=== PATIENT | male | born 1945 | race Caucasian/White ===

== ENCOUNTER → 2018-02-03 08:50 | Outpatient (CLI) | payer MEDICARE, OTHER, MEDICAID, SELFPAY | PROVIDERS: PCP Family Medicine; Visit Provider Surgery | DX: R68.89 Other general symptoms and signs (principal); Z93.1 Gastrostomy status; J44.9 Chronic obstructive pulmonary disease, unspecified; Z87.891 Personal history of nicotine dependence; I10 Essential (primary) hypertension | CPT/HCPCS: 99213 ==

== ENCOUNTER → 2018-03-02 08:01 | Outpatient (BNVA) | payer MEDICARE, OTHER, SELFPAY | PROVIDERS: PCP Family Medicine; Visit Provider Urology | DX: N40.1 Benign prostatic hyperplasia with lower urinary tract symptoms (principal); R39.198 Other difficulties with micturition; Z43.0 Encounter for attention to tracheostomy; Z93.1 Gastrostomy status | CPT/HCPCS: 99213 ==

== ENCOUNTER 2018-03-04 10:55 | Outpatient (CLI) | payer MEDICARE, OTHER, SELFPAY ==
[2018-03-04 12:49] LABS: Abs Immature Grans 0.01 k/cumm (0.0-0.09); Absolute Basophil Count 0.07 k/cumm (0.0-0.2); Absolute Eosinophil Count 0.19 k/cumm (0.0-0.7); Absolute Lymphocyte Count 0.76 k/cumm (1.2-3.4); Absolute Monocyte Count 0.72 k/cumm (0.11-0.7); Absolute Neutrophil Count 5.49 k/cumm (1.2-6.7); Eosinophils % 2.6; HCT 38.4 % (40.0-50.0); Immature Grans % 0.1; Lymphocytes % 10.5; Mean Corp. HGB Concentration 31.3 g/dL (32.0-36.0); Mean Corpuscular Hemoglobin 28.2 pg (27.0-33.0); Mean Corpuscular Volume 90.1 fL (80-95); Mean Platelet Volume 11.6 fL (8.0-11.0); Monocytes % 9.9; Neutrophils % 75.9; Platelet Count 227 x1000/uL (130-400); RBC 4.26 m/cumm (4.50-6.00); RBC Distribution Width 15.8 % (11.8-14.1); White Blood Cell Count 7.24 k/cumm (4.4-10.8)
[2018-03-04 13:12] LABS: Iron 22 ug/dL (50-175)
[2018-03-04 13:31] LABS: ALT 26 U/L (12-78); AST 27 U/L (15-37); Albumin 3.3 g/dL (3.4-5.0); Alkaline Phosphatase 107 U/L (46-116); BUN 21 mg/dL (7-18); Bilirubin, Total 0.3 mg/dL (0.2-1.0); CREATININE 0.64 mg/dL (0.70-1.30); Calcium 8.4 mg/dL (8.5-10.1); Chloride 98 mmol/L (98-107); Ferritin 75 ng/mL (8-388); Glucose 99 mg/dL (70-100); Magnesium 2.1 mg/dL (1.8-2.4); Potassium 4.2 mmol/L (3.5-5.1); Sodium 137 mmol/L (136-145); Total Protein 6.8 g/dL (6.4-8.2); Vitamin B12 879 pg/mL (193-986)
--- NOTE | 2018-05-07 15:44 | RESPIRATORY ---
05/07/18-Left a VM message on Pt's home phone to f/u to see if secretions are loosening up as Pt saw TAMEKA Galarza at [facility] last week and discussed taking in more free fluid through his G-Tube, using a humidifier, wearing a bib over his stoma and wearing the trach mist collar during the day vs. only at night.
== END 2018-03-04 11:15 ==
PROVIDERS: PCP Family Medicine; Visit Provider Family Medicine
DX: T14.8XXA Other injury of unspecified body region, initial encounter (principal); Z98.890 Other specified postprocedural states; D64.9 Anemia, unspecified
CPT/HCPCS: 36415; 80053; 82607; 82728; 83540; 83735; 85025

== ENCOUNTER 2018-05-22 20:06 | Emergency (ER) | payer MEDICARE, OTHER, MEDICAID, SELFPAY ==
[2018-05-22 20:14] VITALS: BP 154/97; PULSE 80; RESP 18; TEMP 36.5; O2SAT 97
--- NOTE | 2018-05-22 20:20 | ED.GENADUL_ITS ---
Discharge Plan Disposition Patient Disposition: HOME Condition: Good Discharge Details Chief Complaint: GenMedical Clinical Impression: Tracheostomy complication, unspecified Primary Care Provider: Jackie Prasad ED Provider: Emanuel Ramirez Mcalpin Meds and New Rx's Prescriptions: Continue alfuzosin [Uroxatral] 10 mg tablet extended release 24 hr 10 mg PO DAILY Qty: 90 RF: 3 polyvinyl alcohol [Artificial Tears (polyvin alc)] 15 ML drops 1 drp OU PRN RF: 0 levothyroxine [Synthroid] 112 MCG tablet 112 mcg PO DAILY Qty: 30 RF: 3 melatonin 3 MG tablet 3 mg PO HS Qty: 90 RF: 2 ipratropium-albuterol 3 ML solution for nebulization 0.5 mg IN TID PRNQty: 3 RF: 3 citalopram 20 MG tablet 40 mg PO DAILY RF: 0 ERYTRHOMYCIN OP OIN RF: 0 ferrous sulfate 220 mg (44 mg iron)/5 mL solution 330 mg Feeding Tube BID Qty: 473 RF: 5 ropinirole 1 mg tablet 1 mg PO QID Qty: 120 RF: 2 ranitidine HCl 15 mg/mL syrup 150 mg GT DAILY Qty: 300 RF: 3 acetaminophen [Tylenol Extra Strength] 500 mg tablet 1,000 mg PO HS PRNRF: 0 gabapentin 300 mg capsule 300 mg PO HS Qty: 30 RF: 2 rosuvastatin [Crestor] 40 MG tablet 40 mg PO DAILY RF: 0 Discharge Instructions Additional Instructions: Please call the ENT clinic at [facility] Thursday for an appointment to have your TEP replaced. Return to emergency department if you have fever, cough , difficulty breathing. Referrals: [facility] [Provider Group] (ENT Clinic) Medical Decision Making Patient here after he inadvertently pulling out his TEP. He has no bleeding. He has no difficulty breathing. Saturations are normal. I reviewed his records from [facility]. I spoke and discussed his case with the ENT physician on-call at [facility]. Nothing emergent needs to be done this weekend. Patient can call for an appointment on Thursday to be seen by speech pathology and have a new TEP placed. Return to ED if he develops fever, difficulty breathing, other concerns. Continue to use G-tube and remain n.p.o. as before. Medical Records Medical records reviewed: Yes I reviewed the patient's medical records. HPI General Mode of arrival: ambulatory . Date/Time Provider Initiated Documentation: 05/22/18 20:12 . Limitations to Documentation: no limitations . Information obtained by: patient and old records reviewed . HPI Narrative: Patient presents to ED after accidentally pulling out his tracheo -esophageal prosthesis. He is having no difficulty breathing. There is no significant bleeding. This has been in for some time and is changed about every 6 months by speech pathology at [facility]. He has not previously had any incidents like this. It was not sure what to do and came in for evaluation. Related Data Home Medications Medication Instructions Recorded Confirmed polyvinyl alcohol [Artificial 1 drp OU PRN 11/18/12 05/22/18 Tears (polyvin alc)] levothyroxine [Synthroid] 112 mcg PO DAILY #30 tab 04/10/17 05/22/18 rosuvastatin [Crestor] 40 mg PO DAILY 08/11/17 05/22/18 melatonin 3 mg PO HS #90 tab-cap 08/13/17 05/22/18 ipratropium-albuterol 0.5 mg IN TID PRN #3 box 01/11/18 05/22/18 Erytrhomycin Op Oin 02/05/18 04/07/18 citalopram 40 mg PO DAILY tab-cap 02/05/18 05/22/18 ferrous sulfate 220 mg (44 mg 330 mg FEEDING TUBE BID #473 ml 02/23/18 05/22/18 iron)/5 mL oral solution ropinirole 1 mg tablet 1 mg PO QID #120 tab-cap 03/01/18 05/22/18 alfuzosin ER 10 mg tablet,extended 10 mg PO DAILY #90 tab-cap 03/02/18 05/22/18 release 24 hr ranitidine 15 mg/mL syrup 150 mg GT DAILY #300 ml 03/24/18 05/22/18 acetaminophen 500 mg tablet 1,000 mg PO HS PRN tab 04/05/18 05/22/18 gabapentin 300 mg capsule 300 mg PO HS #30 cap 04/20/18 05/22/18 Previous Rx's Medication Instructions Recorded levothyroxine [Synthroid] 112 mcg PO DAILY #30 tab 04/10/17 melatonin 3 mg PO HS #90 tab-cap 08/13/17 ferrous sulfate 220 mg (44 mg 330 mg FEEDING TUBE BID #473 ml 02/23/18 iron)/5 mL oral solution ropinirole 1 mg tablet 1 mg PO QID #120 tab-cap 03/01/18 alfuzosin ER 10 mg tablet,extended 10 mg PO DAILY #90 tab-cap 03/02/18 release 24 hr ranitidine 15 mg/mL syrup 150 mg GT DAILY #300 ml 03/24/18 gabapentin 300 mg capsule 300 mg PO HS #30 cap 04/20/18 Allergies Allergy/AdvReac Type Severity Reaction Status Date / Time pollen extracts Allergy Mild Unverified 05/22/18 20:17 Tetracyclines Allergy Unknown SKIN RASH Unverified 05/22/18 20:17 General Stated Complaint: GenMedical CHER: 4 Review of Systems Constitutional Denies chills and Denies fever(s) ENT Denies dysphagia, Denies neck pain and Denies odynophagia Cardiovascular Denies dyspnea Respiratory Denies cough and Denies dyspnea Gastrointestinal Denies dysphagia and Denies odynophagia Musculoskeletal Denies neck pain PFSH CAD (coronary artery disease) (Chronic) Alcohol abuse (Inactive) Tobacco use (Inactive) Anxiety COPD (chronic obstructive pulmonary disease) Depression Hyperlipemia Hypertension Hypothyroidism Laryngeal cancer Post herpetic neuralgia Colonoscopy - MAC (12/22/16) EGD - MAC (07/06/17) PROCEDURES Medical History CAD (coronary artery disease) (Chronic) Alcohol abuse (Inactive) Tobacco use (Inactive) Anxiety COPD (chronic obstructive pulmonary disease) Depression Hyperlipemia Hypertension Hypothyroidism Laryngeal cancer Post herpetic neuralgia Social History Smoking/Tobacco Use Status: Former Tobacco Use Surgical History Colonoscopy - MAC (12/22/16) EGD - MAC (07/06/17) PROCEDURES Social History Smoking/Tobacco Use Status: Former Tobacco Use Exam Const General: cooperative, comfortable and no acute distress Orientation: alert and oriented x3 HENMT Head: normocephalic and atraumatic Neck Neck: full ROM and supple Other: Tracheostomy stoma present without bleeding. Minimal secretions present. Resp Effort & Inspection: normal respiratory effort Neuro General: alert, oriented x3, no focal motor deficits and CN's II-XI intact bilaterally Course Vital Signs Temperature 97.7 F 05/22/18 20:14 Pulse 80 05/22/18 20:14 Respiratory Rate 18 05/22/18 20:14 Blood Pressure 154/97 H 05/22/18 20:14 Pulse Oximetry 97 05/22/18 20:14 Temperature 97.7 F 05/22/18 20:14 Temperature Source Temporal Artery Scan 05/22/18 20:14 Pulse 80 05/22/18 20:14 Respiratory Rate 18 05/22/18 20:14 Respiratory Effort Non-Labored 05/22/18 20:14 Blood Pressure 154/97 H 05/22/18 20:14 Pulse Oximetry 97 05/22/18 20:14 Oxygen Delivery Method Room Air 05/22/18 20:14 Oxygen Flow Rate 0 05/22/18 20:14 Pain Level 0 05/22/18 20:14
[2018-05-22 21:19] VITALS: BP 154/97; PULSE 80; RESP 18; TEMP 36.5; O2SAT 97
== END 2018-05-22 21:20 | disposition home or self-care (01) ==
PROVIDERS: Emergency Provider Emergency Medicine; PCP Family Medicine
DX: J95.03 Malfunction of tracheostomy stoma (principal); C32.9 Malignant neoplasm of larynx, unspecified; Z93.0 Tracheostomy status; Z93.1 Gastrostomy status; J44.9 Chronic obstructive pulmonary disease, unspecified; Z87.891 Personal history of nicotine dependence; I10 Essential (primary) hypertension
CPT/HCPCS: 99283; 99282

== ENCOUNTER 2018-05-27 12:42 | Emergency (ER) | payer MEDICARE, MEDICAID, OTHER, SELFPAY ==
[2018-05-27 13:01] VITALS: BP 161/91; PULSE 95; TEMP 36.9; O2SAT 95
--- NOTE | 2018-05-27 13:29 | DI.RAD_ITS ---
SYMPTOMS/DIAGNOSIS: KNOWN PNEUMONIA, CONTINUED COUGH CHEST X-RAY, PORTABLE AP VIEW: Comparison is 12/09/17. The heart size is within normal limits. There is calcification and tortuosity of the thoracic aorta. There is an infiltrate seen in the right lower lobe. There are increased lung markings seen in the left lung base. There is underlying pulmonary fibrosis. No gross effusions or pneumothoraces are identified. The bones appear intact. IMPRESSION: Bilateral basilar pneumonia.
--- NOTE | 2018-05-27 13:59 | NUR.NOTE ---
Nursing Note: RT in patient's room suctioning at this time. no acute resp distress
[2018-05-27 14:00] VITALS: RESP 22; O2SAT 96
--- NOTE | 2018-05-27 15:21 | ED.GENADUL_ITS ---
Discharge Plan Disposition Patient Disposition: HOME Condition: Good Discharge Details Chief Complaint: RespSymp Clinical Impression: History of radical laryngectomy, Complication of tracheostomy Primary Care Provider: Jackie Prasad ED Provider: Francisco Lindsey Home Meds and New Rx's Prescriptions: No Action alfuzosin [Uroxatral] 10 mg tablet extended release 24 hr 10 mg PO DAILY Qty: 90 RF: 3 polyvinyl alcohol [Artificial Tears (polyvin alc)] 15 ML drops 1 drp OU PRN RF: 0 levothyroxine [Synthroid] 112 MCG tablet 112 mcg PO DAILY Qty: 30 RF: 3 melatonin 3 MG tablet 3 mg PO HS Qty: 90 RF: 2 ipratropium-albuterol 3 ML solution for nebulization 0.5 mg IN TID PRNQty: 3 RF: 3 citalopram 20 MG tablet 40 mg PO DAILY RF: 0 ERYTRHOMYCIN OP OIN RF: 0 ferrous sulfate 220 mg (44 mg iron)/5 mL solution 330 mg Feeding Tube BID Qty: 473 RF: 5 ropinirole 1 mg tablet 1 mg PO QID Qty: 120 RF: 2 ranitidine HCl 15 mg/mL syrup 150 mg GT DAILY Qty: 300 RF: 3 acetaminophen [Tylenol Extra Strength] 500 mg tablet 1,000 mg PO HS PRNRF: 0 gabapentin 300 mg capsule 300 mg PO HS Qty: 30 RF: 2 rosuvastatin [Crestor] 40 MG tablet 40 mg PO DAILY RF: 0 Discharge Instructions Additional Instructions: Please continue to use your humidifier. Use it every night, and that every 4-6 hours at home. If you notice any return of the collections of secretions please return immediately to have these removed if you do not feel comfortable removing them yourself. Please follow-up with your paint striping machine operator as soon as possible for reassessment. if you notice any worsening of your symptoms, or any new symptoms such as vomiting, diarrhea, fever, chills, shortness of breath, chest pain, numbness, weakness, or fainting , please return immediately to the emergency department for reevaluation. Please follow up with your primary care provider as soon as possible for reassessment and reevaluation. As always, it was a pleasure participating in your medical care today. Referrals: Jackie Prasad MD [Primary Care Provider] - Discharge Data Discharge Date/Time-TO BE ENTERED AT DEPARTURE: 05/27/18 15:36 Medical Decision Making This is a pleasant 73-year-old male who presents today for evaluation of tracheostomy complication. Patient had a flutter valve placed at [facility] a week ago, and then after it fell out it was replaced again a few days ago. He was diagnosed with pneumonia at that time it started on Augmentin. Systemically he feels that he is doing very well, his cough has been improving with no fever or chills, however he does note some notable hard secretions forming at the site of this open tracheostomy site. Physical exam demonstrates mild crackles in his bases bilaterally, but no other significant abnormalities. The tracheostomy hardened secretions were moistened with saline, and then personally extracted with myself and the respiratory therapist at bedside. A very large hard eschar of secretions were removed from the tracheostomy site. After this the patient had complete resolution of his symptoms. Chest x-ray does show continued pneumonia, however clinically the patient is doing very well with no evidence of tachycardia, hypoxemia, or tachypnea. I feel that he needs to continue on his antibiotic. His main issue was the secretion buildup, and this is been removed and resolved. The patient feels well, and is asking to go home. Patient will be discharged home with close follow-up with his primary care provider. We discussed red flags which to return and the patient understands. I have extensively reviewed the treatment plan and discharge instructions with the patient. I have addressed all patient concerns at this time. The patient was made aware of what symptoms to monitor for that would warrant a return to the emergency department. Discussed the plan with the patient, they demonstrate verbal understanding and agreement with our assessment and plan at this time. X-RAY, PORTABLE AP VIEW: Comparison is 12/09/17. The heart size is within normal limits. There is calcification and tortuosity of the thoracic aorta. There is an infiltrate seen in the right lower lobe. There are increased lung markings seen in the left lung base. There is underlying pulmonary fibrosis. No gross effusions or pneumothoraces are identified. The bones appear intact. IMPRESSION: Bilateral basilar pneumonia. Ordered By: Francisco Lindsey DO CC: HPI General Date/Time Provider Initiated Documentation: 05/27/18 13:13 . HPI Narrative: This is a very pleasant 73-year-old male with a past medical history of COPD, abdominal aneurysm, and throat cancer 10 years ago for which she received radiation at that time, but nothing since then. Unfortunately secondary to this he has had tracheal stenosis, requiring a tracheostomy. Patient has a one-way flutter valve in his trach to prevent aspiration, this was placed at [facility] roughly 1 week ago, unfortunately it fell out and was replaced again 4 days ago. At that time a chest x-ray was performed and there was concern for potential pneumonia, and he was started on Augmentin. Since starting the antibiotic he has been feeling much better however over the last 24-48 hours he has noticed secretions in his upper tracheal area, and has had some difficulty breathing secondary to this. Secretions have hardened, and she has been unable to remove them. Aside for the complication with this the patient denies any other symptoms. He denies any fevers, chills, chest pain, shortness of breath, numbness tingling or weakness. He states that he is actually feeling much better in regards to his lungs with his cough and systemic symptoms after being started on the antibiotic. He denies any other modifying factors. He denies any other complaints at this time. Related Data Home Medications Medication Instructions Recorded Confirmed polyvinyl alcohol [Artificial 1 drp OU PRN 11/18/12 05/22/18 Tears (polyvin alc)] levothyroxine [Synthroid] 112 mcg PO DAILY #30 tab 04/10/17 05/22/18 rosuvastatin [Crestor] 40 mg PO DAILY 08/11/17 05/22/18 melatonin 3 mg PO HS #90 tab-cap 08/13/17 05/22/18 ipratropium-albuterol 0.5 mg IN TID PRN #3 box 01/11/18 05/22/18 Erytrhomycin Op Oin 02/05/18 04/07/18 citalopram 40 mg PO DAILY tab-cap 02/05/18 05/22/18 ferrous sulfate 220 mg (44 mg 330 mg FEEDING TUBE BID #473 ml 02/23/18 05/22/18 iron)/5 mL oral solution ropinirole 1 mg tablet 1 mg PO QID #120 tab-cap 03/01/18 05/22/18 alfuzosin ER 10 mg tablet,extended 10 mg PO DAILY #90 tab-cap 03/02/18 05/22/18 release 24 hr ranitidine 15 mg/mL syrup 150 mg GT DAILY #300 ml 03/24/18 05/22/18 acetaminophen 500 mg tablet 1,000 mg PO HS PRN tab 04/05/18 05/22/18 gabapentin 300 mg capsule 300 mg PO HS #30 cap 04/20/18 05/22/18 Previous Rx's Medication Instructions Recorded levothyroxine [Synthroid] 112 mcg PO DAILY #30 tab 04/10/17 melatonin 3 mg PO HS #90 tab-cap 08/13/17 ferrous sulfate 220 mg (44 mg 330 mg FEEDING TUBE BID #473 ml 02/23/18 iron)/5 mL oral solution ropinirole 1 mg tablet 1 mg PO QID #120 tab-cap 03/01/18 alfuzosin ER 10 mg tablet,extended 10 mg PO DAILY #90 tab-cap 03/02/18 release 24 hr ranitidine 15 mg/mL syrup 150 mg GT DAILY #300 ml 03/24/18 gabapentin 300 mg capsule 300 mg PO HS #30 cap 04/20/18 Allergies Allergy/AdvReac Type Severity Reaction Status Date / Time pollen extracts Allergy Mild Unverified 05/22/18 20:17 Tetracyclines Allergy Unknown SKIN RASH Unverified 05/22/18 20:17 General Stated Complaint: RespSymp CHER: 2 Review of Systems Review of Systems All systems reviewed & are unremarkable except as noted in HPI and below PFSH Social History Smoking/Tobacco Use Status: Former Tobacco Use Exam Narrative Exam Narrative: 1.Const: Well-nourished, Well-developed, appearing stated age 2.Eyes: PERRL, no conjunctival injection, and symmetrical lids. 3.ENT: Atraumatic external nose and ears. Moist MM. Neck: Symmetric, trachea midline, No thyromegaly. Tracheostomy site in place, one with flutter valve in place, notable secretion eschar is present in the trachea, causing minimal obstruction. No active bleeding, no other signs of abnormalities. 4.CVS: +S1/S2, No murmurs or gallops. Peripheral pulses 2+ and equal in all extremities. Brisk capillary refill in all extremities. 5.RESP: Unlabored respiratory effort. Mild crackles in the bases bilaterally. 6.GI: Soft, Nontender/Nondistended, No hepatosplenomegaly. No guarding or rebound. 7.MSK: Normocephalic/Atraumatic, Extremities w/o deformity or ttp No cyanosis or clubbing, Normal movement of all extremities 8.Skin: Warm, Dry. No rashes or lesions. 9.Neuro: manager of radiology II-XII grossly intact. Sensation grossly intact, no focal neurologic deficits. 10.Psych: (AAO) x3. Appropriate mood and affect Course Vital Signs Temperature 36.9 C 05/27/18 13:01 Pulse 95 H 05/27/18 13:01 Blood Pressure 161/91 H 05/27/18 13:01 Pulse Oximetry 95 05/27/18 13:01 Temperature 36.9 C 05/27/18 13:01 Temperature Source Skin 05/27/18 13:01 Pulse 95 H 05/27/18 13:01 Respiratory Rate 22 05/27/18 14:00 Blood Pressure 161/91 H 05/27/18 13:01 Blood Pressure Position Sitting 05/27/18 13:01 Pulse Oximetry 96 05/27/18 14:00 Oxygen Delivery Method Room Air 05/27/18 14:00 Oxygen Flow Rate 0 05/27/18 14:00 Pain Level 4 05/27/18 13:01 Lab/Test Results Lab/Test Results: 05/27/18 14:30 Sputum Sputum Culture - Pending 05/27/18 14:30 Sputum Gram Stain - Pending
[2018-05-27 15:30] VITALS: O2SAT 97
--- NOTE | 2018-05-29 11:32 | W.ED.FU ---
I received sputum culture reported from his recent visit on 05/27/2018 growing few gram-negative rods and MRSA that is sensitive to Bactrim, linezolid and vancomycin. Patient seen on 05/27/[address] Lindsey for tracheostomy plug. Hard secretions were removed from his tracheostomy site. Patient was noted to have significant improvement in the emergency department. He was also noted to have pneumonia on chest x-ray that was previously diagnosed and being [place] with [place] [facility] [place] it was noted that PNA clinically improving on antiobitic. I called and spoke with the marketing analytics analyst termite control servicer at [facility] Dr. Sung and reviewed recent ED medical record with him. He was able to review [facility] [place]. He advised that if patient is clinically improving, he would not recommend starting additional antibiotics at this time. Otherwise, if not improving, he recommended starting bactrim. I called patient at and left voice msg to call ED. I called and left voice msg to call ED.
--- NOTE | 2018-05-29 11:38 | ED.FU.B_ITS ---
I received sputum culture reported from his recent visit on 05/27/2018 growing few gram-negative rods and MRSA that is sensitive to Bactrim, linezolid and vancomycin. Patient seen on 05/27/[address] Lindsey for tracheostomy plug. Hard secretions were removed from his tracheostomy site. Patient was noted to have significant improvement in the emergency department. He was also noted to have pneumonia on chest x-ray that was previously diagnosed and being treated with Augmentin from [facility] [place] - it was noted that PNA clinically improving on antiobitic. I called and spoke with the revenue accountant operational intelligence officer at [facility] Dr. Sung and reviewed recent ED medical record with him. He was able to review [facility] medical record. He advised that if patient is clinically improving, he would not recommend starting additional antibiotics at this time. Otherwise, if not improving, he recommended starting bactrim. I called patient at and left voice msg to call ED. I called and left voice msg to call ED.
--- NOTE | 2018-05-29 11:43 | W.ED.FU ---
Spoke with patient. He notes symptoms much improved. Still has secretions but now much thinner. Plan to start bactrim. Prescription called into pharmacy [facility] in [place]. Patient advised to follow-up with his pcp esper[facility].
--- NOTE | 2018-05-29 11:45 | ED.FU.B_ITS ---
Spoke with patient. He notes symptoms much improved. Still has secretions but now much thinner. Plan to start bactrim. Prescription called into pharmacy [facility] in [place]. Patient advised to follow-up with his pcp esper[facility].
== END 2018-05-27 15:36 | disposition home or self-care (01) ==
PROVIDERS: Emergency Provider Student in an Organized Health Care Education/Training Program; PCP Family Medicine
DX: J95.09 Other tracheostomy complication (principal); J18.9 Pneumonia, unspecified organism; J44.9 Chronic obstructive pulmonary disease, unspecified; Z87.891 Personal history of nicotine dependence
CPT/HCPCS: 87077; 99283; 71045; 87070; 87186; 87205

== ENCOUNTER 2018-06-12 13:46 | Emergency (ER) | payer MEDICARE, OTHER, MEDICAID, SELFPAY ==
[2018-06-12 13:54] VITALS: BP 151/88; PULSE 83; RESP 18; TEMP 37; O2SAT 96
--- NOTE | 2018-06-12 14:06 | ED.GENADUL_ITS ---
Discharge Plan Disposition Patient Disposition: HOME Condition: Improving Discharge Details Chief Complaint: GenMedical Clinical Impression: Malfunction of gastrostomy tube Primary Care Provider: Jackie Prasad ED Provider: Anders Ivy Home Meds and New Rx's Prescriptions: Continued alfuzosin [Uroxatral] 10 mg tablet extended release 24 hr 10 mg PO DAILY Qty: 90 RF: 3 sildenafil [Viagra] 25 mg tablet 25 mg PO DAILY PRN (Reason: sexual activity) Qty: 10 RF: 0 polyvinyl alcohol [Artificial Tears (polyvin alc)] 15 ML drops 1 drp OU PRN RF: 0 melatonin 3 MG tablet 3 mg PO HS Qty: 90 RF: 2 ipratropium-albuterol 3 ML solution for nebulization 0.5 mg IN TID PRNQty: 3 RF: 3 ERYTRHOMYCIN OP OIN RF: 0 ferrous sulfate 220 mg (44 mg iron)/5 mL solution 330 mg Feeding Tube BID Qty: 473 RF: 5 ranitidine HCl 15 mg/mL syrup 150 mg GT DAILY Qty: 300 RF: 3 acetaminophen [Tylenol Extra Strength] 500 mg tablet 1,000 mg PO HS PRNRF: 0 gabapentin 300 mg capsule 300 mg PO HS Qty: 30 RF: 2 citalopram 20 mg tablet 40 mg PO DAILY Qty: 60 RF: 2 levothyroxine [Synthroid] 112 mcg tablet 112 mcg PO DAILY Qty: 30 RF: 3 ropinirole 1 mg tablet 1 mg PO QID Qty: 120 RF: 2 rosuvastatin [Crestor] 40 mg tablet 40 mg PO DAILY Qty: 30 RF: 2 Discharge Instructions Additional Instructions: Follow-up in general surgery clinic on Thursday as planned. Continue all regular medications and tube feedings Medical Decision Making 73-year-old male who is dependent on G-tube for his feeds and lesions. The end of the device was dislodged at home today and he presents to the ED. He has a follow-up planned with Dr. Bal on Thursday Replaced the end of the patients G-tube and successfully flushed with Mariel syringe. Patient stable for discharge with follow-up in surgery clinic on Thursday as planned HPI General Mode of arrival: ambulatory . Date/Time Provider Initiated Documentation: 06/12/18 14:01 . Limitations to Documentation: no limitations . Information obtained by: patient and family . History of Present Illness 73 year old M presents to the emergency department with the chief complaint of Feeding tube Fell off and I am dependent on it, and it has been constant. No relieving factors improve symptom(s), No exacerbating factors reported . Patient notes no other symptoms.. Patient did receive the following treatments prior to arrival, none Related Data Home Medications Medication Instructions Recorded Confirmed polyvinyl alcohol [Artificial 1 drp OU PRN 11/18/12 06/12/18 Tears (polyvin alc)] melatonin 3 mg PO HS #90 tab-cap 08/13/17 06/12/18 ipratropium-albuterol 0.5 mg IN TID PRN #3 box 01/11/18 06/12/18 Erytrhomycin Op Oin 02/05/18 04/07/18 ferrous sulfate 220 mg (44 mg 330 mg FEEDING TUBE BID #473 ml 02/23/18 06/12/18 iron)/5 mL oral solution alfuzosin ER 10 mg tablet,extended 10 mg PO DAILY #90 tab-cap 03/02/18 06/12/18 release 24 hr ranitidine 15 mg/mL syrup 150 mg GT DAILY #300 ml 03/24/18 06/12/18 acetaminophen 500 mg tablet 1,000 mg PO HS PRN tab 04/05/18 06/12/18 gabapentin 300 mg capsule 300 mg PO HS #30 cap 04/20/18 06/12/18 sildenafil 25 mg tablet 25 mg PO DAILY PRN #10 tab 05/28/18 06/12/18 citalopram 20 mg tablet 40 mg PO DAILY #60 tab-cap 06/10/18 06/12/18 levothyroxine 112 mcg tablet 112 mcg PO DAILY #30 tab 06/10/18 06/12/18 ropinirole 1 mg tablet 1 mg PO QID #120 tab-cap 06/10/18 06/12/18 rosuvastatin 40 mg tablet 40 mg PO DAILY #30 tab 06/10/18 06/12/18 Previous Rx's Medication Instructions Recorded melatonin 3 mg PO HS #90 tab-cap 08/13/17 ferrous sulfate 220 mg (44 mg 330 mg FEEDING TUBE BID #473 ml 02/23/18 iron)/5 mL oral solution alfuzosin ER 10 mg tablet,extended 10 mg PO DAILY #90 tab-cap 03/02/18 release 24 hr ranitidine 15 mg/mL syrup 150 mg GT DAILY #300 ml 03/24/18 gabapentin 300 mg capsule 300 mg PO HS #30 cap 04/20/18 sildenafil 25 mg tablet 25 mg PO DAILY PRN #10 tab 05/28/18 citalopram 20 mg tablet 40 mg PO DAILY #60 tab-cap 06/10/18 levothyroxine 112 mcg tablet 112 mcg PO DAILY #30 tab 06/10/18 ropinirole 1 mg tablet 1 mg PO QID #120 tab-cap 06/10/18 rosuvastatin 40 mg tablet 40 mg PO DAILY #30 tab 06/10/18 Allergies Allergy/AdvReac Type Severity Reaction Status Date / Time pollen extracts Allergy Mild Unverified 05/22/18 20:17 Tetracyclines Allergy Unknown SKIN RASH Unverified 05/22/18 20:17 General Stated Complaint: GenMedical CHER: 4 PFS Social History Smoking/Tobacco Use Status: Former Tobacco Use Exam Narrative Exam Narrative: General: patient is pleasant awake alert and oriented x3. Pulmonary:no evidence of respiratory distress, speaking in full sentence Abdomen :G-tube in place, No abdominal tenderness. Psychiatric: Speech fluent, affect normal Course Vital Signs Temperature 37 C 06/12/18 13:54 Pulse 83 06/12/18 13:54 Respiratory Rate 18 06/12/18 13:54 Blood Pressure 151/88 H 06/12/18 13:54 Pulse Oximetry 96 06/12/18 13:54 Temperature 37 C 06/12/18 13:54 Temperature Source Temporal Artery Scan 06/12/18 13:54 Pulse 83 06/12/18 13:54 Respiratory Rate 18 06/12/18 13:54 Respiratory Effort Non-Labored 06/12/18 13:59 Blood Pressure 151/88 H 06/12/18 13:54 Blood Pressure Position Sitting 06/12/18 13:54 Pulse Oximetry 96 06/12/18 13:54 Oxygen Delivery Method Room Air 06/12/18 13:54 Oxygen Flow Rate 0 06/12/18 13:54 Pain Level 0 06/12/18 13:54
== END 2018-06-12 16:49 | disposition home or self-care (01) ==
PROVIDERS: Emergency Provider Emergency Medicine; PCP Family Medicine
DX: K94.23 Gastrostomy malfunction (principal); Z43.1 Encounter for attention to gastrostomy; J44.9 Chronic obstructive pulmonary disease, unspecified; I10 Essential (primary) hypertension
CPT/HCPCS: 99282

== ENCOUNTER → 2018-06-14 12:49 | Outpatient (BNVA) | payer MEDICARE, OTHER, MEDICAID, SELFPAY | PROVIDERS: PCP Family Medicine; Referring Provider Family Medicine; Visit Provider Surgery | DX: K94.23 Gastrostomy malfunction (principal) | CPT/HCPCS: 99213 ==

== ENCOUNTER 2018-06-25 06:10 | Day surgery (SDC) | payer MEDICARE, OTHER, MEDICAID, SELFPAY ==
[2018-06-25 06:34] VITALS: BP 156/96; PULSE 86; RESP 24; TEMP 36.9; O2SAT 92
[2018-06-25] MEDS: Lactated Ringers 1,000 ML 30 ML IV (06:57)
--- NOTE | 2018-06-25 07:14 | DI.RAD_ITS ---
SYMPTOM/DIAGNOSIS: RANDY PLACEMENT C-ARM: Fluoroscopy Time: 19.6 seconds Fluoroscopy was provided in the OR. Please see procedure note for details.
--- NOTE | 2018-06-25 08:00 | W.PM.OP ---
Date of service: 06/25/18 Time of Service: 08:00 Operative Note DATE OF PROCEDURE: 06/25/18 PRE-OP DIAGNOSIS: dysfunctional feeding tube POST-OP DIAGNOSIS: same PROCEDURE: feeding tube exchange over guidewire with radiographic confirmation SURGEON: Elia Mcdonald III ANESTHESIA: local ESTIMATED BLOOD LOSS: 0 COMPLICATIONS: None Implants: Nasim tube Indications: old tube was leaking and dysfunctional Procedure Description: Patient was seen and examined preoperatively and tube was found to be dysfunctional with falls as well as inability to use for feeding purposes. Patient was given the risk benefits and alternatives and consent was obtained. Patient was brought to the operating room placed in the operative table supine fashion. Patient underwent local anesthesia and the area was prepped and draped in a sterile fashion. A thorough timeout was done before procedure started. Tube exchange Patient had the balloon deflated and a guidewire placed to the proximal aspect into the stomach the tube was removed and on removal was revealed that was a PEG tube which required a little more force to remove at the time but the guidewire stayed in place the tube was removed in total and the Nasim tube was placed over the guidewire and into the abdomen the balloon was insufflated with 6 cc of air. The tube itself was then connected to the tubing and a Omnipaque diluted solution was injected under fluoroscopy to confirm that it was in the stomach. Patient tolerated procedure well a thorough debriefing was done post procedure patient was with the PACU and then home upon full recovery from anesthesia. Patient had a significant other that was explained and taught how to use the tube by nursing and myself.
--- NOTE | 2018-06-25 08:10 | W.PM.DSUDISC ---
Discharge Plan Disposition Patient Disposition: HOME Condition: Stable Discharge Details Reason For Visit: placement of feeding tube Attending Provider: Elia Mcdonald III Primary Care Provider: Jackie Prasad Home Meds and New Rx's Prescriptions: Continued alfuzosin [Uroxatral] 10 mg tablet extended release 24 hr 10 mg PO DAILY Qty: 90 RF: 3 sildenafil [Viagra] 25 mg tablet 25 mg PO DAILY PRN (Reason: sexual activity) Qty: 10 RF: 0 melatonin 3 MG tablet 3 mg PO HS Qty: 90 RF: 2 ipratropium-albuterol 3 ML solution for nebulization 0.5 mg IN TID PRNQty: 3 RF: 3 ERYTRHOMYCIN OP OIN RF: 0 ferrous sulfate 220 mg (44 mg iron)/5 mL solution 330 mg Feeding Tube BID Qty: 473 RF: 5 acetaminophen [Tylenol Extra Strength] 500 mg tablet 1,000 mg PO .1600, 2200 PRNRF: 0 gabapentin 300 mg capsule 300 mg PO HS Qty: 30 RF: 2 levothyroxine [Synthroid] 112 mcg tablet 112 mcg PO DAILY Qty: 30 RF: 3 azithromycin 250 mg tablet 250 - 500 mg PO DAILY Qty: 6 RF: 0 ropinirole 1 mg Tablet 1 mg PO .2200 HS RF: 0 ropinirole 1 mg tablet 1 mg PO BID RF: 0 citalopram 20 mg tablet 40 mg PO HS RF: 0 ranitidine HCl 15 mg/mL syrup 2 tsp GT DAILY RF: 0 rosuvastatin [Crestor] 40 mg tablet 40 mg PO .2200 RF: 0 Discharge Instructions Additional Instructions: pt and the significant other was taught haow to use the tube Referrals: Elia Mcdonald III, DO [OSTEOPATHIC DOCTOR] - 06/28/18 10:00 am Activity:: Activity as Tolerated Diet:: As Tolerated Discharge Orders Discharge Orders: Discharge Order (Routine); Ordered 06/25/18 Ordered By: Elia Mcdonald III DS: Diagnosis Discharge Diagnosis (1) Feeding tube dysfunction: Status: Acute
[2018-06-25] MEDS: Omnipaque 300 MG/ML 50 ML BTL (08:13)
== END 2018-06-25 08:47 | disposition home or self-care (01) ==
PROVIDERS: PCP Family Medicine; Visit Provider Surgery
PROC: 0DH63UZ Insertion of Feeding Device into Stomach, Percutaneous Approach (ICD-10-PCS; CPT 43246; principal; 2018-06-25 07:30)
DX: Z43.1 Encounter for attention to gastrostomy (principal); K94.23 Gastrostomy malfunction; Z90.02 Acquired absence of larynx; Z85.21 Personal history of malignant neoplasm of larynx; I10 Essential (primary) hypertension; K21.9 Gastro-esophageal reflux disease without esophagitis; J44.9 Chronic obstructive pulmonary disease, unspecified
CPT/HCPCS: 49450; 76000; C1781; Q9967

== ENCOUNTER 2018-06-26 01:35 | Emergency (ER) | payer MEDICARE, OTHER, MEDICAID, SELFPAY ==
[2018-06-26 01:39] VITALS: BP 165/96; PULSE 70; RESP 20; TEMP 36.5; O2SAT 93
--- NOTE | 2018-06-26 01:52 | DI.RAD_ITS ---
SYMPTOM/DIAGNOSIS: FEEDING TUBE PLACEMENT. SUPINE ABDOMEN: A feeding tube is seen in the upper abdomen. Images were obtained before and after introduction of contrast in to the feeding tube. The exam is somewhat limited by pre-existing contrast in the colon. The post contrast image shows contrast in the stomach and duodenum. There is no gross evidence of extravasation, however, this cannot be entirely excluded on this single AP view.
--- NOTE | 2018-06-26 01:56 | W.ED.GENAD ---
Discharge Plan Disposition Patient Disposition: HOME Condition: Good Discharge Details Chief Complaint: Abd Prob Clinical Impression: Dislodged gastrostomy tube Primary Care Provider: Jackie Prasad ED Provider: Emanuel Ramirez [place] Meds and New Rx's Prescriptions: Continued alfuzosin [Uroxatral] 10 mg tablet extended release 24 hr 10 mg PO DAILY Qty: 90 RF: 3 sildenafil [Viagra] 25 mg tablet 25 mg PO DAILY PRN (Reason: sexual activity) Qty: 10 RF: 0 melatonin 3 MG tablet 3 mg PO HS Qty: 90 RF: 2 ipratropium-albuterol 3 ML solution for nebulization 0.5 mg IN TID PRNQty: 3 RF: 3 ERYTRHOMYCIN OP OIN RF: 0 ferrous sulfate 220 mg (44 mg iron)/5 mL solution 330 mg Feeding Tube BID Qty: 473 RF: 5 acetaminophen [Tylenol Extra Strength] 500 mg tablet 1,000 mg PO .1600, 2200 PRNRF: 0 gabapentin 300 mg capsule 300 mg PO HS Qty: 30 RF: 2 levothyroxine [Synthroid] 112 mcg tablet 112 mcg PO DAILY Qty: 30 RF: 3 azithromycin 250 mg tablet 250 - 500 mg PO DAILY Qty: 6 RF: 0 ropinirole 1 mg Tablet 1 mg PO .2200 HS RF: 0 ropinirole 1 mg tablet 1 mg PO BID RF: 0 citalopram 20 mg tablet 40 mg PO HS RF: 0 ranitidine HCl 15 mg/mL syrup 2 tsp GT DAILY RF: 0 rosuvastatin [Crestor] 40 mg tablet 40 mg PO .2200 RF: 0 Discharge Instructions Additional Instructions: X-ray confirms tube is in correct position. You may begin using it again. Return to ED for problems. Referrals: Jackie Prasad MD [Primary Care Provider] - Medical Decision Making The tract has been long-standing. The Corky-mullins tube itself is new. They brought it in. It has been cleaned. Placed a Denny to keep the tract open while the tube was cleaned. Corky-mullins tube balloon checked and functioning. Tube placed and ballooned blown up without problem. X-ray with contrast ordered to evaluate placement. X-ray with contrast confirms proper placement. Patient discharged home. HPI General Mode of arrival: ambulatory. Date/Time Provider Initiated Documentation: 06/26/18 01:40. Limitations to Documentation: no limitations. Information obtained by: patient. HPI Narrative: Patient presents because his corky-mullins tube came out. He gets tube feeds through this on a regular basis. He has no other complaint of. Related Data Home Medications Medication Instructions Recorded Confirmed melatonin 3 mg PO HS #90 tab-cap 08/13/17 06/26/18 ipratropium-albuterol 0.5 mg IN TID PRN #3 box 01/11/18 06/26/18 Erytrhomycin Op Oin 02/05/18 06/14/18 ferrous sulfate 220 mg (44 mg 330 mg FEEDING TUBE BID #473 ml 02/23/18 06/26/18 iron)/5 mL oral solution alfuzosin ER 10 mg tablet,extended 10 mg PO DAILY #90 tab-cap 03/02/18 06/26/18 release 24 hr acetaminophen 500 mg tablet 1,000 mg PO .1600, 2200 PRN tab 04/05/18 06/26/18 gabapentin 300 mg capsule 300 mg PO HS #30 cap 04/20/18 06/26/18 sildenafil 25 mg tablet 25 mg PO DAILY PRN #10 tab 05/28/18 06/26/18 levothyroxine 112 mcg tablet 112 mcg PO DAILY #30 tab 06/10/18 06/26/18 azithromycin 250 mg tablet 250 - 500 mg PO DAILY #6 tab 06/18/18 06/26/18 citalopram 40 mg PO HS 06/23/18 06/26/18 ranitidine HCl 2 tsp GT DAILY 06/23/18 06/26/18 ropinirole 1 mg PO .2200 HS 06/23/18 06/26/18 ropinirole 1 mg PO BID 06/23/18 06/26/18 rosuvastatin [Crestor] 40 mg PO .2200 06/23/18 06/26/18 Previous Rx's Medication Instructions Recorded melatonin 3 mg PO HS #90 tab-cap 08/13/17 ferrous sulfate 220 mg (44 mg 330 mg FEEDING TUBE BID #473 ml 02/23/18 iron)/5 mL oral solution alfuzosin ER 10 mg tablet,extended 10 mg PO DAILY #90 tab-cap 03/02/18 release 24 hr gabapentin 300 mg capsule 300 mg PO HS #30 cap 04/20/18 sildenafil 25 mg tablet 25 mg PO DAILY PRN #10 tab 05/28/18 levothyroxine 112 mcg tablet 112 mcg PO DAILY #30 tab 06/10/18 azithromycin 250 mg tablet 250 - 500 mg PO DAILY #6 tab 06/18/18 Allergies Allergy/AdvReac Type Severity Reaction Status Date / Time pollen extracts Allergy Mild Verified 06/26/18 01:43 Tetracyclines Allergy Unknown SKIN RASH Verified 06/26/18 01:43 General Stated Complaint: Abd Prob CHER: 3 Review of Systems Constitutional Denies fever(s) Cardiovascular Denies chest pain and Denies dyspnea Respiratory Denies dyspnea Gastrointestinal Denies abdominal pain and Denies vomiting [facility] Social History Smoking/Tobacco Use Status: Former Tobacco Use Exam Const General: cooperative, comfortable and no acute distress Orientation: alert and oriented x3 GI Inspection: non-distended and other (gastrostomy tract in the left upper quadrant, some bleeding.) Palpation: soft, not firm and nontender Skin General skin exam: other (Some erythema and irritation around the gastrostomy site) Course Vital Signs Temperature 97.7 F 06/26/18 01:39 Pulse 70 06/26/18 01:39 Respiratory Rate 20 06/26/18 01:39 Blood Pressure 165/96 H 06/26/18 01:39 Pulse Oximetry 93 L 06/26/18 01:39 Temperature 97.7 F 06/26/18 01:39 Temperature Source Skin 06/26/18 01:39 Pulse 70 06/26/18 01:39 Respiratory Rate 20 06/26/18 01:39 Respiratory Effort Non-Labored 06/26/18 01:42 Blood Pressure 165/96 H 06/26/18 01:39 Blood Pressure Position Sitting 06/26/18 01:39 Pulse Oximetry 93 L 06/26/18 01:39 Oxygen Delivery Method Room Air 06/26/18 01:39 Oxygen Flow Rate 0 06/26/18 01:39
--- NOTE | 2018-06-26 02:03 | ED.GENADUL_ITS ---
Discharge Plan Disposition Patient Disposition: HOME Condition: Good Discharge Details Chief Complaint: Abd Prob Clinical Impression: Dislodged gastrostomy tube Primary Care Provider: Jackie Prasad ED Provider: Emanuel Ramirez [place] Meds and New Rx's Prescriptions: Continued alfuzosin [Uroxatral] 10 mg tablet extended release 24 hr 10 mg PO DAILY Qty: 90 RF: 3 sildenafil [Viagra] 25 mg tablet 25 mg PO DAILY PRN (Reason: sexual activity) Qty: 10 RF: 0 melatonin 3 MG tablet 3 mg PO HS Qty: 90 RF: 2 ipratropium-albuterol 3 ML solution for nebulization 0.5 mg IN TID PRNQty: 3 RF: 3 ERYTRHOMYCIN OP OIN RF: 0 ferrous sulfate 220 mg (44 mg iron)/5 mL solution 330 mg Feeding Tube BID Qty: 473 RF: 5 acetaminophen [Tylenol Extra Strength] 500 mg tablet 1,000 mg PO .1600, 2200 PRNRF: 0 gabapentin 300 mg capsule 300 mg PO HS Qty: 30 RF: 2 levothyroxine [Synthroid] 112 mcg tablet 112 mcg PO DAILY Qty: 30 RF: 3 azithromycin 250 mg tablet 250 - 500 mg PO DAILY Qty: 6 RF: 0 ropinirole 1 mg Tablet 1 mg PO .2200 HS RF: 0 ropinirole 1 mg tablet 1 mg PO BID RF: 0 citalopram 20 mg tablet 40 mg PO HS RF: 0 ranitidine HCl 15 mg/mL syrup 2 tsp GT DAILY RF: 0 rosuvastatin [Crestor] 40 mg tablet 40 mg PO .2200 RF: 0 Discharge Instructions Additional Instructions: X-ray confirms tube is in correct position. You may begin using it again. Return to ED for problems. Referrals: Jackie Prasad MD [Primary Care Provider] - Medical Decision Making The tract has been long-standing. The Corky-mullins tube itself is new. They brought it in. It has been cleaned. Placed a Denny to keep the tract open while the tube was cleaned. Corky-mullins tube balloon checked and functioning. Tube placed and ballooned blown up without problem. X-ray with contrast ordered to evaluate placement. X-ray with contrast confirms proper placement. Patient discharged home. HPI General Mode of arrival: ambulatory . Date/Time Provider Initiated Documentation: 06/26/18 01:40 . Limitations to Documentation: no limitations . Information obtained by: patient . HPI Narrative: Patient presents because his corky-mullins tube came out. He gets tube feeds through this on a regular basis. He has no other complaint of. Related Data Home Medications Medication Instructions Recorded Confirmed melatonin 3 mg PO HS #90 tab-cap 08/13/17 06/26/18 ipratropium-albuterol 0.5 mg IN TID PRN #3 box 01/11/18 06/26/18 Erytrhomycin Op Oin 02/05/18 06/14/18 ferrous sulfate 220 mg (44 mg 330 mg FEEDING TUBE BID #473 ml 02/23/18 06/26/18 iron)/5 mL oral solution alfuzosin ER 10 mg tablet,extended 10 mg PO DAILY #90 tab-cap 03/02/18 06/26/18 release 24 hr acetaminophen 500 mg tablet 1,000 mg PO .1600, 2200 PRN tab 04/05/18 06/26/18 gabapentin 300 mg capsule 300 mg PO HS #30 cap 04/20/18 06/26/18 sildenafil 25 mg tablet 25 mg PO DAILY PRN #10 tab 05/28/18 06/26/18 levothyroxine 112 mcg tablet 112 mcg PO DAILY #30 tab 06/10/18 06/26/18 azithromycin 250 mg tablet 250 - 500 mg PO DAILY #6 tab 06/18/18 06/26/18 citalopram 40 mg PO HS 06/23/18 06/26/18 ranitidine HCl 2 tsp GT DAILY 06/23/18 06/26/18 ropinirole 1 mg PO .2200 HS 06/23/18 06/26/18 ropinirole 1 mg PO BID 06/23/18 06/26/18 rosuvastatin [Crestor] 40 mg PO .2200 06/23/18 06/26/18 Previous Rx's Medication Instructions Recorded melatonin 3 mg PO HS #90 tab-cap 08/13/17 ferrous sulfate 220 mg (44 mg 330 mg FEEDING TUBE BID #473 ml 02/23/18 iron)/5 mL oral solution alfuzosin ER 10 mg tablet,extended 10 mg PO DAILY #90 tab-cap 03/02/18 release 24 hr gabapentin 300 mg capsule 300 mg PO HS #30 cap 04/20/18 sildenafil 25 mg tablet 25 mg PO DAILY PRN #10 tab 05/28/18 levothyroxine 112 mcg tablet 112 mcg PO DAILY #30 tab 06/10/18 azithromycin 250 mg tablet 250 - 500 mg PO DAILY #6 tab 06/18/18 Allergies Allergy/AdvReac Type Severity Reaction Status Date / Time pollen extracts Allergy Mild Verified 06/26/18 01:43 Tetracyclines Allergy Unknown SKIN RASH Verified 06/26/18 01:43 General Stated Complaint: Abd Prob CHER: 3 Review of Systems Constitutional Denies fever(s) Cardiovascular Denies chest pain and Denies dyspnea Respiratory Denies dyspnea Gastrointestinal Denies abdominal pain and Denies vomiting [facility] Social History Smoking/Tobacco Use Status: Former Tobacco Use Exam Const General: cooperative, comfortable and no acute distress Orientation: alert and oriented x3 GI Inspection: non-distended and other (gastrostomy tract in the left upper quadrant, some bleeding.) Palpation: soft, not firm and nontender Skin General skin exam: other (Some erythema and irritation around the gastrostomy site) Course Vital Signs Temperature 97.7 F 06/26/18 01:39 Pulse 70 06/26/18 01:39 Respiratory Rate 20 06/26/18 01:39 Blood Pressure 165/96 H 06/26/18 01:39 Pulse Oximetry 93 L 06/26/18 01:39 Temperature 97.7 F 06/26/18 01:39 Temperature Source Skin 06/26/18 01:39 Pulse 70 06/26/18 01:39 Respiratory Rate 20 06/26/18 01:39 Respiratory Effort Non-Labored 06/26/18 01:42 Blood Pressure 165/96 H 06/26/18 01:39 Blood Pressure Position Sitting 06/26/18 01:39 Pulse Oximetry 93 L 06/26/18 01:39 Oxygen Delivery Method Room Air 06/26/18 01:39 Oxygen Flow Rate 0 06/26/18 01:39
[2018-06-26] MEDS: Omnipaque 350 MG/ML 50 ML BTL IJ (02:33)
--- NOTE | 2018-06-26 02:56 | DI.VRAD_ITS ---
EXAM: XR Abdomen, 1 View EXAM DATE/TIME: 06/26/2018 1:54 AM CLINICAL HISTORY: 73 years old, male; Device placement; Gi device; Other: Gi tube position; Prior surgery; Surgery type: Gi tube placement TECHNIQUE: Frontal supine view of the abdomen/pelvis. COMPARISON: No relevant prior studies available. FINDINGS: Lower thorax: bilateral interstitial pattern at the lung bases. Gastrointestinal tract: See Intraperitoneal Space Finding. Intraperitoneal space: Tubing is seen overlying left hemiabdomen. Dilute contrast is seen in the distribution of the stomach and proximal small bowel. Surgical clips overlying the left hemiabdomen. Bones/joints: Degenerative changes within lumbar spine. IMPRESSION: Oral contrast is seen in the distribution of the stomach and proximal small bowel, no evidence for contrast extravasation. Dictated and Authenticated by: Alvaro Sullivan MD. Ordering:DAMIÁN Castellanos MD
== END 2018-06-26 03:10 | disposition home or self-care (01) ==
PROVIDERS: Emergency Provider Emergency Medicine; PCP Family Medicine
DX: K94.23 Gastrostomy malfunction (principal); Z93.0 Tracheostomy status; J44.9 Chronic obstructive pulmonary disease, unspecified; Z87.891 Personal history of nicotine dependence; I10 Essential (primary) hypertension
CPT/HCPCS: 43762; 74018; Q9967

== ENCOUNTER → 2018-06-28 10:01 | Outpatient (BNVA) | payer MEDICARE, OTHER, MEDICAID, SELFPAY | PROVIDERS: PCP Family Medicine; Referring Provider Family Medicine; Visit Provider Surgery | DX: Z43.1 Encounter for attention to gastrostomy (principal); Z90.02 Acquired absence of larynx; Z85.21 Personal history of malignant neoplasm of larynx | CPT/HCPCS: 99213 ==

== ENCOUNTER 2018-07-01 11:39 | Outpatient (CLI) | payer MEDICARE, OTHER, SELFPAY ==
[2018-07-01 12:44] LABS: HCT 44.2 % (40.0-50.0); HGB 14.2 g/dL (13.5-17.5); Mean Corp. HGB Concentration 32.1 g/dL (32.0-36.0); Mean Corpuscular Hemoglobin 30.5 pg (27.0-33.0); Mean Corpuscular Volume 95.1 fL (80-95); Mean Platelet Volume 11.2 fL (8.0-11.0); Platelet Count 276 x1000/uL (130-400); RBC 4.65 m/cumm (4.50-6.00); RBC Distribution Width 15.4 % (11.8-14.1); White Blood Cell Count 10.01 k/cumm (4.4-10.8)
[2018-07-01 13:28] LABS: ALT 50 U/L (12-78); AST 37 U/L (15-37); Albumin 3.6 g/dL (3.4-5.0); Alkaline Phosphatase 102 U/L (46-116); Anion Gap 4.8 mmol/L (3-11); BUN 27 mg/dL (7-18); Bilirubin, Total 0.3 mg/dL (0.2-1.0); CO2 35.2 mmol/L (21.0-32.0); CREATININE 0.68 mg/dL (0.70-1.30); Chloride 98 mmol/L (98-107); Glucose 92 mg/dL (70-100); Potassium 4.8 mmol/L (3.5-5.1); Sodium 138 mmol/L (136-145); TSH 1.53 uIU/mL (0.358-3.74); Total Protein 7.6 g/dL (6.4-8.2)
== END 2018-07-01 11:59 ==
PROVIDERS: PCP Family Medicine; Visit Provider Family Medicine
DX: E03.9 Hypothyroidism, unspecified (principal); R53.83 Other fatigue
CPT/HCPCS: 36415; 80053; 85027; 84443

== ENCOUNTER 2018-07-12 10:42 | Day surgery (SDC) | payer MEDICARE, OTHER, MEDICAID, SELFPAY ==
--- NOTE | 2018-07-11 15:27 | W.PIPPEYE ---
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 He has undergone approximately 60% tarsorrhaphy in the left eye to protect the ocular surface. He has very little useful vision in the left eye. He has developed a significant nuclear cortical and posterior subcapsular cataract in the right eye with visual acuity of 20/150. He now desires cataract surgery and attempt to improve and maximize his vision. NOTE: The Chief Complaint, HPI, Past Medical History, Past Surgical History, Family History, Social History, Medications, and complete Ophthalmic Exam with detailed Assessment and Plan have already been documented in the patient's outpatient ophthalmic record and are not covered again in detail here. 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) Cortical cataract of right eye (Acute) Nuclear sclerotic cataract of right eye (Acute) Posterior subcapsular age-related cataract, right eye (Acute) CAD (coronary artery disease) (Chronic) Alcohol abuse (Inactive) Tobacco use (Inactive) Anxiety COPD (chronic obstructive pulmonary disease) Depression Hyperlipemia Hypertension Hypothyroidism Laryngeal cancer Post herpetic neuralgia Surgical History History of tarsorrhaphy (Chronic) Status post cataract extraction and insertion of intraocular lens of left eye (Chronic 04/30/12) 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) Colonoscopy - MAC (12/22/16) EGD - MAC (07/06/17) PROCEDURES Social History Smoking/Tobacco Use Status: Former Tobacco Use Meds Home Medications Medication Instructions Recorded Confirmed Type melatonin 3 mg PO HS #90 tab-cap 08/13/17 07/08/18 Rx ipratropium-albuterol 0.5 mg IN TID PRN #3 box 01/11/18 07/08/18 History ferrous sulfate 220 mg (44 mg 330 mg FEEDING TUBE BID #473 ml 02/23/18 07/08/18 Rx iron)/5 mL oral solution alfuzosin ER 10 mg tablet,extended 10 mg PO DAILY #90 tab-cap 03/02/18 07/08/18 Rx release 24 hr acetaminophen 500 mg tablet 1,000 mg PO .1600, 2200 PRN tab 04/05/18 07/08/18 History gabapentin 300 mg capsule 300 mg PO HS #30 cap 04/20/18 07/08/18 Rx sildenafil 25 mg tablet 25 mg PO DAILY PRN #10 tab 05/28/18 07/01/18 Rx levothyroxine 112 mcg tablet 112 mcg PO DAILY #30 tab 06/10/18 07/08/18 Rx citalopram 40 mg PO HS 06/23/18 07/08/18 History ranitidine HCl 2 tsp GT DAILY 06/23/18 07/08/18 History ropinirole 1 mg PO .2200 HS 06/23/18 07/08/18 History ropinirole 1 mg PO BID 06/23/18 07/08/18 History rosuvastatin [Crestor] 40 mg PO .2200 06/23/18 07/08/18 History Allergies Allergy/AdvReac Type Severity Reaction Status Date / Time pollen extracts Allergy Mild Verified 07/01/18 10:43 Tetracyclines Allergy Unknown SKIN RASH Verified 07/01/18 10:43 Exam OCULAR EXAM:: Most recent ocular examination reveals visual acuity of 20/150 right eye, light perception left eye. There is a 60-70% permanent tarsorrhaphy in the left eye. Extraocular motility is normal. Slit-lamp examination shows a 3+ nuclear with 2-3+ cortical and 2+ posterior subcapsular cataract in the right eye. In the left eye there is mild chronic hyperemia with central corneal opacification. The corneal epithelium is intact with some stromal thinning. Neovascular pannus is visible at the limbus. There is a well-positioned PCIOL in the left eye with clear posterior capsule, although the view is quite difficult. Funduscopic examination of the right eye reveals disc cupping of 0.3 OD with normal vessels, macula, peripheral retina and vitreous. BRIGHTNESS ACUITY TESTING (BAT):: Brightness acuity testing was not performed. Assessment and Plan (1) Posterior subcapsular age-related cataract, right eye: Current visit: No Status: Acute Assessment: Visually significant cataract, right eye. Plan: Cataract extraction with intraocular lens implantation, right eye (2) Nuclear sclerotic cataract of right eye: Current visit: No Status: Acute Assessment: Visually significant cataract, right eye. Plan: Cataract extraction with intraocular lens implantation, right eye (3) Cortical cataract of right eye: Current visit: No Status: Acute Assessment: Visually significant cataract, right eye. Plan: Cataract extraction with intraocular lens implantation, right eye Note: NOTE:: The details of the planned surgery, including the risks, indications,limitations,expectations,outcome and possible complications were explained to the patient. The patient understands the complications including, but not limited to: infection, hemorrhage, posterior dislocation of the lens or nuclear fragments which may require the intervention of a vitreoretinal surgeon, possible loss of the eye, or from anesthetic complications. The patient has been made aware of the option of not having surgery, that vision following surgery may not be equal to that prior to surgery, and that the planned surgery may not achieve the intended results. Following this discussion, which the patient appeared to understand, the patient wishes to proceed with cataract surgery with lens implantation of the affected eye to improve and maximize vision.
--- NOTE | 2018-07-11 15:40 | W.PM.DSUDISC ---
Discharge Plan Discharge Details Attending Provider: Fabian Ambriz Primary Care Provider: Jackie Prasad Home Meds and New Rx's Prescriptions: No Action alfuzosin [Uroxatral] 10 mg tablet extended release 24 hr 10 mg PO DAILY Qty: 90 RF: 3 sildenafil [Viagra] 25 mg tablet 25 mg PO DAILY PRN (Reason: sexual activity) Qty: 10 RF: 0 melatonin 3 MG tablet 3 mg PO HS Qty: 90 RF: 2 ipratropium-albuterol 3 ML solution for nebulization 0.5 mg IN TID PRNQty: 3 RF: 3 ferrous sulfate 220 mg (44 mg iron)/5 mL solution 330 mg Feeding Tube BID Qty: 473 RF: 5 acetaminophen [Tylenol Extra Strength] 500 mg tablet 1,000 mg PO .1600, 2200 PRNRF: 0 gabapentin 300 mg capsule 300 mg PO HS Qty: 30 RF: 2 levothyroxine [Synthroid] 112 mcg tablet 112 mcg PO DAILY Qty: 30 RF: 3 ropinirole 1 mg Tablet 1 mg PO .2200 HS RF: 0 ropinirole 1 mg tablet 1 mg PO BID RF: 0 citalopram 20 mg tablet 40 mg PO HS RF: 0 ranitidine HCl 15 mg/mL syrup 2 tsp GT DAILY RF: 0 rosuvastatin [Crestor] 40 mg tablet 40 mg PO .2200 RF: 0 Discharge Instructions Stand Alone Forms: Post-op Topical Cataract, Margaret Parada (DSU) DS: Diagnosis Discharge Diagnosis (1) Status post cataract extraction and insertion of intraocular lens of right eye: Status: Chronic
--- NOTE | 2018-07-11 15:43 | ROE_ITS ---
Date of service: 07/12/18 Time of Service: 14:24 Operative Note PRE-OP DIAGNOSIS: Cataract, right eye, with poor red reflex PROCEDURE: Cataract extraction using phacoemulsification with intraocular lens implantation, right eye, using capsular staining with Vision Blue SURGEON: Fabian Ambriz ANESTHESIA: MAC (with local sub-tenon's anesthetic injection) PATHOLOGY: none sent COMPLICATIONS: None Patient was transported to: same day Patient's condition: stable Implants: Nakul [employer] / [employer] Tecnis [id number] Indications: Progressive visual loss due to cataract, right eye Procedure Description: CATARACT SURGERY OPERATIVE REPORT PREOPERATIVE DIAGNOSIS: 1. Dense nuclear/cortical/posterior subcapsular cataract, right eye 2. Poor red reflex secondary to #1 POSTOPERATIVE DIAGNOSIS: Same OPERATION: 1. Cataract extraction using phacoemulsification with posterior chamber intr aocular lens implant, right eye. 2. 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 He had chronic zoster uveitis, ocular hypertension, and developed a significant cataract, which has been removed. 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 He now has a tarsorrhaphy in the left eye and essentially no useful vision. He has developed a dense nuclear cortical and posterior subcapsular cataract in the right eye. He now presents for cataract surgery in the right eye. PROCEDURE: The correct surgical eye was identified and marked as the right eye and the pupil was dilated in the preoperative area using mydriatics, cycloplegics, and NSAIDS (except in aspirin allergic patients). The pupil dilated to about 7mm. No sedation was administered. The patient was brought to the operating room where cardiopulmonary monitoring was instituted and surgical time-out was performed, confirming the correct operative eye and IOL power. The patient was positioned as best as possible, as he cannot lie flat, he was able to be reclined to about 30 degrees. Topical anesthesia was administered with difficulty due to significant blepharospasm. Then ophthalmic povidone-iodine 5% was instilled into the conjunctival fornices. Lidocaine gel was applied to the cornea and the sofie- ocular area was prepped with Betadine 10% solution and draped in the usual sterile fashion for intraocular surgery, including an aperture drape. A Tegaderm transparent film dressing was cut in half and used to cover the lashes and lid margins. Care was taken to sequester the lashes and lid margins under the Tegaderm dressing. A lid speculum was placed between the lids of the operative eye and the Chana-Kobe operating microscope was maneuvered into position. Jay Jay scissors were then used to make a conjunctival buttonhole approximately 6mm posterior to the limbus in the inferonasal quadrant. Blunt dissection was carried out to expose bare sclera, and a blunt-tipped sub-tenon?s anesthesia cannula was introduced and passed posteriorly along the globe where non- preserved plain lidocaine was injected into posterior sub-Tenon?s space. A sideport knife was used to make a paracentesis port at the 7:00 position. Air was injected into the anterior chamber, followed by Vision Blue, which was painted over the anterior capsule and then irrigated out with BSS. The anterior chamber was filled with Viscoat. A 2.4mm keratome knife was used to create a half-thickness groove at the limbus and then to construct a three-plane near-clear corneal tunnel extending 2.0mm into clear cornea at the 10:00 position. A flap was raised on the anterior capsule and capsulorhexis forceps were used to complete a continuous curvilinear capsulorhexis of 5.5mm. Balanced salt solution was then used to perform cortical cleaving hydrodissection and nuclear hydrodelineation until the lens could be freely rotated within the capsular bag. The lens nucleus was then disassembled and removed within the capsular bag and iris plane using phacoemulsification. Residual cortical material was removed using the 45-degree angled silicone I/A tip with 0.3mm port. The posterior capsule was carefully polished to remove as much residual lens epithelial cells as safely possible. The capsular bag was then inflated and the anterior chamber deepened with Provisc. The lens implant described above was inserted into the capsular bag using the YENNY [place] Injector. A Kuglen hook was used to dial the IOL into position. Residual viscoelastic was then removed first from posterior to the IOL, then from the anterior chamber using the I/A handpiece. The lens implant was noted to center nicely within the capsular bag. The incisions were stromally hydrated, and the anterior chamber was reformed using BSS. Then 0.4cc of moxifloxacin 1.5mg/ml were injected into the capsular bag and anterior chamber. The incisions were checked with a Weck spear and found to be secure. Several drops of ophthalmic povidone-iodine 5% were then applied to the eye followed by two drops of Imprimis combination moxifloxacin/dexamethasone solution. The drapes were removed and a clear plastic protective eye shield was placed over the eye. The patient was then returned to [facility] Surgery in stable condition.
[2018-07-12 11:20] VITALS: BP 164/102; PULSE 93; RESP 18; TEMP 38.1; O2SAT 90
[2018-07-12] MEDS: Tropicam./Phenyleph. (1/2.5%) 5 ML BTL OD ×3 (11:50→12:06)
[2018-07-12] MEDS: Tetracaine 0.5% 4 ML BTL OD ×4 (11:50→13:50)
[2018-07-12] MEDS: Lidocaine 2% Jelly 6 ML SYR (13:39)
[2018-07-12] MEDS: Povidone-Iodine Ophth 30 ML BTL ×2 (13:39→14:17)
[2018-07-12] MEDS: Duovisc Viscoelastic System EACH 1 EACH (13:50)
[2018-07-12] MEDS: Lidocaine 1% Pres-Free 5 ML VIAL (13:50)
[2018-07-12] MEDS: Balanced Salt Soln.-PLUS 500 ML BAG (13:50)
[2018-07-12] MEDS: Trypan Blue 0.06% 0.5 ML SYR (13:50)
== END 2018-07-12 15:00 | disposition home or self-care (01) ==
LOC: SUR 10:43
PROVIDERS: PCP Family Medicine; Visit Provider Ophthalmology
PROC: (CPT 66982; principal; 2018-07-12 13:30)
DX: H25.811 Combined forms of age-related cataract, right eye (principal); H35.89 Other specified retinal disorders; Z98.42 Cataract extraction status, left eye; Z96.1 Presence of intraocular lens; I10 Essential (primary) hypertension; K21.9 Gastro-esophageal reflux disease without esophagitis; J44.9 Chronic obstructive pulmonary disease, unspecified
CPT/HCPCS: 66982; V2632

== ENCOUNTER 2018-07-22 17:33 | Emergency (ER) | payer MEDICARE, OTHER, MEDICAID, SELFPAY ==
[2018-07-22] VITALS (23 sets, daily range): BP systolic 120–179; BP diastolic 68–113; PULSE 73–97; RESP 18; TEMP 37.9; O2SAT 84–100
--- NOTE | 2018-07-22 18:05 | NUR.NOTE ---
Nursing Note: Patient given a neb of saline to help him with some of the crusty stuff that he felt was bothering him in his trach. RT reports it looks clean visually from the stoma. Too MOY has seen patients stoma much worse and feels as though it doesn't look bad at this time.
--- NOTE | 2018-07-22 18:24 | DI.RAD_ITS ---
SYMPTOM/DIAGNOSIS: FEVER, SOB PA AND LATERAL CHEST: The heart is not enlarged. There are bilateral diffuse, coarse intrapulmonary radiodensities. Comparison with previous examination of 12/09/17 and 05/27/18 shows significantly decreased radiodensities on the current examination. Upper lung zones appear fairly clear. No pleural effusion is seen. CONCLUSION: Chronic pulmonary infiltrates, the possibility of superimposed consolidation would be difficult to exclude on this evaluation.
--- NOTE | 2018-07-22 18:25 | ED.GENADUL_ITS ---
Discharge Plan Disposition Patient Disposition: HOME Discharge Details Chief Complaint: GenMedical Clinical Impression: Pneumonia Primary Care Provider: Jackie Prasad ED Provider: Andrea Gan Home Meds and New Rx's Prescriptions: New levofloxacin [Levaquin] 750 mg tablet 750 mg PO QHS Qty: 4 RF: 0 Continued alfuzosin [Uroxatral] 10 mg tablet extended release 24 hr 10 mg PO DAILY Qty: 90 RF: 3 sildenafil [Viagra] 25 mg tablet 25 mg PO DAILY PRN (Reason: sexual activity) Qty: 10 RF: 0 melatonin 3 MG tablet 3 mg PO HS Qty: 90 RF: 2 ipratropium-albuterol 3 ML solution for nebulization 0.5 mg IN TID PRNQty: 3 RF: 3 ferrous sulfate 220 mg (44 mg iron)/5 mL solution 330 mg Feeding Tube BID Qty: 473 RF: 5 acetaminophen [Tylenol Extra Strength] 500 mg tablet 1,000 mg PO .1600, 2200 PRNRF: 0 gabapentin 300 mg capsule 300 mg PO HS Qty: 30 RF: 2 levothyroxine [Synthroid] 112 mcg tablet 112 mcg PO DAILY Qty: 30 RF: 3 ropinirole 1 mg Tablet 1 mg PO .2200 HS RF: 0 ropinirole 1 mg tablet 1 mg PO BID RF: 0 ranitidine HCl 15 mg/mL syrup 2 tsp GT DAILY RF: 0 rosuvastatin [Crestor] 40 mg tablet 40 mg PO .2200 RF: 0 No Action citalopram 20 mg tablet 40 mg PO HS RF: 0 Discharge Instructions Instructions: Pneumonia (ED) Additional Instructions: Take the full course of antibiotic as prescribed. Your next dose is tomorrow 07/23/18 evening. While you are on Levaquin and for 2 days after completion of antibiotic, I recommend that you take 1/2 half dosing of citalopram as these medications can interact. Please contact your primary care physician to arrange follow-up. Return to the ER for any worsening or new concerning symptoms. Referrals: Jackie Prasad MD [Primary Care Provider] - Medical Decision Making 18:45 --73-year-old male with history of laryngectomy, here with shortness of breath, low-grade fever, also with tingling in his hands bilaterally. Saturating low 90s. RT consulted and recommends humidified oxygen. Consider early PNA - possible aspiration with recent trac valve issue. Plan to obtain cxr. Consider electrolyte abnormality - will check chem. 19:45 --chest x-ray interpreted by radiology: There are bilateral lower markable markings in pulse and pulmonary fibrosis. Improving infiltrates at bilateral lung bases. This is in comparison to a chest x-ray done on 05/27/2018. Labs reviewed and nondiagnostic. Normal electrolytes and no leukocytosis. Given symptoms and chest x-ray findings in setting of chronic trach and recent trach issues, I will cover with Levaquin for potential early pneumonia. Screening EKG was reviewed and interpreted by me: QTC 484, sinus rhythm 77 bpm, normal axis. I advised that he cut his citalopram dose in half to avoid potential QT prolongation with Levaquin. Patient was encouraged to follow-up with his primary care physician and to return should have any worsening or new concerning symptoms. Disposition decision was made weighing the risks and benefits of hospitalization versus outpatient treatment, the risk for further decompensation, and the patient's wishes. The patient was stable and requested discharge. Prior to discharge, my usual and customary return precautions were reviewed with the patient - this included follow-up instructions and reason to return to the emergency department if condition worsens, does not improve as expected, or other new concerns arise. HPI General Mode of arrival: ambulatory . Date/Time Provider Initiated Documentation: 07/22/18 17:34 . Limitations to Documentation: no limitations . Information obtained by: patient . HPI Narrative: 73-year-old male with history of COPD, oropharyngeal cancer status post laryngectomy, here with chief complaint of shortness of breath, low-grade fever this afternoon, yellow mucus from his trach site, and tingling in his hands bilaterally. Symptoms are mild to moderate with no modifiers. He also notes that he had a trach valve fall out on Thursday and was replaced the following day. He has been monitoring his pulse ox at home and notes that it has been in the low 90s which is typical for him. Related Data Home Medications Medication Instructions Recorded Confirmed melatonin 3 mg PO HS #90 tab-cap 08/13/17 07/12/18 ipratropium-albuterol 0.5 mg IN TID PRN #3 box 01/11/18 07/12/18 ferrous sulfate 220 mg (44 mg 330 mg FEEDING TUBE BID #473 ml 02/23/18 07/12/18 iron)/5 mL oral solution alfuzosin ER 10 mg tablet,extended 10 mg PO DAILY #90 tab-cap 03/02/18 07/12/18 release 24 hr acetaminophen 500 mg tablet 1,000 mg PO .1600, 2200 PRN tab 04/05/18 07/12/18 gabapentin 300 mg capsule 300 mg PO HS #30 cap 04/20/18 07/12/18 sildenafil 25 mg tablet 25 mg PO DAILY PRN #10 tab 05/28/18 07/12/18 levothyroxine 112 mcg tablet 112 mcg PO DAILY #30 tab 06/10/18 07/12/18 citalopram 40 mg PO HS 06/23/18 07/12/18 ranitidine HCl 2 tsp GT DAILY 06/23/18 07/12/18 ropinirole 1 mg PO .2200 HS 06/23/18 07/12/18 ropinirole 1 mg PO BID 06/23/18 07/12/18 rosuvastatin [Crestor] 40 mg PO .2200 06/23/18 07/12/18 levofloxacin [Levaquin] 750 mg PO QHS #4 tab 07/22/18 Previous Rx's Medication Instructions Recorded melatonin 3 mg PO HS #90 tab-cap 08/13/17 ferrous sulfate 220 mg (44 mg 330 mg FEEDING TUBE BID #473 ml 02/23/18 iron)/5 mL oral solution alfuzosin ER 10 mg tablet,extended 10 mg PO DAILY #90 tab-cap 03/02/18 release 24 hr gabapentin 300 mg capsule 300 mg PO HS #30 cap 04/20/18 sildenafil 25 mg tablet 25 mg PO DAILY PRN #10 tab 05/28/18 levothyroxine 112 mcg tablet 112 mcg PO DAILY #30 tab 06/10/18 levofloxacin [Levaquin] 750 mg PO QHS #4 tab 07/22/18 Allergies Allergy/AdvReac Type Severity Reaction Status Date / Time pollen extracts Allergy Mild Verified 07/12/18 11:16 Tetracyclines Allergy Unknown SKIN RASH Verified 07/12/18 11:16 General Stated Complaint: GenMedical CHER: 3 Review of Systems Constitutional Reports fever(s) Respiratory Reports as per HPI, Denies excessive phlegm production and Denies wheezing Neurologic Reports paresthesias (Hands bilateral) Allergic/Immunologic Denies wheezing PFSH Medical History 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) CAD (coronary artery disease) (Chronic) Cortical cataract of right eye (Resolved) Nuclear sclerotic cataract of right eye (Resolved) Posterior subcapsular age-related cataract, right eye (Resolved) Alcohol abuse (Inactive) Tobacco use (Inactive) Anxiety COPD (chronic obstructive pulmonary disease) Depression Hyperlipemia Hypertension Hypothyroidism Laryngeal cancer Post herpetic neuralgia Surgical History Status post cataract extraction and insertion of intraocular lens of right eye (Chronic 07/12/18) History of tarsorrhaphy (Chronic) Status post cataract extraction and insertion of intraocular lens of left eye (Chronic 04/30/12) 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) Colonoscopy - MAC (12/22/16) EGD - MAC (07/06/17) PROCEDURES Social History Smoking and Tabacco status: Former Tobacco Use Exam Const General: cooperative and no acute distress HENMT Head: normocephalic and atraumatic Mouth: moist mucous membranes Throat: posterior oropharynx normal Eyes Conjunctivae: normal conjunctivae Sclera: normal sclerae EOM: EOM intact bilaterally Neck Neck: supple and other (tracheostomy intact with no erythema or discharge) Resp Effort & Inspection: normal respiratory effort, not labored and no respiratory distress Auscultation: rales, rhonchi and no wheezes Cardio Jugular venous pressure: no JVD Rate: regular rate and not tachycardic Rhythm: regular rhythm GI Palpation: soft, not firm, no guarding, no masses, not rigid and nontender Skin General skin exam: no rashes or lesions noted Neuro General: alert, awake, oriented x3 and tone normal Extrem General: no edema Psych Appearance: grossly normal Mental Status: mental status grossly normal Course Vital Signs Temperature 37.9 C H 07/22/18 17:38 Pulse 86 07/22/18 17:38 Respiratory Rate 18 07/22/18 17:38 Blood Pressure 179/80 H 07/22/18 17:38 Pulse Oximetry 90 L 07/22/18 17:38 Temperature 37.9 C H 07/22/18 17:38 Temperature Source Temporal Artery Scan 07/22/18 17:38 Pulse 86 07/22/18 17:38 Respiratory Rate 18 07/22/18 17:38 Respiratory Effort 07/22/18 18:10 Respiratory Depth Normal 07/22/18 18:10 Blood Pressure 179/80 H 07/22/18 17:38 Blood Pressure Position Supine 07/22/18 17:38 Pulse Oximetry 90 L 07/22/18 17:38 Oxygen Delivery Method Room Air 07/22/18 17:38 Oxygen Flow Rate 0 07/22/18 17:38 Pain Level 0 07/22/18 17:38
[2018-07-22 18:39] LABS: Abs Immature Grans 0.02 k/cumm (0.0-0.09); Absolute Eosinophil Count 0.36 k/cumm (0.0-0.7); Absolute Lymphocyte Count 0.99 k/cumm (1.2-3.4); Absolute Monocyte Count 0.92 k/cumm (0.11-0.7); Absolute Neutrophil Count 8.25 k/cumm (1.2-6.7); Basophils % 0.9; Eosinophils % 3.4; HCT 45.5 % (40.0-50.0); HGB 14.5 g/dL (13.5-17.5); Immature Grans % 0.2; Lymphocytes % 9.3; Mean Corp. HGB Concentration 31.9 g/dL (32.0-36.0); Mean Corpuscular Hemoglobin 30.7 pg (27.0-33.0); Mean Corpuscular Volume 96.2 fL (80-95); Mean Platelet Volume 11.6 fL (8.0-11.0); Monocytes % 8.6; Neutrophils % 77.6; Platelet Count 240 x1000/uL (130-400); RBC 4.73 m/cumm (4.50-6.00); RBC Distribution Width 14.9 % (11.8-14.1); White Blood Cell Count 10.64 k/cumm (4.4-10.8)
[2018-07-22 18:55] LABS: Anion Gap 8.3 mmol/L (3-11); BUN 31 mg/dL (7-18); CO2 31.7 mmol/L (21.0-32.0); CREATININE 0.79 mg/dL (0.70-1.30); Calcium 9.1 mg/dL (8.5-10.1); Chloride 98 mmol/L (98-107); Glucose 87 mg/dL (70-100); Potassium 4.1 mmol/L (3.5-5.1); Sodium 138 mmol/L (136-145)
--- NOTE | 2018-07-22 19:11 | DI.VRAD_ITS ---
EXAM: XR Chest, 2 Views EXAM DATE/TIME: 07/22/2018 6:49 PM CLINICAL HISTORY: 73 years old, male; Signs and symptoms; Fever and shortness of breath TECHNIQUE: XR of the chest, 2 views. COMPARISON: CR XR PORTABLE CHEST AP 05/27/2018 3:08 PM FINDINGS: Lungs: There are bilateral lower lobe pulmonary markings which may represent pulmonary fibrosis. Improving infiltrates at bilateral lung bases. Pleural space: Unremarkable. No pleural effusion. No pneumothorax. Heart/Mediastinum: Unremarkable. No cardiomegaly. Vasculature: Tortuosity and calcification of the descending thoracic aorta. Bones/joints: Chronic fracture of the left proximal clavicle. IMPRESSION: Improving infiltrate/pneumonia at bilateral lung bases. Dictated and Authenticated by: Drake Morgan MD. Ordering:ARIA Mendez MD
== END 2018-07-22 20:15 | disposition home or self-care (01) ==
PROVIDERS: Emergency Provider Student in an Organized Health Care Education/Training Program; PCP Family Medicine
DX: J18.9 Pneumonia, unspecified organism (principal); R20.2 Paresthesia of skin; Z93.0 Tracheostomy status
CPT/HCPCS: 36415; 80048; 93005; 99285; 71046; 85025; 93010

== ENCOUNTER → 2018-07-26 09:26 | Outpatient (BNVA) | payer MEDICARE, OTHER, MEDICAID, SELFPAY | PROVIDERS: PCP Family Medicine; Referring Provider Family Medicine; Visit Provider Surgery | DX: R68.89 Other general symptoms and signs (principal); Z93.1 Gastrostomy status; I10 Essential (primary) hypertension; J44.9 Chronic obstructive pulmonary disease, unspecified; Z87.891 Personal history of nicotine dependence | CPT/HCPCS: 99212 ==

== ENCOUNTER → 2018-07-27 13:26 | Outpatient (BNVA) | payer MEDICARE, OTHER, MEDICAID, SELFPAY | PROVIDERS: PCP Family Medicine; Referring Provider Family Medicine; Visit Provider Surgery | DX: T85.598A Other mechanical complication of other gastrointestinal prosthetic devices, implants and grafts, initial encounter (principal) | CPT/HCPCS: 43762; 99211 ==

== ENCOUNTER 2018-08-27 11:10 | Emergency (ER) | payer MEDICARE, MEDICAID, SELFPAY ==
--- NOTE | 2018-08-27 11:23 | NUR.NOTE ---
pt states that he has had a productive cough for approximately a month however toady amount of sputum greatly increased and the pt felt sick pt tried to go to PCP however PCP was on vacation. PCP is maría. pt is currently taking an antibiotic however PT is unaware of what it is
[2018-08-27 11:26] VITALS: BP 159/39; PULSE 84; RESP 16; TEMP 37; O2SAT 93
--- NOTE | 2018-08-27 11:57 | ED.GENADUL_ITS ---
Discharge Plan Disposition Patient Disposition: HOME Condition: Stable Discharge Details Chief Complaint: RespSymp Clinical Impression: Aspiration pneumonia, COPD (chronic obstructive pulmonary disease) Primary Care Provider: Jackie Prasad ED Provider: Donal Aguilar Home Meds and New Rx's Prescriptions: Continued alfuzosin [Uroxatral] 10 mg tablet extended release 24 hr 10 mg PO DAILY Qty: 90 RF: 3 sildenafil [Viagra] 25 mg tablet 25 mg PO DAILY PRN (Reason: sexual activity) Qty: 10 RF: 0 omeprazole 20 mg capsule,delayed release(DR/EC) 20 mg PO DAILY Qty: 30 RF: 6 melatonin 3 MG tablet 3 mg PO HS Qty: 90 RF: 2 ipratropium-albuterol 3 ML solution for nebulization 0.5 mg IN TID PRNQty: 3 RF: 3 ferrous sulfate 220 mg (44 mg iron)/5 mL solution 330 mg Feeding Tube BID Qty: 473 RF: 5 acetaminophen [Tylenol Extra Strength] 500 mg tablet 1,000 mg PO .1600, 2200 PRNRF: 0 gabapentin 300 mg capsule 300 mg PO HS Qty: 30 RF: 2 levothyroxine [Synthroid] 112 mcg tablet 112 mcg PO DAILY Qty: 30 RF: 3 ranitidine HCl 15 mg/mL syrup 150 mg GT BID Qty: 480 RF: 3 sulfamethoxazole-trimethoprim [Bactrim DS] 800-160 mg tablet 2 tab PO BID Qty: 20 RF: 0 ropinirole 1 mg Tablet 1 mg PO .2200 HS RF: 0 ropinirole 1 mg tablet 1 mg PO BID RF: 0 citalopram 20 mg tablet 40 mg PO HS RF: 0 rosuvastatin [Crestor] 40 mg tablet 40 mg PO .2200 RF: 0 Discharge Instructions Instructions: COPD (Chronic Obstructive Pulmonary Disease) (ED), Pneumonia (ED) Additional Instructions: Return to the emergency department for any new or significant worsening of symptoms otherwise stay well-hydrated and take your medication specifically continue on your Bactrim 2 tabs twice daily. Follow-up with your primary care provider for reassessment on Thursday Referrals: Jackie Prasad MD [Primary Care Provider] - 08/30/18 10:00 am Discharge Data Discharge Date/Time-TO BE ENTERED AT DEPARTURE: 08/27/18 16:00 Medical Decision Making Patient presenting to the emergency department for chief complaint of shortness of breath and productive sputum. Patient states that this is been going on for the past 2 months. Patient states he has been on multiple antibiotics. Patient states that he had some slight increased sputum over the past couple days and attempted to be seen by his primary care provider but they were unable to see patient. Patient denies any pain or discomfort at this time. Patient denies any other change in symptoms including fever chills, nausea vomiting, or other complaints. Physical exam shows coarse breath sounds throughout lower lobes. Exam is otherwise unremarkable. Vital signs are stable. Plan to check labs and CT imaging of the chest. Patient was able to produce a sputum specimen for culture and duo nebulizer via trach was given. Labs were reviewed and show no significant leukocytosis and otherwise are nondiagnostic. CT imaging was performed and radiologist interpretation shows chronic interstitial lower lobe changes but no acute worsening of symptoms and CT compared to CT that was performed 1 year ago actually looks improved and compared to chest x-ray shows no worsening symptoms. Patient was reassessed and is stable. Sputum specimen did show gram-positive cocci. Patient states that he is already on Bactrim for concern of aspiration pneumonia by primary care provider which I feel is appropriate. Pending sputum culture I do not feel the patient needs any other changes and given laboratory and radiological imaging that shows patient's condition is stable I do not feel that any other interventions are required at this time. Patient was then encouraged to continue to use duo nebulizer to help with opening airways along with sputum removal. Close return precautions were discussed. After discussion of diagnosis and plan of care patient has no further needs, questions, or concerns and states clear understanding to return to the emergency department for any worsening symptoms. HPI General Mode of arrival: ambulatory . Date/Time Provider Initiated Documentation: 08/27/18 11:23 . Limitations to Documentation: no limitations . Information obtained by: patient and RN notes reviewed . History of Present Illness 73 year old M presents to the emergency department with the chief complaint of Shortness of breath, productive sputum, described as similar to prior episodes, Quality is described as other (denies pain), Patient started experiencing this month(s) (2) and it has been constant. Patient did receive the following treatments prior to arrival, none Related Data Home Medications Medication Instructions Recorded Confirmed melatonin 3 mg PO HS #90 tab-cap 08/13/17 08/27/18 ipratropium-albuterol 0.5 mg IN TID PRN #3 box 01/11/18 08/27/18 ferrous sulfate 220 mg (44 mg 330 mg FEEDING TUBE BID #473 ml 02/23/18 08/27/18 iron)/5 mL oral solution alfuzosin ER 10 mg tablet,extended 10 mg PO DAILY #90 tab-cap 03/02/18 08/27/18 release 24 hr acetaminophen 500 mg tablet 1,000 mg PO .1600, 0 PRN tab 04/05/18 08/27/18 gabapentin 300 mg capsule 300 mg PO HS #30 cap 04/20/18 08/27/18 sildenafil 25 mg tablet 25 mg PO DAILY PRN #10 tab 05/28/18 08/27/18 levothyroxine 112 mcg tablet 112 mcg PO DAILY #30 tab 06/10/18 08/27/18 citalopram 40 mg PO HS 06/23/18 08/27/18 ropinirole 1 mg PO .2200 HS 06/23/18 08/27/18 ropinirole 1 mg PO BID 06/23/18 08/27/18 rosuvastatin [Crestor] 40 mg PO .2200 06/23/18 08/27/18 ranitidine 15 mg/mL oral syrup 150 mg GT BID #480 ml 08/02/18 08/27/18 omeprazole 20 mg capsule,delayed 20 mg PO DAILY #30 cap 08/16/18 08/27/18 release sulfamethoxazole 800 2 tab PO BID #20 tab 08/20/18 08/27/18 mg-trimethoprim 160 mg tablet Previous Rx's Medication Instructions Recorded melatonin 3 mg PO HS #90 tab-cap 08/13/17 ferrous sulfate 220 mg (44 mg 330 mg FEEDING TUBE BID #473 ml 02/23/18 iron)/5 mL oral solution alfuzosin ER 10 mg tablet,extended 10 mg PO DAILY #90 tab-cap 03/02/18 release 24 hr gabapentin 300 mg capsule 300 mg PO HS #30 cap 04/20/18 sildenafil 25 mg tablet 25 mg PO DAILY PRN #10 tab 05/28/18 levothyroxine 112 mcg tablet 112 mcg PO DAILY #30 tab 06/10/18 ranitidine 15 mg/mL oral syrup 150 mg GT BID #480 ml 08/02/18 omeprazole 20 mg capsule,delayed 20 mg PO DAILY #30 cap 08/16/18 release sulfamethoxazole 800 2 tab PO BID #20 tab 08/20/18 mg-trimethoprim 160 mg tablet Allergies Allergy/AdvReac Type Severity Reaction Status Date / Time pollen extracts Allergy Mild Verified 08/27/18 11:28 Tetracyclines Allergy Unknown SKIN RASH Verified 08/27/18 11:28 General Stated Complaint: RespSymp CHER: 4 Review of Systems Constitutional Denies chills, Denies fever(s) and Reports malaise Cardiovascular Reports as per HPI, Denies chest pain, Denies chest pain with activity, Denies syncope, Denies irregular heart rhythm, Denies palpitations and Reports dyspnea Respiratory Reports cough, Denies hemoptysis and Reports dyspnea Gastrointestinal Denies abdominal pain, Denies diarrhea, Reports nausea and Denies vomiting Neurologic Denies syncope Psychiatric Denies anxiety Endocrine Denies cold intolerance, Denies heat intolerance and Denies palpitations PFSH Social History Smoking/Tobacco Use Status: Former Tobacco Use Tobacco: How many years used: 30 Alcohol Intake: never Drug use: Never Substance use type: does not use Do you feel safe at home: Yes Do you feel safe in your relationship?: Yes Exam Const General: cooperative, healthy appearing, comfortable, no acute distress, not diaphoretic and not ill appearing Nutritional Appearance: average body habitus Orientation: alert, awake and oriented x3 Limitations: mental status not altered Neck Neck: normal visual inspection, full ROM, trachea midline, supple and no anterior neck swelling Thyroid: thyroid normal Carotids: normal carotid upstroke and no bruits Chest Chest: normal inspection of the chest Resp Effort & Inspection: normal respiratory effort and able to speak in complete sentences Auscultation: diminished lung sounds bilaterally in the lower lung lujan and rales bilaterally in the lower lung lujan Cardio Jugular venous pressure: no JVD Palpation: normal PMI Rate: regular rate Rhythm: regular rhythm Heart Sounds: S1 normal, S2 normal, no click, no gallops, no murmurs and no rubs Bruits: no abdominal aortic bruits and no carotid bruits Pulses: radial pulses present bilaterally 2+ GI Inspection: normal to inspection Palpation: soft, no aortic enlargement, no pulsatile masses and nontender Auscultation: normal bowel sounds Skin General skin exam: no rashes or lesions noted Neuro General: alert, awake, oriented x3, tone normal and moves all extremities Course Vital Signs Temperature 37 C 08/27/18 11:26 Pulse 84 08/27/18 11:26 Respiratory Rate 16 08/27/18 11:26 Blood Pressure 159/39 H 08/27/18 11:26 Pulse Oximetry 93 L 08/27/18 11:26 Temperature 37 C 08/27/18 11:26 Temperature Source Skin 08/27/18 11:26 Pulse 84 08/27/18 11:26 Respiratory Rate 16 08/27/18 11:26 Blood Pressure 159/39 H 08/27/18 11:26 Blood Pressure Position Sitting 08/27/18 11:26 Pulse Oximetry 93 L 08/27/18 11:26 Oxygen Delivery Method Room Air 08/27/18 11:26 Oxygen Flow Rate 0 08/27/18 11:26 Pain Level 0 08/27/18 11:26 Lab/Test Results Lab/Test Results: 08/27/18 11:50 Blood Blood Culture - Pending 08/27/18 11:50 Blood Blood Culture - Pending
[2018-08-27] MEDS: Albuterol/Ipratropium 3 ML UPD VIAL UPD (12:34)
[2018-08-27] MEDS: Normal Saline 1,000 ML 150 ML IV (12:36)
[2018-08-27 12:49] LABS: Abs Immature Grans 0.04 k/cumm (0.0-0.09); Absolute Basophil Count 0.07 k/cumm (0.0-0.2); Absolute Eosinophil Count 0.29 k/cumm (0.0-0.7); Absolute Lymphocyte Count 0.75 k/cumm (1.2-3.4); Basophils % 0.8; Eosinophils % 3.4; HCT 47.7 % (40.0-50.0); HGB 15.4 g/dL (13.5-17.5); Immature Grans % 0.5; Lymphocytes % 8.9; Mean Corp. HGB Concentration 32.3 g/dL (32.0-36.0); Mean Corpuscular Hemoglobin 30.6 pg (27.0-33.0); Mean Corpuscular Volume 94.8 fL (80-95); Mean Platelet Volume 11.1 fL (8.0-11.0); Monocytes % 7.1; Neutrophils % 79.3; Platelet Count 250 x1000/uL (130-400); RBC 5.03 m/cumm (4.50-6.00); RBC Distribution Width 14.8 % (11.8-14.1); White Blood Cell Count 8.45 k/cumm (4.4-10.8)
[2018-08-27 13:13] LABS: ALT 35 U/L (12-78); AST 31 U/L (15-37); Albumin 3.9 g/dL (3.4-5.0); Alkaline Phosphatase 102 U/L (46-116); Anion Gap 9.3 mmol/L (3-11); BUN 33 mg/dL (7-18); Bilirubin, Total 0.2 mg/dL (0.2-1.0); CO2 29.7 mmol/L (21.0-32.0); CREATININE 0.85 mg/dL (0.70-1.30); Calcium 9.2 mg/dL (8.5-10.1); Chloride 96 mmol/L (98-107); Glucose 115 mg/dL (70-100); Potassium 4.9 mmol/L (3.5-5.1); Sodium 135 mmol/L (136-145); Total Protein 8.6 g/dL (6.4-8.2)
--- NOTE | 2018-08-27 14:35 | DI.CT_ITS ---
SYMPTOMS/DIAGNOSIS: COUGH, SHORTNESS OF BREATH CHEST CT: Comparison is made with 9Feb18. There has been interval improvement of previously noted bilateral infiltrates. There is residual increased interstitial disease greater in the lower lobes and scattered reticulonodular densities bilaterally. There is mild bronchiectasis. There are mild patchy densities in the right lower lobe as well as in the anterior aspect of the left upper lobe and lingula which could represent mild superimposed pneumonia. There are underlying emphysematous changes and biapical scarring. No central pulmonary emboli are seen. There is no evidence of aortic dissection. There is significant atherosclerotic disease as well as tortuosity of the thoracic aorta. The maximal dimension of the lower thoracic aorta is 4.1 cm. Coronary artery calcifications are also present. There are minimally enlarged hilar and mediastinal lymph nodes which are likely reactive. No pleural or pericardial effusions are seen. There is again noted to be a severe compression fracture of L 1 which is unchanged. A tracheostomy as well as Peg tube are noted. The visualized portions of the liver and gallbladder are unremarkable. The spleen, pancreas and adrenals and upper portions of the kidneys appear normal. IMPRESSION: Improvement in bilateral pneumonia. Underlying chronic interstitial and reticulonodular disease greatest in the lower lobes. There is no evidence of mass.
[2018-08-27] MEDS: Omnipaque 350 MG/ML 100 ML BTL 70 ML IJ (14:43)
[2018-08-27 15:50] VITALS: BP 159/39; PULSE 84; RESP 16; TEMP 37.2; O2SAT 93
== END 2018-08-27 16:00 | disposition home or self-care (01) ==
PROVIDERS: Emergency Provider Nurse Practitioner Family; PCP Family Medicine
DX: J69.0 Pneumonitis due to inhalation of food and vomit (principal); J44.0 Chronic obstructive pulmonary disease with (acute) lower respiratory infection; Z87.891 Personal history of nicotine dependence
CPT/HCPCS: 36415; 80053; 87040; 87077; 94640; 96360; 96361; 99285; 71260; 85025; 87070; 87186; 87205; 99284; J3490; J7620

== ENCOUNTER 2018-09-03 00:51 | Outpatient (CLI) | payer MEDICARE, MEDICAID, SELFPAY ==
[2018-09-03] MEDS: Omnipaque 350 MG/ML 100 ML BTL IJ (14:28)
--- NOTE | 2018-09-03 14:35 | DI.CT_ITS ---
SYMPTOM/DIAGNOSIS: NECK FULLNESS, LT NODULE, H/O HYPOPHARYNGEAL CA, PREOP FOR SURGICAL REPAIR OF FISTULA NECK CT: Comparison is made with 05/18/15. A BB marker was placed over the left submandibular region in the area indicated by the patient. Multiple surgical clips are seen on both sides of the neck. A tracheostomy is again noted. There is air seen within the esophagus with apparent tubing extending from the trachea to the esophagus. There is a non united fracture of the medial aspect of the left clavicle which again shows severe comminution. There is heavy vascular calcification. The area marked appears to correspond to heavy calcification related to the carotid arteries which appears unchanged and roughly symmetric bilaterally. No mass or adenopathy is seen. There is significant atherosclerotic changes of the vasculature. The vessels are not optimally opacified. There is heavy calcific plaque at the left common carotid bulb causing severe stenosis. Similar appearing heavy calcification and severe stenosis is seen of the right proximal internal carotid artery. The right vertebral artery is not well seen. Advanced degenerative changes are seen in the cervical spine. IMPRESSION: Palpable abnormality in the left submandibular region appears to the common carotid bulb. No mass or adenopathy is seen. There has been bilateral neck dissection and tracheotomy.
== END 2018-09-03 01:11 ==
PROVIDERS: PCP Family Medicine; Visit Provider Family Medicine
DX: R22.1 Localized swelling, mass and lump, neck (principal); Z85.21 Personal history of malignant neoplasm of larynx; Z93.0 Tracheostomy status; I65.23 Occlusion and stenosis of bilateral carotid arteries
CPT/HCPCS: 70491; 99282; 71045; J3490

== ENCOUNTER 2018-09-03 13:04 | Emergency (ER) | payer MEDICARE, SELFPAY ==
[2018-09-03 13:10] VITALS: BP 199/84; PULSE 87; RESP 20; TEMP 37.4; O2SAT 91
--- NOTE | 2018-09-03 13:18 | W.ED.GENAD ---
Discharge Plan Disposition Patient Disposition: HOME Condition: Stable Discharge Details Chief Complaint: RespSymp Clinical Impression: Low blood pressure reading Primary Care Provider: Jackie Prasad ED Provider: Kalyan Barreto Home Meds and New Rx's Prescriptions: No Action alfuzosin [Uroxatral] 10 mg tablet extended release 24 hr 10 mg PO DAILY Qty: 90 RF: 3 sildenafil [Viagra] 25 mg tablet 25 mg PO DAILY PRN (Reason: sexual activity) Qty: 10 RF: 0 omeprazole 20 mg capsule,delayed release(DR/EC) 20 mg PO DAILY Qty: 30 RF: 6 melatonin 3 MG tablet 3 mg PO HS Qty: 90 RF: 2 ipratropium-albuterol 3 ML solution for nebulization 0.5 mg IN TID PRNQty: 3 RF: 3 acetaminophen [Tylenol Extra Strength] 500 mg tablet 1,000 mg PO .1600, 2200 PRNRF: 0 gabapentin 300 mg capsule 300 mg PO HS Qty: 30 RF: 2 levothyroxine [Synthroid] 112 mcg tablet 112 mcg PO DAILY Qty: 30 RF: 3 ropinirole 1 mg tablet 2 mg PO .2200 HS RF: 0 ferrous sulfate 220 mg (44 mg iron)/5 mL solution 330 mg Feeding Tube BID Qty: 473 RF: 5 sulfamethoxazole-trimethoprim [Bactrim DS] 800-160 mg tablet 2 tab PO BID Qty: 60 RF: 2 ropinirole 1 mg tablet 1 mg PO BID RF: 0 citalopram 20 mg tablet 40 mg PO HS RF: 0 rosuvastatin [Crestor] 40 mg tablet 40 mg PO .2200 RF: 0 Discharge Instructions Additional Instructions: Your blood pressure while you were here was not low. Your xray did not show any new findings Follow up with your primary care provider in 1-2 weeks for reassessment especially if symptoms continue if you feel you are becoming more ill, having more shortness of breath or lightheaded return to the emergency department for reevaluation Medical Decision Making 73 yo male with multiple medical problems comes in with complaint of low BP with home health this morning, reporteldy 80's systolic but is now 190 systolic. He is speaking in full sentences using his external voice box device in no respiratory distress. HE is on bactrim for chronic mrsa pna due to aspirations. He does have some mild rhonchi on exam bilaterally but on chart review is chronic. Denies chest pain, abd pain. I suspect his symptoms are chronic, has no hypotension here. Will obtain xray to eval for any new significant pathology. pt remains stable, xray unremarkable compared to old xray. Do not feel any additional testing indicated at this time. He will go for his outaptient CT and return precautions given Differential Diagnosis pna, aspiration,edema HPI General Mode of arrival: ambulatory. Date/Time Provider Initiated Documentation: 09/03/18 13:08. Limitations to Documentation: no limitations. Information obtained by: patient. History of Present Illness 73 year old M presents to the emergency department with the chief complaint of low bp this morning, described as moderate, Patient started experiencing this hour(s) (1) No relieving factors improve symptom(s), No exacerbating factors reported . Patient did receive the following treatments prior to arrival, none Related Data Home Medications Medication Instructions Recorded Confirmed melatonin 3 mg PO HS #90 tab-cap 08/13/17 09/03/18 ipratropium-albuterol 0.5 mg IN TID PRN #3 box 01/11/18 09/03/18 alfuzosin ER 10 mg tablet,extended 10 mg PO DAILY #90 tab-cap 03/02/18 09/03/18 release 24 hr acetaminophen 500 mg tablet 1,000 mg PO .1600, 2200 PRN tab 04/05/18 09/03/18 gabapentin 300 mg capsule 300 mg PO HS #30 cap 04/20/18 09/03/18 sildenafil 25 mg tablet 25 mg PO DAILY PRN #10 tab 05/28/18 09/03/18 levothyroxine 112 mcg tablet 112 mcg PO DAILY #30 tab 06/10/18 09/03/18 citalopram 40 mg PO HS 06/23/18 09/03/18 ropinirole 1 mg PO BID 06/23/18 09/03/18 rosuvastatin [Crestor] 40 mg PO .2200 06/23/18 09/03/18 omeprazole 20 mg capsule,delayed 20 mg PO DAILY #30 cap 08/16/18 09/03/18 release ferrous sulfate 220 mg (44 mg 330 mg FEEDING TUBE BID #473 ml 08/30/18 09/03/18 iron)/5 mL oral solution ropinirole 1 mg tablet 2 mg PO .2200 HS tab 08/30/18 09/03/18 sulfamethoxazole 800 2 tab PO BID #60 tab 08/30/18 09/03/18 mg-trimethoprim 160 mg tablet Previous Rx's Medication Instructions Recorded melatonin 3 mg PO HS #90 tab-cap 08/13/17 alfuzosin ER 10 mg tablet,extended 10 mg PO DAILY #90 tab-cap 03/02/18 release 24 hr gabapentin 300 mg capsule 300 mg PO HS #30 cap 04/20/18 sildenafil 25 mg tablet 25 mg PO DAILY PRN #10 tab 05/28/18 levothyroxine 112 mcg tablet 112 mcg PO DAILY #30 tab 06/10/18 omeprazole 20 mg capsule,delayed 20 mg PO DAILY #30 cap 08/16/18 release ferrous sulfate 220 mg (44 mg 330 mg FEEDING TUBE BID #473 ml 08/30/18 iron)/5 mL oral solution sulfamethoxazole 800 2 tab PO BID #60 tab 08/30/18 mg-trimethoprim 160 mg tablet Allergies Allergy/AdvReac Type Severity Reaction Status Date / Time pollen extracts Allergy Mild Verified 09/03/18 13:13 Tetracyclines Allergy Unknown SKIN RASH Verified 09/03/18 13:13 General Stated Complaint: RespSymp CHER: 3 Review of Systems Review of Systems All systems reviewed & are unremarkable except as noted in HPI and below Eyes Denies loss of vision ENT Denies change in voice Cardiovascular Denies chest pain and Denies dyspnea Respiratory Denies dyspnea Gastrointestinal Denies abdominal pain, Denies nausea and Denies vomiting Musculoskeletal Denies joint swelling Neurologic Denies loss of vision Psychiatric Denies depression [facility] Medical History 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) CAD (coronary artery disease) (Chronic) Cortical cataract of right eye (Resolved) Nuclear sclerotic cataract of right eye (Resolved) Posterior subcapsular age-related cataract, right eye (Resolved) Alcohol abuse (Inactive) Tobacco use (Inactive) Anxiety COPD (chronic obstructive pulmonary disease) Depression Hyperlipemia Hypertension Hypothyroidism Laryngeal cancer Post herpetic neuralgia Surgical History Status post cataract extraction and insertion of intraocular lens of right eye (Chronic 07/12/18) History of tarsorrhaphy (Chronic) Status post cataract extraction and insertion of intraocular lens of left eye (Chronic 04/30/12) 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) Colonoscopy - MAC (12/22/16) EGD - MAC (07/06/17) PROCEDURES Social History Smoking/Tobacco Use Status: Former Tobacco Use Tobacco: How many years used: 30 Alcohol Intake: never Drug use: Never Substance use type: does not use Do you feel safe at home: Yes Do you feel safe in your relationship?: Yes Exam Const General: no acute distress Orientation: alert HENMT Head: normal to inspection Ears: external ears normal General nose exam: external nose normal Mouth: moist mucous membranes Eyes General: appearance normal, both eyes and all related structures Neck Neck: normal visual inspection Resp Effort & Inspection: normal respiratory effort and able to speak in complete sentences Cardio Rate: regular rate Skin General skin exam: no rashes or lesions noted Neuro General: alert and oriented x3 Extrem General: normal to inspection Psych Mental Status: mental status grossly normal Course Vital Signs Temperature 37.4 C 09/03/18 13:10 Pulse 87 09/03/18 13:10 Respiratory Rate 20 09/03/18 13:10 Blood Pressure 199/84 H 09/03/18 13:10 Pulse Oximetry 91 L 09/03/18 13:10 Temperature 37.4 C 09/03/18 13:10 Temperature Source Temporal Artery Scan 09/03/18 13:10 Pulse 87 09/03/18 13:10 Respiratory Rate 20 09/03/18 13:10 Respiratory Effort Non-Labored 09/03/18 13:14 Respiratory Depth Normal 09/03/18 13:14 Blood Pressure 199/84 H 09/03/18 13:10 Blood Pressure Position Sitting 09/03/18 13:10 Pulse Oximetry 91 L 09/03/18 13:10 Oxygen Delivery Method Room Air 09/03/18 13:10 Oxygen Flow Rate 0 09/03/18 13:10 Pain Level 0 09/03/18 13:10
--- NOTE | 2018-09-03 13:22 | ED.GENADUL_ITS ---
Discharge Plan Disposition Patient Disposition: HOME Condition: Stable Discharge Details Chief Complaint: RespSymp Clinical Impression: Low blood pressure reading Primary Care Provider: Jackie Prasad ED Provider: Kalyan Barreto Home Meds and New Rx's Prescriptions: No Action alfuzosin [Uroxatral] 10 mg tablet extended release 24 hr 10 mg PO DAILY Qty: 90 RF: 3 sildenafil [Viagra] 25 mg tablet 25 mg PO DAILY PRN (Reason: sexual activity) Qty: 10 RF: 0 omeprazole 20 mg capsule,delayed release(DR/EC) 20 mg PO DAILY Qty: 30 RF: 6 melatonin 3 MG tablet 3 mg PO HS Qty: 90 RF: 2 ipratropium-albuterol 3 ML solution for nebulization 0.5 mg IN TID PRNQty: 3 RF: 3 acetaminophen [Tylenol Extra Strength] 500 mg tablet 1,000 mg PO .1600, 2200 PRNRF: 0 gabapentin 300 mg capsule 300 mg PO HS Qty: 30 RF: 2 levothyroxine [Synthroid] 112 mcg tablet 112 mcg PO DAILY Qty: 30 RF: 3 ropinirole 1 mg tablet 2 mg PO .2200 HS RF: 0 ferrous sulfate 220 mg (44 mg iron)/5 mL solution 330 mg Feeding Tube BID Qty: 473 RF: 5 sulfamethoxazole-trimethoprim [Bactrim DS] 800-160 mg tablet 2 tab PO BID Qty: 60 RF: 2 ropinirole 1 mg tablet 1 mg PO BID RF: 0 citalopram 20 mg tablet 40 mg PO HS RF: 0 rosuvastatin [Crestor] 40 mg tablet 40 mg PO .2200 RF: 0 Discharge Instructions Additional Instructions: Your blood pressure while you were here was not low. Your xray did not show any new findings Follow up with your primary care provider in 1-2 weeks for reassessment especially if symptoms continue if you feel you are becoming more ill, having more shortness of breath or lightheaded return to the emergency department for reevaluation Medical Decision Making 73 yo male with multiple medical problems comes in with complaint of low BP with home health this morning, reporteldy 80's systolic but is now 190 systolic. He is speaking in full sentences using his external voice box device in no respiratory distress. HE is on bactrim for chronic mrsa pna due to aspirations. He does have some mild rhonchi on exam bilaterally but on chart review is chronic. Denies chest pain, abd pain. I suspect his symptoms are chronic, has no hypotension here. Will obtain xray to eval for any new significant pathology. pt remains stable, xray unremarkable compared to old xray. Do not feel any additional testing indicated at this time. He will go for his outaptient CT and return precautions given Differential Diagnosis pna, aspiration,edema HPI General Mode of arrival: ambulatory . Date/Time Provider Initiated Documentation: 09/03/18 13:08 . Limitations to Documentation: no limitations . Information obtained by: patient . History of Present Illness 73 year old M presents to the emergency department with the chief complaint of low bp this morning, described as moderate, Patient started experiencing this hour(s) (1) No relieving factors improve symptom(s), No exacerbating factors reported . Patient did receive the following treatments prior to arrival, no ne Related Data Home Medications Medication Instructions Recorded Confirmed melatonin 3 mg PO HS #90 tab-cap 08/13/17 09/03/18 ipratropium-albuterol 0.5 mg IN TID PRN #3 box 01/11/18 09/03/18 alfuzosin ER 10 mg tablet,extended 10 mg PO DAILY #90 tab-cap 03/02/18 09/03/18 release 24 hr acetaminophen 500 mg tablet 1,000 mg PO .1600, 2200 PRN tab 04/05/18 09/03/18 gabapentin 300 mg capsule 300 mg PO HS #30 cap 04/20/18 09/03/18 sildenafil 25 mg tablet 25 mg PO DAILY PRN #10 tab 05/28/18 09/03/18 levothyroxine 112 mcg tablet 112 mcg PO DAILY #30 tab 06/10/18 09/03/18 citalopram 40 mg PO HS 06/23/18 09/03/18 ropinirole 1 mg PO BID 06/23/18 09/03/18 rosuvastatin [Crestor] 40 mg PO .219906/23/18 09/03/18 omeprazole 20 mg capsule,delayed 20 mg PO DAILY #30 cap 08/16/18 09/03/18 release ferrous sulfate 220 mg (44 mg 330 mg FEEDING TUBE BID #473 ml 08/30/18 09/03/18 iron)/5 mL oral solution ropinirole 1 mg tablet 2 mg PO .2200 HS tab 08/30/18 09/03/18 sulfamethoxazole 800 2 tab PO BID #60 tab 08/30/18 09/03/18 mg-trimethoprim 160 mg tablet Previous Rx's Medication Instructions Recorded melatonin 3 mg PO HS #90 tab-cap 08/13/17 alfuzosin ER 10 mg tablet,extended 10 mg PO DAILY #90 tab-cap 03/02/18 release 24 hr gabapentin 300 mg capsule 300 mg PO HS #30 cap 04/20/18 sildenafil 25 mg tablet 25 mg PO DAILY PRN #10 tab 05/28/18 levothyroxine 112 mcg tablet 112 mcg PO DAILY #30 tab 06/10/18 omeprazole 20 mg capsule,delayed 20 mg PO DAILY #30 cap 08/16/18 release ferrous sulfate 220 mg (44 mg 330 mg FEEDING TUBE BID #473 ml 08/30/18 iron)/5 mL oral solution sulfamethoxazole 800 2 tab PO BID #60 tab 08/30/18 mg-trimethoprim 160 mg tablet Allergies Allergy/AdvReac Type Severity Reaction Status Date / Time pollen extracts Allergy Mild Verified 09/03/18 13:13 Tetracyclines Allergy Unknown SKIN RASH Verified 09/03/18 13:13 General Stated Complaint: RespSymp CHER: 3 Review of Systems Review of Systems All systems reviewed & are unremarkable except as noted in HPI and below Eyes Denies loss of vision ENT Denies change in voice Cardiovascular Denies chest pain and Denies dyspnea Respiratory Denies dyspnea Gastrointestinal Denies abdominal pain, Denies nausea and Denies vomiting Musculoskeletal Denies joint swelling Neurologic Denies loss of vision Psychiatric Denies depression [facility] Medical History 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) CAD (coronary artery disease) (Chronic) Cortical cataract of right eye (Resolved) Nuclear sclerotic cataract of right eye (Resolved) Posterior subcapsular age-related cataract, right eye (Resolved) Alcohol abuse (Inactive) Tobacco use (Inactive) Anxiety COPD (chronic obstructive pulmonary disease) Depression Hyperlipemia Hypertension Hypothyroidism Laryngeal cancer Post herpetic neuralgia Surgical History Status post cataract extraction and insertion of intraocular lens of right eye (Chronic 07/12/18) History of tarsorrhaphy (Chronic) Status post cataract extraction and insertion of intraocular lens of left eye (Chronic 04/30/12) 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) Colonoscopy - MAC (12/22/16) EGD - MAC (07/06/17) PROCEDURES Social History Smoking/Tobacco Use Status: Former Tobacco Use Tobacco: How many years used: 30 Alcohol Intake: never Drug use: Never Substance use type: does not use Do you feel safe at home: Yes Do you feel safe in your relationship?: Yes Exam Const General: no acute distress Orientation: alert HENMT Head: normal to inspection Ears: external ears normal General nose exam: external nose normal Mouth: moist mucous membranes Eyes General: appearance normal, both eyes and all related structures Neck Neck: normal visual inspection Resp Effort & Inspection: normal respiratory effort and able to speak in complete sentences Cardio Rate: regular rate Skin General skin exam: no rashes or lesions noted Neuro General: alert and oriented x3 Extrem General: normal to inspection Psych Mental Status: mental status grossly normal Course Vital Signs Temperature 37.4 C 09/03/18 13:10 Pulse 87 09/03/18 13:10 Respiratory Rate 20 09/03/18 13:10 Blood Pressure 199/84 H 09/03/18 13:10 Pulse Oximetry 91 L 09/03/18 13:10 Temperature 37.4 C 09/03/18 13:10 Temperature Source Temporal Artery Scan 09/03/18 13:10 Pulse 87 09/03/18 13:10 Respiratory Rate 20 09/03/18 13:10 Respiratory Effort Non-Labored 09/03/18 13:14 Respiratory Depth Normal 09/03/18 13:14 Blood Pressure 199/84 H 09/03/18 13:10 Blood Pressure Position Sitting 09/03/18 13:10 Pulse Oximetry 91 L 09/03/18 13:10 Oxygen Delivery Method Room Air 09/03/18 13:10 Oxygen Flow Rate 0 09/03/18 13:10 Pain Level 0 09/03/18 13:10
--- NOTE | 2018-09-03 13:31 | DI.RAD_ITS ---
SYMPTOMS/DIAGNOSIS: COUGH CHEST X-RAY, PORTABLE AP VIEW: Comparison is 07/22/18. The heart size is within normal limits. There is again seen tortuosity of the thoracic aorta. Pulmonary vasculature appears stable. There appear to be underlying fibrotic changes in the lungs. No definite evidence of a superimposed pneumonia or congestive heart failure is appreciated. The bones appear intact. IMPRESSION: No acute pulmonary process.
[2018-09-03 13:58] VITALS: RESP 12; O2SAT 92
== END 2018-09-03 14:10 | disposition home or self-care (01) ==
LOC: ER 14:13
PROVIDERS: Emergency Provider Emergency Medicine; PCP Family Medicine
DX: R03.1 Nonspecific low blood-pressure reading (principal); J44.9 Chronic obstructive pulmonary disease, unspecified; Z87.891 Personal history of nicotine dependence; I10 Essential (primary) hypertension
CPT/HCPCS: 99282; 71045

== ENCOUNTER 2018-09-17 02:54 | Outpatient (CLI) | payer MEDICARE, SELFPAY ==
[2018-09-17 07:42] LABS: HCT 45.6 % (40.0-50.0); HGB 14.9 g/dL (13.5-17.5); Mean Corp. HGB Concentration 32.7 g/dL (32.0-36.0); Mean Corpuscular Hemoglobin 31.1 pg (27.0-33.0); Mean Corpuscular Volume 95.2 fL (80-95); Mean Platelet Volume 10.1 fL (8.0-11.0); Platelet Count 262 x1000/uL (130-400); RBC 4.79 m/cumm (4.50-6.00); RBC Distribution Width 14.9 % (11.8-14.1); White Blood Cell Count 7.42 k/cumm (4.4-10.8)
[2018-09-17 07:53] LABS: ALT 39 U/L (12-78); AST 37 U/L (15-37); Albumin 3.4 g/dL (3.4-5.0); Alkaline Phosphatase 120 U/L (46-116); Anion Gap 8.9 mmol/L (3-11); BUN 35 mg/dL (7-18); Bilirubin, Total 0.3 mg/dL (0.2-1.0); CO2 30.1 mmol/L (21.0-32.0); Chloride 97 mmol/L (98-107); Glucose 111 mg/dL (70-100); Potassium 4.6 mmol/L (3.5-5.1); Sodium 136 mmol/L (136-145); Total Protein 7.9 g/dL (6.4-8.2)
== END 2018-09-17 03:14 ==
LOC: LOS 02:54 → LBO 07:14
PROVIDERS: PCP Family Medicine; Visit Provider Family Medicine
DX: R53.83 Other fatigue (principal); J86.0 Pyothorax with fistula; N40.1 Benign prostatic hyperplasia with lower urinary tract symptoms; N13.8 Other obstructive and reflux uropathy; Z93.1 Gastrostomy status
CPT/HCPCS: 36415; 80053; 85027; 99213

== ENCOUNTER 2018-10-01 21:20 | Emergency (ER) | payer MEDICARE, OTHER, SELFPAY ==
--- NOTE | 2018-10-01 21:26 | ED.GENADUL_ITS ---
Discharge Plan Disposition Patient Disposition: HOME Condition: Good Discharge Details Chief Complaint: SOB Clinical Impression: Postop check, Localized swelling, mass or lump of neck Primary Care Provider: Jackie Prasad ED Provider: Emanuel Ramirez [place] [facility] and New Rx's Prescriptions: Continued alfuzosin [Uroxatral] 10 mg tablet extended release 24 hr 10 mg PO DAILY Qty: 90 RF: 3 Adult 50+ Probiotic 4 billion cell capsule 4,000 mmu cells PO DAILY RF: 0 omeprazole 20 mg capsule,delayed release(DR/EC) 20 mg PO DAILY Qty: 30 RF: 6 melatonin 3 MG tablet 3 mg PO HS Qty: 90 RF: 2 ipratropium-albuterol 3 ML solution for nebulization 0.5 mg IN TID PRNQty: 3 RF: 3 acetaminophen [Tylenol Extra Strength] 500 mg tablet 1,000 mg PO .1600, 2200 PRNRF: 0 gabapentin 300 mg capsule 300 mg PO HS Qty: 30 RF: 2 levothyroxine [Synthroid] 112 mcg tablet 112 mcg PO DAILY Qty: 30 RF: 3 ropinirole 1 mg tablet 2 mg PO .2200 HS RF: 0 ferrous sulfate 220 mg (44 mg iron)/5 mL solution 330 mg Feeding Tube BID Qty: 473 RF: 5 oxycodone 5 mg/5 mL solution 5 mg PO Q4H MDD 20 ml PRN (Reason: pain) Qty: 100 RF: 0 rosuvastatin [Crestor] 40 mg tablet 40 mg PO .2200 RF: 0 Discharge Instructions Additional Instructions: You may leave the cannula out for tonight but please put back in the morning. Contact ENT on-call at [facility] if any questions. Follow-up with him this week as planned. Return to ED for fever, increased neck swelling, increased difficulty breathing, or other concerns. 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 This was complicated by postoperative bleeding. He just had the last drain removed yesterday. He developed some swelling to the left of the stoma tonight. He had difficulty breathing and removed the cannula from the stoma. This made him feel better. He was unable to suction or remove anything from the stoma. The swelling does not appear to be getting worse. Saturations were a little low on arrival. Apparently, he does have oxygen that he uses at home intermittently. Lungs sound clear. Chest x-ray ordered. Call placed to ENT at [facility] to discuss with them. Chest x-ray is unremarkable. Case discussed with ENT, Dr. Conklin. Likely this is related to small recurrent hematoma or seroma. He feels that any type or swelling anywhere near the stoma could make the patient feel dyspneic. Patient can leave cannular out tonight. Recommend checking a CBC to make sure white count and hemoglobin are okay. Observe in ED for a few hours. If no changes can be discharged home to follow-up with him next week as planned. Patient's white count is normal. Hemoglobin is lower than previous but he had postop bleeding and it is reasonable at 11.9. Patient has had no changes in the swelling. His breathing has been fine here. He is discharged home to follow-up with ENT next week as planned. Lab Data Lab results reviewed: Yes I reviewed the patient's lab results. HPI General Mode of arrival: ambulatory . Date/Time Provider Initiated Documentation: 10/01/18 21:21 . Limitations to Documentation: no limitations . Information obtained by: patient, RN notes reviewed and old records reviewed . HPI Narrative: Patient presents to ED for evaluation of swelling to the left of his tracheostomy site which is new and started a couple hours prior to arrival. Patient recently had an esophagoplasty done at [facility] to close a tracheoesophageal fistula. This was complicated by postop bleeding. He had drains out of his chest wall and the second one just being discontinued 2 days ago at follow-up. He had been doing relatively well except for discomfort. After the swelling started he noticed that he was having significant difficulty breathing and catching his breath. He felt hot and flushed. He removed the cannula that was in the ostomy. He then suctioned and used tweezers but was unable to get significant debris or sputum out. There was no bleeding. His breathing is now better. The swelling is still present. He is concerned and came here for evaluation. He has had no fever. He has had no increase in pain except with this new swelling. He feels like his breathing is back to baseline. Related Data Home Medications Medication Instructions Recorded Confirmed melatonin 3 mg PO HS #90 tab-cap 08/13/17 10/01/18 ipratropium-albuterol 0.5 mg IN TID PRN #3 box 01/11/18 10/01/18 acetaminophen 500 mg tablet 1,000 mg PO .1600, 2200 PRN tab 04/05/18 10/01/18 gabapentin 300 mg capsule 300 mg PO HS #30 cap 04/20/18 10/01/18 levothyroxine 112 mcg tablet 112 mcg PO DAILY #30 tab 06/10/18 10/01/18 rosuvastatin [Crestor] 40 mg PO .2200 06/23/18 10/01/18 omeprazole 20 mg capsule,delayed 20 mg PO DAILY #30 cap 08/16/18 10/01/18 release ferrous sulfate 220 mg (44 mg 330 mg FEEDING TUBE BID #473 ml 08/30/18 10/01/18 iron)/5 mL oral solution ropinirole 1 mg tablet 2 mg PO .2199 HS tab 08/30/18 10/01/18 lactobacillus combination no.9 4 4,000 mmu cells PO DAILY 09/15/18 10/01/18 billion cell capsule alfuzosin ER 10 mg tablet,extended 10 mg PO DAILY #90 tab-cap 09/17/18 10/01/18 release 24 hr oxycodone 5 mg/5 mL oral solution 5 mg PO Q4H PRN #100 ml MDD 20 ml 09/28/18 10/01/18 Previous Rx's Medication Instructions Recorded melatonin 3 mg PO HS #90 tab-cap 08/13/17 gabapentin 300 mg capsule 300 mg PO HS #30 cap 04/20/18 levothyroxine 112 mcg tablet 112 mcg PO DAILY #30 tab 06/10/18 omeprazole 20 mg capsule,delayed 20 mg PO DAILY #30 cap 08/16/18 release ferrous sulfate 220 mg (44 mg 330 mg FEEDING TUBE BID #473 ml 08/30/18 iron)/5 mL oral solution alfuzosin ER 10 mg tablet,extended 10 mg PO DAILY #90 tab-cap 09/17/18 release 24 hr oxycodone 5 mg/5 mL oral solution 5 mg PO Q4H PRN #100 ml MDD 20 ml 09/28/18 Allergies Allergy/AdvReac Type Severity Reaction Status Date / Time pollen extracts Allergy Mild Verified 04/19/19 21:32 Tetracyclines Allergy Unknown SKIN RASH Verified 10/01/18 21:32 General CHER: 3 Review of Systems Review of Systems As documented in HPI otherwise negative as below. 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) CAD (coronary artery disease) (Chronic) Cortical cataract of right eye (Resolved) Nuclear sclerotic cataract of right eye (Resolved) Posterior subcapsular age-related cataract, right eye (Resolved) Alcohol abuse (Inactive) Tobacco use (Inactive) Anxiety COPD (chronic obstructive pulmonary disease) Depression Hyperlipemia Hypertension Hypothyroidism Laryngeal cancer Post herpetic neuralgia Surgical History Status post cataract extraction and insertion of intraocular lens of right eye (Chronic 07/12/18) History of tarsorrhaphy (Chronic) Status post cataract extraction and insertion of intraocular lens of left eye (Chronic 04/30/12) 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 Chest mildly tachycardic. Room air saturations in the mid to high 80s. On trach mask 96%. Const: WDWN elderly male in NAD. HEENT: NC/AT. Normal facial exam. Neck: Stoma present. No drainage, sputum or blood. Firm, tender swelling to left of stoma over left clavicular head. Chest: Bruising and old ecchymosis to the left anterior chest wall and shoulder area. Large incision along the left medial/distal clavicle is clean dry and intact. Previous drain sites in the left anterior pectoralis area are unremarkable. Lungs: Normal respiratory effort. Lungs are clear. Cor: RRR without murmur/gallop. Good radial pulses. GI: Soft. NT/ND. No guarding or rebound. Neuro: A+O x 3. CN grossly in tact. Good strength and no focal deficit. Ext: No C/C/E. No deformity or tenderness. Skin: Warm and dry. No erythema to wound sites.
[2018-10-01 21:27] VITALS: BP 124/82; PULSE 101; RESP 20; TEMP 36.8; O2SAT 86
--- NOTE | 2018-10-01 21:59 | DI.RAD_ITS ---
SYMPTOM/DIAGNOSIS: SOB PA AND LATERAL CHEST: Comparison is made with 09/03/18. The heart size is normal. The aorta is tortuous. There are underlying fibrotic changes. There is no visible infiltrate or effusion. There are severe lower thoracic compression fractures. IMPRESSION: No acute abnormality.
--- NOTE | 2018-10-01 22:18 | DI.VRAD_ITS ---
EXAM: XR Chest, 2 Views EXAM DATE/TIME: 10/01/2018 9:43 PM CLINICAL HISTORY: 73 years old, male; Signs and symptoms; Shortness of breath; Patient HX: PT unable to raise left arm completely due to recent surgery. TECHNIQUE: Imaging protocol: XR of the chest, 2 views. COMPARISON: CR XR PORTABLE CHEST AP 09/03/2018 1:21 PM FINDINGS: Lungs: Mild diffuse interstitial prominence similar to prior. Minimal atelectasis versus scarring in the lung bases. No new consolidation. Pleural space: Unremarkable. No pleural effusion. No pneumothorax. Heart/Mediastinum: Unremarkable. No cardiomegaly. Vasculature: Aortic tortuosity appears similar to the prior study. Bones/joints: Chronic osseous changes. Similar appearance of a severe compression deformity of a vertebra at the thoracolumbar junction. IMPRESSION: No acute cardiopulmonary findings. Dictated and Authenticated by: Sebastien Anderson MD. Ordering:DAMIÁN Castellanos MD
[2018-10-01 22:28] VITALS: RESP 20
[2018-10-01 22:57] LABS: Abs Immature Grans 0.05 k/cumm (0.0-0.09); Absolute Basophil Count 0.14 k/cumm (0.0-0.2); Absolute Eosinophil Count 0.39 k/cumm (0.0-0.7); Absolute Lymphocyte Count 1.08 k/cumm (1.2-3.4); Absolute Monocyte Count 0.93 k/cumm (0.11-0.7); Absolute Neutrophil Count 5.55 k/cumm (1.2-6.7); Basophils % 1.7; Eosinophils % 4.8; HCT 36.7 % (40.0-50.0); HGB 11.9 g/dL (13.5-17.5); Immature Grans % 0.6; Lymphocytes % 13.3; Mean Corp. HGB Concentration 32.4 g/dL (32.0-36.0); Mean Corpuscular Hemoglobin 31.5 pg (27.0-33.0); Mean Corpuscular Volume 97.1 fL (80-95); Mean Platelet Volume 9.5 fL (8.0-11.0); Monocytes % 11.4; Neutrophils % 68.2; Platelet Count 321 x1000/uL (130-400); RBC 3.78 m/cumm (4.50-6.00); RBC Distribution Width 14.7 % (11.8-14.1); White Blood Cell Count 8.14 k/cumm (4.4-10.8)
[2018-10-01 23:20] VITALS: BP 122/77; PULSE 71; RESP 16; O2SAT 96
[2018-10-02 00:29] VITALS: BP 122/77; PULSE 71; RESP 16; O2SAT 96
== END 2018-10-02 00:37 | disposition home or self-care (01) ==
PROVIDERS: Emergency Provider Emergency Medicine; PCP Family Medicine
DX: R22.1 Localized swelling, mass and lump, neck (principal); R06.00 Dyspnea, unspecified; Z98.890 Other specified postprocedural states; Z99.81 Dependence on supplemental oxygen; Z93.0 Tracheostomy status; J44.9 Chronic obstructive pulmonary disease, unspecified; I10 Essential (primary) hypertension; Z85.21 Personal history of malignant neoplasm of larynx
CPT/HCPCS: 36415; 99284; 71046; 85025

== ENCOUNTER 2018-10-21 18:54 | Emergency (ER) | payer MEDICARE, OTHER, SELFPAY ==
[2018-10-21 19:10] VITALS: BP 109/86; PULSE 94; RESP 18; TEMP 36.8; O2SAT 92
[2018-10-21 19:35] LABS: Abs Immature Grans 0.03 k/cumm (0.0-0.09); Absolute Basophil Count 0.11 k/cumm (0.0-0.2); Absolute Eosinophil Count 0.34 k/cumm (0.0-0.7); Absolute Lymphocyte Count 1.11 k/cumm (1.2-3.4); Absolute Monocyte Count 0.93 k/cumm (0.11-0.7); Absolute Neutrophil Count 7.32 k/cumm (1.2-6.7); Basophils % 1.1; Eosinophils % 3.5; HCT 40.6 % (40.0-50.0); HGB 12.9 g/dL (13.5-17.5); Immature Grans % 0.3; Lymphocytes % 11.3; Mean Corp. HGB Concentration 31.8 g/dL (32.0-36.0); Mean Corpuscular Hemoglobin 30.4 pg (27.0-33.0); Mean Corpuscular Volume 95.8 fL (80-95); Monocytes % 9.5; Neutrophils % 74.3; Platelet Count 290 x1000/uL (130-400); RBC 4.24 m/cumm (4.50-6.00); RBC Distribution Width 14.2 % (11.8-14.1); White Blood Cell Count 9.84 k/cumm (4.4-10.8)
--- NOTE | 2018-10-21 19:41 | ED.GENADUL_ITS ---
Discharge Plan Disposition Patient Disposition: HOME Condition: Stable Discharge Details Chief Complaint: Dizzy/Sync Clinical Impression: Pneumonia Primary Care Provider: Jackie Prasad ED Provider: Francisco Lindsey Home Meds and New Rx's Prescriptions: New metronidazole [Flagyl] 500 mg tablet 500 mg PO Q12H 7 Days Qty: 14 RF: 0 levofloxacin [Levaquin] 750 mg tablet 750 mg PO DAILY Qty: 7 RF: 0 No Action alfuzosin [Uroxatral] 10 mg tablet extended release 24 hr 10 mg PO DAILY Qty: 90 RF: 3 Adult 50+ Probiotic 4 billion cell capsule 4,000 mmu cells PO DAILY RF: 0 omeprazole 20 mg capsule,delayed release(DR/EC) 20 mg PO DAILY Qty: 30 RF: 6 melatonin 3 MG tablet 3 mg PO HS Qty: 90 RF: 2 ipratropium-albuterol 3 ML solution for nebulization 0.5 mg IN TID PRNQty: 3 RF: 3 acetaminophen [Tylenol Extra Strength] 500 mg tablet 1,000 mg PO .1600, 2200 PRNRF: 0 gabapentin 300 mg capsule 300 mg PO HS Qty: 30 RF: 2 levothyroxine [Synthroid] 112 mcg tablet 112 mcg PO DAILY Qty: 30 RF: 3 ropinirole 1 mg tablet 2 mg PO .2200 HS RF: 0 ferrous sulfate 220 mg (44 mg iron)/5 mL solution 330 mg Feeding Tube BID Qty: 473 RF: 5 oxycodone 5 mg/5 mL solution 5 mg PO Q8H MDD 15ml PRN (Reason: pain) Qty: 75 RF: 0 rosuvastatin [Crestor] 40 mg tablet 40 mg PO .2200 RF: 0 Discharge Instructions Instructions: Pneumonia (ED) Additional Instructions: Please take the antibiotic as directed. Please monitor your oxygen closely, please follow-up with your primary care provider as soon as possible. Please keep your scheduled [facility] appointment on . If you notice any worsening of your symptoms, or any new symptoms such as vomiting, diarrhea, fever, chills, shortness of breath, worse chest pain, numbness, weakness, or fainting , please return immediately to the emergency department for reevaluation. Please follow up with your primary care provider as soon as possible for reassessment and reevaluation. As always, it was a pleasure participating in your medical care today. 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 Family members at bedside, states that over the last few days he has become increasingly but mildly weak, has had shortness of breath for the last few days with his chronic continued cough. Oxygen saturations remained stable at his baseline per both the patient and family. He denies any exertional dyspnea, any exertional chest pain, fever, or chills. Of note about 1 week ago he did start taking some oral fluids which is a new change after the healing of his previous tracheostomy sites and revisions. This evening he also had a brief episode of left shoulder pain which she describes as sharp and burning, it was located at the site of his skin graft excisional site. It completely resolved on its own, was nonexertional, not associated with chest pain or shortness of breath. He is currently asymptomatic. Vital signs demonstrate no evidence of tachycardia, normal baseline blood pressure, and an O2 sat of 92% which the patient states is his baseline. Lungs demonstrate intermittent crackles and rhonchi. Mucosa is notably dry. EKG shows right bundle branch block but is otherwise consistent with previous EKGs. Differential is broad, he has mild shortness of breath with associated concerning lung sounds in conjunction with continued chronic cough and history of tracheostomy certainly brings concern for pneumonia versus aspiration pneumonia from his recent increase in oral fluids. ACS is on the differential. With no pleuritic chest pain, new hypoxemia, tachycardia, or history of blood clots I doubt PE as the cause of his symptomatology. As it would be clinically inconsistent with his current symptoms. We will evaluate for cardiac etiology, gently rehydrate, and assess for infectious etiology. 2229 Patient's chest x-ray has returned, there is evidence of a retrocardiac infiltrate, and increased interstitial lung markings concerning for edema infection or fibrotic changes. Signs and symptoms are inconsistent with fluid overload, more consistent with infectious etiology. With the retrocardiac infiltrate, his symptoms of cough and mild shortness of breath, I am concerned that he may have suffered mild aspiration pneumonia with his new increase in food. Operatory work-up demonstrates no severely elevated white count, no bandemia. Electrolytes are normal, renal function stable, troponin normal. TSH normal. With signs and symptoms concerning for mild aspiration pneumonia discussed with the patient admission. With the patient's vital signs at his normal baseline, and him feeling notably better after gentle rehydration and notably encouraged. Upon discussion of admission the patient is made it very clear that at this time he would prefer to go home, and follow-up closely with his family doctor and mathematics department chair. With his reassuring vital signs, I do feel that this is reasonable but certainly not my first recommendation. I discussed with him the risks and benefits of discharge versus admission, the patient understands this. He is of sound mind and clear decision-making capacity. Respecting the patient's wishes he will be discharged home, he will be given his first dose of Levaquin and Flagyl for aspiration pneumonia here, and then a prescription for home use. I had a long discussion with the patient and his significant other on the absolute importance of prompt return if they notice any signs of difficulty breathing or worsening of his symptoms. He has a scheduled appointment at [facility] within the week, and will recommend PCP follow-up in the next 48 hours. I have extensively reviewed the treatment plan and discharge instructions with the patient and their family. I have addressed all patient concerns at this time. The patient and family was made aware of what symptoms to monitor for that would warrant a return to the emergency department. Discussed the plan with the patient and family, they demonstrate verbal understanding and agreement with our assessment and plan at this time. EKG 19: 24 Rate 90, IA 192, QTc 475, sinus rhythm, right bundle branch block, EKG findings are consistent with previous EKG from 09/15/2018. COMPARISON: SC XR CHEST 2V PA LATERAL 10/01/2018 9:55 PM FINDINGS: Lungs: Increased interstitial lung markings suggesting edema, infection or fibrotic changes. Retrocardiac infiltrate. Pleural space: Unremarkable. No pleural effusion. No pneumothorax. Heart/Mediastinum: Unremarkable. No cardiomegaly. Tracheostomy tube properly positioned. Bones/joints: Compression of T12 and L1 with focal kyphosis. Degenerative changes in the spine. IMPRESSION: Increased interstitial lung markings suggesting edema, infection or fibrotic changes. Compression of T12 and L1 with focal kyphosis. Degenerative changes in the spine. Retrocardiac infiltrate. Dictated and Authenticated by: Becki Ceja MD. Ordering:SHANITA Sinhg MD [facility] General Date/Time Provider Initiated Documentation: 10/21/18 19:11 . HPI Narrative: This is a very pleasant 73-year-old male with a past medical history of COPD, abdominal aneurysm, and throat cancer 10 years ago for which she received radiation at that time, but nothing since then. Unfortunately secondary to this he has had tracheal stenosis, requiring a tracheostomy. He recently had multiple revisions, including a graft with skin taken from his left shoulder and placed over his tracheostomy site. He also recently started eating semisolid foods orally within the past week. He has a chronic PEG tube as well. He presents today at the recommendation of his home health nurse. Family states that over the last few days he has had slight increase in his chronic shortness of breath. Patient states that his normal oxygen oscillates between 82 to 89% off of oxygen, and then up to 91% when he is on oxygen. He states that this is his normal and this is not changed. He does admit to feeling notably weak at home, as well as his chronic productive cough but he states that it is otherwise unchanged. His home health nurse felt that he looked more short of breath than normal and recommended he come in because of this. Additionally the patient has had pain over his left shoulder which he describes as severe and stabbing in the location of where he had his skin graft removal. This pain comes and goes intermittently, it is not related to exertion. He has no associated radiation to the chest. Currently he is pain-free. The patient denies any current antibiotics. He denies any fevers or chills. He denies any vomiting or diarrhea. He denies any recent coughing or choking episodes with his new food intake. He has no other complaints at this time. Related Data Home Medications Medication Instructions Recorded Confirmed melatonin 3 mg PO HS #90 tab-cap 08/13/17 10/21/18 ipratropium-albuterol 0.5 mg IN TID PRN #3 box 01/11/18 10/21/18 acetaminophen 500 mg tablet 1,000 mg PO .1600, 2200 PRN tab 04/05/18 10/21/18 gabapentin 300 mg capsule 300 mg PO HS #30 cap 04/20/18 10/21/18 levothyroxine 112 mcg tablet 112 mcg PO DAILY #30 tab 06/10/18 10/21/18 rosuvastatin [Crestor] 40 mg PO .2200 06/23/18 10/21/18 omeprazole 20 mg capsule,delayed 20 mg PO DAILY #30 cap 08/16/18 10/21/18 release ferrous sulfate 220 mg (44 mg 330 mg FEEDING TUBE BID #473 ml 08/30/18 10/21/18 iron)/5 mL oral solution ropinirole 1 mg tablet 2 mg PO .2199 HS tab 08/30/18 10/21/18 lactobacillus combination no.9 4 4,000 mmu cells PO DAILY 09/15/18 10/21/18 billion cell capsule alfuzosin ER 10 mg tablet,extended 10 mg PO DAILY #90 tab-cap 09/17/18 10/21/18 release 24 hr oxycodone 5 mg/5 mL oral solution 5 mg PO Q8H PRN #75 ml MDD 15ml 10/19/18 10/21/18 levofloxacin [Levaquin] 750 mg PO DAILY #7 tab 10/21/18 metronidazole [Flagyl] 500 mg PO Q12H 7 Days #14 tab 10/21/18 Previous Rx's Medication Instructions Recorded melatonin 3 mg PO HS #90 tab-cap 08/13/17 gabapentin 300 mg capsule 300 mg PO HS #30 cap 04/20/18 levothyroxine 112 mcg tablet 112 mcg PO DAILY #30 tab 06/10/18 omeprazole 20 mg capsule,delayed 20 mg PO DAILY #30 cap 08/16/18 release ferrous sulfate 220 mg (44 mg 330 mg FEEDING TUBE BID #473 ml 08/30/18 iron)/5 mL oral solution alfuzosin ER 10 mg tablet,extended 10 mg PO DAILY #90 tab-cap 09/17/18 release 24 hr oxycodone 5 mg/5 mL oral solution 5 mg PO Q8H PRN #75 ml MDD 15ml 10/19/18 levofloxacin [Levaquin] 750 mg PO DAILY #7 tab 10/21/18 metronidazole [Flagyl] 500 mg PO Q12H 7 Days #14 tab 10/21/18 Allergies Allergy/AdvReac Type Severity Reaction Status Date / Time pollen extracts Allergy Mild Verified 05/09/19 19:17 Tetracyclines Allergy Unknown SKIN RASH Verified 10/21/18 19:17 General Stated Complaint: Dizzy/Sync CHER: 3 Review of Systems Review of Systems All systems reviewed & are unremarkable except as noted in HPI and below PFSH Social History Smoking/Tobacco Use Status: Former Tobacco Use Tobacco: How many years used: 30 Alcohol Intake: never Drug use: Never Substance use type: does not use Do you feel safe at home: Yes Do you feel safe in your relationship?: Yes Exam Narrative Exam Narrative: 1.Const: Well-nourished, Well-developed, appearing stated age 2.Eyes: PERRL, no conjunctival injection, and symmetrical lids. 3.ENT: Tracheostomy is in place, skin graft is notably well-healing, no evidence of erythema, abscess or infection. Dry mucous membranes. 4.CVS: +S1/S2, No murmurs or gallops. Peripheral pulses 2+ and equal in all extremities. Brisk capillary refill in all extremities. 5.RESP: Unlabored respiratory effort. Crackles throughout, mild rhonchi throughout, no wheezes. 6.GI: Soft, Nontender/Nondistended, No hepatosplenomegaly. No guarding or rebound. 7.MSK: Normocephalic/Atraumatic, Extremities w/o deformity or ttp No cyanosis or clubbing, Normal movement of all extremities 8.Skin: Warm, Dry. No rashes or lesions. Postop skin graft site from where skin was removed on the left shoulder with the patient's intermittent pain is from demonstrates no redness, warmth, induration, or fluctuance. No evidence of abscess, wound dehiscence or infection. No significant abnormalities. Normal range of motion for the left shoulder. 9.Neuro: medical care evaluation specialist II-XII grossly intact. Sensation grossly intact, no focal neurologic deficits. 10.Psych: (AAO) x3. Appropriate mood and affect Course Vital Signs Temperature 36.8 C 10/21/18 19:10 Pulse 94 H 10/21/18 19:10 Respiratory Rate 18 10/21/18 19:10 Blood Pressure 109/86 10/21/18 19:10 Pulse Oximetry 92 L 10/21/18 19:10 Temperature 36.8 C 10/21/18 19:10 Temperature Source Skin 10/21/18 19:10 Pulse 94 H 10/21/18 19:10 Respiratory Rate 18 10/21/18 19:10 Respiratory Effort Incrsd Work of Breathing 10/21/18 19:15 Blood Pressure 109/86 10/21/18 19:10 Pulse Oximetry 92 L 10/21/18 19:10 Oxygen Delivery Method Room Air 10/21/18 19:10 Oxygen Flow Rate 0 10/21/18 19:10 Pain Level 7 10/21/18 19:10 Lab/Test Results Lab/Test Results: Laboratory Tests Range/Units 10/21/18 19:25 WBC (4.4-10.8) k/cumm 9.84 RBC (4.50-6.00) m/cumm 4.24 L Hgb (13.5-17.5) g/dL 12.9 L Hct (40.0-50.0) % 40.6 MCV (80-95) fL 95.8 H MCH (27.0-33.0) pg 30.4 MCHC (32.0-36.0) g/dL 31.8 L RDW (11.8-14.1) % 14.2 H Plt Count (130-400) x1000/uL 290 MPV (8.0-11.0) fL 10.0 Immature Gran % 0.3 Neutrophils % 74.3 Lymphocytes % 11.3 Monocytes % 9.5 Eosinophils % 3.5 Basophils % 1.1 Absolute Neutrophils (1.2-6.7) k/cumm 7.32 H Absolute Lymphocytes (1.2-3.4) k/cumm 1.11 L Absolute Monocytes (0.11-0.7) k/cumm 0.93 H Absolute Eosinophils (0.0-0.7) k/cumm 0.34 Absolute Basophils (0.0-0.2) k/cumm 0.11
[2018-10-21 19:57] LABS: ALT 27 U/L (12-78); AST 25 U/L (15-37); Albumin 3.3 g/dL (3.4-5.0); Alkaline Phosphatase 88 U/L (46-116); Anion Gap 9.4 mmol/L (3-11); BUN 17 mg/dL (7-18); Bilirubin, Total 0.5 mg/dL (0.2-1.0); CO2 27.6 mmol/L (21.0-32.0); CREATININE 0.73 mg/dL (0.70-1.30); Calcium 8.8 mg/dL (8.5-10.1); Chloride 97 mmol/L (98-107); Glucose 92 mg/dL (70-100); Magnesium 2.1 mg/dL (1.8-2.4); Potassium 3.8 mmol/L (3.5-5.1); Sodium 134 mmol/L (136-145); Total Protein 7.3 g/dL (6.4-8.2); Troponin I 0.02 ng/mL (0.00-0.06)
--- NOTE | 2018-10-21 20:24 | DI.RAD_ITS ---
SYMPTOM/DIAGNOSIS: SOB, COUGH, FATIGUE AP AND LATERAL CHEST: 10/21/18 Examination is compared to previous examination of 10/01. Note is again made of diffuse bilateral intrapulmonary interstitial radiodensities most prominent in the lung bases and consistent with fibrosis. Cardiac size is within normal limits. No pleural effusion seen. The possibility of superimposed basilar consolidation is also raised on the basis of the appearance on the lateral view. Note is made of an apparent tracheotomy. CONCLUSION: Findings consistent with pulmonary fibrosis, superimposed basilar infiltrate may be present in the retrocardiac portion of left or right lower lobes. Appropriate follow up studies requested.
--- NOTE | 2018-10-21 20:48 | DI.VRAD_ITS ---
EXAM: XR Chest, 2 Views EXAM DATE/TIME: 10/21/2018 8:03 PM CLINICAL HISTORY: 73 years old, male; Signs and symptoms; Cough and shortness of breath and other: Fatigue TECHNIQUE: Imaging protocol: XR of the chest, 2 views. COMPARISON: SC XR CHEST 2V PA LATERAL 10/01/2018 9:55 PM FINDINGS: Lungs: Increased interstitial lung markings suggesting edema, infection or fibrotic changes. Retrocardiac infiltrate. Pleural space: Unremarkable. No pleural effusion. No pneumothorax. Heart/Mediastinum: Unremarkable. No cardiomegaly. Tracheostomy tube properly positioned. Bones/joints: Compression of T12 and L1 with focal kyphosis. Degenerative changes in the spine. IMPRESSION: Increased interstitial lung markings suggesting edema, infection or fibrotic changes. Compression of T12 and L1 with focal kyphosis. Degenerative changes in the spine. Retrocardiac infiltrate. Dictated and Authenticated by: Becki Ceja MD. Ordering:SHANITA Singh MD
[2018-10-21] MEDS: Normal Saline 1,000 ML 1000 ML IV (20:55)
[2018-10-21 21:06] LABS: TSH (W/Ref FT4) 3.35 uIU/mL (0.358-3.74)
[2018-10-21] MEDS: Acetaminophen 500 MG TAB 1000 MG PO (21:56)
[2018-10-21] MEDS: rOPINIRole 0.5 MG TAB 2 MG PO (21:57)
[2018-10-21] MEDS: levoFLOXacin 500 MG, levoFLOXacin 250 MG 750 MG PO (22:55)
[2018-10-21] MEDS: metroNIDAZOLE 500 MG TAB PO (22:55)
== END 2018-10-21 23:03 | disposition home or self-care (01) ==
PROVIDERS: Emergency Provider Student in an Organized Health Care Education/Training Program; PCP Family Medicine
DX: J18.9 Pneumonia, unspecified organism (principal); Z93.0 Tracheostomy status; C10.9 Malignant neoplasm of oropharynx, unspecified; I10 Essential (primary) hypertension
CPT/HCPCS: 36415; 80053; 93005; 96360; 99285; 71046; 83735; 84443; 84484; 85025; 93010

== ENCOUNTER 2018-10-23 11:13 | Emergency (ER) | payer MEDICARE, OTHER, SELFPAY ==
--- NOTE | 2018-10-23 11:16 | ED.GENADUL_ITS ---
Discharge Plan Disposition Patient Disposition: HOME Condition: Good Discharge Details Chief Complaint: Abd Prob Clinical Impression: PEG tube malfunction Primary Care Provider: Jackie Prasad ED Provider: Francisco Lindsey Home Meds and New Rx's Prescriptions: No Action alfuzosin [Uroxatral] 10 mg tablet extended release 24 hr 10 mg PO DAILY Qty: 90 RF: 3 Adult 50+ Probiotic 4 billion cell capsule 4,000 mmu cells PO DAILY RF: 0 omeprazole 20 mg capsule,delayed release(DR/EC) 20 mg PO DAILY Qty: 30 RF: 6 melatonin 3 MG tablet 3 mg PO HS Qty: 90 RF: 2 ipratropium-albuterol 3 ML solution for nebulization 0.5 mg IN TID PRNQty: 3 RF: 3 acetaminophen [Tylenol Extra Strength] 500 mg tablet 1,000 mg PO .1600, 2200 PRNRF: 0 gabapentin 300 mg capsule 300 mg PO HS Qty: 30 RF: 2 levothyroxine [Synthroid] 112 mcg tablet 112 mcg PO DAILY Qty: 30 RF: 3 ropinirole 1 mg tablet 2 mg PO .2200 HS RF: 0 ferrous sulfate 220 mg (44 mg iron)/5 mL solution 330 mg Feeding Tube BID Qty: 473 RF: 5 oxycodone 5 mg/5 mL solution 5 mg PO Q8H MDD 15ml PRN (Reason: pain) Qty: 75 RF: 0 rosuvastatin [Crestor] 40 mg tablet 40 mg PO .2200 RF: 0 metronidazole [Flagyl] 500 mg tablet 500 mg PO Q12H 7 Days Qty: 14 RF: 0 levofloxacin [Levaquin] 750 mg tablet 750 mg PO DAILY Qty: 7 RF: 0 Discharge Instructions Additional Instructions: If you notice any leaking, pain, or bleeding around the PEG tube site please return immediately. If you notice any worsening of your symptoms, or any new symptoms such as vomiting, diarrhea, fever, chills, shortness of breath, chest pain, numbness, weakness, or fainting , please return immediately to the emergency department for reevaluation. Please follow up with your primary care provider as soon as possible for reassessment and reevaluation. As always, it was a pleasure participating in your medical care today. Referrals: Jackie Prasad MD [Primary Care Provider] - Medical Decision Making This is a pleasant 73-year-old male who presents for evaluation of PEG tube complication. He has a chronic left-sided PEG tube, he was messing with it early today when trying to close off 1 of the nodules when it accidentally got pulled and came out. He has had no bleeding or significant pain since then. No vomiting or diarrhea. This issue is happened before it is a Nasim 3.5 cm 18 [place] PEG tube. Of note the patient was here 2 days ago, at that time he had mild upper respiratory symptoms, and elected to go home rather than be admitted for his questionable aspiration pneumonia. He states that he is doing much better at this time, and is feeling great from a respiratory status. He has no other complaints at this time. We will get a new identical tube and replace it. 11:57 AM A new tube was acquired, it was placed without any difficulty whatsoever. The balloon was inflated inflated with 5 cc of sterile water, fluid was then injected into the stomach and then removed without any difficulty or resistance. Patient tolerated the procedure well. He will be discharged home with close follow-up. I have extensively reviewed the treatment plan and discharge instructions with the patient and their family. I have addressed all patient c oncerns at this time. The patient and family was made aware of what symptoms to monitor for that would warrant a return to the emergency department. Discussed the plan with the patient and family, they demonstrate verbal understanding and agreement with our assessment and plan at this time. HPI General Date/Time Provider Initiated Documentation: 10/23/18 11:14 . HPI Narrative: This is a very pleasant 73-year-old male with a past medical history of COPD, abdominal aneurysm, and throat cancer 10 years ago for which she received radiation at that time, but nothing since then. Unfortunately secondary to this he has had tracheal stenosis, requiring a tracheostomy. He recently had multiple revisions, including a graft with skin taken from his left shoulder and placed over his tracheostomy site. He also recently started eating semisolid foods orally within the past week. He has a chronic Nasim 3.5 cm 18 [place] PEG tube as well. He presents today for complication with his PEG tube. He states that he was messing with it today and he accidentally pulled it out. He had no pain or bleeding or discomfort. He has had this issue in the past. He has no other complaints at this time. No other modifying factors. Of note he was recently here 2 to 3 days ago for upper respiratory-like symptoms, and elected to be discharged rather than admitted for concern for mild aspiration pneumonia. He states that he is feeling much better, is glad with his original decision, and has been taking the antibiotics as directed without complication. He denies any vomiting, diarrhea, abdominal pain, or chest pain. Related Data Home Medications Medication Instructions Recorded Confirmed melatonin 3 mg PO HS #90 tab-cap 08/13/17 10/21/18 ipratropium-albuterol 0.5 mg IN TID PRN #3 box 01/11/18 10/21/18 acetaminophen 500 mg tablet 1,000 mg PO .1600, 0 PRN tab 04/05/18 10/21/18 gabapentin 300 mg capsule 300 mg PO HS #30 cap 04/20/18 10/21/18 levothyroxine 112 mcg tablet 112 mcg PO DAILY #30 tab 06/10/18 10/21/18 rosuvastatin [Crestor] 40 mg PO .2200 06/23/18 10/21/18 omeprazole 20 mg capsule,delayed 20 mg PO DAILY #30 cap 08/16/18 10/21/18 release ferrous sulfate 220 mg (44 mg 330 mg FEEDING TUBE BID #473 ml 08/30/18 10/21/18 iron)/5 mL oral solution ropinirole 1 mg tablet 2 mg PO .2200 HS tab 08/30/18 10/21/18 lactobacillus combination no.9 4 4,000 mmu cells PO DAILY 09/15/18 10/21/18 billion cell capsule alfuzosin ER 10 mg tablet,extended 10 mg PO DAILY #90 tab-cap 09/17/18 10/21/18 release 24 hr oxycodone 5 mg/5 mL oral solution 5 mg PO Q8H PRN #75 ml MDD 15ml 10/19/18 10/21/18 levofloxacin [Levaquin] 750 mg PO DAILY #7 tab 10/21/18 metronidazole [Flagyl] 500 mg PO Q12H 7 Days #14 tab 10/21/18 Previous Rx's Medication Instructions Recorded melatonin 3 mg PO HS #90 tab-cap 08/13/17 gabapentin 300 mg capsule 300 mg PO HS #30 cap 04/20/18 levothyroxine 112 mcg tablet 112 mcg PO DAILY #30 tab 06/10/18 omeprazole 20 mg capsule,delayed 20 mg PO DAILY #30 cap 08/16/18 release ferrous sulfate 220 mg (44 mg 330 mg FEEDING TUBE BID #473 ml 08/30/18 iron)/5 mL oral solution alfuzosin ER 10 mg tablet,extended 10 mg PO DAILY #90 tab-cap 09/17/18 release 24 hr oxycodone 5 mg/5 mL oral solution 5 mg PO Q8H PRN #75 ml MDD 15ml 10/19/18 levofloxacin [Levaquin] 750 mg PO DAILY #7 tab 10/21/18 metronidazole [Flagyl] 500 mg PO Q12H 7 Days #14 tab 10/21/18 Allergies Allergy/AdvReac Type Severity Reaction Status Date / Time pollen extracts Allergy Mild Verified 10/21/18 19:17 Tetracyclines Allergy Unknown SKIN RASH Verified 10/21/18 19:17 General CHER: 3 Review of Systems Review of Systems All systems reviewed & are unremarkable except as noted in HPI and below PFSH Social History Smoking/Tobacco Use Status: Former Tobacco Use Tobacco: How many years used: 30 Alcohol Intake: never Drug use: Never Substance use type: does not use Do you feel safe at home: Yes Do you feel safe in your relationship?: Yes Exam Narrative Exam Narrative: 1.Const: Well-nourished, Well-developed, appearing stated age 2.Eyes: PERRL, no conjunctival injection, and symmetrical lids. 3.ENT: Tracheostomy is in place, skin graft is notably well-healing, no evidence of erythema, abscess or infection. Dry mucous membranes. 4.CVS: +S1/S2, No murmurs or gallops. Peripheral pulses 2+ and equal in all extremities. Brisk capillary refill in all extremities. 5.RESP: Unlabored respiratory effort. Notably improved lung sounds compared to prior visit. No significant crackles or rhonchi. No wheezes. 6.GI: Soft, Nontender/Nondistended, No hepatosplenomegaly. No guarding or rebound. Left-sided stoma is present no active bleeding. No evidence of active discharge outside of his left-sided abdominal stoma. 7.MSK: Normocephalic/Atraumatic, Extremities w/o deformity or ttp No cyanosis or clubbing, Normal movement of all extremities 8.Skin: Warm, Dry. No rashes or lesions. Postop skin graft site from where skin was removed on the left shoulder with the patient's intermittent pain is from demonstrates no redness, warmth, induration, or fluctuance. No evidence of absc ess, wound dehiscence or infection. No significant abnormalities. Normal range of motion for the left shoulder. 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 Sensation grossly intact, no focal neurologic deficits. 10.Psych: (AAO) x3. Appropriate mood and affect
[2018-10-23 11:18] VITALS: BP 144/107; PULSE 104; RESP 16; TEMP 37.4; O2SAT 92
== END 2018-10-23 12:01 | disposition home or self-care (01) ==
LOC: ER 12:04
PROVIDERS: Emergency Provider Student in an Organized Health Care Education/Training Program; PCP Family Medicine
DX: K94.29 Other complications of gastrostomy (principal)
CPT/HCPCS: 43760; 43762

== ENCOUNTER 2018-12-01 18:13 | Emergency (ER) | payer MEDICARE, OTHER, SELFPAY ==
[2018-12-01] VITALS (31 sets, daily range): BP systolic 127–214; BP diastolic 67–100; PULSE 90–108; RESP 1–28; TEMP 36.8; O2SAT 79–100
--- NOTE | 2018-12-01 18:51 | ED.GENADUL_ITS ---
Discharge Plan Disposition Patient Disposition: HOME Condition: Stable Discharge Details Chief Complaint: SOB Clinical Impression: Chronic shortness of breath, History of laryngectomy, History of oropharyngeal cancer Primary Care Provider: Jackie Prasad ED Provider: Wanda Villasenor Home Meds and New Rx's Prescriptions: Continued alfuzosin [Uroxatral] 10 mg tablet extended release 24 hr 10 mg PO DAILY Qty: 90 RF: 3 Adult 50+ Probiotic 4 billion cell capsule 4,000 mmu cells PO DAILY RF: 0 omeprazole 20 mg capsule,delayed release(DR/EC) 20 mg PO DAILY Qty: 30 RF: 6 citalopram 20 mg tablet 20 mg PO DAILY Qty: 30 RF: 2 levofloxacin 250 mg/10 mL solution 250 mg PO DAILY Qty: 70 RF: 0 oxycodone 5 mg/5 mL solution 5 mg PO Q8H MDD 15ml PRN (Reason: pain) Qty: 75 RF: 0 triamcinolone acetonide 0.5 % ointment 1 applic TP TID PRN (Reason: allergic reaction) Qty: 15 RF: 0 melatonin 3 MG tablet 3 mg PO HS Qty: 90 RF: 2 ipratropium-albuterol 3 ML solution for nebulization 0.5 mg IN TID PRNQty: 3 RF: 3 acetaminophen [Tylenol Extra Strength] 500 mg tablet 1,000 mg PO .1600, 2200 PRNRF: 0 gabapentin 300 mg capsule 300 mg PO HS Qty: 30 RF: 2 levothyroxine [Synthroid] 112 mcg tablet 112 mcg PO DAILY Qty: 30 RF: 3 ropinirole 1 mg tablet 2 mg PO .2200 HS RF: 0 ferrous sulfate 220 mg (44 mg iron)/5 mL solution 330 mg Feeding Tube BID Qty: 473 RF: 5 rosuvastatin [Crestor] 40 mg tablet 40 mg PO DAILY Qty: 90 RF: 4 Discharge Instructions Instructions: Dyspnea (ED) Additional Instructions: Call your primary care doctor tomorrow to schedule follow-up appointment for reevaluation this week. Use your humidified oxygen and nebulizer treatments at home as directed and needed. You will receive a call from care management regarding a follow-up appointment with pulmonary at [facility] Return to the emergency department if you develop any worsening or new concerning symptoms. Discharge Data Discharge Date/Time-TO BE ENTERED AT DEPARTURE: 12/01/18 21:40 Discharge Physician: Wanda Villasenor Medical Decision Making 73-year-old male with a history of oral pharyngeal cancer status post laryngectomy who presents for shortness of breath over the last few weeks worse today. Oxygen saturation usually in the low 90s. Not on home oxygen. Oxygen saturation here in the mid 80s on room air. Heart rate 90s. Blood pressure hypertensive 177/86. Afebrile Patient has scattered wheezing throughout. He does not appear in any acute respiratory distress. He is mainly see receiving nutrition through G-tube but can take some p.o. but does not drink enough water. We will do a cardiac work-up, chest x-ray, give nebs and steroids and reassess. 1999 --labs and imaging reviewed and unremarkable. Normal white blood cell count. Troponin negative. Chest x-ray notes pulmonary interstitial markings but this change compared to previous. Patient was given nebs here and admits to improvement. Respiratory was able to suction a large amount of mucus and patient feels much better. Patient was started on Levaquin per PCP office for a left forearm infection possibly related to bug bites. states that she was told from PCP that this will cover for any pneumonia if this develops. had expressed concern about knowing how to use suctioning at home. Respiratory had a long discussion with patient and at bedside regarding equipment at home. She will arrange for appointment with [facility] to evaluate at home. also expressed difficulty with obtaining an appointment with pulmonary at [facility] before February. Will place patient on care management list to help arrange for this follow-up appointment. Patient instructed to use his humidified oxygen and nebulizer treatments at home as directed. Instructed to call the primary care doctor tomorrow for follow-up and to return here at any time if worse. Medical Records Medical records reviewed: Yes I reviewed the patient's medical records. Imaging Data Radiologic Study: Radiologist's impression: Patient Name: AMARILYS GUDINO #: [id number]: ER Ordering Provider: : [facility] ER Primary Care Provider: Jackie Prasad M.D.Date of Exam: 12/01/18Sex: M : 6Age: 73 Exam(s) EXAM: XR Chest, 1 View EXAM DATE/TIME: 12/01/2018 6:45 PM CLINICAL HISTORY: 73 years old, male; Shortness of breath; Patient HX: SOB TECHNIQUE: Imaging protocol: XR of the chest, 1 view. COMPARISON: SC XR CHEST 2V PA LATERAL 10/21/2018 8:20 PM FINDINGS: Lungs: Moderate bilateral increased pulmonary interstitial markings is identified. Allowing for differences in technique this is without interval change from a previous chest radiograph dated 10/21/2018. Pleural space: Unremarkable. No pleural effusion. No pneumothorax. Heart/Mediastinum: Elongated tortuous thoracic aorta. No cardiomegaly. Bones/joints: Degenerative changes of the thoracic spine without acute osseous abnormality. Soft tissues: Surgical clips are present at the base of the neck. IMPRESSION: Moderate bilateral increased pulmonary interstitial markings is identified. Allowing for differences in technique this is without interval change from a previous chest radiograph dated 10/21/2018. Lab Data Lab results reviewed: Yes I reviewed the patient's lab results. Laboratory Tests Range/Units 12/01/18 12/01/18 18:43 18:43 WBC (4.4-10.8) k/cumm 9.48 RBC (4.50-6.00) m/cumm 4.82 Hgb (13.5-17.5) g/dL 14.8 Hct (40.0-50.0) % 46.1 MCV (80-95) fL 95.6 H MCH (27.0-33.0) pg 30.7 MCHC (32.0-36.0) g/dL 32.1 RDW (11.8-14.1) % 14.3 H Plt Count (130-400) x1000/uL 255 MPV (8.0-11.0) fL 10.3 Immature Gran % 0.2 Neutrophils % 71.4 Lymphocytes % 13.2 Monocytes % 9.6 Eosinophils % 4.7 Basophils % 0.9 Absolute Neutrophils (1.2-6.7) k/cumm 6.76 H Absolute Lymphocytes (1.2-3.4) k/cumm 1.25 Absolute Monocytes (0.11-0.7) k/cumm 0.91 H Absolute Eosinophils (0.0-0.7) k/cumm 0.45 Absolute Basophils (0.0-0.2) k/cumm 0.09 Sodium (136-145) mmol/L 135 L Potassium (3.5-5.1) mmol/L 3.7 Chloride (98-107) mmol/L 97 L Carbon Dioxide (21.0-32.0) mmol/L 30.0 Anion Gap (3-11) mmol/L 8.0 BUN (7-18) mg/dL 17 Creatinine (0.70-1.30) mg/dL 0.74 Estimated GFR/1.73 m2 (mL/min/1.73m2) >= 60.00 Glucose (70-100) mg/dL 99 Calcium (8.5-10.1) mg/dL 8.8 Magnesium (1.8-2.4) mg/dL 2.1 Total Bilirubin (0.2-1.0) mg/dL 0.6 AST (15-37) U/L 20 ALT (12-78) U/L 20 Alkaline Phosphatase (46-116) U/L 89 Troponin I (0.00-0.06) ng/mL < 0.05 Total Protein (6.4-8.2) g/dL 7.6 Albumin (3.4-5.0) g/dL 3.5 ECG Data Attestation: I personally reviewed and interpreted this ECG (s) as follows: Interpretation: Rate of 96, right bundle branch block no acute ST ischemic changes. QTc 457. QRS 141. HPI General Mode of arrival: ambulatory . Date/Time Provider Initiated Documentation: 12/01/18 18:23 . Limitations to Documentation: no limitations . Information obtained by: patient . HPI Narrative: Patient is a 73-year-old male with a history of oropharyngeal cancer status post laryngectomy who presents for shortness of breath over the last few weeks, worse today. Oxygen saturation usually in the low 90s on room air. Patient's stated that patient had a few low blood pressure readings at home but unable to give a specific number. Denies any recent fever, cough or chest pain. Related Data Home Medications Medication Instructions Recorded Confirmed melatonin 3 mg PO HS #90 tab-cap 08/13/17 12/01/18 ipratropium-albuterol 0.5 mg IN TID PRN #3 box 01/11/18 12/01/18 acetaminophen 500 mg tablet 1,000 mg PO .1600, 2200 PRN tab 04/05/18 12/01/18 gabapentin 300 mg capsule 300 mg PO HS #30 cap 04/20/18 12/01/18 levothyroxine 112 mcg tablet 112 mcg PO DAILY #30 tab 06/10/18 12/01/18 omeprazole 20 mg capsule,delayed 20 mg PO DAILY #30 cap 08/16/18 12/01/18 release ferrous sulfate 220 mg (44 mg 330 mg FEEDING TUBE BID #473 ml 08/30/18 12/01/18 iron)/5 mL oral solution ropinirole 1 mg tablet 2 mg PO .2200 HS tab 08/30/18 12/01/18 lactobacillus combination no.9 4 4,000 mmu cells PO DAILY 09/15/18 12/01/18 billion cell capsule alfuzosin ER 10 mg tablet,extended 10 mg PO DAILY #90 tab-cap 09/17/18 12/01/18 release 24 hr citalopram 20 mg tablet 20 mg PO DAILY #30 tab 10/25/18 12/01/18 rosuvastatin 40 mg tablet 40 mg PO DAILY #90 tab 11/18/18 12/01/18 levofloxacin 250 mg/10 mL oral 250 mg PO DAILY #70 ml 11/30/18 12/01/18 solution oxycodone 5 mg/5 mL oral solution 5 mg PO Q8H PRN #75 ml MDD 15ml 11/30/18 12/01/18 triamcinolone acetonide 0.5 % 1 applic TP TID PRN #15 gm 11/30/18 12/01/18 topical ointment Previous Rx's Medication Instructions Recorded melatonin 3 mg PO HS #90 tab-cap 08/13/17 gabapentin 300 mg capsule 300 mg PO HS #30 cap 04/20/18 levothyroxine 112 mcg tablet 112 mcg PO DAILY #30 tab 06/10/18 omeprazole 20 mg capsule,delayed 20 mg PO DAILY #30 cap 08/16/18 release ferrous sulfate 220 mg (44 mg 330 mg FEEDING TUBE BID #473 ml 08/30/18 iron)/5 mL oral solution alfuzosin ER 10 mg tablet,extended 10 mg PO DAILY #90 tab-cap 09/17/18 release 24 hr citalopram 20 mg tablet 20 mg PO DAILY #30 tab 10/25/18 rosuvastatin 40 mg tablet 40 mg PO DAILY #90 tab 06/06/19 levofloxacin 250 mg/10 mL oral 250 mg PO DAILY #70 ml 11/30/18 solution oxycodone 5 mg/5 mL oral solution 5 mg PO Q8H PRN #75 ml MDD 15ml 11/30/18 triamcinolone acetonide 0.5 % 1 applic TP TID PRN #15 gm 11/30/18 topical ointment Allergies Allergy/AdvReac Type Severity Reaction Status Date / Time pollen extracts Allergy Mild Verified 12/01/18 18:20 Tetracyclines Allergy Unknown SKIN RASH Verified 12/01/18 18:20 General Stated Complaint: SOB CHER: 3 Review of Systems Review of Systems All systems reviewed & are unremarkable except as noted in HPI and below Constitutional Reports as per HPI, Denies chills and Denies fever(s) Eyes Denies blurry vision ENT Denies dizziness, Denies sore throat and Denies throat swelling Cardiovascular Denies chest pain and Reports dyspnea Respiratory Denies cough and Reports dyspnea Gastrointestinal Denies abdominal pain, Denies diarrhea and Denies vomiting Genitourinary Denies hematuria and Denies dysuria Musculoskeletal Denies back pain and Denies numbness Integumentary/Breasts Denies lesions and Denies rash Neurologic Denies dizziness, Denies focal weakness and Denies numbness Allergic/Immunologic Denies throat swelling PFSH Medical History 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) CAD (coronary artery disease) (Chronic) Cortical cataract of right eye (Resolved) Nuclear sclerotic cataract of right eye (Resolved) Posterior subcapsular age-related cataract, right eye (Resolved) Alcohol abuse (Inactive) Tobacco use (Inactive) Anxiety COPD (chronic obstructive pulmonary disease) Depression Hyperlipemia Hypertension Hypothyroidism Laryngeal cancer Post herpetic neuralgia Surgical History Status post cataract extraction and insertion of intraocular lens of right eye (Chronic 07/12/18) History of tarsorrhaphy (Chronic) Status post cataract extraction and insertion of intraocular lens of left eye (Chronic 04/30/12) 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) Colonoscopy - MAC (12/22/16) EGD - MAC (07/06/17) PROCEDURES Social History Smoking/Tobacco Use Status: Former Tobacco Use Tobacco: How many years used: 30 Alcohol Intake: never Drug use: Never Substance use type: does not use Do you feel safe at home: Yes Do you feel safe in your relationship?: Yes Exam Const General: cooperative, healthy appearing and no acute distress HENMT Head: normal to inspection Face and sinus: normal facial exam Eyes General: appearance normal, both eyes and all related structures Pupils: PERRL EOM: EOM intact bilaterally Neck Neck: normal visual inspection, No submandibular swelling and other (hole in neck s/p former trach) Lymphatic: no lymphadenopathy noted Chest Chest: normal inspection of the chest and no tenderness Resp Effort & Inspection: normal respiratory effort Auscultation: wheezes scattered wheezes Cardio Rate: regular rate Rhythm: regular rhythm GI Inspection: normal to inspection Palpation: soft, not firm, not rigid and nontender Auscultation: normal bowel sounds Skin General skin exam: no rashes or lesions noted Neuro General: alert, awake and oriented x3 Cognition: normal cognition Speech: speech normal Motor: muscle tone normal throughout Sensory Exam: no sensory deficits noted Extrem General: normal to inspection, full ROM and no edema Psych Appearance: grossly normal Mental Status: mental status grossly normal Speech and Movement: speech and movement normal Affect: normal affect Course Vital Signs Temperature 98.2 F 12/01/18 18:16 Pulse 96 H 12/01/18 18:16 Respiratory Rate 12/01/18 18:16 Blood Pressure 177/86 H 12/01/18 18:16 Pulse Oximetry 80 L 12/01/18 18:16 Temperature 98.2 F 12/01/18 18:16 Temperature Source Temporal Artery Scan 12/01/18 18:16 Pulse 96 H 12/01/18 18:16 Respiratory Rate 20 12/01/18 18:16 Respiratory Effort 12/01/18 18:16 Blood Pressure 177/86 H 12/01/18 18:16 Pulse Oximetry 80 L 12/01/18 18:16 Oxygen Delivery Method Room Air 12/01/18 18:16 Oxygen Flow Rate 0 12/01/18 18:16 Pain Level 0 12/01/18 18:16
[2018-12-01] MEDS: methylPREDNISolone SUCC 125 MG VIAL IVP (18:53)
[2018-12-01] MEDS: Albuterol 2.5 MG/3 ML INH SOLN VIAL UPD (18:53)
[2018-12-01] MEDS: Normal Saline Flush 10 ML SYR IVP (18:53)
--- NOTE | 2018-12-01 18:53 | DI.RAD_ITS ---
SYMPTOM/DIAGNOSIS: SHORTNESS OF BREATH, R/O ACUTE DISEASE PORTABLE UPRIGHT FRONTAL CHEST: Increased interstitial markings are noted in the lungs. No localized infiltrate is seen. There is no evidence of a pleural effusion. The heart is within normal limits in size. Unfolding and ectasia of the thoracic aorta is evident. Incidental note is made of vascular clips in the left side of the base of the neck. SUMMARY: No appreciable interval change when compared with previous images of 10/21/2018.
[2018-12-01 19:02] LABS: Abs Immature Grans 0.02 k/cumm (0.0-0.09); Absolute Basophil Count 0.09 k/cumm (0.0-0.2); Absolute Eosinophil Count 0.45 k/cumm (0.0-0.7); Absolute Lymphocyte Count 1.25 k/cumm (1.2-3.4); Absolute Monocyte Count 0.91 k/cumm (0.11-0.7); Absolute Neutrophil Count 6.76 k/cumm (1.2-6.7); Basophils % 0.9; Eosinophils % 4.7; HCT 46.1 % (40.0-50.0); HGB 14.8 g/dL (13.5-17.5); Immature Grans % 0.2; Lymphocytes % 13.2; Mean Corp. HGB Concentration 32.1 g/dL (32.0-36.0); Mean Corpuscular Hemoglobin 30.7 pg (27.0-33.0); Mean Corpuscular Volume 95.6 fL (80-95); Mean Platelet Volume 10.3 fL (8.0-11.0); Monocytes % 9.6; Neutrophils % 71.4; Platelet Count 255 x1000/uL (130-400); RBC 4.82 m/cumm (4.50-6.00); RBC Distribution Width 14.3 % (11.8-14.1); White Blood Cell Count 9.48 k/cumm (4.4-10.8)
--- NOTE | 2018-12-01 19:04 | DI.VRAD_ITS ---
EXAM: XR Chest, 1 View EXAM DATE/TIME: 12/01/2018 6:45 PM CLINICAL HISTORY: 73 years old, male; Shortness of breath; Patient HX: SOB TECHNIQUE: Imaging protocol: XR of the chest, 1 view. COMPARISON: SC XR CHEST 2V PA LATERAL 10/21/2018 8:20 PM FINDINGS: Lungs: Moderate bilateral increased pulmonary interstitial markings is identified. Allowing for differences in technique this is without interval change from a previous chest radiograph dated 10/21/2018. Pleural space: Unremarkable. No pleural effusion. No pneumothorax. Heart/Mediastinum: Elongated tortuous thoracic aorta. No cardiomegaly. Bones/joints: Degenerative changes of the thoracic spine without acute osseous abnormality. Soft tissues: Surgical clips are present at the base of the neck. IMPRESSION: Moderate bilateral increased pulmonary interstitial markings is identified. Allowing for differences in technique this is without interval change from a previous chest radiograph dated 10/21/2018. Dictated and Authenticated by: Az Jain MD. Ordering:MICHAEL Muñoz MD
[2018-12-01 19:16] LABS: ALT 20 U/L (12-78); AST 20 U/L (15-37); Albumin 3.5 g/dL (3.4-5.0); Alkaline Phosphatase 89 U/L (46-116); BUN 17 mg/dL (7-18); Bilirubin, Total 0.6 mg/dL (0.2-1.0); CREATININE 0.74 mg/dL (0.70-1.30); Calcium 8.8 mg/dL (8.5-10.1); Chloride 97 mmol/L (98-107); Glucose 99 mg/dL (70-100); Magnesium 2.1 mg/dL (1.8-2.4); Potassium 3.7 mmol/L (3.5-5.1); Sodium 135 mmol/L (136-145); Total Protein 7.6 g/dL (6.4-8.2)
[2018-12-01 19:17] LABS: Troponin I < 0.05 ng/mL (0.00-0.06)
--- NOTE | 2018-12-03 21:05 | PDOC.ERCMPRO ---
- If Service Date Differs Date of service: 12/03/18 Time of Service: 21:05 Care Management Progress Note CM faxed referral, notes from ED visit and imaging to [facility] pulmonary clinic at the request of provider. CM requested that services follow up with patient directly to schedule appointment.
== END 2018-12-01 21:40 | disposition home or self-care (01) ==
PROVIDERS: Emergency Provider Physician Assistant; PCP Family Medicine
DX: R06.02 Shortness of breath (principal); I45.10 Unspecified right bundle-branch block; Z85.818 Personal history of malignant neoplasm of other sites of lip, oral cavity, and pharynx; Z90.02 Acquired absence of larynx
CPT/HCPCS: 36415; 80053; 94640; 96361; 96374; 99284; 71045; 83735; 84484; 85025; J2930; J7613

== ENCOUNTER 2019-01-17 19:41 | Emergency (ER) | payer MEDICARE, OTHER, SELFPAY ==
--- NOTE | 2019-01-17 19:49 | NUR.NOTE ---
Nursing Note: gastronomy feeding tube fell out pt states that this has happened before in the past and would like us to replace it for him
[2019-01-17 19:52] VITALS: BP 124/70; PULSE 77; RESP 16; TEMP 37; O2SAT 93
[2019-01-17 19:54] VITALS: RESP 15
--- NOTE | 2019-01-17 19:54 | ED.GENADUL_ITS ---
Discharge Plan Disposition Patient Disposition: HOME Condition: Improving Discharge Details Chief Complaint: GenMedical Clinical Impression: PEG tube malfunction Primary Care Provider: Jackie Prasad ED Provider: Anders Ivy Home Meds and New Rx's Prescriptions: Continued alfuzosin [Uroxatral] 10 mg tablet extended release 24 hr 10 mg PO DAILY Qty: 90 RF: 3 Adult 50+ Probiotic 4 billion cell capsule 4,000 mmu cells PO DAILY RF: 0 omeprazole 20 mg capsule,delayed release(DR/EC) 20 mg PO DAILY Qty: 30 RF: 6 oxycodone 5 mg/5 mL solution 5 mg PO Q8H MDD 15ml PRN (Reason: pain) Qty: 75 RF: 0 melatonin 3 MG tablet 3 mg PO HS Qty: 90 RF: 2 ipratropium-albuterol 3 ML solution for nebulization 0.5 mg IN TID PRNQty: 3 RF: 3 acetaminophen [Tylenol Extra Strength] 500 mg tablet 1,000 mg PO .1600, 2200 PRNRF: 0 ropinirole 1 mg tablet 2 mg PO .2200 HS RF: 0 ferrous sulfate 220 mg (44 mg iron)/5 mL solution 330 mg Feeding Tube BID Qty: 473 RF: 5 rosuvastatin [Crestor] 40 mg tablet 40 mg PO DAILY Qty: 90 RF: 4 gabapentin 300 mg capsule 300 mg PO HS Qty: 90 RF: 6 levothyroxine [Synthroid] 112 mcg tablet 112 mcg PO DAILY Qty: 90 RF: 1 3 mLs Saline Vials 1 vial inhalation QID Qty: 120 RF: 4 citalopram 20 mg tablet 20 mg PO DAILY Qty: 30 RF: 2 Discharge Instructions Additional Instructions: You may resume normal routine and activity Continue all prescribed medications. Return for any acute concern. Medical Decision Making 74-year-old male with indwelling gastric tube that dislodged at home tonight. This is happened before. He has not been ill in any other way. The Nasim PEG tube was cleansed, the inflatable balloon checked, reinserted under sterile conditions, the balloon reinflated and the patient given contrast through the Naism tube and sent for x-ray. X-ray with enteric contrast present. Tube functioning an patient appropriate for discharge to home. Note of preliminary XR read of infrarenal aortic aneurysm, upon recepit of final reading, patient may have outpatient followup USN. CC: Jackie BOWERS General Mode of arrival: ambulatory . Date/Time Provider Initiated Documentation: 01/17/19 19:42 . Limitations to Documentation: no limitations . Information obtained by: patient . History of Present Illness 74 year old M presents to the emergency department with the chief complaint of G-tube displaced at home, no pain, described as mild and similar to prior episodes, and is localized to the abdomen. Patient reports no radiation. Patient started experiencing this minute(s) No relieving factors improve symptom(s), No exacerbating factors reported . Patient notes no other symptoms.. Patient did receive the following treatments prior to arrival, none Related Data Home Medications Medication Instructions Recorded Confirmed melatonin 3 mg PO HS #90 tab-cap 08/13/17 01/11/19 ipratropium-albuterol 0.5 mg IN TID PRN #3 box 01/11/18 01/11/19 acetaminophen 500 mg tablet 1,000 mg PO .1600, 2200 PRN tab 04/05/18 01/11/19 omeprazole 20 mg capsule,delayed 20 mg PO DAILY #30 cap 08/16/18 01/11/19 release ferrous sulfate 220 mg (44 mg 330 mg FEEDING TUBE BID #473 ml 08/30/18 01/11/19 iron)/5 mL oral solution ropinirole 1 mg tablet 2 mg PO .2200 HS tab 08/30/18 01/11/19 lactobacillus combination no.9 4 4,000 mmu cells PO DAILY 09/15/18 01/11/19 billion cell capsule alfuzosin 10 mg tablet,extended 10 mg PO DAILY #90 tab-cap 09/17/18 01/11/19 release 24 hr rosuvastatin 40 mg tablet 40 mg PO DAILY #90 tab 11/18/18 01/11/19 oxycodone 5 mg/5 mL oral solution 5 mg PO Q8H PRN #75 ml MDD 15ml 11/30/18 01/11/19 gabapentin 300 mg capsule 300 mg PO HS #90 cap 12/14/18 01/11/19 levothyroxine 112 mcg tablet 112 mcg PO DAILY #90 tab 12/21/18 01/11/19 3 mLs Saline Vials 1 vial INHALATION QID #120 vial 01/06/19 01/11/19 citalopram 20 mg tablet 20 mg PO DAILY #30 tab 01/17/19 Previous Rx's Medication Instructions Recorded melatonin 3 mg PO HS #90 tab-cap 08/13/17 omeprazole 20 mg capsule,delayed 20 mg PO DAILY #30 cap 08/16/18 release ferrous sulfate 220 mg (44 mg 330 mg FEEDING TUBE BID #473 ml 08/30/18 iron)/5 mL oral solution alfuzosin 10 mg tablet,extended 10 mg PO DAILY #90 tab-cap 09/17/18 release 24 hr rosuvastatin 40 mg tablet 40 mg PO DAILY #90 tab 11/18/18 oxycodone 5 mg/5 mL oral solution 5 mg PO Q8H PRN #75 ml MDD 15ml 11/30/18 gabapentin 300 mg capsule 300 mg PO HS #90 cap 12/14/18 levothyroxine 112 mcg tablet 112 mcg PO DAILY #90 tab 12/21/18 3 mLs Saline Vials 1 vial INHALATION QID #120 vial 01/06/19 citalopram 20 mg tablet 20 mg PO DAILY #30 tab 01/17/19 Allergies Allergy/AdvReac Type Severity Reaction Status Date / Time pollen extracts Allergy Mild Verified 12/13/18 10:54 Tetracyclines Allergy Unknown SKIN RASH Verified 12/13/18 10:54 General Stated Complaint: GenMedical CHER: 4 Review of Systems Review of Systems No recent illness. 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) Nuclear sclerotic cataract of right eye (Resolved) Peripheral neuropathy (Chronic 02/21/15) Post herpetic neuralgia Posterior subcapsular age-related cataract, right eye (Resolved) Primary malignant neoplasm of oropharynx (Chronic) Pulmonary nodule, right (Chronic 05/30/15) Restless leg syndrome (Chronic 02/21/15) Tobacco use (Inactive) Surgical History Colonoscopy - MAC (12/22/16) EGD - MAC (07/06/17) 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 Pleasant, well groomed, interactive. HEAD: Normocephalic, atraumatic ENT: Mucous membranes moist, oropharynx unremarkable, External ear exam unremarkable EYES: PERRL, EOMI NECK: Full ROM, no LANI, no menigismus ABDOMEN: Soft, nontender, no mass. +Bowel sounds. G-tube site clean dry and intact. Abdomen is without significant finding EXT: Full ROM, no edema, no rash Neuro: Grossly normal neurologic exam, conversant, interactive. Psych: Speech fluent, thoughts congruent, affect normal Course Vital Signs Temperature 37.0 C 01/17/19 19:52 Pulse 77 01/17/19 19:52 Respiratory Rate 16 01/17/19 19:52 Blood Pressure 124/70 01/17/19 19:52 Pulse Oximetry 93 L 01/17/19 19:52 Temperature 37.0 C 01/17/19 19:52 Temperature Source Skin 01/17/19 19:52 Pulse 77 01/17/19 19:52 Respiratory Rate 16 01/17/19 19:52 Blood Pressure 124/70 01/17/19 19:52 Blood Pressure Position Supine 01/17/19 19:52 Pulse Oximetry 93 L 01/17/19 19:52 Oxygen Delivery Method Room Air 01/17/19 19:52 Oxygen Flow Rate 0 01/17/19 19:52 Pain Level 0 01/17/19 19:52
--- NOTE | 2019-01-17 20:20 | DI.RAD_ITS ---
SYMPTOM/DIAGNOSIS: MALFUNCTIONING G TUBE FPA: A PEG tube is seen which appears to be located within the stomach. Contrast is seen in the stomach and small bowel. There is no bowel dilatation. IMPRESSION: PEG tube appears appropriately positioned within the stomach. An abdominal aortic aneurysm is also present.
[2019-01-17] MEDS: Omnipaque 350 MG/ML 50 ML BTL IJ (20:23)
--- NOTE | 2019-01-17 20:39 | DI.VRAD_ITS ---
EXAM: XR Abdomen, 1 View EXAM DATE/TIME: 01/17/2019 7:54 PM CLINICAL HISTORY: 74 years old, male; Device placement; Gi device; Gastrostomy, other; Prior surgery; Surgery date: 6+ months; Patient HX: Images done after omnipaque injected in g tube by Dr. Ivy in er to evaluate g tube malfunctioning TECHNIQUE: Imaging protocol: Frontal supine view of the abdomen/pelvis. COMPARISON: CR XR ABDOMEN FLAT PLATE 05/15/2019 02:00 FINDINGS: Tubes, catheters and devices: PEG tube in place. Gastrointestinal tract: Contrast is noted in the proximal small bowel over the mid abdomen. Bowel gas pattern is unremarkable. Intraperitoneal space: Measuring from a linear calcification on the right to the left is roughly 6 cm. Vasculature: Atherosclerotic calcification. There appears to be a distal abdominal aortic aneurysm. Recommend further evaluation for abdominal aortic aneurysm. Bones/joints: Unremarkable for age. IMPRESSION: 1. Suspect distal abdominal aortic aneurysm measuring roughly 6.0 cm. Recommend ultrasound or CT for further evaluation. 2. PEG tube in place. Contrast in the proximal small bowel. Dictated and Authenticated by: Tana Powers MD. Ordering:PATRIA Mcnamara MD
[2019-01-17 20:46] VITALS: BP 124/70; PULSE 77; RESP 15; TEMP 37; O2SAT 93
== END 2019-01-17 20:42 | disposition home or self-care (01) ==
PROVIDERS: Emergency Provider Emergency Medicine; PCP Family Medicine
DX: K94.23 Gastrostomy malfunction (principal); J44.9 Chronic obstructive pulmonary disease, unspecified; Z87.891 Personal history of nicotine dependence; I10 Essential (primary) hypertension; C32.9 Malignant neoplasm of larynx, unspecified
CPT/HCPCS: 43762; 74018; Q9967

== ENCOUNTER 2019-01-27 05:35 | Emergency (ER) | payer MEDICARE, OTHER, SELFPAY ==
[2019-01-27 05:38] VITALS: BP 193/85; PULSE 78; RESP 24; TEMP 36.6; O2SAT 91
--- NOTE | 2019-01-27 06:31 | ED.GENADUL_ITS ---
Discharge Plan Disposition Patient Disposition: HOME Condition: Good Discharge Details Chief Complaint: GenMedical Clinical Impression: Encounter for feeding tube placement Primary Care Provider: Jackie Prasad ED Provider: Emanuel Ramirez and New Rx's Prescriptions: Continued alfuzosin [Uroxatral] 10 mg tablet extended release 24 hr 10 mg PO DAILY Qty: 90 RF: 3 Adult 50+ Probiotic 4 billion cell capsule 4,000 mmu cells PO DAILY RF: 0 omeprazole 20 mg capsule,delayed release(DR/EC) 20 mg PO DAILY Qty: 30 RF: 6 oxycodone 5 mg/5 mL solution 5 mg PO Q8H MDD 15ml PRN (Reason: pain) Qty: 75 RF: 0 melatonin 3 MG tablet 3 mg PO HS Qty: 90 RF: 2 ipratropium-albuterol 3 ML solution for nebulization 0.5 mg IN TID PRNQty: 3 RF: 3 acetaminophen [Tylenol Extra Strength] 500 mg tablet 1,000 mg PO .1600, 2200 PRNRF: 0 ropinirole 1 mg tablet 2 mg PO .2200 HS RF: 0 ferrous sulfate 220 mg (44 mg iron)/5 mL solution 330 mg Feeding Tube BID Qty: 473 RF: 5 rosuvastatin [Crestor] 40 mg tablet 40 mg PO DAILY Qty: 90 RF: 4 gabapentin 300 mg capsule 300 mg PO HS Qty: 90 RF: 6 levothyroxine [Synthroid] 112 mcg tablet 112 mcg PO DAILY Qty: 90 RF: 1 3 mLs Saline Vials 1 vial inhalation QID Qty: 120 RF: 4 citalopram 20 mg tablet 20 mg PO DAILY Qty: 30 RF: 2 Discharge Instructions Additional Instructions: X-ray confirms contrast within the intestine. The skin pain itself should get better and is probably related to irritation. Return to ED for abdominal pain, fever, increasing pain or redness around the site in the skin. Referrals: Jackie Prasad MD [Primary Care Provider] - Medical Decision Making Site appears a little irritated but otherwise looks well. Abdomen is benign. New Nasim tube was placed without significant difficulty and 5 cc of sterile w ater injected into the balloon. Patient then went to x-ray and contrast injected. Spoke with Dr. Yo who states the contrast is definitely within intestine but he is unable to specifically see the tube itself. However, there is no extravasation of contrast. Patient has discomfort externally around the skin site with manipulation of the Nasim tube. Describes it as a stinging sensation. Likely related to the mild skin irritation and breakdown. His abdomen itself is benign. Keep tube in place and patient will be discharged home. HPI General Mode of arrival: ambulatory . Date/Time Provider Initiated Documentation: 01/27/19 06:31 . Limitations to Documentation: no limitations . Information obtained by: patient . HPI Narrative: Patient presents to ED because his feeding button came out this morning. It has been in place for some time. He denies having any abdominal pain. He brought the old button in with him. Related Data Home Medications Medication Instructions Recorded Confirmed melatonin 3 mg PO HS #90 tab-cap 08/13/17 01/11/19 ipratropium-albuterol 0.5 mg IN TID PRN #3 box 01/11/18 01/11/19 acetaminophen 500 mg tablet 1,000 mg PO .1600, 2200 PRN tab 04/05/18 01/11/19 omeprazole 20 mg capsule,delayed 20 mg PO DAILY #30 cap 08/16/18 01/11/19 release ferrous sulfate 220 mg (44 mg 330 mg FEEDING TUBE BID #473 ml 08/30/18 01/11/19 iron)/5 mL oral solution ropinirole 1 mg tablet 2 mg PO .2200 HS tab 08/30/18 01/11/19 lactobacillus combination no.9 4 4,000 mmu cells PO DAILY 09/15/18 01/11/19 billion cell capsule alfuzosin 10 mg tablet,extended 10 mg PO DAILY #90 tab-cap 09/17/18 01/11/19 release 24 hr rosuvastatin 40 mg tablet 40 mg PO DAILY #90 tab 11/18/18 01/11/19 oxycodone 5 mg/5 mL oral solution 5 mg PO Q8H PRN #75 ml MDD 15ml 11/30/18 01/11/19 gabapentin 300 mg capsule 300 mg PO HS #90 cap 12/14/18 01/11/19 levothyroxine 112 mcg tablet 112 mcg PO DAILY #90 tab 12/21/18 01/11/19 3 mLs Saline Vials 1 vial INHALATION QID #120 vial 01/06/19 01/11/19 citalopram 20 mg tablet 20 mg PO DAILY #30 tab 01/17/19 Previous Rx's Medication Instructions Recorded melatonin 3 mg PO HS #90 tab-cap 08/13/17 omeprazole 20 mg capsule,delayed 20 mg PO DAILY #30 cap 08/16/18 release ferrous sulfate 220 mg (44 mg 330 mg FEEDING TUBE BID #473 ml 08/30/18 iron)/5 mL oral solution alfuzosin 10 mg tablet,extended 10 mg PO DAILY #90 tab-cap 09/17/18 release 24 hr rosuvastatin 40 mg tablet 40 mg PO DAILY #90 tab 11/18/18 oxycodone 5 mg/5 mL oral solution 5 mg PO Q8H PRN #75 ml MDD 15ml 11/30/18 gabapentin 300 mg capsule 300 mg PO HS #90 cap 12/14/18 levothyroxine 112 mcg tablet 112 mcg PO DAILY #90 tab 12/21/18 3 mLs Saline Vials 1 vial INHALATION QID #120 vial 01/06/19 citalopram 20 mg tablet 20 mg PO DAILY #30 tab 01/17/19 Allergies Allergy/AdvReac Type Severity Reaction Status Date / Time pollen extracts Allergy Mild Verified 01/27/19 05:44 Tetracyclines Allergy Unknown SKIN RASH Verified 01/27/19 05:44 General Stated Complaint: GenMedical CHER: 4 Review of Systems Constitutional Denies fever(s) Gastrointestinal Denies abdominal pain, Denies nausea and Denies vomiting PFSH Medical History Alcohol abuse (Inactive) Anxiety CAD (coronary artery disease) (Chronic) Complaint associated with gastric tube (Chronic) COPD (chronic obstructive pulmonary disease) Cortical cataract of right eye (Resolved) Depression Hyperlipemia Hypertension Hypothyroidism Laryngeal cancer 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) Nuclear sclerotic cataract of right eye (Resolved) Peripheral neuropathy (Chronic 02/21/15) Post herpetic neuralgia Posterior subcapsular age-related cataract, right eye (Resolved) Primary malignant neoplasm of oropharynx (Chronic) Pulmonary nodule, right (Chronic 05/30/15) Restless leg syndrome (Chronic 02/21/15) Tobacco use (Inactive) Surgical History Colonoscopy - MAC (12/22/16) EGD - MAC (07/06/17) 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) History of tarsorrhaphy (Chronic) PROCEDURES Status post cataract extraction and insertion of intraocular lens of left eye (Chronic 04/30/12) Status post cataract extraction and insertion of intraocular lens of right eye (Chronic 07/12/18) Social History Smoking/Tobacco Use Status: Former Tobacco Use Tobacco: How many years used: 30 Alcohol Intake: never Drug use: Never Substance use type: does not use Do you feel safe at home: Yes Do you feel safe in your relationship?: Yes Exam Const General: cooperative and no acute distress Orientation: alert and oriented x3 Resp Effort & Inspection: normal respiratory effort GI Inspection: normal to inspection and other (stoma entrance with mild irritation around it) Palpation: soft, not firm, no guarding and nontender Skin General skin exam: no erythema and other (some irritation/breakdown around the stoma site; no erythema) Course Vital Signs Temperature 97.9 F 01/27/19 05:38 Pulse 78 01/27/19 05:38 Respiratory Rate 24 01/27/19 05:38 Blood Pressure 193/85 H 01/27/19 05:38 Pulse Oximetry 91 L 01/27/19 05:38 Temperature 97.9 F 01/27/19 05:38 Temperature Source Skin 01/27/19 05:38 Pulse 78 01/27/19 05:38 Respiratory Rate 24 01/27/19 05:38 Respiratory Effort 01/27/19 05:43 Blood Pressure 193/85 H 01/27/19 05:38 Blood Pressure Position Sitting 01/27/19 05:38 Pulse Oximetry 91 L 01/27/19 05:38 Oxygen Delivery Method Room Air 01/27/19 05:38 Oxygen Flow Rate 0 01/27/19 05:38
--- NOTE | 2019-01-27 07:25 | DI.RAD_ITS ---
SYMPTOM/DIAGNOSIS CHECK TUBE PLACEMENT ABDOMEN: 01/27 Two views were obtained. The patient reportedly has a gastrostomy tube. The tube is difficult to delineate on these images but contrast injection shows contrast material in the stomach and small bowel with no extravasated contrast material. No evidence of obstruction.
== END 2019-01-27 08:10 | disposition home or self-care (01) ==
PROVIDERS: Emergency Provider Emergency Medicine; PCP Family Medicine
DX: K94.23 Gastrostomy malfunction (principal); J44.9 Chronic obstructive pulmonary disease, unspecified; Z87.891 Personal history of nicotine dependence; I10 Essential (primary) hypertension; C32.9 Malignant neoplasm of larynx, unspecified
CPT/HCPCS: 43762; 74018

== ENCOUNTER 2019-03-07 00:36 | Outpatient (CLI) | payer MEDICARE, OTHER, SELFPAY ==
--- NOTE | 2019-03-07 07:29 | DI.US_ITS ---
EXAM: US AAA DIAGNOSTIC CLINICAL HISTORY: yearly f/u AAA/ last U/S in : 4.65cm. TECHNIQUE: Ultrasound performed using standard protocol. COMPARISON: AAA DIAGNOSTIC/FOLLOW UP from 12/10/2017 FINDINGS: The proximal aorta measures 2.1 x 2.2 cm. The mid abdominal aorta measures 2.3 x 2.3 cm. The distal abdominal aorta measures 5.1 x 5.4 x 5.1 cm. The left iliac measures 1.3 x 1.4 cm. The right iliac me asures 1.6 x 1.5 cm. IMPRESSION: Compared with the previous examination of 12/10/2017, there has been some interval increase in the siz e of a distal abdominal aortic aneurysm.
== END 2019-03-07 00:56 ==
PROVIDERS: PCP Family Medicine; Visit Provider Family Medicine
DX: I71.4 Abdominal aortic aneurysm, without rupture (principal)
CPT/HCPCS: 76775

== ENCOUNTER 2019-03-08 11:48 | Outpatient (CLI) | payer MEDICARE, SELFPAY ==
[2019-03-08 12:40] LABS: HCT 49.2 % (40.0-50.0)
[2019-03-08 13:21] LABS: Iron 58 ug/dL (50-175); Total Iron Binding Capacity 397 ug/dL (250-450); Transferrin Sat 15 % (20-55)
[2019-03-08 13:34] LABS: ALT 23 U/L (16-63); AST 19 U/L (15-37); Albumin 3.6 g/dL (3.4-5.0); Alkaline Phosphatase 91 U/L (46-116); Anion Gap 8.9 mmol/L (3-11); BUN 23 mg/dL (7-18); Bilirubin, Total 0.6 mg/dL (0.2-1.0); CO2 31.1 mmol/L (21.0-32.0); Calcium 8.8 mg/dL (8.5-10.1); Chloride 101 mmol/L (98-107); Ferritin 97 ng/mL (8-388); Glucose 103 mg/dL (70-100); Potassium 4.7 mmol/L (3.5-5.1); Sodium 141 mmol/L (136-145)
== END 2019-03-08 12:08 ==
PROVIDERS: PCP Family Medicine; Visit Provider Family Medicine
DX: D50.9 Iron deficiency anemia, unspecified (principal); I10 Essential (primary) hypertension
CPT/HCPCS: 36415; 80053; 82728; 83540; 83550; 85014; 85018

== ENCOUNTER 2019-03-11 12:58 | Emergency (ER) | payer MEDICARE, SELFPAY ==
[2019-03-11 12:59] VITALS: PULSE 85; TEMP 37.6; O2SAT 84
[2019-03-11 13:17] VITALS: BP 186/52; PULSE 92; RESP 18; O2SAT 94
--- NOTE | 2019-03-11 13:21 | DI.RAD_ITS ---
EXAM: XR KNEE LT 2V AP,LAT INDICATION: Anterior pain after fall. COMPARISON: RIGHT KNEE 3 VIEWS from 01/24/2011 TECHNIQUE: 2D digital imaging was performed. FINDINGS: Two views were obtained. There is a transverse patellar fracture with mild displacement. No additio nal fracture seen. IMPRESSION:
--- NOTE | 2019-03-11 13:21 | DI.RAD_ITS ---
EXAM: XR TOE LT GREAT INDICATION: Pain after fall. COMPARISON: No exams were available for comparison TECHNIQUE: 2D digital imaging was performed. FINDINGS: Three views were obtained. There are degenerative changes of the joints of the forefoot and midfoot. There is a mildly comminuted mildly displaced fracture of the base of the distal phalanx the great toe. No additional fracture seen. IMPRESSION:
--- NOTE | 2019-03-11 13:21 | DI.RAD_ITS ---
EXAM: XR CHEST 2V PA LATERAL INDICATION: General weakness, tracheostomy. COMPARISON: XR PORTABLE CHEST AP from 12/01/2018 TECHNIQUE: 2D digital imaging was performed. FINDINGS: The heart is mildly enlarged. Lungs are clear except for some chronic fibrotic changes. No pleural effusion seen. No change in appearance from chest film of December 01. IMPRESSION: No evidence of acute process
--- NOTE | 2019-03-11 13:23 | W.ED.GENAD ---
Discharge Plan Disposition Patient Disposition: HOME Condition: Improving Discharge Details Chief Complaint: Fever Clinical Impression: Closed fracture of left patella, Closed fracture of left great toe, Urinary tract infection Primary Care Provider: Jackie Prasad ED Provider: Anders Ivy Home Meds and New Rx's Prescriptions: New cephalexin 500 mg capsule 500 mg PO TID 7 Days Qty: 21 RF: 0 Continued alfuzosin [Uroxatral] 10 mg tablet extended release 24 hr 10 mg PO DAILY Qty: 90 RF: 3 Adult 50+ Probiotic 4 billion cell capsule 4,000 mmu cells PO DAILY RF: 0 gabapentin 300 mg capsule 300 mg PO HS Qty: 90 RF: 6 oxycodone 5 mg/5 mL solution 5 mg PO Q8H MDD 15ml PRN (Reason: pain) Qty: 75 RF: 0 melatonin 3 MG tablet 3 mg PO HS Qty: 90 RF: 2 ipratropium-albuterol 3 ML solution for nebulization 0.5 mg IN TID PRNQty: 3 RF: 3 acetaminophen [Tylenol Extra Strength] 500 mg tablet 1,000 mg PO .1600, 2200 PRNRF: 0 ropinirole 1 mg tablet 2 mg PO .2200 HS RF: 0 rosuvastatin [Crestor] 40 mg tablet 40 mg PO DAILY Qty: 90 RF: 4 levothyroxine [Synthroid] 112 mcg tablet 112 mcg PO DAILY Qty: 90 RF: 1 3 mLs Saline Vials 1 vial inhalation QID Qty: 120 RF: 4 citalopram 20 mg tablet 20 mg PO DAILY Qty: 30 RF: 2 omeprazole 20 mg capsule,delayed release(DR/EC) 20 mg PO DAILY Qty: 30 RF: 6 ferrous sulfate 220 mg (44 mg iron)/5 mL solution 330 mg Feeding Tube DAILY Qty: 473 RF: 5 Discharge Instructions Instructions: Urinary Tract Infection in Men (ED), Patellar Fracture (ED) Medical Decision Making 74-year-old male presents from home after fall last night at 02 100 in which he struck his left anterior knee and left great toe. Is had pain since that time. He has a laryngectomy with tracheostomy. He was slightly hypoxic but improved with oxygen which he has available for use at home. He arrives with a blood pressure 186/52, pulse 92, 94% sat. He is interactive and without distress. Tender overlying the left patella and minimally over the left great toe. X-rays reveal a left transverse patella fracture with mild displacement. There is a mildly comminuted fracture of the distal phalanx of the great toe on the left. Medical work-up reveals a white blood cell count of 8, hematocrit 48, platelets 228. Chemistries unremarkable. Urinalysis with small leuk esterase, 10-20 white blood cells, few epithelial cells and few bacteria. Placed in straight leg brace for left patella fracture and patient able to ambulate with physical therapy. They recommend a commode and home health. Will refer to orthopedics for outpatient follow-up. Will treat his UTI with a course of Keflex. Patient seen by care management and referrals for home health complication for commode are made. HPI General Date/Time Provider Initiated Documentation: 03/11/19 13:00. Limitations to Documentation: no limitations. Information obtained by: patient. History of Present Illness 74 year old M presents to the emergency department with the chief complaint of Left knee pain left great toe pain, generalized weakness, fall, Quality is described as dull, and is localized to the left and lower extremity. Patient reports no radiation. Patient started experiencing this hour(s) and it has been constant. Rest improves symptom(s), Movement worsens symptoms . Patient notes no other symptoms.; denies syncope. Patient did receive the following treatments prior to arrival, none Related Data Home Medications Medication Instructions Recorded Confirmed melatonin 3 mg PO HS #90 tab-cap 08/13/17 02/16/19 ipratropium-albuterol 0.5 mg IN TID PRN #3 box 01/11/18 02/16/19 acetaminophen 500 mg tablet 1,000 mg PO .1600, 2200 PRN tab 04/05/18 02/16/19 ropinirole 1 mg tablet 2 mg PO .2200 HS tab 08/30/18 02/16/19 lactobacillus combination no.9 4 4,000 mmu cells PO DAILY 09/15/18 02/16/19 billion cell capsule alfuzosin 10 mg tablet,extended 10 mg PO DAILY #90 tab-cap 09/17/18 02/16/19 release 24 hr rosuvastatin 40 mg tablet 40 mg PO DAILY #90 tab 11/18/18 02/16/19 oxycodone 5 mg/5 mL oral solution 5 mg PO Q8H PRN #75 ml MDD 15ml 11/30/18 02/16/19 levothyroxine 112 mcg tablet 112 mcg PO DAILY #90 tab 12/21/18 02/16/19 3 mLs Saline Vials 1 vial INHALATION QID #120 vial 01/06/19 02/16/19 citalopram 20 mg tablet 20 mg PO DAILY #30 tab 01/17/19 02/16/19 gabapentin 300 mg capsule 300 mg PO HS #90 cap 02/16/19 02/16/19 omeprazole 20 mg capsule,delayed 20 mg PO DAILY #30 cap 03/07/19 release ferrous sulfate 220 mg (44 mg 330 mg FEEDING TUBE DAILY #473 ml 03/08/19 iron)/5 mL oral solution cephalexin 500 mg PO TID 7 Days #21 cap 03/11/19 Previous Rx's Medication Instructions Recorded melatonin 3 mg PO HS #90 tab-cap 08/13/17 alfuzosin 10 mg tablet,extended 10 mg PO DAILY #90 tab-cap 09/17/18 release 24 hr rosuvastatin 40 mg tablet 40 mg PO DAILY #90 tab 11/18/18 oxycodone 5 mg/5 mL oral solution 5 mg PO Q8H PRN #75 ml MDD 15ml 11/30/18 levothyroxine 112 mcg tablet 112 mcg PO DAILY #90 tab 12/21/18 3 mLs Saline Vials 1 vial INHALATION QID #120 vial 01/06/19 citalopram 20 mg tablet 20 mg PO DAILY #30 tab 01/17/19 gabapentin 300 mg capsule 300 mg PO HS #90 cap 02/16/19 omeprazole 20 mg capsule,delayed 20 mg PO DAILY #30 cap 03/07/19 release ferrous sulfate 220 mg (44 mg 330 mg FEEDING TUBE DAILY #473 ml 03/08/19 iron)/5 mL oral solution cephalexin 500 mg PO TID 7 Days #21 cap 03/11/19 Allergies Allergy/AdvReac Type Severity Reaction Status Date / Time pollen extracts Allergy Mild Verified 02/16/19 09:07 Tetracyclines Allergy Unknown SKIN RASH Verified 02/16/19 09:07 General Stated Complaint: Fever CHER: 2 Review of Systems Review of Systems Narrative: Patient denies fever. There was question of subjective fever per EMS. He has chronic cough. He complains of left knee and left great toe pain. No syncope. No chest pain. 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) Sin-mullins button placed by Dr Elia Mcdonald [facility] History of tarsorrhaphy (Chronic) PROCEDURES RT/LEFT HEART CARD CATH COMPLETE LARYNGECTOMY Esophagoplasty Status post cataract extraction and insertion of intraocular lens of left eye (Chronic 04/30/12) Status post cataract extraction and insertion of intraocular lens of right eye (Chronic 07/12/18) Social History Smoking/Tobacco Use Status: Former Tobacco Use Tobacco: How many years used: 30 Alcohol Intake: never Drug use: Never Substance use type: does not use Do you feel safe at home: Yes Do you feel safe in your relationship?: Yes Exam Narrative Exam Narrative: GEN: awake, alert, oriented 3. Pleasant, well groomed, interactive. HEAD: Normocephalic, atraumatic ENT: Mucous membranes moist, oropharynx unremarkable, External ear exam unremarkable EYES: PERRL, EOMI NECK: Tracheostomy CHEST/RESP: Nontender, clear to auscultation bilateral, no wheeze/rhonchi/rales CARDIOVASCULAR: RRR, no murmur, rub katie. 2+ Rad pulse bilateral ABDOMEN: Soft, nontender, no mass. +Bowel sounds EXT: Left great toe ecchymosis and distal tenderness. Left knee ecchymotic and tender anteriorly. Range of motion limited by pain left, no edema, no rash Neuro: Grossly normal neurologic exam, conversant, interactive. Psych: Speech fluent, thoughts congruent, affect normal Course Vital Signs Vital signs: Vital Signs Temperature 37.6 C 03/11/19 12:59 Pulse 85 03/11/19 12:59 Pulse Oximetry 84 L 03/11/19 12:59 Temperature 37.6 C 03/11/19 12:59 Temperature Source Oral 03/11/19 12:59 Pulse 92 H 03/11/19 13:17 Respiratory Rate 18 03/11/19 13:17 Respiratory Effort Non-Labored 03/11/19 13:19 Blood Pressure 186/52 H 03/11/19 13:17 Pulse Oximetry 94 L 03/11/19 13:17 Oxygen Delivery Method Trach Collar 03/11/19 13:17 Oxygen Flow Rate 3 03/11/19 12:59 Fraction of Inspired Oxygen (FIO2) 28 03/11/19 13:17
[2019-03-11] MEDS: Ketorolac 15 MG/ML VIAL (13:26)
[2019-03-11 13:44] LABS: Abs Immature Grans 0.01 k/cumm (0.0-0.09); Absolute Basophil Count 0.07 k/cumm (0.0-0.2); Absolute Eosinophil Count 0.06 k/cumm (0.0-0.7); Absolute Lymphocyte Count 0.67 k/cumm (1.2-3.4); Absolute Monocyte Count 0.95 k/cumm (0.11-0.7); Absolute Neutrophil Count 6.87 k/cumm (1.2-6.7); Basophils % 0.8; Eosinophils % 0.7; HCT 48.3 % (40.0-50.0); HGB 15.8 g/dL (13.5-17.5); Immature Grans % 0.1; Lymphocytes % 7.8; Mean Corp. HGB Concentration 32.7 g/dL (32.0-36.0); Mean Corpuscular Hemoglobin 30.9 pg (27.0-33.0); Mean Corpuscular Volume 94.3 fL (80-95); Mean Platelet Volume 10.2 fL (8.0-11.0); Neutrophils % 79.6; Platelet Count 228 x1000/uL (130-400); RBC 5.12 m/cumm (4.50-6.00); RBC Distribution Width 14.9 % (11.8-14.1); White Blood Cell Count 8.63 k/cumm (4.4-10.8)
--- NOTE | 2019-03-11 13:49 | NUR.NOTE ---
Nursing Note:pt to x-ray. medication list reconciliation list requested from [facility]
[2019-03-11 13:50] LABS: Bilirubin Negative (Negative); Blood Trace-intact (Negative); Clarity Clear (Clear); Glucose Negative (Negative); Ketones Negative (Negative); Leukocyte Esterase Small (Negative); Nitrite Negative (Negative); Specific Gravity 1.015 (1.005-1.025); Urobilinogen 0.2 EU/dL (Up TO 0.2)
[2019-03-11 13:52] LABS: ALT 24 U/L (16-63); AST 28 U/L (15-37); Albumin 3.6 g/dL (3.4-5.0); Alkaline Phosphatase 85 U/L (46-116); Anion Gap 7.7 mmol/L (3-11); BUN 22 mg/dL (7-18); Bilirubin, Total 0.6 mg/dL (0.2-1.0); CO2 30.3 mmol/L (21.0-32.0); CREATININE 0.98 mg/dL (0.70-1.30); Calcium 8.5 mg/dL (8.5-10.1); Chloride 99 mmol/L (98-107); Glucose 101 mg/dL (70-100); Potassium 4.4 mmol/L (3.5-5.1); Sodium 137 mmol/L (136-145); Total Protein 7.7 g/dL (6.4-8.2)
[2019-03-11 13:58] LABS: Bacteria Few HPF (Negative); C & S Indicated? Yes; Casts Negative LPF (Negative); Crystals Negative HPF (Negative); Epithelial Cells Few HPF (Negative); Mucus Negative (Negative)
--- NOTE | 2019-03-11 15:13 | NUR.NOTE ---
Nursing Note: physical therapy at bedside.
--- NOTE | 2019-03-11 15:56 | PT.INIE ---
Date of service: 03/11/19 Time of Service: 14:57 PT Notes Inpatient Physical Therapy Evaluation Date: 03/11/2019 Referring Doctor: Anders Ivy MD PT Orders: PT CONSULT: Limited ability Precautions: Fall. Standard. Weight bearing as tolerated on the left LE. Patient Profile/Admitting Diagnosis: Patient is a 74-year-old male with past medical history significant for primary malignant neoplasm of oropharynx S/P laryngectomy, restless leg syndrome, coronary artery disease, hypertension, and peripheral neuropathy who presented to the ED on 03/11/2019 with chief complaints of pain on the left knee and foot sustained from a mechanical fall the previous night when patient tripped on his oxygen tubing on his way to the bathroom. Radiographs as interpreted by MD demonstrated left transverse patellar fracture with mild displacement and mild comminuted fracture of the distal phalanx of the L great toe. Referral for physical therapy services was made in order to assess for ability of the patient to ambulate to determine safety of home discharge. 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) Nuclear sclerotic cataract of right eye (Resolved) Peripheral neuropathy (Chronic 02/21/15) Post herpetic neuralgia Posterior subcapsular age-related cataract, right eye (Resolved) Primary malignant neoplasm of oropharynx (Chronic) Pulmonary nodule, right (Chronic 05/30/15) Restless leg syndrome (Chronic 02/21/15) Tobacco use (Inactive) Surgical History Colonoscopy - MAC (12/22/16) EGD - MAC (07/06/17) 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 Patient has an additional 7 steps with a rail on the right going up to negotiate inside the house to get to the living room where his bedroom is. Patient also has a nephew who is able to help as needed. He is independent with functional mobility performance. Significant other takes charge of preparing meals for patient. Patient reports that he recently has just been discharged from home health services as he has already reached his highest functional level. Equipment Owned/DME: FWW, augmentative speech device, oxygen supplementation Subjective: Patient consented to a physical therapy evaluation. He is leary about going home before mobility assessment for patient was started. He reports that he has not fallen in the past 12 months and that home health physical therapy recently discharged him from services as he already has reached his highest functional level. He expressed his concerns about getting in and out of of his car as he can potentially go home this afternoon. Objective: General Observation: Patient seen lying in ICU bed with oxygen supplementation via tracheostomy tube. Patient has an augmentative speech device in use. Knee immobilizer on left knee. Left big toe rossy taped to second toe on the left side. Mental Status: Alert and oriented as to person, place, time, and purpose Pain: 5/10 with weightbearing ROM: Right Upper Extremity: Shoulder Flexion WFL. Shoulder abduction WFL. Elbow flexion WFL. Wrist flexion WFL. Opening and closing of hand WFL. Left Upper Extremity: Shoulder Flexion WFL. Shoulder abduction WFL. Elbow flexion WFL. Wrist flexion WFL. Opening and closing of hand WFL. Right Lower Extremity: Hip flexion WFL. Hip abduction WFL. Knee flexion WFL. Ankle dorsiflexion WFL. Ankle plantarflexion WFL. Left Lower Extremity: Hip flexion WFL. Hip abduction WFL. Knee flexion WFL. Ankle dorsiflexion WFL. Ankle plantarflexion WFL. Strength: Right Upper Extremity: Shoulder flexors 4/5. Shoulder abductors 4/5. Elbow flexors 4/5. Elbow extensors 4/5. Water Quality Technician strong. Left Upper Extremity: Shoulder flexors 4/5. Shoulder abductors 4/5. Elbow flexors 4/5. Elbow extensors 4/5. Water Quality Technician strong. Right Lower Extremity: Hip flexors 4-/5. Hip abductors 4/5. Knee flexors 4/5. Knee extensors 4/5. Ankle dorsiflexors 5/5. Ankle plantarflexors 5/5. Left Lower Extremity:Hip flexors 4-/5. Hip abductors 4/5. Knee flexors NT due to new patellar fracture, L knee on knee immobilizer . Knee extensors NT due to new patellar fracture, L knee on knee immobilizer. Ankle dorsiflexors 4-/5. Ankle plantarflexors 4-/5. Bed Mobility/Transfers: Rolling independent Supine to sit independent Sit to supine independent Sit to stand SBA, needs to use both hands for support Stand to sit SBA, needs to use both hands for support Bed to chair SBA, needs to use both hands for support Chair to bed SBA, needs to use both hands for support Gait: Patient tolerated level surface ambulation from side of ICU bed to the nurses station and back without resting requiring only contact guard assist from PT and minimal verbal cues for walker management and overall safety while on 2 L of oxygen supplementation via tracheostomy tube. Balance: Static Sitting: Normal Dynamic Sitting: Normal Static Standing: Fair Dynamic Standing: Fair Special Tests: Mobility Limitations Standardized Measure [facility] AM-PAC 6 clicks Basic Mobility Inpatient Short Form: Raw Score: 22 CMS Score: 21% deficit Informed Consent/Education: Patient instructed in purpose of PT consult and plan of care. He was also advised about the need to use a bedside commode while he is recovering from recent knee and big toe fracture for all nighttime toileting tasks. He is agreeable to having home health physical therapy in order to ensure home safety and assess for additional equipment needs. Assessment: Patient is a 74-year-old male with no history of falls for the past 12 months except for last night's incident. He has bilateral peripheral neuropathies as well as a restless leg syndrome which may complicate current diagnosis. Patient was advised to use a front rolled walker in order to maximize functional mobility performance at home while reducing risk for falls. He has the needed support at discharge destination. Patient presents with clinical signs and symptoms consistent with current/admitting diagnoses that have resulted to mobility limitations, gait instability, generalized weakness, and impairment of motor control as demonstrated by the following impairment level findings: 1. Decreased strength to B LE major muscle groups 2. Impaired sitting/standing balance 3. Impaired activity tolerance 4. Limitation of joint range of motion in left knee and ankle Impairments are contributing to the following functional limitations: 1. Inability to safely ambulate without assistive device and physical assistance 2. Increase completion time for mobility ADL performance 3. Increased fall risk 4. Inability to negotiate steps alone safely Patient is assessed as a 83900 low complexity based on the following: History: 74-year-old male with extensive past medical history who sustained a left transverse patellar fracture with mild displacement and mild comminuted fracture of the distal phalanx of the L great toe due to a mechanical fall Examination: Demonstrable impairment in strength, balance, and range of motion with underlying impairments and functional limitations as documented above Presentation:Evolving Decision Makin low complexity DISCHARGE RECOMMENDATIONS: Patient will benefit from home health physical therapy services in order to facilitate a smoother transition back to home in light of new mobility limitations placed by patellar and distal big toe phalanx fracture on the left side. He will require functional mobility training at home in order to reduce fall risk. Patient will benefit from the use of a bedside commode for nighttime toileting. He will also need to use a front-wheeled walker for all mobility ADL performance in order to maximize independence with all transfers and ambulation task performance. TREATMENT CODE/TIME: 34050 x 39 minutes beginning at 14:57 PM. Thank you very much for this referral. Vanessa Brown PT, DPT, CLT [facility]
[2019-03-11 16:30] VITALS: BP 147/77; PULSE 82; TEMP 37.1
[2019-03-11] MEDS: Cephalexin 250 MG CAP 500 MG PO (16:39)
[2019-03-11] MEDS: Cephalexin 500 MG CAP PO (16:39)
[2019-03-11 17:04] VITALS: BP 117/89; PULSE 79; RESP 20; TEMP 37.3; O2SAT 95
== END 2019-03-11 17:06 | disposition home or self-care (01) ==
PROVIDERS: Emergency Provider Emergency Medicine; PCP Family Medicine
DX: S82.032A Displaced transverse fracture of left patella, initial encounter for closed fracture (principal); S92.422A Displaced fracture of distal phalanx of left great toe, initial encounter for closed fracture; N39.0 Urinary tract infection, site not specified; W01.0XXA Fall on same level from slipping, tripping and stumbling without subsequent striking against object, initial encounter; J44.9 Chronic obstructive pulmonary disease, unspecified; Z87.891 Personal history of nicotine dependence
CPT/HCPCS: 36415; 80053; 97161; 99284; 71046; 73560; 73660; 81003; 81015; 85025; 87086; J1885; L1830

== ENCOUNTER → 2019-03-22 07:54 | Outpatient (BNVA) | payer MEDICARE, MEDICAID, SELFPAY | PROVIDERS: PCP Family Medicine; Referring Provider Family Medicine; Visit Provider Urology | DX: N40.1 Benign prostatic hyperplasia with lower urinary tract symptoms (principal); N13.8 Other obstructive and reflux uropathy | CPT/HCPCS: 51798; 99213 ==

== ENCOUNTER 2019-03-23 15:39 | Outpatient (CLI) | payer MEDICARE, SELFPAY ==
--- NOTE | 2019-03-23 14:40 | DI.RAD_ITS ---
EXAM: XR KNEE LT 2V AP,LAT INDICATION: F/U FRACTURE. COMPARISON: XR KNEE LT 2V AP,LAT from 03/11/2019 TECHNIQUE: 2D digital imaging was performed. FINDINGS: There has been no change in the alignment of the previously noted patellar fracture. There has been change. No new abnormalities are seen.
--- NOTE | 2019-03-23 15:00 | DI.RAD_ITS ---
EXAM: XR TOE LT GREAT INDICATION: f/u fracture. COMPARISON: XR TOE LT GREAT from 03/11/2019 TECHNIQUE: 2D digital imaging was performed. FINDINGS: There has been no change in the alignment of the previously noted fracture at the base of the distal phalanx.
== END 2019-03-23 15:59 ==
PROVIDERS: PCP Family Medicine; Referring Provider Family Medicine; Visit Provider Student in an Organized Health Care Education/Training Program
DX: S92.415A Nondisplaced fracture of proximal phalanx of left great toe, initial encounter for closed fracture (principal); S82.002A Unspecified fracture of left patella, initial encounter for closed fracture; W01.0XXA Fall on same level from slipping, tripping and stumbling without subsequent striking against object, initial encounter
CPT/HCPCS: 99204; 99215; L1833; 73560; 73660

== ENCOUNTER 2019-04-07 04:08 | Emergency (ER) | payer MEDICARE, SELFPAY ==
[2019-04-07 04:14] VITALS: RESP 18; TEMP 36.7; O2SAT 87
--- NOTE | 2019-04-07 04:15 | ED.GENADUL_ITS ---
Discharge Plan Disposition Patient Disposition: HOME Condition: Good Discharge Details Chief Complaint: GenMedical Clinical Impression: Complaint associated with gastric tube Primary Care Provider: Jackie Prasad ED Provider: Emanuel Ramirez Meds and New Rx's Prescriptions: Continued alfuzosin [Uroxatral] 10 mg tablet extended release 24 hr 10 mg PO DAILY Qty: 90 RF: 3 Adult 50+ Probiotic 4 billion cell capsule 4,000 mmu cells PO DAILY RF: 0 trolamine salicylate [Myoflex] 10 % cream 1 applic TP QID PRN (Reason: muscle pain) Qty: 1 RF: 0 melatonin 3 MG tablet 3 mg PO HS Qty: 90 RF: 2 ipratropium-albuterol 3 ML solution for nebulization 0.5 mg IN TID PRNQty: 3 RF: 3 acetaminophen [Tylenol Extra Strength] 500 mg tablet 1,000 mg PO .1600, 2200 PRNRF: 0 ropinirole 1 mg tablet 2 mg PO .2200 HS RF: 0 rosuvastatin [Crestor] 40 mg tablet 40 mg PO DAILY Qty: 90 RF: 4 levothyroxine [Synthroid] 112 mcg tablet 112 mcg PO DAILY Qty: 90 RF: 1 3 mLs Saline Vials 1 vial inhalation QID Qty: 120 RF: 4 omeprazole 20 mg capsule,delayed release(DR/EC) 20 mg PO DAILY Qty: 30 RF: 6 ferrous sulfate 220 mg (44 mg iron)/5 mL solution 330 mg Feeding Tube DAILY Qty: 473 RF: 5 citalopram 20 mg tablet 20 mg PO DAILY Qty: 90 RF: 4 gabapentin 300 mg capsule 300 mg PO HS Qty: 90 RF: 6 Discharge Instructions Additional Instructions: [facility] for an appointment to evaluate whether gastrostomy site needs revision. Return to ED if abdominal pain, fever, tube not working. Referrals: [facility] [Provider Group] Medical Decision Making Patient tube placement confirmed by x-ray with Gastrografin injected through the tube. Patient doing well. Will refer to surgery for evaluation of gastrostomy site for possible revision. Return to ED for abdominal pain, fever, feeding tube not working. HPI General Date/Time Provider Initiated Documentation: 04/07/19 04:08 . Limitations to Documentation: no limitations . Information obtained by: patient and RN notes reviewed . HPI Narrative: Patient presents to the ED after his Sin-mullins feeding tube fell out about 1 hour ago. This is the same tube that I replaced in January. He has been having no major issues although his significant other reports that when she is been changing because lately the tube seems to be further out than it should be. She pushes it back in but tonight it just fell out. Related Data Home Medications Medication Instructions Recorded Confirmed melatonin 3 mg PO HS #90 tab-cap 08/13/17 04/07/19 ipratropium-albuterol 0.5 mg IN TID PRN #3 box 01/11/18 04/07/19 acetaminophen 500 mg tablet 1,000 mg PO .1600, 2200 PRN tab 04/05/18 04/07/19 ropinirole 1 mg tablet 2 mg PO .2200 HS tab 08/30/18 04/07/19 lactobacillus combination no.9 4 4,000 mmu cells PO DAILY 09/15/18 04/07/19 billion cell capsule alfuzosin 10 mg tablet,extended 10 mg PO DAILY #90 tab-cap 09/17/18 04/07/19 release 24 hr rosuvastatin 40 mg tablet 40 mg PO DAILY #90 tab 11/18/18 04/07/19 levothyroxine 112 mcg tablet 112 mcg PO DAILY #90 tab 12/21/18 04/07/19 3 mLs Saline Vials 1 vial INHALATION QID #120 vial 01/06/19 04/07/19 omeprazole 20 mg capsule,delayed 20 mg PO DAILY #30 cap 03/07/19 04/07/19 release ferrous sulfate 220 mg (44 mg 330 mg FEEDING TUBE DAILY #473 ml 03/08/19 04/07/19 iron)/5 mL oral solution trolamine salicylate 10 % topical 1 applic TP QID PRN #1 tube 03/28/19 04/07/19 cream citalopram 20 mg tablet 20 mg PO DAILY #90 tab 04/04/19 04/07/19 gabapentin 300 mg capsule 300 mg PO HS #90 cap 04/04/19 04/07/19 Previous Rx's Medication Instructions Recorded melatonin 3 mg PO HS #90 tab-cap 08/13/17 alfuzosin 10 mg tablet,extended 10 mg PO DAILY #90 tab-cap 09/17/18 release 24 hr rosuvastatin 40 mg tablet 40 mg PO DAILY #90 tab 11/18/18 levothyroxine 112 mcg tablet 112 mcg PO DAILY #90 tab 12/21/18 3 mLs Saline Vials 1 vial INHALATION QID #120 vial 01/06/19 omeprazole 20 mg capsule,delayed 20 mg PO DAILY #30 cap 03/07/19 release ferrous sulfate 220 mg (44 mg 330 mg FEEDING TUBE DAILY #473 ml 03/08/19 iron)/5 mL oral solution trolamine salicylate 10 % topical 1 applic TP QID PRN #1 tube 03/28/19 cream citalopram 20 mg tablet 20 mg PO DAILY #90 tab 04/04/19 gabapentin 300 mg capsule 300 mg PO HS #90 cap 04/04/19 Allergies Allergy/AdvReac Type Severity Reaction Status Date / Time pollen extracts Allergy Mild Verified 04/07/19 04:19 Tetracyclines Allergy Unknown SKIN RASH Verified 04/07/19 04:19 General CHER: 2 Review of Systems Constitutional Constitutional: Denies fever(s) Gastrointestinal Gastrointestinal: Denies abdominal pain PFSH Social History Smoking/Tobacco Use Status: Former Tobacco Use Tobacco: How many years used: 30 Alcohol Intake: never Drug use: Never Substance use type: does not use Current gender identity: male Do you feel safe at home: Yes Do you feel safe in your relationship?: Yes Exam Const General: cooperative, comfortable and no acute distress GI Inspection: non-distended Palpation: soft and nontender Other: Gastronomy site in left upper quadrant shows evidence of skin closure. Minimal skin irritation. 2 holes appear to be present now. Procedures Feeding Tube Replacement Type of Tube: gastrostomy Insertion Site Prior to Procedure: clean Tube Used for Reinsertion: other (Sin-mullins) Somali Tube Size (F): 18 Balloon size (mL): 5 Verification of Placement: gastrograffin injection Tube Secured by: G-tube attachment device Patient Tolerated Procedure: well Additional Comments: While waiting for Sin-mullins button to come, attempted placement of 18F Denny through hole on medial aspect of site. Some resistance and pain so downsized to 16F and with a little gentle pressure able to pass. Gastric contents visualized in tube. Denny removed and 18F Sin-mullins placed with minimal problem. Balloon blown up. Patient sent to x-ray.
--- NOTE | 2019-04-07 04:49 | NUR.NOTE ---
18 fr 5cc bulb of sterile water gerhard button placed to abdomin by Dr Ramirez without incident. Awaiting xray confirmation for placement. pt tolerated procedure well with no distress noted. Nursing Note:
--- NOTE | 2019-04-07 05:20 | DI.RAD_ITS ---
EXAM: XR ABDOMEN FLAT PLATE INDICATION: tube placement. COMPARISON: No exams were available for comparison TECHNIQUE: 2D digital imaging was performed. FINDINGS: Note is made of a small amount of contrast material in the stomach and duodenum, presumably injected through the patient's gastrostomy tube, suggesting the tip is within the stomach.
[2019-04-07] MEDS: Omnipaque 350 MG/ML 50 ML BTL IJ (05:26)
--- NOTE | 2019-04-07 05:33 | DI.VRAD_ITS ---
PROCEDURE INFORMATION: Exam: XR Abdomen, 1 View Exam date and time: 04/07/2019 4:48 AM Clinical history: 74 years old, male; Device placement; Gi device; Other: G-tube; Prior surgery; Surgery date: 6+ months; Additional info: Evaluate g-tube position TECHNIQUE: Imaging protocol: XR of the abdomen. Views: Frontal supine view of the abdomen. 1 View. COMPARISON: CR XR ABDOMEN FLAT PLATE 01/27/2019 7:22 AM FINDINGS: Gastrointestinal tract: Small amount of contrast is seen in the distribution of the stomach and duodenum. Organs: Unremarkable. Bones/joints: Unremarkable for age. IMPRESSION: There is a small amount of contrast in the stomach and duodenum presumably injected through the patient's gastrostomy tube suggesting the tip is within the stomach. Dictated and Authenticated by: Rodrigo Oropeza MD. Ordering:DAMIÁN Castellanos MD
== END 2019-04-07 05:55 | disposition home or self-care (01) ==
PROVIDERS: Emergency Provider Emergency Medicine; PCP Family Medicine
DX: T85.598A Other mechanical complication of other gastrointestinal prosthetic devices, implants and grafts, initial encounter (principal); Z46.59 Encounter for fitting and adjustment of other gastrointestinal appliance and device
CPT/HCPCS: 43762; 74018; Q9967

== ENCOUNTER → 2019-04-08 10:22 | Outpatient (BNVA) | payer MEDICARE, SELFPAY | PROVIDERS: PCP Family Medicine; Referring Provider Family Medicine; Visit Provider Surgery | DX: T85.598A Other mechanical complication of other gastrointestinal prosthetic devices, implants and grafts, initial encounter (principal); Z93.1 Gastrostomy status; J44.9 Chronic obstructive pulmonary disease, unspecified; Z87.891 Personal history of nicotine dependence; I10 Essential (primary) hypertension | CPT/HCPCS: 99202; 99213 ==

== ENCOUNTER 2019-04-20 13:59 | Outpatient (CLI) | payer MEDICARE, SELFPAY ==
--- NOTE | 2019-04-20 13:05 | DI.RAD_ITS ---
EXAM: XR TOE LT GREAT CLINICAL HISTORY: left great toe fracture COMPARISON: XR TOE LT GREAT from 03/23/2019 FINDINGS: Two views were obtained. Previously described fracture of base of the distal phalanx of the great to e again noted with no gross interval change in alignment of the fracture fragments in comparison with previous examination.
--- NOTE | 2019-04-20 13:05 | DI.RAD_ITS ---
EXAM: XR KNEE LT 2V AP,LAT CLINICAL HISTORY: left patellar fracture TECHNIQUE: COMPARISON: XR KNEE LT 2V AP,LAT from 03/23/2019 FINDINGS: Two views were obtained and show previously described patellar fracture with no gross interval change in alignment the fracture fragments comparison with examination March 23 IMPRESSION:
== END 2019-04-20 14:19 ==
PROVIDERS: PCP Family Medicine; Visit Provider Physician Assistant
DX: S82.042D Displaced comminuted fracture of left patella, subsequent encounter for closed fracture with routine healing (principal); S92.415D Nondisplaced fracture of proximal phalanx of left great toe, subsequent encounter for fracture with routine healing; W19.XXXD Unspecified fall, subsequent encounter; I10 Essential (primary) hypertension; J44.9 Chronic obstructive pulmonary disease, unspecified; Z87.891 Personal history of nicotine dependence
CPT/HCPCS: 99214; 73560; 73660

== ENCOUNTER 2019-05-17 09:36 | Outpatient (CLI) | payer MEDICARE, SELFPAY ==
--- NOTE | 2019-05-17 09:07 | DI.RAD_ITS ---
EXAM: XR KNEE LT 2V AP,LAT INDICATION: f/u fracture. COMPARISON: XR KNEE LT 2V AP,LAT from 04/20/2019 TECHNIQUE: 2D digital imaging was performed. FINDINGS: There has been no significant change in alignment of the fracture compared to the examination from . No new fracture or dislocation is present. Vascular calcifications are seen in the soft t issues. IMPRESSION: Stable left patellar fracture.
== END 2019-05-17 09:56 ==
PROVIDERS: PCP Family Medicine; Referring Provider Family Medicine; Visit Provider Student in an Organized Health Care Education/Training Program
DX: S82.002D Unspecified fracture of left patella, subsequent encounter for closed fracture with routine healing (principal); X58.XXXD Exposure to other specified factors, subsequent encounter; I10 Essential (primary) hypertension; J44.9 Chronic obstructive pulmonary disease, unspecified
CPT/HCPCS: 99213; 73560

== ENCOUNTER 2019-07-04 11:26 | Emergency (ER) | payer MEDICARE, MEDICAID, SELFPAY ==
[2019-07-04 11:28] VITALS: BP 158/76; PULSE 90; RESP 20; TEMP 36.6; O2SAT 94
--- NOTE | 2019-07-04 11:40 | W.ED.GENAD ---
Discharge Plan Disposition Patient Disposition: HOME Condition: Stable Discharge Details Chief Complaint: RespSymp Clinical Impression: SOB (shortness of breath) Primary Care Provider: Jackie Prasad ED Provider: Cathy Gan Home Meds and New Rx's Prescriptions: New prednisone 5 mg/mL concentrate 40 mg PO DAILY 4 Days Qty: 32 RF: 0 Continued alfuzosin [Uroxatral] 10 mg tablet extended release 24 hr 10 mg PO DAILY Qty: 90 RF: 3 Adult 50 Plus Probiotic 4 billion cell capsule 4,000 mmu cells PO DAILY RF: 0 azithromycin 250 mg tablet 250 mg PO QMWF RF: 0 losartan 50 mg tablet 50 mg PO DAILY Qty: 30 RF: 2 trolamine salicylate [Myoflex] 10 % cream 1 applic TP QID PRN (Reason: muscle pain) Qty: 1 RF: 0 melatonin 3 MG tablet 3 mg PO HS Qty: 90 RF: 2 ipratropium-albuterol 3 ML solution for nebulization 0.5 mg IN TID PRNQty: 3 RF: 3 acetaminophen [Tylenol Extra Strength] 500 mg tablet 1,000 mg PO .1600, 2200 PRNRF: 0 rosuvastatin [Crestor] 40 mg tablet 40 mg PO DAILY Qty: 90 RF: 4 3 mLs Saline Vials 1 vial inhalation QID Qty: 120 RF: 4 omeprazole 20 mg capsule,delayed release(DR/EC) 20 mg PO DAILY Qty: 30 RF: 6 ferrous sulfate 220 mg (44 mg iron)/5 mL solution 330 mg Feeding Tube DAILY Qty: 473 RF: 5 citalopram 20 mg tablet 20 mg PO DAILY Qty: 90 RF: 4 gabapentin 300 mg capsule 300 mg PO HS Qty: 90 RF: 6 ropinirole 1 mg tablet 1 - 2 mg feeding tube HS Qty: 120 RF: 12 levothyroxine [Synthroid] 112 mcg tablet 112 mcg PO DAILY Qty: 90 RF: 1 Discontinued prednisone 10 mg tablet 10 mg PO DAILY RF: 0 Discharge Instructions Instructions: Dyspnea (ED) Additional Instructions: Please return immediately to the emergency department if you develop any new or worsening symptoms, if your condition does not improve as expected, or if you become otherwise concerned. It is extremely important that you call soon as possible to make an appointment to be seen in follow-up for this visit by your primary care doctor. As we discussed, tomorrow do not take your usual 10 mg of prednisone. Please take 40 mg of prednisone per day with the prescription that was provided to you today at discharge. On on 07/09/2018, please resume taking 10 mg of prednisone per day as you were previously prescribed. 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 On exam patient is chronically ill but acutely nontoxic appearing. Mild expiratory wheeze throughout, also diminished lung sounds throughout bilaterally. Concern for COPD exacerbation versus difficulty with thick tracheal secretions versus less likely influenza, pneumonia. Do not suspect ACS or pulmonary embolism at this time. Exam/history is not consistent with acute aortic process, sepsis. Plan for suctioning, DuoNeb, chest x-ray. Respiratory therapy at bedside with patient, patient was able to cough up significant amount of very thick, crusty secretions. Patient also received DuoNeb. After DuoNeb and secretions, no further wheeze on auscultation, patient continues to be diminished throughout. Patient reports that he feels significantly better and his breathing is at baseline at this time. Patient states that he is unsure whether his breathing improved after coughing up very thick secretions or after DuoNeb. Patient states that he feels well and ready to go home at this time, is amenable to chest x-ray. Awaiting chest x-ray and flu swab. Chest x-ray negative, flu swab negative. Patient states that he feels very well and at his baseline and would like to go home. Concern for likely reactive airway disease component to patient's symptoms, plan for increase in prednisone to 40 mg/day for 5 days, then return to patient's usual 10 mg/day prednisone. I had a lengthy discussion with the patient and his family regarding this plan, they are amenable. I had a lengthy discussion with Patient regarding return to emergency department precautions, home care, and importance of outpatient follow-up. Pt verbalizes understanding of the plan and is amenable. Patient discharged to home with clear plan for outpatient follow-up. All questions were answered. Disposition decision was made weighing the risks and benefits of hospitalization versus outpatient treatment, the risk for further decompensation, and the patient's wishes. Medical Records Medical records reviewed: Yes I reviewed the patient's medical records. Imaging Data Radiologic Study: Attestation: I personally reviewed and interpreted this imaging study as follows: Radiologist's impression: EXAM: XR CHEST 2V PA LATERAL CLINICAL HISTORY: SOB TECHNIQUE: COMPARISON: XR CHEST 2V PA LATERAL from 03/11/2019 FINDINGS: Examination is compared with previous examination of March 11, 2019. The heart is at the upper limits of normal in size. Changes of pulmonary scarring are noted. No gross interval change in appearance comparison with the previous study. No new consolidation seen. No pleural effusion seen. IMPRESSION: No evidence of acute process. Lab Data Lab results reviewed: Yes I reviewed the patient's lab results. Labs: 07/04/19 12:30 Nasopharynx Influenza Types A,B Antigen - Final HPI General Mode of arrival: ambulatory. Date/Time Provider Initiated Documentation: 07/04/19 11:28. Limitations to Documentation: no limitations. Information obtained by: patient, family, RN notes reviewed and old records reviewed. HPI Narrative: Chan Nevarez is a 74-year-old man with history of coronary artery disease, radical laryngectomy status post neoplasm now with trach, hypertension, hyperlipidemia, hypothyroidism, COPD presenting to the emergency department with shortness of breath. Patient reports that he has had months of chronic thick secretions from his trach that are difficult to cough up. He has seen pulmonology for this, and is currently on chronic azithromycin and prednisone at 10 mg for secretion issues. He has had a bronchoscopy for this as well. At this time it is apparently unclear why his secretions remain so thick. Patient reports that he does not currently have a humidifier in his bedroom. He reports that he does have a home suction machine, although he states that suction seems weak and it does not work very well. Patient reports that he does have a nebulizer for COPD, although he does not like to use it, and uses it very rarely. Patient reports that he is always short of breath at baseline. He reports that yesterday he was in his usual state of health. He reports that he woke up at 4 AM this morning feeling very short of breath, consistent with prior episodes of increased shortness of breath that he has had in the past secondary to secretions and/or COPD exacerbations. Patient reports that he used several of his saline vials to attempt to loosen secretions. He did not use his nebulizer treatment at home. He reports that he went to physical therapy, but was unable to participate secondary to feeling short of breath. He denies fevers, vomiting, diarrhea, cough change from baseline, numbness, focal weakness, rash. Related Data Home Medications Medication Instructions Recorded Confirmed melatonin 3 mg PO HS #90 tab-cap 08/13/17 05/30/19 ipratropium-albuterol 0.5 mg IN TID PRN #3 box 01/11/18 05/30/19 acetaminophen 500 mg tablet 1,000 mg PO .1600, 2200 PRN tab 04/05/18 05/30/19 lactobacillus combination no.9 4 4,000 mmu cells PO DAILY 09/15/18 05/30/19 billion cell capsule alfuzosin 10 mg tablet,extended 10 mg PO DAILY #90 tab-cap 09/17/18 05/30/19 release 24 hr rosuvastatin 40 mg tablet 40 mg PO DAILY #90 tab 11/18/18 05/30/19 3 mLs Saline Vials 1 vial INHALATION QID #120 vial 01/06/19 05/30/19 omeprazole 20 mg capsule,delayed 20 mg PO DAILY #30 cap 03/07/19 05/30/19 release ferrous sulfate 220 mg (44 mg 330 mg FEEDING TUBE DAILY #473 ml 03/08/19 05/30/19 iron)/5 mL oral solution trolamine salicylate 10 % topical 1 applic TP QID PRN #1 tube 03/28/19 05/30/19 cream citalopram 20 mg tablet 20 mg PO DAILY #90 tab 04/04/19 05/30/19 gabapentin 300 mg capsule 300 mg PO HS #90 cap 04/04/19 05/30/19 ropinirole 1 mg tablet 1 - 2 mg FEEDING TUBE HS #120 tab 04/19/19 05/30/19 levothyroxine 112 mcg tablet 112 mcg PO DAILY #90 tab 05/03/19 05/30/19 azithromycin 250 mg tablet 250 mg PO QMWF tab 05/30/19 05/30/19 losartan 50 mg tablet 50 mg PO DAILY #30 tab 05/30/19 05/30/19 prednisone 40 mg PO DAILY 4 Days #32 ml 07/04/19 Previous Rx's Medication Instructions Recorded melatonin 3 mg PO HS #90 tab-cap 08/13/17 alfuzosin 10 mg tablet,extended 10 mg PO DAILY #90 tab-cap 09/17/18 release 24 hr rosuvastatin 40 mg tablet 40 mg PO DAILY #90 tab 11/18/18 3 mLs Saline Vials 1 vial INHALATION QID #120 vial 01/06/19 omeprazole 20 mg capsule,delayed 20 mg PO DAILY #30 cap 03/07/19 release ferrous sulfate 220 mg (44 mg 330 mg FEEDING TUBE DAILY #473 ml 03/08/19 iron)/5 mL oral solution trolamine salicylate 10 % topical 1 applic TP QID PRN #1 tube 03/28/19 cream citalopram 20 mg tablet 20 mg PO DAILY #90 tab 04/04/19 gabapentin 300 mg capsule 300 mg PO HS #90 cap 04/04/19 ropinirole 1 mg tablet 1 - 2 mg FEEDING TUBE HS #120 tab 04/19/19 levothyroxine 112 mcg tablet 112 mcg PO DAILY #90 tab 05/03/19 losartan 50 mg tablet 50 mg PO DAILY #30 tab 05/30/19 prednisone 40 mg PO DAILY 4 Days #32 ml 07/04/19 Allergies Allergy/AdvReac Type Severity Reaction Status Date / Time pollen extracts Allergy Mild Verified 07/04/19 11:38 Tetracyclines Allergy Unknown SKIN RASH Verified 07/04/19 11:38 General Stated Complaint: RespSymp CHER: 3 Review of Systems Narrative: Constitutional: denies fevers Eyes: denies eye pain ENT: denies ear pain, dental pain, sore throat Cardiovascular: denies chest pain, edema Respiratory: Reports cough at baseline, unchanged, reports shortness of breath increased from baseline as per HPI GI: denies abdominal pain, vomiting, diarrhea : denies flank pain MSK: denies back pain, neck pain, arthralgias, myalgias Skin: denies rash Neuro: denies headaches, numbness, weakness [facility] Medical History Alcohol abuse (Inactive) Anxiety Blockage of feeding tube (Resolved) CAD (coronary artery disease) (Chronic) COPD (chronic obstructive pulmonary disease) Cortical cataract of right eye (Resolved) Depression Hyperlipemia Hypertension Hypothyroidism Laryngeal cancer 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) Nuclear sclerotic cataract of right eye (Resolved) Peripheral neuropathy (Chronic 02/21/15) Post herpetic neuralgia Posterior subcapsular age-related cataract, right eye (Resolved) Primary malignant neoplasm of oropharynx (Chronic) ; yearly fup in Feb (last ) [facility] [place] SX: 2007 ROR: 1999 + 2007 Pulmonary nodule, right (Chronic 05/30/15) on chest CT -2016: stable Restless leg syndrome (Chronic 02/21/15) Tobacco use (Inactive) Surgical History Colonoscopy - MAC (12/22/16) EGD - MAC (07/06/17) 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) Sin-mullins button placed by Dr Elia Mcdonald, [facility] History of tarsorrhaphy (Chronic) PROCEDURES RT/LEFT HEART CARD CATH COMPLETE LARYNGECTOMY Esophagoplasty Status post cataract extraction and insertion of intraocular lens of left eye (Chronic 04/30/12) Status post cataract extraction and insertion of intraocular lens of right eye (Chronic 07/12/18) Social History Smoking/Tobacco Use Status: Former Tobacco Use Tobacco: How many years used: 30 Alcohol Intake: never Drug use: Never Substance use type: does not use Current gender identity: male Do you feel safe at home: Yes Do you feel safe in your relationship?: Yes Exam Narrative Exam Narrative: Constitutional: Chronically ill but acutely [id number], pleasant, vocalizing with device but otherwise conversing normally HENT: head atraumatic/normocephalic/normal inspection, mucous membranes moist, stoma clean and dry, patent, no bleeding Eyes: conjunctiva normal, sclera normal, pupils 3mm b/l Neck: no stridor, normal ROM, trachea midline Chest: normal inspection Resp: normal work of breathing, lung sounds diminished bilaterally with slight expiratory wheeze throughout bilaterally, no rales, no rhonchi Cardio: normal rate, normal rhythm, no murmur appreciated Back: normal inspection, no rash Skin: warm, dry, normal color, no rash Neuro: alert, not altered, grossly non-focal, normal tone Ext: no edema, no posterior calf tenderness to palpation Psych: normal mood, normal affect, normal behavior Course Vital Signs Vital signs: Vital Signs Temperature 36.6 C 07/04/19 11:28 Pulse 90 07/04/19 11:28 Respiratory Rate 07/04/19 11:28 Blood Pressure 158/76 H 07/04/19 11:28 Pulse Oximetry 94 L 07/04/19 11:28 Temperature 36.6 C 07/04/19 11:28 Temperature Source Skin 07/04/19 11:28 Pulse 90 07/04/19 11:28 Respiratory Rate 07/04/19 11:28 Blood Pressure 158/76 H 07/04/19 11:28 Blood Pressure Position Sitting 07/04/19 11:28 Pulse Oximetry 94 L 07/04/19 11:28 Oxygen Delivery Method Room Air 07/04/19 11:28 Oxygen Flow Rate 0 07/04/19 11:28 Pain Level 0 07/04/19 11:28
[2019-07-04 12:03] VITALS: PULSE 90; RESP 20; O2SAT 94
[2019-07-04] MEDS: Albuterol/Ipratropium 3 ML UPD VIAL UPD (12:03)
--- NOTE | 2019-07-04 12:46 | DI.RAD_ITS ---
EXAM: XR CHEST 2V PA LATERAL CLINICAL HISTORY: SOB TECHNIQUE: COMPARISON: XR CHEST 2V PA LATERAL from 03/11/2019 FINDINGS: Examination is compared with previous examination of March 11, 2019. The heart is at the upper l imits of normal in size. Changes of pulmonary scarring are noted. No gross interval change in appea jojo comparison with the previous study. No new consolidation seen. No pleural effusion seen. IMPRESSION: No evidence of acute process.
[2019-07-04] MEDS: predniSONE 10 MG TAB 30 MG PO (13:31)
[2019-07-04 13:33] VITALS: BP 146/79; PULSE 90; RESP 18; TEMP 37.2; O2SAT 91
== END 2019-07-04 13:45 | disposition home or self-care (01) ==
PROVIDERS: Emergency Provider Student in an Organized Health Care Education/Training Program; PCP Family Medicine
DX: R06.02 Shortness of breath (principal); J44.9 Chronic obstructive pulmonary disease, unspecified; Z87.891 Personal history of nicotine dependence; Z93.0 Tracheostomy status; I10 Essential (primary) hypertension
CPT/HCPCS: 87449; 94640; 99283; 71046; 99284; J7512; J7620

== ENCOUNTER 2019-07-05 10:47 | Outpatient (CLI) | payer MEDICARE, MEDICAID, SELFPAY ==
[2019-07-05 11:27] LABS: CREATININE 0.63 mg/dL (0.70-1.30)
== END 2019-07-05 11:07 ==
PROVIDERS: PCP Family Medicine; Visit Provider Surgery Vascular Surgery
DX: I71.4 Abdominal aortic aneurysm, without rupture (principal)
CPT/HCPCS: 36415; 82565

== ENCOUNTER → 2019-07-06 10:38 | Outpatient (BNVA) | payer MEDICARE, SELFPAY | PROVIDERS: PCP Family Medicine; Referring Provider Family Medicine; Visit Provider Surgery | DX: R13.19 Other dysphagia (principal); R63.3 Feeding difficulties; T85.598A Other mechanical complication of other gastrointestinal prosthetic devices, implants and grafts, initial encounter | CPT/HCPCS: 43760; 43762; 99213 ==

== ENCOUNTER 2019-07-12 00:59 | Outpatient (CLI) | payer MEDICARE, SELFPAY ==
--- NOTE | 2019-07-12 09:37 | DI.CT_ITS ---
EXAM: CT THORAX ABD/PEL CTA CLINICAL HISTORY: ABDOMINAL AORTIC ANEURYSM WO RUPTURE, I71.4 TECHNIQUE: Images were performed from the clavicles through the ischial tuberosities during the benitez rial phase of IV contrast administration. COMPARISON: CHEST FOR PULMONARY EMBOLUS from 07/08/2017 XR CHEST 2V PA LATERAL from 07/04/2019 XR CHEST 2V PA LATERAL from 07/04/2019 FINDINGS: A tracheostomy tube is noted. There is calcification and mural thickening along the thoracic and abd ominal aorta. The ascending aorta is nondilated. In the lower chest, the diameter measures 3.2 cm. There is a focal area of narrowing and an area of tortuosity in the lower chest. In the upper abdom en, in the suprarenal location, the aortic diameter is 4.1 cm. There is fusiform dilatation of the i nfrarenal aorta with a maximal dimension of 5.6 cm transverse. There is mild to moderate mural throm bus in this location. There is calcification at the proximal iliac arteries just after the bifurcati on. There is mild narrowing of the right proximal common iliac artery and more severe narrowing on t he left. Both vessels show tortuosity. There is calcification at the bifurcation of the common femo ral vein with mild to moderate narrowing of approximately 50 percent on the right and more severe rosa maria rowing of approximately 75 percent on the left. There is calcification at the origin of the celiac a xis causing severe narrowing. There is no significant narrowing at the origin of the SMA. There is calcification of the origins of the renal arteries with no significant narrowing. There is a severe narrowing at the innominate artery on the right in an area of tortuosity. There is heavy calcificati on in the proximal common carotid arteries. No pulmonary emboli are seen. There are coronary artery calcifications. Evaluation of the lungs is somewhat limited due to respiratory motion. There are c hanges of centrilobular emphysema greater in the upper lobes. There is coarsening of the interstitiu m greater in the upper lobes. No focal infiltrate, pleural or pericardial effusions are seen. A few tiny gallstones are seen. The liver, spleen, pancreas, adrenals and kidneys are unremarkable. A PEG tube is noted. There is no abnormal small bowel or colonic distention. There are scattered d iverticula. Diverticula are noted in the bladder. The prostate is mildly enlarged. There is a subac [place]-appearing fracture of the upper sternum. There is an old-appearing severe compression of T12. T here is a mild compression fracture of T7. IMPRESSION: Atherosclerotic changes are noted throughout the aorta as well as in branch vessels. The maximum dim ension of the abdominal aortic aneurysm is 5.6 cm in the infrarenal portion.
[2019-07-12] MEDS: Omnipaque 350 MG/ML 100 ML BTL IJ (10:07)
[2019-07-12] MEDS: Normal Saline - Diluent 50 ML VIAL IV (10:08)
== END 2019-07-12 01:19 ==
PROVIDERS: PCP Family Medicine; Visit Provider Surgery Vascular Surgery
DX: I71.4 Abdominal aortic aneurysm, without rupture (principal); K80.20 Calculus of gallbladder without cholecystitis without obstruction; J98.4 Other disorders of lung; N40.0 Benign prostatic hyperplasia without lower urinary tract symptoms
CPT/HCPCS: 74177; J3490

== ENCOUNTER 2019-07-26 11:06 | Outpatient (CLI) | payer MEDICARE, SELFPAY ==
[2019-07-26 12:37] LABS: HCT 50.9 % (40.0-50.0); HGB 16.3 g/dL (13.5-17.5); Mean Corpuscular Hemoglobin 31.5 pg (27.0-33.0); Mean Corpuscular Volume 98.5 fL (80-95); Platelet Count 281 x1000/uL (130-400); RBC 5.17 m/cumm (4.50-6.00); RBC Distribution Width 14.6 % (11.8-14.1); White Blood Cell Count 10.32 k/cumm (4.4-10.8)
[2019-07-26 14:29] LABS: Iron 91 ug/dL (65-175); Total Iron Binding Capacity 484 ug/dL (250-450); Transferrin Sat 19 % (20-55)
[2019-07-26 14:48] LABS: ALT 34 U/L (16-63); AST 25 U/L (15-37); Albumin 4.1 g/dL (3.4-5.0); Alkaline Phosphatase 73 U/L (46-116); Anion Gap 10.4 mmol/L (3-11); BUN 22 mg/dL (7-18); Bilirubin, Total 0.7 mg/dL (0.2-1.0); CO2 31.6 mmol/L (21.0-32.0); CREATININE 0.79 mg/dL (0.70-1.30); Calcium 9.2 mg/dL (8.5-10.1); Chloride 97 mmol/L (98-107); Ferritin 130 ng/mL (26-388); Glucose 122 mg/dL (74-106); Sodium 139 mmol/L (136-145); Total Protein 7.7 g/dL (6.4-8.2); Vitamin B12 1023 pg/mL (193-986)
== END 2019-07-26 11:26 ==
PROVIDERS: PCP Family Medicine; Visit Provider Family Medicine
DX: I10 Essential (primary) hypertension (principal); J69.0 Pneumonitis due to inhalation of food and vomit; Z98.890 Other specified postprocedural states; Z90.02 Acquired absence of larynx
CPT/HCPCS: 36415; 80053; 85027; 82607; 82728; 83540; 83550

== ENCOUNTER 2019-08-12 11:40 | Inpatient (IN) | payer MEDICARE, MEDICAID, SELFPAY ==
[2019-08-12] VITALS (47 sets, daily range): BP systolic 90–162; BP diastolic 37–89; PULSE 84–174; RESP 2–38; TEMP 32–37.8; O2SAT 89–98
--- NOTE | 2019-08-12 11:45 | DI.RAD_ITS ---
EXAM: XR CHEST 2V PA LATERAL INDICATION: shortness of breath. COMPARISON: No exams were available for comparison TECHNIQUE: 2D digital imaging was performed. FINDINGS: Heart is enlarged. The aorta is tortuous. There are underlying changes of pulmonary fibrosis. The lungs are suboptimally inflated. No focal area of consolidation is seen. There is increased vascula r prominence and increased prominence of the interstitial markings which could indicate superimposed CHF. IMPRESSION: Question of CHF superimposed on pulmonary fibrosis. DATA REPOSITORY: RADIATION DOSE DELIVERED:
--- NOTE | 2019-08-12 11:45 | DI.CT_ITS ---
EXAM: CT HEAD WO CLINICAL HISTORY: ?seizure TECHNIQUE: Noncontrast COMPARISON: No exams were available for comparison FINDINGS: Exam is limited by patient motion. There is mild atrophy consistent with the patient's age. There is mild patchiness of the white matter consistent with small vessel disease. No gross acute infarct, hemorrhage or mass is seen. The ventricles appear normal in size. IMPRESSION: Limited exam due to motion. No acute abnormality is seen.
[2019-08-12] MEDS: Albuterol/Ipratropium 3 ML UPD VIAL ×2 (11:50→13:07)
[2019-08-12] MEDS: Albuterol/Ipratropium 3 ML UPD VIAL UPD ×2 (11:55→20:07)
[2019-08-12] MEDS: Normal Saline 1,000 ML 1000 ML IV (12:00)
[2019-08-12 12:07] LABS: BE (Venous) 5.1 mmol/L (-3-3); HCO3 (Venous) 31 mmol/L (22-28); O2 Sat (Venous) 49 % (70-80); TCO2 (Venous) 28 mmol/L (22-29); pCO2 (Venous) 59 mm/Hg (34-47); pH (Venous) 7.33 (7.35-7.45); pO2 (Venous) 29 mm/Hg (28-44)
--- NOTE | 2019-08-12 12:07 | ED.GENADUL_ITS ---
Discharge Plan Disposition Patient Disposition: [facility] INPATIENT Condition: Stable Discharge Details Chief Complaint: RespSymp Clinical Impression: COPD (chronic obstructive pulmonary disease) Primary Care Provider: Jackie Prasad ED Provider: Kalyan Barreto Home Meds and New Rx's Prescriptions: No Action alfuzosin [Uroxatral] 10 mg tablet extended release 24 hr 10 mg PO DAILY Qty: 90 RF: 3 Adult 50 Plus Probiotic 4 billion cell capsule 4,000 mmu cells PO DAILY RF: 0 azithromycin 250 mg tablet 250 mg PO QMWF RF: 0 trolamine salicylate [Myoflex] 10 % cream 1 applic TP QID PRN (Reason: muscle pain) Qty: 1 RF: 0 melatonin 3 MG tablet 3 mg PO HS Qty: 90 RF: 2 acetaminophen [Tylenol Extra Strength] 500 mg tablet 1,000 mg PO .1600, 2200 PRNRF: 0 rosuvastatin [Crestor] 40 mg tablet 40 mg PO DAILY Qty: 90 RF: 4 3 mLs Saline Vials 1 vial inhalation QID Qty: 120 RF: 4 omeprazole 20 mg capsule,delayed release(DR/EC) 20 mg PO DAILY Qty: 30 RF: 6 ferrous sulfate 220 mg (44 mg iron)/5 mL solution 330 mg Feeding Tube DAILY Qty: 473 RF: 5 citalopram 20 mg tablet 20 mg PO DAILY Qty: 90 RF: 4 gabapentin 300 mg capsule 300 mg PO HS Qty: 90 RF: 6 ropinirole 1 mg tablet 1 - 2 mg feeding tube HS Qty: 120 RF: 12 levothyroxine [Synthroid] 112 mcg tablet 112 mcg PO DAILY Qty: 90 RF: 1 losartan 50 mg tablet 50 mg PO DAILY Qty: 90 RF: 4 ipratropium-albuterol 0.5 mg-3 mg(2.5 mg base)/3 mL solution for nebulization 3 ml IN TID PRN (Reason: shortness of breath or wheezing) Qty: 90 RF: 4 Medical Decision Making 74-year-old man with past medical history significant for laryngeal CA status post laryngectomy, with subsequent development of a tracheoesophageal fistula following attempted use of a voice box, with multiple recurrent bouts of aspirat ion pneumonia, copd, who comes in with ems after he had a shaking episode per ems from the 's report with no post ictal perior and no tongue biting and no urinary incontinence. He arrives in no distress and states other than feeling weak and mild shortness of breath for months he feels well. He denies fevers, chills, vomit, chest pain/pressure. He does have bilateral wheezing at the bases otherwise clear lungs. Unclear if this was a seizure or not, will obtain labs including electrolytes, check flu and also obtian cxr and head ct and monitor. pt remains stable though still has diffuse wheezing and on o2 is at 88%. His xray showed?chf but on bedside u/s doesn't have significant b lines so feel more chronic pulmonary scarring. He doesn't feel comfortable going home and given his continued hypoxia and wheezing will admit for copd. Given increased cough will cover with abx, ceftriaxone ordered. He did have lower respiatory culture done at [facility] [place] in June which grew mrsa sensitive to lienzolid, tetracycline, bactrim and vanco and has been on bactrim BID. Will discuss with hospitalist starting iv mrsa coverage Differential Diagnosis Differential Diagnosis: seizure, syncope, pna, copd Medical Records Medical records reviewed: Yes I reviewed the patient's medical records. Imaging Data Radiologic Study: Attestation: I personally reviewed and interpreted this imaging study as follows: Imaging: X-Ray Radiologist's impression: ?chf Radiologic Study #2: Attestation: I personally reviewed and interpreted this imaging study as follows: Imaging: CT Scan Radiologist's impression: no acute findings Lab Data Lab results reviewed: Yes I reviewed the patient's lab results. ECG Data Attestation: I personally reviewed and interpreted this ECG (s) as follows: Prior ECG tracings: not available for review Interpretation: sinus rhythm, rbbb, rate of 91, pr 194, HPI General Mode of arrival: ambulatory . Date/Time Provider Initiated Documentation: 08/12/19 11:41 . Limitations to Documentation: no limitations . Information obtained by: patient . History of Present Illness 74 year old M presents to the emergency department with the chief complaint of weakness, described as moderate, Patient started experiencing this month(s) (2) and it has been constant. No relieving factors improve symptom(s), No exacerbating factors reported . Patient notes cough. Patient did receive the following treatments prior to arrival, none Related Data Home Medications Medication Instructions Recorded Confirmed melatonin 3 mg PO HS #90 tab-cap 08/13/17 08/12/19 acetaminophen 500 mg tablet 1,000 mg PO .1600, 2200 PRN tab 04/05/18 08/12/19 lactobacillus combination no.9 4 4,000 mmu cells PO DAILY 09/15/18 08/12/19 billion cell capsule alfuzosin 10 mg tablet,extended 10 mg PO DAILY #90 tab-cap 09/17/18 08/12/19 release 24 hr rosuvastatin 40 mg tablet 40 mg PO DAILY #90 tab 11/18/18 08/12/19 3 mLs Saline Vials 1 vial INHALATION QID #120 vial 01/06/19 08/12/19 omeprazole 20 mg capsule,delayed 20 mg PO DAILY #30 cap 03/07/19 08/12/19 release ferrous sulfate 220 mg (44 mg 330 mg FEEDING TUBE DAILY #473 ml 03/08/19 08/12/19 iron)/5 mL oral solution trolamine salicylate 10 % topical 1 applic TP QID PRN #1 tube 03/28/19 08/12/19 cream citalopram 20 mg tablet 20 mg PO DAILY #90 tab 04/04/19 08/12/19 gabapentin 300 mg capsule 300 mg PO HS #90 cap 04/04/19 08/12/19 ropinirole 1 mg tablet 1 - 2 mg FEEDING TUBE HS #120 tab 04/19/19 08/12/19 levothyroxine 112 mcg tablet 112 mcg PO DAILY #90 tab 05/03/19 08/12/19 azithromycin 250 mg tablet 250 mg PO QMWF tab 05/30/19 08/12/19 losartan 50 mg tablet 50 mg PO DAILY #90 tab 07/18/19 08/12/19 ipratropium 0.5 mg-albuterol 3 mg 3 ml IN TID PRN #90 ml 08/12/19 08/12/19 (2.5 mg base)/3 mL nebulization soln Previous Rx's Medication Instructions Recorded melatonin 3 mg PO HS #90 tab-cap 08/13/17 alfuzosin 10 mg tablet,extended 10 mg PO DAILY #90 tab-cap 09/17/18 release 24 hr rosuvastatin 40 mg tablet 40 mg PO DAILY #90 tab 11/18/18 3 mLs Saline Vials 1 vial INHALATION QID #120 vial 01/06/19 omeprazole 20 mg capsule,delayed 20 mg PO DAILY #30 cap 03/07/19 release ferrous sulfate 220 mg (44 mg 330 mg FEEDING TUBE DAILY #473 ml 03/08/19 iron)/5 mL oral solution trolamine salicylate 10 % topical 1 applic TP QID PRN #1 tube 03/28/19 cream citalopram 20 mg tablet 20 mg PO DAILY #90 tab 04/04/19 gabapentin 300 mg capsule 300 mg PO HS #90 cap 04/04/19 ropinirole 1 mg tablet 1 - 2 mg FEEDING TUBE HS #120 tab 04/19/19 levothyroxine 112 mcg tablet 112 mcg PO DAILY #90 tab 05/03/19 losartan 50 mg tablet 50 mg PO DAILY #90 tab 07/18/19 ipratropium 0.5 mg-albuterol 3 mg 3 ml IN TID PRN #90 ml 08/12/19 (2.5 mg base)/3 mL nebulization soln Allergies Allergy/AdvReac Type Severity Reaction Status Date / Time pollen extracts Allergy Mild Verified 08/12/19 14:44 Tetracyclines Allergy Unknown SKIN RASH Verified 08/12/19 14:44 General Stated Complaint: RespSymp CHER: 3 Review of Systems All systems reviewed & are unremarkable except as noted in HPI and below Constitutional Constitutional: Denies chills and Denies fever(s) Cardiovascular Cardiovascular: Denies chest pain Gastrointestinal Gastrointestinal: Denies abdominal pain, Denies nausea and Denies vomiting PFS Surgical History Colonoscopy - MAC (12/22/16) EGD - MAC (07/06/17) 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) Sin-mullins button placed by Dr Elia Mcdonald [facility] History of tarsorrhaphy (Chronic) PROCEDURES RT/LEFT HEART CARD CATH COMPLETE LARYNGECTOMY Esophagoplasty Status post cataract extraction and insertion of intraocular lens of left eye (Chronic 04/30/12) Status post cataract extraction and insertion of intraocular lens of right eye (Chronic 07/12/18) Social History Smoking/Tobacco Use Status: Former Tobacco Use Tobacco: How many years used: 30 Alcohol Intake: never Drug use: Never Substance use type: does not use Current gender identity: male Do you feel safe at home: Yes Do you feel safe in your relationship?: Yes Exam Const General: no acute distress Orientation: alert HENMT Head: normal to inspection Ears: external ears normal General nose exam: external nose normal Mouth: moist mucous membranes Eyes General: appearance normal, both eyes and all related structures Resp Effort & Inspection: normal respiratory effort Cardio Rate: regular rate Skin General skin exam: no rashes or lesions noted Neuro General: alert and oriented x3 Extrem General: normal to inspection Psych Mental Status: mental status grossly normal Course Vital Signs Vital signs: Vital Signs Temperature 37.0 C 08/12/19 11:36 Pulse 93 H 08/12/19 11:36 Respiratory Rate 26 H 08/12/19 11:36 Blood Pressure 123/62 08/12/19 11:36 Pulse Oximetry 94 L 08/12/19 11:36 Temperature 37.0 C 08/12/19 11:36 Temperature Source Oral 08/12/19 11:36 Pulse 96 H 08/12/19 11:55 Respiratory Rate 18 08/12/19 11:55 Respiratory Effort Labored 08/12/19 11:43 Blood Pressure 123/62 08/12/19 11:36 Blood Pressure Position Supine 08/12/19 11:36 Pulse Oximetry 95 08/12/19 11:55 Oxygen Delivery Method Trach Collar 08/12/19 11:55 Oxygen Flow Rate 3 08/12/19 11:55 Lab/Test Results Lab/Test Results: 08/12/19 11:54 Nasopharynx Influenza Types A,B Antigen - Pending
[2019-08-12 12:08] LABS: Abs Immature Grans 0.04 k/cumm (0.0-0.09); Absolute Basophil Count 0.08 k/cumm (0.0-0.2); Absolute Eosinophil Count 0.18 k/cumm (0.0-0.7); Absolute Monocyte Count 0.97 k/cumm (0.11-0.7); Basophils % 0.5; Eosinophils % 1.2; HGB 14.6 g/dL (13.5-17.5); Immature Grans % 0.3 %; Lymphocytes % 4.8; Mean Corp. HGB Concentration 33.2 g/dL (32.0-36.0); Mean Corpuscular Hemoglobin 32.6 pg (27.0-33.0); Mean Corpuscular Volume 98.2 fL (80-95); Mean Platelet Volume 9.7 fL (8.0-11.0); Monocytes % 6.3; Neutrophils % 86.9; Platelet Count 283 x1000/uL (130-400); RBC 4.48 m/cumm (4.50-6.00); RBC Distribution Width 13.9 % (11.8-14.1); White Blood Cell Count 15.32 k/cumm (4.4-10.8)
[2019-08-12 12:12] LABS: Absolute Lymphocyte Count 0.74 k/cumm (1.2-3.4); Absolute Neutrophil Count 13.31 k/cumm (1.2-6.7)
[2019-08-12 12:18] LABS: Lactate 2.1 mmol/L (0.6-1.4)
[2019-08-12 12:27] LABS: INR 1.1 (0.9-1.1); PTT Activated 24.3 sec (21.0-31.4); Prothrombin Time 10.7 sec (9.3-11.0)
[2019-08-12 12:34] LABS: ALT 24 U/L (16-63); AST 22 U/L (15-37); Albumin 3.5 g/dL (3.4-5.0); Alkaline Phosphatase 68 U/L (46-116); Anion Gap 6.7 mmol/L (3-11); BUN 24 mg/dL (7-18); Bilirubin, Total 0.4 mg/dL (0.2-1.0); CO2 30.3 mmol/L (21.0-32.0); Calcium 8.3 mg/dL (8.5-10.1); Chloride 96 mmol/L (98-107); Glucose 135 mg/dL (74-106); Magnesium 2.1 mg/dL (1.8-2.4); Potassium 4.5 mmol/L (3.5-5.1); Sodium 133 mmol/L (136-145); TSH (W/Ref FT4) 1.39 uIU/mL (0.36-3.74); Total Protein 7.1 g/dL (6.4-8.2); Troponin I < 0.05 ng/Ml (<0.06)
[2019-08-12] MEDS: methylPREDNISolone SUCC 125 MG VIAL IVP (13:01)
[2019-08-12] MEDS: cefTRIAXone 2 GM/50 ML BAG IVPB (13:21)
[2019-08-12] MEDS: VANCOMYCIN 1,000 MG in Normal Saline 250 ML 166.6666 MG IVPB (14:32)
--- NOTE | 2019-08-12 15:39 | W.PM.HP.N ---
Date of service: 08/12/19 Time of Service: 15:39 Assessment and Plan Assessment and plan (1) Community acquired pneumonia: Status: Acute Assessment and plan: IV antibiotics including Levaquin, cefepime, vancomycin. Check results of blood and sputum cultures. Supportive care with high flow tracheostomy oxygen mask along with aerosolized bronchodilators and IV corticosteroids. Qualifiers: Laterality: right Lung location: upper lobe of lung Qualified Code(s): J18.9 - Pneumonia, unspecified organism (2) COPD with acute exacerbation: Status: Acute Assessment and plan: As above (3) Hypertension: Status: Chronic Assessment and plan: Continue his home medications. Qualifiers: Hypertension type: essential hypertension Qualified Code(s): I10 - Essential (primary) hypertension (4) DVT prophylaxis: Status: Acute Assessment and plan: Subcutaneous enoxaparin History of Present Illness History of Present Illness Chief Complaint: dyspnea, cough Narrative: 74-year-old male former smoker with a history of COPD and laryngeal cancer status post laryngectomy complicated by T-E fistula which has since been repaired. He is followed by his specialist down at [facility]. Patient had a recent bronchoscopy and laryngoscopy in which mucopurulent discharge grew out MRSA. He had been prescribed a 10-day course of Bactrim DS p.o. twice daily. He has been having progressive dyspnea for the last couple months to the point where he cannot even dress himself without getting out of breath he has had no fever or rigors but increased cough productive of purulent mucus. He has a tracheostomy and wears oxygen via trach mask. He did feel chilled last night and was diaphoretic. His said she took his temperature and he was not febrile. She brought him to the emergency department because of the incessant coughing and dyspnea. Evaluation in the emergency department revealed a white count of 15,300 whereas it had been 10,000 couple weeks ago. His chemistries revealed an elevated blood lactate of 2.1 with a normal creatinine 1.1 and a BUN of 24. Rest of his electrolytes were within normal limits. His troponin was less than 0.05. His chest x-ray showed new infiltrates right upper lobe which was read by radiology as questionable CHF superimposed on pulmonary fibrosis. Blood cultures and sputum cultures were obtained. Nasal swab for influenza was negative. Patient was started on Rocephin and vancomycin in the emergency department. I have switched his coverage to cefepime and Levaquin and vancomycin. Presumably this is a staph aureus pneumonia however I will provide dual coverage with cefepime and Levaquin to cover for gram negatives such as Pseudomonas pending the results of his repeat sputum culture patient was also given a dose of Solu-Medrol in the emergency department and aerosolized bronchodilators. Review of Systems Constitutional Constitutional: Reports chills, Reports excessive sweating and Denies fever(s) ENT Ears, Nose, Mouth, and Throat: Reports system reviewed and no additional complaints, except as docu Cardiovascular Cardiovascular: Denies chest pain, Denies leg edema, Reports dyspnea on exertion (just walking across the room or dressing or undressing gets him dyspneic), Reports orthopnea and Reports paroxysmal nocturnal dyspnea Respiratory Respiratory: Reports change in phlegm color, Reports chest congestion, Reports cough, Denies hemoptysis, Reports excessive phlegm production, Reports dyspnea on exertion (just walking across the room or dressing or undressing gets him dyspneic) and Reports wheezing Gastrointestinal Gastrointestinal: Reports loose stools Genitourinary Genitourinary: Reports system reviewed and no additional complaints, except as docu Musculoskeletal Musculoskeletal: Reports system reviewed and no additional complaints, except as docu Integumentary/Breasts Skin/Breast: Reports system reviewed and no additional complaints, except as docu Neurologic Neurologic: Reports restless legs Endocrine Endocrine: Reports excessive sweating Hematologic/Lymphatic Hematologic/Lymphatic: Reports system reviewed and no additional complaints, except as docu Allergic/Immunologic Allergic/Immunologic: Reports wheezing [facility] Medical History Abdominal aortic aneurysm (Acute ~03/2019) Dr. Anders Smalls[place] [facility] [place] 5.5 cm pararenal and suprarenal aneurysm; not candidate for open repair but being considered for fenestrated endovascular repair Alcohol abuse (Inactive) Anxiety Blockage of feeding tube (Resolved) CAD (coronary artery disease) (Chronic) COPD (chronic obstructive pulmonary disease) Cortical cataract of right eye (Resolved) Depression History of alcoholism (Inactive) sober x 25yrs History of tobacco use (Inactive) Hyperlipemia Hypertension Hypothyroidism Impingement syndrome, shoulder, left (Inactive 10/10/16) -2016: PT yomaira. 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) Nuclear sclerotic cataract of right eye (Resolved) Peripheral neuropathy (Chronic 02/21/15) Post herpetic neuralgia Posterior subcapsular age-related cataract, right eye (Resolved) Primary malignant neoplasm of oropharynx (Chronic) ; yearly fup in Feb (last ) [facility]: [place] ROR: 2000 + 2007 Pulmonary nodule, right (Chronic 05/30/15) on chest CT -2015: stable Restless leg syndrome (Chronic 02/21/15) Sessile colonic polyp (Inactive) 12/22/16-SESSILE SERRATED ADENOMA Tobacco use (Inactive) Surgical History Colonoscopy - MAC (12/22/16) EGD - MAC (07/06/17) 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 History of esophagogastroduodenoscopy (EGD) (Chronic ~08/10/19) Daron Casper APRN [place] [facility] [place]: hiatal hernia, GERD, Reyes's esophagitis, neuromuscular dysfunction History of laryngectomy (Inactive) History of radical laryngectomy (Inactive) History of tarsorrhaphy (Resolved) PROCEDURES RT/LEFT HEART CARD CATH COMPLETE LARYNGECTOMY Esophagoplasty Status post cardiac catheterization (Inactive) Status post cataract extraction and insertion of intraocular lens of left eye (Resolved 04/30/12) Status post cataract extraction and insertion of intraocular lens of right eye (Resolved 07/12/18) Social History Smoking/Tobacco Use Status: Former Tobacco Use Tobacco: How many years used: 30 Alcohol Intake: never Drug use: Never Substance use type: does not use Current gender identity: male Do you feel safe at home: Yes Do you feel safe in your relationship?: Yes Meds Home Medications and Allergies Home Medications Medication Instructions Recorded Confirmed Type melatonin 3 mg PO HS #90 tab-cap 08/13/17 08/12/19 Rx acetaminophen 500 mg tablet 1,000 mg PO .1600, 2200 PRN tab 04/05/18 08/12/19 History lactobacillus combination no.9 4 4,000 mmu cells PO DAILY 09/15/18 08/12/19 History billion cell capsule alfuzosin 10 mg tablet,extended 10 mg PO DAILY #90 tab-cap 09/17/18 08/12/19 Rx release 24 hr 3 mLs Saline Vials 1 vial INHALATION QID #120 vial 01/06/19 08/12/19 Rx ferrous sulfate 220 mg (44 mg 330 mg FEEDING TUBE DAILY #473 ml 03/08/19 08/12/19 Rx iron)/5 mL oral solution citalopram 20 mg tablet 20 mg PO DAILY #90 tab 04/04/19 08/12/19 Rx gabapentin 300 mg FEEDING TUBE DIRECTED 08/12/19 08/12/19 History ipratropium 0.5 mg-albuterol 3 mg 3 ml IN TID PRN #90 ml 08/12/19 08/12/19 Rx (2.5 mg base)/3 mL nebulization soln levothyroxine 112 mcg FEEDING TUBE QPM 08/12/19 08/12/19 History losartan 50 mg FEEDING TUBE .Q5PM 08/12/19 08/12/19 History omeprazole 20 mg FEEDING TUBE DIRECTED 08/12/19 08/12/19 History ropinirole 1 mg FEEDING TUBE DIRECTED 08/12/19 08/12/19 History rosuvastatin 40 mg FEEDING TUBE HS 08/12/19 08/12/19 History sulfamethoxazole-trimethoprim 1 tab FEEDING TUBE BID 08/12/19 08/12/19 History Allergies Allergy/AdvReac Type Severity Reaction Status Date / Time pollen extracts Allergy Mild Verified 08/12/19 14:44 Tetracyclines Allergy Unknown SKIN RASH Verified 08/12/19 14:44 Exam Narrative Exam Narrative: Elderly kyphotic male who is alert and oriented breathing through his tracheostomy with a high flow tracheostomy mask. HEENT is otherwise unremarkable. TMs are intact no erythema or bulging nares is moist no purulent discharge oropharynx is noninjected no exudate. Neck is nontender normal carotid pulses no JVD. He has well-healed patent tracheostomy Lungs reveal scattered expiratory wheezes and rhonchi bilaterally particularly in the right upper field. Heart is regular rhythm but tachycardic without murmur rub or gallop. Abdomen soft and nontender with a well-established PEG tube Extremities without peripheral cyanosis or edema Neuro exam is nonfocal grossly intact. Results Labs Result diagrams: 08/12/19 12:00 08/12/19 12:00 Labs: Laboratory Results - last 24 hr 08/12/19 08/12/19 08/12/19 12:00 12:00 12:00 WBC 15.32 H RBC 4.48 L Hgb 14.6 Hct 44.0 MCV 98.2 H MCH 32.6 MCHC 33.2 RDW 13.9 Plt Count 283 MPV 9.7 Immature Gran % 0.3 Neutrophils % 86.9 Lymphocytes % 4.8 Monocytes % 6.3 Eosinophils % 1.2 Basophils % 0.5 Absolute Neutrophils 13.31 H Absolute Lymphocytes 0.74 L Absolute Monocytes 0.97 H Absolute Eosinophils 0.18 Absolute Basophils 0.08 PT INR APTT VBG pH VBG pCO2 VBG pO2 VBG HCO3 VBG Total CO2 VBG O2 Saturation VBG Base Excess Sodium 133 L Potassium 4.5 Chloride 96 L Carbon Dioxide 30.3 Anion Gap 6.7 BUN 24 H Creatinine 1.10 Estimated GFR/1.73 m2 >= 60.00 Glucose 135 H Lactate 2.1 H* Calcium 8.3 L Magnesium 2.1 Total Bilirubin 0.4 AST 22 ALT 24 Alkaline Phosphatase 68 Troponin I < 0.05 Total Protein 7.1 Albumin 3.5 TSH 1.39 08/12/19 08/12/19 12:00 12:00 WBC RBC Hgb Hct MCV MCH MCHC RDW Plt Count MPV Immature Gran % Neutrophils % Lymphocytes % Monocytes % Eosinophils % Basophils % Absolute Neutrophils Absolute Lymphocytes Absolute Monocytes Absolute Eosinophils Absolute Basophils PT 10.7 INR 1.1 APTT 24.3 VBG pH 7.33 L VBG pCO2 59 H VBG pO2 29 VBG HCO3 31 H VBG Total CO2 28 VBG O2 Saturation 49 L VBG Base Excess 5.1 H Sodium Potassium Chloride Carbon Dioxide Anion Gap BUN Creatinine Estimated GFR/1.73 m2 Glucose Lactate Calcium Magnesium Total Bilirubin AST ALT Alkaline Phosphatase Troponin I Total Protein Albumin TSH Last Vital Signs Temp 37.0 C 08/12/19 11:36 Pulse 174 H 08/12/19 13:47 Resp 21 08/12/19 14:20 BP 95/82 L 08/12/19 13:47 Pulse Ox 90 L 08/12/19 14:50
[2019-08-12 16:13] LABS: Procalcitonin 0.1 ng/mL
--- NOTE | 2019-08-12 18:25 | DM INPTCON_ITS ---
DESCRIPTION/ASSESSMENT: Appreciate nutrition consult for Mr. Nevarez who is hospitalized currently nourished primarily by Nutren2.0 3 cans and soft foods that easily dissolve in water such as applesauce and yogurt. Nutritional needs assessed at 2094 calories daily; protein 82kg daily. H&P does not indicate other nutritional considerations at this time. He received approximately 1500 calories with 3 cans of Nutren2.0; 60 grams protein. His family stated a change from 4 cans to 3 cans in his overnight feeding. It appears he does not receive fiber in his tube feeding based on family description. We have only Osmolite 1.2 in house. INTERVENTION: Suggest Osmolite 1.2 at 5 cans offering 1450 calories and 66 grams protein as a short term solution to Mr. Nevarez's unique nutritional needs. His is willing to bring in Nutren2.0 tomorrow if needed. PLAN: Will make available 5 cans Osmolite 1.2 if desired. Will inform Wheel [employer]ing Machine Tender.
[2019-08-12] MEDS: Levothyroxine 112 MCG TAB JT (20:04)
[2019-08-12] MEDS: Losartan 50 MG TAB NG (20:04)
[2019-08-12] MEDS: Rosuvastatin 10 MG TAB 40 MG PO (20:04)
[2019-08-12] MEDS: rOPINIRole 1 MG TAB 2 MG JT (20:04)
[2019-08-12] MEDS: Gabapentin 300 MG CAP NG (20:05)
[2019-08-12] MEDS: Acetaminophen 500 MG TAB 1000 MG PO (20:05)
[2019-08-12] MEDS: Melatonin 3 MG TAB PO (20:06)
[2019-08-12] MEDS: methylPREDNISolone SUCC 125 MG VIAL 60 MG IVP (20:07)
[2019-08-12] MEDS: Normal Saline Flush 10 ML SYR IVP (20:07)
[2019-08-12] MEDS: Enoxaparin 40 MG/0.4 ML SYR SC (20:07)
[2019-08-12] MEDS: levoFLOXacin 750 MG/150 ML BAG 100 MG IVPB (20:07)
[2019-08-12] MEDS: Normal Saline 1,000 ML 85 ML IV (20:14)
[2019-08-12] MEDS: Water,Injection,Sterile 10 ML VIAL (20:50)
[2019-08-12] MEDS: CEFEPIME 2 GM in Normal Saline 100 ML IVPB (21:10)
[2019-08-13] VITALS (18 sets, daily range): BP systolic 131–206; BP diastolic 74–130; PULSE 57–106; RESP 2–28; TEMP 31–37.4; O2SAT 90–94
[2019-08-13] MEDS: Albuterol/Ipratropium 3 ML UPD VIAL UPD ×4 (00:56→17:24)
[2019-08-13] MEDS: CEFEPIME 2 GM in Normal Saline 100 ML IVPB ×3 (03:46→21:26)
[2019-08-13] MEDS: methylPREDNISolone SUCC 125 MG VIAL 60 MG IVP (04:47)
[2019-08-13] MEDS: Normal Saline Flush 10 ML SYR IVP ×4 (04:47→23:42)
[2019-08-13 06:59] LABS: Abs Immature Grans 0.01 k/cumm (0.0-0.09); Absolute Basophil Count 0.01 k/cumm (0.0-0.2); Absolute Lymphocyte Count 0.41 k/cumm (1.2-3.4); Absolute Monocyte Count 0.19 k/cumm (0.11-0.7); Absolute Neutrophil Count 8.07 k/cumm (1.2-6.7); Basophils % 0.1; HCT 48.6 % (40.0-50.0); HGB 15.8 g/dL (13.5-17.5); Immature Grans % 0.1 %; Lymphocytes % 4.7; Mean Corp. HGB Concentration 32.5 g/dL (32.0-36.0); Mean Corpuscular Hemoglobin 31.7 pg (27.0-33.0); Mean Corpuscular Volume 97.4 fL (80-95); Mean Platelet Volume 9.9 fL (8.0-11.0); Monocytes % 2.2; Neutrophils % 92.9; Platelet Count 313 x1000/uL (130-400); RBC 4.99 m/cumm (4.50-6.00); RBC Distribution Width 14.1 % (11.8-14.1); White Blood Cell Count 8.69 k/cumm (4.4-10.8)
[2019-08-13 07:12] LABS: BUN 16 mg/dL (7-18); CREATININE 0.78 mg/dL (0.70-1.30); Calcium 8.9 mg/dL (8.5-10.1); Chloride 98 mmol/L (98-107); Glucose 134 mg/dL (74-106); Magnesium 2.1 mg/dL (1.8-2.4); Potassium 4.2 mmol/L (3.5-5.1); Sodium 136 mmol/L (136-145)
--- NOTE | 2019-08-13 08:54 | NUR.NOTE ---
Called Kiraa this AM to ask if she would bring in PEG tube extension line. Kiara states she will bring that in as well as patients home PEG tube formula later this morning. Nursing Note:
[2019-08-13] MEDS: Omeprazole 20 MG CAPCR NG (10:44)
[2019-08-13] MEDS: Citalopram 20 MG TAB PO (10:44)
[2019-08-13] MEDS: rOPINIRole 1 MG TAB JT (10:44)
[2019-08-13] MEDS: Ferrous Sulfate 44 MG/ML Liquid 330 MG JT (10:44)
[2019-08-13] MEDS: Lactobacillus Acidophilus CAP 1 CAP PO (10:44)
[2019-08-13 11:05] LABS: Lactate 1.1 mmol/L (0.6-1.4)
[2019-08-13] MEDS: Pantoprazole 40 MG VIAL IVP (12:12)
[2019-08-13] MEDS: Metoprolol 5 MG/5 ML VIAL 2.5 MG IVP ×3 (12:12→23:41)
--- NOTE | 2019-08-13 12:14 | PHA.ADMREV ---
Pharmacy Clinical Review - Admission Clinical Review (Last Reviewed 08/12/19 @ 18:00 by Pablo Brooks) DVT prophylaxis (Acute) COPD with acute exacerbation (Acute) Community acquired pneumonia (Acute) pollen extracts Allergy (Mild, Verified 08/12/19 14:44) Tetracyclines Allergy (Unknown, Verified 08/12/19 14:44) SKIN RASH Height 5 ft 8.9 in Weight 82.6 kg - Renal Dosing Renal Dosing: BUN 16 mg/dL (7-18) D 08/13/19 06:00 Creatinine 0.78 mg/dL (0.70-1.30) 08/13/19 06:00 Medications needing adjustments: Reviewed (est CrCl~79 mL/min (SCr- 1.10 on arrival ) VBancomycin dose may need adjust, awaiting trough) - Anticoagulation Anticoagulation: Hgb 15.8 g/dL (13.5-17.5) 08/13/19 06:00 Hct 48.6 % (40.0-50.0) 08/13/19 06:00 Plt Count 313 x1000/uL (130-400) 08/13/19 06:00 INR 1.1 (0.9-1.1) 08/12/19 12:00 Creatinine 0.78 mg/dL (0.70-1.30) 08/13/19 06:00 Medications: Enoxaparin Therapeutic Anticoagulation: N/A - Opiate Usage Evaluate Pain Scale/Pains Meds: N/A Scheduled Bowel Reg ordered if on Opiates?: Yes - Relevant Labs Sodium 136 mmol/L (136-145) 08/13/19 06:00 Potassium 4.2 mmol/L (3.5-5.1) 08/13/19 06:00 Chloride 98 mmol/L (98-107) 08/13/19 06:00 Magnesium 2.1 mg/dL (1.8-2.4) 08/13/19 06:00 Electrolytes, C-Reactive P, ESR: Reviewed (Lytes-WNL) - Antimicrobial Stewardship Antibiotic appropriateness: Reviewed (On triple ABX therapy Cefepime, Levaquin, Vancomycin)) Surgical Abx d/c within 24 hr: N/A De-escalation: No Culture review/Resistance: Reviewed (Blood, Urine -pending Flu-negative) IV to PO Switch: No C. Diff: No - DM Control DM Control: Glucose 134 mg/dL (74-106) H 08/13/19 06:00 Insulin Dosing: N/A - Heart Failure/SD Heart Failure/SD: Troponin I < 0.05 ng/Ml (<0.06) 08/12/19 12:00 EF%, MARK's, B-Blockers, Diuretics: Reviewed (HR-100S, Lopressor IV MYA q6h...with parameters) - BP Control BP Control: Blood Pressure 180/118 Blood Pressure 174/130 If elevated: Reviewed (Lopresor 2.5mg iV q6hr w/parameters, Losartan (home med)) - QTc Review If Elevated: Reviewed (QTc-497 (Celexa, Levaquin,Protonix) Alfuzosin-PatOwn not here)) - IV to PO Switch IV Medications: Reviewed (stil requires IV) - Home Meds Home Med List reviewed: Reviewed (Bactrim, Ranitidine, Awaiting PatOwn Alfuzosin & Myoflex crm) - Current meds Current Medication Order Review: Reviewed (Most meds are administered via J tube)
--- NOTE | 2019-08-13 12:54 | W.PM.PROGNOT ---
Date of Service Date of service: 08/13/19 Time of Service: 12:55 Assessment and Plan Assessment and plan (1) Community acquired pneumonia: Start date: 08/13/19 Start time: 12:59 Status: Acute Assessment and plan: History of MRSA, IV antibiotics including Levaquin, cefepime, vancomycin. Influenza negative. Repeat lactate normalized 1.1. Blood and sputum cultures pending. Supportive care with high flow tracheostomy oxygen mask along with aerosolized bronchodilators. Steroids decreased to 40 IVP BID. continue to monitor. Qualifiers: Laterality: right Lung location: upper lobe of lung Qualified Code(s): J18.9 - Pneumonia, unspecified organism (2) COPD with acute exacerbation: Start date: 08/13/19 Start time: 13:01 Status: Acute Assessment and plan: As above (3) Hypertension: Start date: 08/13/19 Start time: 13:12 Status: Chronic Assessment and plan: Losartan 50 mg BID also add BB to regimen as patient is 180-200 systolically and over 110 diastolically. 2.5 mg q 6 hours monitor on teley. Qualifiers: Hypertension type: essential hypertension Qualified Code(s): I10 - Essential (primary) hypertension (4) DVT prophylaxis: Start date: 08/13/19 Start time: 13:13 Status: Acute Assessment and plan: Subcutaneous enoxaparin (5) Restless leg syndrome: Start date: 08/13/19 Start time: 13:13 Status: Chronic Assessment and plan: Takes ropinirole continue medication. (6) Status post laryngectomy: Start date: 08/13/19 Start time: 13:14 Status: Acute Assessment and plan: History of laryngeal cancer with radiation treatment in 1999. Repair of tracheoesophegeal fistula 09/2018. Can tolerate full liquids and thin liquids. Use j tube for medications and feedings. Above case discussed with Dr. George who is in agreement. Subjective Subjective Interval history since last seen: Feels terrible today, states secretions are less and having less sputum production Exam Narrative Exam Narrative: Elderly kyphotic male who is alert and oriented breathing through his tracheostomy with a high flow tracheostomy mask. HEENT is otherwise unremarkable. TMs are intact no erythema or bulging nares is moist no purulent discharge oropharynx is noninjected no exudate. Neck is nontender normal carotid pulses no JVD. He has well-healed patent tracheostomy Lung with rhonchi bilaterally particularly in the right upper field. No wheezing or rales. Heart is regular rhythm, regular rate, without murmur rub or gallop. Abdomen soft and nontender with a well-established PEG tube Extremities without peripheral cyanosis or edema Neuro exam is nonfocal grossly intact. Objective Objective Clinical Data: Abnormal lab results 08/13/19 08/13/19 Range/Units 06:00 06:00 MCV 97.4 H (80-95) fL Absolute Neutrophils 8.07 H (1.2-6.7) k/cumm Absolute Lymphocytes 0.41 L (1.2-3.4) k/cumm Glucose 134 H (74-106) mg/dL Vital Signs Temperature 36.6 C 08/13/19 07:10 Temperature Source Temporal Artery Scan 08/13/19 07:10 Pulse 93 H 08/13/19 12:33 Pulse Rhythm Regular 08/13/19 09:09 Pulse 101 H 08/12/19 15:50 Respiratory Rate 20 08/13/19 12:33 Respiratory Effort Labored 08/13/19 09:09 Respiratory Depth Deep 08/13/19 09:09 Respiratory Pattern Tachypnea 08/13/19 09:09 Blood Pressure 206/112 H 08/13/19 12:12 Blood Pressure Mean 85 08/12/19 13:47 Blood Pressure Position Supine 08/12/19 11:36 Pulse Oximetry 94 L 08/13/19 12:33 Oxygen Delivery Method Hi Flow System 08/13/19 12:33 Oxygen Flow Rate 0 08/13/19 07:10 Fraction of Inspired Oxygen (FIO2) 42 08/12/19 16:28 Comment 08/13/19 09:06 Intake & Output 08/12/19 08/13/19 08/13/19 23:59 11:59 23:59 Intake Total 1400 / 1400 710 / 710 Output Total 600 / 600 Balance 1400 / 1400 110 / 110 Weight 82.6 kg 82.6 kg Intake: IV 1400 / 1400 100 / 100 Oral 610 / 610 Output: Urine 600 / 600 Other: Urine Color Pale Yellow Urine Appearance Cloudy Clear Urine Odor None Emesis Description Undigested Food Voiding Methods Toilet Laboratory Results WBC 8.69 k/cumm (4.4-10.8) D 08/13/19 06:00 RBC 4.99 m/cumm (4.50-6.00) 08/13/19 06:00 Hgb 15.8 g/dL (13.5-17.5) 08/13/19 06:00 Hct 48.6 % (40.0-50.0) 08/13/19 06:00 MCV 97.4 fL (80-95) H 08/13/19 06:00 MCH 31.7 pg (27.0-33.0) 08/13/19 06:00 MCHC 32.5 g/dL (32.0-36.0) 08/13/19 06:00 RDW 14.1 % (11.8-14.1) 08/13/19 06:00 Plt Count 313 x1000/uL (130-400) 08/13/19 06:00 MPV 9.9 fL (8.0-11.0) 08/13/19 06:00 Immature Gran % 0.1 % 08/13/19 06:00 Neutrophils % 92.9 08/13/19 06:00 Lymphocytes % 4.7 08/13/19 06:00 Monocytes % 2.2 08/13/19 06:00 Eosinophils % 0.0 08/13/19 06:00 Basophils % 0.1 08/13/19 06:00 Absolute Neutrophils 8.07 k/cumm (1.2-6.7) H 08/13/19 06:00 Absolute Lymphocytes 0.41 k/cumm (1.2-3.4) L 08/13/19 06:00 Absolute Monocytes 0.19 k/cumm (0.11-0.7) 08/13/19 06:00 Absolute Eosinophils 0.00 k/cumm (0.0-0.7) 08/13/19 06:00 Absolute Basophils 0.01 k/cumm (0.0-0.2) 08/13/19 06:00 PT 10.7 sec (9.3-11.0) 08/12/19 12:00 INR 1.1 (0.9-1.1) 08/12/19 12:00 APTT 24.3 sec (21.0-31.4) 08/12/19 12:00 VBG pH 7.33 (7.35-7.45) L 08/12/19 12:00 VBG pCO2 59 mm/Hg (34-47) H 08/12/19 12:00 VBG pO2 29 mm/Hg (28-44) 08/12/19 12:00 VBG HCO3 31 mmol/L (22-28) H 08/12/19 12:00 VBG Total CO2 28 mmol/L (22-29) 08/12/19 12:00 VBG O2 Saturation 49 % (70-80) L 08/12/19 12:00 VBG Base Excess 5.1 mmol/L (-3-3) H 08/12/19 12:00 Sodium 136 mmol/L (136-145) 08/13/19 06:00 Potassium 4.2 mmol/L (3.5-5.1) 08/13/19 06:00 Chloride 98 mmol/L (98-107) 08/13/19 06:00 Carbon Dioxide 27.0 mmol/L (21.0-32.0) 08/13/19 06:00 Anion Gap 11.0 mmol/L (3-11) 08/13/19 06:00 BUN 16 mg/dL (7-18) D 08/13/19 06:00 Creatinine 0.78 mg/dL (0.70-1.30) 08/13/19 06:00 Estimated GFR/1.73 m2 >= 60.00 (mL/min/1.73m2) 08/13/19 06:00 Glucose 134 mg/dL (74-106) H 08/13/19 06:00 Lactate 1.1 mmol/L (0.6-1.4) 08/13/19 11:00 Calcium 8.9 mg/dL (8.5-10.1) 08/13/19 06:00 Magnesium 2.1 mg/dL (1.8-2.4) 08/13/19 06:00 Total Bilirubin 0.4 mg/dL (0.2-1.0) 08/12/19 12:00 AST 22 U/L (15-37) 08/12/19 12:00 ALT 24 U/L (16-63) 08/12/19 12:00 Alkaline Phosphatase 68 U/L (46-116) 08/12/19 12:00 Troponin I < 0.05 ng/Ml (<0.06) 08/12/19 12:00 Total Protein 7.1 g/dL (6.4-8.2) 08/12/19 12:00 Albumin 3.5 g/dL (3.4-5.0) 08/12/19 12:00 Procalcitonin 0.1 ng/mL 08/12/19 12:00 TSH 1.39 uIU/mL (0.36-3.74) 08/12/19 12:00
[2019-08-13] MEDS: Losartan 50 MG TAB PO ×2 (13:08→21:26)
--- NOTE | 2019-08-13 14:02 | PDOC.CMIN ---
- If Service Date Differs Date of service: 08/13/19 Time of Service: 14:02 Care Management Initial Assess REASON FOR HOSPITALIZATION:: Pnuemonia PAST MEDICAL HISTORY/PAST SURGICAL HISTORY:: Medical History . Abdominal aortic aneurysm (Acute ~03/2019). Dr. Anders Smalls, vascular surgery @ [facility]; 5.5 cm pararenal and suprarenal aneurysm; not candidate for open repair but being considered for fenestrated endovascular repair. Alcohol abuse (Inactive). Anxiety. Blockage of feeding tube (Resolved). CAD (coronary artery disease) (Chronic). COPD (chronic obstructive pulmonary disease). Cortical cataract of right eye (Resolved). Depression. History of alcoholism (Inactive). sober x 25yrs. History of tobacco use (Inactive). Hyperlipemia. Hypertension. Hypothyroidism. Impingement syndrome, shoulder, left (Inactive 10/10/16). : PT sugg. imaging: discuss at fup. Laryngeal cancer. 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 Nuclear sclerotic cataract of right eye (Resolved). Peripheral neuropathy (Chronic 02/21/15). Post herpetic neuralgia. Posterior subcapsular age-related cataract, right eye (Resolved). Primary malignant neoplasm of oropharynx (Chronic). ; yearly fup in Feb (last ). [facility] SX: 2007. ROR: 1999 + 2007. Pulmonary nodule, right (Chronic 05/30/15). on chest CT : stable. Restless leg syndrome (Chronic 02/21/15). Sessile colonic polyp (Inactive). 12/22/16-SESSILE SERRATED ADENOMA. Tobacco use (Inactive). Surgical History . Colonoscopy - MAC (12/22/16). EGD - MAC (07/06/17). 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 Sin-mullins button placed by Dr Elia Mcdonald, [facility]. History of esophagogastroduodenoscopy (EGD) (Chronic ~08/10/19). Daron Casper APRN @ [facility]: hiatal hernia, GERD, Reyes's esophagitis, neuromuscular dysfunction. History of laryngectomy (Inactive). History of radical laryngectomy (Inactive). History of tarsorrhaphy (Resolved). PROCEDURES. RT/LEFT HEART CARD CATH. COMPLETE LARYNGECTOMY. Esophagoplasty. Status post cardiac catheterization (Inactive). Status post cataract extraction and insertion of intraocular lens of left eye (Resolved 04/30/12). Status post cataract extraction and insertion of intraocular lens of right eye (Resolved 07/12/18) PREVIOUS FUNCTIONAL STATUS/SOCIAL/FAMILY SUPPORTS:: Chan lives at home with his friend Kiara in [facility]. Kiara provides his care at home. 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 He is independent with ADL's, but does have support from Kiara, when needed. CURRENT FUNCTIONAL STATUS:: Pineda was sitting up in bed when CM met with him. He reported that he wasn't feeling great, but he is on abx and was told to stay in bed while he heals. He stated that he has surgery upcoming on August 25 at [facility], which he is nervous about. CM asked if Pineda has current services, which he does not. He is interested in additional support in the home, if indicated. CM will discuss this with the provider. CM will continue to follow. ADVANCE DIRECTIVES:: Colst form on file agent is his nephew Marino Nevarez. Has patient been provided with information about the portal?: Yes Did the patient sign up for the portal?: Yes (previously signed up) CODE STATUS:: Full Code INSURANCE COVERAGE / FINANCIAL ISSUES:: [facility]/ [place]/ [facility] CURRENT HOME/COMMUNITY SERVICES/EQUIPMENT:: Pineda currently is cared for by his s/o, Kiara in the home. Kiara is employed as his caregiver through [employer]. PRIMARY CARE PHYSICIAN:: Jackie Prasad POTENTIAL DISCHARGE NEEDS:: Evaluations for further needs, follow up appointments PATIENT/FAMILY EDUCATION NEEDS:: Review discharge instructions regarding activity levels, medications and nutrition, discussion of self care needs including ask me three and goals of care. ANTICIPATED BARRIERS TO DISCHARGE:: None identified at this time. TRANSPORTATION:: Anticipate Pineda will transport via private vehicle driven by friends/family PLAN:: Anticipate Pineda will return home when medically cleared. Evaluations will determine if additional support in the home is needed. He will follow up with his PCP and discharge plan of care. He will be driven home via private vehicle by family when ready. CM will continue to follow and support discharge planning considerations.
[2019-08-13] MEDS: Acetaminophen 500 MG TAB 1000 MG PO ×2 (17:02→21:26)
[2019-08-13] MEDS: Levothyroxine 112 MCG TAB JT (17:02)
[2019-08-13] MEDS: Enoxaparin 40 MG/0.4 ML SYR SC (17:24)
[2019-08-13] MEDS: methylPREDNISolone SUCC 40 MG VIAL IVP (17:25)
[2019-08-13] MEDS: levoFLOXacin 750 MG/150 ML BAG 100 MG IVPB (18:30)
[2019-08-13] MEDS: Rosuvastatin 10 MG TAB 40 MG PO (21:24)
[2019-08-13] MEDS: rOPINIRole 1 MG TAB 2 MG JT (21:25)
[2019-08-13] MEDS: Melatonin 3 MG TAB PO (21:26)
[2019-08-13] MEDS: Gabapentin 300 MG CAP NG (21:26)
[2019-08-14] VITALS (20 sets, daily range): BP systolic 139–198; BP diastolic 70–106; PULSE 75–98; RESP 2–26; TEMP 31–37; O2SAT 94–99
[2019-08-14] MEDS: CEFEPIME 2 GM in Normal Saline 100 ML IVPB ×3 (04:38→20:17)
[2019-08-14] MEDS: methylPREDNISolone SUCC 40 MG VIAL IVP (05:53)
[2019-08-14] MEDS: Metoprolol 5 MG/5 ML VIAL 2.5 MG IVP ×2 (05:53→12:15)
[2019-08-14] MEDS: Normal Saline Flush 10 ML SYR IVP ×3 (05:54→14:34)
[2019-08-14] MEDS: Albuterol/Ipratropium 3 ML UPD VIAL UPD ×4 (05:54→23:55)
[2019-08-14 06:49] LABS: Abs Immature Grans 0.04 k/cumm (0.0-0.09); Absolute Basophil Count 0.01 k/cumm (0.0-0.2); Absolute Eosinophil Count 0.01 k/cumm (0.0-0.7); Absolute Lymphocyte Count 0.91 k/cumm (1.2-3.4); Absolute Neutrophil Count 10.84 k/cumm (1.2-6.7); Basophils % 0.1; Eosinophils % 0.1; HCT 44.9 % (40.0-50.0); HGB 14.9 g/dL (13.5-17.5); Immature Grans % 0.3 %; Mean Corp. HGB Concentration 33.2 g/dL (32.0-36.0); Mean Corpuscular Hemoglobin 32.3 pg (27.0-33.0); Mean Corpuscular Volume 97.2 fL (80-95); Mean Platelet Volume 9.8 fL (8.0-11.0); Monocytes % 9.6; Neutrophils % 82.9; Platelet Count 330 x1000/uL (130-400); RBC 4.62 m/cumm (4.50-6.00); RBC Distribution Width 14.1 % (11.8-14.1); White Blood Cell Count 13.07 k/cumm (4.4-10.8)
[2019-08-14 06:50] LABS: Absolute Monocyte Count 1.25 k/cumm (0.11-0.7)
[2019-08-14 06:56] LABS: Anion Gap 9.9 mmol/L (3-11); BUN 19 mg/dL (7-18); CO2 27.1 mmol/L (21.0-32.0); CREATININE 0.84 mg/dL (0.70-1.30); Calcium 8.5 mg/dL (8.5-10.1); Chloride 100 mmol/L (98-107); Glucose 126 mg/dL (74-106); Potassium 4.2 mmol/L (3.5-5.1); Sodium 137 mmol/L (136-145)
[2019-08-14] MEDS: Ferrous Sulfate 44 MG/ML Liquid 330 MG JT (08:56)
[2019-08-14] MEDS: rOPINIRole 1 MG TAB JT (08:57)
[2019-08-14] MEDS: Citalopram 20 MG TAB PO (08:58)
[2019-08-14] MEDS: Losartan 50 MG TAB PO ×2 (08:58→20:15)
[2019-08-14] MEDS: Lactobacillus Acidophilus CAP 1 CAP PO (08:58)
[2019-08-14] MEDS: Pantoprazole 40 MG VIAL IVP (12:15)
[2019-08-14 13:20] LABS: Vancomycin, Trough 16.2 ug/mL (10.0-20.0)
[2019-08-14] MEDS: Mylanta Suspension 30 ML CUP PO (14:33)
--- NOTE | 2019-08-14 16:17 | PGE_ITS ---
Date of Service Date of service: 08/14/19 Time of Service: 16:17 Assessment and Plan Assessment and plan (1) MRSA pneumonia: Status: Acute Assessment and plan: patient has known MRSA in the sputum and the assumption is that this is MRSA pneumonia. He is significantly clinically better today. We can transition his steroids to per tube. D/c levofloxacin today. D/c cefepime tomorrow. Recheck CXR tomorrow. (2) COPD with acute exacerbation: Status: Acute Assessment and plan: As above (3) Hypertension: Status: Chronic Assessment and plan: Some of the hypertension is likely fueled by steroids. Continue losartan, transition beta germania to PO. Target SBP<140 Qualifiers: Hypertension type: essential hypertension Qualified Code(s): I10 - Essential (primary) hypertension (4) Restless leg syndrome: Status: Chronic Assessment and plan: Continue ropinirole. (5) Status post laryngectomy: Status: Acute Assessment and plan: For h/o laryngeal cancer with radiation treatment in 1999 and repair of TE fistula 09/2018. Theoretically, the patient should not be able to aspirate. His dietary restriction is due to esophageal dismotility rather than oropharyngeal-phase dysphagia. Continue thin/full liquids. Use j tube for medications and feedings. (6) Episode of shaking: Status: Acute Assessment and plan: Prior to admission. This really matches more with convulsive syncope in setting of hypoxia, though I do not see any true hypoxia recorded in the ED. Will attempt to find EMS records. He has not had any events of the type here. For now, I do not anticipate further workup. (7) Abdominal aortic aneurysm: Status: Acute Assessment and plan: Patient should be able to have his EVAR at [facility] within 2 weeks. We will send his images to [facility]. Intensify BP control with target SBP<140. (8) DVT prophylaxis: Status: Acute Assessment and plan: Subcutaneous enoxaparin (9) Discharge planning issues: Status: Acute Assessment and plan: Full code. Anticipate discharge in 24-48 hours. Subjective Subjective Interval history since last seen: Feels better. Less sputum production today, coughing less, feels less rattle. Denies dizziness, chest pain, nausea. Describes to me feeling disoriented when he first woke up at 3 am, but was able to quickly reorient himself to where he was. Female visitor is asking me why he had the shaking spell at home. We talked about hypoxia/hypercapnia possibly causing seizure/shaking, but it being very difficult to tell now. On tele, there was a short burst of ST of HR>140, self- limited, while asleep. CT head was negative. He had no post-ictal period of disorientation at the time to suggest a tonic clonic seizure. Exam Narrative Exam Narrative: General: Very pleasant elderly male, sitting comfortably in a chair, with humidified heated high flow O2 by trach collar, A&Ox3, communicating using a voice box HEENT: EOMI, though L eye is chronically somewhat closed, MMM Heart: RRR, no m/r/g Lungs: rhonchi which appear to be of upper airway origin and resonating into the lungs; the lungs themselves have only very subtle expiratory wheezing Abdomen: soft, nontender, nondistended Extremities: no e/c/c BLE's Objective Objective Clinical Data: Abnormal lab results 08/14/19 08/14/19 Range/Units 06:15 06:15 WBC 13.07 H D (4.4-10.8) k/cumm MCV 97.2 H (80-95) fL Absolute Neutrophils 10.84 H (1.2-6.7) k/cumm Absolute Lymphocytes 0.91 L (1.2-3.4) k/cumm Absolute Monocytes 1.25 H (0.11-0.7) k/cumm BUN 19 H (7-18) mg/dL Glucose 126 H (74-106) mg/dL Vital Signs Temperature 36.7 C 08/14/19 08:30 Temperature Source Tympanic 08/14/19 08:30 Pulse 75 08/14/19 13:10 Pulse Rhythm Regular 08/14/19 08:10 Pulse 101 H 08/12/19 15:50 Respiratory Rate 24 08/14/19 13:10 Respiratory Effort Labored 08/14/19 08:10 Respiratory Depth Normal 08/14/19 08:10 Respiratory Pattern Tachypnea 08/14/19 08:10 Blood Pressure 169/92 H 08/14/19 12:45 Blood Pressure Mean 85 08/12/19 13:47 Blood Pressure Position Supine 08/12/19 11:36 Pulse Oximetry 99 08/14/19 13:10 Oxygen Delivery Method Hi Flow System 08/14/19 13:05 Oxygen Flow Rate 55 08/14/19 12:00 Fraction of Inspired Oxygen (FIO2) 27 08/14/19 13:05 Pain Level 0 08/14/19 12:15 Comment 08/13/19 09:06 Intake & Output 08/13/19 08/14/19 08/14/19 23:59 11:59 23:59 Intake Total 810 / 1770 350 / 590 240 / 590 Output Total 2180 / 2180 Balance 810 / 1170 -1830 / -1590 240 / -1590 Weight 82.6 kg Intake: IV 450 / 800 350 / 350 Oral 360 / 970 240 / 240 Output: Urine 2150 / 2150 Output, Residual 30 / 30 Other: Urine Color Yellow Urine Appearance Clear Clear Urine Odor None Comment Total four voids Voiding Methods Bedside Commode Laboratory Results WBC 13.07 k/cumm (4.4-10.8) H D 08/14/19 06:15 RBC 4.62 m/cumm (4.50-6.00) 08/14/19 06:15 Hgb 14.9 g/dL (13.5-17.5) 08/14/19 06:15 Hct 44.9 % (40.0-50.0) 08/14/19 06:15 MCV 97.2 fL (80-95) H 08/14/19 06:15 MCH 32.3 pg (27.0-33.0) 08/14/19 06:15 MCHC 33.2 g/dL (32.0-36.0) 08/14/19 06:15 RDW 14.1 % (11.8-14.1) 08/14/19 06:15 Plt Count 330 x1000/uL (130-400) 08/14/19 06:15 MPV 9.8 fL (8.0-11.0) 08/14/19 06:15 Immature Gran % 0.3 % 08/14/19 06:15 Neutrophils % 82.9 08/14/19 06:15 Lymphocytes % 7.0 08/14/19 06:15 Monocytes % 9.6 08/14/19 06:15 Eosinophils % 0.1 08/14/19 06:15 Basophils % 0.1 08/14/19 06:15 Absolute Neutrophils 10.84 k/cumm (1.2-6.7) H 08/14/19 06:15 Absolute Lymphocytes 0.91 k/cumm (1.2-3.4) L 08/14/19 06:15 Absolute Monocytes 1.25 k/cumm (0.11-0.7) H 08/14/19 06:15 Absolute Eosinophils 0.01 k/cumm (0.0-0.7) 08/14/19 06:15 Absolute Basophils 0.01 k/cumm (0.0-0.2) 08/14/19 06:15 PT 10.7 sec (9.3-11.0) 08/12/19 12:00 INR 1.1 (0.9-1.1) 08/12/19 12:00 APTT 24.3 sec (21.0-31.4) 08/12/19 12:00 VBG pH 7.33 (7.35-7.45) L 08/12/19 12:00 VBG pCO2 59 mm/Hg (34-47) H 08/12/19 12:00 VBG pO2 29 mm/Hg (28-44) 08/12/19 12:00 VBG HCO3 31 mmol/L (22-28) H 08/12/19 12:00 VBG Total CO2 28 mmol/L (22-29) 08/12/19 12:00 VBG O2 Saturation 49 % (70-80) L 08/12/19 12:00 VBG Base Excess 5.1 mmol/L (-3-3) H 08/12/19 12:00 Sodium 137 mmol/L (136-145) 08/14/19 06:15 Potassium 4.2 mmol/L (3.5-5.1) 08/14/19 06:15 Chloride 100 mmol/L (98-107) 08/14/19 06:15 Carbon Dioxide 27.1 mmol/L (21.0-32.0) 08/14/19 06:15 Anion Gap 9.9 mmol/L (3-11) 08/14/19 06:15 BUN 19 mg/dL (7-18) H 08/14/19 06:15 Creatinine 0.84 mg/dL (0.70-1.30) 08/14/19 06:15 Estimated GFR/1.73 m2 >= 60.00 (mL/min/1.73m2) 08/14/19 06:15 Glucose 126 mg/dL (74-106) H 08/14/19 06:15 Lactate 1.1 mmol/L (0.6-1.4) 08/13/19 11:00 Calcium 8.5 mg/dL (8.5-10.1) 08/14/19 06:15 Magnesium 2.0 mg/dL (1.8-2.4) 08/14/19 06:15 Total Bilirubin 0.4 mg/dL (0.2-1.0) 08/12/19 12:00 AST 22 U/L (15-37) 08/12/19 12:00 ALT 24 U/L (16-63) 08/12/19 12:00 Alkaline Phosphatase 68 U/L (46-116) 08/12/19 12:00 Troponin I < 0.05 ng/Ml (<0.06) 08/12/19 12:00 Total Protein 7.1 g/dL (6.4-8.2) 08/12/19 12:00 Albumin 3.5 g/dL (3.4-5.0) 08/12/19 12:00 Procalcitonin 0.1 ng/mL 08/12/19 12:00 TSH 1.39 uIU/mL (0.36-3.74) 08/12/19 12:00 Vancomycin Trough 16.2 ug/mL (10.0-20.0) 08/14/19 12:55
[2019-08-14] MEDS: Levothyroxine 112 MCG TAB JT (16:37)
[2019-08-14] MEDS: Acetaminophen 500 MG TAB 1000 MG PO ×2 (16:37→21:56)
[2019-08-14] MEDS: Gabapentin 300 MG CAP 600 MG NG (17:20)
[2019-08-14] MEDS: Enoxaparin 40 MG/0.4 ML SYR SC (18:39)
[2019-08-14] MEDS: Metoprolol 12.5 MG TAB PO ×2 (18:39→23:55)
--- NOTE | 2019-08-14 19:14 | PDOC.CMPRO ---
- If Service Date Differs Date of service: 08/14/19 Time of Service: 19:14 Care Management Progress Note S/O: Pineda was lying in bed when CM met with him. He sat up to talk with CM, although CM offered that he rest. He stated that he hasn't been able to get much sleep while at [facility]. He stated that he was hoping to shave today. CM asked his [employer] to provide him with a disposable razor for use while at [facility]. CM acknowledged that it is sometimes hard to rest as a patient, but that rest will aid in his healing, to which he agreed. CM will continue to follow. A: Pineda is a 74 year old male admitted to [facility] on 08/12/19 with pneumonia. P: Anticipate Pineda will return home when medically cleared. Evaluations will determine if additional support in the home is needed. He will follow up with his PCP and discharge plan of care. He will be driven home via private vehicle by family when ready. CM will continue to follow and support discharge planning considerations.
[2019-08-14] MEDS: rOPINIRole 1 MG TAB 2 MG JT (20:14)
[2019-08-14] MEDS: Rosuvastatin 10 MG TAB 40 MG PO (20:14)
[2019-08-14] MEDS: predniSONE 20 MG TAB 40 MG NG (20:16)
[2019-08-14] MEDS: Gabapentin 300 MG CAP NG (21:57)
[2019-08-14] MEDS: Melatonin 3 MG TAB PO (21:57)
[2019-08-15] VITALS (11 sets, daily range): BP systolic 160–230; BP diastolic 89–126; PULSE 71–92; RESP 2–24; TEMP 31–37; O2SAT 86–99
[2019-08-15] MEDS: CEFEPIME 2 GM in Normal Saline 100 ML IVPB ×2 (04:30→13:19)
[2019-08-15] MEDS: Albuterol/Ipratropium 3 ML UPD VIAL UPD ×3 (05:53→18:58)
[2019-08-15] MEDS: Metoprolol 12.5 MG TAB PO (05:53)
[2019-08-15 06:50] LABS: Abs Immature Grans 0.03 k/cumm (0.0-0.09); Absolute Lymphocyte Count 1.02 k/cumm (1.2-3.4); Absolute Monocyte Count 0.95 k/cumm (0.11-0.7); Absolute Neutrophil Count 9.65 k/cumm (1.2-6.7); Eosinophils % 0.3; HCT 48.7 % (40.0-50.0); Immature Grans % 0.3 %; Lymphocytes % 8.7; Mean Corp. HGB Concentration 32.9 g/dL (32.0-36.0); Mean Corpuscular Hemoglobin 32.1 pg (27.0-33.0); Mean Corpuscular Volume 97.6 fL (80-95); Mean Platelet Volume 9.9 fL (8.0-11.0); Monocytes % 8.1; Neutrophils % 82.6; Platelet Count 319 x1000/uL (130-400); RBC 4.99 m/cumm (4.50-6.00); RBC Distribution Width 14.1 % (11.8-14.1); White Blood Cell Count 11.68 k/cumm (4.4-10.8)
[2019-08-15 06:55] LABS: Absolute Eosinophil Count 0.04 k/cumm (0.0-0.7)
[2019-08-15 06:59] LABS: Anion Gap 8.5 mmol/L (3-11); BUN 23 mg/dL (7-18); CO2 28.5 mmol/L (21.0-32.0); CREATININE 0.81 mg/dL (0.70-1.30); Calcium 8.9 mg/dL (8.5-10.1); Chloride 99 mmol/L (98-107); Glucose 136 mg/dL (74-106); Magnesium 2.4 mg/dL (1.8-2.4); Potassium 4.4 mmol/L (3.5-5.1); Sodium 136 mmol/L (136-145)
--- NOTE | 2019-08-15 07:47 | DI.RAD_ITS ---
EXAM: XR PORTABLE CHEST AP INDICATION: Follow up PNA. COMPARISON: XR CHEST 2V PA LATERAL from 07/04/2019 XR CHEST 2V PA LATERAL from 08/12/2019 TECHNIQUE: 2D digital imaging was performed. FINDINGS: The heart is again noted to be enlarged and the aorta is tortuous. There has been some interval chanda aring of the previously noted CHF. Underlying fibrotic changes are again noted. IMPRESSION: Improvement in CHF. DATA REPOSITORY: RADIATION DOSE DELIVERED:
[2019-08-15] MEDS: Citalopram 20 MG TAB PO (07:57)
[2019-08-15] MEDS: rOPINIRole 1 MG TAB JT (07:58)
[2019-08-15] MEDS: Normal Saline Flush 10 ML SYR IVP ×2 (07:59→12:14)
[2019-08-15] MEDS: predniSONE 20 MG TAB 40 MG NG (07:59)
[2019-08-15] MEDS: Ferrous Sulfate 44 MG/ML Liquid 330 MG JT (07:59)
[2019-08-15] MEDS: Losartan 50 MG TAB PO ×2 (07:59→20:02)
[2019-08-15] MEDS: Lactobacillus Acidophilus CAP 1 CAP PO (07:59)
--- NOTE | 2019-08-15 09:39 | CMPROGNOTE_ITS ---
- If Service Date Differs Date of service: 08/15/19 Time of Service: 09:40 Care Management Progress Note S/O: chan was sitting on the edge of his bed when CM met with him. he was pleasant and receptive to conversation. Chan stated that he does not feel he needs any services at discharge but did share his concerns about the transfer of information from [facility] to [facility]. Chan is scheduled to have an aneurysm repaired at on 08/26/2019. He wanted to be sure records from this hospital stay would be sent to . CM assured him that his discharge summary and other notes will be faxed tomorrow. A: Pineda is a 74 year old male admitted to [facility] on 08/12/19 with pneumonia. P: Anticipate Pineda will return home when medically cleared. Evaluations will determine if additional support in the home is needed. He will follow up with his PCP and discharge plan of care. He will be driven home via private vehicle by family when ready. CM will continue to follow and support discharge planning considerations.
--- NOTE | 2019-08-15 11:32 | W.PM.PROGNOT ---
Date of Service Date of service: 08/15/19 Time of Service: 11:32 Assessment and Plan Assessment and plan (1) MRSA pneumonia: Status: Acute Assessment and plan: patient has known MRSA in the sputum and the assumption is that this is MRSA pneumonia. Continues to improve. CXR is reading CHF today and not PNA. Will give 1 dose of lasix IV. D/c cefepime. Continue vancomycin. Decrease steroids. (2) COPD with acute exacerbation: Status: Acute Assessment and plan: As above (3) Hypertension: Status: Chronic Assessment and plan: Some of the hypertension is likely fueled by steroids - decrease dose today. Girlfriend yet to bring in alfuzosin, which may have had a BP effect as well. Continue losartan, increase lopressor. Target SBP<140 Qualifiers: Hypertension type: essential hypertension Qualified Code(s): I10 - Essential (primary) hypertension (4) Restless leg syndrome: Status: Chronic Assessment and plan: Continue ropinirole. (5) Status post laryngectomy: Status: Acute Assessment and plan: For h/o laryngeal cancer with radiation treatment in 1999 and repair of TE fistula 09/2018. The patient should not be able to aspirate. His dietary restriction is due to esophageal dismotility rather than oropharyngeal-phase dysphagia. Continue thin/full liquids. Use j tube for medications and feedings. (6) Episode of shaking: Status: Acute Assessment and plan: Prior to admission. This really matches more with rigors or convulsive syncope in setting of hypoxia, though I do not see any true hypoxia recorded in the ED. No further workup - no recurrences of sx, completely resolved. (7) Abdominal aortic aneurysm: Status: Acute Assessment and plan: Patient should be able to have his [place] [facility] 2 weeks. We will send his images to [facility]. Intensify BP control with target SBP<140 - increase BB, and girlfriend is supposed to bring in alfuzosin. (8) DVT prophylaxis: Status: Acute Assessment and plan: Subcutaneous enoxaparin (9) Discharge planning issues: Status: Acute Assessment and plan: Full code. Anticipate discharge home tomorrow. Check ambulatory pulse ox. Subjective Subjective Interval history since last seen: Mr Nevarez thinks his breathing is at his baseline. States he hasn't been coughing. Denies dizziness, chest pain, shortness of breath, nausea. He is concerned about his BP. His girlfriend has not brought in his afluzosin yet. Would like to go home tomorrow. Awaiting his ambulatory pulse ox. Exam Narrative Exam Narrative: General: Very pleasant elderly male, sitting comfortably at the side of the bed, with humidified heated high flow O2 by trach collar, A&Ox3, communicating using a voice box, looks well HEENT: EOMI, though L eye is chronically somewhat closed, MMM Heart: RRR, no m/r/g Lungs: rhonchi which seem to be due to upper airway secretions Abdomen: soft, nontender, nondistended Extremities: no e/c/c BLE's Objective Objective Clinical Data: Abnormal lab results 08/15/19 08/15/19 Range/Units 06:01 06:05 WBC 11.68 H (4.4-10.8) k/cumm MCV 97.6 H (80-95) fL Absolute Neutrophils 9.65 H (1.2-6.7) k/cumm Absolute Lymphocytes 1.02 L (1.2-3.4) k/cumm Absolute Monocytes 0.95 H (0.11-0.7) k/cumm BUN 23 H (7-18) mg/dL Glucose 136 H (74-106) mg/dL Vital Signs Temperature 37.0 C 08/15/19 07:28 Temperature Source Tympanic 08/15/19 07:28 Pulse 71 08/15/19 07:28 Pulse Rhythm Regular 08/15/19 08:00 Pulse 101 H 08/12/19 15:50 Respiratory Rate 20 08/15/19 07:28 Respiratory Effort 08/15/19 08:00 Respiratory Depth Deep 08/15/19 08:00 Respiratory Pattern Tachypnea 08/15/19 08:00 Blood Pressure 188/92 H 08/15/19 07:28 Blood Pressure Mean 85 08/12/19 13:47 Blood Pressure Position Supine 08/12/19 11:36 Pulse Oximetry 95 08/15/19 07:28 Oxygen Delivery Method Trach Collar 08/15/19 07:28 Oxygen Flow Rate 55 08/15/19 10:19 Fraction of Inspired Oxygen (FIO2) 27 08/15/19 10:19 Pain Level 0 08/15/19 07:28 Comment 08/13/19 09:06 Intake & Output 08/14/19 08/14/19 08/15/19 11:59 23:59 11:59 Intake Total 350 / 1040 690 / 1040 350 / 350 Output Total 2180 / 3380 1200 / 3380 1050 / 1050 Balance -1830 / -2340 -510 / -2340 -700 / -700 Weight 81.1 kg Intake: IV 350 / 800 450 / 800 350 / 350 Oral 240 / 240 Output: Urine 2150 / 3350 1200 / 3350 1050 / 1050 Output, Residual 30 / 30 0 / 30 Other: Urine Color Yellow Pale Yellow Yellow Urine Appearance Clear Clear Clear Urine Odor None None Strong Comment Total four voids total 3 voids Voiding Methods Bedside Commode Bedside Commode Bedside Commode Laboratory Results WBC 11.68 k/cumm (4.4-10.8) H 08/15/19 06:05 RBC 4.99 m/cumm (4.50-6.00) 08/15/19 06:05 Hgb 16.0 g/dL (13.5-17.5) 08/15/19 06:05 Hct 48.7 % (40.0-50.0) 08/15/19 06:05 MCV 97.6 fL (80-95) H 08/15/19 06:05 MCH 32.1 pg (27.0-33.0) 08/15/19 06:05 MCHC 32.9 g/dL (32.0-36.0) 08/15/19 06:05 RDW 14.1 % (11.8-14.1) 08/15/19 06:05 Plt Count 319 x1000/uL (130-400) 08/15/19 06:05 MPV 9.9 fL (8.0-11.0) 08/15/19 06:05 Immature Gran % 0.3 % 08/15/19 06:05 Neutrophils % 82.6 08/15/19 06:05 Lymphocytes % 8.7 08/15/19 06:05 Monocytes % 8.1 08/15/19 06:05 Eosinophils % 0.3 08/15/19 06:05 Basophils % 0.0 08/15/19 06:05 Absolute Neutrophils 9.65 k/cumm (1.2-6.7) H 08/15/19 06:05 Absolute Lymphocytes 1.02 k/cumm (1.2-3.4) L 08/15/19 06:05 Absolute Monocytes 0.95 k/cumm (0.11-0.7) H 08/15/19 06:05 Absolute Eosinophils 0.04 k/cumm (0.0-0.7) 08/15/19 06:05 Absolute Basophils 0.00 k/cumm (0.0-0.2) 08/15/19 06:05 PT 10.7 sec (9.3-11.0) 08/12/19 12:00 INR 1.1 (0.9-1.1) 08/12/19 12:00 APTT 24.3 sec (21.0-31.4) 08/12/19 12:00 VBG pH 7.33 (7.35-7.45) L 08/12/19 12:00 VBG pCO2 59 mm/Hg (34-47) H 08/12/19 12:00 VBG pO2 29 mm/Hg (28-44) 08/12/19 12:00 VBG HCO3 31 mmol/L (22-28) H 08/12/19 12:00 VBG Total CO2 28 mmol/L (22-29) 08/12/19 12:00 VBG O2 Saturation 49 % (70-80) L 08/12/19 12:00 VBG Base Excess 5.1 mmol/L (-3-3) H 08/12/19 12:00 Sodium 136 mmol/L (136-145) 08/15/19 06:01 Potassium 4.4 mmol/L (3.5-5.1) 08/15/19 06:01 Chloride 99 mmol/L (98-107) 08/15/19 06:01 Carbon Dioxide 28.5 mmol/L (21.0-32.0) 08/15/19 06:01 Anion Gap 8.5 mmol/L (3-11) 08/15/19 06:01 BUN 23 mg/dL (7-18) H 08/15/19 06:01 Creatinine 0.81 mg/dL (0.70-1.30) 08/15/19 06:01 Estimated GFR/1.73 m2 >= 60.00 (mL/min/1.73m2) 08/15/19 06:01 Glucose 136 mg/dL (74-106) H 08/15/19 06:01 Lactate 1.1 mmol/L (0.6-1.4) 08/13/19 11:00 Calcium 8.9 mg/dL (8.5-10.1) 08/15/19 06:01 Magnesium 2.4 mg/dL (1.8-2.4) 08/15/19 06:01 Total Bilirubin 0.4 mg/dL (0.2-1.0) 08/12/19 12:00 AST 22 U/L (15-37) 08/12/19 12:00 ALT 24 U/L (16-63) 08/12/19 12:00 Alkaline Phosphatase 68 U/L (46-116) 08/12/19 12:00 Troponin I < 0.05 ng/Ml (<0.06) 08/12/19 12:00 Total Protein 7.1 g/dL (6.4-8.2) 08/12/19 12:00 Albumin 3.5 g/dL (3.4-5.0) 08/12/19 12:00 Procalcitonin 0.1 ng/mL 08/12/19 12:00 TSH 1.39 uIU/mL (0.36-3.74) 08/12/19 12:00 Vancomycin Trough 16.2 ug/mL (10.0-20.0) 08/14/19 12:55 CXR: Improvement in CHF.
[2019-08-15] MEDS: Pantoprazole 40 MG VIAL IVP (12:14)
[2019-08-15] MEDS: Metoprolol 25 MG TAB NG ×2 (12:15→17:23)
[2019-08-15] MEDS: Furosemide 40 MG/4 ML VIAL IVP (12:15)
--- NOTE | 2019-08-15 14:17 | W.NUTRFU ---
Date of service: 08/15/19 Time of Service: 14:17 Nutritional Follow up NOTE: Chan currently following full liquid diet with Magic Cup (290 kcal) TID, providing 600-800 kcal, 30-40 g protein, 1200 ml fluid. Via Peg receives 711 ml Nutren 2.0 providing a total of 1500 kcal, 63 g protein, 519 ml fluid. Meeting 100% nutrient and fluid needs with po intake and peg feedings. Weight gain of 15# noted in last 4 months, beneficial as now back to baseline weight. Chan reports he will discharge home tomorrow. Labs unremarkable. No nutritional recommendations at this time. Time Spent in Nutritional Counseling and Treatment: 15 min spent face to face
--- NOTE | 2019-08-15 14:37 | CHAPLAIN ---
Pineda was sitting up on the edge of his bed when I visited. We know each other from his previous admissions. He told me right away that his spiritual needs are taken care of. I let him know I'm available if he changes his mind and would like to have a conversation.
--- NOTE | 2019-08-15 15:02 | W.SPEECHNOTE ---
Date of service: 08/15/19 Time of Service: 15:02 Speech Therapy Visit Note Note: Swallow and Speech Screens completed. Pt is s/p total laryngectomy 10+ years ago. Also has h/o AAA and esophageal dysmotility. Pt can currently tolerate small amounts of thin liquids with no regurgitation (pt cannot physically aspirate), however he reports most solid foods cause globus sensation mid sternum followed by regurgitation/retching. Pt/spouse report he is already being [place] for [place] [facility] and is not interested in any further services here at this time. He reports he will continue with liquids. Pt had TEP prior however site was leaking creating fistula and TEP was removed. Site never closed per spouse report with subsequent leaking into airway requiring surgical closure. Pt has been using electrolarynx since that time and is not interested in pursuing another TEP or other alaryngeal speech option. Pt very fluent with electrolarynx and can communicate 100% of needs. No further [employer]ESSMENT needs at this time.
[2019-08-15] MEDS: Gabapentin 300 MG CAP 600 MG NG (17:23)
[2019-08-15] MEDS: Levothyroxine 112 MCG TAB JT (17:23)
[2019-08-15] MEDS: Acetaminophen 500 MG TAB 1000 MG PO ×2 (17:23→22:02)
[2019-08-15] MEDS: Enoxaparin 40 MG/0.4 ML SYR SC (17:24)
[2019-08-15] MEDS: predniSONE 20 MG TAB NG (20:02)
[2019-08-15] MEDS: Rosuvastatin 10 MG TAB 40 MG PO (20:02)
[2019-08-15] MEDS: rOPINIRole 1 MG TAB 2 MG JT (22:02)
[2019-08-15] MEDS: Gabapentin 300 MG CAP NG (22:03)
[2019-08-15] MEDS: Melatonin 3 MG TAB PO (22:03)
[2019-08-16] VITALS (9 sets, daily range): BP systolic 125–152; BP diastolic 67–74; PULSE 55–57; RESP 2–22; TEMP 31–37.2; O2SAT 90–98
[2019-08-16] MEDS: Albuterol/Ipratropium 3 ML UPD VIAL UPD ×3 (00:17→11:36)
[2019-08-16] MEDS: Normal Saline Flush 10 ML SYR IVP ×3 (02:18→12:47)
[2019-08-16] MEDS: Metoprolol 25 MG TAB NG (05:37)
[2019-08-16 07:00] LABS: Abs Immature Grans 0.11 k/cumm (0.0-0.09); Absolute Basophil Count 0.01 k/cumm (0.0-0.2); Absolute Eosinophil Count 0.15 k/cumm (0.0-0.7); Absolute Lymphocyte Count 1.35 k/cumm (1.2-3.4); Absolute Monocyte Count 1.81 k/cumm (0.11-0.7); Basophils % 0.1; Eosinophils % 1.2; HCT 46.8 % (40.0-50.0); HGB 15.5 g/dL (13.5-17.5); Immature Grans % 0.9 %; Lymphocytes % 10.7; Mean Corp. HGB Concentration 33.1 g/dL (32.0-36.0); Mean Corpuscular Hemoglobin 32.1 pg (27.0-33.0); Mean Corpuscular Volume 96.9 fL (80-95); Mean Platelet Volume 10.3 fL (8.0-11.0); Monocytes % 14.3; Neutrophils % 72.8; Platelet Count 323 x1000/uL (130-400); RBC 4.83 m/cumm (4.50-6.00); RBC Distribution Width 13.8 % (11.8-14.1); White Blood Cell Count 12.65 k/cumm (4.4-10.8)
[2019-08-16 07:05] LABS: Absolute Neutrophil Count 9.21 k/cumm (1.2-6.7)
[2019-08-16 07:17] LABS: Anion Gap 6.6 mmol/L (3-11); BUN 40 mg/dL (7-18); CO2 30.4 mmol/L (21.0-32.0); CREATININE 0.98 mg/dL (0.70-1.30); Calcium 8.8 mg/dL (8.5-10.1); Chloride 101 mmol/L (98-107); Glucose 66 mg/dL (74-106); Magnesium 2.3 mg/dL (1.8-2.4); Potassium 4.3 mmol/L (3.5-5.1); Sodium 138 mmol/L (136-145)
[2019-08-16] MEDS: Losartan 50 MG TAB PO (09:12)
[2019-08-16] MEDS: predniSONE 20 MG TAB NG (09:12)
[2019-08-16] MEDS: rOPINIRole 1 MG TAB JT (09:13)
[2019-08-16] MEDS: Lactobacillus Acidophilus CAP 1 CAP PO (09:13)
[2019-08-16] MEDS: Ferrous Sulfate 44 MG/ML Liquid 330 MG JT (09:13)
[2019-08-16] MEDS: Citalopram 20 MG TAB PO (09:13)
--- NOTE | 2019-08-16 12:18 | W.PM.DS.N ---
Date of service: 08/16/19 Time of Service: 12:18 DS: Diagnosis Discharge Diagnosis (1) MRSA pneumonia: Status: Acute (2) COPD with acute exacerbation: Status: Acute (3) Hypertension: Status: Chronic (4) Restless leg syndrome: Status: Chronic (5) Status post laryngectomy: Status: Acute (6) Episode of shaking: Status: Acute (7) Abdominal aortic aneurysm: Status: Acute Discharge Plan Disposition Patient Disposition: HOME Condition: Stable Discharge Details Chief Complaint: RespSymp Clinical Impression: COPD (chronic obstructive pulmonary disease) Reason For Visit: PNEUMONIA Admit Date/Time: 08/12/19 14:34 Admit Provider: Pablo Brooks Attending Provider: Pablo Brooks Primary Care Provider: Jackie Prasad ED Provider: Kalyan Barreto Hospital Course Hospital Course: this is a 74-year-old male former smoker with a history of COPD and laryngeal cancer status post laryngectomy complicated by T-E fistula which has since been repaired. He is followed by his specialist down at [facility]. Patient had a recent bronchoscopy and laryngoscopy in which mucopurulent discharge grew out MRSA. He had been prescribed a 10-day course of Bactrim DS p.o. twice daily. He has been having progressive dyspnea for the last couple months to the point where he cannot even dress himself without getting out of breath he has had no fever or rigors but increased cough productive of purulent mucus. He has a tracheostomy and wears oxygen via trach mask. Work up in the emergency department revealed a white count of 15,300 whereas it had been 10,000 couple weeks ago. His chemistries revealed an elevated blood lactate of 2.1 with a normal creatinine 1.1 and a BUN of 24. Rest of his electrolytes were within normal limits. His chest x-ray showed new infiltrates right upper lobe which was read by radiology as questionable CHF superimposed on pulmonary fibrosis. Blood cultures remained negative to date. Nasal swab for influenza was negative. Patient was started on Rocephin and vancomycin in the emergency department but on admission switched his coverage to cefepime and Levaquin and vancomycin. This is likely a staph aureus pneumonia but until cultures returned thought to keep broad. He slowly improved and his antibiotics were discontinued remaining on vancomycin only. he has completed 5 days of vancomycin and plan is to stop at discharge. he also was diuresed for fluid overload and respiratory status improved. He will be discharged to home. Home Meds and New Rx's Prescriptions: New prednisone 20 mg Tablet 20 mg NG BID Qty: 12 RF: 0 Continued alfuzosin [Uroxatral] 10 mg tablet extended release 24 hr 10 mg PO DAILY Qty: 90 RF: 3 Adult 50 Plus Probiotic 4 billion cell capsule 4,000 mmu cells PO DAILY RF: 0 melatonin 3 MG tablet 3 mg PO HS Qty: 90 RF: 2 acetaminophen [Tylenol Extra Strength] 500 mg tablet 1,000 mg PO .1600, 2200 PRNRF: 0 3 mLs Saline Vials 1 vial inhalation QID Qty: 120 RF: 4 ferrous sulfate 220 mg (44 mg iron)/5 mL solution 330 mg Feeding Tube DAILY Qty: 473 RF: 5 citalopram 20 mg tablet 20 mg PO DAILY Qty: 90 RF: 4 ipratropium-albuterol 0.5 mg-3 mg(2.5 mg base)/3 mL solution for nebulization 3 ml IN TID PRN (Reason: shortness of breath or wheezing) Qty: 90 RF: 4 losartan 50 mg Tablet 50 mg feeding tube .Q5PM RF: 0 ropinirole 1 mg Tablet 1 mg feeding tube DIRECTED RF: 0 sulfamethoxazole-trimethoprim 800-160 mg Tablet 1 tab feeding tube BID RF: 0 gabapentin 300 mg Capsule 300 mg feeding tube DIRECTED RF: 0 omeprazole 20 mg Capsule,Delayed Release(Dr/Ec) 20 mg feeding tube BID RF: 0 levothyroxine 112 mcg Tablet 112 mcg feeding tube DAILY@1700 RF: 0 rosuvastatin 40 mg Tablet 40 mg feeding tube HS RF: 0 Refresh Tears 0.5 % Drops 1 drp ophthalmic (eye) PRN PRNRF: 0 Discharge Instructions Instructions: Bacterial Pneumonia (DC) Additional Instructions: you have completed your course of antibiotics taper steroids, prednisone 20 mg daily for 4 days, then 10 mg daily for 4 days, then stop Stand Alone Forms: Nursing Discharge Form Referrals: Jackie Prasad MD [Primary Care Provider] - 08/22/19 10:20 am Activity:: Activity as Tolerated Equipment/Supplies:: No Equipment Needed Diet:: As Tolerated Discharge Orders Discharge Orders: Discharge Order (Routine); Ordered 08/16/19 Ordered By: Grecia Guillen Discharge Data Discharge Date/Time-TO BE ENTERED AT DEPARTURE: 08/16/19 14:49 DS: Summary Status at Discharge Functional status at discharge: independent ambulation Overall status at discharge: patient is progressing back to baseline Mental Status: mental status grossly normal Speech and Movement: speech and movement normal Mood: congruent mood Affect: normal affect Exam Const General: cooperative, healthy appearing, comfortable and no acute distress Nutritional Appearance: average body habitus Orientation: alert, awake and oriented x3 Neck Neck: tracheostomy present Resp Auscultation: other (coarse scattered breath sounds, exp wheeze faint) Cardio Rate: regular rate Rhythm: regular rhythm Psych Mental Status: mental status grossly normal Speech and Movement: speech and movement normal Mood: congruent mood Affect: normal affect DS: Data Vitals/I&O Vitals and I&O: Vital Signs Temperature 37.2 C 08/16/19 07:59 Temperature Source Tympanic 08/16/19 07:59 Pulse 55 L 08/16/19 07:59 Pulse Rhythm Regular 08/16/19 07:35 Pulse 101 H 08/12/19 15:50 Respiratory Rate 22 08/16/19 07:59 Respiratory Effort 08/16/19 07:35 Respiratory Depth Normal 08/16/19 07:35 Respiratory Pattern Normal 08/16/19 07:35 Blood Pressure 152/74 H 08/16/19 07:59 Blood Pressure Mean 85 08/12/19 13:47 Blood Pressure Position Supine 08/12/19 11:36 Pulse Oximetry 98 08/16/19 11:36 Oxygen Delivery Method Hi Flow Nasal Cannula 08/16/19 11:36 Oxygen Flow Rate 55 08/16/19 11:36 Fraction of Inspired Oxygen (FIO2) 27 08/16/19 11:36 Pain Level 0 08/16/19 07:59 Comment 08/13/19 09:06 Intake & Output 08/15/19 08/16/19 08/16/19 23:59 11:59 23:59 Intake Total 740 / 1090 240 / 240 Output Total 3000 / 4050 1000 / 1000 Balance -2260 / -2960 -760 / -760 Weight 80.1 kg Intake: IV 260 / 610 Oral 480 / 480 240 / 240 Output: Urine 2300 / 3350 1000 / 1000 Emesis 700 / 700 Other: Urine Color Pale Pale Urine Appearance Clear Urine Odor Strong Stool Size Moderate Large Stool Characteristics Formed Soft Green Formed Emesis Description Undigested Food Voiding Methods Bedside Commode Bedside Commode Data Completed and Pending Labs on day of discharge: Labs from last 24 hours 08/16/19 08/16/19 06:16 06:16 WBC 12.65 H RBC 4.83 Hgb 15.5 Hct 46.8 MCV 96.9 H MCH 32.1 MCHC 33.1 RDW 13.8 Plt Count 323 MPV 10.3 Immature Gran % 0.9 Neutrophils % 72.8 Lymphocytes % 10.7 Monocytes % 14.3 Eosinophils % 1.2 Basophils % 0.1 Absolute Neutrophils 9.21 H Absolute Lymphocytes 1.35 Absolute Monocytes 1.81 H Absolute Eosinophils 0.15 Absolute Basophils 0.01 Sodium 138 Potassium 4.3 Chloride 101 Carbon Dioxide 30.4 Anion Gap 6.6 BUN 40 H D Creatinine 0.98 Estimated GFR/1.73 m2 >= 60.00 Glucose 66 L D Calcium 8.8 Magnesium 2.3 08/12/19 13:25 Sputum Sputum Culture - Pending 08/12/19 13:25 Sputum Gram Stain - Pending Preliminary micro results at discharge 08/12/19 14:05 Blood Culture - Preliminary Blood NO GROWTH 72 HOURS 08/12/19 13:57 Blood Culture - Preliminary Blood NO GROWTH 72 HOURS 08/12/19 13:25 Sputum Culture - Pending Sputum Gram Stain - Pending [facility] Medical History Abdominal aortic aneurysm (Acute ~03/2019) Dr. Anders Smalls, [place] [facility] 5.5 cm pararenal and suprarenal aneurysm; not candidate for open repair but being considered for fenestrated endovascular repair Alcohol abuse (Inactive) Anxiety Blockage of feeding tube (Resolved) CAD (coronary artery disease) (Chronic) COPD (chronic obstructive pulmonary disease) Cortical cataract of right eye (Resolved) Depression History of alcoholism (Inactive) sober x 25yrs History of tobacco use (Inactive) Hyperlipemia Hypertension Hypothyroidism Impingement syndrome, shoulder, left (Inactive 10/10/16) -2016: PT yomaira. 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 Tobacco use (Inactive) Surgical History Colonoscopy - MAC (12/22/16) EGD - MAC (07/06/17) 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) Sin-mullins button placed by Dr Elia Mcdonald [facility] History of esophagogastroduodenoscopy (EGD) (Chronic ~08/10/19) Daron Casper APRN [place] [facility]: hiatal hernia, GERD, Reyes's esophagitis, neuromuscular dysfunction History of laryngectomy (Inactive) History of radical laryngectomy (Inactive) History of tarsorrhaphy (Resolved) PROCEDURES RT/LEFT HEART CARD CATH COMPLETE LARYNGECTOMY Esophagoplasty Status post cardiac catheterization (Inactive) Status post cataract extraction and insertion of intraocular lens of left eye (Resolved 04/30/12) Status post cataract extraction and insertion of intraocular lens of right eye (Resolved 07/12/18) Social History Smoking/Tobacco Use Status: Former Tobacco Use Tobacco: How many years used: 30 Alcohol Intake: never Drug use: Never Substance use type: does not use Current gender identity: male Do you feel safe at home: Yes Do you feel safe in your relationship?: Yes
--- NOTE | 2019-08-16 15:38 | PDOC.CMDIS ---
- If Service Date Differs Date of service: 08/16/19 Time of Service: 15:38 LACE Index Scoring Tool - Questions: Length of Stay (in days): 4 - 6 Acuity (Admit via E.D.?): Yes Comorbidities: Chronic Pulmonary Disease, Any Tumor E.D. Visits: 12 - Answers: Total Score: 16 Risk of Readmission: High Risk Care Management Discharge Reason for Hospitalization: Pnuemonia Discharge Plan: Pineda will return home with no new services. He will follow up with his PCP and discharge plan of care. He will be driven home via private vehicle by family. Chan is scheduled to have an aneurysm repaired at [facility] next week. CM coordinated the required op testing needed prior to the procedure. Patient/Family Education Needs: Review discharge instructions regarding activity levels, medications and nutrition, discussion of self care needs including ask me three and goals of care.
--- NOTE | 2019-08-16 16:09 | W.INDIABCONS ---
Date of service: 08/16/19 Time of Service: 16:09 Diabetes Inpatient Consult DESCRIPTION/ASSESSMENT: Appreciate diabetes consult for Mr. Nevarez hospitalized with MRSA pneumonia, COPD and s/p laryngeal CA receiving nutrition from tube feeding and soft foods. Met with him regarding his nutrition but not his diabetes. BMI 26 No current A1c available. Blood sugars here 66-136mg/dl not requiring any correction insulin during this hospitalization. INTERVENTION: AT this time no intervention suggested. PLAN: Patient is aware of our services and will be in touch as needed. Further nutritional support as needed to maintain his current nutritional health Time Spent in Nutritional Counseling and Treatment: 0 minutes face to face for diabetes
[2019-08-16 16:18] LABS: Streptococcus Pneumoniae Ag, U Negative (Negative)
== END 2019-08-16 14:49 | disposition home or self-care (01) | DRG 178 ==
LOC: ER 15:11 → MS 16:27 → ER 08-13 09:41 → MS 08-13 09:42
PROVIDERS: Internal Medicine; Nurse Practitioner Family; Admitting Provider Internal Medicine; Emergency Provider Emergency Medicine; PCP Family Medicine; Visit Provider Internal Medicine
DX: J15.212 Pneumonia due to Methicillin resistant Staphylococcus aureus (principal); J44.0 Chronic obstructive pulmonary disease with (acute) lower respiratory infection; J44.1 Chronic obstructive pulmonary disease with (acute) exacerbation; Z93.0 Tracheostomy status; G62.9 Polyneuropathy, unspecified; E87.70 Fluid overload, unspecified; G25.81 Restless legs syndrome; I10 Essential (primary) hypertension; I71.4 Abdominal aortic aneurysm, without rupture; Z90.02 Acquired absence of larynx; Z87.891 Personal history of nicotine dependence; Z85.21 Personal history of malignant neoplasm of larynx; F41.9 Anxiety disorder, unspecified; F10.11 Alcohol abuse, in remission; I25.10 Atherosclerotic heart disease of native coronary artery without angina pectoris; F32.9 Major depressive disorder, single episode, unspecified; E78.5 Hyperlipidemia, unspecified; E03.9 Hypothyroidism, unspecified; R91.1 Solitary pulmonary nodule; Z93.1 Gastrostomy status
CPT/HCPCS: 36410; 36415; 80048; 80053; 82805; 84145; 87040; 87081; 87449; 93005; 94618; 94640; 96361; 96365; 96367; 96375; 99223; 99232; 99233; 99239; 99285; J1650; NC; 70450; 71045; 71046; 80202; 83605; 83735; 84443; 84484; 85025; 85610; 85730; 87070; 87205; 87450; 93010; G0378; J1940; J1956; J2930; J3370; J3490; J7512; J7620

== ENCOUNTER 2019-08-16 14:54 | Outpatient (CLI) | payer MEDICARE, SELFPAY ==
[2019-08-16 15:22] LABS: HCT 48.9 % (40.0-50.0); HGB 15.7 g/dL (13.5-17.5); Mean Corp. HGB Concentration 32.1 g/dL (32.0-36.0); Mean Corpuscular Hemoglobin 31.2 pg (27.0-33.0); Mean Corpuscular Volume 97.2 fL (80-95); Mean Platelet Volume 9.5 fL (8.0-11.0); Platelet Count 292 x1000/uL (130-400); RBC 5.03 m/cumm (4.50-6.00); White Blood Cell Count 12.77 k/cumm (4.4-10.8)
[2019-08-16 15:42] LABS: Bilirubin Negative (Negative); Blood Negative (Negative); Clarity Clear (Clear); Glucose Negative (Negative); Ketones Negative (Negative); Leukocyte Esterase Trace (Negative); Nitrite Negative (Negative); Urobilinogen 0.2 EU/dL (Up TO 0.2); pH 6.5 (5-8)
[2019-08-16 15:52] LABS: Bacteria Rare HPF (Negative); C & S Indicated? Yes; Casts Negative LPF (Negative); Crystals Negative HPF (Negative); Epithelial Cells Rare HPF (Negative); Mucus Negative (Negative); Other Cells Rare Yeast (Negative); WBC 20-50 HPF (0-5)
[2019-08-17 11:42] LABS: Prealbumin 38 mg/dL (20-40)
== END 2019-08-16 15:14 ==
PROVIDERS: PCP Family Medicine; Visit Provider Surgery
DX: I71.4 Abdominal aortic aneurysm, without rupture (principal); Z01.818 Encounter for other preprocedural examination; Z01.812 Encounter for preprocedural laboratory examination
CPT/HCPCS: 36415; 85027; 81003; 81015; 84134; 87086

== ENCOUNTER 2019-08-16 14:55 | Outpatient (CLI) | payer MEDICARE, SELFPAY | END 2019-08-16 15:15 | PROVIDERS: PCP Family Medicine; Visit Provider Family Medicine | DX: I71.4 Abdominal aortic aneurysm, without rupture (principal); Z01.810 Encounter for preprocedural cardiovascular examination; R94.31 Abnormal electrocardiogram [ECG] [EKG] ==

== ENCOUNTER 2019-09-26 12:54 | Outpatient (REF) | payer MEDICARE, SELFPAY ==
[2019-09-26 13:32] LABS: Abs Immature Grans 0.04 k/cumm (0.0-0.09); Absolute Basophil Count 0.08 k/cumm (0.0-0.2); Absolute Eosinophil Count 0.44 k/cumm (0.0-0.7); Absolute Monocyte Count 0.96 k/cumm (0.11-0.7); Absolute Neutrophil Count 14.53 k/cumm (1.2-6.7); Basophils % 0.5; Eosinophils % 2.6; HCT 43.8 % (40.0-50.0); HGB 13.9 g/dL (13.5-17.5); Immature Grans % 0.2 %; Lymphocytes % 5.1; Mean Corp. HGB Concentration 31.7 g/dL (32.0-36.0); Mean Corpuscular Hemoglobin 32.1 pg (27.0-33.0); Mean Corpuscular Volume 101.2 fL (80-95); Mean Platelet Volume 12.1 fL (8.0-11.0); Monocytes % 5.7; Neutrophils % 85.9; Platelet Count 198 x1000/uL (130-400); RBC 4.33 m/cumm (4.50-6.00); RBC Distribution Width 13.3 % (11.8-14.1); White Blood Cell Count 16.92 k/cumm (4.4-10.8)
[2019-09-26 13:34] LABS: Absolute Lymphocyte Count 0.86 k/cumm (1.2-3.4)
[2019-09-26 13:43] LABS: ALT 25 U/L (16-63); AST 20 U/L (15-37); Albumin 3.2 g/dL (3.4-5.0); Alkaline Phosphatase 73 U/L (46-116); Anion Gap 5.6 mmol/L (3-11); BUN 23 mg/dL (7-18); Bilirubin, Total 0.5 mg/dL (0.2-1.0); CO2 31.4 mmol/L (21.0-32.0); CREATININE 0.95 mg/dL (0.70-1.30); Calcium 8.6 mg/dL (8.5-10.1); Chloride 100 mmol/L (98-107); Glucose 102 mg/dL (74-106); Potassium 4.6 mmol/L (3.5-5.1); Sodium 137 mmol/L (136-145); Total Protein 6.3 g/dL (6.4-8.2); Vancomycin, Trough 13.9 ug/mL (10.0-20.0)
== END 2019-09-26 13:14 ==
LOC: LBN 12:54
PROVIDERS: PCP Family Medicine; Referring Provider Family Medicine; Visit Provider Internal Medicine Infectious Disease
DX: J18.9 Pneumonia, unspecified organism (principal); Z79.2 Long term (current) use of antibiotics
CPT/HCPCS: 80053; 80202; 85025

== ENCOUNTER 2019-09-30 13:16 | Outpatient (REF) | payer MEDICARE, SELFPAY | END 2019-09-30 13:36 | LOC: LBN 13:16 | PROVIDERS: PCP Family Medicine; Visit Provider Family Medicine | DX: Z79.2 Long term (current) use of antibiotics (principal); J15.212 Pneumonia due to Methicillin resistant Staphylococcus aureus | CPT/HCPCS: 87324 ==

== ENCOUNTER 2019-10-29 02:11 | Observation (INO) | payer MEDICARE, SELFPAY ==
[2019-10-29] VITALS (48 sets, daily range): BP systolic 69–153; BP diastolic 37–72; PULSE 68–111; RESP 10–30; TEMP 31–36.5; O2SAT 88–100
--- NOTE | 2019-10-29 02:21 | ED.GENADUL_ITS ---
Discharge Plan Disposition Patient Disposition: [facility] INPATIENT Condition: Stable Discharge Details Chief Complaint: Abd Prob Clinical Impression: Leukocytosis, Nausea and vomiting, Elevated troponin Primary Care Provider: Jackie Prasad ED Provider: Kalyan Barreto [place] Meds and New Rx's Prescriptions: No Action alfuzosin [Uroxatral] 10 mg tablet extended release 24 hr 10 mg PO DAILY Qty: 90 RF: 3 Adult 50 Plus Probiotic 4 billion cell capsule 4,000 mmu cells PO DAILY RF: 0 clonazepam 0.5 mg tablet 0.5 mg PO BID PRN (Reason: anxiety) Qty: 10 RF: 0 loperamide 2 mg tablet 2 mg PO QID PRN (Reason: loose stool) Qty: 30 RF: 1 omeprazole 20 mg capsule,delayed release(DR/EC) 20 mg feeding tube BID Qty: 90 RF: 4 acetaminophen [Tylenol Extra Strength] 500 mg tablet 1,000 mg PO .1600, 2200 PRNRF: 0 3 mLs Saline Vials 1 vial inhalation QID Qty: 120 RF: 4 citalopram 20 mg tablet 20 mg PO DAILY Qty: 90 RF: 4 ipratropium-albuterol 0.5 mg-3 mg(2.5 mg base)/3 mL solution for nebulization 3 ml IN TID PRN (Reason: shortness of breath or wheezing) Qty: 90 RF: 4 Neosporin (mql-qis-zelgj) 3.5mg-400 unit- 5,000 unit/gram ointment 1 applic TP BID PRN (Reason: skin irritation) Qty: 28.3 RF: 2 ropinirole 1 mg Tablet 1 mg feeding tube DIRECTED RF: 0 gabapentin 300 mg Capsule 300 mg feeding tube DIRECTED RF: 0 levothyroxine 112 mcg Tablet 112 mcg feeding tube DAILY@1700 RF: 0 rosuvastatin 40 mg Tablet 40 mg feeding tube HS RF: 0 Refresh Tears 0.5 % Drops 1 drp ophthalmic (eye) PRN PRNRF: 0 losartan 50 mg tablet 50 mg feeding tube .Q5PM RF: 0 melatonin 3 MG tablet 6 mg PO HS RF: 0 ferrous sulfate 220 mg (44 mg iron)/5 mL solution 300 mg Feeding Tube DAILY RF: 0 oxycodone 5 mg/5 mL solution 5 mg feeding tube Q4H PRN PRNRF: 0 aspirin 81 mg Tablet,Chewable 81 mg feeding tube DAILY RF: 0 Bifidobacterium infantis 4 mg Capsule 4 mg feeding tube DAILY RF: 0 vancomycin HCl in water 100 mg/mL Solution 250 mg BID RF: 0 Medical Decision Making 74 yo male with hx of laryngeal carcinoma s/p radiation and laryngectomy, TE fistula repair, g tube, htn, hld, CAD, who underwent multiple stent placement of thoracic and abdominal aortic aneurysm on 10/16 and d/c'd on 10/26 comes in with EMS with complaints of acute onset n/v starting an hour or so ago. He has had generalized abdominal pain as well for about a day and does have tenderness throughout without guarding or rebound and surgical wounds have no significant erythema or discharge. He denies chest pain or chest pressure. He does have left lateral upper thigh pain that he states he gets frequently for years. Has intact distal sensation and palpable dp pulses bilaterally. Given the recent surgery concern for post op complications such as sbo, will obtain labs and ct imaging of chest abd and pelvis. Was given zofran with ems which has helped his symptoms minimally pt remains stable, denies any chest pain but troponin returned at 0.14 which could be demand from the surgery he recently had and wbc is 28. 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 Will consult with vascuar surgery spoke with Dr. Henderson from vascular surgery at [facility] who reviewed the case and looked at the images and advised he doesn't have an endoleak as it is a staged repair and there are no new findings compared to imaging done there and he doesn't feel transfer is required as he has no acute findings on imaging. HE did state he had leukocytosis while he was there but not up to 28 and was 16 just 2 days ago. I did offer to speak with medicine team at [facility] for transfer for [place] for IV abx and trending troponins but he declined and doesn't want transfer wants to be admitted here. Will discuss with hospitalist. uA came back with leukocytes which could be source of leukocytosis, Dr. Aguirre to admit Differential Diagnosis Differential Diagnosis: sbo, stent occlusion, endoleak Medical Records Medical records reviewed: Yes I reviewed the patient's medical records. Imaging Data Radiologic Study: Attestation: I personally reviewed and interpreted this imaging study as follows: Imaging: CT Scan Radiologist's impression: IMPRESSION: 1. Extensive atherosclerotic changes of the thoracic aorta without evidence of aneurysm. The dimensions of the abdominal aorta remains stable when compared to the above reference prior examination. There is no evidence of leakage. 2. Status post endovascular repair of of an abdominal aortic aneurysm. The aortic endoprosthesis starts in the distal descending thoracic aorta. 3. Mild diffuse coarsening of the interstitial markings. 4. Subacute or chronic compression fractures of T7 and T12. IMPRESSION: 1. Status post endovascular repair of suprarenal and infrarenal segments of abdominal aortic aneurysm. The diameter of the abdominal aorta remains stable. 2. There is an endoleak at the level of the aortic bifurcation likely supplied by the SHY. 3. There is a hematoma surrounding the right common, external and internal iliac arteries extending to the inguinal canal as described. 4. There are patent celiac trunk and bilateral renal artery stents. 5. There is diffuse atherosclerotic calcification with areas of stenosis in the outflow common femoral, superficial femoral and popliteal arteries bilaterally. Stenosis is most severe on the left. 6. 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 The 7. Other incidental findings as above. Lab Data Lab results reviewed: Yes I reviewed the patient's lab results. ECG Data Attestation: I personally reviewed and interpreted this ECG (s) as follows: Prior ECG tracings: available for review Interpretation: sinus rhythm, rate of 64, pr 204, rbbb, no acute changes from old ekg HPI General Mode of arrival: EMS . Date/Time Provider Initiated Documentation: 10/29/19 02:20 . Limitations to Documentation: no limitations . Information obtained by: patient . History of Present Illness 74 year old M presents to the emergency department with the chief complaint of nausea/vomit, described as moderate, Patient reports no radiation. Patient started experiencing this hour(s) (1) No relieving factors improve symptom(s), No exacerbating factors reported . Related Data Home Medications Medication Instructions Recorded Confirmed acetaminophen 500 mg tablet 1,000 mg PO .1600, 2200 PRN tab 04/05/18 10/29/19 lactobacillus combination no.9 4 4,000 mmu cells PO DAILY 09/15/18 10/29/19 billion cell capsule alfuzosin 10 mg tablet,extended 10 mg PO DAILY #90 tab-cap 09/17/18 10/29/19 release 24 hr 3 mLs Saline Vials 1 vial INHALATION QID #120 vial 01/06/19 09/26/19 citalopram 20 mg tablet 20 mg PO DAILY #90 tab 04/04/19 10/29/19 gabapentin 300 mg FEEDING TUBE DIRECTED 08/12/19 10/29/19 ipratropium 0.5 mg-albuterol 3 mg 3 ml IN TID PRN #90 ml 08/12/19 10/29/19 (2.5 mg base)/3 mL nebulization soln levothyroxine 112 mcg FEEDING TUBE DAILY@1700 08/12/19 10/29/19 ropinirole 1 mg FEEDING TUBE DIRECTED 08/12/19 10/29/19 rosuvastatin 40 mg FEEDING TUBE HS 08/12/19 10/29/19 Refresh Tears 1 drp OPHTHALMIC (EYE) PRN PRN 08/14/19 10/29/19 neomycin-bacitracn Zn-polymyx 3.5 1 applic TP BID PRN #28.3 gm 09/16/19 09/26/19 mg-400 unit-5,000 unit/gram top oint clonazepam 0.5 mg tablet 0.5 mg PO BID PRN #10 tab 09/26/19 09/26/19 loperamide 2 mg tablet 2 mg PO QID PRN #30 tab 09/26/19 10/29/19 omeprazole 20 mg capsule,delayed 20 mg FEEDING TUBE BID #90 cap 10/05/19 10/29/19 release Bifidobacterium infantis 4 mg FEEDING TUBE DAILY 10/29/19 10/29/19 aspirin 81 mg FEEDING TUBE DAILY 10/29/19 10/29/19 ferrous sulfate 300 mg FEEDING TUBE DAILY 10/29/19 10/29/19 losartan 50 mg FEEDING TUBE .Q5PM 10/29/19 10/29/19 melatonin 6 mg PO HS 10/29/19 10/29/19 oxycodone 5 mg FEEDING TUBE Q4H PRN PRN 10/29/19 10/29/19 vancomycin HCl in water 250 mg BID 10/29/19 10/29/19 Previous Rx's Medication Instructions Recorded alfuzosin 10 mg tablet,extended 10 mg PO DAILY #90 tab-cap 09/17/18 release 24 hr 3 mLs Saline Vials 1 vial INHALATION QID #120 vial 01/06/19 citalopram 20 mg tablet 20 mg PO DAILY #90 tab 04/04/19 ipratropium 0.5 mg-albuterol 3 mg 3 ml IN TID PRN #90 ml 08/12/19 (2.5 mg base)/3 mL nebulization soln neomycin-bacitracn Zn-polymyx 3.5 1 applic TP BID PRN #28.3 gm 09/16/19 mg-400 unit-5,000 unit/gram top oint clonazepam 0.5 mg tablet 0.5 mg PO BID PRN #10 tab 09/26/19 loperamide 2 mg tablet 2 mg PO QID PRN #30 tab 09/26/19 omeprazole 20 mg capsule,delayed 20 mg FEEDING TUBE BID #90 cap 10/05/19 release Allergies Allergy/AdvReac Type Severity Reaction Status Date / Time pollen extracts Allergy Mild Verified 10/29/19 02:19 Tetracyclines Allergy Unknown SKIN RASH Verified 10/29/19 02:19 General Stated Complaint: Abd Prob CHER: 3 Review of Systems All systems reviewed & are unremarkable except as noted in HPI and below Constitutional Constitutional: Denies chills and Denies fever(s) Cardiovascular Cardiovascular: Denies chest pain and Denies dyspnea Respiratory Respiratory: Denies cough and Denies dyspnea Musculoskeletal Musculoskeletal: Denies joint swelling Psychiatric Psychiatric: Denies depression [facility] Medical History Abdominal aortic aneurysm (Acute ~03/2019) Dr. Anders Smalls, vascular surgery @ [facility]; 5.5 cm pararenal and suprarenal aneurysm; not candidate for open repair but being considered for fenestrated endovascular repair Alcohol abuse (Inactive) Anxiety Blockage of feeding tube (Resolved) CAD (coronary artery disease) (Chronic) COPD (chronic obstructive pulmonary disease) Cortical cataract of right eye (Resolved) Depression History of alcoholism (Inactive) sober x 25yrs History of tobacco use (Inactive) Hyperlipemia Hypertension Hypothyroidism Impingement syndrome, shoulder, left (Inactive 10/10/16) -2016: PT sugg. 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) Nuclear sclerotic cataract of right eye (Resolved) Peripheral neuropathy (Chronic 02/21/15) Post herpetic neuralgia Posterior subcapsular age-related cataract, right eye (Resolved) Primary malignant neoplasm of oropharynx (Chronic) ; yearly fup in Feb (last ) [facility] SX: 2007 ROR: 2000 + 2007 Pulmonary nodule, right (Chronic 05/30/15) on chest CT -2016: stable Restless leg syndrome (Chronic 02/21/15) Sessile colonic polyp (Inactive) 12/22/16-SESSILE SERRATED ADENOMA Tobacco use (Inactive) Surgical History Colonoscopy - MAC (12/22/16) EGD - MAC (07/06/17) 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) Sin-mullins button placed by Dr Elia Mcdonald, [facility] History of esophagogastroduodenoscopy (EGD) (Chronic ~08/10/19) Daron Casper APRN @ [facility]: hiatal hernia, GERD, Reyes's esophagitis, neuromuscular dysfunction History of laryngectomy (Inactive) History of radical laryngectomy (Inactive) History of tarsorrhaphy (Resolved) PROCEDURES RT/LEFT HEART CARD CATH COMPLETE LARYNGECTOMY Esophagoplasty Status post cardiac catheterization (Inactive) Status post cataract extraction and insertion of intraocular lens of left eye (Resolved 04/30/12) Status post cataract extraction and insertion of intraocular lens of right eye (Resolved 07/12/18) Social History Smoking/Tobacco Use Status: Former Tobacco Use Tobacco: How many years used: 30 Alcohol Intake: never Drug use: Never Substance use type: does not use Current gender identity: male Do you feel safe at home: Yes Do you feel safe in your relationship?: Yes Exam Const General: no acute distress Orientation: alert HENMT Head: normal to inspection Ears: external ears normal General nose exam: external nose normal Mouth: moist mucous membranes Eyes General: appearance normal, both eyes and all related structures Neck Neck: normal visual inspection Resp Effort & Inspection: normal respiratory effort and able to speak in complete sentences Cardio Rate: regular rate GI Palpation: tender Skin General skin exam: no rashes or lesions noted Neuro General: patient alert and patient oriented x3 Extrem General: normal to inspection Psych Mental Status: mental status grossly normal Course Vital Signs Vital signs: Vital Signs Temperature 36.3 C L 10/29/19 02:11 Pulse 89 10/29/19 02:11 Respiratory Rate 24 10/29/19 02:11 Pulse Oximetry 88 L 10/29/19 02:11 Temperature 36.3 C L 10/29/19 02:11 Pulse 89 10/29/19 02:11 Respiratory Rate 24 10/29/19 02:11 Pulse Oximetry 88 L 10/29/19 02:11 Pain Level 9 10/29/19 02:11
[2019-10-29 02:33] LABS: BE (Venous) 0.9 mmol/L (-3-3); HCO3 (Venous) 27 mmol/L (22-28); O2 Sat (Venous) 49 % (70-80); TCO2 (Venous) 26 mmol/L (22-29); pCO2 (Venous) 51 mm/Hg (34-47); pH (Venous) 7.33 (7.35-7.45); pO2 (Venous) 30 mm/Hg (28-44)
[2019-10-29 02:36] LABS: Abs Immature Grans 1.03 k/cumm (0.0-0.09); Basophils % 0.1; Eosinophils % 0.9; HCT 31.5 % (40.0-50.0); HGB 10.1 g/dL (13.5-17.5); Immature Grans % 3.7 %; Lymphocytes % 2.6; Mean Corp. HGB Concentration 32.1 g/dL (32.0-36.0); Mean Corpuscular Hemoglobin 31.7 pg (27.0-33.0); Mean Corpuscular Volume 98.7 fL (80-95); Monocytes % 3.7; RBC 3.19 m/cumm (4.50-6.00); RBC Distribution Width 13.9 % (11.8-14.1)
[2019-10-29] MEDS: Ondansetron 4 MG/2 ML VIAL (02:45)
--- NOTE | 2019-10-29 02:47 | DI.CT_ITS ---
EXAM: CT THORAX ABD/PEL CTA CLINICAL HISTORY: recent AAA repair at [facility] [place], n/v and pain. TECHNIQUE: Imaging Protocol: Axial CT angiography was performed with multi-slice acquisition and m ulti-planar and/or 3D reconstructions. CONTRAST MATERIAL: Intravenous: Omnipaque 350 Contrast volume:100 ml Oral: yes / no COMPARISON: CT CT THORAX ABD/PEL CTA from 07/12/2019 FINDINGS: Patient motion artifact. CHEST: Thyroid: Not visualized. Tracheobronchial tree: Patent where visualized. Mediastinum and Sonali: No dominant adenopathy or fluid collection. Pulmonary parenchyma: There do appear to be stable interstitial findings in the lungs which are likel y chronic. Dependent atelectatic changes are seen in the bases. No definite acute pulmonary process . Pleura: No effusion or pneumothorax. Lymph nodes: Within normal limits. Aorta: Atherosclerosis. There has been no significant change in the size of the distal descending th oracic aorta and proximal abdominal aorta. There is a stent in place at this level. Pulmonary arteries: No evidence of a pulmonary embolism. Heart: Mildly enlarged. Coronary artery calcifications are present. No significant pericardial effu anitha. Bones: Old compression fracture deformities of T7, T12 and L1 are present. Degenerative changes are seen in the spine. CTA of the abdomen and pelvis: Vascular Structures: Celiac Wolsey/SMA: There is a stent in the celiac trunk which remains patent. Renal Arteries: There are stents seen in the renal arteries which remain patent. No evidence of occl usion or significant stenosis. Aorta: Treatment of the infrarenal abdominal aortic aneurysm is via an endovascular stent which exte nds into the iliac arteries bilaterally. The infrarenal abdominal aortic aneurysm measures 5.4 cm in diameter. The stent is patent. There is an endoleak at the level of the aortic bifurcation. Pelvis: Iliac Arteries: Extensive atherosclerosis. Common Femoral Arteries: There is atherosclerotic plaque in the right common femoral artery with cade roximately 50 percent stenosis. Moderate to severe stenosis of the right SFA is noted. Mild atheros clerosis is seen in the right popliteal artery. There is atherosclerotic plaque of the left common f emoral artery with moderate to severe stenosis. There is moderate to severe stenosis of the left SFA and moderate stenosis of the proximal left popliteal artery. No occlusion is identified. Soft Tissues:There is a hematoma in the right hemipelvis beginning at the aortic bifurcation and invo lving the iliopsoas muscles to the level of the inguinal canal. The hematoma measures 10.4 x 5.5 x 9 .7 cm. It surrounds the right common, external and internal iliac arteries. Liver: Normal density. No measurable mass. Gallbladder and biliary tract: Cholelithiasis. No biliary ductal dilatation. Pancreas: Normal density, no abnormal calcifications or inflammatory process. Spleen: Normal. Kidneys: Normal size, contour and axis. There is an wedge-shaped area of decreased attenuation involv ing the anterior and inferior aspect of the left kidney. This may represent an area of infarction. Infection cannot be excluded. Please correlate clinically. There is a cyst in the lower pole of the right kidney. There is a question of an area of decreased enhancement in the superior pole of the r ight kidney which may represent an area of infarction or infection. Adrenal glands: No masses seen. Bladder: There are diverticula seen at the posterior superior aspect of the urinary bladder. There a lso appears to be diffuse thickening of the wall of the urinary bladder. This may be due to underdis tention. Infection or chronic bladder outlet obstruction changes cannot be excluded. Bowel: No obstruction or bowel wall thickening. There is a large hiatal hernia. No evidence of acute appendicitis. Peritoneal cavity: No ascites, collection or mesenteric inflammatory response. Bones: Degenerative changes are present throughout the spine. There are old compression deformities at T12 and L1 with exaggeration of the kyphosis at this level. Lymph nodes: Within normal limits. IMPRESSION: 1. There is an endoleak at the level of the aortic bifurcation. 2. There is a hematoma in the right retroperitoneal region. It surrounds the right common, external and internal iliac arteries extending into the inguinal canal. 3. Areas of decreased attenuation left kidney suspicious for infarction. 4. Diffuse atherosclerotic disease in the lower extremities causing moderate to severe stenosis. Fin dings are most marked on the left. RADIATION DOSE DELIVERED: Total DLP DATA REPOSITORY: All CT scans at this facility are submitted to the National Radiology Data Registry (NRDR) Dose Index Registry (DIR) with the [employer] (A[employer]). RADIATION OPTIMIZATION: All CT scans at this facility use at least one of these dose optimization te chniques: automated exposure control; mA and/or kV adjustment per patient size (includes targeted exa ms where dose is matched to clinical indication); or iterative reconstruction.
[2019-10-29 02:50] LABS: ALT 31 U/L (16-63); AST 26 U/L (15-37); Albumin 2.6 g/dL (3.4-5.0); Alkaline Phosphatase 144 U/L (46-116); Anion Gap 7.6 mmol/L (3-11); BUN 38 mg/dL (7-18); Bilirubin, Direct 0.19 mg/dL (0.00-0.20); Bilirubin, Total 0.6 mg/dL (0.2-1.0); CO2 27.4 mmol/L (21.0-32.0); CREATININE 1.34 mg/dL (0.70-1.30); Calcium 8.3 mg/dL (8.5-10.1); Chloride 93 mmol/L (98-107); Estimated GFR 52.25 (mL/min/1.73m2); Glucose 141 mg/dL (74-106); Lipase 161 U/L (73-393); Magnesium 2.2 mg/dL (1.8-2.4); Sodium 128 mmol/L (136-145); Total Protein 6.9 g/dL (6.4-8.2)
[2019-10-29 02:56] LABS: Troponin I 0.15 ng/Ml (<0.06)
[2019-10-29 03:10] LABS: Absolute Basophil Count 0.03 k/cumm (0.0-0.2); Absolute Eosinophil Count 0.25 k/cumm (0.0-0.7); Absolute Lymphocyte Count 0.72 k/cumm (1.2-3.4); Absolute Monocyte Count 1.03 k/cumm (0.11-0.7); Absolute Neutrophil Count 24.66 k/cumm (1.2-6.7); Platelet Count 760 x1000/uL (130-400); White Blood Cell Count 27.71 k/cumm (4.4-10.8)
[2019-10-29 03:11] LABS: Diff Comment Agrees w/ Instrument
[2019-10-29 03:12] LABS: Macrocytosis 1+
[2019-10-29] MEDS: Normal Saline Flush 10 ML SYR IVP ×2 (03:18→10:07)
[2019-10-29] MEDS: Normal Saline - Diluent 50 ML VIAL IV (03:19)
[2019-10-29] MEDS: Omnipaque 350 MG/ML 100 ML BTL IJ (03:19)
[2019-10-29 03:24] LABS: INR 1.1 (0.9-1.1); PTT Activated 26.3 sec (21.0-31.4)
[2019-10-29 03:30] LABS: Lactate 2.8 mmol/L (0.6-1.4)
[2019-10-29] MEDS: Normal Saline 1,000 ML 1000 ML IV (03:44)
--- NOTE | 2019-10-29 04:12 | DI.VRAD_ITS ---
Addendum created by Oskar Nunez MD on 10/29/2019 4:19:48 AM EDT THIS REPORT CONTAINS FINDINGS THAT MAY BE CRITICAL TO PATIENT CARE. The findings were verbally communicated via telephone conference with Kalyan Barreto at 4:19 AM EDT on 10/29/2019. The findings were acknowledged and understood. Initial report created on 10/29/2019 4:11:58 AM EDT PROCEDURE INFORMATION: Exam: CT Angiography Chest With Contrast Exam date and time: 10/29/2019 2:18 AM Age: 74 years old Clinical indication: Other: Chest/abd pain; Abdominal pain; Generalized; Prior surgery; Surgery date: Post-operative (0-2 days); Surgery type: Aaa x3 days ago; Patient HX: Recent aaa repair, nausea/vomiting and pain. Pain in left leg, mid to lower femur TECHNIQUE: Imaging protocol: Computed tomographic angiography of the chest with intravenous contrast. 3D rendering: MIP and/or 3D reconstructed images were created by the technologist. Radiation optimization: All CT scans at this facility use at least one of these dose optimization techniques: automated exposure control; mA and/or kV adjustment per patient size (includes targeted exams where dose is matched to clinical indication); or iterative reconstruction. Contrast material: [id number]; Contrast volume: 100 ml; Contrast route: IV RAC 20G; COMPARISON: CT THORAX ABD/PEL CTA 07/12/2019 9:37 AM FINDINGS: Pulmonary arteries: There is no aneurysm of the ascending thoracic aorta, which measures 3.4 cm at the level of the pulmonary artery. The descending thoracic aorta measures 2.8 cm at the same level. There are scattered atherosclerotic plaques throughout the thoracic aorta and its branches. There is a bovine arch, anatomic variant. Aorta: At the level of the distal thoracic aorta, there is a metallic aortic endoprosthesis containing stents. At this level the aorta measures 3.1 cm in transverse dimension. There is tortuosity and the stents extend into the proximal abdominal aorta, which measures 4.1 cm. These measurements show no significant change when compared to the prior preoperative examination of 07/12/2019. The there is no periaortic fluid collection to suggest leakage. There is a small amount of fluid in the pericardial reflection at the level of the proximal aortic arch, not significantly changed from the above referenced prior examination. Lungs: Evaluation of the lung parenchyma is limited by motion artifact. There are bibasilar atelectatic changes and there is mild coarsening of the interstitial findings, unchanged from the prior examination. Pleural space: Unremarkable. No pneumothorax. No pleural effusion. Heart: There is coronary artery atherosclerotic calcification. No pericardial effusion is identified. Mediastinum: There is a small hiatal hernia. Lymph nodes: There are no enlarged mediastinal or hilar lymph nodes. Bones/joints: Osseous structures show degenerative changes of the left glenohumeral joint. The spine demonstrates mild degenerative changes at multiple levels. There are compression fractures of T7 and T12, unchanged. The compression fracture of T12 is severe with mild gibbus deformity. Soft tissues: Unremarkable. IMPRESSION: 1. Extensive atherosclerotic changes of the thoracic aorta without evidence of aneurysm. The dimensions of the abdominal aorta remains stable when compared to the above reference prior examination. There is no evidence of leakage. 2. Status post endovascular repair of of an abdominal aortic aneurysm. The aortic endoprosthesis starts in the distal descending thoracic aorta. 3. Mild diffuse coarsening of the interstitial markings. 4. Subacute or chronic compression fractures of T7 and T12. PROCEDURE INFORMATION: Exam: CT Angiography Abdomen and Pelvis With Contrast Exam date and time: 10/29/2019 2:18 AM Age: 74 years old Clinical indication: Other: Chest/abd pain; Abdominal pain; Generalized; Prior surgery; Surgery date: Post-operative (0-2 days); Surgery type: Aaa x3 days ago; Patient HX: Recent aaa repair, nausea/vomiting and pain. Pain in left leg, mid to lower femur TECHNIQUE: Imaging protocol: Computed tomographic angiography of the abdomen and pelvis with intravenous contrast material. 3D rendering: MIP and/or 3D reconstructed images were created by the technologist. Radiation optimization: All CT scans at this facility use at least one of these dose optimization techniques: automated exposure control; mA and/or kV adjustment per patient size (includes targeted exams where dose is matched to clinical indication); or iterative reconstruction. Contrast material: [id number]; Contrast volume: 100 ml; Contrast route: IV RAC 20G; COMPARISON: CT THORAX ABD/PEL CTA 07/12/2019 9:37 AM FINDINGS: Tubes, catheters and devices: The stomach shows a a gastrostomy tube in expected position. Aorta: There has been endovascular repair of the suprarenal abdominal aortic aneurysm which measures 4.1 cm in transverse dimension, not significantly changed when compared to the CT a of 07/12/2019. There is a bifurcated cross lymph aortic endoprosthesis for treatment of an infrarenal abdominal aortic aneurysm that now has a maximum diameter of 5.4 cm, minimally decreased in size when compared to the above reference prior examination. There is stent extensions to both external iliac arteries, that remain patent. The internal iliac are arteries are severely disease. Celiac trunk and mesenteric arteries: There are metallic stents in the celiac trunk and bilateral renal arteries that remain patent. Renal arteries: No occlusion or significant stenosis. Right iliac arteries: No occlusion or significant stenosis. Right femoral/popliteal arteries: There is atherosclerotic plaque of the right common femoral artery that shows approximately 50% stenosis. There is diffuse luminal irregularity and atherosclerotic calcification of the right SFA with moderate to severe stenosis at the adductor canal. There is mild disease of the right popliteal artery and three-vessel proximal trifurcation. Left iliac arteries: See Aorta finding. Left femoral/popliteal arteries: There is atherosclerotic plaquing of the left common femoral artery with moderate to severe stenosis. The left SFA shows diffuse plaques with the moderate to severe stenosis in its mid segment as well as at the adductor canal. There is a tight stenosis in the proximal left popliteal artery near the adductor canal. There is a three-vessel proximal left trifurcation. No thrombus or acute occlusion is identified. Liver: No mass. Gallbladder and bile ducts: There is cholelithiasis without evidence of acute cholecystitis. Pancreas: Unremarkable. No mass. No ductal dilation. Spleen: Unremarkable. No splenomegaly. Adrenals: Unremarkable. No mass. Kidneys and ureters: There are hypodensities in the right renal cortex suggesting areas of infarction. There is a simple appearing cyst in the lower pole of the right kidney. No line multiple cortical hypodensities in the left kidney are consistent with areas of infarction. Stomach and bowel: There is no evidence of small bowel or colonic obstruction. Appendix: No evidence of appendicitis. Intraperitoneal space: Unremarkable. No free air. No significant fluid collection. Lymph nodes: Unremarkable. No enlarged lymph nodes. Bladder: The bladder shows normal contour. Its wall appears thickened that may be secondary to is relatively decompressed state, trabeculation from bladder outlet obstruction or infection. Reproductive: The prostate measures 4.8 cm in transverse dimension. Bones/joints: No acute fracture. No dislocation. Soft tissues: There is hematoma in the right hemipelvis starting at the aortic bifurcation and extending into the psoas and iliopsoas muscles to the level of the inguinal canal. It surrounds the right common, external and internal iliac arteries. The hematoma measures 10.4 by 5.5 x 9.7 cm. There is a small nonobstructing left inguinal hernia. IMPRESSION: 1. Status post endovascular repair of suprarenal and infrarenal segments of abdominal aortic aneurysm. The diameter of the abdominal aorta remains stable. 2. There is an endoleak at the level of the aortic bifurcation likely supplied by the SHY. 3. There is a hematoma surrounding the right common, external and internal iliac arteries extending to the inguinal canal as described. 4. There are patent celiac trunk and bilateral renal artery stents. 5. There is diffuse atherosclerotic calcification with areas of stenosis in the outflow common femoral, superficial femoral and popliteal arteries bilaterally. Stenosis is most severe on the left. 6. 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 The 7. Other incidental findings as above. Dictated and Authenticated by: Oskar Nunez MD. Ordering:ROSAMARIA Biggs MD
[2019-10-29] MEDS: HYDROmorphone 2 MG/ML VIAL 1 MG IVP (05:03)
[2019-10-29] MEDS: PIPERACILLIN/TAZO 4.5 GM in Normal Saline 100 ML IVPB (05:05)
[2019-10-29] MEDS: Aspirin 81 MG CHEW 324 MG CH (05:06)
[2019-10-29 05:31] LABS: Bilirubin Negative (Negative); Blood Small (Negative); Clarity Clear (Clear); Glucose Negative (Negative); Ketones Negative (Negative); Leukocyte Esterase Small (Negative); Nitrite Negative (Negative); Urobilinogen 0.2 EU/dL (Up TO 0.2); pH 5.5 (5-8)
[2019-10-29 05:35] LABS: Epithelial Cells Few HPF (Negative); Other Cells Negative (Negative); RBC 0-2 HPF (0-2); WBC 20-50 HPF (0-5)
[2019-10-29 05:36] LABS: Bacteria Negative HPF (Negative); C & S Indicated? Yes; Casts Negative LPF (Negative); Crystals Negative HPF (Negative); Mucus Trace (Negative)
--- NOTE | 2019-10-29 05:37 | HPE_ITS ---
Date of service: 10/29/19 Time of Service: 05:37 Assessment and Plan Assessment and plan (1) Nausea and vomiting: Status: Acute Assessment and plan: The presentation is non-specific, but the most signif icant objective findings are leukocytosis and pyuria and I think UTI would be most reasonable diagnosis here. Certainly at risk for pneumonia though no focal consolidation (interstitial prominence of unknown significance at present, could represent atypical pneumonia). Slight increase troponin noted, w/o CP or EKG changes, probable demand ischemia or tail of possible event at [facility]. Doubt ACS but still to be considered. Hemodynamics acceptable at present but BP soft and will need to watch closely for kerry septic picture. Will hydrate aggressively and continue antibiotics. Remains Full Code. Note that COVID swab was obtained per trach History of Present Illness History of Present Illness Chief Complaint: nausea Narrative: 74 male s/p AAA repair [facility], D/c'ed 2 d RN POOL. There hje had persiswternt leukocytosis, tx'ed Cefipime/Vanco. Tracheal cxx -, aspirate of RLQ fluid collection -, ID advised stop Abx. Home on usual nebulized Vanco per tyrac. Here now with one dasy N/V. Reports some cough, no CP, no abd pain, some left thigh pain, but this is apparently chronic. in ER findings of note for white count 28K, pyuria and CT showing increased lung interstitial markings and hematoma RLQ/groin (apparently corresponding to collection noted at [facility]). Given Vanco and Zosyn and admitted . Note that ER consulted with [facility] vascular who did not feel there was any surgical issues. Note further that patient declined transfer in any case. Review of Systems All systems reviewed & are unremarkable except as noted in HPI and below COUNT INCLUDES THE [facility] Medical History Abdominal aortic aneurysm (Acute ~03/2019) Dr. Anders Smalls, vascular surgery @ [facility]; 5.5 cm pararenal and suprarenal aneurysm; not candidate for open repair but being considered for fenestrated endovascular repair Alcohol abuse (Inactive) Anxiety Blockage of feeding tube (Resolved) CAD (coronary artery disease) (Chronic) COPD (chronic obstructive pulmonary disease) Cortical cataract of right eye (Resolved) Depression History of alcoholism (Inactive) sober x 25yrs History of tobacco use (Inactive) Hyperlipemia Hypertension Hypothyroidism Impingement syndrome, shoulder, left (Inactive 10/10/16) -2017: PT sugg. 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) Nuclear sclerotic cataract of right eye (Resolved) Peripheral neuropathy (Chronic 02/21/15) Post herpetic neuralgia Posterior subcapsular age-related cataract, right eye (Resolved) Primary malignant neoplasm of oropharynx (Chronic) ; yearly fup in Feb (last ) [facility] SX: 2007 ROR: 1999 + 2007 Pulmonary nodule, right (Chronic 05/30/15) on chest CT -2016: stable Restless leg syndrome (Chronic 02/21/15) Sessile colonic polyp (Inactive) 12/22/16-SESSILE SERRATED ADENOMA Tobacco use (Inactive) Surgical History Colonoscopy - MAC (12/22/16) EGD - MAC (07/06/17) 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) Sin-mullins button placed by Dr Elia Mcdonald [facility] History of esophagogastroduodenoscopy (EGD) (Chronic ~08/10/19) Daron Casper APRN @ [facility]: hiatal hernia, GERD, Reyes's esophagitis, neuromuscular dysfunction History of laryngectomy (Inactive) History of radical laryngectomy (Inactive) History of tarsorrhaphy (Resolved) PROCEDURES RT/LEFT HEART CARD CATH COMPLETE LARYNGECTOMY Esophagoplasty Status post cardiac catheterization (Inactive) Status post cataract extraction and insertion of intraocular lens of left eye (Resolved 04/30/12) Status post cataract extraction and insertion of intraocular lens of right eye (Resolved 07/12/18) Social History Smoking/Tobacco Use Status: Former Tobacco Use Tobacco: How many years used: 30 Alcohol Intake: never Drug use: Never Substance use type: does not use Current gender identity: male Do you feel safe at home: Yes Do you feel safe in your relationship?: Yes Meds Home Medications and Allergies Home Medications Medication Instructions Recorded Confirmed Type acetaminophen 500 mg tablet 1,000 mg PO .1600, 2200 PRN tab 04/05/18 10/29/19 History lactobacillus combination no.9 4 4,000 mmu cells PO DAILY 09/15/18 10/29/19 History billion cell capsule alfuzosin 10 mg tablet,extended 10 mg PO DAILY #90 tab-cap 09/17/18 10/29/19 Rx release 24 hr 3 mLs Saline Vials 1 vial INHALATION QID #120 vial 01/06/19 09/26/19 Rx citalopram 20 mg tablet 20 mg PO DAILY #90 tab 04/04/19 10/29/19 Rx gabapentin 300 mg FEEDING TUBE DIRECTED 08/12/19 10/29/19 History ipratropium 0.5 mg-albuterol 3 mg 3 ml IN TID PRN #90 ml 08/12/19 10/29/19 Rx (2.5 mg base)/3 mL nebulization soln levothyroxine 112 mcg FEEDING TUBE DAILY@1700 08/12/19 10/29/19 History ropinirole 1 mg FEEDING TUBE DIRECTED 08/12/19 10/29/19 History rosuvastatin 40 mg FEEDING TUBE HS 08/12/19 10/29/19 History Refresh Tears 1 drp OPHTHALMIC (EYE) PRN PRN 08/14/19 10/29/19 History neomycin-bacitracn Zn-polymyx 3.5 1 applic TP BID PRN #28.3 gm 09/16/19 09/26/19 Rx mg-400 unit-5,000 unit/gram top oint clonazepam 0.5 mg tablet 0.5 mg PO BID PRN #10 tab 09/26/19 09/26/19 Rx loperamide 2 mg tablet 2 mg PO QID PRN #30 tab 09/26/19 10/29/19 Rx omeprazole 20 mg capsule,delayed 20 mg FEEDING TUBE BID #90 cap 10/05/19 10/29/19 Rx release Bifidobacterium infantis 4 mg FEEDING TUBE DAILY 10/29/19 10/29/19 History aspirin 81 mg FEEDING TUBE DAILY 10/29/19 10/29/19 History ferrous sulfate 300 mg FEEDING TUBE DAILY 10/29/19 10/29/19 History losartan 50 mg FEEDING TUBE .Q5PM 10/29/19 10/29/19 History melatonin 6 mg PO HS 10/29/19 10/29/19 History oxycodone 5 mg FEEDING TUBE Q4H PRN PRN 05/16/20 05/16/20 History vancomycin HCl in water 250 mg BID 10/29/19 10/29/19 History Allergies Allergy/AdvReac Type Severity Reaction Status Date / Time pollen extracts Allergy Mild Verified 10/29/19 02:19 Tetracyclines Allergy Unknown SKIN RASH Verified 10/29/19 02:19 Exam Narrative Exam Narrative: 95/45 (108/sys during my visit), 80, 15, 36.3, 99%. HEENT unremarkable; neck supple, patent trach, no D/C noted; lungs clear; heart RRR, distant; abdomen GT in place, soft and NT, RLQ wound clean and dry with 15-20 cm surrounding swelling c/w known hematoma; extremities w/o edema, no tenderness redness; skin no rash, 6 cm healing superficial ulcer left upper chest Results Labs Result diagrams: 10/29/19 02:20 10/29/19 02:20 Labs: Laboratory Results - last 24 hr 10/29/19 10/29/19 10/29/19 02:20 02:20 02:20 WBC 27.71 H* RBC 3.19 L Hgb 10.1 L Hct 31.5 L MCV 98.7 H MCH 31.7 MCHC 32.1 RDW 13.9 Plt Count 760 H* MPV 9.0 Immature Gran % 3.7 Neutrophils % 89.0 Lymphocytes % 2.6 Monocytes % 3.7 Eosinophils % 0.9 Basophils % 0.1 Absolute Neutrophils 24.66 H Absolute Lymphocytes 0.72 L Absolute Monocytes 1.03 H Absolute Eosinophils 0.25 Absolute Basophils 0.03 Differential Comment Agrees w/ instrument RBC Morphology See below Macrocytosis 1+ PT 11.0 INR 1.1 APTT 26.3 VBG pH VBG pCO2 VBG pO2 VBG HCO3 VBG Total CO2 VBG O2 Saturation VBG Base Excess Sodium 128 L Potassium 4.0 Chloride 93 L Carbon Dioxide 27.4 Anion Gap 7.6 BUN 38 H Creatinine 1.34 H Estimated GFR/1.73 m2 52.25 Glucose 141 H Lactate Calcium 8.3 L Magnesium 2.2 Total Bilirubin 0.6 Conjugated Bilirubin 0.19 AST 26 ALT 31 Alkaline Phosphatase 144 H Troponin I Total Protein 6.9 Albumin 2.6 L Lipase 161 Urine Color Urine Clarity Urine pH Ur Specific [place] Urine Protein Urine Ketones Urine Blood Urine Nitrite Urine Bilirubin Urine Urobilinogen Ur Leukocyte Esterase Urine RBC Urine WBC Ur Epithelial Cells Urine Crystals Urine Bacteria Urine Casts Urine Mucus Urine Other Ur Culture Indicated? Urine Glucose Patient ABO/Rh Antibody Screen 10/29/19 10/29/19 10/29/19 02:20 02:20 02:20 WBC RBC Hgb Hct MCV MCH MCHC RDW Plt Count MPV Immature Gran % Neutrophils % Lymphocytes % Monocytes % Eosinophils % Basophils % Absolute Neutrophils Absolute Lymphocytes Absolute Monocytes Absolute Eosinophils Absolute Basophils Differential Comment RBC Morphology Macrocytosis PT INR APTT VBG pH 7.33 L VBG pCO2 51 H VBG pO2 30 VBG HCO3 27 VBG Total CO2 26 VBG O2 Saturation 49 L VBG Base Excess 0.9 Sodium Potassium Chloride Carbon Dioxide Anion Gap BUN Creatinine Estimated GFR/1.73 m2 Glucose Lactate 2.8 H* Calcium Magnesium Total Bilirubin Conjugated Bilirubin AST ALT Alkaline Phosphatase Troponin I 0.15 H* Total Protein Albumin Lipase Urine Color Urine Clarity Urine pH Ur Specific [place] Urine Protein Urine Ketones Urine Blood Urine Nitrite Urine Bilirubin Urine Urobilinogen Ur Leukocyte Esterase Urine RBC Urine WBC Ur Epithelial Cells Urine Crystals Urine Bacteria Urine Casts Urine Mucus Urine Other Ur Culture Indicated? Urine Glucose Patient ABO/Rh Antibody Screen 10/29/19 10/29/19 02:28 05:00 WBC RBC Hgb Hct MCV MCH MCHC RDW Plt Count MPV Immature Gran % Neutrophils % Lymphocytes % Monocytes % Eosinophils % Basophils % Absolute Neutrophils Absolute Lymphocytes Absolute Monocytes Absolute Eosinophils Absolute Basophils Differential Comment RBC Morphology Macrocytosis PT INR APTT VBG pH VBG pCO2 VBG pO2 VBG HCO3 VBG Total CO2 VBG O2 Saturation VBG Base Excess Sodium Potassium Chloride Carbon Dioxide Anion Gap BUN Creatinine Estimated GFR/1.73 m2 Glucose Lactate Calcium Magnesium Total Bilirubin Conjugated Bilirubin AST ALT Alkaline Phosphatase Troponin I Total Protein Albumin Lipase Urine Color Yellow Urine Clarity Clear Urine pH 5.5 Ur Specific [place] 1.010 Urine Protein 30 H Urine Ketones Negative Urine Blood Small H Urine Nitrite Negative Urine Bilirubin Negative Urine Urobilinogen 0.2 Ur Leukocyte Esterase Small H Urine RBC 0-2 Urine WBC 20-50 H Ur Epithelial Cells Few Urine Crystals Negative Urine Bacteria Negative Urine Casts Negative Urine Mucus Trace Urine Other Negative Ur Culture Indicated? Yes Urine Glucose Negative Patient ABO/Rh B Positive Antibody Screen Negative Last Vital Signs Temp 36.3 C L 10/29/19 02:11 Pulse 80 10/29/19 03:43 Resp 15 10/29/19 03:43 BP 95/45 L 10/29/19 03:43 Pulse Ox 99 10/29/19 03:43 COVID-19 Screening In the past 14 days, have you traveled outside of [place] or [place]?: NO Had IN PERSON contact w/suspected or confirmed C-19 person: Yes
[2019-10-29] MEDS: VANCOMYCIN 1,000 MG in Normal Saline 250 ML 166.6666 MG IVPB (05:50)
[2019-10-29 07:46] LABS: Troponin I 0.37 ng/Ml (<0.06)
[2019-10-29] MEDS: oxyCODONE 5 MG/5 ML CUP NG (10:06)
[2019-10-29] MEDS: rOPINIRole 1 MG TAB NG (10:07)
[2019-10-29] MEDS: Omeprazole 20 MG CAPCR NG (10:07)
[2019-10-29] MEDS: PIPERACILLIN/TAZO 3.375 GM in Normal Saline 50 ML IVPB (10:08)
[2019-10-29] MEDS: Normal Saline 1,000 ML 125 ML IV (10:14)
--- NOTE | 2019-10-29 10:50 | W.PM.DS.N ---
Date of service: 10/29/19 Time of Service: 10:50 DS: Diagnosis Discharge Diagnosis (1) Nausea and vomiting: Status: Acute Asessment and Plan: Nausea and vomiting has subsided with antiemetics and IV fluids (2) Elevated troponin: Status: Acute Asessment and Plan: Mild bump in troponins, 0.15 and 0.37. Third troponin is pending. No significant EKG changes. No chest pain or shortness of breath. (3) Leukocytosis: Status: Acute Asessment and Plan: White blood count 27.71 thousand. He is not had a fever. Treated empirically with vancomycin and Zosyn. (4) Abdominal aortic aneurysm: Status: Acute Asessment and Plan: Status post endovascular repair approximately 1 week ago. Complicated by an endovascular leak, drained by interventional radiology x1. Now with recurrence of hematoma in the right lower quadrant. Returning to [facility] vascular surgery for further evaluation. (5) Hematoma following procedure: Status: Acute Asessment and Plan: Presumed endovascular leak right iliac artery at the level of the aortic bifurcation. Discharge Plan Disposition Patient Disposition: [facility] Condition: Stable Discharge Details Chief Complaint: Abd Prob Clinical Impression: Leukocytosis, Nausea and vomiting, Elevated troponin Reason For Visit: NAUSEA/VOMIT, LEUKOCYTOSIS, ELEVATED TROPONIN Admit Date/Time: 10/29/19 05:10 Admit Provider: Jhonny Aguirre Attending Provider: Jhonny Aguirre Primary Care Provider: Jackie Prasad ED Provider: Kalyan Barreto Hospital Course Hospital Course: 73-year-old male admitted on 10/29/2019 because of acute nausea and vomiting. Evaluation revealed an enlarging right lower quadrant hematoma. A CT scan of that region showed the hematoma and when compared to a prior scan showed some mild enlargement. The patient had just been discharged from [facility] vascular [place] service on 10/27/2019. Upon review of the scan his vascular surgeon, Dr. Ibanez, commended transfer for evaluation at [facility]. Patient's troponins were mildly elevated, 0.15, 0.37. He did not display other signs of acute coronary syndrome. Patient's blood pressure was somewhat low on admission but responded to IV fluids. His losartan was held. His sodium was low at 128. He was on normal saline. He was kept n.p.o. while here. His QTC was prolonged at 512. His citalopram, Zofran, alfuzosin, loperamide were held. He is being transferred back to [facility] vascular surgery service for further evaluation of endovascular leak in the right lower quadrant. Home Meds and New Rx's Prescriptions: Continued alfuzosin [Uroxatral] 10 mg tablet extended release 24 hr 10 mg PO DAILY Qty: 90 RF: 3 Adult 50 Plus Probiotic 4 billion cell capsule 4,000 mmu cells PO DAILY RF: 0 clonazepam 0.5 mg tablet 0.5 mg PO BID PRN (Reason: anxiety) Qty: 10 RF: 0 loperamide 2 mg tablet 2 mg PO QID PRN (Reason: loose stool) Qty: 30 RF: 1 omeprazole 20 mg capsule,delayed release(DR/EC) 20 mg feeding tube BID Qty: 90 RF: 4 acetaminophen [Tylenol Extra Strength] 500 mg tablet 1,000 mg PO .1600, 2200 PRNRF: 0 3 mLs Saline Vials 1 vial inhalation QID Qty: 120 RF: 4 citalopram 20 mg tablet 20 mg PO DAILY Qty: 90 RF: 4 ipratropium-albuterol 0.5 mg-3 mg(2.5 mg base)/3 mL solution for nebulization 3 ml IN TID PRN (Reason: shortness of breath or wheezing) Qty: 90 RF: 4 Neosporin ([id number]) 3.5mg-400 unit- 5,000 unit/gram ointment 1 applic TP BID PRN (Reason: skin irritation) Qty: 28.3 RF: 2 ropinirole 1 mg Tablet 1 mg feeding tube DIRECTED RF: 0 gabapentin 300 mg Capsule 300 mg feeding tube DIRECTED RF: 0 levothyroxine 112 mcg Tablet 112 mcg feeding tube DAILY@1700 RF: 0 rosuvastatin 40 mg Tablet 40 mg feeding tube HS RF: 0 Refresh Tears 0.5 % Drops 1 drp ophthalmic (eye) PRN PRNRF: 0 losartan 50 mg tablet 50 mg feeding tube .Q5PM RF: 0 melatonin 3 MG tablet 6 mg PO HS RF: 0 ferrous sulfate 220 mg (44 mg iron)/5 mL solution 300 mg Feeding Tube DAILY RF: 0 oxycodone 5 mg/5 mL solution 5 mg feeding tube Q4H PRN PRNRF: 0 aspirin 81 mg Tablet,Chewable 81 mg feeding tube DAILY RF: 0 Bifidobacterium infantis 4 mg Capsule 4 mg feeding tube DAILY RF: 0 vancomycin HCl in water 100 mg/mL Solution 250 mg BID RF: 0 Discharge Instructions Activity:: Activity as Tolerated Equipment/Supplies:: No Equipment Needed Diet:: NPO Discharge Orders Discharge Orders: Discharge Order (Routine); Ordered 10/29/19 Ordered By: Kalyan Polanco DS: Summary Status at Discharge Functional status at discharge: bed bound Overall status at discharge: patient is not back to baseline Mental Status: mental status grossly normal Speech and Movement: speech and movement normal Mood: congruent mood Affect: normal affect Time Spent with Patient providing and/or coordinating discharge services: Greater than 30 minutes Exam Narrative Exam Narrative: At the time of discharge his blood pressure 105/45. He is mentating well. He is able to communicate with his voicebox device in a reasonable manner. He is complaining of some mild abdominal discomfort in that right lower quadrant. He has no respiratory distress. His lung sounds are generally clear. Heart sounds are regular with a 2/6 systolic murmur. His abdomen is overall soft and nontender the O. Bleich incision in the right lower quadrant is clean and dry with graeme in place. There is no overlying erythema or discharge. He has a mild swelling in that right lower quadrant with some evidence of bruising. It is slightly more full than the left. The distal extremities are well perfused and without any evidence of edema. There is no ischemic signs or symptoms. Psych Mental Status: mental status grossly normal Speech and Movement: speech and movement normal Mood: congruent mood Affect: normal affect DS: Data Vitals/I&O Vitals and I&O: Vital Signs Temperature 36.5 C 10/29/19 08:36 Temperature Source Temporal Artery Scan 10/29/19 08:36 Pulse 78 10/29/19 10:37 Pulse 82 10/29/19 10:37 Respiratory Rate 22 10/29/19 10:37 Respiratory Effort 10/29/19 08:36 Respiratory Depth Normal 10/29/19 08:36 Respiratory Pattern Normal 10/29/19 08:36 Blood Pressure 97/53 L 10/29/19 10:37 Blood Pressure Mean 64 10/29/19 10:37 Blood Pressure Position Supine 10/29/19 08:36 Pulse Oximetry 98 10/29/19 10:37 Oxygen Delivery Method Trach Collar 10/29/19 08:36 Oxygen Flow Rate 40 10/29/19 09:38 Fraction of Inspired Oxygen (FIO2) 39 10/29/19 09:38 Pain Level 9 10/29/19 10:06 Comment 10/29/19 02:11 Intake & Output 10/28/19 10/28/19 10/29/19 11:59 23:59 11:59 Intake Total 1350 / 1350 Output Total 480 / 480 Balance 870 / 870 Weight 72.9 kg Intake: IV 1350 / 1350 Oral 0 / 0 Output: Urine 480 / 480 Other: Urine Color Yellow Urine Appearance Clear Urine Odor Normal Voiding Methods Urinal Data Completed and Pending Labs on day of discharge: Labs from last 24 hours 10/29/19 10/29/19 10/29/19 10:07 09:07 05:16 WBC RBC Hgb Hct MCV MCH MCHC RDW Plt Count MPV Immature Gran % Neutrophils % Lymphocytes % Monocytes % Eosinophils % Basophils % Absolute Neutrophils Absolute Lymphocytes Absolute Monocytes Absolute Eosinophils Absolute Basophils Differential Comment RBC Morphology Macrocytosis PT INR APTT VBG pH VBG pCO2 VBG pO2 VBG HCO3 VBG Total CO2 VBG O2 Saturation VBG Base Excess Sodium Potassium Chloride Carbon Dioxide Anion Gap BUN Creatinine Estimated GFR/1.73 m2 Glucose Lactate Calcium Magnesium Total Bilirubin Conjugated Bilirubin AST ALT Alkaline Phosphatase Troponin I Pending Cancelled Total Protein Albumin Lipase Urine Color Urine Clarity Urine pH Ur Specific [place] Urine Protein Urine Ketones Urine Blood Urine Nitrite Urine Bilirubin Urine Urobilinogen Ur Leukocyte Esterase Urine RBC Urine WBC Ur Epithelial Cells Urine Crystals Urine Bacteria Urine Casts Urine Mucus Urine Other Ur Culture Indicated? Urine Glucose COVID-19 PCR Pending Nasopharyn COVID-19 PCR Pending Ref Test Perform Site Pending Patient ABO/Rh Antibody Screen 10/29/19 10/29/19 10/29/19 05:12 05:00 02:28 WBC RBC Hgb Hct MCV MCH MCHC RDW Plt Count MPV Immature Gran % Neutrophils % Lymphocytes % Monocytes % Eosinophils % Basophils % Absolute Neutrophils Absolute Lymphocytes Absolute Monocytes Absolute Eosinophils Absolute Basophils Differential Comment RBC Morphology Macrocytosis PT INR APTT VBG pH VBG pCO2 VBG pO2 VBG HCO3 VBG Total CO2 VBG O2 Saturation VBG Base Excess Sodium Potassium Chloride Carbon Dioxide Anion Gap BUN Creatinine Estimated GFR/1.73 m2 Glucose Lactate Calcium Magnesium Total Bilirubin Conjugated Bilirubin AST ALT Alkaline Phosphatase Troponin I Total Protein Albumin Lipase Urine Color Yellow Urine Clarity Clear Urine pH 5.5 Ur Specific [place] 1.010 Urine Protein 30 H Urine Ketones Negative Urine Blood Small H Urine Nitrite Negative Urine Bilirubin Negative Urine Urobilinogen 0.2 Ur Leukocyte Esterase Small H Urine RBC 0-2 Urine WBC 20-50 H Ur Epithelial Cells Few Urine Crystals Negative Urine Bacteria Negative Urine Casts Negative Urine Mucus Trace Urine Other Negative Ur Culture Indicated? Yes Urine Glucose Negative COVID-19 PCR Pending Nasopharyn COVID-19 PCR Pending Ref Test Perform Site Pending Patient ABO/Rh B Positive Antibody Screen Negative 10/29/19 10/29/19 10/29/19 02:20 02:20 02:20 WBC RBC Hgb Hct MCV MCH MCHC RDW Plt Count MPV Immature Gran % Neutrophils % Lymphocytes % Monocytes % Eosinophils % Basophils % Absolute Neutrophils Absolute Lymphocytes Absolute Monocytes Absolute Eosinophils Absolute Basophils Differential Comment RBC Morphology Macrocytosis PT INR APTT VBG pH VBG pCO2 VBG pO2 VBG HCO3 VBG Total CO2 VBG O2 Saturation VBG Base Excess Sodium Potassium Chloride Carbon Dioxide Anion Gap BUN Creatinine Estimated GFR/1.73 m2 Glucose Lactate 2.8 H* Calcium Magnesium Total Bilirubin Conjugated Bilirubin AST ALT Alkaline Phosphatase Troponin I 0.37 H* 0.15 H* Total Protein Albumin Lipase Urine Color Urine Clarity Urine pH Ur Specific [place] Urine Protein Urine Ketones Urine Blood Urine Nitrite Urine Bilirubin Urine Urobilinogen Ur Leukocyte Esterase Urine RBC Urine WBC Ur Epithelial Cells Urine Crystals Urine Bacteria Urine Casts Urine Mucus Urine Other Ur Culture Indicated? Urine Glucose COVID-19 PCR Nasopharyn COVID-19 PCR Ref Test Perform Site Patient ABO/Rh Antibody Screen 10/29/19 10/29/19 10/29/19 02:20 02:20 02:20 WBC 27.71 H* RBC 3.19 L Hgb 10.1 L Hct 31.5 L MCV 98.7 H MCH 31.7 MCHC 32.1 RDW 13.9 Plt Count 760 H* MPV 9.0 Immature Gran % 3.7 Neutrophils % 89.0 Lymphocytes % 2.6 Monocytes % 3.7 Eosinophils % 0.9 Basophils % 0.1 Absolute Neutrophils 24.66 H Absolute Lymphocytes 0.72 L Absolute Monocytes 1.03 H Absolute Eosinophils 0.25 Absolute Basophils 0.03 Differential Comment Agrees w/ instrument RBC Morphology See below Macrocytosis 1+ PT 11.0 INR 1.1 APTT 26.3 VBG pH 7.33 L VBG pCO2 51 H VBG pO2 30 VBG HCO3 27 VBG Total CO2 26 VBG O2 Saturation 49 L VBG Base Excess 0.9 Sodium Potassium Chloride Carbon Dioxide Anion Gap BUN Creatinine Estimated GFR/1.73 m2 Glucose Lactate Calcium Magnesium Total Bilirubin Conjugated Bilirubin AST ALT Alkaline Phosphatase Troponin I Total Protein Albumin Lipase Urine Color Urine Clarity Urine pH Ur Specific [place] Urine Protein Urine Ketones Urine Blood Urine Nitrite Urine Bilirubin Urine Urobilinogen Ur Leukocyte Esterase Urine RBC Urine WBC Ur Epithelial Cells Urine Crystals Urine Bacteria Urine Casts Urine Mucus Urine Other Ur Culture Indicated? Urine Glucose COVID-19 PCR Nasopharyn COVID-19 PCR Ref Test Perform Site Patient ABO/Rh Antibody Screen 10/29/19 02:20 WBC RBC Hgb Hct MCV MCH MCHC RDW Plt Count MPV Immature Gran % Neutrophils % Lymphocytes % Monocytes % Eosinophils % Basophils % Absolute Neutrophils Absolute Lymphocytes Absolute Monocytes Absolute Eosinophils Absolute Basophils Differential Comment RBC Morphology Macrocytosis PT INR APTT VBG pH VBG pCO2 VBG pO2 VBG HCO3 VBG Total CO2 VBG O2 Saturation VBG Base Excess Sodium 128 L Potassium 4.0 Chloride 93 L Carbon Dioxide 27.4 Anion Gap 7.6 BUN 38 H Creatinine 1.34 H Estimated GFR/1.73 m2 52.25 Glucose 141 H Lactate Calcium 8.3 L Magnesium 2.2 Total Bilirubin 0.6 Conjugated Bilirubin 0.19 AST 26 ALT 31 Alkaline Phosphatase 144 H Troponin I Total Protein 6.9 Albumin 2.6 L Lipase 161 Urine Color Urine Clarity Urine pH Ur Specific [place] Urine Protein Urine Ketones Urine Blood Urine Nitrite Urine Bilirubin Urine Urobilinogen Ur Leukocyte Esterase Urine RBC Urine WBC Ur Epithelial Cells Urine Crystals Urine Bacteria Urine Casts Urine Mucus Urine Other Ur Culture Indicated? Urine Glucose COVID-19 PCR Nasopharyn COVID-19 PCR Ref Test Perform Site Patient ABO/Rh Antibody Screen 10/29/19 03:35 Blood Blood Culture - Pending 10/29/19 03:35 Blood Blood Culture - Pending Preliminary micro results at discharge 10/29/19 05:00 Urine Culture - Preliminary Urine - Reflex from Ua 10/29/19 03:35 Blood Culture - Pending Blood 10/29/19 03:35 Blood Culture - Pending Blood [facility] Medical History (Updated 10/29/19 @ 10:53 by Kalyan Polanco MD) Abdominal aortic aneurysm (Acute ~03/2019) Dr. 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) Nuclear sclerotic cataract of right eye (Resolved) Peripheral neuropathy (Chronic 02/21/15) Post herpetic neuralgia Posterior subcapsular age-related cataract, right eye (Resolved) Primary malignant neoplasm of oropharynx (Chronic) ; yearly fup in Feb (last ) [facility] SX: 2007 ROR: 2000 + 2007 Pulmonary nodule, right (Chronic 05/30/15) on chest CT -2016: stable Restless leg syndrome (Chronic 02/21/15) Sessile colonic polyp (Inactive) 12/22/16-SESSILE SERRATED ADENOMA Tobacco use (Inactive) Surgical History (Updated 10/29/19 @ 10:57 by Kalyan Polanco MD) Colonoscopy - MAC (12/22/16) EGD - MAC (07/06/17) 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) Sin-mullins button placed by Dr Elia Mcdonald, [facility] History of esophagogastroduodenoscopy (EGD) (Chronic ~08/10/19) Daron Casper APRN @ [facility]: hiatal hernia, GERD, Reyes's esophagitis, neuromuscular dysfunction History of laryngectomy (Inactive) History of radical laryngectomy (Inactive) History of tarsorrhaphy (Resolved) PROCEDURES RT/LEFT HEART CARD CATH COMPLETE LARYNGECTOMY Esophagoplasty S/P AAA (abdominal aortic aneurysm) repair (Acute) Status post cardiac catheterization (Inactive) Status post cataract extraction and insertion of intraocular lens of left eye (Resolved 04/30/12) Status post cataract extraction and insertion of intraocular lens of right eye (Resolved 07/12/18) Social History Smoking/Tobacco Use Status: Former Tobacco Use Tobacco: How many years used: 30 Alcohol Intake: never Drug use: Never Substance use type: does not use Current gender identity: male Do you feel safe at home: Yes Do you feel safe in your relationship?: Yes
[2019-10-29 11:10] LABS: Troponin I 0.41 ng/Ml (<0.06)
--- NOTE | 2019-10-29 12:03 | PDOC.CMIN ---
- If Service Date Differs Date of service: 10/29/19 Time of Service: 09:30 Care Management Initial Assess REASON FOR HOSPITALIZATION:: Nausea, vomiting, leukocytosis, and elevated troponin. PAST MEDICAL HISTORY/PAST SURGICAL HISTORY:: Medical History: Abdominal aortic aneurysm (Acute ~03/2019) - [place]. 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 CAD (coronary artery disease); COPD (chronic obstructive pulmonary disease); Cortical cataract of right eye; Depression; History of alcoholism -. sober x 25yrs; History of tobacco use; Hyperlipemia; Hypertension; Hypothyroidism; Impingement syndrome, shoulder, left - : PT sugg. imaging: discuss at fup; Laryngeal cancer; Left corneal scar with opacity;. Neurotrophic cornea of left eye; Nuclear sclerotic cataract of right eye;. Peripheral neuropathy; Post herpetic neuralgia; Posterior subcapsular age-related cataract, right eye; Primary malignant neoplasm of oropharynx;. ; [place] Feb (last [place] [facility] [place] - ROR: 1999 + 2007; Pulmonary nodule, right - on chest CT : stable; Restless leg syndrome; Sessile colonic polyp - 12/22/16-SESSILE SERRATED ADENOMA. Surgical History: Colonoscopy - MAC; EGD - MAC; Gastrostomy status - Sin-mullins button placed by Dr Elia Mcdonald, [facility]; History of esophagogastroduodenoscopy (EGD) - Daron Casper [place] [facility] [place]: hiatal hernia, GERD, Reyes's esophagitis, neuromuscular dysfunction; History of laryngectomy; History of radical laryngectomy; History of tarsorrhaphy;. PROCEDURES: RT/LEFT HEART CARD CATH, COMPLETE LARYNGECTOMY,. Esophagoplasty; Status post cardiac catheterization; Status post cataract extraction and insertion of intraocular lens of left eye; and Status post cataract extraction and insertion of intraocular lens of right eye. PREVIOUS FUNCTIONAL STATUS/SOCIAL/FAMILY SUPPORTS:: Pineda lives in [place] with his friend, Kiara. He is now retired but worked a variety of jobs over the years. 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 Pineda is independent with his ADLs and has the support of Kiara when needed. CURRENT FUNCTIONAL STATUS:: Pineda is transferred to [facility] prior to CM meeting with him. He is status post endovascular repair at [facility] approximately one week ago and is experiencing a recurrence of hematoma in the right lower quadrant. He is returning to [facility] vascular surgery for further evaluation. ADVANCE DIRECTIVES:: Colst form on file; agent is his nephew, Harsha Nevarez. Has patient been provided with information about the portal?: Yes Did the patient sign up for the portal?: Yes (Previously signed up) CODE STATUS:: Full Code INSURANCE COVERAGE / FINANCIAL ISSUES:: Medicare, [place], and [facility]. CURRENT HOME/COMMUNITY SERVICES/EQUIPMENT:: Pineda currently is cared for by Kiara at home. She is employed as his caregiver through [employer]. PRIMARY CARE PHYSICIAN:: Jackie Prasad MD ([facility]) POTENTIAL DISCHARGE NEEDS:: Follow-up appointments with PCP. PATIENT/FAMILY EDUCATION NEEDS:: Discharge instructions, limitations, plan of care, including Ask Me Three and self-management. ANTICIPATED BARRIERS TO DISCHARGE:: None identified at this time. TRANSPORTATION:: Pineda is transferred to [facility] via ambulance. PLAN:: Pineda is transferred to [facility] for further evaluation and treatment as needed.
[2019-10-30 10:33] LABS: COVID-19 RT-PCR UVMMC Result Negative (Negative)
[2019-10-30 10:33] LABS: COVID-19 RT-PCR UVMMC Result Negative (Negative)
== END 2019-10-29 11:25 | disposition short-term general hospital (02) ==
LOC: ER 05:47 → ICU 07:36
PROVIDERS: Admitting Provider General Practice; Emergency Provider Emergency Medicine; PCP Family Medicine; Visit Provider General Practice
DX: D72.829 Elevated white blood cell count, unspecified (principal); R79.89 Other specified abnormal findings of blood chemistry; R11.2 Nausea with vomiting, unspecified; I97.638 Postprocedural hematoma of a circulatory system organ or structure following other circulatory system procedure; I97.89 Other postprocedural complications and disorders of the circulatory system, not elsewhere classified; Z11.59 Encounter for screening for other viral diseases; Z93.0 Tracheostomy status
CPT/HCPCS: 36415; 51701; 74177; 80053; 82805; 83690; 86850; 86900; 86901; 87040; 87449; 93005; 96361; 96365; 96367; 96375; 99217; 99223; 99285; U0003; 81003; 81015; 82248; 83605; 83735; 84484; 85025; 85610; 85730; 87086; 93010; 99235; G0378; J2405; J2543; J3490

== ENCOUNTER → 2019-12-02 10:35 | Outpatient (BNVA) | payer MEDICARE, MEDICAID, SELFPAY | PROVIDERS: PCP Family Medicine; Referring Provider Family Medicine; Visit Provider Surgery | DX: T85.598A Other mechanical complication of other gastrointestinal prosthetic devices, implants and grafts, initial encounter; R63.3 Feeding difficulties; J15.212 Pneumonia due to Methicillin resistant Staphylococcus aureus; J44.9 Chronic obstructive pulmonary disease, unspecified; C10.9 Malignant neoplasm of oropharynx, unspecified; G62.9 Polyneuropathy, unspecified; N40.1 Benign prostatic hyperplasia with lower urinary tract symptoms; N13.8 Other obstructive and reflux uropathy; R13.19 Other dysphagia; R63.4 Abnormal weight loss; K94.20 Gastrostomy complication, unspecified | CPT/HCPCS: 43762; 99212 ==

== ENCOUNTER 2019-12-26 01:38 | Outpatient (CLI) | payer MEDICARE, MEDICAID, SELFPAY ==
[2019-12-26 10:09] LABS: Abs Immature Grans 0.01 k/cumm (0.0-0.09); Absolute Basophil Count 0.11 k/cumm (0.0-0.2); Absolute Lymphocyte Count 0.93 k/cumm (1.2-3.4); Absolute Monocyte Count 0.74 k/cumm (0.11-0.7); Absolute Neutrophil Count 6.27 k/cumm (1.2-6.7); Basophils % 1.3; Eosinophils % 6.9; HCT 41.7 % (40.0-50.0); HGB 13.4 g/dL (13.5-17.5); Immature Grans % 0.1 %; Lymphocytes % 10.7; Mean Corp. HGB Concentration 32.1 g/dL (32.0-36.0); Mean Corpuscular Hemoglobin 31.3 pg (27.0-33.0); Mean Corpuscular Volume 97.4 fL (80-95); Mean Platelet Volume 10.1 fL (8.0-11.0); Monocytes % 8.5; Neutrophils % 72.5; Platelet Count 259 x1000/uL (130-400); RBC 4.28 m/cumm (4.50-6.00); RBC Distribution Width 13.6 % (11.8-14.1); White Blood Cell Count 8.66 k/cumm (4.4-10.8)
[2019-12-26 10:50] LABS: Anion Gap 7.2 mmol/L (3-11); BUN 17 mg/dL (7-18); CO2 29.8 mmol/L (21.0-32.0); CREATININE 0.84 mg/dL (0.70-1.30); Calcium 8.7 mg/dL (8.5-10.1); Chloride 99 mmol/L (98-107); Glucose 99 mg/dL (74-106); Potassium 4.7 mmol/L (3.5-5.1); Sodium 136 mmol/L (136-145)
[2019-12-27 10:34] LABS: Prealbumin 22 mg/dL (20-40)
== END 2019-12-26 01:58 ==
PROVIDERS: PCP Family Medicine; Visit Provider Surgery
DX: I71.4 Abdominal aortic aneurysm, without rupture (principal); Z01.818 Encounter for other preprocedural examination
CPT/HCPCS: 36415; 80048; 84134; 85025

== ENCOUNTER 2020-01-09 07:33 | Outpatient (CLI) | payer MEDICARE, MEDICAID, SELFPAY ==
[2020-01-11 03:06] LABS: COVID-19 RT-PCR Result NEGATIVE (Negative)
== END 2020-01-09 07:53 ==
PROVIDERS: PCP Family Medicine; Visit Provider Otolaryngology
DX: Z03.818 Encounter for observation for suspected exposure to other biological agents ruled out (principal)
CPT/HCPCS: 99213; U0003

== ENCOUNTER → 2020-02-08 12:51 | Outpatient (BNVA) | payer MEDICARE, MEDICAID, SELFPAY | PROVIDERS: PCP Family Medicine; Referring Provider Family Medicine; Visit Provider Surgery | DX: Z43.1 Encounter for attention to gastrostomy (principal); L53.8 Other specified erythematous conditions | CPT/HCPCS: 99212 ==

== ENCOUNTER → 2020-02-17 08:54 | Outpatient (BNVA) | payer MEDICARE, MEDICAID, SELFPAY | PROVIDERS: PCP Family Medicine; Referring Provider Family Medicine; Visit Provider Surgery | DX: R63.4 Abnormal weight loss (principal); K94.20 Gastrostomy complication, unspecified; J44.9 Chronic obstructive pulmonary disease, unspecified; Z87.891 Personal history of nicotine dependence | CPT/HCPCS: 43762; 99213 ==

== ENCOUNTER 2020-03-04 07:41 | Emergency (ER) | payer MEDICARE, MEDICAID, SELFPAY ==
[2020-03-04 07:51] VITALS: BP 125/79; PULSE 87; RESP 16; TEMP 37; O2SAT 91
--- NOTE | 2020-03-04 08:16 | W.ED.GENAD ---
Discharge Plan Disposition Patient Disposition: HOME Condition: Good Discharge Details Clinical Impression: Complication of feeding tube Primary Care Provider: Jackie Prasad ED Provider: Loly Ambriz Home Meds and New Rx's Prescriptions: Continued loperamide 2 mg tablet 2 mg PO QID PRN (Reason: loose stool) Qty: 30 RF: 1 omeprazole 20 mg capsule,delayed release(DR/EC) 20 mg feeding tube BID Qty: 90 RF: 4 nystatin 100,000 unit/gram cream 1 applic TP BID Qty: 30 RF: 0 nystatin 100,000 unit/gram powder 1 applic TP BID Qty: 60 RF: 3 acetaminophen [Tylenol Extra Strength] 500 mg tablet 1,000 mg PO .1600, 2200 PRNRF: 0 citalopram 20 mg tablet 20 mg PO DAILY Qty: 90 RF: 4 Neosporin ([id number]-[id number]) 3.5mg-400 unit- 5,000 unit/gram ointment 1 applic TP BID PRN (Reason: skin irritation) Qty: 28.3 RF: 2 clonazepam 0.5 mg tablet 0.5 mg PO BID PRN (Reason: anxiety) Qty: 15 RF: 0 rosuvastatin 40 mg tablet 40 mg feeding tube HS Qty: 90 RF: 4 ipratropium-albuterol 0.5 mg-3 mg(2.5 mg base)/3 mL solution for nebulization 3 ml IN TID PRN (Reason: shortness of breath or wheezing) Qty: 90 RF: 4 3 mLs Saline Vials 1 vial inhalation .5 times a day Qty: 150 RF: 4 gabapentin 300 mg capsule 300 mg feeding tube DAILY Qty: 90 RF: 4 alfuzosin [Uroxatral] 10 mg tablet extended release 24 hr 10 mg PO DAILY Qty: 90 RF: 0 levothyroxine 112 mcg tablet 112 mcg feeding tube DAILY@1700 Qty: 90 RF: 1 amlodipine 5 mg tablet 5 mg PO DAILY Qty: 90 RF: 2 ropinirole 1 mg tablet 1 mg feeding tube DIRECTED Qty: 120 RF: 11 Refresh Tears 0.5 % Drops 1 drp ophthalmic (eye) PRN PRNRF: 0 melatonin 3 MG tablet 6 mg PO HS RF: 0 ferrous sulfate 220 mg (44 mg iron)/5 mL solution 300 mg Feeding Tube DAILY RF: 0 aspirin 81 mg Tablet,Chewable 81 mg feeding tube DAILY RF: 0 Bifidobacterium infantis 4 mg Capsule 4 mg feeding tube DAILY RF: 0 vancomycin HCl in water 100 mg/mL Solution 250 mg BID RF: 0 Discharge Instructions Additional Instructions: Please continue with your feedings as you have typically. Hopefully, the refilling of the balloon today we will keep you from leaking further. However, if the lesion persists Dr. Riley will see you in the office to replace with a different size tube. Please call tomorrow to schedule follow-up appointment if needed. Please continue with the nystatin twice a day. If you develop any new or worsening symptoms please return to the emergency department once again. Referrals: Nancy Riley DO [OSTEOPATHIC DOCTOR] - Discharge Data Discharge Date/Time-TO BE ENTERED AT DEPARTURE: 03/04/20 09:14 Medical Decision Making Patient is a 75-year-old male, well-known to myself, presenting today with chief complaint of leaking around his feeding tube. He reports that this started last night and that he noted his pajamas wet this morning. However, caregiver reports that she has noted been changing his dressings of the past few days. Last status replaced with a short of 2 at the beginning of the month by general surgery. He denies abdominal pain. Last had a feeding at 10 PM with no discomfort normality noted. Reviewed recent note from Dr. Velazquez. Spoke with Dr. Velazquez who recommended refilling the balloon. She advised she will see the patient in the office this week to replace with larger Indonesian if this is unsuccessful. Wound was refilled with 5 cc of sterile water. 4.5 was removed from the balloon initially. Patient tolerated this well without any discomfort. Abdominal exam is benign. They will continue with the nystatin as there is macerated area around the insertion site. However, patient and caregiver report that this is improving. They have not been using the nystatin twice daily. They were given return precautions. They will reach out to Dr. Riley tomorrow to discuss any continued drainage. Plan would be for patient to have larger Indonesian tube if drainage continues. Discussed return precautions. All questions and concerns were addressed, she is in agreement with this plan. HPI General Mode of arrival: ambulatory. Date/Time Provider Initiated Documentation: 03/04/20 08:16. Limitations to Documentation: no limitations. Information obtained by: patient, family and RN notes reviewed. HPI Narrative: Patient is a 75 year old male presenting for evaluation of his G-tube. States he has had leakage around the tube. reports that she has noted that dressing are wet at the time of dressing changes for hte past few days. However, patient states that this is new as of last night. Last feeding was at 1999. reports no difficulty or pain with feeding. However, states that when he awoke, his clothing was wet. Denies fevers/chill. Last had tube change on 02/17/[address] Riley, had initially be doing well without leakage. Related Data Home Medications Medication Instructions Recorded Confirmed acetaminophen 500 mg tablet 1,000 mg PO .1600, 2200 PRN tab 04/05/18 03/04/20 citalopram 20 mg tablet 20 mg PO DAILY #90 tab 04/04/19 03/04/20 Refresh Tears 1 drp OPHTHALMIC (EYE) PRN PRN 08/14/19 03/04/20 neomycin-bacitracn Zn-polymyx 3.5 1 applic TP BID PRN #28.3 gm 09/16/19 03/04/20 mg-400 unit-5,000 unit/gram top oint loperamide 2 mg tablet 2 mg PO QID PRN #30 tab 09/26/19 03/04/20 omeprazole 20 mg capsule,delayed 20 mg FEEDING TUBE BID #90 cap 10/05/19 03/04/20 release Bifidobacterium infantis 4 mg FEEDING TUBE DAILY 10/29/19 03/04/20 aspirin 81 mg FEEDING TUBE DAILY 10/29/19 03/04/20 ferrous sulfate 300 mg FEEDING TUBE DAILY 10/29/19 03/04/20 melatonin 6 mg PO HS 10/29/19 03/04/20 vancomycin HCl in water 250 mg BID 10/29/19 03/04/20 clonazepam 0.5 mg tablet 0.5 mg PO BID PRN #15 tab 11/27/19 03/04/20 rosuvastatin 40 mg tablet 40 mg FEEDING TUBE HS #90 tab 12/14/19 03/04/20 ipratropium 0.5 mg-albuterol 3 mg 3 ml IN TID PRN #90 ml 12/21/19 03/04/20 (2.5 mg base)/3 mL nebulization soln 3 mLs Saline Vials 1 vial INHALATION .5 times a day 01/02/20 03/04/20 #150 vial gabapentin 300 mg capsule 300 mg FEEDING TUBE DAILY #90 cap 01/03/20 03/04/20 alfuzosin 10 mg tablet,extended 10 mg PO DAILY #90 tab-cap 01/04/20 03/04/20 release 24 hr levothyroxine 112 mcg tablet 112 mcg FEEDING TUBE DAILY@1700 01/04/20 03/04/20 #90 tab nystatin 100,000 unit/gram topical 1 applic TP BID #30 gm 02/10/20 03/04/20 cream nystatin 100,000 unit/gram topical 1 applic TP BID #60 gm 02/17/20 03/04/20 powder amlodipine 5 mg tablet 5 mg PO DAILY #90 tab 02/28/20 03/04/20 ropinirole 1 mg tablet 1 mg FEEDING TUBE DIRECTED #120 02/28/20 03/04/20 tab Previous Rx's Medication Instructions Recorded citalopram 20 mg tablet 20 mg PO DAILY #90 tab 04/04/19 neomycin-bacitracn Zn-polymyx 3.5 1 applic TP BID PRN #28.3 gm 09/16/19 mg-400 unit-5,000 unit/gram top oint loperamide 2 mg tablet 2 mg PO QID PRN #30 tab 09/26/19 omeprazole 20 mg capsule,delayed 20 mg FEEDING TUBE BID #90 cap 10/05/19 release clonazepam 0.5 mg tablet 0.5 mg PO BID PRN #15 tab 11/27/19 rosuvastatin 40 mg tablet 40 mg FEEDING TUBE HS #90 tab 12/14/19 ipratropium 0.5 mg-albuterol 3 mg 3 ml IN TID PRN #90 ml 12/21/19 (2.5 mg base)/3 mL nebulization soln 3 mLs Saline Vials 1 vial INHALATION .5 times a day 01/02/20 #150 vial gabapentin 300 mg capsule 300 mg FEEDING TUBE DAILY #90 cap 01/03/20 alfuzosin 10 mg tablet,extended 10 mg PO DAILY #90 tab-cap 01/04/20 release 24 hr levothyroxine 112 mcg tablet 112 mcg FEEDING TUBE DAILY@1700 01/04/20 #90 tab nystatin 100,000 unit/gram topical 1 applic TP BID #30 gm 02/10/20 cream nystatin 100,000 unit/gram topical 1 applic TP BID #60 gm 02/17/20 powder amlodipine 5 mg tablet 5 mg PO DAILY #90 tab 02/28/20 ropinirole 1 mg tablet 1 mg FEEDING TUBE DIRECTED #120 02/28/20 tab Allergies Allergy/AdvReac Type Severity Reaction Status Date / Time pollen extracts Allergy Mild Verified 03/04/20 08:01 Tetracyclines Allergy Unknown SKIN RASH Verified 03/04/20 08:01 General Stated Complaint: Abd Prob CHER: 3 Review of Systems Constitutional Constitutional: Reports as per HPI, Denies chills, Denies fatigue, Denies fever(s) and Denies headache(s) ENT Ears, Nose, Mouth, and Throat: Denies headache(s) Cardiovascular Cardiovascular: Reports as per HPI, Denies chest pain and Denies dyspnea Respiratory Respiratory: Reports as per HPI, Denies cough and Denies dyspnea Gastrointestinal Gastrointestinal: Reports as per HPI Genitourinary Genitourinary: Denies system reviewed and no additional complaints, except as documented (patient denies any change in urinary habits) Musculoskeletal Musculoskeletal: Reports as per HPI and Denies back pain Integumentary/Breasts Skin/Breast: Reports as per HPI and Denies rash Neurologic Neurologic: Reports as per HPI and Denies headache(s) Endocrine Endocrine: Denies fatigue [facility] Medical History Abdominal aortic aneurysm (~03/2019) Dr. Anders Smalls, [place] [facility] [place] 5.5 cm pararenal and suprarenal aneurysm; not candidate for open repair but being considered for fenestrated endovascular repair Abnormal weight loss Alcohol abuse Anxiety Blockage of feeding tube CAD (coronary artery disease) Complication of feeding tube COPD (chronic obstructive pulmonary disease) Cortical cataract of right eye Depression History of alcoholism sober x 25yrs History of tobacco use Hyperlipemia Hypertension Hypothyroidism Impingement syndrome, shoulder, left (10/10/16) -2016: PT yomaira. 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 Tobacco use Surgical History 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) Sin-mullins button placed by Dr Elia Mcdonald [facility] History of esophagogastroduodenoscopy (EGD) (~08/10/19) Daron Casper APRN [place] [facility] [place] hiatal hernia, GERD, Reyes's esophagitis, neuromuscular dysfunction History of laryngectomy History of radical laryngectomy History of tarsorrhaphy PROCEDURES RT/LEFT HEART CARD CATH COMPLETE LARYNGECTOMY Esophagoplasty S/P AAA (abdominal aortic aneurysm) repair Status post cardiac catheterization Status post cataract extraction and insertion of intraocular lens of left eye (04/30/12) Status post cataract extraction and insertion of intraocular lens of right eye (07/12/18) Social History Smoking/Tobacco Use Status: Former Tobacco Use Tobacco: How many years used: 30 Alcohol Intake: never Drug use: Never Substance use type: does not use Current gender identity: male Do you feel safe at home: Yes Do you feel safe in your relationship?: Yes Exam Const General: cooperative, comfortable, no acute distress, well developed and ill appearing chronically Nutritional Appearance: average body habitus and well nourished Orientation: alert, awake and other (uses larynx voice aid) HENMT Head: normal to inspection Mouth: moist mucous membranes Resp Effort & Inspection: normal respiratory effort, able to speak in complete sentences and no respiratory distress Auscultation: clear to auscultation bilaterally, no rales, no rhonchi and no wheezes Cardio Rate: regular rate Rhythm: regular rhythm Heart Sounds: S1 normal and S2 normal GI Inspection: normal to inspection (G-tube in place, erythema around insertion site consistent with yeast infec) and other (dressing has small amount of yellow fluid on it, no active leakage noted) Palpation: soft, no hepatosplenomegaly, not firm, no guarding and nontender Percussion: normal to percussion Auscultation: normal bowel sounds Back/Spine/Pelvis Back: no CVA tenderness Skin General skin exam: erythema (as above) Neuro General: patient alert and patient awake Cognition: normal cognition Speech: speech normal Gait: normal gait Psych Appearance: grossly normal and well kempt Mental Status: mental status grossly normal Speech and Movement: speech and movement normal Course Vital Signs Vital signs: Vital Signs Temperature 37 C 03/04/20 07:51 Pulse 87 03/04/20 07:51 Respiratory Rate 16 03/04/20 07:51 Blood Pressure 125/79 03/04/20 07:51 Pulse Oximetry 91 L 03/04/20 07:51 Temperature 37 C 03/04/20 07:51 Temperature Source Skin 03/04/20 07:51 Pulse 87 03/04/20 07:51 Respiratory Rate 16 03/04/20 07:51 Respiratory Effort Non-Labored 03/04/20 07:51 Blood Pressure 125/79 03/04/20 07:51 Blood Pressure Position Sitting 03/04/20 07:51 Pulse Oximetry 91 L 03/04/20 07:51 Oxygen Delivery Method Room Air 03/04/20 07:51 Oxygen Flow Rate 0 03/04/20 07:51 Pain Level 5 03/04/20 07:51
--- NOTE | 2020-03-04 08:26 | RESPIRATORY ---
Pt has a laryngectomy with a filter in place. Looks clean, no blockage. Pedi oxymask in use over laryngectomy for supplemental is on 2L. Spo2 @ 95%. ambu adapter in room on case of emergency. No complications, pt is able to communicate with a speaking device and feels like his breathing is good at this time.
== END 2020-03-04 09:14 | disposition home or self-care (01) ==
PROVIDERS: Emergency Provider Physician Assistant; PCP Family Medicine
DX: T85.598A Other mechanical complication of other gastrointestinal prosthetic devices, implants and grafts, initial encounter (principal); K94.20 Gastrostomy complication, unspecified; I10 Essential (primary) hypertension; Z90.02 Acquired absence of larynx; J44.9 Chronic obstructive pulmonary disease, unspecified; Z87.891 Personal history of nicotine dependence
CPT/HCPCS: 99282; 99283

== ENCOUNTER → 2020-07-05 14:06 | Outpatient (BNVA) | payer MEDICARE, MEDICAID, SELFPAY | PROVIDERS: PCP Family Medicine; Referring Provider Family Medicine; Visit Provider Surgery | DX: T85.598A Other mechanical complication of other gastrointestinal prosthetic devices, implants and grafts, initial encounter (principal) | CPT/HCPCS: 43762; 99212 ==

== ENCOUNTER → 2020-07-11 14:42 | Outpatient (BNVA) | payer MEDICARE, MEDICAID, SELFPAY | PROVIDERS: PCP Family Medicine; Referring Provider Family Medicine; Visit Provider Nurse Practitioner Gerontology | DX: N40.1 Benign prostatic hyperplasia with lower urinary tract symptoms; N13.8 Other obstructive and reflux uropathy; N39.0 Urinary tract infection, site not specified | CPT/HCPCS: 81003; 99214 ==

== ENCOUNTER 2020-07-11 18:33 | Outpatient (REF) | payer MEDICARE, MEDICAID, SELFPAY | END 2020-07-11 18:53 | LOC: LBN 18:33 | PROVIDERS: PCP Family Medicine; Visit Provider Nurse Practitioner Gerontology | DX: N40.1 Benign prostatic hyperplasia with lower urinary tract symptoms (principal); N13.8 Other obstructive and reflux uropathy | CPT/HCPCS: 87086 ==

== ENCOUNTER → 2020-07-16 13:58 | Outpatient (BNVA) | payer MEDICARE, MEDICAID, SELFPAY | PROVIDERS: PCP Family Medicine; Referring Provider Family Medicine; Visit Provider Surgery | DX: M79.604 Pain in right leg (principal); R60.9 Edema, unspecified; K94.20 Gastrostomy complication, unspecified; Z98.890 Other specified postprocedural states; Z86.79 Personal history of other diseases of the circulatory system; Z90.02 Acquired absence of larynx; J44.9 Chronic obstructive pulmonary disease, unspecified; Z99.81 Dependence on supplemental oxygen | CPT/HCPCS: 43762 ==

== ENCOUNTER 2020-07-16 17:25 | Emergency (ER) | payer MEDICARE, MEDICAID, SELFPAY ==
[2020-07-16 17:35] VITALS: BP 148/100; PULSE 95; RESP 18; TEMP 36.6; O2SAT 94
[2020-07-16 18:00] VITALS: RESP 32
--- NOTE | 2020-07-16 18:30 | RT.EKG_ITS ---
APPROVED REPORT Exam: Resting ECG Patient Location: E HR:94 bpm ECG Measurements Heart Rate 94 AXIS NC 208 P 33 QRSd 161 QRS 79 QT 422 T -3 QTc 528 Conclusion Sinus rhythm...normal P axis, V-rate 60- 99 Multiform ventricular premature complexes...short R-R, variable morphology Borderline prolonged NC interval...NC >207, V-rate 91-120 Left atrial enlargement...P, P'>60mS, <-0.15mV V1 Right bundle branch block...QRSd>120, terminal axis(90,270) I have reviewed and interpreted ECG and agree with software generated interpretation.
[2020-07-16 18:45] LABS: Abs Immature Grans 0.02 10^3/uL (0.0-0.06); Absolute Basophil Count 0.12 10^3/uL (0.0-0.2); Absolute Eosinophil Count 0.47 10^3/uL (0.0-0.7); Absolute Lymphocyte Count 1.31 10^3/uL (1.2-3.4); Absolute Monocyte Count 0.76 10^3/uL (0.1-0.8); Absolute Neutrophil Count 6.55 10^3/uL (1.2-6.7); Basophils % 1.3; Eosinophils % 5.1; HCT 44.9 % (40.0-50.0); HGB 14.7 g/dL (13.5-17.5); Immature Grans % 0.2; Lymphocytes % 14.2; MCH 30.1 pg (27.0-33.0); MCHC 32.7 % (32.0-36.0); MPV 10.1 fL (8.0-11.0); Monocytes % 8.2; Nucleated RBC 0 %; Platelet Count 269 10^3/uL (130-400); RBC 4.88 10^6/uL (4.36-5.78); RDW 13.4 % (11.8-14.1); RDW-SD 45.2 fL; WBC 9.23 10^3/uL (4.4-10.8)
[2020-07-16 19:08] LABS: ALT 23 U/L (16-63); AST 28 U/L (15-37); Albumin 3.9 g/dL (3.4-5.0); Alkaline Phosphatase 84 U/L (46-116); Anion Gap 8.7 mmol/L (3-11); BUN 17 mg/dL (7-18); Bilirubin, Total 0.8 mg/dL (0.2-1.0); CO2 30.3 mmol/L (21.0-32.0); CREATININE 0.8 mg/dL (0.70-1.30); Chloride 98 mmol/L (98-107); Glucose 90 mg/dL (74-106); NT-proBNP 383 pg/mL (<300); Potassium 3.3 mmol/L (3.5-5.1); Sodium 137 mmol/L (136-145); Total Protein 8.3 g/dL (6.4-8.2)
--- NOTE | 2020-07-16 19:08 | W.ED.GENAD ---
Discharge Plan Disposition Patient Disposition: HOME Condition: Stable Discharge Details Clinical Impression: Acute leg pain, Edema, peripheral Primary Care Provider: Jackie Prasad ED Provider: Wanda Villasenor Home Meds and New Rx's Prescriptions: Continued loperamide 2 mg tablet 2 mg PO QID PRN (Reason: loose stool) Qty: 30 RF: 1 ipratropium-albuterol 0.5 mg-3 mg(2.5 mg base)/3 mL solution for nebulization 3 ml IN TID PRN (Reason: shortness of breath or wheezing) Qty: 90 RF: 4 finasteride 5 mg tablet 5 mg PO DAILY Qty: 90 RF: 3 omeprazole 20 mg capsule,delayed release(DR/EC) 20 mg feeding tube BID Qty: 90 RF: 4 nystatin 100,000 unit/gram cream 1 applic TP BID Qty: 30 RF: 0 nystatin 100,000 unit/gram powder 1 applic TP BID Qty: 60 RF: 3 acetylcysteine 100 mg/mL (10 %) solution 4 ml inhalation Q4H RF: 0 acetaminophen [Tylenol Extra Strength] 500 mg tablet 1,000 mg PO .1600, 2200 PRNRF: 0 Neosporin (dtr-mcl-bpedj) 3.5mg-400 unit- 5,000 unit/gram ointment 1 applic TP BID PRN (Reason: skin irritation) Qty: 28.3 RF: 2 clonazepam 0.5 mg tablet 0.5 mg PO BID PRN (Reason: anxiety) Qty: 15 RF: 0 rosuvastatin 40 mg tablet 40 mg feeding tube HS Qty: 90 RF: 4 3 mLs Saline Vials 1 vial inhalation .5 times a day Qty: 150 RF: 4 gabapentin 300 mg capsule 300 mg feeding tube DAILY Qty: 90 RF: 4 ropinirole 1 mg tablet 1 mg feeding tube DIRECTED Qty: 120 RF: 11 alfuzosin [Uroxatral] 10 mg tablet extended release 24 hr 10 mg PO DAILY Qty: 90 RF: 3 ferrous sulfate 220 mg (44 mg iron)/5 mL solution 300 mg Feeding Tube DAILY Qty: 473 RF: 0 amlodipine 5 mg tablet 7.5 mg PO DAILY Qty: 135 RF: 2 citalopram 20 mg tablet 20 mg PO DAILY Qty: 90 RF: 4 carboxymethylcellulose sodium [Refresh Tears] 0.5 % Drops 1 drp ophthalmic (eye) PRN PRNRF: 0 melatonin 3 MG tablet 6 mg PO HS RF: 0 aspirin 81 mg Tablet,Chewable 81 mg feeding tube DAILY RF: 0 Bifidobacterium infantis 4 mg Capsule 4 mg feeding tube DAILY RF: 0 levothyroxine 112 mcg tablet 20 mcg feeding tube DAILY@1700 RF: 0 Discharge Instructions Instructions: Leg Pain (ED) Additional Instructions: Elevate and wear your compression stockings for your legs as much as possible. You will receive a call tomorrow from radiology regarding scheduling an appointment for outpatient ultrasound of your legs. Follow-up with your scheduled appointment with your vascular surgeon Dr. Ibanez later this week. Continue taking your Requip medication as needed and directed for your restless leg syndrome. Return immediately to the emergency department if you develop any worsening or new concerning symptoms. Discharge Data Discharge Date/Time-TO BE ENTERED AT DEPARTURE: 07/16/20 21:25 Discharge Physician: Wanda Villasenor Medical Decision Making <MARC Dennis - Last Filed: 07/18/20 13:08> This complex patient has complex vascular history, given concern for claudication pain, CTA chest abdomen pelvis was ordered, pending at time of signout Patient given 50 mcg of fentanyl for pain control and his Requip His vital signs are stable He is alert and oriented Regular suspicion for discitis patient was relatively low risk, options standpoint, no evidence of cauda equina syndrome, strength sensation intact distally, no bowel anesthesia Concern for claudication given the nature not reproducible. He is afebrile and nontoxic and his diagnostic labs not show significant acute pathology, mild elevation in BNP If his CT is negative, he will need ultrasound, patient is stable for discharge home if CTA does not show acute pathology, I will leave this to the discretion my attending physician, Dr. Farris Findings 8, p.m. Pending CTA Clinically low suspicion for discitis or epidural abscess as patient does not have any back pain radicular symptoms No evidence of cauda equina syndrome, strength and sensation intact for patient Patient is noted to be mildly hypertensive, 148/100, will give pain medication and reassess Pulse 99 respirations 18 Differential Diagnosis Differential Diagnosis: Discitis, aortic aneurysm leak, sciatica, back pain with lumbar radiculopat Medical Records Medical records reviewed: Yes I reviewed the patient's medical records. <Wanda Villasenor DO - Last Filed: 07/17/20 12:38> 1999 -- Please see MARC Dowling note for initial presentation, exam and plan. Case endorsed to f/u on CT imaging and final disposition. Patient complaining of swelling in bilateral feet and right leg pain for the past several weeks. He does have a history of restless leg syndrome but is complaining of intermittent sharp pain throughout his right leg. CTA abdomen and pelvis notes: IMPRESSION: 1. Long segment thoracoabdominal stent graft with multiple grafts at the origins of the celiac artery, SMA, bilateral renal arteries and bilateral iliac arteries extending to the bilateral external iliac portions. No endoluminal thrombus or significant stenosis within the grafted portions. 2. Small type 2 endoleak within the aneurysm sac. 3. Atherosclerotic vascular calcifications along the bilateral lower extremity arteries without significant stenosis or occlusion. 4. Posterior urinary bladder wall thickening with multiple large diverticula. No bladder stone or gross evidence for bladder mass. 5. Percutaneous gastrostomy tube. 2109 -- Imaging reviewed with [facility] vascular surgery Dr. Mcdonald and he has no acute recommendations regarding these findings at this time. He states there is no occlusion and pt has an appointment with his vascular surgeon in 3 days for follow-up. He will make a note to check ABIs on patient's appointment at that time. Patient reassessed at bedside and he is requesting to go home. He describes that his pain is worse with ambulation and better with rest. Suspect most likely intermittent claudication. Also consider sciatica, disc herniation. His distal pulses are intact bilaterally and no evidence of trauma or cellulitis. Will place an order for bilateral Doppler ultrasounds of lower extremities. Patient advised that he will receive a call from radiology regarding scheduling this tomorrow. He is advised to return to the ED after his ultrasound for results and follow-up. He is advised to continue his Requip as needed. Usual and customary return precautions given prior to discharge. Medical Records Medical records reviewed: Yes I reviewed the patient's medical records. Imaging Data Radiologic Study: Radiologist's impression: CTA Angiogram of the Abdominal Aorta and Bilateral Lower Extremities (Run-off) With IV Contrast Exam date and time: 07/16/2020 7:28 PM Age: 75 years old Clinical indication: Other: Right leg pain; Prior surgery; Patient HX: R leg pain, aortic graft, periph edema TECHNIQUE: Imaging protocol: CT angiogram of the abdominal aorta, pelvis and bilateral lower extremities with IV iodinated contrast. 3D rendering (Not supervised by radiologist): MIP and/or 3D reconstructed images were created by the technologist. COMPARISON: CTA ABDOMEN 12/23/2016 12:28 PM FINDINGS: Aorta: Thoracoabdominal stent graft extending to bi-iliac stent grafts are patent. The excluded portions of the large abdominal aortic aneurysm demonstrates some linear peripheral contrast anteriorly and posteriorly field service representative of small type 2 endoleak. Celiac trunk and mesenteric arteries: Multiple smaller stents at the origin of the celiac artery, the SMA, and the bilateral renal arteries. These are all widely patent. Renal arteries: Bilateral renal stents. No occlusion or significant stenosis. Right iliac arteries: The iliac stents terminate at the proximal portions of the bilateral external iliac arteries. No significant stenosis identified distally. Heavily calcified bilateral common iliac arteries noted with mural thrombus but no significant stenosis. Right femoral/popliteal arteries: See Left femoral/popliteal arteries finding. Right infrapopliteal arteries: Multiple small foci peripheral arterial sclerotic vascular calcifications. No occlusion or significant stenosis as the flow crosses the ankles. Left iliac arteries: The iliac stents terminate at the proximal portions of the bilateral external iliac arteries. No significant stenosis identified distally. Left femoral/popliteal arteries: Heavily calcified bilateral common femoral arteries noted with mural thrombus but no significant stenosis. Mild stenosis at the origins of the bilateral superficial femoral arteries with minimal calcifications. Mild to moderate narrowing of the proximal and mid superficial femoral arteries noted bilaterally with reconstitution of the distal SFA and the popliteal arteries. Left infrapopliteal arteries: Multiple small foci peripheral arterial sclerotic vascular calcifications. No occlusion or significant stenosis as the flow crosses the ankles. Lungs: The visualized lung bases are notable for mild centrilobular emphysema. Multiple inflammatory nodules identified in the lateral basal segment of the left lower lobe. Liver: No mass. Gallbladder and bile ducts: Tiny layering gallstones without CT evidence of cholecystitis. stones. No ductal dilation. Pancreas: Unremarkable. No mass. No ductal dilation. Spleen: Normal. No splenomegaly. Adrenals: Normal. No mass. Kidneys and ureters: Normal. No mass. Simple cyst arising from the lower pole of the right kidney measuring 2.0 cm. Scarring in the anterior aspect of the left inferior renal pole. Stomach and bowel: Percutaneous gastrostomy tube in good position.. No obstruction. No mucosal thickening. Appendix: No evidence of appendicitis. Bladder: Multiple large posterior bladder wall diverticula with chronic posterior wall thickening. No bladder stone. Reproductive: Unremarkable as visualized. Intraperitoneal space: Unremarkable. No free air. No significant fluid collection. Lymph nodes: No lymphadenopathy. Bones/joints: No acute fracture. Stable anterior wedge compression fracture at T11. No dislocation. Soft tissues: Unremarkable. IMPRESSION: 1. Long segment thoracoabdominal stent graft with multiple grafts at the origins of the celiac artery, SMA, bilateral renal arteries and bilateral iliac arteries extending to the bilateral external iliac portions. No endoluminal thrombus or significant stenosis within the grafted portions. 2. Small type 2 endoleak within the aneurysm sac. 3. Atherosclerotic vascular calcifications along the bilateral lower extremity arteries without significant stenosis or occlusion. 4. Posterior urinary bladder wall thickening with multiple large diverticula. No bladder stone or gross evidence for bladder mass. 5. Percutaneous gastrostomy tube. Lab Data Lab results reviewed: Yes I reviewed the patient's lab results. Labs: Laboratory Tests Range/Units 07/16/20 07/16/20 18:40 18:40 WBC (4.4-10.8) 10^3/uL 9.23 RBC (4.36-5.78) 10^6/uL 4.88 Hgb (13.5-17.5) g/dL 14.7 Hct (40.0-50.0) % 44.9 MCV (80-95) fL 92.0 MCH (27.0-33.0) pg 30.1 MCHC (32.0-36.0) % 32.7 RDW (11.8-14.1) % 13.4 Plt Count (130-400) 10^3/uL 269 MPV (8.0-11.0) fL 10.1 Immature Gran % 0.2 Neutrophils % 71.0 Lymphocytes % 14.2 Monocytes % 8.2 Eosinophils % 5.1 Basophils % 1.3 Nucleated RBC % % 0 Absolute Neutrophils (1.2-6.7) 10^3/uL 6.55 Absolute Lymphocytes (1.2-3.4) 10^3/uL 1.31 Absolute Monocytes (0.1-0.8) 10^3/uL 0.76 Absolute Eosinophils (0.0-0.7) 10^3/uL 0.47 Absolute Basophils (0.0-0.2) 10^3/uL 0.12 Sodium (136-145) mmol/L 137 Potassium (3.5-5.1) mmol/L 3.3 L Chloride (98-107) mmol/L 98 Carbon Dioxide (21.0-32.0) mmol/L 30.3 Anion Gap (3-11) mmol/L 8.7 BUN (7-18) mg/dL 17 Creatinine (0.70-1.30) mg/dL 0.8 Estimated GFR/1.73 m2 (mL/min/1.73m2) >= 60.00 Glucose (74-106) mg/dL 90 Calcium (8.5-10.1) mg/dL 9.0 Total Bilirubin (0.2-1.0) mg/dL 0.8 AST (15-37) U/L 28 ALT (16-63) U/L 23 Alkaline Phosphatase (46-116) U/L 84 Troponin I (<0.06) ng/mL < 0.05 NT-Pro-B Natriuret Pep (<300) pg/mL 383 H Total Protein (6.4-8.2) g/dL 8.3 H Albumin (3.4-5.0) g/dL 3.9 ECG Data Attestation: I personally reviewed and interpreted this ECG (s) as follows: Interpretation: Rate 94, sinus, right bundle branch block. PVCs. No STEMI. HPI <MARC Dennis - Last Filed: 07/18/20 13:08> This 75-year-old male with past medical history of abdominal aortic aneurysm repair 1 year prior to arrival, chronic right leg pain, edema, feeding tube, COPD, hyperlipidemia, hypertension, hypothyroidism, peripheral neuropathy, malignant neoplasm of oropharynx, trach, restless leg syndrome, insomnia presents with reports of claudication pain in his right lower extremity. He states that this has been intermittent for the past month. Primary care physician recommended ibuprofen, however patient returns because he has persistent and worsening pain. Describes the pain as sharp and stabbing. Denies any abdominal pain, chest pain, shortness of breath, dizziness. Denies history illicit drug use. Number from patient changes to lower extremity. Denies discoloration to extremities. Abdominal pain flank pain. No fever or chills. Denies denies fever or chills. Denies known exacerbating or alleviating factors General Date/Time Provider Initiated Documentation: 07/16/20 18:13. Related Data Home Medications Medication Instructions Recorded Confirmed acetaminophen 500 mg tablet 1,000 mg PO .1600, 2200 PRN tab 04/05/18 07/16/20 carboxymethylcellulose sodium 1 drp OPHTHALMIC (EYE) PRN PRN 08/14/19 07/16/20 [Refresh Tears] neomycin-bacitracn Zn-polymyx 3.5 1 applic TP BID PRN #28.3 gm 09/16/19 07/16/20 mg-400 unit-5,000 unit/gram top oint loperamide 2 mg tablet 2 mg PO QID PRN #30 tab 09/26/19 07/16/20 omeprazole 20 mg capsule,delayed 20 mg FEEDING TUBE BID #90 cap 10/05/19 07/16/20 release Bifidobacterium infantis 4 mg FEEDING TUBE DAILY 10/29/19 07/16/20 aspirin 81 mg FEEDING TUBE DAILY 10/29/19 07/16/20 melatonin 6 mg PO HS 10/29/19 07/16/20 clonazepam 0.5 mg tablet 0.5 mg PO BID PRN #15 tab 11/27/19 07/16/20 rosuvastatin 40 mg tablet 40 mg FEEDING TUBE HS #90 tab 12/14/19 07/16/20 3 mLs Saline Vials 1 vial INHALATION .5 times a day 01/02/20 07/16/20 #150 vial gabapentin 300 mg capsule 300 mg FEEDING TUBE DAILY #90 cap 01/03/20 07/16/20 nystatin 100,000 unit/gram topical 1 applic TP BID #30 gm 02/10/20 07/16/20 cream nystatin 100,000 unit/gram topical 1 applic TP BID #60 gm 02/17/20 07/16/20 powder ropinirole 1 mg tablet 1 mg FEEDING TUBE DIRECTED #120 02/28/20 07/16/20 tab alfuzosin 10 mg tablet,extended 10 mg PO DAILY #90 tab-cap 04/18/20 07/16/20 release 24 hr ferrous sulfate 220 mg (44 mg 300 mg FEEDING TUBE DAILY #473 ml 04/18/20 07/16/20 iron)/5 mL oral solution amlodipine 5 mg tablet 7.5 mg PO DAILY #135 tab 05/01/20 07/16/20 citalopram 20 mg tablet 20 mg PO DAILY #90 tab 05/18/20 07/16/20 ipratropium 0.5 mg-albuterol 3 mg 3 ml IN TID PRN #90 ml 06/21/20 07/16/20 (2.5 mg base)/3 mL nebulization soln acetylcysteine 100 mg/mL (10 %) 4 ml INHALATION Q4H ml 07/05/20 07/16/20 solution finasteride 5 mg tablet 5 mg PO DAILY #90 tab 07/11/20 07/16/20 levothyroxine 20 mcg FEEDING TUBE DAILY@1700 07/16/20 07/16/20 Previous Rx's Medication Instructions Recorded neomycin-bacitracn Zn-polymyx 3.5 1 applic TP BID PRN #28.3 gm 09/16/19 mg-400 unit-5,000 unit/gram top oint loperamide 2 mg tablet 2 mg PO QID PRN #30 tab 09/26/19 omeprazole 20 mg capsule,delayed 20 mg FEEDING TUBE BID #90 cap 10/05/19 release clonazepam 0.5 mg tablet 0.5 mg PO BID PRN #15 tab 11/27/19 rosuvastatin 40 mg tablet 40 mg FEEDING TUBE HS #90 tab 12/14/19 3 mLs Saline Vials 1 vial INHALATION .5 times a day 01/02/20 #150 vial gabapentin 300 mg capsule 300 mg FEEDING TUBE DAILY #90 cap 01/03/20 nystatin 100,000 unit/gram topical 1 applic TP BID #30 gm 02/10/20 cream nystatin 100,000 unit/gram topical 1 applic TP BID #60 gm 02/17/20 powder ropinirole 1 mg tablet 1 mg FEEDING TUBE DIRECTED #120 02/28/20 tab alfuzosin 10 mg tablet,extended 10 mg PO DAILY #90 tab-cap 04/18/20 release 24 hr ferrous sulfate 220 mg (44 mg 300 mg FEEDING TUBE DAILY #473 ml 04/18/20 iron)/5 mL oral solution amlodipine 5 mg tablet 7.5 mg PO DAILY #135 tab 05/01/20 citalopram 20 mg tablet 20 mg PO DAILY #90 tab 05/18/20 ipratropium 0.5 mg-albuterol 3 mg 3 ml IN TID PRN #90 ml 06/21/20 (2.5 mg base)/3 mL nebulization soln finasteride 5 mg tablet 5 mg PO DAILY #90 tab 07/11/20 Allergies Allergy/AdvReac Type Severity Reaction Status Date / Time pollen extracts Allergy Mild Verified 07/16/20 17:46 Tetracyclines Allergy Unknown SKIN RASH Verified 07/16/20 17:46 General Stated Complaint: GenMedical CHER: 3 <Wanda Villasenor DO - Last Filed: 07/17/20 12:38> This 75-year-old male with past medical history of abdominal aortic aneurysm repair 1 year prior to arrival, chronic right leg pain, edema, feeding tube, COPD, hyperlipidemia, hypertension, hypothyroidism, peripheral neuropathy, malignant neoplasm of oropharynx, trach, restless leg syndrome, insomnia presents with reports of claudication pain in his right lower extremity. He states that this has been intermittent for the past month. Primary care physician recommended ibuprofen, however patient returns because he has persistent and worsening pain. Describes the pain as sharp and stabbing. Denies any abdominal pain, chest pain, shortness of breath, dizziness. Denies history illicit drug use. Number from patient changes to lower extremity. Denies discoloration to extremities. Abdominal pain flank pain. No fever or chills. Denies denies fever or chills. Denies known exacerbating or alleviating factors Review of Systems <MARC Dennis - Last Filed: 07/18/20 13:08> Narrative: Review of systems negative x7 aside from indicated in HPI PFSH <MARC Dennis - Last Filed: 07/18/20 13:08> Medical History (Updated 07/17/20 @ 13:05 by Kalyan Barreto MD) Anemia Anxiety Blockage of feeding tube CAD (coronary artery disease) Complication of feeding tube COPD (chronic obstructive pulmonary disease) Cortical cataract of right eye Depression Hematoma following procedure Herpes zoster History of alcoholism sober x 25yrs History of tobacco use Hyperlipemia Hypertension Hypothyroidism Impingement syndrome, shoulder, left (10/10/16) -2016: PT [facility]a. 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 Tobacco use Surgical History 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) Sin-mullins button placed by CHRISS Acevedo History of esophagogastroduodenoscopy (EGD) (~08/10/19) Daron Cas[place] [facility] [place] hiatal [place], GERD, Reyes's esophagitis, neuromuscular dysfunction History of laryngectomy History of radical laryngectomy History of tarsorrhaphy PROCEDURES RT/LEFT HEART CARD CATH COMPLETE LARYNGECTOMY Esophagoplasty S/P AAA (abdominal aortic aneurysm) repair Status post cardiac catheterization Status post cataract extraction and insertion of intraocular lens of left eye (04/30/12) Status post cataract extraction and insertion of intraocular lens of right eye (07/12/18) Social History Smoking/Tobacco Use Status: Former Tobacco Use Tobacco: How many years used: 30 Smoking risk assessment performed?: Yes Alcohol Intake: never Drug use: Never Substance use type: does not use Current gender identity: male Do you feel safe at home: Yes Do you feel safe in your relationship?: Yes Exam <MARC Dennis - Last Filed: 07/18/20 13:08> Const General: cooperative Other: Chronically ill-appearing Chest Chest: normal inspection of the chest Resp Effort & Inspection: normal respiratory effort Cardio Rate: regular rate Other: Distal pulses intact 4 extremities. GI Other: J-tube in place, well-appearing Back/Spine/Pelvis Other: No midline back tenderness Skin General skin exam: no rashes or lesions noted Neuro General: patient alert, patient awake and patient oriented x3 Other: History of peripheral neuropathy, sensation intact per patient, DTRs intact bilateral lower and upper extremities strength and sensation intact for age to bilateral, Extrem Other: Bilateral peripheral edema, 2+, neurovascularly intact, 2+ pulses dorsalis pedis and posterior tibialis, brisk cap refill to bilateral lower extremities Symmetrical edema Mild right-sided tenderness Course <MARC Dennis - Last Filed: 07/18/20 13:08> Vital Signs Vital signs: Vital Signs Temperature 36.6 C 07/16/20 17:35 Pulse 95 H 07/16/20 17:35 Respiratory Rate 18 07/16/20 17:35 Blood Pressure 148/100 H 07/16/20 17:35 Pulse Oximetry 94 07/16/20 17:35 Temperature 36.6 C 07/16/20 17:35 Temperature Source Temporal Artery Scan 07/16/20 17:35 Pulse 95 H 07/16/20 17:35 Respiratory Rate 32 H 07/16/20 18:00 Respiratory Effort 07/16/20 18:00 Respiratory Depth Normal 07/16/20 18:00 Respiratory Pattern Normal 07/16/20 18:00 Blood Pressure 148/100 H 07/16/20 17:35 Pulse Oximetry 94 07/16/20 17:35 Oxygen Delivery Method Nasal Cannula 07/16/20 17:35 Oxygen Flow Rate 6 07/16/20 17:35 Lab/Test Results Lab/Test Results: Laboratory Tests Range/Units 07/16/20 18:40 WBC (4.4-10.8) 10^3/uL 9.23 RBC (4.36-5.78) 10^6/uL 4.88 Hgb (13.5-17.5) g/dL 14.7 Hct (40.0-50.0) % 44.9 MCV (80-95) fL 92.0 MCH (27.0-33.0) pg 30.1 MCHC (32.0-36.0) % 32.7 RDW (11.8-14.1) % 13.4 Plt Count (130-400) 10^3/uL 269 MPV (8.0-11.0) fL 10.1 Immature Gran % 0.2 Neutrophils % 71.0 Lymphocytes % 14.2 Monocytes % 8.2 Eosinophils % 5.1 Basophils % 1.3 Nucleated RBC % % 0 Absolute Neutrophils (1.2-6.7) 10^3/uL 6.55 Absolute Lymphocytes (1.2-3.4) 10^3/uL 1.31 Absolute Monocytes (0.1-0.8) 10^3/uL 0.76 Absolute Eosinophils (0.0-0.7) 10^3/uL 0.47 Absolute Basophils (0.0-0.2) 10^3/uL 0.12 Sign Out <MARC Dennis - Last Filed: 07/18/20 13:08> Sign Out Data: Sign Out Comment: pending cta aorta with runoff Last updated by Antonina Dowling PA at 07/16/20 20:12
[2020-07-16 19:10] LABS: Troponin I < 0.05 ng/mL (<0.06)
--- NOTE | 2020-07-16 19:15 | DI.CT_ITS ---
EXAM: CT ABD AORTA CTA W RUNOFF CLINICAL HISTORY: right leg pain, aortic graft. TECHNIQUE: Imaging Protocol: Axial CT angiography was performed with multi-slice acquisition and mu lti-planar and/or 3D reconstructions. CONTRAST MATERIAL: Intravenous: Omnipaque 350 Contrast volume:150 mL Oral: No COMPARISON: CT CT THORAX ABD/PEL CTA from 10/29/2019 FINDINGS: Vascular Structures: Lung bases: There is a stent seen in the visualized portion of the distal thoracic aorta. Abdomen: Celiac Arnold/SMA: There are stents seen at the ostia of both the celiac artery and the superior mesen teric artery. No obstruction or significant stenosis is seen. Renal Arteries: There are stents seen at the openings of both right and left renal arteries. No evide nce of obstruction or significant stenosis. Aorta: There is a 5.9 cm [place] abdominal aortic aneurysm. There is an aorto bi iliac stent stent in place. The stent is patent. There is some linear contrast seen within the [place] abdominal aortic an eurysm anteriorly and posterior to the stent which may represent a small type 2 endoleak. Pelvis: Iliac Arteries: No evidence of stenosis. Atherosclerosis. Common Femoral Arteries: No evidence of occlusion. Atherosclerosis. Lower extremities: Right: Common Femoral: Heavily calcified femoral arteries but no significant stenosis. Superficial Femoral: Atherosclerosis with areas of [id number]-zy-utzzoytz stenosis. No occlusion. Popliteal: Atherosclerosis but no significant stenosis or occlusion. Knee Trifurcation: Atherosclerosis but no significant stenosis or occlusion. Posterior Tibial: Atherosclerosis but no occlusion or significant stenosis. Dorsalis Pedis: Atherosclerosis but no significant stenosis or occlusion. Left: Common Femoral: Atherosclerosis but no significant stenosis. No occlusion. Superficial Femoral: Atherosclerosis with areas of [id number]-er-lpakmajp stenosis. No occlusion. Popliteal: Atherosclerosis but no significant stenosis or occlusion. Knee Trifurcation: Atherosclerosis but no occlusion or significant stenosis. Posterior Tibial: Atherosclerosis but no occlusion or significant stenosis. Dorsalis Pedis: Atherosclerosis but no significant stenosis or occlusion. Soft Tissues: Liver: Normal density. No measurable mass. Gallbladder and biliary tract: Cholelithiasis. No biliary ductal dilatation. Pancreas: Normal density, no abnormal calcifications or inflammatory process. Spleen: Normal. Kidneys: Normal size, contour and axis. No radiodense stones or obstructive uropathy. There is a 2 cm simple cyst in the lower pole of the right kidney. No further workup is recommended. There is a ques tion of 1.6 cm mass in the inferior pole of the left kidney versus scarring. Adrenal glands: No masses seen. Aorta: There is an abdominal aortic bi-iliac stent in place. There is aneurysmal dilatation of the na tive abdominal aorta up to 5.9 cm. Bladder: There is symmetric distention. At least 2 bladder diverticula are seen posteriorly with chronic specialist vickie bladder wall thickening.. Bowel: No obstruction or bowel wall thickening. No evidence of acute appendicitis. The patient has a percutaneous gastrostomy tube. Peritoneal cavity: No ascites, collection or mesenteric inflammatory response. Bones: Degenerative changes are seen in the lumbar spine. Old compression deformities are seen at T12 and L1. There is exaggeration of the kyphosis at the thoracolumbar junction secondary to the ernesto anitha fracture deformities. IMPRESSION: 1. Arterial stent grafts extending from the visualized portions of the descending thoracic aorta comm on aiding in bi iliac stents. No significant stenosis within the grafted portions. 2. Findings suggestive of a small type 2 endoleak within the [place] abdominal aortic aneurysm. 3. Extensive atherosclerosis in the lower extremities without evidence of occlusion or significant st enosis. RADIATION DOSE DELIVERED: 1,155.79mGy.cm Total DLP DATA REPOSITORY: All CT scans at this facility are submitted to the National Radiology Data Registry (NRDR) Dose Index Registry (DIR) with the [employer] (ACR). RADIATION OPTIMIZATION: All CT scans at this facility use at least one of these dose optimization te chniques: automated exposure control; mA and/or kV adjustment per patient size (includes targeted exa ms where dose is matched to clinical indication); or iterative reconstruction.
[2020-07-16] MEDS: Acetaminophen 500 MG TAB (19:25)
[2020-07-16] MEDS: Omnipaque 350 MG/ML 100 ML BTL IJ (20:02)
[2020-07-16] MEDS: Normal Saline - Diluent 50 ML VIAL IV ×2 (20:03→20:04)
[2020-07-16] MEDS: Omnipaque 350 MG/ML 50 ML BTL IJ (20:03)
[2020-07-16] MEDS: Normal Saline Flush 10 ML SYR IVP (20:04)
[2020-07-16] MEDS: fentaNYL 100 MCG/2 ML VIAL 50 MCG IVP (20:12)
[2020-07-16] MEDS: rOPINIRole 1 MG TAB (20:12)
--- NOTE | 2020-07-16 20:38 | DI.VRAD_ITS ---
PROCEDURE INFORMATION: Exam: CTA Angiogram of the Abdominal Aorta and Bilateral Lower Extremities (Run-off) With IV Contrast Exam date and time: 07/16/2020 7:28 PM Age: 75 years old Clinical indication: Other: Right leg pain; Prior surgery; Patient HX: R leg pain, aortic graft, periph edema TECHNIQUE: Imaging protocol: CT angiogram of the abdominal aorta, pelvis and bilateral lower extremities with IV iodinated contrast. 3D rendering (Not supervised by radiologist): MIP and/or 3D reconstructed images were created by the technologist. COMPARISON: CTA ABDOMEN 12/23/2016 12:28 PM FINDINGS: Aorta: Thoracoabdominal stent graft extending to bi-iliac stent grafts are patent. 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 Celiac trunk and mesenteric arteries: Multiple smaller stents at the origin of the celiac artery, the SMA, and the bilateral renal arteries. These are all widely patent. Renal arteries: Bilateral renal stents. No occlusion or significant stenosis. Right iliac arteries: The iliac stents terminate at the proximal portions of the bilateral external iliac arteries. No significant stenosis identified distally. Heavily calcified bilateral common iliac arteries noted with mural thrombus but no significant stenosis. Right femoral/popliteal arteries: See Left femoral/popliteal arteries finding. Right infrapopliteal arteries: Multiple small foci peripheral arterial sclerotic vascular calcifications. No occlusion or significant stenosis as the flow crosses the ankles. Left iliac arteries: The iliac stents terminate at the proximal portions of the bilateral external iliac arteries. No significant stenosis identified distally. Left femoral/popliteal arteries: Heavily calcified bilateral common femoral arteries noted with mural thrombus but no significant stenosis. Mild stenosis at the origins of the bilateral superficial femoral arteries with minimal calcifications. Mild to moderate narrowing of the proximal and mid superficial femoral arteries noted bilaterally with reconstitution of the distal SFA and the popliteal arteries. Left infrapopliteal arteries: Multiple small foci peripheral arterial sclerotic vascular calcifications. No occlusion or significant stenosis as the flow crosses the ankles. Lungs: The visualized lung bases are notable for mild centrilobular emphysema. Multiple inflammatory nodules identified in the lateral basal segment of the left lower lobe. Liver: No mass. Gallbladder and bile ducts: Tiny layering gallstones without CT evidence of cholecystitis. stones. No ductal dilation. Pancreas: Unremarkable. No mass. No ductal dilation. Spleen: Normal. No splenomegaly. Adrenals: Normal. No mass. Kidneys and ureters: Normal. No mass. Simple cyst arising from the lower pole of the right kidney measuring 2.0 cm. Scarring in the anterior aspect of the left inferior renal pole. Stomach and bowel: Percutaneous gastrostomy tube in good position.. No obstruction. No mucosal thickening. Appendix: No evidence of appendicitis. Bladder: Multiple large posterior bladder wall diverticula with chronic posterior wall thickening. No bladder stone. Reproductive: Unremarkable as visualized. Intraperitoneal space: Unremarkable. No free air. No significant fluid collection. Lymph nodes: No lymphadenopathy. Bones/joints: No acute fracture. Stable anterior wedge compression fracture at T11. No dislocation. Soft tissues: Unremarkable. IMPRESSION: 1. Long segment thoracoabdominal stent graft with multiple grafts at the origins of the celiac artery, SMA, bilateral renal arteries and bilateral iliac arteries extending to the bilateral external iliac portions. No endoluminal thrombus or significant stenosis within the grafted portions. 2. Small type 2 endoleak within the aneurysm sac. 3. Atherosclerotic vascular calcifications along the bilateral lower extremity arteries without significant stenosis or occlusion. 4. Posterior urinary bladder wall thickening with multiple large diverticula. No bladder stone or gross evidence for bladder mass. 5. Percutaneous gastrostomy tube. The study was personally discussed on the telephone with Dr. DU on 07/16/2020 8:36 PM EST. The results were understood and acknowledged. Dictated and Authenticated by: Maureen Betancourt MD. Ordering:TRISTA Sarkar MD
[2020-07-16 21:25] VITALS: BP 178/74; PULSE 86; RESP 24; TEMP 36.6; O2SAT 95
== END 2020-07-16 21:25 | disposition home or self-care (01) ==
PROVIDERS: Physician Assistant; Emergency Provider Physician Assistant; PCP Family Medicine
DX: R60.0 Localized edema (principal); M79.604 Pain in right leg; Z95.828 Presence of other vascular implants and grafts
CPT/HCPCS: 36415; 43762; 75635; 80053; 93005; 96374; 99285; 83880; 84484; 85025; 93010; J3010; J3490; Q9967

== ENCOUNTER 2020-07-17 12:55 | Emergency (ER) | payer MEDICARE, MEDICAID, SELFPAY ==
[2020-07-17 13:03] VITALS: BP 106/74; PULSE 84; RESP 18; TEMP 36.6; O2SAT 97
--- NOTE | 2020-07-17 13:04 | W.ED.GENAD ---
Discharge Plan Disposition Patient Disposition: HOME Condition: Stable Discharge Details Clinical Impression: Leg pain, right Primary Care Provider: Jackie Prasad ED Provider: Kalyan Barreto Ferdinand Meds and New Rx's Prescriptions: Continued loperamide 2 mg tablet 2 mg PO QID PRN (Reason: loose stool) Qty: 30 RF: 1 ipratropium-albuterol 0.5 mg-3 mg(2.5 mg base)/3 mL solution for nebulization 3 ml IN TID PRN (Reason: shortness of breath or wheezing) Qty: 90 RF: 4 finasteride 5 mg tablet 5 mg PO DAILY Qty: 90 RF: 3 omeprazole 20 mg capsule,delayed release(DR/EC) 20 mg feeding tube BID Qty: 90 RF: 4 nystatin 100,000 unit/gram cream 1 applic TP BID Qty: 30 RF: 0 nystatin 100,000 unit/gram powder 1 applic TP BID Qty: 60 RF: 3 acetylcysteine 100 mg/mL (10 %) solution 4 ml inhalation Q4H RF: 0 acetaminophen [Tylenol Extra Strength] 500 mg tablet 1,000 mg PO .1600, 2200 PRNRF: 0 Neosporin (cme-ffb-unxrd) 3.5mg-400 unit- 5,000 unit/gram ointment 1 applic TP BID PRN (Reason: skin irritation) Qty: 28.3 RF: 2 clonazepam 0.5 mg tablet 0.5 mg PO BID PRN (Reason: anxiety) Qty: 15 RF: 0 rosuvastatin 40 mg tablet 40 mg feeding tube HS Qty: 90 RF: 4 3 mLs Saline Vials 1 vial inhalation .5 times a day Qty: 150 RF: 4 gabapentin 300 mg capsule 300 mg feeding tube DAILY Qty: 90 RF: 4 ropinirole 1 mg tablet 1 mg feeding tube DIRECTED Qty: 120 RF: 11 alfuzosin [Uroxatral] 10 mg tablet extended release 24 hr 10 mg PO DAILY Qty: 90 RF: 3 ferrous sulfate 220 mg (44 mg iron)/5 mL solution 300 mg Feeding Tube DAILY Qty: 473 RF: 0 amlodipine 5 mg tablet 7.5 mg PO DAILY Qty: 135 RF: 2 citalopram 20 mg tablet 20 mg PO DAILY Qty: 90 RF: 4 carboxymethylcellulose sodium [Refresh Tears] 0.5 % Drops 1 drp ophthalmic (eye) PRN PRNRF: 0 melatonin 3 MG tablet 6 mg PO HS RF: 0 aspirin 81 mg Tablet,Chewable 81 mg feeding tube DAILY RF: 0 Bifidobacterium infantis 4 mg Capsule 4 mg feeding tube DAILY RF: 0 levothyroxine 112 mcg tablet 20 mcg feeding tube DAILY@1700 RF: 0 Discharge Instructions Instructions: Leg Pain (ED) Additional Instructions: your ultrasound did not show any blood clots follow up as scheduled with your vascular surgeon if severe worsening pain, fevers or you feel more ill return to the emergency department Medical Decision Making 75 yo male with multiple medical comorbidities who was seen last night for intermittent right leg pain and had cta showing no significant findings after review with his vascular surgeon who he is seeing this week, comes in after he had an u/s done that was negative for dvt. He states intermittent right thigh pain. No fevers, no leg swelling and no back pain on my history. Has full rom and can bear weight. Given the intermittent nautre of the pain suspect spasm vs neuropathy. Given negative cta yesterday and u/s negative today feel he is stable for d/c and he agrees, return precautions given Medical Records Medical records reviewed: Yes I reviewed the patient's medical records. Imaging Data Radiologic Study: Attestation: I personally reviewed and interpreted this imaging study as follows: Imaging: Ultrasound Radiologist's impression: negative u/s legs HPI General Mode of arrival: ambulatory. Date/Time Provider Initiated Documentation: 07/17/20 12:55. Limitations to Documentation: no limitations. Information obtained by: patient. History of Present Illness 75 year old M presents to the emergency department with the chief complaint of right leg pain, described as moderate, and it has been intermittent. No relieving factors improve symptom(s), No exacerbating factors reported . Patient notes no other symptoms.. Related Data Home Medications Medication Instructions Recorded Confirmed acetaminophen 500 mg tablet 1,000 mg PO .1600, 2200 PRN tab 04/05/18 07/16/20 carboxymethylcellulose sodium 1 drp OPHTHALMIC (EYE) PRN PRN 08/14/19 07/16/20 [Refresh Tears] neomycin-bacitracn Zn-polymyx 3.5 1 applic TP BID PRN #28.3 gm 09/16/19 07/16/20 mg-400 unit-5,000 unit/gram top oint loperamide 2 mg tablet 2 mg PO QID PRN #30 tab 09/26/19 07/16/20 omeprazole 20 mg capsule,delayed 20 mg FEEDING TUBE BID #90 cap 10/05/19 07/16/20 release Bifidobacterium infantis 4 mg FEEDING TUBE DAILY 10/29/19 07/16/20 aspirin 81 mg FEEDING TUBE DAILY 10/29/19 07/16/20 melatonin 6 mg PO HS 10/29/19 07/16/20 clonazepam 0.5 mg tablet 0.5 mg PO BID PRN #15 tab 11/27/19 07/16/20 rosuvastatin 40 mg tablet 40 mg FEEDING TUBE HS #90 tab 12/14/19 07/16/20 3 mLs Saline Vials 1 vial INHALATION .5 times a day 01/02/20 07/16/20 #150 vial gabapentin 300 mg capsule 300 mg FEEDING TUBE DAILY #90 cap 01/03/20 07/16/20 nystatin 100,000 unit/gram topical 1 applic TP BID #30 gm 02/10/20 07/16/20 cream nystatin 100,000 unit/gram topical 1 applic TP BID #60 gm 02/17/20 07/16/20 powder ropinirole 1 mg tablet 1 mg FEEDING TUBE DIRECTED #120 02/28/20 07/16/20 tab alfuzosin 10 mg tablet,extended 10 mg PO DAILY #90 tab-cap 04/18/20 07/16/20 release 24 hr ferrous sulfate 220 mg (44 mg 300 mg FEEDING TUBE DAILY #473 ml 04/18/20 07/16/20 iron)/5 mL oral solution amlodipine 5 mg tablet 7.5 mg PO DAILY #135 tab 05/01/20 07/16/20 citalopram 20 mg tablet 20 mg PO DAILY #90 tab 05/18/20 07/16/20 ipratropium 0.5 mg-albuterol 3 mg 3 ml IN TID PRN #90 ml 06/21/20 07/16/20 (2.5 mg base)/3 mL nebulization soln acetylcysteine 100 mg/mL (10 %) 4 ml INHALATION Q4H ml 07/05/20 07/16/20 solution finasteride 5 mg tablet 5 mg PO DAILY #90 tab 07/11/20 07/16/20 levothyroxine 20 mcg FEEDING TUBE DAILY@1700 07/16/20 07/16/20 Previous Rx's Medication Instructions Recorded neomycin-bacitracn Zn-polymyx 3.5 1 applic TP BID PRN #28.3 gm 09/16/19 mg-400 unit-5,000 unit/gram top oint loperamide 2 mg tablet 2 mg PO QID PRN #30 tab 09/26/19 omeprazole 20 mg capsule,delayed 20 mg FEEDING TUBE BID #90 cap 10/05/19 release clonazepam 0.5 mg tablet 0.5 mg PO BID PRN #15 tab 11/27/19 rosuvastatin 40 mg tablet 40 mg FEEDING TUBE HS #90 tab 12/14/19 3 mLs Saline Vials 1 vial INHALATION .5 times a day 01/02/20 #150 vial gabapentin 300 mg capsule 300 mg FEEDING TUBE DAILY #90 cap 01/03/20 nystatin 100,000 unit/gram topical 1 applic TP BID #30 gm 02/10/20 cream nystatin 100,000 unit/gram topical 1 applic TP BID #60 gm 02/17/20 powder ropinirole 1 mg tablet 1 mg FEEDING TUBE DIRECTED #120 02/28/20 tab alfuzosin 10 mg tablet,extended 10 mg PO DAILY #90 tab-cap 04/18/20 release 24 hr ferrous sulfate 220 mg (44 mg 300 mg FEEDING TUBE DAILY #473 ml 04/18/20 iron)/5 mL oral solution amlodipine 5 mg tablet 7.5 mg PO DAILY #135 tab 05/01/20 citalopram 20 mg tablet 20 mg PO DAILY #90 tab 05/18/20 ipratropium 0.5 mg-albuterol 3 mg 3 ml IN TID PRN #90 ml 06/21/20 (2.5 mg base)/3 mL nebulization soln finasteride 5 mg tablet 5 mg PO DAILY #90 tab 07/11/20 Allergies Allergy/AdvReac Type Severity Reaction Status Date / Time pollen extracts Allergy Mild Verified 07/16/20 17:46 Tetracyclines Allergy Unknown SKIN RASH Verified 07/16/20 17:46 General CHER: 3 Review of Systems All systems reviewed & are unremarkable except as noted in HPI and below Constitutional Constitutional: Denies chills, Denies fever(s) and Denies weakness Cardiovascular Cardiovascular: Denies chest pain and Denies dyspnea Respiratory Respiratory: Denies cough and Denies dyspnea Gastrointestinal Gastrointestinal: Denies abdominal pain, Denies nausea and Denies vomiting Neurologic Neurologic: Denies weakness [facility] Medical History (Updated 07/17/20 @ 13:05 by Kalyan Barreto MD) Anemia Anxiety Blockage of feeding tube CAD (coronary artery disease) Complication of feeding tube COPD (chronic obstructive pulmonary disease) Cortical cataract of right eye Depression Hematoma following procedure Herpes zoster History of alcoholism sober x 25yrs History of tobacco use Hyperlipemia Hypertension Hypothyroidism Impingement syndrome, shoulder, left (10/10/16) -2017: PT sugg. 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 Tobacco use Surgical History 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) Sin-mullins button placed by Dr Elia Mcdonald, [facility] History of esophagogastroduodenoscopy (EGD) (~08/10/19) Daron Cas[place] [facility] [place], GERD, Reyes's esophagitis, neuromuscular dysfunction History of laryngectomy History of radical laryngectomy History of tarsorrhaphy PROCEDURES RT/LEFT HEART CARD CATH COMPLETE LARYNGECTOMY Esophagoplasty S/P AAA (abdominal aortic aneurysm) repair Status post cardiac catheterization Status post cataract extraction and insertion of intraocular lens of left eye (04/30/12) Status post cataract extraction and insertion of intraocular lens of right eye (07/12/18) Social History Smoking/Tobacco Use Status: Former Tobacco Use Tobacco: How many years used: 30 Smoking risk assessment performed?: Yes Alcohol Intake: never Drug use: Never Substance use type: does not use Current gender identity: male Do you feel safe at home: Yes Do you feel safe in your relationship?: Yes Exam Const General: no acute distress Orientation: alert HENMT Head: normal to inspection Ears: external ears normal General nose exam: external nose normal Mouth: moist mucous membranes Eyes General: appearance normal, both eyes and all related structures Neck Neck: normal visual inspection Resp Effort & Inspection: normal respiratory effort and able to speak in complete sentences Cardio Rate: regular rate Skin General skin exam: no rashes or lesions noted Neuro General: patient alert and patient oriented x3 Extrem General: normal to inspection Psych Mental Status: mental status grossly normal
== END 2020-07-17 13:14 | disposition home or self-care (01) ==
LOC: ER 13:23
PROVIDERS: Emergency Provider Emergency Medicine; PCP Family Medicine
DX: M79.604 Pain in right leg (principal); Z71.2 Person consulting for explanation of examination or test findings

== ENCOUNTER 2020-07-17 18:46 | Outpatient (CLI) | payer MEDICARE, MEDICAID, SELFPAY ==
--- NOTE | 2020-07-17 | DI.US_ITS ---
EXAM: US EXTREMITY VENOUS BI CLINICAL HISTORY: BILAT FOOT SWELLING, RT LEG PAIN. TECHNIQUE: Bilateral lower extremity venous ultrasound performed using grayscale, color-flow, and sp ectral Doppler analysis. COMPARISON: No exams were available for comparison FINDINGS: The bilateral common femoral, femoral and popliteal veins demonstrate normal compressibility, augment ation, and color Doppler. The posterior tibial veins are patent. The saphenofemoral junctions are unr emarkable. There is no evidence of a Jules's cyst. The soft tissues are unremarkable. IMPRESSION: Right: Negative for DVT Left: Negative for DVT DATA REPOSITORY:
== END 2020-07-17 18:47 | disposition home or self-care (01) ==
LOC: DI 18:50
PROVIDERS: PCP Family Medicine; Visit Provider Physician Assistant
DX: R60.0 Localized edema (principal); M79.661 Pain in right lower leg
CPT/HCPCS: 93970

== ENCOUNTER 2020-07-20 16:09 | Inpatient (IN) | payer MEDICARE, MEDICAID, SELFPAY ==
[2020-07-20] VITALS (32 sets, daily range): BP systolic 88–140; BP diastolic 55–96; PULSE 84–102; RESP 1–22; TEMP 36.2–37.2; O2SAT 84–94
--- NOTE | 2020-07-20 16:25 | W.ED.GENAD ---
Discharge Plan Discharge Details Chief Complaint: GenMedical Primary Care Provider: Jackie Prasad ED Provider: Elysia Griffin Home Meds and New Rx's Prescriptions: No Action ipratropium-albuterol 0.5 mg-3 mg(2.5 mg base)/3 mL solution for nebulization 3 ml IN TID PRN (Reason: shortness of breath or wheezing) Qty: 90 RF: 4 finasteride 5 mg tablet 5 mg PO DAILY Qty: 90 RF: 3 omeprazole 20 mg capsule,delayed release(DR/EC) 20 mg feeding tube BID Qty: 90 RF: 4 acetylcysteine 100 mg/mL (10 %) solution 4 ml inhalation Q4H RF: 0 acetaminophen [Tylenol Extra Strength] 500 mg tablet 1,000 mg PO .1600, 2200 PRNRF: 0 clonazepam 0.5 mg tablet 0.5 mg PO BID PRN (Reason: anxiety) Qty: 15 RF: 0 rosuvastatin 40 mg tablet 40 mg feeding tube HS Qty: 90 RF: 4 3 mLs Saline Vials 1 vial inhalation .5 times a day Qty: 150 RF: 4 gabapentin 300 mg capsule 300 mg feeding tube DAILY Qty: 90 RF: 4 ropinirole 1 mg tablet 1 mg feeding tube DIRECTED Qty: 120 RF: 11 alfuzosin [Uroxatral] 10 mg tablet extended release 24 hr 10 mg PO DAILY Qty: 90 RF: 3 ferrous sulfate 220 mg (44 mg iron)/5 mL solution 300 mg Feeding Tube DAILY Qty: 473 RF: 0 amlodipine 5 mg tablet 7.5 mg PO DAILY Qty: 135 RF: 2 citalopram 20 mg tablet 20 mg PO DAILY Qty: 90 RF: 4 carboxymethylcellulose sodium [Refresh Tears] 0.5 % Drops 1 drp ophthalmic (eye) PRN PRNRF: 0 melatonin 3 MG tablet 6 mg PO HS RF: 0 aspirin 81 mg Tablet,Chewable 81 mg feeding tube DAILY RF: 0 Bifidobacterium infantis 4 mg Capsule 4 mg feeding tube DAILY RF: 0 levothyroxine 112 mcg tablet 20 mcg feeding tube DAILY@1700 RF: 0 Medical Decision Making 75-year-old male presents to the ER with chief complaint of right leg pain and bilateral lower leg spasm which have increasingly gotten worse over the last 48 hours. He was seen here in the ER department 2 days ago for similar, has had multiple CT scans completed an ultrasound to rule out DVT which was negative. Past medical history of peripheral artery occlusive disease, leg pain, AAA, she does have a trace tube in place, COPD, restless leg syndrome, hypothyroidism hypertension, hyperlipidemia and neuropathy. On initial exam bilateral lower extremities pink warm dry, cap refill less than 2 seconds, he does have sensation at baseline for him on exam. He denies any recent trauma or falls he denies taking any pain medications that he knows of prior to arrival, we are awaiting his caregiver Kiara. CBC CMP, chest x-ray ordered to rule out electrolyte abnormality underlying pneumonia which may have surfaced in the last couple of days. 165: Spoke with Kiara his primary caregiver regarding patient and his care she states that he last took a Ropinirole this morning at 8:00 for pain and he does have some 5 PM meds that are due, she I did encourage her to come into the ER tonight she verbalizes understanding. She states patient normally on 6L O2. She states that she can be here about 30 to 45 minutes. Respiratory therapy here at bedside requesting to speak with his caregiver. 165: Respiratory paged for humidified o2. 1705: Patient re-positioned, oxygen up to 6 L by blow-by, O2 sat up to approximately 90%. Patient appears more comfortable at this time he states that the cramping has decreased in his right leg. RT at bedside. 180: manager personnel selection Kathrine at for discussion with patient regarding home health, I did discuss this with him as well and he does agree to it at this time and states that this may be a good thing. This has been offered to him and his caregiver Kiara in the past which has been declined by them. Patient states that after well he feels that he does not need it anymore but he is willing to explore this option now again. Pending chest x-ray, we will do a road test and make sure that he is able to walk with his walker, I also recommend trying gabapentin twice daily instead of the once daily at 10 PM for his neuropathic pain in his leg. We did give an additional gabapentin 300 mg p.o. here now. Patient appears much more comfortable at this time. Labs and chest x-ray are within normal limits. 1926: Discussed plan of care with caregiver Kiara and patient, patient is having muscle spasms and pain to his right lower leg once again he is requesting to be transferred to [facility], he does not think that he can go home in this type of pain. Discussed results of labs and chest x-ray with patient and caregiver at this time burning pain control and ambulatory dysfunction I do not see any medical reason to keep him in the hospital. We will give another 0.5 mg of Dilaudid IV and do a road test with a walker approximately 15 minutes. I did offer to send patient home with some pain medications such as tramadol or other. Home health order was signed and care management is involved. COMPARISON: CR XR PORTABLE CHEST AP 08/15/2019 7:44 AM FINDINGS: Lungs: Lungs are clear without consolidation. Pulmonary mykel: Unremarkable contours. Pleural spaces: There is no pleural effusion or pneumothorax. Heart/Mediastinum: Borderline cardiomegaly. Vasculature: There has been interval placement of an aortic stent within a tortuous aorta beginning in the mid descending aorta extending as far as the visualized upper abdomen. Bones/joints: Unremarkable. Intraperitoneal space: Visualized upper abdomen is unremarkable. IMPRESSION: No acute findings. No pneumonia 194: Hospitalist paged due to patient request for admission for intractable pain and ambulatory dysfunction. Spoke with Dr. Aguirre discussed patient case and details he does agree to come down to the department to evaluate patient. 2019: Dr. Aguirre here at bedside for patient evaluation, staff interpreter did attempt to get patient up out of bed which she is unable to do so at this time. He does agree to accept patient for admission at this time HPI General Mode of arrival: EMS. Date/Time Provider Initiated Documentation: 07/20/20 16:15. Limitations to Documentation: physical limitation. Information obtained by: patient and RN notes reviewed. HPI Narrative: 75-year-old male presents to the ER with chief complaint of right leg pain and bilateral lower leg spasm which have increasingly gotten worse over the last 48 hours. He was seen here in the ER department 2 days ago for similar, has had multiple CT scans completed an ultrasound to rule out DVT which was negative. Past medical history of peripheral artery occlusive disease, leg pain, AAA, she does have a trace tube in place, COPD, restless leg syndrome, hypothyroidism hypertension, hyperlipidemia and neuropathy. On initial exam bilateral lower extremities pink warm dry, cap refill less than 2 seconds, he does have sensation at baseline for him on exam. He denies any recent trauma or falls he denies taking any pain medications that he knows of prior to arrival, we are awaiting his caregiver Kiara. Related Data Home Medications Medication Instructions Recorded Confirmed acetaminophen 500 mg tablet 1,000 mg PO .1600, 2200 PRN tab 04/05/18 07/20/20 carboxymethylcellulose sodium 1 drp OPHTHALMIC (EYE) PRN PRN 08/14/19 07/20/20 [Refresh Tears] omeprazole 20 mg capsule,delayed 20 mg FEEDING TUBE BID #90 cap 10/05/19 07/20/20 release Bifidobacterium infantis 4 mg FEEDING TUBE DAILY 10/29/19 07/20/20 aspirin 81 mg FEEDING TUBE DAILY 10/29/19 07/20/20 melatonin 6 mg PO HS 10/29/19 07/20/20 clonazepam 0.5 mg tablet 0.5 mg PO BID PRN #15 tab 11/27/19 07/20/20 rosuvastatin 40 mg tablet 40 mg FEEDING TUBE HS #90 tab 12/14/19 07/20/20 3 mLs Saline Vials 1 vial INHALATION .5 times a day 01/02/20 07/20/20 #150 vial gabapentin 300 mg capsule 300 mg FEEDING TUBE DAILY #90 cap 01/03/20 07/20/20 ropinirole 1 mg tablet 1 mg FEEDING TUBE DIRECTED #120 02/28/20 07/20/20 tab alfuzosin 10 mg tablet,extended 10 mg PO DAILY #90 tab-cap 04/18/20 07/20/20 release 24 hr ferrous sulfate 220 mg (44 mg 300 mg FEEDING TUBE DAILY #473 ml 04/18/20 07/20/20 iron)/5 mL oral solution amlodipine 5 mg tablet 7.5 mg PO DAILY #135 tab 05/01/20 07/20/20 citalopram 20 mg tablet 20 mg PO DAILY #90 tab 05/18/20 07/20/20 ipratropium 0.5 mg-albuterol 3 mg 3 ml IN TID PRN #90 ml 06/21/20 07/20/20 (2.5 mg base)/3 mL nebulization soln acetylcysteine 100 mg/mL (10 %) 4 ml INHALATION Q4H ml 07/05/20 07/20/20 solution finasteride 5 mg tablet 5 mg PO DAILY #90 tab 07/11/20 07/20/20 levothyroxine 20 mcg FEEDING TUBE DAILY@1700 07/16/20 07/20/20 Previous Rx's Medication Instructions Recorded omeprazole 20 mg capsule,delayed 20 mg FEEDING TUBE BID #90 cap 10/05/19 release clonazepam 0.5 mg tablet 0.5 mg PO BID PRN #15 tab 11/27/19 rosuvastatin 40 mg tablet 40 mg FEEDING TUBE HS #90 tab 12/14/19 3 mLs Saline Vials 1 vial INHALATION .5 times a day 01/02/20 #150 vial gabapentin 300 mg capsule 300 mg FEEDING TUBE DAILY #90 cap 01/03/20 ropinirole 1 mg tablet 1 mg FEEDING TUBE DIRECTED #120 02/28/20 tab alfuzosin 10 mg tablet,extended 10 mg PO DAILY #90 tab-cap 04/18/20 release 24 hr ferrous sulfate 220 mg (44 mg 300 mg FEEDING TUBE DAILY #473 ml 04/18/20 iron)/5 mL oral solution amlodipine 5 mg tablet 7.5 mg PO DAILY #135 tab 05/01/20 citalopram 20 mg tablet 20 mg PO DAILY #90 tab 05/18/20 ipratropium 0.5 mg-albuterol 3 mg 3 ml IN TID PRN #90 ml 06/21/20 (2.5 mg base)/3 mL nebulization soln finasteride 5 mg tablet 5 mg PO DAILY #90 tab 07/11/20 Allergies Allergy/AdvReac Type Severity Reaction Status Date / Time pollen extracts Allergy Mild Verified 07/20/20 16:11 Tetracyclines Allergy Unknown SKIN RASH Verified 07/20/20 16:11 General Stated Complaint: GenMedical CHER: 3 Review of Systems Narrative: Constitutional: Negative for weight loss, alert and oriented, well groomed, normal body habitus, appears uncomfortable. HEENT: Denies trauma, headaches, blurry vision, nasal discharge, sore throat, trouble swallowing. Chest: Denies chest pain, palpitations, irregular rhythm, hypertension. Respiratory: He does have a tracheotomy tube and history of laryngectomy. GI: Denies abdominal pain, nausea, vomiting, diarrhea, constipation. : Denies dysuria, hematuria, flank pain, rectal bleeding. Musculoskeletal: Reports increased right thigh spasming, tenderness and muscle spasming to his bilateral lower extremities. Neuro: Denies dizziness, blurry vision, weakness, syncope, headache or facial numbness. Hematologic: Denies easy bruising, intolerance to heat or cold, hair loss. [facility] Medical History Anemia Anxiety Blockage of feeding tube CAD (coronary artery disease) Complication of feeding tube COPD (chronic obstructive pulmonary disease) Cortical cataract of right eye Depression Hematoma following procedure Herpes zoster History of alcoholism sober x 25yrs History of tobacco use Hyperlipemia Hypertension Hypothyroidism Impingement syndrome, shoulder, left (10/10/16) -2017: PT sugg. 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 Tobacco use Surgical History 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) Sin-mullins button placed by Dr Elia Mcdonald [facility] History of esophagogastroduodenoscopy (EGD) (~08/10/19) Daron Casper [place] [facility] [place] hiatal hernia, GERD, Reyes's esophagitis, neuromuscular dysfunction History of laryngectomy History of radical laryngectomy History of tarsorrhaphy PROCEDURES RT/LEFT HEART CARD CATH COMPLETE LARYNGECTOMY Esophagoplasty S/P AAA (abdominal aortic aneurysm) repair Status post cardiac catheterization Status post cataract extraction and insertion of intraocular lens of left eye (04/30/12) Status post cataract extraction and insertion of intraocular lens of right eye (07/12/18) Social History Smoking/Tobacco Use Status: Former Tobacco Use Tobacco: How many years used: 30 Smoking risk assessment performed?: Yes Alcohol Intake: never Drug use: Never Substance use type: does not use Current gender identity: male Do you feel safe at home: Yes Do you feel safe in your relationship?: Yes Exam Narrative Exam Narrative: Constitutional: Alert and oriented x3. Appears stated age. Normal body habitus. Head: Normocephalic, no trauma. Eyes: Pupils PERRLA to right side, left eye lid is drooping, at baseline. ENT: Bilateral TM's WNL, External ear normal to inspection, no mastoid TTP, swelling, or erythema, Nasal turbinates WNL, no nasal discharge. Normal dentition, Posterior pharynx WNL, no exudate. Chest: RRR, Normal S1, S2, distal pulses intact. Resp: Mild rhonchi expiratory clear after suctioning. Does have a tracheotomy in place. Abdomen: G-tube in place no surrounding erythema or swelling. Musculoskeletal: Unable to assess gait, does have intact movement noted to his lower extremities, sensation intact at baseline for patient. Skin: No suspicious rashes or lesions. Capillary refill less than 2 sec. no signs of trauma. Neurologic: No focal neuro deficits noted, alert and oriented x 3. Hematologic/Lymphatic: No ecchymosis, no lymphadenopathy. Course Vital Signs Vital signs: Vital Signs Temperature 36.2 C L 07/20/20 16:04 Pulse 94 H 07/20/20 16:04 Respiratory Rate 22 07/20/20 16:04 Blood Pressure 140/96 H 07/20/20 16:04 Pulse Oximetry 94 07/20/20 16:04 Temperature 36.2 C L 07/20/20 16:04 Temperature Source Skin 07/20/20 16:04 Pulse 94 H 07/20/20 16:04 Respiratory Rate 22 07/20/20 16:04 Blood Pressure 140/96 H 07/20/20 16:04 Blood Pressure Position Sitting 07/20/20 16:04 Pulse Oximetry 94 07/20/20 16:04 Oxygen Delivery Method Trach Collar 07/20/20 16:04 Oxygen Flow Rate 5 07/20/20 16:04 Pain Level 7 07/20/20 16:04
[2020-07-20 16:53] LABS: Abs Immature Grans 0.05 10^3/uL (0.0-0.06); Absolute Basophil Count 0.11 10^3/uL (0.0-0.2); Absolute Eosinophil Count 0.37 10^3/uL (0.0-0.7); Absolute Lymphocyte Count 1.23 10^3/uL (1.2-3.4); Absolute Monocyte Count 0.82 10^3/uL (0.1-0.8); Absolute Neutrophil Count 7.43 10^3/uL (1.2-6.7); Basophils % 1.1; Eosinophils % 3.7; HCT 43.3 % (40.0-50.0); HGB 14.4 g/dL (13.5-17.5); Immature Grans % 0.5; Lymphocytes % 12.3; MCH 30.8 pg (27.0-33.0); MCHC 33.3 % (32.0-36.0); MCV 92.5 fL (80-95); MPV 9.7 fL (8.0-11.0); Monocytes % 8.2; Neutrophils % 74.2; Nucleated RBC 0 %; Platelet Count 253 10^3/uL (130-400); RBC 4.68 10^6/uL (4.36-5.78); RDW 13.5 % (11.8-14.1); RDW-SD 45.9 fL; WBC 10.01 10^3/uL (4.4-10.8)
[2020-07-20] MEDS: HYDROmorphone 2 MG/ML VIAL 0.5 MG IVP ×3 (16:53→23:17)
[2020-07-20 17:10] LABS: ALT 25 U/L (16-63); AST 22 U/L (15-37); Albumin 3.8 g/dL (3.4-5.0); Alkaline Phosphatase 91 U/L (46-116); Anion Gap 8.7 mmol/L (3-11); BUN 21 mg/dL (7-18); Bilirubin, Total 0.5 mg/dL (0.2-1.0); CO2 30.3 mmol/L (21.0-32.0); CREATININE 0.8 mg/dL (0.70-1.30); Calcium 8.8 mg/dL (8.5-10.1); Chloride 99 mmol/L (98-107); Glucose 101 mg/dL (74-106); Potassium 3.6 mmol/L (3.5-5.1); Sodium 138 mmol/L (136-145)
--- NOTE | 2020-07-20 17:15 | DI.RAD_ITS ---
EXAM: XR CHEST 2V PA LATERAL CLINICAL HISTORY: R/O pneumonia, hx COPD, tracheostomy TECHNIQUE: 2D digital imaging was performed. COMPARISON: CR XR CHEST 2V PA LATERAL from 08/12/2019 FINDINGS: MEDIASTINUM: Normal. HEART: Normal. PULMONARY VASCULATURE: Normal. There is tortuosity of the thoracic aorta. Since the prior chest x-ra y examination, there has been placement of a stent extending from the descending thoracic aorta into the abdominal aorta. LUNGS: No focal consolidating infiltrate is present. PLEURAL SPACE: No pleural effusion or pneumothorax. BONE:No acute osseous abnormality is identified. OTHER FINDINGS:Normal. IMPRESSION: No acute pulmonary findings. DATA REPOSITORY: RADIATION DOSE DELIVERED:
[2020-07-20] MEDS: Gabapentin 300 MG CAP PO (17:40)
--- NOTE | 2020-07-20 18:50 | DI.VRAD_ITS ---
PROCEDURE INFORMATION: Exam: XR Chest, 2 Views Exam date and time: 07/20/2020 6:29 PM Age: 75 years old Clinical indication: Shortness of breath; Patient HX: HX copd, tracheostomy; Additional info: R/O pneumonia TECHNIQUE: Imaging protocol: XR of the chest Views: 2 views. Total images: 3 COMPARISON: CR XR PORTABLE CHEST AP 08/15/2019 7:44 AM FINDINGS: Lungs: Lungs are clear without consolidation. Pulmonary mykel: Unremarkable contours. Pleural spaces: There is no pleural effusion or pneumothorax. Heart/Mediastinum: Borderline cardiomegaly. Vasculature: There has been interval placement of an aortic stent within a tortuous aorta beginning in the mid descending aorta extending as far as the visualized upper abdomen. Bones/joints: Unremarkable. Intraperitoneal space: Visualized upper abdomen is unremarkable. IMPRESSION: No acute findings. No pneumonia. Dictated and Authenticated by: Anders Coburn MD. Ordering:KARIN Naidu MD
--- NOTE | 2020-07-20 19:37 | NUR.NOTE ---
Addendum entered by Traci Mills RN 07/20/20 21:59: 19:55 Dr. Aguirre at bedside, requests that patient attempt to ambulate. Patient refusing to this point. It was explained to patient multiple times by multiple people that there has to be a medical reason to stay in the hospital otherwise insurance will not pay for it and we need to attempt to ambulate him before requesting admission. Dr. Aguirre then asked patient to attempt to ambulate on his own. Patient was provided with a walker as he states he uses one at home. Patient attempted to get up to the side of the bed several times but kept grabbing his right thigh r/t leg spasm. Ambulation trial failed and per Dr. Aguirre he will admit him. Original Note: Nursing Note:Patient requesting more pain medication states pain 06/24. Requesting to see the MD in charge of the ER now. Want's to be admitted. Provider notified will talk to the hospitalist.
--- NOTE | 2020-07-20 20:19 | W.PM.HP.N ---
Date of service: 07/20/20 Time of Service: 20:19 Assessment and Plan Assessment and plan (1) Leg pain, right: Status: Acute Assessment and plan: Not sure if this is spasm, neuropathic; does not appear to be vascular and probably not a local lesion. For now I would trial anti-spasmodic along with prn analgesics, and will consult PT in AM. Depending on progress may wish to further evaluate with MRI of spine, and perhaps the thigh itself. History of Present Illness History of Present Illness Chief Complaint: thigh pain Narrative: 75 male with h/o PVD and RLS. This is third ER visit in past week for right thigh pain. This is apparently a more or less chronic issue but has become acutely worse over this past week. W/U has included negative CTA abdomen and RLE and neg U/S RLE. Pain seems related to activity, or more precisely to attempts to move the leg, seems better at rest, though even then apparently occasionally may flare. Here in ER received Neurontin and Dilaudid (cumulatively 1 mg IV) with modest effect. However attempts to get him up to walk were a failure, could not even navigat to get out of stretcher.. He is admitted for further eval and ,management. Review of Systems All systems reviewed & are unremarkable except as noted in HPI and below PFSH Medical History Anemia Anxiety Blockage of feeding tube CAD (coronary artery disease) Complication of feeding tube COPD (chronic obstructive pulmonary disease) Cortical cataract of right eye Depression Hematoma following procedure Herpes zoster History of alcoholism sober x 25yrs History of tobacco use Hyperlipemia Hypertension Hypothyroidism Impingement syndrome, shoulder, left (10/10/16) -2016: PT sugg. 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 MRSA pneumonia Neurotrophic cornea of left eye Nuclear sclerotic cataract of right eye Peripheral neuropathy (02/21/15) Post herpetic neuralgia Posterior subcapsular age-related cataract, right eye Primary malignant neoplasm of oropharynx ; [place]last [place] [facility] [place] ROR: 2000 + 2007 Pulmonary nodule, right (05/30/15) on chest CT -2015: stable Restless leg syndrome (02/21/15) Sessile colonic polyp 12/22/16-SESSILE SERRATED ADENOMA Tobacco use Surgical History 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) Sin-mullins button placed by Dr Elia Mcdonald, [facility] History of esophagogastroduodenoscopy (EGD) (~08/10/19) Daron Casper [place] [facility] [place] hiatal [place], GERD, Reyes's esophagitis, neuromuscular dysfunction History of laryngectomy History of radical laryngectomy History of tarsorrhaphy PROCEDURES RT/LEFT HEART CARD CATH COMPLETE LARYNGECTOMY Esophagoplasty S/P AAA (abdominal aortic aneurysm) repair Status post cardiac catheterization Status post cataract extraction and insertion of intraocular lens of left eye (04/30/12) Status post cataract extraction and insertion of intraocular lens of right eye (07/12/18) Social History Smoking/Tobacco Use Status: Former Tobacco Use Tobacco: How many years used: 30 Smoking risk assessment performed?: Yes Alcohol Intake: never Drug use: Never Substance use type: does not use Current gender identity: male Do you feel safe at home: Yes Do you feel safe in your relationship?: Yes Meds Home Medications and Allergies Home Medications Medication Instructions Recorded Confirmed Type acetaminophen 500 mg tablet 1,000 mg PO .1600, 2200 PRN tab 04/05/18 07/20/20 History carboxymethylcellulose sodium 1 drp OPHTHALMIC (EYE) PRN PRN 08/14/19 07/20/20 History [Refresh Tears] omeprazole 20 mg capsule,delayed 20 mg FEEDING TUBE BID #90 cap 10/05/19 07/20/20 Rx release Bifidobacterium infantis 4 mg FEEDING TUBE DAILY 10/29/19 07/20/20 History aspirin 81 mg FEEDING TUBE DAILY 10/29/19 07/20/20 History melatonin 6 mg PO HS 10/29/19 07/20/20 History clonazepam 0.5 mg tablet 0.5 mg PO BID PRN #15 tab 11/27/19 07/20/20 Rx rosuvastatin 40 mg tablet 40 mg FEEDING TUBE HS #90 tab 12/14/19 07/20/20 Rx 3 mLs Saline Vials 1 vial INHALATION .5 times a day 01/02/20 07/20/20 Rx #150 vial gabapentin 300 mg capsule 300 mg FEEDING TUBE DAILY #90 cap 01/03/20 07/20/20 Rx ropinirole 1 mg tablet 1 mg FEEDING TUBE DIRECTED #120 02/28/20 07/20/20 Rx tab alfuzosin 10 mg tablet,extended 10 mg PO DAILY #90 tab-cap 04/18/20 07/20/20 Rx release 24 hr ferrous sulfate 220 mg (44 mg 300 mg FEEDING TUBE DAILY #473 ml 04/18/20 07/20/20 Rx iron)/5 mL oral solution amlodipine 5 mg tablet 7.5 mg PO DAILY #135 tab 05/01/20 07/20/20 Rx citalopram 20 mg tablet 20 mg PO DAILY #90 tab 05/18/20 07/20/20 Rx ipratropium 0.5 mg-albuterol 3 mg 3 ml IN TID PRN #90 ml 06/21/20 07/20/20 Rx (2.5 mg base)/3 mL nebulization soln acetylcysteine 100 mg/mL (10 %) 4 ml INHALATION Q4H ml 07/05/20 07/20/20 History solution finasteride 5 mg tablet 5 mg PO DAILY #90 tab 07/11/20 07/20/20 Rx levothyroxine 20 mcg FEEDING TUBE DAILY@1700 07/16/20 07/20/20 History Allergies Allergy/AdvReac Type Severity Reaction Status Date / Time pollen extracts Allergy Mild Verified 07/20/20 16:11 Tetracyclines Allergy Unknown SKIN RASH Verified 07/20/20 16:11 Exam Narrative Exam Narrative: 104/71, 93, 36.2, 20, 91%. HEENT atraumatic; neck trach in place; lunhgs clear; heart RRR; abdomen soft and NT; extremities w/o edema, right DP pulse intact; no swelling or redness RLE, no tenderness, no pain with PROM of hip or knee, and none with resisted flexion of hip nor extension of knee; neuro Ox3, motor 5/5 grossly, intact light touch DTR LES 1+/=, toes downgoing. When I attempt to ambulate he develops sudden pain in thigh and collapses back into stretcher, holding RLE flexed towards torso Results Labs Result diagrams: 07/20/20 16:40 07/20/20 16:40 Labs: Laboratory Results - last 24 hr 07/20/20 07/20/20 16:40 16:40 WBC 10.01 RBC 4.68 Hgb 14.4 Hct 43.3 MCV 92.5 MCH 30.8 MCHC 33.3 RDW 13.5 Plt Count 253 MPV 9.7 Immature Gran % 0.5 Neutrophils % 74.2 Lymphocytes % 12.3 Monocytes % 8.2 Eosinophils % 3.7 Basophils % 1.1 Nucleated RBC % 0 Absolute Neutrophils 7.43 H Absolute Lymphocytes 1.23 Absolute Monocytes 0.82 H Absolute Eosinophils 0.37 Absolute Basophils 0.11 Sodium 138 Potassium 3.6 Chloride 99 Carbon Dioxide 30.3 Anion Gap 8.7 BUN 21 H Creatinine 0.8 Estimated GFR/1.73 m2 >= 60.00 Glucose 101 Calcium 8.8 Total Bilirubin 0.5 AST 22 ALT 25 Alkaline Phosphatase 91 Total Protein 8.0 Albumin 3.8 Last Vital Signs Temp 36.2 C L 07/20/20 16:04 Pulse 93 H 07/20/20 18:45 Resp 20 07/20/20 17:08 BP 104/57 L 07/20/20 18:45 Pulse Ox 91 L 07/20/20 18:45 COVID-19 Screening Have you, or household traveled for leisure in last 14 days?: No Had IN PERSON contact w/suspected or confirmed C-19 person: No
[2020-07-20] MEDS: rOPINIRole 1 MG TAB 2 MG NG (23:16)
[2020-07-20] MEDS: Normal Saline Flush 10 ML SYR IVP (23:17)
[2020-07-20] MEDS: Sodium Chloride 0.9% for Inhalation 3 ML VIAL UPD (23:18)
[2020-07-20] MEDS: Rosuvastatin 10 MG TAB 40 MG NG (23:48)
[2020-07-20] MEDS: Acetylcysteine 20% *ORAL/INHALED* 6000 MG/30 ML VIAL 400 MG IH (23:50)
[2020-07-21] VITALS (11 sets, daily range): BP systolic 99–110; BP diastolic 60–68; PULSE 66–96; RESP 2–20; TEMP 34–37; O2SAT 93–96
--- NOTE | 2020-07-21 | DI.CT_ITS ---
EXAM: CT THORACIC LUMBAR SPINE WO CLINICAL HISTORY: inability to mobilize limb. TECHNIQUE: Imaging Protocol: Axial computed tomography images with coronal and sagittal reformatted images were created and reviewed COMPARISON: CT LUMBAR SPINE WITH CONTRAST from 01/24/[address] THORAX ABD/PEL CTA from 07/12/[address] THORAX ABD/PEL CTA from 07/12/[address] THORAX ABD/PEL CTA from 10/29/[address] ABD AORTA CTA W RUNOFF from 07/16/[address] ABD AORTA CTA W RUNOFF from 07/16/2020 FINDINGS: Thoracic spine: There is again seen a compression fracture of the T7 vertebral body. There is loss of height of the vertebral body noted. This is unchanged when compared to CT scans from 07/12/2019, 10/29/2027, and 07/16. There is also stable compression fracture deformity of T12. There is marked loss of height o f the vertebral body noted. Stable retropulsion of the superior endplate is noted into the spinal ca nal. There is a persistent stable kyphotic deformity present. No new compression fractures are seen . The bones are osteopenic. Degenerative changes are present throughout the thoracic spine. Emphys ematous changes are seen in the lungs. There is a worsening infiltrate in the left lower lobe compar ed to 07/16/2020. Lumbar spine: There is a stable L1 compression fracture deformity with moderate loss of height and stable retropuls ion of the superior endplate into the spinal canal. No new fractures or subluxations are seen in the lumbar spine. Degenerative changes are seen in the lumbar spine. The bones are osteopenic. An aor toiliac stent is again noted. IMPRESSION: Stable T7, T12 and L1 compression fractures compared to examinations dating back to 07/12/2019. No ne w thoracic or lumbar spine fractures are seen. MRI might be considered for evaluation of spinal cord involvement. RADIATION DOSE DELIVERED: 1,133.58mGy.cm Total DLP DATA REPOSITORY: All CT scans at this facility are submitted to the National Radiology Data Registry (NRDR) Dose Index Registry (DIR) with the [employer] (ACR). RADIATION OPTIMIZATION: All CT scans at this facility use at least one of these dose optimization te chniques: automated exposure control; mA and/or kV adjustment per patient size (includes targeted exa ms where dose is matched to clinical indication); or iterative reconstruction.
--- NOTE | 2020-07-21 | DI.RAD_ITS ---
EXAM: XR HIP RT AP LAT ONLY CLINICAL HISTORY: severe hip pain, inability to straight leg lift. TECHNIQUE: 2D digital imaging was performed. COMPARISON: No exams were available for comparison FINDINGS: BONES: No acute fracture is present. No bony destructive lesion is seen. JOINTS: There is mild joint space narrowing and subchondral sclerosis in the right hip. SOFT TISSUE: Atherosclerosis is present. The distal aspect of a vascular stent is noted in the pelvi s. IMPRESSION: Degenerative changes in the right hip. No acute fracture or dislocation. DATA REPOSITORY: RADIATION DOSE DELIVERED:
[2020-07-21] MEDS: Acetylcysteine 20% *ORAL/INHALED* 6000 MG/30 ML VIAL 400 MG IH ×2 (04:06→21:16)
[2020-07-21] MEDS: HYDROmorphone 2 MG/ML VIAL 0.5 MG IVP (04:52)
[2020-07-21] MEDS: Normal Saline Flush 10 ML SYR IVP ×3 (04:53→18:10)
[2020-07-21] MEDS: Sodium Chloride 0.9% for Inhalation 3 ML VIAL UPD ×2 (06:00→10:04)
--- NOTE | 2020-07-21 07:54 | PDOC.CMIN ---
- If Service Date Differs Date of service: 07/21/20 Time of Service: 07:54 Care Management Initial Assess REASON FOR HOSPITALIZATION:: Thigh pain. PAST MEDICAL HISTORY/PAST SURGICAL HISTORY:: Medical History: Anemia, Anxiety, Blockage of feeding tube, CAD (coronary artery disease), Complication of feeding tube, COPD (chronic obstructive pulmonary disease), Cortical cataract of right eye, Depression,. Hematoma following procedure, Herpes zoster, History of alcoholism -. sober x 25 yrs, History of tobacco use, Hyperlipemia, Hypertension,. Hypothyroidism, Impingement syndrome, shoulder, left (10/10/16) - -2016: PT sugg. imaging: discuss at fup, Laryngeal cancer, Left corneal scar with opacity, MRSA pneumonia, Neurotrophic cornea of left eye, Nuclear sclerotic cataract of right eye, Peripheral neuropathy (02/21/15), Post herpetic neuralgia, Posterior subcapsular age-related cataract, right eye,. Primary malignant neoplasm of oropharynx - ; [place] [facility] [place]: 1999 [place] 2007, Pulmonary nodule, right (05/30/15) - on chest CT -2015: stable, Restless leg syndrome (02/21/15), Sessile colonic polyp - 12/22/16-SESSILE SERRATED ADENOMA, and Tobacco use. Surgical History: Colonoscopy - MAC (12/22/16), EGD - MAC (07/06/17),. 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 History of tarsorrhaphy - PROCEDURES RT/LEFT HEART CARD CATH. COMPLETE LARYNGECTOMY, Esophagoplasty, S/P AAA (abdominal aortic aneurysm) repair, Status post cardiac catheterization, Status post cataract extraction and insertion of intraocular lens of left eye (04/30/12),. and Status post cataract extraction and insertion of intraocular lens of right eye (07/12/18). PREVIOUS FUNCTIONAL STATUS/SOCIAL/FAMILY SUPPORTS:: Pineda lives in [place] with Kiara, his cement cutter and caregiver. 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 Pineda states he is independent with bathing and dressing himself and has the support of Kiara when needed. His nephew, Harsha, is also a source of support for him. CURRENT FUNCTIONAL STATUS:: Pineda is laying in bed when CM comes to meet with him. He is pleasant, talkative, and remembers CM from his days working at [employer] where we were co-workers for a number of years. Pineda talks about the excruciating pain he has in his right hip and leg and shares imaging done today revealed compression fractures in his back. He reports he will be going down and [place] [facility] [place]. CM will continue to follow. ADVANCE DIRECTIVES:: On file; nephew Harsha Nevarez is listed as Health Care Agent. Has patient been provided with info about the portal/API?: Yes Did the patient sign up for the portal?: Yes (Previously enrolled) CODE STATUS:: Full Code INSURANCE COVERAGE / FINANCIAL ISSUES:: Medicaid and Medicare. CURRENT HOME/COMMUNITY SERVICES/EQUIPMENT:: Pineda's live-in cement cutter, Kiara, is his caregiver. He owns a FWW and a cane, has a tracheostomy and uses an augmentative speech device to communicate. Pineda is also on 6L of O2 at home. [employer] supplies his oxygen. PRIMARY CARE PHYSICIAN:: Jackie Prasad MD POTENTIAL DISCHARGE NEEDS:: To be determined based on MRI findings and course of treatment. PATIENT/FAMILY EDUCATION NEEDS:: Discharge instructions, limitations, follow up plan of care including Ask Me Three and self management. ANTICIPATED BARRIERS TO DISCHARGE:: No anticipated barriers at this time. TRANSPORTATION:: To be determined based on discharge plan. PLAN:: Plan remains to be determined at this time. CM talked briefly with Pineda about the potential need for short-term rehab or Home Health in-home services. Pineda is willing to consider both. This will be further discussed with him as the course of treatment becomes clearer over the next few days. CM will continue to support patient and discharge planning needs.
[2020-07-21] MEDS: Ferrous Sulfate 44 MG/ML Liquid 300 MG NG (09:02)
[2020-07-21] MEDS: Baclofen 10 MG TAB NG ×3 (09:04→20:34)
[2020-07-21] MEDS: amLODIPine 5 MG TAB 7.5 MG PO (09:04)
[2020-07-21] MEDS: Omeprazole 20 MG CAPCR NG ×2 (09:04→20:34)
[2020-07-21] MEDS: Gabapentin 300 MG CAP NG (09:04)
[2020-07-21] MEDS: Finasteride 5 MG TAB PO (09:05)
[2020-07-21] MEDS: Aspirin 81 MG CHEW NG (09:05)
[2020-07-21] MEDS: Citalopram 20 MG TAB PO (09:05)
[2020-07-21] MEDS: Enoxaparin 40 MG/0.4 ML SYR SC (09:05)
--- NOTE | 2020-07-21 09:35 | PT.INIE ---
Date of service: 07/21/20 Time of Service: 09:35 PT Notes Visit Reasons: THIGH PAIN Inpatient Physical Therapy Evaluation Date: 07/21/20 Referring Doctor: Dr. Jhonny Aguirre PT Orders: PT CONSULT: Right leg pain Precautions: Fall precautions Patient Profile/Admitting Diagnosis: 75 male with h/o PVD and RLS. This is third ER visit in past week for right thigh pain. Patient has undergone multiple diagnostics including negative CTA abdomen and RLE and neg U/S RLE. Pain seems related to activity, or more precisely to attempts to move the leg, seems better at rest, though even then apparently occasionally may flare. Patient states that he feels as though symptoms are worsening. He has episodes of pain when moving his leg whether he is sitting laying or standing. At times he can have 0 pain but the intensify to what he says 05/24. Positive cough sneeze, negative bowel or bladder dysfunction. Overall feels as though symptoms are intensifying with regards to frequency and intensity. He denies any trauma. Symptoms started insidiously. PMHX: Medical History Anemia Anxiety Blockage of feeding tube CAD (coronary artery disease) Complication of feeding tube COPD (chronic obstructive pulmonary disease) Cortical cataract of right eye Depression Hematoma following procedure Herpes zoster History of alcoholism sober x 25yrs History of tobacco use Hyperlipemia Hypertension Hypothyroidism Impingement syndrome, shoulder, left (10/10/16) -2016: PT sugg. 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 MRSA pneumonia Neurotrophic cornea of left eye Nuclear sclerotic cataract of right eye Peripheral neuropathy (02/21/15) Post herpetic neuralgia Posterior subcapsular age-related cataract, right eye Primary malignant neoplasm of oropharynx ; [place] [facility] [place]: 2000 + 2007 Pulmonary nodule, right (05/30/15) on chest CT -2015: stable Restless leg syndrome (02/21/15) Sessile colonic polyp 12/22/16-SESSILE SERRATED ADENOMA Tobacco use Surgical History 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 History of esophagogastroduodenoscopy (EGD) (~08/10/19) [place]aron Casper [place] [facility] [place], G[place]D, Reyes's esophagitis, neuromuscular dysfunction History of laryngectomy History of radical laryngectomy History of tarsorrhaphy PROCEDURES RT/LEFT HEART CARD CATH COMPLETE LARYNGECTOMY Esophagoplasty S/P AAA (abdominal aortic aneurysm) repair Status post cardiac catheterization Status post cataract extraction and insertion of intraocular lens of left eye (04/30/12) Status post cataract extraction and insertion of intraocular lens of right eye (07/12/18) Social History/Home Situation: Patient lives with significant other in a split-level home with 4 steps to enter and a rail on the right side going up. Patient has an additional 7 steps with a rail on the right going up to negotiate inside the house to get to the living room where his bedroom is. Patient also has a nephew who is able to help as needed. He is independent with functional mobility performance. Significant other takes charge of preparing meals for patient. Equipment Owned/DME: FWW, augmentative speech device, oxygen supplementation Subjective: Patient consented to a physical therapy evaluation. He reports that he has not fallen in the past 12 months. He expressed his concerns about his symptoms worsen. He states that he is comfortable when laying still in bed but as soon as he starts to move he has symptom exacerbation. Objective: General Observation: Patient seen lying in bed with HOB 25 degres with oxygen supplementation via tracheostomy tube. Patient has an augmentative speech device in use. Mental Status: Alert and oriented as to person, place, time, and purpose Pain: 0/10 at time of start of initial evaluation patient in bed. Despite 12/10 per his report performing bed mobility, right lower motion, and transfers ambulation ROM: Right Upper Extremity: Shoulder Flexion WFL. Shoulder abduction WFL. Elbow flexion WFL. Wrist flexion WFL. Opening and closing of hand WFL. Left Upper Extremity: Shoulder Flexion WFL. Shoulder abduction WFL. Elbow flexion WFL. Wrist flexion WFL. Opening and closing of hand WFL. Right Lower Extremity: Hip flexion limited to 90's actively secondary to pain reproduction. Hip abduction WFL. Knee flexion WFL. Ankle dorsiflexion WFL. Ankle plantarflexion WFL. Left Lower Extremity: Hip flexion WFL. Hip abduction WFL. Knee flexion WFL. Ankle dorsiflexion WFL. Ankle plantarflexion WFL. Strength: Right Upper Extremity: Shoulder flexors 4/5. Shoulder abductors 4/5. Elbow flexors 4/5. Elbow extensors 4/5. Cream Maker strong. Left Upper Extremity: Shoulder flexors 4/5. Shoulder abductors 4/5. Elbow flexors 4/5. Elbow extensors 4/5. Cream Maker strong. Right Lower Extremity: Hip flexors 4-/5. Hip abductors 4/5. Knee flexors 4/5. Knee extensors 4/5. Ankle dorsiflexors 5/5. Ankle plantarflexors 5/5. Left Lower Extremity:Hip flexors 4-/5. Hip abductors 4/5. Knee flexors 4/5, knee extension 4/5 L knee on knee immobilizer. Ankle dorsiflexors 4-/5. Ankle plantarflexors 4-/5. Sensation: Patient reports intact sensation to light touch throughout bilateral lower extremities. Myotomal distribution within functional limits with the exception of right hip flexion limited due to pain Bed Mobility/Transfers: Supine?sit: Min assist x1 with significant pain reproduction. Patient does use trapeze assist. Sit?stand: Min assist x1 to front wheeled walker Stand?sit: On front wheeled walker standby assist Sit?supine: Min assist primarily for lower extremity placement on bed Gait: 5 feet limited due to pain. This is with contact-guard and use of front wheeled walker Balance: Static Sitting: Good Dynamic Sitting: Good Static Standing: Fair Dynamic Standing: Fair Special Tests: Mobility Limitations Standardized Measure [facility] 6 clicks Basic Mobility Inpatient Short Form: Raw Score:16 Standardized Score: 40.78 CMS Score: 54.16 Positive straight leg raise right lower extremity at 30 degrees. Positive seated slump test right lower extremity. Informed Consent/Education: Patient instructed in purpose of PT consult and plan of care. Assessment: Patient is a 75 year old male referred to physical therapy services with the diagnosis of right thigh pain. Patient presents with clinical signs and symptoms consistent with right lower extremity radiculopathy likely stemming from nerve root impingement, as demonstrated by the following impairment level findings: Joint mobility, motor function, muscle performance and range of motion associated with DDD/DJD resulting in neuroforaminal compromise. Impairments are contributing to the following functional limitations: AMPAC score. Patient demonstrates symptom reproduction with dural tension testing with straight leg raise and slump test. Given region of pain suspect L3/L4 involvement. Patient presents with clinical signs and symptoms consistent with current/admitting diagnoses that have resulted to mobility limitations, gait instability, generalized weakness, and impairment of motor control as demonstrated by the following impairment level findings: 1. Decreased strength to right lower extremity 2. Impaired standing balance 3. Right lower extremity radiculopathy Impairments are contributing to the following functional limitations: 1. Inability to safely ambulate without assistive device 2. Increase completion time for mobility ADL performance 3. Increased fall risk 4. Inability to negotiate steps alone safely Patient is assessed as a [id number] moderate complexity based on the following: History: 75 year-old male with impairment level findings, functional limitations, and past medical history as indicated above Examination: Demonstrable impairment in strength, balance, and mobility level with underlying impairments and functional limitations as documented above Presentation:Evolving Decision Makin moderate complexity Goals: Goals X1 week 1. Supine-Sit: Independent 2. Sit-Supine: Independent 3. Sit-Stand: Independent 4. Stand-Sit : Independent 5. Bed-Chair: Independent 6. Chair-Bed: Independent 7. Gait: 150 feet with front wheel walker standby assist 8. Stairs: 4 stairs with railing standby assist Plan of Care/Treatment Plan: 1-2x/day, 7 days/week x 1 week. Plan of care has been reviewed with the PUBLIC SPEAKING PROFESSOR providing the service under Physical Therapy direction. Initiate Physical Therapy intervention for strengthening, bed mobility, transfers, gait, stairs, balance training, use of assistive device. DISCHARGE RECOMMENDATIONS: Home health PT upon discharge from [facility] when medically stable TREATMENT CODE/TIME: [id number] initial evaluation. 9:00 to 930. Disclaimer: This note was created using [employer] voice recognition software. It was reviewed for major content. However, there may be multiple small discrepancies and errors due to the voice recognition aspects of the software.
[2020-07-21] MEDS: Albuterol/Ipratropium 3 ML UPD VIAL UPD ×2 (10:03→20:35)
[2020-07-21] MEDS: predniSONE 20 MG TAB 60 MG PO (11:02)
[2020-07-21] MEDS: oxyCODONE 5 MG TAB NG (11:03)
[2020-07-21] MEDS: diazePAM 5 MG TAB PO (11:30)
[2020-07-21] MEDS: Lactobacillus Acidophilus CAP 1 CAP NG (12:25)
[2020-07-21] MEDS: Diclofenac 1% Gel 100 GM TUBE TP ×2 (12:25→21:14)
--- NOTE | 2020-07-21 12:28 | PGE_ITS ---
Date of Service Date of service: 07/21/20 Time of Service: 12:29 Assessment and Plan Assessment and plan (1) Leg pain, right: Start date: 07/21/20 Start time: 13:15 Status: Acute Assessment and plan: After evaluation by PT unable to do straight leg raise, CT obtain IMPRESSION: 1. Compression fracture of T7 with moderate loss of height. There is a compression fracture of T12 with severe loss of height and 6-7 mm of retropulsion. There is a fracture line coursing through the superior endplate T12, suspicious of acute to subacute to region. MRI might be considered to document stability of the lower thoracic spinal cord or conus. 2. Mild nodular opacities in the left lung base could reflect mild infiltrate. Rectal tone intact. Severe pain with spasm to thigh. Given 60 mg prednisone PO, analgesics for pain, will bladder scan and monitor for constipation which can compress spine. Bowel regimen, straight cath as needed. Awaiting call from [facility] for further management Subjective Subjective Patient reports: other Interval history since last seen: Continues to have leg pain with spasm. PT worked with patient assessment as follows: Patient demonstrates symptom reproduction with dural tension testing with straight leg raise and slump test. Given region of pain suspect L3/L4 involvement. Given findings by PT, rectal tone assessed, patient had great rectal tone, CT revealing IMPRESSION: 1. Compression fracture of T7 with moderate loss of height. There is a compression fracture of T12 with severe loss of height and 6-7 mm of retropulsion. There is a fracture line coursing through the superior endplate T12, suspicious of acute to subacute to region. MRI might be considered to document stability of the lower thoracic spinal cord or conus. 2. Mild nodular opacities in the left lung base could reflect mild infiltrate. Will consult [facility] and push imaging to radiology at [facility]. Patient continues to be in severe pain. Will medicate Exam Narrative Exam Narrative: . HEENT atraumatic; neck trach in place; lungs with rhonchi in bases; heart RRR; abdomen soft and NT, bsx 4; extremities w/o edema, right DP pulse intact; no swelling or redness RLE, no tenderness, no pain with PROM of hip or knee, and none with resisted flexion of hip nor extension of knee; neuro Ox3, motor 5/5 grossly, intact light touch DTR LES 1+/=, toes downgoing. When I attempt to ambulate he develops sudden pain in thigh and collapses back into stretcher, holding RLE flexed towards torso unable to straight leg raise greater than 30 degrees or less when trying severe pain with spasm. Objective Last Vital Signs Temp 36.9 C 07/21/20 07:40 Pulse 66 07/21/20 07:40 Resp 19 07/21/20 07:40 BP 99/61 L 07/21/20 07:40 Pulse Ox 95 07/21/20 07:40 Laboratory Results - last 24 hr 07/20/20 07/20/20 16:40 16:40 WBC 10.01 RBC 4.68 Hgb 14.4 Hct 43.3 MCV 92.5 MCH 30.8 MCHC 33.3 RDW 13.5 Plt Count 253 MPV 9.7 Immature Gran % 0.5 Neutrophils % 74.2 Lymphocytes % 12.3 Monocytes % 8.2 Eosinophils % 3.7 Basophils % 1.1 Nucleated RBC % 0 Absolute Neutrophils 7.43 H Absolute Lymphocytes 1.23 Absolute Monocytes 0.82 H Absolute Eosinophils 0.37 Absolute Basophils 0.11 Sodium 138 Potassium 3.6 Chloride 99 Carbon Dioxide 30.3 Anion Gap 8.7 BUN 21 H Creatinine 0.8 Estimated GFR/1.73 m2 >= 60.00 Glucose 101 Calcium 8.8 Total Bilirubin 0.5 AST 22 ALT 25 Alkaline Phosphatase 91 Total Protein 8.0 Albumin 3.8
--- NOTE | 2020-07-21 12:39 | DI.VRAD_ITS ---
PROCEDURE INFORMATION: Exam: CT Thoracic Spine Without Contrast Exam date and time: 07/21/2020 10:14 AM Age: 75 years old Clinical indication: Other: Inability to mobilize limb TECHNIQUE: Imaging protocol: Computed tomography images of the thoracic spine without contrast. Radiation optimization: All CT scans at this facility use at least one of these dose optimization techniques: automated exposure control; mA and/or kV adjustment per patient size (includes targeted exams where dose is matched to clinical indication); or iterative reconstruction. COMPARISON: No relevant prior studies available. FINDINGS: Tubes, catheters and devices: There is a tracheostomy tube noted tube lies at the level of the clavicle. There is mild debris within the trachea. Vertebrae: There is a compression fracture of T7 with moderate loss of height. There is a compression fracture of T12 with moderate to marked loss of height and 6-7 mm retropulsion of the superior endplate. Facets are normally located. No definite fracture of the posterior elements. There is mild kyphotic deformity, centered at T11-T12 due to compression fracture of T12. Discs/Spinal canal/Neural foramina: There is moderate narrowing of intervertebral disc space at C5-C6 with prominent posterior osteophyte disc complex. Other bones/joints: Visualized bones are markedly demineralized. Posterior elements are intact. Soft tissues: Unremarkable. Vasculature: There are heavy calcifications of arch of aorta . There is calcification of the proximal left subclavian artery brachycephalic artery and proximal bilateral common carotid arteries. Lungs: There is mild peripheral and basilar reticulation of the lungs. There are mild reticulonodular interstitial thickening in the left lower lung lobe. Heart: Heart is enlarged with diffuse coronary artery calcifications. There are calcifications of the aortic valve. IMPRESSION: 1. Compression fracture of T7 with moderate loss of height. There is a compression fracture of T12 with severe loss of height and 6-7 mm of retropulsion. There is a fracture line coursing through the superior endplate T12, suspicious of acute to subacute to region. MRI might be considered to document stability of the lower thoracic spinal cord or conus. 2. Mild nodular opacities in the left lung base could reflect mild infiltrate. PROCEDURE INFORMATION: Exam: CT Lumbar Spine Without Contrast Exam date and time: 07/21/2020 10:14 AM Age: 75 years old Clinical indication: Other: Inability to mobilize limb TECHNIQUE: Imaging protocol: Computed tomography images of the lumbar spine without contrast. Radiation optimization: All CT scans at this facility use at least one of these dose optimization techniques: automated exposure control; mA and/or kV adjustment per patient size (includes targeted exams where dose is matched to clinical indication); or iterative reconstruction. COMPARISON: No relevant prior studies available. FINDINGS: Vertebrae: There is compression fracture of T12 with severe loss of height and 6-7 mm of retropulsion of superior endplate. There is a fracture line coursing through the superior endplate which breaches the posterior cortex. There is kyphotic deformity noted at T11-T12 due to the compression fracture of T12. In addition, there is a compression fracture of L1 with moderate to severe loss of height and 7 mm of retropulsion of the superior endplate. Facets are normally located. No definite fracture of the posterior elements. There are surgical changes in the left upper quadrant. Discs/Spinal canal/Neural foramina: Intervertebral disc spaces are normal. There are multilevel mild disc bulges in the lumbar spine without high-grade spinal canal stenosis. Other bones/joints: The bones are markedly demineralized. Posterior elements are intact. Stomach and bowel: There are foci of diverticulosis in the large bowel without signs of acute inflammation. Vasculature: There is aneurysm of the descending thoracic and abdominal aorta. There is a stent graft in place in the thoracic and abdominal aorta which extend to the bilateral common iliac arteries. There is a stent noted in the bilateral renal, celiac trunk and superior mesenteric artery. The widest diameter abdominal aortic aneurysm is 5.2 x 5.6 cm. There is mild draping of the right posterolateral wall of the infrarenal abdominal aortic aneurysm. There is a hypodensity noted within abdominal aortic aneurysm (image 59 series 5 and image 57 series 5, probably calcified mural thrombus. The evaluation of endograft leak is limited due to lack of administration of IV contrast. Soft tissues: Unremarkable. IMPRESSION: Osteoporotic compression fracture of T12 with severe loss of height and 6-7 mm retropulsion of superior endplate. Osteoporotic compression fracture of L1 with moderate to severe loss of height and 7 mm retropulsion of the superior endplate. These fractures with retropulsion might be causing [id number] spinal canal stenosis. MRI might be considered for stability of the lower thoracic and conus spinal cord. Dictated and Authenticated by: Kunal Longo MD. Ordering:JEANNTETE Handley MD
[2020-07-21] MEDS: HYDROmorphone 2 MG/ML VIAL 1 MG IVP ×2 (12:58→21:57)
--- NOTE | 2020-07-21 15:10 | DI.VRAD_ITS ---
PROCEDURE INFORMATION: Exam: XR Right Hip with Pelvis when Performed Exam date and time: 07/21/2020 2:56 PM Age: 75 years old Clinical indication: Patient HX: Unable to raise right hip. Severe right hip pain. TECHNIQUE: Imaging protocol: XR Right hip with pelvis when performed. Views: 2 or 3 views. COMPARISON: CT THORAX ABD/PEL CTA 10/29/2019 2:28 AM FINDINGS: Bones/joints: There is mild subchondral sclerosis. There is no acute fracture or dislocation. Soft tissues: Unremarkable. Vasculature: There are vascular calcifications. There is a stent noted in the region of the right iliac artery. IMPRESSION: Mild degenerative changes in the right hip joint. No acute fracture or dislocation. Dictated and Authenticated by: Kunal Longo MD. Ordering:JEANNETTE Handley MD
[2020-07-21] MEDS: Docusate Sodium 100 MG CAP PO ×2 (15:16→20:34)
[2020-07-21] MEDS: Levothyroxine 112 MCG TAB NG (17:08)
[2020-07-21] MEDS: Polyethylene Glycol 3350 17 GM PACKET NG (20:35)
--- NOTE | 2020-07-21 20:58 | W.ORTHOCONSU ---
Date of service: 07/21/20 Time of Service: 18:20 History of Present Illness History of Present Illness Chief Complaint: Right thigh pain Narrative: 75-year-old male with multiple ER visits over the past week and subsequent medical admission for right lower extremity pain and worsening of leg spasms. Complicated medical history includes peripheral vascular disease, lower extremity neuropathy, abdomonal aortic aneurysm s/p bypass surgery and other vascular stenting, COPD, restless leg syndrome, hypothyroidism, hypertension, hyperlipidemia, and hx esophageal cancer s/p Trach & G-tube Consult Reason Thoracolumbar compression fractures concern for nerve root injury Assessment and Plan Assessment and plan (1) Compression fracture of thoracolumbar vertebra: Status: Acute Assessment and plan: 75-year-old male with Right thigh pain due to unknown etiology Without any known trauma or complaints of back pain, it remains unclear how chronic compression fractures relate to acutely worsening symptoms. T12 vertebral body has significant loss of height and resulting local kyphosis, which could cause nerve root injury. On review of [facility] imaging, it is relatively unchanged over the past year. Spinal cord injury remains very rare. There are no reported signs or symptoms of cauda equina syndrome. MRI would be helpful in ruling out spine or nerve root involvement but is probably more urgent than emergent. Could also consider NCS and/or EMG. Vascular cause remains a concern given significant underlying vascular disease that includes recent right ilio-iliac bypass for thoracoabdominal aortic aneurysm, TEVAR, EVAR, renal and celiac stenting. However, [facility] vascular surgery was contacted on the initial ER visit and felt the CTA showed intact runoff to bilateral feet without leak. I would have low threshold to repeat vascular studies including obtaining PVR/ MEHRAN. Patient would likely benefit from coordinated care at tertiary care facility that has vascular surgery (where his endograft bypass and stents were done about 6 months ago), spine surgery, and pain / radiology interventionalists. Will follow along while patient remains inpatient at [facility]. Recommend multi-modal pain control as is being done by primary medical team, possible extension type thoracolumbar orthosis for mobilization and PT, repeat neuro and vascular checks. Interprofessional consultation, 45 minutes, including time spent discussion case with admitting medical team, reviewing the chart, recent and past imaging, as well as obtaining and reviewing outside records and imaging Qualifiers: Encounter type: initial encounter Fracture type: closed Qualified Code(s): S22.080A - Wedge compression fracture of T11-T12 vertebra, initial encounter for closed fracture; S32.010A - Wedge compression fracture of first lumbar vertebra, initial encounter for closed fracture Review of Systems Narrative: Deferred [facility] Medical History Anemia Anxiety Blockage of feeding tube CAD (coronary artery disease) Complication of feeding tube COPD (chronic obstructive pulmonary disease) Cortical cataract of right eye Depression Hematoma following procedure Herpes zoster History of alcoholism sober x 25yrs History of tobacco use Hyperlipemia Hypertension Hypothyroidism Impingement syndrome, shoulder, left (10/10/16) -2017: PT sugg. 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 Tobacco use Surgical History 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) Sin-mullins button placed by CHRISS Acevedo History of esophagogastroduodenoscopy (EGD) (~08/10/19) Daron Casper APRN @ [facility]: hiatal hernia, GERD, Reyes's esophagitis, neuromuscular dysfunction History of laryngectomy History of radical laryngectomy History of tarsorrhaphy PROCEDURES RT/LEFT HEART CARD CATH COMPLETE LARYNGECTOMY Esophagoplasty S/P AAA (abdominal aortic aneurysm) repair Status post cardiac catheterization Status post cataract extraction and insertion of intraocular lens of left eye (04/30/12) Status post cataract extraction and insertion of intraocular lens of right eye (07/12/18) Social History Smoking/Tobacco Use Status: Former Tobacco Use Tobacco: How many years used: 30 Smoking risk assessment performed?: Yes Alcohol Intake: never Drug use: Never Substance use type: does not use Current gender identity: male Do you feel safe at home: Yes Do you feel safe in your relationship?: Yes Exam Narrative Exam Narrative: Deferred Results Last Vital Signs Temp 98.4 F 07/21/20 07:40 Pulse 66 07/21/20 07:40 Resp 19 07/21/20 07:40 BP 99/61 L 07/21/20 07:40 Pulse Ox 95 07/21/20 07:40 Labs Result diagrams: 07/20/20 16:40 07/20/20 16:40 Imaging Imaging Studies: CT T & L spines shows multiple compression fractures most notably at T12 with significant loss of height and kyphosis and when compared with [facility] CTAs from over the past year do not show any significant change Rt hip XRs and CTA do not show any significant bony abnormalities about the Right pelvis, hip, or femur
[2020-07-21] MEDS: Sodium Chloride 0.9% for Inhalation 3 ML VIAL 2 ML UPD (21:15)
[2020-07-21] MEDS: Melatonin 3 MG TAB 6 MG PO (21:30)
[2020-07-21] MEDS: ROSUVASTATIN 20 MG TAB 40 MG NG (21:30)
[2020-07-21] MEDS: rOPINIRole 1 MG TAB 2 MG NG (21:57)
[2020-07-21] MEDS: clonazePAM 0.5 MG TAB PO (21:57)
[2020-07-22 01:26] LABS: COVID-19 RT-PCR UVMMC Result Negative (Negative)
[2020-07-22 07:40] VITALS: BP 118/67; PULSE 80; RESP 18; TEMP 37.1; O2SAT 95
[2020-07-22 08:12] VITALS: RESP 5; RESP 7; O2SAT 95
[2020-07-22] MEDS: Albuterol/Ipratropium 3 ML UPD VIAL UPD (08:12)
[2020-07-22] MEDS: Acetylcysteine 20% *ORAL/INHALED* 6000 MG/30 ML VIAL 400 MG IH (08:13)
[2020-07-22 08:15] VITALS: TEMP 34
[2020-07-22] MEDS: Sodium Chloride 0.9% for Inhalation 3 ML VIAL 2 ML UPD (08:15)
[2020-07-22] MEDS: Polyethylene Glycol 3350 17 GM PACKET NG (09:08)
[2020-07-22] MEDS: Diclofenac 1% Gel 100 GM TUBE TP (09:08)
[2020-07-22] MEDS: Ferrous Sulfate 44 MG/ML Liquid 300 MG NG (09:09)
[2020-07-22] MEDS: Gabapentin 300 MG CAP NG (09:09)
[2020-07-22] MEDS: Enoxaparin 40 MG/0.4 ML SYR SC (09:09)
[2020-07-22] MEDS: Aspirin 81 MG CHEW NG (09:09)
[2020-07-22] MEDS: Baclofen 10 MG TAB NG (09:09)
[2020-07-22] MEDS: Docusate Sodium 100 MG CAP PO (09:10)
[2020-07-22] MEDS: Omeprazole 20 MG CAPCR NG (09:10)
[2020-07-22] MEDS: Lactobacillus Acidophilus CAP 1 CAP NG (09:10)
[2020-07-22] MEDS: amLODIPine 5 MG TAB 7.5 MG PO (09:10)
[2020-07-22] MEDS: predniSONE 20 MG TAB 60 MG PO (09:10)
[2020-07-22] MEDS: Citalopram 20 MG TAB PO (09:10)
[2020-07-22] MEDS: Finasteride 5 MG TAB PO (09:10)
[2020-07-22] MEDS: Normal Saline Flush 10 ML SYR IVP (09:27)
[2020-07-22] MEDS: HYDROmorphone 2 MG/ML VIAL 1 MG IVP (09:28)
[2020-07-22] MEDS: diazePAM 5 MG TAB PO (09:28)
--- NOTE | 2020-07-22 09:35 | CMPROGNOTE_ITS ---
- If Service Date Differs Date of service: 07/22/20 Time of Service: 09:35 Care Management Progress Note S/O: Pineda is sitting on the side of the bed when CM comes to meet with him. Nursing staff are getting him ready for his down and back to [facility] [place] for an MRI. He is being transported by ambulance. Pineda is in good spirits and says I'm as happy as a clam because he finally knows the cause of his pain and it is being addressed. CM will continue to follow. A: Pineda is a 75 year old male admitted to [facility] on 07/20/2020 for thigh pain. P: Discharge plan is undetermined at this time and depends on the MRI findings and subsequent plan for treatment. CM did speak with Pineda yesterday about the potential need for rehab and he is open to the idea. CM will continue to support patient and discharge planning needs.
--- NOTE | 2020-07-22 09:44 | W.PM.PROGNOT ---
Date of Service Date of service: 07/22/20 Time of Service: 09:44 Assessment and Plan Assessment and plan (1) Compression fracture of thoracolumbar vertebra: Start date: 07/22/20 Start time: 09:59 Status: Acute Assessment and plan: No known acute reasons for pain CT revealing: IMPRESSION: 1. Compression fracture of T7 with moderate loss of height. There is a compression fracture of T12 with severe loss of height and 6-7 mm of retropulsion. There is a fracture line coursing through the superior endplate T12, suspicious of acute to subacute to region. MRI might be considered to document stability of the lower thoracic spinal cord or conus. 2. Mild nodular opacities in the left lung base could reflect mild infiltrate. He is going to MRI at [facility] for down and back today. Will wait results or MRI. Pain is improving, he states he is better able to move around and pain is positional he is receiving a steroid burst. Questioning nerve root injury which would improve with steroids. will do 5 day burst. Qualifiers: Encounter type: initial encounter Fracture type: closed Qualified Code(s): S22.080A - Wedge compression fracture of T11-T12 vertebra, initial encounter for closed fracture; S32.010A - Wedge compression fracture of first lumbar vertebra, initial encounter for closed fracture (2) Leg pain, right: Start date: 07/22/20 Start time: 10:02 Status: Acute Assessment and plan: After evaluation by PT unable to do straight leg raise, CT obtain Rectal tone intact. as above (3) Dependence on supplemental oxygen: Start date: 07/22/20 Start time: 10:02 Status: Chronic Assessment and plan: s/p trach from esophegeal cancer, continue trach collar with humidified oxygen above case discussed with dr. العلي Subjective Subjective Patient reports: other Interval history since last seen: Continues to have pain that is improved, concern for nerve root injury, CT with T 12 vertebral body compression fractures with severe pain. [facility] called for MRI. Agree to take patient to MRI through ED for down and back will send down and wait for results. Pineda is happy to be having some results and improvement in pain. He states that pain is positional. Steroids are likely helping as well if this is a nerve root issue. He continues to be on trach collar with humidified air. He denies CP, SOB, N/V/D. Exam Narrative Exam Narrative: . HEENT atraumatic; neck trach in place; lungs with rhonchi in bases; heart RRR; abdomen soft and NT, bsx 4; extremities w/o edema, right DP pulse intact; no swelling or redness RLE, no tenderness, no pain with PROM of hip or knee, and none with resisted flexion of hip nor extension of knee; neuro Ox3, motor 5/5 grossly, intact light touch DTR LES 1+/=, toes down going. Better ambulation today. Though pain and spasming is positional. Objective Last Vital Signs Temp 37.1 C 07/22/20 07:40 Pulse 80 07/22/20 07:40 Resp 18 07/22/20 07:40 BP 118/67 07/22/20 07:40 Pulse Ox 95 07/22/20 08:12 Laboratory Results - last 24 hr 07/20/20 21:35 SARS-CoV-2 (PCR) Negative Nasopharyn COVID-19 PCR Not Applicable Ref Test Perform Site [facility]
--- NOTE | 2020-07-22 10:42 | NT_ITS ---
PT Notes Visit Reasons: RADICULOPATHY Pt is on hold today due to transferring to [facility] [place] secondary to compression fractures and may be admitted to [facility] following MRI.
--- NOTE | 2020-07-22 10:42 | PT.INNT ---
PT Notes Visit Reasons: RADICULOPATHY Pt is on hold today due to transferring to [facility] [place] secondary to compression fractures and may be admitted to [facility] following MRI.
--- NOTE | 2020-07-22 18:18 | DSE_ITS ---
Documented by User: Fabian Levine MD 07/22/20 18:19 DS: Diagnosis Discharge Diagnosis (1) Compression fracture of thoracolumbar vertebra: Status: Acute (2) Leg pain, right: Status: Acute (3) Dependence on supplemental oxygen: Status: Chronic Discharge Plan Disposition Patient Disposition: [facility] Condition: Stable Discharge Details Reason For Visit: RADICULOPATHY Admit Date/Time: 07/22/20 08:51 Admit Provider: Jhonny Aguirre Attending Provider: Jhonny Aguirre [facility] Course: 75 male with h/o PVD, trach collar s/p esophegeal cancer with supplemental oxygen, AAA repair and RLS. Presented to ER with his third visit in past week for right thigh pain. This is apparently a more or less chronic issue but has become acutely worse over this past week. W/U has included negative CTA abdomen and RLE and neg U/S RLE. Pain seems related to activity, or more precisely to attempts to move the leg, seems better at rest, though even then apparently occasionally may flare. In ER received Neurontin and Dilaudid (cumulatively 1 mg IV) with modest effect. However attempts to get him up to walk were a failure, could not even navigate to get out of stretcher. He was admitted for further eval and ,management. PT evaluated him finding: Patient demonstrates symptom reproduction with dural tension testing with straight leg raise and slump test. Given region of pain suspect L3/L4 involvement. Based on evaluation CT of thoracic and lumbar spine ordered : 1. Compression fracture of T7 with moderate loss of height. There is a compression fracture of T12 with severe loss of height and 6-7 mm of retropulsion. There is a fracture line coursing through the superior endplate T12, suspicious of acute to subacute to region. MRI might be considered to document stability of the lower thoracic spinal cord or conus. 2. Mild nodular opacities in the left lung base could reflect mild infiltrate. Based on Findings, Dr. Willis was consulted and agreed patient needed MRI. [facility] [place]; they felt he did not need emergent urgent MRI, however given patient assessment and findings, it was felt that patient would benefit from an MRI sooner rather than later. I asked to speak to [facility] to transfer for a down and back MRI, as I explained patient was unable to move leg without spasm, he was unable to do straight leg lift greater than 30 degrees or at all and he was experiencing severe intermittent pain and spasming, there was concern for nerve root injury. The ED could not accommodate a Thursday transfer but they stated they would be able to on Thursday morning especially since the patient required respiratory. He was started on Prednisone burst with valium for spasm. He tolerated both well and on Thursday appeared to be improving. He was able to move his leg better, he stated that his pain and spasing was more positional now. Thursday he was transferred to [facility] accepted by Dr. Tran for MRI. Called received around 1230/[address] Tran stating that he was found to have edema around his thoracic spine, I requested that neurosurgery evaluate patient and give recommendations for further treatment. We had not heard back from [facility]. Apparently he was admitted to their facility, for unknown diagnosis. No provider made aware and nursing electrical assemblies supervisor not made aware. Home Meds and New Rx's Prescriptions: No Action ipratropium-albuterol 0.5 mg-3 mg(2.5 mg base)/3 mL solution for nebulization 3 ml IN TID PRN (Reason: shortness of breath or wheezing) Qty: 90 RF: 4 finasteride 5 mg tablet 5 mg PO DAILY Qty: 90 RF: 3 omeprazole 20 mg capsule,delayed release(DR/EC) 20 mg feeding tube BID Qty: 90 RF: 4 acetylcysteine 100 mg/mL (10 %) solution 4 ml inhalation Q4H RF: 0 acetaminophen [Tylenol Extra Strength] 500 mg tablet 1,000 mg PO .1600, 2200 PRNRF: 0 clonazepam 0.5 mg tablet 0.5 mg PO BID PRN (Reason: anxiety) Qty: 15 RF: 0 rosuvastatin 40 mg tablet 40 mg feeding tube HS Qty: 90 RF: 4 3 mLs Saline Vials 1 vial inhalation .5 times a day Qty: 150 RF: 4 gabapentin 300 mg capsule 300 mg feeding tube DAILY Qty: 90 RF: 4 ropinirole 1 mg tablet 1 mg feeding tube DIRECTED Qty: 120 RF: 11 alfuzosin [Uroxatral] 10 mg tablet extended release 24 hr 10 mg PO DAILY Qty: 90 RF: 3 ferrous sulfate 220 mg (44 mg iron)/5 mL solution 300 mg Feeding Tube DAILY Qty: 473 RF: 0 amlodipine 5 mg tablet 7.5 mg PO DAILY Qty: 135 RF: 2 citalopram 20 mg tablet 20 mg PO DAILY Qty: 90 RF: 4 carboxymethylcellulose sodium [Refresh Tears] 0.5 % Drops 1 drp ophthalmic (eye) PRN PRNRF: 0 melatonin 3 MG tablet 6 mg PO HS RF: 0 aspirin 81 mg Tablet,Chewable 81 mg feeding tube DAILY RF: 0 Bifidobacterium infantis 4 mg Capsule 4 mg feeding tube DAILY RF: 0 levothyroxine 112 mcg tablet 20 mcg feeding tube DAILY@1700 RF: 0 Discharge Instructions Activity:: Activity as Tolerated Diet:: As Tolerated Discharge Orders Discharge Orders: Discharge Order (Routine); Ordered 07/22/20 Ordered By: Fabian Levine Discharge Data Discharge Date/Time-TO BE ENTERED AT DEPARTURE: 07/22/20 18:19 DS: Data Vitals/I&O Vitals and I&O: Vital Signs Temperature 37.1 C 07/22/20 07:40 Temperature Source Temporal Artery Scan 07/22/20 07:40 Pulse 80 07/22/20 07:40 Pulse Rhythm Regular 07/22/20 09:21 Respiratory Rate 18 07/22/20 07:40 Respiratory Effort 07/22/20 09:21 Respiratory Depth Normal 07/22/20 09:21 Respiratory Pattern Normal 07/22/20 09:21 Blood Pressure 118/67 07/22/20 07:40 Blood Pressure Mean 83 07/20/20 19:39 Blood Pressure Position Sitting 07/20/20 16:04 Pulse Oximetry 95 07/22/20 08:12 Oxygen Delivery Method Hi Flow Nasal Cannula 07/22/20 08:12 Oxygen Flow Rate 25 07/22/20 08:15 Fraction of Inspired Oxygen (FIO2) 51 07/22/20 08:15 Pain Level 2 07/22/20 07:40 Intake & Output 07/21/20 07/22/20 07/22/20 23:59 11:59 23:59 Intake Total 560 / 835 750 / 750 Output Total 450 / 1050 625 / 625 Balance 110 / -215 125 / 125 Intake: Oral 560 / 560 Intake, Tube Feeding Amount 750 / 750 Output: Urine 450 / 1050 625 / 625 Output, Residual 0 / 0 Other: Urine Color Yellow Light Ankita Urine Appearance Clear Clear Urine Odor Normal Normal Voiding Methods Urinal Urinal Data Completed and Pending Labs on day of discharge: Labs from last 24 hours 07/20/20 21:35 SARS-CoV-2 (PCR) Negative Nasopharyn COVID-19 PCR Not Applicable Ref Test Perform Site [place] 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 Anemia Anxiety Anxiety Aphonia post total laryngectomy [facility] [place] Blockage of feeding tube 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/17) CAD (coronary artery disease) Complication of feeding tube Conjunctivitis, chronic COPD (chronic obstructive pulmonary disease) COPD (chronic obstructive pulmonary disease) Cortical cataract of right eye Depression Depressive disorder (11/18/12) 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-SESSILE SERRATED ADENOMA Tobacco use Surgical History (Updated 07/22/20 @ 09:57 by Emmanuelle Manley NP) 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) Sin-mullins button placed by Dr Elia Mcdonald [facility] History of esophagogastroduodenoscopy (EGD) (~08/10/19) Daron Casper APRN @ [facility]: hiatal hernia, GERD, Reyes's esophagitis, adwoa romuscular dysfunction History of laryngectomy History of radical laryngectomy History of tarsorrhaphy PROCEDURES RT/LEFT HEART CARD CATH COMPLETE LARYNGECTOMY Esophagoplasty S/P AAA (abdominal aortic aneurysm) repair Status post cardiac catheterization Status post cataract extraction and insertion of intraocular lens of left eye (04/30/12) Status post cataract extraction and insertion of intraocular lens of right eye (07/12/18) Status post laryngectomy Social History Smoking/Tobacco Use Status: Former Tobacco Use Tobacco: How many years used: 30 Smoking risk assessment performed?: Yes Alcohol Intake: never Drug use: Never Substance use type: does not use Current gender identity: male Do you feel safe at home: Yes Do you feel safe in your relationship?: Yes Documented by User: Emmanuelle Manley NP 07/23/20 15:06 Date of service: 07/23/20 Time of Service: 14:38 DS: Diagnosis Discharge Diagnosis (1) Compression fracture of thoracolumbar vertebra: Start date: 07/23/20 Start time: 14:38 Status: Acute Asessment and Plan: Assessment and plan: After evaluation by PT unable to do straight leg raise, CT obtain IMPRESSION: 1. Compression fracture of T7 with moderate loss of height. There is a compression fracture of T12 with severe loss of height and 6-7 mm of retropulsion. There is a fracture line coursing through the superior endplate T12, suspicious of acute to subacute to region. MRI might be considered to document stability of the lower thoracic spinal cord or conus. 2. Mild nodular opacities in the left lung base could reflect mild infiltrate. Rectal tone intact. Severe pain with spasm to thigh. Given 60 mg prednisone PO, analgesics for pain, will bladder scan and monitor for constipation which can compress spine. Bowel regimen, straight cath as needed. [facility] agreed to take patient in transfer to ED for MRI. ED provider call approx around [phone] to say patient had edema to thoracic spine, we requested that neurosurgery see patient for further recommendations on patient. Apparently patient was kept at [facility] as an inpatient. Report never called to Hospitalist, Nursing electrical assemblies supervisor never notified, unsure of diagnosis for patient and reason for admission (2) Leg pain, right: Start date: 07/23/20 Start time: 14:46 Status: Acute Asessment and Plan: as above. Likely due to root nerve injury was improving with prednisone (3) Dependence on supplemental oxygen: Start date: 07/23/20 Start time: 14:46 Status: Chronic Asessment and Plan: Trach collar due to esophageal ca s/p above case discussed with Dr. George. Discharge Plan Disposition Patient Disposition: [facility] Condition: Stable Discharge Details Reason For Visit: RADICULOPATHY Admit Date/Time: 07/22/20 08:51 Admit Provider: Jhonny Aguirre Attending Provider: Jhonny Aguirre Primary Care Provider: [facility] Course Hospital Course: 75 male with h/o PVD, trach collar s/p esophegeal cancer with supplemental oxygen, AAA repair and RLS. Presented to ER with his third visit in past week for right thigh pain. This is apparently a more or less chronic issue but has become acutely worse over this past week. W/U has included negative CTA abdomen and RLE and neg U/S RLE. Pain seems related to activity, or more precisely to attempts to move the leg, seems better at rest, though even then apparently occasionally may flare. In ER received Neurontin and Dilaudid (cumulatively 1 mg IV) with modest effect. However attempts to get him up to walk were a failure, could not even navigate to get out of stretcher. He was admitted for further eval and ,management. PT evaluated him finding: Patient demonstrates symptom reproduction with dural tension testing with straight leg raise and slump test. Given region of pain suspect L3/L4 involvement. Based on evaluation CT of thoracic and lumbar spine ordered : 1. Compression fracture of T7 with moderate loss of height. There is a compression fracture of T12 with severe loss of height and 6-7 mm of retropulsion. There is a fracture line coursing through the superior endplate T12, suspicious of acute to subacute to region. MRI might be considered to document stability of the lower thoracic spinal cord or conus. 2. Mild nodular opacities in the left lung base could reflect mild infiltrate. Based on Findings, Dr. Willis was consulted and agreed patient needed MRI. [facility] contacted; they felt he did not need emergent urgent MRI, however given patient assessment and findings, it was felt that patient would benefit from an MRI sooner rather than later. I asked to speak to [facility] to transfer for a down and back MRI, as I explained patient was unable to move leg without spasm, he was unable to do straight leg lift greater than 30 degrees or at all and he was experiencing severe intermittent pain and spasming, there was concern for nerve root injury. The ED could not accommodate a Thursday transfer but they stated they would be able to on Thursday morning especially since the patient required respiratory. He was started on Prednisone burst with valium for spasm. He tolerated both well and on Thursday appeared to be improving. He was able to move his leg better, he stated that his pain and spasing was more positional now. Thursday he was transferred to [facility] accepted by Dr. Tran for MRI. Called received around 1230/[address] Tran stating that he was found to have edema around his thoracic spine, I requested that neurosurgery evaluate patient and give recommendations for further treatment. We had not heard back from [facility]. Apparently he was admitted to their facility, for unknown diagnosis. No provider made aware and nursing electrical assemblies supervisor not made aware. Home Meds and New Rx's Prescriptions: No Action ipratropium-albuterol 0.5 mg-3 mg(2.5 mg base)/3 mL solution for nebulization 3 ml IN TID PRN (Reason: shortness of breath or wheezing) Qty: 90 RF: 4 finasteride 5 mg tablet 5 mg PO DAILY Qty: 90 RF: 3 omeprazole 20 mg capsule,delayed release(DR/EC) 20 mg feeding tube BID Qty: 90 RF: 4 acetylcysteine 100 mg/mL (10 %) solution 4 ml inhalation Q4H RF: 0 acetaminophen [Tylenol Extra Strength] 500 mg tablet 1,000 mg PO .1600, 2200 PRNRF: 0 clonazepam 0.5 mg tablet 0.5 mg PO BID PRN (Reason: anxiety) Qty: 15 RF: 0 rosuvastatin 40 mg tablet 40 mg feeding tube HS Qty: 90 RF: 4 3 mLs Saline Vials 1 vial inhalation .5 times a day Qty: 150 RF: 4 gabapentin 300 mg capsule 300 mg feeding tube DAILY Qty: 90 RF: 4 ropinirole 1 mg tablet 1 mg feeding tube DIRECTED Qty: 120 RF: 11 alfuzosin [Uroxatral] 10 mg tablet extended release 24 hr 10 mg PO DAILY Qty: 90 RF: 3 ferrous sulfate 220 mg (44 mg iron)/5 mL solution 300 mg Feeding Tube DAILY Qty: 473 RF: 0 amlodipine 5 mg tablet 7.5 mg PO DAILY Qty: 135 RF: 2 citalopram 20 mg tablet 20 mg PO DAILY Qty: 90 RF: 4 carboxymethylcellulose sodium [Refresh Tears] 0.5 % Drops 1 drp ophthalmic (eye) PRN PRNRF: 0 melatonin 3 MG tablet 6 mg PO HS RF: 0 aspirin 81 mg Tablet,Chewable 81 mg feeding tube DAILY RF: 0 Bifidobacterium infantis 4 mg Capsule 4 mg feeding tube DAILY RF: 0 levothyroxine 112 mcg tablet 20 mcg feeding tube DAILY@1700 RF: 0 Discharge Instructions Activity:: Activity as Tolerated Diet:: As Tolerated Discharge Orders Discharge Orders: Discharge Order (Routine); Ordered 07/22/20 Ordered By: Fabian Levine Discharge Data Discharge Date/Time-TO BE ENTERED AT DEPARTURE: 07/22/20 18:19 DS: Summary Time Spent with Patient providing and/or coordinating discharge services: Greater than 30 minutes (approx discharge time is 35 mins) Status at Discharge Functional status at discharge: uses cane/walker Overall status at discharge: patient is not back to baseline Mental Status: mental status grossly normal Speech and Movement: speech and movement normal Mood: congruent mood Affect: normal affect Exam Narrative Exam Narrative: . HEENT atraumatic; neck trach in place; lungs with rhonchi in bases; heart RRR; abdomen soft and NT, bsx 4; extremities w/o edema, right DP pulse intact; no swelling or redness RLE, no tenderness, no pain with PROM of hip or knee, and none with resisted flexion of hip nor extension of knee; neuro Ox3, motor 5/5 grossly, intact light touch DTR LES 1+/=, toes down going. Better ambulation today. Though pain and spasming is positional. Psych Mental Status: mental status grossly normal Speech and Movement: speech and movement normal Mood: congruent mood Affect: normal affect DS: Data Data Completed and Pending Completed studies during hospitalization [Text1]: FINDINGS: Thoracic spine: There is again seen a compression fracture of the T7 vertebral body. There is loss of height of the vertebral body noted. This is unchanged when compared to CT scans from 07/12/2019, 10/29/2027, and 07/16/2020. There is also stable compression fracture deformity of T12. There is marked loss of height of the vertebral body noted. Stable retropulsion of the superior endplate is noted into the spinal canal. There is a persistent stable kyphotic deformity present. No new compression fractures are seen. The bones are osteopenic. Degenerative changes are present throughout the thoracic spine. Emphysematous changes are seen in the lungs. There is a worsening infiltrate in the left lower lobe compared to 07/16/2020. Lumbar spine: There is a stable L1 compression fracture deformity with moderate loss of height and stable retropulsion of the superior endplate into the spinal canal. No new fractures or subluxations are seen in the lumbar spine. Degenerative changes are seen in the lumbar spine. The bones are osteopenic. An aortoiliac stent is again noted. IMPRESSION: Stable T7, T12 and L1 compression fractures compared to examinations dating back to 07/12/2019. No new thoracic or lumbar spine fractures are seen. MRI might be considered for evaluation of spinal cord involvement. Exam(s) PROCEDURE INFORMATION: Exam: CT Thoracic Spine Without Contrast Exam date and time: 07/21/2020 10:14 AM Age: 75 years old Clinical indication: Other: Inability to mobilize limb TECHNIQUE: Imaging protocol: Computed tomography images of the thoracic spine without contrast. Radiation optimization: All CT scans at this facility use at least one of these dose optimization techniques: automated exposure control; mA and/or kV adjustment per patient size (includes targeted exams where dose is matched to clinical indication); or iterative reconstruction. COMPARISON: No relevant prior studies available. FINDINGS: Tubes, catheters and devices: There is a tracheostomy tube noted tube lies at the level of the clavicle. There is mild debris within the trachea. Vertebrae: There is a compression fracture of T7 with moderate loss of height. There is a compression fracture of T12 with moderate to marked loss of height and 6-7 mm retropulsion of the superior endplate. Facets are normally located. No definite fracture of the posterior elements. There is mild kyphotic deformity, centered at T11-T12 due to compression fracture of T12. Discs/Spinal canal/Neural foramina: There is moderate narrowing of intervertebral disc space at C5-C6 with prominent posterior osteophyte disc complex. Other bones/joints: Visualized bones are markedly demineralized. Posterior elements are intact. Soft tissues: Unremarkable. Vasculature: There are heavy calcifications of arch of aorta . There is calcification of the proximal left subclavian artery brachycephalic artery and proximal bilateral common carotid arteries. Lungs: There is mild peripheral and basilar reticulation of the lungs. There are mild reticulonodular interstitial thickening in the left lower lung lobe. Heart: Heart is enlarged with diffuse coronary artery calcifications. There are calcifications of the aortic valve. IMPRESSION: 1. Compression fracture of T7 with moderate loss of height. There is a compression fracture of T12 with severe loss of height and 6-7 mm of retropulsion. There is a fracture line coursing through the superior endplate T12, suspicious of acute to subacute to region. MRI might be considered to document stability of the lower thoracic spinal cord or conus. 2. Mild nodular opacities in the left lung base could reflect mild infiltrate. Exam(s) PROCEDURE INFORMATION: Exam: XR Right Hip with Pelvis when Performed Exam date and time: 07/21/2020 2:56 PM Age: 75 years old Clinical indication: Patient HX: Unable to raise right hip. Severe right hip pain. TECHNIQUE: Imaging protocol: XR Right hip with pelvis when performed. Views: 2 or 3 views. COMPARISON: CT THORAX ABD/PEL CTA 10/29/2019 2:28 AM FINDINGS: Bones/joints: There is mild subchondral sclerosis. There is no acute fracture or dislocation. Soft tissues: Unremarkable. Vasculature: There are vascular calcifications. There is a stent noted in the region of the right iliac artery. IMPRESSION: Mild degenerative changes in the right hip joint. No acute fracture or dislocation. 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 MRSA pneumonia Neurotrophic cornea of left eye Nuclear sclerotic cataract of right eye PAOD (peripheral arterial occlusive disease) Peripheral neuropathy (02/21/15) Post herpetic neuralgia Posterior subcapsular age-related cataract, right eye Primary malignant neoplasm of oropharynx ; yearly fup in Feb (last ) [facility] SX: 2007 ROR: 1999 + 2007 Pulmonary nodule, right (05/30/15) on chest CT -2016: stable Restless leg syndrome (02/21/15) Sessile colonic polyp 12/22/16-SESSILE SERRATED ADENOMA Tobacco use Surgical History (Updated 07/22/20 @ 09:57 by Emmanuelle Manley NP) 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) Sin-mullins button placed by Dr Elia Mcdonald [facility] History of esophagogastroduodenoscopy (EGD) (~08/10/19) Daron Casper APRN @ [facility]: hiatal hernia, GERD, Reyes's esophagitis, neuromuscular dysfunction History of laryngectomy History of radical laryngectomy History of tarsorrhaphy PROCEDURES RT/LEFT HEART CARD CATH COMPLETE LARYNGECTOMY Esophagoplasty S/P AAA (abdominal aortic aneurysm) repair Status post cardiac catheterization Status post cataract extraction and insertion of intraocular lens of left eye ( 04/30/12) Status post cataract extraction and insertion of intraocular lens of right eye (07/12/18) Status post laryngectomy Social History Smoking/Tobacco Use Status: Former Tobacco Use Tobacco: How many years used: 30 Smoking risk assessment performed?: Yes Alcohol Intake: never Drug use: Never Substance use type: does not use Current gender identity: male Do you feel safe at home: Yes Do you feel safe in your relationship?: Yes
--- NOTE | 2020-07-23 18:00 | PT.INDS ---
Date of service: 07/23/20 PT Notes Visit Reasons: RADICULOPATHY Physical Therapy Inpatient Discharge Summary Date: 07/23/20 Dates of service: 07/21/2020 only This is a clinical summary of care provided on the duration of dates listed above. No charge was made in the completion of this documentation. Referring Doctor: Dr. Jhonny Aguirre PT Orders: PT CONSULT: Right leg pain Precautions: Fall precautions Patient Profile/Admitting Diagnosis: 75 male with h/o PVD and RLS. This is third ER visit in past week for right thigh pain. Patient has undergone multiple diagnostics including negative CTA abdomen and RLE and neg U/S RLE. Pain seems related to activity, or more precisely to attempts to move the leg, seems better at rest, though even then apparently occasionally may flare. Patient states that he feels as though symptoms are worsening. He has episodes of pain when moving his leg whether he is sitting laying or standing. At times he can have 0 pain but the intensify to what he says 12/10. Positive cough sneeze, negative bowel or bladder dysfunction. Overall feels as though symptoms are intensifying with regards to frequency and intensity. He denies any trauma. Symptoms started insidiously. PMHX: Medical History Anemia Anxiety Blockage of feeding tube CAD (coronary artery disease) Complication of feeding tube COPD (chronic obstructive pulmonary disease) Cortical cataract of right eye Depression Hematoma following procedure Herpes zoster History of alcoholism sober x 25yrs History of tobacco use Hyperlipemia Hypertension Hypothyroidism Impingement syndrome, shoulder, left (10/10/16) -2016: PT sugg. 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 Tobacco use Surgical History 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) Sin-mullins button placed by Dr Elia Mcdonald [facility] History of esophagogastroduodenoscopy (EGD) (~08/10/19) Daron Casper APRN @ [facility]: hiatal hernia, GERD, Reyes's esophagitis, neuromuscular dysfunction History of laryngectomy History of radical laryngectomy History of tarsorrhaphy PROCEDURES RT/LEFT HEART CARD CATH COMPLETE LARYNGECTOMY Esophagoplasty S/P AAA (abdominal aortic aneurysm) repair Status post cardiac catheterization Status post cataract extraction and insertion of intraocular lens of left eye (04/30/12) Status post cataract extraction and insertion of intraocular lens of right eye (07/12/18) Social History/Home Situation: Patient lives with significant other in a split-level home with 4 steps to enter and a rail on the right side going up. Patient has an additional 7 steps with a rail on the right going up to negotiate inside the house to get to the living room where his bedroom is. Patient also has a nephew who is able to help as needed. He is independent with functional mobility performance. Significant other takes charge of preparing meals for patient. Equipment Owned/DME: FWW, augmentative speech device, oxygen supplementation Subjective: NT. See most recent SERVICE CASHIER notes. Objective: General Observation: NT. See most recent SERVICE CASHIER notes. Mental Status: NT. See most recent SERVICE CASHIER notes. Pain: NT. See most recent SERVICE CASHIER notes. ROM: Right Upper Extremity: Shoulder Flexion WFL. Shoulder abduction WFL. Elbow flexion WFL. Wrist flexion WFL. Opening and closing of hand WFL. Left Upper Extremity: Shoulder Flexion WFL. Shoulder abduction WFL. Elbow flexion WFL. Wrist flexion WFL. Opening and closing of hand WFL. Right Lower Extremity: Hip flexion limited to 90's actively secondary to pain reproduction. Hip abduction WFL. Knee flexion WFL. Ankle dorsiflexion WFL. Ankle plantarflexion WFL. Left Lower Extremity: Hip flexion WFL. Hip abduction WFL. Knee flexion WFL. Ankle dorsiflexion WFL. Ankle plantarflexion WFL. Strength: Right Upper Extremity: Shoulder flexors 4/5. Shoulder abductors 4/5. Elbow flexors 4/5. Elbow extensors 4/5. Environmental Safety Specialist strong. Left Upper Extremity: Shoulder flexors 4/5. Shoulder abductors 4/5. Elbow flexors 4/5. Elbow extensors 4/5. Environmental Safety Specialist strong. Right Lower Extremity: Hip flexors 4-/5. Hip abductors 4/5. Knee flexors 4/5. Knee extensors 4/5. Ankle dorsiflexors 5/5. Ankle plantarflexors 5/5. Left Lower Extremity:Hip flexors 4-/5. Hip abductors 4/5. Knee flexors 4/5, knee extension 4/5 L knee on knee immobilizer. Ankle dorsiflexors 4-/5. Ankle plantarflexors 4-/5. Sensation: Patient reports intact sensation to light touch throughout bilateral lower extremities. Myotomal distribution within functional limits with the exception of right hip flexion limited due to pain Bed Mobility/Transfers: Supine?sit: Min assist x1 with significant pain reproduction. Patient does use trapeze assist. Sit?stand: Min assist x1 to front wheeled walker Stand?sit: On front wheeled walker standby assist Sit?supine: Min assist primarily for lower extremity placement on bed Gait: 5 feet limited due to pain. This is with contact-guard and use of front wheeled walker Balance: Static Sitting: Good Dynamic Sitting: Good Static Standing: Fair Dynamic Standing: Fair Assessment: Patient directly transferred to [facility] for immediate medical intervention on 07/21/2020. Patient continues to present with clinical signs and symptoms consistent with current/admitting diagnoses that have resulted to mobility limitations, gait instability, generalized weakness, and impairment of motor control as demonstrated by the following impairment level findings: 1. Decreased strength to right lower extremity 2. Impaired standing balance 3. Right lower extremity radiculopathy Impairments are continuing to contribute to the following functional limitations: 1. Inability to safely ambulate without assistive device 2. Increase completion time for mobility ADL performance 3. Increased fall risk 4. Inability to negotiate steps alone safely Goals: Goals X1 week 1. Supine-Sit: Independent NOT MET 2. Sit-Supine: Independent NOT MET 3. Sit-Stand: Independent NOT MET 4. Stand-Sit : Independent NOT MET 5. Bed-Chair: Independent NOT MET 6. Chair-Bed: Independent NOT MET 7. Gait: 150 feet with front wheel walker standby assist NOT MET 8. Stairs: 4 stairs with railing standby assist NOT MET DISCHARGE RECOMMENDATIONS: Home health PT upon discharge from [facility] when medically stable TREATMENT CODE/TIME: NC Thank you for the opportunity to participate in the care of this patient. Vanessa Brown PT, DPT, CLT [facility] [place], [place]
--- NOTE | 2020-07-27 14:57 | RESPIRATORY ---
07/27/2020- Received an update phone from RT Gal[place] [facility] [place] Pt has been fitted for an Adult Medium Hill Rom airway clearance vest and has been using at while inpt. Pt was to d/c today but, now has a higher Fio2 requirement of 50% on the High Flow System. Projected d/c to home on Thursday. is requested this RT to make a hmoe visit on D/C and will call to confirm d/c on Thursday.
--- NOTE | 2020-08-03 18:40 | RESPIRATORY ---
[facility] [employer] Jigar Team meeting August 01, 2020 3:30pm-4:15pm Welcome to those attending. Line Out Man: Radha Kaminski RRT [facility] Attending: Dr. Jayson Wall Care Clinician @ [facility], Emmanuelle Wang, Pulmonology RN @[facility], Eve Rivers BANK SALES AND SERVICE MANAGER @ [facility], Maya Berry RN Clinincal Research Test Engine Evaluator @[facility], Hiral ?[facility] Community Health Worker @ [facility], Kathrine Walker ED Pick Remover @ [facility] & Radha Kaminski RRT @ [facility]. Review of Usman current history with diagnoses. 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 Jigar?s Current regimen and treatments -6 LPM via trach collar - Finishing up Linezolid tx this week for MRSA colonization . -Ipratropium-Albuterol 0.5mg-3 mg/3 mL BID, Acetylcysteine (Mucomyst) 100mg/mL ( 10%) BID, Sodium chloride 3% Solution for nebulization BID with Hill-Rom Vest airway Clearance System on . With suction machine in home as needed. -[facility]> RN 2x?s weekly up to 45 mins each visit PT 1x weekly for 30 mins Upcoming: Appt?s & Meetings -SukhdevRozina has an appt on 08/07 @ 1000 with Transitional Care Management - Internal Medicine @ [facility] -Jigar has an appt on 08/08 @ [address] Jayson Wall Pulmonology @ [facility] -Jigar has an appt on 08/08 @ 929with Eve Rivers BANK SALES AND SERVICE MANAGER Pulmonology @ [facility] -This Team will meet on 08/14/20 @ 3:30 pm via [employer]. Radha will send invite. -Radha reached out to Marsha Rice at [facility] requesting her team to update this team on the home visits over the next two weeks. -Radha reached out to Bill at [facility] in [place]. They will be going to Jigar?ruth home on Thursday (08/06) as I advised them of his upcoming appt?s on 08/06 & 08/07. They are planning to re-educate on the o2 filling station and collect more loose O2 bottles out of Kiara?s car when they are there. -Dr. Wall and Emmanuelle were going to rewrite J.J.?s nebulizer regimen to BID. -Ludmila & Hiral were going to discuss with Jigar & Kiara about having a social media sr strategy manager go into the home to evaluate needs. -Eve will discuss with Pineda & Kiara about calling when Pineda is starting to having symptoms of a MRSA flare up and may preemptively treat with Linezolid. Next Meeting: Thursday, August 15, 2019 @ 3;30pm via [email or web address]
== END 2020-07-22 18:19 | disposition short-term general hospital (02) | DRG 74 ==
LOC: ER 16:38 → MS 07-21 10:16
PROVIDERS: Admitting Provider General Practice; Emergency Provider Registered Nurse Emergency; PCP Family Medicine; Visit Provider General Practice
DX: M54.10 Radiculopathy, site unspecified (principal); M48.55XA Collapsed vertebra, not elsewhere classified, thoracolumbar region, initial encounter for fracture; D64.9 Anemia, unspecified; G62.1 Alcoholic polyneuropathy; F41.9 Anxiety disorder, unspecified; J44.9 Chronic obstructive pulmonary disease, unspecified; N40.1 Benign prostatic hyperplasia with lower urinary tract symptoms; I25.10 Atherosclerotic heart disease of native coronary artery without angina pectoris; F32.9 Major depressive disorder, single episode, unspecified; I69.891 Dysphagia following other cerebrovascular disease; R13.10 Dysphagia, unspecified; F10.21 Alcohol dependence, in remission; I10 Essential (primary) hypertension; E03.9 Hypothyroidism, unspecified; I73.9 Peripheral vascular disease, unspecified; R91.1 Solitary pulmonary nodule; G25.81 Restless legs syndrome; Z87.891 Personal history of nicotine dependence; Z93.0 Tracheostomy status; Z93.1 Gastrostomy status; Z90.02 Acquired absence of larynx; Z85.21 Personal history of malignant neoplasm of larynx; Z99.81 Dependence on supplemental oxygen
CPT/HCPCS: 36415; 80053; 96374; 96376; 97162; 99222; 99223; 99226; 99233; 99239; 99255; 99285; J1650; U0003; U0005; 71046; 72128; 72131; 73502; 85025; 94640; 99219; 99238; 99284; G0378; J7512; J7608; J7620

== ENCOUNTER → 2020-09-11 15:11 | Outpatient (BNVA) | payer MEDICARE, MEDICAID, SELFPAY | PROVIDERS: PCP Family Medicine; Referring Provider Family Medicine; Visit Provider Nurse Practitioner Gerontology | DX: N40.1 Benign prostatic hyperplasia with lower urinary tract symptoms (principal); N13.8 Other obstructive and reflux uropathy | CPT/HCPCS: 99213 ==

== ENCOUNTER → 2020-10-04 11:00 | Outpatient (BNVA) | payer MEDICARE, MEDICAID, SELFPAY | PROVIDERS: PCP Family Medicine; Referring Provider Family Medicine; Visit Provider Surgery | DX: Z43.1 Encounter for attention to gastrostomy (principal); B37.9 Candidiasis, unspecified | CPT/HCPCS: 43762; 99212 ==

== ENCOUNTER 2020-11-01 12:50 | Outpatient (CLI) | payer MEDICARE, MEDICAID, SELFPAY ==
--- NOTE | 2020-11-01 15:30 | DI.RAD_ITS ---
Exam(s) XR ABDOMEN FLAT PLATE EXAM: XR ABDOMEN FLAT PLATE CLINICAL HISTORY: leak of feeding tube K94.20, R13.19 OTHER DYSPHAGIA. TECHNIQUE: 2D digital imaging was performed. COMPARISON: No exams were available for comparison FINDINGS: Preliminary as well as post injected supine and bilateral oblique views were performed following inje ction of radiopaque contrast through the indwelling gastrostomy tube. Images reveal all of the injected contrast to be intraluminal extending from the fundus of the stomac h down to distal small bowel loops by the end of this study. There is no obvious extravasation evide nt. Incidentally noted is an aortic EVAR as well as bilateral renal artery stents. No free air seen on t he preliminary upright view. IMPRESSION: 1. No extravasation, as per request. 2. No free air. Findings discussed with the surgeon in the fluoroscopy suite following completion of the study. DATA REPOSITORY: RADIATION DOSE DELIVERED:
== END 2020-11-01 13:10 ==
PROVIDERS: PCP Family Medicine; Visit Provider Surgery
DX: Z43.1 Encounter for attention to gastrostomy (principal); R13.19 Other dysphagia
CPT/HCPCS: 43762; 99212; 74018

== ENCOUNTER → 2020-11-01 14:53 | Outpatient (BNVA) | payer MEDICARE, MEDICAID, SELFPAY | PROVIDERS: PCP Family Medicine; Referring Provider Family Medicine; Visit Provider Surgery | DX: Z43.1 Encounter for attention to gastrostomy (principal); R13.19 Other dysphagia ==

== ENCOUNTER 2020-11-24 15:25 | Emergency (ER) | payer MEDICARE, MEDICAID, SELFPAY ==
[2020-11-24] VITALS (17 sets, daily range): BP systolic 113–169; BP diastolic 63–116; PULSE 77–87; RESP 8–21; TEMP 36.7; O2SAT 89–97
--- NOTE | 2020-11-24 15:30 | RT.EKG_ITS ---
APPROVED REPORT Exam: Resting ECG Reason for Exam: shortness of breath Patient Location: E HR:78 bpm ECG Measurements Heart Rate 78 AXIS IL 214 P 55 QRSd 157 QRS 51 QT 418 T 3 QTc 477 Conclusion Sinus rhythm...normal P axis, V-rate 60- 99 Borderline prolonged IL interval...IL >212, V-rate 50- 90 Probable left atrial enlargement...P >50mS, <-0.10mV V1 Right bundle branch block...QRSd>120, terminal axis(90,270) Physician: unchanged
--- NOTE | 2020-11-24 15:30 | DI.RAD_ITS ---
Exam(s) XR PORTABLE CHEST AP EXAM: XR PORTABLE CHEST AP CLINICAL HISTORY: shortness of breath, r/o acute disease TECHNIQUE: 2D digital imaging was performed. COMPARISON: CR XR PORTABLE CHEST AP from 08/15/2019 CR,XR XR CHEST 2V PA LATERAL from 07/20/2020 FINDINGS: MEDIASTINUM: Normal. HEART: Mild cardiomegaly. PULMONARY VASCULATURE: There is tortuosity of the thoracic aorta. There is again seen an aortic sten t. LUNGS: Increased interstitial lung markings are present. No focal consolidating infiltrate. PLEURAL SPACE: No pleural effusion or pneumothorax. BONE:Within normal limits for the patient's age. OTHER FINDINGS:There are surgical clips in the neck. IMPRESSION: Increased interstitial markings. This may be due to interstitial edema or pneumonia. Please correla te clinically. DATA REPOSITORY: RADIATION DOSE DELIVERED:
--- NOTE | 2020-11-24 15:37 | ED.GENADUL_ITS ---
Discharge Plan Disposition Patient Disposition: HOME Condition: Improving Discharge Details Clinical Impression: Shortness of breath, Mucus plugging of bronchi Primary Care Provider: Jackie Prasad ED Provider: Wanda Villasenor Home Meds and New Rx's Prescriptions: Continued finasteride 5 mg tablet 5 mg PO DAILY Qty: 90 RF: 3 omeprazole 20 mg capsule,delayed release(DR/EC) 20 mg feeding tube BID Qty: 90 RF: 4 acetylcysteine 100 mg/mL (10 %) solution 4 ml inhalation Q4H RF: 0 amlodipine 5 mg tablet 5 mg PO DAILY RF: 0 ferrous sulfate 300 mg (60 mg iron)/5 mL liquid 300 mg PO DAILY RF: 0 gabapentin 100 mg capsule 200 mg PO BID RF: 0 levothyroxine 112 mcg/mL solution 112 mcg PO DAILY RF: 0 ropinirole 1 mg tablet 1 mg PO BID RF: 0 polyethylene glycol 3350 [Miralax] 17 gram/dose powder 17 g PO PRN RF: 0 Adult Probiotic 3 billion cell capsule 3,000 mmu cells PO BID RF: 0 rosuvastatin 40 mg tablet 40 mg feeding tube HS Qty: 90 RF: 4 3 mLs Saline Vials 1 vial inhalation .5 times a day Qty: 150 RF: 4 alfuzosin [Uroxatral] 10 mg tablet extended release 24 hr 10 mg PO DAILY Qty: 90 RF: 3 citalopram 20 mg tablet 20 mg PO DAILY Qty: 90 RF: 4 ipratropium-albuterol 0.5 mg-3 mg(2.5 mg base)/3 mL solution for nebulization 3 ml IN QID PRN (Reason: shortness of breath or wheezing) Qty: 90 RF: 4 melatonin 3 MG tablet 6 mg PO HS RF: 0 aspirin 81 mg Tablet,Chewable 81 mg feeding tube DAILY RF: 0 Discharge Instructions Instructions: Dyspnea (ED) Additional Instructions: Take your regular medications as directed. Continue to use your humidified oxygen as directed. Follow-up with your primary care doctor in 1 week. Return to the emergency department with any worsening or new concerning symptoms . 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 Oxygen saturation 89 on room air. He is chronically on 2 L supplemental O2 which increased to 99% at 6 L. Respiratory at bedside attempted suctioning and there appears to be a dried mucous plug. History and presentation does not appear consistent with ACS. Suspect most likely mucous plugging or COPD exacerbation. Will flush with saline and continue to suction. Considering patient's history, will obtain screening labs, portable chest x-ray, EKG. Labs and imaging reviewed. Normal white blood cell count and electrolytes. Troponin negative. Chest x-ray noted a slight diffuse bilateral interstitial prominence which could be due to mild edema or infiltrate. Patient has no complaints of purulent cough or sputum or fever and has a normal white blood cell count, do not see an indication for antibiotics and patient is agreeable. Reassessment of lung exam without wheezing or rhonchi. I do not see an indication for steroids at this time and patient is agreeable. Patient reassessed and he states he feels much better and feels good to go home. Respiratory was able to use humidified oxygen and suction with some thinning of the mucus and removal of some of mucous plug. Advised to follow up with the primary care doctor for re-evaluation. Usual and customary return precautions given prior to discharge. Medical Records Medical records reviewed: Yes I reviewed the patient's medical records. Imaging Data Radiologic Study: Radiologist's impression: XR Chest Exam date and time: 11/24/2020 3:45 PM Age: 75 years old Clinical indication: Shortness of breath TECHNIQUE: Imaging protocol: XR of the chest. Views: 1 view. COMPARISON: CR XR CHEST 2V PA LATERAL 07/20/2020 6:22 PM FINDINGS: Tubes, catheters and devices: Surgical clips in the neck. Tracheostomy Lungs: Diffuse bilateral interstitial prominence appears progressed compared with 07/20/2020. This could be due to edema or infiltrate Pleural spaces: Unremarkable. No pleural effusion. No pneumothorax. Heart/Mediastinum: Mild cardiac enlargement. Vasculature: Calcified and tortuous aorta with a stent in the lower thoracic and upper abdominal aorta. Bones/joints: Unremarkable. IMPRESSION: 1. Slight diffuse bilateral interstitial prominence could be due to mild edema or infiltrate and has progressed slightly since 07/20/2020. No other appreciable change Lab Data Lab results reviewed: Yes I reviewed the patient's lab results. Labs: Laboratory Tests Range/Units 11/24/20 11/24/20 16:00 16:00 WBC (4.4-10.8) 10^3/uL 7.82 RBC (4.36-5.78) 10^6/uL 4.39 Hgb (13.5-17.5) g/dL 13.5 Hct (40.0-50.0) % 41.1 MCV (80-95) fL 93.6 MCH (27.0-33.0) pg 30.8 MCHC (32.0-36.0) % 32.8 RDW (11.8-14.1) % 12.9 Plt Count (130-400) 10^3/uL 231 MPV (8.0-11.0) fL 9.2 Immature Gran % 0.3 Neutrophils % 72.6 Lymphocytes % 14.6 Monocytes % 8.6 Eosinophils % 2.7 Basophils % 1.2 Nucleated RBC % % 0 Absolute Neutrophils (1.2-6.7) 10^3/uL 5.69 Absolute Lymphocytes (1.2-3.4) 10^3/uL 1.14 L Absolute Monocytes (0.1-0.8) 10^3/uL 0.67 Absolute Eosinophils (0.0-0.7) 10^3/uL 0.21 Absolute Basophils (0.0-0.2) 10^3/uL 0.09 Sodium (136-145) mmol/L 140 Potassium (3.5-5.1) mmol/L 3.7 Chloride (98-107) mmol/L 99 Carbon Dioxide (21.0-32.0) mmol/L 30.6 Anion Gap (3-11) mmol/L 10.4 BUN (7-18) mg/dL 24 H Creatinine (0.70-1.30) mg/dL 1.0 Estimated GFR/1.73 m2 (mL/min/1.73m2) >= 60.00 Glucose (74-106) mg/dL 98 Calcium (8.5-10.1) mg/dL 8.9 Magnesium (1.8-2.4) mg/dL 2.1 Total Bilirubin (0.2-1.0) mg/dL 0.4 AST (15-37) U/L 17 ALT (16-63) U/L 19 Alkaline Phosphatase (46-116) U/L 88 Troponin I (<0.06) ng/mL < 0.05 Total Protein (6.4-8.2) g/dL 7.4 Albumin (3.4-5.0) g/dL 3.3 L ECG Data Attestation: I personally reviewed and interpreted this ECG (s) as follows: Interpretation: Rate of 78, sinus, right bundle branch block, no STEMI, no change from previous. HPI General Mode of arrival: wheelchair . Date/Time Provider Initiated Documentation: 11/24/20 15:36 . Limitations to Documentation: no limitations . Information obtained by: patient and family . HPI Narrative: Patient is a 75-year-old with a history of COPD, laryngeal cancer with a history of radical laryngectomy with tracheostomy chronically dependent on 6 liters supplemental oxygen presents for worsening shortness of breath over the last few weeks, and worse over the last week, especially today. He presented to the ED stating he feels that he needs suctioning. He did use his chest physical therapy today without relief. He denies any fever or chest pain. Related Data Home Medications Medication Instructions Recorded Confirmed omeprazole 20 mg capsule,delayed 20 mg FEEDING TUBE BID #90 cap 10/05/1906/04 release aspirin 81 mg FEEDING TUBE DAILY 10/29/19 11/24/20 melatonin 6 mg PO HS 10/29/19 11/24/20 rosuvastatin 40 mg tablet 40 mg FEEDING TUBE HS #90 tab 12/14/19 11/24/20 3 mLs Saline Vials 1 vial INHALATION .5 times a day 01/02/20 11/24/20 #150 vial alfuzosin 10 mg tablet,extended 10 mg PO DAILY #90 tab-cap 04/18/20 11/24/20 release 24 hr citalopram 20 mg tablet 20 mg PO DAILY #90 tab 05/18/20 11/24/20 acetylcysteine 100 mg/mL (10 %) 4 ml INHALATION Q4H ml 07/05/20 11/24/20 solution finasteride 5 mg tablet 5 mg PO DAILY #90 tab 07/11/20 11/24/20 ipratropium 0.5 mg-albuterol 3 mg 3 ml IN QID PRN #90 ml 07/30/20 11/24/20 (2.5 mg base)/3 mL nebulization soln amlodipine 5 mg tablet 5 mg PO DAILY 10/04/20 11/24/20 ferrous sulfate 300 mg (60 mg 300 mg PO DAILY 10/04/20 11/24/20 iron)/5 mL oral liquid gabapentin 100 mg capsule 200 mg PO BID cap 10/04/20 11/24/20 lactobacillus combination no.8 3 3,000 mmu cells PO BID cap 10/04/20 11/24/20 billion cell capsule levothyroxine 112 mcg/mL oral 112 mcg PO DAILY 10/04/20 11/24/20 solution polyethylene glycol 3350 17 17 g PO PRN g 10/04/20 11/24/20 gram/dose oral powder ropinirole 1 mg tablet 1 mg PO BID 10/04/20 11/24/20 Previous Rx's Medication Instructions Recorded omeprazole 20 mg capsule,delayed 20 mg FEEDING TUBE BID #90 cap 10/05/19 release rosuvastatin 40 mg tablet 40 mg FEEDING TUBE HS #90 tab 12/14/19 3 mLs Saline Vials 1 vial INHALATION .5 times a day 01/02/20 #150 vial alfuzosin 10 mg tablet,extended 10 mg PO DAILY #90 tab-cap 04/18/20 release 24 hr citalopram 20 mg tablet 20 mg PO DAILY #90 tab 05/18/20 finasteride 5 mg tablet 5 mg PO DAILY #90 tab 07/11/20 ipratropium 0.5 mg-albuterol 3 mg 3 ml IN QID PRN #90 ml 07/30/20 (2.5 mg base)/3 mL nebulization soln Allergies Allergy/AdvReac Type Severity Reaction Status Date / Time pollen extracts Allergy Mild Verified 11/24/20 15:53 Tetracyclines Allergy Unknown SKIN RASH Verified 11/24/20 15:53 General CHER: 3 Review of Systems All systems reviewed & are unremarkable except as noted in HPI and below Constitutional Constitutional: Reports as per HPI, Denies chills and Denies fever(s) Eyes Eyes: Denies blurry vision ENT Ears, Nose, Mouth, and Throat: Denies dizziness, Denies sore throat and Denies throat swelling Cardiovascular Cardiovascular: Denies chest pain and Reports dyspnea Respiratory Respiratory: Denies cough and Reports dyspnea Gastrointestinal Gastrointestinal: Denies abdominal pain, Denies diarrhea and Denies vomiting Genitourinary Genitourinary: Denies hematuria and Denies dysuria Musculoskeletal Musculoskeletal: Denies back pain and Denies numbness Integumentary/Breasts Skin/Breast: Denies lesions and Denies rash Neurologic Neurologic: Denies dizziness, Denies localized weakness and Denies numbness Allergic/Immunologic Allergic/Immunologic: Denies throat swelling [facility] Medical History (Updated 11/24/20 @ 17:18 by Wanda Villasenor DO) 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 Anemia Anxiety Anxiety Aphonia post total laryngectomy [facility] [place], [place] 2007 Blockage of feeding tube 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/17) CAD (coronary artery disease) Complication of feeding tube Conjunctivitis, chronic COPD (chronic obstructive pulmonary disease) COPD (chronic obstructive pulmonary disease) Cortical cataract of right eye Depression Depressive disorder (11/18/12) 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 History of esophagogastroduodenoscopy (EGD) (~08/10/19) Daron Casper APRN @ [facility] [place], [place]: hiatal hernia, GERD, Reyes's esophagitis, neuromuscular dysfunction History of laryngectomy History of radical laryngectomy History of tarsorrhaphy PROCEDURES RT/LEFT HEART CARD CATH COMPLETE LARYNGECTOMY Esophagoplasty S/P AAA (abdominal aortic aneurysm) repair Status post cardiac catheterization Status post cataract extraction and insertion of intraocular lens of left eye (04/30/12) Status post cataract extraction and insertion of intraocular lens of right eye (07/12/18) Status post laryngectomy Social History Smoking/Tobacco Use Status: Former Tobacco Use Tobacco: How many years used: 30 Smoking risk assessment performed?: Yes Alcohol Intake: never Drug use: Never Substance use type: does not use Current gender identity: male Do you feel safe at home: Yes Do you feel safe in your relationship?: Yes Exam Const General: cooperative, no acute distress and ill appearing chronically Orientation: alert and awake HENMT Head: normal to inspection Face and sinus: normal facial exam Eyes General: appearance normal, both eyes and all related structures Pupils: PERRL EOM: EOM intact bilaterally Neck Neck: normal visual inspection and No submandibular swelling Lymphatic: no lymphadenopathy noted Chest Chest: normal inspection of the chest and no tenderness Resp Effort & Inspection: normal respiratory effort and able to speak in complete sentences Auscultation: wheezes scattered wheezes Cardio Rate: regular rate Rhythm: regular rhythm GI Inspection: normal to inspection Palpation: soft, not firm, not rigid and nontender Auscultation: normal bowel sounds Skin General skin exam: no rashes or lesions noted Neuro General: patient alert, patient awake and patient oriented x3 Cognition: normal cognition Speech: speech normal Motor: muscle tone normal throughout Sensory Exam: no sensory deficits noted Extrem General: normal to inspection, full ROM, capillary refill normal, no calf tenderness bilaterally and no edema Psych Appearance: grossly normal Mental Status: mental status grossly normal Speech and Movement: speech and movement normal Affect: normal affect
[2020-11-24 16:05] LABS: Abs Immature Grans 0.02 10^3/uL (0.0-0.06); Absolute Basophil Count 0.09 10^3/uL (0.0-0.2); Absolute Eosinophil Count 0.21 10^3/uL (0.0-0.7); Absolute Lymphocyte Count 1.14 10^3/uL (1.2-3.4); Absolute Monocyte Count 0.67 10^3/uL (0.1-0.8); Absolute Neutrophil Count 5.69 10^3/uL (1.2-6.7); Basophils % 1.2; Eosinophils % 2.7; HCT 41.1 % (40.0-50.0); HGB 13.5 g/dL (13.5-17.5); Immature Grans % 0.3; Lymphocytes % 14.6; MCH 30.8 pg (27.0-33.0); MCHC 32.8 % (32.0-36.0); MCV 93.6 fL (80-95); MPV 9.2 fL (8.0-11.0); Monocytes % 8.6; Neutrophils % 72.6; Nucleated RBC 0 %; Platelet Count 231 10^3/uL (130-400); RBC 4.39 10^6/uL (4.36-5.78); RDW 12.9 % (11.8-14.1); RDW-SD 44.1 fL; WBC 7.82 10^3/uL (4.4-10.8)
[2020-11-24] MEDS: Albuterol/Ipratropium 3 ML UPD VIAL UPD (16:15)
[2020-11-24 16:28] LABS: ALT 19 U/L (16-63); AST 17 U/L (15-37); Albumin 3.3 g/dL (3.4-5.0); Alkaline Phosphatase 88 U/L (46-116); Anion Gap 10.4 mmol/L (3-11); BUN 24 mg/dL (7-18); Bilirubin, Total 0.4 mg/dL (0.2-1.0); CO2 30.6 mmol/L (21.0-32.0); Calcium 8.9 mg/dL (8.5-10.1); Chloride 99 mmol/L (98-107); Glucose 98 mg/dL (74-106); Magnesium 2.1 mg/dL (1.8-2.4); Potassium 3.7 mmol/L (3.5-5.1); Sodium 140 mmol/L (136-145); Total Protein 7.4 g/dL (6.4-8.2)
[2020-11-24 16:48] LABS: Troponin I < 0.05 ng/mL (<0.06)
--- NOTE | 2020-11-24 16:56 | DI.VRAD_ITS ---
PROCEDURE INFORMATION: Exam: XR Chest Exam date and time: 11/24/2020 3:45 PM Age: 75 years old Clinical indication: Shortness of breath TECHNIQUE: Imaging protocol: XR of the chest. Views: 1 view. COMPARISON: CR XR CHEST 2V PA LATERAL 07/20/2020 6:22 PM FINDINGS: Tubes, catheters and devices: Surgical clips in the neck. Tracheostomy Lungs: Diffuse bilateral interstitial prominence appears progressed compared with 07/20/2020. This could be due to edema or infiltrate Pleural spaces: Unremarkable. No pleural effusion. No pneumothorax. Heart/Mediastinum: Mild cardiac enlargement. Vasculature: Calcified and tortuous aorta with a stent in the lower thoracic and upper abdominal aorta. Bones/joints: Unremarkable. IMPRESSION: 1. Slight diffuse bilateral interstitial prominence could be due to mild edema or infiltrate and has progressed slightly since 07/20/2020. No other appreciable change Dictated and Authenticated by: Dary Malone MD. Ordering:MICHAEL Muñoz MD
--- NOTE | 2020-11-24 18:44 | RESPIRATORY ---
Pt complained of feeling SOB and says it has progressively gotten worse. Laryngectomy tube looks clean, no occlusion. Sx scant amount of thick sputum. Pt placed on HHF via trach collar and neb was given. Pt says he feels the humidity helped and he's able to breathe easy. I advised pt and pt's that although he does not like his humidity device at home that has a heater he should be using it daily. No complications or concerns with pt
== END 2020-11-24 17:25 | disposition home or self-care (01) ==
PROVIDERS: Emergency Provider Physician Assistant; PCP Family Medicine
DX: R06.02 Shortness of breath (principal); J98.09 Other diseases of bronchus, not elsewhere classified; R09.02 Hypoxemia
CPT/HCPCS: 36415; 80053; 93005; 94640; 99285; 71045; 83735; 84484; 85025; 93010; J7620

== ENCOUNTER → 2020-12-24 14:46 | Outpatient (BNVA) | payer MEDICARE, MEDICAID, SELFPAY | PROVIDERS: Referring Provider Family Medicine; Visit Provider Nurse Practitioner Gerontology | DX: N40.1 Benign prostatic hyperplasia with lower urinary tract symptoms (principal); N13.8 Other obstructive and reflux uropathy; Z79.899 Other long term (current) drug therapy | CPT/HCPCS: 99214 ==

== ENCOUNTER 2021-01-03 14:46 | Emergency (ER) | payer MEDICARE, MEDICAID, SELFPAY ==
[2021-01-03 15:09] VITALS: BP 101/73; PULSE 73; TEMP 36.8; O2SAT 96
--- NOTE | 2021-01-03 16:16 | ED.GENADUL_ITS ---
Discharge Plan Disposition Patient Disposition: HOME Condition: Stable Discharge Details Clinical Impression: Left arm numbness Primary Care Provider: Unknown,Unknown ED Provider: Elysia Griffin Home Meds and New Rx's Prescriptions: No Action finasteride 5 mg tablet 5 mg PO DAILY Qty: 90 RF: 3 omeprazole 20 mg capsule,delayed release(DR/EC) 20 mg feeding tube BID Qty: 90 RF: 4 acetylcysteine 100 mg/mL (10 %) solution 4 ml inhalation Q4H RF: 0 amlodipine 5 mg tablet 5 mg PO DAILY RF: 0 ferrous sulfate 300 mg (60 mg iron)/5 mL liquid 300 mg PO DAILY RF: 0 gabapentin 100 mg capsule 200 mg PO BID RF: 0 levothyroxine 112 mcg/mL solution 112 mcg PO DAILY RF: 0 ropinirole 1 mg tablet 1 mg PO BID RF: 0 polyethylene glycol 3350 [Miralax] 17 gram/dose powder 17 g PO PRN RF: 0 Adult Probiotic 3 billion cell capsule 3,000 mmu cells PO BID RF: 0 rosuvastatin 40 mg tablet 40 mg feeding tube HS Qty: 90 RF: 4 3 mLs Saline Vials 1 vial inhalation .5 times a day Qty: 150 RF: 4 alfuzosin [Uroxatral] 10 mg tablet extended release 24 hr 10 mg PO DAILY Qty: 90 RF: 3 citalopram 20 mg tablet 20 mg PO DAILY Qty: 90 RF: 4 ipratropium-albuterol 0.5 mg-3 mg(2.5 mg base)/3 mL solution for nebulization 3 ml IN QID PRN (Reason: shortness of breath or wheezing) Qty: 90 RF: 4 melatonin 3 MG tablet 6 mg PO HS RF: 0 aspirin 81 mg Tablet,Chewable 81 mg feeding tube DAILY RF: 0 Discharge Instructions Instructions: Paresthesia (ED) Additional Instructions: A outpatient left upper extremity ultrasound was ordered they will call you. You may return to the ER for result. Follow up with primary care provider in 3-5 days. Return to ED sooner if any worsening or concerns. Increase oral fluids. Return to the ED for any worsening numbness, confusion, chest pain, weakness, problems with blood circulation if your hand turns cold or blue. Discharge Data Discharge Date/Time-TO BE ENTERED AT DEPARTURE: 01/03/21 17:02 Medical Decision Making 76-year-old male who presents to the ER chief complaint left arm and hand numbness since 9 AM this morning. He has a past medical history of coronary artery disease, alcoholic peripheral neuropathy, anxiety, COPD, depression, laryngectomy laryngeal cancer, hypertension hyperlipidemia, peripheral arterial occlusive disease, peripheral neuropathy and restless leg syndrome. Patient denies any chest pain increased shortness of breath fever nausea vomiting diarrhea or any other associated symptoms. Patient states that he was on his way back from [facility] seen a photographic equipment mechanic this morning when he had some numbness and tingling down to his fingers. He did discuss this with the photographic equipment mechanic who was not concerned at that time. On initial exam extremities pink warm dry, radial and ulnar pulses intact cap refill less than 2 seconds. Patient has no new weakness. He does have a history of a rotator cuff surgery to the same arm and this has happened from time to time. At this time I will order an outpatient ultrasound there does not seem to be any signs or symptoms of vascular compromise or any acute issue. Discussed return instructions and follow-up with PCP patient and caregiver verbalized understanding. This text was generated using [employer] system, please disregard any oddities of phrase or misspellings. HPI General Date/Time Provider Initiated Documentation: 01/03/21 15:06 . Limitations to Documentation: no limitations . Information obtained by: patient, RN notes reviewed and old records reviewed . HPI Narrative: 76-year-old male who presents to the ER chief complaint left arm and hand numbness since 9 AM this morning. He has a past medical history of coronary artery disease, alcoholic peripheral neuropathy, anxiety, COPD, depression, laryngectomy laryngeal cancer, hypertension hyperlipidemia, peripheral arterial occlusive disease, peripheral neuropathy and restless leg syndrome. Patient denies any chest pain increased shortness of breath fever nausea vomiting diarrhea or any other associated symptoms. Patient states that he was on his way back from [facility] seen a photographic equipment mechanic this morning when he had some numbness and tingling down to his fingers. He did discuss this with the photographic equipment mechanic who was not concerned at that time. On initial exam extremities pink warm dry, radial and ulnar pulses intact cap refill less than 2 seconds. Patient has no new weakness. He does have a history of a rotator cuff surgery to the same arm and this has happened from time to time. Related Data Home Medications Medication Instructions Recorded Confirmed omeprazole 20 mg capsule,delayed 20 mg FEEDING TUBE BID #90 cap 10/05/19 11/24/20 release aspirin 81 mg FEEDING TUBE DAILY 10/29/19 11/24/20 melatonin 6 mg PO HS 10/29/19 11/24/20 rosuvastatin 40 mg tablet 40 mg FEEDING TUBE HS #90 tab 12/14/19 11/24/20 3 mLs Saline Vials 1 vial INHALATION .5 times a day 01/02/20 11/24/20 #150 vial alfuzosin 10 mg tablet,extended 10 mg PO DAILY #90 tab-cap 04/18/20 12/24/20 release 24 hr citalopram 20 mg tablet 20 mg PO DAILY #90 tab 05/18/20 11/24/20 acetylcysteine 100 mg/mL (10 %) 4 ml INHALATION Q4H ml 07/05/20 11/24/20 solution finasteride 5 mg tablet 5 mg PO DAILY #90 tab 07/11/20 12/24/20 ipratropium 0.5 mg-albuterol 3 mg 3 ml IN QID PRN #90 ml 07/30/20 11/24/20 (2.5 mg base)/3 mL nebulization soln amlodipine 5 mg tablet 5 mg PO DAILY 10/04/20 11/24/20 ferrous sulfate 300 mg (60 mg 300 mg PO DAILY 10/04/20 11/24/20 iron)/5 mL oral liquid gabapentin 100 mg capsule 200 mg PO BID cap 10/04/20 11/24/20 lactobacillus combination no.8 3 3,000 mmu cells PO BID cap 10/04/20 11/24/20 billion cell capsule levothyroxine 112 mcg/mL oral 112 mcg PO DAILY 10/04/20 11/24/20 solution polyethylene glycol 3350 17 17 g PO PRN g 10/04/20 11/24/20 gram/dose oral powder ropinirole 1 mg tablet 1 mg PO BID 10/04/20 11/24/20 Previous Rx's Medication Instructions Recorded omeprazole 20 mg capsule,delayed 20 mg FEEDING TUBE BID #90 cap 10/05/19 release rosuvastatin 40 mg tablet 40 mg FEEDING TUBE HS #90 tab 12/14/19 3 mLs Saline Vials 1 vial INHALATION .5 times a day 01/02/20 #150 vial alfuzosin 10 mg tablet,extended 10 mg PO DAILY #90 tab-cap 04/18/20 release 24 hr citalopram 20 mg tablet 20 mg PO DAILY #90 tab 05/18/20 finasteride 5 mg tablet 5 mg PO DAILY #90 tab 07/11/20 ipratropium 0.5 mg-albuterol 3 mg 3 ml IN QID PRN #90 ml 07/30/20 (2.5 mg base)/3 mL nebulization soln Allergies Allergy/AdvReac Type Severity Reaction Status Date / Time pollen extracts Allergy Mild Verified 11/24/20 15:53 Tetracyclines Allergy Unknown SKIN RASH Verified 11/24/20 15:53 General Stated Complaint: Orthopedic CHER: 3 Review of Systems All systems reviewed & are unremarkable except as noted in HPI and below Cardiovascular Cardiovascular: Denies chest pain, Denies chest pain at rest, Denies chest pain with activity, Denies dyspnea and Reports dyspnea on exertion (At baseline) Respiratory Respiratory: Reports as per HPI, Denies dyspnea and Reports dyspnea on exertion (At baseline) Musculoskeletal Musculoskeletal: Denies back pain, Denies deformity, Denies joint swelling, Reports limited range of motion (At baseline), Denies loss of height, Reports numbness, Denies stiffness and Reports tingling (Left Arm radiates into fingers) Neurologic Neurologic: Reports numbness and Reports tingling (Left Arm radiates into fingers) [facility] Medical History (Updated 01/03/21 @ 16:50 by Elysia Griffin) 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 Anemia Anxiety Anxiety Aphonia post total laryngectomy [facility] [place] 2007 Blockage of feeding tube 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/17) CAD (coronary artery disease) Complication of feeding tube Conjunctivitis, chronic COPD (chronic obstructive pulmonary disease) COPD (chronic obstructive pulmonary disease) Cortical cataract of right eye Depression Depressive disorder (11/18/12) 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 Dyspnea on exertion Feeding tube dysfunction Hematoma following procedure Herpes zoster History of alcoholism sober x 25yrs History of tobacco use Hyperlipemia Hyperlipidemia (11/18/12) Hypertension Hypertension (11/18/12) Hypothyroidism Hypothyroidism (11/18/12) Impingement syndrome, shoulder, left (10/10/16) -2016: PT alexg. 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/16-SESSILE SERRATED ADENOMA Tobacco use Surgical History (Updated 07/22/20 @ 09:57 by Emmanuelle Manley NP) 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) Sin-mullins button placed by Dr Elia Mcdonald, [facility] History of esophagogastroduodenoscopy (EGD) (~08/10/19) Daron Casper APRN @ [facility] [place]: hiatal hernia, GERD, Reyes's esophagitis, neuromuscular dysfunction History of laryngectomy History of radical laryngectomy History of tarsorrhaphy PROCEDURES RT/LEFT HEART CARD CATH COMPLETE LARYNGECTOMY Esophagoplasty S/P AAA (abdominal aortic aneurysm) repair Status post cardiac catheterization Status post cataract extraction and insertion of intraocular lens of left eye (04/30/12) Status post cataract extraction and insertion of intraocular lens of right eye (07/12/18) Status post laryngectomy Social History Smoking/Tobacco Use Status: Former Tobacco Use Tobacco: How many years used: 30 Smoking risk assessment performed?: Yes Alcohol Intake: never Drug use: Never Substance use type: does not use Current gender identity: male Do you feel safe at home: Yes Do you feel safe in your relationship?: Yes Exam Narrative Exam Narrative: Constitutional: Alert and oriented x3. Appears stated age. Normal body habitus. Head: Normocephalic, no trauma. Eyes: Pupils PERRLA, Red reflex noted, EOM's intact. Right Eyelid symmetrical without lesions, discharge, or swelling. Left eyelidnon-symmetrical and at baseline ENT: Bilateral TM's WNL, External ear normal to inspection, no mastoid TTP, swelling, or erythema, Nasal turbinates WNL, no nasal discharge. Normal dentition, Posterior pharynx WNL, no exudate. Has a tracheostomy tube Chest: RRR, Normal S1, S2, distal pulses intact. Resp: Lungs clear to auscultation bilaterally, no wheezes, rales, or rhonchi. Musculoskeletal: Normal gait, old healed surgical scar noted to the left anterior shoulder, no surrounding erythema or swelling, left upper extremity radial pulses intact, extremity pink warm dry, cap refill less than 2 seconds. Small abrasion noted to left lateral forearm. Skin: Capillary refill less than 2 sec. Neurologic: Cranial nerves II-XII intact. Alert and oriented x 3. DTR's intact. Logistics Management Specialist equal bilateral upper extremities. Hematologic/Lymphatic: No ecchymosis, no lymphadenopathy. Course Vital Signs Vital signs: Vital Signs Temperature 36.8 C 01/03/21 15:09 Pulse 73 01/03/21 15:09 Blood Pressure 101/73 01/03/21 15:09 Pulse Oximetry 96 01/03/21 15:09 Temperature 36.8 C 01/03/21 15:09 Temperature Source Temporal Artery Scan 01/03/21 15:09 Pulse 73 01/03/21 15:09 Blood Pressure 101/73 01/03/21 15:09 Blood Pressure Position Supine 01/03/21 15:09 Pulse Oximetry 96 01/03/21 15:09 Oxygen Delivery Method Trach Collar 01/03/21 15:09 Oxygen Flow Rate 6 01/03/21 15:09 Pain Level 0 01/03/21 15:09
[2021-01-03 16:43] VITALS: BP 99/68; PULSE 89; PULSE 91; RESP 16; O2SAT 97
[2021-01-03 16:44] VITALS: PULSE 90; RESP 15; O2SAT 96
[2021-01-03 16:50] VITALS: PULSE 87; RESP 23; O2SAT 97
[2021-01-03 16:58] VITALS: BP 99/63; PULSE 88; RESP 24; TEMP 36.6; O2SAT 98
== END 2021-01-03 17:02 | disposition home or self-care (01) ==
PROVIDERS: Emergency Provider Registered Nurse Emergency
DX: R20.0 Anesthesia of skin (principal)
CPT/HCPCS: 99282

== ENCOUNTER 2021-01-04 08:39 | Outpatient (CLI) | payer MEDICARE, MEDICAID, SELFPAY ==
--- NOTE | 2021-01-04 | DI.US_ITS ---
Exam(s) US UPPER EXTREMITY VENOUS LT EXAM: US UPPER EXTREMITY VENOUS LT CLINICAL HISTORY: LEFT ARM NUMBESS AND TINGLING, M79.602. TECHNIQUE: Ultrasound examination of the left upper extremity venous system(s) is performed using gr ayscale, color-flow, and spectral Doppler analysis. COMPARISON: No exams were available for comparison FINDINGS: The left internal jugular, axillary, subclavian, cephalic, basilic, brachial, radial, and ulnar veins are patent without evidence of thrombosis. IMPRESSION: No DVT. DATA REPOSITORY:
== END 2021-01-04 08:59 ==
PROVIDERS: Visit Provider Registered Nurse Emergency
DX: R20.0 Anesthesia of skin (principal); R20.2 Paresthesia of skin; M79.602 Pain in left arm
CPT/HCPCS: 93971

== ENCOUNTER 2021-01-04 12:54 | Emergency (ER) | payer MEDICARE, MEDICAID, SELFPAY ==
[2021-01-04 12:59] VITALS: BP 123/65; PULSE 79; RESP 18; TEMP 36.8; O2SAT 93
--- NOTE | 2021-01-04 13:13 | ED.GENADUL_ITS ---
Discharge Plan Disposition Patient Disposition: HOME Condition: Good Discharge Details Clinical Impression: Left arm numbness Primary Care Provider: Unknown,Unknown ED Provider: Antonina Dowling Home Meds and New Rx's Prescriptions: Continued finasteride 5 mg tablet 5 mg PO DAILY Qty: 90 RF: 3 omeprazole 20 mg capsule,delayed release(DR/EC) 20 mg feeding tube BID Qty: 90 RF: 4 acetylcysteine 100 mg/mL (10 %) solution 4 ml inhalation Q4H RF: 0 amlodipine 5 mg tablet 5 mg PO DAILY RF: 0 ferrous sulfate 300 mg (60 mg iron)/5 mL liquid 300 mg PO DAILY RF: 0 gabapentin 100 mg capsule 200 mg PO BID RF: 0 levothyroxine 112 mcg/mL solution 112 mcg PO DAILY RF: 0 ropinirole 1 mg tablet 1 mg PO BID RF: 0 polyethylene glycol 3350 [Miralax] 17 gram/dose powder 17 g PO PRN RF: 0 Adult Probiotic 3 billion cell capsule 3,000 mmu cells PO BID RF: 0 rosuvastatin 40 mg tablet 40 mg feeding tube HS Qty: 90 RF: 4 3 mLs Saline Vials 1 vial inhalation .5 times a day Qty: 150 RF: 4 alfuzosin [Uroxatral] 10 mg tablet extended release 24 hr 10 mg PO DAILY Qty: 90 RF: 3 citalopram 20 mg tablet 20 mg PO DAILY Qty: 90 RF: 4 ipratropium-albuterol 0.5 mg-3 mg(2.5 mg base)/3 mL solution for nebulization 3 ml IN QID PRN (Reason: shortness of breath or wheezing) Qty: 90 RF: 4 melatonin 3 MG tablet 6 mg PO HS RF: 0 aspirin 81 mg Tablet,Chewable 81 mg feeding tube DAILY RF: 0 Discharge Instructions Additional Instructions: Please follow-up with your primary care physician, should he has skin discoloration, worsening pain, neck pain, or weakness, chest pain, please return immediately for reevaluation Your ultrasound today did not show evidence of blood clot or any other abnormality I recommend reevaluation in 48 to 72 hours and repeat ultrasound in 1 week with persistent symptoms Medical Decision Making Patient is alert and oriented, his exam is nonfocal His ultrasound does not show acute abnormality per radiology interpretation in my review He is instructed to follow-up with his primary care physician and repeat ultrasound in 1 week if persistent symptoms Return precautions discussed patient expressed understanding Medical Records Medical records reviewed: Yes I reviewed the patient's medical records. HPI General Mode of arrival: ambulatory . Date/Time Provider Initiated Documentation: 01/04/21 12:54 . Limitations to Documentation: no limitations . Information obtained by: patient . HPI Narrative: This 76-year-old gentleman with history of laryngectomy, COPD, laryngeal cancer, peripheral neuropathy presents with report of left arm numbness. He was evaluated in the emergency room yesterday. He was sent home after evaluation with an ultrasound that was pending. Patient states that his symptoms have improved today. He denies any weakness, numbness, tingling, chest pain, or shortness of breath. Denies any additional concerns at this time. Related Data Home Medications Medication Instructions Recorded Confirmed omeprazole 20 mg capsule,delayed 20 mg FEEDING TUBE BID #90 cap 10/05/19 01/04/21 release aspirin 81 mg FEEDING TUBE DAILY 10/29/19 01/04/21 melatonin 6 mg PO HS 10/29/19 01/04/21 rosuvastatin 40 mg tablet 40 mg FEEDING TUBE HS #90 tab 12/14/19 01/04/21 3 mLs Saline Vials 1 vial INHALATION .5 times a day 01/02/20 01/04/21 #150 vial alfuzosin 10 mg tablet,extended 10 mg PO DAILY #90 tab-cap 04/18/20 01/04/21 release 24 hr citalopram 20 mg tablet 20 mg PO DAILY #90 tab 05/18/20 01/04/21 acetylcysteine 100 mg/mL (10 %) 4 ml INHALATION Q4H ml 07/05/20 01/04/21 solution finasteride 5 mg tablet 5 mg PO DAILY #90 tab 07/11/20 01/04/21 ipratropium 0.5 mg-albuterol 3 mg 3 ml IN QID PRN #90 ml 07/30/20 01/04/21 (2.5 mg base)/3 mL nebulization soln amlodipine 5 mg tablet 5 mg PO DAILY 10/04/20 01/04/21 ferrous sulfate 300 mg (60 mg 300 mg PO DAILY 10/04/20 01/04/21 iron)/5 mL oral liquid gabapentin 100 mg capsule 200 mg PO BID cap 10/04/20 01/04/21 lactobacillus combination no.8 3 3,000 mmu cells PO BID cap 10/04/20 01/04/21 billion cell capsule levothyroxine 112 mcg/mL oral 112 mcg PO DAILY 10/04/20 01/04/21 solution polyethylene glycol 3350 17 17 g PO PRN g 10/04/20 01/04/21 gram/dose oral powder ropinirole 1 mg tablet 1 mg PO BID 10/04/20 01/04/21 Previous Rx's Medication Instructions Recorded omeprazole 20 mg capsule,delayed 20 mg FEEDING TUBE BID #90 cap 10/05/19 release rosuvastatin 40 mg tablet 40 mg FEEDING TUBE HS #90 tab 12/14/19 3 mLs Saline Vials 1 vial INHALATION .5 times a day 01/02/20 #150 vial alfuzosin 10 mg tablet,extended 10 mg PO DAILY #90 tab-cap 04/18/20 release 24 hr citalopram 20 mg tablet 20 mg PO DAILY #90 tab 05/18/20 finasteride 5 mg tablet 5 mg PO DAILY #90 tab 07/11/20 ipratropium 0.5 mg-albuterol 3 mg 3 ml IN QID PRN #90 ml 07/30/20 (2.5 mg base)/3 mL nebulization soln Allergies Allergy/AdvReac Type Severity Reaction Status Date / Time pollen extracts Allergy Mild Verified 01/04/21 13:02 Tetracyclines Allergy Unknown SKIN RASH Verified 01/04/21 13:02 General Stated Complaint: Recheck CHER: 4 Review of Systems All systems reviewed & are unremarkable except as noted in HPI and below PFSH Medical History (Updated 01/04/21 @ 13:16 by MARC Dennis) 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 Blockage of feeding tube 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/17) CAD (coronary artery disease) Complication of feeding tube Conjunctivitis, chronic COPD (chronic obstructive pulmonary disease) COPD (chronic obstructive pulmonary disease) Cortical cataract of right eye Depression Depressive disorder (11/18/12) 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 MRSA pneumonia Neurotrophic cornea of left eye Nuclear sclerotic cataract of right eye PAOD (peripheral arterial occlusive disease) Peripheral neuropathy (02/21/15) Post herpetic neuralgia Posterior subcapsular age-related cataract, right eye Primary malignant neoplasm of oropharynx ; yearly fup in Feb (last ) 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 [place]: hiatal hernia, GERD, Reyes's esophagitis, neuromuscular dysfunction History of laryngectomy History of radical laryngectomy History of tarsorrhaphy PROCEDURES RT/LEFT HEART CARD CATH COMPLETE LARYNGECTOMY Esophagoplasty S/P AAA (abdominal aortic aneurysm) repair Status post cardiac catheterization Status post cataract extraction and insertion of intraocular lens of left eye (04/30/12) Status post cataract extraction and insertion of intraocular lens of right eye (07/12/18) Status post laryngectomy Social History Smoking/Tobacco Use Status: Former Tobacco Use Tobacco: How many years used: 30 Smoking risk assessment performed?: Yes Alcohol Intake: never Drug use: Never Substance use type: does not use Current gender identity: male Do you feel safe at home: Yes Do you feel safe in your relationship?: Yes Exam Neck Other: No midline tenderness Resp Effort & Inspection: normal respiratory effort Cardio Rate: regular rate Skin General skin exam: no rashes or lesions noted Neuro General: patient alert, patient oriented x3 and CN's II-XI intact bilaterally Extrem Other: Strength and sensation intact in bilateral upper extremities on exam, neurovascularly intact, brisk capillary refill distally Course Vital Signs Vital signs: Vital Signs Temperature 36.8 C 01/04/21 12:59 Pulse 79 01/04/21 12:59 Respiratory Rate 18 01/04/21 12:59 Blood Pressure 123/65 01/04/21 12:59 Pulse Oximetry 93 01/04/21 12:59 Temperature 36.8 C 01/04/21 12:59 Temperature Source Skin 01/04/21 12:59 Pulse 79 01/04/21 12:59 Respiratory Rate 18 01/04/21 12:59 Blood Pressure 123/65 01/04/21 12:59 Blood Pressure Position Sitting 01/04/21 12:59 Pulse Oximetry 93 01/04/21 12:59 Oxygen Delivery Method Nasal Cannula 01/04/21 12:59 Oxygen Flow Rate 6 01/04/21 12:59 Comment 01/04/21 12:59
== END 2021-01-04 13:21 | disposition home or self-care (01) ==
LOC: ER 14:14
PROVIDERS: Emergency Provider Physician Assistant
DX: R20.0 Anesthesia of skin (principal); Z71.2 Person consulting for explanation of examination or test findings

== ENCOUNTER → 2021-01-28 11:28 | Outpatient (BNVA) | payer MEDICARE, MEDICAID, SELFPAY | PROVIDERS: Referring Provider Family Medicine; Visit Provider Surgery | DX: K94.29 Other complications of gastrostomy (principal) | CPT/HCPCS: 43762; 99212 ==

== ENCOUNTER 2021-04-07 19:38 | Inpatient (IN) | payer MEDICARE, MEDICAID, SELFPAY ==
[2021-04-07] VITALS (45 sets, daily range): BP systolic 96–221; BP diastolic 48–125; PULSE 77–122; RESP 5–34; TEMP 36.7–39.1; O2SAT 81–99
--- NOTE | 2021-04-07 19:30 | RT.EKG_ITS ---
APPROVED REPORT Exam: Resting ECG Reason for Exam: shortness of breath Patient Location: E HR:94 bpm ECG Measurements Heart Rate 94 AXIS NH 200 P 62 QRSd 166 QRS 100 QT 393 T -1 QTc 491 Conclusion Sinus rhythm...normal P axis, V-rate 60- 99 Probable left atrial enlargement...P >50mS, <-0.10mV V1 RBBB and LPFB...QRSd >120mS, axis(90,210) significant motion artifact, no obvious st t wave ischemic findings
--- NOTE | 2021-04-07 20:00 | DI.RAD_ITS ---
Exam(s) XR PORTABLE CHEST AP EXAM: XR PORTABLE CHEST AP CLINICAL HISTORY: fever. TECHNIQUE: 2D digital imaging was performed. COMPARISON: CR,XR XR PORTABLE CHEST AP from 11/24/2020 FINDINGS: Heart size is upper normal. The descending thoracic aorta is tortuous and is again noted to contain a stent/EVAR distal to the ao rtic arch. There are no new confluent infiltrates nor pleural effusions. Mild interstitial prominence in both l lara lujan again noted. No progression from the previous November 2020 study. IMPRESSION: No significant radiographic change compared to 11/24/2020 DATA REPOSITORY: RADIATION DOSE DELIVERED: All CT scans at this facility use at least one of these dose optimization techniques: automated exposure control; mA and/or kV adjustment per patient size (includes targeted e xams where dose is matched to clinical indication); or iterative reconstruction.
--- NOTE | 2021-04-07 20:02 | W.ED.GENAD ---
Discharge Plan Disposition Patient Disposition: [facility] INPATIENT Condition: Stable Discharge Details Chief Complaint: SOB Clinical Impression: COPD (chronic obstructive pulmonary disease), Shortness of breath, Fever Primary Care Provider: Unknown,Unknown ED Provider: Kalyan Barreto Home Meds and New Rx's Prescriptions: No Action finasteride 5 mg tablet 5 mg PO DAILY Qty: 90 RF: 3 omeprazole 20 mg capsule,delayed release(DR/EC) 20 mg feeding tube BID Qty: 90 RF: 4 acetylcysteine 100 mg/mL (10 %) solution 4 ml inhalation Q4H RF: 0 amlodipine 5 mg tablet 5 mg PO DAILY RF: 0 ferrous sulfate 300 mg (60 mg iron)/5 mL liquid 300 mg PO DAILY RF: 0 gabapentin 100 mg capsule 200 mg PO BID RF: 0 levothyroxine 112 mcg/mL solution 112 mcg PO DAILY RF: 0 ropinirole 1 mg tablet 1 mg PO BID RF: 0 polyethylene glycol 3350 [Miralax] 17 gram/dose powder 17 g PO PRN RF: 0 Adult Probiotic 3 billion cell capsule 3,000 mmu cells PO BID RF: 0 rosuvastatin 40 mg tablet 40 mg feeding tube HS Qty: 90 RF: 4 3 mLs Saline Vials 1 vial inhalation .5 times a day Qty: 150 RF: 4 alfuzosin [Uroxatral] 10 mg tablet extended release 24 hr 10 mg PO DAILY Qty: 90 RF: 3 citalopram 20 mg tablet 20 mg PO DAILY Qty: 90 RF: 4 ipratropium-albuterol 0.5 mg-3 mg(2.5 mg base)/3 mL solution for nebulization 3 ml IN QID PRN (Reason: shortness of breath or wheezing) Qty: 90 RF: 4 nystatin 100,000 unit/gram powder 1 applic topical BID PRN (Reason: fungal infections ) Qty: 60 RF: 12 melatonin 3 MG tablet 6 mg PO HS RF: 0 aspirin 81 mg Tablet,Chewable 81 mg feeding tube DAILY RF: 0 Medical Decision Making 76 yo male with hx of laryngectomy, COPD, laryngeal cancer, peripheral neuropathy comes in with ems with 2 days of fevers, chills, weakness and persistent cough and increased shortness of breath. He is vaccinated for covid and has no known close contacts. He denies chest pain, has a chronic persistent cough. No abdominal tenderness. no dysuria but has had increased urinary frequency per patient. He denies rashes. He has diminished breath sounds at the bases with some rhonchi and apical wheezing, soft nontender abdomen. He is noted to be febrile on arrival here to 39.1, suspect sepsis secondary to possible pneumonia. Will tx for copd with steroids and neb and obtain a cxr to evaluate for pneumonia. Will send covid test as well as blood cultures, ua/urine culture, cmp, cbc, lactate. labs show wbc of 18, does have leukocytes on urine and few bacteria. Cxr on my read shows small rll infiltrate, vancomycin and zosyn ordered to cover for lung and urine sources of infection. Covid negative. Given his age, fever and wbc of 18 feel he should be hospitalized, will discuss with hospitalist Differential Diagnosis Differential Diagnosis: copd, covid, pneumonia Medical Records Medical records reviewed: Yes I reviewed the patient's medical records. Imaging Data Radiologic Study: Attestation: I personally reviewed and interpreted this imaging study as follows: Imaging: X-Ray My impression: small infiltrate in rll Lab Data Lab results reviewed: Yes I reviewed the patient's lab results. ECG Data Attestation: I personally reviewed and interpreted this ECG (s) as follows: Prior ECG tracings: available for review Interpretation: sinus rhythm, rate of 94, rbbb, significant motion artifact but no obvious st t wave ischemic findings HPI General Mode of arrival: EMS. Date/Time Provider Initiated Documentation: 04/07/21 19:49. Limitations to Documentation: no limitations. Information obtained by: patient. History of Present Illness 76 year old M presents to the emergency department with the chief complaint of fever, described as moderate, Patient reports no radiation. Patient started experiencing this day(s) (2) and it has been constant. No relieving factors improve symptom(s), No exacerbating factors reported . Patient notes shortness of breath. Patient did receive the following treatments prior to arrival, none Related Data Home Medications Medication Instructions Recorded Confirmed omeprazole 20 mg capsule,delayed 20 mg FEEDING TUBE BID #90 cap 10/05/19 04/07/21 release aspirin 81 mg FEEDING TUBE DAILY 10/29/19 04/07/21 melatonin 6 mg PO HS 10/29/19 04/07/21 rosuvastatin 40 mg tablet 40 mg FEEDING TUBE HS #90 tab 12/14/19 04/07/21 3 mLs Saline Vials 1 vial INHALATION .5 times a day 01/02/20 04/07/21 #150 vial alfuzosin 10 mg tablet,extended 10 mg PO DAILY #90 tab-cap 04/18/20 04/07/21 release 24 hr citalopram 20 mg tablet 20 mg PO DAILY #90 tab 05/18/20 04/07/21 acetylcysteine 100 mg/mL (10 %) 4 ml INHALATION Q4H ml 07/05/20 04/07/21 solution finasteride 5 mg tablet 5 mg PO DAILY #90 tab 07/11/20 04/07/21 ipratropium 0.5 mg-albuterol 3 mg 3 ml IN QID PRN #90 ml 07/30/20 04/07/21 (2.5 mg base)/3 mL nebulization soln amlodipine 5 mg tablet 5 mg PO DAILY 10/04/20 04/07/21 ferrous sulfate 300 mg (60 mg 300 mg PO DAILY 10/04/20 04/07/21 iron)/5 mL oral liquid gabapentin 100 mg capsule 200 mg PO BID cap 10/04/20 04/07/21 lactobacillus combination no.8 3 3,000 mmu cells PO BID cap 10/04/20 01/04/21 billion cell capsule levothyroxine 112 mcg/mL oral 112 mcg PO DAILY 10/04/20 04/07/21 solution polyethylene glycol 3350 17 17 g PO PRN g 10/04/20 04/07/21 gram/dose oral powder ropinirole 1 mg tablet 1 mg PO BID 10/04/20 04/07/21 nystatin 100,000 unit/gram topical 1 applic TOPICAL BID PRN #60 g 02/06/21 04/07/21 powder Previous Rx's Medication Instructions Recorded omeprazole 20 mg capsule,delayed 20 mg FEEDING TUBE BID #90 cap 10/05/19 release rosuvastatin 40 mg tablet 40 mg FEEDING TUBE HS #90 tab 12/14/19 3 mLs Saline Vials 1 vial INHALATION .5 times a day 01/02/20 #150 vial alfuzosin 10 mg tablet,extended 10 mg PO DAILY #90 tab-cap 04/18/20 release 24 hr citalopram 20 mg tablet 20 mg PO DAILY #90 tab 05/18/20 finasteride 5 mg tablet 5 mg PO DAILY #90 tab 07/11/20 ipratropium 0.5 mg-albuterol 3 mg 3 ml IN QID PRN #90 ml 07/30/20 (2.5 mg base)/3 mL nebulization soln nystatin 100,000 unit/gram topical 1 applic TOPICAL BID PRN #60 g 02/06/21 powder Allergies Allergy/AdvReac Type Severity Reaction Status Date / Time pollen extracts Allergy Mild Verified 04/07/21 21:50 Tetracyclines Allergy Unknown SKIN RASH Verified 04/07/21 21:50 General Stated Complaint: SOB CHER: 2 Review of Systems All systems reviewed & are unremarkable except as noted in HPI and below Constitutional Constitutional: Denies chills Cardiovascular Cardiovascular: Denies chest pain Gastrointestinal Gastrointestinal: Denies abdominal pain, Denies nausea and Denies vomiting Musculoskeletal Musculoskeletal: Denies joint swelling [facility] Medical History (Updated 04/07/21 @ 21:59 by Kalayn aBrreto MD) 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 Anemia Anxiety Anxiety 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 Blockage of feeding tube 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/17) CAD (coronary artery disease) Complication of feeding tube Conjunctivitis, chronic COPD (chronic obstructive pulmonary disease) COPD (chronic obstructive pulmonary disease) Cortical cataract of right eye Depression Depressive disorder (11/18/12) 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 History of esophagogastroduodenoscopy (EGD) (~08/10/19) Daron Casper APRN @ [facility]: hiatal hernia, GERD, Reyes's esophagitis, neuromuscular dysfunction History of laryngectomy History of radical laryngectomy History of tarsorrhaphy PROCEDURES RT/LEFT HEART CARD CATH COMPLETE LARYNGECTOMY Esophagoplasty S/P AAA (abdominal aortic aneurysm) repair Status post cardiac catheterization Status post cataract extraction and insertion of intraocular lens of left eye (04/30/12) Status post cataract extraction and insertion of intraocular lens of right eye (07/12/18) Status post laryngectomy Social History Smoking/Tobacco Use Status: Former Tobacco Use Tobacco: How many years used: 30 Smoking risk assessment performed?: Yes Alcohol Intake: never Drug use: Never Substance use type: does not use Current gender identity: male Do you feel safe at home: Yes Do you feel safe in your relationship?: Yes Exam Const General: no acute distress Orientation: alert HENMT Head: normal to inspection Ears: external ears normal General nose exam: external nose normal Mouth: moist mucous membranes Eyes General: appearance normal, both eyes and all related structures Neck Neck: normal visual inspection Resp Effort & Inspection: audible wheezes Cardio Rate: regular rate Skin General skin exam: no rashes or lesions noted Neuro General: patient alert and patient oriented x3 Extrem General: normal to inspection Psych Mental Status: mental status grossly normal Course Vital Signs Vital signs: Vital Signs Temperature 39.1 C H 04/07/21 19:42 Pulse 99 H 04/07/21 19:42 Respiratory Rate 27 H 04/07/21 19:42 Blood Pressure 113/58 L 04/07/21 19:42 Pulse Oximetry 97 04/07/21 19:42 Temperature 39.1 C H 04/07/21 19:42 Temperature Source Rectal 04/07/21 19:42 Pulse 99 H 04/07/21 19:42 Respiratory Rate 27 H 04/07/21 19:42 Blood Pressure 113/58 L 04/07/21 19:42 Blood Pressure Position Supine 04/07/21 19:42 Pulse Oximetry 97 04/07/21 19:42 Oxygen Delivery Method Trach Collar 04/07/21 19:42 Oxygen Flow Rate 6 04/07/21 19:42 Pain Level 0 04/07/21 19:42 Lab/Test Results Lab/Test Results: 04/07/21 19:35 Blood Blood Culture - Pending 04/07/21 19:35 Blood Blood Culture - Pending
[2021-04-07 20:16] LABS: Source Nasal/Nares
[2021-04-07 20:28] LABS: Abs Immature Grans 0.07 10^3/uL (0.0-0.06); Absolute Basophil Count 0.09 10^3/uL (0.0-0.2); Absolute Monocyte Count 0.62 10^3/uL (0.1-0.8); Basophils % 0.5; Eosinophils % 0.3; HCT 45.1 % (40.0-50.0); HGB 14.5 g/dL (13.5-17.5); Immature Grans % 0.4; Lymphocytes % 3.2; MCH 30.3 pg (27.0-33.0); MCHC 32.2 % (32.0-36.0); MCV 94.4 fL (80-95); MPV 9.8 fL (8.0-11.0); Monocytes % 3.3; Neutrophils % 92.3; Nucleated RBC 0 %; Platelet Count 258 10^3/uL (130-400); RBC 4.78 10^6/uL (4.36-5.78); RDW-SD 45.4 fL; WBC 18.72 10^3/uL (4.4-10.8)
[2021-04-07 20:31] LABS: Absolute Eosinophil Count 0.06 10^3/uL (0.0-0.7); Absolute Neutrophil Count 17.28 10^3/uL (1.2-6.7)
[2021-04-07 20:46] LABS: ALT 21 U/L (16-63); AST 25 U/L (15-37); Albumin 3.5 g/dL (3.4-5.0); Alkaline Phosphatase 87 U/L (46-116); BUN 17 mg/dL (7-18); Bilirubin, Total 0.6 mg/dL (0.2-1.0); Calcium 9.1 mg/dL (8.5-10.1); Chloride 99 mmol/L (98-107); Glucose 95 mg/dL (74-106); Magnesium 1.9 mg/dL (1.8-2.4); Potassium 3.7 mmol/L (3.5-5.1); Sodium 139 mmol/L (136-145); Total Protein 7.7 g/dL (6.4-8.2); Troponin I < 0.05 ng/mL (<0.06)
[2021-04-07] MEDS: Normal Saline 1,000 ML 1000 ML IV (20:46)
[2021-04-07 20:53] LABS: Bilirubin Negative (Negative); Blood Trace-intact (Negative); Clarity Clear (Clear); Glucose Negative (Negative); Ketones Negative (Negative); Leukocyte Esterase Moderate (Negative); Nitrite Negative (Negative); pH 8.5 (5-8)
[2021-04-07 21:00] LABS: Bacteria Rare HPF (Negative); C & S Indicated? C&S Done As Ordered; Casts Negative LPF (Negative); Crystals Negative HPF (Negative); Epithelial Cells Rare HPF (Negative); Mucus Negative (Negative)
[2021-04-07 21:06] LABS: COVID-19 PCR Negative (Negative)
--- NOTE | 2021-04-07 21:33 | DI.VRAD_ITS ---
PROCEDURE INFORMATION: Exam: XR Chest Exam date and time: 04/07/2021 20:01 Age: 76 years old Clinical indication: Fever; Prior surgery; Surgery date: 6+ months; Surgery type: Cardiac, cath, aaa repair, laryngectomy TECHNIQUE: Imaging protocol: XR of the chest. Views: 1 view. COMPARISON: CR XR PORTABLE CHEST AP 11/24/2020 16:09 FINDINGS: Lungs: Mild generalized interstitial prominence is stable. Pleural spaces: No pleural effusion. No pneumothorax. Heart/Mediastinum: Similar mild cardiomegaly with minor vascular congestion. Bones/joints: Thoracic descending stent graft, highly tortuous thoracic aorta in stable configuration. Atherosclerosis. IMPRESSION: 1. Similar mild cardiomegaly with minor vascular congestion. 2. Mild generalized interstitial prominence is stable suggesting chronic bronchitis or other chronic interstitial process. 3. Chronic findings as described. Dictated and Authenticated by: Haven Ontiveros MD. Ordering:ROSAMARIA Biggs MD
[2021-04-07] MEDS: methylPREDNISolone SUCC 125 MG VIAL IVP (21:40)
[2021-04-07] MEDS: PIPERACILLIN/TAZO 4.5 GM in Normal Saline 100 ML IVPB (21:42)
[2021-04-07] MEDS: Albuterol/Ipratropium 3 ML UPD VIAL UPD (21:45)
--- NOTE | 2021-04-07 21:50 | HPE_ITS ---
Date of service: 04/07/21 Time of Service: 21:53 Assessment and Plan Assessment and plan (1) Shortness of breath: Status: Acute Assessment and plan: COPD with either bronchitis or pneumonia. Will contin ue steroids, updrafts and antibiotics (agree with coverage for MRSA, will attempt to obtain sputum). Per prior notes will remain Full Code. Usual meds as is otherwise. History of Present Illness History of Present Illness Chief Complaint: cough, SOB Narrative: 76 male with h/o COPD, laryngeal CA, s/p [id number]. Here with 2 days of cough and SOB. No CP. In ER findings of note for temp 39.1, diffuse wheeze and rhonchi, white count 18, interstitial prominence on CXR (to my read perhaps more discrete RLL). Due to prior MRSA in sputum (see 08/31) patient given Vanco and Zosyn, in addition to steroids and updraft. I was asked to evaluate for admission. Patient states he continues SOB. Denies CP. He is vaccinated and COVID is negative. 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 Anemia Anxiety Anxiety Aphonia post total laryngectomy [facility] 2007 Blockage of feeding tube 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/17) CAD (coronary artery disease) Complication of feeding tube Conjunctivitis, chronic COPD (chronic obstructive pulmonary disease) COPD (chronic obstructive pulmonary disease) Cortical cataract of right eye Depression Depressive disorder (11/18/12) 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 Dyspnea on exertion Feeding tube dysfunction Hematoma following procedure Herpes zoster History of alcoholism sober x 25yrs History of tobacco use Hyperlipemia Hyperlipidemia (11/18/12) Hypertension Hypertension (11/18/12) Hypothyroidism Hypothyroidism (11/18/12) Impingement syndrome, shoulder, left (10/10/16) -2016: PT [email or web address]. imaging: discuss at p Laryngeal cancer Left corneal scar with opacity MRSA pneumonia Neurotrophic cornea of left eye Nuclear sclerotic cataract of right eye PAOD (peripheral arterial occlusive disease) Peripheral neuropathy (02/21/15) Post herpetic neuralgia Posterior subcapsular age-related cataract, right eye Primary malignant neoplasm of oropharynx ; yearly fup in Feb (last ) [facility] SX: 2007 ROR: 2000 + 2007 Pulmonary nodule, right (05/30/15) on chest CT -2016: stable Restless leg syndrome (02/21/15) Sessile colonic polyp 12/22/16-SESSILE SERRATED ADENOMA Tobacco use Surgical History 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) Sin-mullins button placed by Dr Elia Mcdonald, [facility] History of esophagogastroduodenoscopy (EGD) (~08/10/19) Daron Casper APRN @ [facility]: hiatal hernia, GERD, Reyes's esophagitis, neuromuscular dysfunction History of laryngectomy History of radical laryngectomy History of tarsorrhaphy PROCEDURES RT/LEFT HEART CARD CATH COMPLETE LARYNGECTOMY Esophagoplasty S/P AAA (abdominal aortic aneurysm) repair Status post cardiac catheterization Status post cataract extraction and insertion of intraocular lens of left eye (04/30/12) Status post cataract extraction and insertion of intraocular lens of right eye (07/12/18) Status post laryngectomy Social History Smoking/Tobacco Use Status: Former Tobacco Use Tobacco: How many years used: 30 Smoking risk assessment performed?: Yes Alcohol Intake: never Drug use: Never Substance use type: does not use Current gender identity: male Do you feel safe at home: Yes Do you feel safe in your relationship?: Yes Meds Allergies and Home Medications Allergies Allergy/AdvReac Type Severity Reaction Status Date / Time pollen extracts Allergy Mild Verified 04/07/21 21:50 Tetracyclines Allergy Unknown SKIN RASH Verified 04/07/21 21:50 Home Medications Medication Instructions Recorded Confirmed Type omeprazole 20 mg capsule,delayed 20 mg FEEDING TUBE BID #90 cap 10/05/19 01/04/21 Rx release aspirin 81 mg FEEDING TUBE DAILY 10/29/19 01/04/21 History melatonin 6 mg PO HS 10/29/19 01/04/21 History rosuvastatin 40 mg tablet 40 mg FEEDING TUBE HS #90 tab 12/14/19 01/04/21 Rx 3 mLs Saline Vials 1 vial INHALATION .5 times a day 01/02/20 01/04/21 Rx #150 vial alfuzosin 10 mg tablet,extended 10 mg PO DAILY #90 tab-cap 04/18/20 01/04/21 Rx release 24 hr citalopram 20 mg tablet 20 mg PO DAILY #90 tab 05/18/20 01/04/21 Rx acetylcysteine 100 mg/mL (10 %) 4 ml INHALATION Q4H ml 07/05/20 01/04/21 History solution finasteride 5 mg tablet 5 mg PO DAILY #90 tab 07/11/20 01/04/21 Rx ipratropium 0.5 mg-albuterol 3 mg 3 ml IN QID PRN #90 ml 07/30/20 01/04/21 Rx (2.5 mg base)/3 mL nebulization soln amlodipine 5 mg tablet 5 mg PO DAILY 10/04/20 01/04/21 History ferrous sulfate 300 mg (60 mg 300 mg PO DAILY 10/04/20 01/04/21 History iron)/5 mL oral liquid gabapentin 100 mg capsule 200 mg PO BID cap 10/04/20 01/04/21 History lactobacillus combination no.8 3 3,000 mmu cells PO BID cap 10/04/20 01/04/21 History billion cell capsule levothyroxine 112 mcg/mL oral 112 mcg PO DAILY 10/04/20 01/04/21 History solution polyethylene glycol 3350 17 17 g PO PRN g 10/04/20 01/04/21 History gram/dose oral powder ropinirole 1 mg tablet 1 mg PO BID 10/04/20 01/04/21 History nystatin 100,000 unit/gram topical 1 applic TOPICAL BID PRN #60 g 02/06/21 Rx powder Exam Narrative Exam Narrative: 113/58, 100, 39.1, 14, 95% (trach collar, 6L). HEENT atraumatic; neck supple, trach patent; lungs diffuse wheeze/rhonchi; heart distant/RRR; abdomen soft and NT; extremities w/o edema; neuro Ox3., moves all 4s Results Labs Result diagrams: 04/07/21 20:20 04/07/21 20:20 Labs: Laboratory Results - last 24 hr 04/07/21 04/07/21 04/07/21 19:40 20:10 20:20 WBC RBC Hgb Hct MCV MCH MCHC RDW Plt Count MPV Immature Gran % Neutrophils % Lymphocytes % Monocytes % Eosinophils % Basophils % Nucleated RBC % Absolute Neutrophils Absolute Lymphocytes Absolute Monocytes Absolute Eosinophils Absolute Basophils VBG Lactate Sodium 139 Potassium 3.7 Chloride 99 Carbon Dioxide 33.0 H Anion Gap 7.0 BUN 17 Creatinine 1.0 Estimated GFR/1.73 m2 >= 60.00 Glucose 95 Calcium 9.1 Magnesium 1.9 Total Bilirubin 0.6 AST 25 ALT 21 Alkaline Phosphatase 87 Troponin I < 0.05 Total Protein 7.7 Albumin 3.5 Urine Color Yellow Urine Clarity Clear Urine pH 8.5 H Ur Specific [place] 1.020 Urine Protein 30 H Urine Ketones Negative Urine Blood Trace-intact H Urine Nitrite Negative Urine Bilirubin Negative Urine Urobilinogen 1.0 H Ur Leukocyte Esterase Moderate H Urine RBC 3-5 H Urine WBC 5-10 Ur Epithelial Cells Rare Urine Crystals Negative Urine Bacteria Rare Urine Casts Negative Urine Mucus Negative Ur Culture Indicated? C&S Done As Ordered Urine Glucose Negative COVID-19 Source Nasal/Nares SARS-CoV-2 (PCR) Negative 04/07/21 04/07/21 20:20 20:20 WBC 18.72 H RBC 4.78 Hgb 14.5 Hct 45.1 MCV 94.4 MCH 30.3 MCHC 32.2 RDW 13.0 Plt Count 258 MPV 9.8 Immature Gran % 0.4 Neutrophils % 92.3 Lymphocytes % 3.2 Monocytes % 3.3 Eosinophils % 0.3 Basophils % 0.5 Nucleated RBC % 0 Absolute Neutrophils 17.28 H Absolute Lymphocytes 0.60 L Absolute Monocytes 0.62 Absolute Eosinophils 0.06 Absolute Basophils 0.09 VBG Lactate 1.0 Sodium Potassium Chloride Carbon Dioxide Anion Gap BUN Creatinine Estimated GFR/1.73 m2 Glucose Calcium Magnesium Total Bilirubin AST ALT Alkaline Phosphatase Troponin I Total Protein Albumin Urine Color Urine Clarity Urine pH Ur Specific [place] Urine Protein Urine Ketones Urine Blood Urine Nitrite Urine Bilirubin Urine Urobilinogen Ur Leukocyte Esterase Urine RBC Urine WBC Ur Epithelial Cells Urine Crystals Urine Bacteria Urine Casts Urine Mucus Ur Culture Indicated? Urine Glucose COVID-19 Source SARS-CoV-2 (PCR) Last Vital Signs Temp 39.1 C H 04/07/21 19:42 Pulse 100 H 04/07/21 21:45 Resp 14 04/07/21 21:45 BP 113/58 L 04/07/21 19:42 Pulse Ox 95 04/07/21 21:45
[2021-04-07] MEDS: ACETAMINOPHEN 1,000 MG/100 ML BTL 400 MG IVPB (22:13)
[2021-04-07] MEDS: VANCOMYCIN 1,000 MG in Normal Saline 250 ML 166.6666 MG IVPB (22:18)
[2021-04-08 00:15] VITALS: BP 104/66; PULSE 98; RESP 22; TEMP 36.4; O2SAT 95
[2021-04-08] MEDS: MORPHine 2 MG/ML SYR ×2 (01:40→04:54)
[2021-04-08] MEDS: methylPREDNISolone SUCC 40 MG VIAL IVP ×3 (04:53→22:05)
[2021-04-08] MEDS: PIPERACILLIN/TAZO 3.375 GM in Normal Saline 50 ML IVPB (04:54)
[2021-04-08 05:10] VITALS: RESP 4; RESP 5
[2021-04-08] MEDS: Sodium Chloride 0.9% for Inhalation 3 ML VIAL IH (05:10)
[2021-04-08] MEDS: Albuterol/Ipratropium 3 ML UPD VIAL UPD ×3 (05:10→22:05)
[2021-04-08 08:04] VITALS: BP 172/70; PULSE 99; RESP 20; TEMP 36.5; O2SAT 96
[2021-04-08] MEDS: VANCOMYCIN/WATER (PEG) 1 GM/200 ML BAG IV ×2 (10:12→22:06)
[2021-04-08] MEDS: rOPINIRole 0.5 MG TAB 1 MG PO (10:57)
[2021-04-08] MEDS: Aspirin 81 MG CHEW NG (10:57)
[2021-04-08] MEDS: Omeprazole 20 MG CAPCR PO (10:57)
[2021-04-08] MEDS: Citalopram 20 MG TAB PO (10:57)
[2021-04-08] MEDS: amLODIPine 5 MG TAB PO (10:57)
[2021-04-08] MEDS: Finasteride 5 MG TAB PO (10:57)
[2021-04-08] MEDS: Gabapentin 100 MG CAP 200 MG PO (10:57)
[2021-04-08] MEDS: Ferrous Sulfate 44 MG/ML Liquid 308 MG PO (10:58)
--- NOTE | 2021-04-08 12:30 | W.PM.PROGNOT ---
Date of Service Date of service: 04/08/21 Time of Service: 12:30 Assessment and Plan Assessment and plan (1) Pneumonia: Status: Acute Assessment and plan: right lower lobe: with history of MRSA pneumonia culture pending continue vanco/zosyn day 2. to use percussion vest bid with updrafts prior to treatment. (2) COPD (chronic obstructive pulmonary disease): Status: Acute Assessment and plan: continue steroids and current antibiotics. updrafts scheduled (3) Laryngeal cancer: Status: None Assessment and plan: s/p laryngectomy. on tube feedings. home oxygen at baseline. wean as able. (4) G tube feedings: Status: Acute Assessment and plan: resume home tube feedings. 750 ml of his Nutren 2.0 2 kcal/ml 3-250 ml for a total 750 ml daily, gravity fed discussed with DR George Subjective Subjective Patient reports: voiding w/o difficulty and afebrile; denies feels better Exam Const General: cooperative, comfortable, no acute distress, frail appearing and ill appearing chronically Nutritional Appearance: average body habitus Orientation: alert, awake and oriented x3 HENMT Head: normal to inspection, normocephalic and atraumatic Neck Neck: tracheostomy present Chest Chest: normal inspection of the chest Resp Effort & Inspection: normal respiratory effort Auscultation: rhonchi right lower and no wheezes GI Inspection: normal to inspection Palpation: soft Auscultation: normal bowel sounds Skin Rashes: no rashes Extrem General: normal to inspection, full ROM and no pedal edema Objective Last Vital Signs Temp 36.5 C 04/08/21 08:04 Pulse 99 H 04/08/21 08:04 Resp 20 04/08/21 08:04 BP 172/70 H 04/08/21 08:04 Pulse Ox 96 04/08/21 08:04 Laboratory Results - last 24 hr 04/07/21 04/07/21 04/07/21 19:40 20:10 20:20 WBC RBC Hgb Hct MCV MCH MCHC RDW Plt Count MPV Immature Gran % Neutrophils % Lymphocytes % Monocytes % Eosinophils % Basophils % Nucleated RBC % Absolute Neutrophils Absolute Lymphocytes Absolute Monocytes Absolute Eosinophils Absolute Basophils VBG Lactate Sodium 139 Potassium 3.7 Chloride 99 Carbon Dioxide 33.0 H Anion Gap 7.0 BUN 17 Creatinine 1.0 Estimated GFR/1.73 m2 >= 60.00 Glucose 95 Calcium 9.1 Magnesium 1.9 Total Bilirubin 0.6 AST 25 ALT 21 Alkaline Phosphatase 87 Troponin I < 0.05 Total Protein 7.7 Albumin 3.5 Urine Color Yellow Urine Clarity Clear Urine pH 8.5 H Ur Specific [place] 1.020 Urine Protein 30 H Urine Ketones Negative Urine Blood Trace-intact H Urine Nitrite Negative Urine Bilirubin Negative Urine Urobilinogen 1.0 H Ur Leukocyte Esterase Moderate H Urine RBC 3-5 H Urine WBC 5-10 Ur Epithelial Cells Rare Urine Crystals Negative Urine Bacteria Rare Urine Casts Negative Urine Mucus Negative Ur Culture Indicated? C&S Done As Ordered Urine Glucose Negative COVID-19 Source Nasal/Nares SARS-CoV-2 (PCR) Negative 04/07/21 04/07/21 20:20 20:20 WBC 18.72 H RBC 4.78 Hgb 14.5 Hct 45.1 MCV 94.4 MCH 30.3 MCHC 32.2 RDW 13.0 Plt Count 258 MPV 9.8 Immature Gran % 0.4 Neutrophils % 92.3 Lymphocytes % 3.2 Monocytes % 3.3 Eosinophils % 0.3 Basophils % 0.5 Nucleated RBC % 0 Absolute Neutrophils 17.28 H Absolute Lymphocytes 0.60 L Absolute Monocytes 0.62 Absolute Eosinophils 0.06 Absolute Basophils 0.09 VBG Lactate 1.0 Sodium Potassium Chloride Carbon Dioxide Anion Gap BUN Creatinine Estimated GFR/1.73 m2 Glucose Calcium Magnesium Total Bilirubin AST ALT Alkaline Phosphatase Troponin I Total Protein Albumin Urine Color Urine Clarity Urine pH Ur Specific [place] Urine Protein Urine Ketones Urine Blood Urine Nitrite Urine Bilirubin Urine Urobilinogen Ur Leukocyte Esterase Urine RBC Urine WBC Ur Epithelial Cells Urine Crystals Urine Bacteria Urine Casts Urine Mucus Ur Culture Indicated? Urine Glucose COVID-19 Source SARS-CoV-2 (PCR)
[2021-04-08] MEDS: Acetylcysteine 20% *ORAL/INHALED* 6000 MG/30 ML VIAL 400 MG IH ×2 (13:23→22:05)
--- NOTE | 2021-04-08 15:11 | W.NUTCONSULT ---
Date of service: 04/08/21 Time of Service: 15:11 Nutritional Consult ASSESSMENT: Spoke with pt.'s so. He gets 3 boxes of Nutren 2.0 every 24 hours. He also takes in small amounts of food. This feeding provides 1440 kcals/day, 115 g protein/day, and 527 ml of free water. His estimated energy needs are 1800 kcal/day (REE x 1.2) Estimated protein needs are 91 g/day (1.2g/kg/day) Estimated fluid needs are 1800 ml/day (1 ml/kcal provided/day) His BMI is 25.5 kg/m2 which is WNL. Of note, his weight has been entirely stable for 2 years looking at his weight history and is up significantly from 3 years ago. So between his tube feeding and PO, he is meeting his nutritional needs. NUTRITIONAL DIAGNOSIS: Inability to take adequate PO. INTERVENTION: Continue with tube feeding regimen as noted above as pt. does at home. His SO stated that she can supply the Nutren 2.0. MONITORING AND EVALUATION: 1. Will continue to monitor weight, PO, tube feeding tolerance. 2. Will evaluate nutrition care plan ongoing and adjust as needed. Time Spent in Nutritional Counseling and Treatment: 15 minutes
[2021-04-08 15:53] VITALS: BP 100/62; PULSE 98; RESP 18; TEMP 36.5; O2SAT 90
--- NOTE | 2021-04-08 16:33 | INITIAL_ITS ---
- If Service Date Differs Date of service: 04/08/21 Time of Service: 16:33 Care Management Initial Assess REASON FOR HOSPITALIZATION:: COPD, pneumonia PAST MEDICAL HISTORY/PAST SURGICAL HISTORY:: Medical History. 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 Anemia. Anxiety. Anxiety. Aphonia. post total laryngectomy [facility] 2007. Blockage of feeding tube. 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/17). CAD (coronary artery disease). Complication of feeding tube. Conjunctivitis, chronic. COPD (chronic obstructive pulmonary disease). COPD (chronic obstructive pulmonary disease). Cortical cataract of right eye. Depression. Depressive disorder (11/18/12). 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. Dyspnea on exertion. Feeding tube dysfunction. Hematoma following procedure. Herpes zoster. History of alcoholism. sober x 25yrs. History of tobacco use. Hyperlipemia. Hyperlipidemia (11/18/12). Hypertension. Hypertension (11/18/12). Hypothyroidism. Hypothyroidism (11/18/12). Impingement syndrome, shoulder, left (10/10/16). : PT yomaira. imaging: discuss at fup. Laryngeal cancer. Left corneal scar with opacity. MRSA pneumonia. Neurotrophic cornea of left eye. Nuclear sclerotic cataract of right eye. PAOD (peripheral arterial occlusive disease). Peripheral neuropathy (02/21/15). Post herpetic neuralgia. Posterior subcapsular age-related cataract, right eye. Primary malignant neoplasm of oropharynx. ; y early fup in Feb (last ). [facility] SX: 2007. ROR: 1999 + 2007. Pulmonary nodule, right (05/30/15). on chest CT : stable. Restless leg syndrome (02/21/15). Sessile colonic polyp. 12/22/16-SESSILE SERRATED ADENOMA. Tobacco use. Surgical History. Colonoscopy - MAC (12/22/16). EGD - MAC (07/06/17). 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 Sin-mullins button placed by Dr Elia Mcdonald [facility]. History of esophagogastroduodenoscopy (EGD) (~08/10/19). Daron Casper APRN @ [facility]: hiatal hernia, GERD, Reyes's esophagitis, neuromuscular dysfunction. History of laryngectomy. History of radical laryngectomy. History of tarsorrhaphy. PROCEDURES. RT/LEFT HEART CARD CATH. COMPLETE LARYNGECTOMY. Esophagoplasty. S/P AAA (abdominal aortic aneurysm) repair. Status post cardiac catheterization. Status post cataract extraction and insertion of intraocular lens of left eye (04/30/12). Status post cataract extraction and insertion of intraocular lens of right eye (07/12/18). Status post laryngectomy PREVIOUS FUNCTIONAL STATUS/SOCIAL/FAMILY SUPPORTS:: Pineda lives in [place] with Kiara, his information resources manager and caregiver. 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 Pineda states he is independent with bathing and dressing himself and has the support of Kiara when needed. His nephew, Harsha, is also a source of support for him. CURRENT FUNCTIONAL STATUS:: Pineda was sitting up in bed when CM met with him. He reported that he was doing well, although he would really like a large black coffee. CM verified that his diet order was being changed to clear liquids, and brought him a coffee. He had just met with the provider, who stated that he will likely be changed to oral abx tomorrow and discharged home, as long as he continues to improve. His caregiver, Kiara, was in the room, and reported that she will transport him home, and that she would like to be present for the discharge instructions. They both agreed that he will not require any additional services upon discharge. CM will continue to follow. ADVANCE DIRECTIVES:: On file; nephew Harsha Nevarez is listed as Health Care Agent. Has patient been provided with info about the portal/API?: Yes Did the patient sign up for the portal?: Yes (active) CODE STATUS:: Full Code INSURANCE COVERAGE / FINANCIAL ISSUES:: [facility]/ [facility] CURRENT HOME/COMMUNITY SERVICES/EQUIPMENT:: Pineda's live-in information resources manager, Kiara, is his caregiver. He owns a FWW and a cane, has a tracheostomy and uses an augmentative speech device to communicate. Pineda is also on 6L of O2 at home. [employer] supplies his oxygen. PRIMARY CARE PHYSICIAN:: Jackie Prasad POTENTIAL DISCHARGE NEEDS:: Follow up appointments. PATIENT/FAMILY EDUCATION NEEDS:: Discharge instructions, limitations, follow up plan of care including Ask Me Three and self management. ANTICIPATED BARRIERS TO DISCHARGE:: No anticipated barriers at this time. TRANSPORTATION:: Via private vehicle by Kiara. PLAN:: Anticipate Pineda will return home when medically cleared. His caregiver, Kiara, will drive him home via private vehicle when ready. He will follow up with his PCP and discharge plan of care. CM will continue to follow.
[2021-04-08] MEDS: Normal Saline Flush 10 ML SYR (16:35)
[2021-04-08] MEDS: Normal Saline Flush 10 ML SYR IVP (19:03)
[2021-04-08] MEDS: Omeprazole 20 MG CAPCR NG (22:19)
[2021-04-09] VITALS (8 sets, daily range): BP systolic 107–149; BP diastolic 71–80; PULSE 91–110; RESP 5–20; TEMP 36.2–36.9; O2SAT 93–96
--- NOTE | 2021-04-09 | DI.RAD_ITS ---
Exam(s) XR CHEST 2V PA LATERAL EXAM: XR CHEST 2V PA LATERAL CLINICAL HISTORY: pneumonia, elevating wbc TECHNIQUE: 2D digital imaging was performed. COMPARISON: CT CT THORACIC LUMBAR SPINE WO from 07/21/[address] THORACIC LUMBAR SPINE WO from 07/21/2020 CR,XR XR PORTABLE CHEST AP from 11/24/2020 CR,XR XR PORTABLE CHEST AP from 11/24/2020 CR,XR XR PORTABLE CHEST AP from 04/07/2021 FINDINGS: Stent in the descending thoracic aorta. Aorta markedly tortuous. No focal infiltrate. No evidence of effusion. Severe lower thoracic compression fractures and moderate midthoracic compression fractu re, stable since July CT.. IMPRESSION: No acute abnormality. DATA REPOSITORY: RADIATION DOSE DELIVERED:
--- NOTE | 2021-04-09 02:03 | NUR.NOTE ---
Nursing Note: Pt has a leg cramps medicine tablet in his room, verbalized taking it for years. RN educated patient about pharmacy reviewing all of the medications and that it needs to be reviewed by the pharmacy and needs to be taken out of the room. Patient still refused to give the medication to this RN. Charge nurse notified
[2021-04-09] MEDS: MORPHine 4 MG/ML SYR IVP (02:55)
[2021-04-09] MEDS: Normal Saline Flush 10 ML SYR IVP ×6 (02:56→21:43)
[2021-04-09] MEDS: methylPREDNISolone SUCC 40 MG VIAL IVP ×3 (05:08→20:39)
[2021-04-09] MEDS: Levothyroxine 112 MCG TAB NG (05:20)
[2021-04-09 07:43] LABS: Abs Immature Grans 0.09 10^3/uL (0.0-0.06); Absolute Basophil Count 0.02 10^3/uL (0.0-0.2); Absolute Lymphocyte Count 0.66 10^3/uL (1.2-3.4); Absolute Neutrophil Count 18.07 10^3/uL (1.2-6.7); Basophils % 0.1; HCT 44.4 % (40.0-50.0); HGB 14.2 g/dL (13.5-17.5); Immature Grans % 0.5; Lymphocytes % 3.4; MCH 30.8 pg (27.0-33.0); MCV 96.3 fL (80-95); Monocytes % 2.3; Neutrophils % 93.7; Nucleated RBC 0 %; Platelet Count 293 10^3/uL (130-400); RBC 4.61 10^6/uL (4.36-5.78); RDW 13.2 % (11.8-14.1); RDW-SD 47.3 fL; WBC 19.29 10^3/uL (4.4-10.8)
[2021-04-09 07:53] LABS: Absolute Monocyte Count 0.44 10^3/uL (0.1-0.8)
[2021-04-09 07:54] LABS: Anion Gap 10.4 mmol/L (3-11); BUN 24 mg/dL (7-18); CO2 30.6 mmol/L (21.0-32.0); Calcium 8.9 mg/dL (8.5-10.1); Chloride 99 mmol/L (98-107); Glucose 131 mg/dL (74-106); Magnesium 2.3 mg/dL (1.8-2.4); Potassium 3.4 mmol/L (3.5-5.1); Sodium 140 mmol/L (136-145)
[2021-04-09] MEDS: Citalopram 20 MG TAB NG (09:28)
[2021-04-09] MEDS: Aspirin 81 MG CHEW NG (09:28)
[2021-04-09] MEDS: amLODIPine 5 MG TAB NG (09:29)
[2021-04-09] MEDS: Omeprazole 20 MG CAPCR NG (09:29)
[2021-04-09] MEDS: Finasteride 5 MG TAB NG (09:29)
[2021-04-09] MEDS: rOPINIRole 0.5 MG TAB 1 MG NG (09:30)
[2021-04-09] MEDS: Gabapentin 100 MG CAP 200 MG NG (09:31)
[2021-04-09] MEDS: Ferrous Sulfate 44 MG/ML Liquid 308 MG NG (09:32)
[2021-04-09] MEDS: Albuterol/Ipratropium 3 ML UPD VIAL UPD ×2 (10:04→20:48)
[2021-04-09 10:06] LABS: Vancomycin, Trough 15.9 ug/mL (10.0-20.0)
[2021-04-09] MEDS: Acetylcysteine 20% *ORAL/INHALED* 6000 MG/30 ML VIAL 400 MG IH ×2 (10:07→21:00)
[2021-04-09] MEDS: POTASSIUM CHLORIDE 10 MEQ/100 ML BAG 100 MEQ IVPB ×2 (10:14→14:09)
[2021-04-09] MEDS: VANCOMYCIN/WATER (PEG) 1 GM/200 ML BAG IV ×2 (11:41→21:43)
--- NOTE | 2021-04-09 11:56 | W.PM.PROGNOT ---
Date of Service Date of service: 04/09/21 Time of Service: 11:56 Assessment and Plan Assessment and plan (1) Pneumonia: Status: Acute Assessment and plan: right lower lobe: with history of MRSA pneumonia culture blood negative to date. sputum culture with no bacteria seen. repeat cxr today continue vanco/zosyn day 3. to use percussion vest bid with updrafts prior to treatment. (2) COPD (chronic obstructive pulmonary disease): Status: Acute Assessment and plan: continue steroids and current antibiotics. updrafts scheduled (3) Laryngeal cancer: Status: None Assessment and plan: s/p laryngectomy. on tube feedings. home oxygen at baseline. (4) G tube feedings: Status: Acute Assessment and plan: resume home tube feedings. 750 ml of his Nutren 2.0 2 kcal/ml 3-250 ml for a total 750 ml daily, gravity fed tube has not been able to be plugged since last night, will not flush. consult placed with Dr Riley. discussed with DR George Subjective Subjective Patient reports: shortness of breath and afebrile Interval history since last seen: gtube not functioning Exam Const General: cooperative, comfortable, no acute distress, frail appearing and ill appearing chronically Nutritional Appearance: average body habitus Orientation: alert, awake and oriented x3 HENMT Head: normal to inspection, normocephalic and atraumatic Neck Neck: tracheostomy present Chest Chest: normal inspection of the chest Resp Effort & Inspection: normal respiratory effort Auscultation: rhonchi right lower and no wheezes GI Inspection: normal to inspection Palpation: soft Auscultation: normal bowel sounds Skin Rashes: no rashes Extrem General: normal to inspection, full ROM and no pedal edema Objective Last Vital Signs Temp 36.9 C 04/09/21 07:34 Pulse 110 H 04/09/21 10:34 Resp 16 04/09/21 10:34 BP 122/71 04/09/21 07:34 Pulse Ox 95 04/09/21 10:34 Laboratory Results - last 24 hr 04/09/21 04/09/21 04/09/21 06:40 06:40 09:15 WBC 19.29 H RBC 4.61 Hgb 14.2 Hct 44.4 MCV 96.3 H MCH 30.8 MCHC 32.0 RDW 13.2 Plt Count 293 MPV 10.0 Immature Gran % 0.5 Neutrophils % 93.7 Lymphocytes % 3.4 Monocytes % 2.3 Eosinophils % 0.0 Basophils % 0.1 Nucleated RBC % 0 Absolute Neutrophils 18.07 H Absolute Lymphocytes 0.66 L Absolute Monocytes 0.44 Absolute Eosinophils 0.00 Absolute Basophils 0.02 Sodium 140 Potassium 3.4 L Chloride 99 Carbon Dioxide 30.6 Anion Gap 10.4 BUN 24 H Creatinine 1.0 Estimated GFR/1.73 m2 >= 60.00 Glucose 131 H Calcium 8.9 Magnesium 2.3 Vancomycin Trough 15.9
--- NOTE | 2021-04-09 12:54 | NUR.NOTE ---
Nursing Note: Patient has been noted to contradict himself, first he absolutely refused to allow use of the G- tube for medications and feeding. Short time later he said there was nothing wrong with the tube, and it could be used. Then stated It was leaking and he wanted to go to the surgeon across the street, because it was leaking. A surgical consult was offered, but he refused to see a [facility] surgeon, It had to be the surgeon across the street. He had great difficulty of was unable to grasp that the surgeon was affiliated with the hospital. He did give his consent to flush the G-tube. Attempt to flush determined that it could be plugged as all the fluid pushed back around the incision opening. He did not want to allow the medication he kept at beside, which was determined to be OTC for restless leg syndrome, to be removed from the room. Pamela Cindy recorded the information at the bedside to forward to pharmacy. He refused the clear liquid tray offered both morning and lunch. During the morning , he stated he ate a regular diet at home. At lunch, it was offered twice, he refused both times, I don't want it. After it was determined patient's G-tube was not usable. Grecia Guillen was made aware of this for possible surgical intervention He did state he could swallow pills. They were given one at a time with water, he was able to manage them well. Patient was unfamiliar with what he took at home, as nursing endeavored to review his medications with him. He saidsomeone else took care of them at home. Patient was repetitive about who his nurse was, (I had identified myself as his primary nurse 3 times that morning). He was very focused in knowing who his provider was, and when they would be in to see him as he was promised yesterday that they would discharge him home. Nursing was not sure at that time who was seeing him that day, but he would be seen, and it would be after morning meeting. He continued to perservate on this subject. Reassurance was given that he would be seen at some point during the day, time that he would be seen was not guaranteed. Patient had IV antibiotics and IV KCL ordered for a K of 3.4. Patient could not understand why he needed all these medications if he was going to discharge home. Patient wanted to kn ow who had ordered trhe medications. Nursing went through the orders , told patient who had ordered them and rationales were again explained for the necessity of all IV medications that were to be administered. He gives consent for administrations, Emmanuelle Phillip LPN is the second verifying nurse for the [facility]. Dayanna Valente from the [facility] , who was present , told nursing she appreciated their professionalism in getting and giving information to the patient
--- NOTE | 2021-04-09 15:41 | SCONE_ITS ---
Date of service: 04/09/21 Time of Service: 15:41 Assessment and Plan Assessment and plan (1) Complication of feeding tube: Status: Acute Assessment and plan: The old tube was removed and disposed of. A 3 cm 20 [place] feeding tube was placed. it flushed easily, with return of gas contents. the balloon was filled. I did discuss with nursing and pharmacy that they need to convert as many medications over to elixirs. small pills he can take, but they should not be crushing tubes and putting this down the tube feeding because this will cause it clogged. He can continue tube feedings today. 1 hour was spent in consultation today History of Present Illness Narrative: Patient is well-known to me.. He had his has a history of head neck cancer and has a little profile style 20 [place] 3 cm feeding tube that we change approximately every 4 months. He is currently in the hospital and the tube is not working and he requires a change. Nursing has been crushing and putting his pills down the tube. He still has some minor excoriations from yeast around the tube site. 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 Anemia Anxiety Anxiety Aphonia post total laryngectomy [facility] 2007 Blockage of feeding tube 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/17) CAD (coronary artery disease) Complication of feeding tube Conjunctivitis, chronic COPD (chronic obstructive pulmonary disease) COPD (chronic obstructive pulmonary disease) Cortical cataract of right eye Depression Depressive disorder (11/18/12) 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 Dyspnea on exertion Feeding tube dysfunction Hematoma following procedure Herpes zoster History of alcoholism sober x 25yrs History of tobacco use Hyperlipemia Hyperlipidemia (11/18/12) Hypertension Hypertension (11/18/12) Hypothyroidism Hypothyroidism (11/18/12) Impingement syndrome, shoulder, left (10/10/16) -2016: PT yomaira. 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 MRSA pneumonia Neurotrophic cornea of left eye Nuclear sclerotic cataract of right eye PAOD (peripheral arterial occlusive disease) Peripheral neuropathy (02/21/15) Post herpetic neuralgia Posterior subcapsular age-related cataract, right eye Primary malignant neoplasm of oropharynx Dr.Paydafar; yearly fup in Feb (last ) [facility] SX: 2007 ROR: 2000 + 2007 Pulmonary nodule, right (05/30/15) on chest CT -2016: stable Restless leg syndrome (02/21/15) Sessile colonic polyp 12/22/16-SESSILE SERRATED ADENOMA Tobacco use Surgical History 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) Sin-mullins button placed by Dr Elia Mcdonald [facility] History of esophagogastroduodenoscopy (EGD) (~08/10/19) Daron Casper APRN @ [facility]: hiatal hernia, GERD, Reyes's esophagitis, neuromuscular dysfunction History of laryngectomy History of radical laryngectomy History of tarsorrhaphy PROCEDURES RT/LEFT HEART CARD CATH COMPLETE LARYNGECTOMY Esophagoplasty S/P AAA (abdominal aortic aneurysm) repair Status post cardiac catheterization Status post cataract extraction and insertion of intraocular lens of left eye (04/30/12) Status post cataract extraction and insertion of intraocular lens of right eye (07/12/18) Status post laryngectomy Social History Smoking/Tobacco Use Status: Former Tobacco Use Tobacco: How many years used: 30 Smoking risk assessment performed?: Yes Alcohol Intake: never Drug use: Never Substance use type: does not use Current gender identity: male Do you feel safe at home: Yes Do you feel safe in your relationship?: Yes Exam GI Other: The sites show some mild excoriation from yeast. Otherwise the stoma otherwise the ostomy site is pink and healthy Results Last Vital Signs Temp 36.9 C 04/09/21 07:34 Pulse 110 H 04/09/21 10:34 Resp 16 04/09/21 10:34 BP 122/71 04/09/21 07:34 Pulse Ox 95 04/09/21 10:34 Labs Result diagrams: 04/09/21 06:40 04/09/21 06:40 Labs: Laboratory Results - last 24 hr 04/09/21 04/09/21 04/09/21 06:40 06:40 09:15 WBC 19.29 H RBC 4.61 Hgb 14.2 Hct 44.4 MCV 96.3 H MCH 30.8 MCHC 32.0 RDW 13.2 Plt Count 293 MPV 10.0 Immature Gran % 0.5 Neutrophils % 93.7 Lymphocytes % 3.4 Monocytes % 2.3 Eosinophils % 0.0 Basophils % 0.1 Nucleated RBC % 0 Absolute Neutrophils 18.07 H Absolute Lymphocytes 0.66 L Absolute Monocytes 0.44 Absolute Eosinophils 0.00 Absolute Basophils 0.02 Sodium 140 Potassium 3.4 L Chloride 99 Carbon Dioxide 30.6 Anion Gap 10.4 BUN 24 H Creatinine 1.0 Estimated GFR/1.73 m2 >= 60.00 Glucose 131 H Calcium 8.9 Magnesium 2.3 Vancomycin Trough 15.9
--- NOTE | 2021-04-09 18:52 | PDOC.CMPRO ---
- If Service Date Differs Date of service: 04/09/21 Time of Service: 18:52 Care Management Progress Note S/O: Pineda was meeting with the surgeon when CM attempted to visit with him today. Per report, his gravity fed tube has not been able to be plugged since last night, which is the purpose of the surgical consult. His caregiver brought in his percussion vest, which he uses with updrafts. He will have a repeat chest xray today. CM will continue to follow. A: Chan is a 76 year old male admitted to [facility] on 04/07/21 with COPD, Pneumonia. P: Anticipate Pineda will return home when medically cleared. His caregiver, Kiara, will drive him home via private vehicle when ready. He will follow up with his PCP and discharge plan of care. CM will continue to follow.
--- NOTE | 2021-04-09 19:23 | RESPIRATORY ---
Pt was set up in room with emergency trach box, ambu-bag with pedi mask, suction, airway alert sign at head of bed, and cleaning supplies. Pt is fairly independent with care of his stoma. RT set up pt's [place] vest next to the chair in his room. Per current home regimen, pt is to use the vest during his nebulized treatments BID. Pt's current home regimen is: 6L O2 via trach collar, 24/ DuoNeb BID Acetylcysteine (Mucomyst) 100mg/mL ( 10%) BID Sodium Chloride 3% solution for nebulization BID
[2021-04-09] MEDS: ROSUVASTATIN 20 MG TAB 40 MG PO (20:42)
[2021-04-09] MEDS: rOPINIRole 0.5 MG TAB 1 MG PO (20:42)
[2021-04-09] MEDS: Melatonin 3 MG TAB 6 MG PO (21:42)
[2021-04-10] MEDS: Normal Saline Flush 10 ML SYR IVP ×3 (01:52→10:54)
[2021-04-10] MEDS: methylPREDNISolone SUCC 40 MG VIAL IVP (03:45)
[2021-04-10] MEDS: Levothyroxine 112 MCG TAB PO (05:33)
[2021-04-10 07:34] LABS: Abs Immature Grans 0.06 10^3/uL (0.0-0.06); Absolute Basophil Count 0.01 10^3/uL (0.0-0.2); Absolute Lymphocyte Count 0.53 10^3/uL (1.2-3.4); Absolute Monocyte Count 0.31 10^3/uL (0.1-0.8); Absolute Neutrophil Count 13.02 10^3/uL (1.2-6.7); Basophils % 0.1; HGB 14.1 g/dL (13.5-17.5); Immature Grans % 0.4; Lymphocytes % 3.8; MCH 30.5 pg (27.0-33.0); MCHC 32.8 % (32.0-36.0); MCV 93.1 fL (80-95); MPV 9.8 fL (8.0-11.0); Monocytes % 2.2; Neutrophils % 93.5; Nucleated RBC 0 %; Platelet Count 273 10^3/uL (130-400); RBC 4.62 10^6/uL (4.36-5.78); RDW 13.2 % (11.8-14.1); RDW-SD 44.8 fL; WBC 13.93 10^3/uL (4.4-10.8)
[2021-04-10 07:41] LABS: Anion Gap 6.3 mmol/L (3-11); BUN 24 mg/dL (7-18); CO2 31.7 mmol/L (21.0-32.0); CREATININE 0.8 mg/dL (0.70-1.30); Calcium 8.6 mg/dL (8.5-10.1); Chloride 102 mmol/L (98-107); Glucose 155 mg/dL (74-106); Potassium 3.5 mmol/L (3.5-5.1); Sodium 140 mmol/L (136-145)
[2021-04-10 08:40] VITALS: BP 106/73; PULSE 84; RESP 17; TEMP 36.8; O2SAT 96
[2021-04-10] MEDS: Ferrous Sulfate 44 MG/ML Liquid 308 MG NG (08:54)
[2021-04-10] MEDS: Nystatin POWDER 15 GM JAR TP (08:55)
[2021-04-10] MEDS: Citalopram 20 MG TAB PO (08:57)
[2021-04-10] MEDS: Aspirin 81 MG CHEW PO (08:57)
[2021-04-10] MEDS: amLODIPine 5 MG TAB PO (08:57)
[2021-04-10] MEDS: Finasteride 5 MG TAB PO (08:57)
[2021-04-10] MEDS: rOPINIRole 0.5 MG TAB 1 MG PO (08:57)
[2021-04-10] MEDS: Albuterol/Ipratropium 3 ML UPD VIAL UPD (10:27)
[2021-04-10] MEDS: Acetylcysteine 20% *ORAL/INHALED* 6000 MG/30 ML VIAL 400 MG IH (10:27)
[2021-04-10] MEDS: VANCOMYCIN/WATER (PEG) 1 GM/200 ML BAG IV (10:54)
--- NOTE | 2021-04-10 11:23 | NUR.NOTE ---
Nursing Note: Patient had difficulty understanding why IVPB abx were still needed. The rationale for course of infusions were explained to the patient as well of developing a resistance to iabx if course of infusion is discontinued before the organism is destroyed. Patient stated he appreciated the explanation
--- NOTE | 2021-04-10 11:43 | W.PM.DS.N ---
Date of service: 04/10/21 Time of Service: 11:44 DS: Diagnosis Discharge Diagnosis (1) Complication of feeding tube: Status: Acute Discharge Plan Disposition Patient Disposition: HOME Condition: Stable Discharge Details Reason For Visit: COPD,Pneumonia Admit Date/Time: 04/07/21 22:07 Admit Provider: Jhonny Aguirre Attending Provider: Jhonny Aguirre Primary Care Provider: Unknown,Unknown Hospital Course Hospital Course: This is a 76 male with history of COPD, laryngeal CA, s/p laryngectomy. Here with 2 days of cough and SOB. No CP. In ER findings of note for temp 39.1, diffuse wheeze and rhonchi, white count 18, interstitial prominence on CXR RLL. Due to prior MRSA in sputum (see 08/31) patient given Vanco and Zosyn, in addition to steroids and updraft. He was slow to respond and continued to be febrile for the next day. His sputum culture did not grow mrsa, his blood cultures negative. After receiving 3 days of IV antibiotics he started feeling better and was down-stepped to augmentin. he will be discharged to home to complete a 7 day course discussed with Dr George Home Meds and New Rx's Prescriptions: New prednisone 20 mg tablet 40 mg PO DAILY Qty: 10 RF: 0 amoxicillin-pot clavulanate [Augmentin] 875-125 mg tablet 1 tab PO BID Qty: 14 RF: 0 Continued finasteride 5 mg tablet 5 mg PO DAILY Qty: 90 RF: 3 omeprazole 20 mg capsule,delayed release(DR/EC) 20 mg feeding tube BID Qty: 90 RF: 4 acetylcysteine 100 mg/mL (10 %) solution 4 ml inhalation Q4H RF: 0 amlodipine 5 mg tablet 5 mg PO DAILY RF: 0 ferrous sulfate 300 mg (60 mg iron)/5 mL liquid 300 mg PO DAILY RF: 0 gabapentin 100 mg capsule 200 mg PO BID RF: 0 levothyroxine 112 mcg/mL solution 112 mcg PO DAILY RF: 0 ropinirole 1 mg tablet 1 mg PO BID RF: 0 polyethylene glycol 3350 [Miralax] 17 gram/dose powder 17 g PO PRN RF: 0 Adult Probiotic 3 billion cell capsule 3,000 mmu cells PO BID RF: 0 rosuvastatin 40 mg tablet 40 mg feeding tube HS Qty: 90 RF: 4 alfuzosin [Uroxatral] 10 mg tablet extended release 24 hr 10 mg PO DAILY Qty: 90 RF: 3 citalopram 20 mg tablet 20 mg PO DAILY Qty: 90 RF: 4 ipratropium-albuterol 0.5 mg-3 mg(2.5 mg base)/3 mL solution for nebulization 3 ml IN QID PRN (Reason: shortness of breath or wheezing) Qty: 90 RF: 4 nystatin 100,000 unit/gram powder 1 applic topical BID PRN (Reason: fungal infections ) Qty: 60 RF: 12 melatonin 3 MG tablet 6 mg PO HS RF: 0 aspirin 81 mg Tablet,Chewable 81 mg feeding tube DAILY RF: 0 sodium chloride 3 % solution for nebulization 4 ml INHALATION BID RF: 0 Discharge Instructions Instructions: Aspiration Pneumonia (DC) Stand Alone Forms: Nursing Discharge Form Referrals: Unknown,Unknown [Primary Care Provider] - (call you DR for an Appointment outpatient visit with pcp in one week) Activity:: Activity as Tolerated Equipment/Supplies:: No Equipment Needed Diet:: resume usual Discharge Orders Discharge Orders: Discharge Order (Routine); Ordered 04/10/21 Ordered By: Grecia Guillen Discharge Data Discharge Date/Time-TO BE ENTERED AT DEPARTURE: 04/10/21 14:00 DS: Summary Time Spent with Patient providing and/or coordinating discharge services: Less than 30 minutes Status at Discharge Functional status at discharge: independent ambulation Overall status at discharge: patient is progressing back to baseline Mental Status: mental status grossly normal Speech and Movement: speech and movement normal Mood: congruent mood Affect: normal affect Exam Const General: cooperative, comfortable, no acute distress, frail appearing and ill appearing chronically Nutritional Appearance: average body habitus Orientation: alert, awake and oriented x3 HENMT Head: normal to inspection, normocephalic and atraumatic Neck Neck: tracheostomy present Chest Chest: normal inspection of the chest Resp Effort & Inspection: normal respiratory effort Auscultation: rhonchi right lower and no wheezes GI Inspection: normal to inspection Palpation: soft Auscultation: normal bowel sounds Skin Rashes: no rashes Extrem General: normal to inspection, full ROM and no pedal edema Psych Mental Status: mental status grossly normal Speech and Movement: speech and movement normal Mood: congruent mood Affect: normal affect DS: Data Vitals/I&O Vitals and I&O: Vital Signs Temperature 36.8 C 04/10/21 08:40 Temperature Source Tympanic 04/10/21 08:40 Pulse 84 04/10/21 08:40 Pulse Rhythm Regular 04/10/21 10:23 Pulse 102 H 04/07/21 23:31 Respiratory Rate 17 04/10/21 08:40 Respiratory Effort Short of Breath 04/10/21 10:23 Respiratory Depth Normal 04/10/21 10:23 Respiratory Pattern Normal 04/10/21 10:23 Blood Pressure 106/73 04/10/21 08:40 Blood Pressure Mean 84 04/07/21 23:31 Blood Pressure Position Supine 04/07/21 19:42 Pulse Oximetry 96 04/10/21 08:40 Oxygen Delivery Method Room Air 04/10/21 08:40 Oxygen Flow Rate 0 04/10/21 08:40 Pain Level 0 04/10/21 08:40 Intake & Output 04/09/21 04/09/21 04/10/21 11:59 23:59 11:59 Intake Total 100 / 700 600 / 700 320 / 320 Output Total 600 / 1625 1025 / 1625 400 / 400 Balance -500 / -925 -425 / -925 -80 / -80 Intake: IV 100 / 700 600 / 700 200 / 200 Oral 120 / 120 Output: Urine 600 / 1625 1025 / 1625 400 / 400 Other: Urine Color Pale Yellow Yellow Yellow Urine Appearance Clear Clear Clear Urine Odor Normal Normal Voiding Methods Urinal Urinal Urinal Data Completed and Pending Labs on day of discharge: Labs from last 24 hours 04/10/21 04/10/21 07:18 07:18 WBC 13.93 H RBC 4.62 Hgb 14.1 Hct 43.0 MCV 93.1 MCH 30.5 MCHC 32.8 RDW 13.2 Plt Count 273 MPV 9.8 Immature Gran % 0.4 Neutrophils % 93.5 Lymphocytes % 3.8 Monocytes % 2.2 Eosinophils % 0.0 Basophils % 0.1 Nucleated RBC % 0 Absolute Neutrophils 13.02 H Absolute Lymphocytes 0.53 L Absolute Monocytes 0.31 Absolute Eosinophils 0.00 Absolute Basophils 0.01 Sodium 140 Potassium 3.5 Chloride 102 Carbon Dioxide 31.7 Anion Gap 6.3 BUN 24 H Creatinine 0.8 Estimated GFR/1.73 m2 >= 60.00 Glucose 155 H Calcium 8.6 04/09/21 09:45 Nose MRSA Screen - Pending Preliminary micro results at discharge 04/08/21 12:00 Sputum Culture - Preliminary Sputum Normal Joie 04/07/21 20:37 Blood Culture - Preliminary Blood NO GROWTH 48 HOURS 04/07/21 20:20 Blood Culture - Preliminary Blood NO GROWTH 48 HOURS 04/09/21 09:45 MRSA Screen - Pending Nose [facility] Medical History 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 Anemia Anxiety Anxiety 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 Blockage of feeding tube 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/17) CAD (coronary artery disease) Complication of feeding tube Conjunctivitis, chronic COPD (chronic obstructive pulmonary disease) COPD (chronic obstructive pulmonary disease) Cortical cataract of right eye Depression Depressive disorder (11/18/12) 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 Tobacco use Surgical History 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) Sin-mullins button placed by Dr Elia Mcdonald [facility] History of esophagogastroduodenoscopy (EGD) (~08/10/19) Daron Casper APRN @ [facility] [place]: hiatal hernia, GERD, Reyes's esophagitis, neuromuscular dysfunction History of laryngectomy History of radical laryngectomy History of tarsorrhaphy PROCEDURES RT/LEFT HEART CARD CATH COMPLETE LARYNGECTOMY Esophagoplasty S/P AAA (abdominal aortic aneurysm) repair Status post cardiac catheterization Status post cataract extraction and insertion of intraocular lens of left eye (04/30/12) Status post cataract extraction and insertion of intraocular lens of right eye (07/12/18) Status post laryngectomy Social History Smoking/Tobacco Use Status: Former Tobacco Use Tobacco: How many years used: 30 Smoking risk assessment performed?: Yes Alcohol Intake: never Drug use: Never Substance use type: does not use Current gender identity: male Do you feel safe at home: Yes Do you feel safe in your relationship?: Yes
--- NOTE | 2021-04-10 13:09 | W.PM.PROGNOT ---
Objective Last Vital Signs Temp 36.8 C 04/10/21 08:40 Pulse 84 04/10/21 08:40 Resp 17 04/10/21 08:40 BP 106/73 04/10/21 08:40 Pulse Ox 96 04/10/21 08:40 Laboratory Results - last 24 hr 04/10/21 04/10/21 07:18 07:18 WBC 13.93 H RBC 4.62 Hgb 14.1 Hct 43.0 MCV 93.1 MCH 30.5 MCHC 32.8 RDW 13.2 Plt Count 273 MPV 9.8 Immature Gran % 0.4 Neutrophils % 93.5 Lymphocytes % 3.8 Monocytes % 2.2 Eosinophils % 0.0 Basophils % 0.1 Nucleated RBC % 0 Absolute Neutrophils 13.02 H Absolute Lymphocytes 0.53 L Absolute Monocytes 0.31 Absolute Eosinophils 0.00 Absolute Basophils 0.01 Sodium 140 Potassium 3.5 Chloride 102 Carbon Dioxide 31.7 Anion Gap 6.3 BUN 24 H Creatinine 0.8 Estimated GFR/1.73 m2 >= 60.00 Glucose 155 H Calcium 8.6
--- NOTE | 2021-04-10 15:08 | PDOC.CMDIS ---
- If Service Date Differs Date of service: 04/10/21 Time of Service: 15:08 LACE Index Scoring Tool - Questions: Length of Stay (in days): 3 Acuity (Admit via E.D.?): Yes Comorbidities: Chronic Pulmonary Disease, Any Tumor E.D. Visits: 7 - Answers: Total Score: 15 Risk of Readmission: High Risk Care Management Discharge Reason for Hospitalization: COPD, pneumonia Discharge Plan: Chan returned home today with no new services. His caregiver, Kiara, drove him home via private vehicle. He will follow up with his PCP and discharge plan of care. He is happy to be going home. Patient/Family Education Needs: Review discharge instructions regarding activity levels and medications, discussion of self care needs including ask me three and goals of care.
== END 2021-04-10 14:00 | disposition home or self-care (01) | DRG 190 ==
LOC: ER 22:26 → MS 04-08 00:13
PROVIDERS: Internal Medicine; Nurse Practitioner Acute Care; Physician Assistant; Admitting Provider General Practice; Emergency Provider Emergency Medicine; Visit Provider General Practice
DX: J44.0 Chronic obstructive pulmonary disease with (acute) lower respiratory infection (principal); J18.9 Pneumonia, unspecified organism; K94.23 Gastrostomy malfunction; Z85.21 Personal history of malignant neoplasm of larynx; G25.81 Restless legs syndrome; Z90.02 Acquired absence of larynx; G62.9 Polyneuropathy, unspecified; D64.9 Anemia, unspecified; F41.9 Anxiety disorder, unspecified; N40.1 Benign prostatic hyperplasia with lower urinary tract symptoms; I25.10 Atherosclerotic heart disease of native coronary artery without angina pectoris; F32.A Depression, unspecified; Z87.891 Personal history of nicotine dependence; E78.5 Hyperlipidemia, unspecified; I10 Essential (primary) hypertension; E03.9 Hypothyroidism, unspecified
CPT/HCPCS: 43762; 36415; 80048; 80053; 87040; 87081; 87635; 93005; 94640; 96361; 96365; 96366; 96367; 96375; 99221; 99285; 71045; 71046; 80202; 81003; 81015; 83605; 83735; 84484; 85025; 87070; 87086; 87205; 93010; 99222; 99233; 99238; J0131; J2270; J2543; J2930; J3480; J3490; J7608; J7620

== ENCOUNTER → 2021-06-26 14:15 | Outpatient (BNVA) | payer MEDICARE, MEDICAID, SELFPAY | PROVIDERS: Visit Provider Nurse Practitioner Gerontology | DX: N40.1 Benign prostatic hyperplasia with lower urinary tract symptoms (principal); N13.8 Other obstructive and reflux uropathy; Z79.899 Other long term (current) drug therapy | CPT/HCPCS: 99214 ==

== ENCOUNTER 2021-07-01 08:40 | Inpatient (IN) | payer MEDICARE, MEDICAID, SELFPAY ==
[2021-07-01] VITALS (116 sets, daily range): BP systolic 80–220; BP diastolic 57–122; PULSE 83–141; RESP 2–39; TEMP 36.4–36.8; O2SAT 58–99
--- NOTE | 2021-07-01 09:12 | W.ED.GENAD ---
Discharge Plan Disposition Patient Disposition: [facility] INPATIENT Condition: Fair Discharge Details Chief Complaint: SOB Clinical Impression: Pneumonia, Shortness of breath Admit Date/Time: 07/01/21 11:53 Admit Provider: Fabian Levine Attending Provider: Fabian Levine Primary Care Provider: Alan,Unknown ED Provider: Cathy Gan Discharge Instructions Activity:: Activity as Tolerated Equipment/Supplies:: No Equipment Needed Diet:: resume home diet Discharge Orders Discharge Orders: Discharge Order (Routine); Ordered 07/02/21 Ordered By: Fabian Levine Discharge Data Discharge Date/Time-TO BE ENTERED AT DEPARTURE: 07/01/21 13:26 Medical Decision Making Chan Nevarez is a 76-year-old man with a history of COPD, laryngeal cancer s/p laryngectomy, hypothyroidism, coronary artery disease, hyperlipidemia, hypertension who presented to the emergency department with shortness of breath. Patient was shortness of breath for unclear amount of time, patient reporting that he has felt short of breath for months, also states that his home O2 sats today were in the 40s. O2 sats here initially in the 50s. Oxygen tubing in place upon arrival (treatment tubing with max O2 delivery 6 L/min) replace with appropriate tubing, patient placed on 10 L O2 with improvement to sats in the 90s. Patient reporting feeling improved from arrival but continues to feel short of breath. Concern for COPD exacerbation, COVID, bacterial pneumonia, CHF, ACS, pulmonary embolism, other. Plan for chest x-ray, EKG, screening labs, telemetry, DuoNeb, steroids. Will monitor and reassess. Patient noted to have blood pressure 80/30 in right arm and radial pulse not palpable on right compared to left, left-sided blood pressure 150/70. Patient continues to report that he feels short of breath and not at baseline. No further wheeze after DuoNeb. Plan for CTA for further evaluation. CTA negative for acute vascular emergency. No PE. Right-sided infiltrate present, plan for IV antibiotics for bacterial pneumonia. Patient with intermittent borderline hypoxia 89 to 90% and tachycardia, this seems related to inadequate oxygen tubing use during DuoNeb treatment and secondary to change in tubing with transfer to diagnostic imaging. Tachycardia and oxygenation improved dramatically with appropriate tubing and 10 L oxygen. Plan for admission. Medical Records Medical records reviewed: Yes I reviewed the patient's medical records. Imaging Data Radiologic Study: Attestation: I personally reviewed and interpreted this imaging study as follows: Radiologist's impression: EXAM: CT THORAX ABD/PEL CTA CLINICAL HISTORY: SOB, unequal pulses UEs. TECHNIQUE: Imaging Protocol: Axial CT angiography was performed with multi-slice acquisition and multi-planar and/or 3D reconstructions. CONTRAST MATERIAL: Intravenous: Omnipaque 350 Contrast volume:100 ml COMPARISON: CT CT ABD AORTA CTA W RUNOFF from 07/16/2020 CR XR CHEST 2V PA LATERAL from 04/09/2021 FINDINGS: CHEST: Exam is significantly limited by respiratory motion. Pulmonary Arteries: No evidence of filling defect to suggest pulmonary emboli. Tracheobronchial tree: Not well evaluated due to motion. Patent where visualized. Mediastinum and Sonali: Mildly enlarged right superior hilar and right paratracheal lymph nodes. Small left hilar lymph nodes. Small hiatal hernia. Pulmonary parenchyma: Suboptimal evaluation due to motion. Underlying of fibrotic and emphysematous changes. Superimposed infiltrates in the upper lobes, right greater than left. Mild hazy infiltrate superior segment right lower lobe. Pleura: No effusion or pneumothorax. Heart: The heart is mildly dilated. Heavy coronary artery calcifications are seen. Aorta: Severe atherosclerotic changes. Stent mid to distal thoracic aorta and tortuosity. No dissection or leak. Bones: Stable severe T12 compression fracture. Stable mild T7 compression fracture. Scoliosis and degenerative changes are also present. ABDOMEN: Liver: Normal density. No measurable mass. Portal, Superior Mesenteric, and Splenic Veins: Unremarkable. Gallbladder and Biliary Tract: Small gallstones. No biliary dilation. Pancreas: Normal density, no abnormal calcifications or inflammatory process. Stomach: Peg tube. No abnormal distension. Spleen: Normal. Adrenals: No masses seen. Kidneys: Normal size, contour and axis. No radiodense stones or obstructive uropathy. No masses seen. Abdominal Aorta: Cysts stents seen throughout. Stable dilatation and aneurysm. No evidence of leak or dissection. Celiac artery, SMA as well as bilateral renal artery stents appear intact. Iliac bilateral iliac stents are intact.. Bowel: No obstruction or bowel wall thickening. Appendix not definitely seen.. Normal quantity of stool. Peritoneal Cavity: No ascites, collection or mesenteric inflammatory response. Lymph Nodes: Within normal limits. Bones: Stable severe L1 compression fracture. Degenerative changes.. Soft Tissues: Unremarkable. PELVIS: Bladder: Bladder diverticula. No mass or stone visible.. Reproductive Organs: Unremarkable as visualized. Lymph Nodes: Within normal limits. Bones: No acute abnormality. IMPRESSION: 1. No evidence of pulmonary embolism. Intact aortic stents. 2. Bilateral infiltrates, greatest in the right upper lobe. 3. No change in aortic and branch vessel stents. No acute abnormality is seen in the abdomen or pelvis. EXAM: XR PORTABLE CHEST AP CLINICAL HISTORY: SOB TECHNIQUE: 2D digital imaging was performed. COMPARISON: CT CT chest w from 08/27/[address] ABD AORTA CTA W RUNOFF from 07/16/2020 CR,XR XR CHEST 2V PA LATERAL from 07/20/2020 CR,XR XR PORTABLE CHEST AP from 11/24/2020 CR,XR XR PORTABLE CHEST AP from 04/07/2021 CR XR CHEST 2V PA LATERAL from 04/09/2021 FINDINGS: Underlying fibrotic changes. Superimposed infiltrates in the upper lobes, right greater than left. No effusion or pneumothorax. Heart size within normal limits. Aorta markedly tortuous. Mid and distal aortic stents. Surgical clips near left lung apex. Oxygen tubing over left upper lobe. IMPRESSION: Bilateral infiltrates, greatest in the right upper lobe. Underlying changes of pulmonary fibrosis. Lab Data Lab results reviewed: Yes I reviewed the patient's lab results. Labs: 07/01/21 10:45 Urine - Reflex from Ua Urine Culture - Pending 07/01/21 10:20 Blood Blood Culture - Pending 07/01/21 09:55 Blood Blood Culture - Pending Laboratory Tests Range/Units 07/01/21 07/01/21 07/01/21 09:08 09:10 09:10 WBC (4.4-10.8) 10^3/uL 21.85 H RBC (4.36-5.78) 10^6/uL 4.83 Hgb (13.5-17.5) g/dL 15.1 Hct (40.0-50.0) % 47.0 MCV (80-95) fL 97.3 H MCH (27.0-33.0) pg 31.3 MCHC (32.0-36.0) % 32.1 RDW (11.8-14.1) % 13.3 Plt Count (130-400) 10^3/uL 328 MPV (8.0-11.0) fL 9.7 Immature Gran % 0.4 Neutrophils % 85.7 Lymphocytes % 4.7 Monocytes % 6.4 Eosinophils % 2.2 Basophils % 0.6 Nucleated RBC % % 0 Absolute Neutrophils (1.2-6.7) 10^3/uL 18.73 H Absolute Lymphocytes (1.2-3.4) 10^3/uL 1.03 L Absolute Monocytes (0.1-0.8) 10^3/uL 1.40 H Absolute Eosinophils (0.0-0.7) 10^3/uL 0.48 Absolute Basophils (0.0-0.2) 10^3/uL 0.13 VBG Lactate (0.6-1.4) mmol/L Sodium (136-145) mmol/L Potassium (3.5-5.1) mmol/L Chloride (98-107) mmol/L Carbon Dioxide (21.0-32.0) mmol/L Anion Gap (3-11) mmol/L BUN (7-18) mg/dL Creatinine (0.70-1.30) mg/dL Estimated GFR/1.73 m2 (mL/min/1.73m2) Glucose (74-106) mg/dL Calcium (8.5-10.1) mg/dL Magnesium (1.8-2.4) mg/dL Total Bilirubin (0.2-1.0) mg/dL AST (15-37) U/L ALT (16-63) U/L Alkaline Phosphatase (46-116) U/L Troponin I (<or=60) ng/L < 50 NT-Pro-B Natriuret Pep (<300) pg/mL 565 H Total Protein (6.4-8.2) g/dL Albumin (3.4-5.0) g/dL Urine Color (Yellow) Urine Clarity (Clear) Urine pH (5-8) Ur Specific Bertrand (1.005-1.025) Urine Protein (Negative) mg/dL Urine Ketones (Negative) mg/dL Urine Blood (Negative) Urine Nitrite (Negative) Urine Bilirubin (Negative) Urine Urobilinogen (Up TO 0.2) EU/dL Ur Leukocyte Esterase (Negative) Urine RBC (0-2) HPF Urine WBC (0-5) HPF Ur Epithelial Cells (Negative) HPF Urine Crystals (Negative) HPF Urine Bacteria (Negative) HPF Urine Casts (Negative) LPF Urine Mucus (Negative) Urine Other (Negative) Ur Culture Indicated? Urine Glucose (Negative) mg/dL COVID-19 Source Cancelled SARS-CoV-2 (PCR) Cancelled Influenza Type A (PCR) Cancelled Influenza Type B (PCR) Cancelled RSV (PCR) Cancelled Range/Units 07/01/21 07/01/21 07/01/21 09:10 09:10 09:16 WBC (4.4-10.8) 10^3/uL RBC (4.36-5.78) 10^6/uL Hgb (13.5-17.5) g/dL Hct (40.0-50.0) % MCV (80-95) fL MCH (27.0-33.0) pg MCHC (32.0-36.0) % RDW (11.8-14.1) % Plt Count (130-400) 10^3/uL MPV (8.0-11.0) fL Immature Gran % Neutrophils % Lymphocytes % Monocytes % Eosinophils % Basophils % Nucleated RBC % % Absolute Neutrophils (1.2-6.7) 10^3/uL Absolute Lymphocytes (1.2-3.4) 10^3/uL Absolute Monocytes (0.1-0.8) 10^3/uL Absolute Eosinophils (0.0-0.7) 10^3/uL Absolute Basophils (0.0-0.2) 10^3/uL VBG Lactate (0.6-1.4) mmol/L Sodium (136-145) mmol/L 139 Potassium (3.5-5.1) mmol/L 3.2 L Chloride (98-107) mmol/L 97 L Carbon Dioxide (21.0-32.0) mmol/L 31.8 Anion Gap (3-11) mmol/L 10.2 BUN (7-18) mg/dL 18 Creatinine (0.70-1.30) mg/dL 1.0 Estimated GFR/1.73 m2 (mL/min/1.73m2) >= 60.00 Glucose (74-106) mg/dL 118 H Calcium (8.5-10.1) mg/dL 9.4 Magnesium (1.8-2.4) mg/dL 2.0 Total Bilirubin (0.2-1.0) mg/dL 0.7 AST (15-37) U/L 19 ALT (16-63) U/L 18 Alkaline Phosphatase (46-116) U/L 109 Troponin I (<or=60) ng/L NT-Pro-B Natriuret Pep (<300) pg/mL Total Protein (6.4-8.2) g/dL 8.3 H Albumin (3.4-5.0) g/dL 3.4 Urine Color (Yellow) Urine Clarity (Clear) Urine pH (5-8) Ur Specific Bertrand (1.005-1.025) Urine Protein (Negative) mg/dL Urine Ketones (Negative) mg/dL Urine Blood (Negative) Urine Nitrite (Negative) Urine Bilirubin (Negative) Urine Urobilinogen (Up TO 0.2) EU/dL Ur Leukocyte Esterase (Negative) Urine RBC (0-2) HPF Urine WBC (0-5) HPF Ur Epithelial Cells (Negative) HPF Urine Crystals (Negative) HPF Urine Bacteria (Negative) HPF Urine Casts (Negative) LPF Urine Mucus (Negative) Urine Other (Negative) Ur Culture Indicated? Urine Glucose (Negative) mg/dL COVID-19 Source Nasopharynx SARS-CoV-2 (PCR) Negative Influenza Type A (PCR) Negative Influenza Type B (PCR) Negative RSV (PCR) Negative Range/Units 07/01/21 07/01/21 09:55 10:45 WBC (4.4-10.8) 10^3/uL RBC (4.36-5.78) 10^6/uL Hgb (13.5-17.5) g/dL Hct (40.0-50.0) % MCV (80-95) fL MCH (27.0-33.0) pg MCHC (32.0-36.0) % RDW (11.8-14.1) % Plt Count (130-400) 10^3/uL MPV (8.0-11.0) fL Immature Gran % Neutrophils % Lymphocytes % Monocytes % Eosinophils % Basophils % Nucleated RBC % % Absolute Neutrophils (1.2-6.7) 10^3/uL Absolute Lymphocytes (1.2-3.4) 10^3/uL Absolute Monocytes (0.1-0.8) 10^3/uL Absolute Eosinophils (0.0-0.7) 10^3/uL Absolute Basophils (0.0-0.2) 10^3/uL VBG Lactate (0.6-1.4) mmol/L 1.0 Sodium (136-145) mmol/L Potassium (3.5-5.1) mmol/L Chloride (98-107) mmol/L Carbon Dioxide (21.0-32.0) mmol/L Anion Gap (3-11) mmol/L BUN (7-18) mg/dL Creatinine (0.70-1.30) mg/dL Estimated GFR/1.73 m2 (mL/min/1.73m2) Glucose (74-106) mg/dL Calcium (8.5-10.1) mg/dL Magnesium (1.8-2.4) mg/dL Total Bilirubin (0.2-1.0) mg/dL AST (15-37) U/L ALT (16-63) U/L Alkaline Phosphatase (46-116) U/L Troponin I (<or=60) ng/L NT-Pro-B Natriuret Pep (<300) pg/mL Total Protein (6.4-8.2) g/dL Albumin (3.4-5.0) g/dL Urine Color (Yellow) Yellow Urine Clarity (Clear) Cloudy Urine pH (5-8) 7.5 Ur Specific Bertrand (1.005-1.025) 1.020 Urine Protein (Negative) mg/dL 100 H Urine Ketones (Negative) mg/dL Negative Urine Blood (Negative) Trace-intact H Urine Nitrite (Negative) Negative Urine Bilirubin (Negative) Negative Urine Urobilinogen (Up TO 0.2) EU/dL 2.0 H Ur Leukocyte Esterase (Negative) Moderate H Urine RBC (0-2) HPF 0-2 Urine WBC (0-5) HPF >50 H Ur Epithelial Cells (Negative) HPF Few Urine Crystals (Negative) HPF Negative Urine Bacteria (Negative) HPF Rare Urine Casts (Negative) LPF 0-2 Hyaline Urine Mucus (Negative) Negative Urine Other (Negative) Moderate Yeast Ur Culture Indicated? Yes Urine Glucose (Negative) mg/dL Negative COVID-19 Source SARS-CoV-2 (PCR) Influenza Type A (PCR) Influenza Type B (PCR) RSV (PCR) ECG Data Attestation: I personally reviewed and interpreted this ECG (s) as follows: Interpretation: EKG shows sinus rhythm at 99, normal axis, right bundle branch block, no STEMI, nondiagnostic EKG HPI General Mode of arrival: wheelchair. Date/Time Provider Initiated Documentation: 07/01/21 08:42. Limitations to Documentation: other. Information obtained by: patient, RN notes reviewed and old records reviewed. HPI Narrative: Chan Nevarez is a 76-year-old man with a history of COPD, laryngeal cancer s/p laryngectomy, hypothyroidism, coronary artery disease, hyperlipidemia, hypertension presenting to the emergency department with shortness of breath. History is difficult to obtain due to difficulty understanding patient as he is status post laryngectomy. Patient reports that he has been feeling short of breath for months. He states that his oxygen saturations have been in the 40s at home recently. He states he has been coughing. He denies any pain, vomiting, diarrhea, fever, numbness, weakness. Patient arrives with treatment tubing connected to trach mask that has MAC capacity 6 L/min of oxygen, respiratory therapy at bedside states that patient is well-known to her, states that patient is never on less than 8 L of oxygen more often 10. Patient states that he has had that tubing in place for at least today and maybe yesterday. Related Data Home Medications Medication Instructions Recorded Confirmed omeprazole 20 mg capsule,delayed 20 mg FEEDING TUBE BID #90 cap 10/05/19 07/01/21 release aspirin 81 mg FEEDING TUBE DAILY 10/29/19 07/01/21 melatonin 6 mg PO HS 10/29/19 07/01/21 rosuvastatin 40 mg tablet 40 mg FEEDING TUBE HS #90 tab 12/14/19 07/01/21 citalopram 20 mg tablet 20 mg PO DAILY #90 tab 05/18/20 07/01/21 acetylcysteine 100 mg/mL (10 %) 4 ml INHALATION Q4H ml 07/05/20 07/01/21 solution ipratropium 0.5 mg-albuterol 3 mg 3 ml IN QID PRN #90 ml 07/30/20 07/01/21 (2.5 mg base)/3 mL nebulization soln amlodipine 5 mg tablet 5 mg PO DAILY 10/04/20 07/01/21 ferrous sulfate 300 mg (60 mg 300 mg PO DAILY 10/04/20 07/01/21 iron)/5 mL oral liquid gabapentin 100 mg capsule 200 mg PO BID cap 10/04/20 07/01/21 lactobacillus combination no.8 3 3,000 mmu cells PO BID cap 10/04/20 07/01/21 billion cell capsule levothyroxine 112 mcg/mL oral 112 mcg PO DAILY 10/04/20 07/01/21 solution polyethylene glycol 3350 17 17 g PO PRN g 10/04/20 07/01/21 gram/dose oral powder ropinirole 1 mg tablet 1 mg PO BID 10/04/20 07/01/21 nystatin 100,000 unit/gram topical 1 applic TOPICAL BID PRN #60 g 02/06/21 07/01/21 powder sodium chloride 4 ml INHALATION BID 04/08/21 07/01/21 prednisone 40 mg PO DAILY #10 tab 04/10/21 07/01/21 alfuzosin 10 mg tablet,extended 10 mg PO DAILY #90 tab-cap 06/26/21 07/01/21 release 24 hr finasteride 5 mg tablet 5 mg PO DAILY #90 tab 06/26/21 07/01/21 prednisone 30 mg PO DAILY #6 tab 07/02/21 sulfamethoxazole-trimethoprim 1 tab PO BID #14 tab 07/02/21 Previous Rx's Medication Instructions Recorded omeprazole 20 mg capsule,delayed 20 mg FEEDING TUBE BID #90 cap 10/05/19 release rosuvastatin 40 mg tablet 40 mg FEEDING TUBE HS #90 tab 12/14/19 citalopram 20 mg tablet 20 mg PO DAILY #90 tab 05/18/20 ipratropium 0.5 mg-albuterol 3 mg 3 ml IN QID PRN #90 ml 07/30/20 (2.5 mg base)/3 mL nebulization soln nystatin 100,000 unit/gram topical 1 applic TOPICAL BID PRN #60 g 02/06/21 powder prednisone 40 mg PO DAILY #10 tab 04/10/21 alfuzosin 10 mg tablet,extended 10 mg PO DAILY #90 tab-cap 06/26/21 release 24 hr finasteride 5 mg tablet 5 mg PO DAILY #90 tab 06/26/21 prednisone 30 mg PO DAILY #6 tab 07/02/21 sulfamethoxazole-trimethoprim 1 tab PO BID #14 tab 07/02/21 Allergies Allergy/AdvReac Type Severity Reaction Status Date / Time pollen extracts Allergy Mild Verified 07/01/21 09:12 Tetracyclines Allergy Unknown SKIN RASH Verified 07/01/21 09:12 General Stated Complaint: SOB CHER: 2 Review of Systems Narrative: Constitutional: denies fevers Eyes: denies eye pain ENT: denies ear pain, dental pain, sore throat Cardiovascular: denies chest pain, edema Respiratory: Reports SOB, cough GI: denies abdominal pain, vomiting, diarrhea : denies flank pain MSK: denies back pain, neck pain, arthralgias, myalgias Skin: denies rash Neuro: denies headaches, numbness, weakness PFSH All Active Problems (Updated 07/08/21 @ 16:04 by Cathy Gan MD) Pneumonia (Acute) Shortness of breath (Acute) Left arm numbness (Acute) Complication of feeding tube (Acute) Peripheral neuropathy (Acute 02/21/15) MRSA pneumonia (Acute) PAOD (peripheral arterial occlusive disease) (Acute) COPD (chronic obstructive pulmonary disease) (Acute) G tube feedings (Acute) changed 10/04 18F 3cm 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 [place] of feeding tube 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/17) CAD (coronary artery disease) Complication of feeding tube Conjunctivitis, chronic COPD (chronic obstructive pulmonary disease) Cortical cataract of right eye Depression Depressive disorder (11/18/12) Dyspnea on exertion Feeding tube dysfunction Hematoma following procedure Herpes zoster History of alcoholism sober x 25yrs History of tobacco use Hyperlipemia Hyperlipidemia (11/18/12) Hypertension Hypertension (11/18/12) Hypothyroidism Hypothyroidism (11/18/12) Impingement syndrome, shoulder, left (10/10/16) -2016: PT sugg. 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 [place] hiatal hernia, GERD, Reyes's esophagitis, neuromuscular dysfunction History of laryngectomy History of radical laryngectomy History of tarsorrhaphy PROCEDURES RT/LEFT HEART CARD CATH COMPLETE LARYNGECTOMY Esophagoplasty S/P AAA (abdominal aortic aneurysm) repair Status post cardiac catheterization Status post cataract extraction and insertion of intraocular lens of left eye (04/30/12) Status post cataract extraction and insertion of intraocular lens of right eye (07/12/18) Status post laryngectomy Social History Smoking/Tobacco Use Status: Former Tobacco Use Tobacco: How many years used: 30 Smoking risk assessment performed?: Yes Alcohol Intake: never Drug use: Never Substance use type: does not use Current gender identity: male Do you feel safe at home: Yes Do you feel safe in your relationship?: Yes Exam Narrative Exam Narrative: Constitutional: Chronically ill-appearing, alert, calm HENT: head atraumatic/normocephalic/normal inspection, mucous membranes moist Eyes: conjunctiva normal, sclera normal, pupils 3mm b/l Neck: no stridor, normal ROM, trachea midline, stoma patent and clear, minimal clear discharge, no trach tube in place Chest: normal inspection Resp: Tachypnea present, diffuse expiratory wheezes bilaterally on auscultation Cardio: Tachycardic rate, normal rhythm, no murmur appreciated GI: abdomen soft, non-tender, non-distended Back: normal inspection, no rash Skin: warm, dry, normal color, no rash Neuro: alert, not altered, grossly non-focal, normal tone Ext: no edema, no posterior calf tenderness to palpation Course Vital Signs Vital signs: Vital Signs Temperature 36.8 C 07/01/21 09:05 Pulse 116 H 07/01/21 09:05 Respiratory Rate 29 H 07/01/21 09:05 Blood Pressure 211/90 H 07/01/21 09:05 Pulse Oximetry 58 L 07/01/21 09:05 Temperature 36.8 C 07/01/21 09:05 Temperature Source Skin 07/01/21 09:05 Pulse 116 H 07/01/21 09:05 Respiratory Rate 29 H 07/01/21 09:05 Respiratory Effort Labored 07/01/21 09:05 Blood Pressure 211/90 H 07/01/21 09:05 Blood Pressure Position Supine 07/01/21 09:05 Pulse Oximetry 58 L 07/01/21 09:05 Oxygen Delivery Method Room Air 07/01/21 09:05 Oxygen Flow Rate 0 07/01/21 09:05 Pain Level 9 07/01/21 09:05 Lab/Test Results Lab/Test Results: Laboratory Tests Range/Units 07/01/21 09:08 COVID-19 Source Cancelled SARS-CoV-2 (PCR) Cancelled Influenza Type A (PCR) Cancelled Influenza Type B (PCR) Cancelled RSV (PCR) Cancelled
--- NOTE | 2021-07-01 09:15 | RT.EKG_ITS ---
APPROVED REPORT Exam: Resting ECG Reason for Exam: SOB Patient Location: E HR:99 bpm ECG Measurements Heart Rate 99 AXIS SD 189 P 36 QRSd 158 QRS 81 QT 383 T -11 QTc 491 Conclusion Sinus rhythm...normal P axis, V-rate 60- 99 Left atrial enlargement...P, P'>60mS, <-0.15mV V1 Right bundle branch block...QRSd>120, terminal axis(90,270) sinus rhythm at 99, normal axis, right bundle branch block, no STEMI, nondiagnostic EKG
[2021-07-01 09:21] LABS: Source Nasopharynx
[2021-07-01] MEDS: methylPREDNISolone SUCC 125 MG VIAL IVP (09:21)
[2021-07-01 09:29] LABS: Abs Immature Grans 0.09 10^3/uL (0.0-0.06); Absolute Basophil Count 0.13 10^3/uL (0.0-0.2); Absolute Eosinophil Count 0.48 10^3/uL (0.0-0.7); Absolute Lymphocyte Count 1.03 10^3/uL (1.2-3.4); Absolute Neutrophil Count 18.73 10^3/uL (1.2-6.7); Basophils % 0.6; Eosinophils % 2.2; HGB 15.1 g/dL (13.5-17.5); Immature Grans % 0.4; Lymphocytes % 4.7; MCH 31.3 pg (27.0-33.0); MCHC 32.1 % (32.0-36.0); MCV 97.3 fL (80-95); MPV 9.7 fL (8.0-11.0); Monocytes % 6.4; Neutrophils % 85.7; Nucleated RBC 0 %; Platelet Count 328 10^3/uL (130-400); RBC 4.83 10^6/uL (4.36-5.78); RDW 13.3 % (11.8-14.1); WBC 21.85 10^3/uL (4.4-10.8)
[2021-07-01 09:39] LABS: ALT 18 U/L (16-63); AST 19 U/L (15-37); Albumin 3.4 g/dL (3.4-5.0); Alkaline Phosphatase 109 U/L (46-116); Anion Gap 10.2 mmol/L (3-11); BUN 18 mg/dL (7-18); Bilirubin, Total 0.7 mg/dL (0.2-1.0); CO2 31.8 mmol/L (21.0-32.0); Calcium 9.4 mg/dL (8.5-10.1); Chloride 97 mmol/L (98-107); Glucose 118 mg/dL (74-106); Potassium 3.2 mmol/L (3.5-5.1); Sodium 139 mmol/L (136-145); Total Protein 8.3 g/dL (6.4-8.2)
[2021-07-01] MEDS: Normal Saline 250 ML IV (09:42)
[2021-07-01 09:46] LABS: NT-proBNP 565 pg/mL (<300); Troponin I < 50 ng/L (<or=60)
[2021-07-01] MEDS: Albuterol/Ipratropium 3 ML UPD VIAL UPD ×2 (09:55→20:07)
[2021-07-01 10:05] LABS: COVID-19 PCR Negative (Negative); Influenza A PCR Negative (Negative); Influenza B PCR Negative (Negative); RSV PCR Negative (Negative)
[2021-07-01] MEDS: PIPERACILLIN/TAZO 4.5 GM in Normal Saline 100 ML IVPB (10:15)
--- NOTE | 2021-07-01 10:15 | DI.CT_ITS ---
Exam(s) CT THORAX ABD/PEL CTA EXAM: CT THORAX ABD/PEL CTA CLINICAL HISTORY: SOB, unequal pulses UEs. TECHNIQUE: Imaging Protocol: Axial CT angiography was performed with multi-slice acquisition and mu lti-planar and/or 3D reconstructions. CONTRAST MATERIAL: Intravenous: Omnipaque 350 Contrast volume:100 ml COMPARISON: CT CT ABD AORTA CTA W RUNOFF from 07/16/2020 CR XR CHEST 2V PA LATERAL from 04/09/2021 FINDINGS: CHEST: Exam is significantly limited by respiratory motion. Pulmonary Arteries: No evidence of filling defect to suggest pulmonary emboli. Tracheobronchial tree: Not well evaluated due to motion. Patent where visualized. Mediastinum and Sonali: Mildly enlarged right superior hilar and right paratracheal lymph nodes. Small left hilar lymph nodes. Small hiatal hernia. Pulmonary parenchyma: Suboptimal evaluation due to motion. Underlying of fibrotic and emphysematous changes. Superimposed infiltrates in the upper lobes, right greater than left. Mild hazy infiltrate superior segment right lower lobe. Pleura: No effusion or pneumothorax. Heart: The heart is mildly dilated. Heavy coronary artery calcifications are seen. Aorta: Severe atherosclerotic changes. Stent mid to distal thoracic aorta and tortuosity. No dissec tion or leak. Bones: Stable severe T12 compression fracture. Stable mild T7 compression fracture. Scoliosis and d egenerative changes are also present. ABDOMEN: Liver: Normal density. No measurable mass. Portal, Superior Mesenteric, and Splenic Veins: Unremarkable. Gallbladder and Biliary Tract: Small gallstones. No biliary dilation. Pancreas: Normal density, no abnormal calcifications or inflammatory process. Stomach: Peg tube. No abnormal distension. Spleen: Normal. Adrenals: No masses seen. Kidneys: Normal size, contour and axis. No radiodense stones or obstructive uropathy. No masses seen. Abdominal Aorta: Cysts stents seen throughout. Stable dilatation and aneurysm. No evidence of leak or dissection. Celiac artery, SMA as well as bilateral renal artery stents appear intact. Iliac bj ateral iliac stents are intact.. Bowel: No obstruction or bowel wall thickening. Appendix not definitely seen.. Normal quantity of st ool. Peritoneal Cavity: No ascites, collection or mesenteric inflammatory response. Lymph Nodes: Within normal limits. Bones: Stable severe L1 compression fracture. Degenerative changes.. Soft Tissues: Unremarkable. PELVIS: Bladder: Bladder diverticula. No mass or stone visible.. Reproductive Organs: Unremarkable as visualized. Lymph Nodes: Within normal limits. Bones: No acute abnormality. IMPRESSION: 1. No evidence of pulmonary embolism. Intact aortic stents. 2. Bilateral infiltrates, greatest in the right upper lobe. 3. No change in aortic and branch vessel stents. No acute abnormality is seen in the abdomen or pelv is. RADIATION DOSE DELIVERED: 776.14mGy.cm Total DLP DATA REPOSITORY: All CT scans at this facility are submitted to the National Radiology Data Registry (NRDR) Dose Index Registry (DIR) with the [employer] (ACR). RADIATION OPTIMIZATION: All CT scans at this facility use at least one of these dose optimization te chniques: automated exposure control; mA and/or kV adjustment per patient size (includes targeted exa ms where dose is matched to clinical indication); or iterative reconstruction.
[2021-07-01] MEDS: VANCOMYCIN/WATER (PEG) 1.5 GM/300 ML BAG IVPB (10:54)
[2021-07-01 10:56] LABS: Bilirubin Negative (Negative); Blood Trace-intact (Negative); Clarity Cloudy (Clear); Glucose Negative (Negative); Ketones Negative (Negative); Leukocyte Esterase Moderate (Negative); Nitrite Negative (Negative); pH 7.5 (5-8)
[2021-07-01] MEDS: POTASSIUM CHLORIDE 20 MEQ/100 ML BAG 50 MEQ IVPB (10:57)
[2021-07-01 11:04] LABS: Epithelial Cells Few HPF (Negative); RBC 0-2 HPF (0-2); WBC >50 HPF (0-5)
[2021-07-01 11:05] LABS: Other Cells Moderate Yeast (Negative)
[2021-07-01 11:06] LABS: Bacteria Rare HPF (Negative); C & S Indicated? Yes; Casts 0-2 Hyaline LPF (Negative); Crystals Negative HPF (Negative); Mucus Negative (Negative)
--- NOTE | 2021-07-01 11:19 | DI.RAD_ITS ---
Exam(s) XR PORTABLE CHEST AP EXAM: XR PORTABLE CHEST AP CLINICAL HISTORY: SOB TECHNIQUE: 2D digital imaging was performed. COMPARISON: CT CT chest w from 08/27/[address] ABD AORTA CTA W RUNOFF from 07/16/2020 CR,XR XR CHEST 2V PA LATERAL from 07/20/2020 CR,XR XR PORTABLE CHEST AP from 11/24/2020 CR,XR XR PORTABLE CHEST AP from 04/07/2021 CR XR CHEST 2V PA LATERAL from 04/09/2021 FINDINGS: Underlying fibrotic changes. Superimposed infiltrates in the upper lobes, right greater than left. No effusion or pneumothorax. Heart size within normal limits. Aorta markedly tortuous. Mid and dis kelly aortic stents. Surgical clips near left lung apex. Oxygen tubing over left upper lobe. IMPRESSION: Bilateral infiltrates, greatest in the right upper lobe. Underlying changes of pulmonary fibrosis. DATA REPOSITORY: RADIATION DOSE DELIVERED:
--- NOTE | 2021-07-01 11:24 | NUR.NOTE ---
Nursing Note: Rhonchi bilat; diminished bilat
[2021-07-01] MEDS: MAGNESIUM SULFATE 1 GM/100 ML BAG IVPB (12:09)
[2021-07-01 12:26] LABS: BE 3 mmol/L (-2-3); HCO3 28 mmol/L (22-26); pCO2 43 mmHg (35-45); pH 7.42 (7.35-7.45); pO2 61 mmHg (80-105); sO2 92 % (95-98); tCO2 25 mmol/L (23-27)
[2021-07-01 12:29] LABS: FIO2 98 %; Site Left Radial
[2021-07-01 12:30] LABS: FIO2L Trach Collar L
[2021-07-01 12:43] LABS: Troponin I < 50 ng/L (<or=60)
--- NOTE | 2021-07-01 15:49 | W.PULMCON ---
General Date Of Service Date of service: 07/01/21 Time of Service: 14:45 Reason for Consult: Foreign body in airway Assessment and Plan Assessment and plan (1) Pneumonia: Status: Acute (2) Fever: Status: Acute (3) Mucus plugging of bronchi: Status: Acute (4) COPD (chronic obstructive pulmonary disease): Status: Acute (5) Dependence on supplemental oxygen: Status: Chronic (6) Foreign body in airway: Status: Acute Assessment and plan: This is a 76 yo man with COPD, laryngeal cancer with a trach stoma and oxygen dependance who presents with a COPD exacerbation and multifocal pneumonia. There was concern for a foreign body being accidentally pushed into his airway. The patient was not confidently sure that he pulled the trumpet out of his airway. Given the acute desaturation and the patients inability to surely tell me he did remove the foreign object I decided to proceed with bronchoscopy for airway inspection. There was no foreign object seen in his airways, however there was significant secretions consistent with multilobar pneumonia bilaterally. There was also clear mucus plugging. It is possible acutely he developed a negative pressure pulmonary edema when the trumpet was truly obstructing his airway (it was filled with secretion). He is still requiring a significant amount of oxygen (over his baseline). I would keep him in ICU and if he were to require more oxygen, I would place a trach into his stoma with a balloon to inflate and initiate mechanical ventilation - keep in mind he will likely not need any sedation as it is through a trach. I will see him as an ICU patient in the morning. Foreign body in airway concern - s/p bronchoscopy, not foreign body seen Multifocal pneumonia - recommend treatment with cefepime - no vanc needed - negative MRSA screen in 03/2021 - can repeat this - I sent a tracheal aspirate for culture COPD and mucus plugging - continue nebs q4hrs - would replace NAC nebs with normal saline nebs - can start PO NAC 600mg bid - recommend CPT percussor 3-4 times daily Hypoxic respiratory failure - continue O2 support for sats 88-92% - if high flow is unable to maintain sats then: - place trach with a balloon on it - inflate balloon and mechanically ventilate through trach on volume control to start: - FiO2 as needed, 6-8cc/kg TV, PEEP 5-10 as needed - agree with palliative care consultation, I do not think CPR is appropriate in this patient given comorbidities and overall survivability History of Present Illness Narrative: This is a 76 yo man with history of COPD, laryngeal cancer s/p laryngectomy who presented today to the ED with shortness of breath. His O2 sats upon arrival was 50%. He was placed on 10L through his trach and his sats did improve. He was admitted with concern for COPD exacerbation and pneumonia. I was called to see the patient with a worry that he pushed what appears to be a plastic respiratory trumpet through his trach hole. He had an acute desaturation and so I was called for airway foreign body. On my assessment he was requiring 100% FiO2 with O2 sats in the mid 90's. He was able to talk with his voice box microphone. He thought he may have pulled out the trumpet but was not confident. There was a trumpet in a baggy in his room but he was unable to tell me whether or not this was the only one or if he had another. He has shortness of breath but it isn't too bad. He does cough and has thick, dark yellow, difficult to mobilize secretions. Review of Systems All systems reviewed & are unremarkable except as noted in HPI and below PFSH All Active Problems (Updated 07/01/21 @ 16:09 by Maddie Sevilla MD) Foreign body in airway (Acute) Pneumonia (Acute) Fever (Acute) Shortness of breath (Acute) Mucus plugging of bronchi (Acute) Left arm numbness (Acute) Complication of feeding tube (Acute) Peripheral neuropathy (Acute 02/21/15) MRSA pneumonia (Acute) PAOD (peripheral arterial occlusive disease) (Acute) COPD (chronic obstructive pulmonary disease) (Acute) G tube feedings (Acute) changed 10/04 18F 3cm 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 Anemia Anxiety Anxiety 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 History of esophagogastroduodenoscopy (EGD) (~08/10/19) Daron Casper APRN @ [facility]: hiatal hernia, GERD, Reyes's esophagitis, neuromuscular dysfunction History of laryngectomy History of radical laryngectomy History of tarsorrhaphy PROCEDURES RT/LEFT HEART CARD CATH COMPLETE LARYNGECTOMY Esophagoplasty S/P AAA (abdominal aortic aneurysm) repair Status post cardiac catheterization Status post cataract extraction and insertion of intraocular lens of left eye (04/30/12) Status post cataract extraction and insertion of intraocular lens of right eye (07/12/18) Status post laryngectomy Social History Smoking/Tobacco Use Status: Former Tobacco Use Tobacco: How many years used: 30 Smoking risk assessment performed?: Yes Alcohol Intake: never Drug use: Never Substance use type: does not use Current gender identity: male Do you feel safe at home: Yes Do you feel safe in your relationship?: Yes Visit Medication and Allergies Active Medications Generic Name Dose Route Start Last Admin Trade Name Freq PRN Reason Stop Dose Admin Albuterol Sulfate 2.5 mg 07/01/21 14:34 Albuterol 2.5 Mg/3 Ml Inh Soln Vial UPD Q2H PRN PRN Albuterol/Ipratropium 3 ml 07/01/21 20:00 Albuterol/Ipratropium 3 Ml Upd Vial UPD BID [facility] Alfuzosin HCl 10 mg 07/02/21 08:30 Alfuzosin 10 Mg Tabcr PO DAILY [facility] Amlodipine Besylate 5 mg 07/02/21 08:30 Amlodipine 5 Mg Tab NG DAILY [facility] Aspirin 81 mg 07/02/21 08:30 Aspirin 81 Mg Chew NG DAILY [facility] Citalopram Hydrobromide 20 mg 07/02/21 08:30 Citalopram 20 Mg Tab NG DAILY [facility] Dimethicone/Zinc Oxide 0 gm 07/01/21 13:46 Madeline Protect Cream 142 Gm Tube TP PRN PRN Enoxaparin Sodium 40 mg 07/01/21 16:00 Enoxaparin 40 Mg/0.4 Ml Syr SC Q24H [facility] Finasteride 5 mg 07/02/21 08:30 Finasteride 5 Mg Tab NG DAILY [facility] Gabapentin 200 mg 07/01/21 20:00 Gabapentin 100 Mg Cap NG BID [facility] Sodium Chloride 500 mls @ 0 mls/hr 07/01/21 11:53 Saline 500ml Bag IV PRN PRN As Directed Acetaminophen 1,000 mg in 100 mls @ 400 mls/hr 07/01/21 13:51 Ofirmev IVPB Q6H PRN PRN Piperacillin/Tazobactam/Dextrose 4.5 gm in 100 mls @ 200 mls/hr 07/01/21 16:00 Zosyn IVPB Q6H [facility] Protocol Vancomycin HCl / Sodium 250 mls @ 0 mls/hr 07/01/21 14:00 Chloride IV .PER PROTOCOL [facility] Protocol As Directed IV Miscellaneous Supplies 1 each 07/01/21 12:00 Iv Access IV DIRECTED [facility] Levothyroxine Sodium 112 mcg 07/02/21 06:00 Levothyroxine 112 Mcg Tab NG DAILY@0600 [facility] Melatonin 6 mg 07/01/21 22:00 Melatonin 3 Mg Tab PO HS [facility] Non-Formulary Medication 4 ml 07/01/21 20:00 Acetylcysteine IH BID [facility] Omeprazole 20 mg 07/01/21 20:00 Omeprazole 20 Mg Capcr NG BID@0730,2000 [facility] Polyethylene Glycol 17 gm 07/01/21 15:12 Polyethylene Glycol 3350 17 Gm Packet NG DAILY PRN PRN Prednisone 20 mg/ Prednisone 30 mg 07/02/21 08:30 10 mg NG DAILY [facility] Ropinirole HCl 1 mg 07/01/21 20:00 Ropinirole 1 Mg Tab NG BID [facility] Rosuvastatin Calcium 40 mg 07/01/21 20:00 Rosuvastatin 20 Mg Tab NG QPM [facility] Sodium Chloride 0 ml 07/01/21 11:53 Normal Saline Flush 10 Ml Syr IVP PRN PRN Allergies pollen extracts Allergy (Mild, Verified 07/01/21 09:12) Tetracyclines Allergy (Unknown, Verified 07/01/21 09:12) SKIN RASH Exam Const General: no acute distress Nutritional Appearance: well nourished [facility] Head: normocephalic Ears: external ears normal and no periauricular adenopathy General nose exam: nasal mucous membranes and turbinates normal Face and sinus: sinuses nontender Mouth: oropharynx normal and moist mucous membranes Teeth and gingiva: dentition normal Eyes General: appearance normal, both eyes and all related structures Pupils: PERRL Neck Neck: tracheostomy present (no catheter in place, open trach stoma with high flow mask covering it) Chest Chest: normal inspection of the chest Resp Effort & Inspection: normal respiratory effort Auscultation: rales, no rhonchi and wheezes Cardio Rate: regular rate Rhythm: regular rhythm Heart Sounds: S1 normal, S2 normal and no murmurs Pulses: radial pulses present bilaterally GI Inspection: normal to inspection Palpation: soft Skin General skin exam: no rashes or lesions noted Neuro General: patient alert, patient awake and patient oriented x3 Extrem General: no clubbing, cyanosis or edema Psych Mental Status: mental status grossly normal Affect: normal affect Attitude: cooperative Results Last Vital Signs Temp 36.8 C 07/01/21 14:14 Pulse 105 H 07/01/21 14:14 Resp 18 07/01/21 14:14 BP 126/67 07/01/21 14:14 Pulse Ox 96 07/01/21 14:14 Labs Result diagrams: 07/01/21 09:10 07/01/21 09:10 Labs: Laboratory Results - last 24 hr 07/01/21 07/01/21 07/01/21 09:08 09:10 09:10 WBC 21.85 H RBC 4.83 Hgb 15.1 Hct 47.0 MCV 97.3 H MCH 31.3 MCHC 32.1 RDW 13.3 Plt Count 328 MPV 9.7 Immature Gran % 0.4 Neutrophils % 85.7 Lymphocytes % 4.7 Monocytes % 6.4 Eosinophils % 2.2 Basophils % 0.6 Nucleated RBC % 0 Absolute Neutrophils 18.73 H Absolute Lymphocytes 1.03 L Absolute Monocytes 1.40 H Absolute Eosinophils 0.48 Absolute Basophils 0.13 ABG Sample Site ABG pH ABG pCO2 ABG pO2 ABG HCO3 ABG Total CO2 ABG O2 Saturation ABG Base Excess VBG Lactate Oxygen Liter Flow FiO2 Sodium Potassium Chloride Carbon Dioxide Anion Gap BUN Creatinine Estimated GFR/1.73 m2 Glucose Calcium Magnesium Total Bilirubin AST ALT Alkaline Phosphatase Troponin I < 50 NT-Pro-B Natriuret Pep 565 H Total Protein Albumin Urine Color Urine Clarity Urine pH Ur Specific Jackson Urine Protein Urine Ketones Urine Blood Urine Nitrite Urine Bilirubin Urine Urobilinogen Ur Leukocyte Esterase Urine RBC Urine WBC Ur Epithelial Cells Urine Crystals Urine Bacteria Urine Casts Urine Mucus Urine Other Ur Culture Indicated? Urine Glucose COVID-19 Source Cancelled SARS-CoV-2 (PCR) Cancelled Influenza Type A (PCR) Cancelled Influenza Type B (PCR) Cancelled RSV (PCR) Cancelled 07/01/21 07/01/21 07/01/21 09:10 09:10 09:16 WBC RBC Hgb Hct MCV MCH MCHC RDW Plt Count MPV Immature Gran % Neutrophils % Lymphocytes % Monocytes % Eosinophils % Basophils % Nucleated RBC % Absolute Neutrophils Absolute Lymphocytes Absolute Monocytes Absolute Eosinophils Absolute Basophils ABG Sample Site ABG pH ABG pCO2 ABG pO2 ABG HCO3 ABG Total CO2 ABG O2 Saturation ABG Base Excess VBG Lactate Oxygen Liter Flow FiO2 Sodium 139 Potassium 3.2 L Chloride 97 L Carbon Dioxide 31.8 Anion Gap 10.2 BUN 18 Creatinine 1.0 Estimated GFR/1.73 m2 >= 60.00 Glucose 118 H Calcium 9.4 Magnesium 2.0 Total Bilirubin 0.7 AST 19 ALT 18 Alkaline Phosphatase 109 Troponin I NT-Pro-B Natriuret Pep Total Protein 8.3 H Albumin 3.4 Urine Color Urine Clarity Urine pH Ur Specific Jackson Urine Protein Urine Ketones Urine Blood Urine Nitrite Urine Bilirubin Urine Urobilinogen Ur Leukocyte Esterase Urine RBC Urine WBC Ur Epithelial Cells Urine Crystals Urine Bacteria Urine Casts Urine Mucus Urine Other Ur Culture Indicated? Urine Glucose COVID-19 Source Nasopharynx SARS-CoV-2 (PCR) Negative Influenza Type A (PCR) Negative Influenza Type B (PCR) Negative RSV (PCR) Negative 07/01/21 07/01/21 07/01/21 09:55 10:45 12:00 WBC RBC Hgb Hct MCV MCH MCHC RDW Plt Count MPV Immature Gran % Neutrophils % Lymphocytes % Monocytes % Eosinophils % Basophils % Nucleated RBC % Absolute Neutrophils Absolute Lymphocytes Absolute Monocytes Absolute Eosinophils Absolute Basophils ABG Sample Site ABG pH ABG pCO2 ABG pO2 ABG HCO3 ABG Total CO2 ABG O2 Saturation ABG Base Excess VBG Lactate 1.0 Oxygen Liter Flow FiO2 Sodium Potassium Chloride Carbon Dioxide Anion Gap BUN Creatinine Estimated GFR/1.73 m2 Glucose Calcium Magnesium Total Bilirubin AST ALT Alkaline Phosphatase Troponin I < 50 NT-Pro-B Natriuret Pep Total Protein Albumin Urine Color Yellow Urine Clarity Cloudy Urine pH 7.5 Ur Specific Jackson 1.020 Urine Protein 100 H Urine Ketones Negative Urine Blood Trace-intact H Urine Nitrite Negative Urine Bilirubin Negative Urine Urobilinogen 2.0 H Ur Leukocyte Esterase Moderate H Urine RBC 0-2 Urine WBC >50 H Ur Epithelial Cells Few Urine Crystals Negative Urine Bacteria Rare Urine Casts 0-2 Hyaline Urine Mucus Negative Urine Other Moderate Yeast Ur Culture Indicated? Yes Urine Glucose Negative COVID-19 Source SARS-CoV-2 (PCR) Influenza Type A (PCR) Influenza Type B (PCR) RSV (PCR) 07/01/21 12:24 WBC RBC Hgb Hct MCV MCH MCHC RDW Plt Count MPV Immature Gran % Neutrophils % Lymphocytes % Monocytes % Eosinophils % Basophils % Nucleated RBC % Absolute Neutrophils Absolute Lymphocytes Absolute Monocytes Absolute Eosinophils Absolute Basophils ABG Sample Site Left Radial ABG pH 7.42 ABG pCO2 43 ABG pO2 61 L ABG HCO3 28 H ABG Total CO2 25 ABG O2 Saturation 92 L ABG Base Excess 3 VBG Lactate Oxygen Liter Flow Trach Collar FiO2 98 Sodium Potassium Chloride Carbon Dioxide Anion Gap BUN Creatinine Estimated GFR/1.73 m2 Glucose Calcium Magnesium Total Bilirubin AST ALT Alkaline Phosphatase Troponin I NT-Pro-B Natriuret Pep Total Protein Albumin Urine Color Urine Clarity Urine pH Ur Specific Jackson Urine Protein Urine Ketones Urine Blood Urine Nitrite Urine Bilirubin Urine Urobilinogen Ur Leukocyte Esterase Urine RBC Urine WBC Ur Epithelial Cells Urine Crystals Urine Bacteria Urine Casts Urine Mucus Urine Other Ur Culture Indicated? Urine Glucose COVID-19 Source SARS-CoV-2 (PCR) Influenza Type A (PCR) Influenza Type B (PCR) RSV (PCR)
--- NOTE | 2021-07-01 16:28 | W.PM.OP ---
Date of service: 07/01/21 Time of Service: 15:15 Operative Note Operative Note Bronchoscopy Date:07/01/21 Time:1515 Indication:Concern for airway foreign object Procedure performed: Flexible bronchoscopy Sedation plan: Has tracheostomy - topical 1% lidocaine through trach stoma Medications used: 1cc of 1% topical lidocaine Informed consent was obtained after the risks and benefits or the procedure were discussed. The patient verbally consented. The patient?s trachea was treated with 1cc of 1% lidocaine through his trach stoma. A proper and complete OR compliant time out was performed. The therapeutic 6.2mm Olympus bronchoscope was inserted through the tracheostom stoma. The trachea was midline and without lesion or injury. The mucosa appeared erythematous and there were signs of tracheobronchomalacia. The rell was sharp. All bronchial subsegments were visualized within each lobe and showed significant thick dark yellow to brown secretions that were difficult to suction. There were no foreign objects present in the airways that were visible to me. Some secretions were suctioned out, however subsegmental airways were not suctioned fully out. The bronchoscope was then removed and the case terminated. The patient was in stable condition for the entirety of the case as well as after termination of the case. Samples collected:bronchial aspirate Testing ordered:bacterial stain and culture Complications:None Maddie Sevilla MD Pulmonary [facility] Critical Care Medicine
[2021-07-01] MEDS: ACETAMINOPHEN 1,000 MG/100 ML BTL 400 MG IVPB (16:37)
[2021-07-01] MEDS: Enoxaparin 40 MG/0.4 ML SYR SC (16:37)
[2021-07-01] MEDS: Normal Saline 500 ML 30 ML IV (16:37)
--- NOTE | 2021-07-01 16:56 | W.PM.HP.N ---
Date of service: 07/01/21 Time of Service: 16:56 Assessment and Plan Assessment and plan (1) Pneumonia: Status: Acute Assessment and plan: Chronic colonization with MRSA per [facility] [place] pulm. Now on cefepime and vancomycin. Follow CBC. Afebrile. (2) Mucus plugging of bronchi: Status: Acute Assessment and plan: Dr Sevilla consulted and performed a bronchoscopy d/t concerns that he had possibly pushed the trumpet down into the trachea. Bronch showed no foreign body, but there were significan secretions and a clear mucus plug that was removed. (3) Laryngeal cancer: Status: None Assessment and plan: s/p laryngectomy. (4) COPD (chronic obstructive pulmonary disease): Status: Acute Assessment and plan: Continue BID [id number] and Mucomyst. Continue 3% saline nebs. Vest therapy BID. (5) Dependence on supplemental oxygen: Status: Chronic Assessment and plan: Maintain O2 saturations in the 88-92% range. Improving since mucous plug removed. History of Present Illness History of Present Illness Chief Complaint: Shortness of breath Narrative: This is a 76 yo male with a significant, extensive PMH of COPD, laryngeal cancer, s/p laryngectomy, CAD, HLD, HTN, hypothyroidism. He presented to the ED with shortness of air. Unknown length of time of increase SOA. He stated home O2 sats were in the 40's. He presented with O2 tubing that was not adequate for delivering the amount of O2 he required so it was changed out. With 10L O2 per [place] sats improved into the 90's. No CP, palpitations. WBC count 21.85. Hgb 15.K 3.2. LFTs normal. CT chest showed no evidence of pulmonary embolism. Intact aortic stents. 2. Bilateral infiltrates, greatest in the right upper lobe. Cefepime and Vancomycin initiated. Admitted to the ICU and pulmonary medicine consulted. Review of Systems All systems reviewed & are unremarkable except as noted in HPI and below PFSH All Active Problems Foreign body in airway (Acute) Pneumonia (Acute) Fever (Acute) Shortness of breath (Acute) Mucus plugging of bronchi (Acute) Left arm numbness (Acute) Complication of feeding tube (Acute) Peripheral neuropathy (Acute 09/09/15) MRSA pneumonia (Acute) PAOD (peripheral arterial occlusive disease) (Acute) COPD (chronic obstructive pulmonary disease) (Acute) G tube feedings (Acute) changed 10/04 18F 3cm 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 Anemia Anxiety Anxiety Aphonia post total laryngectomy [facility] [place] 2007 Blockage of feeding tube 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/17) CAD (coronary artery disease) Complication of feeding tube Conjunctivitis, chronic COPD (chronic obstructive pulmonary disease) Cortical cataract of right eye Depression Depressive disorder (11/18/12) Dyspnea on exertion Feeding tube dysfunction Hematoma following procedure Herpes zoster History of alcoholism sober x 25yrs History of tobacco use Hyperlipemia Hyperlipidemia (11/18/12) Hypertension Hypertension (11/18/12) Hypothyroidism Hypothyroidism (11/18/12) Impingement syndrome, shoulder, left (10/10/16) -2016: PT sugg. 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 History of esophagogastroduodenoscopy (EGD) (~08/10/19) Daron Casper APRN @ [facility]: hiatal hernia, GERD, Reyes's esophagitis, neuromuscular dysfunction History of laryngectomy History of radical laryngectomy History of tarsorrhaphy PROCEDURES RT/LEFT HEART CARD CATH COMPLETE LARYNGECTOMY Esophagoplasty S/P AAA (abdominal aortic aneurysm) repair Status post cardiac catheterization Status post cataract extraction and insertion of intraocular lens of left eye (04/30/12) Status post cataract extraction and insertion of intraocular lens of right eye (07/12/18) Status post laryngectomy Social History Smoking/Tobacco Use Status: Former Tobacco Use Tobacco: How many years used: 30 Smoking risk assessment performed?: Yes Alcohol Intake: never Drug use: Never Substance use type: does not use Current gender identity: male Do you feel safe at home: Yes Do you feel safe in your relationship?: Yes Meds Allergies and Home Medications Allergies Allergy/AdvReac Type Severity Reaction Status Date / Time pollen extracts Allergy Mild Verified 07/01/21 09:12 Tetracyclines Allergy Unknown SKIN RASH Verified 07/01/21 09:12 Home Medications Medication Instructions Recorded Confirmed Type omeprazole 20 mg capsule,delayed 20 mg FEEDING TUBE BID #90 cap 10/05/19 07/01/21 Rx release aspirin 81 mg FEEDING TUBE DAILY 10/29/19 07/01/21 History melatonin 6 mg PO HS 10/29/19 07/01/21 History rosuvastatin 40 mg tablet 40 mg FEEDING TUBE HS #90 tab 12/14/19 07/01/21 Rx citalopram 20 mg tablet 20 mg PO DAILY #90 tab 05/18/20 07/01/21 Rx acetylcysteine 100 mg/mL (10 %) 4 ml INHALATION Q4H ml 07/05/20 07/01/21 History solution ipratropium 0.5 mg-albuterol 3 mg 3 ml IN QID PRN #90 ml 07/30/20 07/01/21 Rx (2.5 mg base)/3 mL nebulization soln amlodipine 5 mg tablet 5 mg PO DAILY 10/04/20 07/01/21 History ferrous sulfate 300 mg (60 mg 300 mg PO DAILY 10/04/20 07/01/21 History iron)/5 mL oral liquid gabapentin 100 mg capsule 200 mg PO BID cap 10/04/20 07/01/21 History lactobacillus combination no.8 3 3,000 mmu cells PO BID cap 10/04/20 07/01/21 History billion cell capsule levothyroxine 112 mcg/mL oral 112 mcg PO DAILY 10/04/20 07/01/21 History solution polyethylene glycol 3350 17 17 g PO PRN g 10/04/20 07/01/21 History gram/dose oral powder ropinirole 1 mg tablet 1 mg PO BID 10/04/20 07/01/21 History nystatin 100,000 unit/gram topical 1 applic TOPICAL BID PRN #60 g 02/06/21 07/01/21 Rx powder sodium chloride 4 ml INHALATION BID 04/08/21 07/01/21 History prednisone 40 mg PO DAILY #10 tab 04/10/21 07/01/21 Rx alfuzosin 10 mg tablet,extended 10 mg PO DAILY #90 tab-cap 06/26/21 07/01/21 Rx release 24 hr finasteride 5 mg tablet 5 mg PO DAILY #90 tab 06/26/21 07/01/21 Rx Exam Const General: no acute distress Nutritional Appearance: well nourished HENVT Head: normocephalic Ears: external ears normal Mouth: oropharynx normal and moist mucous membranes Teeth and gingiva: dentition normal Eyes General: appearance normal, both eyes and all related structures Pupils: PERRL Neck Neck: no lymphadenopathy and tracheostomy present (mucous at opening of trach site. ) Chest Chest: normal inspection of the chest Resp Effort & Inspection: normal respiratory effort Auscultation: clear to auscultation bilaterally, no rales, no rhonchi and no wheezes Cardio Rate: regular rate Rhythm: regular rhythm Heart Sounds: S1 normal, S2 normal and no murmurs Pulses: radial pulses present bilaterally GI Inspection: normal to inspection Palpation: soft and nontender Auscultation: normal bowel sounds Skin General skin exam: no rashes or lesions noted Neuro General: patient alert, patient awake and patient oriented x3 Extrem General: no clubbing, cyanosis or edema Psych Mental Status: mental status grossly normal Affect: normal affect Attitude: cooperative Results Labs Result diagrams: 07/02/21 06:20 07/02/21 06:20 Labs: Laboratory Results - last 24 hr 07/01/21 07/01/21 07/01/21 09:08 09:10 09:10 WBC 21.85 H RBC 4.83 Hgb 15.1 Hct 47.0 MCV 97.3 H MCH 31.3 MCHC 32.1 RDW 13.3 Plt Count 328 MPV 9.7 Immature Gran % 0.4 Neutrophils % 85.7 Lymphocytes % 4.7 Monocytes % 6.4 Eosinophils % 2.2 Basophils % 0.6 Nucleated RBC % 0 Absolute Neutrophils 18.73 H Absolute Lymphocytes 1.03 L Absolute Monocytes 1.40 H Absolute Eosinophils 0.48 Absolute Basophils 0.13 ABG Sample Site ABG pH ABG pCO2 ABG pO2 ABG HCO3 ABG Total CO2 ABG O2 Saturation ABG Base Excess VBG Lactate Oxygen Liter Flow FiO2 Sodium Potassium Chloride Carbon Dioxide Anion Gap BUN Creatinine Estimated GFR/1.73 m2 Glucose Calcium Magnesium Total Bilirubin AST ALT Alkaline Phosphatase Troponin I < 50 NT-Pro-B Natriuret Pep 565 H Total Protein Albumin Urine Color Urine Clarity Urine pH Ur Specific [place] Urine Protein Urine Ketones Urine Blood Urine Nitrite Urine Bilirubin Urine Urobilinogen Ur Leukocyte Esterase Urine RBC Urine WBC Ur Epithelial Cells Urine Crystals Urine Bacteria Urine Casts Urine Mucus Urine Other Ur Culture Indicated? Urine Glucose COVID-19 Source Cancelled SARS-CoV-2 (PCR) Cancelled Influenza Type A (PCR) Cancelled Influenza Type B (PCR) Cancelled RSV (PCR) Cancelled 07/01/21 07/01/21 07/01/21 09:10 09:10 09:16 WBC RBC Hgb Hct MCV MCH MCHC RDW Plt Count MPV Immature Gran % Neutrophils % Lymphocytes % Monocytes % Eosinophils % Basophils % Nucleated RBC % Absolute Neutrophils Absolute Lymphocytes Absolute Monocytes Absolute Eosinophils Absolute Basophils ABG Sample Site ABG pH ABG pCO2 ABG pO2 ABG HCO3 ABG Total CO2 ABG O2 Saturation ABG Base Excess VBG Lactate Oxygen Liter Flow FiO2 Sodium 139 Potassium 3.2 L Chloride 97 L Carbon Dioxide 31.8 Anion Gap 10.2 BUN 18 Creatinine 1.0 Estimated GFR/1.73 m2 >= 60.00 Glucose 118 H Calcium 9.4 Magnesium 2.0 Total Bilirubin 0.7 AST 19 ALT 18 Alkaline Phosphatase 109 Troponin I NT-Pro-B Natriuret Pep Total Protein 8.3 H Albumin 3.4 Urine Color Urine Clarity Urine pH Ur Specific [place] Urine Protein Urine Ketones Urine Blood Urine Nitrite Urine Bilirubin Urine Urobilinogen Ur Leukocyte Esterase Urine RBC Urine WBC Ur Epithelial Cells Urine Crystals Urine Bacteria Urine Casts Urine Mucus Urine Other Ur Culture Indicated? Urine Glucose COVID-19 Source Nasopharynx SARS-CoV-2 (PCR) Negative Influenza Type A (PCR) Negative Influenza Type B (PCR) Negative RSV (PCR) Negative 07/01/21 07/01/21 07/01/21 09:55 10:45 12:00 WBC RBC Hgb Hct MCV MCH MCHC RDW Plt Count MPV Immature Gran % Neutrophils % Lymphocytes % Monocytes % Eosinophils % Basophils % Nucleated RBC % Absolute Neutrophils Absolute Lymphocytes Absolute Monocytes Absolute Eosinophils Absolute Basophils ABG Sample Site ABG pH ABG pCO2 ABG pO2 ABG HCO3 ABG Total CO2 ABG O2 Saturation ABG Base Excess VBG Lactate 1.0 Oxygen Liter Flow FiO2 Sodium Potassium Chloride Carbon Dioxide Anion Gap BUN Creatinine Estimated GFR/1.73 m2 Glucose Calcium Magnesium Total Bilirubin AST ALT Alkaline Phosphatase Troponin I < 50 NT-Pro-B Natriuret Pep Total Protein Albumin Urine Color Yellow Urine Clarity Cloudy Urine pH 7.5 Ur Specific [place] 1.020 Urine Protein 100 H Urine Ketones Negative Urine Blood Trace-intact H Urine Nitrite Negative Urine Bilirubin Negative Urine Urobilinogen 2.0 H Ur Leukocyte Esterase Moderate H Urine RBC 0-2 Urine WBC >50 H Ur Epithelial Cells Few Urine Crystals Negative Urine Bacteria Rare Urine Casts 0-2 Hyaline Urine Mucus Negative Urine Other Moderate Yeast Ur Culture Indicated? Yes Urine Glucose Negative COVID-19 Source SARS-CoV-2 (PCR) Influenza Type A (PCR) Influenza Type B (PCR) RSV (PCR) 07/01/21 12:24 WBC RBC Hgb Hct MCV MCH MCHC RDW Plt Count MPV Immature Gran % Neutrophils % Lymphocytes % Monocytes % Eosinophils % Basophils % Nucleated RBC % Absolute Neutrophils Absolute Lymphocytes Absolute Monocytes Absolute Eosinophils Absolute Basophils ABG Sample Site Left Radial ABG pH 7.42 ABG pCO2 43 ABG pO2 61 L ABG HCO3 28 H ABG Total CO2 25 ABG O2 Saturation 92 L ABG Base Excess 3 VBG Lactate Oxygen Liter Flow Trach Collar FiO2 98 Sodium Potassium Chloride Carbon Dioxide Anion Gap BUN Creatinine Estimated GFR/1.73 m2 Glucose Calcium Magnesium Total Bilirubin AST ALT Alkaline Phosphatase Troponin I NT-Pro-B Natriuret Pep Total Protein Albumin Urine Color Urine Clarity Urine pH Ur Specific [place] Urine Protein Urine Ketones Urine Blood Urine Nitrite Urine Bilirubin Urine Urobilinogen Ur Leukocyte Esterase Urine RBC Urine WBC Ur Epithelial Cells Urine Crystals Urine Bacteria Urine Casts Urine Mucus Urine Other Ur Culture Indicated? Urine Glucose COVID-19 Source SARS-CoV-2 (PCR) Influenza Type A (PCR) Influenza Type B (PCR) RSV (PCR) Last Vital Signs Temp 36.8 C 07/01/21 14:14 Pulse 105 H 07/01/21 14:14 Resp 18 07/01/21 14:14 BP 126/67 07/01/21 14:14 Pulse Ox 96 07/01/21 14:14
[2021-07-01] MEDS: rOPINIRole 1 MG TAB NG (18:11)
[2021-07-01] MEDS: Omeprazole 20 MG CAPCR NG (20:06)
[2021-07-01] MEDS: ROSUVASTATIN 20 MG TAB 40 MG NG (20:07)
[2021-07-01] MEDS: Acetylcysteine 20% *ORAL/INHALED* 6000 MG/30 ML VIAL 400 MG IH (20:07)
[2021-07-01] MEDS: Gabapentin 100 MG CAP 200 MG NG (20:07)
[2021-07-01] MEDS: Melatonin 3 MG TAB 6 MG PO (22:21)
[2021-07-01] MEDS: VANCOMYCIN/WATER (PEG) 1 GM/200 ML BAG IV (23:09)
[2021-07-02] VITALS (42 sets, daily range): BP systolic 118–182; BP diastolic 66–90; PULSE 57–105; RESP 7–25; TEMP 36.4–37; O2SAT 78–99
[2021-07-02] MEDS: LORazepam 1 MG TAB PO (01:10)
[2021-07-02] MEDS: Gabapentin 300 MG CAP 600 MG PO (02:24)
[2021-07-02] MEDS: Levothyroxine 112 MCG TAB NG (05:06)
[2021-07-02 07:18] LABS: Abs Immature Grans 0.05 10^3/uL (0.0-0.06); Absolute Basophil Count 0.01 10^3/uL (0.0-0.2); Absolute Lymphocyte Count 0.65 10^3/uL (1.2-3.4); Absolute Monocyte Count 0.85 10^3/uL (0.1-0.8); Absolute Neutrophil Count 11.14 10^3/uL (1.2-6.7); Basophils % 0.1; HCT 43.5 % (40.0-50.0); HGB 13.8 g/dL (13.5-17.5); Immature Grans % 0.4; Lymphocytes % 5.1; MCH 30.4 pg (27.0-33.0); MCHC 31.7 % (32.0-36.0); MCV 95.8 fL (80-95); MPV 9.8 fL (8.0-11.0); Monocytes % 6.7; Neutrophils % 87.7; Nucleated RBC 0 %; Platelet Count 310 10^3/uL (130-400); RBC 4.54 10^6/uL (4.36-5.78); RDW 13.4 % (11.8-14.1); RDW-SD 47.7 fL
[2021-07-02 07:38] LABS: ALT 17 U/L (16-63); AST 22 U/L (15-37); Alkaline Phosphatase 96 U/L (46-116); Anion Gap 9.6 mmol/L (3-11); BUN 16 mg/dL (7-18); Bilirubin, Total 0.8 mg/dL (0.2-1.0); CO2 29.4 mmol/L (21.0-32.0); CREATININE 0.9 mg/dL (0.70-1.30); Calcium 9.1 mg/dL (8.5-10.1); Chloride 97 mmol/L (98-107); Glucose 132 mg/dL (74-106); Potassium 3.5 mmol/L (3.5-5.1); Sodium 136 mmol/L (136-145); Total Protein 7.5 g/dL (6.4-8.2)
--- NOTE | 2021-07-02 07:43 | PGE_ITS ---
Assessment and Plan Assessment and plan (1) Pneumonia: Status: Acute (2) Fever: Status: Acute (3) Mucus plugging of bronchi: Status: Acute (4) COPD (chronic obstructive pulmonary disease): Status: Acute (5) Dependence on supplemental oxygen: Status: Chronic (6) Foreign body in airway: Status: Acute Assessment and plan: This is a 76 yo man with COPD, laryngeal cancer with a trach stoma and oxygen dependance who presents with a COPD exacerbation and multifocal pneumonia. There was concern for a foreign body being accidentally pushed into his airway. The patient was not confidently sure that he pulled the trumpet out of his airway. Given the acute desaturation and the patients inability to surely tell me he did remove the foreign object I decided to proceed with bronchoscopy for airway inspection. There was no foreign object se en in his airways, however there was significant secretions consistent with multilobar pneumonia bilaterally. There was also clear mucus plugging. It is possible acutely he developed a negative pressure pulmonary edema when the trumpet was truly obstructing his airway (it was filled with secretion). He improved significantly overnight and is now on his baseline oxygen requirements. 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 Foreign body in airway concern - s/p bronchoscopy, not foreign body seen Multifocal pneumonia, chronic MRSA colonization - recommend giving him Bactrim for 14 days - I sent a tracheal aspirate for culture COPD and mucus plugging - continue bid nebs at home - continue bid NAC inhalation at home - continue 3% saline nebs at home - continue vest therapy bid at home Hypoxic respiratory failure - back to baseline - continue O2 support for sats 88-92% General Date Of Service Date of service: 07/02/21 Time of Service: 08:00 Reason for Consult: Concern for foreign body in airway Subjective Note Note: Chan is doing well today. He is back down on oxygen requirements to his baseline. He says he feels as though he is ready to go home. Exam Const General: no acute distress Nutritional Appearance: well nourished [facility] Head: normocephalic Ears: external ears normal and no periauricular adenopathy General nose exam: nasal mucous membranes and turbinates normal Face and sinus: sinuses nontender Mouth: oropharynx normal and moist mucous membranes Teeth and gingiva: dentition normal Eyes General: appearance normal, both eyes and all related structures Pupils: PERRL Neck Neck: no lymphadenopathy and tracheostomy present Chest Chest: normal inspection of the chest Resp Effort & Inspection: normal respiratory effort Auscultation: clear to auscultation bilaterally, no rales, no rhonchi and no wheezes Cardio Rate: regular rate Rhythm: regular rhythm Heart Sounds: S1 normal, S2 normal and no murmurs Pulses: radial pulses present bilaterally GI Inspection: normal to inspection Palpation: soft Skin General skin exam: no rashes or lesions noted Neuro General: patient alert, patient awake and patient oriented x3 Extrem General: no clubbing, cyanosis or edema Psych Mental Status: mental status grossly normal Affect: normal affect Attitude: cooperative Objective Last Vital Signs Temp 37 C 07/02/21 04:49 Pulse 89 07/02/21 04:47 Resp 22 07/02/21 04:47 BP 161/83 H 07/02/21 04:47 Pulse Ox 91 L 07/02/21 04:49 Laboratory Results - last 24 hr 07/01/21 07/01/21 07/01/21 09:08 09:10 09:10 WBC 21.85 H RBC 4.83 Hgb 15.1 Hct 47.0 MCV 97.3 H MCH 31.3 MCHC 32.1 RDW 13.3 Plt Count 328 MPV 9.7 Immature Gran % 0.4 Neutrophils % 85.7 Lymphocytes % 4.7 Monocytes % 6.4 Eosinophils % 2.2 Basophils % 0.6 Nucleated RBC % 0 Absolute Neutrophils 18.73 H Absolute Lymphocytes 1.03 L Absolute Monocytes 1.40 H Absolute Eosinophils 0.48 Absolute Basophils 0.13 ABG Sample Site ABG pH ABG pCO2 ABG pO2 ABG HCO3 ABG Total CO2 ABG O2 Saturation ABG Base Excess VBG Lactate Oxygen Liter Flow FiO2 Sodium Potassium Chloride Carbon Dioxide Anion Gap BUN Creatinine Estimated GFR/1.73 m2 Glucose Calcium Magnesium Total Bilirubin AST ALT Alkaline Phosphatase Troponin I < 50 NT-Pro-B Natriuret Pep 565 H Total Protein Albumin Urine Color Urine Clarity Urine pH Ur Specific [place] Urine Protein Urine Ketones Urine Blood Urine Nitrite Urine Bilirubin Urine Urobilinogen Ur Leukocyte Esterase Urine RBC Urine WBC Ur Epithelial Cells Urine Crystals Urine Bacteria Urine Casts Urine Mucus Urine Other Ur Culture Indicated? Urine Glucose COVID-19 Source Cancelled SARS-CoV-2 (PCR) Cancelled Influenza Type A (PCR) Cancelled Influenza Type B (PCR) Cancelled RSV (PCR) Cancelled 07/01/21 07/01/21 07/01/21 09:10 09:10 09:16 WBC RBC Hgb Hct MCV MCH MCHC RDW Plt Count MPV Immature Gran % Neutrophils % Lymphocytes % Monocytes % Eosinophils % Basophils % Nucleated RBC % Absolute Neutrophils Absolute Lymphocytes Absolute Monocytes Absolute Eosinophils Absolute Basophils ABG Sample Site ABG pH ABG pCO2 ABG pO2 ABG HCO3 ABG Total CO2 ABG O2 Saturation ABG Base Excess VBG Lactate Oxygen Liter Flow FiO2 Sodium 139 Potassium 3.2 L Chloride 97 L Carbon Dioxide 31.8 Anion Gap 10.2 BUN 18 Creatinine 1.0 Estimated GFR/1.73 m2 >= 60.00 Glucose 118 H Calcium 9.4 Magnesium 2.0 Total Bilirubin 0.7 AST 19 ALT 18 Alkaline Phosphatase 109 Troponin I NT-Pro-B Natriuret Pep Total Protein 8.3 H Albumin 3.4 Urine Color Urine Clarity Urine pH Ur Specific [place] Urine Protein Urine Ketones Urine Blood Urine Nitrite Urine Bilirubin Urine Urobilinogen Ur Leukocyte Esterase Urine RBC Urine WBC Ur Epithelial Cells Urine Crystals Urine Bacteria Urine Casts Urine Mucus Urine Other Ur Culture Indicated? Urine Glucose COVID-19 Source Nasopharynx SARS-CoV-2 (PCR) Negative Influenza Type A (PCR) Negative Influenza Type B (PCR) Negative RSV (PCR) Negative 07/01/21 07/01/21 07/01/21 09:55 10:45 12:00 WBC RBC Hgb Hct MCV MCH MCHC RDW Plt Count MPV Immature Gran % Neutrophils % Lymphocytes % Monocytes % Eosinophils % Basophils % Nucleated RBC % Absolute Neutrophils Absolute Lymphocytes Absolute Monocytes Absolute Eosinophils Absolute Basophils ABG Sample Site ABG pH ABG pCO2 ABG pO2 ABG HCO3 ABG Total CO2 ABG O2 Saturation ABG Base Excess VBG Lactate 1.0 Oxygen Liter Flow FiO2 Sodium Potassium Chloride Carbon Dioxide Anion Gap BUN Creatinine Estimated GFR/1.73 m2 Glucose Calcium Magnesium Total Bilirubin AST ALT Alkaline Phosphatase Troponin I < 50 NT-Pro-B Natriuret Pep Total Protein Albumin Urine Color Yellow Urine Clarity Cloudy Urine pH 7.5 Ur Specific [place] 1.020 Urine Protein 100 H Urine Ketones Negative Urine Blood Trace-intact H Urine Nitrite Negative Urine Bilirubin Negative Urine Urobilinogen 2.0 H Ur Leukocyte Esterase Moderate H Urine RBC 0-2 Urine WBC >50 H Ur Epithelial Cells Few Urine Crystals Negative Urine Bacteria Rare Urine Casts 0-2 Hyaline Urine Mucus Negative Urine Other Moderate Yeast Ur Culture Indicated? Yes Urine Glucose Negative COVID-19 Source SARS-CoV-2 (PCR) Influenza Type A (PCR) Influenza Type B (PCR) RSV (PCR) 07/01/21 07/02/21 07/02/21 12:24 06:20 06:20 WBC 12.70 H D RBC 4.54 Hgb 13.8 Hct 43.5 MCV 95.8 H MCH 30.4 MCHC 31.7 L RDW 13.4 Plt Count 310 MPV 9.8 Immature Gran % 0.4 Neutrophils % 87.7 Lymphocytes % 5.1 Monocytes % 6.7 Eosinophils % 0.0 Basophils % 0.1 Nucleated RBC % 0 Absolute Neutrophils 11.14 H Absolute Lymphocytes 0.65 L Absolute Monocytes 0.85 H Absolute Eosinophils 0.00 Absolute Basophils 0.01 ABG Sample Site Left Radial ABG pH 7.42 ABG pCO2 43 ABG pO2 61 L ABG HCO3 28 H ABG Total CO2 25 ABG O2 Saturation 92 L ABG Base Excess 3 VBG Lactate Oxygen Liter Flow Trach Collar FiO2 98 Sodium 136 Potassium 3.5 Chloride 97 L Carbon Dioxide 29.4 Anion Gap 9.6 BUN 16 Creatinine 0.9 Estimated GFR/1.73 m2 >= 60.00 Glucose 132 H Calcium 9.1 Magnesium Total Bilirubin 0.8 AST 22 ALT 17 Alkaline Phosphatase 96 Troponin I NT-Pro-B Natriuret Pep Total Protein 7.5 Albumin 3.0 L Urine Color Urine Clarity Urine pH Ur Specific [place] Urine Protein Urine Ketones Urine Blood Urine Nitrite Urine Bilirubin Urine Urobilinogen Ur Leukocyte Esterase Urine RBC Urine WBC Ur Epithelial Cells Urine Crystals Urine Bacteria Urine Casts Urine Mucus Urine Other Ur Culture Indicated? Urine Glucose COVID-19 Source SARS-CoV-2 (PCR) Influenza Type A (PCR) Influenza Type B (PCR) RSV (PCR) Results Medications Medications: Active Medications Generic Name Dose Route Start Last Admin Trade Name Freq PRN Reason Stop Dose Admin Acetylcysteine 100 mg 07/02/21 08:30 Acetylcysteine 20% *Oral/Inhaled* 6000 Mg/30 Ml Vial UPD BID MYA Albuterol Sulfate 2.5 mg 07/01/21 14:34 Albuterol 2.5 Mg/3 Ml Inh Soln Vial UPD Q2H PRN PRN Albuterol/Ipratropium 3 ml 07/01/21 20:00 07/01/21 20:07 Albuterol/Ipratropium 3 Ml Upd Vial UPD 3 ml BID MYA Administration Amlodipine Besylate 5 mg 07/02/21 08:30 Amlodipine 5 Mg Tab NG DAILY [facility] Aspirin 81 mg 07/02/21 08:30 Aspirin 81 Mg Chew NG DAILY [facility] Citalopram Hydrobromide 20 mg 07/02/21 08:30 Citalopram 20 Mg Tab NG DAILY [facility] Dimethicone/Zinc Oxide 0 gm 07/01/21 13:46 Madeline Protect Cream 142 Gm Tube TP PRN PRN Enoxaparin Sodium 40 mg 07/01/21 16:00 07/01/21 16:37 Enoxaparin 40 Mg/0.4 Ml Syr SC 40 mg Q24H MYA Administration Finasteride 5 mg 07/02/21 08:30 Finasteride 5 Mg Tab NG DAILY [facility] Gabapentin 200 mg 07/01/21 20:00 07/01/21 20:07 Gabapentin 100 Mg Cap NG 200 mg BID MYA Administration Sodium Chloride 500 mls @ 0 mls/hr 07/01/21 11:53 07/01/21 16:37 Saline 500ml Bag IV 30 mls/hr PRN PRN Administration As Directed Acetaminophen 1,000 mg in 100 mls @ 400 mls/hr 07/01/21 13:51 07/01/21 18:29 Ofirmev IVPB Infused Q6H PRN PRN Infusion Vancomycin/PEG/NADA/Lysine/Water 1 gm in 200 mls @ 200 mls/hr 07/02/21 00:00 07/01/21 23:09 Vancocin Injection IV 200 mls/hr Q12H MYA Administration Protocol Cefepime HCl 1 gm/ Sodium 50 mls @ 100 mls/hr 07/02/21 07:45 Chloride IVPB Q12H [facility] IV Miscellaneous Supplies 1 each 07/01/21 12:00 Iv Access IV DIRECTED [facility] Levothyroxine Sodium 112 mcg 07/02/21 06:00 07/02/21 05:06 Levothyroxine 112 Mcg Tab NG 112 mcg DAILY@0600 MYA Administration Melatonin 6 mg 07/01/21 22:00 07/01/21 22:21 Melatonin 3 Mg Tab PO 6 mg HS MYA Administration Omeprazole 20 mg 07/01/21 20:00 07/01/21 20:06 Omeprazole 20 Mg Capcr NG 20 mg BID@0730,1999 [facility] Administration Pt's Own Alfuzosin 1 each 07/02/21 08:30 10 Mg Tabcr PO DAILY [facility] Polyethylene Glycol 17 gm 07/01/21 15:12 Polyethylene Glycol 3350 17 Gm Packet NG DAILY PRN PRN Prednisone 20 mg/ Prednisone 30 mg 07/02/21 08:30 10 mg NG DAILY [facility] Ropinirole HCl 1 mg 07/02/21 08:30 Ropinirole 1 Mg Tab NG DAILY [facility] Ropinirole HCl 2 mg 07/02/21 22:00 Ropinirole 0.5 Mg Tab PO HS [facility] Rosuvastatin Calcium 40 mg 07/01/21 20:00 07/01/21 20:07 Rosuvastatin 20 Mg Tab NG 40 mg QPM [facility] Administration Sodium Chloride 0 ml 07/01/21 11:53 Normal Saline Flush 10 Ml Syr IVP PRN PRN Sodium Chloride 15 ml 07/02/21 08:30 Sodium Chloride 3% For Inhalation 15 Ml Vial IH BID [facility] Allergies pollen extracts Allergy (Mild, Verified 07/01/21 09:12) Tetracyclines Allergy (Unknown, Verified 07/01/21 09:12) SKIN RASH Labs Result Diagrams: 07/02/21 06:20 07/02/21 06:20 Labs: 07/01/21 16:25 Sputum Sputum Culture - Pending 07/01/21 16:25 Sputum Gram Stain - Pending 07/01/21 10:45 Urine - Reflex from Ua Urine Culture - Pending 07/01/21 10:20 Blood Blood Culture - Pending 07/01/21 09:55 Blood Blood Culture - Pending Laboratory Tests Range/Units 07/01/21 07/01/21 07/01/21 09:08 09:10 09:10 WBC (4.4-10.8) 10^3/uL 21.85 H RBC (4.36-5.78) 10^6/uL 4.83 Hgb (13.5-17.5) g/dL 15.1 Hct (40.0-50.0) % 47.0 MCV (80-95) fL 97.3 H MCH (27.0-33.0) pg 31.3 MCHC (32.0-36.0) % 32.1 RDW (11.8-14.1) % 13.3 Plt Count (130-400) 10^3/uL 328 MPV (8.0-11.0) fL 9.7 Immature Gran % 0.4 Neutrophils % 85.7 Lymphocytes % 4.7 Monocytes % 6.4 Eosinophils % 2.2 Basophils % 0.6 Nucleated RBC % % 0 Absolute Neutrophils (1.2-6.7) 10^3/uL 18.73 H Absolute Lymphocytes (1.2-3.4) 10^3/uL 1.03 L Absolute Monocytes (0.1-0.8) 10^3/uL 1.40 H Absolute Eosinophils (0.0-0.7) 10^3/uL 0.48 Absolute Basophils (0.0-0.2) 10^3/uL 0.13 ABG Sample Site ABG pH (7.35-7.45) ABG pCO2 (35-45) mmHg ABG pO2 (80-105) mmHg ABG HCO3 (22-26) mmol/L ABG Total CO2 (23-27) mmol/L ABG O2 Saturation (95-98) % ABG Base Excess (-2-3) mmol/L VBG Lactate (0.6-1.4) mmol/L Oxygen Liter Flow L FiO2 % Sodium (136-145) mmol/L Potassium (3.5-5.1) mmol/L Chloride (98-107) mmol/L Carbon Dioxide (21.0-32.0) mmol/L Anion Gap (3-11) mmol/L BUN (7-18) mg/dL Creatinine (0.70-1.30) mg/dL Estimated GFR/1.73 m2 (mL/min/1.73m2) Glucose (74-106) mg/dL Calcium (8.5-10.1) mg/dL Magnesium (1.8-2.4) mg/dL Total Bilirubin (0.2-1.0) mg/dL AST (15-37) U/L ALT (16-63) U/L Alkaline Phosphatase (46-116) U/L Troponin I (<or=60) ng/L < 50 NT-Pro-B Natriuret Pep (<300) pg/mL 565 H Total Protein (6.4-8.2) g/dL Albumin (3.4-5.0) g/dL Urine Color (Yellow) Urine Clarity (Clear) Urine pH (5-8) Ur Specific [place] (1.005-1.025) Urine Protein (Negative) mg/dL Urine Ketones (Negative) mg/dL Urine Blood (Negative) Urine Nitrite (Negative) Urine Bilirubin (Negative) Urine Urobilinogen (Up TO 0.2) EU/dL Ur Leukocyte Esterase (Negative) Urine RBC (0-2) HPF Urine WBC (0-5) HPF Ur Epithelial Cells (Negative) HPF Urine Crystals (Negative) HPF Urine Bacteria (Negative) HPF Urine Casts (Negative) LPF Urine Mucus (Negative) Urine Other (Negative) Ur Culture Indicated? Urine Glucose (Negative) mg/dL COVID-19 Source Cancelled SARS-CoV-2 (PCR) Cancelled Influenza Type A (PCR) Cancelled Influenza Type B (PCR) Cancelled RSV (PCR) Cancelled Range/Units 07/01/21 07/01/21 07/01/21 09:10 09:10 09:16 WBC (4.4-10.8) 10^3/uL RBC (4.36-5.78) 10^6/uL Hgb (13.5-17.5) g/dL Hct (40.0-50.0) % MCV (80-95) fL MCH (27.0-33.0) pg MCHC (32.0-36.0) % RDW (11.8-14.1) % Plt Count (130-400) 10^3/uL MPV (8.0-11.0) fL Immature Gran % Neutrophils % Lymphocytes % Monocytes % Eosinophils % Basophils % Nucleated RBC % % Absolute Neutrophils (1.2-6.7) 10^3/uL Absolute Lymphocytes (1.2-3.4) 10^3/uL Absolute Monocytes (0.1-0.8) 10^3/uL Absolute Eosinophils (0.0-0.7) 10^3/uL Absolute Basophils (0.0-0.2) 10^3/uL ABG Sample Site ABG pH (7.35-7.45) ABG pCO2 (35-45) mmHg ABG pO2 (80-105) mmHg ABG HCO3 (22-26) mmol/L ABG Total CO2 (23-27) mmol/L ABG O2 Saturation (95-98) % ABG Base Excess (-2-3) mmol/L VBG Lactate (0.6-1.4) mmol/L Oxygen Liter Flow L FiO2 % Sodium (136-145) mmol/L 139 Potassium (3.5-5.1) mmol/L 3.2 L Chloride (98-107) mmol/L 97 L Carbon Dioxide (21.0-32.0) mmol/L 31.8 Anion Gap (3-11) mmol/L 10.2 BUN (7-18) mg/dL 18 Creatinine (0.70-1.30) mg/dL 1.0 Estimated GFR/1.73 m2 (mL/min/1.73m2) >= 60.00 Glucose (74-106) mg/dL 118 H Calcium (8.5-10.1) mg/dL 9.4 Magnesium (1.8-2.4) mg/dL 2.0 Total Bilirubin (0.2-1.0) mg/dL 0.7 AST (15-37) U/L 19 ALT (16-63) U/L 18 Alkaline Phosphatase (46-116) U/L 109 Troponin I (<or=60) ng/L NT-Pro-B Natriuret Pep (<300) pg/mL Total Protein (6.4-8.2) g/dL 8.3 H Albumin (3.4-5.0) g/dL 3.4 Urine Color (Yellow) Urine Clarity (Clear) Urine pH (5-8) Ur Specific [place] (1.005-1.025) Urine Protein (Negative) mg/dL Urine Ketones (Negative) mg/dL Urine Blood (Negative) Urine Nitrite (Negative) Urine Bilirubin (Negative) Urine Urobilinogen (Up TO 0.2) EU/dL Ur Leukocyte Esterase (Negative) Urine RBC (0-2) HPF Urine WBC (0-5) HPF Ur Epithelial Cells (Negative) HPF Urine Crystals (Negative) HPF Urine Bacteria (Negative) HPF Urine Casts (Negative) LPF Urine Mucus (Negative) Urine Other (Negative) Ur Culture Indicated? Urine Glucose (Negative) mg/dL COVID-19 Source Nasopharynx SARS-CoV-2 (PCR) Negative Influenza Type A (PCR) Negative Influenza Type B (PCR) Negative RSV (PCR) Negative Range/Units 07/01/21 07/01/21 07/01/21 09:55 10:45 12:00 WBC (4.4-10.8) 10^3/uL RBC (4.36-5.78) 10^6/uL Hgb (13.5-17.5) g/dL Hct (40.0-50.0) % MCV (80-95) fL MCH (27.0-33.0) pg MCHC (32.0-36.0) % RDW (11.8-14.1) % Plt Count (130-400) 10^3/uL MPV (8.0-11.0) fL Immature Gran % Neutrophils % Lymphocytes % Monocytes % Eosinophils % Basophils % Nucleated RBC % % Absolute Neutrophils (1.2-6.7) 10^3/uL Absolute Lymphocytes (1.2-3.4) 10^3/uL Absolute Monocytes (0.1-0.8) 10^3/uL Absolute Eosinophils (0.0-0.7) 10^3/uL Absolute Basophils (0.0-0.2) 10^3/uL ABG Sample Site ABG pH (7.35-7.45) ABG pCO2 (35-45) mmHg ABG pO2 (80-105) mmHg ABG HCO3 (22-26) mmol/L ABG Total CO2 (23-27) mmol/L ABG O2 Saturation (95-98) % ABG Base Excess (-2-3) mmol/L VBG Lactate (0.6-1.4) mmol/L 1.0 Oxygen Liter Flow L FiO2 % Sodium (136-145) mmol/L Potassium (3.5-5.1) mmol/L Chloride (98-107) mmol/L Carbon Dioxide (21.0-32.0) mmol/L Anion Gap (3-11) mmol/L BUN (7-18) mg/dL Creatinine (0.70-1.30) mg/dL Estimated GFR/1.73 m2 (mL/min/1.73m2) Glucose (74-106) mg/dL Calcium (8.5-10.1) mg/dL Magnesium (1.8-2.4) mg/dL Total Bilirubin (0.2-1.0) mg/dL AST (15-37) U/L ALT (16-63) U/L Alkaline Phosphatase (46-116) U/L Troponin I (<or=60) ng/L < 50 NT-Pro-B Natriuret Pep (<300) pg/mL Total Protein (6.4-8.2) g/dL Albumin (3.4-5.0) g/dL Urine Color (Yellow) Yellow Urine Clarity (Clear) Cloudy Urine pH (5-8) 7.5 Ur Specific [place] (1.005-1.025) 1.020 Urine Protein (Negative) mg/dL 100 H Urine Ketones (Negative) mg/dL Negative Urine Blood (Negative) Trace-intact H Urine Nitrite (Negative) Negative Urine Bilirubin (Negative) Negative Urine Urobilinogen (Up TO 0.2) EU/dL 2.0 H Ur Leukocyte Esterase (Negative) Moderate H Urine RBC (0-2) HPF 0-2 Urine WBC (0-5) HPF >50 H Ur Epithelial Cells (Negative) HPF Few Urine Crystals (Negative) HPF Negative Urine Bacteria (Negative) HPF Rare Urine Casts (Negative) LPF 0-2 Hyaline Urine Mucus (Negative) Negative Urine Other (Negative) Moderate Yeast Ur Culture Indicated? Yes Urine Glucose (Negative) mg/dL Negative COVID-19 Source SARS-CoV-2 (PCR) Influenza Type A (PCR) Influenza Type B (PCR) RSV (PCR) Range/Units 07/01/21 07/02/21 07/02/21 12:24 06:20 06:20 WBC (4.4-10.8) 10^3/uL 12.70 H D RBC (4.36-5.78) 10^6/uL 4.54 Hgb (13.5-17.5) g/dL 13.8 Hct (40.0-50.0) % 43.5 MCV (80-95) fL 95.8 H MCH (27.0-33.0) pg 30.4 MCHC (32.0-36.0) % 31.7 L RDW (11.8-14.1) % 13.4 Plt Count (130-400) 10^3/uL 310 MPV (8.0-11.0) fL 9.8 Immature Gran % 0.4 Neutrophils % 87.7 Lymphocytes % 5.1 Monocytes % 6.7 Eosinophils % 0.0 Basophils % 0.1 Nucleated RBC % % 0 Absolute Neutrophils (1.2-6.7) 10^3/uL 11.14 H Absolute Lymphocytes (1.2-3.4) 10^3/uL 0.65 L Absolute Monocytes (0.1-0.8) 10^3/uL 0.85 H Absolute Eosinophils (0.0-0.7) 10^3/uL 0.00 Absolute Basophils (0.0-0.2) 10^3/uL 0.01 ABG Sample Site Left Radial ABG pH (7.35-7.45) 7.42 ABG pCO2 (35-45) mmHg 43 ABG pO2 (80-105) mmHg 61 L ABG HCO3 (22-26) mmol/L 28 H ABG Total CO2 (23-27) mmol/L 25 ABG O2 Saturation (95-98) % 92 L ABG Base Excess (-2-3) mmol/L 3 VBG Lactate (0.6-1.4) mmol/L Oxygen Liter Flow L Trach Collar FiO2 % 98 Sodium (136-145) mmol/L 136 Potassium (3.5-5.1) mmol/L 3.5 Chloride (98-107) mmol/L 97 L Carbon Dioxide (21.0-32.0) mmol/L 29.4 Anion Gap (3-11) mmol/L 9.6 BUN (7-18) mg/dL 16 Creatinine (0.70-1.30) mg/dL 0.9 Estimated GFR/1.73 m2 (mL/min/1.73m2) >= 60.00 Glucose (74-106) mg/dL 132 H Calcium (8.5-10.1) mg/dL 9.1 Magnesium (1.8-2.4) mg/dL Total Bilirubin (0.2-1.0) mg/dL 0.8 AST (15-37) U/L 22 ALT (16-63) U/L 17 Alkaline Phosphatase (46-116) U/L 96 Troponin I (<or=60) ng/L NT-Pro-B Natriuret Pep (<300) pg/mL Total Protein (6.4-8.2) g/dL 7.5 Albumin (3.4-5.0) g/dL 3.0 L Urine Color (Yellow) Urine Clarity (Clear) Urine pH (5-8) Ur Specific [place] (1.005-1.025) Urine Protein (Negative) mg/dL Urine Ketones (Negative) mg/dL Urine Blood (Negative) Urine Nitrite (Negative) Urine Bilirubin (Negative) Urine Urobilinogen (Up TO 0.2) EU/dL Ur Leukocyte Esterase (Negative) Urine RBC (0-2) HPF Urine WBC (0-5) HPF Ur Epithelial Cells (Negative) HPF Urine Crystals (Negative) HPF Urine Bacteria (Negative) HPF Urine Casts (Negative) LPF Urine Mucus (Negative) Urine Other (Negative) Ur Culture Indicated? Urine Glucose (Negative) mg/dL COVID-19 Source SARS-CoV-2 (PCR) Influenza Type A (PCR) Influenza Type B (PCR) RSV (PCR)
--- NOTE | 2021-07-02 08:26 | INITIAL_ITS ---
- If Service Date Differs Date of service: 07/02/21 Time of Service: 08:26 Care Management Initial Assess REASON FOR HOSPITALIZATION:: Hypoxia PAST MEDICAL HISTORY/PAST SURGICAL HISTORY:: All Active Problems (Updated 07/01/21 @ 16:09 by Maddie Sevilla MD). Foreign body in airway (Acute). Pneumonia (Acute). Fever (Acute). Shortness of breath (Acute). Mucus plugging of bronchi (Acute). Left arm numbness (Acute). Complication of feeding tube (Acute). Peripheral neuropathy (Acute 02/21/15). MRSA pneumonia (Acute). PAOD (peripheral arterial occlusive disease) (Acute). COPD (chronic obstructive pulmonary disease) (Acute). G tube feedings (Acute). changed 10/04 18F 3cm. 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 Compression fracture of thoracolumbar vertebra (Acute). Dependence on supplemental oxygen (Chronic). Medical History . 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 Anemia. Anxiety. Anxiety. Aphonia. post total l[place] [facility] [place]. Blockage of feeding tube. 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/17). CAD (coronary artery disease). Complication of feeding tube. Conjunctivitis, chronic. COPD (chronic obstructive pulmonary disease). Cortical cataract of right eye. Depression. Depressive disorder (11/18/12). Dyspnea on exertion. Feeding tube dysfunction. Hematoma following procedure. Herpes zoster. History of alcoholism. sober x 25yrs. History of tobacco use. Hyperlipemia. Hyperlipidemia (11/18/12). Hypertension. Hypertension (11/18/12). Hypothyroidism. Hypothyroidism (11/18/12). Impingement syndrome, shoulder, left (10/10/16). : PT sugg. imaging: discuss at fup. Left corneal scar with opacity. Neurotrophic cornea of left eye. Nuclear sclerotic cataract of right eye. Post herpetic neuralgia. Posterior subcapsular age- related cataract, right eye. Primary malignant neoplasm of oropharynx. ; yearly fup in Feb (last ). [facility] SX: 2007. ROR: 1999 + 2007. Pulmonary nodule, right (05/30/15). on chest CT : stable. Restless leg syndrome (02/21/15). Sessile colonic polyp. 12/22/16-SESSILE SERRATED ADENOMA. Tobacco use. Surgical History . Colonoscopy - MAC (12/22/16). EGD - MAC (07/06/17). 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 Sin-mullins button placed by Dr Elia Mcdonald [facility]. History of esophagogastroduodenoscopy (EGD) (~08/10/19). Daron Casper APRN @ [facility]: hiatal hernia, GERD, Reyes's esophagitis, neuromuscular dysfunction. History of laryngectomy. History of radical laryngectomy. History of tarsorrhaphy. PROCEDURES. RT/LEFT HEART CARD CATH. COMPLETE LARYNGECTOMY. Esophagoplasty. S/P AAA (abdominal aortic aneurysm) repair. Status post cardiac catheterization. Status post cataract extraction and insertion of intraocular lens of left eye (04/30/12). Status post cataract extraction and insertion of intraocular lens of right eye (07/12/18). Status post laryngectomy PREVIOUS FUNCTIONAL STATUS/SOCIAL/FAMILY SUPPORTS:: Pineda lives in [place] with Kiara, his pt skilled and caregiver. 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 Pineda states he is independent with bathing and dressing himself and has the support of Kiara when needed. His nephew, Harsha, is also a source of support for him. CURRENT FUNCTIONAL STATUS:: Chan was discharged before was able to meet with him. He will return to his home with a resumption of services ( he has [facility], [facility]) and will transport with his caregiver. ADVANCE DIRECTIVES:: On file. Nephew Marino Geri MCGEE Has patient been provided with info about the portal/API?: Yes Did the patient sign up for the portal?: Yes (previously) CODE STATUS:: Full Code INSURANCE COVERAGE / FINANCIAL ISSUES:: Medicare. Medicaid (retirement, [employer] [place]). [place] CURRENT HOME/COMMUNITY SERVICES/EQUIPMENT:: Medicare. [place] PRIMARY CARE PHYSICIAN:: Teresa Prasad was his PCP. She has retired but he will remain with [facility]. POTENTIAL DISCHARGE NEEDS:: Follow up with PCP and plan of care PATIENT/FAMILY EDUCATION NEEDS:: Review of dicharge instructions, medications, follow up plan, activity, Ask Me Three TRANSPORTATION:: via private vehicle with family PLAN:: Chan will be discharged home witha resumption of services through [facility]. Chan has [facility]. He will follow up with his commmunity providers and plan of care as prescribed and transport with family.
[2021-07-02] MEDS: Albuterol/Ipratropium 3 ML UPD VIAL UPD (08:46)
[2021-07-02] MEDS: Finasteride 5 MG TAB NG (08:49)
[2021-07-02] MEDS: predniSONE 20 MG, predniSONE 10 MG 30 MG NG (08:49)
[2021-07-02] MEDS: Normal Saline Flush 10 ML SYR IVP (08:49)
[2021-07-02] MEDS: Gabapentin 100 MG CAP 200 MG NG (08:49)
[2021-07-02] MEDS: Omeprazole 20 MG CAPCR NG (08:49)
[2021-07-02] MEDS: amLODIPine 5 MG TAB NG (08:49)
[2021-07-02] MEDS: Citalopram 20 MG TAB NG (08:50)
[2021-07-02] MEDS: Aspirin 81 MG CHEW NG (08:50)
[2021-07-02] MEDS: rOPINIRole 1 MG TAB NG (08:50)
--- NOTE | 2021-07-02 10:02 | W.PM.DS.N ---
Date of service: 07/02/21 Time of Service: 10:02 DS: Diagnosis Discharge Diagnosis (1) Pneumonia: Status: Acute (2) Mucus plugging of bronchi: Status: Acute (3) Laryngeal cancer: Status: None (4) COPD (chronic obstructive pulmonary disease): Status: Acute (5) Dependence on supplemental oxygen: Status: Chronic Discharge Plan Disposition Patient Disposition: HOME Condition: Fair Discharge Details Reason For Visit: Hypoxia, mucous plug of tracheostomy Admit Date/Time: 07/01/21 11:53 Admit Provider: Fabian Levine Attending Provider: Fabian Levine Primary Care Provider: Unknown,Unknown Hospital Course Hospital Course: This is a 76 yo male with a significant, extensive PMH of COPD, laryngeal cancer, s/p laryngectomy, CAD, HLD, HTN, hypothyroidism. He presented to the ED with shortness of air. Unknown length of time of increase SOA. He stated home O2 sats were in the 40's. He presented with O2 tubing that was not adequate for delivering the amount of O2 he required so it was changed out. With 10L O2 per [place] sats improved into the 90's. No CP, palpitations. WBC count 21.85. Hgb 15.K 3.2. LFTs normal. CT chest showed no evidence of pulmonary embolism. Intact aortic stents. 2. Bilateral infiltrates, greatest in the right upper lobe. Cefepime and Vancomycin initiated. Admitted to the ICU and pulmonary medicine consulted. There was concerned that the trumpet in his tracheotomy was dislodged further into the trachea. Dr. Sevilla, Pulmonary/Adjunct Instructor Of Women'S Studies consulted. She performed a bronchoscopy and found that the trumpet was in position but had a thick mucous plug that was removed. His respiratory status improved and he felt he was back to his baseline. 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 He was discharged on a 7 day course of Bactrim. PCP at [facility] follow up per their recommendation. Home Meds and New Rx's Prescriptions: New sulfamethoxazole-trimethoprim 800-160 mg tablet 1 tab PO BID Qty: 14 RF: 0 prednisone 20 mg tablet 30 mg PO DAILY Qty: 6 RF: 0 Continued omeprazole 20 mg capsule,delayed release(DR/EC) 20 mg feeding tube BID Qty: 90 RF: 4 acetylcysteine 100 mg/mL (10 %) solution 4 ml inhalation Q4H RF: 0 amlodipine 5 mg tablet 5 mg PO DAILY RF: 0 ferrous sulfate 300 mg (60 mg iron)/5 mL liquid 300 mg PO DAILY RF: 0 gabapentin 100 mg capsule 200 mg PO BID RF: 0 levothyroxine 112 mcg/mL solution 112 mcg PO DAILY RF: 0 ropinirole 1 mg tablet 1 mg PO BID RF: 0 polyethylene glycol 3350 [Miralax] 17 gram/dose powder 17 g PO PRN RF: 0 Adult Probiotic 3 billion cell capsule 3,000 mmu cells PO BID RF: 0 alfuzosin [Uroxatral] 10 mg tablet extended release 24 hr 10 mg PO DAILY Qty: 90 RF: 3 finasteride 5 mg tablet 5 mg PO DAILY Qty: 90 RF: 3 rosuvastatin 40 mg tablet 40 mg feeding tube HS Qty: 90 RF: 4 citalopram 20 mg tablet 20 mg PO DAILY Qty: 90 RF: 4 ipratropium-albuterol 0.5 mg-3 mg(2.5 mg base)/3 mL solution for nebulization 3 ml IN QID PRN (Reason: shortness of breath or wheezing) Qty: 90 RF: 4 nystatin 100,000 unit/gram powder 1 applic topical BID PRN (Reason: fungal infections ) Qty: 60 RF: 12 melatonin 3 MG tablet 6 mg PO HS RF: 0 aspirin 81 mg Tablet,Chewable 81 mg feeding tube DAILY RF: 0 sodium chloride 3 % solution for nebulization 4 ml INHALATION BID RF: 0 prednisone 20 mg tablet 40 mg PO DAILY Qty: 10 RF: 0 Discharge Instructions Activity:: Activity as Tolerated Equipment/Supplies:: No Equipment Needed Diet:: resume home diet Discharge Orders Discharge Orders: Discharge Order (Routine); Ordered 07/02/21 Ordered By: Fabian Levine Discharge Data Discharge Date/Time-TO BE ENTERED AT DEPARTURE: 07/02/21 12:30 DS: Summary Time Spent with Patient providing and/or coordinating discharge services: Less than 30 minutes Status at Discharge Functional status at discharge: independent ambulation Overall status at discharge: patient is back to baseline Mental Status: mental status grossly normal Speech and Movement: speech and movement normal Mood: congruent mood Affect: normal affect Exam Const General: no acute distress Nutritional Appearance: well nourished [facility] Head: normocephalic Ears: external ears normal Mouth: oropharynx normal and moist mucous membranes Teeth and gingiva: dentition normal Eyes General: appearance normal, both eyes and all related structures Pupils: PERRL Neck Neck: no lymphadenopathy and tracheostomy present Chest Chest: normal inspection of the chest Resp Effort & Inspection: normal respiratory effort Auscultation: clear to auscultation bilaterally, no rales, no rhonchi and no wheezes Cardio Rate: regular rate Rhythm: regular rhythm Heart Sounds: S1 normal, S2 normal and no murmurs Pulses: radial pulses present bilaterally GI Inspection: normal to inspection Palpation: soft and nontender Auscultation: normal bowel sounds Skin General skin exam: no rashes or lesions noted Neuro General: patient alert, patient awake and patient oriented x3 Extrem General: no clubbing, cyanosis or edema Psych Mental Status: mental status grossly normal Speech and Movement: speech and movement normal Mood: congruent mood Affect: normal affect Attitude: cooperative DS: Data Vitals/I&O Vitals and I&O: Vital Signs Temperature 36.4 C L 07/02/21 07:35 Temperature Source Temporal Artery Scan 07/02/21 07:35 Pulse 89 07/02/21 04:47 Pulse 92 H 07/02/21 04:47 Respiratory Rate 20 07/02/21 08:46 Respiratory Effort 07/02/21 07:35 Respiratory Depth Normal 07/02/21 07:35 Respiratory Pattern Normal 07/02/21 07:35 Blood Pressure 161/83 H 07/02/21 04:47 Blood Pressure Mean 98 07/02/21 04:47 Blood Pressure Position Supine 07/02/21 04:49 Pulse Oximetry 95 07/02/21 08:52 Oxygen Delivery Method Trach Collar 07/02/21 08:52 Oxygen Flow Rate 8 07/02/21 08:52 Fraction of Inspired Oxygen (FIO2) 35 07/02/21 08:52 Pain Level 5 07/02/21 07:35 Intake & Output 07/01/21 07/01/21 07/02/21 11:59 23:59 11:59 Intake Total 2900 / 2900 401 / 401 Output Total 700 / 700 275 / 275 Balance 2200 / 2200 126 / 126 Weight 69.1 kg 69.1 kg 70.2 kg Intake: IV 2900 / 2900 200 / 200 Intake, Tube Feeding Amount 201 / 201 Output: Urine 700 / 700 275 / 275 Output, Residual 0 / 0 0 / 0 Other: Urine Color Yellow Pale Yellow Urine Appearance Clear Clear Urine Odor Normal Normal Comment uses urinal independenty Pt denies burning or UTI symptoms despite presence of infection in urine. Voiding Methods Urinal Data Completed and Pending Labs on day of discharge: Labs from last 24 hours 07/02/21 07/02/21 07/01/21 06:20 06:20 12:24 WBC 12.70 H D RBC 4.54 Hgb 13.8 Hct 43.5 MCV 95.8 H MCH 30.4 MCHC 31.7 L RDW 13.4 Plt Count 310 MPV 9.8 Immature Gran % 0.4 Neutrophils % 87.7 Lymphocytes % 5.1 Monocytes % 6.7 Eosinophils % 0.0 Basophils % 0.1 Nucleated RBC % 0 Absolute Neutrophils 11.14 H Absolute Lymphocytes 0.65 L Absolute Monocytes 0.85 H Absolute Eosinophils 0.00 Absolute Basophils 0.01 ABG Sample Site Left Radial ABG pH 7.42 ABG pCO2 43 ABG pO2 61 L ABG HCO3 28 H ABG Total CO2 25 ABG O2 Saturation 92 L ABG Base Excess 3 VBG Lactate Oxygen Liter Flow Trach Collar FiO2 98 Sodium 136 Potassium 3.5 Chloride 97 L Carbon Dioxide 29.4 Anion Gap 9.6 BUN 16 Creatinine 0.9 Estimated GFR/1.73 m2 >= 60.00 Glucose 132 H Calcium 9.1 Total Bilirubin 0.8 AST 22 ALT 17 Alkaline Phosphatase 96 Troponin I Total Protein 7.5 Albumin 3.0 L Urine Color Urine Clarity Urine pH Ur Specific [place] Urine Protein Urine Ketones Urine Blood Urine Nitrite Urine Bilirubin Urine Urobilinogen Ur Leukocyte Esterase Urine RBC Urine WBC Ur Epithelial Cells Urine Crystals Urine Bacteria Urine Casts Urine Mucus Urine Other Ur Culture Indicated? Urine Glucose SARS-CoV-2 (PCR) Influenza Type A (PCR) Influenza Type B (PCR) RSV (PCR) 07/01/21 07/01/21 07/01/21 12:00 10:45 09:55 WBC RBC Hgb Hct MCV MCH MCHC RDW Plt Count MPV Immature Gran % Neutrophils % Lymphocytes % Monocytes % Eosinophils % Basophils % Nucleated RBC % Absolute Neutrophils Absolute Lymphocytes Absolute Monocytes Absolute Eosinophils Absolute Basophils ABG Sample Site ABG pH ABG pCO2 ABG pO2 ABG HCO3 ABG Total CO2 ABG O2 Saturation ABG Base Excess VBG Lactate 1.0 Oxygen Liter Flow FiO2 Sodium Potassium Chloride Carbon Dioxide Anion Gap BUN Creatinine Estimated GFR/1.73 m2 Glucose Calcium Total Bilirubin AST ALT Alkaline Phosphatase Troponin I < 50 Total Protein Albumin Urine Color Yellow Urine Clarity Cloudy Urine pH 7.5 Ur Specific [place] 1.020 Urine Protein 100 H Urine Ketones Negative Urine Blood Trace-intact H Urine Nitrite Negative Urine Bilirubin Negative Urine Urobilinogen 2.0 H Ur Leukocyte Esterase Moderate H Urine RBC 0-2 Urine WBC >50 H Ur Epithelial Cells Few Urine Crystals Negative Urine Bacteria Rare Urine Casts 0-2 Hyaline Urine Mucus Negative Urine Other Moderate Yeast Ur Culture Indicated? Yes Urine Glucose Negative SARS-CoV-2 (PCR) Influenza Type A (PCR) Influenza Type B (PCR) RSV (PCR) 07/01/21 09:10 WBC RBC Hgb Hct MCV MCH MCHC RDW Plt Count MPV Immature Gran % Neutrophils % Lymphocytes % Monocytes % Eosinophils % Basophils % Nucleated RBC % Absolute Neutrophils Absolute Lymphocytes Absolute Monocytes Absolute Eosinophils Absolute Basophils ABG Sample Site ABG pH ABG pCO2 ABG pO2 ABG HCO3 ABG Total CO2 ABG O2 Saturation ABG Base Excess VBG Lactate Oxygen Liter Flow FiO2 Sodium Potassium Chloride Carbon Dioxide Anion Gap BUN Creatinine Estimated GFR/1.73 m2 Glucose Calcium Total Bilirubin AST ALT Alkaline Phosphatase Troponin I Total Protein Albumin Urine Color Urine Clarity Urine pH Ur Specific [place] Urine Protein Urine Ketones Urine Blood Urine Nitrite Urine Bilirubin Urine Urobilinogen Ur Leukocyte Esterase Urine RBC Urine WBC Ur Epithelial Cells Urine Crystals Urine Bacteria Urine Casts Urine Mucus Urine Other Ur Culture Indicated? Urine Glucose SARS-CoV-2 (PCR) Negative Influenza Type A (PCR) Negative Influenza Type B (PCR) Negative RSV (PCR) Negative 07/01/21 16:25 Sputum Sputum Culture - Pending 07/01/21 16:25 Sputum Gram Stain - Pending 07/01/21 10:45 Urine - Reflex from Urine Culture - Pending 07/01/21 10:20 Blood Blood Culture - Pending 07/01/21 09:55 Blood Blood Culture - Pending Preliminary micro results at discharge 07/01/21 16:25 Sputum Culture - Pending Sputum Gram Stain - Pending 07/01/21 10:45 Urine Culture - Pending Urine - Reflex from Ua 07/01/21 10:20 Blood Culture - Pending Blood 07/01/21 09:55 Blood Culture - Pending Blood PFSH All Active Problems Foreign body in airway (Acute) Pneumonia (Acute) Fever (Acute) Shortness of breath (Acute) Mucus plugging of bronchi (Acute) Left arm numbness (Acute) Complication of feeding tube (Acute) Peripheral neuropathy (Acute 02/21/15) MRSA pneumonia (Acute) PAOD (peripheral arterial occlusive disease) (Acute) COPD (chronic obstructive pulmonary disease) (Acute) G tube feedings (Acute) changed 10/04 18F 3cm 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 Anemia Anxiety Anxiety Aphonia post total laryngectomy [facility] [place] Blockage of feeding tube 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/17) CAD (coronary artery disease) Complication of feeding tube Conjunctivitis, chronic COPD (chronic obstructive pulmonary disease) Cortical cataract of right eye Depression Depressive disorder (11/18/12) Dyspnea on exertion Feeding tube dysfunction Hematoma following procedure Herpes zoster History of alcoholism sober x 25yrs History of tobacco use Hyperlipemia Hyperlipidemia (11/18/12) Hypertension Hypertension (11/18/12) Hypothyroidism Hypothyroidism (11/18/12) Impingement syndrome, shoulder, left (10/10/16) -2016: PT sugg. 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) Sin-mullins button placed by Dr Elia Mcdonlad, [facility] History of esophagogastroduodenoscopy (EGD) (~08/10/19) Daron Casper APRN @ [facility]: hiatal hernia, GERD, Reyes's esophagitis, neuromuscular dysfunction History of laryngectomy History of radical laryngectomy History of tarsorrhaphy PROCEDURES RT/LEFT HEART CARD CATH COMPLETE LARYNGECTOMY Esophagoplasty S/P AAA (abdominal aortic aneurysm) repair Status post cardiac catheterization Status post cataract extraction and insertion of intraocular lens of left eye (04/30/12) Status post cataract extraction and insertion of intraocular lens of right eye (07/12/18) Status post laryngectomy Social History Smoking/Tobacco Use Status: Former Tobacco Use Tobacco: How many years used: 30 Smoking risk assessment performed?: Yes Alcohol Intake: never Drug use: Never Substance use type: does not use Current gender identity: male Do you feel safe at home: Yes Do you feel safe in your relationship?: Yes
[2021-07-02] MEDS: CEFEPIME 1 GM in Normal Saline 50 ML IVPB (10:14)
--- NOTE | 2021-07-02 14:47 | PDOC.CMDIS ---
- If Service Date Differs Date of service: 07/02/21 Time of Service: 14:47 LACE Index Scoring Tool - Questions: Length of Stay (in days): 1 Acuity (Admit via E.D.?): Yes Comorbidities: Chronic Pulmonary Disease, Any Tumor E.D. Visits: 8 - Answers: Total Score: 13 Risk of Readmission: High Risk Care Management Discharge Reason for Hospitalization: Hypoxia Discharge Plan: Chan will be discharged home with a resumption of services through [facility]. Chan has [facility]. He will follow up with his commmunity providers and plan of care as prescribed and transport with his caregiver. Patient/Family Education Needs: Review of dicharge instructions, medications, follow up plan, activity, Ask Me Three Services Needed at Discharge: Home Health Care Services
== END 2021-07-02 12:30 | disposition home or self-care (01) | DRG 205 ==
LOC: ER 12:09 → ICU 13:29
PROVIDERS: Admitting Provider Family Medicine; Emergency Provider Student in an Organized Health Care Education/Training Program; Visit Provider Family Medicine
DX: T17.590A Other foreign object in bronchus causing asphyxiation, initial encounter (principal); J18.9 Pneumonia, unspecified organism; J96.91 Respiratory failure, unspecified with hypoxia; J44.0 Chronic obstructive pulmonary disease with (acute) lower respiratory infection; J44.1 Chronic obstructive pulmonary disease with (acute) exacerbation; Z99.81 Dependence on supplemental oxygen; Z90.02 Acquired absence of larynx; Z93.0 Tracheostomy status; Z93.1 Gastrostomy status; I73.9 Peripheral vascular disease, unspecified; G62.1 Alcoholic polyneuropathy; I25.10 Atherosclerotic heart disease of native coronary artery without angina pectoris; N40.1 Benign prostatic hyperplasia with lower urinary tract symptoms; F32.9 Major depressive disorder, single episode, unspecified; F10.21 Alcohol dependence, in remission; I10 Essential (primary) hypertension; E78.5 Hyperlipidemia, unspecified; G25.81 Restless legs syndrome; Z87.891 Personal history of nicotine dependence; Z22.322 Carrier or suspected carrier of Methicillin resistant Staphylococcus aureus; E03.9 Hypothyroidism, unspecified
CPT/HCPCS: 31645; 36415; 71275; 74177; 80053; 82805; 87040; 87637; 93005; 94640; 96361; 96365; 96366; 96368; 96375; 99285; J1650; 36600; 71045; 81003; 81015; 83605; 83735; 83880; 84484; 85025; 87070; 87086; 87205; 93010; 99223; 99239; J0131; J2543; J2930; J3475; J3480; J3490; J7512; J7608; J7620

== ENCOUNTER 2021-08-03 08:01 | Inpatient (IN) | payer MEDICARE, MEDICAID, SELFPAY ==
[2021-08-03] VITALS (131 sets, daily range): BP systolic 107–227; BP diastolic 55–163; PULSE 79–124; RESP 4–38; TEMP 36.8–37.3; O2SAT 81–99
--- NOTE | 2021-08-03 08:30 | RT.EKG_ITS ---
APPROVED REPORT Exam: Resting ECG Reason for Exam: L sided neck pain Patient Location: E HR:95 bpm ECG Measurements Heart Rate 95 AXIS AZ 211 P 42 QRSd 153 QRS 78 QT 407 T 6 QTc 512 Conclusion Sinus rhythm...normal P axis, V-rate 60- 99 Borderline prolonged AZ interval...AZ >207, V-rate 91-120 Left atrial enlargement...P, P'>60mS, <-0.15mV V1 Right bundle branch block...QRSd>120, terminal axis(90,270) sinus rhythm, normal axi, RBBB
--- NOTE | 2021-08-03 08:30 | DI.RAD_ITS ---
Exam(s) XR PORTABLE CHEST AP EXAM: XR PORTABLE CHEST AP CLINICAL HISTORY: L sided neck pain. TECHNIQUE: 2D digital imaging was performed. COMPARISON: CR XR PORTABLE CHEST AP from 07/01/2021 FINDINGS: There is cardiomegaly again noted and tortuous descending thoracic aorta and there is an aortic stent graft at and below the level of the midthoracic aorta. No change in the appearance of the mediastinum. There has been improvement in the bilateral pulmonary infiltrates and interstitial disease. No pleur al effusions. No airspace pulmonary edema at this time. There is no pneumothorax. Surgical clips i n the neck are again noted. IMPRESSION: Improved appearance of the lung lujan when compared to 07/01/2021. DATA REPOSITORY: RADIATION DOSE DELIVERED: All CT scans at this facility use at least one of these dose optimization techniques: automated exposure control; mA and/or kV adjustment per patient size (includes targeted e xams where dose is matched to clinical indication); or iterative reconstruction.
--- NOTE | 2021-08-03 08:37 | ED.GENADUL_ITS ---
Discharge Plan Disposition Patient Disposition: [facility] INPATIENT Condition: Stable Discharge Details Clinical Impression: Hypoxemia, URI (upper respiratory infection), Neck pain on left side, Pneumonia Admit Date/Time: 08/03/21 20:47 Admit Provider: Sydney George Attending Provider: Sydney George Primary Care Provider: Unknown,Unknown ED Provider: Fabian Vazquez Discharge Data Discharge Date/Time-TO BE ENTERED AT DEPARTURE: 08/03/21 23:43 Medical Decision Making <MARC Lucero - Last Filed: 08/04/21 08:08> This is a 76-year-old gentleman with a complicated past medical history presen ting for left-sided neck pain and hypoxemia. His significant other was allowed back to obtain a more thorough HPI. Given his atypical neck pain, I would like to initiate a cardiac work-up. I would also like to obtain CTA of the neck and chest once I see his renal function. Patient will be given 2 mg IV morphine. Differential includes but not excluded to carotid dissection, neck abscess, complication secondary to laryngeal stoma, musculoskeletal discomfort, atypical chest pain, PE, pneumonia, etc. I did evaluate the patient upon arrival to the ER and respiratory therapy was immediately called. Patient required his Ventimask placed to 10 L/min in order to sustain an O2 sat above 90% Patient reports no improvement with the IV morphine and tells me that he did not take his restless leg medication this morning, the symptoms are bothering him now. I have ordered his gabapentin, Requip, and will also give IV Valium. Laboratory values reveal leukocytosis of 20.86, he does tend to run at baseline leukocytosis but this is higher than usual. He is afebrile. Potassium of 3.3, will replenish with 40 p.o. Carbon dioxide of 33.4, GFR greater than 60. Troponin less than 50, procalcitonin 0.1, Covid negative, lactate 1.1. O2 sat varying between 86 and 93%, laboratory values are not revealing any obvious emergent process, patient receiving little improvement with his symptoms. At this time I do not see a clear etiology of his symptoms. Awaiting CTA. Chest x-ray reveals overall improved aeration compared to prior exam. At this point I did request that Dr. Vazquez evaluate the patient. Please see his note. He also called respiratory, patient was given dexamethasone, a DuoNeb, and humidified air. This seemed to help overall keep his O2 level at a more appropriate level above 90%. He remains tachycardic now, at 112. Patient was initially given contrast bolus and IV infiltrated. We had to obtain another IV access point. CT was obtained. Given his high dose of contrast, he was given 1 L IV fluid. In the meantime we were able to obtain records from [facility]. It would appear as though he has a recurrent pulmonary infection, MRSA. Patient did not tolerate intravenous-nebulized vancomycin and the recommendations were to use antibiotics targeted against MRSA. Blood cultures were obtained and patient was given 1 p.o. Bactrim DS CTA of neck and chest do not reveal any obvious emergent process. At this time will treat for respiratory infection and hypoxemia. Given his O2 demand, will contact our hospitalist team to discuss admission. Patient reports his pain is increasing and if we do not treat his pain he would like an ambulance to [facility]. He was given an additional 2 mg IV morphine. Case was discussed with our hospitalist team, Dr. Brooks, who after reviewing the patient's most recent admission, he required a bronchoscopy to remove a large mucous plug in June. Unfortunately we do not have capabilities of bronchoscopy over the weekend and she believes that transfer to your care is appropriate. We then opened up the line of communication for hopeful transfer to [facility]. Awaiting callback At [address] Sue, pulmonology, [facility]. She recommends obtaining sputum culture, respiratory swab from the stoma itself, initiating both Vanco and Zosyn and she will discuss with her team whether transfer is appropriate. Patient reporting increased pain. To provide additional 2 mg IV morphine I then received a call back at [address] Sue and Dr. Molina, the medical office receptionist assistant, who states that there are no beds available. They will be happy to be available in consultation if that will be helpful. Transfer process to [facility] was opened at 1610. Medical Records Medical records reviewed: Yes I reviewed the patient's medical records. Imaging Data Radiologic Study: Attestation: I personally reviewed and interpreted this imaging study as follows: Imaging: X-Ray Radiologist's impression: PROCEDURE INFORMATION: Exam: XR Chest Exam date and time: 08/03/2021 8:35 AM Age: 76 years old Clinical indication: Other: Left sided neck pain TECHNIQUE: Imaging protocol: XR of the chest. Views: 1 view. COMPARISON: CR XR PORTABLE CHEST AP 07/01/2021 11:08 AM FINDINGS: Tubes, catheters and devices: Partially visualized endovascular thoracoabdominal graft. Surgical clips in the neck noted. Lungs: Interstitial prominence again noted. Probable bilateral pulmonary scarring. No dense confluent lobar opacities concerning for pneumonia. Pleural spaces: No pneumothorax. No pleural effusion. Heart/Mediastinum: The cardiomediastinal silhouette is within normal limits. Vasculature: Tortuous aorta. Bones/joints: Unremarkable. IMPRESSION: 1. Interstitial prominence and pulmonary scarring noted. 2. No dense confluent lobar opacities concerning for pneumonia. Overall improved aeration compared to prior exam. Radiologic Study #2: Attestation: I personally reviewed and interpreted this imaging study as follows: Imaging: CT Scan Radiologist's impression: PROCEDURE INFORMATION: Exam: CTA Chest With Contrast Exam date and time: 08/03/2021 9:48 AM Age: 76 years old Clinical indication: Pain; Left-sided TECHNIQUE: Imaging protocol: Computed tomographic angiography of the chest with contrast. 3D rendering (Not supervised by radiologist): MIP and/or 3D reconstructed images were created by the technologist. Radiation optimization: All CT scans at this facility use at least one of these dose optimization techniques: automated exposure control; mA and/or kV adjustment per patient size (includes targeted exams where dose is matched to clinical indication); or iterative reconstruction. Contrast material: OMNIPAQUE 350; Contrast volume: 100 ml; Contrast route: INTRAVENOUS (IV); COMPARISON: CT THORAX ABD/PEL CTA 07/01/2021 11:38 AM FINDINGS: Pulmonary arteries: Negative for acute pulmonary embolism. Aorta: Aortic stent in the descending thoracic aorta into the abdominal aorta, partially visualized. Lungs: Patchy airspace opacity at the posterior right lower lobe and lateral left lower lobe. Improving aeration within the previously seen opacities right lung. Pleural spaces: Unremarkable. No pneumothorax. No pleural effusion. Heart: Unremarkable. No cardiomegaly. No pericardial effusion. Lymph nodes: Mild hilar lymphadenopathy bilaterally. Largest lymph node on the right measures 1.8 cm. Bones/joints: Chronic compression fracture L1. Soft tissues: Unremarkable. Radiologic Study #3: Attestation: I personally reviewed and interpreted this imaging study as follows: Imaging: CT Scan Radiologist's impression: PROCEDURE INFORMATION: Exam: CT Angiography Neck With Contrast Exam date and time: 08/03/2021 9:48 AM Age: 76 years old Clinical indication: Other: Lt sided neck pain; Patient HX: HX of laryngeal CA TECHNIQUE: Imaging protocol: Computed tomography angiography of the neck with contrast. 3D rendering (Not supervised by radiologist): MIP and/or 3D reconstructed images were created by the technologist. Radiation optimization: All CT scans at this facility use at least one of these dose optimization techniques: automated exposure control; mA and/or kV adjustment per patient size (includes targeted exams where dose is matched to clinical indication); or iterative reconstruction. Contrast material: OMNIPAQUE 350; Contrast volume: 85 ml; Contrast route: INTRAVENOUS (IV); COMPARISON: CT neck w 09/03/2018 2:23 PM FINDINGS: Tubes, catheters and devices: Tracheostomy connection noted. Right common carotid artery: Atherosclerotic disease in the right common carotid artery causing moderate stenosis. Short segment severe stenosis of the distal common carotid artery just below the carotid bulb. Right internal carotid artery: Short segment moderate to severe stenosis at the origin of the right internal carotid artery. Prominent atherosclerotic disease in the carotid bulb. Right external carotid artery: Occluded similar to prior exam. Left common carotid artery: No stenosis. No dissection or occlusion. Left internal carotid artery: Atherosclerotic disease causing short segment severe stenosis at the origin and in the proximal/mid left extracranial ICA. Lab Data Lab results reviewed: Yes I reviewed the patient's lab results. Labs: Laboratory Tests Range/Units 08/03/21 08/03/21 08/03/21 08:45 08:45 08:55 WBC (4.4-10.8) 10^3/uL 20.86 H RBC (4.36-5.78) 10^6/uL 4.94 Hgb (13.5-17.5) g/dL 15.1 Hct (40.0-50.0) % 47.2 MCV (80-95) fL 95.5 H MCH (27.0-33.0) pg 30.6 MCHC (32.0-36.0) % 32.0 RDW (11.8-14.1) % 13.9 Plt Count (130-400) 10^3/uL 309 MPV (8.0-11.0) fL 9.7 Immature Gran % 0.3 Neutrophils % 90.7 Lymphocytes % 3.1 Monocytes % 4.7 Eosinophils % 0.5 Basophils % 0.7 Nucleated RBC % % 0 Absolute Neutrophils (1.2-6.7) 10^3/uL 18.92 H Absolute Lymphocytes (1.2-3.4) 10^3/uL 0.65 L Absolute Monocytes (0.1-0.8) 10^3/uL 0.98 H Absolute Eosinophils (0.0-0.7) 10^3/uL 0.10 Absolute Basophils (0.0-0.2) 10^3/uL 0.15 Sodium (136-145) mmol/L 139 Potassium (3.5-5.1) mmol/L 3.3 L Chloride (98-107) mmol/L 99 Carbon Dioxide (21.0-32.0) mmol/L 33.4 H Anion Gap (3-11) mmol/L 6.6 BUN (7-18) mg/dL 23 H Creatinine (0.70-1.30) mg/dL 1.0 Estimated GFR/1.73 m2 (mL/min/1.73m2) >= 60.00 Glucose (74-106) mg/dL 133 H Calcium (8.5-10.1) mg/dL 9.3 Magnesium (1.8-2.4) mg/dL 2.2 Total Bilirubin (0.2-1.0) mg/dL 0.5 AST (15-37) U/L 20 ALT (16-63) U/L 18 Alkaline Phosphatase (46-116) U/L 104 Troponin I (<or=60) ng/L < 50 Total Protein (6.4-8.2) g/dL 8.0 Albumin (3.4-5.0) g/dL 3.5 COVID-19 Source Nasal/Nares SARS-CoV-2 (PCR) (Negative) Negative ECG Data Attestation: I personally reviewed and interpreted this ECG (s) as follows: <Fabian Vazquez MD - Last Filed: 08/03/21 20:42> This is a 76-year-old gentleman with a complicated past medical history pr esenting for left-sided neck pain and hypoxemia. His significant other was allowed back to obtain a more thorough HPI. Given his atypical neck pain, I would like to initiate a cardiac work-up. I would also like to obtain CTA of the neck and chest once I see his renal function. Patient will be given 2 mg IV morphine. Differential includes but not excluded to carotid dissection, neck abscess, complication secondary to laryngeal stoma, musculoskeletal discomfort, atypical chest pain, PE, pneumonia, etc. I did evaluate the patient upon arrival to the ER and respiratory therapy was immediately called. Patient required his Ventimask placed to 10 L/min in order to sustain an O2 sat above 90% Patient reports no improvement with the IV morphine and tells me that he did not take his restless leg medication this morning, the symptoms are bothering him now. I have ordered his gabapentin, Requip, and will also give IV Valium. Laboratory values reveal leukocytosis of 20.86, he does tend to run at baseline leukocytosis but this is higher than usual. He is afebrile. Potassium of 3.3, will replenish with 40 p.o. Carbon dioxide of 33.4, GFR greater than 60. Troponin less than 50, procalcitonin 0.1, Covid negative, lactate 1.1. O2 sat varying between 86 and 93%, laboratory values are not revealing any obvious emergent process, patient receiving little improvement with his symptoms. At this time I do not see a clear etiology of his symptoms. Awaiting CTA. Chest x-ray reveals overall improved aeration compared to prior exam. At this point I did request that Dr. Vazquez evaluate the patient. Please see his note. He also called respiratory, patient was given dexamethasone, a DuoNeb, and humidified air. This seemed to help overall keep his O2 level at a more appropriate level above 90%. He remains tachycardic now, at 112. Patient was initially given contrast bolus and IV infiltrated. We had to obtain another IV access point. CT was obtained. Given his high dose of contrast, he was given 1 L IV fluid. In the meantime we were able to obtain records from [facility]. It would appear as though he has a recurrent pulmonary infection, MRSA. Patient did not tolerate intravenous-nebulized vancomycin and the recommendations were to use antibiotics targeted against MRSA. Blood cultures were obtained and patient was given 1 p.o. Bactrim DS CTA of neck and chest do not reveal any obvious emergent process. At this time will treat for respiratory infection and hypoxemia. Given his O2 demand, will contact our hospitalist team to discuss admission. Patient reports his pain is increasing and if we do not treat his pain he would like an ambulance to [facility]. He was given an additional 2 mg IV morphine. Case was discussed with our hospitalist team, Dr. Brooks, who after reviewing the patient's most recent admission, he required a bronchoscopy to remove a large mucous plug in June. Unfortunately we do not have capabilities of bronchoscopy over the weekend and she believes that transfer to your care is appropriate. We then opened up the line of communication for hopeful transfer to [facility]. Awaiting callback At [address] Sue, pulmonology, [facility]. She recommends obtaining sputum culture, respiratory swab from the stoma itself, initiating both Vanco and Zosyn and she will discuss with her team whether transfer is appropriate. Patient reporting increased pain. To provide additional 2 mg IV morphine I then received a call back at [address] Sue and Dr. Molina, the medical office receptionist assistant, who states that there are no beds available. They will be happy to be available in consultation if that will be helpful. Transfer process to [facility] was opened at 1610. 19: 05 patient resting notably no acute distress maintaining oxygenation, awaiting callback from [facility] pending bed status, likely component of right lower lobe pneumonia and chronic bacterial bronchitis with mucous plugging contributing to initial hypoxia, stable from respiratory standpoint at this time. 20: 39 resting comfortably, no acute distress, normoxic on 10 L, patient is on baseline 6 L at home, attempted transfer to [facility] for continuity of care and pulmonology in case patient needed [facility] they are capped, attempted to transfer patient to [facility] their hospitalist team is also Without beds available, contacted [facility] as they sometimes have pulmonology they are also full and do not have pulmonology on-call. Patient to be admitted here at [facility] HPI <MARC Lucero - Last Filed: 08/04/21 08:08> General Mode of arrival: ambulatory . Date/Time Provider Initiated Documentation: 08/03/21 08:02 . Limitations to Documentation: language barrier (Status post tracheostomy) . Information obtained by: patient and family . HPI Narrative: This is a 76-year-old gentleman, past medical history that includes laryngeal cancer, now with a laryngeal stoma with baseline oxygenation requirements of 31% oxygen Ventimask at 6 L/min, chronic-reoccurring pneumonia, peripheral neuropathy, peripheral arterial occlusive disease, COPD, G-tube, presenting to the ER with his significant other for evaluation of left-sided neck pain that began upon awaking yesterday, worse today, and O2 sats have been in the low to mid 80s on his typical oxygen requirements. Given the patient's laryngeal CA and stoma he can at times be difficult to understand. I did allow his significant other to come in the room to help ascertain a better history. Denies recent illness or trauma. Reports the pain in his neck does not radiate anywhere but he has baseline neuropathy so this would be hard to assess. He reports the pain at rest is moderate to severe and worse with movement. He denies headache, fever, abdominal pain, nausea, vomiting, focal acute weakness. Patient has not taken his morning medications because he came here instead, has not taken any [id number] medications for his symptoms Related Data Home Medications Medication Instructions Recorded Confirmed omeprazole 20 mg capsule,delayed 20 mg FEEDING TUBE BID #90 cap 10/05/19 08/03/21 release aspirin 81 mg chewable tablet 81 mg FEEDING TUBE DAILY 10/29/19 08/03/21 melatonin 3 mg tablet 6 mg PO HS 10/29/19 08/03/21 rosuvastatin 40 mg tablet 40 mg FEEDING TUBE HS #90 tab 12/14/19 08/03/21 citalopram 20 mg tablet 20 mg PO DAILY #90 tab 05/18/20 08/03/21 acetylcysteine 100 mg/mL (10 %) 4 ml INHALATION BID ml 07/05/20 08/03/21 solution ipratropium 0.5 mg-albuterol 3 mg 3 ml IN QID PRN #90 ml 07/30/20 08/03/21 (2.5 mg base)/3 mL nebulization soln amlodipine 5 mg tablet 5 mg PO DAILY 10/04/20 08/03/21 ferrous sulfate 300 mg (60 mg 300 mg PO QPM 10/04/20 08/03/21 iron)/5 mL oral liquid gabapentin 100 mg capsule 200 mg PO BID cap 10/04/20 08/03/21 levothyroxine 112 mcg/mL oral 112 mcg PO DAILY 10/04/20 08/03/21 solution ropinirole 1 mg tablet 1 mg PO BID 10/04/20 08/03/21 alfuzosin 10 mg tablet,extended 10 mg PO DAILY #90 tab-cap 06/26/21 08/03/21 release 24 hr (Uroxatral) finasteride 5 mg tablet 5 mg PO DAILY #90 tab 06/26/21 08/03/21 Bifidobacterium infantis 4 mg 4 mg PO QPM 08/03/21 08/03/21 capsule (Align) acetaminophen 500 mg tablet 1,000 mg PO BID@1300,2100 08/03/21 08/03/21 finasteride 5 mg tablet 5 mg PO QPM 08/03/21 08/03/21 ipratropium 0.5 mg-albuterol 3 mg 3 ml INHALATION BID 08/03/21 08/03/21 (2.5 mg base)/3 mL nebulization soln Previous Rx's Medication Instructions Recorded omeprazole 20 mg capsule,delayed 20 mg FEEDING TUBE BID #90 cap 10/05/19 release rosuvastatin 40 mg tablet 40 mg FEEDING TUBE HS #90 tab 12/14/19 citalopram 20 mg tablet 20 mg PO DAILY #90 tab 05/18/20 ipratropium 0.5 mg-albuterol 3 mg 3 ml IN QID PRN #90 ml 07/30/20 (2.5 mg base)/3 mL nebulization soln alfuzosin 10 mg tablet,extended 10 mg PO DAILY #90 tab-cap 06/26/21 release 24 hr (Uroxatral) finasteride 5 mg tablet 5 mg PO DAILY #90 tab 06/26/21 Allergies Allergy/AdvReac Type Severity Reaction Status Date / Time pollen extracts Allergy Mild Verified 08/03/21 09:02 Tetracyclines Allergy Unknown SKIN RASH Verified 08/03/21 09:02 General Stated Complaint: SOB CHER: 2 Review of Systems <MARC Lucero - Last Filed: 08/04/21 08:08> Constitutional Constitutional: Denies fatigue, Denies fever(s) and Denies weakness ENT Ears, Nose, Mouth, and Throat: Reports neck pain Cardiovascular Cardiovascular: Denies chest pain and Reports dyspnea Respiratory Respiratory: Reports cough and Reports dyspnea Gastrointestinal Gastrointestinal: Denies abdominal pain, Denies nausea and Denies vomiting Musculoskeletal Musculoskeletal: Denies back pain and Reports neck pain Integumentary/Breasts Skin/Breast: Denies rash Neurologic Neurologic: Denies weakness Endocrine Endocrine: Denies fatigue Hematologic/Lymphatic Hematologic/Lymphatic: Denies easy bleeding and Denies easy bruising PFSH <MARC Lucero - Last Filed: 08/04/21 08:08> All Active Problems (Updated 08/03/21 @ 23:42 by Sydney George MD) Occlusion of right vertebral artery (Acute) Conjunctivitis (Acute) Oral thrush (Acute) Discharge planning issues (Acute) DVT prophylaxis (Acute) Right lower lobe pneumonia (Acute) Acute and chronic respiratory failure with hypoxia (Acute) Hypoxemia (Acute) URI (upper respiratory infection) (Acute) Neck pain on left side (Acute) Pneumonia (Acute) Pneumonia (Acute) Shortness of breath (Acute) Left arm numbness (Acute) Complication of feeding tube (Acute) Peripheral neuropathy (Acute 02/21/15) MRSA pneumonia (Acute) PAOD (peripheral arterial occlusive disease) (Acute) COPD (chronic obstructive pulmonary disease) (Acute) G tube feedings (Acute) changed 10/04 18F 3cm 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 (Acute) Compression fracture of thoracolumbar vertebra (Acute) Dependence on supplemental oxygen (Chronic) Medical History (Updated 08/03/21 @ 23:42 by Sydney George MD) 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 Anemia Anxiety Anxiety 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 Blockage of feeding tube 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) Sin-mullins button placed by Dr Elia Mcdonald [facility] History of esophagogastroduodenoscopy (EGD) (~08/10/19) Daron Casper APRN @ [facility] [place]: hiatal hernia, GERD, Reyes's esophagitis, neuromuscular dysfunction History of laryngectomy History of radical laryngectomy History of tarsorrhaphy PROCEDURES RT/LEFT HEART CARD CATH COMPLETE LARYNGECTOMY Esophagoplasty S/P AAA (abdominal aortic aneurysm) repair Status post cardiac catheterization Status post cataract extraction and insertion of intraocular lens of left eye (04/30/12) Status post cataract extraction and insertion of intraocular lens of right eye (07/12/18) Status post laryngectomy Social History Smoking/Tobacco Use Status: Former Tobacco Use Tobacco: How many years used: 30 Smoking risk assessment performed?: Yes Alcohol Intake: never Drug use: Never Substance use type: does not use Current gender identity: male Do you feel safe at home: Yes Do you feel safe in your relationship?: Yes Exam <MARC Lucero - Last Filed: 08/04/21 08:08> Const General: cooperative, in distress mild and ill appearing chronically Orientation: alert and awake [facility] Head: normal to inspection, normocephalic and atraumatic General nose exam: external nose normal Mouth: moist mucous membranes abnormal (Slightly dry) Throat: posterior oropharynx normal Eyes General: appearance normal, both eyes and all related structures Conjunctivae: conjunctivae normal Neck Neck: full ROM, no lymphadenopathy, no meningeal signs and supple Other: Baseline anatomy difficult secondary to laryngeal stoma and status post laryngeal cancer. Question mild tracheal deviation to the right. There is no erythema, warmth. No induration. No spasm or torticollis. Resp Effort & Inspection: able to speak in complete sentences and tachypneic Auscultation: diminished lung sounds bilaterally in the lower lung lujan Cardio Rate: tachycardic (102) Rhythm: regular rhythm GI Inspection: other (G-tube present) Palpation: soft and nontender Back/Spine/Pelvis Back: No back tenderness Skin General skin exam: no rashes or lesions noted Neuro General: patient alert, patient awake and moves all extremities Cognition: normal cognition Sensory Exam: no sensory deficits noted Extrem General: capillary refill normal, no pedal edema and no calf tenderness Psych Appearance: grossly normal Mental Status: mental status grossly normal Course <MARC Lucero - Last Filed: 08/04/21 08:08> Vital Signs Vital signs: Vital Signs Temperature 37.3 C 08/03/21 08:16 Pulse 99 H 08/03/21 08:16 Respiratory Rate 16 08/03/21 08:16 Blood Pressure 172/77 H 08/03/21 08:16 Pulse Oximetry 89 L 08/03/21 08:16 Temperature 37.3 C 08/03/21 08:16 Temperature Source Skin 08/03/21 08:16 Pulse 99 H 08/03/21 08:16 Respiratory Rate 16 08/03/21 08:16 Respiratory Effort 08/03/21 08:16 Blood Pressure 172/77 H 08/03/21 08:16 Blood Pressure Position Supine 08/03/21 08:16 Pulse Oximetry 89 L 08/03/21 08:16 Comment 08/03/21 08:16 Critical Care Time <MARC Lucero - Last Filed: 08/04/21 08:08> Critical Care Time Total Critical Care Time: 45 Attestation: Upon my evaluation, this patient had a high probability of clinically significant, life-threatening deterioration due to their current medical conditions, which required my direct attention, intervention, and personal management. I have personally provided greater than 30 minutes of critical care time exclusive of the time spend on separately billable procedures. Time includes obtaining a history, examining the patient, pulse oximetry, review of laboratory data, radiology results, discussion with consultants, arranging urgent treatment with development of a management plan, evaluation of patient's response to treatment, and monitoring for potential decompensation. Interventio ns were performed as documented above. Sign Out <MARC Lucero - Last Filed: 08/04/21 08:08> Sign Out Data: Sign Out Comment: [id number], [facility] unable to accept transfer. Transfer initiated with [facility] at 1610. Obtaining sputum culture, viral swab from the stoma, initiating both vancomycin and Zosyn per pulmonology, Dr. Sue at [facility] Last updated by Pablo Marquis PA at 08/03/21 16:13
[2021-08-03 08:53] LABS: Abs Immature Grans 0.07 10^3/uL (0.0-0.06); Absolute Lymphocyte Count 0.65 10^3/uL (1.2-3.4); Basophils % 0.7; Eosinophils % 0.5; HCT 47.2 % (40.0-50.0); HGB 15.1 g/dL (13.5-17.5); Immature Grans % 0.3; Lymphocytes % 3.1; MCH 30.6 pg (27.0-33.0); MCV 95.5 fL (80-95); MPV 9.7 fL (8.0-11.0); Monocytes % 4.7; Neutrophils % 90.7; Nucleated RBC 0 %; Platelet Count 309 10^3/uL (130-400); RBC 4.94 10^6/uL (4.36-5.78); RDW 13.9 % (11.8-14.1); RDW-SD 48.9 fL; WBC 20.86 10^3/uL (4.4-10.8)
[2021-08-03] MEDS: MORPHine 10 MG/ML VIAL 2 MG IVP ×3 (09:01→16:09)
[2021-08-03 09:08] LABS: Absolute Basophil Count 0.15 10^3/uL (0.0-0.2); Absolute Monocyte Count 0.98 10^3/uL (0.1-0.8); Absolute Neutrophil Count 18.92 10^3/uL (1.2-6.7)
[2021-08-03 09:12] LABS: Source Nasal/Nares
[2021-08-03 09:17] LABS: ALT 18 U/L (16-63); AST 20 U/L (15-37); Albumin 3.5 g/dL (3.4-5.0); Alkaline Phosphatase 104 U/L (46-116); Anion Gap 6.6 mmol/L (3-11); BUN 23 mg/dL (7-18); Bilirubin, Total 0.5 mg/dL (0.2-1.0); CO2 33.4 mmol/L (21.0-32.0); Calcium 9.3 mg/dL (8.5-10.1); Chloride 99 mmol/L (98-107); Glucose 133 mg/dL (74-106); Magnesium 2.2 mg/dL (1.8-2.4); Potassium 3.3 mmol/L (3.5-5.1); Sodium 139 mmol/L (136-145); Troponin I < 50 ng/L (<or=60)
--- NOTE | 2021-08-03 09:24 | DI.VRAD_ITS ---
PROCEDURE INFORMATION: Exam: XR Chest Exam date and time: 08/03/2021 8:35 AM Age: 76 years old Clinical indication: Other: Left sided neck pain TECHNIQUE: Imaging protocol: XR of the chest. Views: 1 view. COMPARISON: CR XR PORTABLE CHEST AP 07/01/2021 11:08 AM FINDINGS: Tubes, catheters and devices: Partially visualized endovascular thoracoabdominal graft. Surgical clips in the neck noted. Lungs: Interstitial prominence again noted. Probable bilateral pulmonary scarring. No dense confluent lobar opacities concerning for pneumonia. Pleural spaces: No pneumothorax. No pleural effusion. Heart/Mediastinum: The cardiomediastinal silhouette is within normal limits. Vasculature: Tortuous aorta. Bones/joints: Unremarkable. IMPRESSION: 1. Interstitial prominence and pulmonary scarring noted. 2. No dense confluent lobar opacities concerning for pneumonia. Overall improved aeration compared to prior exam. Dictated and Authenticated by: Jhonny Polk MD. Ordering:JOSEPH Shah MD
--- NOTE | 2021-08-03 09:30 | DI.CT_ITS ---
Exam(s) CT CAROTID NECK CTA EXAM: CT CAROTID NECK CTA CLINICAL HISTORY: L sided neck pain. TECHNIQUE: Imaging Protocol: Axial CT angiography was performed with multi-slice acquisition and mu lti-planar and/or 3D reconstructions. CONTRAST MATERIAL: Intravenous: Omnipaque 350 Contrast volume:85 cc COMPARISON: CT CT neck w from 09/03/[address] THORAX ABD/PEL CTA from 07/01/[address] CHEST PE CTA from 08/03/2021 FINDINGS: CTA NECK W: AORTIC ARCH ANATOMY: This patient is known to have a stent graft in the mid-distal thoracic aorta and extending into the abdomen where there is also stenting of the origins of the celiac and SMA arterie s. Anterior circulation: There is significant multilevel stenosis in both common carotid arteries in the neck. On the right side there is moderate-severe narrowing in the proximal right common carotid artery, sim ilar to previous. There is both calcified and noncalcified plaque again noted at the right carotid b ifurcation proximal ICA with a severe moderate-severe stenosis at the origin of the right ICA which i s patent above this level in the upper neck and skull base-carotid canal. On the left side there is a moderate-severe stenosis in the common carotid artery a few cm distal to its origin and circumferential plaque above this level. There is also significant calcified and nonc alcified plaque at the left carotid bifurcation proximal ICA with moderate-severe stenosis at this le arnol. Also mild narrowing of the left ICA above this level in the neck but without occlusion. Posterior circulation: The left vertebral artery is dominant. 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 Some r econstitution is seen in the upper neck with mild contribution to the formation of the basilar artery at the skull base. The majority of the flow in the basilar artery is supplied by the patent dominan t left vertebral artery IMPRESSION: 1. 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 There is moderate-severe atherosclerotic na rrowing of the carotid bulbs and proximal internal carotid arteries bilaterally. 2. 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 The left verte bral artery is dominant and the main supplier to the basilar artery. RADIATION DOSE DELIVERED: 292.35mGy.cm Total DLP DATA REPOSITORY: All CT scans at this facility are submitted to the National Radiology Data Registry (NRDR) Dose Index Registry (DIR) with the [employer] ([employer]). RADIATION OPTIMIZATION: All CT scans at this facility use at least one of these dose optimization te chniques: automated exposure control; mA and/or kV adjustment per patient size (includes targeted exa ms where dose is matched to clinical indication); or iterative reconstruction.
--- NOTE | 2021-08-03 09:30 | DI.CT_ITS ---
Exam(s) CT CHEST PE CTA EXAM: CT CHEST PE CTA CLINICAL HISTORY: L sided neck pain. TECHNIQUE: Imaging Protocol: CT angiography of the chest was performed using pulmonary embolus dakota col. Multi planar reconstructions were performed. CONTRAST MATERIAL: Intravenous: Omnipaque 350 Contrast volume: 100 cc COMPARISON: CR XR PORTABLE CHEST AP from 07/01/[address] THORAX ABD/PEL CTA from 07/01/2021 CR,XR XR PORTABLE CHEST AP from 08/03/[address] scan 07/01/2021 FINDINGS: CHEST: PULMONARY ARTERIES: There are no intraluminal filling defects to suggest acute pulmonary emboli. LUNGS: There is a tracheostomy. Compared to 07/01/2021 there is increasing infiltrate in the posteri or basal segment of the right lower lobe, this despite improving upper lobe infiltrates bilaterally. There is also left lower lobe infiltrate in the lateral basal segment, unchanged. No pleural effusi on on either side. No significant focal findings in the trachea and mainstem bronchi. MEDIASTINUM: Mildly increased lymph nodes right hilum. Left hilum unremarkable. No subcarinal adeno gwendolyn. No adenopathy in the anterior mediastinal fat. No paratracheal adenopathy. No axillary kassidy opathy. Thyroid not visible CARDIAC: Mild cardiomegaly. No pericardial effusion.Caliber of the ascending thoracic aorta and aort ic arch are normal. There is a stent graft in the mid-lower thoracic aorta as well as in the visuali zed upper abdomen including stents in both the celiac and superior mesenteric artery origins. PARTIALLY VISUALIZED UPPERMOST ABDOMEN: No adrenal masses. No splenomegaly. OSSEOUS: Wedge compression fracture of T12 vertebral body again noted, unchanged from 07/01/2021. Al so milder compression fracture of L1 also unchanged IMPRESSION: 1. No evidence of acute pulmonary emboli. No evidence of pulmonary infarction.No pleural effusions. 2. However, there is infiltrate in the posterior basal segment of the right lower lobe, more so than previous. Also mild increased markings in the posterior basal segment left lower lobe. 3. Improvement in the upper lobe infiltrates. Stable T12 and L1 fractures. Report called by myself to the ER physician Thursday08/03/2021 at 5:15 p.m. RADIATION DOSE DELIVERED: 340.09mGy.cm Total DLP DATA REPOSITORY: All CT scans at this facility are submitted to the National Radiology Data Registry (NRDR) Dose Index Registry (DIR) with the [employer] ([employer]). RADIATION OPTIMIZATION: All CT scans at this facility use at least one of these dose optimization te chniques: automated exposure control; mA and/or kV adjustment per patient size (includes targeted exa ms where dose is matched to clinical indication); or iterative reconstruction.
[2021-08-03 09:51] LABS: COVID-19 PCR Negative (Negative)
[2021-08-03] MEDS: diazePAM 10 MG/2 ML SYR 5 MG IVP (10:03)
[2021-08-03] MEDS: Omnipaque 350 MG/ML 100 ML BTL IJ ×2 (10:47→10:48)
[2021-08-03] MEDS: Normal Saline Flush 10 ML SYR IVP (10:47)
[2021-08-03] MEDS: rOPINIRole 0.5 MG TAB 1 MG PO (11:36)
[2021-08-03] MEDS: Gabapentin 100 MG CAP 200 MG PO (11:36)
[2021-08-03] MEDS: Normal Saline 1,000 ML 1000 ML IV (11:39)
[2021-08-03] MEDS: Albuterol/Ipratropium 3 ML UPD VIAL UPD (12:24)
--- NOTE | 2021-08-03 12:38 | DI.VRAD_ITS ---
PROCEDURE INFORMATION: Exam: CTA Chest With Contrast Exam date and time: 08/03/2021 9:48 AM Age: 76 years old Clinical indication: Pain; Left-sided TECHNIQUE: Imaging protocol: Computed tomographic angiography of the chest with contrast. 3D rendering (Not supervised by radiologist): MIP and/or 3D reconstructed images were created by the technologist. Radiation optimization: All CT scans at this facility use at least one of these dose optimization techniques: automated exposure control; mA and/or kV adjustment per patient size (includes targeted exams where dose is matched to clinical indication); or iterative reconstruction. Contrast material: OMNIPAQUE 350; Contrast volume: 100 ml; Contrast route: INTRAVENOUS (IV); COMPARISON: CT THORAX ABD/PEL CTA 07/01/2021 11:38 AM FINDINGS: Pulmonary arteries: Negative for acute pulmonary embolism. Aorta: Aortic stent in the descending thoracic aorta into the abdominal aorta, partially visualized. Lungs: Patchy airspace opacity at the posterior right lower lobe and lateral left lower lobe. Improving aeration within the previously seen opacities right lung. Pleural spaces: Unremarkable. No pneumothorax. No pleural effusion. Heart: Unremarkable. No cardiomegaly. No pericardial effusion. Lymph nodes: Mild hilar lymphadenopathy bilaterally. Largest lymph node on the right measures 1.8 cm. Bones/joints: Chronic compression fracture L1. Soft tissues: Unremarkable. Other findings: Emphysematous and fibrotic changes. IMPRESSION: 1. Negative for acute pulmonary embolism. 2. Patchy airspace opacity at the posterior right lower lobe and lateral left lower lobe. Improving aeration within the previously seen opacities right lung. 3. Mild hilar lymphadenopathy bilaterally. Largest lymph node on the right measures 1.8 cm. Dictated and Authenticated by: Chelly Mota MD. Ordering:JOSEPH Shah MD
--- NOTE | 2021-08-03 12:44 | DI.VRAD_ITS ---
PROCEDURE INFORMATION: Exam: CT Angiography Neck With Contrast Exam date and time: 08/03/2021 9:48 AM Age: 76 years old Clinical indication: Other: Lt sided neck pain; Patient HX: HX of laryngeal CA TECHNIQUE: Imaging protocol: Computed tomography angiography of the neck with contrast. 3D rendering (Not supervised by radiologist): MIP and/or 3D reconstructed images were created by the technologist. Radiation optimization: All CT scans at this facility use at least one of these dose optimization techniques: automated exposure control; mA and/or kV adjustment per patient size (includes targeted exams where dose is matched to clinical indication); or iterative reconstruction. Contrast material: OMNIPAQUE 350; Contrast volume: 85 ml; Contrast route: INTRAVENOUS (IV); COMPARISON: CT neck w 09/03/2018 2:23 PM FINDINGS: Tubes, catheters and devices: Tracheostomy connection noted. Right common carotid artery: Atherosclerotic disease in the right common carotid artery causing moderate stenosis. Short segment severe stenosis of the distal common carotid artery just below the carotid bulb. Right internal carotid artery: Short segment moderate to severe stenosis at the origin of the right internal carotid artery. Prominent atherosclerotic disease in the carotid bulb. Right external carotid artery: Occluded similar to prior exam. Left common carotid artery: No stenosis. No dissection or occlusion. Left internal carotid artery: Atherosclerotic disease causing short segment severe stenosis at the origin and in the proximal/mid left extracranial ICA. Left external carotid artery: No occlusion or stenosis of the origin. Left anterior cerebral artery: The left A1 segment is diminutive. Prominent anterior communicating artery feeding the majority of the remaining left anterior cerebral artery. Right vertebral artery: The right vertebral artery is occluded throughout the majority of its course. Minimal retrograde filling of the intracranial right vertebral artery noted from a patent dominant left vertebral artery. Left vertebral artery: Multifocal atherosclerotic disease in the left vertebral artery causing moderate stenosis at the level of C5. Basilar artery: The basilar artery is patent. Soft tissues: Normal. No significant soft tissue swelling. Bones/joints: Severe multilevel degenerative changes in the cervical spine. Grade 2 anterolisthesis C4 on C5. Severe degenerative disc disease at C5-6 and C6-7. Lungs: Emphysematous disease noted. IMPRESSION: 1. Short segment severe stenosis in the distal common carotid artery just below the carotid bulb. This is similar to prior exam. 2. Short segment moderate to severe stenosis at the origin of the right internal carotid artery. This is similar to slightly worsened compared to prior exam. 3. Short segment severe stenosis at the origin and in the in the proximal/mid left ICA. This is similar to prior exam. 4. 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 This is similar to prior exam. 5. Severe multilevel degenerative changes in the cervical spine. REFERENCES: NASCET CRITERIA. The degree of internal carotid artery stenosis is based on NASCET criteria. Normal is no stenosis. Mild is less than 50% stenosis. Moderate is 50-69% stenosis. Severe is 70% to 99% stenosis. Total occlusion is no detectable patent lumen. Dictated and Authenticated by: Jhonny Polk MD. Ordering:JOSEPH Shah MD
[2021-08-03] MEDS: Dexamethasone 10 MG/ML VIAL IVP (13:00)
[2021-08-03 14:01] LABS: Troponin I < 50 ng/L (<or=60)
[2021-08-03 14:14] LABS: Lactate 1.1 mmol/L (0.6-1.4)
[2021-08-03] MEDS: Sulfameth/Trimeth DS TAB 1 TAB PO (14:18)
[2021-08-03 14:46] LABS: Procalcitonin 0.1 ng/mL
[2021-08-03] MEDS: PIPERACILLIN/TAZO 3.375 GM in Normal Saline 50 ML IVPB (16:20)
[2021-08-03 17:06] LABS: COVID-19 PCR Negative (Negative); Influenza A PCR Negative (Negative); Influenza B PCR Negative (Negative); RSV PCR Negative (Negative)
[2021-08-03 17:07] LABS: Source Nasopharynx
--- NOTE | 2021-08-03 22:07 | HPE_ITS ---
Date of service: 08/03/21 Time of Service: 22:10 Assessment and Plan Assessment and plan (1) Acute and chronic respiratory failure with hypoxia: Status: Acute Assessment and plan: Multifactorial, due to RLL and COPD exacerbation. There is a possible component of mucuous plugging. The patient uses a percussion vest at home. This will be brought in. At home, he uses acetylcysteine nebs twice a day. Per recommendations of Dr Sevilla on last admission, he was supposed to be on normal saline nebs and NAC PO. I have ordered both NAC nebs and the PO NAC as well as NS nebs, scheduled duonebs, prn albuterol, prednisone, and systemic antibiotics. (2) Right lower lobe pneumonia: Status: Acute Assessment and plan: Suspect aspiration pneumonia given known dysphagia and presence of a gastrostomy tube as well as location of the infiltrate. However, also has a h/o recent hospitalization and MRSA pneumonia. Treat with vancomycin/zosyn. Obtain pulmonology consult. Obtain speech therapy consult. Will continue home pureed diet with thin liquids for now. Obtain nutrition consult for advice on TF formula. 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 Will obtain in-house nonemergent surgical consultation for this to happen while here. THere are no current issues with his gastrostomy tube. (5) Occlusion of right vertebral artery: Status: Acute Assessment and plan: Probably a chronic finding as the contralateral vertebral artery appears to be the dominant supplier for the basilar artery. The patient has a h/o known atherosclerosis. No change in tx. Not the cause of his neck pain. F/u as outpatient. (6) Neck pain on left side: Status: Acute Assessment and plan: Etiology most likely MSK. At this point, will continue home pain management regimen with prn morphine at this time. He may benefit from further cervical spine imaging if sx persist tomorrow. (7) Oral thrush: Status: Acute Assessment and plan: Nystatin swish and swallow (8) Conjunctivitis: Status: Acute Assessment and plan: L eye Trial moxifloxacin eye drops (9) DVT prophylaxis: Status: Acute Assessment and plan: sc enoxaparin (10) Discharge planning issues: Status: Acute Assessment and plan: Full code as confirmed by my conversation with the patient with his partner/caregiver in the room Admit to ICU given high oxygen requirement. Total Critical Care Time 60 minutes. 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 According to the ED provider, the patient's O2 sats at home were in the 70s and 80s on his baseline O2. The respiratory symptoms started this morning, while neck/jaw pain has been going on for two days. Denies any known episodes of aspiration. He does eat pureed/pudding thick foods and drinks all consistencies of liquids. He also supplements his nutrition with tube feeding. In the ED, he was placed on 10L of O2 by trach collar with improvement in his O2 saturations. His workup in the ED revealed a leucocytosis of 20.86, no ACS, an occluded right verterbral artery and moderate to severe narrowing of the carotid bulbs and proximal internal carotid arteries bilaterally due to atherosclerosis. ACS was ruled out with serial troponins. His CTA of the chest revealed a RLL infiltrate as well as mildly increased markings in LLL. There was no evidence of PE. He was initiated on vancomycin/zosyn. The patient had requested transfer to [facility] and as he previously had required bronchoscopy it was felt to be medically appropriate as we have no ability to perform bronchoscopy tonight. . However, no beds were available at either [facility] or [facility]. The patient is significantly improved since arrival to the ED, and it is felt that the source of his symptoms is the RLL pneumonia. Hospitalist admission at [facility] was requested. Review of Systems All systems reviewed & are unremarkable except as noted in HPI and below PFSH All Active Problems (Updated 08/03/21 @ 23:42 by Sydney George MD) Occlusion of right vertebral artery (Acute) Conjunctivitis (Acute) Oral thrush (Acute) Discharge planning issues (Acute) DVT prophylaxis (Acute) Right lower lobe pneumonia (Acute) Acute and chronic respiratory failure with hypoxia (Acute) Hypoxemia (Acute) URI (upper respiratory infection) (Acute) Neck pain on left side (Acute) Pneumonia (Acute) Pneumonia (Acute) Shortness of breath (Acute) Left arm numbness (Acute) Complication of feeding tube (Acute) Peripheral neuropathy (Acute 02/21/15) MRSA pneumonia (Acute) PAOD (peripheral arterial occlusive disease) (Acute) COPD (chronic obstructive pulmonary disease) (Acute) G tube feedings (Acute) changed 10/04 18F 3cm 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 (Acute) Compression fracture of thoracolumbar vertebra (Acute) Dependence on supplemental oxygen (Chronic) Medical History (Updated 08/03/21 @ 23:42 by Sydney George MD) 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 Anemia Anxiety Anxiety 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 Blockage of feeding tube 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/17) CAD (coronary artery disease) Chronic respiratory failure with hypoxia Complication of feeding tube Conjunctivitis, chronic COPD (chronic obstructive pulmonary disease) Cortical cataract of right eye Depression Depressive disorder (11/18/12) Dyspnea on exertion Feeding tube dysfunction Hematoma following procedure Herpes zoster History of alcoholism sober x 25yrs History of tobacco use Hyperlipemia Hyperlipidemia (11/18/12) Hypertension Hypertension (11/18/12) Hypothyroidism Hypothyroidism (11/18/12) Impingement syndrome, shoulder, left (10/10/16) -2016: PT sugg. 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) Sin-mullins button placed by Dr Elia Mcdonald [facility] History of esophagogastroduodenoscopy (EGD) (~08/10/19) Daron Casper APRN @ [facility]: hiatal hernia, GERD, Reyes's esophagitis, neuromuscular dysfunction History of laryngectomy History of radical laryngectomy History of tarsorrhaphy PROCEDURES RT/LEFT HEART CARD CATH COMPLETE LARYNGECTOMY Esophagoplasty S/P AAA (abdominal aortic aneurysm) repair Status post cardiac catheterization Status post cataract extraction and insertion of intraocular lens of left eye (04/30/12) Status post cataract extraction and insertion of intraocular lens of right eye (07/12/18) Status post laryngectomy Social History Smoking/Tobacco Use Status: Former Tobacco Use Tobacco: How many years used: 30 Smoking risk assessment performed?: Yes Alcohol Intake: never Drug use: Never Substance use type: does not use Current gender identity: male Do you feel safe at home: Yes Do you feel safe in your relationship?: Yes Meds Allergies and Home Medications Allergies Allergy/AdvReac Type Severity Reaction Status Date / Time pollen extracts Allergy Mild Verified 08/03/21 09:02 Tetracyclines Allergy Unknown SKIN RASH Verified 08/03/21 09:02 Home Medications Medication Instructions Recorded Confirmed Type omeprazole 20 mg capsule,delayed 20 mg FEEDING TUBE BID #90 cap 10/05/19 08/03/21 Rx release aspirin 81 mg chewable tablet 81 mg FEEDING TUBE DAILY 10/29/19 08/03/21 History melatonin 3 mg tablet 6 mg PO HS 10/29/19 08/03/21 History rosuvastatin 40 mg tablet 40 mg FEEDING TUBE HS #90 tab 12/14/19 08/03/21 Rx citalopram 20 mg tablet 20 mg PO DAILY #90 tab 05/18/20 08/03/21 Rx acetylcysteine 100 mg/mL (10 %) 4 ml INHALATION BID ml 07/05/20 08/03/21 History solution ipratropium 0.5 mg-albuterol 3 mg 3 ml IN QID PRN #90 ml 07/30/20 08/03/21 Rx (2.5 mg base)/3 mL nebulization soln amlodipine 5 mg tablet 5 mg PO DAILY 10/04/20 08/03/21 History ferrous sulfate 300 mg (60 mg 300 mg PO QPM 10/04/20 08/03/21 History iron)/5 mL oral liquid gabapentin 100 mg capsule 200 mg PO BID cap 10/04/20 08/03/21 History levothyroxine 112 mcg/mL oral 112 mcg PO DAILY 10/04/20 08/03/21 History solution ropinirole 1 mg tablet 1 mg PO BID 10/04/20 08/03/21 History alfuzosin 10 mg tablet,extended 10 mg PO DAILY #90 tab-cap 06/26/21 08/03/21 Rx release 24 hr (Uroxatral) finasteride 5 mg tablet 5 mg PO DAILY #90 tab 06/26/21 08/03/21 Rx Bifidobacterium infantis 4 mg 4 mg PO QPM 08/03/21 08/03/21 History capsule (Align) acetaminophen 500 mg tablet 1,000 mg PO BID@1300,2100 08/03/21 08/03/21 History finasteride 5 mg tablet 5 mg PO QPM 08/03/21 08/03/21 History ipratropium 0.5 mg-albuterol 3 mg 3 ml INHALATION BID 08/03/21 08/03/21 History (2.5 mg base)/3 mL nebulization soln Exam Narrative Exam Narrative: General: Anxious, restless elderly male who is constantly moving in bed, A&ox3, communicating via a device, no evidence of dyspnea/tachypnea or cyanosis Neurological: A&Ox3, no focal deficits Psychiatric: anxious, restless Skin: Visible skin intact HEENT: Atraumatic,normocephalic, EOMI, L eye with purulent discharge and partially closed (blind in that eye), dry MM, oral thrush, clear oropharynx, neck/jaw pain unreproducible, no submandibular or cervical lymphadenopathy, no goiter or JVD Cardiovascular: RRR, no m/r/g Lungs: wheezing and rales on expiration B Gastrointestinal: soft, nontender, nondistended; LUQ gastrostomy tube in place Genitourinary: normal genital exam Extremities: no edema, clubbing or cyanosis, B feet cool, 1+ pedal pulses B Results Imaging Additional studies: CTA neck: 1.? There is severe atherosclerotic disease in the neck.? There is moderate-severe atherosclerotic narrowing of the carotid bulbs and proximal internal carotid arteries bilaterally. 2. The right vertebral artery is occluded at its origin and throughout most of its course, with some reconstitution distally and mild contribution to the formation of the basilar artery.? The left vertebral artery is dominant and the main supplier to the basilar artery. CXR: Improved appearance of the lung lujan when compared to 07/01/2021. CTA chest: 1. No evidence of acute pulmonary emboli.? No evidence of pulmonary infarction.No pleural effusions. 2. However, there is infiltrate in the posterior basal segment of the right lower lobe, more so than previous.? Also mild increased markings in the posterior basal segment left lower lobe. 3. Improvement in the upper lobe infiltrates. Stable T12 and L1 fractures. EKG: HR 92, sinus tach, RBBB (old), no acute ischemia Labs Result diagrams: 08/03/21 08:45 08/03/21 08:45 Labs: Laboratory Results - last 24 hr 08/03/21 08/03/21 08/03/21 08:45 08:45 08:55 WBC 20.86 H RBC 4.94 Hgb 15.1 Hct 47.2 MCV 95.5 H MCH 30.6 MCHC 32.0 RDW 13.9 Plt Count 309 MPV 9.7 Immature Gran % 0.3 Neutrophils % 90.7 Lymphocytes % 3.1 Monocytes % 4.7 Eosinophils % 0.5 Basophils % 0.7 Nucleated RBC % 0 Absolute Neutrophils 18.92 H Absolute Lymphocytes 0.65 L Absolute Monocytes 0.98 H Absolute Eosinophils 0.10 Absolute Basophils 0.15 VBG Lactate Sodium 139 Potassium 3.3 L Chloride 99 Carbon Dioxide 33.4 H Anion Gap 6.6 BUN 23 H Creatinine 1.0 Estimated GFR/1.73 m2 >= 60.00 Glucose 133 H Calcium 9.3 Magnesium 2.2 Total Bilirubin 0.5 AST 20 ALT 18 Alkaline Phosphatase 104 Troponin I < 50 Total Protein 8.0 Albumin 3.5 Procalcitonin COVID-19 Source Nasal/Nares SARS-CoV-2 (PCR) Negative Influenza Type A (PCR) Influenza Type B (PCR) RSV (PCR) 08/03/21 08/03/21 08/03/21 13:40 14:05 16:15 WBC RBC Hgb Hct MCV MCH MCHC RDW Plt Count MPV Immature Gran % Neutrophils % Lymphocytes % Monocytes % Eosinophils % Basophils % Nucleated RBC % Absolute Neutrophils Absolute Lymphocytes Absolute Monocytes Absolute Eosinophils Absolute Basophils VBG Lactate 1.1 Sodium Potassium Chloride Carbon Dioxide Anion Gap BUN Creatinine Estimated GFR/1.73 m2 Glucose Calcium Magnesium Total Bilirubin AST ALT Alkaline Phosphatase Troponin I < 50 Total Protein Albumin Procalcitonin 0.1 COVID-19 Source Nasopharynx SARS-CoV-2 (PCR) Negative Influenza Type A (PCR) Negative Influenza Type B (PCR) Negative RSV (PCR) Negative Last Vital Signs Temp 37.3 C 08/03/21 08:16 Pulse 97 H 08/03/21 20:30 Resp 16 08/03/21 20:50 BP 149/64 H 08/03/21 20:30 Pulse Ox 99 08/03/21 20:54
[2021-08-04] VITALS (91 sets, daily range): BP systolic 126–182; BP diastolic 54–145; PULSE 60–109; RESP 3–27; TEMP 36.6–37.1; O2SAT 90–100
[2021-08-04] MEDS: rOPINIRole 0.5 MG TAB 1 MG PO (00:37)
[2021-08-04] MEDS: Enoxaparin 40 MG/0.4 ML SYR SC (00:39)
[2021-08-04] MEDS: Melatonin 3 MG TAB 6 MG PO ×2 (00:41→19:21)
[2021-08-04] MEDS: Acetylcysteine 600 MG CAP PO ×3 (00:42→19:15)
[2021-08-04] MEDS: Gabapentin 100 MG CAP PO (00:43)
[2021-08-04] MEDS: Omeprazole 20 MG CAPCR PO (00:43)
[2021-08-04] MEDS: Albuterol/Ipratropium 3 ML UPD VIAL UPD ×5 (00:55→17:42)
[2021-08-04] MEDS: Rosuvastatin 10 MG TAB 40 MG PO (01:00)
[2021-08-04] MEDS: Finasteride 5 MG TAB PO (01:00)
[2021-08-04] MEDS: Acetaminophen 500 MG TAB 1000 MG PO (01:00)
[2021-08-04] MEDS: PIPERACILLIN/TAZO 3.375 GM in Normal Saline 50 ML IVPB ×4 (01:40→18:44)
[2021-08-04] MEDS: Potassium Chloride Liquid 20 MEQ PKT 40 MEQ NG (01:41)
[2021-08-04] MEDS: MORPHine 2 MG/ML SYR IVP (01:45)
[2021-08-04] MEDS: Levothyroxine 112 MCG TAB PO (05:40)
[2021-08-04] MEDS: Nystatin 500000 UNITS/5 ML SUSP 5ML CUP PO ×5 (05:41→21:28)
[2021-08-04 06:52] LABS: Abs Immature Grans 0.06 10^3/uL (0.0-0.06); Absolute Basophil Count 0.04 10^3/uL (0.0-0.2); Absolute Lymphocyte Count 0.53 10^3/uL (1.2-3.4); Basophils % 0.3; HCT 46.5 % (40.0-50.0); HGB 14.6 g/dL (13.5-17.5); Immature Grans % 0.4; Lymphocytes % 3.9; MCH 30.7 pg (27.0-33.0); MCHC 31.4 % (32.0-36.0); MCV 97.9 fL (80-95); MPV 10.2 fL (8.0-11.0); Monocytes % 5.3; Neutrophils % 90.1; Nucleated RBC 0 %; Platelet Count 318 10^3/uL (130-400); RBC 4.75 10^6/uL (4.36-5.78); RDW 14.1 % (11.8-14.1); WBC 13.71 10^3/uL (4.4-10.8)
[2021-08-04 06:54] LABS: Absolute Monocyte Count 0.73 10^3/uL (0.1-0.8); Absolute Neutrophil Count 12.35 10^3/uL (1.2-6.7)
[2021-08-04 07:06] LABS: Anion Gap 11.8 mmol/L (3-11); BUN 25 mg/dL (7-18); CO2 27.2 mmol/L (21.0-32.0); Calcium 9.3 mg/dL (8.5-10.1); Chloride 105 mmol/L (98-107); Glucose 140 mg/dL (74-106); Magnesium 2.3 mg/dL (1.8-2.4); PHOSPHORUS 4.2 mg/dL (2.6-4.7); Potassium 3.8 mmol/L (3.5-5.1); Sodium 144 mmol/L (136-145)
[2021-08-04] MEDS: Gabapentin 100 MG CAP 200 MG NG ×2 (08:03→19:16)
[2021-08-04] MEDS: methylPREDNISolone SUCC 40 MG VIAL IVP (08:03)
[2021-08-04] MEDS: Aspirin 81 MG CHEW NG (08:03)
[2021-08-04] MEDS: amLODIPine 5 MG TAB NG (08:03)
[2021-08-04] MEDS: Citalopram 20 MG TAB NG (08:03)
[2021-08-04] MEDS: rOPINIRole 1 MG TAB NG ×2 (09:07→19:17)
[2021-08-04] MEDS: Omeprazole 20 MG CAPCR NG ×2 (09:19→19:18)
[2021-08-04] MEDS: Ferrous Sulfate 325 MG TAB PO (10:34)
[2021-08-04] MEDS: VANCOMYCIN/WATER (PEG) 1 GM/200 ML BAG IV (10:34)
--- NOTE | 2021-08-04 11:22 | W.PM.PROGNOT ---
Date of Service Date of service: 08/04/21 Time of Service: :22 Assessment and Plan Assessment and plan (1) Pneumonia: Status: Acute Assessment and plan: Continue vancomycin and Zosyn pending results of sputum sent for cultures. Continue with nebulizers. (2) Acute and chronic respiratory failure with hypoxia: Status: Acute Assessment and plan: As above. Titrate FiO2 to maintain SPO2 greater than 88%. We will consult with pulmonary in the morning for follow-up of his COPD (3) COPD (chronic obstructive pulmonary disease): Status: Acute Assessment and plan: Patient was started on Solu-Medrol by the export freight specialist because of increased bronchospasm associated with thickened purulent secretions. Continue current antibiotic treatment for pneumonia as above. Continue bronchodilators patient is on oral Mucomyst capsules. I would consider changing to Mucomyst aerosol treatments but will defer to his [employer]. (4) Neck pain on left side: Status: Acute Assessment and plan: Problems musculoskeletal function. Better today. 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 However no acute issues were found with his trachea. (5) Conjunctivitis: Status: Acute Assessment and plan: cont. 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 consult surgery for his scheduled feeding tube exchange (he was scheduled to see Dr. Riley as outpatient tomorrow) (7) Oral thrush: Status: Acute Assessment and plan: nystatin swish and swallow (8) DVT prophylaxis: Status: Acute Assessment and plan: enoxaparin 40 mg SC daily (9) Discharge planning issues: Status: Acute Assessment and plan: full code per Dr. George's discussion w/ patient and his partner. patient now down to 8 lpm tracheostomy mask. (his baseline is 6 lpm). I think he is stable for transfer to the floor Subjective Subjective Interval history since last seen: Patient reports he feels better today. He is less dyspneic. He is sitting up talking respiratory therapist and myself using his mechanical voicebox. He coughed up a large mucous plug for respiratory therapy have to monitor his breathing treatments. Presents emergency department last night from home with acute on chronic respiratory failure with oxygen saturations in the 70s and 80s at home and requiring increased FiO2 requirements from his baseline of 6 L of oxygen via trach collar was put on 10 L of oxygen. He was admitted to the intensive care unit overnight. He was found to have right lower lobe infiltrate as well as left lower lobe infiltrates on his CT of his chest. He had no evidence of PE. Because of his prior history of MRSA he was put on vancomycin and Zosyn was also added to his regimen. Exam Narrative Exam Narrative: Chan is sitting up at the bedside, talking w/ RT. He is not acutely dyspneic Lungs: scattered expiratory wheezing w/ bibasilar rales Heart: tachycardic but regular Abdomen: soft, nondistended, nontender Extremities: no edema or cyanosis Objective Last Vital Signs Temp 36.6 C 08/04/21 10:05 Pulse 91 H 08/04/21 10:05 Resp 18 08/04/21 10:20 BP 161/58 H 08/04/21 10:05 Pulse Ox 99 08/04/21 10:20 Laboratory Results - last 24 hr 08/03/21 08/03/21 08/03/21 13:40 14:05 16:15 WBC RBC Hgb Hct MCV MCH MCHC RDW Plt Count MPV Immature Gran % Neutrophils % Lymphocytes % Monocytes % Eosinophils % Basophils % Nucleated RBC % Absolute Neutrophils Absolute Lymphocytes Absolute Monocytes Absolute Eosinophils Absolute Basophils VBG Lactate 1.1 Sodium Potassium Chloride Carbon Dioxide Anion Gap BUN Creatinine Estimated GFR/1.73 m2 Glucose Calcium Phosphorus Magnesium Troponin I < 50 Procalcitonin 0.1 COVID-19 Source Nasopharynx SARS-CoV-2 (PCR) Negative Influenza Type A (PCR) Negative Influenza Type B (PCR) Negative RSV (PCR) Negative 08/04/21 08/04/21 06:02 06:02 WBC 13.71 H D RBC 4.75 Hgb 14.6 Hct 46.5 MCV 97.9 H MCH 30.7 MCHC 31.4 L RDW 14.1 Plt Count 318 MPV 10.2 Immature Gran % 0.4 Neutrophils % 90.1 Lymphocytes % 3.9 Monocytes % 5.3 Eosinophils % 0.0 Basophils % 0.3 Nucleated RBC % 0 Absolute Neutrophils 12.35 H Absolute Lymphocytes 0.53 L Absolute Monocytes 0.73 Absolute Eosinophils 0.00 Absolute Basophils 0.04 VBG Lactate Sodium 144 Potassium 3.8 Chloride 105 Carbon Dioxide 27.2 Anion Gap 11.8 H BUN 25 H Creatinine 1.0 Estimated GFR/1.73 m2 >= 60.00 Glucose 140 H Calcium 9.3 Phosphorus 4.2 Magnesium 2.3 Troponin I Procalcitonin COVID-19 Source SARS-CoV-2 (PCR) Influenza Type A (PCR) Influenza Type B (PCR) RSV (PCR) Reviewed Pertinent PMH: Yes
--- NOTE | 2021-08-04 12:40 | IN_ITS ---
PT Notes Visit Reasons: Acute on Chronic Hypoxic Respiratory Failure, RLL Physical Therapy Inpatient Initial Evaluation Date: 08/04/21 Referring Doctor: Sydney George MD PT Orders: PT CONSULT: Limited ability Precautions: Fall. Standard. Patient Profile/Admitting Diagnosis: Acute on Chronic Hypoxic Respiratory Failure PMHX: All Active Problems?(Updated 08/03/21 @ 23:42 by Sydney George MD) Occlusion of right vertebral artery (Acute) Conjunctivitis (Acute) Oral thrush (Acute) Discharge planning issues (Acute) DVT prophylaxis (Acute) Right lower lobe pneumonia (Acute) Acute and chronic respiratory failure with hypoxia (Acute) Hypoxemia (Acute) URI (upper respiratory infection) (Acute) Neck pain on left side (Acute) Pneumonia (Acute) Pneumonia (Acute) Shortness of breath (Acute) Left arm numbness (Acute) Complication of feeding tube (Acute) Peripheral neuropathy (Acute 02/21/15) MRSA pneumonia (Acute) PAOD (peripheral arterial occlusive disease) (Acute) COPD (chronic obstructive pulmonary disease) (Acute) G tube feedings (Acute) changed 10/04? 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 Anemia Anxiety Anxiety Aphonia [place] [facility] [place] of feeding tube 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/17) CAD (coronary artery disease) Chronic respiratory failure with hypoxia Complication of feeding tube Conjunctivitis, chronic COPD (chronic obstructive pulmonary disease) Cortical cataract of right eye Depression Depressive disorder (11/18/12) Dyspnea on exertion Feeding tube dysfunction Hematoma following procedure Herpes zoster History of alcoholism sober x 25yrs History of tobacco use Hyperlipemia Hyperlipidemia (11/18/12) Hypertension Hypertension (11/18/12) Hypothyroidism Hypothyroidism (11/18/12) Impingement syndrome, shoulder, left (10/10/16) -2016: PT sugg. 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 Nuclear sclerotic cataract of right eye Post herpetic neuralgia Posterior subcapsular age-related cataract, right eye Primary malignant neoplasm of oropharynx ; yearly fup in Feb? (last ) [facility] [place] ROR: 1999 + 2007 Pulmonary nodule, right (05/30/15) on chest CT -2015: stable Restless leg syndrome (02/21/15) Sessile colonic polyp 12/22/16-SESSILE SERRATED ADENOMA Tobacco use Surgical History? 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) Sin-mullins button [facility] by [facility] El[facility]cdonald[facility] ([facility]) (~08/10/19) Daron Casper [place] [facility] [place], GERD, Reyes's esophagitis, neuromuscular dysfunctionHistory of laryngectomy History of radical laryngectomy History of tarsorrhaphy PROCEDURES RT/LEFT HEART CARD CATH COMPLETE LARYNGECTOMY Esophagoplasty S/P AAA (abdominal aortic aneurysm) repair Status post cardiac catheterization Status post cataract extraction and insertion of intraocular lens of left eye (04/30/12) Status post cataract extraction and insertion of intraocular lens of right eye (07/12/18) Status post laryngectomy Social History/Home Situation: Pt lives with his partner in a 2 story home, receiving assist for ascent/descent of stairs as needed. Equipment Owned/DME: FWW, trach collar with supplemental O2 Subjective: Cleared by nursing to see patient and patient is agreeable to PT. Patient sitting up at EOB at time of consult and connected to telemetry, IV, and trach collar. Objective: General Observation: Pt appears in no acute distress Mental Status: A&O x3 Pain: Pt reports mild pain in the L side of his neck, stating this was severe prior to coming into the hospital Vitals: HR: 107 SpO2: 99% on 10L via trach ROM: Right Upper Extremity: Shoulder Flexion WFL. Shoulder abduction WFL. Elbow flexion WFL. Wrist flexion WFL. Opening and closing of hand WFL. Left Upper Extremity: Shoulder Flexion 40deg. Shoulder abduction 40deg. Elbow flexion WFL. Wrist flexion WFL. Opening and closing of hand WFL. Right Lower Extremity: Hip flexion WFL. Hip abduction WFL. Knee flexion WFL. Ankle dorsiflexion WFL. Ankle plantarflexion WFL. Left Lower Extremity: Hip flexion WFL. Hip abduction WFL. Knee flexion WFL. Ankle dorsiflexion WFL. Ankle plantarflexion WFL. Strength: Right Upper Extremity: Shoulder flexors 5/5. Shoulder abductors 5/5. Elbow flexors 5/5. Elbow extensors 5/5. Supervisor [employer]iver[employer] strong. Left Upper Extremity: Shoulder flexors 2/5. Shoulder abductors 2/5. Elbow flexors 3/5. Elbow extensors 3/5. Weak alignment technician. Right Lower Extremity: Hip flexors 5/5. Hip abductors 5/5. Knee flexors 5/5. Knee extensors 5/5. Ankle dorsiflexors 5/5. Ankle plantarflexors 5/5. Left Lower Extremity: Hip flexors 5/5. Hip abductors 5/5. Knee flexors 5/5. Knee extensors 5/5. Ankle dorsiflexors 5/5. Ankle plantarflexors 5/5. Sensation: Intact as to pain and pressure on bilateral lower extremities. Bed Mobility/Transfers: Rolling: I Supine to sit: I Sit to supine: I Sit to stand: I Stand to sit: I Bed to chair: SBA to manage lines Chair to bed: SBA to manage lines 30s sit to stand: unable to rise without use of UE support. Balance: Static Sitting: I Dynamic Sitting: I 4 stage balance test Time completed FT 8s Semi-tandem NT Tandem NT SLS NT Special Tests: Mobility Limitations Standardized Measure [facility] AM-PAC 6 clicks Basic Mobility Inpatient Short Form: Raw Score: 20 CMS Score: 36% Informed Consent/Education: Patient instructed in purpose of PT consult and plan of care. Assessment: Patient presents with clinical signs and symptoms consistent with current/admitting diagnoses that have resulted to mobility limitations, gait instability, generalized weakness, and impairment of motor control as demonstrated by the following impairment level findings: 1. Decreased strength to major muscle groups 2. Impaired sitting/standing balance 3. Impaired activity tolerance 4. Limitation of joint range of motion in LUE Impairments are contributing to the following functional limitations: 1. Inability to safely ambulate without assistive device and physical assistance 2. Increase completion time for mobility ADL performance 3. Increased fall risk 4. Inability to negotiate steps alone safely Patient is assessed as a moderate complexity based on the following: History: 76 year old male identifying person with impairment level findings, functional limitations, and past medical history as indicated above Examination: Demonstrable impairment in strength, balance, and mobility level with underlying impairments and functional limitations as documented above Presentation: Evolving Decision Making: Moderate complexity Goals: Goals x1 week 1. Bed-Chair: independent 2. Chair-Bed: independent 3. Independent gait on level surface with use of least restrictive device for at least 50 feet without report of pain nor dyspnea 4. Independent stair negotiation while holding onto bilateral rails for at least 10 steps without report of pain nor dyspnea 5. Independent with home exercise program 6. Good static and dynamic standing balance/tolerance Plan of Care/Treatment Plan: 1-2x/day, 7 days/week x 1 week. Plan of care has been reviewed with the FACTORY MAINTENANCE MANAGER providing the service under Physical Therapy direction. Initiate Physical Therapy intervention for strengthening, transfers, gait, stairs, balance training, and use of assistive device. DISCHARGE RECOMMENDATIONS: Considering pt's history of management of condition, from a mobility perspective pt is recommended discharge to home environment with HH PT services, family support, and continued use of AD. TREATMENT CODE/TIME: (35 minutes), 05170 Thank you for the opportunity to participate in the care of this patient.
--- NOTE | 2021-08-04 12:57 | PDOC.CMIN ---
- If Service Date Differs Date of service: 08/04/21 Time of Service: 12:57 Care Management Initial Assess REASON FOR HOSPITALIZATION:: Acute on chronic hypoxic respiratory failure, RLL PAST MEDICAL HISTORY/PAST SURGICAL HISTORY:: Medical History (Updated 08/03/21 @ 23:42 by Sydney George MD). 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 Anemia. Anxiety. Anxiety. Aphonia. post total laryngectomy [facility] [place]. Blockage of feeding tube. 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/17). CAD (coronary artery disease). Chronic respiratory failure with hypoxia. Complication of feeding tube. Conjunctivitis, chronic. COPD (chronic obstructive pulmonary disease). Cortical cataract of right eye. Depression. Depressive disorder (11/18/12). Dyspnea on exertion. Feeding tube dysfunction. Hematoma following procedure. Herpes zoster. History of alcoholism. sober x 25yrs. History of tobacco use. Hyperlipemia. Hyperlipidemia (11/18/12). Hypertension. Hypertension (11/18/12). Hypothyroidism. Hypothyroidism (11/18/12). Impingement syndrome, shoulder, left (10/10/16). : PT yomaira. imaging: discuss at fup. Left corneal scar with opacity. Neurotrophic cornea of left eye. Nuclear sclerotic cataract of right eye. Post herpetic neuralgia. Posterior subcapsular age-related cataract, right eye. Primary malignant neoplasm of oropharynx. ; yearly fup in Feb (last ). [facility] [place] SX: 2007. ROR: 1999 + 2007. Pulmonary nodule, right (05/30/15). on chest CT : stable. Restless leg syndrome (02/21/15). Sessile colonic polyp. 12/22/16-SESSILE SERRATED ADENOMA. Tobacco use. Surgical History . Colonoscopy - MAC (12/22/16). EGD - MAC (07/06/17). 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 Sin-mullins button placed by Dr Elia Mcdonald, [facility]. History of esophagogastroduodenoscopy (EGD) (~08/10/19). Daron Casper APRN @ [facility] [place]: hiatal hernia, GERD, Reyes's esophagitis, neuromuscular dysfunction. History of laryngectomy. History of radical laryngectomy. History of tarsorrhaphy. PROCEDURES. RT/LEFT HEART CARD CATH. COMPLETE LARYNGECTOMY. Esophagoplasty. S/P AAA (abdominal aortic aneurysm) repair. Status post cardiac catheterization. Status post cataract extraction and insertion of intraocular lens of left eye (04/30/12). Status post cataract extraction and insertion of intraocular lens of right eye (07/12/18). Status post laryngectomy PREVIOUS FUNCTIONAL STATUS/SOCIAL/FAMILY SUPPORTS:: Pineda lives in [place] with Kiara, his instrument panel assembler and caregiver. 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 Pineda states he is independent with bathing and dressing himself and has the support of Kiara when needed. His nephew, Harsha, is also a source of support for him. Independent with ADLs though requires support with eating. H/O of cancer with trach and home O2. ADVANCE DIRECTIVES:: On file. Nephew Marino Nevarez [facility] Has patient been provided with info about the portal/API?: Yes Did the patient sign up for the portal?: Yes (Previously) CODE STATUS:: Full Code INSURANCE COVERAGE / FINANCIAL ISSUES:: Medicare. Medicaid (superintendent terminal, [facility] high highest). [employer] CURRENT HOME/COMMUNITY SERVICES/EQUIPMENT:: Home O2, trach-[facility]. PRIMARY CARE PHYSICIAN:: [facility] POTENTIAL DISCHARGE NEEDS:: Follow up appointments, evaluations for increased services. PATIENT/FAMILY EDUCATION NEEDS:: Review of discharge instructions, discuss Ask Me Three. ANTICIPATED BARRIERS TO DISCHARGE:: None identified. TRANSPORTATION:: Via private vehicle with SO, or family. PLAN:: Chan will be discharged home witha resumption of services through [facility]. Chan has [facility] high highest. He will follow up with his commmunity providers and plan of care as prescribed and transport with family.
--- NOTE | 2021-08-04 18:30 | W.SURGCON ---
Date of service: 08/04/21 Time of Service: 11:30 Assessment and Plan Assessment and plan (1) G tube feedings: Status: Acute Assessment and plan: -Since G tube is low profile and likely special ordered to the office for tomorrow's appointment, will have tube exchanged once it is obtained from the office. -Continue feeds as tolerated. (2) Laryngeal cancer: Status: None History of Present Illness Narrative: 76 year old male currently admitted for pneumonia who is scheduled for outpatient G tube replacement 08/05/21. I was asked to see the patient in consultation for this since he is currently admitted and will not be able to make his appointment. Patient has not been having any problems with the tube currently in place. Consults Consult date: 08/04/21 Requesting physician: Sydney George Review of Systems All systems reviewed & are unremarkable except as noted in HPI and below PFSH All Active Problems (Updated 08/04/21 @ 16:54 by Pablo Brooks) Occlusion of right vertebral artery (Acute) Conjunctivitis (Acute) Oral thrush (Acute) Discharge planning issues (Acute) DVT prophylaxis (Acute) Right lower lobe pneumonia (Acute) Acute and chronic respiratory failure with hypoxia (Acute) Hypoxemia (Acute) URI (upper respiratory infection) (Acute) Neck pain on left side (Acute) Pneumonia (Acute) Shortness of breath (Acute) Complication of feeding tube (Acute) Peripheral neuropathy (Acute 02/21/15) PAOD (peripheral arterial occlusive disease) (Acute) COPD (chronic obstructive pulmonary disease) (Acute) G tube feedings (Acute) changed 10/04 18F 3cm 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 (Acute) Compression fracture of thoracolumbar vertebra (Acute) Dependence on supplemental oxygen (Chronic) Medical History (Updated 08/04/21 @ 16:54 by Pablo Brooks) 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 Anemia Anxiety Anxiety Aphonia post total laryngectomy [facility] [place] Blockage of feeding tube 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/17) CAD (coronary artery disease) Chronic respiratory failure with hypoxia Complication of feeding tube Conjunctivitis, chronic COPD (chronic obstructive pulmonary disease) Cortical cataract of right eye Depression Depressive disorder (11/18/12) Dyspnea on exertion Feeding tube dysfunction Hematoma following procedure Herpes zoster History of alcoholism sober x 25yrs History of tobacco use Hyperlipemia Hyperlipidemia (11/18/12) Hypertension Hypertension (11/18/12) Hypothyroidism Hypothyroidism (11/18/12) Impingement syndrome, shoulder, left (10/10/16) -2016: PT sugg. 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) Sin-mullins button placed by Dr Elia Mcdonald [facility] History of esophagogastroduodenoscopy (EGD) (~08/10/19) Daron Casper APRN @ [facility] [place]: hiatal hernia, GERD, Reyes's esophagitis, neuromuscular dysfunction History of laryngectomy History of radical laryngectomy History of tarsorrhaphy PROCEDURES RT/LEFT HEART CARD CATH COMPLETE LARYNGECTOMY Esophagoplasty S/P AAA (abdominal aortic aneurysm) repair Status post cardiac catheterization Status post cataract extraction and insertion of intraocular lens of left eye (04/30/12) Status post cataract extraction and insertion of intraocular lens of right eye (07/12/18) Status post laryngectomy Social History Smoking/Tobacco Use Status: Former Tobacco Use Tobacco: How many years used: 30 Smoking risk assessment performed?: Yes Alcohol Intake: never Drug use: Never Substance use type: does not use Current gender identity: male Do you feel safe at home: Yes Do you feel safe in your relationship?: Yes Exam Const General: cooperative, comfortable and no acute distress Neck Neck: other (tracheostomy in place) Resp Effort & Inspection: normal respiratory effort, not labored, no nasal flaring and no respiratory distress GI Inspection: non-distended and other (G tube in place) Palpation: soft, no guarding and nontender Neuro General: patient alert, patient awake and patient oriented x3 Results Last Vital Signs Temp 98.8 F 08/04/21 15:13 Pulse 101 H 08/04/21 17:43 Resp 21 08/04/21 17:43 BP 130/91 H 08/04/21 17:43 Pulse Ox 97 08/04/21 17:43 Labs Result diagrams: 08/04/21 06:02 08/04/21 06:02 Labs: Laboratory Results - last 24 hr 08/04/21 08/04/21 06:02 06:02 WBC 13.71 H D RBC 4.75 Hgb 14.6 Hct 46.5 MCV 97.9 H MCH 30.7 MCHC 31.4 L RDW 14.1 Plt Count 318 MPV 10.2 Immature Gran % 0.4 Neutrophils % 90.1 Lymphocytes % 3.9 Monocytes % 5.3 Eosinophils % 0.0 Basophils % 0.3 Nucleated RBC % 0 Absolute Neutrophils 12.35 H Absolute Lymphocytes 0.53 L Absolute Monocytes 0.73 Absolute Eosinophils 0.00 Absolute Basophils 0.04 Sodium 144 Potassium 3.8 Chloride 105 Carbon Dioxide 27.2 Anion Gap 11.8 H BUN 25 H Creatinine 1.0 Estimated GFR/1.73 m2 >= 60.00 Glucose 140 H Calcium 9.3 Phosphorus 4.2 Magnesium 2.3
[2021-08-04] MEDS: Rosuvastatin 10 MG TAB 40 MG NG (19:13)
[2021-08-04] MEDS: Finasteride 5 MG TAB NG (19:17)
[2021-08-04] MEDS: Acetaminophen 500 MG TAB 1000 MG NG (19:19)
[2021-08-04] MEDS: Normal Saline Flush 10 ML SYR IVP (19:23)
[2021-08-05] VITALS (78 sets, daily range): BP systolic 84–184; BP diastolic 70–107; PULSE 90–112; RESP 1–42; TEMP 36.7; O2SAT 88–99
[2021-08-05] MEDS: PIPERACILLIN/TAZO 3.375 GM in Normal Saline 50 ML IVPB ×2 (01:09→09:33)
[2021-08-05] MEDS: Levothyroxine 112 MCG TAB NG (06:51)
[2021-08-05] MEDS: Nystatin 500000 UNITS/5 ML SUSP 5ML CUP PO ×5 (06:51→20:51)
[2021-08-05] MEDS: Albuterol/Ipratropium 3 ML UPD VIAL UPD ×4 (06:51→23:28)
[2021-08-05] MEDS: Acetylcysteine 20% *ORAL/INHALED* 6000 MG/30 ML VIAL 600 MG UPD ×2 (08:26→20:46)
--- NOTE | 2021-08-05 08:58 | PUCON_ITS ---
General Date Of Service Date of service: 08/05/21 Time of Service: 08:15 Requesting physician: Sydney George Reason for Consult: Hypoxic respiratory failure Assessment and Plan Assessment and plan (1) Right lower lobe pneumonia: Status: Acute (2) Acute and chronic respiratory failure with hypoxia: Status: Acute (3) Laryngeal cancer: Status: None (4) COPD (chronic obstructive pulmonary disease): Status: Acute Assessment and plan: This is a 76 yo man followed by [facility] pulmonary for chronic MRSA pulmonary infections and COPD. 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 I would recommend continuing his home airway clearance regimen. He is currently on Vanc and Zosyn and he seems to be at him baseline. I would recommend another trial of nebulized vancomycin and DS Bactrim for 28 days followed by 28 days off as an alternating schedule to help prevent him from requiring hospitalization. I would also recommend skin decontamination with 4% chlorhexidine showers once a week for a total of 4 doses. I discussed this with his partner Kiara and left a message to discuss this with his primary pulmonary provider at [facility] - Dr. Wall. 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 He is followed at [facility] with Dr. Wall and is currently on an aggressive airway clearance regimen including PO NAC, NAC nebs bid, 3% saline nebs bid, and vest therapy bid. In my review of his [facility] records, it does look like he has been trialed in the past with vanco nebs to try and treat his MRSA, but this was stopped as the patient felt as though there was a burning sensation in the lungs. It does not appear as though this was attempted in conjunction with Bactrim PO therapy. On assessment of his chest CT during this hospital stay, he does not have a significant amount of mucus plugging that would warrant bronchoscopy or more aggressive airway clearance. I also do not think this is due to aspiration. The appearance of his scan seems most consistent with another MRSA pathologic pneumonia. Today he is on his home oxygen requirements and seems close to his baseline. He continues to have a productive cough. Consults Consult date: 08/04/21 Review of Systems All systems reviewed & are unremarkable except as noted in HPI and below PFSH All Active Problems (Updated 08/05/21 @ 09:36 by Maddie Sevilla MD) Occlusion of right vertebral artery (Acute) Conjunctivitis (Acute) Oral thrush (Acute) Discharge planning issues (Acute) DVT prophylaxis (Acute) Right lower lobe pneumonia (Acute) Acute and chronic respiratory failure with hypoxia (Acute) Hypoxemia (Acute) URI (upper respiratory infection) (Acute) Neck pain on left side (Acute) Shortness of breath (Acute) Complication of feeding tube (Acute) Peripheral neuropathy (Acute 02/21/15) PAOD (peripheral arterial occlusive disease) (Acute) COPD (chronic obstructive pulmonary disease) (Acute) G tube feedings (Acute) changed 10/04 18F 3cm 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 (Acute) Compression fracture of thoracolumbar vertebra (Acute) Dependence on supplemental oxygen (Chronic) Medical History (Updated 08/05/21 @ 09:36 by Maddie Sevilla MD) 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 Anemia Anxiety Anxiety 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 Blockage of feeding tube 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/17) CAD (coronary artery disease) Chronic respiratory failure with hypoxia Complication of feeding tube Conjunctivitis, chronic COPD (chronic obstructive pulmonary disease) Cortical cataract of right eye Depression Depressive disorder (11/18/12) Dyspnea on exertion Feeding tube dysfunction Hematoma following procedure Herpes zoster History of alcoholism sober x 25yrs History of tobacco use Hyperlipemia Hyperlipidemia (11/18/12) Hypertension Hypertension (11/18/12) Hypothyroidism Hypothyroidism (11/18/12) Impingement syndrome, shoulder, left (10/10/16) -2016: PT yomaira. 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 Tobacco use Surgical History 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) Sin-mullins button placed by CHRISS Acevedo History of esophagogastroduodenoscopy (EGD) (~08/10/19) Daron Casper APRN @ [facility] [place]: hiatal hernia, GERD, Reyes's esophagitis, neuromuscular dysfunction History of laryngectomy History of radical laryngectomy History of tarsorrhaphy PROCEDURES RT/LEFT HEART CARD CATH COMPLETE LARYNGECTOMY Esophagoplasty S/P AAA (abdominal aortic aneurysm) repair Status post cardiac catheterization Status post cataract extraction and insertion of intraocular lens of left eye (04/30/12) Status post cataract extraction and insertion of intraocular lens of right eye (07/12/18) Status post laryngectomy Social History Smoking/Tobacco Use Status: Former Tobacco Use Tobacco: How many years used: 30 Smoking risk assessment performed?: Yes Alcohol Intake: never Drug use: Never Substance use type: does not use Current gender identity: male Do you feel safe at home: Yes Do you feel safe in your relationship?: Yes Visit Medication and Allergies Active Medications Generic Name Dose Route Start Last Admin Trade Name Freq PRN Reason Stop Dose Admin Acetaminophen 650 mg 08/03/21 20:46 Acetaminophen 650 Mg Supp OH Q4H PRN PRN Acetaminophen 1,000 mg 08/04/21 13:00 08/04/21 19:19 Acetaminophen 500 Mg Tab NG 1,000 mg BID@1300,2100 MYA Administration Acetylcysteine 600 mg 08/04/21 08:30 08/04/21 19:15 Acetylcysteine 600 Mg Cap PO 600 mg BID MYA Administration Acetylcysteine 600 mg 08/05/21 08:30 08/05/21 08:26 Acetylcysteine 20% *Oral/Inhaled* 6000 Mg/30 Ml Vial UPD 600 mg BID MYA Administration Albuterol Sulfate 2.5 mg 08/03/21 20:46 Albuterol 2.5 Mg/3 Ml Inh Soln Vial UPD Q2H PRN PRN Albuterol/Ipratropium 3 ml 08/04/21 12:00 08/05/21 06:51 Albuterol/Ipratropium 3 Ml Upd Vial UPD 3 ml Q6H MYA Administration Amlodipine Besylate 5 mg 08/04/21 08:30 08/04/21 08:03 Amlodipine 5 Mg Tab NG 5 mg DAILY MYA Administration Aspirin 81 mg 08/04/21 08:30 08/04/21 08:03 Aspirin 81 Mg Chew NG 81 mg DAILY MYA Administration Citalopram Hydrobromide 20 mg 08/04/21 08:30 08/04/21 08:03 Citalopram 20 Mg Tab NG 20 mg DAILY MYA Administration Dimethicone/Zinc Oxide 0 gm 08/03/21 20:46 Madeline Protect Cream 142 Gm Tube TP PRN PRN Enoxaparin Sodium 40 mg 08/04/21 22:00 08/04/21 21:33 Enoxaparin 40 Mg/0.4 Ml Syr SC Not Given Q24H [facility] Ferrous Sulfate 325 mg 08/04/21 10:00 08/04/21 10:34 Ferrous Sulfate 325 Mg Tab PO 325 mg DAILY MYA Administration Finasteride 5 mg 08/04/21 20:00 08/04/21 19:17 Finasteride 5 Mg Tab NG 5 mg QPM MYA Administration Gabapentin 200 mg 08/04/21 08:30 08/04/21 19:16 Gabapentin 100 Mg Cap NG 200 mg BID [facility] Administration Guaifenesin 200 mg 08/03/21 20:53 Guaifenesin 200 Mg/10 Ml Cup NG Q4H PRN PRN Vancomycin/PEG/NADA/Lysine/Water 1 gm in 200 mls @ 200 mls/hr 08/04/21 10:00 08/04/21 21:59 Vancocin Injection IV Not Given Q12H [facility] Protocol Piperacillin Sod/Tazobactam 50 mls @ 100 mls/hr 08/04/21 02:00 08/05/21 06:51 Sod 3.375 gm/ Sodium Chloride IVPB Infused Q6H [facility] Infusion Protocol IV Miscellaneous Supplies 1 each 08/03/21 08:45 Iv Access IV DIRECTED [facility] Levothyroxine Sodium 112 mcg 08/05/21 06:00 08/05/21 06:51 Levothyroxine 112 Mcg Tab NG 112 mcg 0600 MYA Administration Melatonin 6 mg 08/03/21 22:00 08/04/21 19:21 Melatonin 3 Mg Tab PO 6 mg HS MYA Administration Morphine Sulfate 2 mg 08/04/21 01:38 08/04/21 01:45 Morphine 2 Mg/Ml Syr IVP 2 mg Q2H PRN PRN Administration Moxifloxacin HCl 0 ml 08/04/21 08:30 08/04/21 19:22 Moxifloxacin 0.5% 3 Ml Btl OS Not Given TID [facility] Nystatin 500,000 units 08/04/21 06:00 08/05/21 06:51 Nystatin 153326 Units/5 Ml Susp 5ml Cup PO 500,000 units 5X/DAY MYA Administration Omeprazole 20 mg 08/04/21 07:30 08/04/21 19:18 Omeprazole 20 Mg Capcr NG 20 mg BID@0730,1999 MYA Administration Pt's Own Alfuzosin [ 1 each 08/04/21 08:30 08/04/21 09:03 Uroxatral] 10 Mg NG Not Given Ertablet DAILY [facility] Pt's Own 1 each 08/04/21 20:00 08/04/21 20:15 Bifidobacterium NG 1 each Infantis [Align] 4 QPM MAY Administration Mg Capsule Patient Own Medication 0 each 08/04/21 18:25 08/05/21 01:28 Patient's Own Medication 1 Each Misc PO 1 each QID PRN PRN Administration Restless legs Prednisone 40 mg 08/05/21 08:30 Prednisone 20 Mg Tab PO 08/10/21 08:29 DAILY [facility] Ropinirole HCl 1 mg 08/04/21 08:30 08/04/21 19:17 Ropinirole 1 Mg Tab NG 1 mg BID MYA Administration Rosuvastatin Calcium 40 mg 08/04/21 20:00 08/04/21 19:13 Rosuvastatin 10 Mg Tab NG 40 mg QPM MYA Administration Sodium Chloride 0 ml 08/03/21 10:46 08/04/21 19:23 Normal Saline Flush 10 Ml Syr IVP 20 ml PRN PRN Administration Sodium Chloride 4 ml 08/04/21 08:30 08/04/21 20:15 Sodium Chloride 3% For Inhalation 15 Ml Vial IH 4 ml BID MYA Administration Allergies pollen extracts Allergy (Mild, Verified 08/03/21 09:02) Tetracyclines Allergy (Unknown, Verified 08/03/21 09:02) SKIN RASH Exam Narrative Exam Narrative: Gen: NAD, normal respiratory effort, well-nourished HENT: PERRL, nasal turbinates normal without erythema or inflammation, moist oral mucosa, larengectomy stoma present, No LAD or JVD Chest: No respiratory distress, normal appearance of chest, crackles present throughout, no wheezes, normal inspiratory effort Heart: regular rate and rhythym, no murmurs, rubs or gallops Abdomen: Non-distended, soft, non tender Extremities: No clubbing, edema, cyanosis, rashes Neuro: AAOx3 , non focal Psych: cooperative, appropriate mental affect Results Last Vital Signs Temp 37.1 C 08/04/21 15:13 Pulse 92 H 08/05/21 07:42 Resp 13 08/05/21 07:42 BP 157/88 H 08/05/21 07:42 Pulse Ox 97 08/05/21 07:40 Labs Result diagrams: 08/04/21 06:02 08/04/21 06:02
[2021-08-05] MEDS: Aspirin 81 MG CHEW NG (09:34)
[2021-08-05] MEDS: Acetylcysteine 600 MG CAP PO ×2 (09:34→20:52)
[2021-08-05] MEDS: amLODIPine 5 MG TAB NG (09:34)
[2021-08-05] MEDS: rOPINIRole 1 MG TAB NG ×2 (09:34→20:52)
[2021-08-05] MEDS: Omeprazole 20 MG CAPCR NG ×2 (09:34→20:50)
[2021-08-05] MEDS: Ferrous Sulfate 325 MG TAB PO (09:34)
[2021-08-05] MEDS: Gabapentin 100 MG CAP 200 MG NG ×2 (09:35→20:50)
[2021-08-05] MEDS: Citalopram 20 MG TAB NG (09:35)
[2021-08-05] MEDS: predniSONE 20 MG TAB 40 MG PO (09:35)
[2021-08-05] MEDS: Moxifloxacin 0.5% 3 ML BTL OS ×3 (10:21→20:54)
[2021-08-05] MEDS: Acetaminophen 325 MG TAB PO (10:25)
--- NOTE | 2021-08-05 10:42 | CMPROGNOTE_ITS ---
- If Service Date Differs Date of service: 08/05/21 Time of Service: 10:42 Care Management Progress Note S/O: Pineda was sitting up in bed today when CM met with him. He reported that he was feeling good today. He stated that he expects Kiara, his partner and caregiver, to visit today. Per report, he will likely transition to med/surge today, as he is clinically improving. CM will continue to follow. A: Chan is a 76 year old male admitted to [facility] on 08/03/21 with acute on chronic hypoxic respiratory failure. P: Chan will be discharged home witha resumption of services through [facility]. Chan has [facility] high highest. He will follow up with his community providers and plan of care as prescribed and transport with family.
--- NOTE | 2021-08-05 11:07 | W.PM.PROGNOT ---
Date of Service Date of service: 08/05/21 Time of Service: 11:08 Assessment and Plan Assessment and plan (1) Pneumonia: Assessment and plan: dc Zosyn; sputum culture positie for MRSA. Will continue iv vancomcyin while and inpatient and transition to outpatient nebulized Bactrim and Vancomycin. He will also be starting on chlorhexidine baths. Qualifiers: Pneumonia type: due to methicillin-resistant Staphylococcus aureus (MRSA) Laterality: right Lung location: lower lobe of lung Qualified Code(s): J15.212 - Pneumonia due to Methicillin resistant Staphylococcus aureus (2) Acute and chronic respiratory failure with hypoxia: Status: Acute Assessment and plan: As above. Patient is now back to his baseline oxygen needs. He is on 5 lpm aerosolzed trach mask. (3) COPD (chronic obstructive pulmonary disease): Status: Acute Assessment and plan: Patient was started on Solu-Medrol by the physical therapist aide because of increased bronchospasm associated with thickened purulent secretions. Continue current antibiotic treatment for pneumonia as above. Continue bronchodilators patient is on oral Mucomyst capsules. I would consider changing to Mucomyst aerosol treatments but will defer to his cotton presser. I spoke w/ Dr. Sevilla this morning and she was going to speak w/ RT and pharmacy about resuming him on his Mucomyst aerosols. I have switched him to oral prednisone from his Solu-Medrol. (4) Neck pain on left side: Status: Acute Assessment and plan: Problems musculoskeletal function. Better today. 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 However no acute issues were found with his trachea. (5) Conjunctivitis: Status: Acute Assessment and plan: cont. 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 consult surgery for his scheduled feeding tube exchange (he was scheduled to see Dr. Riley as outpatient tomorrow) I spoke w/ Dr. Garcia today. She was going to change his feeding tube today but spoke w/ Dr. Riley and she indicated that she will do it tomorrow. (7) Oral thrush: Status: Acute Assessment and plan: nystatin swish and swallow (8) DVT prophylaxis: Status: Acute Assessment and plan: enoxaparin 40 mg SC daily (9) Discharge planning issues: Status: Acute Assessment and plan: full code per Dr. George's discussion w/ patient and his partner. Patient remains in ICU since yesterday although clinically he has been stable and I wrote for him to go to the med/surg floor yesterday but d/t lack of staffing he remained in ICU overnight. I will plan on discharge home in the next [address] Sevilla will continue to follow him as outpatient and put him on nebulized anti-Staphylococcal medications ( aerosolized Vancomycin and Bactrim). Subjective Subjective Interval history since last seen: Patient refused his vancomycin last night. However this morning he was willing to receive his Vancomcyin and Zosyn. Dr. Sevilla spoke w/ me about putting him on home nebulized antibiotics including nebulized vancomycin and trimethoprim/sulfamethoxaxole going daily treatments x 28 days, repeat cycle every other month. Exam Narrative Exam Narrative: Elderly white male sitting up on side of his bed. He is in no respiratory distress. Lungs: scattered rhonchi and wheezes; Heart: regular but tachycardic Abdomen: soft, nontender; legs/feet: no edema Objective Last Vital Signs Temp 37.1 C 08/04/21 15:13 Pulse 98 H 08/05/21 09:36 Resp 20 08/05/21 09:36 BP 157/88 H 08/05/21 07:42 Pulse Ox 95 08/05/21 09:38
--- NOTE | 2021-08-05 11:21 | W.NUTCONSULT ---
Date of service: 08/05/21 Time of Service: 11:22 Nutritional Consult ASSESSMENT: Chan admitted to ICU with respiratory failure, with COPD exacerbation, Hx of laryngel cancer with dysphagia and s/p laryngectomy and peg placement with chronic MRSA pulmonary infections. Now with oral thrush. Met with Chan, he reports not taking any tube feeding at home as prefers to eat. Has been able to maintain weight in last 3 months, but has lost > 10% of weight loss in last 6 months. BMI low but wnl. Following puree diet with thin liquids with excellent intake (>75% of meals). Estimated Needs: 1386-1984 kcal, 80-99 g protein, 2000 ml fluid. Prescribed 3 containers Nutren 2.0( 237 ml per carton) providing a total of 1440 kcal, 115 g protein and 525 ml free fluid. Meeting 80% of calorie need, 100% protein need and 25% of fluid need. Continue to encourage po intake/fluid intake. NUTRITIONAL DIAGNOSIS: Dysphagia s/p laryngectomy INTERVENTION: continue to provide puree diet with thin liquids. Bolus 1 carton Nutren @ 8 am, Noon and 5 pm or as convenient. Flush 50 ml water pre/post bolus. MONITORING AND EVALUATION: weight, po intake, labs. Time Spent in Nutritional Counseling and Treatment: 5
[2021-08-05] MEDS: Acetaminophen 500 MG TAB 1000 MG NG ×2 (13:57→20:51)
[2021-08-05] MEDS: Chlorhexidine 4% 120 ML BTL TP (13:57)
--- NOTE | 2021-08-05 14:56 | PHA.REVIEW ---
Pharmacy Admission Review - Admission Clinical Review (Last Updated 08/05/21 @ 09:36 by Maddie Sevilla MD) Occlusion of right vertebral artery (Acute) Conjunctivitis (Acute) Oral thrush (Acute) Discharge planning issues (Acute) DVT prophylaxis (Acute) Right lower lobe pneumonia (Acute) Acute and chronic respiratory failure with hypoxia (Acute) Hypoxemia (Acute) URI (upper respiratory infection) (Acute) Neck pain on left side (Acute) COPD (chronic obstructive pulmonary disease) (Acute) G tube feedings (Acute) 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 (Acute) pollen extracts Allergy (Mild, Verified 08/03/21 09:02) Tetracyclines Allergy (Unknown, Verified 08/03/21 09:02) SKIN RASH Resuscitation Status Full Code Height 5 ft 8.5 in Weight 66.2 kg - Renal Dosing Renal Dosing: BUN 25 mg/dL (7-18) H 08/04/21 06:02 Creatinine 1.0 mg/dL (0.70-1.30) 08/04/21 06:02 Medications needing adjustments: Reviewed List of meds needing interventions: eCrCl 59 ml/min, orders ok - Anticoagulation Anticoagulation: Hgb 14.6 g/dL (13.5-17.5) 08/04/21 06:02 Hct 46.5 % (40.0-50.0) 08/04/21 06:02 Plt Count 318 10^3/uL (130-400) 08/04/21 06:02 Creatinine 1.0 mg/dL (0.70-1.30) 08/04/21 06:02 DVT Prophylaxis: Reviewed Medications: Enoxaparin - Opiate Usage Evaluate Pain Scale/Pains Meds: Reviewed (morphine prn) Scheduled Bowel Reg ordered if on Opiates?: No - Relevant Labs Sodium 144 mmol/L (136-145) 08/04/21 06:02 Potassium 3.8 mmol/L (3.5-5.1) 08/04/21 06:02 Chloride 105 mmol/L (98-107) 08/04/21 06:02 Phosphorus 4.2 mg/dL (2.6-4.7) 08/04/21 06:02 Magnesium 2.3 mg/dL (1.8-2.4) 08/04/21 06:02 Electrolytes, C-Reactive P, ESR: Reviewed - DM Control DM Control: Glucose 140 mg/dL (74-106) H 08/04/21 06:02 Insulin Dosing: Reviewed - Heart Failure/SC Heart Failure/SC: Troponin I < 50 ng/L (<or=60) 08/03/21 13:40 EF%, MARK's, B-Blockers, Diuretics: Reviewed - BP Control BP Control: Blood Pressure 157/88 Blood Pressure 139/85 If elevated: Reviewed - Qtc Review If Elevated: Reviewed List meds needing interventions: QTc 512 on admission - IV to PO Switch IV Medications: Reviewed - Home Meds Home Med List reviewed: Reviewed Relevent Home Meds Not ordered & why?: all ordered - Current meds Current Medication Order Review: Reviewed (IV zosyn and vanco have been dc'd -- PO DS bactrim and nebulized vanco started today)
--- NOTE | 2021-08-05 16:06 | PT.INTREAT ---
Date of service: 08/05/21 Time of Service: 16:06 PT Notes Visit Reasons: Acute on Chronic Hypoxic Respiratory Failure, RLL Inpatient Physical Therapy Treatment Note [facility] Date: 08/05/2021 PRECAUTIONS: Fall. Low endurance. Needs frequent rests. G-tube in place. On chronic oxygen supplementation. Trach tube in place. SUBJECTIVE: Agreeable to PT sessions in AM and PM. HOpeful to go home as soon as he is cleared medically. Has been vouching for his significant other Kiara who he says has been very much involved with his care. OBJECTIVE: Oxygen supp on. Tach tube on. G-tube in place. Telemetry monitoring in place. PAIN: Denies BED MOBILITY/TRANSFERS Sit-stand: Supervision Stand-sit: Supervision Bed-Chair: Supervision Chair-bed: Supervision GAIT Assistive Device: FWW Weight bearing: FWB Assist: CGA Distance: 3 steps forward and 3 steps backwards; the afternoon was able to perform 3 steps sideways to the right and 3 steps sideways along with 3 steps forward and 3 steps back Deviation: Slow bacilio. VITALS: Within normal limits as monitored via telemetry THEREX: Work on standing level exercises while holding onto front wheeled walker to increase dynamic standing balance. Also worked on increasing safety of sit to stand from edge of bed. Mild shortness of breath that subsided with rest. ASSESSMENT: Patient cooperative and looks forward to working with PT so that he can achieve his goals. DISCHARGE RECOMMENDATIONS: [] Home with no services [] [X] Home with services. Patient will benefit from home health PT services in order to progress mobility level using least restrictive assistive ambulatory device, assess home safety, identify additional equipment needs, and establish a functional maintenance program that will increase ability of patient to remain at home. [] Home with outpatient PT [] [] SNF for continued rehabilitation [] [] [facility] [] [] SNF versus LTC based on ability to participate and progress [] TREATMENT CODE/TIME: Session 1??42823 x 15 minutes, [id number] x 9 minutes beginning at 10:53 AM. Session 2??[id number] x 24 minutes beginning at 16:06 PM.
--- NOTE | 2021-08-05 18:04 | PDOC.STREC ---
Date of service: 08/05/21 Time of Service: 18:04 Speech Therapy Recommendations Report ST Recommendations: ENGINEERING TEST MECHANIC Communication / Non-Treatment Note Consult order received; chart reviewed. ENGINEERING TEST MECHANIC spoke with ICU staff/Jabari re: current patient status, reason for consult from Dr George ie concerns for aspiration pna given known dysphagia and presence of a gastrostomy tube as well as location of the infiltrate. Per ICU staff, patient is tolerating home diet (pureed solids, thin liquids) well at this time, sitting in bed, reading newspaper, no s/sx distress/discomfort; here for oral thrush, pulmonary concerns which are being treated. Patient communicates effectively with electrolarynx. 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 Provided education to staff re patient's pmhx which would render aspiration highly unlikely, ie opening between esophagus and airway has been surgically repaired and had been considered well-healed per [facility] [place] as of 02/13/20; aspiration would only occur if fistula/leak is present. Patient is likely to continue 'coughing' / bringing mucous up through stoma given current pulmonary status. Recommendations: - If there is concern for re-opened transesophageal fistula, and/or further esophageal stricture (ie, if pt status changes/reports increase in esophgeal stasis/globus), recommend repeat *Barium swallow + ENT consult for further surgical management as warranted - Ensure patient has adequately functioning portable suction device at home (question of properly working suction device in home setting per [facility] [place]) Plan: Please re-consult ENGINEERING TEST MECHANIC PRN and/or with questions/further concerns. No further acute ENGINEERING TEST MECHANIC services warranted at this time. Ashely Centeno MA [facility]-ENGINEERING TEST MECHANIC Speech-Language Pathologist [place]#[phone] Coding
[2021-08-05] MEDS: VANCOMYCIN/WATER (PEG) 1 GM/200 ML BAG IV (18:21)
[2021-08-05] MEDS: MORPHine 2 MG/ML SYR IVP ×2 (18:36→23:25)
[2021-08-05] MEDS: Rosuvastatin 10 MG TAB 40 MG NG (20:51)
[2021-08-05] MEDS: Melatonin 3 MG TAB 6 MG PO (20:52)
[2021-08-05] MEDS: Finasteride 5 MG TAB NG (20:52)
[2021-08-05] MEDS: Enoxaparin 40 MG/0.4 ML SYR SC (22:05)
[2021-08-06] VITALS (9 sets, daily range): BP systolic 108–158; BP diastolic 54–93; PULSE 92–104; RESP 2–20; TEMP 36.2–36.9; O2SAT 91–99
--- NOTE | 2021-08-06 01:18 | NUR.NOTE ---
Nursing Note: transferred pt from ICU to med-surg floor at 00:29
[2021-08-06] MEDS: Albuterol/Ipratropium 3 ML UPD VIAL UPD ×3 (05:10→17:47)
[2021-08-06] MEDS: Nystatin 500000 UNITS/5 ML SUSP 5ML CUP PO ×5 (05:12→21:19)
[2021-08-06] MEDS: Levothyroxine 112 MCG TAB NG (05:13)
[2021-08-06] MEDS: Normal Saline Flush 10 ML SYR IVP ×3 (05:13→17:48)
[2021-08-06] MEDS: VANCOMYCIN/WATER (PEG) 1 GM/200 ML BAG IV ×2 (05:15→17:48)
[2021-08-06 06:53] LABS: Platelet Count 329 10^3/uL (130-400)
[2021-08-06] MEDS: predniSONE 20 MG TAB 40 MG PO (08:27)
[2021-08-06] MEDS: Omeprazole 20 MG CAPCR NG ×2 (08:28→21:21)
[2021-08-06] MEDS: Gabapentin 100 MG CAP 200 MG NG ×2 (08:28→21:20)
[2021-08-06] MEDS: rOPINIRole 1 MG TAB NG ×2 (08:28→21:17)
[2021-08-06] MEDS: Aspirin 81 MG CHEW NG (08:28)
[2021-08-06] MEDS: amLODIPine 5 MG TAB NG (08:28)
[2021-08-06] MEDS: Acetylcysteine 600 MG CAP PO ×2 (08:28→21:19)
[2021-08-06] MEDS: Citalopram 20 MG TAB NG (08:28)
[2021-08-06] MEDS: Sulfameth/Trimeth DS TAB 1 TAB PO (08:28)
[2021-08-06] MEDS: Ferrous Sulfate 325 MG TAB PO (08:28)
[2021-08-06] MEDS: Moxifloxacin 0.5% 3 ML BTL OS ×3 (08:29→21:27)
--- NOTE | 2021-08-06 09:07 | W.PULMPROG ---
Assessment and Plan Assessment and plan (1) Right lower lobe pneumonia: Status: Acute (2) Acute and chronic respiratory failure with hypoxia: Status: Acute (3) Laryngeal cancer: Status: None (4) COPD (chronic obstructive pulmonary disease): Status: Acute Assessment and plan: This is a 76 yo man followed by [facility] pulmonary for chronic MRSA pulmonary infections and COPD. 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 I would recommend continuing his home airway clearance regimen. I started him on nebulized vancomycin yesterday and he seemed to tolerate this. He is also on PO Bactrim. He remains on IV vancomycin but in my opinion this can be discontinued. We will move forward with a 28 day regimen of nebulized vanc bid and DS Bactrim daily in addition to his airway clearance regimen. I will set follow up for him in 3 weeks to touch base on this regimen. I will attempt to coordinate with Dr. Wall regarding his care moving forward. From a respiratory perspective he is close to baseline and is likely safe for discharge. MRSA Pulmonary Infection - can D/C IV Vanc - continue nebulized vanomycin 250mg in 5cc sterile water bid - please discharge on this for a 28 day total - start Bactrim DS - please discharge on this, again for 28 days - 4% chlorhexidine showers weekly for a total of 3 more weeks - please discharge with this - continue home bid 3% saline nebs, NAC PO, NAC nebs bid, vest therapy bid - prednisone 40mg for 5 days total COPD - start Stiolto - continue PO NAC General Date Of Service Date of service: 08/06/21 Time of Service: 08:30 Requesting physician: Sydney George Reason for Consult: Pneumonia Subjective 24 Hour Events: Chan is doing much better. His secretions have improved significantly. He tolerated the nebulized vancomycin well yesterday. I did reach out to his composite engineer at [facility] but have yet to hear back. He is back on stable home oxygen support. He did receive the first of 4 chlorhexidine baths in ICU yesterday. Exam Const General: no acute distress Nutritional Appearance: well nourished [facility] Head: normocephalic Ears: external ears normal and no periauricular adenopathy General nose exam: nasal mucous membranes and turbinates normal Face and sinus: sinuses nontender Mouth: oropharynx normal and moist mucous membranes Teeth and gingiva: dentition normal Eyes General: appearance normal, both eyes and all related structures Pupils: PERRL Neck Neck: no lymphadenopathy and tracheostomy present Chest Chest: normal inspection of the chest Resp Effort & Inspection: normal respiratory effort Auscultation: clear to auscultation bilaterally, no rales, no rhonchi and no wheezes Cardio Rate: regular rate Rhythm: regular rhythm Heart Sounds: S1 normal, S2 normal and no murmurs Pulses: radial pulses present Objective Last Vital Signs Temp 36.9 C 08/06/21 08:17 Pulse 92 H 08/06/21 08:17 Resp 20 08/06/21 08:17 BP 111/77 08/06/21 08:17 Pulse Ox 91 L 08/06/21 08:17 Laboratory Results - last 24 hr 08/06/21 06:45 Plt Count 329 Results Medications Medications: Active Medications Generic Name Dose Route Start Last Admin Trade Name Freq PRN Reason Stop Dose Admin Acetaminophen 650 mg 08/03/21 20:46 Acetaminophen 650 Mg Supp SD Q4H PRN PRN Acetaminophen 1,000 mg 08/04/21 13:00 08/05/21 20:51 Acetaminophen 500 Mg Tab NG 1,000 mg BID@1300,2100 MYA Administration Acetaminophen 325 - 650 mg 08/05/21 09:59 08/05/21 10:25 Acetaminophen 325 Mg Tab PO 650 mg Q4H PRN PRN Administration Acetylcysteine 600 mg 08/04/21 08:30 08/06/21 08:28 Acetylcysteine 600 Mg Cap PO 600 mg BID MYA Administration Acetylcysteine 600 mg 08/05/21 08:30 08/05/21 20:46 Acetylcysteine 20% *Oral/Inhaled* 6000 Mg/30 Ml Vial UPD 600 mg BID MYA Administration Albuterol Sulfate 2.5 mg 08/03/21 20:46 Albuterol 2.5 Mg/3 Ml Inh Soln Vial UPD Q2H PRN PRN Albuterol/Ipratropium 3 ml 08/04/21 12:00 08/06/21 05:10 Albuterol/Ipratropium 3 Ml Upd Vial UPD 3 ml Q6H MYA Administration Amlodipine Besylate 5 mg 08/04/21 08:30 08/06/21 08:28 Amlodipine 5 Mg Tab NG 5 mg DAILY MYA Administration Aspirin 81 mg 08/04/21 08:30 08/06/21 08:28 Aspirin 81 Mg Chew NG 81 mg DAILY MYA Administration Chlorhexidine Gluconate 120 ml 08/05/21 12:00 08/05/21 13:57 Chlorhexidine 4% 120 Ml Btl TP 120 ml Q7D MYA Administration Citalopram Hydrobromide 20 mg 08/04/21 08:30 08/06/21 08:28 Citalopram 20 Mg Tab NG 20 mg DAILY MYA Administration Vancomycin HCl 250 mg/ Sterile 0 mg 08/05/21 10:00 08/05/21 22:05 Water 5 ml UD 250 mg Q12H MYA Administration Device 1 each 08/05/21 10:00 Inhaler, Assist Device MC DIRECTED [facility] Dimethicone/Zinc Oxide 0 gm 08/03/21 20:46 Madeline Protect Cream 142 Gm Tube TP PRN PRN Enoxaparin Sodium 40 mg 08/04/21 22:00 08/05/21 22:05 Enoxaparin 40 Mg/0.4 Ml Syr SC 40 mg Q24H MYA Administration Ferrous Sulfate 325 mg 08/04/21 10:00 08/06/21 08:28 Ferrous Sulfate 325 Mg Tab PO 325 mg DAILY MYA Administration Finasteride 5 mg 08/04/21 20:00 08/05/21 20:52 Finasteride 5 Mg Tab NG 5 mg QPM MYA Administration Gabapentin 200 mg 08/04/21 08:30 08/06/21 08:28 Gabapentin 100 Mg Cap NG 200 mg BID MYA Administration Guaifenesin 200 mg 08/03/21 20:53 Guaifenesin 200 Mg/10 Ml Cup NG Q4H PRN PRN Vancomycin/PEG/NADA/Lysine/Water 1 gm in 200 mls @ 0 mls/hr 08/05/21 18:00 08/06/21 05:15 Vancocin Injection IV 200 mls/hr Q12H MYA Administration Protocol Per Protocol IV Miscellaneous Supplies 1 each 08/03/21 08:45 Iv Access IV DIRECTED [facility] Levothyroxine Sodium 112 mcg 08/05/21 06:00 08/06/21 05:13 Levothyroxine 112 Mcg Tab NG 112 mcg 0600 MYA Administration Melatonin 6 mg 08/03/21 22:00 08/05/21 20:52 Melatonin 3 Mg Tab PO 6 mg HS MYA Administration Morphine Sulfate 2 mg 08/04/21 01:38 08/05/21 23:25 Morphine 2 Mg/Ml Syr IVP 2 mg Q2H PRN PRN Administration Moxifloxacin HCl 0 ml 08/04/21 08:30 08/06/21 08:29 Moxifloxacin 0.5% 3 Ml Btl OS 1 drp TID MYA Administration Nystatin 500,000 units 08/04/21 06:00 08/06/21 05:12 Nystatin 802624 Units/5 Ml Susp 5ml Cup PO 500,000 units 5X/DAY MYA Administration Omeprazole 20 mg 08/04/21 07:30 08/06/21 08:28 Omeprazole 20 Mg Capcr NG 20 mg BID@ MYA Administration Pt's Own Alfuzosin [ 1 each 08/04/21 08:30 08/06/21 08:28 Uroxatral] 10 Mg NG 1 each Ertablet DAILY MYA Administration Pt's Own 1 each 08/04/21 20:00 08/05/21 20:49 Bifidobacterium NG 1 each Infantis [Align] 4 QPM MYA Administration Mg Capsule Patient's Own 0 each 08/04/21 18:25 08/05/21 01:28 Medication (Salazar's PO 1 each Leg Cramps QID PRN PRN Administration Homeopathic Remedy Restless legs Otc) Prednisone 40 mg 08/05/21 08:30 08/06/21 08:27 Prednisone 20 Mg Tab PO 08/10/21 08:29 40 mg DAILY MYA Administration Ropinirole HCl 1 mg 08/04/21 08:30 08/06/21 08:28 Ropinirole 1 Mg Tab NG 1 mg BID MYA Administration Rosuvastatin Calcium 40 mg 08/04/21 20:00 08/05/21 20:51 Rosuvastatin 10 Mg Tab NG 40 mg QPM MYA Administration Sodium Chloride 0 ml 08/03/21 10:46 08/06/21 07:13 Normal Saline Flush 10 Ml Syr IVP 10 ml PRN PRN Administration Sodium Chloride 4 ml 08/04/21 08:30 08/05/21 20:55 Sodium Chloride 3% For Inhalation 15 Ml Vial IH 4 ml BID MYA Administration Tiotropium [place]/Olodaterol 2 puff 08/06/21 08:30 Tiotropium/Olodaterol 10 Puff Inhaler IH DAILY MYA Trimethoprim/Sulfamethoxazole 1 tab 08/06/21 08:30 08/06/21 08:28 Sulfameth/Trimeth Ds Tab PO 1 tab DAILY MYA Administration Allergies pollen extracts Allergy (Mild, Verified 08/03/21 09:02) Tetracyclines Allergy (Unknown, Verified 08/03/21 09:02) SKIN RASH Labs Result Diagrams: 08/06/21 06:45 08/04/21 06:02 Labs: 08/04/21 13:00 Sputum - Expectorated Sputum Culture - Preliminary Staph aureus, MRSA Normal Joie 08/04/21 13:00 Sputum - Expectorated Gram Stain - Final 08/03/21 16:55 Sputum Sputum Culture - Final Staph aureus, MRSA Normal Joie 08/03/21 16:55 Sputum Gram Stain - Final 08/03/21 14:17 Blood Blood Culture - Preliminary NO GROWTH 48 HOURS 08/03/21 14:05 Blood Blood Culture - Preliminary NO GROWTH 48 HOURS Laboratory Tests Range/Units 08/03/21 08/03/21 08/03/21 08:45 08:45 08:55 WBC (4.4-10.8) 10^3/uL 20.86 H RBC (4.36-5.78) 10^6/uL 4.94 Hgb (13.5-17.5) g/dL 15.1 Hct (40.0-50.0) % 47.2 MCV (80-95) fL 95.5 H MCH (27.0-33.0) pg 30.6 MCHC (32.0-36.0) % 32.0 RDW (11.8-14.1) % 13.9 Plt Count (130-400) 10^3/uL 309 MPV (8.0-11.0) fL 9.7 Immature Gran % 0.3 Neutrophils % 90.7 Lymphocytes % 3.1 Monocytes % 4.7 Eosinophils % 0.5 Basophils % 0.7 Nucleated RBC % % 0 Absolute Neutrophils (1.2-6.7) 10^3/uL 18.92 H Absolute Lymphocytes (1.2-3.4) 10^3/uL 0.65 L Absolute Monocytes (0.1-0.8) 10^3/uL 0.98 H Absolute Eosinophils (0.0-0.7) 10^3/uL 0.10 Absolute Basophils (0.0-0.2) 10^3/uL 0.15 VBG Lactate (0.6-1.4) mmol/L Sodium (136-145) mmol/L 139 Potassium (3.5-5.1) mmol/L 3.3 L Chloride (98-107) mmol/L 99 Carbon Dioxide (21.0-32.0) mmol/L 33.4 H Anion Gap (3-11) mmol/L 6.6 BUN (7-18) mg/dL 23 H Creatinine (0.70-1.30) mg/dL 1.0 Estimated GFR/1.73 m2 (mL/min/1.73m2) >= 60.00 Glucose (74-106) mg/dL 133 H Calcium (8.5-10.1) mg/dL 9.3 Phosphorus (2.6-4.7) mg/dL Magnesium (1.8-2.4) mg/dL 2.2 Total Bilirubin (0.2-1.0) mg/dL 0.5 AST (15-37) U/L 20 ALT (16-63) U/L 18 Alkaline Phosphatase (46-116) U/L 104 Troponin I (<or=60) ng/L < 50 Total Protein (6.4-8.2) g/dL 8.0 Albumin (3.4-5.0) g/dL 3.5 Procalcitonin ng/mL COVID-19 Source Nasal/Nares SARS-CoV-2 (PCR) (Negative) Negative Influenza Type A (PCR) (Negative) Influenza Type B (PCR) (Negative) RSV (PCR) (Negative) Range/Units 08/03/21 08/03/21 08/03/21 13:40 14:05 16:15 WBC (4.4-10.8) 10^3/uL RBC (4.36-5.78) 10^6/uL Hgb (13.5-17.5) g/dL Hct (40.0-50.0) % MCV (80-95) fL MCH (27.0-33.0) pg MCHC (32.0-36.0) % RDW (11.8-14.1) % Plt Count (130-400) 10^3/uL MPV (8.0-11.0) fL Immature Gran % Neutrophils % Lymphocytes % Monocytes % Eosinophils % Basophils % Nucleated RBC % % Absolute Neutrophils (1.2-6.7) 10^3/uL Absolute Lymphocytes (1.2-3.4) 10^3/uL Absolute Monocytes (0.1-0.8) 10^3/uL Absolute Eosinophils (0.0-0.7) 10^3/uL Absolute Basophils (0.0-0.2) 10^3/uL VBG Lactate (0.6-1.4) mmol/L 1.1 Sodium (136-145) mmol/L Potassium (3.5-5.1) mmol/L Chloride (98-107) mmol/L Carbon Dioxide (21.0-32.0) mmol/L Anion Gap (3-11) mmol/L BUN (7-18) mg/dL Creatinine (0.70-1.30) mg/dL Estimated GFR/1.73 m2 (mL/min/1.73m2) Glucose (74-106) mg/dL Calcium (8.5-10.1) mg/dL Phosphorus (2.6-4.7) mg/dL Magnesium (1.8-2.4) mg/dL Total Bilirubin (0.2-1.0) mg/dL AST (15-37) U/L ALT (16-63) U/L Alkaline Phosphatase (46-116) U/L Troponin I (<or=60) ng/L < 50 Total Protein (6.4-8.2) g/dL Albumin (3.4-5.0) g/dL Procalcitonin ng/mL 0.1 COVID-19 Source Nasopharynx SARS-CoV-2 (PCR) (Negative) Negative Influenza Type A (PCR) (Negative) Negative Influenza Type B (PCR) (Negative) Negative RSV (PCR) (Negative) Negative Range/Units 08/04/21 08/04/21 08/06/21 06:02 06:02 06:45 WBC (4.4-10.8) 10^3/uL 13.71 H D RBC (4.36-5.78) 10^6/uL 4.75 Hgb (13.5-17.5) g/dL 14.6 Hct (40.0-50.0) % 46.5 MCV (80-95) fL 97.9 H MCH (27.0-33.0) pg 30.7 MCHC (32.0-36.0) % 31.4 L RDW (11.8-14.1) % 14.1 Plt Count (130-400) 10^3/uL 318 329 MPV (8.0-11.0) fL 10.2 Immature Gran % 0.4 Neutrophils % 90.1 Lymphocytes % 3.9 Monocytes % 5.3 Eosinophils % 0.0 Basophils % 0.3 Nucleated RBC % % 0 Absolute Neutrophils (1.2-6.7) 10^3/uL 12.35 H Absolute Lymphocytes (1.2-3.4) 10^3/uL 0.53 L Absolute Monocytes (0.1-0.8) 10^3/uL 0.73 Absolute Eosinophils (0.0-0.7) 10^3/uL 0.00 Absolute Basophils (0.0-0.2) 10^3/uL 0.04 VBG Lactate (0.6-1.4) mmol/L Sodium (136-145) mmol/L 144 Potassium (3.5-5.1) mmol/L 3.8 Chloride (98-107) mmol/L 105 Carbon Dioxide (21.0-32.0) mmol/L 27.2 Anion Gap (3-11) mmol/L 11.8 H BUN (7-18) mg/dL 25 H Creatinine (0.70-1.30) mg/dL 1.0 Estimated GFR/1.73 m2 (mL/min/1.73m2) >= 60.00 Glucose (74-106) mg/dL 140 H Calcium (8.5-10.1) mg/dL 9.3 Phosphorus (2.6-4.7) mg/dL 4.2 Magnesium (1.8-2.4) mg/dL 2.3 Total Bilirubin (0.2-1.0) mg/dL AST (15-37) U/L ALT (16-63) U/L Alkaline Phosphatase (46-116) U/L Troponin I (<or=60) ng/L Total Protein (6.4-8.2) g/dL Albumin (3.4-5.0) g/dL Procalcitonin ng/mL COVID-19 Source SARS-CoV-2 (PCR) (Negative) Influenza Type A (PCR) (Negative) Influenza Type B (PCR) (Negative) RSV (PCR) (Negative)
[2021-08-06] MEDS: Acetaminophen 500 MG TAB 1000 MG NG ×2 (13:19→21:17)
--- NOTE | 2021-08-06 14:15 | PT.INTREAT ---
Date of service: 08/06/21 Time of Service: 14:15 PT Notes Visit Reasons: Acute on Chronic Hypoxic Respiratory Failure, RLL Inpatient Physical Therapy Treatment Note [facility] Date: 08/06/2021 PRECAUTIONS: Fall.? G-tube in place. On chronic oxygen supplementation via trach tube. SUBJECTIVE: Agreeable to PT sessions in AM and PM.? Feels a lot better and confident about going home. Hopeful to go home as soon as possible.? OBJECTIVE: Oxygen supp on via trach tube. G-tube in place.? IV access in the L UE. PAIN: Denies ? BED MOBILITY/TRANSFERS? Sit-stand: Independent Stand-sit: Independent? Bed-Chair: Supervision? Chair-bed: Supervision ? GAIT? Assistive Device: FWW? Weight bearing: FWB Assist: Standby assist? Distance: In the morning tolerated 75 feet + 75 feet; in the afternoon 260 feet +260 Deviation: Minimal shortness of breath. Oxygen saturation of 81% on 8 L of oxygen per minute via trach apparatus fitted by RT Garcia with desaturation back up to 91% and less than 1 minute with rest. In the afternoon oxygen saturation stayed above 90% on 6 L/min minimal shortness of breath observed. Stairs: Tolerated up-and-down 6 x 4 inch steps and 4 x 6 inch steps holding onto bilateral rails with step to gait pattern requiring supervision assist for oxygen tubing and pulse oximeter management. ? THEREX: Continue to work on standing level exercises while holding onto front wheeled walker to increase dynamic standing balance.? Also worked on increasing safety of sit to stand from edge of bed.? ASSESSMENT: Significant improvement seen in oxygen saturation, activity tolerance, and independence with mobility level for today's sessions. DISCHARGE RECOMMENDATIONS: [] ? Home with no services [] [X] ? Home with services.? Patient will benefit from home health PT services in order to progress mobility level using least restrictive assistive ambulatory device, assess home safety, identify additional equipment needs, and establish a functional maintenance program that will increase ability of patient to remain at home. [] ? Home with outpatient PT [] [] ? SNF for continued rehabilitation [] [] ? [facility] Care [] [] ? SNF versus LTC based on ability to participate and progress [] TREATMENT CODE/TIME: Session 1??07569 x 30 minutes, 15586 x26 minutes beginning at 10:28 AM. Session 2??72655 x 40 minutes beginning at 13:28 and 14:15 PM.
--- NOTE | 2021-08-06 14:51 | PGE_ITS ---
Date of Service Date of service: 08/06/21 Time of Service: 14:51 Assessment and Plan Assessment and plan (1) Pneumonia: Assessment and plan: Parish was dc'ed yesterday. sputum culture positive for MRSA. Will continue iv vancomcyin while and inpatient and transition to outpatient oral Bactrim and nebulized Vancomycin. He will also be starting on chlorhexidine baths. I discussed his care in detail w/ him and his partner/caregiver. She seems to be anxious about doing the nebulized vancomycin and would like to discuss this more w/ Dr. Sevilla. She also indicated that she has had some problems at home w/ his humidification system including the nozzle/nipple breaking off in the receiving end of the air hose. I recommend that she meet w/ R.T. to discuss her concerns and to have [facility] come to the house to ensure that his system is set up properly. Qualifiers: Pneumonia type: due to methicillin-resistant Staphylococcus aureus (MRSA) Laterality: right Lung location: lower lobe of lung Qualified Code(s): J15.212 - Pneumonia due to Methicillin resistant Staphylococcus aureus (2) Acute and chronic respiratory failure with hypoxia: Status: Acute Assessment and plan: As above. Patient is now back to his baseline oxygen needs. He is on 5 lpm aerosolzed trach mask. But requires higher flow w/ ambulation. P.T. indicated that he desaturated w/ ambulation but quickly recovered. (3) COPD (chronic obstructive pulmonary disease): Status: Acute Assessment and plan: cont. brochodilators, mucomyst aerosols and oral prednisone and Bactrim along w/ Vancomycin aerosols. I have continued his iv vancomycin for now for his pneumo aubrie but tomorrow will be his 5th day of iv vancomycin and he is now at his baseline oxygen needs. I will plan on dc in the am w/ close follow up w/ Dr. Sevilla and continued home vancomycin nebulizers. She plans for 28 day on/28 day off schedule of anti-MRSA treatment w/ Bactrim (orally) and nebulized vancomycin. (4) Neck pain on left side: Status: Acute Assessment and plan: Problems musculoskeletal function. Better today. 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 However no acute issues were found with his trachea. 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 Riley presented to the room while I was talking w/ the patient and his and she is going to exchange his gastric feeding tube. (7) Oral thrush: Status: Acute Assessment and plan: nystatin swish and swallow (8) DVT prophylaxis: Status: Acute Assessment and plan: enoxaparin 40 mg SC daily (9) Discharge planning issues: Status: Acute Assessment and plan: full code per Dr. George's discussion w/ patient and his partner. Plan for discharge home tomorrow w/ the following plan per Dr. Sevilla: MRSA Pulmonary Infection continue nebulized vanomycin 250mg in 5cc sterile water bid - please discharge on this for a 28 day total - start Bactrim DS - please discharge on this, again for 28 days - 4% chlorhexidine showers weekly for a total of 3 more weeks - please discharge with this - continue home bid 3% saline nebs, NAC PO, NAC nebs bid, vest therapy bid - prednisone 40mg for 5 days total COPD - start Stiolto - continue PO NAC Subjective Subjective Interval history since last seen: Patient has no acute complaints. His cough is become more productive he is able to mobilize his sputum better. His oxygen needs have improved. He is now back to his baseline. Exam Narrative Exam Narrative: Patient is alert and oriented sitting up at the bedside working with his partner who came to visit him. He is difficult to understand even though he has mechanical voicebox. His conjunctiva appear to have cleared out there is no purulent drainage. lungs with some scattered rhonchi but much improved airflow compared to how he sounded 2 or 3 days ago. Heart is regular. Objective Last Vital Signs Temp 36.9 C 08/06/21 08:17 Pulse 97 H 08/06/21 09:28 Resp 18 08/06/21 09:28 BP 111/77 08/06/21 08:17 Pulse Ox 99 08/06/21 09:28 Laboratory Results - last 24 hr 08/06/21 06:45 Plt Count 329
--- NOTE | 2021-08-06 18:31 | CMPROGNOTE_ITS ---
- If Service Date Differs Date of service: 08/06/21 Time of Service: 18:31 Care Management Progress Note S/O: Pineda was meeting with Palliative care when CM attempted to meet with him. Per report, he continues to improve, and will likely be ready for discharge soon. His caregiver, and partner, Kiara, is looking for additional support. CM will attempt to connect her with RT to discuss his oxygen needs, and he will have outpatient follow up with Pulmonology. He will have new orders for HH RN, P T, OT upon discharge. CM will continue to follow. A: Chan is a 76 year old male admitted to [facility] on 08/03/21 with acute on chronic hypoxic respiratory failure. P: Chan will be discharged home witha resumption of services through [facility]. Chan has [facility]. He will follow up with his community providers and plan of care as prescribed and transport with family.
--- NOTE | 2021-08-06 18:42 | W.PALLCONSUL ---
Date of service: 08/06/21 Time of Service: 13:30 History of Present Illness Narrative: Mr. 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, as well as h/o COPD, chronic hypoxic respiratory failure on 6L of O2 via trach collar, mucuous plugging requiring bronchoscopy in the past, as well as h/o MRSA colonization, AAA s/p repair - pt presented to [facility] ED on 08/03/21 c/o L sided neck pain, SOB and hypoxemia; currently being treated forRLL PNA w/chronic bacterial bronchitis and mucous plugging w/ IV vancomycin, started 08/03 w/goals of discharge home tomorrow on oral Bactim and nebulized vanc for continued MRSA coverage; he has returned to baseline oxygen needs, 5 lpm aerosolzed trach mask, neck pain resolved; d/c'd home w/continuation of [facility] services RN/PT/OT pt engaged in PT at time of visit, able to engage during rest period; pt reports ready to go home yesterday; feels it is safe to return home, lives on main level of home, w/goals of doing stairs to office and other areas of home; Kiara, partner and primary med care manager working on improving home safety to achieve these goals; reports feels back to where was prior to ED presentation, denies c/o today; reports has neighbors and nephews also available to provide assistance as necessary; reports Kiara is involved in all care; frustration w/[facility] [employer] r/t supply, Kiara working to figure out how to improve home system reports [facility] remains nephew Marino, despite being chronically ill himself, 2nd agent Marino's mother Osmar; Kiara is a paid caregiver; pt aware of risks of remaining full code and does not wish to change his status today; willing to f/u w/palliative in outpatient setting; attempted to call [facility], left message to call palliative care back for outpatient f/u Assessment and Plan Assessment and plan (1) MRSA pneumonia: Status: Acute Assessment and plan: per respiratory continue nebulized vanomycin 250mg in 5cc sterile water bid - please discharge on this for a 28 day total - start Bactrim DS - please discharge on this, again for 28 days - 4% chlorhexidine showers weekly for a total of 3 more weeks - please discharge with this - continue home bid 3% saline nebs, NAC PO, NAC nebs bid, vest therapy bid - prednisone 40mg for 5 days total (2) Acute and chronic respiratory failure with hypoxia: Status: Acute Assessment and plan: back to baseline oxygen needs cont. 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: Status: Acute (4) Dependence on supplemental oxygen: Status: Chronic (5) Need for home health care: Status: Acute Assessment and plan: [facility] RN, PT, OT upon discharge; Kiara primary caregiver, [facility] high needs (6) Full code status: Status: Acute Assessment and plan: continue to follow after discharge for ongoing assessment of care goals will contact Kiara again to set up outpatient follow up Review of Systems Constitutional Constitutional: Reports as per HPI PFS All Active Problems (Updated 08/06/21 @ 19:00 by Isha Mayo NP) Full code status (Acute) Need for home health care (Acute) MRSA pneumonia (Acute) pt likely colonized Occlusion of right vertebral artery (Acute) Conjunctivitis (Acute) Oral thrush (Acute) Discharge planning issues (Acute) DVT prophylaxis (Acute) Right lower lobe pneumonia (Acute) Acute and chronic respiratory failure with hypoxia (Acute) Hypoxemia (Acute) URI (upper respiratory infection) (Acute) Neck pain on left side (Acute) Shortness of breath (Acute) Complication of feeding tube (Acute) Peripheral neuropathy (Acute 02/21/15) PAOD (peripheral arterial occlusive disease) (Acute) COPD (chronic obstructive pulmonary disease) (Acute) G tube feedings (Acute) changed 10/04 18F 3cm 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 (Acute) Compression fracture of thoracolumbar vertebra (Acute) Dependence on supplemental oxygen (Chronic) Medical History (Updated 08/06/21 @ 19:00 by Isha Mayo NP) 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 Blockage of feeding tube 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/17) CAD (coronary artery disease) Chronic respiratory failure with hypoxia Complication of feeding tube Conjunctivitis, chronic COPD (chronic obstructive pulmonary disease) Cortical cataract of right eye Depression Depressive disorder (11/18/12) Dyspnea on exertion Feeding tube dysfunction Hematoma following procedure Herpes zoster History of alcoholism sober x 25yrs History of tobacco use Hyperlipemia Hyperlipidemia (11/18/12) Hypertension Hypertension (11/18/12) Hypothyroidism Hypothyroidism (11/18/12) Impingement syndrome, shoulder, left (10/10/16) -2016: PT sugg. 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: hiatal hernia, GERD, Reyes's esophagitis, neuromuscular dysfunction History of laryngectomy History of radical laryngectomy History of tarsorrhaphy PROCEDURES RT/LEFT HEART CARD CATH COMPLETE LARYNGECTOMY Esophagoplasty S/P AAA (abdominal aortic aneurysm) repair Status post cardiac catheterization Status post cataract extraction and insertion of intraocular lens of left eye (04/30/12) Status post cataract extraction and insertion of intraocular lens of right eye (07/12/18) Status post laryngectomy Social History Smoking/Tobacco Use Status: Former Tobacco Use Tobacco: How many years used: 30 Smoking risk assessment performed?: Yes Alcohol Intake: never Drug use: Never Substance use type: does not use Current gender identity: male Do you feel safe at home: Yes Do you feel safe in your relationship?: Yes Exam Narrative Exam Narrative: visit conducted in PT room, pt sitting comfortably on table upon arrival Const General: cooperative and no acute distress Orientation: alert, awake and oriented x3 HENMT Other: larengectomy stoma present Resp Effort & Inspection: able to speak in complete sentences and no audible wheezes Other: o2 saturation 97% w/aerosolized trach mask Skin General skin exam: no rashes or lesions noted Neuro Cognition: normal cognition Psych Mood: congruent mood Affect: normal affect Results Last Vital Signs Temp 97.9 F 08/06/21 15:15 Pulse 100 H 08/06/21 15:15 Resp 18 08/06/21 17:47 BP 108/54 L 08/06/21 15:15 Pulse Ox 94 08/06/21 15:15 Labs Result diagrams: 08/06/21 06:45 08/04/21 06:02 Labs: Laboratory Results - last 24 hr 08/06/21 06:45 Plt Count 329
--- NOTE | 2021-08-06 18:50 | PGE_ITS ---
Date of Service Date of service: 08/06/21 Time of Service: 18:50 Assessment and Plan Assessment and plan (1) MRSA pneumonia: Status: Acute (2) Complication of feeding tube: Status: Acute Assessment and plan: tube was change today. The old tube was removed and a new 20 Estonian 3 cm it was placed. Gastric contents were aspirated. No pain w/ injection of water. Sterile dressing is applied. Site is c/d/i. Pt has been experiencing some gastric contents relfux. It seems to occur when he is full. Use zinc Use zinc barrier Cream daily to protect skin from maceration. He is fungal cream as needed for any associated redness. f/u in office in 4months for routine tube change, in the office. 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
[2021-08-06] MEDS: Enoxaparin 40 MG/0.4 ML SYR SC (21:15)
[2021-08-06] MEDS: Melatonin 3 MG TAB 6 MG PO (21:16)
[2021-08-06] MEDS: Rosuvastatin 10 MG TAB 40 MG NG (21:18)
[2021-08-06] MEDS: Finasteride 5 MG TAB NG (21:19)
[2021-08-07] MEDS: Albuterol/Ipratropium 3 ML UPD VIAL UPD ×3 (00:29→13:40)
[2021-08-07 03:35] VITALS: BP 105/77; PULSE 95; RESP 16; TEMP 36.9; O2SAT 93
[2021-08-07] MEDS: Levothyroxine 112 MCG TAB NG (05:21)
[2021-08-07] MEDS: Nystatin 500000 UNITS/5 ML SUSP 5ML CUP PO ×2 (05:21→09:50)
[2021-08-07] MEDS: VANCOMYCIN/WATER (PEG) 1 GM/200 ML BAG IV (05:21)
[2021-08-07 07:46] VITALS: BP 105/83; PULSE 92; RESP 19; TEMP 36.4; O2SAT 95
[2021-08-07] MEDS: predniSONE 20 MG TAB 40 MG PO (08:21)
[2021-08-07] MEDS: Omeprazole 20 MG CAPCR NG (08:21)
[2021-08-07] MEDS: Acetylcysteine 600 MG CAP PO (08:21)
[2021-08-07] MEDS: Ferrous Sulfate 325 MG TAB PO (08:21)
[2021-08-07] MEDS: Aspirin 81 MG CHEW NG (08:21)
[2021-08-07] MEDS: Gabapentin 100 MG CAP 200 MG NG (08:21)
[2021-08-07] MEDS: Sulfameth/Trimeth DS TAB 1 TAB PO (08:21)
[2021-08-07] MEDS: rOPINIRole 1 MG TAB NG (08:21)
[2021-08-07] MEDS: amLODIPine 5 MG TAB NG (08:21)
[2021-08-07] MEDS: Tiotropium/Olodaterol 10 PUFF INHALER 2 PUFF IH (08:22)
[2021-08-07] MEDS: Citalopram 20 MG TAB NG (08:22)
[2021-08-07] MEDS: Normal Saline Flush 10 ML SYR IVP (08:22)
[2021-08-07] MEDS: Moxifloxacin 0.5% 3 ML BTL OS (08:24)
[2021-08-07] MEDS: Acetylcysteine 20% *ORAL/INHALED* 6000 MG/30 ML VIAL 600 MG UPD (08:55)
[2021-08-07 08:59] VITALS: RESP 2; RESP 5; RESP 6
[2021-08-07 09:15] VITALS: PULSE 93; RESP 2; RESP 20; RESP 5; RESP 6; RESP 8; O2SAT 93
--- NOTE | 2021-08-07 09:50 | PT.INDS ---
Date of service: 08/08/21 Time of Service: 09:50 PT Notes Visit Reasons: Acute on Chronic Hypoxic Respiratory Failure, RLL Physical Therapy Inpatient Discharge Summary Date: 08/08/21 Referring Doctor: Sydney George MD PT Orders: PT CONSULT: Limited ability Precautions: Fall. Standard. Patient Profile/Admitting Diagnosis: Acute on Chronic Hypoxic Respiratory Failure PMHX:? All Active Problems?(Updated 08/03/21 @ 23:42 by Sydney George MD) Occlusion of right vertebral artery (Acute) Conjunctivitis (Acute) Oral thrush (Acute) Discharge planning issues (Acute) DVT prophylaxis (Acute) Right lower lobe pneumonia (Acute) Acute and chronic respiratory failure with hypoxia (Acute) Hypoxemia (Acute) URI (upper respiratory infection) (Acute) Neck pain on left side (Acute) Pneumonia (Acute) Pneumonia (Acute) Shortness of breath (Acute) Left arm numbness (Acute) Complication of feeding tube (Acute) Peripheral neuropathy (Acute 02/21/15) MRSA pneumonia (Acute) PAOD (peripheral arterial occlusive disease) (Acute) COPD (chronic obstructive pulmonary disease) (Acute) G tube feedings (Acute) changed 10/04? 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 Anemia Anxiety Anxiety Aphonia post total laryngectomy [facility] 2007 Blockage of feeding tube 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/17) CAD (coronary artery disease) Chronic respiratory failure with hypoxia Complication of feeding tube Conjunctivitis, chronic COPD (chronic obstructive pulmonary disease) Cortical cataract of right eye Depression Depressive disorder (11/18/12) Dyspnea on exertion Feeding tube dysfunction Hematoma following procedure Herpes zoster History of alcoholism sober x 25yrs History of tobacco use Hyperlipemia Hyperlipidemia (11/18/12) Hypertension Hypertension (11/18/12) Hypothyroidism Hypothyroidism (11/18/12) Impingement syndrome, shoulder, left (10/10/16) -2016: PT sugg. 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 Nuclear sclerotic cataract of right eye Post herpetic neuralgia Posterior subcapsular age-related cataract, right eye Primary malignant neoplasm of oropharynx ; yearly fup in Feb? (last ) [facility] SX: 2007 ROR: 2000 + 2007 Pulmonary nodule, right (05/30/15) on chest CT -2016: stable Restless leg syndrome (02/21/15) Sessile colonic polyp 12/22/16-SESSILE SERRATED ADENOMA Tobacco use Surgical History? 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) Sin-mullins button [facility]cd[facility] (~08/10/19) Daron Casper APRN @ [facility]: hiatal hernia, GERD, Reyes's esophagitis, neuromuscular dysfunctionHistory of laryngectomy History of radical laryngectomy History of tarsorrhaphy PROCEDURES RT/LEFT HEART CARD CATH COMPLETE LARYNGECTOMY Esophagoplasty S/P AAA (abdominal aortic aneurysm) repair Status post cardiac catheterization Status post cataract extraction and insertion of intraocular lens of left eye (04/30/12) Status post cataract extraction and insertion of intraocular lens of right eye (07/12/18) Status post laryngectomy Social History/Home Situation: Pt lives with his partner in a 2 story home, receiving assist for ascent/descent of stairs as needed. Equipment Owned/DME: FWW, trach collar with supplemental O2 Subjective: Looking forward to going home as soon as he can today. Objective: General Observation: In NAD. Mental Status: A&O x3 Pain: Denies ROM: Right Upper Extremity: Shoulder Flexion WFL. Shoulder abduction WFL. Elbow flexion WFL. Wrist flexion WFL. Opening and closing of hand WFL. Left Upper Extremity: Shoulder Flexion 40deg. Shoulder abduction 40deg. Elbow flexion WFL. Wrist flexion WFL. Opening and closing of hand WFL. Right Lower Extremity: Hip flexion WFL. Hip abduction WFL. Knee flexion WFL. Ankle dorsiflexion WFL. Ankle plantarflexion WFL. Left Lower Extremity: Hip flexion WFL. Hip abduction WFL. Knee flexion WFL. Ankle dorsiflexion WFL. Ankle plantarflexion WFL. Strength: Right Upper Extremity: Shoulder flexors 5/5. Shoulder abductors 5/5. Elbow flexors 5/5. Elbow extensors 5/5. Underwriter strong. Left Upper Extremity: Shoulder flexors 2/5. Shoulder abductors 2/5. Elbow flexors 3/5. Elbow extensors 3/5. 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 Right Lower Extremity: Hip flexors 5/5. Hip abductors 5/5. Knee flexors 5/5. Knee extensors 5/5. Ankle dorsiflexors 5/5. Ankle plantarflexors 5/5. Left Lower Extremity: Hip flexors 5/5. Hip abductors 5/5. Knee flexors 5/5. Knee extensors 5/5. Ankle dorsiflexors 5/5. Ankle plantarflexors 5/5. Sensation: Intact as to pain and pressure on bilateral lower extremities. Bed Mobility/Transfers: Rolling: Independent Supine to sit: Independent Sit to supine:Independent Sit to stand: Independent Stand to sit: Independent Bed to chair: Independent Chair to bed: Independent Gait: Able to tolerate up to 300 feet of level surface ambulation using FWW with FWB on B LE with oxygen saturation of 88% to 94% on 4 L oxygen per minute. Stairs: Negotiates up and down 6 x 4-inch steps and 4 x 6 inch-steps holding onto bilateral rails step to gait pattern requiring supervision assist 30s sit to stand: 6x with no UE support Balance: Static Sitting: Normal Dynamic Sitting: Normal Static Sitting: Fair Dynamic Sitting: Fair Assessment: Patient presents with clinical signs and symptoms consistent with current/admitting diagnoses that have resulted to mobility limitations, gait instability, generalized weakness, and impairment of motor control as demonstrated by the following impairment level findings: 1. Decreased strength to major muscle groups 2. Impaired sitting/standing balance 3. Impaired activity tolerance Impairments are contributing to the following functional limitations: 1. Inability to safely ambulate without assistive device 2. Increased completion time for mobility ADL performance 3. Increased fall risk 4. Inability to negotiate steps alone safely Goals: Goals x1 week 1. Bed-Chair: independent MET 2. Chair-Bed: independent MET 3. Independent gait on level surface with use of least restrictive device for at least 50 feet without report of pain nor dyspnea NOT MET 4. Independent stair negotiation while holding onto bilateral rails for at least 10 steps without report of pain nor dyspnea NOT MET 5. Independent with home exercise program NOT MET 6. Good static and dynamic standing balance/to lerance NOT MET DISCHARGE RECOMMENDATIONS: [] Home with no services [] [X] Home with services. Patient will benefit from home health PT services in order to progress mobility level using least restrictive assistive ambulatory device, assess home safety, identify additional equipment needs, and establish a functional maintenance program that will increase ability of patient to remain at home. [] Home with outpatient PT [] [] SNF for continued rehabilitation [] [] Continuous Improvement Lead Care [] [] SNF versus LTC based on ability to participate and progress [] TREATMENT CODE/TIME:? 90480 x 18 minutes beginning at 9:50 AM. Thank you for the opportunity to participate in the care of this patient. Vanessa Brown PT, DPT, CLT [facility] [place], [place]
--- NOTE | 2021-08-07 10:15 | PGE_ITS ---
Assessment and Plan Assessment and plan (1) Right lower lobe pneumonia: Status: Acute (2) Acute and chronic respiratory failure with hypoxia: Status: Acute (3) Laryngeal cancer: Status: None (4) COPD (chronic obstructive pulmonary disease): Status: Acute Assessment and plan: This is a 76 yo man [place] [facility] [place] chronic [place] pulmonary infections and COPD. 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 I would recommend continuing his home airway clearance regimen. I started him on nebulized vancomycin yesterday and he seemed to tolerate this. He is also on PO Bactrim. He remains on IV vancomycin but in my opinion this can be discontinued. We will move forward with a 28 day regimen of nebulized vanc bid and DS Bactrim daily in addition to his airway clearance regimen. I will set follow up for him in 3 weeks to touch base on this regimen. I will attempt to coordinate with Dr. Wall regarding his care moving forward. From a respiratory perspective he is close to baseline and is likely safe for discharge. MRSA Pulmonary Infection - can D/C IV Vanc - continue nebulized vanomycin 250mg in 5cc sterile water bid - pharmacy to provide 4 days worth of treatments - my nurse is working with a specialty pharmacy to get this delivered to the patient - start Bactrim DS - please discharge on this, again for 28 days - 4% chlorhexidine showers weekly for a total of 3 more weeks - please discharge with this - continue home bid 3% saline nebs, NAC PO, NAC nebs bid, vest therapy bid - prednisone 40mg for 5 days total - f/u visit with me in 3 weeks COPD - Stiolto - continue PO NAC General Date Of Service Date of service: 08/07/21 Time of Service: 08:25 Requesting physician: Sydney George Reason for Consult: MRSA Pneumonia Subjective Note Note: Chan is doing well today. I spoke with him about my conversation with Dr. Wall and I spoke to Kiara this morning. Everyone is on board for our plan of alternating month nebulized vancomycin, PO Bactrim and a total of 4 skin decontamination showers. Exam Const General: no acute distress Nutritional Appearance: well nourished [facility] Head: normocephalic Ears: external ears normal and no periauricular adenopathy General nose exam: nasal mucous membranes and turbinates normal Face and sinus: sinuses nontender Mouth: oropharynx normal and moist mucous membranes Teeth and gingiva: dentition normal Eyes General: appearance normal, both eyes and all related structures Pupils: PERRL Neck Neck: no lymphadenopathy and tracheostomy present Chest Chest: normal inspection of the chest Resp Effort & Inspection: normal respiratory effort Auscultation: clear to auscultation bilaterally, no rales, no rhonchi and no wheezes Cardio Rate: regular rate Rhythm: regular rhythm Heart Sounds: S1 normal, S2 normal and no murmurs Pulses: radial pulses present Objective Last Vital Signs Temp 36.4 C L 08/07/21 07:46 Pulse 93 H 08/07/21 09:15 Resp 20 08/07/21 09:15 BP 105/83 08/07/21 07:46 Pulse Ox 93 08/07/21 09:15 Results Medications Medications: Active Medications Generic Name Dose Route Start Last Admin Trade Name Freq PRN Reason Stop Dose Admin Acetaminophen 650 mg 08/03/21 20:46 Acetaminophen 650 Mg Supp DC Q4H PRN PRN Acetaminophen 1,000 mg 08/04/21 13:00 08/06/21 21:17 Acetaminophen 500 Mg Tab NG 1,000 mg BID@1300,2100 MYA Administration Acetaminophen 325 - 650 mg 08/05/21 09:59 08/05/21 10:25 Acetaminophen 325 Mg Tab PO 650 mg Q4H PRN PRN Administration Acetylcysteine 600 mg 08/04/21 08:30 08/07/21 08:21 Acetylcysteine 600 Mg Cap PO 600 mg BID MYA Administration Acetylcysteine 600 mg 08/05/21 08:30 08/07/21 08:55 Acetylcysteine 20% *Oral/Inhaled* 6000 Mg/30 Ml Vial UPD 600 mg BID MYA Administration Albuterol Sulfate 2.5 mg 08/03/21 20:46 Albuterol 2.5 Mg/3 Ml Inh Soln Vial UPD Q2H PRN PRN Albuterol/Ipratropium 3 ml 08/04/21 12:00 08/07/21 05:21 Albuterol/Ipratropium 3 Ml Upd Vial UPD 3 ml Q6H MYA Administration Amlodipine Besylate 5 mg 08/04/21 08:30 08/07/21 08:21 Amlodipine 5 Mg Tab NG 5 mg DAILY MYA Administration Aspirin 81 mg 08/04/21 08:30 08/07/21 08:21 Aspirin 81 Mg Chew NG 81 mg DAILY MYA Administration Chlorhexidine Gluconate 120 ml 08/05/21 12:00 08/05/21 13:57 Chlorhexidine 4% 120 Ml Btl TP 120 ml Q7D MYA Administration Citalopram Hydrobromide 20 mg 08/04/21 08:30 08/07/21 08:22 Citalopram 20 Mg Tab NG 20 mg DAILY MYA Administration Vancomycin HCl 250 mg/ Sterile 0 mg 08/05/21 10:00 08/07/21 09:00 Water 5 ml UD 250 mg Q12H MYA Administration Device 1 each 08/05/21 10:00 Inhaler, Assist Device MC DIRECTED [facility] Dimethicone/Zinc Oxide 0 gm 08/03/21 20:46 Madeline Protect Cream 142 Gm Tube TP PRN PRN Enoxaparin Sodium 40 mg 08/04/21 22:00 08/06/21 21:15 Enoxaparin 40 Mg/0.4 Ml Syr SC 40 mg Q24H MYA Administration Ferrous Sulfate 325 mg 08/04/21 10:00 08/07/21 08:21 Ferrous Sulfate 325 Mg Tab PO 325 mg DAILY MYA Administration Finasteride 5 mg 08/04/21 20:00 08/06/21 21:19 Finasteride 5 Mg Tab NG 5 mg QPM MYA Administration Gabapentin 200 mg 08/04/21 08:30 08/07/21 08:21 Gabapentin 100 Mg Cap NG 200 mg BID MYA Administration Guaifenesin 200 mg 08/03/21 20:53 Guaifenesin 200 Mg/10 Ml Cup NG Q4H PRN PRN Vancomycin/PEG/NADA/Lysine/Water 1 gm in 200 mls @ 0 mls/hr 08/05/21 18:00 08/07/21 05:21 Vancocin Injection IV 200 mls/hr Q12H MYA Administration Protocol Per Protocol IV Miscellaneous Supplies 1 each 08/03/21 08:45 Iv Access IV DIRECTED [facility] Levothyroxine Sodium 112 mcg 08/05/21 06:00 08/07/21 05:21 Levothyroxine 112 Mcg Tab NG 112 mcg 0600 MYA Administration Melatonin 6 mg 08/03/21 22:00 08/06/21 21:16 Melatonin 3 Mg Tab PO 6 mg HS MYA Administration Morphine Sulfate 2 mg 08/04/21 01:38 08/05/21 23:25 Morphine 2 Mg/Ml Syr IVP 2 mg Q2H PRN PRN Administration Moxifloxacin HCl 0 ml 08/04/21 08:30 08/07/21 08:24 Moxifloxacin 0.5% 3 Ml Btl OS 1 drp TID MYA Administration Nystatin 500,000 units 08/04/21 06:00 08/07/21 09:50 Nystatin 000606 Units/5 Ml Susp 5ml Cup PO 500,000 units 5X/DAY MYA Administration Omeprazole 20 mg 08/04/21 07:30 08/07/21 08:21 Omeprazole 20 Mg Capcr NG 20 mg BID@ MYA Administration Pt's Own Alfuzosin [ 1 each 08/04/21 08:30 08/07/21 08:20 Uroxatral] 10 Mg NG 1 each Ertablet DAILY MYA Administration Pt's Own 1 each 08/04/21 20:00 08/06/21 21:20 Bifidobacterium NG 1 each Infantis [Align] 4 QPM MYA Administration Mg Capsule Patient's Own 0 each 08/04/21 18:25 08/06/21 21:16 Medication (Salazar's PO 1 each Leg Cramps QID PRN PRN Administration Homeopathic Remedy Restless legs Otc) Prednisone 40 mg 08/05/21 08:30 08/07/21 08:21 Prednisone 20 Mg Tab PO 08/10/21 08:29 40 mg DAILY MYA Administration Ropinirole HCl 1 mg 08/04/21 08:30 08/07/21 08:21 Ropinirole 1 Mg Tab NG 1 mg BID MYA Administration Rosuvastatin Calcium 40 mg 08/04/21 20:00 08/06/21 21:18 Rosuvastatin 10 Mg Tab NG 40 mg QPM MYA Administration Sodium Chloride 0 ml 08/03/21 10:46 08/07/21 08:22 Normal Saline Flush 10 Ml Syr IVP 10 ml PRN PRN Administration Sodium Chloride 4 ml 08/04/21 08:30 08/07/21 08:59 Sodium Chloride 3% For Inhalation 15 Ml Vial IH 4 ml BID MYA Administration Tiotropium [place]/Olodaterol 2 puff 08/06/21 08:30 08/07/21 08:22 Tiotropium/Olodaterol 10 Puff Inhaler IH 2 puff DAILY MYA Administration Trimethoprim/Sulfamethoxazole 1 tab 08/06/21 08:30 08/07/21 08:21 Sulfameth/Trimeth Ds Tab PO 1 tab DAILY MYA Administration Zinc Oxide 30 gm 08/06/21 18:46 Zinc Oxide Oint 30 Gm Tube TP BID PRN PRN Allergies pollen extracts Allergy (Mild, Verified 08/03/21 09:02) Tetracyclines Allergy (Unknown, Verified 08/03/21 09:02) SKIN RASH Labs Result Diagrams: 08/06/21 06:45 08/04/21 06:02 Labs: 08/04/21 13:00 Sputum - Expectorated Sputum Culture - Final Staph aureus, MRSA Normal Joie 08/04/21 13:00 Sputum - Expectorated Gram Stain - Final 08/03/21 14:17 Blood Blood Culture - Preliminary NO GROWTH 72 HOURS 08/03/21 14:05 Blood Blood Culture - Preliminary NO GROWTH 72 HOURS 08/03/21 16:55 Sputum Sputum Culture - Final Staph aureus, MRSA Normal Joie 08/03/21 16:55 Sputum Gram Stain - Final Laboratory Tests Range/Units 08/03/21 08/03/21 08/03/21 08:45 08:45 08:55 WBC (4.4-10.8) 10^3/uL 20.86 H RBC (4.36-5.78) 10^6/uL 4.94 Hgb (13.5-17.5) g/dL 15.1 Hct (40.0-50.0) % 47.2 MCV (80-95) fL 95.5 H MCH (27.0-33.0) pg 30.6 MCHC (32.0-36.0) % 32.0 RDW (11.8-14.1) % 13.9 Plt Count (130-400) 10^3/uL 309 MPV (8.0-11.0) fL 9.7 Immature Gran % 0.3 Neutrophils % 90.7 Lymphocytes % 3.1 Monocytes % 4.7 Eosinophils % 0.5 Basophils % 0.7 Nucleated RBC % % 0 Absolute Neutrophils (1.2-6.7) 10^3/uL 18.92 H Absolute Lymphocytes (1.2-3.4) 10^3/uL 0.65 L Absolute Monocytes (0.1-0.8) 10^3/uL 0.98 H Absolute Eosinophils (0.0-0.7) 10^3/uL 0.10 Absolute Basophils (0.0-0.2) 10^3/uL 0.15 VBG Lactate (0.6-1.4) mmol/L Sodium (136-145) mmol/L 139 Potassium (3.5-5.1) mmol/L 3.3 L Chloride (98-107) mmol/L 99 Carbon Dioxide (21.0-32.0) mmol/L 33.4 H Anion Gap (3-11) mmol/L 6.6 BUN (7-18) mg/dL 23 H Creatinine (0.70-1.30) mg/dL 1.0 Estimated GFR/1.73 m2 (mL/min/1.73m2) >= 60.00 Glucose (74-106) mg/dL 133 H Calcium (8.5-10.1) mg/dL 9.3 Phosphorus (2.6-4.7) mg/dL Magnesium (1.8-2.4) mg/dL 2.2 Total Bilirubin (0.2-1.0) mg/dL 0.5 AST (15-37) U/L 20 ALT (16-63) U/L 18 Alkaline Phosphatase (46-116) U/L 104 Troponin I (<or=60) ng/L < 50 Total Protein (6.4-8.2) g/dL 8.0 Albumin (3.4-5.0) g/dL 3.5 Procalcitonin ng/mL COVID-19 Source Nasal/Nares SARS-CoV-2 (PCR) (Negative) Negative Influenza Type A (PCR) (Negative) Influenza Type B (PCR) (Negative) RSV (PCR) (Negative) Range/Units 08/03/21 08/03/21 08/03/21 13:40 14:05 16:15 WBC (4.4-10.8) 10^3/uL RBC (4.36-5.78) 10^6/uL Hgb (13.5-17.5) g/dL Hct (40.0-50.0) % MCV (80-95) fL MCH (27.0-33.0) pg MCHC (32.0-36.0) % RDW (11.8-14.1) % Plt Count (130-400) 10^3/uL MPV (8.0-11.0) fL Immature Gran % Neutrophils % Lymphocytes % Monocytes % Eosinophils % Basophils % Nucleated RBC % % Absolute Neutrophils (1.2-6.7) 10^3/uL Absolute Lymphocytes (1.2-3.4) 10^3/uL Absolute Monocytes (0.1-0.8) 10^3/uL Absolute Eosinophils (0.0-0.7) 10^3/uL Absolute Basophils (0.0-0.2) 10^3/uL VBG Lactate (0.6-1.4) mmol/L 1.1 Sodium (136-145) mmol/L Potassium (3.5-5.1) mmol/L Chloride (98-107) mmol/L Carbon Dioxide (21.0-32.0) mmol/L Anion Gap (3-11) mmol/L BUN (7-18) mg/dL Creatinine (0.70-1.30) mg/dL Estimated GFR/1.73 m2 (mL/min/1.73m2) Glucose (74-106) mg/dL Calcium (8.5-10.1) mg/dL Phosphorus (2.6-4.7) mg/dL Magnesium (1.8-2.4) mg/dL Total Bilirubin (0.2-1.0) mg/dL AST (15-37) U/L ALT (16-63) U/L Alkaline Phosphatase (46-116) U/L Troponin I (<or=60) ng/L < 50 Total Protein (6.4-8.2) g/dL Albumin (3.4-5.0) g/dL Procalcitonin ng/mL 0.1 COVID-19 Source Nasopharynx SARS-CoV-2 (PCR) (Negative) Negative Influenza Type A (PCR) (Negative) Negative Influenza Type B (PCR) (Negative) Negative RSV (PCR) (Negative) Negative Range/Units 08/04/21 08/04/21 08/06/21 06:02 06:02 06:45 WBC (4.4-10.8) 10^3/uL 13.71 H D RBC (4.36-5.78) 10^6/uL 4.75 Hgb (13.5-17.5) g/dL 14.6 Hct (40.0-50.0) % 46.5 MCV (80-95) fL 97.9 H MCH (27.0-33.0) pg 30.7 MCHC (32.0-36.0) % 31.4 L RDW (11.8-14.1) % 14.1 Plt Count (130-400) 10^3/uL 318 329 MPV (8.0-11.0) fL 10.2 Immature Gran % 0.4 Neutrophils % 90.1 Lymphocytes % 3.9 Monocytes % 5.3 Eosinophils % 0.0 Basophils % 0.3 Nucleated RBC % % 0 Absolute Neutrophils (1.2-6.7) 10^3/uL 12.35 H Absolute Lymphocytes (1.2-3.4) 10^3/uL 0.53 L Absolute Monocytes (0.1-0.8) 10^3/uL 0.73 Absolute Eosinophils (0.0-0.7) 10^3/uL 0.00 Absolute Basophils (0.0-0.2) 10^3/uL 0.04 VBG Lactate (0.6-1.4) mmol/L Sodium (136-145) mmol/L 144 Potassium (3.5-5.1) mmol/L 3.8 Chloride (98-107) mmol/L 105 Carbon Dioxide (21.0-32.0) mmol/L 27.2 Anion Gap (3-11) mmol/L 11.8 H BUN (7-18) mg/dL 25 H Creatinine (0.70-1.30) mg/dL 1.0 Estimated GFR/1.73 m2 (mL/min/1.73m2) >= 60.00 Glucose (74-106) mg/dL 140 H Calcium (8.5-10.1) mg/dL 9.3 Phosphorus (2.6-4.7) mg/dL 4.2 Magnesium (1.8-2.4) mg/dL 2.3 Total Bilirubin (0.2-1.0) mg/dL AST (15-37) U/L ALT (16-63) U/L Alkaline Phosphatase (46-116) U/L Troponin I (<or=60) ng/L Total Protein (6.4-8.2) g/dL Albumin (3.4-5.0) g/dL Procalcitonin ng/mL COVID-19 Source SARS-CoV-2 (PCR) (Negative) Influenza Type A (PCR) (Negative) Influenza Type B (PCR) (Negative) RSV (PCR) (Negative)
[2021-08-07 10:55] VITALS: O2SAT 96
--- NOTE | 2021-08-07 13:36 | DSE_ITS ---
Date of service: 08/07/21 Time of Service: 13:36 DS: Diagnosis Discharge Diagnosis (1) Right lower lobe pneumonia: Status: Acute Asessment and Plan: Patient is a 76-year-old male with a history of COPD and tracheostomy for laryngeal cancer who is had a history of recurrent MRSA pulmonary infections. He presented with acute on chronic respiratory failure with a right lower lobe infiltrate. He was started on IV Zosyn and vancomycin. Sputum culture came back positive for MRSA. Blood cultures came back no growth. CT of his chest showed no pulmonary emboli. He had an infiltrate in the posterior basilar segment of the right lower lobe that was more prominent than previously seen. He also had some increased markings in the posterior basal segment left lower lobe. He was admitted to the intensive care unit and required higher oxygen requirements than he usually needs at home. His baseline oxygen needs are 6 L/min per tracheostomy mask. He did require up to 10 L/min. He was placed on Mucomyst and DuoNeb aerosol treatments and treated with IV Zosyn and vancomycin. When his blood cultures came back no growth and sputum grew MRSA the Zosyn was discontinued. Dr. Maddie Caldera, travel registered nurse pacu was consulted. See her consult note from 08/05/2021 for details. Her recommendation is that we put him through a decontamination process of chlorhexidine showers weekly for a month and put him on 28-day course of Bactrim and vancomycin nebulizer treatments to reduce his MRSA burden and do this on a 1 month on and 1 month off schedule. Patient's clinical condition improved he was transferred out of the medical intensive care unit as his oxygen needs declined and he was down to a baseline of 5 L/min per tracheostomy mask. Physical therapy was consulted and patient was ambulating with a front wheel walker without significant dyspnea. He will desaturate down to 81% and required 8 L of oxygen per minute via tracheostomy mask to get his oxygen saturation back up to 91% after 1 minute rest. He was walking up to 260 feet with a front wheel walker and standby assistance. PT recommended home services including home health physical therapy services to progress his mobility using least restrictive assistive ambulatory devices and to assess his home safety and to identify any additional equipment needs and to establish a functional maintenance program that will increase ability the patient to remain within his home. He was discharged home in markedly improved condition. He will follow up with Dr. Maddie Caldera as an outpatient. Our pharmacy provided 4 days worth of the vancomycin solution to be nebulized. He is to do these nebulizer treatments twice a day. He will start on Bactrim DS daily and take this for 28 days. (2) Acute and chronic respiratory failure with hypoxia: Status: Acute Asessment and Plan: As above (3) Laryngeal cancer: Status: None (4) COPD (chronic obstructive pulmonary disease): Status: Chronic Discharge Plan Disposition Patient Disposition: HOME W/HOME HEALTH SERVICE Condition: Improving Discharge Details Reason For Visit: Acute on Chronic Hypoxic Respiratory Failure, RLL Admit Date/Time: 08/03/21 20:47 Admit Provider: Sydney George Attending Provider: Sydney George Primary Care Provider: Unknown,Unknown Hospital Course Hospital Course: Patient is a 76-year-old male with a history of COPD and tracheostomy for laryngeal cancer who is had a history of recurrent MRSA pulmonary infections.? He presented with acute on chronic respiratory failure with a right lower lobe infiltrate.? He was started on IV Zosyn and vancomycin.? Sputum culture came back positive for MRSA.? Blood cultures came back no growth.? CT of his chest showed no pulmonary emboli.? He had an infiltrate in the posterior basilar segment of the right lower lobe that was more prominent than previously seen.? He also had some increased markings in the posterior basal segment left lower lobe.? He was admitted to the intensive care unit and required higher oxygen requirements than he usually needs at home.? His baseline oxygen needs are 6 L/min per tracheostomy mask.? He did require up to 10 L/min.? He was placed on Mucomyst and DuoNeb aerosol treatments and treated with IV Zosyn and vancomycin.? When his blood cultures came back no growth and sputum grew MRSA the Zosyn was discontinued.? Dr. Maddie Caldera, travel registered nurse pacu was consulted.? See her consult note from 08/05/2021 for details.? Her recommendation is that we put him through a decontamination process of chlorhexidine showers weekly for a month and put him on 28-day course of Bactrim and vancomycin nebulizer treatments to reduce his MRSA burden and do this on a 1 month on and 1 month off schedule.? Patient's clinical condition improved he was transferred out of the medical intensive care unit as his oxygen needs declined and he was down to a baseline of 5 L/min per tracheostomy mask.? Physical therapy was consulted and patient was ambulating with a front wheel walker without significant dyspnea.? He will desaturate down to 81% and required 8 L of oxygen per minute via tracheostomy mask to get his oxygen saturation back up to 91% after 1 minute rest.? He was walking up to 260 feet with a front wheel walker and standby assistance.? PT recommended home services including home health physical therapy services to progress his mobility using least restrictive assistive ambulatory devices and to assess his home safety and to identify any additional equipment needs and to establish a functional maintenance program that will increase ability the patient to remain within his home.? He was discharged home in markedly improved condition.? He will follow up with Dr. Maddie Caldera as an outpatient.? Our pharmacy provided 4 days worth of the vancomycin solution to be nebulized.? He is to do these nebulizer treatments twice a day.? He will start on Bactrim DS daily and take this for 28 days. While the patient was here we consulted with surgery to have his G-tube changed as he was scheduled for his feeding tube to be exchanged. This was performed by Dr. Nancy Riley on 08/06/2021 Home Meds and New Rx's Prescriptions: New chlorhexidine gluconate [Antiseptic Skin Clnsr(chlorhe)] 4 % liquid 1 applic topical .weekly Qty: 3800 3RF Rx Instructions: apply chlorhexidine over entire body avoiding the eyes and mouth once a week for 4 weeks sulfamethoxazole-trimethoprim [Bactrim DS] 800-160 mg tablet 1 tab PO DAILY Qty: 28 0RF Continued omeprazole 20 mg capsule,delayed release(DR/EC) 20 mg feeding tube BID Qty: 90 4RF acetylcysteine 100 mg/mL (10 %) solution 4 ml inhalation BID 0RF amlodipine 5 mg tablet 5 mg PO DAILY 0RF gabapentin 100 mg capsule 200 mg PO BID 0RF levothyroxine 112 mcg/mL solution 112 mcg PO DAILY 0RF ropinirole 1 mg tablet 1 mg PO BID 0RF alfuzosin [Uroxatral] 10 mg tablet extended release 24 hr 10 mg PO DAILY Qty: 90 3RF finasteride 5 mg tablet 5 mg PO DAILY Qty: 90 3RF rosuvastatin 40 mg tablet 40 mg feeding tube HS Qty: 90 4RF citalopram 20 mg tablet 20 mg PO DAILY Qty: 90 4RF ipratropium-albuterol 0.5 mg-3 mg(2.5 mg base)/3 mL solution for nebulization 3 ml IN QID PRN (Reason: shortness of breath or wheezing) Qty: 90 4RF Rx Instructions: increased dose/use treatment 4 times/day as needed NOT SENT Vancomycin 250 mg NEB BID 28 Days Qty: 20 12RF Rx Instructions: 250mg vancomycin in 5 cc of sterile water for nebulization To be given every other month for 28 consecutive days melatonin 3 MG tablet 6 mg PO HS 0RF aspirin 81 mg Tablet,Chewable 81 mg feeding tube DAILY 0RF ipratropium-albuterol 0.5 mg-3 mg(2.5 mg base)/3 mL Solution For Nebulization 3 ml INHALATION BID 0RF acetaminophen 500 mg Tablet 1,000 mg PO BID@1300,2100 0RF Align 4 mg Capsule 4 mg PO QPM 0RF ferrous sulfate [FeroSul] 325 mg (65 mg iron) tablet 325 mg PO DAILY 0RF Label Comments: TAKE 1 TABLET VIA FEEDING TUBE ONCE DAILY Discharge Instructions Instructions: Chronic Lung Disease and Infection Prevention (DC), Energy Conservation Techniques (DC), Dyspnea Scale and Exercise (DC), Nutrition Guidelines for People with COPD (DC), Acute Respiratory Failure (GEN) Stand Alone Forms: Nursing Discharge Form Referrals: Bryce King MD [ [facility] STAFF PHYSICIAN] - 08/16/21 9:40 am (will establish care at [facility]) Maddie Sevilla MD [ [facility] STAFF PHYSICIAN] - 08/21/21 2:00 pm () Activity:: Activity as Tolerated Equipment/Supplies:: No Equipment Needed Diet:: Normal Diet Discharge Orders Discharge Orders: Discharge Order (Routine); Ordered 08/07/21 Ordered By: Pablo Brooks DS: Summary Time Spent with Patient providing and/or coordinating discharge services: Less than 30 minutes Specific discharge activities: Prescriptions, arranging follow-up, education Status at Discharge Functional status at discharge: uses cane/walker Overall status at discharge: patient is progressing back to baseline Mental Status: mental status grossly normal Speech and Movement: speech and movement normal Mood: congruent mood Affect: normal affect Exam Narrative Exam Narrative: Changes in his chair he is alert and oriented person place time circumstance. He is able to talk to me in complete paragraphs using his mechanical electronic voice box. Lungs are clear with quiet respirations but with forceful exhalation I can hear some scattered expiratory wheezes Heart regular rate and rhythm Abdomen soft nondistended nontender G-tube is in place and was changed yesterday by Dr. Riley. Lower extremities without peripheral edema Psych Mental Status: mental status grossly normal Speech and Movement: speech and movement normal Mood: congruent mood Affect: normal affect DS: Data Vitals/I&O Vitals and I&O: Vital Signs Temperature 36.4 C L 08/07/21 07:46 Temperature Source Tympanic 08/07/21 07:46 Pulse 93 H 08/07/21 09:15 Pulse Rhythm Regular 08/07/21 08:50 Pulse 99 H 08/06/21 00:01 Respiratory Rate 20 08/07/21 09:15 Respiratory Effort 08/07/21 08:50 Respiratory Depth Normal 08/07/21 08:50 Respiratory Pattern Normal 08/07/21 08:50 Blood Pressure 105/83 08/07/21 07:46 Blood Pressure Mean 100 08/06/21 00:01 Blood Pressure Position Sitting 08/04/21 15:13 Pulse Oximetry 96 08/07/21 10:55 Oxygen Delivery Method Trach Collar 08/07/21 10:55 Oxygen Flow Rate 5 08/07/21 10:55 Fraction of Inspired Oxygen (FIO2) 35 08/05/21 18:30 Pain Level 2 08/06/21 15:15 Comment 08/03/21 08:16 Intake & Output 08/06/21 08/07/21 08/07/21 23:59 11:59 23:59 Intake Total 200 / 520 250 / 250 Output Total 350 / 1650 1300 / 1300 Balance -150 / -1130 -1050 / -1050 Weight 66.6 kg Intake: IV 200 / 400 Oral 250 / 250 Output: Urine 350 / 1650 1300 / 1300 Other: Urine Color Yellow Yellow Urine Appearance Clear Clear Urine Odor Normal Normal Comment Per patient he has been voiding in toilet pT had 500 in commode upon arrival, then voided 300 at this time. Voiding Methods Urinal Bedside Commode Data Completed and Pending Labs on day of discharge: Preliminary micro results at discharge 08/03/21 14:17 Blood Culture - Preliminary Blood NO GROWTH 72 HOURS 08/03/21 14:05 Blood Culture - Preliminary Blood NO GROWTH 72 HOURS PFSH All Active Problems (Updated 08/07/21 @ 13:55 by Pablo Brooks) Full code status (Acute) Need for home health care (Acute) MRSA pneumonia (Acute) pt likely colonized Occlusion of right vertebral artery (Acute) Conjunctivitis (Acute) Oral thrush (Acute) Discharge planning issues (Acute) DVT prophylaxis (Acute) Right lower lobe pneumonia (Acute) Acute and chronic respiratory failure with hypoxia (Acute) Hypoxemia (Acute) URI (upper respiratory infection) (Acute) Neck pain on left side (Acute) Shortness of breath (Acute) Complication of feeding tube (Acute) Peripheral neuropathy (Acute 02/21/15) PAOD (peripheral arterial occlusive disease) (Acute) COPD (chronic obstructive pulmonary disease) (Chronic) G tube feedings (Acute) changed 10/04 18F 3cm 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 (Acute) Compression fracture of thoracolumbar vertebra (Acute) Dependence on supplemental oxygen (Chronic) Medical History (Updated 08/07/21 @ 13:55 by Pablo Brooks) 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 Anemia Anxiety Anxiety 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 Blockage of feeding tube 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/17) CAD (coronary artery disease) Chronic respiratory failure with hypoxia Complication of feeding tube Conjunctivitis, chronic COPD (chronic obstructive pulmonary disease) Cortical cataract of right eye Depression Depressive disorder (11/18/12) Dyspnea on exertion Feeding tube dysfunction Hematoma following procedure Herpes zoster History of alcoholism sober x 25yrs History of tobacco use Hyperlipemia Hyperlipidemia (11/18/12) Hypertension Hypertension (11/18/12) Hypothyroidism Hypothyroidism (11/18/12) Impingement syndrome, shoulder, left (10/10/16) -2016: PT sugg. 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) Sin-mullins button placed by Dr Elia Mcdonald, [facility] History of esophagogastroduodenoscopy (EGD) (~08/10/19) Daron Casper APRN @ [facility]: hiatal hernia, GERD, Reyes's esophagitis, neuromuscular dysfunction History of laryngectomy History of radical laryngectomy History of tarsorrhaphy PROCEDURES RT/LEFT HEART CARD CATH COMPLETE LARYNGECTOMY Esophagoplasty S/P AAA (abdominal aortic aneurysm) repair Status post cardiac catheterization Status post cataract extraction and insertion of intraocular lens of left eye (04/30/12) Status post cataract extraction and insertion of intraocular lens of right eye (07/12/18) Status post laryngectomy Social History Smoking/Tobacco Use Status: Former Tobacco Use Tobacco: How many years used: 30 Smoking risk assessment performed?: Yes Alcohol Intake: never Drug use: Never Substance use type: does not use Current gender identity: male Do you feel safe at home: Yes Do you feel safe in your relationship?: Yes
[2021-08-07 13:40] VITALS: PULSE 89; RESP 16; RESP 2; RESP 5; RESP 6; RESP 8; O2SAT 93
--- NOTE | 2021-08-07 14:16 | CMDISCH_ITS ---
- If Service Date Differs Date of service: 08/07/21 Time of Service: 14:16 LACE Index Scoring Tool - Questions: Length of Stay (in days): 4 - 6 Acuity (Admit via E.D.?): Yes Comorbidities: Chronic Pulmonary Disease, Any Tumor E.D. Visits: 6 - Answers: Total Score: 16 Risk of Readmission: High Risk Care Management Discharge Reason for Hospitalization: Acute on chronic hypoxic respiratory failure, RLL Discharge Plan: Chan returned home today with new orders for Rn, PT, OT. CM informed [facility] today of his discharge. His caregiver and partner drove him home, after being present for discharge instructions and support from his RN and RT. He will follow up with his PCP and discharge plan of care. He is happy to be going home. Patient/Family Education Needs: Review discharge instructions with Jamarcus, discussion of self care needs including ask me three. Services Needed at Discharge: Home Health Care Services ( RN, PT, OT)
--- NOTE | 2021-08-07 14:25 | PDOC.HHF2F ---
Home Health Certification Home Health Certification: 1. Encounter Date and Reason I certify that Chan Nevarez was seen by Pablo Brooks on 08/07/21 and that I had a [id number] encounter with this patient that meets the physician face to face encounter requirements. 2. Clinical Findings Supporting Skilled Need and Homebound Status I certify that home health services are medically necessary, include either intermittent correction and/or physical/speech therapy, and that this patient is homebound in that absences from the home require considerable and taxing effort and are infrequent or of short duration, or are attributable to the need to receive medical care. [X] (a) Attached documentation from encounter provides clinical findings supporting skilled need and homebound status (including what assistance patient requires to leave the home). The encounter with the patient was in whole, or in part, for the following medical condition, which is the primary reason for home health care: Acute on Chronic Hypoxic Respiratory Failure, RLL Fci: longterm to monitor the patient's respiratory status and provide education the patient and his caregiver regarding his medications his aerosol treatments as chlorhexidine baths. Nursing to coordinate with the patient's commissary assistant any medication changes and any follow-up testing. Physical Therapy: Physical therapy and Occupational Therapy to evaluate and treat the patient regarding deconditioning related to his acute on chronic respiratory failure Speech Therapy: Homebound: Patient is homebound secondary to his recent exacerbation of his chronic respiratory failure and pneumonia which is deconditioned to the point that it makes seeking medical treatment outside his home hazardous to his health 3. Certification and Authentication I certify that I composed the above information based on my clinical judgement relating to this patient's medical condition and, if applicable, clinical findings communicated to me by the NPP or inpatient physician who performed the Home Health Referral. All further orders will be obtained through Dr. Maddie Caldera (Community Based Physician - PCP)
== END 2021-08-07 14:54 | disposition home health service (06) | DRG 177 ==
LOC: ER 20:53 → ICU 23:50 → MS 08-06 00:49
PROVIDERS: Family Medicine; Physician Assistant; Admitting Provider Internal Medicine; Emergency Provider Emergency Medicine; Visit Provider Internal Medicine
DX: J15.212 Pneumonia due to Methicillin resistant Staphylococcus aureus (principal); J96.21 Acute and chronic respiratory failure with hypoxia; J44.0 Chronic obstructive pulmonary disease with (acute) lower respiratory infection; B37.0 Candidal stomatitis; I65.01 Occlusion and stenosis of right vertebral artery; R13.10 Dysphagia, unspecified; Z93.1 Gastrostomy status; Z99.81 Dependence on supplemental oxygen; Z90.02 Acquired absence of larynx; Z85.21 Personal history of malignant neoplasm of larynx; I65.23 Occlusion and stenosis of bilateral carotid arteries; I77.9 Disorder of arteries and arterioles, unspecified; G62.9 Polyneuropathy, unspecified; Z87.891 Personal history of nicotine dependence; E03.9 Hypothyroidism, unspecified; I10 Essential (primary) hypertension; E78.5 Hyperlipidemia, unspecified; F32.A Depression, unspecified; I25.10 Atherosclerotic heart disease of native coronary artery without angina pectoris; H10.30 Unspecified acute conjunctivitis, unspecified eye; B95.62 Methicillin resistant Staphylococcus aureus infection as the cause of diseases classified elsewhere; Z93.0 Tracheostomy status; M54.2 Cervicalgia
CPT/HCPCS: 43762; 36415; 70498; 71275; 80048; 80053; 84145; 87040; 87077; 87635; 87637; 93005; 96365; 96366; 96367; 96375; 96376; 97110; 97163; 97530; 99222; 99291; J1650; 71045; 83605; 83735; 84100; 84484; 85025; 85049; 87070; 87186; 87205; 93010; 94640; 94667; 94760; 99232; 99238; J1100; J2270; J2543; J3360; J3490; J7512; J7608; J7620

== ENCOUNTER 2021-10-02 03:01 | Outpatient (CLI) | payer MEDICARE, MEDICAID, SELFPAY ==
[2021-10-02 12:31] LABS: Abs Immature Grans 0.04 10^3/uL (0.0-0.06); Absolute Basophil Count 0.15 10^3/uL (0.0-0.2); Absolute Eosinophil Count 0.46 10^3/uL (0.0-0.7); Absolute Lymphocyte Count 1.09 10^3/uL (1.2-3.4); Absolute Monocyte Count 0.88 10^3/uL (0.1-0.8); Basophils % 1.4; Eosinophils % 4.2; HCT 47.2 % (40.0-50.0); HGB 15.4 g/dL (13.5-17.5); Immature Grans % 0.4; Lymphocytes % 9.9; MCH 31.2 pg (27.0-33.0); MCHC 32.6 % (32.0-36.0); MCV 95.5 fL (80-95); MPV 9.8 fL (8.0-11.0); Neutrophils % 76.1; Platelet Count 255 10^3/uL (130-400); RBC 4.94 10^6/uL (4.36-5.78); RDW 13.4 % (11.8-14.1); RDW-SD 47.8 fL; WBC 11.06 10^3/uL (4.4-10.8)
[2021-10-02 12:34] LABS: Absolute Neutrophil Count 8.42 10^3/uL (1.2-6.7)
[2021-10-02 12:50] LABS: ALT 25 U/L (16-63); AST 25 U/L (15-37); Albumin 3.6 g/dL (3.4-5.0); Alkaline Phosphatase 109 U/L (46-116); Anion Gap 6.9 mmol/L (3-11); BUN 27 mg/dL (7-18); Bilirubin, Total 0.5 mg/dL (0.2-1.0); CO2 36.1 mmol/L (21.0-32.0); CREATININE 0.9 mg/dL (0.70-1.30); Calcium 8.9 mg/dL (8.5-10.1); Chloride 99 mmol/L (98-107); Glucose 116 mg/dL (74-106); Potassium 3.1 mmol/L (3.5-5.1); Sodium 142 mmol/L (136-145); Total Protein 7.8 g/dL (6.4-8.2); Vancomycin, Random 1.1 ug/mL
== END 2021-10-02 03:02 | disposition home or self-care (01) ==
LOC: LBO 03:01
PROVIDERS: PCP Physician Assistant Medical; Visit Provider Student in an Organized Health Care Education/Training Program
DX: J15.212 Pneumonia due to Methicillin resistant Staphylococcus aureus (principal); Z51.81 Encounter for therapeutic drug level monitoring; Z79.2 Long term (current) use of antibiotics
CPT/HCPCS: 36415; 80053; 80202; 85025

== ENCOUNTER → 2021-11-25 10:29 | Outpatient (BNVA) | payer MEDICARE, MEDICAID, SELFPAY | PROVIDERS: PCP Physician Assistant Medical; Referring Provider Physician Assistant Medical; Visit Provider Surgery | DX: K94.20 Gastrostomy complication, unspecified (principal) | CPT/HCPCS: 99212 ==

== ENCOUNTER 2021-12-03 18:49 | Outpatient (REF) | payer MEDICARE, MEDICAID, SELFPAY ==
[2021-12-03 19:49] LABS: BUN 28 mg/dL (7-18); CREATININE 0.8 mg/dL (0.70-1.30); Calcium 8.6 mg/dL (8.5-10.1); Chloride 99 mmol/L (98-107); Glucose 108 mg/dL (74-106); Potassium 3.8 mmol/L (3.5-5.1); Sodium 138 mmol/L (136-145)
== END 2021-12-03 18:50 | disposition home or self-care (01) ==
LOC: LBN 18:49
PROVIDERS: PCP Physician Assistant Medical; Visit Provider Student in an Organized Health Care Education/Training Program
DX: J15.212 Pneumonia due to Methicillin resistant Staphylococcus aureus (principal)
CPT/HCPCS: 80048

== ENCOUNTER → 2022-03-13 10:37 | Outpatient (BNVA) | payer MEDICARE, MEDICAID, SELFPAY | PROVIDERS: PCP Physician Assistant Medical; Referring Provider Physician Assistant Medical; Visit Provider Surgery | DX: R13.19 Other dysphagia (principal) | CPT/HCPCS: 43762; 99212 ==

== ENCOUNTER 2022-06-08 23:06 | Emergency (ER) | payer MEDICARE, MEDICAID, SELFPAY ==
--- NOTE | 2022-06-08 23:10 | ED.GENADUL_ITS ---
Discharge Plan Disposition Patient Disposition: Home Condition: Good Discharge Details Clinical Impression: Chest wall discomfort, Acute hypokalemia Primary Care Provider: Nazia Chan ED Provider: Francisco Lindsey Home Meds and New Rx's Prescriptions: No Action acetylcysteine [NAC] 600 mg capsule 600 mg PO BID Qty: 60 12RF sulfamethoxazole-trimethoprim [Bactrim] 400-80 mg tablet 1 tab PO DAILY Qty: 30 7RF Rx Instructions: Take 1 tab every day, every other month. Use on the same schedule has the nebulized vancomycin. ropinirole 1 mg tablet 1 mg PO BID aspirin [Adult Aspirin Regimen] 81 mg tablet,delayed release (DR/EC) 81 mg PO DAILY sertraline 100 mg tablet 100 mg PO DAILY Qty: 30 1RF polyethylene glycol 3350 [Miralax] 17 gram/dose powder 17 g PO DAILY PRN (Reason: constipation) acetaminophen [Tylenol Extra Strength] 500 mg tablet 1,000 mg PO BID PRN omeprazole 20 mg capsule,delayed release(DR/EC) 20 mg feeding tube BID Qty: 90 4RF acetylcysteine 100 mg/mL (10 %) solution 4 ml inhalation BID amlodipine 5 mg tablet 5 mg PO DAILY gabapentin 100 mg capsule 200 mg PO BID alfuzosin [Uroxatral] 10 mg tablet extended release 24 hr 10 mg PO DAILY Qty: 90 3RF finasteride 5 mg tablet 5 mg PO DAILY Qty: 90 3RF rosuvastatin 40 mg tablet 40 mg feeding tube HS Qty: 90 4RF ipratropium-albuterol 0.5 mg-3 mg(2.5 mg base)/3 mL solution for nebulization 3 ml IN QID PRN (Reason: shortness of breath or wheezing) Qty: 90 4RF Rx Instructions: increased dose/use treatment 4 times/day as needed NOT SENT Vancomycin 250 mg NEB BID 28 Days Qty: 280 12RF Rx Instructions: 250mg vancomycin in 5 cc of sterile water for nebulization To be given every other month for 28 consecutive days prednisone 20 mg tablet 40 mg PO DAILY Qty: 14 0RF melatonin 3 MG tablet 6 mg PO HS Align 4 mg Capsule 4 mg PO QPM ferrous sulfate [FeroSul] 325 mg (65 mg iron) tablet 325 mg PO DAILY Label Comments: TAKE 1 TABLET VIA FEEDING TUBE ONCE DAILY Discharge Instructions Instructions: Chest Pain (ED), Hypokalemia (ED) Additional Instructions: At this time your work-up shows no evidence of significant cardiac abnormality. CAT scan of your chest shows no signs of blood clots or other abnormality. Your potassium is low, please stick with a diet high in potassium. If you notice any worsening of your symptoms, or any new symptoms such as vomiting, diarrhea, fever, chills, shortness of breath, chest pain, numbness, weakness, or fainting , please return immediately to the emergency department for reevaluation. Please follow up with your primary care provider as soon as possible for reassessment and reevaluation. As always, it was a pleasure part icipating in your medical care today. Medical Decision Making This is a very pleasant 77-year-old male with a past medical history of COPD, abdominal aneurysm, and throat cancer 10 years ago for which he received radiation at that time, but nothing since then.? Unfortunately secondary to this he has had tracheal stenosis, requiring a tracheostomy.? He recently had multiple revisions, including a graft with skin taken from his left shoulder and placed over his tracheostomy site. Who is a palliative care patient, with a history of chronic MRSA pneumonia, who presents today for evaluation of left-sided chest pain. Pain began at about 9 PM, he describes it as coming and going, and mild but also tingling in nature. Goes from his left arm to his left chest. No exertional component. He does have some improvement when he lies down flat though. Denies any vomiting or diarrhea. No fever or chills. No history of VT in the past. No change in breathing. No other complaints at this time. exam demonstrates well-appearing male, mild rhonchorous breath sound on the left, which is likely chronic component. Vital signs stable. Vascular exam normal. No point tenderness on his arms neck or chest. Sensation intact at this time. We will evaluate for concerning etiologies including cardiac etiology, monitor closely and reassess. Symptoms appearing consistent with STEMI. EKG is stable. No neurologic deficits to suggest stroke. I did offer the patient a writing instrument for communication, but he requests and prefers communication through his tracheostomy assist device. 1:34 AM CTA is returned negative for any acute process. Troponin and EKG are stable. Laboratory work-up otherwise stable aside for low potassium at 3. Oral potassium was given. Patient feels well and would like to go home. I did offer repeat troponin but patient has declined. Patient will be discharged. Symptoms inconsistent with ACS at this time clinically. I have extensively reviewed the treatment plan and discharge instructions with the patient and their family. I have addressed all patient concerns at this time. The patient and family was made aware of what symptoms to monitor for that would warrant a return to the emergency department. Discussed the plan with the patient and family, they demonstrate verbal understanding and agreement with our assessment and plan at this time. The documentation in this chart was dictated using [employer] dictation software. Please excuse any dictation errors. FINDINGS: Pulmonary arteries: Normal. No pulmonary emboli. Aorta: Unremarkable. No aortic aneurysm. No aortic dissection. Lungs: Mild centrilobular pulmonary emphysema. No acute pulmonary infiltrate. Pleural spaces: Unremarkable. No pneumothorax. No pleural effusion. Heart: Unremarkable. No cardiomegaly. No pericardial effusion. Lymph nodes: Unremarkable. No enlarged lymph nodes. Bones/joints: Unremarkable. No acute fracture. Soft tissues: Unremarkable. IMPRESSION: No acute finding. Thank you for allowing us to participate in the care of your patient. Dictated and Authenticated by: Kalyan Bang MD 06/09/2022 12:59 AM Eastern Time ([place] & [place]) HPI General Date/Time Provider Initiated Documentation: 06/08/22 23:07 . HPI Narrative: This is a very pleasant 77-year-old male with a past medical history of COPD, abdominal aneurysm, and throat cancer 10 years ago for which he received radiation at that time, but nothing since then.? Unfortunately secondary to this he has had tracheal stenosis, requiring a tracheostomy.? He recently had multiple revisions, including a graft with skin taken from his left shoulder and placed over his tracheostomy site. Who is a palliative care patient, with a history of chronic MRSA pneumonia, who presents today for evaluation of left-sided chest pain. Pain began at about 9 PM, he describes it as coming and going, and mild but also tingling in nature. Goes from his left arm to his left chest. No exertional component. He does have some improvement when he lies down flat though. Denies any vomiting or diarrhea. No fever or chills. No history of VT in the past. No change in breathing. No other complaints at this time. Related Data Home Medications Medication Instructions Recorded Confirmed omeprazole 20 mg capsule,delayed 20 mg feeding tube BID #90 caps 10/05/19 06/08/22 release melatonin 3 mg tablet 6 mg PO HS 10/29/19 06/08/22 rosuvastatin 40 mg tablet 40 mg feeding tube HS #90 tabs 12/14/19 06/08/22 acetylcysteine 100 mg/mL (10 %) 4 ml inhalation BID 07/05/20 06/08/22 solution ipratropium 0.5 mg-albuterol 3 mg 3 ml IN QID PRN shortness of 07/30/20 06/08/22 (2.5 mg base)/3 mL nebulization breath or wheezing #90 mL soln amlodipine 5 mg tablet 5 mg PO DAILY 10/04/20 06/08/22 gabapentin 100 mg capsule 200 mg PO BID 10/04/20 06/08/22 alfuzosin 10 mg tablet,extended 10 mg PO DAILY BPH with luts #90 06/26/21 06/08/22 release 24 hr (Uroxatral) tab-caps finasteride 5 mg tablet 5 mg PO DAILY #90 tabs 06/26/21 06/08/22 Bifidobacterium infantis 4 mg 4 mg PO QPM 08/03/21 06/08/22 capsule (Align) ferrous sulfate 325 mg (65 mg 325 mg PO DAILY 08/05/21 06/08/22 iron) tablet (FeroSul) Vancomycin 250 mg NEB BID 28 days #280 mL 08/12/21 06/08/22 acetylcysteine 600 mg capsule (NAC) 600 mg PO BID #60 caps 08/21/21 06/08/22 sulfamethoxazole 400 1 tab PO DAILY #30 tabs 09/24/21 06/08/22 mg-trimethoprim 80 mg tablet (Bactrim) aspirin 81 mg tablet,delayed 81 mg PO DAILY 11/25/21 06/08/22 release (Adult Aspirin Regimen) ropinirole 1 mg tablet 1 mg PO BID 01/07/22 06/08/22 acetaminophen 500 mg tablet 1,000 mg PO BID PRN 03/05/22 06/08/22 (Tylenol Extra Strength) polyethylene glycol 3350 17 17 g PO DAILY PRN constipation 03/05/22 06/08/22 gram/dose oral powder (Miralax) prednisone 20 mg tablet 40 mg PO DAILY #14 tabs 04/07/22 06/08/22 sertraline 100 mg tablet 100 mg PO DAILY #30 tabs 05/29/22 06/08/22 Previous Rx's Medication Instructions Recorded omeprazole 20 mg capsule,delayed 20 mg feeding tube BID #90 caps 10/05/19 release rosuvastatin 40 mg tablet 40 mg feeding tube HS #90 tabs 12/14/19 ipratropium 0.5 mg-albuterol 3 mg 3 ml IN QID PRN shortness of 07/30/20 (2.5 mg base)/3 mL nebulization breath or wheezing #90 mL soln alfuzosin 10 mg tablet,extended 10 mg PO DAILY BPH with luts #90 06/26/21 release 24 hr (Uroxatral) tab-caps finasteride 5 mg tablet 5 mg PO DAILY #90 tabs 06/26/21 Vancomycin 250 mg NEB BID 28 days #280 mL 08/12/21 acetylcysteine 600 mg capsule (NAC) 600 mg PO BID #60 caps 08/21/21 sulfamethoxazole 400 1 tab PO DAILY #30 tabs 09/24/21 mg-trimethoprim 80 mg tablet (Bactrim) prednisone 20 mg tablet 40 mg PO DAILY #14 tabs 04/07/22 sertraline 100 mg tablet 100 mg PO DAILY #30 tabs 05/29/22 Allergies Allergy/AdvReac Type Severity Reaction Status Date / Time pollen extracts Allergy Mild Verified 06/08/22 23:29 Tetracyclines Allergy Unknown SKIN RASH Verified 06/08/22 23:29 General CHER: 2 Review of Systems All systems reviewed & are unremarkable except as noted in HPI and below PFSH All Active Problems (Updated 06/09/22 @ 01:19 by Francisco Lindsey DO) Chest wall discomfort (Acute) Acute hypokalemia (Acute) Weakness (Acute) Impaired instrumental activities of daily living (Acute) Plantar fascial fibromatosis (Acute) Feeding tube dysfunction (Acute) Sensorineural hearing loss (SNHL) of both ears (Acute) Otalgia of right ear (Acute) Neck pain on right side (Acute) Neck pain on right side (Acute) Full code status (Acute) Need for home health care (Acute) MRSA pneumonia (Acute) pt likely colonized Occlusion of right vertebral artery (Acute) Hypoxemia (Acute) Complication of feeding tube (Acute) Peripheral neuropathy (Acute 09/09/15) PAOD (peripheral arterial occlusive disease) (Acute) COPD (chronic obstructive pulmonary disease) (Chronic) G tube feedings (Acute) changed 10/04 18F 3cm 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: hiatal hernia, GERD, Reyes's esophagitis, neuromuscular dysfunction History of laryngectomy History of radical laryngectomy History of tarsorrhaphy PROCEDURES RT/LEFT HEART CARD CATH COMPLETE LARYNGECTOMY Esophagoplasty S/P AAA (abdominal aortic aneurysm) repair Status post cardiac catheterization Status post cataract extraction and insertion of intraocular lens of left eye (04/30/12) Status post cataract extraction and insertion of intraocular lens of right eye (07/12/18) Status post laryngectomy Family History Nephew Throat cancer Maternal Cousin Cancer Social History Smoking/Tobacco Use Status: Former Tobacco Use Tobacco: How many years used: 30 Smoking risk assessment performed?: Yes Alcohol Intake: never Drug use: Never Substance use type: does not use Current gender identity: male Do you feel safe at home: Yes Do you feel safe in your relationship?: Yes Exam Narrative Exam Narrative: 1.Const: Well-nourished, Well-developed, appearing stated age 2.Eyes: PERRL, no conjunctival injection, and symmetrical lids. 3.ENT: Atraumatic external nose and ears. Moist MM. Neck: Symmetric, tracheostomy site in place. No redness or drainage from that area. 4.CVS: +S1/S2, No murmurs or gallops. Peripheral pulses 2+ and equal in all extremities. Brisk capillary refill in all extremities. 5.RESP: Unlabored respiratory effort. Rhonchorous breath sound on the left. 6.GI: Soft, Nontender/Nondistended, No hepatosplenomegaly. No guarding or rebound. 7.MSK: Normocephalic/Atraumatic, Extremities w/o deformity or ttp No cyanosis or clubbing, Normal movement of all extremities, radial pulse +2 bilaterally. 8.Skin: Warm, Dry. No rashes or lesions. 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 Sensation grossly intact, no focal neurologic deficits. 10.Psych: (AAO) x3. Appropriate mood and affect
[2022-06-08 23:14] VITALS: PULSE 79; RESP 20; TEMP 37.2; O2SAT 90
--- NOTE | 2022-06-08 23:15 | RT.EKG_ITS ---
APPROVED REPORT Exam: Resting ECG Reason for Exam: chest pain Patient Location: E HR:74 bpm ECG Measurements Heart Rate 74 AXIS NM 221 P 48 QRSd 169 QRS 77 QT 441 T 9 QTc 491 Conclusion Sinus rhythm...normal P axis, V-rate 60- 99 Prolonged NM interval...NM >220, V-rate 50- 90 Probable left atrial enlargement...P >50mS, <-0.10mV V1 Right bundle branch block...QRSd>120, terminal axis(90,270) Physician: no stemi, stable from prior
--- NOTE | 2022-06-08 23:30 | DI.CT_ITS ---
Exam(s) CT CHEST PE CTA EXAM: CT CHEST PE CTA CLINICAL HISTORY: LEft sided chest pain. TECHNIQUE: Imaging Protocol: CT angiography of the chest was performed using pulmonary embolus dakota col. Multi planar reconstructions were performed. CONTRAST MATERIAL: Intravenous: Omnipaque 350 Contrast volume: 65 cc COMPARISON: CT CT CHEST PE CTA from 08/03/2021 CR,XR XR PORTABLE CHEST AP from 08/03/2021 FINDINGS: CHEST: PULMONARY ARTERIES: There are no intraluminal filling defects to suggest acute pulmonary emboli. LUNGS: Tracheostomy again noted. The amount of infiltrate in the posterior basal segment of the righ t lower lobe has decreased. The infiltrate in the lateral basal segment of the left lower lobe is un changed.. No new infiltrates in the upper lung lujan. There are no pleural effusions. MEDIASTINUM: No significant hilar nor mediastinal adenopathy. CARDIAC: Heart size upper normal. No pericardial effusion. No shift of the interventricular septum. Atherosclerotic thoracic aorta. Diameter of the ascending thoracic aorta is not enlarged. There is atherosclerotic involvement of the arch and descending thoracic aorta. Stent graft is again noted in the mid-lower thoracic aorta and extending into the visualized abdominal aorta and there are also bi lateral renal ostial stents as well as stents in both the celiac and superior mesenteric arteries. N o dissection evident. PARTIALLY VISUALIZED UPPERMOST ABDOMEN: Gastric PEG evident which appears to be in satisfactory posit ion. Gallstones noted. Partially visualized kidneys reveal no hydronephrosis. No adrenal masses. OSSEOUS: Wedge compression fracture of T12 is unchanged. Also loss of height of L1 superior endplate is unchanged. No new compression fractures.. IMPRESSION: 1. Compared to prior CT scan of July 2021 there is improvement in the right lower lobe infiltrate . The infiltrate in the lateral basal segment of the left lower lobe appears unchanged. No new infi ltrates nor pleural effusions..No pleural effusions. 2. Tracheotomy again noted. There is no prominent mucous in the trachea below this level nor in the mainstem bronchi. 3. No pulmonary emboli seen. No aortic dissection. Atherosclerotic involvement of the descending th oracic aorta and stent graft again noted in the lower thoracic aorta as well as abdominal aorta, as d escribed above. Gallstone noted as well as gastric PEG Wedge compression of T12 and compression fracture T1 are unchanged. No new fractures evident. RADIATION DOSE DELIVERED: 309.02mGy.cm Total DLP DATA REPOSITORY: All CT scans at this facility are submitted to the National Radiology Data Registry (NRDR) Dose Index Registry (DIR) with the [employer] (ACR). RADIATION OPTIMIZATION: All CT scans at this facility use at least one of these dose optimization te chniques: automated exposure control; mA and/or kV adjustment per patient size (includes targeted exa ms where dose is matched to clinical indication); or iterative reconstruction.
[2022-06-08 23:37] LABS: Abs Immature Grans 0.03 10^3/uL (0.0-0.06); Absolute Basophil Count 0.12 10^3/uL (0.0-0.2); Absolute Eosinophil Count 0.52 10^3/uL (0.0-0.7); Absolute Neutrophil Count 9.37 10^3/uL (1.2-6.7); Eosinophils % 4.2; HCT 39.7 % (40.0-50.0); HGB 13.2 g/dL (13.5-17.5); Immature Grans % 0.2; Lymphocytes % 9.8; MCH 31.7 pg (27.0-33.0); MCHC 33.2 % (32.0-36.0); MCV 95 fL (80-95); MPV 10.1 fL (8.0-11.0); Monocytes % 9.3; Neutrophils % 75.5; Platelet Count 218 10^3/uL (130-400); RBC 4.17 10^6/uL (4.36-5.78); RDW 12.8 % (11.8-14.1); RDW-SD 44.7 fL; WBC 12.41 10^3/uL (4.4-10.8)
[2022-06-08 23:41] LABS: Absolute Lymphocyte Count 1.22 10^3/uL (1.2-3.4); Absolute Monocyte Count 1.15 10^3/uL (0.1-0.8)
[2022-06-08 23:55] LABS: ALT 19 U/L (16-63); AST 27 U/L (15-37); Albumin 3.3 g/dL (3.4-5.0); Alkaline Phosphatase 85 U/L (46-116); Anion Gap 7.3 mmol/L (3-11); BUN 20 mg/dL (7-18); Bilirubin, Total 0.3 mg/dL (0.2-1.0); CO2 30.7 mmol/L (21.0-32.0); Calcium 8.7 mg/dL (8.5-10.1); Chloride 98 mmol/L (98-107); Glucose 133 mg/dL (74-106); Sodium 136 mmol/L (136-145); Total Protein 7.1 g/dL (6.4-8.2); Troponin I < 50 ng/L (<or=60)
[2022-06-09] MEDS: Normal Saline - Diluent 50 ML VIAL IJ (00:10)
[2022-06-09] MEDS: Omnipaque 350 MG/ML 100 ML BTL IJ (00:10)
[2022-06-09] MEDS: Normal Saline Flush 10 ML SYR IVP (00:11)
--- NOTE | 2022-06-09 01:00 | DI.VRAD_ITS ---
PROCEDURE INFORMATION: Exam: CTA Chest With Contrast Exam date and time: 06/09/2022 12:26 AM Age: 77 years old Clinical indication: Left-sided; Prior surgery; Surgery date: 6+ months; Surgery type: Heart card cath, egd; Patient HX: Left sided chest pain; Additional info: HX larygneal CA TECHNIQUE: Imaging protocol: Computed tomographic angiography of the chest with contrast. 3D rendering (Not supervised by radiologist): MIP and/or 3D reconstructed images were created by the technologist. Radiation optimization: All CT scans at this facility use at least one of these dose optimization techniques: automated exposure control; mA and/or kV adjustment per patient size (includes targeted exams where dose is matched to clinical indication); or iterative reconstruction. Contrast material: OMNIPAQUE 350; Contrast volume: 65 ml; Contrast route: INTRAVENOUS (IV); COMPARISON: CT CHEST PE CTA 08/03/2021 11:25 AM FINDINGS: Pulmonary arteries: Normal. No pulmonary emboli. Aorta: Unremarkable. No aortic aneurysm. No aortic dissection. Lungs: Mild centrilobular pulmonary emphysema. No acute pulmonary infiltrate. Pleural spaces: Unremarkable. No pneumothorax. No pleural effusion. Heart: Unremarkable. No cardiomegaly. No pericardial effusion. Lymph nodes: Unremarkable. No enlarged lymph nodes. Bones/joints: Unremarkable. No acute fracture. Soft tissues: Unremarkable. IMPRESSION: No acute finding. Dictated and Authenticated by: Kalyan Bang MD. Ordering:SHANITA Singh MD
[2022-06-09] MEDS: Potassium Chloride Liquid 20 MEQ PKT 40 MEQ PO (01:40)
--- NOTE | 2022-06-09 13:17 | NUR.NOTE ---
Nursing Note: Accessed patient chart to determine how many EKG orders were in the chart from the ED. There was an outstanding EKG in ordered status. There are no EKG's in the [facility] system that are outstanding. EKG order was deleted.
== END 2022-06-09 01:43 | disposition home or self-care (01) ==
PROVIDERS: Emergency Provider Student in an Organized Health Care Education/Training Program; PCP Physician Assistant Medical
DX: E87.6 Hypokalemia (principal); R07.89 Other chest pain; J44.9 Chronic obstructive pulmonary disease, unspecified; I10 Essential (primary) hypertension; I25.10 Atherosclerotic heart disease of native coronary artery without angina pectoris; E03.9 Hypothyroidism, unspecified; Z79.82 Long term (current) use of aspirin; Z79.52 Long term (current) use of systemic steroids; Z93.0 Tracheostomy status
CPT/HCPCS: 36415; 71275; 80053; 93005; 99285; 84484; 85025; 93010; J3490

== ENCOUNTER → 2022-06-13 10:42 | Outpatient (BNVA) | payer MEDICARE, MEDICAID, SELFPAY | PROVIDERS: PCP Physician Assistant Medical; Referring Provider Physician Assistant Medical; Visit Provider Surgery | DX: Z93.1 Gastrostomy status (principal) | CPT/HCPCS: 99212; 99213 ==

== ENCOUNTER 2022-06-17 04:01 | Outpatient (CLI) | payer MEDICARE, MEDICAID, SELFPAY ==
[2022-06-17 12:40] LABS: TSH 0.06 uIU/mL (0.36-3.74)
== END 2022-06-17 04:02 | disposition home or self-care (01) ==
LOC: LBO 04:02
PROVIDERS: PCP Physician Assistant Medical
DX: E03.9 Hypothyroidism, unspecified (principal); R79.89 Other specified abnormal findings of blood chemistry
CPT/HCPCS: 36415; 84443

== ENCOUNTER → 2022-06-25 14:58 | Outpatient (BNVA) | payer MEDICARE, MEDICAID, SELFPAY | PROVIDERS: PCP Physician Assistant Medical; Referring Provider Physician Assistant Medical; Visit Provider Nurse Practitioner Gerontology | DX: N40.1 Benign prostatic hyperplasia with lower urinary tract symptoms (principal); N13.8 Other obstructive and reflux uropathy; R39.89 Other symptoms and signs involving the genitourinary system | CPT/HCPCS: 51798; 99214 ==

== ENCOUNTER → 2022-09-02 13:20 | Outpatient (BNVA) | payer MEDICARE, MEDICAID, SELFPAY | PROVIDERS: PCP Physician Assistant Medical; Referring Provider Physician Assistant Medical; Visit Provider Surgery | DX: K94.13 Enterostomy malfunction (principal) | CPT/HCPCS: 43762; 99212 ==

== ENCOUNTER 2022-09-22 00:39 | Outpatient (CLI) | payer MEDICARE, MEDICAID, SELFPAY ==
--- NOTE | 2022-09-22 | DI.CT_ITS ---
Exam(s) CT NECK W EXAM: CT NECK W CLINICAL HISTORY: HX LARYNGEAL CANCER Z85.21 HX LARYNGECTOMY Z90.02 DYSPHAGIA R13.10 THROAT. TECHNIQUE: Imaging Protocol: Axial computed tomography images with coronal and sagittal reformatted images were created and reviewed. CONTRAST MATERIAL: Intravenous: Omnipaque 350 Contrast volume:100mL COMPARISON: CT CT neck w from 09/03/[address] CAROTID NECK CTA from 08/03/2021 FINDINGS: Orbits and orbital soft tissues: There is again seen soft tissue in the posterior aspect of the left globe which may represent a detached retina. Please correlate clinically. Visualized paranasal sinuses: Within normal limits. Nasopharynx: Within normal limits. Oropharynx: Within normal limits. Larynx: There are postsurgical changes of a laryngectomy. Stable postsurgical soft tissue is seen. No evidence of a recurrent mass is appreciated. Retropharyngeal space: Within normal limits. Parotids/submandibular: The parotid glands are unremarkable. The submandibular glands are absent. Thyroid gland: The thyroid gland is absent. Lymphadenopathy: There are stable lymph nodes seen in the submandibular region. The largest has a s hort axis diameter of 0.6 cm. No significant cervical adenopathy is appreciated. Trachea: Status post laryngectomy. Lung apices: Emphysematous changes are seen in the lung apices. Bones: Within normal limits for the patient's age. There is again seen a nonunited fracture of the l eft posterior ring of C1. Since the prior examination, fractures of both the posterior ring and the anterior rings of C1 have occurred. They are nonunited. There is 4 mm anterolisthesis of C4 on C5. This is unchanged. The craniocervical junction is unchanged. Carotids/Jugular: Atherosclerosis is present. This is unchanged. Soft tissues: No evidence of a soft tissue mass. IMPRESSION: 1. Stable postsurgical changes of a laryngectomy. No evidence of a residual recurrent mass. No evid ence of cervical adenopathy. 2. Since the prior examination fractures of both the posterior and anterior rings of C1 have occurred . The fractures are nonunited. 3. Emphysematous changes in the lung apices. RADIATION DOSE DELIVERED: 346.53mGy.cm Total DLP 346.53mGy.cm Total DLP DATA REPOSITORY: All CT scans at this facility are submitted to the National Radiology Data Registry (NRDR) Dose Index Registry (DIR) with the [employer] (ACR). RADIATION OPTIMIZATION: All CT scans at this facility use at least one of these dose optimization te chniques: automated exposure control; mA and/or kV adjustment per patient size (includes targeted exa ms where dose is matched to clinical indication); or iterative reconstruction.
[2022-09-22 14:38] LABS: CREATININE 0.9 mg/dL (0.70-1.30); Estimated GFR 88.51 (mL/min/1.73m2); TSH 0.06 uIU/mL (0.36-3.74)
[2022-09-22] MEDS: Omnipaque 350 MG/ML 500 ML BTL-Imaging package IJ (14:41)
[2022-09-22] MEDS: Normal Saline - Diluent 50 ML VIAL IJ (14:43)
== END 2022-09-22 00:59 ==
LOC: DI 00:40
PROVIDERS: PCP Physician Assistant Medical; Visit Provider Physician Assistant
DX: E03.9 Hypothyroidism, unspecified (principal); Z85.21 Personal history of malignant neoplasm of larynx; Z90.02 Acquired absence of larynx; R13.10 Dysphagia, unspecified; R93.0 Abnormal findings on diagnostic imaging of skull and head, not elsewhere classified
CPT/HCPCS: 70491; 82565; 84443

== ENCOUNTER → 2022-10-24 11:19 | Outpatient (BNVA) | payer MEDICARE, MEDICAID, SELFPAY | PROVIDERS: PCP Physician Assistant Medical; Referring Provider Physician Assistant Medical; Visit Provider Urology | DX: R30.0 Dysuria (principal); R39.89 Other symptoms and signs involving the genitourinary system | CPT/HCPCS: 81003; 99214 ==

== ENCOUNTER 2022-10-24 17:23 | Outpatient (REF) | payer MEDICARE, MEDICAID, SELFPAY | END 2022-10-24 17:24 | disposition home or self-care (01) | LOC: LBN 17:23 | PROVIDERS: PCP Physician Assistant Medical; Visit Provider Urology | DX: N39.0 Urinary tract infection, site not specified (principal) | CPT/HCPCS: 87086 ==

== ENCOUNTER 2022-11-21 13:57 | Emergency (ER) | payer MEDICARE, MEDICAID, SELFPAY ==
[2022-11-21 14:07] VITALS: BP 152/80; PULSE 72; RESP 20; TEMP 37; O2SAT 95
--- NOTE | 2022-11-21 14:34 | W.ED.GENAD ---
Discharge Plan Disposition Patient Disposition: Home Condition: Stable Discharge Details Chief Complaint: GenMedical Clinical Impression: Restless leg syndrome Primary Care Provider: Nazia Chan ED Provider: Fabian Vazquez Home Meds and New Rx's Prescriptions: No Action finasteride 5 mg tablet 5 mg PO DAILY Qty: 90 3RF alfuzosin [Uroxatral] 10 mg tablet extended release 24 hr 10 mg PO DAILY Qty: 90 3RF sulfamethoxazole-trimethoprim [Bactrim] 400-80 mg tablet 1 tab PO DAILY Qty: 30 7RF Rx Instructions: Take 1 tab every day, every other month. Use on the same schedule has the nebulized vancomycin. ropinirole 1 mg tablet 1 mg PO BID aspirin [Adult Aspirin Regimen] 81 mg tablet,delayed release (DR/EC) 81 mg PO DAILY acetaminophen [Tylenol Extra Strength] 500 mg tablet 1,000 mg PO BID PRN prednisone 10 mg tablet 10 mg PO DIRECTED Qty: 42 0RF Rx Instructions: Take 4 tabs daily for 5 days, 3 tabs for 3 days, 2 tabs for 3 days, 1 tab for 3 days, 0.5 tabs for 3 days omeprazole 20 mg capsule,delayed release(DR/EC) 20 mg feeding tube BID Qty: 90 4RF acetylcysteine 100 mg/mL (10 %) solution 4 ml inhalation BID amlodipine 5 mg tablet 5 mg PO DAILY gabapentin 100 mg capsule 200 mg PO BID levothyroxine See Rx Instructions .ROUTE DIRECTED Rx Instructions: as directed; rosuvastatin 40 mg tablet 40 mg feeding tube HS Qty: 90 4RF ipratropium-albuterol 0.5 mg-3 mg(2.5 mg base)/3 mL solution for nebulization 3 ml IN QID PRN (Reason: shortness of breath or wheezing) Qty: 90 4RF Rx Instructions: increased dose/use treatment 4 times/day as needed NOT SENT prednisone 20 mg tablet 40 mg PO DAILY Qty: 14 0RF polyethylene glycol 3350 [Miralax] 17 gram/dose powder 17 g PO DAILY PRN (Reason: constipation) Rx Instructions: 06/19/22 instructed by PCP to take 1/2 cap daily, may reduce to half cap three times per week if daily is too much acetylcysteine [NAC] 600 mg capsule 600 mg PO BID Qty: 60 12RF Vancomycin 250 mg NEB BID 28 Days Qty: 280 12RF Rx Instructions: 250mg vancomycin in 5 cc of sterile water for nebulization To be given every other month for 28 consecutive days sertraline 50 mg tablet 50 mg PO DAILY Qty: 30 2RF Rx Instructions: decreased by PCP on 06/19/22 melatonin 3 MG tablet 6 mg PO HS Align 4 mg Capsule 4 mg PO QPM ferrous sulfate [FeroSul] 325 mg (65 mg iron) tablet 325 mg PO DAILY Patient Comments: TAKE 1 TABLET VIA FEEDING TUBE ONCE DAILY Discharge Instructions Instructions: Restless Legs Syndrome (ED) Additional Instructions: Please follow-up with neurology referral and primary care physician Medical Decision Making 77-year-old male history of laryngeal cancer status post tracheostomy presents with flare of his restless leg syndrome, worse over the past several days, has been present for years intermittently flaring up for a couple days at a time every couple of months. Patient is afebrile nontoxic neurologically intact. Patient called his primary care physician for assistance and was referred to the emergency department for evaluation. Patient currently takes gabapentin and ropinirole. Physical exam showing normal appearing limbs sensate in nature ambulatory with full strength. Neurologically intact. Counseled patient regarding his current medication regimen, he is currently on both first-line agents of each class of medication, he is also on iron supplementation, the next line of medication on the algorithm for treatment of RLS would be low-dose opioid and/or benzodiazepine however given patient's laryngeal cancer and tracheostomy status this would be a high risk option from a airway protective standpoint. We will refer patient for evaluation by neurology team. Also counseled patient to follow close with his primary care physician at [facility]. Patient and family HPI General Date/Time Provider Initiated Documentation: 11/21/22 14:05. HPI Narrative: 77-year-old male history of laryngeal cancer, status post tracheostomy, presents for evaluation of symptoms of restless leg present over the past several years intermittently flaring up every couple of months for couple of days patient takes gabapentin as well as ropinirole. Related Data Home Medications Medication Instructions Recorded Confirmed omeprazole 20 mg capsule,delayed 20 mg feeding tube BID #90 caps 10/05/19 11/21/22 release melatonin 3 mg tablet 6 mg PO HS 10/29/19 11/21/22 rosuvastatin 40 mg tablet 40 mg feeding tube HS #90 tabs 12/14/19 11/21/22 acetylcysteine 100 mg/mL (10 %) 4 ml inhalation BID 07/05/20 11/21/22 solution ipratropium 0.5 mg-albuterol 3 mg 3 ml IN QID PRN shortness of 07/30/20 11/21/22 (2.5 mg base)/3 mL nebulization breath or wheezing #90 mL soln amlodipine 5 mg tablet 5 mg PO DAILY 10/04/20 11/21/22 gabapentin 100 mg capsule 200 mg PO BID 10/04/20 11/21/22 Bifidobacterium infantis 4 mg 4 mg PO QPM 08/03/21 11/21/22 capsule (Align) ferrous sulfate 325 mg (65 mg 325 mg PO DAILY 08/05/21 11/21/22 iron) tablet (FeroSul) sulfamethoxazole 400 1 tab PO DAILY #30 tabs 09/24/21 11/21/22 mg-trimethoprim 80 mg tablet (Bactrim) aspirin 81 mg tablet,delayed 81 mg PO DAILY 11/25/21 11/21/22 release (Adult Aspirin Regimen) ropinirole 1 mg tablet 1 mg PO BID 01/07/22 11/21/22 acetaminophen 500 mg tablet 1,000 mg PO BID PRN 03/05/22 11/21/22 (Tylenol Extra Strength) prednisone 20 mg tablet 40 mg PO DAILY #14 tabs 04/07/22 11/21/22 polyethylene glycol 3350 17 17 g PO DAILY PRN constipation 06/19/22 11/21/22 gram/dose oral powder (Miralax) alfuzosin 10 mg tablet,extended 10 mg PO DAILY BPH with luts #90 06/25/22 11/21/22 release 24 hr (Uroxatral) tab-caps finasteride 5 mg tablet 5 mg PO DAILY #90 tabs 06/25/22 11/21/22 acetylcysteine 600 mg capsule (NAC) 600 mg PO BID #60 caps 08/29/22 11/21/22 prednisone 10 mg tablet 10 mg PO DIRECTED #42 tabs 09/15/22 11/21/22 Vancomycin 250 mg NEB BID 28 days #280 mL 09/29/22 11/21/22 sertraline 50 mg tablet 50 mg PO DAILY #30 tabs 10/25/22 11/21/22 levothyroxine See Rx Instructions .Route 10/27/22 11/21/22 DIRECTED Previous Rx's Medication Instructions Recorded omeprazole 20 mg capsule,delayed 20 mg feeding tube BID #90 caps 10/05/19 release rosuvastatin 40 mg tablet 40 mg feeding tube HS #90 tabs 12/14/19 ipratropium 0.5 mg-albuterol 3 mg 3 ml IN QID PRN shortness of 07/30/20 (2.5 mg base)/3 mL nebulization breath or wheezing #90 mL soln sulfamethoxazole 400 1 tab PO DAILY #30 tabs 09/24/21 mg-trimethoprim 80 mg tablet (Bactrim) prednisone 20 mg tablet 40 mg PO DAILY #14 tabs 04/07/22 alfuzosin 10 mg tablet,extended 10 mg PO DAILY BPH with luts #90 06/25/22 release 24 hr (Uroxatral) tab-caps finasteride 5 mg tablet 5 mg PO DAILY #90 tabs 06/25/22 acetylcysteine 600 mg capsule (NAC) 600 mg PO BID #60 caps 08/29/22 prednisone 10 mg tablet 10 mg PO DIRECTED #42 tabs 09/15/22 Vancomycin 250 mg NEB BID 28 days #280 mL 09/29/22 sertraline 50 mg tablet 50 mg PO DAILY #30 tabs 10/25/22 Allergies Allergy/AdvReac Type Severity Reaction Status Date / Time pollen extracts Allergy Mild Verified 10/27/22 13:02 Tetracyclines Allergy Unknown SKIN RASH Verified 10/27/22 13:02 General Stated Complaint: GenMedical CHER: 3 Review of Systems Narrative: Review of Systems Constitutional: negative Eyes: negative ENT: negative Cardiovascular: negative Respiratory: negative Gastrointestinal: negative : negative Musculoskeletal: negative Skin: negative Neurologic: Restless leg Psych: negative PFSH All Active Problems (Updated 11/21/22 @ 14:41 by Fabian Vazquez MD) Restless leg syndrome (Acute) Advance care planning (Acute) Encounter for hospice care discussion (Acute) Unintentional weight loss of 10% body weight within 6 months (Acute) Dysuria (Acute) Malfunctioning jejunostomy tube (Acute) Need for follow-up by social media content manager (Acute) Dysphagia (Acute) Weakness (Acute) Impaired instrumental activities of daily living (Acute) Plantar fascial fibromatosis (Acute) Feeding tube dysfunction (Acute) Sensorineural hearing loss (SNHL) of both ears (Acute) Otalgia of right ear (Acute) Neck pain on right side (Acute) Neck pain on right side (Acute) Full code status (Acute) Need for home health care (Acute) MRSA pneumonia (Acute) pt likely colonized Occlusion of right vertebral artery (Acute) Hypoxemia (Acute) Complication of feeding tube (Acute) Peripheral neuropathy (Acute 02/21/15) PAOD (peripheral arterial occlusive disease) (Acute) COPD (chronic obstructive pulmonary disease) (Chronic) G tube feedings (Acute) 20F 3.5cm changed 06/13/22 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 Anemia Anxiety Anxiety A[place] post total [place] [facility] [place] of feeding tube 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/17) CAD (coronary artery disease) Chronic respiratory failure with hypoxia Complication of feeding tube Conjunctivitis, chronic COPD (chronic obstructive pulmonary disease) Cortical cataract of right eye Depression Depressive disorder (11/18/12) Dyspnea on exertion Feeding tube dysfunction Hematoma following procedure Herpes zoster History of alcoholism sober x 25yrs History of laryngeal cancer History of tobacco use Hyperlipemia Hyperlipidemia (11/18/12) Hypertension Hypertension (11/18/12) Hypothyroidism Hypothyroidism (11/18/12) Impingement syndrome, shoulder, left (10/10/16) -2016: PT sugg. 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 Shortness of breath Tobacco use Surgical History 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) Sin-mullins button placed by CHRISS Acevedo History of esophagogastroduodenoscopy (EGD) (~08/10/19) Daron Casper APRN [place] [facility] [place] hiatal hernia, GERD, Reyes's esophagitis, neuromuscular dysfunction History of laryngectomy History of radical laryngectomy History of tarsorrhaphy PROCEDURES RT/LEFT HEART CARD CATH COMPLETE LARYNGECTOMY Esophagoplasty S/P AAA (abdominal aortic aneurysm) repair Status post cardiac catheterization Status post cataract extraction and insertion of intraocular lens of left eye (04/30/12) Status post cataract extraction and insertion of intraocular lens of right eye (07/12/18) Status post laryngectomy Family History Nephew Throat cancer Maternal Cousin Cancer Social History Smoking/Tobacco Use Status: Former Tobacco Use Tobacco: How many years used: 30 Smoking risk assessment performed?: Yes Alcohol Intake: never Drug use: Never Substance use type: does not use Current gender identity: male Do you feel safe at home: Yes Do you feel safe in your relationship?: Yes Exam Narrative Exam Narrative: Physical Examination General: alert, awake, cooperative, resting comfortably, no acute distress Skin: no lesions, rashes or trauma appreciated Neuro: Sensation and strength intact bilateral lower extremities Extremities: Moving all extremities ambulatory no signs of trauma Course Vital Signs Vital signs: Vital Signs Temperature 37 C 11/21/22 14:07 Pulse 72 11/21/22 14:07 Respiratory Rate 20 11/21/22 14:07 Blood Pressure 152/80 H 11/21/22 14:07 Pulse Oximetry 95 11/21/22 14:07 Temperature 37 C 11/21/22 14:07 Temperature Source Oral 11/21/22 14:07 Pulse 72 11/21/22 14:07 Respiratory Rate 20 11/21/22 14:07 Respiratory Effort Normal 11/21/22 14:18 Respiratory Pattern Normal 11/21/22 14:18 Blood Pressure 152/80 H 11/21/22 14:07 Blood Pressure Position Standing 11/21/22 14:07 Pulse Oximetry 95 11/21/22 14:07 Oxygen Delivery Method Trach Collar 11/21/22 14:07 Oxygen Flow Rate 4 11/21/22 14:07 Pain Level 0 11/21/22 14:07
--- NOTE | 2022-11-21 14:41 | NUR.NOTE ---
Nursing Note: PT needs follow up with Neurology next week for restless legs. Danni, ED
--- NOTE | 2022-11-21 19:29 | NUR.NOTE ---
Referral fxed to [facility] Neurology to f/u next week for restless legs.Nursing Note:
== END 2022-11-21 14:48 | disposition home or self-care (01) ==
PROVIDERS: Emergency Provider Emergency Medicine; PCP Physician Assistant Medical
DX: G25.81 Restless legs syndrome (principal)
CPT/HCPCS: 99281; 99283

== ENCOUNTER → 2022-11-24 13:41 | Outpatient (BNVA) | payer MEDICARE, MEDICAID, SELFPAY | PROVIDERS: PCP Physician Assistant Medical; Referring Provider Physician Assistant Medical; Visit Provider Psychiatry & Neurology Neurology | DX: G25.81 Restless legs syndrome (principal); G62.9 Polyneuropathy, unspecified | CPT/HCPCS: 99215 ==

== ENCOUNTER → 2022-12-01 12:46 | Outpatient (BNVA) | payer MEDICARE, MEDICAID, SELFPAY | PROVIDERS: PCP Physician Assistant Medical; Referring Provider Physician Assistant Medical; Visit Provider Surgery | DX: Z46.59 Encounter for fitting and adjustment of other gastrointestinal appliance and device (principal); R63.4 Abnormal weight loss; R13.10 Dysphagia, unspecified; Z93.1 Gastrostomy status | CPT/HCPCS: 43762; 99212 ==

== ENCOUNTER 2022-12-12 11:40 | Emergency (ER) | payer MEDICARE, MEDICAID, SELFPAY ==
[2022-12-12 11:45] VITALS: BP 127/66; PULSE 72; TEMP 37; O2SAT 98
[2022-12-12 12:22] LABS: Abs Immature Grans 0.03 10^3/uL (0.0-0.06); Absolute Eosinophil Count 0.23 10^3/uL (0.0-0.7); Absolute Lymphocyte Count 1.22 10^3/uL (1.2-3.4); Absolute Monocyte Count 0.75 10^3/uL (0.1-0.8); Absolute Neutrophil Count 6.65 10^3/uL (1.2-6.7); Basophils % 1.1; Eosinophils % 2.6; HCT 43.8 % (40.0-50.0); HGB 14.3 g/dL (13.5-17.5); Immature Grans % 0.3; Lymphocytes % 13.6; MCH 32.1 pg (27.0-33.0); MCHC 32.6 % (32.0-36.0); MCV 98 fL (80-95); MPV 10.5 fL (8.0-11.0); Monocytes % 8.4; Platelet Count 250 10^3/uL (130-400); RBC 4.45 10^6/uL (4.36-5.78); RDW 14.6 % (11.8-14.1); RDW-SD 52.5 fL; WBC 8.98 10^3/uL (4.4-10.8)
[2022-12-12] MEDS: Lactated Ringers 1,000 ML 1000 ML IV (12:30)
[2022-12-12 12:48] LABS: ALT 16 U/L (16-63); AST 23 U/L (15-37); Albumin 3.6 g/dL (3.4-5.0); Alkaline Phosphatase 87 U/L (46-116); Anion Gap 8.4 mmol/L (3-11); BUN 23 mg/dL (7-18); Bilirubin, Total 0.6 mg/dL (0.2-1.0); CO2 34.6 mmol/L (21.0-32.0); CREATININE 0.9 mg/dL (0.70-1.30); Calcium 9.1 mg/dL (8.5-10.1); Chloride 98 mmol/L (98-107); Estimated GFR 88.51 (mL/min/1.73m2); Glucose 115 mg/dL (74-106); Sodium 141 mmol/L (136-145); Total Protein 7.7 g/dL (6.4-8.2)
[2022-12-12 13:28] LABS: Magnesium 2.3 mg/dL (1.8-2.4)
[2022-12-12 14:02] VITALS: BP 136/80; PULSE 85; RESP 18; O2SAT 97
[2022-12-12] MEDS: Potassium Chloride Liquid 20 MEQ PKT 40 MEQ PO (14:04)
--- NOTE | 2022-12-14 12:33 | ED.GENADUL_ITS ---
Discharge Plan Disposition Patient Disposition: Home Condition: Stable Discharge Details Clinical Impression: Acute hypokalemia, Diarrhea Primary Care Provider: Nazia Chan ED Provider: Antonina Dowling Home Meds and New Rx's Prescriptions: Continued finasteride 5 mg tablet 5 mg PO DAILY Qty: 90 3RF alfuzosin [Uroxatral] 10 mg tablet extended release 24 hr 10 mg PO DAILY Qty: 90 3RF sulfamethoxazole-trimethoprim [Bactrim] 400-80 mg tablet 1 tab PO DAILY Qty: 30 7RF Rx Instructions: Take 1 tab every day, every other month. Use on the same schedule has the nebulized vancomycin. ropinirole 1 mg tablet 1 mg PO BID aspirin [Adult Aspirin Regimen] 81 mg tablet,delayed release (DR/EC) 81 mg PO DAILY acetaminophen [Tylenol Extra Strength] 500 mg tablet 1,000 mg PO BID PRN omeprazole 20 mg capsule,delayed release(DR/EC) 20 mg feeding tube BID Qty: 90 4RF acetylcysteine 100 mg/mL (10 %) solution 4 ml inhalation BID amlodipine 5 mg tablet 5 mg PO DAILY levothyroxine See Rx Instructions .ROUTE DIRECTED Rx Instructions: as directed; rosuvastatin 40 mg tablet 40 mg feeding tube HS Qty: 90 4RF ipratropium-albuterol 0.5 mg-3 mg(2.5 mg base)/3 mL solution for nebulization 3 ml IN QID PRN (Reason: shortness of breath or wheezing) Qty: 90 4RF Rx Instructions: increased dose/use treatment 4 times/day as needed NOT SENT polyethylene glycol 3350 [Miralax] 17 gram/dose powder 17 g PO DAILY PRN (Reason: constipation) Rx Instructions: 06/19/22 instructed by PCP to take 1/2 cap daily, may reduce to half cap three times per week if daily is too much acetylcysteine [NAC] 600 mg capsule 600 mg PO BID Qty: 60 12RF Vancomycin 250 mg NEB BID 28 Days Qty: 280 12RF Rx Instructions: 250mg vancomycin in 5 cc of sterile water for nebulization To be given every other month for 28 consecutive days sertraline 50 mg tablet 50 mg PO DAILY Qty: 30 2RF Rx Instructions: decreased by PCP on 06/19/22 gabapentin 100 mg capsule 200 mg PO BID Qty: 360 3RF fluconazole [Diflucan] 200 mg tablet 200 mg PO DAILY 5 Days Qty: 5 0RF sulfamethoxazole-trimethoprim 200-40 mg/5 mL suspension 5 ml PO DAILY 28 Days Qty: 473 9RF Rx Instructions: Take daily for 4 weeks, then off for 4 weeks, etc melatonin 3 MG tablet 6 mg PO HS Align 4 mg Capsule 4 mg PO QPM ferrous sulfate [FeroSul] 325 mg (65 mg iron) tablet 325 mg PO DAILY Patient Comments: TAKE 1 TABLET VIA FEEDING TUBE ONCE DAILY Discharge Instructions Instructions: Hypokalemia (ED), Acute Diarrhea (ED) Additional Instructions: Please continue on your prescribed medications Should you have return of diarrhea you should have a stool sample checked You have been given a dose of potassium to replete your level Please return earlier should you have new or worsening complaints Referrals: Nazia Chan [Primary Care Provider] - Discharge Data Discharge Date/Time-TO BE ENTERED AT DEPARTURE: 12/12/22 14:02 Medical Decision Making 77-year-old gentleman presenting with 3 days of diarrhea, no abdominal pain appreciated, no diarrhea noted throughout this encounter Afebrile and otherwise nontoxic in appearance Diagnostic labs show evidence of hypokalemia the remainder of labs are consistent with mild dehydration, given a liter of fluids Patient is requesting to be discharged home, he has not had diarrhea throughout his encounter, while he does have other comorbidities, and does have risk for C. difficile, he has not had any loose stool throughout this encounter making my concern for C. difficile quite low although if his symptoms are to return he is on 3 different antibiotics Return precautions were reviewed and patient expressed understanding Patient did not wish to remain for additional testing or evaluation is requesting discharge home He is made aware that he should have close outpatient reassessment with his doctors as he is on chronic regimen of Bactrim Discharged home in stable condition with stable vitals, fully alert and oriented in the care of his who was involved in all of her discussions, both of decisional capacity HPI General Date/Time Provider Initiated Documentation: 12/12/22 11:52 . HPI Narrative: 77-year-old gentleman presents with diarrhea for the past 3 days. Denies any fever or chills. Denies any chest pain or shortness of breath. Denies any dizziness or weakness. Labs do not show evidence of acute abnormality, abdominal exam benign. Denies any recent antibiotic use Related Data Home Medications Medication Instructions Recorded Confirmed omeprazole 20 mg capsule,delayed 20 mg feeding tube BID #90 caps 10/05/19 12/02/22 release melatonin 3 mg tablet 6 mg PO HS 10/29/19 12/02/22 rosuvastatin 40 mg tablet 40 mg feeding tube HS #90 tabs 12/14/19 12/02/22 acetylcysteine 100 mg/mL (10 %) 4 ml inhalation BID 07/05/20 12/02/22 solution ipratropium 0.5 mg-albuterol 3 mg 3 ml IN QID PRN shortness of 07/30/20 12/02/22 (2.5 mg base)/3 mL nebulization breath or wheezing #90 mL soln amlodipine 5 mg tablet 5 mg PO DAILY 10/04/20 12/02/22 Bifidobacterium infantis 4 mg 4 mg PO QPM 08/03/21 12/02/22 capsule (Align) ferrous sulfate 325 mg (65 mg 325 mg PO DAILY 08/05/21 12/02/22 iron) tablet (FeroSul) sulfamethoxazole 400 1 tab PO DAILY #30 tabs 09/24/21 12/02/22 mg-trimethoprim 80 mg tablet (Bactrim) aspirin 81 mg tablet,delayed 81 mg PO DAILY 11/25/21 12/02/22 release (Adult Aspirin Regimen) ropinirole 1 mg tablet 1 mg PO BID 01/07/22 12/02/22 acetaminophen 500 mg tablet 1,000 mg PO BID PRN 03/05/22 12/02/22 (Tylenol Extra Strength) polyethylene glycol 3350 17 17 g PO DAILY PRN constipation 06/19/22 12/02/22 gram/dose oral powder (Miralax) alfuzosin 10 mg tablet,extended 10 mg PO DAILY BPH with luts #90 06/25/22 12/02/22 release 24 hr (Uroxatral) tab-caps finasteride 5 mg tablet 5 mg PO DAILY #90 tabs 06/25/22 12/02/22 acetylcysteine 600 mg capsule (NAC) 600 mg PO BID #60 caps 08/29/22 12/02/22 Vancomycin 250 mg NEB BID 28 days #280 mL 09/29/22 12/02/22 sertraline 50 mg tablet 50 mg PO DAILY #30 tabs 10/25/22 12/02/22 levothyroxine See Rx Instructions .Route 10/27/22 12/02/22 DIRECTED gabapentin 100 mg capsule 200 mg PO BID #360 caps 12/10/22 fluconazole 200 mg tablet 200 mg PO DAILY 5 days #5 tabs 12/11/22 (Diflucan) sulfamethoxazole 200 5 ml PO DAILY 28 days #473 mL 12/11/22 mg-trimethoprim 40 mg/5 mL oral suspension Previous Rx's Medication Instructions Recorded omeprazole 20 mg capsule,delayed 20 mg feeding tube BID #90 caps 10/05/19 release rosuvastatin 40 mg tablet 40 mg feeding tube HS #90 tabs 12/14/19 ipratropium 0.5 mg-albuterol 3 mg 3 ml IN QID PRN shortness of 07/30/20 (2.5 mg base)/3 mL nebulization breath or wheezing #90 mL soln sulfamethoxazole 400 1 tab PO DAILY #30 tabs 09/24/21 mg-trimethoprim 80 mg tablet (Bactrim) alfuzosin 10 mg tablet,extended 10 mg PO DAILY BPH with luts #90 06/25/22 release 24 hr (Uroxatral) tab-caps finasteride 5 mg tablet 5 mg PO DAILY #90 tabs 06/25/22 acetylcysteine 600 mg capsule (NAC) 600 mg PO BID #60 caps 08/29/22 Vancomycin 250 mg NEB BID 28 days #280 mL 09/29/22 sertraline 50 mg tablet 50 mg PO DAILY #30 tabs 10/25/22 gabapentin 100 mg capsule 200 mg PO BID #360 caps 12/10/22 fluconazole 200 mg tablet 200 mg PO DAILY 5 days #5 tabs 12/11/22 (Diflucan) sulfamethoxazole 200 5 ml PO DAILY 28 days #473 mL 12/11/22 mg-trimethoprim 40 mg/5 mL oral suspension Allergies Allergy/AdvReac Type Severity Reaction Status Date / Time pollen extracts Allergy Mild Verified 12/12/22 11:48 Tetracyclines Allergy Unknown SKIN RASH Verified 12/12/22 11:48 General Stated Complaint: Nausea/Vomit/Diar CHER: 3 PFSH All Active Problems (Updated 12/12/22 @ 13:41 by MARC Dennis) Acute hypokalemia (Acute) Diarrhea (Acute) Gastrostomy tube dysfunction (Acute) Restless leg syndrome (Acute) Advance care planning (Acute) Encounter for hospice care discussion (Acute) Unintentional weight loss of 10% body weight within 6 months (Acute) Dysuria (Acute) Malfunctioning jejunostomy tube (Acute) Need for follow-up by geriatric social worker (Acute) Dysphagia (Acute) Weakness (Acute) Impaired instrumental activities of daily living (Acute) Plantar fascial fibromatosis (Acute) Feeding tube dysfunction (Acute) Sensorineural hearing loss (SNHL) of both ears (Acute) Otalgia of right ear (Acute) Neck pain on right side (Acute) Neck pain on right side (Acute) Full code status (Acute) Need for home health care (Acute) MRSA pneumonia (Acute) pt likely colonized Occlusion of right vertebral artery (Acute) Hypoxemia (Acute) Complication of feeding tube (Acute) Peripheral neuropathy (Acute 02/21/15) PAOD (peripheral arterial occlusive disease) (Acute) COPD (chronic obstructive pulmonary disease) (Chronic) G tube feedings (Acute) 20F 3.0cm 11/30/22. Routine change every 4 months. 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: hiatal hernia, GERD, Reyes's esophagitis, neuromuscular dysfunction History of laryngectomy History of radical laryngectomy History of tarsorrhaphy PROCEDURES RT/LEFT HEART CARD CATH COMPLETE LARYNGECTOMY Esophagoplasty S/P AAA (abdominal aortic aneurysm) repair Status post cardiac catheterization Status post cataract extraction and insertion of intraocular lens of left eye (04/30/12) Status post cataract extraction and insertion of intraocular lens of right eye (07/12/18) Status post laryngectomy Family History Nephew Throat cancer Maternal Cousin Cancer Social History Smoking/Tobacco Use Status: Former Tobacco Use Tobacco: How many years used: 30 Smoking risk assessment performed?: Yes Alcohol Intake: never Drug use: Never Substance use type: does not use Housing: house Current gender identity: male Do you feel safe at home: Yes Do you feel safe in your relationship?: Yes Course Vital Signs Vital signs: Vital Signs Temperature 37.0 C 12/12/22 11:45 Pulse 72 12/12/22 11:45 Blood Pressure 127/66 12/12/22 11:45 Pulse Oximetry 98 12/12/22 11:45 Temperature 37.0 C 12/12/22 11:45 Temperature Source Temporal Artery Scan 12/12/22 11:45 Pulse 85 12/12/22 14:02 Respiratory Rate 18 12/12/22 14:02 Respiratory Effort Normal, Non-Labored 12/12/22 11:48 Blood Pressure 136/80 12/12/22 14:02 Blood Pressure Position Sitting 12/12/22 11:45 Pulse Oximetry 97 12/12/22 14:02 Oxygen Delivery Method Venti Mask 12/12/22 11:45 Lab/Test Results Lab/Test Results: Laboratory Tests Range/Units 12/12/22 12/12/22 12/12/22 12:00 12:00 12:00 WBC (4.4-10.8) 10^3/uL 8.98 RBC (4.36-5.78) 10^6/uL 4.45 Hgb (13.5-17.5) g/dL 14.3 Hct (40.0-50.0) % 43.8 MCV (80-95) fL 98 H MCH (27.0-33.0) pg 32.1 MCHC (32.0-36.0) % 32.6 RDW (11.8-14.1) % 14.6 H Plt Count (130-400) 10^3/uL 250 MPV (8.0-11.0) fL 10.5 Immature Gran % 0.3 Neutrophils % 74.0 Lymphocytes % 13.6 Monocytes % 8.4 Eosinophils % 2.6 Basophils % 1.1 Nucleated RBC % (0.0-0.3) % 0.0 Absolute Neutrophils (1.2-6.7) 10^3/uL 6.65 Absolute Lymphocytes (1.2-3.4) 10^3/uL 1.22 Absolute Monocytes (0.1-0.8) 10^3/uL 0.75 Absolute Eosinophils (0.0-0.7) 10^3/uL 0.23 Absolute Basophils (0.0-0.2) 10^3/uL 0.10 Sodium (136-145) mmol/L 141 Potassium (3.5-5.1) mmol/L 3.0 L Chloride (98-107) mmol/L 98 Carbon Dioxide (21.0-32.0) mmol/L 34.6 H Anion Gap (3-11) mmol/L 8.4 BUN (7-18) mg/dL 23 H Creatinine (0.70-1.30) mg/dL 0.9 Est GFR (CKD-EPI 2020) (mL/min/1.73m2) 88.51 Glucose (74-106) mg/dL 115 H Calcium (8.5-10.1) mg/dL 9.1 Magnesium (1.8-2.4) mg/dL 2.3 Total Bilirubin (0.2-1.0) mg/dL 0.6 AST (15-37) U/L 23 ALT (16-63) U/L 16 Alkaline Phosphatase (46-116) U/L 87 Total Protein (6.4-8.2) g/dL 7.7 Albumin (3.4-5.0) g/dL 3.6 Urine Color Urine Clarity Urine pH Ur Specific Ferdinand Urine Protein Urine Ketones Urine Blood Urine Nitrite Urine Bilirubin Urine Urobilinogen Ur Leukocyte Esterase Urine Glucose Range/Units 12/12/22 12:31 WBC (4.4-10.8) 10^3/uL RBC (4.36-5.78) 10^6/uL Hgb (13.5-17.5) g/dL Hct (40.0-50.0) % MCV (80-95) fL MCH (27.0-33.0) pg MCHC (32.0-36.0) % RDW (11.8-14.1) % Plt Count (130-400) 10^3/uL MPV (8.0-11.0) fL Immature Gran % Neutrophils % Lymphocytes % Monocytes % Eosinophils % Basophils % Nucleated RBC % (0.0-0.3) % Absolute Neutrophils (1.2-6.7) 10^3/uL Absolute Lymphocytes (1.2-3.4) 10^3/uL Absolute Monocytes (0.1-0.8) 10^3/uL Absolute Eosinophils (0.0-0.7) 10^3/uL Absolute Basophils (0.0-0.2) 10^3/uL Sodium (136-145) mmol/L Potassium (3.5-5.1) mmol/L Chloride (98-107) mmol/L Carbon Dioxide (21.0-32.0) mmol/L Anion Gap (3-11) mmol/L BUN (7-18) mg/dL Creatinine (0.70-1.30) mg/dL Est GFR (CKD-EPI 2020) (mL/min/1.73m2) Glucose (74-106) mg/dL Calcium (8.5-10.1) mg/dL Magnesium (1.8-2.4) mg/dL Total Bilirubin (0.2-1.0) mg/dL AST (15-37) U/L ALT (16-63) U/L Alkaline Phosphatase (46-116) U/L Total Protein (6.4-8.2) g/dL Albumin (3.4-5.0) g/dL Urine Color Cancelled Urine Clarity Cancelled Urine pH Cancelled Ur Specific Ferdinand Cancelled Urine Protein Cancelled Urine Ketones Cancelled Urine Blood Cancelled Urine Nitrite Cancelled Urine Bilirubin Cancelled Urine Urobilinogen Cancelled Ur Leukocyte Esterase Cancelled Urine Glucose Cancelled
== END 2022-12-12 14:02 | disposition home or self-care (01) ==
PROVIDERS: Emergency Provider Physician Assistant; PCP Physician Assistant Medical
DX: R19.7 Diarrhea, unspecified (principal); E87.6 Hypokalemia
CPT/HCPCS: 80053; 96360; 96361; 99284; 81003; 83735; 85025

== ENCOUNTER → 2022-12-15 12:46 | Outpatient (BNVA) | payer MEDICARE, MEDICAID, SELFPAY | PROVIDERS: PCP Physician Assistant Medical; Referring Provider Physician Assistant Medical; Visit Provider Nurse Practitioner Gerontology | DX: R30.0 Dysuria (principal); N40.1 Benign prostatic hyperplasia with lower urinary tract symptoms; R39.89 Other symptoms and signs involving the genitourinary system | CPT/HCPCS: 51798; 81003; 99214 ==

== ENCOUNTER 2023-01-07 14:02 | Outpatient (REF) | payer MEDICARE, MEDICAID, SELFPAY ==
[2023-01-07 15:04] LABS: C Diff PCR Negative (Negative)
[2023-01-08 10:38] LABS: Campylobacter PCR Negative (Negative); Salmonella PCR Negative (Negative); Shiga Toxin PCR Negative (Negative); Shigella/Enteroinvasive Ecoli Negative (Negative)
== END 2023-01-07 14:03 | disposition home or self-care (01) ==
LOC: LBN 14:02
PROVIDERS: PCP Physician Assistant Medical
DX: R19.7 Diarrhea, unspecified (principal)
CPT/HCPCS: 87493; 87505

== ENCOUNTER 2023-01-19 15:38 | Emergency (ER) | payer MEDICARE, MEDICAID, SELFPAY ==
[2023-01-19] VITALS (22 sets, daily range): BP systolic 116–197; BP diastolic 61–88; PULSE 65–76; RESP 20–24; TEMP 37–37.1; O2SAT 94–98
[2023-01-19 16:51] LABS: Abs Immature Grans 0.03 10^3/uL (0.0-0.06); Absolute Basophil Count 0.14 10^3/uL (0.0-0.2); Absolute Eosinophil Count 0.43 10^3/uL (0.0-0.7); Absolute Lymphocyte Count 1.21 10^3/uL (1.2-3.4); Absolute Monocyte Count 0.79 10^3/uL (0.1-0.8); Absolute Neutrophil Count 7.77 10^3/uL (1.2-6.7); Basophils % 1.4; Eosinophils % 4.1; HGB 14.3 g/dL (13.5-17.5); Immature Grans % 0.3; Lymphocytes % 11.7; MCHC 33.3 % (32.0-36.0); MCV 99 fL (80-95); MPV 10.6 fL (8.0-11.0); Monocytes % 7.6; Neutrophils % 74.9; Platelet Count 206 10^3/uL (130-400); RBC 4.33 10^6/uL (4.36-5.78); RDW 13.1 % (11.8-14.1); RDW-SD 48.4 fL; WBC 10.37 10^3/uL (4.4-10.8)
--- NOTE | 2023-01-19 16:56 | ED.GENADUL_ITS ---
Discharge Plan Disposition Patient Disposition: Transfer-Acute Inpatient Care Specific Acute Inpt Facility: [facility] Discharge Details Clinical Impression: Hemoptysis, Complication of tracheostomy Primary Care Provider: Nazia Chan ED Provider: Francisco Lindsey Home Meds and New Rx's Prescriptions: No Action finasteride 5 mg tablet 5 mg PO DAILY Qty: 90 3RF sulfamethoxazole-trimethoprim [Bactrim] 400-80 mg tablet 1 tab PO DAILY Qty: 30 7RF Rx Instructions: Take 1 tab every day, every other month. Use on the same schedule has the nebulized vancomycin. ropinirole 1 mg tablet 1 mg PO BID aspirin [Adult Aspirin Regimen] 81 mg tablet,delayed release (DR/EC) 81 mg PO DAILY acetaminophen [Tylenol Extra Strength] 500 mg tablet 1,000 mg PO BID PRN tamsulosin [Flomax] 0.4 mg capsule 0.4 mg PO DAILY Qty: 90 1RF omeprazole 20 mg capsule,delayed release(DR/EC) 20 mg feeding tube BID Qty: 90 4RF acetylcysteine 100 mg/mL (10 %) solution 4 ml inhalation BID amlodipine 5 mg tablet 5 mg PO DAILY levothyroxine See Rx Instructions .ROUTE DIRECTED Rx Instructions: as directed; rosuvastatin 40 mg tablet 40 mg feeding tube HS Qty: 90 4RF ipratropium-albuterol 0.5 mg-3 mg(2.5 mg base)/3 mL solution for nebulization 3 ml IN QID PRN (Reason: shortness of breath or wheezing) Qty: 90 4RF Rx Instructions: increased dose/use treatment 4 times/day as needed NOT SENT polyethylene glycol 3350 [Miralax] 17 gram/dose powder 17 g PO DAILY PRN (Reason: constipation) Rx Instructions: 06/19/22 instructed by PCP to take 1/2 cap daily, may reduce to half cap three times per week if daily is too much acetylcysteine [NAC] 600 mg capsule 600 mg PO BID Qty: 60 12RF Vancomycin 250 mg NEB BID 28 Days Qty: 280 12RF Rx Instructions: 250mg vancomycin in 5 cc of sterile water for nebulization To be given every other month for 28 consecutive days gabapentin 100 mg capsule 200 mg PO BID Qty: 360 3RF sulfamethoxazole-trimethoprim 200-40 mg/5 mL suspension 5 ml PO DAILY 28 Days Qty: 473 9RF Rx Instructions: Take daily for 4 weeks, then off for 4 weeks, etc sertraline 50 mg tablet 50 mg PO DAILY Qty: 30 2RF Rx Instructions: decreased by PCP on 06/19/22 melatonin 3 MG tablet 6 mg PO HS Align 4 mg Capsule 4 mg PO QPM ferrous sulfate [FeroSul] 325 mg (65 mg iron) tablet 325 mg PO DAILY Patient Comments: TAKE 1 TABLET VIA FEEDING TUBE ONCE DAILY Medical Decision Making 78-year-old male with a past medical history of COPD, abdominal aneurysm, and throat cancer 11 years ago for which he received radiation at that time, but nothing since then.? Unfortunately secondary to this he has had tracheal stenosis, requiring a tracheostomy.? He recently had multiple revisions, including a graft with skin taken from his left shoulder and placed over his tracheostomy site.? Who is a palliative care patient, with a history of chronic MRSA pneumonia, abdominal aortic aneurysm, thoracic aortic aneurysm, tracheoesophageal fistula, who presents today for evaluation of hemoptysis. Patient had an EGD performed on 01/14 for an esophageal stricture, there was dilatation. No significant complications per records. Patient did well that day, however the next day he began having small amount of blood from his tracheostomy site. This continued for the next 2 to 3 days, worsening every day. He has had notable bloody mucus persistently. He denies any difficulty breathing, but does admit to notable worsening of his cough secondary to this bleeding. He denies shortness of breath or chest pain. No other complaints at this time. No other modifying factors. He is not on blood thinners, he does take a daily 81 mg aspirin. Exam demonstrates well-appearing male given his multiple comorbidities. He is breathing well, no hypoxemia. Breath sounds are somewhat rhonchorous. On command he is able to expectorate somewhat moderate amounts of thick bloody sputum. It is not blood-tinged, but rather pure blood. No large purple clots though. Exam does demonstrate evidence of clot around the tracheostomy site, as well as evidence of clots and scabs on the inside of his trachea on visual inspection. He is otherwise stable. We did reach out to our eyelet punch operator Dr. Caldera, and unfortunately secondary to an injury to her hands she is unable to perform bronchoscopies at this time. As the patient does see [facility] regularly, we will reach out to [facility] for transfer for bronchoscopy for further evaluation of his bleeding. We will monitor the patient closely and regularly to make sure there are no changes in acute respiratory status. 7:39 PM Patient has remained stable here. We have started warm humidified air for the patient from ENTs recommendation. Discussed the case with the ICU/critical care Dr. Ivy, and she agrees on the need for transfer for procedure realization and further evaluation and monitoring. Patient will be transferred to [facility] ICU, and admitted under Dr. Willett ICU team. Discussed this with family, they agree with plan. I have extensively reviewed the treatment plan with the patient. I have addressed all patient concerns at this time. I have also discussed the plan with the admitting physician and they agree with the current assessment and plan and have agreed to assume responsibility for the patient. All parties demonstrate verbal understanding and agreement with our assessment and plan at this time. The documentation in this chart was dictated using [employer] dictation software. Please excuse any dictation errors. At time of transfer the patient was reassessed and continued to demonstrate No signs of acute respiratory distress requiring intubation, hemodynamic instability requiring pressor support, or rapidly declining mental status. HPI General Date/Time Provider Initiated Documentation: 01/19/23 15:43 . HPI Narrative: 78-year-old male with a past medical history of COPD, abdominal aneurysm, and throat cancer 11 years ago for which he received radiation at that time, but nothing since then.? Unfortunately secondary to this he has had tracheal stenosis, requiring a tracheostomy.? He recently had multiple revisions, including a graft with skin taken from his left shoulder and placed over his tracheostomy site.? Who is a palliative care patient, with a history of chronic MRSA pneumonia, abdominal aortic aneurysm, thoracic aortic aneurysm, tracheoesophageal fistula, who presents today for evaluation of hemoptysis. Patient had an EGD performed on 01/14 for an esophageal stricture, there was dilatation. No significant complications per records. Patient did well that day, however the next day he began having small amount of blood from his tracheostomy site. This continued for the next 2 to 3 days, worsening every day. He has had notable bloody mucus persistently. He denies any difficulty breathing, but does admit to notable worsening of his cough secondary to this bleeding. He denies shortness of breath or chest pain. No other complaints at this time. No other modifying factors. He is not on blood thinners, he does take a daily 81 mg aspirin. Related Data Home Medications Medication Instructions Recorded Confirmed omeprazole 20 mg capsule,delayed 20 mg feeding tube BID #90 caps 10/05/19 01/19/23 release melatonin 3 mg tablet 6 mg PO HS 10/29/19 01/19/23 rosuvastatin 40 mg tablet 40 mg feeding tube HS #90 tabs 12/14/19 01/19/23 acetylcysteine 100 mg/mL (10 %) 4 ml inhalation BID 07/05/20 01/13/23 solution ipratropium 0.5 mg-albuterol 3 mg 3 ml IN QID PRN shortness of 07/30/20 01/19/23 (2.5 mg base)/3 mL nebulization breath or wheezing #90 mL soln amlodipine 5 mg tablet 5 mg PO DAILY 10/04/20 01/19/23 Bifidobacterium infantis 4 mg 4 mg PO QPM 08/03/21 01/19/23 capsule (Align) ferrous sulfate 325 mg (65 mg 325 mg PO DAILY 08/05/21 01/19/23 iron) tablet (FeroSul) sulfamethoxazole 400 1 tab PO DAILY #30 tabs 09/24/21 01/19/23 mg-trimethoprim 80 mg tablet (Bactrim) aspirin 81 mg tablet,delayed 81 mg PO DAILY 11/25/21 01/19/23 release (Adult Aspirin Regimen) ropinirole 1 mg tablet 1 mg PO BID 01/07/22 01/19/23 acetaminophen 500 mg tablet 1,000 mg PO BID PRN 03/05/22 01/19/23 (Tylenol Extra Strength) polyethylene glycol 3350 17 17 g PO DAILY PRN constipation 06/19/22 01/19/23 gram/dose oral powder (Miralax) finasteride 5 mg tablet 5 mg PO DAILY #90 tabs 06/25/22 01/19/23 acetylcysteine 600 mg capsule (NAC) 600 mg PO BID #60 caps 08/29/22 01/19/23 Vancomycin 250 mg NEB BID 28 days #280 mL 09/29/22 01/19/23 levothyroxine See Rx Instructions .Route 10/27/22 01/13/23 DIRECTED gabapentin 100 mg capsule 200 mg PO BID #360 caps 12/10/22 01/19/23 sulfamethoxazole 200 5 ml PO DAILY 28 days #473 mL 12/11/22 01/13/23 mg-trimethoprim 40 mg/5 mL oral suspension tamsulosin 0.4 mg capsule (Flomax) 0.4 mg PO DAILY #90 caps 12/15/22 01/19/23 sertraline 50 mg tablet 50 mg PO DAILY #30 tabs 01/12/23 01/19/23 Previous Rx's Medication Instructions Recorded omeprazole 20 mg capsule,delayed 20 mg feeding tube BID #90 caps 10/05/19 release rosuvastatin 40 mg tablet 40 mg feeding tube HS #90 tabs 12/14/19 ipratropium 0.5 mg-albuterol 3 mg 3 ml IN QID PRN shortness of 07/30/20 (2.5 mg base)/3 mL nebulization breath or wheezing #90 mL soln sulfamethoxazole 400 1 tab PO DAILY #30 tabs 09/24/21 mg-trimethoprim 80 mg tablet (Bactrim) finasteride 5 mg tablet 5 mg PO DAILY #90 tabs 06/25/22 acetylcysteine 600 mg capsule (NAC) 600 mg PO BID #60 caps 08/29/22 Vancomycin 250 mg NEB BID 28 days #280 mL 09/29/22 gabapentin 100 mg capsule 200 mg PO BID #360 caps 12/10/22 sulfamethoxazole 200 5 ml PO DAILY 28 days #473 mL 12/11/22 mg-trimethoprim 40 mg/5 mL oral suspension tamsulosin 0.4 mg capsule (Flomax) 0.4 mg PO DAILY #90 caps 12/15/22 sertraline 50 mg tablet 50 mg PO DAILY #30 tabs 01/12/23 Allergies Allergy/AdvReac Type Severity Reaction Status Date / Time pollen extracts Allergy Mild Verified 01/19/23 19:16 Tetracyclines Allergy Unknown SKIN RASH Verified 01/19/23 19:16 General Stated Complaint: GenMedical CHER: 3 Review of Systems All systems reviewed & are unremarkable except as noted in HPI and below PFSH All Active Problems (Updated 01/19/23 @ 19:42 by Francisco Lindsey DO) Hemoptysis (Acute) Complication of tracheostomy (Acute) C1 cervical fracture (Acute) Gastrostomy tube dysfunction (Acute) Advance care planning (Acute) Encounter for hospice care discussion (Acute) Unintentional weight loss of 10% body weight within 6 months (Acute) Dysuria (Acute) Malfunctioning jejunostomy tube (Acute) Need for follow-up by social media job titles (Acute) Dysphagia (Acute) Weakness (Acute) Impaired instrumental activities of daily living (Acute) Plantar fascial fibromatosis (Acute) Feeding tube dysfunction (Acute) Sensorineural hearing loss (SNHL) of both ears (Acute) Otalgia of right ear (Acute) Neck pain on right side (Acute) Neck pain on right side (Acute) Full code status (Acute) Need for home health care (Acute) MRSA pneumonia (Acute) pt likely colonized Occlusion of right vertebral artery (Acute) Hypoxemia (Acute) Complication of feeding tube (Acute) Peripheral neuropathy (Acute 02/21/15) PAOD (peripheral arterial occlusive disease) (Acute) COPD (chronic obstructive pulmonary disease) (Chronic) G tube feedings (Acute) 20F 3.0cm 11/30/22. Routine change every 4 months. 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 Anemia Anxiety Anxiety Aphonia post total laryngectomy [facility] [place] 2007 Blockage of feeding tube 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/17) CAD (coronary artery disease) Chronic respiratory failure with hypoxia Complication of feeding tube Conjunctivitis, chronic COPD (chronic obstructive pulmonary disease) Cortical cataract of right eye Depression Depressive disorder (11/18/12) Dyspnea on exertion Feeding tube dysfunction Hematoma following procedure Herpes zoster History of alcoholism sober x 25yrs History of laryngeal cancer History of tobacco use Hyperlipemia Hyperlipidemia (11/18/12) Hypertension Hypertension (11/18/12) Hypothyroidism Hypothyroidism (11/18/12) Impingement syndrome, shoulder, left (10/10/16) -2016: PT sugg. 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 Shortness of breath Tobacco use Surgical History 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) Sin-mullins button placed by Dr Elia Mcdonald [facility] History of esophagogastroduodenoscopy (EGD) (~08/10/19) Daron Casper APRN @ [facility] [place]: hiatal hernia, GERD, Reyes's esophagitis, neuromuscular dysfunction History of laryngectomy History of radical laryngectomy History of tarsorrhaphy PROCEDURES RT/LEFT HEART CARD CATH COMPLETE LARYNGECTOMY Esophagoplasty S/P AAA (abdominal aortic aneurysm) repair Status post cardiac catheterization Status post cataract extraction and insertion of intraocular lens of left eye (04/30/12) Status post cataract extraction and insertion of intraocular lens of right eye (07/12/18) Status post laryngectomy Family History Nephew Throat cancer Maternal Cousin Cancer Social History Smoking/Tobacco Use Status: Former Tobacco Use Tobacco: How many years used: 30 Smoking risk assessment performed?: Yes Alcohol Intake: never Drug use: Never Substance use type: does not use Housing: house Current gender identity: male Do you feel safe at home: Yes Do you feel safe in your relationship?: Yes Exam Narrative Exam Narrative: 1.Const: Well-nourished, Well-developed, appearing stated age 2.Eyes: PERRL, no conjunctival injection, and symmetrical lids. 3.ENT: Atraumatic external nose and ears. Moist MM. Neck: Symmetric, trachea midline, No thyromegaly. Tracheostomy site demonstrates bloody scabs all around the site itself, and internal inspection demonstrates evidence of blood and scabs as well, as well as thick bloody mucus. No active hemorrhage that I can see at this time. Patient is able to cough up bloody mucous plugs. 4.CVS: +S1/S2, No murmurs or gallops. Peripheral pulses 2+ and equal in all extremities. Brisk capillary refill in all extremities. 5.RESP: Unlabored respiratory effort. Scattered rhonchi. No signs of respiratory distress whatsoever though. Blood only comes up when the patient makes purposeful coughing to expectorate blood sputum. 6.GI: Soft, Nontender/Nondistended, No hepatosplenomegaly. No guarding or rebound. 7.MSK: Normocephalic/Atraumatic, Extremities w/o deformity or ttp No cyanosis or clubbing, Normal movement of all extremities 8.Skin: Warm, Dry. No rashes or lesions. 9.Neuro: missile tracking technician II-XII grossly intact. Sensation grossly intact, no focal neurologic deficits. 10.Psych: (AAO) x3. Appropriate mood and affect Course Vital Signs Vital signs: Vital Signs Temperature 37.1 C 01/19/23 15:42 Pulse 76 01/19/23 15:42 Respiratory Rate 20 01/19/23 15:42 Blood Pressure 116/85 01/19/23 15:42 Pulse Oximetry 97 01/19/23 15:42 Temperature 37.1 C 01/19/23 15:42 Temperature Source Skin 01/19/23 15:42 Pulse 76 01/19/23 15:42 Respiratory Rate 20 01/19/23 15:42 Respiratory Effort Normal, Non-Labored 01/19/23 16:06 Blood Pressure 116/85 01/19/23 15:42 Blood Pressure Position Sitting 01/19/23 15:42 Pulse Oximetry 97 01/19/23 15:42 Oxygen Delivery Method OxyMask 01/19/23 15:42 Oxygen Flow Rate 4 01/19/23 15:42 Pain Level 0 01/19/23 15:42 Lab/Test Results Lab/Test Results: Laboratory Tests Range/Units 01/19/23 16:40 WBC (4.4-10.8) 10^3/uL 10.37 RBC (4.36-5.78) 10^6/uL 4.33 L Hgb (13.5-17.5) g/dL 14.3 Hct (40.0-50.0) % 43.0 MCV (80-95) fL 99 H MCH (27.0-33.0) pg 33.0 MCHC (32.0-36.0) % 33.3 RDW (11.8-14.1) % 13.1 Plt Count (130-400) 10^3/uL 206 MPV (8.0-11.0) fL 10.6 Immature Gran % 0.3 Neutrophils % 74.9 Lymphocytes % 11.7 Monocytes % 7.6 Eosinophils % 4.1 Basophils % 1.4 Nucleated RBC % (0.0-0.3) % 0.0 Absolute Neutrophils (1.2-6.7) 10^3/uL 7.77 H Absolute Lymphocytes (1.2-3.4) 10^3/uL 1.21 Absolute Monocytes (0.1-0.8) 10^3/uL 0.79 Absolute Eosinophils (0.0-0.7) 10^3/uL 0.43 Absolute Basophils (0.0-0.2) 10^3/uL 0.14 Critical Care Time Critical Care Time Critical Care Time: Yes Total Critical Care Time: 30 Attestation: Upon my evaluation, this patient had a high probability of imminent or life- threatening deterioration, which required my direct attention, intervention, and personal management. I have personally provided 45 minutes of critical care time exclusive of time spent on separately billable procedures. Time includes review of laboratory data, radiology results, discussion with consultants, and monitoring for potential decompensation. Interventions were performed as documented.
[2023-01-19 17:03] LABS: Prothrombin Time 9.9 sec (9.3-11.0)
[2023-01-19 17:05] LABS: ALT 28 U/L (16-63); AST 32 U/L (15-37); Albumin 3.8 g/dL (3.4-5.0); Alkaline Phosphatase 107 U/L (46-116); Anion Gap 4.3 mmol/L (3-11); BUN 22 mg/dL (7-18); Bilirubin, Total 0.4 mg/dL (0.2-1.0); CO2 35.7 mmol/L (21.0-32.0); CREATININE 0.7 mg/dL (0.70-1.30); Calcium 9.4 mg/dL (8.5-10.1); Chloride 100 mmol/L (98-107); Glucose 86 mg/dL (74-106); Potassium 3.4 mmol/L (3.5-5.1); Sodium 140 mmol/L (136-145); Total Protein 7.8 g/dL (6.4-8.2)
--- NOTE | 2023-01-19 17:07 | DI.RAD_ITS ---
Exam(s) XR PORTABLE CHEST AP EXAM: XR PORTABLE CHEST AP CLINICAL HISTORY: cough blooding TECHNIQUE: 2D digital imaging was performed of the chest. One image was obtained. An AP view was ob tained. COMPARISON: CR,XR XR PORTABLE CHEST AP from 08/03/2021 FINDINGS: MEDIASTINUM: Normal. HEART: Normal. PULMONARY VASCULATURE: There is again seen an endovascular stent in the thoracoabdominal aorta. Post surgical changes are seen in the neck. LUNGS: No focal consolidating infiltrate. PLEURAL SPACE: No pleural effusion or pneumothorax. BONE:Within normal limits for the patient's age. OTHER FINDINGS:Normal. IMPRESSION: No acute pulmonary findings. DATA REPOSITORY: RADIATION DOSE DELIVERED:
== END 2023-01-19 21:09 | disposition short-term general hospital (02) ==
PROVIDERS: Emergency Provider Student in an Organized Health Care Education/Training Program; PCP Physician Assistant Medical
DX: R04.2 Hemoptysis (principal); J95.01 Hemorrhage from tracheostomy stoma
CPT/HCPCS: 36415; 80053; 86850; 86900; 86901; 99291; 71045; 85025; 85610; 85730

== ENCOUNTER 2023-01-30 02:52 | Outpatient (CLI) | payer MEDICARE, MEDICAID, SELFPAY ==
[2023-01-30 11:27] LABS: Hemoglobin A1C 5.8 % (<5.7)
[2023-01-30 11:59] LABS: Ferritin 340 ng/mL (26-388); Vitamin B12 1390 pg/mL (193-986)
[2023-02-02 13:33] LABS: Albumin 52.9 % (55.8-66.1); Albumin g/dL 3.6 g/dL (3.6-5.2); Total Protein 6.8 g/dL (6.3-8.2)
== END 2023-01-30 02:53 | disposition home or self-care (01) ==
LOC: LBO 02:52
PROVIDERS: PCP Physician Assistant Medical; Visit Provider Psychiatry & Neurology Neurology
DX: K94.20 Gastrostomy complication, unspecified (principal); G62.9 Polyneuropathy, unspecified; R73.9 Hyperglycemia, unspecified
CPT/HCPCS: 36415; 82607; 82728; 83036; 84165

== ENCOUNTER → 2023-02-04 10:39 | Outpatient (BNVA) | payer MEDICARE, MEDICAID, SELFPAY | PROVIDERS: PCP Physician Assistant Medical; Referring Provider Physician Assistant Medical; Visit Provider Psychiatry & Neurology Neurology | DX: G62.9 Polyneuropathy, unspecified (principal); G25.81 Restless legs syndrome; R41.3 Other amnesia; J44.9 Chronic obstructive pulmonary disease, unspecified | CPT/HCPCS: 99214 ==

== ENCOUNTER → 2023-03-04 15:08 | Outpatient (BNVA) | payer MEDICARE, MEDICAID, SELFPAY | PROVIDERS: PCP Physician Assistant Medical; Referring Provider Physician Assistant Medical; Visit Provider Nurse Practitioner Gerontology | DX: R39.89 Other symptoms and signs involving the genitourinary system (principal); R63.4 Abnormal weight loss; Z93.1 Gastrostomy status; N40.1 Benign prostatic hyperplasia with lower urinary tract symptoms | CPT/HCPCS: 51798; 99213 ==

== ENCOUNTER → 2023-03-30 12:52 | Outpatient (BNVA) | payer MEDICARE, MEDICAID, SELFPAY | PROVIDERS: PCP Physician Assistant Medical; Referring Provider Physician Assistant Medical; Visit Provider Surgery | DX: K94.23 Gastrostomy malfunction (principal) | CPT/HCPCS: 43762 ==

== ENCOUNTER → 2023-03-31 09:42 | Outpatient (BNVA) | payer MEDICARE, MEDICAID, SELFPAY | PROVIDERS: PCP Physician Assistant Medical; Referring Provider Physician Assistant Medical; Visit Provider Surgery | DX: K94.23 Gastrostomy malfunction (principal) | CPT/HCPCS: 99213 ==

== ENCOUNTER → 2023-04-01 11:15 | Outpatient (BNVA) | payer MEDICARE, MEDICAID, SELFPAY | PROVIDERS: PCP Physician Assistant Medical; Referring Provider Physician Assistant Medical; Visit Provider Surgery | DX: T85.598A Other mechanical complication of other gastrointestinal prosthetic devices, implants and grafts, initial encounter (principal) | CPT/HCPCS: 43762 ==

== ENCOUNTER 2023-04-14 14:42 | Outpatient (REF) | payer MEDICARE, MEDICAID, SELFPAY ==
[2023-04-14 15:07] LABS: Bilirubin Negative (Negative); Blood Moderate (Negative); Clarity Sl Cloudy (Clear); Glucose Negative (Negative); Ketones Negative (Negative); Leukocyte Esterase Large (Negative); Nitrite Negative (Negative); Specific Gravity 1.015 (1.005-1.025)
[2023-04-14 15:18] LABS: C & S Indicated? C&S Done As Ordered; WBC >50 HPF (0-5)
== END 2023-04-14 14:43 | disposition home or self-care (01) ==
LOC: LBN 14:42
PROVIDERS: Nurse Practitioner Gerontology; PCP Physician Assistant Medical; Visit Provider Student in an Organized Health Care Education/Training Program
DX: R30.0 Dysuria (principal); R82.89 Other abnormal findings on cytological and histological examination of urine
CPT/HCPCS: 81003; 81015; 87086

== ENCOUNTER 2023-04-21 14:23 | Inpatient (IN) | payer MEDICARE, MEDICAID, SELFPAY ==
[2023-04-21] VITALS (41 sets, daily range): BP systolic 117–203; BP diastolic 51–101; PULSE 84–115; RESP 10–46; TEMP 36.6; O2SAT 79–100
--- NOTE | 2023-04-21 14:20 | ED.GENADUL_ITS ---
Discharge Plan Disposition Patient Disposition: Admit to [facility] Discharge Details Clinical Impression: Malaise and fatigue, Mild shortness of breath, Multiple subsegmental pulmonary emboli without acute cor pulmonale Primary Care Provider: Nazia Chan ED Provider: Dwayne Delgado [place] Meds and New Rx's Prescriptions: No Action sulfamethoxazole-trimethoprim [Bactrim] 400-80 mg tablet 1 tab PO DAILY Qty: 30 7RF Rx Instructions: Take 1 tab every day, every other month. Use on the same schedule has the nebulized vancomycin. ropinirole 1 mg tablet 1 mg PO BID aspirin [Adult Aspirin Regimen] 81 mg tablet,delayed release (DR/EC) 81 mg PO DAILY acetaminophen [Tylenol Extra Strength] 500 mg tablet 1,000 mg PO BID PRN omeprazole 20 mg capsule,delayed release(DR/EC) 20 mg feeding tube BID Qty: 90 4RF acetylcysteine 100 mg/mL (10 %) solution 4 ml inhalation BID amlodipine 5 mg tablet 5 mg PO DAILY levothyroxine See Rx Instructions .ROUTE DIRECTED Rx Instructions: as directed; sertraline 50 mg tablet 50 mg PO DAILY Qty: 30 2RF Rx Instructions: decreased by PCP on 06/19/22 rosuvastatin 40 mg tablet 40 mg feeding tube HS Qty: 90 4RF ipratropium-albuterol 0.5 mg-3 mg(2.5 mg base)/3 mL solution for nebulization 3 ml IN QID PRN (Reason: shortness of breath or wheezing) Qty: 90 4RF Rx Instructions: increased dose/use treatment 4 times/day as needed NOT SENT polyethylene glycol 3350 [Miralax] 17 gram/dose powder 17 g PO DAILY PRN (Reason: constipation) Rx Instructions: 06/19/22 instructed by PCP to take 1/2 cap daily, may reduce to half cap three times per week if daily is too much acetylcysteine [NAC] 600 mg capsule 600 mg PO BID Qty: 60 12RF Vancomycin 250 mg NEB BID 28 Days Qty: 280 12RF Rx Instructions: 250mg vancomycin in 5 cc of sterile water for nebulization To be given every other month for 28 consecutive days gabapentin 100 mg capsule 200 mg PO BID Qty: 360 3RF sulfamethoxazole-trimethoprim 200-40 mg/5 mL suspension 5 ml PO DAILY 28 Days Qty: 473 9RF Rx Instructions: Take daily for 4 weeks, then off for 4 weeks, etc nystatin 100,000 unit/gram powder 1 applic topical BID Qty: 60 12RF finasteride 5 mg tablet 5 mg PO DAILY Qty: 90 3RF tamsulosin [Flomax] 0.4 mg capsule 0.4 mg PO DAILY Qty: 90 3RF melatonin 3 MG tablet 6 mg PO HS Align 4 mg Capsule 4 mg PO QPM ferrous sulfate [FeroSul] 325 mg (65 mg iron) tablet 325 mg PO DAILY Patient Comments: TAKE 1 TABLET VIA FEEDING TUBE ONCE DAILY HPI General Date/Time Provider Initiated Documentation: 04/21/23 14:33 . HPI Narrative: MDM This is a chronically ill appearing 78-year-old tachycardic but normothermic and not hypotensive G-tube dependent male with history of tracheostomy and laryngeal cancer now in the emergency department with concerns for sepsis given chills rhinorrhea for which patient will receive broad-spectrum antibiotics lactate and blood cultures. We will swab for COVID. No pain or proportion to suggest necrotizing soft tissue infection. Given diarrhea will assess electrolytes to ensure patient does not have any acute electrolyte abnormalities. No chest pain to suggest ACS so will defer ECG and troponin testing at this point time. Soft nontender abdomen and no abdominal pain so my suspicion is low for intra-abdominal infection. Patient does have decreased right-sided breath sounds making my suspicion higher for pneumonia for which patient will undergo chest x-ray. Given concern for sepsis will obtain urinalysis. No hemoptysis and given chills my suspicion for PE is low so we will defer D-dimer testing at this point time. Will cover empirically with ceftriaxone and vancomycin. Patient does carry history of AAA but given no abdominal pain my suspicion is low for rupture. Based on patient's age will initiate fluid resuscitation with 500 cc of crystalloid. Given no fevers and no recent antibiotic use my suspicion for C. difficile is low. No significant lower extremity pitting edema to suggest acute CHF. Given reported dysuria UTI certainly on the differential. 2:54 PM Patient did have marked lactic acidosis with serum lactate of 3.9. We will order a repeat lactate level to be drawn at 6 PM. 3:13 PM Basic metabolic panel showing mild anion gap no RAIZA. Mild hyperglycemia but normal bicarbonate??not consistent with DKA. CBC showing significant leukocytosis at 27 K similar to prior dated 3 years ago. No anemia. No thrombocytopenia. Given significant leukocytosis will obtain a C. difficile. 3:30 PM COVID influenza RSV all negative. Patient persistently tachycardic will provide additional 500 cc of crystalloid. Patient's partner has arrived. Patient confirms full code. 4:28 PM Urinalysis showing persistent proteinuria. Trace hematuria. Nitrite negative. Large leuk esterase persistent. Microscopy showing persistent leukocytosis. No bacteriuria. 5:30 PM Patient's heart rate normalized with fluids. Patient still felt unwell. He had had multiple episodes of watery bowel movements. He is pending a C. difficile. We will plan on hospitalizing patient as he does not feel well and he has reportedly recently been on 5 days of antibiotics for urinary tract infection. As result my suspicion is higher for sepsis. Patient is maintaining his blood pressure at the moment. 6 PM Patient requested something for pain. He is on outpatient acetaminophen which I ordered for him in addition to a single dose of oral morphine. Repeat lactate pending. 7:03 PM Improved lactic acidosis. Given concern for pneumonia will increase sensitivity with CT scan. I spoke with Dr. Grant and he requested I call him back following a CT scan. Patient requested his tube feeds which I ordered based on prior consultation note from nutrition last year: 3 containers Nutren 2.0( 237 ml per carton) providing a total of 1440 kcal, 115 g protein and 525 ml free fluid. Meeting 80% of calorie need, 100% protein need and 25% of fluid need. Continue to encourage po intake/fluid intake. [address] scan virtual radiology read: Exam: CTA Chest With Contrast Exam date and time: 04/21/2023 8:44 PM Age: 78 years old Clinical indication: Shortness of breath TECHNIQUE: Imaging protocol: Computed tomographic angiography of the chest with contrast. Exam focused on the arteries. 3D rendering (Not supervised by radiologist): MIP and/or 3D reconstructed images were created by the technologist. Contrast material: OMNIPAQUE; Contrast volume: 100 ml; Contrast route: INTRAVENOUS (IV); COMPARISON: CT CHEST PE CTA 06/09/2022 12:26 AM FINDINGS: Pulmonary arteries: Main pulmonary artery normal in caliber. There are filling defects in subsegmental pulmonary arteries of both lower lobes. Aorta: Stented, descending aorta dilated to 3.7 cm. No aortic dissection. Stent extends from descending aorta to level of distal abdominal aorta. Infrarenal aortic aneurysm measures up to 5 cm in diameter. Celiac axis, superior mesenteric artery and both renal arteries have been stented. Lungs: No consolidation. Mild emphysema. Pleural spaces: Unremarkable. No pneumothorax. No pleural effusion. Heart: Heart top normal in size. Heart RV/LV ratio: 1.1. Coronary arteries: Coronary artery calcification. Lymph nodes: Unremarkable. No enlarged lymph nodes. Bones/joints: Unremarkable. No acute fracture. Soft tissues: Unremarkable. IMPRESSION: 1. Bilateral lower lobe pulmonary emboli. 2. Coronary artery disease. 3. Dilated, stented descending aorta. 4. Stented, infrarenal aortic aneurysm measures 5 cm in diameter. 5. Emphysema. THIS REPORT CONTAINS FINDINGS THAT MAY BE CRITICAL TO PATIENT CARE. The findings were verbally communicated via telephone conference with Dr. Delgado, 04/21/2023 9:58 PM EST. The findings were acknowledged and understood. Thank you for allowing us to participate in the care of your patient. Dictated and Authenticated by: Nicola Patton DO 10:31 PM I started the patient on 1 mg/kg subcutaneous enoxaparin for his bilateral subsegmental PEs. I spoke with Dr. Grant who agreed graciously to hospitalize the patient. 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 History obtained from an outside historian: Paramedics External record review: [facility] EMR [Diagnostic interpretations performed by me:] Chest x-ray: No acute cardiopulmonary process Medications: Ceftriaxone and vancomycin Social determinants of health affecting disposition: N/A Management discussed with: Hospitalist Treatment/interventions considered: Discharge but deferred Response to therapies provided: Improved symptoms status post morphine treatment HPI This is a 78-year-old G-tube dependent and tracheostomy dependent male arriving to the emergency department via paramedics in the setting of 2 days of chills with rhinorrhea. Patient reported some constipation for which his gave him a therapeutic dose of MiraLAX. Patient became frustrated that he was still having constipation and drank an unknown additional quality of MiraLAX and began having several episodes of diarrhea. Patient reported shortness of breath. He is on baseline 4 L of oxygen. His temp was 99.9 with paramedics blood pressure was 109/70. His heart rate was between 105 and 110 bpm. He was able to stand and pivot. He has not taken any recent falls. Paramedics report that the home is in good repair. Patient denies hemoptysis fevers chest pain abdominal pain although he does endorse dysuria and frequency. Exam General: Chronically-appearing in no acute distress speaking in complete sentences using assistance at tracheostomy site with mechanical voice sounds Head: Normocephalic, atraumatic. Eye: Extraocular eye movements intact. No conjunctival injection. No scleral icterus. Ear, nose, mouth, throat: Grossly normal inspection. Normal voice, handling secretions normally. Neck: Trachea midline. Cardiovascular: Well-perfused distal extremities. Rapid regular rate. No murmurs. Respiratory: Nonlabored respiration. Decreased breath sounds right lower. Otherwise clear. Gastrointestinal: Nondistended abdomen. Soft nontender. G-tube in place. Musculoskeletal: No significant lower extremity pitting edema. Moving all 4 extremities spontaneously. Skin: Normal for age and race, grossly normal temperature and turgor. No acute rash. Neurologic: Alert and appropriate, no apparent acute deficits. Psychiatric: Mood and manner are appropriate. Grooming and personal hygiene are appropriate. Related Data Home Medications Medication Instructions Recorded Confirmed omeprazole 20 mg capsule,delayed 20 mg feeding tube BID #90 caps 10/05/19 04/21/23 release melatonin 3 mg tablet 6 mg PO HS 10/29/19 04/21/23 rosuvastatin 40 mg tablet 40 mg feeding tube HS #90 tabs 12/14/19 04/21/23 acetylcysteine 100 mg/mL (10 %) 4 ml inhalation BID 07/05/20 04/21/23 solution ipratropium 0.5 mg-albuterol 3 mg 3 ml IN QID PRN shortness of 07/30/20 04/21/23 (2.5 mg base)/3 mL nebulization breath or wheezing #90 mL soln amlodipine 5 mg tablet 5 mg PO DAILY 10/04/20 04/21/23 Bifidobacterium infantis 4 mg 4 mg PO QPM 08/03/21 04/21/23 capsule (Align) ferrous sulfate 325 mg (65 mg 325 mg PO DAILY 08/05/21 04/21/23 iron) tablet (FeroSul) sulfamethoxazole 400 1 tab PO DAILY #30 tabs 09/24/21 04/21/23 mg-trimethoprim 80 mg tablet (Bactrim) aspirin 81 mg tablet,delayed 81 mg PO DAILY 11/25/21 04/21/23 release (Adult Aspirin Regimen) ropinirole 1 mg tablet 1 mg PO BID 01/07/22 04/21/23 acetaminophen 500 mg tablet 1,000 mg PO BID PRN 03/05/22 04/21/23 (Tylenol Extra Strength) polyethylene glycol 3350 17 17 g PO DAILY PRN constipation 06/19/22 04/21/23 gram/dose oral powder (Miralax) acetylcysteine 600 mg capsule (NAC) 600 mg PO BID #60 caps 08/29/22 04/21/23 Vancomycin 250 mg NEB BID 28 days #280 mL 09/29/22 04/21/23 levothyroxine See Rx Instructions .Route 10/27/22 04/21/23 DIRECTED gabapentin 100 mg capsule 200 mg (2 x 100 mg) PO BID #360 12/10/22 04/21/23 caps sulfamethoxazole 200 5 ml PO DAILY 28 days #473 mL 12/11/22 04/21/23 mg-trimethoprim 40 mg/5 mL oral suspension nystatin 100,000 unit/gram topical 1 applic topical BID #60 grams 02/19/23 04/21/23 powder sertraline 50 mg tablet 50 mg PO DAILY #30 tabs 04/14/23 04/21/23 finasteride 5 mg tablet 5 mg PO DAILY #90 tabs 04/16/23 04/21/23 tamsulosin 0.4 mg capsule (Flomax) 0.4 mg PO DAILY #90 caps 04/16/23 04/21/23 Previous Rx's Medication Instructions Recorded omeprazole 20 mg capsule,delayed 20 mg feeding tube BID #90 caps 10/05/19 release rosuvastatin 40 mg tablet 40 mg feeding tube HS #90 tabs 12/14/19 ipratropium 0.5 mg-albuterol 3 mg 3 ml IN QID PRN shortness of 07/30/20 (2.5 mg base)/3 mL nebulization breath or wheezing #90 mL soln sulfamethoxazole 400 1 tab PO DAILY #30 tabs 09/24/21 mg-trimethoprim 80 mg tablet (Bactrim) acetylcysteine 600 mg capsule (NAC) 600 mg PO BID #60 caps 08/29/22 Vancomycin 250 mg NEB BID 28 days #280 mL 09/29/22 gabapentin 100 mg capsule 200 mg (2 x 100 mg) PO BID #360 12/10/22 caps sulfamethoxazole 200 5 ml PO DAILY 28 days #473 mL 12/11/22 mg-trimethoprim 40 mg/5 mL oral suspension nystatin 100,000 unit/gram topical 1 applic topical BID #60 grams 02/19/23 powder sertraline 50 mg tablet 50 mg PO DAILY #30 tabs 04/14/23 finasteride 5 mg tablet 5 mg PO DAILY #90 tabs 04/16/23 tamsulosin 0.4 mg capsule (Flomax) 0.4 mg PO DAILY #90 caps 04/16/23 Allergies Allergy/AdvReac Type Severity Reaction Status Date / Time pollen extracts Allergy Mild Verified 04/21/23 14:28 Tetracyclines Allergy Unknown SKIN RASH Verified 04/21/23 14:28 General CHER: 3 PFSH All Active Problems (Updated 04/21/23 @ 22:01 by Dwayne Delgado MD) Multiple subsegmental pulmonary emboli without acute cor pulmonale (Acute) Mild shortness of breath (Acute) Malaise and fatigue (Acute) C1 cervical fracture (Acute) Gastrostomy tube dysfunction (Acute) Advance care planning (Acute) Encounter for hospice care discussion (Acute) Unintentional weight loss of 10% body weight within 6 months (Acute) Dysuria (Acute) Malfunctioning jejunostomy tube (Acute) Need for follow-up by social media marketer (Acute) Dysphagia (Acute) Weakness (Acute) Impaired instrumental activities of daily living (Acute) Plantar fascial fibromatosis (Acute) Feeding tube dysfunction (Acute) Sensorineural hearing loss (SNHL) of both ears (Acute) Otalgia of right ear (Acute) Neck pain on right side (Acute) Neck pain on right side (Acute) Full code status (Acute) Need for home health care (Acute) MRSA pneumonia (Acute) pt likely colonized Occlusion of right vertebral artery (Acute) Hypoxemia (Acute) Complication of feeding tube (Acute) Peripheral neuropathy (Acute 02/21/15) PAOD (peripheral arterial occlusive disease) (Acute) COPD (chronic obstructive pulmonary disease) (Chronic) G tube feedings (Acute) 20F 3.0cm 11/30/22. Routine change every 4 months. 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 Hypertension Tobacco use COPD (chronic obstructive pulmonary disease) Post herpetic neuralgia Hypothyroidism Hyperlipemia Depression Anxiety Anemia Conjunctivitis, chronic Surgical History S/P AAA (abdominal aortic aneurysm) repair Status post laryngectomy History of esophagogastroduodenoscopy (EGD) (~08/10/19) Daron Casper APRN @ [facility]: hiatal hernia, GERD, Reyes's esophagitis, neuromuscular dysfunction History of laryngectomy Status post cardiac catheterization Status post cataract extraction and insertion of intraocular lens of right eye (07/12/18) History of tarsorrhaphy Status post cataract extraction and insertion of intraocular lens of left eye (04/30/12) 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) Sin-mullins button placed by Dr Elia Mcdonald, [facility] PROCEDURES RT/LEFT HEART CARD CATH COMPLETE LARYNGECTOMY Esophagoplasty EGD - MAC (07/06/17) Colonoscopy - MAC (07/10/17) History of radical laryngectomy Family History Nephew Throat cancer Maternal Cousin Cancer Social History Smoking/Tobacco Use Status: Former Tobacco Use Tobacco: How many years used: 30 Smoking risk assessment performed?: Yes Alcohol Intake: never Drug use: Never Substance use type: does not use Housing: house Current gender identity: male Do you feel safe at home: Yes Do you feel safe in your relationship?: Yes
--- NOTE | 2023-04-21 14:29 | DI.RAD_ITS ---
Exam(s) XR PORTABLE CHEST AP EXAM: XR PORTABLE CHEST AP CLINICAL HISTORY: Shortness of breath. TECHNIQUE: 2D digital imaging was performed. COMPARISON: CR XR PORTABLE CHEST AP from 01/19/2023 FINDINGS: Single AP portable view. Heart size is upper normal. Endovascular stent noted in the descending thoracic aorta, possibly from prior intervention for dissection. Surgical clips are seen both sides of the lower neck. There is no significant widening of the mediastinum. Lungs are clear. No infiltrates nor pleural ef fusions no evidence of pulmonary edema. No pneumothorax. No obvious fractures. IMPRESSION: No acute pulmonary findings on this single AP portable view of the chest. Stented descending thoracic aorta again noted. DATA REPOSITORY: RADIATION DOSE DELIVERED:
[2023-04-21 14:53] LABS: Abs Immature Grans 0.14 10^3/uL (0.0-0.06); HCT 44.4 % (40.0-50.0); HGB 14.9 g/dL (13.5-17.5); Lactate 3.9 mmol/L (0.6-1.4); MCH 32.3 pg (27.0-33.0); MCHC 33.6 % (32.0-36.0); MCV 96 fL (80-95); MPV 9.5 fL (8.0-11.0); Platelet Count 272 10^3/uL (130-400); RBC 4.61 10^6/uL (4.36-5.78); RDW 13.5 % (11.8-14.1); RDW-SD 47.8 fL
[2023-04-21] MEDS: Normal Saline 500 ML IV ×2 (14:59→15:38)
[2023-04-21] MEDS: cefTRIAXone 2 GM/50 ML BAG IVPB (14:59)
[2023-04-21 15:02] LABS: Anion Gap 11.4 mmol/L (3-11); BUN 28 mg/dL (7-18); CO2 28.6 mmol/L (21.0-32.0); Chloride 96 mmol/L (98-107); Estimated GFR 77.52 (mL/min/1.73m2); Glucose 114 mg/dL (74-106); Sodium 136 mmol/L (136-145)
[2023-04-21 15:11] LABS: WBC 27.42 10^3/uL (4.4-10.8)
[2023-04-21 15:12] LABS: Absolute Lymphocyte Count 1.65 10^3/uL (1.2-3.4); Absolute Monocyte Count 0.55 10^3/uL (0.1-0.8); Absolute Neutrophil Count 25.23 10^3/uL (1.2-6.7); Atypical Lymphocytes % 4; Bands % 0; Diff Comment Manual Differential; RBC Morphology Normal
[2023-04-21 15:26] LABS: COVID-19 PCR Negative (Negative); Influenza A PCR Negative (Negative); Influenza B PCR Negative (Negative); RSV PCR Negative (Negative)
[2023-04-21 15:30] LABS: Source Nasopharynx
[2023-04-21 15:35] LABS: Bilirubin Negative (Negative); Blood Trace-intact (Negative); Clarity Cloudy (Clear); Glucose Negative (Negative); Ketones Negative (Negative); Leukocyte Esterase Large (Negative); Nitrite Negative (Negative); Specific Gravity 1.015 (1.005-1.025); pH 7.5 (5-8)
[2023-04-21] MEDS: VANCOMYCIN/WATER (PEG) 1 GM/200 ML BAG IVPB (15:38)
[2023-04-21 15:53] LABS: Bacteria Negative HPF (Negative); C & S Indicated? Yes; Crystals Negative HPF (Negative); Epithelial Cells Rare HPF (Negative); Mucus Negative (Negative); WBC >50 HPF (0-5)
[2023-04-21] MEDS: Normal Saline 500 ML 250 ML IV (17:38)
[2023-04-21 18:23] LABS: Lactate 1.6 mmol/L (0.6-1.4)
[2023-04-21] MEDS: ACETAMINOPHEN 1,000 MG/100 ML BTL 400 MG IVPB (18:23)
[2023-04-21] MEDS: MORPHine 4 MG/ML SYR IVP ×2 (18:23→20:09)
--- NOTE | 2023-04-21 19:00 | DI.CT_ITS ---
Exam(s) CT CHEST PE CTA EXAM: CT CHEST PE CTA CLINICAL HISTORY: Shortness of breath. TECHNIQUE: Imaging Protocol: Axial CT angiography was performed with multi-slice acquisition and mu lti-planar and/or 3D reconstructions. CONTRAST MATERIAL: Intravenous: Omnipaque 350 contrast volume:100 mL COMPARISON: CT CT CHEST PE CTA from 06/09/2022 CR XR PORTABLE CHEST AP from 04/21/2023 FINDINGS: The examination is limited due to patient motion artifact. Tracheobronchial tree: Patent where visualized. Pulmonary parenchyma: Centrilobular emphysematous changes are present. No focal consolidating infilt rates are seen. Pulmonary Arteries: No large central pulmonary embolus is seen. There is motion defects seen limitin g evaluation of the subsegmental pulmonary arteries. A peripheral pulmonary embolus cannot be exclud ed. Mediastinum and Sonali: No dominant adenopathy or fluid collection. The esophagus is unremarkable. Pleura: No effusion or pneumothorax. Heart: The heart is not dilated. Coronary artery calcification and/or stents are seen. No pericardia l effusion. RV to LV ratio is 1.1. Aorta: There is an endovascular stent in the descending thoracic aorta extending into the abdomen. N o evidence of dissection. Upper abdomen: Unremarkable. Soft tissues: Unremarkable. Bones: Within normal limits for the patient's age. IMPRESSION: 1. There is patient motion artifact which limits evaluation of the subsegmental pulmonary arteries. A peripheral pulmonary embolus cannot be entirely excluded. There is a question of filling defects i n subsegmental pulmonary arteries. Pulmonary emboli versus artifact. 2. Pulmonary emphysema. 3. No focal consolidating infiltrates. RADIATION DOSE DELIVERED: Total DLP DATA REPOSITORY: All CT scans at this facility are submitted to the National Radiology Data Registry (NRDR) Dose Index Registry (DIR) with the [employer] (A[employer]). RADIATION OPTIMIZATION: All CT scans at this facility use at least one of these dose optimization te chniques: automated exposure control; mA and/or kV adjustment per patient size (includes targeted exa ms where dose is matched to clinical indication); or iterative reconstruction.
--- NOTE | 2023-04-21 19:57 | W.PM.HP.N ---
Date of service: 04/21/23 Time of Service: 19:57 Assessment and Plan Assessment and plan (1) Multiple subsegmental pulmonary emboli without acute cor pulmonale: Start date: 04/21/23 Status: Acute Assessment and plan: This is a 78-year-old gentleman who presented with some shortness of breath and generalized fatigue and malaise with no obvious infiltrate on CT or source of infection other than a recent UTI with very severe leukocytosis and lactic acidosis which is responded to IV fluid resuscitation. He did also have some tachycardia but his creatinine was normal. He does have low muscle mass. His tachycardia was improving with IV hydration and he was found to have multiple subsegmental pulmonary emboli and was requiring O2 supplementation. He was not having any chest pain or pleuritic pain. He was initiated on Lovenox 60 mg subcutaneously twice a day and will have an echocardiogram in the morning for follow-up. His last echocardiogram was in 2019. (2) Acidosis, lactic: Start date: 04/21/23 Status: Acute Assessment and plan: Very significant lactic acidosis upon admission which is responding to IV hydration which will be continued overnight. Patient did have no evidence of CHF and echocardiogram will be updated if available. Follow-up lactic acid in the morning. He feels better with IV hydration. (3) Leukocytosis (leucocytosis): Start date: 04/21/23 Status: Acute Assessment and plan: Significant leukocytosis with previous normal WBC and no obvious source of infection other than urinary tract with CT scan showing emphysema but no acute infiltrates. Patient will be covered with Rocephin while awaiting response to IV hydration and follow-up lab. Urine culture was obtained. Qualifiers: Leukocytosis type: other Qualified Code(s): D72.828 - Other elevated white blood cell count (4) UTI (urinary tract infection): Start date: 04/21/23 Status: Acute Assessment and plan: Urine culture was obtained and patient will continue on Rocephin with follow-up on culture report. Because his last urine culture did show Cassandra albicans, he will be started on Diflucan with follow-up on this urine culture report and decide on continued need for this antifungal. He does appear to have chronic problems with this though there is no history of significant obstruction. He is on Flomax and Proscar. Qualifiers: Urinary tract infection type: site unspecified Hematuria presence: without hematuria Qualified Code(s): N39.0 - Urinary tract infection, site not specified (5) History of laryngeal cancer: Assessment and plan: Status post laryngectomy with tracheostomy and patient speaking with hand-held voicebox. He does not appear to be able to eat normally but this could be reconciled in the morning the patient having tube feedings ordered by the ED physician for now. (6) COPD (chronic obstructive pulmonary disease): Status: Chronic Assessment and plan: Continue respiratory treatments and O2 supplementation. Patient is seeing pulmonology chronically. CT scan is significant for emphysema. (7) Hypothyroidism: Assessment and plan: Patient's levothyroxine dose is not listed and should be reconciled in the morning with TSH to be added to the lab. History of Present Illness History of Present Illness Chief Complaint: Malaise and fatigue with shortness of breath Narrative: This is a 78-year-old gentleman who has had a tracheostomy secondary to resection of laryngeal cancer about 10 years prior to this presentation. He does have tube feedings and has been losing weight despite adequate feedings. He has no voicebox and uses a device to speak. He seems confused about his diet stating at first he can swallow and eat and then talk about having a bag hanging going into his PEG tube. He presents having been treated for UTI recently and slightly improving but then becoming more fatigued with some chills but no measured fever. He was tachycardic and did have IV fluid resuscitation in the ED. Evaluation did reveal lactic acidosis which was improving with hydration and CT scan of the chest reveals bilateral subsegmental PE. Patient was not significantly hypoxic requiring 4 L/min nasal cannula with a baseline O2 supplementation at home around 2 L/min per nasal cannula.. He was initiated on treatment for his pulmonary emboli with Lovenox and having had a recent urine culture growing Cassandra albicans with gram-positive cocci he was continued on Rocephin IV because of some concerns of early sepsis with lactic acidosis and Diflucan which could be reevaluated in the morning as to whether this is necessary with an even older urine culture in the past revealing the same Cassandra albicans. As that he did not have fever he did have tachycardia but no hypotension. He was improving with IV fluids. He is a very poor historian and difficult to understand. There is a question the patient having C. difficile but no loose stool sample was obtained and test not performed at this time. He did have some loose stools with the increased dose of MiraLAX at home. He has been on antibiotics recently. If he has recurrent loose stools C. difficile should be checked. With the patient's shortness of breath he did not have any peripheral edema with significant hypoxemia. He denied any chest pain. Patient is a full code. Review of Systems Narrative: 13 point review of systems otherwise unrevealing or unobtainable with patient being a very poor historian. PFSH All Active Problems Acidosis, lactic (Acute) Leukocytosis (leucocytosis) (Acute) UTI (urinary tract infection) (Acute) Multiple subsegmental pulmonary emboli without acute cor pulmonale (Acute) Mild shortness of breath (Acute) Malaise and fatigue (Acute) C1 cervical fracture (Acute) Gastrostomy tube dysfunction (Acute) Advance care planning (Acute) Encounter for hospice care discussion (Acute) Unintentional weight loss of 10% body weight within 6 months (Acute) Dysuria (Acute) Malfunctioning jejunostomy tube (Acute) Need for follow-up by mental health social worker (Acute) Dysphagia (Acute) Weakness (Acute) Impaired instrumental activities of daily living (Acute) Plantar fascial fibromatosis (Acute) Feeding tube dysfunction (Acute) Sensorineural hearing loss (SNHL) of both ears (Acute) Otalgia of right ear (Acute) Neck pain on right side (Acute) Neck pain on right side (Acute) Full code status (Acute) Need for home health care (Acute) MRSA pneumonia (Acute) pt likely colonized Occlusion of right vertebral artery (Acute) Hypoxemia (Acute) Complication of feeding tube (Acute) Peripheral neuropathy (Acute 02/21/15) PAOD (peripheral arterial occlusive disease) (Acute) COPD (chronic obstructive pulmonary disease) (Chronic) G tube feedings (Acute) 20F 3.0cm 11/30/22. Routine change every 4 months. 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 Hypertension Tobacco use COPD (chronic obstructive pulmonary disease) Post herpetic neuralgia Hypothyroidism Hyperlipemia Depression Anxiety Anemia Conjunctivitis, chronic Surgical History S/P AAA (abdominal aortic aneurysm) repair Status post laryngectomy History of esophagogastroduodenoscopy (EGD) (~08/10/19) Daron Casper APRN @ [facility] [place]: hiatal hernia, GERD, Reyes's esophagitis, neuromuscular dysfunction History of laryngectomy Status post cardiac catheterization Status post cataract extraction and insertion of intraocular lens of right eye (07/12/18) History of tarsorrhaphy Status post cataract extraction and insertion of intraocular lens of left eye (04/30/12) 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) Sin-mullins button placed by Dr Elia Mcdonald, [facility] PROCEDURES RT/LEFT HEART CARD CATH COMPLETE LARYNGECTOMY Esophagoplasty EGD - MAC (07/06/17) Colonoscopy - MAC (12/22/16) History of radical laryngectomy Family History Nephew Throat cancer Maternal Cousin Cancer Social History Smoking/Tobacco Use Status: Former Tobacco Use Tobacco: How many years used: 30 Smoking risk assessment performed?: Yes Alcohol Intake: never Drug use: Never Substance use type: does not use Housing: apartment Current gender identity: male Do you feel safe at home: Yes Do you feel safe in your relationship?: Yes Meds Allergies and Home Medications Allergies Allergy/AdvReac Type Severity Reaction Status Date / Time pollen extracts Allergy Mild Verified 04/21/23 14:28 Tetracyclines Allergy Unknown SKIN RASH Verified 04/21/23 14:28 Home Medications Medication Instructions Recorded Confirmed Type omeprazole 20 mg capsule,delayed 20 mg feeding tube BID #90 caps 10/05/19 04/21/23 Rx release melatonin 3 mg tablet 6 mg PO HS 10/29/19 04/21/23 History rosuvastatin 40 mg tablet 40 mg feeding tube HS #90 tabs 12/14/19 04/21/23 Rx acetylcysteine 100 mg/mL (10 %) 4 ml inhalation BID 07/05/20 04/21/23 History solution ipratropium 0.5 mg-albuterol 3 mg 3 ml IN QID PRN shortness of 07/30/20 04/21/23 Rx (2.5 mg base)/3 mL nebulization breath or wheezing #90 mL soln amlodipine 5 mg tablet 5 mg PO DAILY 10/04/20 04/21/23 History Bifidobacterium infantis 4 mg 4 mg PO QPM 08/03/21 04/21/23 History capsule (Align) ferrous sulfate 325 mg (65 mg 325 mg PO DAILY 08/05/21 04/21/23 History iron) tablet (FeroSul) sulfamethoxazole 400 1 tab PO DAILY #30 tabs 09/24/21 04/21/23 Rx mg-trimethoprim 80 mg tablet (Bactrim) aspirin 81 mg tablet,delayed 81 mg PO DAILY 11/25/21 04/21/23 History release (Adult Aspirin Regimen) ropinirole 1 mg tablet 1 mg PO BID 01/07/22 04/21/23 History acetaminophen 500 mg tablet 1,000 mg PO BID PRN 03/05/22 04/21/23 History (Tylenol Extra Strength) polyethylene glycol 3350 17 17 g PO DAILY PRN constipation 06/19/22 04/21/23 History gram/dose oral powder (Miralax) acetylcysteine 600 mg capsule (NAC) 600 mg PO BID #60 caps 08/29/22 04/21/23 Rx Vancomycin 250 mg NEB BID 28 days #280 mL 09/29/22 04/21/23 Rx levothyroxine See Rx Instructions .Route 10/27/22 04/21/23 History DIRECTED gabapentin 100 mg capsule 200 mg (2 x 100 mg) PO BID #360 12/10/22 04/21/23 Rx caps sulfamethoxazole 200 5 ml PO DAILY 28 days #473 mL 12/11/22 04/21/23 Rx mg-trimethoprim 40 mg/5 mL oral suspension nystatin 100,000 unit/gram topical 1 applic topical BID #60 grams 02/19/23 04/21/23 Rx powder sertraline 50 mg tablet 50 mg PO DAILY #30 tabs 04/14/23 04/21/23 Rx finasteride 5 mg tablet 5 mg PO DAILY #90 tabs 04/16/23 04/21/23 Rx tamsulosin 0.4 mg capsule (Flomax) 0.4 mg PO DAILY #90 caps 04/16/23 04/21/23 Rx Exam Narrative Exam Narrative: General: Patient is short stature with severe kyphosis of the lower thoracic spine. Almost cachectic. He is in no acute distress. He does speak with an external device which is difficult to understand at times. He is alert and oriented at least to person and place. HEENT: Normocephalic, coarsened facial features. Right eye has arcus senilis and pupil is normal size, round and reactive with left eye having concave opaque area over cornea with no light reflex. Oropharynx with dentures legs on the bottom question of placed on the top with moist oral mucosa. Neck: Supple without JVD. Lungs: Coarse crackles over the left more than right base with bronchovesicular breath sounds diffusely and no focalizing findings. Severe kyphosis of his lower thoracic spine and upper lumbar spine appear to cause some restriction in deep breathing. Back: Severely kyphotic with some scoliosis. No CVA tenderness. Heart: Does not sounds with regular rate and rhythm. No appreciable murmur or gallop. Abdomen: Scaphoid contour, soft and nontender to palpation with no palpable hepatosplenomegaly. PEG tube is placed centrally over the epigastrium. Genitalia/rectal: Exam deferred. Extremities: Muscle wasting diffusely with no pitting edema. No clubbing or cyanosis. Joints have fair range of motion but restricted with some bony changes. Capillary refill fair. Skin: Pale, warm and dry. Slight decreased turgor. Neuro: Cranial nerves II through XII grossly intact, no focalizing motor deficits or tremor. Psych: Flattened affect with depressed mood. No abnormal thought processes. Remote and recent memory grossly intact. Results Imaging Additional studies: Echocardiogram performed 09/21/2019 revealed normal left ventricular systolic function at 65% ejection fraction and normal right ventricular function Imaging Studies: Exam: CTA Chest With Contrast Exam date and time: 04/21/2023 8:44 PM Age: 78 years old Clinical indication: Shortness of breath COMPARISON: CT CHEST PE CTA 06/09/2022 12:26 AM FINDINGS: Pulmonary arteries: Main pulmonary artery normal in caliber. There are filling defects in subsegmental pulmonary arteries of both lower lobes. Aorta: Stented, descending aorta dilated to 3.7 cm. No aortic dissection. Stent extends from descending aorta to level of distal abdominal aorta. Infrarenal aortic aneurysm measures up to 5 cm in diameter. Celiac axis, superior mesenteric artery and both renal arteries have been stented. Lungs: No consolidation. Mild emphysema. Pleural spaces: Unremarkable. No pneumothorax. No pleural effusion. Heart: Heart top normal in size. Heart RV/LV ratio: 1.1. Coronary arteries: Coronary artery calcification. Lymph nodes: Unremarkable. No enlarged lymph nodes. Bones/joints: Unremarkable. No acute fracture. Soft tissues: Unremarkable. IMPRESSION: 1. Bilateral lower lobe pulmonary emboli. 2. Coronary artery disease. 3. Dilated, stented descending aorta. 4. Stented, infrarenal aortic aneurysm measures 5 cm in diameter. 5. Emphysema. EXAM: XR PORTABLE CHEST AP CLINICAL HISTORY: Shortness of breath. TECHNIQUE: 2D digital imaging was performed. COMPARISON: CR XR PORTABLE CHEST AP from 01/19/2023 FINDINGS: Single AP portable view. Heart size is upper normal. Endovascular stent noted in the descending thoracic aorta, possibly from prior intervention for dissection. Surgical clips are seen both sides of the lower neck. There is no significant widening of the mediastinum. Lungs are clear. No infiltrates nor pleural effusions no evidence of pulmonary edema. No pneumothorax. No obvious fractures. IMPRESSION: No acute pulmonary findings on this single AP portable view of the chest. Stented descending thoracic aorta again noted. Labs 04/21/23 14:44 04/21/23 14:44 Labs: Laboratory Results - last 24 hr 04/21/23 04/21/23 04/21/23 14:00 14:44 15:29 WBC 27.42 H* RBC 4.61 Hgb 14.9 Hct 44.4 MCV 96 H MCH 32.3 MCHC 33.6 RDW 13.5 Plt Count 272 MPV 9.5 Immature Gran % 0.0 Neutrophils % 92.0 Band Neutrophils % 0 Lymphocytes % 2.0 Atypical Lymphs % 4 Monocytes % 2.0 Eosinophils % 0.0 Basophils % 0.0 Nucleated RBC % 0.0 Absolute Neutrophils 25.23 H Absolute Lymphocytes 1.65 Absolute Monocytes 0.55 Absolute Eosinophils 0.00 Absolute Basophils 0.00 RBC Morphology Normal VBG Lactate 3.9 H* Sodium 136 Potassium 4.0 Chloride 96 L Carbon Dioxide 28.6 Anion Gap 11.4 H BUN 28 H Creatinine 1.0 Est GFR (CKD-EPI 2020) 77.52 Glucose 114 H Calcium 10.0 Urine Color Yellow Urine Clarity Cloudy Urine pH 7.5 Ur Specific [place] 1.015 Urine Protein 100 H Urine Ketones Negative Urine Blood Trace-intact H Urine Nitrite Negative Urine Bilirubin Negative Urine Urobilinogen 2.0 H Ur Leukocyte Esterase Large H Urine RBC 5-10 H Urine WBC >50 H Ur Epithelial Cells Rare Urine Crystals Negative Urine Bacteria Negative Urine Mucus Negative Ur Culture Indicated? Yes Urine Glucose Negative Stl C.difficile Tox PCR COVID-19 Source Nasopharynx SARS-CoV-2 (PCR) Negative Influenza Type A (PCR) Negative Influenza Type B (PCR) Negative RSV (PCR) Negative 04/21/23 04/21/23 17:26 18:20 WBC RBC Hgb Hct MCV MCH MCHC RDW Plt Count MPV Immature Gran % Neutrophils % Band Neutrophils % Lymphocytes % Atypical Lymphs % Monocytes % Eosinophils % Basophils % Nucleated RBC % Absolute Neutrophils Absolute Lymphocytes Absolute Monocytes Absolute Eosinophils Absolute Basophils RBC Morphology VBG Lactate 1.6 H Sodium Potassium Chloride Carbon Dioxide Anion Gap BUN Creatinine Est GFR (CKD-EPI 2020) Glucose Calcium Urine Color Urine Clarity Urine pH Ur Specific [place] Urine Protein Urine Ketones Urine Blood Urine Nitrite Urine Bilirubin Urine Urobilinogen Ur Leukocyte Esterase Urine RBC Urine WBC Ur Epithelial Cells Urine Crystals Urine Bacteria Urine Mucus Ur Culture Indicated? Urine Glucose Stl C.difficile Tox PCR Cancelled COVID-19 Source SARS-CoV-2 (PCR) Influenza Type A (PCR) Influenza Type B (PCR) RSV (PCR) Last Vital Signs Temp 36.6 C 04/21/23 14:23 Pulse 106 H 04/21/23 14:23 Resp 33 H 04/21/23 17:41 BP 132/101 H 04/21/23 14:23 Pulse Ox 100 04/21/23 14:23 Time Spent Time spent with Patient: >75 minutes Time was spent: preparing to see the patient(eg.review tests), obtaining and/or reviewing separately otained hiistory, ordering medications,tests, procedures, referring, communicating with other health patient care technician, indepentently interpreting results and care coordination
[2023-04-21] MEDS: Normal Saline Flush 10 ML SYR IVP (20:45)
[2023-04-21] MEDS: Omnipaque 350 MG/ML 100 ML BTL IJ (20:46)
[2023-04-21] MEDS: Normal Saline - Diluent 50 ML VIAL IJ (20:55)
--- NOTE | 2023-04-21 21:59 | DI.VRAD_ITS ---
PROCEDURE INFORMATION: Exam: CTA Chest With Contrast Exam date and time: 04/21/2023 8:44 PM Age: 78 years old Clinical indication: Shortness of breath TECHNIQUE: Imaging protocol: Computed tomographic angiography of the chest with contrast. Exam focused on the arteries. 3D rendering (Not supervised by radiologist): MIP and/or 3D reconstructed images were created by the technologist. Contrast material: OMNIPAQUE; Contrast volume: 100 ml; Contrast route: INTRAVENOUS (IV); COMPARISON: CT CHEST PE CTA 06/09/2022 12:26 AM FINDINGS: Pulmonary arteries: Main pulmonary artery normal in caliber. There are filling defects in subsegmental pulmonary arteries of both lower lobes. Aorta: Stented, descending aorta dilated to 3.7 cm. No aortic dissection. Stent extends from descending aorta to level of distal abdominal aorta. Infrarenal aortic aneurysm measures up to 5 cm in diameter. Celiac axis, superior mesenteric artery and both renal arteries have been stented. Lungs: No consolidation. Mild emphysema. Pleural spaces: Unremarkable. No pneumothorax. No pleural effusion. Heart: Heart top normal in size. Heart RV/LV ratio: 1.1. Coronary arteries: Coronary artery calcification. Lymph nodes: Unremarkable. No enlarged lymph nodes. Bones/joints: Unremarkable. No acute fracture. Soft tissues: Unremarkable. IMPRESSION: 1. Bilateral lower lobe pulmonary emboli. 2. Coronary artery disease. 3. Dilated, stented descending aorta. 4. Stented, infrarenal aortic aneurysm measures 5 cm in diameter. 5. Emphysema. THIS REPORT CONTAINS FINDINGS THAT MAY BE CRITICAL TO PATIENT CARE. The findings were verbally communicated via telephone conference with Dr. Delgado, 04/21/2023 9:58 PM EST. The findings were acknowledged and understood. Dictated and Authenticated by: Nicola Patton MD. Ordering:JUAN Rice MD
[2023-04-21] MEDS: Enoxaparin 60 MG/0.6 ML SYR SC (23:14)
[2023-04-22] VITALS (13 sets, daily range): BP systolic 71–180; BP diastolic 47–89; PULSE 68–87; RESP 8–20; TEMP 36–37; O2SAT 93–98
[2023-04-22 00:45] LABS: TSH (W/Ref FT4) 2.06 uIU/mL (0.36-3.74)
[2023-04-22] MEDS: Normal Saline 1,000 ML 150 ML IV (03:14)
[2023-04-22] MEDS: FLUCONAZOLE 50 MG IV (03:15)
[2023-04-22] MEDS: Acetaminophen 325 MG TAB PO (03:18)
[2023-04-22] MEDS: Gabapentin 100 MG CAP 200 MG PO ×3 (03:31→19:53)
[2023-04-22] MEDS: rOPINIRole 0.5 MG TAB 1 MG PO ×3 (03:32→19:53)
[2023-04-22] MEDS: Melatonin 3 MG TAB 6 MG PO ×2 (03:32→22:56)
[2023-04-22 06:56] LABS: Lactate 1.2 mmol/L (0.6-1.4)
[2023-04-22 07:04] LABS: HGB 13.6 g/dL (13.5-17.5); MCH 32.5 pg (27.0-33.0); MCHC 33.2 % (32.0-36.0); MCV 98 fL (80-95); MPV 9.6 fL (8.0-11.0); Platelet Count 199 10^3/uL (130-400); RBC 4.18 10^6/uL (4.36-5.78); RDW 14.2 % (11.8-14.1); RDW-SD 50.4 fL; WBC 15.74 10^3/uL (4.4-10.8)
[2023-04-22 07:26] LABS: ALT 33 U/L (16-63); AST 43 U/L (15-37); Albumin 3.4 g/dL (3.4-5.0); Alkaline Phosphatase 74 U/L (46-116); Anion Gap 11.2 mmol/L (3-11); BUN 26 mg/dL (7-18); Bilirubin, Total 0.7 mg/dL (0.2-1.0); CO2 25.8 mmol/L (21.0-32.0); CREATININE 0.9 mg/dL (0.70-1.30); Calcium 9.3 mg/dL (8.5-10.1); Chloride 105 mmol/L (98-107); Estimated GFR 87.96 (mL/min/1.73m2); Glucose 124 mg/dL (74-106); Magnesium 2.3 mg/dL (1.8-2.4); Potassium 3.5 mmol/L (3.5-5.1); Sodium 142 mmol/L (136-145); Total Protein 7.3 g/dL (6.4-8.2)
--- NOTE | 2023-04-22 08:40 | PDOC.CMIN ---
Care Management Initial Assmt Initial Assessment REASON FOR HOSPITALIZATION:: Pulmonary emboli, UTI PREVIOUS FUNCTIONAL STATUS/SOCIAL/FAMILY SUPPORTS:: Chan lives in [place], [place] with his partner Kiara Lim. He has no children. 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 He is independent at baseline and does not receive any community services. Pindea does own a walker which he uses on occasion outside of the home. CURRENT FUNCTIONAL STATUS:: Pineda was sitting up in bed visiting with Kiara when CM met with him. He was pleasant and agreeable to conversation. Pineda has had a laryngectomy and uses an electronic device for communication. This morning he had an episode of hypotension where his blood pressure was 71/47. He was given IV fluids and started on antibiotics. He remains afebrile. ADVANCE DIRECTIVES:: On file. Kiara Lim [facility] Has patient been provided with info about the portal/API?: Yes Did the patient sign up for the portal?: Yes CODE STATUS:: Full Code INSURANCE COVERAGE / FINANCIAL ISSUES:: Medicare [employer] Senior supplement CURRENT HOME/COMMUNITY SERVICES/EQUIPMENT:: owns a walker PRIMARY CARE PHYSICIAN:: Irena Moya - [facility] [place] Internal medicine POTENTIAL DISCHARGE NEEDS:: follow up with PCP and plan of care PATIENT/FAMILY EDUCATION NEEDS:: Review of discharge instructions, limitations, follow up plan, discuss Ask Me Three TRANSPORTATION:: via private vehicle PLAN:: Anticipate Chan will be discharged home with no new services. He will follow up with his community providers and plan of care and transport with family. CM will follow and continue to assess for discharge planning concerns. PFSH All Active Problems (Updated 04/22/23 @ 12:28 by Pablo Brooks MD) Ambulatory dysfunction (Acute) Acidosis, lactic (Acute) Leukocytosis (leucocytosis) (Acute) UTI (urinary tract infection) (Acute) Multiple subsegmental pulmonary emboli without acute cor pulmonale (Acute) Mild shortness of breath (Acute) Malaise and fatigue (Acute) C1 cervical fracture (Acute) Gastrostomy tube dysfunction (Acute) Advance care planning (Acute) Encounter for hospice care discussion (Acute) Unintentional weight loss of 10% body weight within 6 months (Acute) Dysuria (Acute) Malfunctioning jejunostomy tube (Acute) Need for follow-up by high school social science teacher (Acute) Dysphagia (Acute) Weakness (Acute) Impaired instrumental activities of daily living (Acute) Plantar fascial fibromatosis (Acute) Feeding tube dysfunction (Acute) Sensorineural hearing loss (SNHL) of both ears (Acute) Otalgia of right ear (Acute) Neck pain on right side (Acute) Neck pain on right side (Acute) Full code status (Acute) Need for home health care (Acute) MRSA pneumonia (Acute) pt likely colonized Occlusion of right vertebral artery (Acute) Hypoxemia (Acute) Complication of feeding tube (Acute) Peripheral neuropathy (Acute 02/21/15) PAOD (peripheral arterial occlusive disease) (Acute) COPD (chronic obstructive pulmonary disease) (Chronic) G tube feedings (Acute) 20F 3.0cm 11/30/22. Routine change every 4 months. 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 Hypertension Tobacco use COPD (chronic obstructive pulmonary disease) Post herpetic neuralgia Hypothyroidism Hyperlipemia Depression Anxiety Anemia Conjunctivitis, chronic Surgical History S/P AAA (abdominal aortic aneurysm) repair Status post laryngectomy History of esophagogastroduodenoscopy (EGD) (~08/10/19) Daron Casper APRN @ [facility] [place]: hiatal hernia, GERD, Reyes's esophagitis, neuromuscular dysfunction History of laryngectomy Status post cardiac catheterization Status post cataract extraction and insertion of intraocular lens of right eye (07/12/18) History of tarsorrhaphy Status post cataract extraction and insertion of intraocular lens of left eye (04/30/12) 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) Sin-mullins button placed by Dr Elia Mcdonald, [facility] PROCEDURES RT/LEFT HEART CARD CATH COMPLETE LARYNGECTOMY Esophagoplasty EGD - MAC (07/06/17) Colonoscopy - MAC (12/22/16) History of radical laryngectomy Family History Nephew Throat cancer Maternal Cousin Cancer Social History Smoking/Tobacco Use Status: Former Tobacco Use Tobacco: How many years used: 30 Smoking risk assessment performed?: Yes Alcohol Intake: never Drug use: Never Substance use type: does not use Housing: apartment Current gender identity: male Do you feel safe at home: Yes Do you feel safe in your relationship?: Yes
[2023-04-22] MEDS: Acetylcysteine 600 MG CAP PO ×2 (09:40→19:53)
[2023-04-22] MEDS: Ferrous Sulfate 325 MG TAB PO (09:40)
[2023-04-22] MEDS: Sertraline 50 MG TAB PO (09:40)
[2023-04-22] MEDS: Finasteride 5 MG TAB PO (09:40)
[2023-04-22] MEDS: Aspirin E.C. 81 MG TABEC PO (09:40)
[2023-04-22] MEDS: amLODIPine 5 MG TAB PO (09:40)
[2023-04-22] MEDS: Tamsulosin 0.4 MG CAPCR PO (09:40)
[2023-04-22] MEDS: Enoxaparin 60 MG/0.6 ML SYR 50 MG SC ×2 (09:41→22:54)
--- NOTE | 2023-04-22 10:44 | W.NUTCONSULT ---
Date of service: 04/22/23 Time of Service: 10:44 Nutritional Consult ASSESSMENT: Mr Nevarez admitted yesterday with lactic acidosis, leukocytosis, UTI. Hx of COPD, laryngeal cancer - s/p laryngectomy with PEG tube placement. Mr Geri was a poor historian as to which enteral formula and rate he uses at home. I called his , Kiara to get this information. She states he takes 2 cartons of Nutren 2.0 during the day and another 2 cartons in the evening at a rate of 100mL/hr. However, she says he will disconnect and reconnect throughout the feeding when he feels like it because he doesn't like to be tethered down. She confirms that he sometimes doesn't finish the full feeding. She also states he does take ensure at home (ad lyle) with good toleration and also takes jello, pudding and pastries in small amounts with good toleration as long as he takes his time and receives tiny amounts. Pt's current wt of 51.71kg is a change of -11.79kg since 05/28/22 (18.6%wt loss), and is a 6.8kg loss over the last 6 months (11.7% wt loss from 10/27/22) His current BMI is <18kg/m2. Pt's current estimated nutrition needs: for refeeding 1293kcals for 7-10days (25kcal/kg current wt) and then 1750kcals (25kcal per kg of ideal body weight of 70kg), 84g protein (1.2g/kg of IBW), and 1300mL fluid. NUTRITIONAL DIAGNOSIS: severe malnutrition in the context of chronic illness as evidenced by >20% wt loss over a 1 year duration. INTERVENTION: Dietary dpartment currently does not have Nutren formula in stock. This is being ordered. Current recommendation for enteral feeding: Jevity 1.5cal at 30mL/hr x4hr, increase by 15mL/hr every 4 hours until goal of 72mL/Hr x 12 hours. Flush every 2 hours with 106mL water. End goal provides 1296kcals (100% of needs), 55g protein (65% of needs) and 1292mL free water. MONITORING AND EVALUATION: Would suggest monitoring phosphorus, magnesium and potassium levels as pt is at risk of refeeding syndrome with his current BMI and wt loss of >10% over the last 3-6 months. Time Spent in Nutritional Counseling and Treatment: 30 minutes
--- NOTE | 2023-04-22 11:54 | W.PM.PROGNOT ---
Date of Service Date of service: 04/22/23 Time of Service: 11:54 Assessment and Plan Assessment and plan (1) Multiple subsegmental pulmonary emboli without acute cor pulmonale: Start date: 04/21/23 Status: Acute Assessment and plan: This is a 78-year-old gentleman who presented with some shortness of breath and generalized fatigue and malaise with no obvious infiltrate on CT or source of infection other than a recent UTI with very severe leukocytosis and lactic acidosis which is responded to IV fluid resuscitation. He did also have some tachycardia but his creatinine was normal. He does have low muscle mass. His tachycardia was improving with IV hydration and he was found to have multiple subsegmental pulmonary emboli and was requiring O2 supplementation. He was not having any chest pain or pleuritic pain. He was initiated on Lovenox 60 mg subcutaneously twice a day and will have an echocardiogram in the morning for follow-up. As above per Dr. Grant' note. I think that the patient has had poor intake, and is dehydrated but there is evidence for sepspis given his severe leukocytosis and lactic acid levels. No procalcitionin was done which might further lend credences to sepsis as cause of his hypotension. I will continue volume resuscitation, continue Ceftriaxone empirically for possible urosepsis, the recent Candiduria is questionable as to colonization or actual infection. He only had the one dose of Diflucan and yet his WBC came down ovenright to 15,000, therefore I do not think this is a systemic Cassandra infection. I will switch to oral Diflucan but continue Rocephin at 2 gm daily pending blood c&s results. (2) Acidosis, lactic: Start date: 04/21/23 Status: Acute Assessment and plan: lactic acidosis has resolved overnigth w/ iv fluids. (3) Leukocytosis (leucocytosis): Start date: 04/21/23 Status: Acute Assessment and plan: continue antibiotics as above. monitor procalcitonin and WBC, await urine and blood cultures. Qualifiers: Leukocytosis type: other Qualified Code(s): D72.828 - Other elevated white blood cell count (4) UTI (urinary tract infection): Start date: 04/21/23 Status: Acute Assessment and plan: as above. no imaging was done of his kidneys however he has no flank pain. consider [place] o fhis kidneys Qualifiers: Urinary tract infection type: site unspecified Hematuria presence: without hematuria Qualified Code(s): N39.0 - Urinary tract infection, site not specified (5) History of laryngeal cancer: Assessment and plan: Status post laryngectomy with tracheostomy and patient speaking with hand-held voicebox. He does not appear to be able to eat normally but this could be reconciled in the morning the patient having tube feedings ordered by the ED physician for now. (6) COPD (chronic obstructive pulmonary disease): Status: Chronic Assessment and plan: Continue respiratory treatments and O2 supplementation. Patient is seeing pulmonology chronically. CT scan is significant for emphysema. Qualifiers: COPD type: emphysema Emphysema type: panlobular Qualified Code(s): J43.1 - Panlobular emphysema (7) Hypothyroidism: Assessment and plan: Patient's levothyroxine dose is not listed and should be reconciled in the morning with TSH to be added to the lab. Qualifiers: Hypothyroidism type: acquired Qualified Code(s): E03.9 - Hypothyroidism, unspecified Subjective Subjective Interval history since last seen: Patient was admitted last night w/ symptoms of fatigue, malaise, general weakness and dyspnea. His labs were consistent w/ dehydration and possible sepsis w/ elevated WBC 27,000, lactate 3.9, UA w/ pyuria but not bacteruria. His prior urine culture have grown Cassandra. Blood cultures were obtained and CTA chest was performed and no lung consolidations were seen but questionable subsegmental pulmonary emboli were seen by V rad interpretation but this morning the overread by our radiologist indicates that there is a lot of motion artifact and subsegemental pulmonary arteries were not well visualized but PE could not be ruled out. He was given iv fluids and started on Rocephin and Diflucan. This morning he has become hypotensive again w/ SBP in the 70's to 80's and mildly symptomatic however he was also given his amlodipine this morning when his BP was only 108/73. When he presented to the ED yesterday afternoon his BP was 132/101 however later graciela to 203/84, coming down to 117/65 only to rise higher last night to 180/89. I was called to see him urgently when nursing got SBP in the 70's. I did POCUS exam which shows normal LV and RV systolic fxn, the RV appears to be upper normal in size but is not equal in size to the LV and there is no paradoxical septal wall motion, his IVC is only 1 cm w/ over 57% inspiratory collapsability, therefore I do not think his hypotension is related to his small, questionable subsegmental PE. I think that he is dehydrated and hypovolemic +/- sepsis. I have ordered fluid boluses. Exam Narrative Exam Narrative: Cachectic elderly male his electronic voice. He denies chest discomfort or shortness of breath presently. He did feel mildly dizzy this morning. Lungs are clear to auscultation Heart is regular Abdomen is scaphoid soft and nontender Extremities no peripheral edema or cyanosis he has generalized muscle wasting of his arms and his legs. Objective Last Vital Signs Temp 36.0 C L 04/22/23 10:52 Pulse 68 04/22/23 10:52 Resp 17 04/22/23 10:52 BP 71/47 L 04/22/23 10:52 Pulse Ox 96 04/22/23 10:52 Laboratory Results - last 24 hr 04/21/23 04/21/23 04/21/23 14:00 14:44 15:29 WBC 27.42 H* RBC 4.61 Hgb 14.9 Hct 44.4 MCV 96 H MCH 32.3 MCHC 33.6 RDW 13.5 Plt Count 272 MPV 9.5 Immature Gran % 0.0 Neutrophils % 92.0 Band Neutrophils % 0 Lymphocytes % 2.0 Atypical Lymphs % 4 Monocytes % 2.0 Eosinophils % 0.0 Basophils % 0.0 Nucleated RBC % 0.0 Absolute Neutrophils 25.23 H Absolute Lymphocytes 1.65 Absolute Monocytes 0.55 Absolute Eosinophils 0.00 Absolute Basophils 0.00 RBC Morphology Normal VBG Lactate 3.9 H* Sodium 136 Potassium 4.0 Chloride 96 L Carbon Dioxide 28.6 Anion Gap 11.4 H BUN 28 H Creatinine 1.0 Est GFR (CKD-EPI 2020) 77.52 Glucose 114 H Calcium 10.0 Magnesium Total Bilirubin AST ALT Alkaline Phosphatase Total Protein Albumin TSH Urine Color Yellow Urine Clarity Cloudy Urine pH 7.5 Ur Specific [place] 1.015 Urine Protein 100 H Urine Ketones Negative Urine Blood Trace-intact H Urine Nitrite Negative Urine Bilirubin Negative Urine Urobilinogen 2.0 H Ur Leukocyte Esterase Large H Urine RBC 5-10 H Urine WBC >50 H Ur Epithelial Cells Rare Urine Crystals Negative Urine Bacteria Negative Urine Mucus Negative Ur Culture Indicated? Yes Urine Glucose Negative Stl C.difficile Tox PCR COVID-19 Source Nasopharynx SARS-CoV-2 (PCR) Negative Influenza Type A (PCR) Negative Influenza Type B (PCR) Negative RSV (PCR) Negative 04/21/23 04/21/23 04/22/23 17:26 18:20 00:01 WBC RBC Hgb Hct MCV MCH MCHC RDW Plt Count MPV Immature Gran % Neutrophils % Band Neutrophils % Lymphocytes % Atypical Lymphs % Monocytes % Eosinophils % Basophils % Nucleated RBC % Absolute Neutrophils Absolute Lymphocytes Absolute Monocytes Absolute Eosinophils Absolute Basophils RBC Morphology VBG Lactate 1.6 H Sodium Potassium Chloride Carbon Dioxide Anion Gap BUN Creatinine Est GFR (CKD-EPI 2020) Glucose Calcium Magnesium Total Bilirubin AST ALT Alkaline Phosphatase Total Protein Albumin TSH 2.06 Urine Color Urine Clarity Urine pH Ur Specific [place] Urine Protein Urine Ketones Urine Blood Urine Nitrite Urine Bilirubin Urine Urobilinogen Ur Leukocyte Esterase Urine RBC Urine WBC Ur Epithelial Cells Urine Crystals Urine Bacteria Urine Mucus Ur Culture Indicated? Urine Glucose Stl C.difficile Tox PCR Cancelled COVID-19 Source SARS-CoV-2 (PCR) Influenza Type A (PCR) Influenza Type B (PCR) RSV (PCR) 04/22/23 06:48 WBC 15.74 H RBC 4.18 L Hgb 13.6 Hct 41.0 MCV 98 H MCH 32.5 MCHC 33.2 RDW 14.2 H Plt Count 199 MPV 9.6 Immature Gran % Neutrophils % Band Neutrophils % Lymphocytes % Atypical Lymphs % Monocytes % Eosinophils % Basophils % Nucleated RBC % Absolute Neutrophils Absolute Lymphocytes Absolute Monocytes Absolute Eosinophils Absolute Basophils RBC Morphology VBG Lactate 1.2 Sodium 142 Potassium 3.5 Chloride 105 Carbon Dioxide 25.8 Anion Gap 11.2 H BUN 26 H Creatinine 0.9 Est GFR (CKD-EPI 2020) 87.96 Glucose 124 H Calcium 9.3 Magnesium 2.3 Total Bilirubin 0.7 AST 43 H ALT 33 Alkaline Phosphatase 74 Total Protein 7.3 Albumin 3.4 TSH Urine Color Urine Clarity Urine pH Ur Specific [place] Urine Protein Urine Ketones Urine Blood Urine Nitrite Urine Bilirubin Urine Urobilinogen Ur Leukocyte Esterase Urine RBC Urine WBC Ur Epithelial Cells Urine Crystals Urine Bacteria Urine Mucus Ur Culture Indicated? Urine Glucose Stl C.difficile Tox PCR COVID-19 Source SARS-CoV-2 (PCR) Influenza Type A (PCR) Influenza Type B (PCR) RSV (PCR) Time Spent with Patient Time Spent with Patient: >50 minutes Time was spent: preparing to see the patient(eg.review tests), obtaining and/or reviewing separately otained hiistory, ordering medications,tests, procedures, referring, communicating with other health anesthesiologist and critical care, indepentently interpreting results, counseling the patient and care coordination
[2023-04-22 12:08] LABS: Lab Add On Test DONE
--- NOTE | 2023-04-22 12:28 | POCUS_ITS ---
Pocus Exam Limited Cardiac Exam DATE OF EXAM: 04/22/23 TIME OF EXAM: 11:11 PROVIDER THAT PERFORMED THE STUDY: Pablo Brooks REASON FOR EXAM: Hypotension VISUALIZED STRUCTURES: four chambers, LVOT, Interventricular septum and IVC VIEW OBTAINED: Apical 4-Chamber, Parasternal long-axis and Parasternal short- axis PERTINENT FINDINGS/IMPRESSION: IVC inspiratory collapsability and RV dilation; No LV dysfunction, No pericardial effusion, No plethoric IVC and No RV dysfunction INCIDENTAL FINDINGS: Normal LV and RV sysolic function w/ LVH and mildly enlarged RV but w/ out evidence of cor pulmonale, i.e. no RV strain. IVC is small 1 cm and over 50% inspiratory collapsability, the E/e' is low 4.3 consistent w/ low left sided filling pressures. These findings are consistent/ with hypvolemia or sepsis. Subxiphoid views of LV and RV were limited d/t dressings around his feeding tube which sits high in the epigastric/subxiphoid region. Exam complete
[2023-04-22 12:45] LABS: Procalcitonin 0.4 ng/mL
[2023-04-22] MEDS: Lactated Ringers 500 ML 1000 ML IV (13:14)
[2023-04-22] MEDS: Lactated Ringers 1,000 ML 150 ML IV (13:45)
[2023-04-22] MEDS: cefTRIAXone 2 GM/50 ML BAG IVPB (14:36)
[2023-04-22] MEDS: Normal Saline Flush 10 ML SYR IVP ×2 (14:39→22:55)
--- NOTE | 2023-04-22 15:00 | W.SPSTE ---
Date of service: 04/22/23 Time of Service: 14:50 Subjective Clinical (Bedside) Swallow Evaluation Speech Language Pathology Referred by: Dr. Grant Referral Type: Clinical Swallow Evaluation Reason for Referral/HPI: Patient is a 78 y/o M with remote history of total laryngectomy and chronic use of g-tube, with tracheostomy. By chart review he did have a time where he used tracheo-esophageal prosthesis for voicing but this was removed and puncture has closed. Unsure if this was due to leakage/aspiration or if he was unable to care for it properly or had too many complications. 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 Per his , he was previously taking 3 cartons of nutren daily, but in the past year with weight loss, nutrition at [facility] advised increase to 4 cans of formula. At this time he and his report primarily taking PO for comfort/pleasure. He sips water throughout the day, and eats things like yogurt, pudding, etc. On occasion he will eat small bites of cakes and pastries which, provided his stricture is well managed, are generally tolerated well. When stricture is poorly managed and he is awaiting re-dilation, they report severe difficulty with swallowing, with even liquids being regurgitated and spit out. At home, his meds are crushed and given via G-Tube, except for one which cannot be crushed, which he is able to take by mouth in the mornings. Typically he is able to get most of his hydration in by mouth, however, suspect he may be taking inadequate amounts of fluids by mouth. INVENTORY ASSISTANT IMPRESSIONS & RECOMMENDATIONS: Esophageal dysphagia which is currently at baseline/optimized function having completed dilation procedure 1 week ago. No risk of prandial aspiration in setting of s/p total laryngectomy status. Nutrition consult will be useful to determine caloric needs via enteral route. Nursing is encouraged to offer puree liquids and purees throughout the day for supplementation and comfort, per patient's preferences. Provided recommendations to patient to improve intelligibility with electrolarynx as follows. Care providers are encouraged to request/remind that he uses these strategies: Slow rate Pause between words Exaggerate mouth movements for over-enunciation FURTHER INVENTORY ASSISTANT SERVICES: No further INVENTORY ASSISTANT services indicated while inpatient. Upon Discharge, he may require increased surveillance from nutrition and GI team, not likely to benefit from further INVENTORY ASSISTANT services at this time unless he is interested in treatment to address communication. Defer to physical/occupational therapy recommendations for discharge location. SUBJECTIVE: Patient received awake, lethargic, reluctant to participate but ultimately agreeable to a limited/abbreviated evaluation in setting of fatigue. Able to sit upright for limited evaluation and PO trials. Baseline Swallow Function: Dysphagia (esophgeal) fluctuates with dilation/stricture management, currently at a good baseline due to recent dilation. OBJECTIVE: Communication: Patient uses electrolarynx. He does appear with good placement for good quality resonance but speaks quickly and often with low intelligibility. Often defers to his to provide responses. Oral Mechanism Examination: Patient unwilling to participate in cranial nerve exam. Noting edentulous status, dry mucosa, fair/poor oral care. PO Trials Assessed: IDDSI 0 Thin Liquids x2 sips (patient refuses further trials) Oral Phase Findings: WFL for limited sips of thin liquid via straw. Pharyngeal Phase Findings: Denies stasis. ? Esophageal Phase Findings: Denies stasis. No regurgitation. ??? Recommendations: ? Tube Feedings per nutrition recommendations. PO may be given for comfort/supplemental nutrition/hydration as follows: SOLIDS: 4-Pureed Solids or 3-Liquidised Solids LIQUIDS: 0-Thin Liquids MEDICATIONS: Crushed as able via enteral route, or whole with thin liquid vs puree, as tolerated. RISK MANAGEMENT: Upright or inclined for all PO intake. Oral hygiene BID/2x per day for comfort and mucosal stimulation Level of Assistance/Supervision: Set-up assistance as needed Strategies/Adaptations/Assistive Equipment: Slow rate of intake Alternate intake of liquids and solids Small+frequent meals throughout day ?Posture/Positioning Needs: Maintain upright position at least 30 minutes after meals Education Provided to: Nursing, Patient, Family Topics Addressed: anatomy/physiology of normal swallow vs swallow s/p laryngectomy, reflux/esophageal precautions, diet and strategy recommendations. PLAN: No further INVENTORY ASSISTANT services indicated at this time. Please re-consult as needed. INVENTORY ASSISTANT CPT Code: 78498 Clinical Swallowing Evaluation Time spent: 20 min 14:50-15:10 Coding CPT Codes EVALUATE SWALLOWING FUNCTION - 09512 ([id number]) Additional Codes Date of Service ([id number]) Date of service: 04/22/23
--- NOTE | 2023-04-22 15:46 | CHAPLAIN ---
Pineda and I know each other from previous admissions. His friend Kiara was with him when I visited. Pineda asked that I let Dr. Brooks know that Kiara would like to speak with him. I let Pineda's nurse, Kalyan know that, and Kalyan had already told Dr. Brooks. Kiara said that Pineda will be here for a while. I'll continue to visit.
--- NOTE | 2023-04-22 16:09 | NUR.NOTE ---
Nursing Note: Awaiting diet and tube feed orders. 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
[2023-04-22 16:15] LABS: MRSA PCR Negative (Negative)
--- NOTE | 2023-04-22 19:43 | W.EVENT ---
Date of service: 04/22/23 Time of Service: 19:43 Event Note: Patient requesting to go home. Staff note patient seems somewhat confused, seems to think thee may someone --patient, staff -- threatening him verbally, telling him he is going to . Staff report that partner stated that patient tends to get confused at night. On exam VSS, engages appropriately in conversation, does reiterate that he feels somewhat ill at ease. I advise that we continue his treatment, and have asked staff to contact partner to update. A/P: I think this is probably a little . Will trial single dose Seroquel 25 (note warning about QT prolonging interaction with Fluconazole. QTc WNL at 451.) Time Spent with Patient Time spent in critical care(minutes): 20 Time Spent Included: Coordination of care, Chart review, Documenting critically ill care and Discussing critically ill care with other medical staff
[2023-04-22] MEDS: Rosuvastatin 20 MG TAB 40 MG UD (19:53)
[2023-04-22] MEDS: QUEtiapine 25 MG TAB PO (19:53)
[2023-04-22] MEDS: Acetylcysteine 20% *ORAL/INHALED* 6000 MG/30 ML VIAL 400 MG UPD (20:40)
[2023-04-22] MEDS: Sodium Chloride 0.9% for Inhalation 3 ML VIAL UPD (20:45)
[2023-04-23 03:00] VITALS: BP 124/74; PULSE 80; RESP 17; TEMP 36.7; O2SAT 96
[2023-04-23 09:18] VITALS: BP 98/82; PULSE 77; RESP 18; TEMP 36; O2SAT 96
[2023-04-23] MEDS: Acetylcysteine 20% *ORAL/INHALED* 6000 MG/30 ML VIAL 400 MG UPD (09:35)
[2023-04-23 09:36] VITALS: PULSE 74; RESP 16; O2SAT 97
[2023-04-23] MEDS: Sodium Chloride 0.9% for Inhalation 3 ML VIAL UPD (09:36)
[2023-04-23] MEDS: Albuterol/Ipratropium 3 ML UPD VIAL UPD (09:38)
--- NOTE | 2023-04-23 09:47 | RESPIRATORY ---
RT Assessment Start: 04/22/23 16:28 Freq: .q shift and prn Status: Active Protocol: Document 04/23/23 09:41 RT.[email or web address] (Rec: 04/23/23 09:47 RT.[email or web address] [id number]) RT Assessment Pulmonary History Pulmonary History COPD,Other Smoking History Smoking/Tobacco Use Status Former Tobacco Use Tobacco: How many years used 20 Quit Date 04/23/13 Tobacco Type cigarettes Packs per Day 1 Cigarettes per Day 20 Years smoked 20 Smoking packs per day 1 OXYGEN HISTORY: Supplemental O2 At Rest 4 With Exertion 4 CPAP Can use home machine N/A BIPAP Can you home machine N/A Trilogy/AVAPS Can use home machine N/A DME/Compliance DME Ester Current Respiratory Symptoms Current Respiratory Symptoms Sputum production Activity Activity Level up and independent Respiratory Breath Sounds Breath Sounds Clear Response No change Pulse Rate <100 Respiratory Rate <18 Shortness of Breath None Respiratory Therapy Score Total 0 Assessment and Plan RT Treatment Protocol No RT treatment protocols required at this time, re- consult if change Note Pt is at baseline-continue home regimen. Pt uses vest therapy at home with nebulizers
[2023-04-23 09:48] VITALS: RESP 16
--- NOTE | 2023-04-23 09:49 | PDOC.CMPRO ---
Date of service: 04/23/23 Time of Service: 09:49 Care Management Progress Note Progress Note Text Progress Note Text: S/O: A: Pineda is a 78 year old man admitted on 04/21/23 with a UYI and pulmonary emboli P: Anticipate Chan will be discharged home with no new services. He will follow up with his community providers and plan of care and transport with family. CM will follow and continue to assess for discharge planning concerns.
[2023-04-23] MEDS: Fluconazole 100 MG TAB 200 MG PO (09:58)
[2023-04-23] MEDS: amLODIPine 5 MG TAB PO (09:58)
[2023-04-23] MEDS: Ferrous Sulfate 325 MG TAB PO (09:59)
[2023-04-23] MEDS: Tamsulosin 0.4 MG CAPCR PO (09:59)
[2023-04-23] MEDS: Aspirin E.C. 81 MG TABEC PO (09:59)
[2023-04-23] MEDS: Acetylcysteine 600 MG CAP PO (09:59)
[2023-04-23] MEDS: Sertraline 50 MG TAB PO (09:59)
[2023-04-23] MEDS: Gabapentin 100 MG CAP 200 MG PO (09:59)
[2023-04-23] MEDS: Finasteride 5 MG TAB PO (09:59)
[2023-04-23] MEDS: rOPINIRole 0.5 MG TAB 1 MG PO (09:59)
[2023-04-23 12:36] LABS: Campylobacter PCR Negative (Negative); Salmonella PCR Negative (Negative); Shiga Toxin PCR Negative (Negative); Shigella/Enteroinvasive Ecoli Negative (Negative)
--- NOTE | 2023-04-23 12:46 | PT.INIE ---
PT Notes Visit Reasons: Pulmonary Emboli, UTI complicated Physical Therapy Inpatient Initial Evaluation Date: 04/23/23 Referring Doctor: Jhonny Grant MD PT Orders: PT CONSULT: Extended Stay Weakness Precautions: Fall. Standard. Activity as tolerated. PEG tube in place, caution needed with gait belt placement. Patient Profile/Admitting Diagnosis: Patient is a 78-year old male patient admitted for management of multiple subsequent emboli, lactic acidosis, leukocytosis, UTI, and history of laryngeal cancer. PMHX: All Active Problems Acidosis, lactic (Acute) Leukocytosis (leucocytosis) (Acute) UTI (urinary tract infection) (Acute) Multiple subsegmental pulmonary emboli without acute cor pulmonale (Acute) Mild shortness of breath (Acute) Malaise and fatigue (Acute) C1 cervical fracture (Acute) Gastrostomy tube dysfunction (Acute) Advance care planning (Acute) Encounter for hospice care discussion (Acute) Unintentional weight loss of 10% body weight within 6 months (Acute) Dysuria (Acute) Malfunctioning jejunostomy tube (Acute) Need for follow-up by marriage and family social worker (Acute) Dysphagia (Acute) Weakness (Acute) Impaired instrumental activities of daily living (Acute) Plantar fascial fibromatosis (Acute) Feeding tube dysfunction (Acute) Sensorineural hearing loss (SNHL) of both ears (Acute) Otalgia of right ear (Acute) Neck pain on right side (Acute) Neck pain on right side (Acute) Full code status (Acute) Need for home health care (Acute) MRSA pneumonia (Acute) pt likely colonized Occlusion of right vertebral artery (Acute) Hypoxemia (Acute) Complication of feeding tube (Acute) Peripheral neuropathy (Acute 02/21/15) PAOD (peripheral arterial occlusive disease) (Acute) COPD (chronic obstructive pulmonary disease) (Chronic) G tube feedings (Acute) 20F 3.0cm 11/30/22. Routine change every 4 months. 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 Hypertension Tobacco use COPD (chronic obstructive pulmonary disease) Post herpetic neuralgia Hypothyroidism Hyperlipemia Depression Anxiety Anemia Conjunctivitis, chronic Surgical History S/P AAA (abdominal aortic aneurysm) repair Status post laryngectomy History of esophagogastroduodenoscopy (EGD) (~08/10/19) Daron Casper APRN @ [facility] [place]: hiatal hernia, GERD, Reyes's esophagitis, neuromuscular dysfunctionHistory of laryngectomy Status post cardiac catheterization Status post cataract extraction and insertion of intraocular lens of right eye (07/12/18) History of tarsorrhaphy Status post cataract extraction and insertion of intraocular lens of left eye (04/30/12) 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 Independent indoor ambulator. Ocassionally uses FWW outdoors. 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 Subjective: Denies chest pain, headache, and lightheadedness. Objective: General Observation: In NAD. MEDICAL EQUIPMENT REPAIR TECHNICIAN Radha present in room assisting patient with toileting. Mental Status: A&O x3 Pain: Denies Vitals: Closely monitored by nursing staff ROM: Right Upper Extremity: Shoulder Flexion WFL. Shoulder abduction WFL. Elbow flexion WFL. Wrist flexion WFL. Opening and closing of hand WFL. Left Upper Extremity: Shoulder Flexion 40 deg. Shoulder abduction 40d eg. Elbow flexion WFL. Wrist flexion WFL. Opening and closing of hand WFL. Right Lower Extremity: Hip flexion WFL. Hip abduction WFL. Knee flexion WFL. Ankle dorsiflexion WFL. Ankle plantarflexion WFL. Left Lower Extremity: Hip flexion WFL. Hip abduction WFL. Knee flexion WFL. Ankle dorsiflexion WFL. Ankle plantarflexion WFL. Strength: Right Upper Extremity: Shoulder flexors 5/5. Shoulder abductors 5/5. Elbow flexors 5/5. Elbow extensors 5/5. Principal Systems Engineer strong. Left Upper Extremity: Shoulder flexors 2/5. Shoulder abductors 2/5. Elbow flexors 3/5. Elbow extensors 3/5. Weak general house worker. Right Lower Extremity: Hip flexors 5/5. Hip abductors 5/5. Knee flexors 5/5. Knee extensors 5/5. Ankle dorsiflexors 5/5. Ankle plantarflexors 5/5. Left Lower Extremity: Hip flexors 5/5. Hip abductors 5/5. Knee flexors 5/5. Knee extensors 5/5. Ankle dorsiflexors 5/5. Ankle plantarflexors 5/5. Sensation: Intact as to pain and pressure on bilateral lower extremities. Bed Mobility/Transfers: Rolling: independent Supine to sit: independent Sit to supine: independent Sit to stand: supervision for line management only Stand to sit: supervision for line management only Bed to chair: supervision for line management only Chair to bed: supervision for line management only Gait: Facilitated safe and correct performance of level surface ambulation using no AD but with occasional holding onto IV pole for support, covered a distance of 250 feet with minimal shortness of breath. Balance: Static Sitting: Normal Dynamic Sitting: Normal Static Standing: Good Dynamic Standing: Good 4 stage balance test Time completed FT 10 Semi-tandem NT Tandem NT SLS NT Special Tests: Mobility Limitations Standardized Measure [facility] AM-PAC 6 clicks Basic Mobility Inpatient Short Form: Raw Score: 23 CMS Score: 11% 30-second chair rise: 5x Informed Consent/Education: Patient instructed in purpose of PT consult and plan of care. Assessment: Patient presents with clinical signs and symptoms consistent with current/admitting diagnoses that have resulted to mobility limitations, gait instability, generalized weakness, and impairment of motor control as demonstrated by the following impairment level findings: 1. Decreased strength to major muscle groups 2. Impaired sitting/standing balance 3. Impaired activity tolerance 4. Limitation of joint range of motion in LUE Impairments are contributing to the following functional limitations: 2. Increase completion time for mobility ADL performance 3. Increased fall risk 4. Inability to negotiate steps alone safely Patient is assessed as a moderate complexity based on the following: History: 76 year old male identifying person with impairment level findings, functional limitations, and past medical history as indicated above Examination: Demonstrable impairment in strength, balance, and mobility level with underlying impairments and functional limitations as documented above Presentation: Evolving Decision Making: Moderate complexity Goals: Goals x1 week 1. Bed-Chair: independent 2. Chair-Bed: independent 3. Independent gait on level surface with use of least restrictive device for at least 50 feet without report of pain nor dyspnea 4. Independent stair negotiation while holding onto bilateral rails for at least 10 steps without report of pain nor dyspnea 5. Independent with home exercise program 6. Good static and dynamic standing balance/tolerance Plan of Care/Treatment Plan: 1-2x/day, 7 days/week x 1 week. Plan of care has been reviewed with the MICROSOFT DYNAMICS DEVELOPER providing the service under Physical Therapy direction. Initiate Physical Therapy intervention for strengthening, transfers, gait, stairs, balance training, and use of assistive device. DISCHARGE RECOMMENDATIONS: Home with PT services: Patient will benefit from home health PT services in order to progress mobility level using least restrictive assistive ambulatory device, assess home safety, identify additional equipment needs, and establish a functional maintenance program that will increase ability of patient to remain at home. TREATMENT CODE/TIME: 11223 x 22 minutes for 1 unit beginning at 8:25 AM. Thank you for the opportunity to participate in the care of this patient. Vanessa Brown PT, DPT, CLT [facility] [place], [place]
[2023-04-23 12:50] VITALS: BP 117/58; PULSE 81; RESP 20; TEMP 36.9; O2SAT 94
--- NOTE | 2023-04-23 14:06 | PGE_ITS ---
Date of Service Date of service: 04/23/23 Time of Service: 14:06 Assessment and Plan Assessment and plan (1) Multiple subsegmental pulmonary emboli without acute cor pulmonale: Status: Acute Assessment and plan: Chest CT showed a lot of motion artifact which limited evaluation of the subsegmental pulmonary arteries. However peripheral pulmonary embolus could not be entirely excluded by our radiologist. There is question of filling defect in the subsegmental arteries. He has pulmonary emphysema but no lung consolidation. Patient has been started on apixaban. He will be discharged home today on 10 mg twice a day for 7 days and then 5 mg twice daily for 3 months. (2) Acidosis, lactic: Status: Acute Assessment and plan: Secondary to dehydration. Lactic acidosis resolved with IV fluids overnight. (3) UTI (urinary tract infection): Status: Acute Assessment and plan: Blood cultures showed no growth. Initial urine culture demonstrates less than 10,000 colonies of mixed gram-positive vidhi. This point I will treat him with Fosfomycin and discharge him home. Qualifiers: Urinary tract infection type: site unspecified Hematuria presence: without hematuria Qualified Code(s): N39.0 - Urinary tract infection, site not specified (4) History of laryngeal cancer: (5) COPD (chronic obstructive pulmonary disease): Status: Chronic Assessment and plan: Continue home bronchodilator lung his home Qualifiers: COPD type: emphysema Emphysema type: panlobular Qualified Code(s): J43.1 - Panlobular emphysema (6) Hypothyroidism: Assessment and plan: Continue home dose of levothyroxine Qualifiers: Hypothyroidism type: acquired Qualified Code(s): E03.9 - Hypothyroidism, unspecified Subjective Subjective Interval history since last seen: Chan feels better he denies any shortness of breath or discomfort. Last night he had some sundowning and did require a dose of Seroquel. Per nursing his caregiver and significant other indicates that he will often do this at night at home as well. This morning he is alert and oriented and answering questions appropriately. He is desiring to return home. Exam Narrative Exam Narrative: Alert and oriented no acute distress. Lungs some scattered rhonchi that clear with coughing and deep breathing Heart is regular rate and rhythm Abdomen scaphoid nontender Extremities without edema Objective Last Vital Signs Temp 36.9 C 04/23/23 12:50 Pulse 81 04/23/23 12:50 Resp 20 04/23/23 12:50 BP 117/58 L 04/23/23 12:50 Pulse Ox 94 04/23/23 12:50 Laboratory Results - last 24 hr 04/22/23 04/22/23 04/23/23 12:10 14:14 08:30 Plt Count Cancelled Stool Campylobacter PCR Negative Stool Salmonella PCR Negative Stool Shigella PCR Negative Shiga Toxin (PCR) Negative MRSA (TEM-PCR) Negative Time Spent with Patient Time Spent with Patient: 25-34 minutes Time was spent: preparing to see the patient(eg.review tests), ordering medications,tests, procedures, referring, communicating with other health small animal caretaker, indepentently interpreting results, counseling the patient and care coordination
[2023-04-23] MEDS: Enoxaparin 60 MG/0.6 ML SYR 50 MG SC (14:23)
[2023-04-23] MEDS: cefTRIAXone 2 GM/50 ML BAG IVPB (14:24)
--- NOTE | 2023-04-23 15:34 | DSE_ITS ---
Date of service: 04/23/23 Time of Service: 15:34 DS: Diagnosis Discharge Diagnosis (1) Multiple subsegmental pulmonary emboli without acute cor pulmonale: Status: Acute (2) Acidosis, lactic: Status: Acute (3) UTI (urinary tract infection): Status: Acute (4) History of laryngeal cancer: (5) COPD (chronic obstructive pulmonary disease): Status: Chronic (6) Hypothyroidism: Discharge Plan Disposition Patient Disposition: Home W/Home Health Services Condition: Improving Discharge Details Reason For Visit: Pulmonary Emboli, UTI complicated Admit Date/Time: 04/21/23 23:14 Admit Provider: Jhonny Grant Attending Provider: Jhonny Grant Primary Care Provider: Nazia Chan Hospital Course Hospital Course: 78 yr old male w/ hx of laryngeal CA s/p remote laryngectomy and tracheostomy who is on PEG tube feedings who presented w/ chills, fatigue, malaise and increasing dyspnea. He has hx of prior pneumonia w/ MRSA and has been treated as outpatient w/ suppressive vancomycin aerosol treatments and Bactrim. Evaluation in the ED included labs that showed dehydration and lactic acidosis and CTA of chest was done that did not show pneumonia but bilateral subsegmental pulmonary emboli. This was a questionable diagnosis d/t motion artifact. He had a leukocytosis of 27, 000 and was pancultured.He had prior UTI which had been treated as outpatient. He was started on Rocephin and d/t recent urine culture showing Cassandra he was also started on Diflucan. Urine culture came back negative for bacterial UTI (<10,000 colonies of gram positive organisms). CTA did not show pneumonia. He was started on lovenox for the P.E. His lactic acidosis resolved w/ hydration and his blood cultures came back negative. He was subsequently taken off the Rocephin and given one time dose of Fosfomycin for potential UTI. He was hemodynamically stable and respiratory lee was stable for discharge. He was discharged on apixaban 10 mg bid x 7 days and then 5 mg bid x 3 months. An Rx for starter pack for first month of apixaban was sent to his pharmacy. 14 day course of Diflucan was prescribed for recent Candiduria. No further antibiotics were prescribed. Home Meds and New Rx's Prescriptions: New fluconazole 100 mg Tablet 200 mg feeding tube DAILY 14 Days Qty: 28 0RF Eliquis DVT-PE Treat 30D Start 5 mg (74 tabs) tablets,dose pack 5 mg PO ONCE Qty: 74 0RF Continued ropinirole 1 mg tablet 1 mg PO BID aspirin [Adult Aspirin Regimen] 81 mg tablet,delayed release (DR/EC) 81 mg PO DAILY acetaminophen [Tylenol Extra Strength] 500 mg tablet 1,000 mg PO BID PRN omeprazole 20 mg capsule,delayed release(DR/EC) 20 mg feeding tube BID Qty: 90 4RF acetylcysteine 100 mg/mL (10 %) solution 4 ml inhalation BID amlodipine 5 mg tablet 5 mg PO DAILY levothyroxine See Rx Instructions .ROUTE DIRECTED Rx Instructions: as directed; sertraline 50 mg tablet 50 mg PO DAILY Qty: 30 2RF Rx Instructions: decreased by PCP on 06/19/22 rosuvastatin 40 mg tablet 40 mg feeding tube HS Qty: 90 4RF ipratropium-albuterol 0.5 mg-3 mg(2.5 mg base)/3 mL solution for nebulization 3 ml IN QID PRN (Reason: shortness of breath or wheezing) Qty: 90 4RF Rx Instructions: increased dose/use treatment 4 times/day as needed NOT SENT polyethylene glycol 3350 [Miralax] 17 gram/dose powder 17 g PO DAILY PRN (Reason: constipation) Rx Instructions: 06/19/22 instructed by PCP to take 1/2 cap daily, may reduce to half cap three times per week if daily is too much acetylcysteine [NAC] 600 mg capsule 600 mg PO BID Qty: 60 12RF Vancomycin 250 mg NEB BID 28 Days Qty: 280 12RF Rx Instructions: 250mg vancomycin in 5 cc of sterile water for nebulization To be given every other month for 28 consecutive days gabapentin 100 mg capsule 200 mg PO BID Qty: 360 3RF sulfamethoxazole-trimethoprim 200-40 mg/5 mL suspension 5 ml PO DAILY 28 Days Qty: 473 9RF Rx Instructions: Take daily for 4 weeks, then off for 4 weeks, etc nystatin 100,000 unit/gram powder 1 applic topical BID Qty: 60 12RF finasteride 5 mg tablet 5 mg PO DAILY Qty: 90 3RF tamsulosin [Flomax] 0.4 mg capsule 0.4 mg PO DAILY Qty: 90 3RF melatonin 3 MG tablet 6 mg PO HS Align 4 mg Capsule 4 mg PO QPM ferrous sulfate [FeroSul] 325 mg (65 mg iron) tablet 325 mg PO DAILY Patient Comments: TAKE 1 TABLET VIA FEEDING TUBE ONCE DAILY Discontinued sulfamethoxazole-trimethoprim [Bactrim] 400-80 mg tablet 1 tab PO DAILY Qty: 30 7RF Rx Instructions: Take 1 tab every day, every other month. Use on the same schedule has the nebulized vancomycin. Discharge Instructions Instructions: Pulmonary Embolism (DC), Yeast Infection (GEN) Additional Instructions: You were found to have small bilateral subsegmental pulmonary emboli and you have been started on a blood thinner, Eliquis (apixaban) which you will need to take for the next 3 months. You also were found to have a UTI and have been growing Cassandra in your urine. You have been started on an antifungal Diflucan which you should take for the next 14 days. Resume all of your other home medications including your breathing treatments. follow up w/ your PCP next week. Stand Alone Forms: Nursing Discharge Form Referrals: Nazia Chan [Primary Care Provider] - (Please call your PCP to schedule a follow up appointment IF you do not hear from them ) Activity:: Activity as Tolerated Equipment/Supplies:: No Equipment Needed Diet:: tube feeds as per home schedule Discharge Orders Discharge Orders: Discharge Order (Routine); Ordered 04/23/23 Ordered By: Pablo Brooks Discharge Data Discharge Date/Time-TO BE ENTERED AT DEPARTURE: 04/23/23 17:03 DS: Summary Time Spent with Patient providing and/or coordinating discharge services: Greater than 30 minutes Specific discharge activities: Interview/exam of patient; review of discharge instructions, completion of prescriptions/discharge instructions; discussion w/ nursing and CM; documentation of hospital visit Status at Discharge Functional status at discharge: uses cane/walker Overall status at discharge: patient is back to baseline Mental Status: mental status grossly normal Speech and Movement: speech and movement normal Mood: congruent mood Affect: normal affect Exam Narrative Exam Narrative: Alert and oriented no acute distress. Lungs some scattered rhonchi that clear with coughing and deep breathing Heart is regular rate and rhythm Abdomen scaphoid nontender Extremities without edema Psych Mental Status: mental status grossly normal Speech and Movement: speech and movement normal Mood: congruent mood Affect: normal affect DS: Data Vitals/I&O Vitals and I&O: Vital Signs Temperature 36.9 C 04/23/23 12:50 Temperature Source Tympanic 04/23/23 12:50 Pulse 81 04/23/23 12:50 Pulse Rhythm Regular 04/23/23 09:00 Pulse 87 04/21/23 23:17 Respiratory Rate 20 04/23/23 12:50 Respiratory Effort Normal, Non-Labored 04/23/23 09:00 Respiratory Depth Normal 04/23/23 09:00 Respiratory Pattern Normal 04/23/23 09:00 Blood Pressure 117/58 L 04/23/23 12:50 Blood Pressure Mean 102 04/21/23 23:17 Blood Pressure Position Sitting 04/21/23 14:23 Pulse Oximetry 94 04/23/23 12:50 Oxygen Delivery Method Room Air 04/23/23 12:50 Oxygen Flow Rate 0 04/23/23 12:50 Fraction of Inspired Oxygen (FIO2) 30 04/23/23 02:58 Pain Level 0 04/23/23 12:50 Comment 31% RT is monitoring 04/22/23 19:35 Intake & Output 04/22/23 04/23/23 04/23/23 23:59 11:59 23:59 Intake Total 3224.5 / 3274.5 500 / 500 Output Total 700 / 1200 650 / 650 Balance 2524.5 / 2074.5 -150 / -150 Intake: IV 2537.5 / 2587.5 Oral 687 / 687 320 / 320 Intake, Tube Feeding Amount 180 / 180 Output: Urine 700 / 1200 650 / 650 Other: Urine Color Yellow Yellow Urine Appearance Clear Clear Urine Odor None None Comment mixed with stool. Stool Size Small Stool Characteristics Soft Voiding Methods Bedside Commode Toilet Data Completed and Pending Labs on day of discharge: Labs from last 24 hours 04/23/23 04/22/23 04/22/23 08:30 14:14 12:10 Plt Count Cancelled Stool Campylobacter PCR Negative Stool Salmonella PCR Negative Stool Shigella PCR Negative Shiga Toxin (PCR) Negative MRSA (TEM-PCR) Negative Preliminary micro results at discharge 04/21/23 14:50 Blood Culture - Preliminary Blood NO GROWTH 24 HOURS 04/21/23 14:44 Blood Culture - Preliminary Blood NO GROWTH 24 HOURS PFSH All Active Problems Ambulatory dysfunction (Acute) Acidosis, lactic (Acute) Leukocytosis (leucocytosis) (Acute) UTI (urinary tract infection) (Acute) Multiple subsegmental pulmonary emboli without acute cor pulmonale (Acute) Mild shortness of breath (Acute) Malaise and fatigue (Acute) C1 cervical fracture (Acute) Gastrostomy tube dysfunction (Acute) Advance care planning (Acute) Encounter for hospice care discussion (Acute) Unintentional weight loss of 10% body weight within 6 months (Acute) Dysuria (Acute) Malfunctioning jejunostomy tube (Acute) Need for follow-up by outreach and education social worker (Acute) Dysphagia (Acute) Weakness (Acute) Impaired instrumental activities of daily living (Acute) Plantar fascial fibromatosis (Acute) Feeding tube dysfunction (Acute) Sensorineural hearing loss (SNHL) of both ears (Acute) Otalgia of right ear (Acute) Neck pain on right side (Acute) Neck pain on right side (Acute) Full code status (Acute) Need for home health care (Acute) MRSA pneumonia (Acute) pt likely colonized Occlusion of right vertebral artery (Acute) Hypoxemia (Acute) Complication of feeding tube (Acute) Peripheral neuropathy (Acute 02/21/15) PAOD (peripheral arterial occlusive disease) (Acute) COPD (chronic obstructive pulmonary disease) (Chronic) G tube feedings (Acute) 20F 3.0cm 11/30/22. Routine change every 4 months. 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 Hypertension Tobacco use COPD (chronic obstructive pulmonary disease) Post herpetic neuralgia Hypothyroidism Hyperlipemia Depression Anxiety Anemia Conjunctivitis, chronic Surgical History S/P AAA (abdominal aortic aneurysm) repair Status post laryngectomy History of esophagogastroduodenoscopy (EGD) (~08/10/19) Daron Casper APRN [place] [facility] hiatal hernia, GERD, Reyes's esophagitis, neuromuscular dysfunction History of laryngectomy Status post cardiac catheterization Status post cataract extraction and insertion of intraocular lens of right eye (07/12/18) History of tarsorrhaphy Status post cataract extraction and insertion of intraocular lens of left eye (04/30/12) 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) Sin-mullins button placed by Dr Elia Mcdonald, [facility] PROCEDURES RT/LEFT HEART CARD CATH COMPLETE LARYNGECTOMY Esophagoplasty EGD - MAC (07/06/17) Colonoscopy - MAC (12/22/16) History of radical laryngectomy Family History Nephew Throat cancer Maternal Cousin Cancer Social History Smoking/Tobacco Use Status: Former Tobacco Use Quit Date: 04/23/13 Tobacco: How many years used: 20 Smoking risk assessment performed?: Yes Alcohol Intake: never Drug use: Never Substance use type: does not use Housing: apartment Current gender identity: male Do you feel safe at home: Yes Do you feel safe in your relationship?: Yes Time Spent with Patient Time Spent with Patient: <45 minutes Time was spent: preparing to see the patient(eg.review tests), ordering medications,tests, procedures, referring, communicating with other health hiv/aids care nurse, indepentently interpreting results, counseling the patient and care coordination
--- NOTE | 2023-04-23 15:35 | PDOC.HHF2F_ITS ---
Home Health Referral Home Health Orders Clinical synopsis of why skilled professionals are needed: Patient was admitted w/ increasing dyspnea, fatigue, malaise and was found to have a lactic acidosis and was dehydrated and workup revealed him to have bilateral subsegmental pulmonary emboli. He was treated w/ Ceftriaxone and Diflucan (based on most recent urine culture growing Cassandra albicans) and CTA of his chest did not show pneumonia but demonstrated the PE. He was begun on lovenox and treated w/ the Ceftriaxone and Diflucan and given iv fluids which corrected his lactic acidosis. His blood cultures came back no growth, urine grew <10,000 colonies of mixed gram positive vidhi. The Rocephin was stopped but the Diflucan was continued based on prior urine culture. He was given one time dose of Fosfomycin for UTI. Lovenox was stopped and he was started on Apixaban 10 mg bid x 7 days then he is to continue apixaban 5 mg bid. Patient was evaluated by P.T. and d/t his general weakness and deconditioning was deemed to need P.T. services for continued home treatment to improved his gait, strength, balance and to improve his ADL performance. Nursing is requested to monitor medication compliance and his clinical response to treatment. Medical diagnosis necessitation home health referral: bilateral subsegmental pulmonary emboli, yeast UTI, dehydration, gait instability, generalized weakness and decreased ADL performance Registered Nurse: Check all that apply Instruct on new or changed medication(s)/assess compliance: Ordered Instruct on ostomy care: Ordered Assess for exacerbation of medical condition, instruct patient/caregivers on signs and symptoms to report for early detection: Ordered Assess wound for signs and symptoms of infection, instruct on wound care and/or provide skilled wound care consisting of: monitor for recurrent infections. patient has tracheostomy from prior laryngeal cancer and hx of MRSA pneumonia (none seen this admit), has PEG tube for feedings Physical Therapist: Check all that apply Increase strength & endurance for safe mobility at home: Ordered To design/establish home maintenance program: Ordered Fall reduction therapy program for patient with history of frequent falls: [facility] Home safety evaluation and teaching/gait training including stair management (if applicable): Ordered Better Breathing Program: Ordered Occupational Therapist: Evaluate and treat for patient unable to perform ADL/IADL/self-care: Ordered Manager Of Production: Assist with community resources: Ordered Home Bound Status Requires the aid of supportive device (check all that apply): Kennedy Describe why leaving home would require a considerable and taxing effort: Requires frequent rest periods, Confusion and Safety Concerns: describe (high risk of falls) Encounter Date and Reason: I certify that a FTF encounter for this patient was performed on April 23, 2023 and that such encounter was related to the primary reason the patient requires home health services. The encounter was conducted in the following manner: * By me as the certifying physician, MEDICAID BILLING CLERK, [place] or * By an inpatient physician, MEDICAID BILLING CLERK or PA during an inpatient stay who communicated findings to me, Certification And Authentication I certify that I composed the above information based on my clinical judgment relating to this patient's medical condition and, if applicable, clinical findings communicated to me by the NPP or inpatient physician who performed the FTF encounter. Name of Provider that will be monitoring home health services: Nazia Chan
[2023-04-23] MEDS: Fosfomycin Tromethamine 3 GM PACKET PO (16:33)
--- NOTE | 2023-04-23 16:44 | PDOC.CMDIS ---
Date of service: 04/23/23 Time of Service: 16:44 LACE Index Scoring Tool Questions: Length of Stay (in days): 2 Was the patient admitted via the E.D.?: Yes Comorbidities: Chronic Pulmonary Disease and Any Tumor E.D. Visits: 3 Answers: Total Score: 13 Risk of Readmission: High Risk Care Management Discharge Plan Reason for Hospitalization: Pulmonary emboli, UTI Discharge Plan: Chan will be discharged home with new home health PT services. He will follow up with his community providers and plan of care and transport with family. Patient/Family Education Needs: Review of discharge instructions, limitations, follow up plan, discuss Ask Me Three Services Needed at Discharge: Home Health Care Services
== END 2023-04-23 17:03 | disposition home health service (06) | DRG 176 ==
LOC: ER 23:38 → MS 04-22 00:18
PROVIDERS: Internal Medicine; Admitting Provider Family Medicine; Emergency Provider Emergency Medicine; PCP Physician Assistant Medical; Visit Provider Family Medicine
DX: I26.94 Multiple subsegmental thrombotic pulmonary emboli without acute cor pulmonale (principal); E87.21 Acute metabolic acidosis; J96.11 Chronic respiratory failure with hypoxia; B37.49 Other urogenital candidiasis; Z68.1 Body mass index [BMI] 19.9 or less, adult; Z85.21 Personal history of malignant neoplasm of larynx; E03.9 Hypothyroidism, unspecified; Z90.02 Acquired absence of larynx; R63.4 Abnormal weight loss; Z99.81 Dependence on supplemental oxygen; H90.3 Sensorineural hearing loss, bilateral; R53.81 Other malaise; R53.1 Weakness; M54.2 Cervicalgia; G62.9 Polyneuropathy, unspecified; I25.10 Atherosclerotic heart disease of native coronary artery without angina pectoris; G25.81 Restless legs syndrome; R91.1 Solitary pulmonary nodule; I10 Essential (primary) hypertension; E78.5 Hyperlipidemia, unspecified; Z87.891 Personal history of nicotine dependence; F10.21 Alcohol dependence, in remission; F32.A Depression, unspecified; N40.1 Benign prostatic hyperplasia with lower urinary tract symptoms; F41.9 Anxiety disorder, unspecified; D64.9 Anemia, unspecified; I95.9 Hypotension, unspecified; D72.828 Other elevated white blood cell count; J43.1 Panlobular emphysema; E86.0 Dehydration; Z93.4 Other artificial openings of gastrointestinal tract status
CPT/HCPCS: 00123; 36415; 71275; 80048; 80053; 84145; 85027; 87040; 87493; 87505; 87637; 87641; 92610; 93308; 96365; 96366; 96367; 96368; 96372; 96375; 96376; 97162; 99285; 71045; 81003; 81015; 83605; 83735; 84443; 85025; 85049; 87086; 93306; 94640; 94760; 99223; 99233; 99239; J0131; J1450; J1650; J2270; J3490; J7608; J7620

== ENCOUNTER 2023-04-29 05:17 | Emergency (ER) | payer MEDICARE, MEDICAID, SELFPAY ==
[2023-04-29 05:20] VITALS: BP 134/116; PULSE 69; RESP 16; TEMP 36.5; O2SAT 100
--- NOTE | 2023-04-29 05:37 | ED.GENADUL_ITS ---
Discharge Plan Disposition Patient Disposition: Home Discharge Details Chief Complaint: GenMedical Clinical Impression: Gastrostomy tube dysfunction Primary Care Provider: Nazia Chan ED Provider: Francisco Lindsey Home Meds and New Rx's Prescriptions: No Action ropinirole 1 mg tablet 1 mg PO BID aspirin [Adult Aspirin Regimen] 81 mg tablet,delayed release (DR/EC) 81 mg PO DAILY acetaminophen [Tylenol Extra Strength] 500 mg tablet 1,000 mg PO BID PRN omeprazole 20 mg capsule,delayed release(DR/EC) 20 mg feeding tube BID Qty: 90 4RF acetylcysteine 100 mg/mL (10 %) solution 4 ml inhalation BID amlodipine 5 mg tablet 5 mg PO DAILY levothyroxine See Rx Instructions .ROUTE DIRECTED Rx Instructions: as directed; sertraline 50 mg tablet 50 mg PO DAILY Qty: 30 2RF Rx Instructions: decreased by PCP on 06/19/22 rosuvastatin 40 mg tablet 40 mg feeding tube HS Qty: 90 4RF ipratropium-albuterol 0.5 mg-3 mg(2.5 mg base)/3 mL solution for nebulization 3 ml IN QID PRN (Reason: shortness of breath or wheezing) Qty: 90 4RF Rx Instructions: increased dose/use treatment 4 times/day as needed NOT SENT polyethylene glycol 3350 [Miralax] 17 gram/dose powder 17 g PO DAILY PRN (Reason: constipation) Rx Instructions: 06/19/22 instructed by PCP to take 1/2 cap daily, may reduce to half cap three times per week if daily is too much acetylcysteine [NAC] 600 mg capsule 600 mg PO BID Qty: 60 12RF Vancomycin 250 mg NEB BID 28 Days Qty: 280 12RF Rx Instructions: 250mg vancomycin in 5 cc of sterile water for nebulization To be given every other month for 28 consecutive days gabapentin 100 mg capsule 200 mg PO BID Qty: 360 3RF sulfamethoxazole-trimethoprim 200-40 mg/5 mL suspension 5 ml PO DAILY 28 Days Qty: 473 9RF Rx Instructions: Take daily for 4 weeks, then off for 4 weeks, etc nystatin 100,000 unit/gram powder 1 applic topical BID Qty: 60 12RF finasteride 5 mg tablet 5 mg PO DAILY Qty: 90 3RF tamsulosin [Flomax] 0.4 mg capsule 0.4 mg PO DAILY Qty: 90 3RF melatonin 3 MG tablet 6 mg PO HS Align 4 mg Capsule 4 mg PO QPM ferrous sulfate [FeroSul] 325 mg (65 mg iron) tablet 325 mg PO DAILY Patient Comments: TAKE 1 TABLET VIA FEEDING TUBE ONCE DAILY fluconazole 100 mg Tablet 200 mg feeding tube DAILY 14 Days Qty: 28 0RF Eliquis DVT-PE Treat 30D Start 5 mg (74 tabs) tablets,dose pack 5 mg PO ONCE Qty: 74 0RF Discharge Instructions Additional Instructions: At this time your tube has been replaced. It flushes well. Please follow-up closely with your surgeons as needed. If you notice any worsening of your symptoms, or any new symptoms such as vomiting, diarrhea, fever, chills, shortness of breath, chest pain, numbness, weakness, or fainting , please return immediately to the emergency department for reevaluation. Please follow up with your primary care provider as soon as possible for reassessment and reevaluation. As always, it was a pleasure participating in your medical care today. Referrals: Nazia Chan [Primary Care Provider] - Medical Decision Making 78-year-old male with a past medical history of COPD, abdominal aneurysm, and throat cancer 11 years ago for which he received radiation at that time, but nothing since then.? Unfortunately secondary to this he has had tracheal stenosis, requiring a tracheostomy.? He recently had multiple revisions, including a graft with skin taken from his left shoulder and placed over his tracheostomy site.? Who is a palliative care patient, with a history of chronic MRSA pneumonia, abdominal aortic aneurysm, thoracic aortic aneurysm, tracheoesophageal fistula, who presents here for G-tube problems. Patient has had the G-tube for greater than 6 months. It is a Nasim 20 [place] low-profile. He states that about an hour and a half ago he accidentally pulled it out while resting. He tried to put it back in himself but was unable to. He denies any pain or other complaints. No other modifying factors. This has happened in the past. Exam demonstrates nontender abdomen. G-tube site is clean dry and intact. Discussed risks and benefits of replacement. Patient requested that it be replaced. Patient's original tube was replaced without difficulty or compli cations. It flushes well. No pain. The tube was secured to his abdomen. He tolerated this well. Patient will be discharged. Discussed red flags for which to return. I have extensively reviewed the treatment plan and discharge instructions with the patient and their family. I have addressed all patient concerns at this time. The patient and family was made aware of what symptoms to monitor for that would warrant a return to the emergency department. Discussed the plan with the patient and family, they demonstrate verbal understanding and agreement with our assessment and plan at this time. The documentation in this chart was dictated using [employer] dictation software. Please excuse any dictation errors. HPI General Date/Time Provider Initiated Documentation: 04/29/23 05:18 . HPI Narrative: 78-year-old male with a past medical history of COPD, abdominal aneur ysm, and throat cancer 11 years ago for which he received radiation at that time, but nothing since then.? Unfortunately secondary to this he has had tracheal stenosis, requiring a tracheostomy.? He recently had multiple revisions, including a graft with skin taken from his left shoulder and placed over his tracheostomy site.? Who is a palliative care patient, with a history of chronic MRSA pneumonia, abdominal aortic aneurysm, thoracic aortic aneurysm, tracheoesophageal fistula, who presents here for G-tube problems. Patient has had the G-tube for greater than 6 months. It is a Nasim 20 [place] low-profile. He states that about an hour and a half ago he accidentally pulled it out while resting. He tried to put it back in himself but was unable to. He denies any pain or other complaints. No other modifying factors. This has happened in the past. Related Data Home Medications Medication Instructions Recorded Confirmed omeprazole 20 mg capsule,delayed 20 mg feeding tube BID #90 caps 10/05/19 04/21/23 release melatonin 3 mg tablet 6 mg PO HS 10/29/19 04/21/23 rosuvastatin 40 mg tablet 40 mg feeding tube HS #90 tabs 12/14/19 04/21/23 acetylcysteine 100 mg/mL (10 %) 4 ml inhalation BID 07/05/20 04/21/23 solution ipratropium 0.5 mg-albuterol 3 mg 3 ml IN QID PRN shortness of 07/30/20 04/21/23 (2.5 mg base)/3 mL nebulization breath or wheezing #90 mL soln amlodipine 5 mg tablet 5 mg PO DAILY 10/04/20 04/21/23 Bifidobacterium infantis 4 mg 4 mg PO QPM 08/03/21 04/21/23 capsule (Align) ferrous sulfate 325 mg (65 mg 325 mg PO DAILY 08/05/21 04/21/23 iron) tablet (FeroSul) aspirin 81 mg tablet,delayed 81 mg PO DAILY 11/25/21 04/21/23 release (Adult Aspirin Regimen) ropinirole 1 mg tablet 1 mg PO BID 01/07/22 04/21/23 acetaminophen 500 mg tablet 1,000 mg PO BID PRN 03/05/22 04/21/23 (Tylenol Extra Strength) polyethylene glycol 3350 17 17 g PO DAILY PRN constipation 06/19/22 04/21/23 gram/dose oral powder (Miralax) acetylcysteine 600 mg capsule (NAC) 600 mg PO BID #60 caps 08/29/22 04/21/23 Vancomycin 250 mg NEB BID 28 days #280 mL 09/29/22 04/21/23 levothyroxine See Rx Instructions .Route 10/27/22 04/21/23 DIRECTED gabapentin 100 mg capsule 200 mg (2 x 100 mg) PO BID #360 12/10/22 04/21/23 caps sulfamethoxazole 200 5 ml PO DAILY 28 days #473 mL 12/11/22 04/21/23 mg-trimethoprim 40 mg/5 mL oral suspension nystatin 100,000 unit/gram topical 1 applic topical BID #60 grams 02/19/23 04/21/23 powder sertraline 50 mg tablet 50 mg PO DAILY #30 tabs 04/14/23 04/21/23 finasteride 5 mg tablet 5 mg PO DAILY #90 tabs 04/16/23 04/21/23 tamsulosin 0.4 mg capsule (Flomax) 0.4 mg PO DAILY #90 caps 04/16/23 04/21/23 apixaban 5 mg (74 tabs) tablets in 5 mg PO ONCE #74 dose pk 04/23/23 a dose pack (Eliquis DVT-PE Treat 30D Start) fluconazole 100 mg tablet 200 mg (2 x 100 mg) feeding tube 04/23/23 DAILY 14 days #28 tabs Previous Rx's Medication Instructions Recorded omeprazole 20 mg capsule,delayed 20 mg feeding tube BID #90 caps 10/05/19 release rosuvastatin 40 mg tablet 40 mg feeding tube HS #90 tabs 12/14/19 ipratropium 0.5 mg-albuterol 3 mg 3 ml IN QID PRN shortness of 07/30/20 (2.5 mg base)/3 mL nebulization breath or wheezing #90 mL soln acetylcysteine 600 mg capsule (NAC) 600 mg PO BID #60 caps 08/29/22 Vancomycin 250 mg NEB BID 28 days #280 mL 09/29/22 gabapentin 100 mg capsule 200 mg (2 x 100 mg) PO BID #360 12/10/22 caps sulfamethoxazole 200 5 ml PO DAILY 28 days #473 mL 12/11/22 mg-trimethoprim 40 mg/5 mL oral suspension nystatin 100,000 unit/gram topical 1 applic topical BID #60 grams 02/19/23 powder sertraline 50 mg tablet 50 mg PO DAILY #30 tabs 04/14/23 finasteride 5 mg tablet 5 mg PO DAILY #90 tabs 04/16/23 tamsulosin 0.4 mg capsule (Flomax) 0.4 mg PO DAILY #90 caps 04/16/23 apixaban 5 mg (74 tabs) tablets in 5 mg PO ONCE #74 dose pk 04/23/23 a dose pack ([employer] DVT-PE Treat 30D Start) fluconazole 100 mg tablet 200 mg (2 x 100 mg) feeding tube 04/23/23 DAILY 14 days #28 tabs Allergies Allergy/AdvReac Type Severity Reaction Status Date / Time pollen extracts Allergy Mild Verified 04/29/23 05:27 Tetracyclines Allergy Unknown SKIN RASH Verified 04/29/23 05:27 General Stated Complaint: GenMedical CHER: 4 Review of Systems All systems reviewed & are unremarkable except as noted in HPI and below PFSH All Active Problems (Updated 04/29/23 @ 05:39 by Francisco Lindsey DO) Gastrostomy tube dysfunction (Acute) Ambulatory dysfunction (Acute) Leukocytosis (leucocytosis) (Acute) UTI (urinary tract infection) (Acute) Multiple subsegmental pulmonary emboli without acute cor pulmonale (Acute) C1 cervical fracture (Acute) Gastrostomy tube dysfunction (Acute) Advance care planning (Acute) Encounter for hospice care discussion (Acute) Unintentional weight loss of 10% body weight within 6 months (Acute) Dysuria (Acute) Malfunctioning jejunostomy tube (Acute) Need for follow-up by social worker school (Acute) Dysphagia (Acute) Weakness (Acute) Impaired instrumental activities of daily living (Acute) Plantar fascial fibromatosis (Acute) Feeding tube dysfunction (Acute) Sensorineural hearing loss (SNHL) of both ears (Acute) Otalgia of right ear (Acute) Neck pain on right side (Acute) Neck pain on right side (Acute) Full code status (Acute) Need for home health care (Acute) MRSA pneumonia (Acute) pt likely colonized Occlusion of right vertebral artery (Acute) Hypoxemia (Acute) Complication of feeding tube (Acute) Peripheral neuropathy (Acute 02/21/15) PAOD (peripheral arterial occlusive disease) (Acute) COPD (chronic obstructive pulmonary disease) (Chronic) G tube feedings (Acute) 20F 3.0cm 11/30/22. Routine change every 4 months. 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 Hypertension Tobacco use COPD (chronic obstructive pulmonary disease) Post herpetic neuralgia Hypothyroidism Hyperlipemia Depression Anxiety Anemia Conjunctivitis, chronic Surgical History S/P AAA (abdominal aortic aneurysm) repair Status post laryngectomy History of esophagogastroduodenoscopy (EGD) (~08/10/19) Daron Casper APRN @ [facility]: hiatal hernia, GERD, Reyes's esophagitis, neuromuscular dysfunction History of laryngectomy Status post cardiac catheterization Status post cataract extraction and insertion of intraocular lens of right eye (07/12/18) History of tarsorrhaphy Status post cataract extraction and insertion of intraocular lens of left eye (04/30/12) 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) Sin-mullins button placed by Dr Elia Mcdonald, [facility] PROCEDURES RT/LEFT HEART CARD CATH COMPLETE LARYNGECTOMY Esophagoplasty EGD - MAC (07/06/17) Colonoscopy - MAC (12/22/16) History of radical laryngectomy Family History Nephew Throat cancer Maternal Cousin Cancer Social History Smoking/Tobacco Use Status: Former Tobacco Use Quit Date: 04/23/13 Tobacco: How many years used: 20 Smoking risk assessment performed?: Yes Alcohol Intake: never Drug use: Never Substance use type: does not use Housing: apartment Current gender identity: male Do you feel safe at home: Yes Do you feel safe in your relationship?: Yes Exam Narrative Exam Narrative: 1.Const: Well-nourished, Well-developed, appearing stated age 2.Eyes: PERRL, no conjunctival injection, and symmetrical lids. 3.ENT: Atraumatic external nose and ears. Moist MM. Neck: Symmetric, trachea midline, No thyromegaly. 4.CVS: +S1/S2, No murmurs or gallops. Peripheral pulses 2+ and equal in all extremities. Brisk capillary refill in all extremities. 5.RESP: Unlabored respiratory effort. Clear to auscultation bilaterally. No wheezes rales or rhonchi 6.GI: Soft, Nontender/Nondistended, No hepatosplenomegaly. No guarding or rebound. G-tube site is clean dry and intact with no bleeding. 7.MSK: Normocephalic/Atraumatic, Extremities w/o deformity or ttp No cyanosis or clubbing, Normal movement of all extremities 8.Skin: Warm, Dry. No rashes or lesions. 9.Neuro: stoneworker II-XII grossly intact. Sensation grossly intact, no focal neurologic deficits. 10.Psych: (AAO) x3. Appropriate mood and affect Course Vital Signs Vital signs: Vital Signs Temperature 36.5 C 04/29/23 05:20 Pulse 69 04/29/23 05:20 Respiratory Rate 16 04/29/23 05:20 Blood Pressure 134/116 H 04/29/23 05:20 Pulse Oximetry 100 04/29/23 05:20 Temperature 36.5 C 04/29/23 05:20 Pulse 69 04/29/23 05:20 Respiratory Rate 16 04/29/23 05:20 Respiratory Effort Normal 04/29/23 05:23 Respiratory Depth Normal 04/29/23 05:23 Respiratory Pattern Normal 04/29/23 05:23 Blood Pressure 134/116 H 04/29/23 05:20 Pulse Oximetry 100 04/29/23 05:20 Pain Level 0 04/29/23 05:20
[2023-04-29] MEDS: Water,Injection,Sterile 10 ML VIAL (05:56)
== END 2023-04-29 05:58 | disposition home or self-care (01) ==
PROVIDERS: Emergency Provider Student in an Organized Health Care Education/Training Program; PCP Physician Assistant Medical
DX: K94.23 Gastrostomy malfunction (principal); I25.10 Atherosclerotic heart disease of native coronary artery without angina pectoris; I10 Essential (primary) hypertension; E78.5 Hyperlipidemia, unspecified; E03.9 Hypothyroidism, unspecified; J44.9 Chronic obstructive pulmonary disease, unspecified; Z85.21 Personal history of malignant neoplasm of larynx; Z79.82 Long term (current) use of aspirin; Z79.01 Long term (current) use of anticoagulants; Z87.891 Personal history of nicotine dependence
CPT/HCPCS: 99283

== ENCOUNTER → 2023-04-30 10:47 | Outpatient (BNVA) | payer MEDICARE, MEDICAID, SELFPAY | PROVIDERS: PCP Physician Assistant Medical; Visit Provider Psychiatry & Neurology Neurology | DX: G25.81 Restless legs syndrome (principal); G62.9 Polyneuropathy, unspecified; R41.3 Other amnesia | CPT/HCPCS: 99214 ==

== ENCOUNTER 2023-05-07 01:07 | Emergency (ER) | payer MEDICARE, MEDICAID, SELFPAY ==
--- NOTE | 2023-05-07 01:12 | ED.GENADUL_ITS ---
Discharge Plan Disposition Patient Disposition: Home Discharge Details Clinical Impression: Complication of feeding tube Primary Care Provider: Nazia Chan ED Provider: Dwayne Delgado [place] Meds and New Rx's Prescriptions: Continued ropinirole 1 mg tablet 1 mg PO BID aspirin [Adult Aspirin Regimen] 81 mg tablet,delayed release (DR/EC) 81 mg PO DAILY acetaminophen [Tylenol Extra Strength] 500 mg tablet 1,000 mg PO BID PRN omeprazole 20 mg capsule,delayed release(DR/EC) 20 mg feeding tube BID Qty: 90 4RF acetylcysteine 100 mg/mL (10 %) solution 4 ml inhalation BID amlodipine 5 mg tablet 5 mg PO DAILY levothyroxine See Rx Instructions .ROUTE DIRECTED Rx Instructions: as directed; sertraline 50 mg tablet 50 mg PO DAILY Qty: 30 2RF Rx Instructions: decreased by PCP on 06/19/22 rosuvastatin 40 mg tablet 40 mg feeding tube HS Qty: 90 4RF ipratropium-albuterol 0.5 mg-3 mg(2.5 mg base)/3 mL solution for nebulization 3 ml IN QID PRN (Reason: shortness of breath or wheezing) Qty: 90 4RF Rx Instructions: increased dose/use treatment 4 times/day as needed NOT SENT polyethylene glycol 3350 [Miralax] 17 gram/dose powder 17 g PO DAILY PRN (Reason: constipation) Rx Instructions: 06/19/22 instructed by PCP to take 1/2 cap daily, may reduce to half cap three times per week if daily is too much acetylcysteine [NAC] 600 mg capsule 600 mg PO BID Qty: 60 12RF Vancomycin 250 mg NEB BID 28 Days Qty: 280 12RF Hold Instructions: takes every other 28 days Rx Instructions: 250mg vancomycin in 5 cc of sterile water for nebulization To be given every other month for 28 consecutive days gabapentin 100 mg capsule 200 mg PO BID Qty: 360 3RF sulfamethoxazole-trimethoprim 200-40 mg/5 mL suspension 5 ml PO DAILY 28 Days Qty: 473 9RF Rx Instructions: Take daily for 4 weeks, then off for 4 weeks, etc nystatin 100,000 unit/gram powder 1 applic topical BID Qty: 60 12RF finasteride 5 mg tablet 5 mg PO DAILY Qty: 90 3RF tamsulosin [Flomax] 0.4 mg capsule 0.4 mg PO DAILY Qty: 90 3RF melatonin 3 MG tablet 6 mg PO HS Align 4 mg Capsule 4 mg PO QPM ferrous sulfate [FeroSul] 325 mg (65 mg iron) tablet 325 mg PO DAILY Patient Comments: TAKE 1 TABLET VIA FEEDING TUBE ONCE DAILY [place] DVT-PE Treat 30D Start 5 mg (74 tabs) tablets,dose pack 5 mg PO ONCE Qty: 74 0RF Discharge Instructions Additional Instructions: You were seen in the emergency department after your G-tube became dislodged. As we discussed, please call the general surgery clinic on Thursday morning next week for follow-up appointment. In the meantime you have been provided with syringe for which you can use for tube feeds. Each syringe holds a total of 50 cc of fluid. During each of your tube feeds you consume 2 boxes which totals 500 cc of nutrition. Please fill up the syringe and slowly push 3 to 4 syringe fulls of tube feeds every hour. Please stop if the patient feels discomfort in his stomach. After you are done please flush the tube with water that is not too hot new nor too cold. Please also take apart this syringes to wear shown. Please wash it with warm and soapy water. Please also be sure to place the caps onto the 2 ports of the G-tube as you were shown. If you have any concerns about the feeding please return to the emergency department. In the afternoon please crush her medications and either place them in the water and through the tube being sure to flush afterwards or add them to a tube feed. Referrals: Nancy Riley DO [OSTEOPATHIC DOCTOR] - Discharge Data Discharge Date/Time-TO BE ENTERED AT DEPARTURE: 05/07/23 08:42 HPI General Date/Time Provider Initiated Documentation: 05/07/23 01:11 . HPI Narrative: MDM This is a chronically ill-appearing 78-year-old normothermic and not tachycardic G-tube dependent male with G-tube that inadvertently came out approximately 1 hour ago. Patient reports that G-tube is a 20 [place] G-tube. It was replaced at bedside in the emergency department earlier this month.Patient cannot recall when tube was placed the chart review indicates that it may have been placed last year. Patient is adamant that the tube was placed many months ago. He was amenable to replacement in the ED. Fortunately we did not have a G-tube so I used a 20 [place] African Denny which patient tolerated well. Follow-up Gastrografin contrast study. G-tube appears in adequate position. We will await radiology read and follow-up with general surgery. The small abrasion on patient's forehead was dressed with a bandage. 3:42 AM Preliminary virtual radiology read shows that the Denny catheter is in good position with no evidence of contrast extravasation to indicate leak: Exam: XR Abdomen Exam date and time: 05/07/2023 2:29 AM Age: 78 years old Clinical indication: Device placement; Gi device; Peg tube and other: gerhard feeding tube; Additional info: Confirm g-tube TECHNIQUE: Imaging protocol: Radiologic exam of the abdomen. Views: Frontal supine view of the abdomen. 1 View. COMPARISON: CT THORAX ABD/PEL CTA 07/01/2021 11:38 AM FINDINGS: Tubes, catheters and devices: Contrast injection of percutaneous G- tube demonstrates contrast in the under distended stomach and proximal jejunum. No evidence of extravasation to indicate leak. Gastrointestinal tract: Normal. No bowel dilation. Bones/joints: Unremarkable IMPRESSION: Contrast injection of percutaneous G-tube demonstrates contrast in the under distended stomach and proximal jejunum. No evidence of extravasation to indicate leak. Dictated and Authenticated by: Fede Mart MD 05/07/2023 3:41 AM Eastern Time ([place] & [place]) 4:54 AM I spoke with Dr. Riley from general surgery. She advised that unfortunately the hospital does not stock NG tube and that the patient would have to call the general surgery clinic on Thursday next week given holiday weekend to schedule a tube replacement. Between now and then she recommended using a Mariel syringe to complete the feeds. Patient's did not feel comfortable with this as she generally relies upon a pump which delivered approximately 250 cc of nutrition over the course of several hours. I advised her that I could instruct her for the first feed and that we could do so in the emergency department. She is calling her daughter to arrange for the feeds to be brought to the emergency department. 6:45 AM Patient's has not yet returned for trial of tube feed. If patient's does not return before change of shift will sign patient out to oncoming daytime provider. Assuming patient's feels comfortable and is able to adequately provide nourishment for the patient over the coming weekend to be appropriate for discharge with outpatient general surgery follow-up next week. Patient and his were not comfortable or able to provide tube feeds then it may be reasonable to reach out to gastroenterology at [facility] in the event that they are not able to assist with more expedited G-tube replacement. 7:15 AM Patient's has arrived with his tube feeds. She reports that he takes 500 cc of tube feeds twice a day. She reports that these are generally run on a pump and go and of her approximately 5 hours. She has been provided with a 50 cc Mariel syringe. Nurse Verónica and I instructed patient's on drawing up his tube feeds into the Mariel syringe from a basin. She will slowly push 50 cc of tube feeds at a time. She will push 3 to 4 syringes every hour. She will slow down if the patient feels discomfort in his stomach. Verónica reviewed cleaning with Mariel syringe, flushing the line with water that is not too hot or too cold. We also discussed ED return if the tube became dislodged or if patient has any difficulty with tube feeds. Verónica also went over crushing the afternoon meds to place either to water or in a tube feed. We will proceed with empiric trial of discharge expectant outpatient management. Chronic conditions affecting the care of the patient: COPD throat cancer abdominal aneurysm History obtained from an outside historian: Patient's External record review: [facility] EMR Medications: N/A Social determinants of health affecting disposition: N/A Management discussed with: General surgery Treatment/interventions considered: Transfer but deferred Response to therapies provided: Satisfactory placement of Denny catheter and G- tube site HPI This is a 78-year-old male with history of COPD throat cancer and G-tube which is a Gerhard 20 [place] low-profile. Patient reports that he was resting approximately an hour ago when he accidentally pulled the G-tube out. This has happened in the past. He tried to put it back in himself but he was unable to. No recent fevers cough or shortness of breath. No chest pain nor abdominal pain. No nausea. No vomiting. Patient reportedly also has been scratching at his forehead. Exam General: Chronically ill-appearing in no acute distress speaking in complete sentences. Head: Normocephalic, on the left side of the forehead there is a small pinpoint abrasion. Eye: Extraocular eye movements intact. No conjunctival injection. No scleral icterus. Ear, nose, mouth, throat: Grossly normal inspection. Normal voice, handling secretions normally. Neck: Trachea midline. Cardiovascular: Well-perfused distal extremities. Respiratory: Nonlabored respiration. Gastrointestinal: Nondistended abdomen. G-tube site clean dry and intact. No significant erythema. No fluctuance. Please see procedure note concerning Denny insertion. Musculoskeletal: No edema. Moving all 4 extremities spontaneously. Skin: Normal for age and race, grossly normal temperature and turgor. No acute rash. Neurologic: Alert and appropriate, no apparent acute deficits. Psychiatric: Mood and manner are appropriate. Grooming and personal hygiene are appropriate. Related Data Home Medications Medication Instructions Recorded Confirmed omeprazole 20 mg capsule,delayed 20 mg feeding tube BID #90 caps 10/05/19 05/07/23 release melatonin 3 mg tablet 6 mg PO HS 10/29/19 05/07/23 rosuvastatin 40 mg tablet 40 mg feeding tube HS #90 tabs 12/14/19 05/07/23 acetylcysteine 100 mg/mL (10 %) 4 ml inhalation BID 07/05/20 05/07/23 solution ipratropium 0.5 mg-albuterol 3 mg 3 ml IN QID PRN shortness of 07/30/20 05/07/23 (2.5 mg base)/3 mL nebulization breath or wheezing #90 mL soln amlodipine 5 mg tablet 5 mg PO DAILY 10/04/20 05/07/23 Bifidobacterium infantis 4 mg 4 mg PO QPM 08/03/21 05/07/23 capsule (Align) ferrous sulfate 325 mg (65 mg 325 mg PO DAILY 08/05/21 05/07/23 iron) tablet (FeroSul) aspirin 81 mg tablet,delayed 81 mg PO DAILY 11/25/21 05/07/23 release (Adult Aspirin Regimen) ropinirole 1 mg tablet 1 mg PO BID 01/07/22 05/07/23 acetaminophen 500 mg tablet 1,000 mg PO BID PRN 03/05/22 05/07/23 (Tylenol Extra Strength) polyethylene glycol 3350 17 17 g PO DAILY PRN constipation 06/19/22 05/07/23 gram/dose oral powder (Miralax) acetylcysteine 600 mg capsule (NAC) 600 mg PO BID #60 caps 08/29/22 05/07/23 Vancomycin 250 mg NEB BID 28 days #280 mL 09/29/22 05/07/23 levothyroxine See Rx Instructions .Route 10/27/22 05/07/23 DIRECTED gabapentin 100 mg capsule 200 mg (2 x 100 mg) PO BID #360 12/10/22 05/07/23 caps sulfamethoxazole 200 5 ml PO DAILY 28 days #473 mL 12/11/22 05/07/23 mg-trimethoprim 40 mg/5 mL oral suspension nystatin 100,000 unit/gram topical 1 applic topical BID #60 grams 02/19/23 05/07/23 powder sertraline 50 mg tablet 50 mg PO DAILY #30 tabs 04/14/23 05/07/23 finasteride 5 mg tablet 5 mg PO DAILY #90 tabs 04/16/23 05/07/23 tamsulosin 0.4 mg capsule (Flomax) 0.4 mg PO DAILY #90 caps 04/16/23 05/07/23 apixaban 5 mg (74 tabs) tablets in 5 mg PO ONCE #74 dose pk 04/23/23 05/07/23 a dose pack (20/[employer] DVT-PE Treat 30D Start) Previous Rx's Medication Instructions Recorded omeprazole 20 mg capsule,delayed 20 mg feeding tube BID #90 caps 10/05/19 release rosuvastatin 40 mg tablet 40 mg feeding tube HS #90 tabs 12/14/19 ipratropium 0.5 mg-albuterol 3 mg 3 ml IN QID PRN shortness of 07/30/20 (2.5 mg base)/3 mL nebulization breath or wheezing #90 mL soln acetylcysteine 600 mg capsule (NAC) 600 mg PO BID #60 caps 08/29/22 Vancomycin 250 mg NEB BID 28 days #280 mL 09/29/22 gabapentin 100 mg capsule 200 mg (2 x 100 mg) PO BID #360 12/10/22 caps sulfamethoxazole 200 5 ml PO DAILY 28 days #473 mL 12/11/22 mg-trimethoprim 40 mg/5 mL oral suspension nystatin 100,000 unit/gram topical 1 applic topical BID #60 grams 02/19/23 powder sertraline 50 mg tablet 50 mg PO DAILY #30 tabs 04/14/23 finasteride 5 mg tablet 5 mg PO DAILY #90 tabs 04/16/23 tamsulosin 0.4 mg capsule (Flomax) 0.4 mg PO DAILY #90 caps 04/16/23 apixaban 5 mg (74 tabs) tablets in 5 mg PO ONCE #74 dose pk 04/23/23 a dose pack (Eliquis DVT-PE Treat 30D Start) Allergies Allergy/AdvReac Type Severity Reaction Status Date / Time pollen extracts Allergy Mild Verified 05/07/23 01:21 Tetracyclines Allergy Unknown SKIN RASH Verified 05/07/23 01:21 General CHER: 4 PFSH All Active Problems (Updated 05/07/23 @ 07:16 by Dwayne Delgado MD) Gastrostomy tube dysfunction (Acute) Ambulatory dysfunction (Acute) Leukocytosis (leucocytosis) (Acute) UTI (urinary tract infection) (Acute) Multiple subsegmental pulmonary emboli without acute cor pulmonale (Acute) C1 cervical fracture (Acute) Gastrostomy tube dysfunction (Acute) Advance care planning (Acute) Encounter for hospice care discussion (Acute) Unintentional weight loss of 10% body weight within 6 months (Acute) Dysuria (Acute) Malfunctioning jejunostomy tube (Acute) Need for follow-up by social media coordinator (Acute) Dysphagia (Acute) Weakness (Acute) Impaired instrumental activities of daily living (Acute) Plantar fascial fibromatosis (Acute) Feeding tube dysfunction (Acute) Sensorineural hearing loss (SNHL) of both ears (Acute) Otalgia of right ear (Acute) Neck pain on right side (Acute) Neck pain on right side (Acute) Full code status (Acute) Need for home health care (Acute) MRSA pneumonia (Acute) pt likely colonized Occlusion of right vertebral artery (Acute) Hypoxemia (Acute) Complication of feeding tube (Acute) Peripheral neuropathy (Acute 02/21/15) PAOD (peripheral arterial occlusive disease) (Acute) COPD (chronic obstructive pulmonary disease) (Chronic) G tube feedings (Acute) 20F 3.0cm 11/30/22. Routine change every 4 months. 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 Hypertension Tobacco use COPD (chronic obstructive pulmonary disease) Post herpetic neuralgia Hypothyroidism Hyperlipemia Depression Anxiety Anemia Conjunctivitis, chronic Surgical History S/P AAA (abdominal aortic aneurysm) repair Status post laryngectomy History of esophagogastroduodenoscopy (EGD) (~08/10/19) Daron Casper APRN @ [facility]: hiatal hernia, GERD, Reyes's esophagitis, neuromuscular dysfunction History of laryngectomy Status post cardiac catheterization Status post cataract extraction and insertion of intraocular lens of right eye (07/12/18) History of tarsorrhaphy Status post cataract extraction and insertion of intraocular lens of left eye (04/30/12) 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) Sin-mullins button placed by Dr Elia Mcdonald, [facility] PROCEDURES RT/LEFT HEART CARD CATH COMPLETE LARYNGECTOMY Esophagoplasty EGD - MAC (07/06/17) Colonoscopy - MAC (12/22/16) History of radical laryngectomy Family History Nephew Throat cancer Maternal Cousin Cancer Social History Smoking/Tobacco Use Status: Former Tobacco Use Quit Date: 04/23/13 Tobacco: How many years used: 20 Smoking risk assessment performed?: Yes Alcohol Intake: never Drug use: Never Substance use type: does not use Housing: apartment Current gender identity: male Do you feel safe at home: Yes Do you feel safe in your relationship?: Yes Procedures Feeding Tube Replacement Type of Tube: gastrostomy Insertion Site Prior to Procedure: clean Tube Used for Reinsertion: Denny [place] Tube Size (F): 20 Balloon size (mL): 10 (Normal saline) Verification of Placement: KUB and gastrograffin injection Tube Secured by: tape/dressing Patient Tolerated Procedure: well
[2023-05-07 01:15] VITALS: BP 180/77; PULSE 60; RESP 18; TEMP 36.7; O2SAT 98
--- NOTE | 2023-05-07 01:15 | DI.RAD_ITS ---
Exam(s) XR ABDOMEN FLAT PLATE EXAM: 2D digital imaging was performed. CLINICAL HISTORY: Confirm G-tube. COMPARISON: CR XR ABDOMEN FLAT PLATE from 11/01/2020 TECHNIQUE: Supine views of the abdomen performed. Three images were obtained. FINDINGS: BOWEL GAS PATTERN: Contrast was injected via the percutaneous gastrostomy tube. The images demonstra te contrast in the stomach and proximal duodenum and jejunum. No evidence of extravasation to indica te a leak. No evidence of bowel dilatation. CALCIFICATIONS: No radiopaque calcifications. OSSEOUS STRUCTURES: Normal for age. OTHER FINDINGS: There is an extensive endovascular stent extending from the descending aorta into the iliac arteries. IMPRESSION: Contrast injection via the percutaneous G-tube demonstrates contrast within the stomach and duodenum without evidence of extravasation to indicate a leak. DATA REPOSITORY: RADIATION DOSE DELIVERED:
[2023-05-07 01:20] VITALS: RESP 18
[2023-05-07 01:26] VITALS: BP 180/77; PULSE 60; RESP 18; TEMP 36.7; O2SAT 98
--- NOTE | 2023-05-07 03:42 | DI.VRAD_ITS ---
PROCEDURE INFORMATION: Exam: XR Abdomen Exam date and time: 05/07/2023 2:29 AM Age: 78 years old Clinical indication: Device placement; Gi device; Peg tube and other: gerhard feeding tube; Additional info: Confirm g-tube TECHNIQUE: Imaging protocol: Radiologic exam of the abdomen. Views: Frontal supine view of the abdomen. 1 View. COMPARISON: CT THORAX ABD/PEL CTA 07/01/2021 11:38 AM FINDINGS: Tubes, catheters and devices: Contrast injection of percutaneous G-tube demonstrates contrast in the under distended stomach and proximal jejunum. No evidence of extravasation to indicate leak. Gastrointestinal tract: Normal. No bowel dilation. Bones/joints: Unremarkable. IMPRESSION: Contrast injection of percutaneous G-tube demonstrates contrast in the under distended stomach and proximal jejunum. No evidence of extravasation to indicate leak. Dictated and Authenticated by: Fede Mart MD. Ordering:JUAN Rice MD
[2023-05-07 07:45] VITALS: BP 150/82; PULSE 67; RESP 18; TEMP 36.7; O2SAT 98
== END 2023-05-07 08:42 | disposition home or self-care (01) ==
PROVIDERS: Emergency Provider Emergency Medicine; PCP Physician Assistant Medical
DX: K94.23 Gastrostomy malfunction (principal); Z85.21 Personal history of malignant neoplasm of larynx; Z95.828 Presence of other vascular implants and grafts; J44.0 Chronic obstructive pulmonary disease with (acute) lower respiratory infection
CPT/HCPCS: 43762; 99283; 74018

== ENCOUNTER 2023-05-11 09:06 | Emergency (ER) | payer MEDICARE, MEDICAID, SELFPAY ==
[2023-05-11 09:13] VITALS: BP 131/93; PULSE 80; RESP 18; TEMP 37.1; O2SAT 94
--- NOTE | 2023-05-11 09:15 | W.ED.GENAD ---
Discharge Plan Disposition Patient Disposition: Other Disposition Not Listed Other Facility: Outpatient Surgery clinic Discharge Details Clinical Impression: Leaking percutaneous endoscopic gastrostomy (PEG) tube Primary Care Provider: Nazia Chan ED Provider: Elysia Griffin [place] Meds and New Rx's Prescriptions: No Action ropinirole 1 mg tablet 1 mg PO BID aspirin [Adult Aspirin Regimen] 81 mg tablet,delayed release (DR/EC) 81 mg PO DAILY acetaminophen [Tylenol Extra Strength] 500 mg tablet 1,000 mg PO BID PRN omeprazole 20 mg capsule,delayed release(DR/EC) 20 mg feeding tube BID Qty: 90 4RF acetylcysteine 100 mg/mL (10 %) solution 4 ml inhalation BID amlodipine 5 mg tablet 5 mg PO DAILY levothyroxine See Rx Instructions .ROUTE DIRECTED Rx Instructions: as directed; sertraline 50 mg tablet 50 mg PO DAILY Qty: 30 2RF Rx Instructions: decreased by PCP on 06/19/22 rosuvastatin 40 mg tablet 40 mg feeding tube HS Qty: 90 4RF ipratropium-albuterol 0.5 mg-3 mg(2.5 mg base)/3 mL solution for nebulization 3 ml IN QID PRN (Reason: shortness of breath or wheezing) Qty: 90 4RF Rx Instructions: increased dose/use treatment 4 times/day as needed NOT SENT polyethylene glycol 3350 [Miralax] 17 gram/dose powder 17 g PO DAILY PRN (Reason: constipation) Rx Instructions: 06/19/22 instructed by PCP to take 1/2 cap daily, may reduce to half cap three times per week if daily is too much acetylcysteine [NAC] 600 mg capsule 600 mg PO BID Qty: 60 12RF Vancomycin 250 mg NEB BID 28 Days Qty: 280 12RF Hold Instructions: takes every other 28 days Rx Instructions: 250mg vancomycin in 5 cc of sterile water for nebulization To be given every other month for 28 consecutive days gabapentin 100 mg capsule 200 mg PO BID Qty: 360 3RF sulfamethoxazole-trimethoprim 200-40 mg/5 mL suspension 5 ml PO DAILY 28 Days Qty: 473 9RF Rx Instructions: Take daily for 4 weeks, then off for 4 weeks, etc nystatin 100,000 unit/gram powder 1 applic topical BID Qty: 60 12RF finasteride 5 mg tablet 5 mg PO DAILY Qty: 90 3RF tamsulosin [Flomax] 0.4 mg capsule 0.4 mg PO DAILY Qty: 90 3RF melatonin 3 MG tablet 6 mg PO HS Align 4 mg Capsule 4 mg PO QPM ferrous sulfate [FeroSul] 325 mg (65 mg iron) tablet 325 mg PO DAILY Patient Comments: TAKE 1 TABLET VIA FEEDING TUBE ONCE DAILY Saraquis DVT-PE Treat 30D Start 5 mg (74 tabs) tablets,dose pack 5 mg PO ONCE Qty: 74 0RF Discharge Instructions Instructions: Tube Feeding (DC) Additional Instructions: GO directly to The outpatient surgery clinic to see Dr. Riley, they are expecting you there. Referrals: Nancy Riley DO [OSTEOPATHIC DOCTOR] - 1 day Medical Decision Making 78 year old male presents [facility] ED with a chief complaint of leaking G-tube, patient was here four days ago and had a 20 Fr Denny catheter placed after a Nasim G-tube was accidentally dislodged. They were unable to get ahold of General surgery so they opted to present to the ED. Patient reports it was leaking a little bit yesterday but leakage increased today. PMHX includes laryngeal cancer, hematoma, coronary artery disease, restless leg syndrome, hypothyroidism hypertension hyperlipidemia history of alcoholism, COPD depression anxiety. Surgical history includes AAA repair laryngectomy 0920: Surgery paged. 0673: Spoke with Osvaldo, she requests we send him over to the clinic. Will discharge. HPI General Mode of arrival: ambulatory. Date/Time Provider Initiated Documentation: 05/11/23 09:09. Limitations to Documentation: no limitations. Information obtained by: patient, family, RN notes reviewed and old records reviewed. HPI Narrative: 78 year old male presents tot ED with a chief complaint of leaking G-tube, patient was here four days ago and had a 20 Fr Denny catheter placed after a Nasim G-tube was accidentally dislodged. They were unable to get ahold of General surgery so they opted to present to the ED. Patient reports it was leaking a little bit yesterday but leakage increased today. PMHX includes laryngeal cancer, hematoma, coronary artery disease, restless leg syndrome, hypothyroidism hypertension hyperlipidemia history of alcoholism, COPD depression anxiety. Surgical history includes AAA repair laryngectomy Related Data Home Medications Medication Instructions Recorded Confirmed omeprazole 20 mg capsule,delayed 20 mg feeding tube BID #90 caps 10/05/19 05/11/23 release melatonin 3 mg tablet 6 mg PO HS 10/29/19 05/11/23 rosuvastatin 40 mg tablet 40 mg feeding tube HS #90 tabs 12/14/19 05/11/23 acetylcysteine 100 mg/mL (10 %) 4 ml inhalation BID 07/05/20 05/11/23 solution ipratropium 0.5 mg-albuterol 3 mg 3 ml IN QID PRN shortness of 07/30/20 05/11/23 (2.5 mg base)/3 mL nebulization breath or wheezing #90 mL soln amlodipine 5 mg tablet 5 mg PO DAILY 10/04/20 05/11/23 Bifidobacterium infantis 4 mg 4 mg PO QPM 08/03/21 05/11/23 capsule (Align) ferrous sulfate 325 mg (65 mg 325 mg PO DAILY 08/05/21 05/11/23 iron) tablet (FeroSul) aspirin 81 mg tablet,delayed 81 mg PO DAILY 11/25/21 05/11/23 release (Adult Aspirin Regimen) ropinirole 1 mg tablet 1 mg PO BID 01/07/22 05/11/23 acetaminophen 500 mg tablet 1,000 mg PO BID PRN 03/05/22 05/11/23 (Tylenol Extra Strength) polyethylene glycol 3350 17 17 g PO DAILY PRN constipation 06/19/22 05/11/23 gram/dose oral powder (Miralax) acetylcysteine 600 mg capsule (NAC) 600 mg PO BID #60 caps 08/29/22 05/11/23 Vancomycin 250 mg NEB BID 28 days #280 mL 09/29/22 05/11/23 levothyroxine See Rx Instructions .Route 10/27/22 05/11/23 DIRECTED gabapentin 100 mg capsule 200 mg (2 x 100 mg) PO BID #360 12/10/22 05/11/23 caps sulfamethoxazole 200 5 ml PO DAILY 28 days #473 mL 12/11/22 05/11/23 mg-trimethoprim 40 mg/5 mL oral suspension nystatin 100,000 unit/gram topical 1 applic topical BID #60 grams 02/19/23 05/11/23 powder sertraline 50 mg tablet 50 mg PO DAILY #30 tabs 04/14/23 05/11/23 finasteride 5 mg tablet 5 mg PO DAILY #90 tabs 04/16/23 05/11/23 tamsulosin 0.4 mg capsule (Flomax) 0.4 mg PO DAILY #90 caps 04/16/23 05/11/23 apixaban 5 mg (74 tabs) tablets in 5 mg PO ONCE #74 dose pk 04/23/23 05/11/23 a dose pack (Eliquis DVT-PE Treat 30D Start) Previous Rx's Medication Instructions Recorded omeprazole 20 mg capsule,delayed 20 mg feeding tube BID #90 caps 10/05/19 release rosuvastatin 40 mg tablet 40 mg feeding tube HS #90 tabs 12/14/19 ipratropium 0.5 mg-albuterol 3 mg 3 ml IN QID PRN shortness of 07/30/20 (2.5 mg base)/3 mL nebulization breath or wheezing #90 mL soln acetylcysteine 600 mg capsule (NAC) 600 mg PO BID #60 caps 08/29/22 Vancomycin 250 mg NEB BID 28 days #280 mL 09/29/22 gabapentin 100 mg capsule 200 mg (2 x 100 mg) PO BID #360 12/10/22 caps sulfamethoxazole 200 5 ml PO DAILY 28 days #473 mL 12/11/22 mg-trimethoprim 40 mg/5 mL oral suspension nystatin 100,000 unit/gram topical 1 applic topical BID #60 grams 02/19/23 powder sertraline 50 mg tablet 50 mg PO DAILY #30 tabs 04/14/23 finasteride 5 mg tablet 5 mg PO DAILY #90 tabs 04/16/23 tamsulosin 0.4 mg capsule (Flomax) 0.4 mg PO DAILY #90 caps 04/16/23 apixaban 5 mg (74 tabs) tablets in 5 mg PO ONCE #74 dose pk 04/23/23 a dose pack (Eliquis DVT-PE Treat 30D Start) Allergies Allergy/AdvReac Type Severity Reaction Status Date / Time pollen extracts Allergy Mild Verified 05/11/23 09:21 Tetracyclines Allergy Unknown SKIN RASH Verified 05/11/23 09:21 General CHER: 4 PFSH All Active Problems (Updated 05/11/23 @ 09:44 by Elysia Griffin NP) Leaking percutaneous endoscopic gastrostomy (PEG) tube (Acute) Gastrostomy tube dysfunction (Acute) Ambulatory dysfunction (Acute) Leukocytosis (leucocytosis) (Acute) UTI (urinary tract infection) (Acute) Multiple subsegmental pulmonary emboli without acute cor pulmonale (Acute) C1 cervical fracture (Acute) Gastrostomy tube dysfunction (Acute) Advance care planning (Acute) Encounter for hospice care discussion (Acute) Unintentional weight loss of 10% body weight within 6 months (Acute) Dysuria (Acute) Malfunctioning jejunostomy tube (Acute) Need for follow-up by addiction social worker (Acute) Dysphagia (Acute) Weakness (Acute) Impaired instrumental activities of daily living (Acute) Plantar fascial fibromatosis (Acute) Feeding tube dysfunction (Acute) Sensorineural hearing loss (SNHL) of both ears (Acute) Otalgia of right ear (Acute) Neck pain on right side (Acute) Neck pain on right side (Acute) Full code status (Acute) Need for home health care (Acute) MRSA pneumonia (Acute) pt likely colonized Occlusion of right vertebral artery (Acute) Hypoxemia (Acute) Complication of feeding tube (Acute) Peripheral neuropathy (Acute 02/21/15) PAOD (peripheral arterial occlusive disease) (Acute) COPD (chronic obstructive pulmonary disease) (Chronic) G tube feedings (Acute) 20F 3.0cm 11/30/22. Routine change every 4 months. 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 Hypertension Tobacco use COPD (chronic obstructive pulmonary disease) Post herpetic neuralgia Hypothyroidism Hyperlipemia Depression Anxiety Anemia Conjunctivitis, chronic Surgical History S/P AAA (abdominal aortic aneurysm) repair Status post laryngectomy History of esophagogastroduodenoscopy (EGD) (~08/10/19) Daron Casper APRN [place] [facility] [place] hiatal hernia, GERD, Reyes's esophagitis, neuromuscular dysfunction History of laryngectomy Status post cardiac catheterization Status post cataract extraction and insertion of intraocular lens of right eye (07/12/18) History of tarsorrhaphy Status post cataract extraction and insertion of intraocular lens of left eye (04/30/12) 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) Sin-mullins button placed by Dr Elia Mcdonald, [facility] PROCEDURES RT/LEFT HEART CARD CATH COMPLETE LARYNGECTOMY Esophagoplasty EGD - MAC (07/06/17) Colonoscopy - MAC (12/22/16) History of radical laryngectomy Family History Nephew Throat cancer Maternal Cousin Cancer Social History Smoking/Tobacco Use Status: Former Tobacco Use Quit Date: 04/23/13 Tobacco: How many years used: 20 Smoking risk assessment performed?: Yes Alcohol Intake: never Drug use: Never Substance use type: does not use Housing: apartment Current gender identity: male Do you feel safe at home: Yes Do you feel safe in your relationship?: Yes Exam GI Inspection: other (3 way 20 fr [address] catheter in place, bilious drainage noted from insertion )
[2023-05-11 09:18] VITALS: BP 131/93; PULSE 80; RESP 18; TEMP 37.1; O2SAT 94
== END 2023-05-11 09:58 | disposition other institution (70) ==
PROVIDERS: Emergency Provider Registered Nurse Emergency; PCP Physician Assistant Medical
DX: K94.23 Gastrostomy malfunction (principal)
CPT/HCPCS: 43763; 99283

== ENCOUNTER → 2023-05-13 14:24 | Outpatient (BNVA) | payer MEDICARE, MEDICAID, SELFPAY | PROVIDERS: PCP Physician Assistant Medical; Referring Provider Physician Assistant Medical; Visit Provider Nurse Practitioner Gerontology | DX: R31.0 Gross hematuria (principal); I26.99 Other pulmonary embolism without acute cor pulmonale; Z79.01 Long term (current) use of anticoagulants | CPT/HCPCS: 81003; 99213 ==

== ENCOUNTER 2023-05-13 15:05 | Outpatient (REF) | payer MEDICARE, MEDICAID, SELFPAY ==
[2023-05-13 17:22] LABS: Bilirubin Moderate (Negative); Blood Large (Negative); Clarity Turbid (Clear); Glucose 100 mg/dL (Negative); Ketones Trace mg/dL (Negative); Leukocyte Esterase Negative (Negative); Nitrite Negative (Negative)
[2023-05-13 17:38] LABS: C & S Indicated? Yes; RBC >50 HPF (0-2)
== END 2023-05-13 15:06 | disposition home or self-care (01) ==
LOC: LBN 15:05
PROVIDERS: PCP Physician Assistant Medical; Visit Provider Nurse Practitioner Gerontology
DX: R31.9 Hematuria, unspecified (principal); R82.89 Other abnormal findings on cytological and histological examination of urine
CPT/HCPCS: 81003; 81015; 87086

== ENCOUNTER 2023-05-26 02:08 | Emergency (ER) | payer MEDICARE, MEDICAID, SELFPAY ==
--- NOTE | 2023-05-26 02:10 | W.ED.GENAD ---
Discharge Plan Discharge Details Chief Complaint: [facility]Medical Primary Care Provider: Nazia Chan ED Provider: Dwayne Delgado Crook Meds and New Rx's Prescriptions: No Action ropinirole 1 mg tablet 1 mg PO BID aspirin [Adult Aspirin Regimen] 81 mg tablet,delayed release (DR/EC) 81 mg PO DAILY acetaminophen [Tylenol Extra Strength] 500 mg tablet 1,000 mg PO BID PRN omeprazole 20 mg capsule,delayed release(DR/EC) 20 mg feeding tube BID Qty: 90 4RF acetylcysteine 100 mg/mL (10 %) solution 4 ml inhalation BID amlodipine 5 mg tablet 5 mg PO DAILY levothyroxine See Rx Instructions .ROUTE DIRECTED Rx Instructions: as directed; sertraline 50 mg tablet 50 mg PO DAILY Qty: 30 2RF Rx Instructions: decreased by PCP on 06/19/22 rosuvastatin 40 mg tablet 40 mg feeding tube HS Qty: 90 4RF ipratropium-albuterol 0.5 mg-3 mg(2.5 mg base)/3 mL solution for nebulization 3 ml IN QID PRN (Reason: shortness of breath or wheezing) Qty: 90 4RF Rx Instructions: increased dose/use treatment 4 times/day as needed NOT SENT polyethylene glycol 3350 [Miralax] 17 gram/dose powder 17 g PO DAILY PRN (Reason: constipation) Rx Instructions: 06/19/22 instructed by PCP to take 1/2 cap daily, may reduce to half cap three times per week if daily is too much acetylcysteine [NAC] 600 mg capsule 600 mg PO BID Qty: 60 12RF Vancomycin 250 mg NEB BID 28 Days Qty: 280 12RF Hold Instructions: takes every other 28 days Rx Instructions: 250mg vancomycin in 5 cc of sterile water for nebulization To be given every other month for 28 consecutive days gabapentin 100 mg capsule 200 mg PO BID Qty: 360 3RF sulfamethoxazole-trimethoprim 200-40 mg/5 mL suspension 5 ml PO DAILY 28 Days Qty: 473 9RF Rx Instructions: Take daily for 4 weeks, then off for 4 weeks, etc nystatin 100,000 unit/gram powder 1 applic topical BID Qty: 60 12RF finasteride 5 mg tablet 5 mg PO DAILY Qty: 90 3RF tamsulosin [Flomax] 0.4 mg capsule 0.4 mg PO DAILY Qty: 90 3RF melatonin 3 MG tablet 6 mg PO HS Align 4 mg Capsule 4 mg PO QPM ferrous sulfate [FeroSul] 325 mg (65 mg iron) tablet 325 mg PO DAILY Patient Comments: TAKE 1 TABLET VIA FEEDING TUBE ONCE DAILY [place] DVT-PE Treat 30D Start 5 mg (74 tabs) tablets,dose pack 5 mg PO ONCE Qty: 74 0RF HPI General Date/Time Provider Initiated Documentation: 05/26/23 02:10. HPI Narrative: MDM This is a normothermic and not tachycardic 78-year-old male who is G-tube dependent and status post total laryngopharyngectomy with multiple episodes of dysmotility requiring esophageal dilatations now with difficulty swallowing. 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 He is not having any shortness of breath or chest pain however given unclear dose of apixaban and prior history of PE will also obtain CT chest to assess for PE. His legs show no signs of DVT. No pain or proportion to suggest necrotizing soft tissue infection. No cough nor difficulty breathing to suggest pneumonia. Handling secretions so no indications for emergent airway intervention. Will attempt to provide patient with his gabapentin and ropinirole in the emergency department via his G-tube. No abdominal pain to suggest ruptured AAA. Similarly bilateral lower extremities warm well-perfused. No pain or proportion to suggest necrotizing soft tissue infection. Will also treat systemically with 2 mg of IV morphine and provide 500 cc crystalloid fluid bolus. Unfortunately barium swallow results are not available at this hour. Will plan on providing subcutaneous enoxaparin at 1 mg/kg to prevent PE. I considered ruptured AAA however patient is well-perfused distal extremities and he reports that his cramping lower extremity pain is similar to his chronic daily pain. 3 AM CBC shows mild leukocytosis improved compared to prior. Mild macrocytic anemia not new compared to prior. No thrombocytopenia. We unfortunately do not have liquid gabapentin or ropinirole however I have asked nurses to attempt to make a slurry of these medications to pass through the patient's G-tube. Patient metabolic panel showing very mild hypokalemia with a serum potassium of 3.2. No anion gap. Mild hyperglycemia but mildly elevated bicarbonate??not consistent with DKA. No RAIZA. 3:51 AM Patient was unwilling to tolerate his CT soft tissue neck as he had trouble with his restless legs despite receiving his ropinirole his gabapentin and a total of 3 mg of morphine. I have reached out to the [place] [facility]. 4:20 AM I spoke with Dr. Alfonso Sun from GI at [facility]. He advised that he could not arrange for any emergent upper endoscopy for the patient. He was going to place an urgent order for an endoscopy. He requested that the patient and his family call the clinic in the morning after 8 AM at [phone] to arrange for endoscopy. Will meet with the patient and his . If he is having worsening pain then well plan on hospitalizing locally for pain control. Otherwise we will have them go home and follow-up with endoscopy at [facility] later this morning. Patient is having increasing pain. Given his worsening pain is certainly possible that the absence of ropinirole and gabapentin have caused him to have additional pain not adequately treated by repeat doses. I provided the patient with 50 mcg of fentanyl. Will send back over to CT scan. Will also complete CT abdomen given history of AAA.Per neurology notes from last month patient could tolerate higher dose of gabapentin for restless legs. He had previously been increased to 300 mg 3 times daily. 6 AM Patient's pain well-controlled. He is interested in getting some rest before he goes down to department later this morning. His CT chest and abdomen were read as showing no obvious acute abnormalities. 6:37 AM Patient and his resting. Read on CT neck still pending. Will sign patient out to oncoming daytime provider. If his pain feels improved his best bet at getting an esophageal dilation may be through his primary care appointment which is scheduled for later this morning. It may also be reasonable to call GI after 8 AM to attempt to arrange for endoscopy later today. Ultimately patient will benefit from a better pill pressure to ensure that he is able to take his medications as his has been using a mortar and pestle. 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 Patient and family have been in touch with GI at [facility] as patient has been vomiting up his medications. He last underwent esophageal dilatation in November of this year. He reports cramping leg pain as a result not having his gabapentin nor his ropinirole which he takes for restless legs. is not sure when he last was able to take his dose of apixaban. No fevers chest pain shortness of breath difficulty breathing nor abdominal pain. Exam General: Chronically ill-appearing in no acute distress speaking in complete sentences. Short stature. Borderline cachectic. Severe kyphosis lumbar spine. Head: Normocephalic, atraumatic. Eye: Extraocular eye movements intact. No conjunctival injection. No scleral icterus. Left eye with opacity of her cornea. Ear, nose, mouth, throat: Course of the facial features. Handling secretions normally. Speaking with external device which can be difficult to understand at times. Neck: Trachea midline. Cardiovascular: Well-perfused distal extremities. Regular rate and rhythm. Respiratory: Nonlabored respiration. Clear lungs bilaterally. Gastrointestinal: Nondistended abdomen. Soft nontender. G-tube in place. Musculoskeletal: No edema. Moving all 4 extremities spontaneously. No calf tenderness bilaterally. No palpable cords. Skin: Normal for age and race, grossly normal temperature and turgor. No acute rash. Neurologic: Alert and appropriate, no apparent acute deficits. GCS 15. Psychiatric: Mood and manner are appropriate. Grooming and personal hygiene are appropriate. Related Data Home Medications Medication Instructions Recorded Confirmed omeprazole 20 mg capsule,delayed 20 mg feeding tube BID #90 caps 10/05/19 05/26/23 release melatonin 3 mg tablet 6 mg PO HS 10/29/19 05/26/23 rosuvastatin 40 mg tablet 40 mg feeding tube HS #90 tabs 12/14/19 05/26/23 acetylcysteine 100 mg/mL (10 %) 4 ml inhalation BID 07/05/20 05/26/23 solution ipratropium 0.5 mg-albuterol 3 mg 3 ml IN QID PRN shortness of 07/30/20 05/26/23 (2.5 mg base)/3 mL nebulization breath or wheezing #90 mL soln amlodipine 5 mg tablet 5 mg PO DAILY 10/04/20 05/26/23 Bifidobacterium infantis 4 mg 4 mg PO QPM 08/03/21 05/26/23 capsule (Align) ferrous sulfate 325 mg (65 mg 325 mg PO DAILY 08/05/21 05/26/23 iron) tablet (FeroSul) aspirin 81 mg tablet,delayed 81 mg PO DAILY 11/25/21 05/26/23 release (Adult Aspirin Regimen) ropinirole 1 mg tablet 1 mg PO BID 01/07/22 05/26/23 acetaminophen 500 mg tablet 1,000 mg PO BID PRN 03/05/22 05/26/23 (Tylenol Extra Strength) polyethylene glycol 3350 17 17 g PO DAILY PRN constipation 06/19/22 05/26/23 gram/dose oral powder (Miralax) acetylcysteine 600 mg capsule (NAC) 600 mg PO BID #60 caps 08/29/22 05/26/23 Vancomycin 250 mg NEB BID 28 days #280 mL 09/29/22 05/26/23 levothyroxine See Rx Instructions .Route 10/27/22 05/26/23 DIRECTED gabapentin 100 mg capsule 200 mg (2 x 100 mg) PO BID #360 12/10/22 05/26/23 caps sulfamethoxazole 200 5 ml PO DAILY 28 days #473 mL 12/11/22 05/26/23 mg-trimethoprim 40 mg/5 mL oral suspension nystatin 100,000 unit/gram topical 1 applic topical BID #60 grams 02/19/23 05/26/23 powder sertraline 50 mg tablet 50 mg PO DAILY #30 tabs 04/14/23 05/26/23 finasteride 5 mg tablet 5 mg PO DAILY #90 tabs 04/16/23 05/26/23 tamsulosin 0.4 mg capsule (Flomax) 0.4 mg PO DAILY #90 caps 04/16/23 05/26/23 apixaban 5 mg (74 tabs) tablets in 5 mg PO ONCE #74 dose pk 04/23/23 05/26/23 a dose pack (E[employer]is DVT-PE Treat 30D Start) Previous Rx's Medication Instructions Recorded omeprazole 20 mg capsule,delayed 20 mg feeding tube BID #90 caps 10/05/19 release rosuvastatin 40 mg tablet 40 mg feeding tube HS #90 tabs 12/14/19 ipratropium 0.5 mg-albuterol 3 mg 3 ml IN QID PRN shortness of 07/30/20 (2.5 mg base)/3 mL nebulization breath or wheezing #90 mL soln acetylcysteine 600 mg capsule (NAC) 600 mg PO BID #60 caps 08/29/22 Vancomycin 250 mg NEB BID 28 days #280 mL 09/29/22 gabapentin 100 mg capsule 200 mg (2 x 100 mg) PO BID #360 12/10/22 caps sulfamethoxazole 200 5 ml PO DAILY 28 days #473 mL 12/11/22 mg-trimethoprim 40 mg/5 mL oral suspension nystatin 100,000 unit/gram topical 1 applic topical BID #60 grams 02/19/23 powder sertraline 50 mg tablet 50 mg PO DAILY #30 tabs 04/14/23 finasteride 5 mg tablet 5 mg PO DAILY #90 tabs 04/16/23 tamsulosin 0.4 mg capsule (Flomax) 0.4 mg PO DAILY #90 caps 04/16/23 apixaban 5 mg (74 tabs) tablets in 5 mg PO ONCE #74 dose pk 04/23/23 a dose pack ([employer] DVT-PE Treat 30D Start) Allergies Allergy/AdvReac Type Severity Reaction Status Date / Time pollen extracts Allergy Mild Verified 05/26/23 02:27 Tetracyclines Allergy Unknown SKIN RASH Verified 05/26/23 02:27 General CHER: 4 PFSH All Active Problems (Updated 05/14/23 @ 13:32 by Nichole Dewey DNP) Gross hematuria (Acute) Leaking percutaneous endoscopic gastrostomy (PEG) tube (Acute) Gastrostomy tube dysfunction (Acute) Ambulatory dysfunction (Acute) Leukocytosis (leucocytosis) (Acute) UTI (urinary tract infection) (Acute) Multiple subsegmental pulmonary emboli without acute cor pulmonale (Acute) C1 cervical fracture (Acute) Gastrostomy tube dysfunction (Acute) Advance care planning (Acute) Encounter for hospice care discussion (Acute) Unintentional weight loss of 10% body weight within 6 months (Acute) Dysuria (Acute) Malfunctioning jejunostomy tube (Acute) Need for follow-up by transition social worker (Acute) Dysphagia (Acute) Weakness (Acute) Impaired instrumental activities of daily living (Acute) Plantar fascial fibromatosis (Acute) Feeding tube dysfunction (Acute) Sensorineural hearing loss (SNHL) of both ears (Acute) Otalgia of right ear (Acute) Neck pain on right side (Acute) Neck pain on right side (Acute) Full code status (Acute) Need for home health care (Acute) MRSA pneumonia (Acute) pt likely colonized Occlusion of right vertebral artery (Acute) Hypoxemia (Acute) Complication of feeding tube (Acute) Peripheral neuropathy (Acute 02/21/15) PAOD (peripheral arterial occlusive disease) (Acute) COPD (chronic obstructive pulmonary disease) (Chronic) G tube feedings (Acute) 20F 3.0cm 11/30/22. Routine change every 4 months. 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 Hypertension Tobacco use COPD (chronic obstructive pulmonary disease) Post herpetic neuralgia Hypothyroidism Hyperlipemia Depression Anxiety Anemia Conjunctivitis, chronic Surgical History S/P AAA (abdominal aortic aneurysm) repair Status post laryngectomy History of esophagogastroduodenoscopy (EGD) (~08/10/19) Daron Casper APRN @ [facility]: hiatal hernia, GERD, Reyes's esophagitis, neuromuscular dysfunction History of laryngectomy Status post cardiac catheterization Status post cataract extraction and insertion of intraocular lens of right eye (07/12/18) History of tarsorrhaphy Status post cataract extraction and insertion of intraocular lens of left eye (04/30/12) 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 PROCEDURES RT/LEFT HEART CARD CATH COMPLETE LARYNGECTOMY Esophagoplasty EGD - MAC (07/06/17) Colonoscopy - MAC (12/22/16) History of radical laryngectomy Family History Nephew Throat cancer Maternal Cousin Cancer Social History Smoking/Tobacco Use Status: Former Tobacco Use Quit Date: 04/23/13 Tobacco: How many years used: 20 Smoking risk assessment performed?: Yes Alcohol Intake: never Drug use: Never Substance use type: does not use Housing: apartment Current gender identity: male Do you feel safe at home: Yes Do you feel safe in your relationship?: Yes
[2023-05-26 02:12] VITALS: PULSE 92; RESP 18; TEMP 37; O2SAT 95
[2023-05-26 02:23] VITALS: BP 130/100; PULSE 92; RESP 18; TEMP 37; O2SAT 95
[2023-05-26 02:25] VITALS: RESP 18
[2023-05-26 02:47] LABS: Abs Immature Grans 0.06 10^3/uL (0.0-0.06); Absolute Basophil Count 0.16 10^3/uL (0.0-0.2); Absolute Eosinophil Count 0.39 10^3/uL (0.0-0.7); Absolute Lymphocyte Count 1.11 10^3/uL (1.2-3.4); Absolute Monocyte Count 0.95 10^3/uL (0.1-0.8); Basophils % 1.2; Eosinophils % 2.9; HCT 37.8 % (40.0-50.0); HGB 12.2 g/dL (13.5-17.5); Immature Grans % 0.4; Lymphocytes % 8.2; MCH 32.6 pg (27.0-33.0); MCHC 32.3 % (32.0-36.0); MCV 101 fL (80-95); MPV 9.9 fL (8.0-11.0); Neutrophils % 80.3; Platelet Count 278 10^3/uL (130-400); RBC 3.74 10^6/uL (4.36-5.78); RDW 14.4 % (11.8-14.1); WBC 13.58 10^3/uL (4.4-10.8)
[2023-05-26 02:55] LABS: Anion Gap 9.8 mmol/L (3-11); BUN 33 mg/dL (7-18); CO2 32.2 mmol/L (21.0-32.0); CREATININE 0.9 mg/dL (0.70-1.30); Calcium 9.9 mg/dL (8.5-10.1); Chloride 100 mmol/L (98-107); Estimated GFR 87.96 (mL/min/1.73m2); Glucose 115 mg/dL (74-106); Potassium 3.2 mmol/L (3.5-5.1); Sodium 142 mmol/L (136-145)
[2023-05-26] MEDS: Normal Saline 500 ML IV (03:05)
[2023-05-26] MEDS: MORPHine 4 MG/ML SYR 2 MG IVP ×2 (03:06→03:40)
[2023-05-26] MEDS: Gabapentin 300 MG CAP 200 MG PO (03:21)
[2023-05-26] MEDS: rOPINIRole 0.5 MG TAB 1 MG PO (03:44)
[2023-05-26] MEDS: fentaNYL 100 MCG/2 ML VIAL 50 MCG IVP (04:25)
[2023-05-26 04:43] VITALS: BP 108/85; PULSE 85; RESP 18; O2SAT 95
--- NOTE | 2023-05-26 04:45 | DI.CT_ITS ---
Exam(s) CT CHEST/ABD/PEL W EXAM: CT CHEST/ABD/PEL W CLINICAL HISTORY: Difficulty swallowing abdominal pain history of AA TECHNIQUE: Imaging Protocol: Axial computed tomography images with coronal and sagittal reformatted images were created and reviewed CONTRAST MATERIAL: Intravenous: Omnipaque 350 contrast volume:60 mL Oral: No COMPARISON: CT CT THORAX ABD/PEL CTA from 07/01/[address] CHEST PE CTA from 06/09/[address] CHEST PE CTA from 04/21/2023 FINDINGS: The examination is limited due to patient motion artifact. CHEST: Tracheobronchial tree: Tracheostomy. Patent where visualized. There are small secretions seen in the mid trachea. Pulmonary parenchyma: Centrilobular emphysematous changes are present. There is biapical scarring pr esent. There is a persistent opacity seen in the left lung base. No new infiltrates are seen. Pulm onary fibrotic changes are present. Visualized thyroid gland: Not visualized on this examination. Mediastinum and Sonali: There is stable mildly prominent lymph nodes in the mediastinum. The esophagus is unremarkable. Pleura: No effusion or pneumothorax. Heart: The heart is not dilated. Coronary artery calcification and/or stents are present. No pericar dial effusion. Pulmonary arteries: The pulmonary arteries are inadequately opacified for evaluation of pulmonary emb kandy. This is due to the timing of the bolus. Aorta: There is a stent in the descending thoracic aorta extending into the upper abdomen. Atheroscl erosis is present. Lymph nodes: No significant axillary lymph nodes are seen. Soft tissues: Unremarkable. Bones:Within normal limits for the patient's age. The medial left clavicle shows destructive changes and or resection. Stable lower thoracic and upper lumbar compression fracture deformities. No acut e abnormality. ABDOMEN: Liver: Normal density. No measurable mass. Portal, Superior Mesenteric, and Splenic Veins: Unremarkable. Gallbladder and Biliary Tract: Gallstones are present. No significant biliary ductal dilatation. Pancreas: There is a stable appearance of the pancreas. There is mild pancreatic atrophy. Spleen: Normal. Adrenals: No masses seen. Kidneys: Normal size, contour and axis. No radiodense stones or obstructive uropathy. Stable simple r ight renal cyst. Abdominal Aorta: There is an endovascular stent extending the entire length of the aorta and into the proximal common iliac arteries bilaterally. There is a [place] infrarenal abdominal aortic aneurysm. Atherosclerosis is present. Due to the bolus timing, aortoiliac stent graft and artery evaluation is limited.. Bowel: There are diverticula seen in the colon but no evidence of acute diverticulitis. There is no evidence of bowel wall thickening or obstruction. There is a PEG tube in good position. No evidence of appendicitis. Peritoneal Cavity: No ascites, collection or mesenteric inflammatory response. No free air. Lymph Nodes: Within normal limits. Bones: Within normal limits for the patient's age. No aggressive osseous lesions are seen. Soft Tissues: Unremarkable. PELVIS: Bladder: There are multiple bladder diverticula noted. Calcifications are seen within the urinary bl adder in the diverticula consistent with stones. Reproductive Organs: Unremarkable as visualized. Lymph Nodes: Within normal limits. Bones: Within normal limits. IMPRESSION: 1. No acute pulmonary process. 2. Stable chronic findings in the chest, abdomen and pelvis as described above. 3. No acute abdominal or pelvic process. RADIATION DOSE DELIVERED: Total DLP DATA REPOSITORY: All CT scans at this facility are submitted to the National Radiology Data Registry (NRDR) Dose Index Registry (DIR) with the [employer] ([employer]). RADIATION OPTIMIZATION: All CT scans at this facility use at least one of these dose optimization te chniques: automated exposure control; mA and/or kV adjustment per patient size (includes targeted exa ms where dose is matched to clinical indication); or iterative reconstruction.
--- NOTE | 2023-05-26 04:45 | DI.CT_ITS ---
Exam(s) CT NECK W EXAM: CT NECK W CLINICAL HISTORY: Difficulty swallowing history of carcinoma. TECHNIQUE: Imaging Protocol: Axial computed tomography images with coronal and sagittal reformatted images were created and reviewed. CONTRAST MATERIAL: Intravenous: Omnipaque 350 Contrast volume:100mL COMPARISON: CT CT CAROTID NECK CTA from 08/03/[address] NECK W from 09/22/2022 FINDINGS: The examination is limited due to patient motion artifact. Head: Note is made of a chronic left subdural fluid collection measuring 6 mm in thickness. There is no midline shift or mass effect. Orbits and orbital soft tissues: The left orbit is unchanged with hyperdense material seen which may reflect retinal detachment. Visualized paranasal sinuses: Within normal limits. Nasopharynx: Within normal limits. Oropharynx: Within normal limits. Hypopharynx: Within normal limits. There is stable mild narrowing at the pharyngeal esophageal junct ion. Larynx: Status post tracheostomy. No evidence of recurrent or residual mass. Stable soft tissue sc arring in stranding are seen which are likely postsurgical. Retropharyngeal space: Within normal limits. Parotids/submandibular: The submandibular glands are not visualized. The parotid glands are unremar kable. Thyroid gland: The thyroid gland is absent. Lymphadenopathy: There is scattered lymph nodes seen along the level one to level three all measurin g less than 8 mm in short axis diameter which are physiologic in nature. Trachea: Status post tracheostomy. There is again seen a small tracheal diverticulum on the right ju st superior to the thoracic inlet. Lung apices: Emphysematous changes are seen in the lung apices. Biapical scarring is present. Plea se refer to the CT scan of the chest from the same day for complete details. Bones: Within normal limits for the patient's age. No aggressive osseous lesions are identified. Carotids/Jugular: Within normal limits. Soft tissues: Within normal limits. IMPRESSION: 1. Postsurgical changes in the neck seen. No evidence of recurrent or residual tumor. 2. Relative narrowing at the pharyngeal soft tissue a junction which could represent an area of steno sis. Upper endoscopy or barium swallow study may be obtained for further evaluation. RADIATION DOSE DELIVERED: Total DLP Total DLP DATA REPOSITORY: All CT scans at this facility are submitted to the National Radiology Data Registry (NRDR) Dose Index Registry (DIR) with the [employer] (ACR). RADIATION OPTIMIZATION: All CT scans at this facility use at least one of these dose optimization te chniques: automated exposure control; mA and/or kV adjustment per patient size (includes targeted exa ms where dose is matched to clinical indication); or iterative reconstruction.
[2023-05-26] MEDS: Omnipaque 350 MG/ML 100 ML BTL IJ (05:35)
[2023-05-26] MEDS: Normal Saline - Diluent 50 ML VIAL IJ (05:36)
--- NOTE | 2023-05-26 06:00 | DI.VRAD_ITS ---
PROCEDURE INFORMATION: Exam: CT Chest With Contrast; Diagnostic Exam date and time: 05/26/2023 5:06 AM Age: 78 years old Clinical indication: Abdominal tenderness; Other: Difficulty swallowing; Prior surgery; Surgery date: 6+ months; Surgery type: HX aaa TECHNIQUE: Imaging protocol: Diagnostic computed tomography of the chest with contrast. 3D rendering (Not supervised by radiologist): MIP and/or 3D reconstructed images were created by the technologist. Contrast material: OMNIPAQUE 350; Contrast volume: 100 ml; Contrast route: INTRAVENOUS (IV); COMPARISON: CT NECK CHEST W 05/26/2023 3:16 AM FINDINGS: Trachea: Tracheostomy. Lungs: Chronic appearing fibrotic changes in the lower lung zones and diffuse emphysema without definite acute pulmonary abnormality. Pleural spaces: No pleural effusion or pneumothorax. Heart: No pericardial effusion. Coronary arteries: Severe atherosclerotic coronary artery calcification and/or coronary artery stent artifact, most prominent in left main coronary artery. Lymph nodes: No axillary or mediastinal adenopathy. Vasculature: Extensive atherosclerotic calcification of tortuous thoracic aorta and origins of great vessels. Previous endovascular stenting distal thoracic aorta and abdominal aorta. Bones/joints: Multiple chronic vertebral compression deformities, most severely involving T12. These appear similar to 07/01/2021 exam. Soft tissues: No acute abnormality. IMPRESSION: No obvious acute intrathoracic abnormality. Chronic findings as reported above. PROCEDURE INFORMATION: Exam: CT Abdomen And Pelvis With Contrast Exam date and time: 05/26/2023 5:06 AM Age: 78 years old Clinical indication: Abdominal tenderness; Other: Difficulty swallowing; Prior surgery; Surgery date: 6+ months; Surgery type: HX aaa TECHNIQUE: Imaging protocol: Computed tomography of the abdomen and pelvis with contrast. 3D rendering (Not supervised by radiologist): MIP and/or 3D reconstructed images were created by the technologist. Contrast material: OMNIPAQUE 350; Contrast volume: 60 ml; Contrast route: INTRAVENOUS (IV); COMPARISON: CT THORAX ABD/PEL CTA 07/01/2021 11:38 AM FINDINGS: Tubes, catheters and devices: A percutaneous gastrostomy tube is present. No evidence of bowel obstruction. Liver: No acute abnormality or suspicious hepatic mass. Gallbladder and bile ducts: There are a few very small calcified stones in the gallbladder. No gallbladder wall thickening or biliary duct dilation. Pancreas: No acute abnormality or obvious pancreatic duct dilation. Spleen: Normal size; no suspicious masses. Adrenal glands: No suspicious adrenal masses. Kidneys and ureters: Symmetric renal cortical enhancement without hydronephrosis. A small cyst is present at the lower pole of the right kidney. Stomach and bowel: See Tubes, catheters and devices finding. Appendix: No evidence of appendicitis. Intraperitoneal space: No free intraperitoneal air, significant ascites, or localized fluid collections. Vasculature: Status post endovascular stent therapy for large abdominal aortic aneurysm. Status post bilateral renal artery stent placement. Status post celiac artery and SMA stent placement. Due to contrast bolus timing, aortoiliac stent graft and visceral arteries are not optimally evaluated on this exam. Lymph nodes: No enlarged lymph nodes. Urinary bladder: No bladder wall thickening identified. However, there are multiple bladder diverticula posteriorly. Reproductive: Visualized portions show no obvious acute abnormality. Bones/joints: Incidental note of a few sacral Tarlov cysts similar to 07/01/2021. Soft tissues: Unremarkable. IMPRESSION: No convincing evidence of acute abnormality within the abdomen or pelvis. Multiple chronic and/or nonacute findings as reported above. Dictated and Authenticated by: Chan Petit MD. Ordering:JUAN Rice MD
--- NOTE | 2023-05-26 07:25 | ED.PROG_ITS ---
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 Signed out awaiting CT neck results. Patient with appointment at primary care at [facility] today. 0800-CT of neck shows stenosis but no new mass. Results discussed with patient and . They are eager to be discharged so patient may get to his primary care appointment. I discussed with him that I have not reached back out to GI yet. I will attempt to do so, but if they do not hear about an appointment they should call GI themselves to arrange follow-up. [id number] with Loly the urgent receptionist scheduler at . They will reach out to patient to arrange follow-up in the next week Sign Out Sign Out Data: Sign Out Comment: Please follow-up read from CT report. If patient has reassuring CT read and wants to be discharged this is certainly appropriate as his outpatient primary care follow-up later today. If he remains in the emergency department after 8 AM it would be best to [place] [facility] [place] the number from my note to determine whether or not patient may have access to same-day urgent esophageal dilatation today. Patient does have a primary care appointment later this morning and will likely benefit from primary care follow- up to best coordinate his care moving forward. Last updated by Dwayne Delgado MD at 05/26/23 06:41 Discharge Plan Disposition Patient Disposition: Home Condition: Improving Discharge Details Clinical Impression: Complication of feeding tube, Esophageal stricture Primary Care Provider: Nazia hCan ED Provider: Catrachita Cardozo Home Meds and New Rx's Prescriptions: No Action ropinirole 1 mg tablet 1 mg PO BID aspirin [Adult Aspirin Regimen] 81 mg tablet,delayed release (DR/EC) 81 mg PO DAILY acetaminophen [Tylenol Extra Strength] 500 mg tablet 1,000 mg PO BID PRN omeprazole 20 mg capsule,delayed release(DR/EC) 20 mg feeding tube BID Qty: 90 4RF acetylcysteine 100 mg/mL (10 %) solution 4 ml inhalation BID amlodipine 5 mg tablet 5 mg PO DAILY levothyroxine See Rx Instructions .ROUTE DIRECTED Rx Instructions: as directed; sertraline 50 mg tablet 50 mg PO DAILY Qty: 30 2RF Rx Instructions: decreased by PCP on 06/19/22 rosuvastatin 40 mg tablet 40 mg feeding tube HS Qty: 90 4RF ipratropium-albuterol 0.5 mg-3 mg(2.5 mg base)/3 mL solution for nebulization 3 ml IN QID PRN (Reason: shortness of breath or wheezing) Qty: 90 4RF Rx Instructions: increased dose/use treatment 4 times/day as needed NOT SENT polyethylene glycol 3350 [Miralax] 17 gram/dose powder 17 g PO DAILY PRN (Reason: constipation) Rx Instructions: 06/19/22 instructed by PCP to take 1/2 cap daily, may reduce to half cap three times per week if daily is too much acetylcysteine [NAC] 600 mg capsule 600 mg PO BID Qty: 60 12RF Vancomycin 250 mg NEB BID 28 Days Qty: 280 12RF Hold Instructions: takes every other 28 days Rx Instructions: 250mg vancomycin in 5 cc of sterile water for nebulization To be given every other month for 28 consecutive days gabapentin 100 mg capsule 200 mg PO BID Qty: 360 3RF sulfamethoxazole-trimethoprim 200-40 mg/5 mL suspension 5 ml PO DAILY 28 Days Qty: 473 9RF Rx Instructions: Take daily for 4 weeks, then off for 4 weeks, etc nystatin 100,000 unit/gram powder 1 applic topical BID Qty: 60 12RF finasteride 5 mg tablet 5 mg PO DAILY Qty: 90 3RF tamsulosin [Flomax] 0.4 mg capsule 0.4 mg PO DAILY Qty: 90 3RF melatonin 3 MG tablet 6 mg PO HS Align 4 mg Capsule 4 mg PO QPM ferrous sulfate [FeroSul] 325 mg (65 mg iron) tablet 325 mg PO DAILY Patient Comments: TAKE 1 TABLET VIA FEEDING TUBE ONCE DAILY [place] DVT-PE Treat 30D Start 5 mg (74 tabs) tablets,dose pack 5 mg PO ONCE Qty: 74 0RF Discharge Instructions Instructions: Esophageal Stricture (ED) Additional Instructions: Please follow-up with primary care today as planned. You would likely benefit from GI evaluation and esophageal dilatation. Referrals: Nazia Chan [Primary Care Provider] - Discharge Data Discharge Physician: Catrachita Cardozo
--- NOTE | 2023-05-26 08:01 | DI.VRAD_ITS ---
PROCEDURE INFORMATION: Exam: CT Neck With Contrast Exam date and time: 05/26/2023 5:11 AM Age: 78 years old Clinical indication: Dysphagia / difficulty swallowing; Prior surgery; Surgery date: 6+ months; Surgery type: Trach TECHNIQUE: Imaging protocol: Computed tomography of the neck with contrast. Contrast material: OMNIPAQUE 350; Contrast volume: 100 ml; Contrast route: INTRAVENOUS (IV); COMPARISON: 1. CT NECK CHEST W 05/26/2023 3:[address] NECK W 09/22/2022 2:41 PM FINDINGS: Orbital cavities: There are bilateral ocular lens replacements. A large amount of sharply circumscribed mildly hyperdensity is again seen within the vitreous/posterior chamber of the left globe, not significantly changed, suspicious for retinal detachment. Mastoid air cells: Well-aerated. Pharynx: The nasopharynx, oropharynx, and hypopharynx are patent, without exophytic mass. Again seen is relative luminal narrowing in the region of the pharyngoesophageal junction, superior to which there is gaseous distention of the hypopharynx. Surrounding soft tissue scarring and fat stranding are again seen, not significantly changed, presumed to be postsurgical/treatment related. Stenosis could account for this appearance. Larynx: Again noted to be surgically absent. Prevertebral and retropharyngeal spaces: Unremarkable. Salivary glands: Symmetric mild atrophy of the parotid glands. The submandibular glands are again not identified. Thyroid: Absent, as seen previously. Lymph nodes: Stable mildly prominent left submandibular lymph nodes, not pathologically enlarged by size criteria. No newly enlarged lymph nodes. 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 Trachea: Patent and normal in caliber. A tracheostomy is noted. There is a tiny left-sided tracheal diverticulum just superior to the thoracic inlet. Lungs: Moderately advanced centrilobular emphysema. Biapical pleuroparenchymal scarring with associated calcifications. Bones/joints: Corticated lucent defects are again seen in the anterior arch and in the right and left posterior arches of C1 consistent with chronic ununited fractures. There are degenerative changes throughout the osseous structures, most advanced in the cervical spine. Grade 1 anterolisthesis of C4 on C5. No air-fluid levels in the paranasal sinuses. Opacification of a posterior left ethmoid air cells. The frontal sinuses are hypoplastic. Soft tissues: No new/acute abnormality. IMPRESSION: 1. Extensive postsurgical changes in the neck. There is relative luminal narrowing at the pharyngoesophageal junction which could represent an area of stenosis. This would be better assessed with a barium swallow study or upper endoscopy. 2. Multiple additional stable chronic findings are discussed in the body of the report. Dictated and Authenticated by: Beatriz Harden MD. Ordering:JUAN Rice MD
[2023-05-26 08:31] VITALS: BP 148/84; PULSE 88; TEMP 36.6; O2SAT 93
== END 2023-05-26 08:38 | disposition home or self-care (01) ==
PROVIDERS: Emergency Medicine; Emergency Provider Emergency Medicine Emergency Medical Services; PCP Physician Assistant Medical
DX: K94.29 Other complications of gastrostomy (principal); K22.2 Esophageal obstruction; I25.10 Atherosclerotic heart disease of native coronary artery without angina pectoris; I10 Essential (primary) hypertension; E03.9 Hypothyroidism, unspecified; J44.9 Chronic obstructive pulmonary disease, unspecified; E78.5 Hyperlipidemia, unspecified; D72.829 Elevated white blood cell count, unspecified; E87.6 Hypokalemia; Z93.0 Tracheostomy status; Z85.21 Personal history of malignant neoplasm of larynx; Z79.899 Other long term (current) drug therapy
CPT/HCPCS: 00123; 70491; 74177; 80048; 96361; 96374; 96375; 99285; 71260; 85025; 99284; J2270; J3010; J3490

== ENCOUNTER → 2023-05-27 03:16 | Outpatient (CLI) | payer MEDICARE, MEDICAID, SELFPAY ==
--- NOTE | 2023-05-27 07:30 | DI.CT_ITS ---
Exam(s) CT ABDOMEN PELVIS WO/W EXAM: CT ABDOMEN PELVIS WO/W CLINICAL HISTORY: gross hematuria,R31.9. TECHNIQUE: Imaging Protocol: Axial computed tomography images with coronal and sagittal reformatted images were created and reviewed. Images were performed from the lung bases through the ischial tuberosities before IV contrast and fol lowing IV contrast using a 70 second delay, followed by 7 minutes delayed images. CONTRAST MATERIAL: Intravenous: Omnipaque 350 Contrast volume:100 cc Oral:Residual contrast in colon from previous examination. COMPARISON: CT CT CHEST/ABD/PEL W from 05/26/2023 FINDINGS: ABDOMEN: Noncontrast examination limited since there is residual contrast from the previous day's examination. Lung Bases: Interstitial changes. Liver: Normal density. No measurable mass. Gallbladder and biliary tract: Gallstones. Stable mild biliary dilatation. Pancreas: Normal density, no abnormal calcifications or inflammatory process. Spleen: Normal. Kidneys: Normal size, contour and axis. Symmetric nephrograms and pyelograms. Small bilateral calci fications could be vascular. Small cyst lower pole right kidney. No follow-up recommended. No susp icious masses seen. Adrenal glands: No masses seen. Lymph nodes: Within normal limits. Abdominal Aorta: Extensive stents in the aorta, renal arteries celiac axis and SMA as well as bilater al iliac arteries. No change inferior aortic aneurysm. No evidence of occlusion or significant sten osis.. Soft tissues: Unremarkable. PELVIS: Bladder: Residual contrast present in urinary bladder from previous day's examination. Multiple blad buck diverticula. No gross wall thickening. No evidence of a mass.Tiny calculi in dependent portions of the urinary bladder within posterior diverticula. Bowel: Peg tube. No obstruction or bowel wall thickening. Appendix normal. Peritoneal cavity: No ascites, collection or mesenteric inflammatory response. Soft tissues: Bones: Old T12 and L1 compression fractures. Scoliosis. Reproductive organs: Unremarkable for age.. IMPRESSION: No suspicious renal mass. No collecting system filling defects.. Multiple bladder diverticula. Tiny bladder calculi. No bladder mass visible. RADIATION DOSE DELIVERED: Total DLP DATA REPOSITORY: All CT scans at this facility are submitted to the National Radiology Data Registry (NRDR) Dose Index Registry (DIR) with the [employer] (A[employer]). RADIATION OPTIMIZATION: All CT scans at this facility use at least one of these dose optimization te chniques: automated exposure control; mA and/or kV adjustment per patient size (includes targeted exa ms where dose is matched to clinical indication); or iterative reconstruction.
[2023-05-27] MEDS: Normal Saline - Diluent 50 ML VIAL IJ (14:12)
[2023-05-27] MEDS: Omnipaque 350 MG/ML 100 ML BTL IJ (14:13)
== END ==
PROVIDERS: PCP Physician Assistant Medical; Visit Provider Nurse Practitioner Gerontology
DX: R31.9 Hematuria, unspecified (principal); N32.3 Diverticulum of bladder
CPT/HCPCS: 74178; J3490

== ENCOUNTER → 2023-05-29 13:31 | Outpatient (BNVA) | payer MEDICARE, MEDICAID, SELFPAY | PROVIDERS: PCP Physician Assistant Medical; Referring Provider Physician Assistant Medical; Visit Provider Surgery | DX: Z97.8 Presence of other specified devices (principal) | CPT/HCPCS: 99213 ==

== ENCOUNTER 2023-06-08 13:22 | Emergency (ER) | payer MEDICARE, MEDICAID, SELFPAY ==
[2023-06-08 13:26] VITALS: PULSE 74; RESP 18; TEMP 37.2; O2SAT 98
--- NOTE | 2023-06-08 13:26 | ED.GENADUL_ITS ---
Discharge Plan Disposition Patient Disposition: Home Discharge Details Clinical Impression: Complication of feeding tube Primary Care Provider: Nazia Chan ED Provider: Donal Aguilar Home Meds and New Rx's Prescriptions: No Action ropinirole 1 mg tablet 1 mg PO BID aspirin [Adult Aspirin Regimen] 81 mg tablet,delayed release (DR/EC) 81 mg PO DAILY acetaminophen [Tylenol Extra Strength] 500 mg tablet 1,000 mg PO BID PRN omeprazole 20 mg capsule,delayed release(DR/EC) 20 mg feeding tube BID Qty: 90 4RF acetylcysteine 100 mg/mL (10 %) solution 4 ml inhalation BID amlodipine 5 mg tablet 5 mg PO DAILY levothyroxine See Rx Instructions .ROUTE DIRECTED Rx Instructions: as directed; sertraline 50 mg tablet 50 mg PO DAILY Qty: 30 2RF Rx Instructions: decreased by PCP on 06/19/22 rosuvastatin 40 mg tablet 40 mg feeding tube HS Qty: 90 4RF ipratropium-albuterol 0.5 mg-3 mg(2.5 mg base)/3 mL solution for nebulization 3 ml IN QID PRN (Reason: shortness of breath or wheezing) Qty: 90 4RF Rx Instructions: increased dose/use treatment 4 times/day as needed NOT SENT polyethylene glycol 3350 [Miralax] 17 gram/dose powder 17 g PO DAILY PRN (Reason: constipation) Rx Instructions: 06/19/22 instructed by PCP to take 1/2 cap daily, may reduce to half cap three times per week if daily is too much acetylcysteine [NAC] 600 mg capsule 600 mg PO BID Qty: 60 12RF Vancomycin 250 mg NEB BID 28 Days Qty: 280 12RF Hold Instructions: takes every other 28 days Rx Instructions: 250mg vancomycin in 5 cc of sterile water for nebulization To be given every other month for 28 consecutive days gabapentin 100 mg capsule 200 mg PO BID Qty: 360 3RF sulfamethoxazole-trimethoprim 200-40 mg/5 mL suspension 5 ml PO DAILY 28 Days Qty: 473 9RF Rx Instructions: Take daily for 4 weeks, then off for 4 weeks, etc nystatin 100,000 unit/gram powder 1 applic topical BID Qty: 60 12RF finasteride 5 mg tablet 5 mg PO DAILY Qty: 90 3RF tamsulosin [Flomax] 0.4 mg capsule 0.4 mg PO DAILY Qty: 90 3RF melatonin 3 MG tablet 6 mg PO HS Align 4 mg Capsule 4 mg PO QPM ferrous sulfate [FeroSul] 325 mg (65 mg iron) tablet 325 mg PO DAILY Patient Comments: TAKE 1 TABLET VIA FEEDING TUBE ONCE DAILY [place] DVT-PE Treat 30D Start 5 mg (74 tabs) tablets,dose pack 5 mg PO ONCE Qty: 74 0RF Discharge Instructions Instructions: How to Use and Care for Your PEG Tube (ED) Additional Instructions: Please return to the emergency department for any new or significant worsening of symptoms. Because this is not an actual G-tube there may be small amount of leakage around Denny catheter which is normal and can be expected. If you have any significant worsening of pain or discomfort or other concerns return to the emergency department otherwise you will need to follow-up with general surgery office for full replacement of G-tube Referrals: [facility] [Provider Group] - 3 days (Call the general surgery office tomorrow morning for arrangement of follow-up and complete G-tube replacement) Medical Decision Making Patient presenting to the emergency department for chief complaint of G-tube displacement. Patient reports just prior to arrival his G-tube accidentally dislodged and fell out. He attempted to reinsert it but was unable to. Patient denies all other symptoms including pain discomfort abnormal discharge fever chills or other symptoms. Patient has significant past medical history that includes laryngeal cancer, G-tube placement, coronary artery disease, restless leg syndrome, hypothyroidism hypertension hyperlipidemia history of alcoholism, COPD depression anxiety. Surgical history includes AAA repair laryngectomy. Physical exam shows dislodged G-tube with appropriate appearing stoma from abdomen otherwise noncontributory exam. Will see if we have G-tube to replace patient's feeding tube and will also speak to general surgeon on-call. Prior to speaking with general surgeon we were able to obtain Nasim G-tubes but not the exact size patient currently patient has 20 [place] 3.5 cm. Was able to speak with general surgeon and discussed with patient options we decided to put in a 20 [place] Denny catheter. We did confirm placement with x- ray and oral contrast. Patient continued to deny any symptoms so patient discharged before full radiology read due to being the holiday and I do feel confident that at this time insulation seems to be into the GI tract. Did discuss this with patient and patient states understanding to return if we call for any abnormal radiological imaging finding. After discussion of diagnosis and plan of care significant other and patient has no further needs, questions, or concerns and states clear understanding to return to the emergency department for any worsening symptoms. This documentation was generated using [email or web address] system, please disregard any oddities of phrase or misspellings. Imaging Data Radiologic Study: Imaging: X-Ray Radiologist's impression: Exam(s) XR ABD FLAT UPRIGHT PA CHEST EXAM: XR ABD FLAT UPRIGHT PA CHEST CLINICAL HISTORY: G-tube placement confirmation. TECHNIQUE: 2D digital imaging was performed. COMPARISON: No exams were available for comparison FINDINGS: 3 views: Chest [id number] frontal view: Heart size normal. The lung aortic stent graft extending from the mid thoracic aorta down through the entire abdominal aorta and distal mass mostly is in the distal common iliac arteries is noted. There are no infiltrates nor pleural effusions. No pulmonary edema. No pneumothorax. Abdomen two views: The contrast injected via the indwelling gastrostomy tube appears to be intraluminal in the stomach, without obvious extravasation into the peritoneal cavity. Stomach is not distended. Bowel gas pattern is nonspecific in the supine position. IMPRESSION: 1. No acute pulmonary findings. Long length aortic stent graft noted, extending from mid-upper thoracic aorta down to the iliac vessels. 2. The gastrostomy tube appears to be in satisfactory position in the stomach without extravasation of injected contrast. HPI General Mode of arrival: ambulatory . Date/Time Provider Initiated Documentation: 06/08/23 13:23 . Limitations to Documentation: language barrier . Information obtained by: patient, family and RN notes reviewed . History of Present Illness 78 year old M presents to the emergency department with the chief complaint of G-tube fell out, Patient notes no other symptoms.. Related Data Home Medications Medication Instructions Recorded Confirmed omeprazole 20 mg capsule,delayed 20 mg feeding tube BID #90 caps 10/05/19 06/08/23 release melatonin 3 mg tablet 6 mg PO HS 10/29/19 06/08/23 rosuvastatin 40 mg tablet 40 mg feeding tube HS #90 tabs 12/14/19 06/08/23 acetylcysteine 100 mg/mL (10 %) 4 ml inhalation BID 07/05/20 06/08/23 solution ipratropium 0.5 mg-albuterol 3 mg 3 ml IN QID PRN shortness of 07/30/20 06/08/23 (2.5 mg base)/3 mL nebulization breath or wheezing #90 mL soln amlodipine 5 mg tablet 5 mg PO DAILY 10/04/20 06/08/23 Bifidobacterium infantis 4 mg 4 mg PO QPM 08/03/21 06/08/23 capsule (Align) ferrous sulfate 325 mg (65 mg 325 mg PO DAILY 08/05/21 06/08/23 iron) tablet (FeroSul) aspirin 81 mg tablet,delayed 81 mg PO DAILY 11/25/21 06/08/23 release (Adult Aspirin Regimen) ropinirole 1 mg tablet 1 mg PO BID 01/07/22 06/08/23 acetaminophen 500 mg tablet 1,000 mg PO BID PRN 03/05/22 06/08/23 (Tylenol Extra Strength) polyethylene glycol 3350 17 17 g PO DAILY PRN constipation 06/19/22 06/08/23 gram/dose oral powder (Miralax) acetylcysteine 600 mg capsule (NAC) 600 mg PO BID #60 caps 08/29/22 06/08/23 Vancomycin 250 mg NEB BID 28 days #280 mL 09/29/22 06/08/23 levothyroxine See Rx Instructions .Route 10/27/22 06/08/23 DIRECTED gabapentin 100 mg capsule 200 mg (2 x 100 mg) PO BID #360 12/10/22 06/08/23 caps sulfamethoxazole 200 5 ml PO DAILY 28 days #473 mL 12/11/22 06/08/23 mg-trimethoprim 40 mg/5 mL oral suspension nystatin 100,000 unit/gram topical 1 applic topical BID #60 grams 02/19/23 06/08/23 powder sertraline 50 mg tablet 50 mg PO DAILY #30 tabs 04/14/23 06/08/23 finasteride 5 mg tablet 5 mg PO DAILY #90 tabs 04/16/23 06/08/23 tamsulosin 0.4 mg capsule (Flomax) 0.4 mg PO DAILY #90 caps 04/16/23 06/08/23 apixaban 5 mg (74 tabs) tablets in 5 mg PO ONCE #74 dose pk 04/23/23 06/08/23 a dose pack (Eliquis DVT-PE Treat 30D Start) Previous Rx's Medication Instructions Recorded omeprazole 20 mg capsule,delayed 20 mg feeding tube BID #90 caps 10/05/19 release rosuvastatin 40 mg tablet 40 mg feeding tube HS #90 tabs 12/14/19 ipratropium 0.5 mg-albuterol 3 mg 3 ml IN QID PRN shortness of 07/30/20 (2.5 mg base)/3 mL nebulization breath or wheezing #90 mL soln acetylcysteine 600 mg capsule (NAC) 600 mg PO BID #60 caps 08/29/22 Vancomycin 250 mg NEB BID 28 days #280 mL 09/29/22 gabapentin 100 mg capsule 200 mg (2 x 100 mg) PO BID #360 12/10/22 caps sulfamethoxazole 200 5 ml PO DAILY 28 days #473 mL 12/11/22 mg-trimethoprim 40 mg/5 mL oral suspension nystatin 100,000 unit/gram topical 1 applic topical BID #60 grams 02/19/23 powder sertraline 50 mg tablet 50 mg PO DAILY #30 tabs 04/14/23 finasteride 5 mg tablet 5 mg PO DAILY #90 tabs 04/16/23 tamsulosin 0.4 mg capsule (Flomax) 0.4 mg PO DAILY #90 caps 04/16/23 apixaban 5 mg (74 tabs) tablets in 5 mg PO ONCE #74 dose pk 04/23/23 a dose pack (DINKlife DVT-PE Treat 30D Start) Allergies Allergy/AdvReac Type Severity Reaction Status Date / Time pollen extracts Allergy Mild Verified 06/08/23 13:28 Tetracyclines Allergy Unknown SKIN RASH Verified 06/08/23 13:28 General Stated Complaint: Abd Prob CHER: 3 Review of Systems Gastrointestinal Gastrointestinal: Reports as per HPI, Denies abdominal pain and Denies vomiting PFSH All Active Problems (Updated 06/08/23 @ 14:59 by Donal Aguilar NP) Uses feeding tube (Acute) Esophageal stricture (Acute) Gross hematuria (Acute) Leaking percutaneous endoscopic gastrostomy (PEG) tube (Acute) Ambulatory dysfunction (Acute) Leukocytosis (leucocytosis) (Acute) UTI (urinary tract infection) (Acute) Multiple subsegmental pulmonary emboli without acute cor pulmonale (Acute) C1 cervical fracture (Acute) Gastrostomy tube dysfunction (Acute) Advance care planning (Acute) Encounter for hospice care discussion (Acute) Unintentional weight loss of 10% body weight within 6 months (Acute) Dysuria (Acute) Malfunctioning jejunostomy tube (Acute) Need for follow-up by social research assistant (Acute) Dysphagia (Acute) Weakness (Acute) Impaired instrumental activities of daily living (Acute) Plantar fascial fibromatosis (Acute) Feeding tube dysfunction (Acute) Sensorineural hearing loss (SNHL) of both ears (Acute) Otalgia of right ear (Acute) Neck pain on right side (Acute) Neck pain on right side (Acute) Full code status (Acute) Need for home health care (Acute) MRSA pneumonia (Acute) pt likely colonized Occlusion of right vertebral artery (Acute) Hypoxemia (Acute) Complication of feeding tube (Acute) Peripheral neuropathy (Acute 02/21/15) PAOD (peripheral arterial occlusive disease) (Acute) COPD (chronic obstructive pulmonary disease) (Chronic) G tube feedings (Acute) 20F 3.0cm 11/30/22. Routine change every 4 months. 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 Hypertension Tobacco use COPD (chronic obstructive pulmonary disease) Post herpetic neuralgia Hypothyroidism Hyperlipemia Depression Anxiety Anemia Conjunctivitis, chronic Surgical History S/P AAA (abdominal aortic aneurysm) repair Status post laryngectomy History of esophagogastroduodenoscopy (EGD) (~08/10/19) Daron Casper APRN @ [facility]: hiatal hernia, GERD, Reyes's esophagitis, neuromuscular dysfunction History of laryngectomy Status post cardiac catheterization Status post cataract extraction and insertion of intraocular lens of right eye (07/12/18) History of tarsorrhaphy Status post cataract extraction and insertion of intraocular lens of left eye (04/30/12) 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 PROCEDURES RT/LEFT HEART CARD CATH COMPLETE LARYNGECTOMY Esophagoplasty EGD - MAC (07/06/17) Colonoscopy - MAC (12/22/16) History of radical laryngectomy Family History Nephew Throat cancer Maternal Cousin Cancer Social History Smoking/Tobacco Use Status: Former Tobacco Use Quit Date: 04/23/13 Tobacco: How many years used: 20 Smoking risk assessment performed?: Yes Alcohol Intake: never Drug use: Never Substance use type: does not use Housing: apartment Current gender identity: male Do you feel safe at home: Yes Do you feel safe in your relationship?: Yes Exam Const General: cooperative, no acute distress and not ill appearing Orientation: alert and awake HENMT Mouth: moist mucous membranes Resp Effort & Inspection: normal respiratory effort and no respiratory distress GI Inspection: other (Stoma visible with no signs of dysfunction. G-tube not in place) Palpation: soft and nontender Skin General skin exam: no rashes or lesions noted Neuro General: patient alert, patient awake and moves all extremities Procedures Feeding Tube Replacement Type of Tube: G-J Tube Insertion Site Prior to Procedure: clean Tube Used for Reinsertion: Denny [place] Tube Size (F): 20 Balloon size (mL): 10 Verification of Placement: KUB Tube Secured by: tape/dressing Patient Tolerated Procedure: well and no complications
--- NOTE | 2023-06-08 14:45 | DI.RAD_ITS ---
Exam(s) XR ABD FLAT UPRIGHT PA CHEST EXAM: XR ABD FLAT UPRIGHT PA CHEST CLINICAL HISTORY: G-tube placement confirmation. TECHNIQUE: 2D digital imaging was performed. COMPARISON: No exams were available for comparison FINDINGS: 3 views: Chest [id number] frontal view: Heart size normal. The lung aortic stent graft extending from the m id thoracic aorta down through the entire abdominal aorta and distal mass mostly is in the distal com mon iliac arteries is noted. There are no infiltrates nor pleural effusions. No pulmonary edema. No pneumothorax. Abdomen two views: The contrast injected via the indwelling gastrostomy tube appears to be intralumin al in the stomach, without obvious extravasation into the peritoneal cavity. Stomach is not distende d. Bowel gas pattern is nonspecific in the supine position. IMPRESSION: 1. No acute pulmonary findings. Long length aortic stent graft noted, extending from mid-upper thora cic aorta down to the iliac vessels. 2. The gastrostomy tube appears to be in satisfactory position in the stomach without extravasation o f injected contrast. DATA REPOSITORY: RADIATION DOSE DELIVERED:
[2023-06-08] MEDS: Omnipaque 350 MG/ML 50 ML BTL IJ (15:13)
[2023-06-08 15:20] VITALS: PULSE 75; RESP 16; TEMP 36.2; O2SAT 98
--- NOTE | 2023-06-08 15:56 | DI.VRAD_ITS ---
PROCEDURE INFORMATION: Exam: XR Complete Acute Abdomen Series Including Chest Exam date and time: 06/08/2023 3:05 PM Age: 78 years old Clinical indication: Other: G-tube placement confirmation. Prior surgery; Surgery date: 6+ months; Surgery type: Unknown; Additional info: Oral contrast administered to confirm g-tube placement. TECHNIQUE: Imaging protocol: Radiologic exam. Complete acute abdomen series, including 2 or more views of the abdomen and a single view chest. COMPARISON: CT ABDOMEN PELVIS WO/W 27/05/2023 14:07 FINDINGS: Tubes, catheters and devices: Percutaneous gastrostomy tube appears to overlie the mid abdomen and left pelvis. Lungs: Low lung volumes. No focal consolidation. Pleural spaces: Normal. No pleural effusions. No pneumothorax. Heart/Mediastinum: Normal. No cardiomegaly. Gastrointestinal tract: Oral contrast is seen in the stomach and proximal bowel. Percutaneous gastrostomy tube seen overlying the mid abdomen near the distal stomach. Intraperitoneal space: Normal. No free air. Vasculature: Tortuous ectatic thoracic aorta with intraluminal aortic stent. Bilateral iliac artery stents. Bones/joints: Tortuous ectatic thoracic and abdominal aorta with intraluminal stent. Multilevel degenerative changes in the visualized thoracic and lumbar spine. Soft tissues: Surgical clips in the soft tissues in neck. IMPRESSION: No acute findings. Dictated and Authenticated by: Tana Powers MD. Ordering:BEATRIZ Mansfield MD
== END 2023-06-08 15:32 | disposition home or self-care (01) ==
PROVIDERS: Emergency Provider Nurse Practitioner Family; PCP Physician Assistant Medical
DX: K94.23 Gastrostomy malfunction (principal)
CPT/HCPCS: 43762; 99284; 74022; Q9967

== ENCOUNTER 2023-06-08 19:40 | Emergency (ER) | payer MEDICARE, MEDICAID, SELFPAY ==
[2023-06-08 19:57] VITALS: BP 132/92; PULSE 78; RESP 16; TEMP 36.5; O2SAT 94
--- NOTE | 2023-06-08 21:29 | DI.RAD_ITS ---
Exam(s) XR ABDOMEN FLAT UPRIGHT EXAM: 2D digital imaging was performed. CLINICAL HISTORY: Confirm G-tube placement was fully. COMPARISON: CT CT ABDOMEN PELVIS WO/W from 05/27/2023 CR,XR XR ABD FLAT UPRIGHT PA CHEST from 06/08/2023 TECHNIQUE: Supine and upright views of the abdomen were performed. FINDINGS: BOWEL GAS PATTERN: Nondistended.No free air. Contrast noted within stomach and small bowel. Some co ntrast also present in right side of colon. Extensive stents in aorta and branch vessels.. OSSEOUS STRUCTURES: Normal for age. Visualized portions of chest: Unremarkable. IMPRESSION: 1. Nonobstructive bowel gas pattern. Contrast seen within the right side of the colon. 2. Extensive arterial stents. 3. No free air. DATA REPOSITORY: RADIATION DOSE DELIVERED:
--- NOTE | 2023-06-08 21:41 | ED.GENADUL_ITS ---
Discharge Plan Disposition Patient Disposition: Home Discharge Details Clinical Impression: Complication of feeding tube Primary Care Provider: Nazia Chan ED Provider: Donal Aguilar Home Meds and New Rx's Prescriptions: No Action ropinirole 1 mg tablet 1 mg PO BID aspirin [Adult Aspirin Regimen] 81 mg tablet,delayed release (DR/EC) 81 mg PO DAILY acetaminophen [Tylenol Extra Strength] 500 mg tablet 1,000 mg PO BID PRN omeprazole 20 mg capsule,delayed release(DR/EC) 20 mg feeding tube BID Qty: 90 4RF acetylcysteine 100 mg/mL (10 %) solution 4 ml inhalation BID amlodipine 5 mg tablet 5 mg PO DAILY levothyroxine See Rx Instructions .ROUTE DIRECTED Rx Instructions: as directed; sertraline 50 mg tablet 50 mg PO DAILY Qty: 30 2RF Rx Instructions: decreased by PCP on 06/19/22 rosuvastatin 40 mg tablet 40 mg feeding tube HS Qty: 90 4RF ipratropium-albuterol 0.5 mg-3 mg(2.5 mg base)/3 mL solution for nebulization 3 ml IN QID PRN (Reason: shortness of breath or wheezing) Qty: 90 4RF Rx Instructions: increased dose/use treatment 4 times/day as needed NOT SENT polyethylene glycol 3350 [Miralax] 17 gram/dose powder 17 g PO DAILY PRN (Reason: constipation) Rx Instructions: 06/19/22 instructed by PCP to take 1/2 cap daily, may reduce to half cap three times per week if daily is too much acetylcysteine [NAC] 600 mg capsule 600 mg PO BID Qty: 60 12RF Vancomycin 250 mg NEB BID 28 Days Qty: 280 12RF Hold Instructions: takes every other 28 days Rx Instructions: 250mg vancomycin in 5 cc of sterile water for nebulization To be given every other month for 28 consecutive days gabapentin 100 mg capsule 200 mg PO BID Qty: 360 3RF sulfamethoxazole-trimethoprim 200-40 mg/5 mL suspension 5 ml PO DAILY 28 Days Qty: 473 9RF Rx Instructions: Take daily for 4 weeks, then off for 4 weeks, etc nystatin 100,000 unit/gram powder 1 applic topical BID Qty: 60 12RF finasteride 5 mg tablet 5 mg PO DAILY Qty: 90 3RF tamsulosin [Flomax] 0.4 mg capsule 0.4 mg PO DAILY Qty: 90 3RF melatonin 3 MG tablet 6 mg PO HS Align 4 mg Capsule 4 mg PO QPM ferrous sulfate [FeroSul] 325 mg (65 mg iron) tablet 325 mg PO DAILY Patient Comments: TAKE 1 TABLET VIA FEEDING TUBE ONCE DAILY [place] DVT-PE Treat 30D Start 5 mg (74 tabs) tablets,dose pack 5 mg PO ONCE Qty: 74 0RF Discharge Instructions Additional Instructions: As discussed earlier in your visit please follow-up with general surgery for placement of a new appropriate G-tube. If you have any new or significant worsening symptoms feel free to return the emergency department for reassessment. Please be very careful with the new Denny catheter as this will need to stay in place until the supplies can be obtained to replace it with more appropriate gastric tube. Referrals: [facility] [Provider Group] Medical Decision Making Patient in the emergency department for the second time today for his G-tube falling out. Patient denies any other symptoms beyond leaking around the site. Please see previous note for full review of past medical history. Physical exam is the same of noted stoma on the abdomen, no significant abnormalities or bleeding noted and Denny catheter displaced. Catheter was replaced and patient set to imaging to confirm placement as it was slightly more difficult to place catheter and this time. Reviewed imaging and it is difficult to see the the catheter tip but radiologist did note Contrast injection opacifies decompressed stomach and portions of small bowel. Given that patient had no pain or discomfort and staff reporter stated they were able to both irrigate the stomach and return liquid I am very confident that this is in the stomach. After discussion of diagnosis and plan of care patient has no further needs, questions, or concerns and states clear understanding to return to the emergency department for any worsening symptoms. This documentation was generated using [employer] dictation system, please disregard any oddities of phrase or misspellings. Imaging Data Radiologic Study: Imaging: X-Ray Radiologist's impression: Exam: XR Abdomen Exam date and time: 06/08/2023 9:13 PM Age: 78 years old Clinical indication: Other: G-tube placement conformation. Prior surgery; Surgery date: 6+ months; Surgery type: Unknown; Additional info: Oral contrast to was administered to confirm g-tube placement. TECHNIQUE: Imaging protocol: Radiologic exam of the abdomen. Views: 2 Views. Upright and supine views. COMPARISON: CR XR ABD FLAT UPRIGHT PA CHEST 06/08/2023 3:05 PM FINDINGS: Tubes, catheters and devices: Aortic bi-iliac stent graft and presumed mesenteric stents and embolization coils, intact as visualized. External portions of a feeding tube were seen, proximal/internal portions very challenging to identify. Contrast injection opacifies decompressed stomach and portions of small bowel. Gastrointestinal tract: See Tubes, catheters and devices finding. Intraperitoneal space: No free air. Bones/joints: No displaced fracture. IMPRESSION: External portions of a feeding tube were seen, proximal/internal portions very challenging to identify. Contrast injection opacifies decompressed stomach and portions of small bowel. HPI General Mode of arrival: ambulatory . Date/Time Provider Initiated Documentation: 06/08/23 20:50 . Limitations to Documentation: language barrier . Information obtained by: patient, family and RN notes reviewed . History of Present Illness 78 year old M presents to the emergency department with the chief complaint of G-tube displacement, Patient started experiencing this unknown Patient notes no other symptoms.. Related Data Home Medications Medication Instructions Recorded Confirmed omeprazole 20 mg capsule,delayed 20 mg feeding tube BID #90 caps 10/05/19 06/08/23 release melatonin 3 mg tablet 6 mg PO HS 10/29/19 06/08/23 rosuvastatin 40 mg tablet 40 mg feeding tube HS #90 tabs 12/14/19 06/08/23 acetylcysteine 100 mg/mL (10 %) 4 ml inhalation BID 07/05/20 06/08/23 solution ipratropium 0.5 mg-albuterol 3 mg 3 ml IN QID PRN shortness of 07/30/20 06/08/23 (2.5 mg base)/3 mL nebulization breath or wheezing #90 mL soln amlodipine 5 mg tablet 5 mg PO DAILY 10/04/20 06/08/23 Bifidobacterium infantis 4 mg 4 mg PO QPM 08/03/21 06/08/23 capsule (Align) ferrous sulfate 325 mg (65 mg 325 mg PO DAILY 08/05/21 06/08/23 iron) tablet (FeroSul) aspirin 81 mg tablet,delayed 81 mg PO DAILY 11/25/21 06/08/23 release (Adult Aspirin Regimen) ropinirole 1 mg tablet 1 mg PO BID 01/07/22 06/08/23 acetaminophen 500 mg tablet 1,000 mg PO BID PRN 03/05/22 06/08/23 (Tylenol Extra Strength) polyethylene glycol 3350 17 17 g PO DAILY PRN constipation 06/19/22 06/08/23 gram/dose oral powder (Miralax) acetylcysteine 600 mg capsule (NAC) 600 mg PO BID #60 caps 08/29/22 06/08/23 Vancomycin 250 mg NEB BID 28 days #280 mL 09/29/22 06/08/23 levothyroxine See Rx Instructions .Route 10/27/22 06/08/23 DIRECTED gabapentin 100 mg capsule 200 mg (2 x 100 mg) PO BID #360 12/10/22 06/08/23 caps sulfamethoxazole 200 5 ml PO DAILY 28 days #473 mL 12/11/22 06/08/23 mg-trimethoprim 40 mg/5 mL oral suspension nystatin 100,000 unit/gram topical 1 applic topical BID #60 grams 02/19/23 06/08/23 powder sertraline 50 mg tablet 50 mg PO DAILY #30 tabs 04/14/23 06/08/23 finasteride 5 mg tablet 5 mg PO DAILY #90 tabs 04/16/23 06/08/23 tamsulosin 0.4 mg capsule (Flomax) 0.4 mg PO DAILY #90 caps 04/16/23 06/08/23 apixaban 5 mg (74 tabs) tablets in 5 mg PO ONCE #74 dose pk 04/23/23 06/08/23 a dose pack (Vuclip DVT-PE Treat 30D Start) Previous Rx's Medication Instructions Recorded omeprazole 20 mg capsule,delayed 20 mg feeding tube BID #90 caps 10/05/19 release rosuvastatin 40 mg tablet 40 mg feeding tube HS #90 tabs 12/14/19 ipratropium 0.5 mg-albuterol 3 mg 3 ml IN QID PRN shortness of 07/30/20 (2.5 mg base)/3 mL nebulization breath or wheezing #90 mL soln acetylcysteine 600 mg capsule (NAC) 600 mg PO BID #60 caps 08/29/22 Vancomycin 250 mg NEB BID 28 days #280 mL 09/29/22 gabapentin 100 mg capsule 200 mg (2 x 100 mg) PO BID #360 12/10/22 caps sulfamethoxazole 200 5 ml PO DAILY 28 days #473 mL 12/11/22 mg-trimethoprim 40 mg/5 mL oral suspension nystatin 100,000 unit/gram topical 1 applic topical BID #60 grams 02/19/23 powder sertraline 50 mg tablet 50 mg PO DAILY #30 tabs 04/14/23 finasteride 5 mg tablet 5 mg PO DAILY #90 tabs 04/16/23 tamsulosin 0.4 mg capsule (Flomax) 0.4 mg PO DAILY #90 caps 04/16/23 apixaban 5 mg (74 tabs) tablets in 5 mg PO ONCE #74 dose pk 04/23/23 a dose pack (EliDoximity DVT-PE Treat 30D Start) Allergies Allergy/AdvReac Type Severity Reaction Status Date / Time pollen extracts Allergy Mild Verified 06/08/23 13:28 Tetracyclines Allergy Unknown SKIN RASH Verified 06/08/23 13:28 General Stated Complaint: Abd Prob CHER: 4 Review of Systems Gastrointestinal Gastrointestinal: Reports as per HPI, Denies abdominal pain and Denies vomiting PFSH All Active Problems (Updated 06/08/23 @ 21:54 by Donal Aguilar NP) Uses feeding tube (Acute) Esophageal stricture (Acute) Gross hematuria (Acute) Leaking percutaneous endoscopic gastrostomy (PEG) tube (Acute) Ambulatory dysfunction (Acute) Leukocytosis (leucocytosis) (Acute) UTI (urinary tract infection) (Acute) Multiple subsegmental pulmonary emboli without acute cor pulmonale (Acute) C1 cervical fracture (Acute) Gastrostomy tube dysfunction (Acute) Advance care planning (Acute) Encounter for hospice care discussion (Acute) Unintentional weight loss of 10% body weight within 6 months (Acute) Dysuria (Acute) Malfunctioning jejunostomy tube (Acute) Need for follow-up by nursing home social worker (Acute) Dysphagia (Acute) Weakness (Acute) Impaired instrumental activities of daily living (Acute) Plantar fascial fibromatosis (Acute) Feeding tube dysfunction (Acute) Sensorineural hearing loss (SNHL) of both ears (Acute) Otalgia of right ear (Acute) Neck pain on right side (Acute) Neck pain on right side (Acute) Full code status (Acute) Need for home health care (Acute) MRSA pneumonia (Acute) pt likely colonized Occlusion of right vertebral artery (Acute) Hypoxemia (Acute) Complication of feeding tube (Acute) Peripheral neuropathy (Acute 02/21/15) PAOD (peripheral arterial occlusive disease) (Acute) COPD (chronic obstructive pulmonary disease) (Chronic) G tube feedings (Acute) 20F 3.0cm 11/30/22. Routine change every 4 months. 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 Hypertension Tobacco use COPD (chronic obstructive pulmonary disease) Post herpetic neuralgia Hypothyroidism Hyperlipemia Depression Anxiety Anemia Conjunctivitis, chronic Surgical History S/P AAA (abdominal aortic aneurysm) repair Status post laryngectomy History of esophagogastroduodenoscopy (EGD) (~08/10/19) Daron Casper APRN @ [facility] [place]: hiatal hernia, GERD, Reyes's esophagitis, n euromuscular dysfunction History of laryngectomy Status post cardiac catheterization Status post cataract extraction and insertion of intraocular lens of right eye (07/12/18) History of tarsorrhaphy Status post cataract extraction and insertion of intraocular lens of left eye (04/30/12) 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) Sin-mullins button placed by Dr Elia Mcdonald [facility] PROCEDURES RT/LEFT HEART CARD CATH COMPLETE LARYNGECTOMY Esophagoplasty EGD - MAC (07/06/17) Colonoscopy - MAC (12/22/16) History of radical laryngectomy Family History Nephew Throat cancer Maternal Cousin Cancer Social History Smoking/Tobacco Use Status: Former Tobacco Use Quit Date: 04/23/13 Tobacco: How many years used: 20 Smoking risk assessment performed?: Yes Alcohol Intake: never Drug use: Never Substance use type: does not use Housing: apartment Current gender identity: male Do you feel safe at home: Yes Do you feel safe in your relationship?: Yes Exam Const General: cooperative, no acute distress and not ill appearing Orientation: alert and awake HENMT Mouth: moist mucous membranes Resp Effort & Inspection: normal respiratory effort and no respiratory distress GI Inspection: other (Stoma visible with no signs of dysfunction. G-tube not in place) Palpation: soft and nontender Skin General skin exam: no rashes or lesions noted Neuro General: patient alert, patient awake and moves all extremities Course Vital Signs Vital signs: Vital Signs Temperature 36.5 C 06/08/23 19:57 Pulse 78 06/08/23 19:57 Respiratory Rate 16 06/08/23 19:57 Blood Pressure 132/92 H 06/08/23 19:57 Pulse Oximetry 94 06/08/23 19:57 Temperature 36.5 C 06/08/23 19:57 Temperature Source Temporal Artery Scan 06/08/23 19:57 Pulse 78 06/08/23 19:57 Respiratory Rate 16 06/08/23 19:57 Respiratory Effort Normal 06/08/23 20:05 Blood Pressure 132/92 H 06/08/23 19:57 Blood Pressure Position Supine 06/08/23 19:57 Pulse Oximetry 94 06/08/23 19:57 Oxygen Delivery Method Room Air 06/08/23 19:57 Oxygen Flow Rate 0 06/08/23 19:57 Pain Level 0 06/08/23 19:57 Procedures Feeding Tube Replacement Type of Tube: G-J Tube Insertion Site Prior to Procedure: clean, tender and swollen Tube Used for Reinsertion: Denny Ukrainian Tube Size (F): 20 Balloon size (mL): 10 Verification of Placement: KUB and gastrograffin injection Tube Secured by: tape/dressing and G-tube attachment device Patient Tolerated Procedure: well and no complications
--- NOTE | 2023-06-08 22:00 | DI.VRAD_ITS ---
PROCEDURE INFORMATION: Exam: XR Abdomen Exam date and time: 06/08/2023 9:13 PM Age: 78 years old Clinical indication: Other: G-tube placement conformation. Prior surgery; Surgery date: 6+ months; Surgery type: Unknown; Additional info: Oral contrast to was administered to confirm g-tube placement. TECHNIQUE: Imaging protocol: Radiologic exam of the abdomen. Views: 2 Views. Upright and supine views. COMPARISON: CR XR ABD FLAT UPRIGHT PA CHEST 06/08/2023 3:05 PM FINDINGS: Tubes, catheters and devices: Aortic bi-iliac stent graft and presumed mesenteric stents and embolization coils, intact as visualized. External portions of a feeding tube were seen, proximal/internal portions very challenging to identify. Contrast injection opacifies decompressed stomach and portions of small bowel. Gastrointestinal tract: See Tubes, catheters and devices finding. Intraperitoneal space: No free air. Bones/joints: No displaced fracture. IMPRESSION: External portions of a feeding tube were seen, proximal/internal portions very challenging to identify. Contrast injection opacifies decompressed stomach and portions of small bowel. Dictated and Authenticated by: Haven Ontiveros MD. Ordering:BEATRIZ Mansfield MD
== END 2023-06-08 22:26 | disposition home or self-care (01) ==
PROVIDERS: Emergency Provider Nurse Practitioner Family; PCP Physician Assistant Medical
DX: K94.23 Gastrostomy malfunction (principal)
CPT/HCPCS: 43762; 99284; 74019; 74022; Q9967

== ENCOUNTER 2023-06-14 15:06 | Emergency (ER) | payer MEDICARE, MEDICAID, SELFPAY ==
[2023-06-14 15:47] VITALS: BP 117/83; PULSE 84; RESP 16; TEMP 36.2; O2SAT 97
[2023-06-14 17:04] VITALS: BP 117/83; PULSE 84; RESP 16; TEMP 36.2; O2SAT 97
--- NOTE | 2023-06-14 17:18 | ED.GENADUL_ITS ---
HPI General Stated Complaint: GenMedical CHER: 4 Date/Time Provider Initiated Documentation: 06/14/23 15:53. HPI Narrative: 78 year-old male presents to ED today by POV/ambulating with a chief complaint of problem with setting up new PEG tube placed by IR at [facility] yesterday, cut portion of the feeding tube accessory tube off after it became stuck in his new PEG tube with onset noted earlier today. Quality described as no acute painful complaint, just hoping to have this tube issue fixed, no radiation to fever, shortness of breath, gastric contents leaking out. Severity is described as 0/10. Palliating factors include nothing specific attempted. Provoking factors include nothing specific. Patient not anticoagulated. Related Data Home Medications Medication Instructions Recorded Confirmed omeprazole 20 mg capsule,delayed 20 mg feeding tube BID #90 caps 10/05/19 06/08/23 release melatonin 3 mg tablet 6 mg PO HS 10/29/19 06/08/23 rosuvastatin 40 mg tablet 40 mg feeding tube HS #90 tabs 12/14/19 06/08/23 acetylcysteine 100 mg/mL (10 %) 4 ml inhalation BID 07/05/20 06/08/23 solution ipratropium 0.5 mg-albuterol 3 mg 3 ml IN QID PRN shortness of 07/30/20 06/08/23 (2.5 mg base)/3 mL nebulization breath or wheezing #90 mL soln amlodipine 5 mg tablet 5 mg PO DAILY 10/04/20 06/08/23 Bifidobacterium infantis 4 mg 4 mg PO QPM 08/03/21 06/08/23 capsule (Align) ferrous sulfate 325 mg (65 mg 325 mg PO DAILY 08/05/21 06/08/23 iron) tablet (FeroSul) aspirin 81 mg tablet,delayed 81 mg PO DAILY 11/25/21 06/08/23 release (Adult Aspirin Regimen) ropinirole 1 mg tablet 1 mg PO BID 01/07/22 06/08/23 acetaminophen 500 mg tablet 1,000 mg PO BID PRN 03/05/22 06/08/23 (Tylenol Extra Strength) polyethylene glycol 3350 17 17 g PO DAILY PRN constipation 06/19/22 06/08/23 gram/dose oral powder (Miralax) acetylcysteine 600 mg capsule (NAC) 600 mg PO BID #60 caps 08/29/22 06/08/23 Vancomycin 250 mg NEB BID 28 days #280 mL 09/29/22 06/08/23 levothyroxine See Rx Instructions .Route 10/27/22 06/08/23 DIRECTED gabapentin 100 mg capsule 200 mg (2 x 100 mg) PO BID #360 12/10/22 06/08/23 caps sulfamethoxazole 200 5 ml PO DAILY 28 days #473 mL 12/11/22 06/08/23 mg-trimethoprim 40 mg/5 mL oral suspension nystatin 100,000 unit/gram topical 1 applic topical BID #60 grams 02/19/23 06/08/23 powder sertraline 50 mg tablet 50 mg PO DAILY #30 tabs 04/14/23 06/08/23 finasteride 5 mg tablet 5 mg PO DAILY #90 tabs 04/16/23 06/08/23 tamsulosin 0.4 mg capsule (Flomax) 0.4 mg PO DAILY #90 caps 04/16/23 06/08/23 apixaban 5 mg (74 tabs) tablets in 5 mg PO ONCE #74 dose pk 04/23/23 06/08/23 a dose pack ([employer] DVT-PE Treat 30D Start) Previous Rx's Medication Instructions Recorded omeprazole 20 mg capsule,delayed 20 mg feeding tube BID #90 caps 10/05/19 release rosuvastatin 40 mg tablet 40 mg feeding tube HS #90 tabs 12/14/19 ipratropium 0.5 mg-albuterol 3 mg 3 ml IN QID PRN shortness of 07/30/20 (2.5 mg base)/3 mL nebulization breath or wheezing #90 mL soln acetylcysteine 600 mg capsule (NAC) 600 mg PO BID #60 caps 08/29/22 Vancomycin 250 mg NEB BID 28 days #280 mL 09/29/22 gabapentin 100 mg capsule 200 mg (2 x 100 mg) PO BID #360 12/10/22 caps sulfamethoxazole 200 5 ml PO DAILY 28 days #473 mL 12/11/22 mg-trimethoprim 40 mg/5 mL oral suspension nystatin 100,000 unit/gram topical 1 applic topical BID #60 grams 02/19/23 powder sertraline 50 mg tablet 50 mg PO DAILY #30 tabs 04/14/23 finasteride 5 mg tablet 5 mg PO DAILY #90 tabs 04/16/23 tamsulosin 0.4 mg capsule (Flomax) 0.4 mg PO DAILY #90 caps 04/16/23 apixaban 5 mg (74 tabs) tablets in 5 mg PO ONCE #74 dose pk 04/23/23 a dose pack (Eliquis DVT-PE Treat 30D Start) Allergies Allergy/AdvReac Type Severity Reaction Status Date / Time pollen extracts Allergy Mild Verified 06/08/23 13:28 Tetracyclines Allergy Unknown SKIN RASH Verified 06/08/23 13:28 Review of Systems All systems reviewed & are unremarkable except as noted in HPI and below PFSH All Active Problems (Updated 06/14/23 @ 18:12 by MARC Tobar) Complication of gastrostomy tube (Acute) Uses feeding tube (Acute) Esophageal stricture (Acute) Gross hematuria (Acute) Ambulatory dysfunction (Acute) Leukocytosis (leucocytosis) (Acute) UTI (urinary tract infection) (Acute) Multiple subsegmental pulmonary emboli without acute cor pulmonale (Acute) C1 cervical fracture (Acute) Gastrostomy tube dysfunction (Acute) Advance care planning (Acute) Encounter for hospice care discussion (Acute) Unintentional weight loss of 10% body weight within 6 months (Acute) Dysuria (Acute) Malfunctioning jejunostomy tube (Acute) Need for follow-up by social media marketing manager (Acute) Dysphagia (Acute) Weakness (Acute) Impaired instrumental activities of daily living (Acute) Plantar fascial fibromatosis (Acute) Feeding tube dysfunction (Acute) Sensorineural hearing loss (SNHL) of both ears (Acute) Otalgia of right ear (Acute) Neck pain on right side (Acute) Neck pain on right side (Acute) Full code status (Acute) Need for home health care (Acute) MRSA pneumonia (Acute) pt likely colonized Occlusion of right vertebral artery (Acute) Hypoxemia (Acute) Complication of feeding tube (Acute) Peripheral neuropathy (Acute 02/21/15) PAOD (peripheral arterial occlusive disease) (Acute) COPD (chronic obstructive pulmonary disease) (Chronic) G tube feedings (Acute) 20F 3.0cm 11/30/22. Routine change every 4 months. 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 Hypertension Tobacco use COPD (chronic obstructive pulmonary disease) Post herpetic neuralgia Hypothyroidism Hyperlipemia Depression Anxiety Anemia Conjunctivitis, chronic Surgical History S/P AAA (abdominal aortic aneurysm) repair Status post laryngectomy History of esophagogastroduodenoscopy (EGD) (~08/10/19) Daron Casper APRN @ [facility]: hiatal hernia, GERD, Reyes's esophagitis, neuromuscular dysfunction History of laryngectomy Status post cardiac catheterization Status post cataract extraction and insertion of intraocular lens of right eye (07/12/18) History of tarsorrhaphy Status post cataract extraction and insertion of intraocular lens of left eye (04/30/12) 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) Sin-mullins button placed by Dr Elia Mcdonald, [facility] PROCEDURES RT/LEFT HEART CARD CATH COMPLETE LARYNGECTOMY Esophagoplasty EGD - [facility] (07/06/17) Colonoscopy - [facility] (12/22/16) History of radical laryngectomy Family History Nephew Throat cancer Maternal Cousin Cancer Social History Smoking/Tobacco Use Status: Former Tobacco Use Quit Date: 04/23/13 Tobacco: How many years used: 20 Smoking risk assessment performed?: Yes Alcohol Intake: never Drug use: Never Substance use type: does not use Housing: apartment Current gender identity: male Do you feel safe at home: Yes Do you feel safe in your relationship?: Yes Exam Narrative Exam Narrative: GENERAL APPEARANCE: Well-nourished, non-toxic, chronically debilitated in wheel chair with trach and PEG tube. SKIN: Warm, pink, dry, intact, without rashes/lesions/ulcerations. HEAD: Normocephalic, atraumatic, normal hair distribution for gender/age. EYES: Pupils PERRLA, EOMs intact without nystagmus, normal conjunctiva, no exudates on lids/lashes. ENT: Nares patent, no circumoral cyanosis, no facial swelling NECK: Supple, trachea midline, painless cervical ROM. LUNGS/CHEST: Non-labored respirations, normal A/P diameter, symmetrical expansion, no chest wall deformity HEART (CV/PV): Regular rate and rhythm without murmur, no peripheral edema, no JVD. ABDOMEN: Soft, non-distended, no guarding. MSK: Normal ROM, no swelling/deformity to bilateral UEs or LEs, moving all extremities without weakness, no cyanosis, spine midline without tenderness, normal curvature. NEURO: Mental Status AAOx4 - alert to person, place, time, events No facial droop, no forehead involvement. Motor: No focal weakness - strength 5/5 in bilateral UEs and LEs, proximal and distal, symmetric. Sensory: sensation intact to light touch globally. PSYCH: euthymic, cooperative, pleasant Course Vital Signs Vital signs: Vital Signs Temperature 36.2 C L 06/14/23 15:47 Pulse 84 06/14/23 15:47 Respiratory Rate 16 06/14/23 15:47 Blood Pressure 117/83 06/14/23 15:47 Pulse Oximetry 97 06/14/23 15:47 Temperature 36.2 C L 06/14/23 17:04 Temperature Source Temporal Artery Scan 06/14/23 17:04 Pulse 84 06/14/23 17:04 Respiratory Rate 16 06/14/23 17:04 Respiratory Effort Normal, Non-Labored 06/14/23 17:04 Respiratory Depth Normal 06/14/23 17:04 Respiratory Pattern Normal 06/14/23 17:04 Blood Pressure 117/83 06/14/23 17:04 Blood Pressure Position Supine 06/14/23 17:04 Pulse Oximetry 97 06/14/23 17:04 Oxygen Delivery Method Room Air 06/14/23 17:04 Oxygen Flow Rate 0 06/14/23 17:04 Pain Level 0 06/14/23 17:04 Medical Decision Making This dictation utilizes [id number] dictation software and may contain unedited grammatical errors. 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 Patients' medical history: complex, chronic tube feeds, tracheostomy. Family and social history: noncontributory. Pertinent exam findings / vital signs include PEG tube in place, no other complaints. Differential / pathologies of concern include PEG tube problem. Diagnostic studies of: -none, tube flushed fine, no imaging needed. Interventions of: -supplied with new connectors and engaged in patient education on attachments of the new tube which were working without issue. ED Course/Assessment/Plan: 78-year-old male with new PEG tube placement by IR at [facility] presents with issues with his not being able to powdered metal supervisor tube feeds properly, she had cut off a piece of feeding tube that she got stuck in his new PEG tube, we remove this without issue in triage by RN, the tube was working normally and we did have an extra syringe to push meds as well as feeding tube attachments and provided patient education on how to attach properly to the patient's new tube, no other acute complaints or issues. Findings not consistent with PEG tube malfunction. Disposition of Complication of Gastrostomy Tube. Patient verbalized understanding of the plan and return to ED criteria and engaged in shared decision making. Medical Records Medical records reviewed: Yes I reviewed the patient's medical records. Discharge Plan Disposition Patient Disposition: Home Condition: Stable Discharge Details Clinical Impression: Complication of gastrostomy tube Primary Care Provider: Nazia Chan ED Provider: Francisco Phillips Home Meds and New Rx's Prescriptions: Continued ropinirole 1 mg tablet 1 mg PO BID aspirin [Adult Aspirin Regimen] 81 mg tablet,delayed release (DR/EC) 81 mg PO DAILY acetaminophen [Tylenol Extra Strength] 500 mg tablet 1,000 mg PO BID PRN omeprazole 20 mg capsule,delayed release(DR/EC) 20 mg feeding tube BID Qty: 90 4RF acetylcysteine 100 mg/mL (10 %) solution 4 ml inhalation BID amlodipine 5 mg tablet 5 mg PO DAILY levothyroxine See Rx Instructions .ROUTE DIRECTED Rx Instructions: as directed; sertraline 50 mg tablet 50 mg PO DAILY Qty: 30 2RF Rx Instructions: decreased by PCP on 06/19/22 rosuvastatin 40 mg tablet 40 mg feeding tube HS Qty: 90 4RF ipratropium-albuterol 0.5 mg-3 mg(2.5 mg base)/3 mL solution for nebulization 3 ml IN QID PRN (Reason: shortness of breath or wheezing) Qty: 90 4RF Rx Instructions: increased dose/use treatment 4 times/day as needed NOT SENT polyethylene glycol 3350 [Miralax] 17 gram/dose powder 17 g PO DAILY PRN (Reason: constipation) Rx Instructions: 06/19/22 instructed by PCP to take 1/2 cap daily, may reduce to half cap three times per week if daily is too much acetylcysteine [NAC] 600 mg capsule 600 mg PO BID Qty: 60 12RF Vancomycin 250 mg NEB BID 28 Days Qty: 280 12RF Hold Instructions: takes every other 28 days Rx Instructions: 250mg vancomycin in 5 cc of sterile water for nebulization To be given every other month for 28 consecutive days gabapentin 100 mg capsule 200 mg PO BID Qty: 360 3RF sulfamethoxazole-trimethoprim 200-40 mg/5 mL suspension 5 ml PO DAILY 28 Days Qty: 473 9RF Rx Instructions: Take daily for 4 weeks, then off for 4 weeks, etc nystatin 100,000 unit/gram powder 1 applic topical BID Qty: 60 12RF finasteride 5 mg tablet 5 mg PO DAILY Qty: 90 3RF tamsulosin [Flomax] 0.4 mg capsule 0.4 mg PO DAILY Qty: 90 3RF melatonin 3 MG tablet 6 mg PO HS Align 4 mg Capsule 4 mg PO QPM ferrous sulfate [FeroSul] 325 mg (65 mg iron) tablet 325 mg PO DAILY Patient Comments: TAKE 1 TABLET VIA FEEDING TUBE ONCE DAILY [employer] DVT-PE Treat 30D Start 5 mg (74 tabs) tablets,dose pack 5 mg PO ONCE Qty: 74 0RF Discharge Instructions Instructions: How to Use and Care for Your PEG Tube (ED) Additional Instructions: You were seen in the emergency department for the problem with your G-tube. We were able to remove the stuck feeding tube but we do not carry the supplies that your specific model of G-tube requires, we do not have any syringes that fit your G-tube. You need to present to [facility] to 3 at 10 AM tomorrow and ask for the interventional commercial lending vice president who is prepared to give you a bag of supplies. For any complication before that time I suggest that you present to the ED at [facility] as we do not have any equipment here that can get medicines in your specific tube and it was replaced yesterday at [facility]. Referrals: [facility] [Outside] (3 tomorrow at 10am, ask for IR Resident Dr. Singh to be paged. They will give you replacement G-tube supplies.) Nazia Chan [Primary Care Provider] - Discharge Data Discharge Date/Time-TO BE ENTERED AT DEPARTURE: 06/14/23 18:47
== END 2023-06-14 18:47 | disposition home or self-care (01) ==
PROVIDERS: Emergency Provider Physician Assistant; PCP Physician Assistant Medical
DX: K94.20 Gastrostomy complication, unspecified (principal)
CPT/HCPCS: 99281; 99282

== ENCOUNTER 2023-06-18 16:50 | Emergency (ER) | payer MEDICARE, MEDICAID, SELFPAY ==
[2023-06-18 17:00] VITALS: BP 135/76; PULSE 97; RESP 16; TEMP 36.9; O2SAT 99
--- NOTE | 2023-06-18 17:15 | DI.RAD_ITS ---
Exam(s) XR ABD FLAT UPRIGHT PA CHEST CLINICAL HISTORY: Constipation. COMPARISON: CT CT CHEST/ABD/PEL W from 05/26/[address] ABDOMEN PELVIS WO/W from 05/27/2023 CR,XR XR ABDOMEN FLAT UPRIGHT from 06/08/2023 CR,XR XR ABD FLAT UPRIGHT PA CHEST from 06/08/2023 FINDINGS: LUNGS: Fibrotic changes, otherwise clear. No pleural abnormality seen. HEART: Normal. MEDIASTINUM: Aorta extremely tortuous. Stent noted. BOWEL GAS PATTERN: Large quantity of stool. High-density material consistent with previously adminis tered oral contrast. Nondistended bowel loops. No air-fluid levels seen. Peg tube noted. ABNORMAL COLLECTIONS OF AIR: No abnormal collection of air. No pneumoperitoneum. CALCIFICATIONS: None. No radiopaque renal, ureteral, or bladder calcification. OTHER FINDINGS: Aorto bi-iliac stent. Renal artery stents. Clamp overlying pelvis, at the distal as pect of the PEG tube. IMPRESSION: 1. Nonobstructive bowel gas pattern. Large quantity of stool. 2. No acute pulmonary findings.
[2023-06-18 17:21] VITALS: BP 135/76; PULSE 97; RESP 16; TEMP 36.9; O2SAT 99
--- NOTE | 2023-06-18 17:25 | W.ED.GENAD ---
HPI General Stated Complaint: GenMedical Mode of arrival: ambulatory. CHER: 4 Date/Time Provider Initiated Documentation: 06/18/23 17:07. Limitations to Documentation: no limitations. Information obtained by: patient, family (), RN notes reviewed and old records reviewed. HPI Narrative: 78-year-old male with past medical history of laryngeal cancer, chronic respiratory failure with hypoxia, feeding tube, coronary artery disease hypertension hyperlipidemia hypothyroidism BPH, anxiety COPD presents to the ER with a chief complaint of constipation for the last 2 days. Over the last week he has been seen at [facility] for complications with his feeding tube and had his feeding tube replaced. He presents with his patient care associate who is the main historian, she reports that he had a dose of MiraLAX last night and 2 doses today and he had a small bowel movement upon arrival into the ER department. He reports a feeling of being stopped up and intermittent diarrhea he states he does not know what to do. He has no abdominal pain upon palpation. He does have some gastric contents around his feeding tube. Denies any vomiting fever or any other associated symptoms. He does have a appointment at [facility] tomorrow. Related Data Home Medications Medication Instructions Recorded Confirmed omeprazole 20 mg capsule,delayed 20 mg feeding tube BID #90 caps 10/05/19 06/18/23 release melatonin 3 mg tablet 6 mg PO HS 10/29/19 06/18/23 rosuvastatin 40 mg tablet 40 mg feeding tube HS #90 tabs 12/14/19 06/18/23 acetylcysteine 100 mg/mL (10 %) 4 ml inhalation BID 07/05/20 06/18/23 solution ipratropium 0.5 mg-albuterol 3 mg 3 ml IN QID PRN shortness of 07/30/20 06/18/23 (2.5 mg base)/3 mL nebulization breath or wheezing #90 mL soln amlodipine 5 mg tablet 5 mg PO DAILY 10/04/20 06/18/23 Bifidobacterium infantis 4 mg 4 mg PO QPM 08/03/21 06/18/23 capsule (Align) ferrous sulfate 325 mg (65 mg 325 mg PO DAILY 08/05/21 06/18/23 iron) tablet (FeroSul) aspirin 81 mg tablet,delayed 81 mg PO DAILY 11/25/21 06/18/23 release (Adult Aspirin Regimen) ropinirole 1 mg tablet 1 mg PO BID 01/07/22 06/18/23 acetaminophen 500 mg tablet 1,000 mg PO BID PRN 03/05/22 06/18/23 (Tylenol Extra Strength) polyethylene glycol 3350 17 17 g PO DAILY PRN constipation 06/19/22 06/18/23 gram/dose oral powder (Miralax) acetylcysteine 600 mg capsule (NAC) 600 mg PO BID #60 caps 08/29/22 06/18/23 Vancomycin 250 mg NEB BID 28 days #280 mL 09/29/22 06/18/23 levothyroxine See Rx Instructions .Route 10/27/22 06/18/23 DIRECTED gabapentin 100 mg capsule 200 mg (2 x 100 mg) PO BID #360 12/10/22 06/18/23 caps sulfamethoxazole 200 5 ml PO DAILY 28 days #473 mL 12/11/22 06/18/23 mg-trimethoprim 40 mg/5 mL oral suspension nystatin 100,000 unit/gram topical 1 applic topical BID #60 grams 02/19/23 06/18/23 powder sertraline 50 mg tablet 50 mg PO DAILY #30 tabs 04/14/23 06/18/23 finasteride 5 mg tablet 5 mg PO DAILY #90 tabs 04/16/23 06/18/23 tamsulosin 0.4 mg capsule (Flomax) 0.4 mg PO DAILY #90 caps 04/16/23 06/18/23 apixaban 5 mg (74 tabs) tablets in 5 mg PO ONCE #74 dose pk 04/23/23 06/18/23 a dose pack (Labmeeting DVT-PE Treat 30D Start) Previous Rx's Medication Instructions Recorded omeprazole 20 mg capsule,delayed 20 mg feeding tube BID #90 caps 10/05/19 release rosuvastatin 40 mg tablet 40 mg feeding tube HS #90 tabs 12/14/19 ipratropium 0.5 mg-albuterol 3 mg 3 ml IN QID PRN shortness of 07/30/20 (2.5 mg base)/3 mL nebulization breath or wheezing #90 mL soln acetylcysteine 600 mg capsule (NAC) 600 mg PO BID #60 caps 08/29/22 Vancomycin 250 mg NEB BID 28 days #280 mL 09/29/22 gabapentin 100 mg capsule 200 mg (2 x 100 mg) PO BID #360 12/10/22 caps sulfamethoxazole 200 5 ml PO DAILY 28 days #473 mL 12/11/22 mg-trimethoprim 40 mg/5 mL oral suspension nystatin 100,000 unit/gram topical 1 applic topical BID #60 grams 02/19/23 powder sertraline 50 mg tablet 50 mg PO DAILY #30 tabs 04/14/23 finasteride 5 mg tablet 5 mg PO DAILY #90 tabs 04/16/23 tamsulosin 0.4 mg capsule (Flomax) 0.4 mg PO DAILY #90 caps 04/16/23 apixaban 5 mg (74 tabs) tablets in 5 mg PO ONCE #74 dose pk 04/23/23 a dose pack (Labmeeting DVT-PE Treat 30D Start) Allergies Allergy/AdvReac Type Severity Reaction Status Date / Time pollen extracts Allergy Mild Verified 06/18/23 17:06 Tetracyclines Allergy Unknown SKIN RASH Verified 06/18/23 17:06 Review of Systems All systems reviewed & are unremarkable except as noted in HPI and below Gastrointestinal Gastrointestinal: Reports constipation, Denies nausea and Denies vomiting PFSH All Active Problems (Updated 06/18/23 @ 18:09 by Elysia Griffin NP) Constipation (Acute) Complication of gastrostomy tube (Acute) Uses feeding tube (Acute) Esophageal stricture (Acute) Gross hematuria (Acute) Ambulatory dysfunction (Acute) Leukocytosis (leucocytosis) (Acute) UTI (urinary tract infection) (Acute) Multiple subsegmental pulmonary emboli without acute cor pulmonale (Acute) C1 cervical fracture (Acute) Gastrostomy tube dysfunction (Acute) Advance care planning (Acute) Encounter for hospice care discussion (Acute) Unintentional weight loss of 10% body weight within 6 months (Acute) Dysuria (Acute) Malfunctioning jejunostomy tube (Acute) Need for follow-up by social media assistant (Acute) Dysphagia (Acute) Weakness (Acute) Impaired instrumental activities of daily living (Acute) Plantar fascial fibromatosis (Acute) Feeding tube dysfunction (Acute) Sensorineural hearing loss (SNHL) of both ears (Acute) Otalgia of right ear (Acute) Neck pain on right side (Acute) Neck pain on right side (Acute) Full code status (Acute) Need for home health care (Acute) MRSA pneumonia (Acute) pt likely colonized Occlusion of right vertebral artery (Acute) Hypoxemia (Acute) Complication of feeding tube (Acute) Peripheral neuropathy (Acute 02/21/15) PAOD (peripheral arterial occlusive disease) (Acute) COPD (chronic obstructive pulmonary disease) (Chronic) G tube feedings (Acute) 20F 3.0cm 11/30/22. Routine change every 4 months. 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 Hypertension Tobacco use COPD (chronic obstructive pulmonary disease) Post herpetic neuralgia Hypothyroidism Hyperlipemia Depression Anxiety Anemia Conjunctivitis, chronic Surgical History S/P AAA (abdominal aortic aneurysm) repair Status post laryngectomy History of esophagogastroduodenoscopy (EGD) (~08/10/19) Daron Casper APRN @ [facility]: hiatal hernia, GERD, Reyes's esophagitis, neuromuscular dysfunction History of laryngectomy Status post cardiac catheterization Status post cataract extraction and insertion of intraocular lens of right eye (07/12/18) History of tarsorrhaphy Status post cataract extraction and insertion of intraocular lens of left eye (04/30/12) 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) Sin-mullins button placed by Dr Elia Mcdonald, [facility] PROCEDURES RT/LEFT HEART CARD CATH COMPLETE LARYNGECTOMY Esophagoplasty EGD - MAC (07/06/17) Colonoscopy - MAC (12/22/16) History of radical laryngectomy Family History Nephew Throat cancer Maternal Cousin Cancer Social History Smoking/Tobacco Use Status: Former Tobacco Use Quit Date: 04/23/13 Tobacco: How many years used: 20 Smoking risk assessment performed?: Yes Alcohol Intake: never Drug use: Never Substance use type: does not use Housing: apartment Current gender identity: male Do you feel safe at home: Yes Do you feel safe in your relationship?: Yes Exam Const General: cooperative and frail appearing (Appears chronically ill, but at baseline, has a trach and Peg tube) Nutritional Appearance: thin Orientation: alert, awake and oriented x3 Resp Auscultation: clear to auscultation bilaterally Cardio Rate: regular rate GI Inspection: other (PED tube noted with surrounding stomach contents. No erythema or swelling) Palpation: soft and nontender Course Vital Signs Vital signs: Vital Signs Temperature 36.9 C 06/18/23 17:00 Pulse 97 H 06/18/23 17:00 Respiratory Rate 16 06/18/23 17:00 Blood Pressure 135/76 06/18/23 17:00 Pulse Oximetry 99 06/18/23 17:00 Temperature 36.9 C 06/18/23 17:21 Temperature Source Skin 06/18/23 17:21 Pulse 97 H 06/18/23 17:21 Respiratory Rate 16 06/18/23 17:21 Respiratory Effort Normal 06/18/23 17:06 Blood Pressure 135/76 06/18/23 17:21 Blood Pressure Position Sitting 06/18/23 17:21 Pulse Oximetry 99 06/18/23 17:21 Oxygen Delivery Method Room Air 06/18/23 17:21 Oxygen Flow Rate 0 06/18/23 17:21 Medical Decision Making 78-year-old male with past medical history of laryngeal cancer, chronic respiratory failure with hypoxia, feeding tube, coronary artery disease hypertension hyperlipidemia hypothyroidism BPH, anxiety COPD presents to the ER with a chief complaint of constipation for the last 2 days. Over the last week he has been seen at [facility] for complications with his feeding tube and had his feeding tube replaced. He presents with his patient care associate who is the main historian, she reports that he had a dose of MiraLAX last night and 2 doses today and he had a small bowel movement upon arrival into the ER department. He reports a feeling of being stopped up and intermittent diarrhea he states he does not know what to do. He has no abdominal pain upon palpation. He does have some gastric contents around his feeding tube. Denies any vomiting fever or any other associated symptoms. He does have a appointment at [facility] tomorrow. 3 view chest x-ray ordered, fleets enema and dressing care. I did inform family and patient that CT imaging will be considered if needed. According to staffing coordinator patient usually does not have a bowel movement except for every 2 to 3 days and has a history of constipation. Patient is up to bedside commode according to staffing coordinator, she reports that there is some leaking stool the enema. X-ray does show moderate stool with a possible stool impaction noted. Soap suds enema ordered, patient is on bedside commode again. Patient has had some stool production small formed balls of stool. Will send him home with glycerin suppositories. Discussed home care including fleets enemas which he can get [id number] he does have an appoint with [facility] tomorrow. patient discharged into the care of his significant other. Quality:SDOH Health Related Social Needs: No Data to Display Discharge Plan Disposition Patient Disposition: Home Condition: Improving Discharge Details Clinical Impression: Constipation Primary Care Provider: Nazia Chan ED Provider: Elysia Griffin Home Meds and New Rx's Prescriptions: No Action ropinirole 1 mg tablet 1 mg PO BID aspirin [Adult Aspirin Regimen] 81 mg tablet,delayed release (DR/EC) 81 mg PO DAILY acetaminophen [Tylenol Extra Strength] 500 mg tablet 1,000 mg PO BID PRN omeprazole 20 mg capsule,delayed release(DR/EC) 20 mg feeding tube BID Qty: 90 4RF acetylcysteine 100 mg/mL (10 %) solution 4 ml inhalation BID amlodipine 5 mg tablet 5 mg PO DAILY levothyroxine See Rx Instructions .ROUTE DIRECTED Rx Instructions: as directed; sertraline 50 mg tablet 50 mg PO DAILY Qty: 30 2RF Rx Instructions: decreased by PCP on 06/19/22 rosuvastatin 40 mg tablet 40 mg feeding tube HS Qty: 90 4RF ipratropium-albuterol 0.5 mg-3 mg(2.5 mg base)/3 mL solution for nebulization 3 ml IN QID PRN (Reason: shortness of breath or wheezing) Qty: 90 4RF Rx Instructions: increased dose/use treatment 4 times/day as needed NOT SENT polyethylene glycol 3350 [Miralax] 17 gram/dose powder 17 g PO DAILY PRN (Reason: constipation) Rx Instructions: 06/19/22 instructed by PCP to take 1/2 cap daily, may reduce to half cap three times per week if daily is too much acetylcysteine [NAC] 600 mg capsule 600 mg PO BID Qty: 60 12RF Vancomycin 250 mg NEB BID 28 Days Qty: 280 12RF Hold Instructions: takes every other 28 days Rx Instructions: 250mg vancomycin in 5 cc of sterile water for nebulization To be given every other month for 28 consecutive days gabapentin 100 mg capsule 200 mg PO BID Qty: 360 3RF sulfamethoxazole-trimethoprim 200-40 mg/5 mL suspension 5 ml PO DAILY 28 Days Qty: 473 9RF Rx Instructions: Take daily for 4 weeks, then off for 4 weeks, etc nystatin 100,000 unit/gram powder 1 applic topical BID Qty: 60 12RF finasteride 5 mg tablet 5 mg PO DAILY Qty: 90 3RF tamsulosin [Flomax] 0.4 mg capsule 0.4 mg PO DAILY Qty: 90 3RF melatonin 3 MG tablet 6 mg PO HS Align 4 mg Capsule 4 mg PO QPM ferrous sulfate [FeroSul] 325 mg (65 mg iron) tablet 325 mg PO DAILY Patient Comments: TAKE 1 TABLET VIA FEEDING TUBE ONCE DAILY Eliquis DVT-PE Treat 30D Start 5 mg (74 tabs) tablets,dose pack 5 mg PO ONCE Qty: 74 0RF Discharge Instructions Instructions: Constipation (ED) Additional Instructions: Please use the glycerin suppositories as directed 1 up to 3 times daily as needed. You may use additional fleets enemas which are [id number] as needed also. Increase oral fluids. Follow up with primary care provider in 3-5 days. Return to ED sooner if any worsening or concerns. Increase oral fluids. Please keep your appointment tomorrow at [facility] as previously scheduled. Referrals: Nazia Chan [Primary Care Provider] - 3 days
--- NOTE | 2023-06-18 18:15 | NUR.NOTE ---
Nursing Note: RN cleansed sofie-gastric tube area per MD order. Tube secured with (2) split drain sponges and tape.
[2023-06-18] MEDS: Glycerin Adult Suppository JAR 1 SUPP PR (19:17)
[2023-06-18] MEDS: Glycerin Adult Suppository JAR 11 SUPP PR (19:50)
[2023-06-18 20:41] VITALS: O2SAT 94
== END 2023-06-18 20:38 | disposition home or self-care (01) ==
PROVIDERS: Emergency Provider Registered Nurse Emergency; PCP Physician Assistant Medical
DX: K59.00 Constipation, unspecified (principal); I25.10 Atherosclerotic heart disease of native coronary artery without angina pectoris; I10 Essential (primary) hypertension; J44.9 Chronic obstructive pulmonary disease, unspecified; E78.5 Hyperlipidemia, unspecified; Z93.0 Tracheostomy status; Z87.891 Personal history of nicotine dependence; Z79.82 Long term (current) use of aspirin; Z79.01 Long term (current) use of anticoagulants
CPT/HCPCS: 99283; 74022

== ENCOUNTER 2023-06-25 04:18 | Emergency (ER) | payer MEDICARE, MEDICAID, SELFPAY ==
--- NOTE | 2023-06-25 04:15 | RT.EKG_ITS ---
APPROVED REPORT Exam: Resting ECG Reason for Exam: weakness Patient Location: E HR:82 bpm ECG Measurements Heart Rate 82 AXIS FL 253 P 56 QRSd 155 QRS 74 QT 411 T 28 QTc 480 Conclusion Sinus rhythm...normal P axis, V-rate 60- 99 Prolonged FL interval...FL >220, V-rate 50- 90 Probable left atrial enlargement...P >50mS, <-0.10mV V1 no ST segment or T wave anbnormalities to suggest occlusive [place] Right bundle branch block...QRSd>120, terminal axis(90,270)
--- NOTE | 2023-06-25 04:25 | W.ED.GENAD ---
HPI General CHER: 4 Date/Time Provider Initiated Documentation: 06/25/23 04:25. Related Data Home Medications Medication Instructions Recorded Confirmed omeprazole 20 mg capsule,delayed 20 mg feeding tube BID #90 caps 10/05/19 06/18/23 release melatonin 3 mg tablet 6 mg PO HS 10/29/19 06/18/23 rosuvastatin 40 mg tablet 40 mg feeding tube HS #90 tabs 12/14/19 06/18/23 acetylcysteine 100 mg/mL (10 %) 4 ml inhalation BID 07/05/20 06/18/23 solution ipratropium 0.5 mg-albuterol 3 mg 3 ml IN QID PRN shortness of 07/30/20 06/18/23 (2.5 mg base)/3 mL nebulization breath or wheezing #90 mL soln amlodipine 5 mg tablet 5 mg PO DAILY 10/04/20 06/18/23 Bifidobacterium infantis 4 mg 4 mg PO QPM 08/03/21 06/18/23 capsule (Align) ferrous sulfate 325 mg (65 mg 325 mg PO DAILY 08/05/21 06/18/23 iron) tablet (FeroSul) aspirin 81 mg tablet,delayed 81 mg PO DAILY 11/25/21 06/18/23 release (Adult Aspirin Regimen) ropinirole 1 mg tablet 1 mg PO BID 01/07/22 06/18/23 acetaminophen 500 mg tablet 1,000 mg PO BID PRN 03/05/22 06/18/23 (Tylenol Extra Strength) polyethylene glycol 3350 17 17 g PO DAILY PRN constipation 06/19/22 06/18/23 gram/dose oral powder (Miralax) acetylcysteine 600 mg capsule (NAC) 600 mg PO BID #60 caps 08/29/22 06/18/23 Vancomycin 250 mg NEB BID 28 days #280 mL 09/29/22 06/18/23 levothyroxine See Rx Instructions .Route 10/27/22 06/18/23 DIRECTED gabapentin 100 mg capsule 200 mg (2 x 100 mg) PO BID #360 12/10/22 06/18/23 caps sulfamethoxazole 200 5 ml PO DAILY 28 days #473 mL 12/11/22 06/18/23 mg-trimethoprim 40 mg/5 mL oral suspension nystatin 100,000 unit/gram topical 1 applic topical BID #60 grams 02/19/23 06/18/23 powder sertraline 50 mg tablet 50 mg PO DAILY #30 tabs 04/14/23 06/18/23 finasteride 5 mg tablet 5 mg PO DAILY #90 tabs 04/16/23 06/18/23 tamsulosin 0.4 mg capsule (Flomax) 0.4 mg PO DAILY #90 caps 04/16/23 06/18/23 apixaban 5 mg (74 tabs) tablets in 5 mg PO ONCE #74 dose pk 04/23/23 06/18/23 a dose pack ([employer] DVT-PE Treat 30 Start) Previous Rx's Medication Instructions Recorded omeprazole 20 mg capsule,delayed 20 mg feeding tube BID #90 caps 10/05/19 release rosuvastatin 40 mg tablet 40 mg feeding tube HS #90 tabs 12/14/19 ipratropium 0.5 mg-albuterol 3 mg 3 ml IN QID PRN shortness of 07/30/20 (2.5 mg base)/3 mL nebulization breath or wheezing #90 mL soln acetylcysteine 600 mg capsule (NAC) 600 mg PO BID #60 caps 08/29/22 Vancomycin 250 mg NEB BID 28 days #280 mL 09/29/22 gabapentin 100 mg capsule 200 mg (2 x 100 mg) PO BID #360 12/10/22 caps sulfamethoxazole 200 5 ml PO DAILY 28 days #473 mL 12/11/22 mg-trimethoprim 40 mg/5 mL oral suspension nystatin 100,000 unit/gram topical 1 applic topical BID #60 grams 02/19/23 powder sertraline 50 mg tablet 50 mg PO DAILY #30 tabs 04/14/23 finasteride 5 mg tablet 5 mg PO DAILY #90 tabs 04/16/23 tamsulosin 0.4 mg capsule (Flomax) 0.4 mg PO DAILY #90 caps 04/16/23 apixaban 5 mg (74 tabs) tablets in 5 mg PO ONCE #74 dose pk 04/23/23 a dose pack ([employer] DVT-PE Treat Start) Allergies Allergy/AdvReac Type Severity Reaction Status Date / Time pollen extracts Allergy Mild Verified 06/18/23 17:06 Tetracyclines Allergy Unknown SKIN RASH Verified 06/18/23 17:06 PFSH All Active Problems (Updated 06/18/23 @ 18:09 by Elysia Griffin NP) Constipation (Acute) Complication of gastrostomy tube (Acute) Uses feeding tube (Acute) Esophageal stricture (Acute) Gross hematuria (Acute) Ambulatory dysfunction (Acute) Leukocytosis (leucocytosis) (Acute) UTI (urinary tract infection) (Acute) Multiple subsegmental pulmonary emboli without acute cor pulmonale (Acute) C1 cervical fracture (Acute) Gastrostomy tube dysfunction (Acute) Advance care planning (Acute) Encounter for hospice care discussion (Acute) Unintentional weight loss of 10% body weight within 6 months (Acute) Dysuria (Acute) Malfunctioning jejunostomy tube (Acute) Need for follow-up by older adult social work specialist (Acute) Dysphagia (Acute) Weakness (Acute) Impaired instrumental activities of daily living (Acute) Plantar fascial fibromatosis (Acute) Feeding tube dysfunction (Acute) Sensorineural hearing loss (SNHL) of both ears (Acute) Otalgia of right ear (Acute) Neck pain on right side (Acute) Neck pain on right side (Acute) Full code status (Acute) Need for home health care (Acute) MRSA pneumonia (Acute) pt likely colonized Occlusion of right vertebral artery (Acute) Hypoxemia (Acute) Complication of feeding tube (Acute) Peripheral neuropathy (Acute 02/21/15) PAOD (peripheral arterial occlusive disease) (Acute) COPD (chronic obstructive pulmonary disease) (Chronic) G tube feedings (Acute) 20F 3.0cm 11/30/22. Routine change every 4 months. 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 Hypertension Tobacco use COPD (chronic obstructive pulmonary disease) Post herpetic neuralgia Hypothyroidism Hyperlipemia Depression Anxiety Anemia Conjunctivitis, chronic Surgical History S/P AAA (abdominal aortic aneurysm) repair Status post laryngectomy History of esophagogastroduodenoscopy (EGD) (~08/10/19) Daron Casper APRN [place] [facility] [place]: hiatal hernia, GERD, Reyes's esophagitis, neuromuscular dysfunction History of laryngectomy Status post cardiac catheterization Status post cataract extraction and insertion of intraocular lens of right eye (07/12/18) History of tarsorrhaphy Status post cataract extraction and insertion of intraocular lens of left eye (04/30/12) 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) Sin-mullins button placed by Dr Elia Mcdonald, [facility] PROCEDURES RT/LEFT HEART CARD CATH COMPLETE LARYNGECTOMY Esophagoplasty EGD - MAC (07/06/17) Colonoscopy - MAC (12/22/16) History of radical laryngectomy Family History Nephew Throat cancer Maternal Cousin Cancer Social History Smoking/Tobacco Use Status: Former Tobacco Use Quit Date: 04/23/13 Tobacco: How many years used: 20 Smoking risk assessment performed?: Yes Alcohol Intake: never Drug use: Never Substance use type: does not use Housing: apartment Current gender identity: male Do you feel safe at home: Yes Do you feel safe in your relationship?: Yes Medical Decision Making Quality:SDOH Health Related Social Needs: No Data to Display Discharge Plan Discharge Details Primary Care Provider: Nazia Chan ED Provider: Deja Clemons Home Meds and New Rx's Prescriptions: No Action ropinirole 1 mg tablet 1 mg PO BID aspirin [Adult Aspirin Regimen] 81 mg tablet,delayed release (DR/EC) 81 mg PO DAILY acetaminophen [Tylenol Extra Strength] 500 mg tablet 1,000 mg PO BID PRN omeprazole 20 mg capsule,delayed release(DR/EC) 20 mg feeding tube BID Qty: 90 4RF acetylcysteine 100 mg/mL (10 %) solution 4 ml inhalation BID amlodipine 5 mg tablet 5 mg PO DAILY levothyroxine See Rx Instructions .ROUTE DIRECTED Rx Instructions: as directed; sertraline 50 mg tablet 50 mg PO DAILY Qty: 30 2RF Rx Instructions: decreased by PCP on 06/19/22 rosuvastatin 40 mg tablet 40 mg feeding tube HS Qty: 90 4RF ipratropium-albuterol 0.5 mg-3 mg(2.5 mg base)/3 mL solution for nebulization 3 ml IN QID PRN (Reason: shortness of breath or wheezing) Qty: 90 4RF Rx Instructions: increased dose/use treatment 4 times/day as needed NOT SENT polyethylene glycol 3350 [Miralax] 17 gram/dose powder 17 g PO DAILY PRN (Reason: constipation) Rx Instructions: 06/19/22 instructed by PCP to take 1/2 cap daily, may reduce to half cap three times per week if daily is too much acetylcysteine [NAC] 600 mg capsule 600 mg PO BID Qty: 60 12RF Vancomycin 250 mg NEB BID 28 Days Qty: 280 12RF Hold Instructions: takes every other 28 days Rx Instructions: 250mg vancomycin in 5 cc of sterile water for nebulization To be given every other month for 28 consecutive days gabapentin 100 mg capsule 200 mg PO BID Qty: 360 3RF sulfamethoxazole-trimethoprim 200-40 mg/5 mL suspension 5 ml PO DAILY 28 Days Qty: 473 9RF Rx Instructions: Take daily for 4 weeks, then off for 4 weeks, etc nystatin 100,000 unit/gram powder 1 applic topical BID Qty: 60 12RF finasteride 5 mg tablet 5 mg PO DAILY Qty: 90 3RF tamsulosin [Flomax] 0.4 mg capsule 0.4 mg PO DAILY Qty: 90 3RF melatonin 3 MG tablet 6 mg PO HS Align 4 mg Capsule 4 mg PO QPM ferrous sulfate [FeroSul] 325 mg (65 mg iron) tablet 325 mg PO DAILY Patient Comments: TAKE 1 TABLET VIA FEEDING TUBE ONCE DAILY [place] DVT-PE Treat 30D Start 5 mg (74 tabs) tablets,dose pack 5 mg PO ONCE Qty: 74 0RF
[2023-06-25 04:26] VITALS: BP 196/80; PULSE 84; RESP 18; TEMP 36.9; O2SAT 98
[2023-06-25 04:31] VITALS: RESP 18
--- NOTE | 2023-06-25 04:45 | DI.CT_ITS ---
Exam(s) CT ABDOMEN PELVIS W EXAM: CT ABDOMEN PELVIS W CLINICAL HISTORY: hematemesis. TECHNIQUE: Imaging Protocol: Axial computed tomography images with coronal and sagittal reformatted images were created and reviewed CONTRAST MATERIAL: Intravenous: Omnipaque-350 100cc Oral: None COMPARISON: CT CT ABDOMEN PELVIS WO/W from 05/27/2023 FINDINGS: VISUALIZED LUNG BASES: No nodules nor pleural effusions evident. Chronic appearing lung markings in the visualized lung bases again noted. No pleural effusions. ABDOMEN: There is no ascites. LIVER: There are no focal hepatic lesions evident. No dilated intrahepatic ducts. GALLBLADDER/BILIARY: Small gallstone noted on the dependent wall of the gallbladder. No gallbladder wall edema seen.. No pericholecystic fluid. CBD diameter is upper normal. PANCREAS: No evidence of pancreatic mass nor dilatation of the pancreatic duct. SPLEEN: Spleen is not enlarged. No obvious intrasplenic lesions. Splenic and portal veins are paten t. ADRENALS: There are no significant adrenal masses. KIDNEYS:Normal size. Single calcification noted in the left kidney. Calculus versus vascular calcif ication. There is a benign cyst in the inferior pole of the right kidney which measures 1.8 x 1.8 cm and does not require further imaging workup.. No solid renal lesions. No hydronephrosis. ABDOMINAL AORTA: There is an aortic EVAR which extends from the mid thoracic level down through the a bdominal aorta and with the anastomoses at the distal common iliac artery levels. There are also steffi nts in the celiac and superior mesenteric and bilateral renal arteries. The maximum diameter of the [place] aortic sac is 6 cm which is unchanged. No obvious endoleak, realizing limitations of this typ e of study for detecting aortic EVAR endoleaks. There is no occlusion of the graft. LYMPH NODES:There is no retroperitoneal nor paraaortic adenopathy. ABDOMINAL WALL: There is a percutaneous gastric PEG which appears to be in satisfactory position. GI: There is no evidence of bowel obstruction, free air, nor abscess. There are no ischemic appearing bowel loops. PELVIS: GI: No evidence of appendicitis.No evidence of sigmoid diverticulitis. LYMPH NODES: There is no intrapelvic nor inguinal adenopathy. REPRODUCTIVE: Prostate minimally prominent. URINARY BLADDER: Urinary bladder is distended and there are multiple posteriorly located diverticuli ranging up to 3 x 4 cm. There are no obvious masses nor radiopaque calculi in the bladder lumen nor within the multiple bladder diverticuli. OSSEOUS: Wedge compression fracture of T12 and superior endplate compression fracture of L1 again not ed, unchanged. IMPRESSION: 1. Stable appearance of the long length aortic EVAR. The [place] aortic sac again measures 5.9-6.0 cm . 2. Cholelithiasis. Single small gallstone noted. No obvious evidence of acute cholecystitis. CBD n ot dilated. 3. Gastric PEG in satisfactory position. No evidence of bowel obstruction, free air, nor abscess. N o evidence of ischemic appearing bowel loops in this patient who has stents in both the celiac and sanchez perior mesenteric artery origins (as well as bilateral renal artery stents). 4. Multiple bladder diverticuli again noted measuring up to 3 x 4 cm. Unchanged nonacute fractures of T12 and L1. RADIATION DOSE DELIVERED: 561.66mGy.cm Total DLP DATA REPOSITORY: All CT scans at this facility are submitted to the National Radiology Data Registry (NRDR) Dose Index Registry (DIR) with the [employer] (ACR). RADIATION OPTIMIZATION: All CT scans at this facility use at least one of these dose optimization te chniques: automated exposure control; mA and/or kV adjustment per patient size (includes targeted exa ms where dose is matched to clinical indication); or iterative reconstruction.
--- NOTE | 2023-06-25 08:18 | DI.VRAD_ITS ---
PROCEDURE INFORMATION: Exam: CT Abdomen And Pelvis With Contrast Exam date and time: 06/25/2023 5:36 AM Age: 78 years old Clinical indication: Pain; Other: Hematemesis; Other: PT sts severe leg cramps; Additional info: Hematemesis. PT sts severe leg cramps TECHNIQUE: Imaging protocol: Computed tomography of the abdomen and pelvis with contrast. Contrast material: OMNI 350; Contrast volume: 100 ml; Contrast route: INTRAVENOUS (IV); COMPARISON: CT ABDOMEN PELVIS WO/W 05/27/2023 2:07 PM FINDINGS: Limitations: Images degraded due to artifact caused by patient motion and arm positioning as well as metallic hardware. Lungs: Emphysematous changes in the lungs. Scarring in both lungs. Extensive reticulonodular densities and nonspecific ground-glass opacities in both lungs, unchanged. Liver: No focal hepatic lesion identified. Gallbladder and bile ducts: Cholelithiasis. Pancreas: No CT evidence for acute pancreatitis. Spleen: No splenomegaly. Adrenal glands: No mass. Kidneys and ureters: Right renal cyst. Lobulations in the kidneys. No hydronephrosis. Nonobstructing left renal calculus. Stomach and bowel: Percutaneous gastrostomy. The stomach appears thickened but is incompletely distended. No intestinal obstruction is evident. Retained fecal material throughout the colon. Correlate clinically for history of constipation. Mild rectal thickening. Appendix: No evidence of appendicitis. Intraperitoneal space: No free air. Vasculature: 5.8 cm infrarenal abdominal aortic aneurysm status post repair with aorto bi-iliac stent. Bilateral renal artery stents. Celiac axis and superior mesenteric artery stents. Moderate narrowing of the superior mesenteric artery. Lymph nodes: No acute findings. Urinary bladder: Distended urinary bladder. Bladder diverticula. Reproductive: No acute findings. Bones/joints: Compression deformities at T12 and L1, also seen previously. Soft tissues: No pertinent acute abnormality seen. IMPRESSION: 1. The stomach appears thickened but is incompletely distended. Cannot exclude gastritis or neoplasm. Follow-up as clinically warranted. 2. Rectal thickening. Consider proctitis, neoplasm. 3. Infrarenal abdominal aortic aneurysm. 4. Additional findings as above. Dictated and Authenticated by: Concha Latham MD. Ordering:TWIN Short MD
[2023-06-25 08:53] VITALS: BP 136/70; PULSE 78; RESP 16; TEMP 36.6; O2SAT 97
[2023-06-25 08:58] LABS: Calcium 9.1 mg/dL (8.5-10.1); Glucose 127 mg/dL (74-106)
[2023-06-25 08:59] LABS: ALT 26 U/L (16-63); AST 32 U/L (15-37); Albumin 3.3 g/dL (3.4-5.0); Alkaline Phosphatase 73 U/L (46-116); Anion Gap 4.4 mmol/L (3-11); BUN 24 mg/dL (7-18); Bilirubin, Total 0.4 mg/dL (0.2-1.0); CO2 33.6 mmol/L (21.0-32.0); Chloride 97 mmol/L (98-107); Estimated GFR 77.52 (mL/min/1.73m2); Magnesium 2.1 mg/dL (1.8-2.4); Potassium 3.4 mmol/L (3.5-5.1); Sodium 135 mmol/L (136-145); Total Protein 7.2 g/dL (6.4-8.2); Troponin I < 50 ng/L (< or =60)
[2023-06-25] MEDS: Omnipaque 350 MG/ML 100 ML BTL IJ (09:02)
[2023-06-25 09:03] LABS: Lipase 43 U/L (16-77)
[2023-06-25 09:04] LABS: Absolute Basophil Count 0.18 10^3/uL (0.0-0.2); Absolute Eosinophil Count 0.43 10^3/uL (0.0-0.7); Absolute Lymphocyte Count 1.34 10^3/uL (1.2-3.4); Absolute Monocyte Count 0.86 10^3/uL (0.1-0.8); Absolute Neutrophil Count 6.59 10^3/uL (1.2-6.7); Basophils % 1.9; Eosinophils % 4.6; HCT 33.7 % (40.0-50.0); HGB 11.3 g/dL (13.5-17.5); Immature Grans % 0.3; Lymphocytes % 14.2; MCH 32.8 pg (27.0-33.0); MCHC 33.5 % (32.0-36.0); MCV 98 fL (80-95); MPV 9.9 fL (8.0-11.0); Monocytes % 9.1; Neutrophils % 69.9; Platelet Count 245 10^3/uL (130-400); RBC 3.44 10^6/uL (4.36-5.78); RDW 12.7 % (11.8-14.1); RDW-SD 45.2 fL; WBC 9.43 10^3/uL (4.4-10.8)
[2023-06-25 09:05] LABS: Abs Immature Grans 0.03 10^3/uL (0.0-0.06)
[2023-06-25 09:08] LABS: INR 1.1 (0.9-1.1); Prothrombin Time 11.3 sec (9.1-11.1)
== END 2023-06-25 09:54 | disposition home or self-care (01) ==
LOC: ER 04:34
PROVIDERS: Emergency Provider Student in an Organized Health Care Education/Training Program; PCP Physician Assistant Medical
DX: K92.2 Gastrointestinal hemorrhage, unspecified (principal); K80.20 Calculus of gallbladder without cholecystitis without obstruction; I25.10 Atherosclerotic heart disease of native coronary artery without angina pectoris; I10 Essential (primary) hypertension; E78.5 Hyperlipidemia, unspecified; J44.9 Chronic obstructive pulmonary disease, unspecified; Z79.82 Long term (current) use of aspirin; Z79.01 Long term (current) use of anticoagulants; Z85.21 Personal history of malignant neoplasm of larynx; Z93.1 Gastrostomy status
CPT/HCPCS: 80053; 83690; 86850; 86900; 86901; 93005; 99285; 74177; 83735; 84484; 85025; 85610; 85730; 93010; 99284; J2270; J3490

== ENCOUNTER → 2023-07-02 13:02 | Outpatient (BNVA) | payer MEDICARE, MEDICAID, SELFPAY | PROVIDERS: PCP Physician Assistant Medical; Referring Provider Physician Assistant Medical; Visit Provider Student in an Organized Health Care Education/Training Program | DX: J43.1 Panlobular emphysema (principal); J15.212 Pneumonia due to Methicillin resistant Staphylococcus aureus; R05.9 Cough, unspecified; C32.9 Malignant neoplasm of larynx, unspecified | CPT/HCPCS: 99214 ==

== ENCOUNTER 2023-07-13 03:53 | Outpatient (CLI) | payer MEDICARE, MEDICAID, SELFPAY ==
[2023-07-13 14:03] LABS: D-Dimer 4485 ng/mlFEU (<500)
[2023-07-13 14:07] LABS: CREATININE 0.8 mg/dL (0.70-1.30); Estimated GFR 91.15 (mL/min/1.73m2)
== END 2023-07-13 03:54 | disposition home or self-care (01) ==
LOC: LBO 03:53
PROVIDERS: PCP Physician Assistant Medical; Visit Provider Student in an Organized Health Care Education/Training Program
DX: S12.001A Unspecified nondisplaced fracture of first cervical vertebra, initial encounter for closed fracture (principal); I26.99 Other pulmonary embolism without acute cor pulmonale; X58.XXXA Exposure to other specified factors, initial encounter
CPT/HCPCS: 36415; 82565; 85379

== ENCOUNTER → 2023-07-28 08:52 | Outpatient (BNVA) | payer MEDICARE, MEDICAID, SELFPAY | PROVIDERS: PCP Physician Assistant Medical; Referring Provider Physician Assistant Medical; Visit Provider Urology | DX: R31.0 Gross hematuria (principal) | CPT/HCPCS: 81003; 99213 ==

== ENCOUNTER 2023-07-28 12:08 | Outpatient (REF) | payer MEDICARE, MEDICAID, SELFPAY | END 2023-07-28 12:09 | disposition home or self-care (01) | LOC: LBN 12:08 | PROVIDERS: PCP Physician Assistant Medical; Visit Provider Urology | DX: N39.0 Urinary tract infection, site not specified (principal) | CPT/HCPCS: 87086 ==

== ENCOUNTER 2023-08-06 16:50 | Emergency (ER) | payer MEDICARE, MEDICAID, SELFPAY ==
[2023-08-06 16:53] VITALS: BP 121/78; PULSE 89; RESP 18; TEMP 36.6; O2SAT 100
[2023-08-06 17:06] VITALS: BP 121/78; PULSE 89; RESP 18; TEMP 36.6; O2SAT 100
[2023-08-06 17:35] VITALS: O2SAT 98
--- NOTE | 2023-08-06 17:47 | W.ED.GENAD ---
Discharge Plan Disposition Patient Disposition: Home Discharge Details Clinical Impression: Hemoptysis Primary Care Provider: Nazia Chan ED Provider: So Whalen Home Meds and New Rx's Prescriptions: No Action ropinirole 1 mg tablet 1 mg PO BID aspirin [Adult Aspirin Regimen] 81 mg tablet,delayed release (DR/EC) 81 mg PO DAILY acetaminophen [Tylenol Extra Strength] 500 mg tablet 1,000 mg PO BID PRN fluconazole [Diflucan] 200 mg tablet 200 mg PO DAILY Qty: 3 0RF omeprazole 20 mg capsule,delayed release(DR/EC) 20 mg feeding tube BID Qty: 90 4RF acetylcysteine 100 mg/mL (10 %) solution 4 ml inhalation BID amlodipine 5 mg tablet 5 mg PO DAILY levothyroxine See Rx Instructions .ROUTE DIRECTED Rx Instructions: as directed; rosuvastatin 40 mg tablet 40 mg feeding tube HS Qty: 90 4RF ipratropium-albuterol 0.5 mg-3 mg(2.5 mg base)/3 mL solution for nebulization 3 ml IN QID PRN (Reason: shortness of breath or wheezing) Qty: 90 4RF Rx Instructions: increased dose/use treatment 4 times/day as needed NOT SENT polyethylene glycol 3350 [Miralax] 17 gram/dose powder 17 g PO DAILY PRN (Reason: constipation) Rx Instructions: 06/19/22 instructed by PCP to take 1/2 cap daily, may reduce to half cap three times per week if daily is too much Vancomycin 250 mg NEB BID 28 Days Qty: 280 12RF Hold Instructions: takes every other 28 days Rx Instructions: 250mg vancomycin in 5 cc of sterile water for nebulization To be given every other month for 28 consecutive days gabapentin 100 mg capsule 200 mg PO BID Qty: 360 3RF sulfamethoxazole-trimethoprim 200-40 mg/5 mL suspension 5 ml PO DAILY 28 Days Qty: 473 9RF Rx Instructions: Take daily for 4 weeks, then off for 4 weeks, etc nystatin 100,000 unit/gram powder 1 applic topical BID Qty: 60 12RF finasteride 5 mg tablet 5 mg PO DAILY Qty: 90 3RF tamsulosin [Flomax] 0.4 mg capsule 0.4 mg PO DAILY Qty: 90 3RF sertraline 50 mg tablet 50 mg PO DAILY Qty: 30 2RF Rx Instructions: decreased by PCP on 06/19/22 acetylcysteine [NAC] 600 mg capsule 600 mg PO BID Qty: 60 12RF melatonin 3 MG tablet 6 mg PO HS Align 4 mg Capsule 4 mg PO QPM ferrous sulfate [FeroSul] 325 mg (65 mg iron) tablet 325 mg PO DAILY Patient Comments: TAKE 1 TABLET VIA FEEDING TUBE ONCE DAILY [place] DVT-PE Treat 30D Start 5 mg (74 tabs) tablets,dose pack 5 mg PO ONCE Qty: 74 0RF Patient Comments: Will be stopped at the end of Jul 2023 per patient Discharge Instructions Additional Instructions: Return to the emergency department if you have bright red blood, more frequent episodes of cough, shortness of breath or develop any fevers. [facility] ENT will contact you to schedule an appointment to follow-up sooner than your currently scheduled appointment on August 19 Discharge Data Discharge Date/Time-TO BE ENTERED AT DEPARTURE: 08/06/23 18:06 HPI General Date/Time Provider Initiated Documentation: 08/06/23 16:53. Limitations to Documentation: physical limitation. Information obtained by: patient. HPI Narrative: 78-year-old gentleman with past medical history of laryngeal cancer status post neck dissection, COPD with oxygen dependence presents for evaluation of dark-colored phlegm. Patient notes that in the morning time he has thick secretions from his stoma and difficulty coughing them up. He notes that sometimes over the last few days he has dark brownish colored mucus that comes out. He states occasionally he coughs the side of his mouth. He denies any fever, other sick symptoms, chest pain or other significant cough. He states that this usually just occurs in the morning. Sometimes if his mucus is too thick to cough up, he puts tweezers into his stoma to help pull it out. He is not using humidified air with his trach collar. Related Data Home Medications Medication Instructions Recorded Confirmed omeprazole 20 mg capsule,delayed 20 mg feeding tube BID #90 caps 10/05/19 08/06/23 release melatonin 3 mg tablet 6 mg PO HS 10/29/19 08/06/23 rosuvastatin 40 mg tablet 40 mg feeding tube HS #90 tabs 12/14/19 08/06/23 acetylcysteine 100 mg/mL (10 %) 4 ml inhalation BID 07/05/20 08/06/23 solution ipratropium 0.5 mg-albuterol 3 mg 3 ml IN QID PRN shortness of 07/30/20 08/06/23 (2.5 mg base)/3 mL nebulization breath or wheezing #90 mL soln amlodipine 5 mg tablet 5 mg PO DAILY 10/04/20 08/06/23 Bifidobacterium infantis 4 mg 4 mg PO QPM 08/03/21 08/06/23 capsule (Align) ferrous sulfate 325 mg (65 mg 325 mg PO DAILY 08/05/21 08/06/23 iron) tablet (FeroSul) aspirin 81 mg tablet,delayed 81 mg PO DAILY 11/25/21 08/06/23 release (Adult Aspirin Regimen) ropinirole 1 mg tablet 1 mg PO BID 01/07/22 08/06/23 acetaminophen 500 mg tablet 1,000 mg PO BID PRN 03/05/22 08/06/23 (Tylenol Extra Strength) polyethylene glycol 3350 17 17 g PO DAILY PRN constipation 06/19/22 08/06/23 gram/dose oral powder (Miralax) Vancomycin 250 mg NEB BID 28 days #280 mL 09/29/22 08/06/23 levothyroxine See Rx Instructions .Route 10/27/22 08/06/23 DIRECTED gabapentin 100 mg capsule 200 mg (2 x 100 mg) PO BID #360 12/10/22 08/06/23 caps sulfamethoxazole 200 5 ml PO DAILY 28 days #473 mL 12/11/22 08/06/23 mg-trimethoprim 40 mg/5 mL oral suspension nystatin 100,000 unit/gram topical 1 applic topical BID #60 grams 02/19/23 08/06/23 powder finasteride 5 mg tablet 5 mg PO DAILY #90 tabs 04/16/23 08/06/23 tamsulosin 0.4 mg capsule (Flomax) 0.4 mg PO DAILY #90 caps 04/16/23 08/06/23 apixaban 5 mg (74 tabs) tablets in 5 mg PO ONCE #74 dose pk 04/23/23 08/06/23 a dose pack ([place] DVT-PE Treat 30D Start) sertraline 50 mg tablet 50 mg PO DAILY #30 tabs 07/20/23 08/06/23 acetylcysteine 600 mg capsule (NAC) 600 mg PO BID #60 caps 07/28/23 08/06/23 fluconazole 200 mg tablet 200 mg PO DAILY #3 tabs 07/28/23 08/06/23 (Diflucan) Previous Rx's Medication Instructions Recorded omeprazole 20 mg capsule,delayed 20 mg feeding tube BID #90 caps 10/05/19 release rosuvastatin 40 mg tablet 40 mg feeding tube HS #90 tabs 12/14/19 ipratropium 0.5 mg-albuterol 3 mg 3 ml IN QID PRN shortness of 07/30/20 (2.5 mg base)/3 mL nebulization breath or wheezing #90 mL soln Vancomycin 250 mg NEB BID 28 days #280 mL 09/29/22 gabapentin 100 mg capsule 200 mg (2 x 100 mg) PO BID #360 12/10/22 caps sulfamethoxazole 200 5 ml PO DAILY 28 days #473 mL 12/11/22 mg-trimethoprim 40 mg/5 mL oral suspension nystatin 100,000 unit/gram topical 1 applic topical BID #60 grams 02/19/23 powder finasteride 5 mg tablet 5 mg PO DAILY #90 tabs 04/16/23 tamsulosin 0.4 mg capsule (Flomax) 0.4 mg PO DAILY #90 caps 04/16/23 apixaban 5 mg (74 tabs) tablets in 5 mg PO ONCE #74 dose pk 04/23/23 a dose pack (Segmint DVT-PE Treat 30D Start) sertraline 50 mg tablet 50 mg PO DAILY #30 tabs 07/20/23 acetylcysteine 600 mg capsule (NAC) 600 mg PO BID #60 caps 07/28/23 fluconazole 200 mg tablet 200 mg PO DAILY #3 tabs 07/28/23 (Diflucan) Allergies Allergy/AdvReac Type Severity Reaction Status Date / Time pollen extracts Allergy Mild Wheezing Verified 08/06/23 17:02 Tetracyclines Allergy Unknown SKIN RASH Verified 08/06/23 17:02 General Stated Complaint: GenMedical CHER: 4 Exam Narrative Exam Narrative: Review of Systems: All systems reviewed & are unremarkable except as noted in HPI and below Well-developed, no acute distress NCAT PERRL, normal conjunctiva Neck dissection noted with stoma in place on trach collar No active bleeding there is dried dark blood on the posterior wall of the stoma No neck masses or significant adenopathy RRR Unlabored respiratory effort, clear breath sounds bilaterally Nondistended abdomen Extremities w/o deformity, no cyanosis, no edema No rashes or lesions. no focal neurologic deficits Appropriate mood and affect Course Vital Signs Vital signs: Vital Signs Temperature 36.6 C 08/06/23 16:53 Pulse 89 08/06/23 16:53 Respiratory Rate 18 08/06/23 16:53 Blood Pressure 121/78 08/06/23 16:53 Pulse Oximetry 100 08/06/23 16:53 Temperature 36.6 C 08/06/23 17:06 Temperature Source Skin 08/06/23 17:06 Pulse 89 08/06/23 17:06 Respiratory Rate 18 08/06/23 17:06 Respiratory Effort Normal 08/06/23 17:06 Respiratory Depth Normal 08/06/23 17:06 Respiratory Pattern Normal 08/06/23 17:06 Blood Pressure 121/78 08/06/23 17:06 Blood Pressure Position Sitting 08/06/23 17:06 Pulse Oximetry 98 08/06/23 17:35 Oxygen Delivery Method Trach Collar 08/06/23 17:35 Oxygen Flow Rate 10 08/06/23 17:35 Fraction of Inspired Oxygen (FIO2) 35 08/06/23 17:35 Medical Decision Making Emergent evaluation stoma complication. Patient is not having any active bleeding or respiratory distress. He has no sick symptoms to make me think that this is an infectious etiology. The way that he describes this once daily expectoration of dark-colored material sounds more like it has to do with dryness. He is using chronic trach collar to maintain oxygen saturations due to his COPD but he is not using humidifier. He is also putting tweezers into the stoma which I find very disturbing. I discussed with the ENT at [facility], the patient has an upcoming appointment with them on August 19. He was recently scoped by GI secondary to hematemesis. At this time there is no indication for emergent workup given the lack of acute symptoms however strict return precautions were advised to the patient. ENT will attempt to schedule a sooner appointment than the seventh to follow him in clinic. Patient understands and is comfortable with this plan. Quality:SDOH Health Related Social Needs: No Data to Display PFSH All Active Problems Hemoptysis (Acute) Caregiver stress (Acute) Nausea & vomiting (Acute) Regurgitation of food (Acute) Pulmonary embolism (Chronic) Uses feeding tube (Acute) Gross hematuria (Acute) Ambulatory dysfunction (Acute) Leukocytosis (leucocytosis) (Acute) UTI (urinary tract infection) (Acute) Multiple subsegmental pulmonary emboli without acute cor pulmonale (Acute) C1 cervical fracture (Acute) Gastrostomy tube dysfunction (Acute) Advance care planning (Acute) Encounter for hospice care discussion (Acute) Unintentional weight loss of 10% body weight within 6 months (Acute) Dysuria (Acute) Malfunctioning jejunostomy tube (Acute) Need for follow-up by social sciences instructor (Acute) Dysphagia (Acute) Weakness (Acute) Impaired instrumental activities of daily living (Acute) Plantar fascial fibromatosis (Acute) Feeding tube dysfunction (Acute) Sensorineural hearing loss (SNHL) of both ears (Acute) Otalgia of right ear (Acute) Neck pain on right side (Acute) Neck pain on right side (Acute) Full code status (Acute) Need for home health care (Acute) MRSA pneumonia (Acute) pt likely colonized Occlusion of right vertebral artery (Acute) Hypoxemia (Acute) Complication of feeding tube (Acute) Peripheral neuropathy (Acute 02/21/15) PAOD (peripheral arterial occlusive disease) (Acute) COPD (chronic obstructive pulmonary disease) (Chronic) G tube feedings (Acute) 20F 3.0cm 11/30/22. Routine change every 4 months. 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 Hypertension Tobacco use COPD (chronic obstructive pulmonary disease) Post herpetic neuralgia Hypothyroidism Hyperlipemia Depression Anxiety Anemia Conjunctivitis, chronic Surgical History S/P AAA (abdominal aortic aneurysm) repair Status post laryngectomy History of esophagogastroduodenoscopy (EGD) (~08/10/19) Daron Casper [place] [facility] [place], GERD, Reyes's esophagitis, neuromuscular dysfunction History of laryngectomy Status post cardiac catheterization Status post cataract extraction and insertion of intraocular lens of right eye (07/12/18) History of tarsorrhaphy Status post cataract extraction and insertion of intraocular lens of left eye (04/30/12) 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) Sin-mullins button placed by Dr Elia Mcdonald, [facility] PROCEDURES RT/LEFT HEART CARD CATH COMPLETE LARYNGECTOMY Esophagoplasty EGD - MAC (07/06/17) Colonoscopy - MAC (12/22/16) History of radical laryngectomy Family History Nephew Throat cancer Maternal Cousin Cancer Social History Smoking/Tobacco Use Status: Former Tobacco Use Quit Date: 04/23/13 Tobacco: How many years used: 20 Smoking risk assessment performed?: Yes Alcohol Intake: never Drug use: Never Substance use type: does not use Housing: apartment Current gender identity: male Do you feel safe at home: Yes Do you feel safe in your relationship?: Yes
== END 2023-08-06 18:06 | disposition home or self-care (01) ==
PROVIDERS: Emergency Provider Emergency Medicine; PCP Physician Assistant Medical
DX: R04.2 Hemoptysis (principal); J44.9 Chronic obstructive pulmonary disease, unspecified; I10 Essential (primary) hypertension; I25.10 Atherosclerotic heart disease of native coronary artery without angina pectoris; E78.5 Hyperlipidemia, unspecified; Z93.1 Gastrostomy status; Z85.21 Personal history of malignant neoplasm of larynx; Z99.81 Dependence on supplemental oxygen; Z87.891 Personal history of nicotine dependence; Z79.82 Long term (current) use of aspirin
CPT/HCPCS: 99283

== ENCOUNTER → 2023-08-13 14:01 | Outpatient (BNVA) | payer MEDICARE, MEDICAID, SELFPAY | PROVIDERS: PCP Physician Assistant Medical; Visit Provider Urology | DX: R31.0 Gross hematuria (principal); N39.0 Urinary tract infection, site not specified | CPT/HCPCS: 52000; 81003 ==

== ENCOUNTER 2023-08-16 07:13 | Emergency (ER) | payer MEDICARE, MEDICAID, SELFPAY ==
[2023-08-16 07:15] VITALS: O2SAT 98
[2023-08-16 07:17] VITALS: BP 163/73; PULSE 94; RESP 18; TEMP 37.1; O2SAT 98
[2023-08-16 07:30] VITALS: BP 163/73; PULSE 94; RESP 18; TEMP 37.1; O2SAT 98
--- NOTE | 2023-08-16 07:38 | W.ED.GENAD ---
Discharge Plan Disposition Patient Disposition: Home Condition: Improving Discharge Details Chief Complaint: GenMedical Clinical Impression: Arm pain Primary Care Provider: Nazia Chan ED Provider: Fabian Vazquez Home Meds and New Rx's Prescriptions: No Action ropinirole 1 mg tablet 5 mg PO BID aspirin [Adult Aspirin Regimen] 81 mg tablet,delayed release (DR/EC) 81 mg PO DAILY acetaminophen [Tylenol Extra Strength] 500 mg tablet 1,000 mg PO BID PRN omeprazole 20 mg capsule,delayed release(DR/EC) 20 mg feeding tube BID Qty: 90 4RF acetylcysteine 100 mg/mL (10 %) solution 4 ml inhalation BID amlodipine 5 mg tablet 5 mg PO DAILY levothyroxine See Rx Instructions .ROUTE DIRECTED Rx Instructions: as directed; rosuvastatin 40 mg tablet 40 mg feeding tube HS Qty: 90 4RF ipratropium-albuterol 0.5 mg-3 mg(2.5 mg base)/3 mL solution for nebulization 3 ml IN QID PRN (Reason: shortness of breath or wheezing) Qty: 90 4RF Rx Instructions: increased dose/use treatment 4 times/day as needed NOT SENT polyethylene glycol 3350 [Miralax] 17 gram/dose powder 17 g PO DAILY PRN (Reason: constipation) Rx Instructions: 06/19/22 instructed by PCP to take 1/2 cap daily, may reduce to half cap three times per week if daily is too much Vancomycin 250 mg NEB BID 28 Days Qty: 280 12RF Hold Instructions: takes every other 28 days Rx Instructions: 250mg vancomycin in 5 cc of sterile water for nebulization To be given every other month for 28 consecutive days gabapentin 100 mg capsule 200 mg PO BID Qty: 360 3RF sulfamethoxazole-trimethoprim 200-40 mg/5 mL suspension 5 ml PO DAILY 28 Days Qty: 473 9RF Rx Instructions: Take daily for 4 weeks, then off for 4 weeks, etc nystatin 100,000 unit/gram powder 1 applic topical BID Qty: 60 12RF finasteride 5 mg tablet 5 mg PO DAILY Qty: 90 3RF tamsulosin [Flomax] 0.4 mg capsule 0.4 mg PO DAILY Qty: 90 3RF sertraline 50 mg tablet 50 mg PO DAILY Qty: 30 2RF Rx Instructions: decreased by PCP on 06/19/22 acetylcysteine [NAC] 600 mg capsule 600 mg PO BID Qty: 60 12RF melatonin 3 MG tablet 6 mg PO HS Align 4 mg Capsule 4 mg PO QPM ferrous sulfate [FeroSul] 325 mg (65 mg iron) tablet 325 mg PO DAILY Patient Comments: TAKE 1 TABLET VIA FEEDING TUBE ONCE DAILY Discharge Instructions Additional Instructions: Please follow-up with your primary care physician HPI General Date/Time Provider Initiated Documentation: 08/16/23 07:24. HPI Narrative: 78-year-old male history of laryngeal cancer, high cervical injury, presents with bilateral upper extremity aching discomfort that began overnight, no numbness or weakness. Patient does have history of restless legs and this feels similar to his lower extremity sensations. No recent trauma no recent illness no fevers. Related Data Home Medications Medication Instructions Recorded Confirmed omeprazole 20 mg capsule,delayed 20 mg feeding tube BID #90 caps 10/05/19 08/16/23 release melatonin 3 mg tablet 6 mg PO HS 10/29/19 08/16/23 rosuvastatin 40 mg tablet 40 mg feeding tube HS #90 tabs 12/14/19 08/16/23 acetylcysteine 100 mg/mL (10 %) 4 ml inhalation BID 07/05/20 08/16/23 solution ipratropium 0.5 mg-albuterol 3 mg 3 ml IN QID PRN shortness of 07/30/20 08/16/23 (2.5 mg base)/3 mL nebulization breath or wheezing #90 mL soln amlodipine 5 mg tablet 5 mg PO DAILY 10/04/20 08/16/23 Bifidobacterium infantis 4 mg 4 mg PO QPM 08/03/21 08/16/23 capsule (Align) ferrous sulfate 325 mg (65 mg 325 mg PO DAILY 08/05/21 08/16/23 iron) tablet (FeroSul) aspirin 81 mg tablet,delayed 81 mg PO DAILY 11/25/21 08/16/23 release (Adult Aspirin Regimen) ropinirole 1 mg tablet 5 mg PO BID 01/07/22 08/16/23 acetaminophen 500 mg tablet 1,000 mg PO BID PRN 03/05/22 08/16/23 (Tylenol Extra Strength) polyethylene glycol 3350 17 17 g PO DAILY PRN constipation 06/19/22 08/16/23 gram/dose oral powder (Miralax) Vancomycin 250 mg NEB BID 28 days #280 mL 09/29/22 08/16/23 levothyroxine See Rx Instructions .Route 10/27/22 08/16/23 DIRECTED gabapentin 100 mg capsule 200 mg (2 x 100 mg) PO BID #360 12/10/22 08/16/23 caps sulfamethoxazole 200 5 ml PO DAILY 28 days #473 mL 12/11/22 08/16/23 mg-trimethoprim 40 mg/5 mL oral suspension nystatin 100,000 unit/gram topical 1 applic topical BID #60 grams 02/19/23 08/16/23 powder finasteride 5 mg tablet 5 mg PO DAILY #90 tabs 04/16/23 08/16/23 tamsulosin 0.4 mg capsule (Flomax) 0.4 mg PO DAILY #90 caps 04/16/23 08/16/23 sertraline 50 mg tablet 50 mg PO DAILY #30 tabs 07/20/23 08/16/23 acetylcysteine 600 mg capsule (NAC) 600 mg PO BID #60 caps 07/28/23 08/16/23 Previous Rx's Medication Instructions Recorded omeprazole 20 mg capsule,delayed 20 mg feeding tube BID #90 caps 10/05/19 release rosuvastatin 40 mg tablet 40 mg feeding tube HS #90 tabs 12/14/19 ipratropium 0.5 mg-albuterol 3 mg 3 ml IN QID PRN shortness of 07/30/20 (2.5 mg base)/3 mL nebulization breath or wheezing #90 mL soln Vancomycin 250 mg NEB BID 28 days #280 mL 09/29/22 gabapentin 100 mg capsule 200 mg (2 x 100 mg) PO BID #360 12/10/22 caps sulfamethoxazole 200 5 ml PO DAILY 28 days #473 mL 12/11/22 mg-trimethoprim 40 mg/5 mL oral suspension nystatin 100,000 unit/gram topical 1 applic topical BID #60 grams 02/19/23 powder finasteride 5 mg tablet 5 mg PO DAILY #90 tabs 04/16/23 tamsulosin 0.4 mg capsule (Flomax) 0.4 mg PO DAILY #90 caps 04/16/23 sertraline 50 mg tablet 50 mg PO DAILY #30 tabs 07/20/23 acetylcysteine 600 mg capsule (NAC) 600 mg PO BID #60 caps 07/28/23 Allergies Allergy/AdvReac Type Severity Reaction Status Date / Time pollen extracts Allergy Mild Wheezing Verified 08/16/23 07:24 Tetracyclines Allergy Unknown SKIN RASH Verified 08/16/23 07:24 General Stated Complaint: GenMedical CHER: 3 Review of Systems Narrative: Review of Systems Constitutional: negative Eyes: negative ENT: negative Cardiovascular: negative Respiratory: negative Gastrointestinal: negative : negative Musculoskeletal: Arm discomfort Skin: negative Neurologic: negative Psych: negative Exam Narrative Exam Narrative: Physical Examination General: alert, awake, cooperative, resting comfortably, no acute distress HEENT: normocephalic, atraumatic Neck: supple Chest: normal to inspection Respiratory: normal respiratory effort Skin: no lesions, rashes or trauma appreciated Neuro: AAOx3, moving all extremities with full strength normal sensation Extremities: No signs of trauma Course Vital Signs Vital signs: Vital Signs Pulse Oximetry 98 08/16/23 07:15 Temperature 37.1 C 08/16/23 07:30 Temperature Source Skin 08/16/23 07:30 Pulse 94 H 08/16/23 07:30 Respiratory Rate 18 08/16/23 07:30 Respiratory Effort Normal 08/16/23 07:29 Blood Pressure 163/73 H 08/16/23 07:30 Pulse Oximetry 98 08/16/23 07:30 Oxygen Delivery Method Trach Collar 08/16/23 07:30 Oxygen Flow Rate 4 08/16/23 07:30 Pain Level 3 08/16/23 07:30 Medical Decision Making 78-year-old male history of laryngeal cancer, cervical spine injury in the past, presents with bilateral upper extremity aching discomfort, atraumatic afebrile nontoxic, neurologically intact with normal strength and sensation, full range of motion no skin changes, consider cervical radiculopathy versus muscle spasm versus neuropathy low suspicion for spinal cord impingement mass infection or traumatic injury. No evidence of rash or bacterial infection. Trial of analgesia anti-inflammatory muscle relaxant. Likely home with close follow-up. 8: 38 patient would like to leave. Feeling better. Quality:SDOH Health Related Social Needs: No Data to Display PFSH All Active Problems (Updated 08/16/23 @ 08:39 by Fabian Vazquez MD) Arm pain (Acute) Palliative care patient (Acute) Hemoptysis (Acute) Caregiver stress (Acute) Nausea & vomiting (Acute) Regurgitation of food (Acute) Pulmonary embolism (Chronic) Uses feeding tube (Acute) Gross hematuria (Acute) Ambulatory dysfunction (Acute) Leukocytosis (leucocytosis) (Acute) UTI (urinary tract infection) (Acute) Multiple subsegmental pulmonary emboli without acute cor pulmonale (Acute) C1 cervical fracture (Acute) Gastrostomy tube dysfunction (Acute) Advance care planning (Acute) Encounter for hospice care discussion (Acute) Unintentional weight loss of 10% body weight within 6 months (Acute) Dysuria (Acute) Malfunctioning jejunostomy tube (Acute) Need for follow-up by social services technician (Acute) Dysphagia (Acute) Weakness (Acute) Impaired instrumental activities of daily living (Acute) Plantar fascial fibromatosis (Acute) Feeding tube dysfunction (Acute) Sensorineural hearing loss (SNHL) of both ears (Acute) Otalgia of right ear (Acute) Neck pain on right side (Acute) Neck pain on right side (Acute) Full code status (Acute) Need for home health care (Acute) MRSA pneumonia (Acute) pt likely colonized Occlusion of right vertebral artery (Acute) Hypoxemia (Acute) Complication of feeding tube (Acute) Peripheral neuropathy (Acute 02/21/15) PAOD (peripheral arterial occlusive disease) (Acute) COPD (chronic obstructive pulmonary disease) (Chronic) G tube feedings (Acute) 20F 3.0cm 11/30/22. Routine change every 4 months. 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 Hypertension Tobacco use COPD (chronic obstructive pulmonary disease) Post herpetic neuralgia Hypothyroidism Hyperlipemia Depression Anxiety Anemia Conjunctivitis, chronic Surgical History S/P AAA (abdominal aortic aneurysm) repair Status post laryngectomy History of esophagogastroduodenoscopy (EGD) (~08/10/19) Daron Casper APRN @ [facility] [place]: hiatal hernia, GERD, Reyes's esophagitis, neuromuscular dysfunction History of laryngectomy Status post cardiac catheterization Status post cataract extraction and insertion of intraocular lens of right eye (07/12/18) History of tarsorrhaphy Status post cataract extraction and insertion of intraocular lens of left eye (04/30/12) 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) Sin-mullins button placed by Dr Elia Mcdonald, [facility] PROCEDURES RT/LEFT HEART CARD CATH COMPLETE LARYNGECTOMY Esophagoplasty EGD - MAC (07/06/17) Colonoscopy - MAC (12/22/16) History of radical laryngectomy Family History Nephew Throat cancer Maternal Cousin Cancer Social History Smoking/Tobacco Use Status: Former Tobacco Use Quit Date: 04/23/13 Tobacco: How many years used: 20 Smoking risk assessment performed?: Yes Alcohol Intake: never Drug use: Never Substance use type: does not use Housing: apartment Current gender identity: male Do you feel safe at home: Yes Do you feel safe in your relationship?: Yes
[2023-08-16] MEDS: Dexamethasone 10 MG/ML VIAL PO (07:45)
[2023-08-16] MEDS: Acetaminophen 325 MG TAB 650 MG PO (07:46)
[2023-08-16] MEDS: Cyclobenzaprine 10 MG TAB PO (07:46)
[2023-08-16] MEDS: Lidocaine 5% Patch 1 PATCH TP (07:47)
[2023-08-16] MEDS: LORazepam 0.5 MG TAB PO (08:24)
[2023-08-16 08:46] VITALS: BP 171/71; PULSE 83; RESP 18; TEMP 37; O2SAT 96
== END 2023-08-16 08:57 | disposition home or self-care (01) ==
PROVIDERS: Emergency Provider Emergency Medicine; PCP Physician Assistant Medical
DX: M79.621 Pain in right upper arm (principal); M79.622 Pain in left upper arm; J44.9 Chronic obstructive pulmonary disease, unspecified; I10 Essential (primary) hypertension; I25.10 Atherosclerotic heart disease of native coronary artery without angina pectoris; Z85.21 Personal history of malignant neoplasm of larynx; Z93.1 Gastrostomy status; Z79.82 Long term (current) use of aspirin; Z79.899 Other long term (current) drug therapy; Z87.891 Personal history of nicotine dependence
CPT/HCPCS: 99283; J1100

== ENCOUNTER 2023-08-16 14:13 | Observation (INO) | payer MEDICARE, MEDICAID, SELFPAY ==
[2023-08-16] VITALS (73 sets, daily range): BP systolic 72–179; BP diastolic 37–111; PULSE 81–108; RESP 8–33; TEMP 36.9–37.2; O2SAT 77–99
--- NOTE | 2023-08-16 14:30 | DI.RAD_ITS ---
Exam(s) XR HAND LT COMPLETE EXAM: XR HAND LT COMPLETE CLINICAL HISTORY: L thumb ecchymosis and pain. TECHNIQUE: 2D digital imaging was performed. Three views. COMPARISON: CR LEFT RING FINGER from 01/02/2010 FINDINGS: Exam limited by overlap and flexion of the fingers. BONES: A fracture is noted at the base of the 1st metacarpal with shows mild angulation. No visible separation at the articular surface. No additional fractures. No bony destructive lesion is seen. JOINTS: No dislocation present. Advanced degenerative changes of the interphalangeal joints, greate st at the 4th proximal interphalangeal joint.. SOFT TISSUE: Vascular calcifications. IMPRESSION: Fracture at the base of the 1st metacarpal. DATA REPOSITORY: RADIATION DOSE DELIVERED:
--- NOTE | 2023-08-16 14:30 | DI.RAD_ITS ---
Exam(s) XR CHEST 2V PA LATERAL EXAM: XR CHEST 2V PA LATERAL CLINICAL HISTORY: Hypotension TECHNIQUE: 2D digital imaging was performed. COMPARISON: CR XR ABD FLAT UPRIGHT PA CHEST from 06/18/[address] HEAD CERVICAL SPINE WO from 08/16/2023 FINDINGS: Lateral view limited by patient arm positioning HEART: Mildly enlarged. Aorta: Stents noted in descending thoracic aorta which is also tortuous. PULMONARY VASCULATURE: Normal. LUNGS: Chronic interstitial changes. Biapical scarring. Pulmonary vascular prominence which could i ndicate mild CHF. PLEURAL SPACE: No pleural effusion or pneumothorax. BONE:Unremarkable for age. Soft tissues: Surgical clips noted in neck. IMPRESSION: Question mild CHF. DATA REPOSITORY: RADIATION DOSE DELIVERED:
--- NOTE | 2023-08-16 14:42 | DI.CT_ITS ---
Exam(s) CT HEAD CERVICAL SPINE WO EXAM: CT HEAD CERVICAL SPINE WO CLINICAL HISTORY: ? fall, body bruises, arm weakness/trembling. TECHNIQUE: Imaging Protocol: Axial computed tomography images with coronal and sagittal reformatted images were created and reviewed COMPARISON: CT CT HEAD WO from 08/12/[address] NECK W from 05/26/2023 FINDINGS: Head CT Ventricles and Extra axial spaces: Normal in size and morphology for the patient's age. Hemorrhage: Left frontal parietal sub dural hematoma seen superiorly measuring maximally 8 millimeter s in thickness. The attenuation is slightly denser than CSF, consistent with subacute chronic subdur al hematoma. No significant mass effect. No acute intraparenchymal hemorrhage. Cerebral parenchyma: No evidence of mass or acute infarct. Atrophy and underlying white matter vega es of small vessel disease. Midline shift: None. Brainstem/Cerebellum: Normal. Calvarium: Normal. Visualized Paranasal sinuses/Mastoids: Clear. Soft tissues: Left retinal detachment again noted. Cervical Spine CT BONES: Old C1 fracture. No change from prior exam. Severe degenerative changes. From C3-4 through C6-7. Stable retrolisthesis at C4-5. Rightward curvature, scoliosis versus patient positioning. SOFT TISSUES: No paraspinal hematoma. The airway appears intact. Tracheotomy defect. Thyroid cartil age in thyroid are not present. No pneumothorax is seen at the lung apices. Emphysematous and fibrotic changes. Surgical clips in t he neck. IMPRESSION: Head CT: Small subacute to chronic appearing left high frontal parietal subdural hematoma without sig nificant mass effect.. C-spine CT: Old C1 fracture. Degenerative changes, no acute abnormality. RADIATION DOSE DELIVERED: 2,114.13mGy.cm Total DLP DATA REPOSITORY: All CT scans at this facility are submitted to the National Radiology Data Registry (NRDR) Dose Index Registry (DIR) with the [employer] ([employer]). RADIATION OPTIMIZATION: All CT scans at this facility use at least one of these dose optimization te chniques: automated exposure control; mA and/or kV adjustment per patient size (includes targeted exa ms where dose is matched to clinical indication); or iterative reconstruction.
--- NOTE | 2023-08-16 14:45 | RT.EKG_ITS ---
APPROVED REPORT Exam: Resting ECG Reason for Exam: hypotension Patient Location: E HR:88 bpm ECG Measurements Heart Rate 88 AXIS OK 223 P 61 QRSd 155 QRS 88 QT 414 T 13 QTc 502 Conclusion Sinus rhythm...normal P axis, V-rate 60- 99 Prolonged OK interval...OK >220, V-rate 50- 90 Left atrial enlargement...P, P'>60mS, <-0.15mV V1 Right bundle branch block...QRSd>120, terminal axis(90,270) Borderline ST depression, lateral leads...ST <-0.07mV, I aVL V5 V6 no major change vs 06/25/23 except likely lead position change
[2023-08-16 14:53] LABS: Lactate 1.2 mmol/L (0.6-1.4)
--- NOTE | 2023-08-16 14:54 | W.ED.GENAD ---
Discharge Plan Disposition Patient Disposition: Admit to [facility] Condition: Stable Discharge Details Clinical Impression: Acute non-ST elevation myocardial infarction (NSTEMI), Fracture of thumb, left, closed, Pulmonary edema, Subdural hematoma Admit Date/Time: 08/16/23 19:22 Admit Provider: Jhonny Aguirre Attending Provider: Jhonny Aguirre Primary Care Provider: Nazia Chan ED Provider: Cheli Rankin Discharge Data Discharge Date/Time-TO BE ENTERED AT DEPARTURE: 08/16/23 20:25 HPI General Date/Time Provider Initiated Documentation: 08/16/23 14:17. HPI Narrative: 78-year-old male patient with an extensive medical history returns for the second time today with arm numbness and tremors. It is virtually impossible to get any kind of medical history from the patient. 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 I tried using yes/no answers and this is still very difficult. The patient states he sometimes has chest pain, difficulty breathing and belly pain. He apparently has not had these today. He is an extremely poor historian and does change his story. He denied headache. He denied arm weakness or numbness. He cannot tell me why he is here today although apparently his daycare manager sent him due to continued arm shaking. He has multiple bruises but tells me that he has not fallen. He has a history of a pulmonary embolism in the past but apparently is on no anticoagulant medication. His problem list does say that he is a palliative care patient and is under evaluation for hospice. He does have a feeding tube which appears intact. On July 15 of this year the patient was scheduled for an EGD and apparently wants to be a full code. This information was obtained from a palliative care note. Related Data Home Medications Medication Instructions Recorded Confirmed omeprazole 20 mg capsule,delayed 20 mg feeding tube BID #90 caps 10/05/19 08/16/23 release melatonin 3 mg tablet 6 mg PO HS 10/29/19 08/16/23 rosuvastatin 40 mg tablet 40 mg feeding tube HS #90 tabs 12/14/19 08/16/23 acetylcysteine 100 mg/mL (10 %) 4 ml inhalation BID 07/05/20 08/16/23 solution ipratropium 0.5 mg-albuterol 3 mg 3 ml IN QID PRN shortness of 02/15/21 03/03/24 (2.5 mg base)/3 mL nebulization breath or wheezing #90 mL soln amlodipine 5 mg tablet 5 mg PO DAILY 10/04/20 08/16/23 Bifidobacterium infantis 4 mg 4 mg PO QPM 08/03/21 08/16/23 capsule (Align) ferrous sulfate 325 mg (65 mg 325 mg PO DAILY 08/05/21 08/16/23 iron) tablet (FeroSul) aspirin 81 mg tablet,delayed 81 mg PO DAILY 11/25/21 08/16/23 release (Adult Aspirin Regimen) ropinirole 1 mg tablet 5 mg PO BID 01/07/22 08/16/23 acetaminophen 500 mg tablet 1,000 mg PO BID PRN 03/05/22 08/16/23 (Tylenol Extra Strength) polyethylene glycol 3350 17 17 g PO DAILY PRN constipation 06/19/22 08/16/23 gram/dose oral powder (Miralax) Vancomycin 250 mg NEB BID 28 days #280 mL 09/29/22 08/16/23 levothyroxine See Rx Instructions .Route 10/27/22 08/16/23 DIRECTED gabapentin 100 mg capsule 200 mg (2 x 100 mg) PO BID #360 12/10/22 08/16/23 caps sulfamethoxazole 200 5 ml PO DAILY 28 days #473 mL 12/11/22 08/16/23 mg-trimethoprim 40 mg/5 mL oral suspension nystatin 100,000 unit/gram topical 1 applic topical BID #60 grams 02/19/23 08/16/23 powder finasteride 5 mg tablet 5 mg PO DAILY #90 tabs 04/16/23 08/16/23 tamsulosin 0.4 mg capsule (Flomax) 0.4 mg PO DAILY #90 caps 04/16/23 08/16/23 sertraline 50 mg tablet 50 mg PO DAILY #30 tabs 07/20/23 08/16/23 acetylcysteine 600 mg capsule (NAC) 600 mg PO BID #60 caps 07/28/23 08/16/23 Previous Rx's Medication Instructions Recorded omeprazole 20 mg capsule,delayed 20 mg feeding tube BID #90 caps 10/05/19 release rosuvastatin 40 mg tablet 40 mg feeding tube HS #90 tabs 12/14/19 ipratropium 0.5 mg-albuterol 3 mg 3 ml IN QID PRN shortness of 07/30/20 (2.5 mg base)/3 mL nebulization breath or wheezing #90 mL soln Vancomycin 250 mg NEB BID 28 days #280 mL 09/29/22 gabapentin 100 mg capsule 200 mg (2 x 100 mg) PO BID #360 12/10/22 caps sulfamethoxazole 200 5 ml PO DAILY 28 days #473 mL 12/11/22 mg-trimethoprim 40 mg/5 mL oral suspension nystatin 100,000 unit/gram topical 1 applic topical BID #60 grams 02/19/23 powder finasteride 5 mg tablet 5 mg PO DAILY #90 tabs 04/16/23 tamsulosin 0.4 mg capsule (Flomax) 0.4 mg PO DAILY #90 caps 04/16/23 sertraline 50 mg tablet 50 mg PO DAILY #30 tabs 07/20/23 acetylcysteine 600 mg capsule (NAC) 600 mg PO BID #60 caps 07/28/23 Allergies Allergy/AdvReac Type Severity Reaction Status Date / Time pollen extracts Allergy Mild Wheezing Verified 08/16/23 07:24 Tetracyclines Allergy Unknown SKIN RASH Verified 08/16/23 07:24 General Stated Complaint: GenMedical CHER: 4 Review of Systems Narrative: See HPI; voicebox that is barely comprehensible. He evidently cannot write notes. Exam Const General: no acute distress, well developed and well groomed Nutritional Appearance: other (thin appearing) Orientation: alert and awake HENAK Head: normocephalic and atraumatic Ears: external ears normal Face and sinus: normal facial exam Mouth: lip normal and moist mucous membranes Eyes Conjunctivae: conjunctivae normal Pupils: PERRL EOM: EOM intact bilaterally Neck Neck: full ROM and supple Chest Chest: normal inspection of the chest and normal palpation of entire chest wall Resp Effort & Inspection: normal respiratory effort and able to speak in complete sentences (Unable to understand the patient when he is using his voicebox) Auscultation: clear to auscultation bilaterally Cardio Rate: regular rate Rhythm: regular rhythm Heart Sounds: no murmurs and no rubs GI Inspection: normal to inspection (G tube site CDI) Palpation: soft, nontender and other (non distended) Auscultation: normal bowel sounds Skin General skin exam: no rashes or lesions noted and other (pale, warm, dry; multiple bruises evident chest, extremities, etc.) Neuro General: patient alert, patient awake and patient oriented x3 Cranial Nerves: other (PEERL, EOMI) Speech: other (speaks with voice box) Motor: strength 5/5 throughout and other (HERRERA) Sensory Exam: no sensory deficits noted Extrem General: normal to inspection, full ROM and pedal edema present Left upper extremity: hand (Left upper area with pronounced ecchymosis and swelling, TTP) Psych Mental Status: mental status grossly normal Speech and Movement: speech and movement normal Affect: normal affect Course Vital Signs Vital signs: Vital Signs Temperature 37.2 C 08/16/23 14:03 Pulse 86 08/16/23 14:03 Respiratory Rate 18 08/16/23 14:03 Blood Pressure 91/61 L 08/16/23 14:03 Pulse Oximetry 95 08/16/23 14:03 Temperature 37.2 C 08/16/23 14:44 Temperature Source Axillary 08/16/23 14:44 Pulse 86 08/16/23 14:44 Pulse 94 H 08/16/23 14:30 Respiratory Rate 20 08/16/23 14:44 Respiratory Effort Normal, Non-Labored 08/16/23 14:44 Respiratory Depth Normal 08/16/23 14:44 Respiratory Pattern Normal 08/16/23 14:44 Blood Pressure 91/61 L 08/16/23 14:44 Blood Pressure Mean 77 08/16/23 14:31 Blood Pressure Position Supine 08/16/23 14:44 Pulse Oximetry 95 08/16/23 14:44 Oxygen Delivery Method Trach Collar 08/16/23 14:44 Lab/Test Results Lab/Test Results: 08/16/23 14:39 Blood Blood Culture - Pending 08/16/23 14:39 Blood Blood Culture - Pending Laboratory Tests Range/Units 08/16/23 14:36 VBG Lactate (0.6-1.4) mmol/L 1.2 Medical Decision Making The pt. has been difficult since he has been here. We are not able to understand his voice box, in spite of him having 3 different ones. He was finally able to write some stuff. He began having CP when I was in another room and repeat EKG was unchanged. A posterior EKG was obtained by Dr. Aragon. No major changes were noted. The pt. pointed to his thumb, abd, and legs when I asked him to show me where the CP was. He then pointed to his chest and on the number scale held up 8 fingers for pain. 1 NTG seemed to take the pain away. His BP came up nicely with IVF. The [place] [facility] [place] has been accepted tomorrow by Dr. Silverman. Our hospitalist is on page. The hospitalist admitted the pt. He saw the patient in the ED and asked that I get an ABG on him. This was because the patient's sats were 82%. he was quite fidgety and we were able to demonstrate high 80s which the ABG confirmed. We did put him up 1 L. I do not want to put him on more oxygen because of his COPD history. Show that he is a little bit wet and I am sure this is from the IV fluid that I gave him for his initial hypotension with a question of sepsis. We have gone ahead and given him some IV Lasix at this time. Long delay in getting imaging studies. TAMMY just called to tell me there is a large intermediate density subdural hematoma on the left overlying the frontal and parietal regions with a maximum thickness of 8 mm in the parietal region. There is no associated midline shift. There is a decent amount of atrophy. TAMMY stated in the report that this finding is of uncertain chronicity although intermediate density subdurals are classically described in the subacute setting. The patient's CT C-spine shows no acute disease. I asked nursing to turn the patient's heparin drip off. I have discussed the case with Dr. Aguirre and updated him on all of the patient's findings. This includes the subdural, the finger fracture, with a congestive heart failure, and the small pneumothorax on the right. Dr. Aguirre will call neurosurgery down at [facility] to discuss this with them. Medical Records Medical records reviewed: Yes I reviewed the patient's medical records. Imaging Data Radiologic Study: My impression: See above Radiologist's impression: Dr. Perdomo called to say that he agrees that the patient's lungs look a little wet. He also may have a very small lateral pneumothorax on the right-hand side. He also concurs that the patient has a proximal phalanx fracture of his thumb. We are splinting this. Lab Data Lab results reviewed: Yes I reviewed the patient's lab results. Lab results narrative: Patient's labs were all reviewed. His initial troponin of 913 went well over thousand on second draw. He is mildly anemic with an H&H of 9.7 and 29.6. VBG was 7 point /33. TSH was 4.11. Patient's BUN was 30 but his creatinine was normal. Glucose was 142, AST 51, chloride 97. ECG Data Attestation: I personally reviewed and interpreted this ECG (s) as follows: (Clear as of now 30 kg/h sorryPlease ischemia updated blood pressure) Prior ECG tracings: not available for review (EKG: Normal sinus rhythm at 90, LA prolongation with first-degree AV block, left atrial enlargement, right bundle branch block, little change versus June 25, 2023 except that likely related to lead position placement) Quality:[facility] Health Related Social Needs: No Data to Display Critical Care Time Critical Care Time Critical Care Time: Yes Total Critical Care Time: 150 Attestation: This included test evaluation, discussion with patient and nursing, discussion with consultants, and the extensive workup of this ill patient with subdural hematoma, non-STEMI, initial hypotension, pulmonary edema, fractured hand, etc. PFSH All Active Problems (Updated 08/16/23 @ 21:14 by Cheli Rankin MD) Subdural hematoma (Acute) Pulmonary edema (Acute) Fracture of thumb, left, closed (Acute) Acute non-ST elevation myocardial infarction (NSTEMI) (Acute) Arm pain (Acute) Palliative care patient (Acute) Hemoptysis (Acute) Caregiver stress (Acute) Nausea & vomiting (Acute) Regurgitation of food (Acute) Pulmonary embolism (Chronic) Uses feeding tube (Acute) Gross hematuria (Acute) Ambulatory dysfunction (Acute) Leukocytosis (leucocytosis) (Acute) UTI (urinary tract infection) (Acute) Multiple subsegmental pulmonary emboli without acute cor pulmonale (Acute) C1 cervical fracture (Acute) Gastrostomy tube dysfunction (Acute) Advance care planning (Acute) Encounter for hospice care discussion (Acute) Unintentional weight loss of 10% body weight within 6 months (Acute) Dysuria (Acute) Malfunctioning jejunostomy tube (Acute) Need for follow-up by social and human services assistant (Acute) Dysphagia (Acute) Weakness (Acute) Impaired instrumental activities of daily living (Acute) Plantar fascial fibromatosis (Acute) Feeding tube dysfunction (Acute) Sensorineural hearing loss (SNHL) of both ears (Acute) Otalgia of right ear (Acute) Neck pain on right side (Acute) Neck pain on right side (Acute) Full code status (Acute) Need for home health care (Acute) MRSA pneumonia (Acute) pt likely colonized Occlusion of right vertebral artery (Acute) Hypoxemia (Acute) Complication of feeding tube (Acute) Peripheral neuropathy (Acute 02/21/15) PAOD (peripheral arterial occlusive disease) (Acute) COPD (chronic obstructive pulmonary disease) (Chronic) G tube feedings (Acute) 20F 3.0cm 11/30/22. Routine change every 4 months. 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 Hypertension Tobacco use COPD (chronic obstructive pulmonary disease) Post herpetic neuralgia Hypothyroidism Hyperlipemia Depression Anxiety Anemia Conjunctivitis, chronic Surgical History S/P AAA (abdominal aortic aneurysm) repair Status post laryngectomy History of esophagogastroduodenoscopy (EGD) (~08/10/19) Daron Casper APRN @ [facility]: hiatal hernia, GERD, Reyes's esophagitis, neuromuscular dysfunction History of laryngectomy Status post cardiac catheterization Status post cataract extraction and insertion of intraocular lens of right eye (07/12/18) History of tarsorrhaphy Status post cataract extraction and insertion of intraocular lens of left eye (04/30/12) 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) Sin-mullins button placed by Dr Elia Mcdonald, [facility] PROCEDURES RT/LEFT HEART CARD CATH COMPLETE LARYNGECTOMY Esophagoplasty EGD - MAC (07/06/17) Colonoscopy - MAC (12/22/16) History of radical laryngectomy Family History Nephew Throat cancer Maternal Cousin Cancer Social History Smoking/Tobacco Use Status: Former Tobacco Use Quit Date: 04/23/13 Tobacco: How many years used: 20 Smoking risk assessment performed?: Yes Alcohol Intake: never Drug use: Never Substance use type: does not use Housing: apartment Current gender identity: male Do you feel safe at home: Yes Do you feel safe in your relationship?: Yes
[2023-08-16 15:01] LABS: Abs Immature Grans 0.04 10^3/uL (0.0-0.06); Absolute Basophil Count 0.03 10^3/uL (0.0-0.2); Absolute Monocyte Count 0.09 10^3/uL (0.1-0.8); Absolute Neutrophil Count 8.24 10^3/uL (1.2-6.7); Basophils % 0.3; HCT 29.6 % (40.0-50.0); HGB 9.7 g/dL (13.5-17.5); Immature Grans % 0.5; Lymphocytes % 2.3; MCH 31.8 pg (27.0-33.0); MCHC 32.8 % (32.0-36.0); MCV 97 fL (80-95); MPV 9.6 fL (8.0-11.0); Neutrophils % 95.9; Platelet Count 286 10^3/uL (130-400); RBC 3.05 10^6/uL (4.36-5.78); RDW 13.2 % (11.8-14.1); RDW-SD 47.1 fL
[2023-08-16 15:06] LABS: BE (Venous) 9 mmol/L (-2-3); HCO3 (Venous) 33 mmol/L (23-28); O2 Sat (Venous) 61 %; TCO2 (Venous) 32 mmol/L (24-29); pCO2 (Venous) 54 mmHg (41-51); pO2 (Venous) 36 mmHg
[2023-08-16 15:12] LABS: ALT 43 U/L (16-63); AST 51 U/L (15-37); Albumin 3.7 g/dL (3.4-5.0); Alkaline Phosphatase 116 U/L (46-116); Anion Gap 10.1 mmol/L (3-11); BUN 30 mg/dL (7-18); Bilirubin, Total 0.5 mg/dL (0.2-1.0); CO2 30.9 mmol/L (21.0-32.0); CREATININE 0.8 mg/dL (0.70-1.30); Calcium 9.2 mg/dL (8.5-10.1); Chloride 97 mmol/L (98-107); Estimated GFR 91.15 (mL/min/1.73m2); Glucose 142 mg/dL (74-106); Magnesium 2.4 mg/dL (1.8-2.4); Potassium 4.1 mmol/L (3.5-5.1); Sodium 138 mmol/L (136-145); Total Protein 7.9 g/dL (6.4-8.2)
[2023-08-16 15:14] LABS: Troponin I 913 ng/L (< or =60)
[2023-08-16 15:27] LABS: TSH (W/Ref FT4) 4.11 uIU/mL (0.36-3.74)
[2023-08-16] MEDS: Normal Saline 1,000 ML 30 ML IV (15:37)
[2023-08-16 15:46] LABS: FREE T4 0.96 ng/dL (0.76-1.46)
[2023-08-16] MEDS: Normal Saline 1,000 ML 2000 ML IV (16:15)
[2023-08-16] MEDS: Heparin 5,000 UNITS/ML VIAL 3800 UNITS IV (16:18)
[2023-08-16] MEDS: Heparin in 0.45% NaCl 25,000 UNIT/250 ML BAG 7.68 UNIT IV (16:19)
--- NOTE | 2023-08-16 16:30 | RT.EKG_ITS ---
APPROVED REPORT Exam: Resting ECG Reason for Exam: CHEST PAIN Patient Location: E HR:100 bpm ECG Measurements Heart Rate 100 AXIS NV 183 P 66 QRSd 150 QRS 97 QT 382 T -46 QTc 492 Conclusion Sinus tachycardia...rate> 99 Probable left atrial enlargement...P >50mS, <-0.10mV V1 RBBB and LPFB...QRSd >120mS, axis(90,210) ST depr, consider ischemia, anterolateral lds...ST <-0.10mV, I aVL V2-V6 This with pain 01/22; no change vs prior
--- NOTE | 2023-08-16 16:45 | RT.EKG_ITS ---
APPROVED REPORT Exam: Resting ECG Reason for Exam: CHEST PAIN Patient Location: E HR:99 bpm ECG Measurements Heart Rate 99 AXIS MO 185 P 63 QRSd 162 QRS 97 QT 388 T -44 QTc 498 Conclusion Sinus rhythm...normal P axis, V-rate 60- 99 Left atrial enlargement...P, P'>60mS, <-0.15mV V1 RBBB and LPFB...QRSd >120mS, axis(90,210) Posterior leads, ST depression V3, artifact
[2023-08-16] MEDS: Aspirin 81 MG CHEW (17:00)
[2023-08-16 17:34] LABS: Bilirubin Negative (Negative); Blood Moderate (Negative); Clarity Clear (Clear); Glucose Negative (Negative); Ketones Negative (Negative); Leukocyte Esterase Negative (Negative); Nitrite Negative (Negative); Specific Gravity 1.015 (1.005-1.025); Urobilinogen 0.2 mg/dL (Up to 0.2); pH 7.5 (5-8)
[2023-08-16 17:41] LABS: Bacteria Negative HPF (Negative); C & S Indicated? No; Casts Negative LPF (Negative); Crystals Negative HPF (Negative); Epithelial Cells Few HPF (Negative); Mucus Negative (Negative); RBC 20-50 HPF (0-2); WBC 0-2 HPF (0-5)
[2023-08-16] MEDS: LORazepam 2 MG/ML VIAL 0.5 MG IVP ×3 (18:00→21:50)
[2023-08-16 18:15] LABS: Troponin I 1277 ng/L (< or =60)
--- NOTE | 2023-08-16 19:01 | W.PM.HP.N ---
Date of service: 08/16/23 Time of Service: 19:01 Assessment and Plan Assessment and plan (1) Acute non-ST elevation myocardial infarction (NSTEMI): Status: Acute Assessment and plan: NSTEMI. Currently on ASA and heparin. I have asked ER to check with Cardiology whether they also want him on Plavix. I will also add low dose beta germania once it is clear that BP has stabilized. Will also monitor O2 sats, which have greatly improved with current system, the prior readings probably artefact. As above IVF on hold, consider Lasix and also trial nebs. Reviewed ADs with partner, advises patient is Full Code, and as per prior. History of Present Illness History of Present Illness Chief Complaint: arm discomfort Narrative: 78 male with h/o laryngeal CA, s/p laryngectomy, COPD -- here earlier today with vague arm complaints, treated with muscle relaxant and patient felt better and wished to go home. Returns with continued vague complaints of recurrent arm discomfort (as best we can tell, note that patient is described as a poor historian and besides it is very difficult to understand as he uses a voice box to communicate). W/u of note for troponin 923, second 1277, with EKG showing baseline RBBB with new ST depressions across precordium. Case reviewed with [facility] cardiology and is accepted for transfer tomorrow, request medical management here overnight. Patient given ASA and started on heparin infusion. At one point patient appeared to indicate CP and was given SL NTG x1 with apparent resolution. Note that BPs were noted in 80-90 range and has since received 1.5 L IVF. When I first encountered patient it was noted that pulse on LUE was stronger than on right (where BP readings were being taken). BP of 136/palp noted LUE. It was also noted that sats on 5L were in 80s despite good wave form. CXR obtained showing probably some mild CHF and IVF were held. Staff then noted sats in mid 90s with compression of transducer against finger. Patient denies CP, arm pain or SOB at time of interview. Review of Systems Narrative: per HPI PFSH All Active Problems Acute non-ST elevation myocardial infarction (NSTEMI) (Acute) Arm pain (Acute) Palliative care patient (Acute) Hemoptysis (Acute) Caregiver stress (Acute) Nausea & vomiting (Acute) Regurgitation of food (Acute) Pulmonary embolism (Chronic) Uses feeding tube (Acute) Gross hematuria (Acute) Ambulatory dysfunction (Acute) Leukocytosis (leucocytosis) (Acute) UTI (urinary tract infection) (Acute) Multiple subsegmental pulmonary emboli without acute cor pulmonale (Acute) C1 cervical fracture (Acute) Gastrostomy tube dysfunction (Acute) Advance care planning (Acute) Encounter for hospice care discussion (Acute) Unintentional weight loss of 10% body weight within 6 months (Acute) Dysuria (Acute) Malfunctioning jejunostomy tube (Acute) Need for follow-up by social sciences professor (Acute) Dysphagia (Acute) Weakness (Acute) Impaired instrumental activities of daily living (Acute) Plantar fascial fibromatosis (Acute) Feeding tube dysfunction (Acute) Sensorineural hearing loss (SNHL) of both ears (Acute) Otalgia of right ear (Acute) Neck pain on right side (Acute) Neck pain on right side (Acute) Full code status (Acute) Need for home health care (Acute) MRSA pneumonia (Acute) pt likely colonized Occlusion of right vertebral artery (Acute) Hypoxemia (Acute) Complication of feeding tube (Acute) Peripheral neuropathy (Acute 02/21/15) PAOD (peripheral arterial occlusive disease) (Acute) COPD (chronic obstructive pulmonary disease) (Chronic) G tube feedings (Acute) 20F 3.0cm 11/30/22. Routine change every 4 months. 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 Hypertension Tobacco use COPD (chronic obstructive pulmonary disease) Post herpetic neuralgia Hypothyroidism Hyperlipemia Depression Anxiety Anemia Conjunctivitis, chronic Surgical History S/P AAA (abdominal aortic aneurysm) repair Status post laryngectomy History of esophagogastroduodenoscopy (EGD) (~08/10/19) Daron Casper APRN @ [facility]: hiatal hernia, GERD, Reyes's esophagitis, neuromuscular dysfunction History of laryngectomy Status post cardiac catheterization Status post cataract extraction and insertion of intraocular lens of right eye (07/12/18) History of tarsorrhaphy Status post cataract extraction and insertion of intraocular lens of left eye (04/30/12) 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) Sin-mullins button placed by Dr Elia Mcdonald, [facility] PROCEDURES RT/LEFT HEART CARD CATH COMPLETE LARYNGECTOMY Esophagoplasty EGD - MAC (07/06/17) Colonoscopy - MAC (12/22/16) History of radical laryngectomy Family History Nephew Throat cancer Maternal Cousin Cancer Social History Smoking/Tobacco Use Status: Former Tobacco Use Quit Date: 04/23/13 Tobacco: How many years used: 20 Smoking risk assessment performed?: Yes Alcohol Intake: never Drug use: Never Substance use type: does not use Housing: apartment Current gender identity: male Do you feel safe at home: Yes Do you feel safe in your relationship?: Yes Meds Allergies and Home Medications Allergies Allergy/AdvReac Type Severity Reaction Status Date / Time pollen extracts Allergy Mild Wheezing Verified 03/03/24 07:24 Tetracyclines Allergy Unknown SKIN RASH Verified 08/16/23 07:24 Home Medications Medication Instructions Recorded Confirmed Type omeprazole 20 mg capsule,delayed 20 mg feeding tube BID #90 caps 10/05/19 08/16/23 Rx release melatonin 3 mg tablet 6 mg PO HS 10/29/19 08/16/23 History rosuvastatin 40 mg tablet 40 mg feeding tube HS #90 tabs 12/14/19 08/16/23 Rx acetylcysteine 100 mg/mL (10 %) 4 ml inhalation BID 07/05/20 08/16/23 History solution ipratropium 0.5 mg-albuterol 3 mg 3 ml IN QID PRN shortness of 07/30/20 08/16/23 Rx (2.5 mg base)/3 mL nebulization breath or wheezing #90 mL soln amlodipine 5 mg tablet 5 mg PO DAILY 10/04/20 08/16/23 History Bifidobacterium infantis 4 mg 4 mg PO QPM 08/03/21 08/16/23 History capsule (Align) ferrous sulfate 325 mg (65 mg 325 mg PO DAILY 08/05/21 08/16/23 History iron) tablet (FeroSul) aspirin 81 mg tablet,delayed 81 mg PO DAILY 11/25/21 08/16/23 History release (Adult Aspirin Regimen) ropinirole 1 mg tablet 5 mg PO BID 01/07/22 08/16/23 History acetaminophen 500 mg tablet 1,000 mg PO BID PRN 03/05/22 08/16/23 History (Tylenol Extra Strength) polyethylene glycol 3350 17 17 g PO DAILY PRN constipation 06/19/22 08/16/23 History gram/dose oral powder (Miralax) Vancomycin 250 mg NEB BID 28 days #280 mL 09/29/22 08/16/23 Rx levothyroxine See Rx Instructions .Route 10/27/22 08/16/23 History DIRECTED gabapentin 100 mg capsule 200 mg (2 x 100 mg) PO BID #360 12/10/22 08/16/23 Rx caps sulfamethoxazole 200 5 ml PO DAILY 28 days #473 mL 12/11/22 08/16/23 Rx mg-trimethoprim 40 mg/5 mL oral suspension nystatin 100,000 unit/gram topical 1 applic topical BID #60 grams 02/19/23 08/16/23 Rx powder finasteride 5 mg tablet 5 mg PO DAILY #90 tabs 04/16/23 08/16/23 Rx tamsulosin 0.4 mg capsule (Flomax) 0.4 mg PO DAILY #90 caps 04/16/23 08/16/23 Rx sertraline 50 mg tablet 50 mg PO DAILY #30 tabs 07/20/23 08/16/23 Rx acetylcysteine 600 mg capsule (NAC) 600 mg PO BID #60 caps 07/28/23 08/16/23 Rx Exam Narrative Exam Narrative: 136/palp, pulse 108, 37.2, 95% 2L per tracheostomy. HEENT atraumatic; neck supple; lungs scattered basialr rhonchi; heart RRR; abdomen soft and NT; extremities w/o edema; neuro restless at times, moves all 4s Results Labs 08/16/23 14:38 08/16/23 14:36 Labs: Laboratory Results - last 24 hr 08/16/23 08/16/23 08/16/23 14:36 14:38 15:13 WBC 8.60 RBC 3.05 L Hgb 9.7 L Hct 29.6 L MCV 97 H MCH 31.8 MCHC 32.8 RDW 13.2 Plt Count 286 MPV 9.6 Immature Gran % 0.5 Neutrophils % 95.9 Lymphocytes % 2.3 Monocytes % 1.0 Eosinophils % 0.0 Basophils % 0.3 Nucleated RBC % 0.0 Absolute Neutrophils 8.24 H Absolute Lymphocytes 0.20 L Absolute Monocytes 0.09 L Absolute Eosinophils 0.00 Absolute Basophils 0.03 VBG pH 7.40 VBG pCO2 54 H VBG pO2 36 VBG HCO3 33 H VBG Total CO2 32 H VBG O2 Saturation 61 VBG Base Excess 9 H VBG Lactate 1.2 Sodium 138 Potassium 4.1 Chloride 97 L Carbon Dioxide 30.9 Anion Gap 10.1 BUN 30 H Creatinine 0.8 Est GFR (CKD-EPI 2020) 91.15 Glucose 142 H Calcium 9.2 Magnesium 2.4 Total Bilirubin 0.5 AST 51 H ALT 43 Alkaline Phosphatase 116 Troponin I 913 H* Total Protein 7.9 Albumin 3.7 TSH 4.11 H Free T4 0.96 Urine Color Yellow Urine Clarity Clear Urine pH 7.5 Ur Specific [place] 1.015 Urine Protein 30 H Urine Ketones Negative Urine Blood Moderate H Urine Nitrite Negative Urine Bilirubin Negative Urine Urobilinogen 0.2 Ur Leukocyte Esterase Negative Urine RBC 20-50 H Urine WBC 0-2 Ur Epithelial Cells Few Urine Crystals Negative Urine Bacteria Negative Urine Casts Negative Urine Mucus Negative Ur Culture Indicated? No Urine Glucose Negative 08/16/23 17:45 WBC RBC Hgb Hct MCV MCH MCHC RDW Plt Count MPV Immature Gran % Neutrophils % Lymphocytes % Monocytes % Eosinophils % Basophils % Nucleated RBC % Absolute Neutrophils Absolute Lymphocytes Absolute Monocytes Absolute Eosinophils Absolute Basophils VBG pH VBG pCO2 VBG pO2 VBG HCO3 VBG Total CO2 VBG O2 Saturation VBG Base Excess VBG Lactate Sodium Potassium Chloride Carbon Dioxide Anion Gap BUN Creatinine Est GFR (CKD-EPI 2020) Glucose Calcium Magnesium Total Bilirubin AST ALT Alkaline Phosphatase Troponin I 1277 H* Total Protein Albumin TSH Free T4 Urine Color Urine Clarity Urine pH Ur Specific [place] Urine Protein Urine Ketones Urine Blood Urine Nitrite Urine Bilirubin Urine Urobilinogen Ur Leukocyte Esterase Urine RBC Urine WBC Ur Epithelial Cells Urine Crystals Urine Bacteria Urine Casts Urine Mucus Ur Culture Indicated? Urine Glucose Last Vital Signs Temp 37.2 C 08/16/23 14:44 Pulse 100 H 08/16/23 17:47 Resp 26 H 08/16/23 17:50 BP 93/59 L 08/16/23 17:47 Pulse Ox 95 08/16/23 17:50 Time Spent Time spent with Patient: 55-74 minutes Time was spent: preparing to see the patient(eg.review tests), obtaining and/or reviewing separately otained hiistory, ordering medications,tests, procedures, referring, communicating with other health healthcare facility administrator and indepentently interpreting results
[2023-08-16 19:11] LABS: BE 2 mmol/L (-2-3); HCO3 26 mmol/L (22-26); pCO2 39 mmHg (35-45); pH 7.44 (7.35-7.45); pO2 54 mmHg (80-105); sO2 87 % (95-98); tCO2 25 mmol/L (23-27)
[2023-08-16 19:13] LABS: Site Left Radial
[2023-08-16] MEDS: Albuterol/Ipratropium 3 ML UPD VIAL UPD (19:30)
--- NOTE | 2023-08-16 19:43 | DI.VRAD_ITS ---
Addendum created by Neeraj Ching MD on 08/16/2023 7:47:03 PM EST: This case was discussed personally with Cheli Gutierres at 7:46 PM EST on 08/16/2023. Initial report created on 08/16/2023 7:42:14 PM EST: PROCEDURE INFORMATION: Exam: CT Head Without Contrast Exam date and time: 08/16/2023 6:15 PM Age: 78 years old Clinical indication: Other: ? Fall, body bruises, arm weakness/trembling; Additional info: ? Fall, body bruises, arm weakness/trembling. Repeated c-spine due to patient motion. Best images possible TECHNIQUE: Imaging protocol: Computed tomography of the head without contrast. COMPARISON: CT HEAD WO 08/12/2019 12:35 PM FINDINGS: Brain: There is a large intermediate density subdural collection overlying the left parietal and frontal lobes with a maximum thickness of 8 mm in the parietal region on image 36 of series 15. There is no gross shift of the midline. There is patchy white matter hypoattenuation, nonspecific but commonly seen as a chronic sequela of small vessel ischemic disease. The scanlon white matter differentiation appears preserved. There is global parenchymal volume loss. Cerebral ventricles: The ventricular system and basilar cisterns appear prominent but appropriate in size and configuration given the degree of parenchymal volume loss. Paranasal sinuses: See Nasal cavity finding. Mastoid air cells: The mastoid air cells appear well-aerated. Auditory system: The middle ear cavities appear clear. Orbital cavities: There is stable retinal detachment on the left, also seen on the comparison exam from August 12, 2019. Nasal cavity: There is undulation of the nasal septum and leftward septal deviation. There is opacification of a single left-sided ethmoid air cell. Otherwise, the paranasal sinuses appear clear. Bones/joints: The bony calvarium appears intact. No depressed skull fracture is seen. Soft tissues: No gross focal scalp hematoma is seen. Vasculature: There is atherosclerotic calcification within the intracranial portion of the internal carotid and vertebral arteries bilaterally. IMPRESSION: 1. Large intermediate density subdural hematoma on the left overlying the frontal and parietal regions with a maximum thickness of 8 mm in the parietal region. No associated midline shift. This finding is of uncertain chronicity. Intermediate density subdural hematomas are classically described in the subacute setting. That said, intermediate density subdural hemorrhage can also be seen in the hyperacute setting or in the setting of anemia or other hemodilution. Clinical correlation is recommended. 2. Stable retinal detachment on the left, also seen on the comparison exam from 2019. PROCEDURE INFORMATION: Exam: CT Cervical Spine Without Contrast Exam date and time: 08/16/2023 6:15 PM Age: 78 years old Clinical indication: Other: ? Fall, body bruises, arm weakness/trembling; Additional info: ? Fall, body bruises, arm weakness/trembling. Repeated c-spine due to patient motion. Best images possible TECHNIQUE: Imaging protocol: Computed tomography of the cervical spine without contrast. COMPARISON: CT NECK W 05/26/2023 5:11 AM FINDINGS: Bones/joints: There are well corticated old fractures through the anterior arch of C1, through the lateral aspect of the left posterior arch of C1, and through the medial aspect of the right posterior arch of C1, also seen on the comparison exam from June 03, 2023. The right aspect of the ring of C1 along with the calvarium appears somewhat superiorly displaced relative to the odontoid process of C2; however, this appearance is stable compared with the prior exam from May 26, 2023. Otherwise, no acute cervical fracture is seen. There is grade 2 anterolisthesis of C4 on C5, stable compared with the recent prior exam from May. The thyroid cartilages are absent. Prior laryngectomy? Correlation with surgical history recommended. C2-C3: Disc height preserved. Complete fusion across the right facet joint and right laminae. Moderate facet arthrosis on the left. No significant cervical stenosis or significant foraminal narrowing. C3-C4: Disc height preserved. Large anterior osteophytes. Markedly severe facet arthrosis on the left. Mild bilateral uncovertebral hypertrophy. Mild right-sided foraminal narrowing. Severe left-sided foraminal narrowing. C4-C5: Loss of disc height with grade 2 anterolisthesis of C4 on C5. Anterior osteophytes. Markedly severe left-sided facet arthrosis. Mild central canal narrowing. Mild right and severe left-sided foraminal narrowing. C5-C6: Severe discogenic degeneration with almost complete loss of disc height, endplate irregularity, large anterior osteophytes, and prominent posterior osteophytic ridging with bilateral uncovertebral hypertrophy, more prominent on the right. Mild central canal narrowing. Mild left and moderate right-sided foraminal narrowing. C6-C7: Severe discogenic degeneration with almost complete loss of disc height, anterior osteophytes, prominent posterior osteophytic ridging, and bilateral uncovertebral hypertrophy. Mild-moderate central canal narrowing. Moderate bilateral foraminal narrowing. C7-T1: Disc height preserved. No significant cervical stenosis. Moderate right-sided facet arthrosis. No significant central canal narrowing. No significant foraminal narrowing. Thyroid: The thyroid gland is not confidently identified. Prior thyroidectomy? Correlation with surgical history recommended. Trachea: There is a tracheotomy defect. Tracheal narrowing above the level of the tracheostomy defect has an appearance suggesting tracheal stenosis, image 25 of series 8 and 250 of series 6. Lungs: There are emphysematous changes in the upper lung zones. Pleural spaces: There is partially calcified pleural thickening at the lung apices, nonspecific but possibly a sequela of prior infection. Vasculature: There is atherosclerotic calcification at the carotid bifurcations bilaterally. Soft tissues: There are numerous surgical clips scattered through the neck. Correlation with surgical history is recommended. IMPRESSION: 1. Old C1 fractures with unusual alignment, as described, also seen on the comparison exam from May 26, 2023. 2. No acute cervical fracture demonstrated. 3. Cervical degenerative changes and grade 2 anterolisthesis of C4 on C5, as detailed level by level above. 4. Postsurgical changes in the neck with tracheal stenosis and a tracheostomy defect. Correlation with the patient's known surgical/clinical history is recommended. Dictated and Authenticated by: Neeraj Ching MD. Ordering:AMAIRANI Bower MD
--- NOTE | 2023-08-16 19:58 | DI.VRAD_ITS ---
PROCEDURE INFORMATION: Exam: XR Left Hand Exam date and time: 08/16/2023 6:23 PM Age: 78 years old Clinical indication: Other: L thumb ecchymosis and pain TECHNIQUE: Imaging protocol: Radiologic exam of the left hand. Views: 3 or more views. COMPARISON: US UPPER EXTREMITY VENOUS LT 01/04/2021 12:01 PM FINDINGS: Bones/joints: A mildly impacted and angulated fracture is present in the 1st proximal phalanx, involving the metacarpal phalangeal joint. There is no dislocation. No other fractures are observed. The fingers are not well extended. Severe joint space narrowing with central erosions and osteophytes is observed at the 4th finger proximal interphalangeal joint. Additional arthropathy is noted throughout the interphalangeal joints. The metacarpophalangeal joints are relatively normal. Bone mineralization appears low. Soft tissues: Unremarkable. Vasculature: Severe radial artery calcifications are noted. IMPRESSION: 1. Acute fracture, proximal phalanx of the thumb. 2. Polyarticular erosive osteoarthritis. Dictated and Authenticated by: Kalyan Perdomo MD. Ordering:AMAIRANI Bower MD
--- NOTE | 2023-08-16 20:02 | DI.VRAD_ITS ---
Addendum created by Kalyan Perdomo MD on 08/16/2023 8:06:41 PM EST: THIS REPORT CONTAINS FINDINGS THAT MAY BE CRITICAL TO PATIENT CARE. The findings were verbally communicated via telephone conference with Cheli Rankin at 8:03 PM EST on 08/16/2023. The findings were acknowledged and understood. Initial report created on 08/16/2023 8:02:24 PM EST: PROCEDURE INFORMATION: Exam: XR Chest Exam date and time: 08/16/2023 6:27 PM Age: 78 years old Clinical indication: Other: Hypotension; Additional info: ? Fall, body bruises, arm weakness/trembling. TECHNIQUE: Imaging protocol: Radiologic exam of the chest. Views: 2 views. COMPARISON: CR XR ABD FLAT UPRIGHT PA CHEST 06/18/2023 5:42 PM FINDINGS: Lungs: Moderate interstitial prominence noted throughout both lungs. No focal consolidation. Pleural spaces: Possible tiny right inferolateral pneumothorax. No significant pleural effusion. Heart/Mediastinum: Mild cardiomegaly. Vasculature: Tortuous descending thoracic aorta with a long stent graft. Bones/joints: Arthropathy and rotator cuff tear noted in the left shoulder. Degenerative changes are present in the cervical spine. IMPRESSION: 1. Possible right pneumothorax. 2. Chronic lung disease. 3. Overlying interstitial infiltrate/edema suspected. Dictated and Authenticated by: Kalyan Perdomo MD. Ordering:AMAIRANI Bower MD
[2023-08-16] MEDS: MORPHine 4 MG/ML SYR IVP (23:01)
[2023-08-17] VITALS (68 sets, daily range): BP systolic 87–151; BP diastolic 48–72; PULSE 65–96; RESP 8–34; TEMP 36.3–37.1; O2SAT 85–97
--- NOTE | 2023-08-17 | DI.CT_ITS ---
Exam(s) CT HEAD WO EXAM: CT HEAD WO CLINICAL HISTORY: subdural. TECHNIQUE: Imaging Protocol: Axial computed tomography images with coronal and sagittal reformatted images were created and reviewed COMPARISON: CT CT HEAD WO from 08/12/[address] HEAD CERVICAL SPINE WO from 08/16/2023 FINDINGS: Exam somewhat limited by motion. Ventricles and Extra axial spaces: Normal in size and morphology for the patient's age. Hemorrhage: No acute intraparenchymal hemorrhage. Stable size and appearance of left frontal parieta l subdural hematoma, nearly isodense to CSF, measuring 8 millimeters in maximal thickness. Cerebral parenchyma: Severe atrophy. White matter changes of small vessel disease. No evidence of a cute infarct or mass. Midline shift: None. Brainstem/Cerebellum: Normal. Calvarium: Normal. Visualized Paranasal sinuses:Minimal mucosal thickening. Mastoids: Clear. Soft Tissues: Unremarkable. ORBITS: No change in left retinal detachment. PITUITARY: Not enlarged. IMPRESSION: No change in subacute to chronic left subdural hematoma. No new abnormalities. RADIATION DOSE DELIVERED: 807.48mGy.cm Total DLP DATA REPOSITORY: All CT scans at this facility are submitted to the National Radiology Data Registry (NRDR) Dose Index Registry (DIR) with the [employer] ([employer]). RADIATION OPTIMIZATION: All CT scans at this facility use at least one of these dose optimization te chniques: automated exposure control; mA and/or kV adjustment per patient size (includes targeted exa ms where dose is matched to clinical indication); or iterative reconstruction.
[2023-08-17] MEDS: MORPHine 4 MG/ML SYR IVP (02:12)
[2023-08-17] MEDS: LORazepam 2 MG/ML VIAL 1 MG IVP (04:43)
[2023-08-17 07:04] LABS: Troponin I 9846 ng/L (< or =60)
--- NOTE | 2023-08-17 07:15 | RT.EKG_ITS ---
APPROVED REPORT Exam: Resting ECG Reason for Exam: chest pain Patient Location: I HR:85 bpm ECG Measurements Heart Rate 85 AXIS PA 204 P 55 QRSd 97 QRS 109 QT 434 T -11 QTc 517 Conclusion Sinus rhythm...normal P axis, V-rate 50- 99 Probable left atrial enlargement...P >50mS, <-0.10mV V1 Borderline low voltage, extremity leads...all extremity leads <0.6mV RBBB Prolonged QT interval...QTc >500mS
--- NOTE | 2023-08-17 07:19 | NUR.NOTE ---
Nursing Note: [id number] Hospitalist paged via hospital wall crane operator re elevated troponin 9846, trending up. [address] Moura webexed re elevated troponin. Response received.
[2023-08-17] MEDS: rOPINIRole 1 MG TAB 5 MG PO (08:20)
[2023-08-17] MEDS: Levothyroxine 88 MCG TAB PO (08:20)
[2023-08-17] MEDS: Finasteride 5 MG TAB PO (08:20)
[2023-08-17] MEDS: Gabapentin 100 MG CAP 200 MG PO (08:21)
[2023-08-17] MEDS: amLODIPine 5 MG TAB PO (08:21)
[2023-08-17] MEDS: Aspirin E.C. 81 MG TABEC PO (08:21)
[2023-08-17] MEDS: Acetylcysteine 600 MG CAP PO ×2 (08:21→19:56)
[2023-08-17] MEDS: Ferrous Sulfate 325 MG TAB PO (08:21)
[2023-08-17] MEDS: Sertraline 50 MG TAB PO (08:21)
[2023-08-17] MEDS: Omeprazole 20 MG CAPCR NG ×2 (08:21→19:56)
[2023-08-17] MEDS: Tamsulosin 0.4 MG CAPCR PO (08:21)
--- NOTE | 2023-08-17 08:42 | PDOC.CMIN ---
Date of service: 08/17/23 Time of Service: 08:42 Care Management Initial Assmt Initial Assessment REASON FOR HOSPITALIZATION:: NSTEMI PREVIOUS FUNCTIONAL STATUS/SOCIAL/FAMILY SUPPORTS:: Chan lives in [place] with his partner Kiara Lim. He has no children. 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 He is independent at baseline and does not receive any community services. Pineda does own a walker which he uses on occasion outside of the home. CURRENT FUNCTIONAL STATUS:: Chan was asleep when CM went to meet with him; his had left shortly before. Per nursing, Chan is a bit confused and restless so it was felt best not to disturb him. He has had an NSTEMI and is awaiting transfer to [facility] for a cardiac catheterization. ADVANCE DIRECTIVES:: On file. Kiara Lim [facility] Has patient been provided with info about the portal/API?: Yes Did the patient sign up for the portal?: No CODE STATUS:: Full Code INSURANCE COVERAGE / FINANCIAL ISSUES:: Medicare [employer] CURRENT HOME/COMMUNITY SERVICES/EQUIPMENT:: walker PRIMARY CARE PHYSICIAN:: Nazia Chan POTENTIAL DISCHARGE NEEDS:: follow up with PCP and plan of care PATIENT/FAMILY EDUCATION NEEDS:: Review of discharge instructions, activity, limitations, follow up plan, discuss Ask Me Three. TRANSPORTATION:: to be determined by disposition PLAN:: Chan has had an NSTEMI. In addition, he has a subdural hematoma, making treatment of the NSEMI challenging. He may get transferred to [facility] for either a cardiac catheterization or to neurosurgery if the cerebral bleed warrants intervention. CM will follow and continue to assess for discharge needs. [facility] All Active Problems (Updated 08/16/23 @ 21:14 by Cheli Rankin MD) Subdural hematoma (Acute) Pulmonary edema (Acute) Fracture of thumb, left, closed (Acute) Acute non-ST elevation myocardial infarction (NSTEMI) (Acute) Arm pain (Acute) Palliative care patient (Acute) Hemoptysis (Acute) Caregiver stress (Acute) Nausea & vomiting (Acute) Regurgitation of food (Acute) Pulmonary embolism (Chronic) Uses feeding tube (Acute) Gross hematuria (Acute) Ambulatory dysfunction (Acute) Leukocytosis (leucocytosis) (Acute) UTI (urinary tract infection) (Acute) Multiple subsegmental pulmonary emboli without acute cor pulmonale (Acute) C1 cervical fracture (Acute) Gastrostomy tube dysfunction (Acute) Advance care planning (Acute) Encounter for hospice care discussion (Acute) Unintentional weight loss of 10% body weight within 6 months (Acute) Dysuria (Acute) Malfunctioning jejunostomy tube (Acute) Need for follow-up by social work therapist (Acute) Dysphagia (Acute) Weakness (Acute) Impaired instrumental activities of daily living (Acute) Plantar fascial fibromatosis (Acute) Feeding tube dysfunction (Acute) Sensorineural hearing loss (SNHL) of both ears (Acute) Otalgia of right ear (Acute) Neck pain on right side (Acute) Neck pain on right side (Acute) Full code status (Acute) Need for home health care (Acute) MRSA pneumonia (Acute) pt likely colonized Occlusion of right vertebral artery (Acute) Hypoxemia (Acute) Complication of feeding tube (Acute) Peripheral neuropathy (Acute 02/21/15) PAOD (peripheral arterial occlusive disease) (Acute) COPD (chronic obstructive pulmonary disease) (Chronic) G tube feedings (Acute) 20F 3.0cm 11/30/22. Routine change every 4 months. 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 Hypertension Tobacco use COPD (chronic obstructive pulmonary disease) Post herpetic neuralgia Hypothyroidism Hyperlipemia Depression Anxiety Anemia Conjunctivitis, chronic Surgical History S/P AAA (abdominal aortic aneurysm) repair Status post laryngectomy History of esophagogastroduodenoscopy (EGD) (~08/10/19) Daron Casper APRN @ [facility]: hiatal hernia, GERD, Reyes's esophagitis, neuromuscular dysfunction History of laryngectomy Status post cardiac catheterization Status post cataract extraction and insertion of intraocular lens of right eye (07/12/18) History of tarsorrhaphy Status post cataract extraction and insertion of intraocular lens of left eye (04/30/12) 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) Sin-mullins button placed by Dr Elia Mcdonald, [facility] PROCEDURES RT/LEFT HEART CARD CATH COMPLETE LARYNGECTOMY Esophagoplasty EGD - MAC (07/06/17) Colonoscopy - MAC (12/22/16) History of radical laryngectomy Family History Nephew Throat cancer Maternal Cousin Cancer Social History Smoking/Tobacco Use Status: Former Tobacco Use Quit Date: 04/23/13 Tobacco: How many years used: 20 Smoking risk assessment performed?: Yes Alcohol Intake: never Drug use: Never Substance use type: does not use Housing: apartment Current gender identity: male Do you feel safe at home: Yes Do you feel safe in your relationship?: Yes SDOH(Care Management) Screening Will the Patient Participate in the Screening?: Unable to obtain Social Determinants of Health Comments(SDOH Details): unable to obtain any social information - not able and not willing to participate. Known he does live at home with . Had pending hospice/palliative consult
[2023-08-17] MEDS: Nystatin POWDER 15 GM JAR TP (09:24)
[2023-08-17] MEDS: Acetylcysteine 20% *ORAL/INHALED* 6000 MG/30 ML VIAL 400 MG IH ×2 (10:55→20:04)
[2023-08-17 11:18] LABS: PTT Activated 25.1 sec (23.6-32.8)
[2023-08-17] MEDS: Heparin in 0.45% NaCl 25,000 UNIT/250 ML BAG 6.5 UNIT IV (11:33)
--- NOTE | 2023-08-17 12:01 | NUR.NOTE ---
Nursing Note: Pt's partner, Kiara, contacted re home meds schedule. Per pharmacy, schedule of meds needs to be clarified for Bactrim and Vancomycin. Following this conversation, pharmacy contacted and they've agreed to discuss specific administration schedule. Awaiting orders.
--- NOTE | 2023-08-17 12:44 | PHACLINREV_ITS ---
Pharmacy Admission Review Admission Clinical Review Admission Pharmacy Review: Acute non-ST elevation myocardial infarction (NSTEMI) (Acute) pollen extracts Allergy (Mild, Verified 08/16/23 07:24) Wheezing Tetracyclines Allergy (Unknown, Verified 08/16/23 07:24) SKIN RASH Resuscitation Status Full Code Height 5 ft 4 in Weight 55.1 kg Pharmacy Admission Review Renal Dosing Renal Dosing: BUN 30 mg/dL (7-18) H 08/16/23 14:36 Creatinine 0.8 mg/dL (0.70-1.30) 08/16/23 14:36 Medications needing adjustments: Reviewed (crcl = 48) List of meds needing interventions: current meds ok Anticoagulation Anticoagulation: Hgb 9.7 g/dL (13.5-17.5) L 08/16/23 14:38 Hct 29.6 % (40.0-50.0) L 08/16/23 14:38 Plt Count 286 10^3/uL (130-400) 08/16/23 14:38 Creatinine 0.8 mg/dL (0.70-1.30) 08/16/23 14:36 DVT Prophylaxis: Reviewed Medications: Heparin (on heparin drip for ACS) Therapeutic Anticoagulation: Reviewed Medications: Heparin (heparin drip (indication: ACS) currently running at 6.5 mL/hr. Initially started 08/16/23 afternoon then stopped following discovery of subdural hematoma. Restarted today @1133 (risk/benefit). Pt had been on eliquis previously (started april 2023, stopped end of july 2023) ) Opiate Usage Evaluate Pain Scale/Pains Meds: Reviewed (morphine 4 mg IV q4h prn ordered - has used 2 doses) Scheduled Bowel Reg ordered if on Opiates?: No Relevant Labs Relevant Labs: Sodium 138 mmol/L (136-145) 08/16/23 14:36 Potassium 4.1 mmol/L (3.5-5.1) 08/16/23 14:36 Chloride 97 mmol/L (98-107) L 08/16/23 14:36 Magnesium 2.4 mg/dL (1.8-2.4) 08/16/23 14:36 Electrolytes, C-Reactive P, ESR: Reviewed (*troponin 9846 (trending up)) DM Control DM Control: Reviewed (no diabetes diagnosis. last A1C = 5.8% 01/30/23) Cardiac Review Cardiac Review: Troponin I 9846 ng/L (< or =60) H* 08/17/23 06:37 BP, HR, EF%: Reviewed QTc Review QTc: Reviewed (prolonged QTc = 517 08/17/23) IV to PO Switch IV Medications: Reviewed (IV heparin drip necessary for ACS, lorazepam IV for acute anxiety + morphine IV (consider switch to PO but so far minimal use)) Home Meds Relevent Home Meds Not ordered & why?: all home meds ordered. Confirmed [facility] neb + bactrim schedule -- pt uses on a 28 day on/28 day off repeating cycle (both on then both off), he is 14 days into current cycle. Pt's partner Kiara brought in [facility] [employer] (comp[facility]) [facility] BUD of neb out of fridge is 4 days (otherwise it must be kept frozen). 3 doses brought in so far, will need to request more tomorrow if pt is not transferred by then. of note - upon review of home meds it appears pt had been started on eliquis april 2023, removed from home med list 08/16/23 w/ note: Will be stopped at the end of Jul 2023 per patient
--- NOTE | 2023-08-17 13:13 | W.NUTRFU ---
Date of service: 08/17/23
[2023-08-17] MEDS: Albuterol/Ipratropium 3 ML UPD VIAL UPD (17:43)
--- NOTE | 2023-08-17 18:22 | W.PM.PROGNOT ---
Date of Service Date of service: 08/17/23 Time of Service: 18:23 Assessment and Plan Assessment and plan (1) Acute non-ST elevation myocardial infarction (NSTEMI): Status: Acute Assessment and plan: -NSTEMI. -Initially on aspirin and heparin, however after discovery of subdural hematoma overnight, decision was made with cardiology, neurosurgery and patient's DPOA to hold off on additional treatment -However, on the a.m. of 08/17/2023 patient's troponin is significantly elevated to 9800 -Discussion was again held with patient's DPOA and [facility] cardiology who agreed to accept the patient for cardiac catheterization -They recommended initiating heparin drip in the meanwhile and to call back patient has uncontrolled chest pain, or significant changes in his EKG Subjective Subjective Interval history since last seen: Patient not overly conversive, however he is able to nod in agreement that he is not in any acute distress or discomfort at this time Exam Narrative Exam Narrative: Chronically ill-appearing older gentleman with intact tracheostomy in no acute distress, ANO x 4, heart regular rhythm, lungs clear to auscultation bilaterally Objective Last Vital Signs Temp 98.2 F 08/17/23 15:15 Pulse 77 08/17/23 17:49 Resp 14 08/17/23 17:49 BP 109/58 L 08/17/23 15:01 Pulse Ox 97 08/17/23 17:49 Laboratory Results - last 24 hr 08/16/23 08/16/23 08/16/23 19:10 19:54 20:30 APTT ABG Sample Site Left Radial ABG pH 7.44 ABG pCO2 39 ABG pO2 54 L ABG HCO3 26 ABG Total CO2 25 ABG O2 Saturation 87 L ABG Base Excess 2 Troponin I Cancelled COVID-19 Source Cancelled SARS-CoV-2 (PCR) Cancelled Influenza Type A (PCR) Cancelled Influenza Type B (PCR) Cancelled RSV (PCR) Cancelled 08/17/23 06:37 APTT 25.1 ABG Sample Site ABG pH ABG pCO2 ABG pO2 ABG HCO3 ABG Total CO2 ABG O2 Saturation ABG Base Excess Troponin I 9846 H* COVID-19 Source SARS-CoV-2 (PCR) Influenza Type A (PCR) Influenza Type B (PCR) RSV (PCR) Time Spent with Patient Time Spent with Patient: >50 minutes Time was spent: preparing to see the patient(eg.review tests), obtaining and/or reviewing separately otained hiistory, ordering medications,tests, procedures, referring, communicating with other health medicare insurance specialist, indepentently interpreting results, counseling the patient and care coordination
[2023-08-17] MEDS: Rosuvastatin 20 MG TAB 40 MG NG (19:56)
[2023-08-17] MEDS: Gabapentin 100 MG CAP 200 MG NG (19:57)
[2023-08-17] MEDS: rOPINIRole 1 MG TAB NG (19:57)
[2023-08-17] MEDS: Acetaminophen Solution 650 MG/20.3 ML CUP 1000 MG NG (19:59)
[2023-08-17] MEDS: Melatonin 3 MG TAB 6 MG PO (19:59)
[2023-08-17] MEDS: Normal Saline Flush 10 ML SYR IVP (21:00)
[2023-08-18] VITALS (26 sets, daily range): BP systolic 111–155; BP diastolic 39–101; PULSE 64–81; RESP 6–30; TEMP 36.5–36.8; O2SAT 87–100
--- NOTE | 2023-08-18 | DI.US_ITS ---
APPROVED REPORT EXAM: Comprehensive 2D, Doppler, and color-flow Echocardiogram Patient Location: In-Patient Room/Bed: [id number] Security Installer: Arabella Stauffer RDCS (AE) Indications: NSTEMI Other Information Study Quality: Fair. Technically limited study due to body habitus, inability to position patient exa m done bedside icu supine.. Conclusion Normal left ventricular wall thickness and chamber size.. No segmental wall motion abnormalities are identified. EF is 55% Right ventricle is not well-visualized but appears grossly normal Both atria are normal in size Aortic valve is sclerotic without stenosis or regurgitation Mildly thickened mitral leaflets, trace to mild mitral regurgitation Wall motion Left Ventricle The left ventricle is normal size. The overall left ventricular systolic function appears normal. The re is normal left ventricular wall thickness. Regional wall motion is not well visualized but grossly normal. Limited imaging window available, not well visualized. LVEF is 55%. Right Ventricle Right ventricle is not well visualized. Right ventricular systolic function could not be assessed. Atria The left atrium size is normal. The right atrium size is normal. Limited imaging window available, no t well visualized. Aortic Valve The Aortic valve is sclerotic. There is no aortic valvular stenosis. No aortic regurgitation is prese nt. Mitral Valve Mildly thickened mitral leaflets No evidence of mitral valve stenosis. Trace to mild mitral regurgita tion. Tricuspid Valve The tricuspid valve is normal in structure. There is no tricuspid valve stenosis. Trace tricuspid reg urgitation. Pulmonic Valve The pulmonary valve is normal in structure. There is no pulmonic valvular stenosis. There is no pulmo vickie valvular regurgitation. Great Vessels The aortic root is normal in size. Ascending aorta is not well visualized. Aortic arch is not well vi sualized. The IVC was not visualized. Pericardium Technically limited subcostal imaging, abdominal bandage. 2D Dimensions IVSD d PLAX 1.24 cm M: 0.6-1.2 Ao Root d 3.61 cm M: 3.1 - 3.7 LVPW d PLAX 1.22 cm M: 0.6 - 1.2 LVID d PLAX 4.47 cm M: 4.2 - 5.8 LVDs 3.34 cm M: 2.5 - 4.0 LV EF Teichholz 50.2 % FS 25.33 % LV EDV (Teich) 91.2 mL LV ESV (Teich) 45.4 mL Auto EF LV EDV A4C 135.6 mL LV EDV A2C 154.1 mL LV EDV BP 145.7 mL LV ESV A4C 63.4 mL LV ESV A2C 72.4 mL LV ESV BP 68.2 mL LVEF(%) A4C 53.2 % LVEF(%) A2C 53.0 % LVEF(%) BP 53.2 % LV SV A4C 72.1 ml LV SV A2C 81.7 ml LV SV BP 77.6 ml LV CO A4C 5.5 L/min LV CO A2C 6.3 L/min LV CO BP 5.9 L/min HR A4C 75.64 BPM HR A2C 77.42 BPM LV EDV Index (BP) LV Diastology MV E' medial 0.064 (>0.07 m/s) MV E Vmax 0.88 (0.4-1.3 m/s) MV E/E' MED 13.64 (<14) MV A Vmax 1.05 (0.4-1.3 m/s) MV E' lateral 0.092 (>0.1 m/s) E/A Ratio 0.8 MV E/E' LAT 9.53 (<14) MV E' Average 0.078 m/s MV E/E'(average) 11.22 Aortic Valve AoV Vmax 1.31 m/s LVOT Vmax 0.90 m/s AoV Peak Grad 6.9 mmHg LVOT Peak Grad 3.3 mmHg AoV Area (Vmax) 1.91 cm2 LVOT VTI 0.219 m AoV VTI 0.326 m LVOT Mean Grad 1.7 mmHg AoV Mean Rasta. 0.92 m/s LVOT SV 60.60 mL AoV Mean Grad 3.8 mmHg LVOT Diam s 1.85 cm AoV Area (VTI) 1.86 cm2 Velocity Ratio 0.69 Mitral Valve MV DT 281 (160-240 msec) MV Vmax TIPS 1.02 m/s MV Mean Grad 2.0 (<2mmHg) MV VTI 0.316 m Pulmonary Valve PV Vmax 0.84 (0.5-1.5 m/s) RVOT Vmax 0.61 m/s PV Peak Grad 2.8 mmHg RVOT Peak Gr. 1.5 mmHg PV Mean Rasta 0.49 m/s RVOT VTI 0.149 m PV Mean Grad 1.1 mmHg RVOT Mean Gr. 0.9 mmHg
[2023-08-18 02:28] LABS: PTT Activated 70.8 sec (23.6-32.8)
[2023-08-18] MEDS: Levothyroxine 88 MCG TAB NG (06:22)
[2023-08-18] MEDS: Acetylcysteine 600 MG CAP PO (08:56)
[2023-08-18] MEDS: Ferrous Sulfate 325 MG TAB NG (08:57)
[2023-08-18] MEDS: Tamsulosin 0.4 MG CAPCR PO (08:57)
[2023-08-18] MEDS: Omeprazole 20 MG CAPCR NG (08:57)
[2023-08-18] MEDS: Finasteride 5 MG TAB NG (08:57)
[2023-08-18] MEDS: Gabapentin 100 MG CAP 200 MG NG (08:57)
[2023-08-18] MEDS: Sertraline 50 MG TAB PO (08:58)
[2023-08-18] MEDS: amLODIPine 5 MG TAB NG (08:58)
[2023-08-18] MEDS: Aspirin 81 MG CHEW NG (08:59)
[2023-08-18] MEDS: Nystatin POWDER 15 GM JAR TP (08:59)
[2023-08-18] MEDS: rOPINIRole 1 MG TAB NG (08:59)
[2023-08-18 09:02] LABS: PTT Activated 44.1 sec (23.6-32.8)
[2023-08-18 09:08] LABS: Anion Gap 9.4 mmol/L (3-11); BUN 20 mg/dL (7-18); CO2 27.6 mmol/L (21.0-32.0); CREATININE 0.7 mg/dL (0.70-1.30); Calcium 8.4 mg/dL (8.5-10.1); Chloride 103 mmol/L (98-107); Glucose 99 mg/dL (74-106); Potassium 3.4 mmol/L (3.5-5.1); Sodium 140 mmol/L (136-145)
[2023-08-18 09:15] LABS: Troponin I 9715 ng/L (< or =60)
--- NOTE | 2023-08-18 09:16 | PDOC.CMPRO ---
Date of service: 08/18/23 Time of Service: 09:16 Care Management Progress Note Progress Note Text Progress Note Text: S/O:Chan was sitting up on the side of the bed when CM met with him. He is scheduled to transfer to [facility] today and appeared somewhat anxious. He stated that he does not have any clothes or shoes or his teeth. He has not heard from his partner Kiara to let her know he is leaving today so does not know what her plan is. CM called Kiara for Chan however there was no answer. Kiara arrived to visit with Chan shortly before he left for [facility]. CM relayed Chan' request for clothing and his dentures. Kiara indicated that she plans to visit him tomorrow at [facility] and will bring what he needs.. A: Chan is a 78 year old man admitted on 08/16/23 with an NSTEMI P:Chan is awaiting transfer to [facility] for a probable cardiac catheterization. He will transport vis EMS coordinated by nursing machine assembler supervisor. CM will continue to follow and assess for discharge needs. SDOH(Care Management) Screening Will the Patient Participate in the Screening?: Unable to obtain Social Determinants of Health Comments(SDOH Details): unable to obtain any social information - not able and not willing to participate. Known he does live at home with . Had pending hospice/palliative consult
[2023-08-18] MEDS: Albuterol/Ipratropium 3 ML UPD VIAL UPD (09:47)
[2023-08-18] MEDS: Heparin in 0.45% NaCl 25,000 UNIT/250 ML BAG 9.5 UNIT IV (09:53)
[2023-08-18 10:03] LABS: HCT 29.4 % (40.0-50.0); HGB 9.1 g/dL (13.5-17.5); MCH 31.5 pg (27.0-33.0); MPV 9.8 fL (8.0-11.0); Platelet Count 250 10^3/uL (130-400); RBC 2.89 10^6/uL (4.36-5.78); RDW 13.5 % (11.8-14.1); RDW-SD 51.2 fL; WBC 10.05 10^3/uL (4.4-10.8)
[2023-08-18 10:05] LABS: MCV 102 fL (80-95)
--- NOTE | 2023-08-18 11:44 | DSE_ITS ---
Date of service: 08/18/23 Time of Service: 11:44 DS: Diagnosis Discharge Diagnosis (1) Acute non-ST elevation myocardial infarction (NSTEMI): Status: Acute Asessment and Plan: Hold him accountable patient initially admitted for NSTEMI, however left shortly after admission he was found to have acute or subacute subdural hematoma therefore anticoagulation was held for his NSTEMI. However, on the following morning of admission on 08/17/2023 patient's troponin significantly increased to about 10,000. Discussion was had with [facility] [place] and was ultimately determined that was in the best interest of the patient to initiate anticoagulation especially after repeat CT showed that subdural was likely subacute versus chronic. While he was a NVR H he tolerated heparin drip without any issues. Ultimately was determined that the patient was stable for discharge [place] [facility] [place] for NSTEMI Discharge Plan Disposition Patient Disposition: Transfer-Acute Inpatient Care Specific Acute Inpt Facility: [facility] Condition: Good Discharge Details Reason For Visit: NSTEMI Admit Date/Time: 08/16/23 19:22 Admit Provider: Jhonny Aguirre Attending Provider: Jhonny Aguirre Primary Care Provider: Nazia Chan Hospital Course Hospital Course: Hold him accountable patient initially admitted for NSTEMI, however left shortly after admission he was found to have acute or subacute subdural hematoma therefore anticoagulation was held for his NSTEMI. However, on the following morning of admission on 08/17/2023 patient's troponin significantly increased to about 10,000. Discussion was had with [facility] [place] and was ultimately determined that was in the best interest of the patient to initiate anticoagulation especially after repeat CT showed that subdural was likely sub acute versus chronic. While he was a NVR H he tolerated heparin drip without any issues. Ultimately was determined that the patient was stable for discharge to [facility] [place] catheter[place] for NSTEMI Home Meds and New Rx's Prescriptions: No Action ropinirole 1 mg tablet 1 mg PO BID aspirin [Adult Aspirin Regimen] 81 mg tablet,delayed release (DR/EC) 81 mg PO DAILY acetaminophen [Tylenol Extra Strength] 500 mg tablet 1,000 mg PO BID PRN omeprazole 20 mg capsule,delayed release(DR/EC) 20 mg feeding tube BID Qty: 90 4RF acetylcysteine 100 mg/mL (10 %) solution 4 ml inhalation BID amlodipine 5 mg tablet 5 mg PO DAILY levothyroxine See Rx Instructions .ROUTE DIRECTED Rx Instructions: as directed; rosuvastatin 40 mg tablet 40 mg feeding tube HS Qty: 90 4RF ipratropium-albuterol 0.5 mg-3 mg(2.5 mg base)/3 mL solution for nebulization 3 ml IN QID PRN (Reason: shortness of breath or wheezing) Qty: 90 4RF Rx Instructions: increased dose/use treatment 4 times/day as needed NOT SENT polyethylene glycol 3350 [Miralax] 17 gram/dose powder 17 g PO DAILY PRN (Reason: constipation) Rx Instructions: 06/19/22 instructed by PCP to take 1/2 cap daily, may reduce to half cap three times per week if daily is too much Vancomycin 250 mg NEB BID 28 Days Qty: 280 12RF Hold Instructions: takes every other 28 days Rx Instructions: 250mg vancomycin in 5 cc of sterile water for nebulization To be given every other month for 28 consecutive days gabapentin 100 mg capsule 200 mg PO BID Qty: 360 3RF sulfamethoxazole-trimethoprim 200-40 mg/5 mL suspension 5 ml PO DAILY 28 Days Qty: 473 9RF Rx Instructions: Take daily for 4 weeks, then off for 4 weeks, etc nystatin 100,000 unit/gram powder 1 applic topical BID Qty: 60 12RF finasteride 5 mg tablet 5 mg PO DAILY Qty: 90 3RF tamsulosin [Flomax] 0.4 mg capsule 0.4 mg PO DAILY Qty: 90 3RF sertraline 50 mg tablet 50 mg PO DAILY Qty: 30 2RF Rx Instructions: decreased by PCP on 06/19/22 acetylcysteine [NAC] 600 mg capsule 600 mg PO BID Qty: 60 12RF melatonin 3 MG tablet 6 mg PO HS Align 4 mg Capsule 4 mg PO QPM ferrous sulfate [FeroSul] 325 mg (65 mg iron) tablet 325 mg PO DAILY Patient Comments: TAKE 1 TABLET VIA FEEDING TUBE ONCE DAILY Discharge Instructions Activity:: Activity as Tolerated Equipment/Supplies:: No Equipment Needed Diet:: As Tolerated Discharge Orders Discharge Orders: Discharge Order (Routine); Ordered 08/18/23 Ordered By: Nelson Moura DS: Summary Time Spent with Patient providing and/or coordinating discharge services: Greater than 30 minutes Status at Discharge Functional status at discharge: independent ambulation Overall status at discharge: patient is back to baseline Mental Status: mental status grossly normal Speech and Movement: speech and movement normal Mood: congruent mood Affect: normal affect Quality:SDOH Health Related Social Needs: No Data to Display Referrals and interventions: hospice/palliative home health Exam Narrative Exam Narrative: Chronically ill-appearing older gentleman with intact tracheostomy in no acute distress, ANO x 4, heart regular rhythm, lungs clear to auscultation bilaterally Psych Mental Status: mental status grossly normal Speech and Movement: speech and movement normal Mood: congruent mood Affect: normal affect DS: Data Vitals/I&O Vitals and I&O: Vital Signs Temperature 98.1 F 08/18/23 01:01 Temperature Source Temporal Artery Scan 08/18/23 08:00 Pulse 75 08/18/23 11:01 Pulse 78 08/18/23 11:01 Respiratory Rate 15 08/18/23 11:01 Respiratory Effort Normal 08/18/23 08:00 Respiratory Depth Normal 08/18/23 08:00 Respiratory Pattern Normal 08/18/23 08:00 Blood Pressure 134/56 L 08/18/23 11:01 Blood Pressure Mean 78 08/18/23 11:01 Blood Pressure Position Supine 08/18/23 08:00 Pulse Oximetry 94 08/18/23 11:01 Oxygen Delivery Method Trach Collar 08/18/23 09:47 Oxygen Flow Rate 8 08/18/23 09:47 Fraction of Inspired Oxygen (FIO2) 35 08/17/23 19:35 Pain Level 0 08/17/23 19:35 Intake & Output 08/17/23 08/18/23 08/18/23 17:59 05:59 17:59 Intake Total . 651.85 / 675.90 664.992 / 664.992 Output Total 325 / 325 700 / 1025 450 / 450 Balance -300.95 / -300.95 -48.15 / -349.10 214.992 / 214.992 Weight 113 lb 15.664 oz Intake: IV .05 51.85 / 75.90 114.992 / 114.992 Oral 600 / 600 550 / 550 Output: Urine 325 / 325 700 / 1025 450 / 450 Other: Urine Color Light Ankita Dark Ankita Dark Ankita Dark Ankita Urine Appearance Clear Urine Odor None Strong Comment reported as darker urine by prior rn 2 voids Voiding Methods Urinal Urinal Diaper Incontinent Data Completed and Pending Labs on day of discharge: Labs from last 24 hours 08/18/23 08/18/23 08/18/23 16:00 09:39 08:39 WBC 10.05 RBC 2.89 L Hgb 9.1 L Hct 29.4 L MCV 102 H D MCH 31.5 MCHC 31.0 L RDW 13.5 Plt Count 250 MPV 9.8 APTT Pending 44.1 H Sodium 140 Potassium 3.4 L Chloride 103 Carbon Dioxide 27.6 Anion Gap 9.4 BUN 20 H Creatinine 0.7 Est GFR (CKD-EPI 2020) 94.90 Glucose 99 Calcium 8.4 L Troponin I 9715 H* 08/18/23 08/17/23 02:06 19:50 WBC RBC Hgb Hct MCV MCH MCHC RDW Plt Count MPV APTT 70.8 H 34.0 H Sodium Potassium Chloride Carbon Dioxide Anion Gap BUN Creatinine Est GFR (CKD-EPI 2020) Glucose Calcium Troponin I PFSH All Active Problems (Updated 08/16/23 @ 21:14 by Cheli Rankin MD) Subdural hematoma (Acute) Pulmonary edema (Acute) Fracture of thumb, left, closed (Acute) Acute non-ST elevation myocardial infarction (NSTEMI) (Acute) Arm pain (Acute) Palliative care patient (Acute) Hemoptysis (Acute) Caregiver stress (Acute) Nausea & vomiting (Acute) Regurgitation of food (Acute) Pulmonary embolism (Chronic) Uses feeding tube (Acute) Gross hematuria (Acute) Ambulatory dysfunction (Acute) Leukocytosis (leucocytosis) (Acute) UTI (urinary tract infection) (Acute) Multiple subsegmental pulmonary emboli without acute cor pulmonale (Acute) C1 cervical fracture (Acute) Gastrostomy tube dysfunction (Acute) Advance care planning (Acute) Encounter for hospice care discussion (Acute) Unintentional weight loss of 10% body weight within 6 months (Acute) Dysuria (Acute) Malfunctioning jejunostomy tube (Acute) Need for follow-up by forensic social worker (Acute) Dysphagia (Acute) Weakness (Acute) Impaired instrumental activities of daily living (Acute) Plantar fascial fibromatosis (Acute) Feeding tube dysfunction (Acute) Sensorineural hearing loss (SNHL) of both ears (Acute) Otalgia of right ear (Acute) Neck pain on right side (Acute) Neck pain on right side (Acute) Full code status (Acute) Need for home health care (Acute) MRSA pneumonia (Acute) pt likely colonized Occlusion of right vertebral artery (Acute) Hypoxemia (Acute) Complication of feeding tube (Acute) Peripheral neuropathy (Acute 02/21/15) PAOD (peripheral arterial occlusive disease) (Acute) COPD (chronic obstructive pulmonary disease) (Chronic) G tube feedings (Acute) 20F 3.0cm 11/30/22. Routine change every 4 months. 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 Hypertension Tobacco use COPD (chronic obstructive pulmonary disease) Post herpetic neuralgia Hypothyroidism Hyperlipemia Depression Anxiety Anemia Conjunctivitis, chronic Surgical History S/P AAA (abdominal aortic aneurysm) repair Status post laryngectomy History of esophagogastroduodenoscopy (EGD) (~08/10/19) Daron Casper APRN @ [facility]: hiatal hernia, GERD, Reyes's esophagitis, neuromuscular dysfunction History of laryngectomy Status post cardiac catheterization Status post cataract extraction and insertion of intraocular lens of right eye (07/12/18) History of tarsorrhaphy Status post cataract extraction and insertion of intraocular lens of left eye (04/30/12) 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) Sin-mullins button placed by Dr Elia Mcdonald, [facility] PROCEDURES RT/LEFT HEART CARD CATH COMPLETE LARYNGECTOMY Esophagoplasty EGD - MAC (07/06/17) Colonoscopy - MAC (12/22/16) History of radical laryngectomy Family History Nephew Throat cancer Maternal Cousin Cancer Social History Smoking/Tobacco Use Status: Former Tobacco Use Quit Date: 04/23/13 Tobacco: How many years used: 20 Smoking risk assessment performed?: Yes Alcohol Intake: never Drug use: Never Substance use type: does not use Housing: apartment Current gender identity: male Do you feel safe at home: Yes Do you feel safe in your relationship?: Yes Time Spent with Patient Time Spent with Patient: <45 minutes Time was spent: preparing to see the patient(eg.review tests), obtaining and/or reviewing separately otained hiistory, ordering medications,tests, procedures, referring, communicating with other health technical healthcare consultant, indepentently interpreting results, counseling the patient and care coordination
--- NOTE | 2023-08-18 15:03 | CMDISCH_ITS ---
Date of service: 08/18/23 Time of Service: 15:04 Care Management Discharge Plan Reason for Hospitalization: NSTEMI Discharge Plan: Chan is awaiting transfer [place] [facility] [place] probable cardiac catheter[place]. He will transport vis EMS coordinated by nursing public relations supervisor. Patient/Family Education Needs: to be determined by [facility] Services Needed at Discharge: Transportation SDOH Health Related Social Needs: No Data to Display Referrals and interventions: hospice/palliative home health
--- NOTE | 2023-08-18 15:03 | PDOC.CMDIS ---
Date of service: 08/18/23 Time of Service: 15:04 Care Management Discharge Plan Reason for Hospitalization: NSTEMI Discharge Plan: Chan is awaiting transfer to [facility] for [place] probable cardiac catheterization. He will transport vis EMS coordinated by nursing supervisor beet end. Patient/Family Education Needs: to be determined by [facility] Services Needed at Discharge: Transportation SDOH Health Related Social Needs: No Data to Display Referrals and interventions: hospice/palliative home health
== END 2023-08-18 14:50 | disposition short-term general hospital (02) ==
LOC: ER 19:01 → ICU 20:30
PROVIDERS: Family Medicine; Internal Medicine; Admitting Provider General Practice; Emergency Provider Emergency Medicine; PCP Physician Assistant Medical; Visit Provider General Practice
DX: I21.4 Non-ST elevation (NSTEMI) myocardial infarction (principal); Z93.0 Tracheostomy status; Z93.1 Gastrostomy status; J44.9 Chronic obstructive pulmonary disease, unspecified; Z90.02 Acquired absence of larynx; I45.10 Unspecified right bundle-branch block; S06.5XAA Traumatic subdural hemorrhage with loss of consciousness status unknown, initial encounter; X58.XXXA Exposure to other specified factors, initial encounter; I73.9 Peripheral vascular disease, unspecified; J96.11 Chronic respiratory failure with hypoxia; I25.10 Atherosclerotic heart disease of native coronary artery without angina pectoris; Z99.81 Dependence on supplemental oxygen; E03.9 Hypothyroidism, unspecified; I10 Essential (primary) hypertension; E78.5 Hyperlipidemia, unspecified; Z79.899 Other long term (current) drug therapy; Z85.21 Personal history of malignant neoplasm of larynx; Z87.891 Personal history of nicotine dependence; Z86.711 Personal history of pulmonary embolism
CPT/HCPCS: 00123; 36415; 80048; 80053; 82805; 85027; 87040; 87637; 93005; 93306; 94640; 96365; 96366; 96374; 96375; 96376; 99291; 99292; 70450; 71046; 72125; 73130; 81003; 81015; 83605; 83735; 84439; 84443; 84484; 85025; 85730; 93010; 99223; 99233; 99238; J1644; J2060; J2270; J3490; J7608; J7620

== ENCOUNTER 2023-08-30 13:24 | Emergency (ER) | payer MEDICARE, MEDICAID, SELFPAY ==
--- NOTE | 2023-08-30 13:15 | RT.EKG_ITS ---
APPROVED REPORT Exam: Resting ECG Reason for Exam: difficulty breathing Patient Location: E HR:85 bpm ECG Measurements Heart Rate 85 AXIS IN 228 P 0 QRSd 158 QRS 86 QT 405 T -32 QTc 483 Conclusion Sinus rhythm...normal P axis, V-rate 60- 99 Prolonged IN interval...IN >220, V-rate 50- 90 Left atrial enlargement...P, P'>60mS, <-0.15mV V1 Right bundle branch block...QRSd>120, terminal axis(90,270)
[2023-08-30 13:23] VITALS: BP 114/80; PULSE 85; RESP 20; O2SAT 98
[2023-08-30 13:32] VITALS: BP 114/80; PULSE 82; RESP 20
[2023-08-30 13:33] VITALS: PULSE 80; RESP 14; RESP 18
[2023-08-30 13:40] VITALS: PULSE 77; RESP 12
[2023-08-30 13:42] LABS: Source Nasal/Nares
--- NOTE | 2023-08-30 13:45 | DI.RAD_ITS ---
Exam(s) XR PORTABLE CHEST AP EXAM: XR PORTABLE CHEST AP CLINICAL HISTORY: shortness of breath. TECHNIQUE: 2D digital imaging was performed. COMPARISON: CR XR ABD FLAT UPRIGHT PA CHEST from 06/18/2023 FINDINGS: Single AP portable view. Mild cardiomegaly again noted. Tortuous descending thoracic aorta is again noted which is again note d to contain an aortic stent graft which commences in the mid descending thoracic aorta and extends t o below the level the field of view of this study and is also associated with a right renal artery os tial stent. Prior studies reveal the distal anastomoses of the stent graft to be in the iliac arteri es. Bilateral symmetrical interstitial disease is again noted in the lung lujan. No obvious confluent infiltrates. Slight blunting of left costophrenic angle is noted which may christina blank a small amount left pleural fluid. Density over the lower left lateral lung field is probably artifact related to adjacent wires. IMPRESSION: Chronic interstitial disease. Aortic stent graft extending from the midthoracic aorta to the iliac a rteries in the pelvis. Probable small left pleural effusion.Recommend nonportable PA and lateral vie ws when clinically possible. DATA REPOSITORY: RADIATION DOSE DELIVERED:
--- NOTE | 2023-08-30 13:51 | ED.GENADUL_ITS ---
Discharge Plan Disposition Patient Disposition: Home Condition: Stable Discharge Details Clinical Impression: Shortness of breath Primary Care Provider: Nazia Chan ED Provider: Kalyan Barreto Home Meds and New Rx's Prescriptions: New furosemide 20 mg tablet 20 mg PO DAILY Qty: 30 0RF Continued ropinirole 1 mg tablet 1 mg PO BID aspirin [Adult Aspirin Regimen] 81 mg tablet,delayed release (DR/EC) 81 mg PO DAILY acetaminophen [Tylenol Extra Strength] 500 mg tablet 1,000 mg PO BID PRN omeprazole 20 mg capsule,delayed release(DR/EC) 20 mg feeding tube BID Qty: 90 4RF acetylcysteine 100 mg/mL (10 %) solution 4 ml inhalation BID amlodipine 5 mg tablet 5 mg PO DAILY levothyroxine See Rx Instructions .ROUTE DIRECTED Rx Instructions: as directed; rosuvastatin 40 mg tablet 40 mg feeding tube HS Qty: 90 4RF ipratropium-albuterol 0.5 mg-3 mg(2.5 mg base)/3 mL solution for nebulization 3 ml IN QID PRN (Reason: shortness of breath or wheezing) Qty: 90 4RF Rx Instructions: increased dose/use treatment 4 times/day as needed NOT SENT polyethylene glycol 3350 [Miralax] 17 gram/dose powder 17 g PO DAILY PRN (Reason: constipation) Rx Instructions: 06/19/22 instructed by PCP to take 1/2 cap daily, may reduce to half cap three times per week if daily is too much Vancomycin 250 mg NEB BID 28 Days Qty: 280 12RF Hold Instructions: takes every other 28 days Rx Instructions: 250mg vancomycin in 5 cc of sterile water for nebulization To be given every other month for 28 consecutive days gabapentin 100 mg capsule 200 mg PO BID Qty: 360 3RF sulfamethoxazole-trimethoprim 200-40 mg/5 mL suspension 5 ml PO DAILY 28 Days Qty: 473 9RF Rx Instructions: Take daily for 4 weeks, then off for 4 weeks, etc nystatin 100,000 unit/gram powder 1 applic topical BID Qty: 60 12RF finasteride 5 mg tablet 5 mg PO DAILY Qty: 90 3RF tamsulosin [Flomax] 0.4 mg capsule 0.4 mg PO DAILY Qty: 90 3RF sertraline 50 mg tablet 50 mg PO DAILY Qty: 30 2RF Rx Instructions: decreased by PCP on 06/19/22 acetylcysteine [NAC] 600 mg capsule 600 mg PO BID Qty: 60 12RF melatonin 3 MG tablet 6 mg PO HS Align 4 mg Capsule 4 mg PO QPM ferrous sulfate [FeroSul] 325 mg (65 mg iron) tablet 325 mg PO DAILY Patient Comments: TAKE 1 TABLET VIA FEEDING TUBE ONCE DAILY Discharge Instructions Additional Instructions: You are found to have a small amount of fluid in your lungs which is common after you have a heart attack which you had when he went to [facility]. There is no findings to suggest a heart attack today, your troponin which evaluates for heart attack was negative Follow-up with your primary care provider within 1 to 2 weeks and determine if you should continue the furosemide Feel more ill, have severe chest pain or worsening shortness of breath return to the emergency department for reevaluation Discharge Data Discharge Date/Time-TO BE ENTERED AT DEPARTURE: 08/30/23 15:20 HPI General Mode of arrival: EMS . Date/Time Provider Initiated Documentation: 08/30/23 13:24 . Limitations to Documentation: no limitations . Information obtained by: patient . History of Present Illness 78 year old M presents to the emergency department with the chief complaint of Shortness of breath, described as moderate, Patient started experiencing this hour(s) (10) and it has been now resolved. No relieving factors improve symptom(s), No exacerbating factors reported . Patient notes denies chest pain and fever/chills. Patient did receive the following treatments prior to arrival, none Related Data Home Medications Medication Instructions Recorded Confirmed omeprazole 20 mg capsule,delayed 20 mg feeding tube BID #90 caps 10/05/19 08/30/23 release melatonin 3 mg tablet 6 mg PO HS 10/29/19 08/30/23 rosuvastatin 40 mg tablet 40 mg feeding tube HS #90 tabs 12/14/19 08/30/23 acetylcysteine 100 mg/mL (10 %) 4 ml inhalation BID 07/05/20 08/30/23 solution ipratropium 0.5 mg-albuterol 3 mg 3 ml IN QID PRN shortness of 07/30/20 08/30/23 (2.5 mg base)/3 mL nebulization breath or wheezing #90 mL soln amlodipine 5 mg tablet 5 mg PO DAILY 10/04/20 08/30/23 Bifidobacterium infantis 4 mg 4 mg PO QPM 08/03/21 08/30/23 capsule (Align) ferrous sulfate 325 mg (65 mg 325 mg PO DAILY 08/05/21 08/30/23 iron) tablet (FeroSul) aspirin 81 mg tablet,delayed 81 mg PO DAILY 11/25/21 08/30/23 release (Adult Aspirin Regimen) ropinirole 1 mg tablet 1 mg PO BID 01/07/22 08/30/23 acetaminophen 500 mg tablet 1,000 mg PO BID PRN 03/05/22 08/30/23 (Tylenol Extra Strength) polyethylene glycol 3350 17 17 g PO DAILY PRN constipation 06/19/22 08/30/23 gram/dose oral powder (Miralax) Vancomycin 250 mg NEB BID 28 days #280 mL 09/29/22 08/30/23 levothyroxine See Rx Instructions .Route 10/27/22 08/30/23 DIRECTED gabapentin 100 mg capsule 200 mg (2 x 100 mg) PO BID #360 12/10/22 08/30/23 caps sulfamethoxazole 200 5 ml PO DAILY 28 days #473 mL 12/11/22 08/30/23 mg-trimethoprim 40 mg/5 mL oral suspension nystatin 100,000 unit/gram topical 1 applic topical BID #60 grams 02/19/23 08/30/23 powder finasteride 5 mg tablet 5 mg PO DAILY #90 tabs 04/16/23 08/30/23 tamsulosin 0.4 mg capsule (Flomax) 0.4 mg PO DAILY #90 caps 04/16/23 08/30/23 sertraline 50 mg tablet 50 mg PO DAILY #30 tabs 07/20/23 08/30/23 acetylcysteine 600 mg capsule (NAC) 600 mg PO BID #60 caps 07/28/23 08/30/23 furosemide 20 mg tablet 20 mg PO DAILY #30 tabs 08/30/23 Previous Rx's Medication Instructions Recorded omeprazole 20 mg capsule,delayed 20 mg feeding tube BID #90 caps 10/05/19 release rosuvastatin 40 mg tablet 40 mg feeding tube HS #90 tabs 12/14/19 ipratropium 0.5 mg-albuterol 3 mg 3 ml IN QID PRN shortness of 07/30/20 (2.5 mg base)/3 mL nebulization breath or wheezing #90 mL soln Vancomycin 250 mg NEB BID 28 days #280 mL 09/29/22 gabapentin 100 mg capsule 200 mg (2 x 100 mg) PO BID #360 12/10/22 caps sulfamethoxazole 200 5 ml PO DAILY 28 days #473 mL 12/11/22 mg-trimethoprim 40 mg/5 mL oral suspension nystatin 100,000 unit/gram topical 1 applic topical BID #60 grams 02/19/23 powder finasteride 5 mg tablet 5 mg PO DAILY #90 tabs 04/16/23 tamsulosin 0.4 mg capsule (Flomax) 0.4 mg PO DAILY #90 caps 04/16/23 sertraline 50 mg tablet 50 mg PO DAILY #30 tabs 07/20/23 acetylcysteine 600 mg capsule (NAC) 600 mg PO BID #60 caps 07/28/23 furosemide 20 mg tablet 20 mg PO DAILY #30 tabs 08/30/23 Allergies Allergy/AdvReac Type Severity Reaction Status Date / Time pollen extracts Allergy Mild Wheezing Verified 08/30/23 13:32 Tetracyclines Allergy Unknown SKIN RASH Verified 08/30/23 13:32 General Stated Complaint: SOB CHER: 3 Review of Systems All systems reviewed & are unremarkable except as noted in HPI and below Constitutional Constitutional: Denies chills, Denies fever(s) and Denies weakness Cardiovascular Cardiovascular: Denies chest pain Gastrointestinal Gastrointestinal: Denies abdominal pain, Denies nausea and Denies vomiting Musculoskeletal Musculoskeletal: Denies joint swelling Neurologic Neurologic: Denies weakness Exam Const General: no acute distress Orientation: alert HENNH Head: normal to inspection Ears: external ears normal General nose exam: external nose normal Mouth: moist mucous membranes Eyes General: appearance normal, both eyes and all related structures Neck Neck: normal visual inspection Resp Auscultation: diminished lung sounds Cardio Jugular venous pressure: no JVD Rate: regular rate Heart Sounds: no murmurs Skin General skin exam: no rashes or lesions noted Neuro General: patient alert and patient oriented x3 Extrem General: normal to inspection Psych Mental Status: mental status grossly normal Course Vital Signs Vital signs: Vital Signs Pulse 85 08/30/23 13:23 Respiratory Rate 20 08/30/23 13:23 Blood Pressure 114/80 08/30/23 13:23 Pulse Oximetry 98 08/30/23 13:23 Pulse 82 08/30/23 13:32 Pulse 77 08/30/23 13:40 Respiratory Rate 12 08/30/23 13:40 Respiratory Effort Normal 08/30/23 13:33 Respiratory Depth Normal 08/30/23 13:33 Respiratory Pattern Normal 08/30/23 13:33 Blood Pressure 114/80 08/30/23 13:32 Blood Pressure Mean 89 08/30/23 13:32 Blood Pressure Position Sitting 08/30/23 13:23 Pulse Oximetry 98 08/30/23 13:23 Oxygen Delivery Method Trach Collar 08/30/23 13:23 Oxygen Flow Rate 2 08/30/23 13:23 Lab/Test Results Lab/Test Results: Laboratory Tests Range/Units 08/30/23 13:38 COVID-19 Source Nasal/Nares Medical Decision Making 78-year-old male with multiple medical problems including hyperlipidemia, coronary artery disease, hypertension, laryngeal cancer status post laryngectomy, tracheostomy on home O2, G-tube dependence, COPD and interstitial lung disease who comes in with EMS with complaints of shortness of breath earlier this morning. Recent non-ST elevation AR that was treated medically at [facility], no catheterization was done CT of his head showing a subdural hematoma he was discharged on the states he is been feeling okay since then this morning around 4 AM felt some shortness of breath which resolved, called EMS this afternoon for evaluation, denies any symptoms now. Clear why he waited so long to call for an ambulance. He denies any fevers chills has had a dry cough. He is alert and oriented on arrival, stable vital signs and no visible evidence of respiratory distress. Diminished breath sounds at the bases otherwise no concerning findings on lung exam no wheezing, on bedside ultrasound has appears to have normal-appearing EF but does appear to have bilateral B-lines in both lungs. Will obtain troponin, CBC, CMP, proBNP and x-ray and treat with a dose of Lasix and reassess. Patient asymptomatic, stable vitals, no increased oxygen demand from baseline which is 2 L and is at 98%. Troponin negative and labs show no acute findings or changes from baseline. Pending x-ray read from radiology, discussed results with patient and just having an observation admission for CHF versus discharge on furosemide and follow-up primary care provider. Patient has decision-making capacity and given his recent hospitalization he would prefer to go home and feels well enough to try to go home, which I feel is reasonable given thus far reassuring workup other than the CHF which is not unexpected after he just had an NSTEMI. He did have an echo at [facility] during his hospitalization his EF was 60-65. His main symptom started 4 in the morning which is well over 3 hours so do not feel delta troponin indicated Patient stable still wants to go home which I feel is reasonable. X-ray shows chronic consistent interstitial findings, and pleural effusion. He has not had any fevers, has no leukocytosis, and states his cough is at baseline so doubt acute bacterial pneumonia do not feel antibiotics are indicated. Will have him follow-up with his primary care provider and return precautions given Differential Diagnosis Differential Diagnosis: CHF, COPD, pneumonia Medical Records Medical records reviewed: Yes I reviewed the patient's medical records. Imaging Data Radiologic Study: Attestation: I personally reviewed and interpreted this imaging study as follows: Imaging: X-Ray My impression: Mild CHF Radiologist's impression: Patient Name: Chan Nevarez Unit #: [id number] Loc: ER Ordering Provider: Kalyan Barreto M.D. Status: [facility] ER Primary Care Provider: Nazia Chan Date of Exam: 08/30/23 Sex: M Admission Date: 08/30/23 : 1945 Age: 78 Exam(s) XR PORTABLE CHEST AP EXAM: XR PORTABLE CHEST AP CLINICAL HISTORY: shortness of breath. TECHNIQUE: 2D digital imaging was performed. COMPARISON: CR XR ABD FLAT UPRIGHT PA CHEST from 06/18/2023 FINDINGS: Single AP portable view. Mild cardiomegaly again noted. Tortuous descending thoracic aorta is again noted which is again noted to contain an aortic stent graft which commences in the mid descending thoracic aorta and extends to below the level the field of view of this study and is also associated with a right renal artery ostial stent. Prior studies reveal the distal anastomoses of the stent graft to be in the iliac arteries. Bilateral symmetrical interstitial disease is again noted in the lung lujan. No obvious confluent infiltrates. Slight blunting of left costophrenic angle is noted which may indicate a small amount left pleural fluid. Density over the lower left lateral lung field is probably artifact related to adjacent wires. IMPRESSION: Chronic interstitial disease. Aortic stent graft extending from the midthoracic aorta to the iliac arteries in the pelvis. Probable small left pleural effusion.Recommend nonportable PA and lateral views when clinically possible. Lab Data Lab results reviewed: Yes I reviewed the patient's lab results. ECG Data Attestation: I personally reviewed and interpreted this ECG (s) as follows: Prior ECG tracings: available for review Interpretation: Sinus rate of 85 ID [id number] no STEMI right bundle branch block Quality:SDOH Health Related Social Needs: No Data to Display PFSH All Active Problems (Updated 08/30/23 @ 14:30 by Kalyan Barreto MD) Shortness of breath (Acute) Ground glass opacity present on imaging of lung (Acute) Subdural hematoma (Acute) Pulmonary edema (Acute) Fracture of thumb, left, closed (Acute) Acute non-ST elevation myocardial infarction (NSTEMI) (Acute) Arm pain (Acute) Palliative care patient (Acute) Hemoptysis (Acute) Caregiver stress (Acute) Nausea & vomiting (Acute) Regurgitation of food (Acute) Pulmonary embolism (Chronic) Uses feeding tube (Acute) Gross hematuria (Acute) Ambulatory dysfunction (Acute) Leukocytosis (leucocytosis) (Acute) UTI (urinary tract infection) (Acute) Multiple subsegmental pulmonary emboli without acute cor pulmonale (Acute) C1 cervical fracture (Acute) Gastrostomy tube dysfunction (Acute) Advance care planning (Acute) Encounter for hospice care discussion (Acute) Unintentional weight loss of 10% body weight within 6 months (Acute) Dysuria (Acute) Malfunctioning jejunostomy tube (Acute) Need for follow-up by social work associate (Acute) Dysphagia (Acute) Weakness (Acute) Impaired instrumental activities of daily living (Acute) Plantar fascial fibromatosis (Acute) Feeding tube dysfunction (Acute) Sensorineural hearing loss (SNHL) of both ears (Acute) Otalgia of right ear (Acute) Neck pain on right side (Acute) Neck pain on right side (Acute) Full code status (Acute) Need for home health care (Acute) MRSA pneumonia (Acute) pt likely colonized Occlusion of right vertebral artery (Acute) Hypoxemia (Acute) Complication of feeding tube (Acute) Peripheral neuropathy (Acute 02/21/15) PAOD (peripheral arterial occlusive disease) (Acute) COPD (chronic obstructive pulmonary disease) (Chronic) G tube feedings (Acute) 20F 3.0cm 11/30/22. Routine change every 4 months. 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 Hypertension Tobacco use COPD (chronic obstructive pulmonary disease) Post herpetic neuralgia Hypothyroidism Hyperlipemia Depression Anxiety Anemia Conjunctivitis, chronic Surgical History S/P AAA (abdominal aortic aneurysm) repair Status post laryngectomy History of esophagogastroduodenoscopy (EGD) (~08/10/19) Daron Casper APRN @ [facility]: hiatal hernia, GERD, Reyes's esophagitis, neuromuscular dysfunction History of laryngectomy Status post cardiac catheterization Status post cataract extraction and insertion of intraocular lens of right eye (07/12/18) History of tarsorrhaphy Status post cataract extraction and insertion of intraocular lens of left eye (04/30/12) 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) Sin-mullins button placed by Dr Elia Mcdonald, [facility] PROCEDURES RT/LEFT HEART CARD CATH COMPLETE LARYNGECTOMY Esophagoplasty EGD - MAC (07/06/17) Colonoscopy - MAC (12/22/16) History of radical laryngectomy Family History Nephew Throat cancer Maternal Cousin Cancer Social History Smoking/Tobacco Use Status: Former Tobacco Use Quit Date: 04/23/13 Tobacco: How many years used: 20 Smoking risk assessment performed?: Yes Alcohol Intake: never Drug use: Never Substance use type: does not use Housing: apartment Current gender identity: male Do you feel safe at home: Yes Do you feel safe in your relationship?: Yes POCUS Exam (ED) Limited Cardiac Exam DATE OF EXAM: 08/30/23 TIME OF EXAM: 13:57 PROVIDER THAT PERFORMED THE STUDY: Kalyan Barreto IS THIS A REPEAT EXAM DURING THIS ENCOUNTER: no REASON FOR EXAM: Dyspnea VISUALIZED STRUCTURES: Left ventricle and Right ventricle VIEW OBTAINED: Parasternal long-axis PERTINENT FINDINGS/IMPRESSION: No LV dysfunction Exam complete
[2023-08-30 13:52] LABS: Abs Immature Grans 0.03 10^3/uL (0.0-0.06); Absolute Eosinophil Count 0.34 10^3/uL (0.0-0.7); Absolute Lymphocyte Count 0.79 10^3/uL (1.2-3.4); Absolute Monocyte Count 0.74 10^3/uL (0.1-0.8); Absolute Neutrophil Count 4.62 10^3/uL (1.2-6.7); Basophils % 1.5; Eosinophils % 5.1; HCT 29.6 % (40.0-50.0); HGB 9.1 g/dL (13.5-17.5); Immature Grans % 0.5; Lymphocytes % 11.9; MCHC 30.7 % (32.0-36.0); MCV 98 fL (80-95); MPV 9.2 fL (8.0-11.0); Monocytes % 11.2; Neutrophils % 69.8; Platelet Count 318 10^3/uL (130-400); RBC 3.03 10^6/uL (4.36-5.78); RDW 13.5 % (11.8-14.1); RDW-SD 48.9 fL; WBC 6.62 10^3/uL (4.4-10.8)
[2023-08-30 14:06] LABS: PTT Activated 25.1 sec (23.6-32.8); Prothrombin Time 10.4 sec (9.1-11.1)
[2023-08-30 14:15] LABS: ALT 37 U/L (16-63); AST 33 U/L (15-37); Albumin 3.1 g/dL (3.4-5.0); Alkaline Phosphatase 143 U/L (46-116); Anion Gap 8.4 mmol/L (3-11); BUN 24 mg/dL (7-18); Bilirubin, Total 0.2 mg/dL (0.2-1.0); CO2 29.6 mmol/L (21.0-32.0); CREATININE 0.9 mg/dL (0.70-1.30); Calcium 8.4 mg/dL (8.5-10.1); Chloride 102 mmol/L (98-107); Estimated GFR 87.96 (mL/min/1.73m2); Glucose 80 mg/dL (74-106); Magnesium 2.3 mg/dL (1.8-2.4); NT-proBNP 3273 pg/mL (<300); Potassium 3.4 mmol/L (3.5-5.1); Sodium 140 mmol/L (136-145); Total Protein 6.9 g/dL (6.4-8.2); Troponin I 56 ng/L (< or =60)
[2023-08-30 14:16] LABS: COVID-19 PCR Negative (Negative)
[2023-08-30] MEDS: Furosemide 40 MG/4 ML VIAL IVP (14:20)
--- NOTE | 2023-08-30 14:42 | DI.VRAD_ITS ---
PROCEDURE INFORMATION: Exam: XR Chest Exam date and time: 08/30/2023 2:12 PM Age: 78 years old Clinical indication: Shortness of breath TECHNIQUE: Imaging protocol: Radiologic exam of the chest. Views: 1 view. COMPARISON: XR CHEST 2V PA LATERAL 08/16/2023 6:27 PM FINDINGS: Lungs: Chronic interstitial thickening of the lungs, more pronounced in the lung bases. Left lower lung zone focal consolidation. Pleural spaces: Small left pleural effusion. Heart/Mediastinum: Unremarkable. No cardiomegaly. Vasculature: Stent graft of the tortuous descending aorta. Aortic arch calcifications. Bones/joints: Mild degenerative disease bilateral acromioclavicular and glenohumeral joints. Other findings: Rotated radiograph. IMPRESSION: 1. Chronic interstitial changes of both lungs. 2. Small left pleural effusion. 3. Left lower lung zone focal consolidation. Dictated and Authenticated by: Ethan German MD. Ordering:ROSAMARIA Biggs MD
== END 2023-08-30 15:20 | disposition home or self-care (01) ==
PROVIDERS: Emergency Provider Emergency Medicine; PCP Physician Assistant Medical
DX: R06.02 Shortness of breath (principal); J84.9 Interstitial pulmonary disease, unspecified; J44.9 Chronic obstructive pulmonary disease, unspecified; I25.10 Atherosclerotic heart disease of native coronary artery without angina pectoris; I25.2 Old myocardial infarction; I10 Essential (primary) hypertension; E78.5 Hyperlipidemia, unspecified; Z11.52 Encounter for screening for COVID-19; Z79.82 Long term (current) use of aspirin; Z79.899 Other long term (current) drug therapy; Z85.21 Personal history of malignant neoplasm of larynx; Z93.0 Tracheostomy status; Z93.1 Gastrostomy status; Z99.81 Dependence on supplemental oxygen
CPT/HCPCS: 80053; 87635; 93005; 93308; 96374; 99285; 71045; 83735; 83880; 84484; 85025; 85610; 85730; 93010; 99284; J1940

== ENCOUNTER → 2023-09-02 14:55 | Outpatient (BNVA) | payer MEDICARE, MEDICAID, SELFPAY | PROVIDERS: PCP Physician Assistant Medical; Visit Provider Nurse Practitioner Gerontology | DX: R31.0 Gross hematuria (principal); N40.1 Benign prostatic hyperplasia with lower urinary tract symptoms; N13.8 Other obstructive and reflux uropathy | CPT/HCPCS: 51798; 99213 ==

== ENCOUNTER 2023-09-09 11:43 | Emergency (ER) | payer MEDICARE, MEDICAID, SELFPAY ==
[2023-09-09] VITALS (12 sets, daily range): BP systolic 190–215; BP diastolic 69–76; PULSE 87–94; RESP 19–37; TEMP 36.6–36.8; O2SAT 90–93
--- NOTE | 2023-09-09 11:00 | DI.RAD_ITS ---
Exam(s) XR SHOULDER RT COMPLETE 2+V EXAM: XR SHOULDER RT COMPLETE 2+V CLINICAL HISTORY: Fall, Bruising. TECHNIQUE: 2D digital imaging was performed. Five views. COMPARISON: CR,XR XR CHEST 2V PA LATERAL from 08/16/2023 CR,XR XR PORTABLE CHEST AP from 08/30/2023 FINDINGS: BONES: Comminuted mildly displaced fracture noted of the distal clavicle. No additional fractures ar e identified. No bony destructive lesion is seen. JOINTS: No dislocation present.The AC joint does appear mildly widened compared to prior chest x-rays . The coracoclavicular distance appears normal. SOFT TISSUE: Normal. IMPRESSION: Comminuted distal clavicular fracture. DATA REPOSITORY: RADIATION DOSE DELIVERED:
--- NOTE | 2023-09-09 11:13 | ED.GENADUL_ITS ---
Discharge Plan Disposition Patient Disposition: Home Condition: Stable Discharge Details Clinical Impression: Frequent falls, Closed fracture of right clavicle Primary Care Provider: Nazia Chan ED Provider: Elysia Griffin Casper Meds and New Rx's Prescriptions: No Action ropinirole 1 mg tablet 1 mg PO BID aspirin [Adult Aspirin Regimen] 81 mg tablet,delayed release (DR/EC) 81 mg PO DAILY acetaminophen [Tylenol Extra Strength] 500 mg tablet 1,000 mg PO BID PRN omeprazole 20 mg capsule,delayed release(DR/EC) 20 mg feeding tube BID Qty: 90 4RF acetylcysteine 100 mg/mL (10 %) solution 4 ml inhalation BID losartan 25 mg tablet 25 mg PO DAILY metoprolol succinate 25 mg tablet extended release 24 hr 25 mg PO DAILY levothyroxine 88 mcg capsule 88 mcg PO DAILY rosuvastatin 40 mg tablet 40 mg feeding tube HS Qty: 90 4RF ipratropium-albuterol 0.5 mg-3 mg(2.5 mg base)/3 mL solution for nebulization 3 ml IN QID PRN (Reason: shortness of breath or wheezing) Qty: 90 4RF Rx Instructions: increased dose/use treatment 4 times/day as needed NOT SENT polyethylene glycol 3350 [Miralax] 17 gram/dose powder 17 g PO DAILY PRN (Reason: constipation) Rx Instructions: 06/19/22 instructed by PCP to take 1/2 cap daily, may reduce to half cap three times per week if daily is too much Vancomycin 250 mg NEB BID 28 Days Qty: 280 12RF Hold Instructions: takes every other 28 days Rx Instructions: 250mg vancomycin in 5 cc of sterile water for nebulization To be given every other month for 28 consecutive days sulfamethoxazole-trimethoprim 200-40 mg/5 mL suspension 5 ml PO DAILY 28 Days Qty: 473 9RF Rx Instructions: Take daily for 4 weeks, then off for 4 weeks, etc nystatin 100,000 unit/gram powder 1 applic topical BID Qty: 60 12RF finasteride 5 mg tablet 5 mg PO DAILY Qty: 90 3RF tamsulosin [Flomax] 0.4 mg capsule 0.4 mg PO DAILY Qty: 90 3RF sertraline 50 mg tablet 50 mg PO DAILY Qty: 30 2RF Rx Instructions: decreased by PCP on 06/19/22 acetylcysteine [NAC] 600 mg capsule 600 mg PO BID Qty: 60 12RF gabapentin 300 mg capsule 300 mg PO TID Qty: 270 3RF melatonin 3 MG tablet 6 mg PO HS furosemide 20 mg tablet 20 mg PO DAILY Qty: 30 0RF Align 4 mg Capsule 4 mg PO QPM ferrous sulfate [FeroSul] 325 mg (65 mg iron) tablet 325 mg PO DAILY Patient Comments: TAKE 1 TABLET VIA FEEDING TUBE ONCE DAILY Discharge Instructions Instructions: Clavicle Fracture (ED), Ice Pack Application (ED) Additional Instructions: Head CT was ok, nothing acute or changed from previous. X-ray shows a right clavicle fracture. Wear the sling as needed for comfort when up and walking about. When sitting or laying down you do not need to wear it. Continue the gabapentin as previously prescribed. Please take Tylenol or Ibuprofen with food every 4-6 hours as needed for pain and swelling. Referrals: Nazia Chan [Primary Care Provider] - 5 days Jonah Wlilis MD [ [facility] STAFF PHYSICIAN] - 1 week Discharge Data Discharge Date/Time-TO BE ENTERED AT DEPARTURE: 09/09/23 14:38 HPI General Mode of arrival: EMS . Date/Time Provider Initiated Documentation: 09/09/23 11:44 . Limitations to Documentation: language barrier (Tracheostomy) . Information obtained by: EMS, RN notes reviewed and old records reviewed . HPI Narrative: 78 year old male with extensive history of feeding tube, laryngeal cancer, with tracheostomy, CAD, recent NSTEMI, Restless leg syndrome Depression, history of alcoholisim, COPD, S/P AAA repair who presents with mechanical fall while at home today. Report that patient rolled out of bed landing on his right shoulder. C/O Right shoulder pain, and ecchymosis. Clavicles appears to be nondeformed at this time. He does have bruising noted to his right shoulder. Alert and oriented, denies any head injury no neck or back pain. Related Data Home Medications Medication Instructions Recorded Confirmed omeprazole 20 mg capsule,delayed 20 mg feeding tube BID #90 caps 10/05/19 09/09/23 release melatonin 3 mg tablet 6 mg PO HS 10/29/19 09/09/23 rosuvastatin 40 mg tablet 40 mg feeding tube HS #90 tabs 12/14/19 09/09/23 acetylcysteine 100 mg/mL (10 %) 4 ml inhalation BID 07/05/20 09/09/23 solution ipratropium 0.5 mg-albuterol 3 mg 3 ml IN QID PRN shortness of 07/30/20 09/09/23 (2.5 mg base)/3 mL nebulization breath or wheezing #90 mL soln Bifidobacterium infantis 4 mg 4 mg PO QPM 08/03/21 09/09/23 capsule (Align) ferrous sulfate 325 mg (65 mg 325 mg PO DAILY 08/05/21 09/09/23 iron) tablet (FeroSul) aspirin 81 mg tablet,delayed 81 mg PO DAILY 11/25/21 09/09/23 release (Adult Aspirin Regimen) ropinirole 1 mg tablet 1 mg PO BID 01/07/22 09/09/23 acetaminophen 500 mg tablet 1,000 mg PO BID PRN 03/05/22 09/09/23 (Tylenol Extra Strength) polyethylene glycol 3350 17 17 g PO DAILY PRN constipation 06/19/22 09/09/23 gram/dose oral powder (Miralax) Vancomycin 250 mg NEB BID 28 days #280 mL 09/29/22 09/09/23 sulfamethoxazole 200 5 ml PO DAILY 28 days #473 mL 12/11/22 09/09/23 mg-trimethoprim 40 mg/5 mL oral suspension nystatin 100,000 unit/gram topical 1 applic topical BID #60 grams 02/19/23 09/09/23 powder finasteride 5 mg tablet 5 mg PO DAILY #90 tabs 04/16/23 09/09/23 tamsulosin 0.4 mg capsule (Flomax) 0.4 mg PO DAILY #90 caps 04/16/23 09/09/23 sertraline 50 mg tablet 50 mg PO DAILY #30 tabs 07/20/23 09/09/23 acetylcysteine 600 mg capsule (NAC) 600 mg PO BID #60 caps 07/28/23 09/09/23 furosemide 20 mg tablet 20 mg PO DAILY #30 tabs 08/30/23 09/09/23 levothyroxine 88 mcg capsule 88 mcg PO DAILY 09/02/23 09/09/23 losartan 25 mg tablet 25 mg PO DAILY 09/02/23 09/09/23 metoprolol succinate 25 mg 25 mg PO DAILY 03/20/24 03/27/24 tablet,extended release 24 hr gabapentin 300 mg capsule 300 mg PO TID #270 caps 09/09/23 09/09/23 Previous Rx's Medication Instructions Recorded omeprazole 20 mg capsule,delayed 20 mg feeding tube BID #90 caps 10/05/19 release rosuvastatin 40 mg tablet 40 mg feeding tube HS #90 tabs 12/14/19 ipratropium 0.5 mg-albuterol 3 mg 3 ml IN QID PRN shortness of 07/30/20 (2.5 mg base)/3 mL nebulization breath or wheezing #90 mL soln Vancomycin 250 mg NEB BID 28 days #280 mL 09/29/22 sulfamethoxazole 200 5 ml PO DAILY 28 days #473 mL 12/11/22 mg-trimethoprim 40 mg/5 mL oral suspension nystatin 100,000 unit/gram topical 1 applic topical BID #60 grams 02/19/23 powder finasteride 5 mg tablet 5 mg PO DAILY #90 tabs 04/16/23 tamsulosin 0.4 mg capsule (Flomax) 0.4 mg PO DAILY #90 caps 04/16/23 sertraline 50 mg tablet 50 mg PO DAILY #30 tabs 07/20/23 acetylcysteine 600 mg capsule (NAC) 600 mg PO BID #60 caps 07/28/23 furosemide 20 mg tablet 20 mg PO DAILY #30 tabs 08/30/23 gabapentin 300 mg capsule 300 mg PO TID #270 caps 09/09/23 Allergies Allergy/AdvReac Type Severity Reaction Status Date / Time pollen extracts Allergy Mild Wheezing Verified 09/09/23 11:15 Tetracyclines Allergy Unknown SKIN RASH Verified 09/09/23 11:15 General CHER: 3 Review of Systems Musculoskeletal Musculoskeletal: Reports as per HPI, Reports arthralgias, Reports joint swelling and Reports limited range of motion Exam Const General: frail appearing Nutritional Appearance: cachectic Orientation: alert and awake Limitations: physical limitations Chest Chest: normal inspection of the chest and normal palpation of entire chest wall Resp Effort & Inspection: other (Congested, tachypnea, does have a trach with blow-by oxygen.) Auscultation: rhonchi Cardio Rate: regular rate Extrem Right upper extremity: shoulder/upper arm Details: swelling and ecchymosis shoulder anterolateral Details: single Medical Decision Making 78 year old male with extensive history of feeding tube, laryngeal cancer, with tracheostomy, CAD, recent NSTEMI, Restless leg syndrome Depression, history of alcoholisim, COPD, S/P AAA repair who presents with mechanical fall while at home today. Report that patient rolled out of bed landing on his right shoulder. C/O Right shoulder pain, and ecchymosis. Clavicles appears to be nondeformed at this time. He does have bruising noted to his right shoulder. Alert and oriented, denies any head injury no neck or back pain. X-ray right shoulder ordered. Patient has some bruising also noted to his right anterior knee. O2 sat is borderline decreases down to 87% on room air and blow-by. Per RN report patient possibly had a seizure type activity and fell. Labs ordered including EKG troponin IV being placed at this time. Will order CT head. CT shows nothing acute stable appearing small left-sided subdural hematoma. No acute intracranial process. Shoulder x-ray does show a distal clavicle fracture. Discussed case with Dr. Willis who is on for orthopedics, He agrees with sling and follow up in clinic. Patient and caregiver informed and patienttransported homewith EMS per caregiver request for assistance getting up the stairs. This text was generated using [employer] dictation system, please disregard any oddities of phrase or misspellings. Imaging Data Radiologic Study: Imaging: CT Scan Radiologist's impression: CT HEAD WO EXAM: CT HEAD WO CLINICAL HISTORY: Fall. TECHNIQUE: Imaging Protocol: Axial computed tomography images with coronal and sagittal reformatted images were created and reviewed COMPARISON: CT CT HEAD WO from 08/17/2023 FINDINGS: Ventricles and Extra axial spaces: Normal in size and morphology for the patient's age. Hemorrhage: Stable size and appearance of old left sided subdural hematoma. No evidence of acute hemorrhage. Cerebral parenchyma: No evidence of acute infarct or mass. Atrophy. White matter changes of small vessel disease. Midline shift: None. Brainstem/Cerebellum: Normal. Calvarium: Normal. Visualized Paranasal sinuses:Clear. Mastoids: Clear. Soft Tissues: Unremarkable. ORBITS: Stable appearance of high density material within the left globe. PITUITARY: Not enlarged. IMPRESSION: Stable size and appearance of previously noted small left sided subdural hematoma. No acute intracranial process. Radiologic Study #2: Imaging: X-Ray Radiologist's impression: XR SHOULDER RT COMPLETE 2+V EXAM: XR SHOULDER RT COMPLETE 2+V CLINICAL HISTORY: Fall, Bruising. TECHNIQUE: 2D digital imaging was performed. Five views. COMPARISON: CR,XR XR CHEST 2V PA LATERAL from 08/16/2023 CR,XR XR PORTABLE CHEST AP from 08/30/2023 FINDINGS: BONES: Comminuted mildly displaced fracture noted of the distal clavicle. No additional fractures are identified. No bony destructive lesion is seen. JOINTS: No dislocation present.The AC joint does appear mildly widened compared to prior chest x-rays. The coracoclavicular distance appears normal. SOFT TISSUE: Normal. IMPRESSION: Comminuted distal clavicular fracture. Lab Data Lab results reviewed: Yes I reviewed the patient's lab results. Labs: Laboratory Tests Range/Units 09/09/23 09/09/23 11:45 14:42 WBC (4.4-10.8) 10^3/uL 9.37 RBC (4.36-5.78) 10^6/uL 3.72 L Hgb (13.5-17.5) g/dL 11.1 L Hct (40.0-50.0) % 34.9 L MCV (80-95) fL 94 MCH (27.0-33.0) pg 29.8 MCHC (32.0-36.0) % 31.8 L RDW (11.8-14.1) % 14.0 Plt Count (130-400) 10^3/uL 312 MPV (8.0-11.0) fL 9.4 Immature Gran % 0.3 Neutrophils % 78.3 Lymphocytes % 8.0 Monocytes % 10.4 Eosinophils % 2.0 Basophils % 1.0 Nucleated RBC % (0.0-0.3) % 0.0 Absolute Neutrophils (1.2-6.7) 10^3/uL 7.34 H Absolute Lymphocytes (1.2-3.4) 10^3/uL 0.75 L Absolute Monocytes (0.1-0.8) 10^3/uL 0.97 H Absolute Eosinophils (0.0-0.7) 10^3/uL 0.19 Absolute Basophils (0.0-0.2) 10^3/uL 0.09 Sodium (136-145) mmol/L 137 Potassium (3.5-5.1) mmol/L 3.8 Chloride (98-107) mmol/L 100 Carbon Dioxide (21.0-32.0) mmol/L 28.3 Anion Gap (3-11) mmol/L 8.7 BUN (7-18) mg/dL 21 H Creatinine (0.70-1.30) mg/dL 0.7 Est GFR (CKD-EPI 2020) (mL/min/1.73m2) 94.90 Glucose (74-106) mg/dL 112 H Calcium (8.5-10.1) mg/dL 9.0 Total Bilirubin (0.2-1.0) mg/dL 0.4 AST (15-37) U/L 44 H ALT (16-63) U/L 33 Alkaline Phosphatase (46-116) U/L 114 Troponin I (< or =60) ng/L < 50 Cancelled Total Protein (6.4-8.2) g/dL 7.2 Albumin (3.4-5.0) g/dL 3.4 Quality:SDOH Health Related Social Needs: No Data to Display Critical Care Time Critical Care Time Critical Care Time: Yes Total Critical Care Time: 35 Attestation: I spent greater than 35 minutes addressing this patient's acute life threatening illness. This time was spent engaged in actions directly related to the patient's care. Failure to initiate these interventions would have likely resulted in clinically significant or life threatening deterioration in the pa brodie condition. PFSH All Active Problems (Updated 09/09/23 @ 13:39 by Elysia Griffin NP) Closed fracture of right clavicle (Acute) Frequent falls (Acute) Shortness of breath (Acute) Ground glass opacity present on imaging of lung (Acute) Subdural hematoma (Acute) Pulmonary edema (Acute) Fracture of thumb, left, closed (Acute) Acute non-ST elevation myocardial infarction (NSTEMI) (Acute) Arm pain (Acute) Palliative care patient (Acute) Hemoptysis (Acute) Caregiver stress (Acute) Nausea & vomiting (Acute) Regurgitation of food (Acute) Pulmonary embolism (Chronic) Uses feeding tube (Acute) Gross hematuria (Acute) Ambulatory dysfunction (Acute) Leukocytosis (leucocytosis) (Acute) UTI (urinary tract infection) (Acute) Multiple subsegmental pulmonary emboli without acute cor pulmonale (Acute) C1 cervical fracture (Acute) Gastrostomy tube dysfunction (Acute) Advance care planning (Acute) Encounter for hospice care discussion (Acute) Unintentional weight loss of 10% body weight within 6 months (Acute) Dysuria (Acute) Malfunctioning jejunostomy tube (Acute) Need for follow-up by social director (Acute) Dysphagia (Acute) Weakness (Acute) Impaired instrumental activities of daily living (Acute) Plantar fascial fibromatosis (Acute) Feeding tube dysfunction (Acute) Sensorineural hearing loss (SNHL) of both ears (Acute) Otalgia of right ear (Acute) Neck pain on right side (Acute) Neck pain on right side (Acute) Full code status (Acute) Need for home health care (Acute) MRSA pneumonia (Acute) pt likely colonized Occlusion of right vertebral artery (Acute) Hypoxemia (Acute) Complication of feeding tube (Acute) Peripheral neuropathy (Acute 02/21/15) PAOD (peripheral arterial occlusive disease) (Acute) COPD (chronic obstructive pulmonary disease) (Chronic) G tube feedings (Acute) 20F 3.0cm 11/30/22. Routine change every 4 months. 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 Hypertension Tobacco use COPD (chronic obstructive pulmonary disease) Post herpetic neuralgia Hypothyroidism Hyperlipemia Depression Anxiety Anemia Conjunctivitis, chronic Surgical History S/P AAA (abdominal aortic aneurysm) repair Status post laryngectomy History of esophagogastroduodenoscopy (EGD) (~08/10/19) Daron Casper APRN @ [facility] [place]: hiatal hernia, GERD, Reyes's esophagitis, neuromuscular dysfunction History of laryngectomy Status post cardiac catheterization Status post cataract extraction and insertion of intraocular lens of right eye (07/12/18) History of tarsorrhaphy Status post cataract extraction and insertion of intraocular lens of left eye (04/30/12) 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) Sin-mullins button placed by Dr Elia Mcdonald, [facility] PROCEDURES RT/LEFT HEART CARD CATH COMPLETE LARYNGECTOMY Esophagoplasty EGD - MAC (07/06/17) Colonoscopy - MAC (12/22/16) History of radical laryngectomy Family History Nephew Throat cancer Maternal Cousin Cancer Social History Smoking/Tobacco Use Status: Former Tobacco Use Quit Date: 04/23/13 Tobacco: How many years used: 20 Smoking risk assessment performed?: Yes Alcohol Intake: never Drug use: Never Substance use type: does not use Housing: apartment Current gender identity: male Do you feel safe at home: Yes Do you feel safe in your relationship?: Yes
--- NOTE | 2023-09-09 11:30 | RT.EKG_ITS ---
APPROVED REPORT Exam: Resting ECG Reason for Exam: Fall Patient Location: E HR:93 bpm ECG Measurements Heart Rate 93 AXIS WY 220 P 73 QRSd 151 QRS 98 QT 393 T -22 QTc 488 Conclusion Sinus rhythm...normal P axis, V-rate 60- 99 Prolonged WY interval...WY >215, V-rate 91-120 Probable left atrial enlargement...P >50mS, <-0.10mV V1 RBBB and LPFB...QRSd >120mS, axis(90,210) ST depr, consider ischemia, anterolateral lds...ST <-0.10mV, I aVL V2-V6
[2023-09-09] MEDS: fentaNYL 100 MCG/2 ML VIAL 12.5 MCG IM (11:35)
--- NOTE | 2023-09-09 11:45 | DI.CT_ITS ---
Exam(s) CT HEAD WO EXAM: CT HEAD WO CLINICAL HISTORY: Fall. TECHNIQUE: Imaging Protocol: Axial computed tomography images with coronal and sagittal reformatted images were created and reviewed COMPARISON: CT CT HEAD WO from 08/17/2023 FINDINGS: Ventricles and Extra axial spaces: Normal in size and morphology for the patient's age. Hemorrhage: Stable size and appearance of old left sided subdural hematoma. No evidence of acute hem orrhage. Cerebral parenchyma: No evidence of acute infarct or mass. Atrophy. White matter changes of small ve ssel disease. Midline shift: None. Brainstem/Cerebellum: Normal. Calvarium: Normal. Visualized Paranasal sinuses:Clear. Mastoids: Clear. Soft Tissues: Unremarkable. ORBITS: Stable appearance of high density material within the left globe. PITUITARY: Not enlarged. IMPRESSION: Stable size and appearance of previously noted small left sided subdural hematoma. No acute intracra nial process. RADIATION DOSE DELIVERED: Total DLP DATA REPOSITORY: All CT scans at this facility are submitted to the National Radiology Data Registry (NRDR) Dose Index Registry (DIR) with the [employer] [place] [employer] (ACR). RADIATION OPTIMIZATION: All CT scans at this facility use at least one of these dose optimization te chniques: automated exposure control; mA and/or kV adjustment per patient size (includes targeted exa ms where dose is matched to clinical indication); or iterative reconstruction.
[2023-09-09 11:58] LABS: Abs Immature Grans 0.03 10^3/uL (0.0-0.06); Absolute Basophil Count 0.09 10^3/uL (0.0-0.2); Absolute Eosinophil Count 0.19 10^3/uL (0.0-0.7); Absolute Lymphocyte Count 0.75 10^3/uL (1.2-3.4); Absolute Monocyte Count 0.97 10^3/uL (0.1-0.8); Absolute Neutrophil Count 7.34 10^3/uL (1.2-6.7); HCT 34.9 % (40.0-50.0); HGB 11.1 g/dL (13.5-17.5); Immature Grans % 0.3; MCH 29.8 pg (27.0-33.0); MCHC 31.8 % (32.0-36.0); MCV 94 fL (80-95); MPV 9.4 fL (8.0-11.0); Monocytes % 10.4; Neutrophils % 78.3; Platelet Count 312 10^3/uL (130-400); RBC 3.72 10^6/uL (4.36-5.78); RDW-SD 48.6 fL; WBC 9.37 10^3/uL (4.4-10.8)
[2023-09-09 12:31] LABS: ALT 33 U/L (16-63); AST 44 U/L (15-37); Albumin 3.4 g/dL (3.4-5.0); Alkaline Phosphatase 114 U/L (46-116); Anion Gap 8.7 mmol/L (3-11); BUN 21 mg/dL (7-18); Bilirubin, Total 0.4 mg/dL (0.2-1.0); CO2 28.3 mmol/L (21.0-32.0); CREATININE 0.7 mg/dL (0.70-1.30); Chloride 100 mmol/L (98-107); Glucose 112 mg/dL (74-106); Potassium 3.8 mmol/L (3.5-5.1); Sodium 137 mmol/L (136-145); Total Protein 7.2 g/dL (6.4-8.2); Troponin I < 50 ng/L (< or =60)
== END 2023-09-09 14:38 | disposition home or self-care (01) ==
PROVIDERS: Emergency Provider Registered Nurse Emergency; PCP Physician Assistant Medical
DX: S42.021A Displaced fracture of shaft of right clavicle, initial encounter for closed fracture (principal); I25.10 Atherosclerotic heart disease of native coronary artery without angina pectoris; I25.2 Old myocardial infarction; I10 Essential (primary) hypertension; E78.5 Hyperlipidemia, unspecified; J44.9 Chronic obstructive pulmonary disease, unspecified; Z93.1 Gastrostomy status; Z93.0 Tracheostomy status; Z85.21 Personal history of malignant neoplasm of larynx; W06.XXXA Fall from bed, initial encounter; Y93.89 Activity, other specified; Y92.013 Bedroom of single-family (private) house as the place of occurrence of the external cause
CPT/HCPCS: 80053; 93005; 99285; 70450; 73030; 84484; 85025; 93010; 99284; J3010

== ENCOUNTER 2023-09-22 14:09 | Outpatient (CLI) | payer MEDICARE, MEDICAID, SELFPAY ==
--- NOTE | 2023-09-22 14:45 | RT.EKG_ITS ---
APPROVED REPORT Exam: Resting ECG Reason for Exam: baseline Patient Location: O HR:76 bpm ECG Measurements Heart Rate 76 AXIS NM 221 P 54 QRSd 156 QRS 53 QT 420 T -5 QTc 473 Conclusion Sinus rhythm...normal P axis, V-rate 50- 99 Ventricular premature complex...V complex w/ short R-R interval Prolonged NM interval...NM >220, V-rate 50- 90 Left atrial enlargement...P, P'>60mS, <-0.15mV V1 Right bundle branch block...QRSd>120, terminal axis(90,270) Baseline wander in lead(s) V1
== END 2023-09-22 14:10 | disposition home or self-care (01) ==
PROVIDERS: PCP Physician Assistant Medical; Referring Provider Physician Assistant Medical; Visit Provider Internal Medicine Cardiovascular Disease
DX: I25.10 Atherosclerotic heart disease of native coronary artery without angina pectoris
CPT/HCPCS: 93010

== ENCOUNTER → 2023-09-22 14:09 | Outpatient (BNVA) | payer MEDICARE, MEDICAID, SELFPAY | PROVIDERS: PCP Physician Assistant Medical; Referring Provider Physician Assistant Medical; Visit Provider Internal Medicine Cardiovascular Disease | DX: I25.10 Atherosclerotic heart disease of native coronary artery without angina pectoris (principal); R55 Syncope and collapse; J43.1 Panlobular emphysema | CPT/HCPCS: 93005; 99214 ==

== ENCOUNTER 2023-09-23 11:49 | Outpatient (CLI) | payer MEDICARE, MEDICAID, SELFPAY ==
--- NOTE | 2023-09-23 10:30 | DI.RAD_ITS ---
Exam(s) XR CLAVICLE RT EXAM: XR CLAVICLE RT CLINICAL HISTORY: F/U FRACTURE. TECHNIQUE: 2D digital imaging was performed. COMPARISON: CR,XR XR PORTABLE CHEST AP from 08/30/2023 CR XR SHOULDER RT COMPLETE 2+V from 09/09/2023 FINDINGS: Two views. Again noted is the recently described acute fracture in the lateral 3rd of the clavicle. However, th ere is now significant displacement the fracture site. The major fragment is displaced superiorly re lative to the smaller lateral fragment. The lateral fragment is not dislocated from the AC joint. IMPRESSION: Further displacement at the fracture site in the lateral 3rd of the right clavicle. DATA REPOSITORY: RADIATION DOSE DELIVERED:
== END 2023-09-23 11:50 | disposition home or self-care (01) ==
LOC: DIORS 11:49
PROVIDERS: PCP Physician Assistant Medical; Visit Provider Student in an Organized Health Care Education/Training Program
DX: S42.031A Displaced fracture of lateral end of right clavicle, initial encounter for closed fracture; W19.XXXA Unspecified fall, initial encounter
CPT/HCPCS: 99213; 73000

== ENCOUNTER 2023-09-28 10:57 | Outpatient (CLI) | payer MEDICARE, MEDICAID, SELFPAY | END 2023-09-28 10:58 | disposition home or self-care (01) | LOC: CARDOPNVT 10:57 | PROVIDERS: PCP Physician Assistant Medical; Visit Provider Internal Medicine Cardiovascular Disease | DX: R55 Syncope and collapse (principal); I25.10 Atherosclerotic heart disease of native coronary artery without angina pectoris | CPT/HCPCS: 93246 ==

== ENCOUNTER 2023-10-13 05:56 | Outpatient (CLI) | payer MEDICARE, MEDICAID, SELFPAY ==
[2023-10-13 15:40] LABS: Abs Immature Grans 0.03 10^3/uL (0.0-0.06); Absolute Basophil Count 0.14 10^3/uL (0.0-0.2); Absolute Eosinophil Count 0.64 10^3/uL (0.0-0.7); Absolute Lymphocyte Count 1.01 10^3/uL (1.2-3.4); Absolute Monocyte Count 0.67 10^3/uL (0.1-0.8); Absolute Neutrophil Count 5.53 10^3/uL (1.2-6.7); Basophils % 1.7; HCT 33.9 % (40.0-50.0); HGB 10.9 g/dL (13.5-17.5); Immature Grans % 0.4; Lymphocytes % 12.6; MCH 30.7 pg (27.0-33.0); MCHC 32.2 % (32.0-36.0); MCV 96 fL (80-95); Monocytes % 8.4; Neutrophils % 68.9; RBC 3.55 10^6/uL (4.36-5.78); RDW 15.3 % (11.8-14.1); RDW-SD 53.9 fL; WBC 8.02 10^3/uL (4.4-10.8)
[2023-10-13 15:50] LABS: Anion Gap 8.5 mmol/L (3-11); BUN 28 mg/dL (7-18); CO2 29.5 mmol/L (21.0-32.0); CREATININE 0.7 mg/dL (0.70-1.30); Calcium 8.7 mg/dL (8.5-10.1); Chloride 101 mmol/L (98-107); Glucose 96 mg/dL (74-106); Potassium 3.8 mmol/L (3.5-5.1); Sodium 139 mmol/L (136-145)
[2023-10-13 16:01] LABS: Diff Comment PLT Morph Reviewed; RBC Morphology Normal
== END 2023-10-13 05:57 | disposition home or self-care (01) ==
LOC: LBO 05:57
PROVIDERS: PCP Physician Assistant Medical; Visit Provider Physician Assistant
DX: I10 Essential (primary) hypertension (principal); D64.9 Anemia, unspecified
CPT/HCPCS: 36415; 80048; 85025

== ENCOUNTER → 2023-10-21 03:10 | Outpatient (CLI) | payer MEDICARE, MEDICAID, SELFPAY ==
--- NOTE | 2023-10-21 07:45 | DI.CT_ITS ---
Exam(s) CT CHEST WO EXAM: CT CHEST WO CLINICAL HISTORY: assess resolution of left basilar density,GROUND GLASS OPACITY,R91.8 TECHNIQUE: Imaging Protocol: Axial computed tomography images with coronal and sagittal reformatted images were created and reviewed CONTRAST MATERIAL: Intravenous: Omnipaque 350 Contrast volume:structured data ml. COMPARISON: CT CT ABD AORTA CTA W RUNOFF from 07/16/[address] THORAX ABD/PEL CTA from 07/01/[address] CHEST PE CTA from 08/03/2021 CR XR PORTABLE CHEST AP from 01/19/2023 CR XR PORTABLE CHEST AP from 04/21/[address] CHEST PE CTA from 04/21/[address] CHEST/ABD/PEL W from 05/26/[address] ABDOMEN PELVIS WO/W from 05/27/2023 CR XR ABD FLAT UPRIGHT PA CHEST from 06/18/2023 CR,XR XR PORTABLE CHEST AP from 08/30/2023 CR XR CLAVICLE RT from 09/23/2023 FINDINGS: Pulmonary parenchyma: No consolidation. No dominant measurable mass. Moderate emphysematous changes. Stable biapical pleural and parenchymal scarring. Fibrotic changes at the lung bases. Stable area of scarring above the left diaphragm.Multiple stable bilateral basilar micro nodules. Tracheobronchial tree: No bronchiectasis or mucous plugging. Mediastinum and Sonali: No dominant adenopathy or fluid collection. Pleura: No effusion. No pneumothorax. Heart: The heart is not dilated. Severe coronary artery calcifications are seen. Aorta: Multiple stents noted in the descending thoracic and abdominal aorta. Severely tortuous. Sev ere atherosclerotic changes ascending and arch.. Upper abdomen: No acute findings.. Bones: Stable severe T12 and moderate L1 compression fractures. Stable mild T7 compression fractur edegenerative changes in the spine. Soft tissues: Unremarkable. IMPRESSION: Stable area of scarring at the left lung base. Stable bibasilar micro nodules. No suspicious mass or infiltrate. Stable appearance of thoracic aorta. RADIATION DOSE DELIVERED: 324.14mGy.cm Total DLP DATA REPOSITORY: All CT scans at this facility are submitted to the National Radiology Data Registry (NRDR) Dose Index Registry (DIR) with the [employer] (ACR). RADIATION OPTIMIZATION: All CT scans at this facility use at least one of these dose optimization te chniques: automated exposure control; mA and/or kV adjustment per patient size (includes targeted exa ms where dose is matched to clinical indication); or iterative reconstruction.
== END ==
PROVIDERS: PCP Physician Assistant Medical; Visit Provider Student in an Organized Health Care Education/Training Program
DX: R91.8 Other nonspecific abnormal finding of lung field (principal)
CPT/HCPCS: 71250

== ENCOUNTER → 2023-10-29 11:16 | Outpatient (BNVA) | payer MEDICARE, MEDICAID, SELFPAY | PROVIDERS: PCP Physician Assistant Medical; Visit Provider Psychiatry & Neurology Neurology | DX: G25.81 Restless legs syndrome (principal); G62.9 Polyneuropathy, unspecified | CPT/HCPCS: 99213 ==

== ENCOUNTER 2023-11-02 08:02 | Outpatient (CLI) | payer MEDICARE, MEDICAID, SELFPAY ==
--- NOTE | 2023-11-02 09:07 | W.CARDEVENT ---
Date of service: 11/02/23 Time of Service: 09:07 Cardiac Event Recorder Referring Provider:: Roxanne Rice Indications:: Syncope Cardiac Event Note: This is a cardiac event monitor. Patient was monitored for 24 days and 20 hours Rhythm throughout was sinus. Average heart rate was 77. Minimum was 57, maximum 103 Atrial and ventricular ectopic beats were noted There was no atrial fibrillation, no high-grade AV block, no pauses greater than 3 seconds Symptoms were reported including multiple episodes of passed out none of which correlated to any dysrhythmia
== END 2023-11-02 08:03 | disposition home or self-care (01) ==
LOC: CARDOPNVT 08:02
PROVIDERS: PCP Physician Assistant Medical; Visit Provider Internal Medicine Cardiovascular Disease
DX: R55 Syncope and collapse (principal)
CPT/HCPCS: 93248

== ENCOUNTER 2023-12-09 11:11 | Outpatient (CLI) | payer MEDICARE, MEDICAID, SELFPAY ==
--- NOTE | 2023-12-09 10:30 | DI.RAD_ITS ---
Exam(s) XR CLAVICLE RT EXAM: XR CLAVICLE RT INDICATION: F/U FRACTURE. COMPARISON: CR XR CLAVICLE RT from 09/23/2023 TECHNIQUE: 2D digital imaging was performed. Two views. FINDINGS: Stable alignment of distal clavicle fracture. Right upper rib fractures again noted. DATA REPOSITORY: RADIATION DOSE DELIVERED:
== END 2023-12-09 11:12 | disposition home or self-care (01) ==
LOC: DIORS 11:11
PROVIDERS: PCP Physician Assistant Medical; Referring Provider Physician Assistant Medical; Visit Provider Student in an Organized Health Care Education/Training Program
DX: S42.001D Fracture of unspecified part of right clavicle, subsequent encounter for fracture with routine healing (principal); X58.XXXD Exposure to other specified factors, subsequent encounter
CPT/HCPCS: 99213; 73000

== ENCOUNTER → 2023-12-29 12:49 | Outpatient (BNVA) | payer MEDICARE, MEDICAID, SELFPAY | PROVIDERS: PCP Physician Assistant Medical; Referring Provider Physician Assistant Medical; Visit Provider Physician Assistant Surgical | DX: J15.212 Pneumonia due to Methicillin resistant Staphylococcus aureus (principal); J43.1 Panlobular emphysema; C32.9 Malignant neoplasm of larynx, unspecified; R13.19 Other dysphagia | CPT/HCPCS: 99215 ==

== ENCOUNTER → 2024-01-04 10:26 | Outpatient (BNVA) | payer MEDICARE, MEDICAID, SELFPAY | PROVIDERS: PCP Physician Assistant Medical; Referring Provider Physician Assistant Medical; Visit Provider Internal Medicine Cardiovascular Disease | DX: R55 Syncope and collapse (principal); I21.4 Non-ST elevation (NSTEMI) myocardial infarction | CPT/HCPCS: 99213 ==

== ENCOUNTER 2024-01-06 13:34 | Emergency (ER) | payer MEDICARE, MEDICAID, SELFPAY ==
[2024-01-06] VITALS (23 sets, daily range): BP systolic 97–188; BP diastolic 42–89; PULSE 63–72; RESP 16; TEMP 36.4–37.2; O2SAT 93–100
--- NOTE | 2024-01-06 15:15 | ED.GENADUL_ITS ---
Discharge Plan Disposition Patient Disposition: Home Discharge Details Clinical Impression: Transient weakness of lower extremity Primary Care Provider: Nazia Chan ED Provider: So Whalen Home Meds and New Rx's Prescriptions: No Action ropinirole 1 mg tablet 1 mg PO BID aspirin [Adult Aspirin Regimen] 81 mg tablet,delayed release (DR/EC) 81 mg PO DAILY acetaminophen [Tylenol Extra Strength] 500 mg tablet 1,000 mg PO BID PRN omeprazole 20 mg capsule,delayed release(DR/EC) 20 mg feeding tube BID Qty: 90 4RF acetylcysteine 100 mg/mL (10 %) solution 4 ml inhalation BID losartan 25 mg tablet 25 mg PO DAILY metoprolol succinate 25 mg tablet extended release 24 hr 25 mg PO DAILY levothyroxine 88 mcg capsule 88 mcg PO DAILY gabapentin 300 mg capsule 300 mg PO QID Qty: 360 3RF rosuvastatin 40 mg tablet 40 mg feeding tube HS Qty: 90 4RF ipratropium-albuterol 0.5 mg-3 mg(2.5 mg base)/3 mL solution for nebulization 3 ml IN QID PRN (Reason: shortness of breath or wheezing) Qty: 90 4RF Rx Instructions: increased dose/use treatment 4 times/day as needed NOT SENT polyethylene glycol 3350 [Miralax] 17 gram/dose powder 17 g PO DAILY PRN (Reason: constipation) Rx Instructions: 06/19/22 instructed by PCP to take 1/2 cap daily, may reduce to half cap three times per week if daily is too much Vancomycin 250 mg NEB BID 28 Days Qty: 280 12RF Rx Instructions: 250mg vancomycin in 5 cc of sterile water for nebulization To be given every other month for 28 consecutive days sulfamethoxazole-trimethoprim 200-40 mg/5 mL suspension 5 ml PO DAILY 28 Days Qty: 473 9RF Rx Instructions: Take daily for 4 weeks, then off for 4 weeks, etc nystatin 100,000 unit/gram powder 1 applic topical BID Qty: 60 12RF finasteride 5 mg tablet 5 mg PO DAILY Qty: 90 3RF tamsulosin [Flomax] 0.4 mg capsule 0.4 mg PO DAILY Qty: 90 3RF acetylcysteine [NAC] 600 mg capsule 600 mg PO BID Qty: 60 12RF sertraline 50 mg tablet 50 mg PO DAILY Qty: 30 2RF Rx Instructions: decreased by PCP on 06/19/22 melatonin 3 MG tablet 6 mg PO HS furosemide 20 mg tablet 20 mg PO DAILY Qty: 30 0RF Align 4 mg Capsule 4 mg PO QPM ferrous sulfate [FeroSul] 325 mg (65 mg iron) tablet 325 mg PO DAILY Patient Comments: TAKE 1 TABLET VIA FEEDING TUBE ONCE DAILY Discharge Instructions Additional Instructions: * Your workup today in the emergency department is unremarkable. Your x-rays do not demonstrate any acute new fractures * Given the transient nature of your weakness, it is difficult to determine the cause * 's please follow-up with your primary care provider for reevaluation of this ongoing symptom. They can place a referral for you to get physical therapy at home to help build your strength * You should use an assistive device with walking to prevent falls and other injuries * A referral has been placed for you to follow-up with neurology so that you can get further muscle testing to determine a possible etiology of your symptoms Referrals: Brisa Jose MD [ [facility] STAFF PHYSICIAN] - (LEG WEAKNESS ) HPI General Date/Time Provider Initiated Documentation: 01/06/24 14:10 . Limitations to Documentation: physical limitation (uses larynx speech merissa ) . Information obtained by: patient and family . HPI Narrative: 79-year-old gentleman with past medical history of laryngeal cancer status post laryngectomy, COPD, NSTEMI presents for evaluation of Intermittent lower extremity weakness. He reports that over the last few weeks he has noted that while walking occasionally his legs will give out. He states that he has no prior warning of this. It is not associated with chest pain, shortness of breath or headache or dizziness. He has no loss of consciousness, no seizure- like activity. He states that his legs just give out and occasionally he is able to catch himself and support himself with surrounding furniture or the wall, occasionally he has fallen. He denies any injuries during these falls. He is unable to predict when this will occur. He states that he has had weakness in his legs for quite some time, but has not had these issues before now. He states that he has restless leg and peripheral neuropathy as well. Related Data Home Medications ?Medication ?Instructions ?Recorded ?Confirmed omeprazole 20 mg capsule,delayed 20 mg feeding tube BID #90 caps 10/05/19 01/04/24 release melatonin 3 mg tablet 6 mg PO HS 10/29/19 01/04/24 rosuvastatin 40 mg tablet 40 mg feeding tube HS #90 tabs 12/14/19 01/04/24 acetylcysteine 100 mg/mL (10 %) 4 ml inhalation BID 07/05/20 01/04/24 solution ipratropium 0.5 mg-albuterol 3 mg 3 ml IN QID PRN shortness of 07/30/20 01/04/24 (2.5 mg base)/3 mL nebulization breath or wheezing #90 mL soln Bifidobacterium infantis 4 mg 4 mg PO QPM 08/03/21 01/04/24 capsule (Align) ferrous sulfate 325 mg (65 mg 325 mg PO DAILY 08/05/21 01/04/24 iron) tablet (FeroSul) aspirin 81 mg tablet,delayed 81 mg PO DAILY 11/25/21 01/04/24 release (Adult Aspirin Regimen) ropinirole 1 mg tablet 1 mg PO BID 01/07/22 01/04/24 acetaminophen 500 mg tablet 1,000 mg PO BID PRN 03/05/22 01/04/24 (Tylenol Extra Strength) polyethylene glycol 3350 17 17 g PO DAILY PRN constipation 06/19/22 01/04/24 gram/dose oral powder (Miralax) Vancomycin 250 mg NEB BID 28 days #280 mL 09/29/22 01/04/24 sulfamethoxazole 200 5 ml PO DAILY 28 days #473 mL 12/11/22 01/04/24 mg-trimethoprim 40 mg/5 mL oral suspension nystatin 100,000 unit/gram topical 1 applic topical BID #60 grams 02/19/23 01/04/24 powder finasteride 5 mg tablet 5 mg PO DAILY #90 tabs 04/16/23 01/04/24 tamsulosin 0.4 mg capsule (Flomax) 0.4 mg PO DAILY #90 caps 04/16/23 01/04/24 acetylcysteine 600 mg capsule (NAC) 600 mg PO BID #60 caps 07/28/23 01/04/24 furosemide 20 mg tablet 20 mg PO DAILY #30 tabs 08/30/23 01/04/24 levothyroxine 88 mcg capsule 88 mcg PO DAILY 09/02/23 01/04/24 losartan 25 mg tablet 25 mg PO DAILY 09/02/23 01/04/24 metoprolol succinate 25 mg 25 mg PO DAILY 09/02/23 01/04/24 tablet,extended release 24 hr gabapentin 300 mg capsule 300 mg PO QID #360 caps 10/29/23 01/04/24 sertraline 50 mg tablet 50 mg PO DAILY #30 tabs 12/09/23 01/04/24 Previous Rx's ?Medication ?Instructions ?Recorded omeprazole 20 mg capsule,delayed 20 mg feeding tube BID #90 caps 10/05/19 release rosuvastatin 40 mg tablet 40 mg feeding tube HS #90 tabs 12/14/19 ipratropium 0.5 mg-albuterol 3 mg 3 ml IN QID PRN shortness of 07/30/20 (2.5 mg base)/3 mL nebulization breath or wheezing #90 mL soln Vancomycin 250 mg NEB BID 28 days #280 mL 09/29/22 sulfamethoxazole 200 5 ml PO DAILY 28 days #473 mL 12/11/22 mg-trimethoprim 40 mg/5 mL oral suspension nystatin 100,000 unit/gram topical 1 applic topical BID #60 grams 02/19/23 powder finasteride 5 mg tablet 5 mg PO DAILY #90 tabs 04/16/23 tamsulosin 0.4 mg capsule (Flomax) 0.4 mg PO DAILY #90 caps 04/16/23 acetylcysteine 600 mg capsule (NAC) 600 mg PO BID #60 caps 07/28/23 furosemide 20 mg tablet 20 mg PO DAILY #30 tabs 08/30/23 gabapentin 300 mg capsule 300 mg PO QID #360 caps 10/29/23 sertraline 50 mg tablet 50 mg PO DAILY #30 tabs 12/09/23 Allergies Allergy/AdvReac Type Severity Reaction Status Date / Time pollen extracts Allergy Mild Wheezing Verified 01/04/24 10:35 Tetracyclines Allergy Unknown SKIN RASH Verified 01/04/24 10:35 General Stated Complaint: GenMedical CHER: 3 Exam Narrative Exam Narrative: Review of Systems: All systems reviewed & are unremarkable except as noted in HPI and below Cachectic gentleman, no acute distress NCAT PERRL, normal conjunctiva s/p laryngectomy with stoma in place, trach collar on RRR, no murmur Unlabored respiratory effort, CTAB Nondistended abdomen soft, non tender Extremities w/o deformity, no cyanosis, no edema abrasion over left anterior alex, scabbed over various small bruises on bilateral knees no focal neurologic deficits bilateral LE with 5/5 strength Appropriate mood and affect Course Vital Signs Vital signs: Vital Signs Temperature 36.8 C 01/06/24 13:45 Pulse 63 01/06/24 13:45 Respiratory Rate 16 01/06/24 13:45 Blood Pressure 144/42 H 01/06/24 13:45 Pulse Oximetry 95 01/06/24 13:45 Temperature 37.2 C 01/06/24 15:00 Temperature Source Skin 01/06/24 15:00 Pulse 71 01/06/24 15:00 Respiratory Rate 16 01/06/24 15:00 Blood Pressure 188/52 H 01/06/24 15:00 Blood Pressure Position Sitting 01/06/24 13:45 Pulse Oximetry 97 01/06/24 15:00 Oxygen Delivery Method Nasal Cannula 01/06/24 15:00 Oxygen Flow Rate 3 01/06/24 15:00 Pain Level 0 01/06/24 15:00 Comment chronic oxygen user 01/06/24 15:00 Medical Decision Making Emergent evaluation of intermittent lower extremity weakness. The episodes seem to be localized to the lower extremities, and are not associated with any loss of consciousness concerning for syncope. This does not sound like a cardiac dysrhythmia, seizure or other neurologic complication. He has not sustained significant trauma from the falls. He does have neuropathy and restless leg, he just generally unwell appearing. This could be some nutritional deficiency or electrolyte derangement. I do not suspect an acute spinal cord emergency given that he has good strength bilaterally in his lower extremities at this time. Will check lab work and if unremarkable patient will likely need physical therapy follow-up, neurology follow-up and walking device to assist gait and prevent more significant injuries. Lab work reviewed today. There is no leukocytosis. There is no anemia in fact his hemoglobin concentration is higher than previous. No thrombocytopenia. I doubt infectious etiology causing his symptoms or symptomatic anemia. His electrolytes are without derangement. Renal function at baseline. CPK is not elevated. I do not suspect rhabdo. At this time the patient has no neurologic deficits and great strength in bilateral lower extremities. I do not suspect an acute cauda equina syndrome causing lower extremity weakness and that intermittent falls. He does have history of vertebral fracture, so x-rays were obtained today. The x-rays did not demonstrate any acute changes of these old fractures. At this time I have recommended that he follow-up with PCP for physical therapy referral and evaluation. I have also placed a referral for neurology so the patient can has further workup for this intermittent weakness. Given his gait instability, I do recommend that he ambulate with a walker or other assistive device to that he does not have fall and other injury. LOC Medical Records Medical records reviewed: Yes I reviewed the patient's medical records. Lab Data Lab results reviewed: Yes I reviewed the patient's lab results. Quality:[facility] Health Related Social Needs: No Data to Display [facility] All Active Problems (Updated 01/06/24 @ 18:51 by So Whalen MD) Transient weakness of lower extremity (Acute) Right clavicle fracture (Acute 08/30/23) Syncope (Chronic) Ground glass opacity present on imaging of lung (Acute) Subdural hematoma (Acute) Pulmonary edema (Acute) Fracture of thumb, left, closed (Acute) Acute non-ST elevation myocardial infarction (NSTEMI) (Acute) Arm pain (Acute) Palliative care patient (Acute) Hemoptysis (Acute) Caregiver stress (Acute) Nausea & vomiting (Acute) Regurgitation of food (Acute) Pulmonary embolism (Chronic) Uses feeding tube (Acute) Gross hematuria (Acute) Ambulatory dysfunction (Acute) Leukocytosis (leucocytosis) (Acute) UTI (urinary tract infection) (Acute) Multiple subsegmental pulmonary emboli without acute cor pulmonale (Acute) C1 cervical fracture (Acute) Gastrostomy tube dysfunction (Acute) Advance care planning (Acute) Encounter for hospice care discussion (Acute) Unintentional weight loss of 10% body weight within 6 months (Acute) Dysuria (Acute) Malfunctioning jejunostomy tube (Acute) Need for follow-up by director social (Acute) Dysphagia (Acute) Weakness (Acute) Impaired instrumental activities of daily living (Acute) Plantar fascial fibromatosis (Acute) Feeding tube dysfunction (Acute) Sensorineural hearing loss (SNHL) of both ears (Acute) Otalgia of right ear (Acute) Neck pain on right side (Acute) Neck pain on right side (Acute) Full code status (Acute) Need for home health care (Acute) MRSA pneumonia (Acute) pt likely colonized Occlusion of right vertebral artery (Acute) Hypoxemia (Acute) Complication of feeding tube (Acute) Peripheral neuropathy (Acute 02/21/15) PAOD (peripheral arterial occlusive disease) (Acute) COPD (chronic obstructive pulmonary disease) (Chronic) G tube feedings (Acute) 20F 3.0cm 11/30/22. Routine change every 4 months. 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 Hypertension Tobacco use COPD (chronic obstructive pulmonary disease) Post herpetic neuralgia Hypothyroidism Hyperlipemia Depression Anxiety Anemia Conjunctivitis, chronic Surgical History S/P AAA (abdominal aortic aneurysm) repair Status post laryngectomy History of esophagogastroduodenoscopy (EGD) (~08/10/19) Daron Casper APRN @ [facility] [place]: hiatal hernia, GERD, Reyes's esophagitis, neuromuscular dysfunction History of laryngectomy Status post cardiac catheterization Status post cataract extraction and insertion of intraocular lens of right eye (07/12/18) History of tarsorrhaphy Status post cataract extraction and insertion of intraocular lens of left eye (04/30/12) 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) Sin-mullins button placed by Dr Elia Mcdonald, [facility] PROCEDURES RT/LEFT HEART CARD CATH COMPLETE LARYNGECTOMY Esophagoplasty EGD - MAC (07/06/17) Colonoscopy - MAC (12/22/16) History of radical laryngectomy Family History Nephew Throat cancer Maternal Cousin Cancer Social History Smoking/Tobacco Use Status: Former Tobacco Use Quit Date: 04/23/13 Tobacco: How many years used: 20 Smoking risk assessment performed?: Yes Alcohol Intake: never Drug use: Never Substance use type: does not use Housing: apartment Current gender identity: male Do you feel safe at home: Yes Do you feel safe in your relationship?: Yes
[2024-01-06 15:16] LABS: Abs Immature Grans 0.04 10^3/uL (0.0-0.06); Absolute Basophil Count 0.12 10^3/uL (0.0-0.2); Absolute Eosinophil Count 0.51 10^3/uL (0.0-0.7); Absolute Lymphocyte Count 1.02 10^3/uL (1.2-3.4); Absolute Monocyte Count 0.84 10^3/uL (0.1-0.8); Absolute Neutrophil Count 5.48 10^3/uL (1.2-6.7); Basophils % 1.5 %; Eosinophils % 6.4 %; HCT 39.1 % (40.0-50.0); HGB 12.7 g/dL (13.5-17.5); Immature Grans % 0.5 %; Lymphocytes % 12.7 %; MCH 31.6 pg (27.0-33.0); MCHC 32.5 % (32.0-36.0); MCV 97 fL (80-95); MPV 10.4 fL (8.0-11.0); Monocytes % 10.5 %; Neutrophils % 68.4 %; Platelet Count 175 10^3/uL (130-400); RBC 4.02 10^6/uL (4.36-5.78); RDW 13.5 % (11.8-14.1); RDW-SD 48.2 fL; WBC 8.01 10^3/uL (4.4-10.8)
[2024-01-06 15:31] LABS: ALT 39 U/L (16-63); AST 29 U/L (15-37); Albumin 3.5 g/dL (3.4-5.0); Alkaline Phosphatase 107 U/L (46-116); Anion Gap 7.7 mmol/L (3-11); BUN 54 mg/dL (7-18); Bilirubin, Total 0.63 mg/dL (0.2-1.0); CO2 31.3 mmol/L (21.0-32.0); CREATININE 1.1 mg/dL (0.70-1.30); Chloride 100 mmol/L (98-107); Creatine Kinase 83 U/L (39-308); Estimated GFR 68.71 (mL/min/1.73m2); Glucose 104 mg/dL (74-106); Magnesium 2.4 mg/dL (1.8-2.4); Potassium 4.3 mmol/L (3.5-5.1); Sodium 139 mmol/L (136-145); Total Protein 7.6 g/dL (6.4-8.2)
--- NOTE | 2024-01-06 16:15 | DI.RAD_ITS ---
Exam(s) XR LUMBAR SPINE AP, LAT EXAM: XR LUMBAR SPINE AP, LAT CLINICAL HISTORY: falls. TECHNIQUE: 2D digital imaging was performed. COMPARISON: CT CT ABDOMEN PELVIS W from 06/25/2023 FINDINGS: 3 views There are compression fractures of T12 and L1 which appear unchanged from abdominal CT scan of 2023. No new vertebral fractures nor listhesis evident in the lumbosacral spinal column. There is an aortic EVAR again noted. There are also endovascular stents in both renal arteries. IMPRESSION: No acute fractures evident. Fractures of T12 and L1 are unchanged from CT scan of 06/25/2023. DATA REPOSITORY: RADIATION DOSE DELIVERED:
--- NOTE | 2024-01-06 16:45 | DI.RAD_ITS ---
Exam(s) XR THORACIC SPINE COMPLETE EXAM: XR THORACIC SPINE COMPLETE CLINICAL HISTORY: back pain. TECHNIQUE: 2D digital imaging was performed. COMPARISON: CT CT HEAD CERVICAL SPINE WO from 08/16/2023 FINDINGS: There is a long abdominal aortic EVAR which actually starts in the mid descending thoracic aorta and extends the length of the abdominal aorta with distal anastomoses in the common iliac arteries and th ere also bilateral endovascular stents in both renal arteries evident. There are compression fractures of T12 and L1 which are unchanged from CT scan of June 2023. There is osteopenia. Slight loss of height of T7 and T8 vertebral bodies noted, age indeterminate on the upper lateral view there is significant anterolisthesis of C4 upon C5 evident, in addition to di sc space narrowing at this level. This finding, however, is unchanged from CT scan of 08/16/2023. IMPRESSION: Nonacute compression fractures of T12 and L1. No other obvious vertebral fractures identified in the thoracic spinal column. Long length aortic EVAR extending from the mid thoracic aorta down throughout the length of the abdom inal aorta at 2 the common iliac arteries. DATA REPOSITORY: RADIATION DOSE DELIVERED:
--- NOTE | 2024-01-06 19:49 | NUR.NOTE ---
Pt placed on care management referral list to see Neuro F/U for leg weakness to be seen within 1 week. Referral sent to patients PCP
== END 2024-01-06 19:00 | disposition home or self-care (01) ==
PROVIDERS: Emergency Provider Emergency Medicine; PCP Physician Assistant Medical
DX: R53.1 Weakness (principal); R29.6 Repeated falls
CPT/HCPCS: 36415; 80053; 82550; 99284; 72072; 72100; 83735; 85025; 99283

== ENCOUNTER → 2024-01-14 09:45 | Outpatient (BNVA) | payer MEDICARE, MEDICAID, SELFPAY | PROVIDERS: PCP Physician Assistant Medical; Referring Provider Physician Assistant Medical; Visit Provider Psychiatry & Neurology Neurology | DX: G25.81 Restless legs syndrome (principal); G62.9 Polyneuropathy, unspecified; I95.1 Orthostatic hypotension | CPT/HCPCS: 99214 ==

== ENCOUNTER 2024-01-26 18:29 | Emergency (ER) | payer MEDICARE, MEDICAID, SELFPAY ==
[2024-01-26] VITALS (17 sets, daily range): BP systolic 108–221; BP diastolic 49–109; PULSE 71–93; RESP 15–20; TEMP 36.6; O2SAT 81–100
--- NOTE | 2024-01-26 18:48 | ED.GENADUL_ITS ---
Discharge Plan Disposition Condition: Stable Discharge Details Chief Complaint: Fall/Non TraumaCriteria Clinical Impression: Acute on chronic intracranial subdural hematoma, Eyebrow laceration, Head injury due to trauma Primary Care Provider: Nazia Chan ED Provider: Elysia Mahajan [place] Meds and New Rx's Prescriptions: New levetiracetam [Keppra] 500 mg tablet 500 mg PO BID 14 Days Qty: 28 0RF Rx Instructions: Take one tablet twice daily by mouth x 14 days No Action ropinirole 1 mg tablet 1 mg PO BID aspirin [Adult Aspirin Regimen] 81 mg tablet,delayed release (DR/EC) 81 mg PO DAILY acetaminophen [Tylenol Extra Strength] 500 mg tablet 1,000 mg PO BID PRN omeprazole 20 mg capsule,delayed release(DR/EC) 20 mg feeding tube BID Qty: 90 4RF acetylcysteine 100 mg/mL (10 %) solution 4 ml inhalation BID losartan 25 mg tablet 25 mg PO DAILY metoprolol succinate 25 mg tablet extended release 24 hr 25 mg PO DAILY levothyroxine 88 mcg capsule 88 mcg PO DAILY gabapentin 300 mg capsule 300 mg PO QID Qty: 360 3RF rosuvastatin 40 mg tablet 40 mg feeding tube HS Qty: 90 4RF ipratropium-albuterol 0.5 mg-3 mg(2.5 mg base)/3 mL solution for nebulization 3 ml IN QID PRN (Reason: shortness of breath or wheezing) Qty: 90 4RF Rx Instructions: increased dose/use treatment 4 times/day as needed NOT SENT polyethylene glycol 3350 [Miralax] 17 gram/dose powder 17 g PO DAILY PRN (Reason: constipation) Rx Instructions: 06/19/22 instructed by PCP to take 1/2 cap daily, may reduce to half cap three times per week if daily is too much Vancomycin 250 mg NEB BID 28 Days Qty: 280 12RF Rx Instructions: 250mg vancomycin in 5 cc of sterile water for nebulization To be given every other month for 28 consecutive days nystatin 100,000 unit/gram powder 1 applic topical BID Qty: 60 12RF finasteride 5 mg tablet 5 mg PO DAILY Qty: 90 3RF tamsulosin [Flomax] 0.4 mg capsule 0.4 mg PO DAILY Qty: 90 3RF acetylcysteine [NAC] 600 mg capsule 600 mg PO BID Qty: 60 12RF sertraline 50 mg tablet 50 mg PO DAILY Qty: 30 2RF Rx Instructions: decreased by PCP on 06/19/22 sulfamethoxazole-trimethoprim 200-40 mg/5 mL suspension 5 ml PO DAILY 28 Days Qty: 473 9RF Rx Instructions: Take daily for 4 weeks, then off for 4 weeks, etc melatonin 3 MG tablet 6 mg PO HS Align 4 mg Capsule 4 mg PO QPM ferrous sulfate [FeroSul] 325 mg (65 mg iron) tablet 325 mg PO DAILY Patient Comments: TAKE 1 TABLET VIA FEEDING TUBE ONCE DAILY Discharge Instructions Instructions: Head Injury Observation (DC), Subdural Hematoma (DC), Laceration Repair With Stitches ED HPI General Mode of arrival: EMS . Date/Time Provider Initiated Documentation: 01/26/24 18:31 . Limitations to Documentation: physical limitation (Larengectomy) . Information obtained by: patient, EMS, RN notes reviewed and old records reviewed . HPI Narrative: 79 year old male presents with mechanical fall, tripped over a box fan at his home, hitting his head on a nearby object. Denies neck pain, or LOC. Has a 2.5 cm laceration above left eyebrow with slow venous ooze noted. No other signs of trauma. Denies any chest pain abdominal pain. He does have a past medical history of laryngeal cancer with laryngectomy, pneumonia, complication of feeding tube, coronary artery disease, restless leg syndrome, hypothyroidism hypertension hyperlipidemia BPH depression, COPD AAA repair, orthostatic hypotension. He recently saw neurology in December. He does take tamsulosin, he does take aspirin 81 mg daily. No other blood thinners noted. Related Data Home Medications ?Medication ?Instructions ?Recorded ?Confirmed omeprazole 20 mg capsule,delayed 20 mg feeding tube BID #90 caps 10/05/19 01/26/24 release melatonin 3 mg tablet 6 mg PO HS 10/29/19 01/26/24 rosuvastatin 40 mg tablet 40 mg feeding tube HS #90 tabs 12/14/19 01/26/24 acetylcysteine 100 mg/mL (10 %) 4 ml inhalation BID 07/05/20 01/26/24 solution ipratropium 0.5 mg-albuterol 3 mg 3 ml IN QID PRN shortness of 07/30/20 01/26/24 (2.5 mg base)/3 mL nebulization breath or wheezing #90 mL soln Bifidobacterium infantis 4 mg 4 mg PO QPM 08/03/21 01/26/24 capsule (Align) ferrous sulfate 325 mg (65 mg 325 mg PO DAILY 08/05/21 01/26/24 iron) tablet (FeroSul) aspirin 81 mg tablet,delayed 81 mg PO DAILY 11/25/21 01/26/24 release (Adult Aspirin Regimen) ropinirole 1 mg tablet 1 mg PO BID 01/07/22 01/26/24 acetaminophen 500 mg tablet 1,000 mg PO BID PRN 03/05/22 01/26/24 (Tylenol Extra Strength) polyethylene glycol 3350 17 17 g PO DAILY PRN constipation 06/19/22 01/26/24 gram/dose oral powder (Miralax) Vancomycin 250 mg NEB BID 28 days #280 mL 09/29/22 01/26/24 nystatin 100,000 unit/gram topical 1 applic topical BID #60 grams 02/19/23 01/26/24 powder finasteride 5 mg tablet 5 mg PO DAILY #90 tabs 04/16/23 01/26/24 tamsulosin 0.4 mg capsule (Flomax) 0.4 mg PO DAILY #90 caps 04/16/23 01/26/24 acetylcysteine 600 mg capsule (NAC) 600 mg PO BID #60 caps 07/28/23 01/26/24 levothyroxine 88 mcg capsule 88 mcg PO DAILY 09/02/23 01/26/24 losartan 25 mg tablet 25 mg PO DAILY 09/02/23 01/26/24 metoprolol succinate 25 mg 25 mg PO DAILY 09/02/23 01/26/24 tablet,extended release 24 hr gabapentin 300 mg capsule 300 mg PO QID #360 caps 10/29/23 01/26/24 sertraline 50 mg tablet 50 mg PO DAILY #30 tabs 12/09/23 01/26/24 sulfamethoxazole 200 5 ml PO DAILY 28 days #473 mL 01/13/24 01/26/24 mg-trimethoprim 40 mg/5 mL oral suspension levetiracetam 500 mg tablet 500 mg PO BID Subdural hematoma 14 01/26/24 (Keppra) days #28 tabs Previous Rx's ?Medication ?Instructions ?Recorded omeprazole 20 mg capsule,delayed 20 mg feeding tube BID #90 caps 10/05/19 release rosuvastatin 40 mg tablet 40 mg feeding tube HS #90 tabs 12/14/19 ipratropium 0.5 mg-albuterol 3 mg 3 ml IN QID PRN shortness of 07/30/20 (2.5 mg base)/3 mL nebulization breath or wheezing #90 mL soln Vancomycin 250 mg NEB BID 28 days #280 mL 09/29/22 nystatin 100,000 unit/gram topical 1 applic topical BID #60 grams 02/19/23 powder finasteride 5 mg tablet 5 mg PO DAILY #90 tabs 04/16/23 tamsulosin 0.4 mg capsule (Flomax) 0.4 mg PO DAILY #90 caps 04/16/23 acetylcysteine 600 mg capsule (NAC) 600 mg PO BID #60 caps 07/28/23 gabapentin 300 mg capsule 300 mg PO QID #360 caps 10/29/23 sertraline 50 mg tablet 50 mg PO DAILY #30 tabs 12/09/23 sulfamethoxazole 200 5 ml PO DAILY 28 days #473 mL 01/13/24 mg-trimethoprim 40 mg/5 mL oral suspension levetiracetam 500 mg tablet 500 mg PO BID Subdural hematoma 14 01/26/24 (Keppra) days #28 tabs Allergies Allergy/AdvReac Type Severity Reaction Status Date / Time pollen extracts Allergy Mild Wheezing Verified 01/26/24 22:16 Tetracyclines Allergy Unknown SKIN RASH Verified 01/26/24 22:16 General Stated Complaint: Fall/Non TraumaCriteria CHER: 3 Review of Systems All systems reviewed & are unremarkable except as noted in HPI and below Constitutional Constitutional: Reports as per HPI, Reports frequent falls and Denies headache(s) Eyes Eyes: Denies loss of vision ENT Ears, Nose, Mouth, and Throat: Reports as per HPI, Denies dizziness, Reports facial pain, Denies headache(s) and Reports disequilibrium Cardiovascular Cardiovascular: Denies chest pain and Denies dyspnea Respiratory Respiratory: Denies dyspnea Musculoskeletal Musculoskeletal: Reports as per HPI Integumentary/Breasts Skin/Breast: Reports wounds Neurologic Neurologic: Denies confusion, Denies dizziness, Reports frequent falls, Denies headache(s), Denies localized weakness, Denies loss of vision, Reports disequilibrium and Reports other (Reports episodes of loss of body control with collapse and then I'm fine) Psychiatric Psychiatric: Denies confusion Exam Narrative Exam Narrative: General: Well Developed, Awake and Alert, communicating with note pad and paper. Skin: Warm and Dry HEENT: Head: Laceration noted to left eyebrow, is irregular, bleeding, controlled with bandage. Eyes: Pupils PERRLA, EOM's intact. No periorbital eccymosis or step off Ears: Canal patent. Tympanic membranes are clear . No ariza's sign, no hemptympanum. Nose/Face: Atraumatic. Facial bones nontender to palpation and stable with manipulation. Mouth/Throat: No intraoral trauma. Teeth and mandible are intact. Neck: No midline tenderness, no step off, no deformity to palpation of C-spine. Trachea midline. Tracheal stoma, history of larengectomy, on 2l oxygen Chest: No surface trauma. Nontender without crepitus or deformity. Lungs clear to ausculatation bilaterally. Heart: RRR, no rubs, murmurs or gallop. Abdomen: No abrasions, ecchymosis, or surface trauma. Nondistended. Nontender to palpation no guarding, rebound, or rigidity. Pelvis: Nontender to palpation and stable to compression. Femoral pulses strong and equal Extremities: Small superficial abrasion to laterl left knee. Sensation intact. Peripheral pulses intact and equal. Neuro: ANO x4, GCS 15, cranial nerves II through XII intact. Motor and sensory exam nonfocal. Reflexes are symmetric. [facility] Head images: 2 1. Laceration, irregular edges. Bleeding controlled with dressing Course Vital Signs Vital signs: Vital Signs Temperature 36.6 C 01/26/24 18:33 Pulse 83 01/26/24 18:33 Respiratory Rate 15 01/26/24 18:33 Blood Pressure 215/49 H 01/26/24 18:33 Pulse Oximetry 95 01/26/24 18:33 Temperature 36.6 C 01/26/24 18:33 Temperature Source Tympanic 01/26/24 18:33 Pulse 83 01/26/24 18:33 Respiratory Rate 15 01/26/24 18:33 Blood Pressure 215/49 H 01/26/24 18:33 Blood Pressure Position Sitting 01/26/24 18:33 Pulse Oximetry 95 01/26/24 18:33 Oxygen Delivery Method Room Air 01/26/24 18:33 Oxygen Flow Rate 0 01/26/24 18:33 Pain Level 0 01/26/24 18:33 Procedures Laceration Laceration 1: Site: face Side (If applicable): left Size (cm): 2.5 Description: irregular Depth: simple, single layer Local anesthetic: Lidocaine 1% and with Epi Amount of anesthesia used (mL): 5 Pre-repair: wound explored, irrigated extensively and deep structures intact Skin layer closed with: nylon Size (cm): 4-0 Number of sutures: 6 Technique: simple, interrupted Medical Decision Making 79 year old male presents with mechanical fall, tripped over a box fan at his home, hitting his head on a nearby object. Denies neck pain, or LOC. Has a 2.5 cm laceration above left eyebrow with slow venous ooze noted. No other signs of trauma. Denies any chest pain abdominal pain. He does have a past medical history of laryngeal cancer with laryngectomy, pneumonia, complication of feeding tube, coronary artery disease, restless leg syndrome, hypothyroidism hypertension hyperlipidemia BPH depression, COPD AAA repair, orthostatic hypotension. He recently saw neurology in December. He does take tamsulosin, he does take aspirin 81 mg daily. No other blood thinners noted. CT head and Topical let ordered. Laceration repaired with 6 simple interrupted sutures, anesthetized with 1% lidocaine with epi patient tolerated well. Bleeding is controlled post laceration repair. Discussed with V rad radiologist CT results show a acute on chronic subdural hematoma on the left cerebral convexity, there is also a separate more acute appearing subdural and subarachnoid blood along the left temporal parietal and occipital lobes. Acute versus subacute appearing subdural hematoma along the right temporal parietal lobe. Please see official reports. Patient denies headache at this time. He is alert and oriented. Vital signs are stable. No midline shift or herniation. Will speak with [facility] neuro. 2105: [facility] transfer center called for transfer, will call back. 2230: Spoke with MARC Morton with neurosurgery at [facility]. He did just have a CT done at their facility on January 11 there is some small new bleeds near the chronic subdural hematomas. He recommends repeat 6-hour interval CT scan if this is stable can be discharged home to keep his previously scheduled appointment in the office in February. He does recommend to be seen sooner if he develops headaches or confusion. He does agree with Keppra IV which was already ordered and discharging with Keppra 500 mg twice daily x 14 days. Will update patient and family on plan of care. Care to be handed off to Provider Dr. Clemons, pending labs and repeat CT at 6 hrs as recommended by [facility] Neurosurgery. Medical Records Medical records reviewed: Yes I reviewed the patient's medical records. Imaging Data Radiologic Study: Imaging: CT Scan Radiologist's impression: COMPARISON: 1. CT HEAD WO 09/09/2023 12:[address] NECK W 05/26/2023 5:[address] HEAD CERVICAL SPINE WO 08/16/2023 6:15 PM FINDINGS: Brain: Interval increase in size of large mixed density left cerebral convexity subdural hematoma measuring up to 9 mm in thickness (coronal series 4, image 45) concerning for acute on chronic subdural hematoma. There also appears separate more acute appearing subdural and subarachnoid blood along the left temporal, parietal, and occipital lobes inferior to larger subdural hematoma. There is acute versus subacute appearing subdural hematoma along the right temporoparietal lobe measuring up to 5 mm in thickness (series 2, image 42) with mixed density subdural hematoma along the right frontoparietal lobe measuring up to 4 mm in thickness (series 4, image 31) suggestive for acute on chronic subdural. No midline shift or evidence of acute herniation. There is moderate age related parenchymal atrophy with prominence of the cortical sulci. Periventricular and deep white matter hypodensities are consistent with sequela of chronic microvascular ischemic disease. Cerebral ventricles: Mild ex vacuo dilation of the ventricles, likely secondary to age related volume loss. Paranasal sinuses: Imaged paranasal sinuses appropriately aerated without air-fluid levels. Mastoid air cells: No mastoid effusion. 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 Status post bilateral lens replacement. Bones: No displaced or depressed skull fracture. 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 Soft tissues: Left periorbital posttraumatic soft tissue injury. Vasculature: Vascular calcifications within the vertebral and carotid arteries are present. IMPRESSION: 1. Enlarging acute on chronic left cerebral convexity subdural hematoma with new multifocal bilateral acute on chronic cerebral convexity subdural hematomas as discussed with superimposed mild posttraumatic subarachnoid hemorrhage involving the posterior left cerebral hemisphere. 2. No midline shift or herniation. 3. Additional nonacute findings as discussed. COMMENTS: THIS REPORT CONTAINS FINDINGS THAT MAY BE CRITICAL TO PATIENT CARE. The findings were verbally communicated via telephone conference with ELYSIA MAHAJAN at 8:40 PM EDT on 01/26/2024. The findings were acknowledged and understood. Thank you for allowing us to participate in the care of your patient. Dictated and Authenticated by: Eric Lawson MD Quality:SDOH Health Related Social Needs: 2 No Data to Display PFSH All Active Problems (Updated 01/26/24 @ 23:07 by Elysia Mahajan, [employer]) Head injury due to trauma (Acute) Eyebrow laceration (Acute) Acute on chronic intracranial subdural hematoma (Acute) Orthostatic hypotension (Acute) Transient weakness of lower extremity (Acute) Right clavicle fracture (Acute 08/30/23) Syncope (Chronic) Ground glass opacity present on imaging of lung (Acute) Subdural hematoma (Acute) Pulmonary edema (Acute) Fracture of thumb, left, closed (Acute) Acute non-ST elevation myocardial infarction (NSTEMI) (Acute) Arm pain (Acute) Palliative care patient (Acute) Hemoptysis (Acute) Caregiver stress (Acute) Nausea & vomiting (Acute) Regurgitation of food (Acute) Pulmonary embolism (Chronic) Uses feeding tube (Acute) Gross hematuria (Acute) Ambulatory dysfunction (Acute) Leukocytosis (leucocytosis) (Acute) UTI (urinary tract infection) (Acute) Multiple subsegmental pulmonary emboli without acute cor pulmonale (Acute) C1 cervical fracture (Acute) Gastrostomy tube dysfunction (Acute) Advance care planning (Acute) Encounter for hospice care discussion (Acute) Unintentional weight loss of 10% body weight within 6 months (Acute) Dysuria (Acute) Malfunctioning jejunostomy tube (Acute) Need for follow-up by 7th grade social studies teacher (Acute) Dysphagia (Acute) Weakness (Acute) Impaired instrumental activities of daily living (Acute) Plantar fascial fibromatosis (Acute) Feeding tube dysfunction (Acute) Sensorineural hearing loss (SNHL) of both ears (Acute) Otalgia of right ear (Acute) Neck pain on right side (Acute) Neck pain on right side (Acute) Full code status (Acute) Need for home health care (Acute) MRSA pneumonia (Acute) pt likely colonized Occlusion of right vertebral artery (Acute) Hypoxemia (Acute) Complication of feeding tube (Acute) Peripheral neuropathy (Acute 02/21/15) PAOD (peripheral arterial occlusive disease) (Acute) COPD (chronic obstructive pulmonary disease) (Chronic) G tube feedings (Acute) 20F 3.0cm 11/30/22. Routine change every 4 months. 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 Hypertension Tobacco use COPD (chronic obstructive pulmonary disease) Post herpetic neuralgia Hypothyroidism Hyperlipemia Depression Anxiety Anemia Conjunctivitis, chronic Surgical History S/P AAA (abdominal aortic aneurysm) repair Status post laryngectomy History of esophagogastroduodenoscopy (EGD) (~08/10/19) Daron Casper APRN @ [facility]: hiatal hernia, GERD, Reyes's esophagitis, neuromuscular dysfunction History of laryngectomy Status post cardiac catheterization Status post cataract extraction and insertion of intraocular lens of right eye (07/12/18) History of tarsorrhaphy Status post cataract extraction and insertion of intraocular lens of left eye (04/30/12) 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) Sin-mullins button placed by Dr Elia Mcdonald, [facility] PROCEDURES RT/LEFT HEART CARD CATH COMPLETE LARYNGECTOMY Esophagoplasty EGD - MAC (07/06/17) Colonoscopy - MAC (12/22/16) History of radical laryngectomy Family History Nephew Throat cancer Maternal Cousin Cancer Social History Smoking/Tobacco Use Status: Former Tobacco Use Quit Date: 04/23/13 Tobacco: How many years used: 20 Smoking risk assessment performed?: Yes Alcohol Intake: never Drug use: Never Substance use type: does not use Housing: apartment Current gender identity: male Do you feel safe at home: Yes Do you feel safe in your relationship?: Yes Sign Out Sign Out Data: Sign Out Comment: Pending Repeat Head CT at 0130. Needs to be pushed to [facility]. Acute on chronic subdural hematoma and subarachnoid hemorrhage. Given 1500mg Keppra IVPB, To be discharged with Keppra 500mg BID x 14 days which was e- scripted to pharmacy. Last updated by Elysia Mahajan, [employer] at 01/26/24 23:18
--- NOTE | 2024-01-26 19:48 | DI.CT_ITS ---
Exam(s) CT HEAD WO EXAM: CT HEAD WO CLINICAL HISTORY: Fall, Left eyebrow laceration. TECHNIQUE: Imaging Protocol: Axial computed tomography images with coronal and sagittal reformatted images were created and reviewed COMPARISON: No exams were available for comparison FINDINGS: Ventricles and Extra axial spaces: Normal in size and morphology for the patient's age. Hemorrhage: There is an acute right subdural hemorrhage predominantly adjacent to the right temporal lobe measuring 4 mm in thickness. There is a persistent left convex extra-axial fluid collection. I t measures up to 9 mm in thickness. There is evidence of an acute component to this hemorrhage seen adjacent to the left temporal and parietal lobes. There is a linear area of increased density in the left occipital lobe suspicious for subarachnoid hemorrhage (series 6, image 30). Cerebral parenchyma: There are areas of decreased attenuation in the white matter most consistent wit h chronic microvascular ischemic disease. Midline shift: None. Brainstem/Cerebellum: Normal. Calvarium: Normal. There is chronic nonunion of components of the anterior posterior arch of C1. Visualized Paranasal sinuses/Mastoids: Clear. Soft Tissues: Unremarkable. IMPRESSION: 1. There is an acute on chronic left subdural hematoma measuring up to 9 mm in thickness. 2. Acute right convex subdural hematoma measuring up to 4 mm in thickness. 3. Hyperdensity in the left occipital lobe suspicious for subarachnoid hemorrhage. RADIATION DOSE DELIVERED: Total DLP DATA REPOSITORY: All CT scans at this facility are submitted to the National Radiology Data Registry (NRDR) Dose Index Registry (DIR) with the [employer] (ACR). RADIATION OPTIMIZATION: All CT scans at this facility use at least one of these dose optimization te chniques: automated exposure control; mA and/or kV adjustment per patient size (includes targeted exa ms where dose is matched to clinical indication); or iterative reconstruction.
--- NOTE | 2024-01-26 20:43 | DI.VRAD_ITS ---
PROCEDURE INFORMATION: Exam: CT Head Without Contrast Exam date and time: 01/26/2024 7:36 PM Age: 79 years old Clinical indication: Injury or trauma; Other: Fall, left eyebrow laceration TECHNIQUE: Imaging protocol: Computed tomography of the head without contrast. COMPARISON: 1. CT HEAD WO 09/09/2023 12:[address] NECK W 05/26/2023 5:[address] HEAD CERVICAL SPINE WO 08/16/2023 6:15 PM FINDINGS: Brain: Interval increase in size of large mixed density left cerebral convexity subdural hematoma measuring up to 9 mm in thickness (coronal series 4, image 45) concerning for acute on chronic subdural hematoma. There also appears separate more acute appearing subdural and subarachnoid blood along the left temporal, parietal, and occipital lobes inferior to larger subdural hematoma. There is acute versus subacute appearing subdural hematoma along the right temporoparietal lobe measuring up to 5 mm in thickness (series 2, image 42) with mixed density subdural hematoma along the right frontoparietal lobe measuring up to 4 mm in thickness (series 4, image 31) suggestive for acute on chronic subdural. No midline shift or evidence of acute herniation. There is moderate age related parenchymal atrophy with prominence of the cortical sulci. Periventricular and deep white matter hypodensities are consistent with sequela of chronic microvascular ischemic disease. Cerebral ventricles: Mild ex vacuo dilation of the ventricles, likely secondary to age related volume loss. Paranasal sinuses: Imaged paranasal sinuses appropriately aerated without air-fluid levels. Mastoid air cells: No mastoid effusion. 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 Status post bilateral lens replacement. Bones: No displaced or depressed skull fracture. 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 Soft tissues: Left periorbital posttraumatic soft tissue injury. Vasculature: Vascular calcifications within the vertebral and carotid arteries are present. IMPRESSION: 1. Enlarging acute on chronic left cerebral convexity subdural hematoma with new multifocal bilateral acute on chronic cerebral convexity subdural hematomas as discussed with superimposed mild posttraumatic subarachnoid hemorrhage involving the posterior left cerebral hemisphere. 2. No midline shift or herniation. 3. Additional nonacute findings as discussed. COMMENTS: THIS REPORT CONTAINS FINDINGS THAT MAY BE CRITICAL TO PATIENT CARE. The findings were verbally communicated via telephone conference with BALBINA MAHAJAN at 8:40 PM EDT on 01/26/2024. The findings were acknowledged and understood. Dictated and Authenticated by: Eric Lawson MD. Ordering:KARIN Naidu MD
[2024-01-26 22:55] LABS: Abs Immature Grans 0.06 10^3/uL (0.0-0.06); Absolute Basophil Count 0.16 10^3/uL (0.0-0.2); Absolute Eosinophil Count 0.49 10^3/uL (0.0-0.7); Absolute Lymphocyte Count 1.15 10^3/uL (1.2-3.4); Absolute Monocyte Count 1.02 10^3/uL (0.1-0.8); Basophils % 1.5 %; Eosinophils % 4.5 %; HCT 41.1 % (40.0-50.0); Immature Grans % 0.5 %; Lymphocytes % 10.5 %; MCH 31.6 pg (27.0-33.0); MCHC 31.6 % (32.0-36.0); MCV 100 fL (80-95); MPV 10.2 fL (8.0-11.0); Monocytes % 9.3 %; Neutrophils % 73.7 %; Platelet Count 206 10^3/uL (130-400); RBC 4.11 10^6/uL (4.36-5.78); RDW 13.6 % (11.8-14.1); WBC 10.99 10^3/uL (4.4-10.8)
[2024-01-26 23:03] LABS: INR 1.1 (0.9-1.1); PTT Activated 25.4 sec (23.6-32.8); Prothrombin Time 10.6 sec (9.1-11.1)
[2024-01-26 23:09] LABS: ALT 61 U/L (16-63); AST 37 U/L (15-37); Albumin 3.5 g/dL (3.4-5.0); Alkaline Phosphatase 99 U/L (46-116); Anion Gap 10.6 mmol/L (3-11); BUN 25 mg/dL (7-18); Bilirubin, Total 0.81 mg/dL (0.2-1.0); CO2 28.4 mmol/L (21.0-32.0); CREATININE 0.8 mg/dL (0.70-1.30); Calcium 9.5 mg/dL (8.5-10.1); Chloride 102 mmol/L (98-107); Estimated GFR 90.58 (mL/min/1.73m2); Glucose 82 mg/dL (74-106); Sodium 141 mmol/L (136-145); Total Protein 7.6 g/dL (6.4-8.2)
[2024-01-26] MEDS: Lidocaine 1% Multi-Dose W/EPI 1/100,000 50 ML VIAL (23:15)
[2024-01-26] MEDS: Lidocaine/Epinephri/Tetracaine Topical Gel 3 ML TP (23:15)
--- NOTE | 2024-01-26 23:30 | ED.PROG_ITS ---
Date of service: 01/26/24 Time of Service: 23:30 Medical Decision Making This patient was signed out to me. Please see previous notes for H&P and initial eval. In brief, 79yo M with chronic subdural found to have acute-on chronic subdural and SAH after a fall. Non-focal neurologic exam. Patient has been discussed with [facility] neurosurgery who advised repeat head CT 6 hours after first; if CT stable and continues to have no focal neurologic deficits they would like to followup up with him on an outpatient basis. Otherwise would re-consult with results. On reassessment he has a reassuring neurologic exam with no focal deficits. Repeat CT independently reviewed and discussed with radiologist; radiology read below with worsening acute components to SDH on the left and likely the right as well. Discussed with [facility] neurosrugery Dr. Wilkerson who reviewed images, patient thought to have minimal change and likely some component of layering, does not feel patient needs emergent transfer at this time. Advised 2nd repeat CT 6 hours from now and at that point would make a decision regarding whether patient most appropriate for outpatient followup or for transfer. Patient will be signed out to oncoming physician, plan as above. Imaging Data Radiologic Study: Imaging: CT Scan Radiologist's impression: IMPRESSION: 1. Acute appearing extra-axial hemorrhage suspected to represent combination of subdural and posttraumatic subarachnoid hemorrhage along the left temporal, parietal, and occipital lobes appears increased in size in the interval as discussed. 2. Likely acute extra-axial hemorrhage along the right temporoparietal lobe may be mildly increased in size in the interval. 3. Mixed density large left cerebral convexity subdural hematoma suspected to represent acute on chronic hematoma not appreciably changed in the interval. 4. Mixed density subdural hematoma along the right frontoparietal lobe also appears similar to recent prior. 5. No midline shift. Quality:[facility] Health Related Social Needs: No Data to Display Sign Out Sign Out Data: Sign Out Comment: Pending Repeat Head CT at 0130. Needs to be pushed to [facility]. Acute on chronic subdural hematoma and subarachnoid hemorrhage. Given 1500mg Keppra IVPB, To be discharged with Keppra 500mg BID x 14 days which was e- scripted to pharmacy. Last updated by Elysia Griffin NP at 01/26/24 23:18 Discharge Plan Disposition Condition: Stable Discharge Details Chief Complaint: Fall/Non TraumaCriteria Clinical Impression: Acute on chronic intracranial subdural hematoma, Eyebrow laceration, Head injury due to trauma Primary Care Provider: Nazia Chan ED Provider: Deja Clemons Home Meds and New Rx's Prescriptions: New levetiracetam [Keppra] 500 mg tablet 500 mg PO BID 14 Days Qty: 28 0RF Rx Instructions: Take one tablet twice daily by mouth x 14 days No Action ropinirole 1 mg tablet 1 mg PO BID aspirin [Adult Aspirin Regimen] 81 mg tablet,delayed release (DR/EC) 81 mg PO DAILY acetaminophen [Tylenol Extra Strength] 500 mg tablet 1,000 mg PO BID PRN omeprazole 20 mg capsule,delayed release(DR/EC) 20 mg feeding tube BID Qty: 90 4RF acetylcysteine 100 mg/mL (10 %) solution 4 ml inhalation BID losartan 25 mg tablet 25 mg PO DAILY metoprolol succinate 25 mg tablet extended release 24 hr 25 mg PO DAILY levothyroxine 88 mcg capsule 88 mcg PO DAILY gabapentin 300 mg capsule 300 mg PO QID Qty: 360 3RF rosuvastatin 40 mg tablet 40 mg feeding tube HS Qty: 90 4RF ipratropium-albuterol 0.5 mg-3 mg(2.5 mg base)/3 mL solution for nebulization 3 ml IN QID PRN (Reason: shortness of breath or wheezing) Qty: 90 4RF Rx Instructions: increased dose/use treatment 4 times/day as needed NOT SENT polyethylene glycol 3350 [Miralax] 17 gram/dose powder 17 g PO DAILY PRN (Reason: constipation) Rx Instructions: 06/19/22 instructed by PCP to take 1/2 cap daily, may reduce to half cap three times per week if daily is too much Vancomycin 250 mg NEB BID 28 Days Qty: 280 12RF Rx Instructions: 250mg vancomycin in 5 cc of sterile water for nebulization To be given every other month for 28 consecutive days nystatin 100,000 unit/gram powder 1 applic topical BID Qty: 60 12RF finasteride 5 mg tablet 5 mg PO DAILY Qty: 90 3RF tamsulosin [Flomax] 0.4 mg capsule 0.4 mg PO DAILY Qty: 90 3RF acetylcysteine [NAC] 600 mg capsule 600 mg PO BID Qty: 60 12RF sertraline 50 mg tablet 50 mg PO DAILY Qty: 30 2RF Rx Instructions: decreased by PCP on 06/19/22 sulfamethoxazole-trimethoprim 200-40 mg/5 mL suspension 5 ml PO DAILY 28 Days Qty: 473 9RF Rx Instructions: Take daily for 4 weeks, then off for 4 weeks, etc melatonin 3 MG tablet 6 mg PO HS Align 4 mg Capsule 4 mg PO QPM ferrous sulfate [FeroSul] 325 mg (65 mg iron) tablet 325 mg PO DAILY Patient Comments: TAKE 1 TABLET VIA FEEDING TUBE ONCE DAILY Discharge Instructions Instructions: Head Injury Observation (DC), Subdural Hematoma (DC), Laceration Repair With Stitches ED
[2024-01-27] VITALS (31 sets, daily range): BP systolic 119–196; BP diastolic 39–114; PULSE 62–75; RESP 16–18; TEMP 36.3; O2SAT 93–100
--- NOTE | 2024-01-27 01:30 | DI.CT_ITS ---
Exam(s) CT HEAD WO EXAM: CT HEAD WO CLINICAL HISTORY: acute on chr subdural, SAH, eval interval change. TECHNIQUE: Imaging Protocol: Axial computed tomography images with coronal and sagittal reformatted images were created and reviewed COMPARISON: CT CT HEAD WO from 01/26/2024 FINDINGS: Ventricles and Extra axial spaces: Normal in size and morphology for the patient's age. Hemorrhage: There has been an increase in the amount of the acute hemorrhage in the left convexity si nce the prior examination. The acute right convex subdural hemorrhage appears stable. There is agai n seen subarachnoid hemorrhage in the left occipital lobe. Cerebral parenchyma: There again seen findings of chronic microvascular ischemic disease. Midline shift: None. Brainstem/Cerebellum: Normal. Calvarium: Normal. There is again seen chronic nonunion of the anterior and posterior arches of C1. Visualized Paranasal sinuses/Mastoids: Clear. Soft Tissues: Stable left periorbital soft tissue swelling. 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 IMPRESSION: 1. There has been slight interval increase in size of the acute hemorrhage along the posterior aspect of the left convexity since the prior examination. 2. No significant increase in the subarachnoid hemorrhage in the left occipital lobe. 3. No definite increase in the subdural hemorrhage along the right convexity. 4. There are underlying bilateral chronic subdural hematomas present. RADIATION DOSE DELIVERED: Total DLP DATA REPOSITORY: All CT scans at this facility are submitted to the National Radiology Data Registry (NRDR) Dose Index Registry (DIR) with the [employer] (ACR). RADIATION OPTIMIZATION: All CT scans at this facility use at least one of these dose optimization te chniques: automated exposure control; mA and/or kV adjustment per patient size (includes targeted exa ms where dose is matched to clinical indication); or iterative reconstruction.
--- NOTE | 2024-01-27 02:13 | DI.VRAD_ITS ---
Addendum created by Eric Lawson MD on 01/27/2024 2:15:17 AM EDT: THIS REPORT CONTAINS FINDINGS THAT MAY BE CRITICAL TO PATIENT CARE. The findings were verbally communicated via telephone conference with STEPHANY LAGUNAS at 2:15 AM EDT on 01/27/2024. The findings were acknowledged and understood. Initial report created on 01/27/2024 2:13:04 AM EDT: PROCEDURE INFORMATION: Exam: CT Head Without Contrast Exam date and time: 01/27/2024 1:38 AM Age: 79 years old Clinical indication: Injury or trauma; Fall; Blunt trauma (contusions or hematomas); Consciousness not specified TECHNIQUE: Imaging protocol: Computed tomography of the head without contrast. COMPARISON: CT HEAD WO 01/26/2024 7:36 PM FINDINGS: Brain: Acute appearing extra-axial hemorrhage suspected to represent combination of subdural and posttraumatic subarachnoid hemorrhage along the left temporal, parietal, and occipital lobes appears increased in size in the interval now measuring up to 6 mm in thickness and 5.8 cm in length, previously 3 mm in thickness and estimated 4.5 cm in length. There also may be mild interval increase in likely acute extra-axial hemorrhage along the right temporoparietal lobe with similar thickness to prior although with increased extension along the right tentorium posteriorly compared to prior. Large mixed density left cerebral convexity subdural hematoma appears similar to prior measuring 9 mm in thickness (series 4, image 41) as well as mixed density subdural hematoma along the right frontoparietal lobe measuring 4-5 mm in thickness (series 4, image 36). No midline shift or evidence of tonsillar herniation. There is moderate age related parenchymal atrophy with prominence of the cortical sulci. Periventricular and deep white matter hypodensities are consistent with sequela of chronic microvascular ischemic disease. Cerebral ventricles: Mild ex vacuo dilation of the ventricles, likely secondary to age related volume loss. Paranasal sinuses: Imaged paranasal sinuses appropriately aerated without air-fluid levels. Mastoid air cells: No mastoid effusion. Orbital cavities: Unchanged appearance of previous left retinal detachment. Status post bilateral lens replacement. Bones: No displaced or depressed skull fracture. Chronic changes of the C1 arch incompletely evaluated on this exam although visualized portions similar to recent comparison. Soft tissues: Left periorbital posttraumatic soft tissue injury. Vasculature: Vascular calcifications within the vertebral and carotid arteries are present. IMPRESSION: 1. Acute appearing extra-axial hemorrhage suspected to represent combination of subdural and posttraumatic subarachnoid hemorrhage along the left temporal, parietal, and occipital lobes appears increased in size in the interval as discussed. 2. Likely acute extra-axial hemorrhage along the right temporoparietal lobe may be mildly increased in size in the interval. 3. Mixed density large left cerebral convexity subdural hematoma suspected to represent acute on chronic hematoma not appreciably changed in the interval. 4. Mixed density subdural hematoma along the right frontoparietal lobe also appears similar to recent prior. 5. No midline shift. Dictated and Authenticated by: Eric Lawson MD. Ordering:TWIN Short MD
[2024-01-27] MEDS: Gabapentin 300 MG CAP PO (02:36)
--- NOTE | 2024-01-27 07:25 | W.EDPROG ---
Date of service: 01/27/24 Time of Service: 07:26 Medical Decision Making 79-year-old gentleman with complex medical history including chronic subdural hematomas presents for evaluation after a fall. Patient was found to have acute on chronic subdural. Consultation with neurosurgery at [facility] recommended a [address] They did perform that scan and that was concerning for worsening, and again neurosurgery requested another 6-hour CT. Final disposition pending repeat CT this morning. Patient has remained neurologically intact overnight. Repeat head CT this morning is unchanged and stable from last head CT. It was reviewed again by neurosurgery and we discussed follow-up plan. They are recommending that the patient hold the daily aspirin until they evaluate the patient in clinic. They will arrange for outpatient head CT and clinic follow-up in 2 weeks. A referral has been faxed. The patient has been provided with the clinic number in case they do not hear from them regarding their follow-up appointment. Discharged in stable condition and return precautions advised Quality:[facility] Health Related Social Needs: No Data to Display Sign Out Sign Out Data: Sign Out Comment: Pending Repeat Head CT at 0130. Needs to be pushed to [facility]. Acute on chronic subdural hematoma and subarachnoid hemorrhage. Given 1500mg Keppra IVPB, To be discharged with Keppra 500mg BID x 14 days which was e-scripted to pharmacy. Last updated by Elysia Griffin NP at 01/26/24 23:18 Sign Out Comment: Acute on chronic SDH and traumautic SAH after fall. Nonfocal. Loaded with keppra, keppra 500mg BID sent to pharmacy should pt be discharged. Pending another repeat head CT and repeat discussion with [facility] neurosurgery. Last updated by Deja Clemons MD at 01/27/24 07:14 Discharge Plan Disposition Patient Disposition: Home Condition: Stable Discharge Details Clinical Impression: Acute on chronic intracranial subdural hematoma, Eyebrow laceration, Head injury due to trauma Primary Care Provider: Nazia Chan ED Provider: So Whalen Home Meds and New Rx's Prescriptions: New levetiracetam [Keppra] 500 mg tablet 500 mg PO BID 14 Days Qty: 28 0RF Rx Instructions: Take one tablet twice daily by mouth x 14 days No Action ropinirole 1 mg tablet 1 mg PO BID aspirin [Adult Aspirin Regimen] 81 mg tablet,delayed release (DR/EC) 81 mg PO DAILY acetaminophen [Tylenol Extra Strength] 500 mg tablet 1,000 mg PO BID PRN omeprazole 20 mg capsule,delayed release(DR/EC) 20 mg feeding tube BID Qty: 90 4RF acetylcysteine 100 mg/mL (10 %) solution 4 ml inhalation BID losartan 25 mg tablet 25 mg PO DAILY metoprolol succinate 25 mg tablet extended release 24 hr 25 mg PO DAILY levothyroxine 88 mcg capsule 88 mcg PO DAILY gabapentin 300 mg capsule 300 mg PO QID Qty: 360 3RF rosuvastatin 40 mg tablet 40 mg feeding tube HS Qty: 90 4RF ipratropium-albuterol 0.5 mg-3 mg(2.5 mg base)/3 mL solution for nebulization 3 ml IN QID PRN (Reason: shortness of breath or wheezing) Qty: 90 4RF Rx Instructions: increased dose/use treatment 4 times/day as needed NOT SENT polyethylene glycol 3350 [Miralax] 17 gram/dose powder 17 g PO DAILY PRN (Reason: constipation) Rx Instructions: 06/19/22 instructed by PCP to take 1/2 cap daily, may reduce to half cap three times per week if daily is too much Vancomycin 250 mg NEB BID 28 Days Qty: 280 12RF Rx Instructions: 250mg vancomycin in 5 cc of sterile water for nebulization To be given every other month for 28 consecutive days nystatin 100,000 unit/gram powder 1 applic topical BID Qty: 60 12RF finasteride 5 mg tablet 5 mg PO DAILY Qty: 90 3RF tamsulosin [Flomax] 0.4 mg capsule 0.4 mg PO DAILY Qty: 90 3RF acetylcysteine [NAC] 600 mg capsule 600 mg PO BID Qty: 60 12RF sertraline 50 mg tablet 50 mg PO DAILY Qty: 30 2RF Rx Instructions: decreased by PCP on 06/19/22 sulfamethoxazole-trimethoprim 200-40 mg/5 mL suspension 5 ml PO DAILY 28 Days Qty: 473 9RF Rx Instructions: Take daily for 4 weeks, then off for 4 weeks, etc melatonin 3 MG tablet 6 mg PO HS Align 4 mg Capsule 4 mg PO QPM ferrous sulfate [FeroSul] 325 mg (65 mg iron) tablet 325 mg PO DAILY Patient Comments: TAKE 1 TABLET VIA FEEDING TUBE ONCE DAILY Discharge Instructions Instructions: Head Injury Observation (DC), Subdural Hematoma (DC), Laceration Repair With Stitches ED Additional Instructions: please hold daily aspirin until cleared by neurosurgery you will need a repeat head CT and follow up in their clinic at [facility] in 2 weeks they should contact you with appointment time but if you do not here from them you can call: [phone]
--- NOTE | 2024-01-27 07:30 | DI.CT_ITS ---
Exam(s) CT HEAD WO EXAM: CT HEAD WO CLINICAL HISTORY: acute on chronic SDH, t-SAH, eval interval change. TECHNIQUE: Imaging Protocol: Axial computed tomography images with coronal and sagittal reformatted images were created and reviewed COMPARISON: CT CT HEAD WO from 09/09/[address] HEAD WO from 01/26/[address] HEAD WO from 01/27/2024 FINDINGS: Most recent prior examination is 01/27/2024 at 1:38 a.m.. Ventricles and Extra axial spaces: Normal in size and morphology for the patient's age. Hemorrhage: Since the most recent examination there has been no change in size of the acute bilateral subdural hematomas or left occipital subarachnoid hemorrhage. There underlying bilateral chronic sanchez bdural hematomas present. Cerebral parenchyma: Stable chronic microvascular ischemic disease. No acute territorial infarct. Midline shift: None. Brainstem/Cerebellum: Normal. Calvarium: Normal. 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 No acute abnormality. Visualized Paranasal sinuses/Mastoids: Clear. Soft Tissues: Left periorbital soft tissue swelling is stable. IMPRESSION: Stable size of the bilateral acute subdural hematomas and left occipital subarachnoid hemorrhage comp ared to the most recent examination from 01/27/2024 at 1:38 a.m.. RADIATION DOSE DELIVERED: Total DLP DATA REPOSITORY: All CT scans at this facility are submitted to the National Radiology Data Registry (NRDR) Dose Index Registry (DIR) with the [employer] (ACR). RADIATION OPTIMIZATION: All CT scans at this facility use at least one of these dose optimization te chniques: automated exposure control; mA and/or kV adjustment per patient size (includes targeted exa ms where dose is matched to clinical indication); or iterative reconstruction.
--- NOTE | 2024-01-27 09:10 | NUR.NOTE ---
Referral sent to care management for a [facility] neruo surgery follow up for a acute onchronic subdural in 2 weeks. Nursing Note:
== END 2024-01-27 08:32 | disposition home or self-care (01) ==
PROVIDERS: Registered Nurse Emergency; Emergency Provider Emergency Medicine; PCP Physician Assistant Medical
DX: S01.112A Laceration without foreign body of left eyelid and periocular area, initial encounter (principal); I62.01 Nontraumatic acute subdural hemorrhage; I62.02 Nontraumatic subacute subdural hemorrhage; W01.119A Fall on same level from slipping, tripping and stumbling with subsequent striking against unspecified sharp object, initial encounter
CPT/HCPCS: 00123; 12011; 80053; 96365; 96366; 99284; 70450; 85025; 85610; 85730; 99283; J1953; J2004

== ENCOUNTER 2024-02-04 15:15 | Emergency (ER) | payer MEDICARE, MEDICAID, SELFPAY ==
[2024-02-04 15:17] VITALS: BP 116/65; PULSE 76; RESP 16; TEMP 36.3; O2SAT 93
--- NOTE | 2024-02-04 15:53 | W.ED.GENAD ---
Discharge Plan Disposition Patient Disposition: Home Discharge Details Clinical Impression: Eyebrow laceration Primary Care Provider: Nazia Chan ED Provider: Carline Goodwin Home Meds and New Rx's Prescriptions: Continued ropinirole 1 mg tablet 1 mg PO BID aspirin [Adult Aspirin Regimen] 81 mg tablet,delayed release (DR/EC) 81 mg PO DAILY acetaminophen [Tylenol Extra Strength] 500 mg tablet 1,000 mg PO BID PRN omeprazole 20 mg capsule,delayed release(DR/EC) 20 mg feeding tube BID Qty: 90 4RF acetylcysteine 100 mg/mL (10 %) solution 4 ml inhalation BID losartan 25 mg tablet 25 mg PO DAILY metoprolol succinate 25 mg tablet extended release 24 hr 25 mg PO DAILY levothyroxine 88 mcg capsule 88 mcg PO DAILY gabapentin 300 mg capsule 300 mg PO QID Qty: 360 3RF rosuvastatin 40 mg tablet 40 mg feeding tube HS Qty: 90 4RF ipratropium-albuterol 0.5 mg-3 mg(2.5 mg base)/3 mL solution for nebulization 3 ml IN QID PRN (Reason: shortness of breath or wheezing) Qty: 90 4RF Rx Instructions: increased dose/use treatment 4 times/day as needed NOT SENT polyethylene glycol 3350 [Miralax] 17 gram/dose powder 17 g PO DAILY PRN (Reason: constipation) Rx Instructions: 06/19/22 instructed by PCP to take 1/2 cap daily, may reduce to half cap three times per week if daily is too much Vancomycin 250 mg NEB BID 28 Days Qty: 280 12RF Rx Instructions: 250mg vancomycin in 5 cc of sterile water for nebulization To be given every other month for 28 consecutive days nystatin 100,000 unit/gram powder 1 applic topical BID Qty: 60 12RF finasteride 5 mg tablet 5 mg PO DAILY Qty: 90 3RF tamsulosin [Flomax] 0.4 mg capsule 0.4 mg PO DAILY Qty: 90 3RF acetylcysteine [NAC] 600 mg capsule 600 mg PO BID Qty: 60 12RF sertraline 50 mg tablet 50 mg PO DAILY Qty: 30 2RF Rx Instructions: decreased by PCP on 06/19/22 sulfamethoxazole-trimethoprim 200-40 mg/5 mL suspension 5 ml PO DAILY 28 Days Qty: 473 9RF Rx Instructions: Take daily for 4 weeks, then off for 4 weeks, etc melatonin 3 MG tablet 6 mg PO HS Align 4 mg Capsule 4 mg PO QPM ferrous sulfate [FeroSul] 325 mg (65 mg iron) tablet 325 mg PO DAILY Patient Comments: TAKE 1 TABLET VIA FEEDING TUBE ONCE DAILY levetiracetam [Keppra] 500 mg tablet 500 mg PO BID 14 Days Qty: 28 0RF Rx Instructions: Take one tablet twice daily by mouth x 14 days Discharge Instructions Instructions: Laceration Repair With Glue ED Additional Instructions: Please follow-up with [facility] [place] as scheduled. Keep wound clean and dry. Wash daily antibacterial soap and water. No soaking. May cover with a bandage. Dermabond was applied to help with the scant oozing that occurred today. It will come off on its own, do not pull at it or apply any ointments on top. Return to care if you notice any signs of infection such as redness, swelling, pus draining, foul odor, or systemic symptoms such as fever/chills. HPI General Date/Time Provider Initiated Documentation: 02/04/24 15:16. HPI Narrative: Chan is a 79-year-old male with complex medical history presents to the emergency department today for suture removal. It is healing well, has been washing daily with soap and water, covering with a bandage. No fever/chills, unusual headache, pus drainage, foul odor, redness. According to previous emergency department visit, Chan tripped over a fan at home, hitting his head on 01/26/2024. He was diagnosed with an acute on chronic intracranial subdural hematoma and observed in the emergency department. He does have follow-up with [facility] [place] in a couple of days for reassessment. Physical exam remarkable for 2 inch healed laceration above left eyebrow, edges well-approximated. [address] (same as number placed on 01/26/24). There was scant bleeding when 1 suture was removed (controlled with pressure), area was cleansed with Betadine and Dermabond was applied to ensure no more oozing. Patient tolerated procedure well. Reviewed discharge instructions with patient and his , including importance of follow-up with [facility] [place] as scheduled and red flags indicate need for return to emergency care including infection. Related Data Home Medications ?Medication ?Instructions ?Recorded ?Confirmed omeprazole 20 mg capsule,delayed 20 mg feeding tube BID #90 caps 10/05/19 01/26/24 release melatonin 3 mg tablet 6 mg PO HS 10/29/19 01/26/24 rosuvastatin 40 mg tablet 40 mg feeding tube HS #90 tabs 12/14/19 01/26/24 acetylcysteine 100 mg/mL (10 %) 4 ml inhalation BID 07/05/20 01/26/24 solution ipratropium 0.5 mg-albuterol 3 mg 3 ml IN QID PRN shortness of 07/30/20 01/26/24 (2.5 mg base)/3 mL nebulization breath or wheezing #90 mL soln Bifidobacterium infantis 4 mg 4 mg PO QPM 08/03/21 01/26/24 capsule (Align) ferrous sulfate 325 mg (65 mg 325 mg PO DAILY 08/05/21 01/26/24 iron) tablet (FeroSul) aspirin 81 mg tablet,delayed 81 mg PO DAILY 11/25/21 01/26/24 release (Adult Aspirin Regimen) ropinirole 1 mg tablet 1 mg PO BID 01/07/22 01/26/24 acetaminophen 500 mg tablet 1,000 mg PO BID PRN 03/05/22 01/26/24 (Tylenol Extra Strength) polyethylene glycol 3350 17 17 g PO DAILY PRN constipation 06/19/22 01/26/24 gram/dose oral powder (Miralax) Vancomycin 250 mg NEB BID 28 days #280 mL 09/29/22 01/26/24 nystatin 100,000 unit/gram topical 1 applic topical BID #60 grams 02/19/23 01/26/24 powder finasteride 5 mg tablet 5 mg PO DAILY #90 tabs 04/16/23 01/26/24 tamsulosin 0.4 mg capsule (Flomax) 0.4 mg PO DAILY #90 caps 04/16/23 01/26/24 acetylcysteine 600 mg capsule (NAC) 600 mg PO BID #60 caps 07/28/23 01/26/24 levothyroxine 88 mcg capsule 88 mcg PO DAILY 09/02/23 01/26/24 losartan 25 mg tablet 25 mg PO DAILY 09/02/23 01/26/24 metoprolol succinate 25 mg 25 mg PO DAILY 09/02/23 01/26/24 tablet,extended release 24 hr gabapentin 300 mg capsule 300 mg PO QID #360 caps 10/29/23 01/26/24 sertraline 50 mg tablet 50 mg PO DAILY #30 tabs 12/09/23 01/26/24 sulfamethoxazole 200 5 ml PO DAILY 28 days #473 mL 01/13/24 01/26/24 mg-trimethoprim 40 mg/5 mL oral suspension levetiracetam 500 mg tablet 500 mg PO BID Subdural hematoma 14 01/26/24 (Keppra) days #28 tabs Previous Rx's ?Medication ?Instructions ?Recorded omeprazole 20 mg capsule,delayed 20 mg feeding tube BID #90 caps 10/05/19 release rosuvastatin 40 mg tablet 40 mg feeding tube HS #90 tabs 12/14/19 ipratropium 0.5 mg-albuterol 3 mg 3 ml IN QID PRN shortness of 07/30/20 (2.5 mg base)/3 mL nebulization breath or wheezing #90 mL soln Vancomycin 250 mg NEB BID 28 days #280 mL 09/29/22 nystatin 100,000 unit/gram topical 1 applic topical BID #60 grams 02/19/23 powder finasteride 5 mg tablet 5 mg PO DAILY #90 tabs 04/16/23 tamsulosin 0.4 mg capsule (Flomax) 0.4 mg PO DAILY #90 caps 04/16/23 acetylcysteine 600 mg capsule (NAC) 600 mg PO BID #60 caps 07/28/23 gabapentin 300 mg capsule 300 mg PO QID #360 caps 10/29/23 sertraline 50 mg tablet 50 mg PO DAILY #30 tabs 12/09/23 sulfamethoxazole 200 5 ml PO DAILY 28 days #473 mL 01/13/24 mg-trimethoprim 40 mg/5 mL oral suspension levetiracetam 500 mg tablet 500 mg PO BID Subdural hematoma 14 01/26/24 (Keppra) days #28 tabs Allergies Allergy/AdvReac Type Severity Reaction Status Date / Time pollen extracts Allergy Mild Wheezing Verified 02/04/24 15:21 Tetracyclines Allergy Unknown SKIN RASH Verified 02/04/24 15:21 General Stated Complaint: SutureRem CHER: 5 Review of Systems Narrative: see HPI Exam Const General: cooperative, comfortable, no acute distress and well groomed Nutritional Appearance: average body habitus Skin Trauma: laceration (Healed 2 inch laceration with sutures intact above left eyebrow) Course Vital Signs Vital signs: Vital Signs Temperature 36.3 C L 02/04/24 15:17 Pulse 76 02/04/24 15:17 Respiratory Rate 16 02/04/24 15:17 Blood Pressure 116/65 02/04/24 15:17 Pulse Oximetry 93 02/04/24 15:17 Temperature 36.3 C L 02/04/24 15:17 Temperature Source Oral 02/04/24 15:17 Pulse 76 02/04/24 15:17 Respiratory Rate 16 02/04/24 15:17 Respiratory Effort Normal 02/04/24 15:22 Blood Pressure 116/65 02/04/24 15:17 Blood Pressure Position Sitting 02/04/24 15:17 Pulse Oximetry 93 02/04/24 15:17 Oxygen Delivery Method Trach Collar 02/04/24 15:17 Oxygen Flow Rate 0 02/04/24 15:17 Pain Level 0 02/04/24 15:17 Medical Decision Making Quality:SDOH Health Related Social Needs: No Data to Display PFSH All Active Problems (Updated 02/04/24 @ 15:58 by Carline Sanon) Head injury due to trauma (Acute) Eyebrow laceration (Acute) Acute on chronic intracranial subdural hematoma (Acute) Orthostatic hypotension (Acute) Transient weakness of lower extremity (Acute) Right clavicle fracture (Acute 08/30/23) Syncope (Chronic) Ground glass opacity present on imaging of lung (Acute) Subdural hematoma (Acute) Pulmonary edema (Acute) Fracture of thumb, left, closed (Acute) Acute non-ST elevation myocardial infarction (NSTEMI) (Acute) Arm pain (Acute) Palliative care patient (Acute) Hemoptysis (Acute) Caregiver stress (Acute) Nausea & vomiting (Acute) Regurgitation of food (Acute) Pulmonary embolism (Chronic) Uses feeding tube (Acute) Gross hematuria (Acute) Ambulatory dysfunction (Acute) Leukocytosis (leucocytosis) (Acute) UTI (urinary tract infection) (Acute) Multiple subsegmental pulmonary emboli without acute cor pulmonale (Acute) C1 cervical fracture (Acute) Gastrostomy tube dysfunction (Acute) Advance care planning (Acute) Encounter for hospice care discussion (Acute) Unintentional weight loss of 10% body weight within 6 months (Acute) Dysuria (Acute) Malfunctioning jejunostomy tube (Acute) Need for follow-up by social science professor (Acute) Dysphagia (Acute) Weakness (Acute) Impaired instrumental activities of daily living (Acute) Plantar fascial fibromatosis (Acute) Feeding tube dysfunction (Acute) Sensorineural hearing loss (SNHL) of both ears (Acute) Otalgia of right ear (Acute) Neck pain on right side (Acute) Neck pain on right side (Acute) Full code status (Acute) Need for home health care (Acute) MRSA pneumonia (Acute) pt likely colonized Occlusion of right vertebral artery (Acute) Hypoxemia (Acute) Complication of feeding tube (Acute) Peripheral neuropathy (Acute 02/21/15) PAOD (peripheral arterial occlusive disease) (Acute) COPD (chronic obstructive pulmonary disease) (Chronic) G tube feedings (Acute) 20F 3.0cm 11/30/22. Routine change every 4 months. 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 Hypertension Tobacco use COPD (chronic obstructive pulmonary disease) Post herpetic neuralgia Hypothyroidism Hyperlipemia Depression Anxiety Anemia Conjunctivitis, chronic Surgical History S/P AAA (abdominal aortic aneurysm) repair Status post laryngectomy History of esophagogastroduodenoscopy (EGD) (~08/10/19) Daron Casper APRN @ [facility] [place]: hiatal hernia, GERD, Reyes's esophagitis, neuromuscular dysfunction History of laryngectomy Status post cardiac catheterization Status post cataract extraction and insertion of intraocular lens of right eye (07/12/18) History of tarsorrhaphy Status post cataract extraction and insertion of intraocular lens of left eye (04/30/12) 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 PROCEDURES RT/LEFT HEART CARD CATH COMPLETE LARYNGECTOMY Esophagoplasty EGD - MAC (07/06/17) Colonoscopy - MAC (12/22/16) History of radical laryngectomy Family History Nephew Throat cancer Maternal Cousin Cancer Social History Smoking/Tobacco Use Status: Former Tobacco Use Quit Date: 04/23/13 Tobacco: How many years used: 20 Smoking risk assessment performed?: Yes Alcohol Intake: never Drug use: Never Substance use type: does not use Housing: apartment Current gender identity: male Do you feel safe at home: Yes Do you feel safe in your relationship?: Yes
== END 2024-02-04 16:05 | disposition home or self-care (01) ==
PROVIDERS: Emergency Provider Nurse Practitioner Family; PCP Physician Assistant Medical
DX: Z48.02 Encounter for removal of sutures (principal)
CPT/HCPCS: 99283

== ENCOUNTER 2024-02-05 12:41 | Emergency (ER) | payer MEDICARE, MEDICAID, SELFPAY ==
[2024-02-05 12:43] VITALS: BP 147/67; PULSE 74; RESP 20; TEMP 36.2; O2SAT 95
[2024-02-05 14:03] VITALS: BP 108/72; PULSE 78; RESP 18; TEMP 36.4; O2SAT 93
--- NOTE | 2024-02-05 15:30 | ED.GENADUL_ITS ---
Discharge Plan Disposition Patient Disposition: Home Condition: Stable Discharge Details Clinical Impression: G tube feedings, Complication of feeding tube, Laryngeal cancer, Impaired instrumental activities of daily living, Need for follow-up by social media coordinator, Uses feeding tube, Acute non-ST elevation myocardial infarction (NSTEMI), COPD (chronic obstructive pulmonary disease) Primary Care Provider: Nazia Chan ED Provider: Brisa Titus Home Meds and New Rx's Prescriptions: No Action ropinirole 1 mg tablet 1 mg PO BID acetaminophen [Tylenol Extra Strength] 500 mg tablet 1,000 mg PO BID PRN omeprazole 20 mg capsule,delayed release(DR/EC) 20 mg feeding tube BID Qty: 90 4RF acetylcysteine 100 mg/mL (10 %) solution 4 ml inhalation BID losartan 25 mg tablet 25 mg PO DAILY metoprolol succinate 25 mg tablet extended release 24 hr 25 mg PO DAILY levothyroxine 88 mcg capsule 88 mcg PO DAILY gabapentin 300 mg capsule 300 mg PO QID Qty: 360 3RF rosuvastatin 40 mg tablet 40 mg feeding tube HS Qty: 90 4RF ipratropium-albuterol 0.5 mg-3 mg(2.5 mg base)/3 mL solution for nebulization 3 ml IN QID PRN (Reason: shortness of breath or wheezing) Qty: 90 4RF Rx Instructions: increased dose/use treatment 4 times/day as needed NOT SENT polyethylene glycol 3350 [Miralax] 17 gram/dose powder 17 g PO DAILY PRN (Reason: constipation) Rx Instructions: 06/19/22 instructed by PCP to take 1/2 cap daily, may reduce to half cap three times per week if daily is too much Vancomycin 250 mg NEB BID 28 Days Qty: 280 12RF Rx Instructions: 250mg vancomycin in 5 cc of sterile water for nebulization To be given every other month for 28 consecutive days nystatin 100,000 unit/gram powder 1 applic topical BID Qty: 60 12RF finasteride 5 mg tablet 5 mg PO DAILY Qty: 90 3RF tamsulosin [Flomax] 0.4 mg capsule 0.4 mg PO DAILY Qty: 90 3RF acetylcysteine [NAC] 600 mg capsule 600 mg PO BID Qty: 60 12RF sertraline 50 mg tablet 50 mg PO DAILY Qty: 30 2RF Rx Instructions: decreased by PCP on 06/19/22 sulfamethoxazole-trimethoprim 200-40 mg/5 mL suspension 5 ml PO DAILY 28 Days Qty: 473 9RF Rx Instructions: Take daily for 4 weeks, then off for 4 weeks, etc melatonin 3 MG tablet 6 mg PO HS Align 4 mg Capsule 4 mg PO QPM ferrous sulfate [FeroSul] 325 mg (65 mg iron) tablet 325 mg PO DAILY Patient Comments: TAKE 1 TABLET VIA FEEDING TUBE ONCE DAILY levetiracetam [Keppra] 500 mg tablet 500 mg PO BID 14 Days Qty: 28 0RF Rx Instructions: Take one tablet twice daily by mouth x 14 days Discharge Instructions Instructions: How to Care for Your Gastrostomy Tube Additional Instructions: You were seen in the emergency department today because your feeding tube became dislodged. In our department you have a full physical examination performed, your feeding tube was replaced with a Denny catheter as we do not have feeding tubes here in the emergency department to place. You received teaching on using the new equipment, but need to follow-up with your primary care coordinator and your [facility] providers to discuss getting a new feeding tube placed. Thank you for allowing us to be part of your care. HPI General Date/Time Provider Initiated Documentation: 02/05/24 12:50 . Limitations to Documentation: no limitations . Information obtained by: patient, family and old records reviewed . HPI Narrative: MDM: In brief, this is a 79-year-old male patient with displacement of his indwelling G-tube. My differential includes but is not limited to G-tube inadvertent removal, the skin around the site is at his baseline, though I certainly considered skin breakdown and cellulitis. The patient has had his G- tube for a long time and has a mature tract and I am less concerned with replacement and formation of a false tract in this patient's case. He is otherwise in his normal state of health and without acute complaint. ED Course: Unfortunately, we did not have access to a feeding tube, G-tube, or PEG tube at the emergency department or in our surgery center. For this reason, an 18 [place]ese Denny catheter was placed in the patient's stoma without resistance appreciated. The balloon was inflated with 5 cc of sterile water, and gastric sounds were auscultated when air was injected into the port. A three-way stopcock was inserted into the end to facilitate administration of tube feeds and medicines, and extensive teaching was performed by our nursing staff with the patient's family. I recommended strongly that they reach out to their provider to discuss scheduling a replacement of their tube, and suggested that they reach out to their medical supply company to obtain another tube. I referred them to care management to ensure that all of their outpatient needs were met. At this time, the patient has had a full medical evaluation and is safe for discharge to home. They are hemodynamically stable and tolerating PO. They are understanding of the follow-up plan and return precautions. They left our facility without incident. Brisa Titus MD HPI: This is a 79-year-old male patient with an extensive past medical history including laryngeal cancer, G-tube dependent, poor nutritional status, peripheral neuropathy, COPD, presenting for evaluation of G-tube removal. The patient was showering, and his G-tube was inadvertently removed. This happened a few hours prior to presentation at the emergency department. The family member reports that they did not have access to an alternative tube, prompting their presentation here. The patient has otherwise been in his normal state of health, he is not experiencing fevers, chills, illness, or injury. He utilizes his tubes for medications and tube feeds. Exam: Gen: Awake and alert, in no apparent distress HEENT: Non-icteric sclera Neck: Supple, speaks with a communication device Lungs: No apparent respiratory distress, normal respiratory effort. CV: Appears well perfused Abdomen: Non-distended, soft, G-tube stoma well-formed, with surrounding redness and mild skin breakdown but no induration or swelling concerning for cellulitis. MSK: Moves 4 extremities without apparent limitation in ROM Skin: Visualized skin without rashes, cyanosis. Neuro: No obvious focal deficits or facial asymmetry Psych: Appropriate for situation. Related Data Home Medications ?Medication ?Instructions ?Recorded ?Confirmed omeprazole 20 mg capsule,delayed 20 mg feeding tube BID #90 caps 10/05/19 02/05/24 release melatonin 3 mg tablet 6 mg PO HS 10/29/19 02/05/24 rosuvastatin 40 mg tablet 40 mg feeding tube HS #90 tabs 12/14/19 02/05/24 acetylcysteine 100 mg/mL (10 %) 4 ml inhalation BID 07/05/20 02/05/24 solution ipratropium 0.5 mg-albuterol 3 mg 3 ml IN QID PRN shortness of 07/30/20 02/05/24 (2.5 mg base)/3 mL nebulization breath or wheezing #90 mL soln Bifidobacterium infantis 4 mg 4 mg PO QPM 08/03/21 02/05/24 capsule (Align) ferrous sulfate 325 mg (65 mg 325 mg PO DAILY 08/05/21 02/05/24 iron) tablet (FeroSul) ropinirole 1 mg tablet 1 mg PO BID 01/07/22 02/05/24 acetaminophen 500 mg tablet 1,000 mg PO BID PRN 03/05/22 02/05/24 (Tylenol Extra Strength) polyethylene glycol 3350 17 17 g PO DAILY PRN constipation 06/19/22 02/05/24 gram/dose oral powder (Miralax) Vancomycin 250 mg NEB BID 28 days #280 mL 09/29/22 02/05/24 nystatin 100,000 unit/gram topical 1 applic topical BID #60 grams 02/19/23 02/05/24 powder finasteride 5 mg tablet 5 mg PO DAILY #90 tabs 04/16/23 02/05/24 tamsulosin 0.4 mg capsule (Flomax) 0.4 mg PO DAILY #90 caps 04/16/23 02/05/24 acetylcysteine 600 mg capsule (NAC) 600 mg PO BID #60 caps 07/28/23 02/05/24 levothyroxine 88 mcg capsule 88 mcg PO DAILY 09/02/23 02/05/24 losartan 25 mg tablet 25 mg PO DAILY 09/02/23 02/05/24 metoprolol succinate 25 mg 25 mg PO DAILY 09/02/23 02/05/24 tablet,extended release 24 hr gabapentin 300 mg capsule 300 mg PO QID #360 caps 10/29/23 02/05/24 sertraline 50 mg tablet 50 mg PO DAILY #30 tabs 12/09/23 02/05/24 sulfamethoxazole 200 5 ml PO DAILY 28 days #473 mL 01/13/24 02/05/24 mg-trimethoprim 40 mg/5 mL oral suspension levetiracetam 500 mg tablet 500 mg PO BID Subdural hematoma 14 01/26/24 02/05/24 (Keppra) days #28 tabs Previous Rx's ?Medication ?Instructions ?Recorded omeprazole 20 mg capsule,delayed 20 mg feeding tube BID #90 caps 10/05/19 release rosuvastatin 40 mg tablet 40 mg feeding tube HS #90 tabs 12/14/19 ipratropium 0.5 mg-albuterol 3 mg 3 ml IN QID PRN shortness of 07/30/20 (2.5 mg base)/3 mL nebulization breath or wheezing #90 mL soln Vancomycin 250 mg NEB BID 28 days #280 mL 09/29/22 nystatin 100,000 unit/gram topical 1 applic topical BID #60 grams 02/19/23 powder finasteride 5 mg tablet 5 mg PO DAILY #90 tabs 04/16/23 tamsulosin 0.4 mg capsule (Flomax) 0.4 mg PO DAILY #90 caps 04/16/23 acetylcysteine 600 mg capsule (NAC) 600 mg PO BID #60 caps 07/28/23 gabapentin 300 mg capsule 300 mg PO QID #360 caps 10/29/23 sertraline 50 mg tablet 50 mg PO DAILY #30 tabs 12/09/23 sulfamethoxazole 200 5 ml PO DAILY 28 days #473 mL 01/13/24 mg-trimethoprim 40 mg/5 mL oral suspension levetiracetam 500 mg tablet 500 mg PO BID Subdural hematoma 14 01/26/24 (Keppra) days #28 tabs Allergies Allergy/AdvReac Type Severity Reaction Status Date / Time pollen extracts Allergy Mild Wheezing Verified 02/04/24 15:21 Tetracyclines Allergy Unknown SKIN RASH Verified 02/04/24 15:21 General Stated Complaint: GenMedical CHER: 3 Course Vital Signs Vital signs: Vital Signs Temperature 36.2 C L 02/05/24 12:43 Pulse 74 02/05/24 12:43 Respiratory Rate 20 02/05/24 12:43 Blood Pressure 147/67 H 02/05/24 12:43 Pulse Oximetry 95 02/05/24 12:43 Temperature 36.4 C 02/05/24 14:03 Temperature Source Skin 02/05/24 14:03 Pulse 78 02/05/24 14:03 Respiratory Rate 18 02/05/24 14:03 Blood Pressure 108/72 02/05/24 14:03 Blood Pressure Mean 84 02/05/24 14:03 Blood Pressure Position Sitting 02/05/24 14:03 Pulse Oximetry 93 02/05/24 14:03 Oxygen Delivery Method Trach Collar 02/05/24 14:03 Oxygen Flow Rate 3 02/05/24 14:03 Medical Decision Making Quality:SDOH Health Related Social Needs: No Data to Display PFSH All Active Problems (Updated 02/05/24 @ 15:32 by Brisa Titus MD) Head injury due to trauma (Acute) Eyebrow laceration (Acute) Acute on chronic intracranial subdural hematoma (Acute) Orthostatic hypotension (Acute) Transient weakness of lower extremity (Acute) Right clavicle fracture (Acute 08/30/23) Syncope (Chronic) Ground glass opacity present on imaging of lung (Acute) Subdural hematoma (Acute) Pulmonary edema (Acute) Fracture of thumb, left, closed (Acute) Acute non-ST elevation myocardial infarction (NSTEMI) (Acute) Arm pain (Acute) Palliative care patient (Acute) Hemoptysis (Acute) Caregiver stress (Acute) Nausea & vomiting (Acute) Regurgitation of food (Acute) Pulmonary embolism (Chronic) Uses feeding tube (Acute) Gross hematuria (Acute) Ambulatory dysfunction (Acute) Leukocytosis (leucocytosis) (Acute) UTI (urinary tract infection) (Acute) Multiple subsegmental pulmonary emboli without acute cor pulmonale (Acute) C1 cervical fracture (Acute) Gastrostomy tube dysfunction (Acute) Advance care planning (Acute) Encounter for hospice care discussion (Acute) Unintentional weight loss of 10% body weight within 6 months (Acute) Dysuria (Acute) Malfunctioning jejunostomy tube (Acute) Need for follow-up by social media coordinator (Acute) Dysphagia (Acute) Weakness (Acute) Impaired instrumental activities of daily living (Acute) Plantar fascial fibromatosis (Acute) Feeding tube dysfunction (Acute) Sensorineural hearing loss (SNHL) of both ears (Acute) Otalgia of right ear (Acute) Neck pain on right side (Acute) Neck pain on right side (Acute) Full code status (Acute) Need for home health care (Acute) MRSA pneumonia (Acute) pt likely colonized Occlusion of right vertebral artery (Acute) Hypoxemia (Acute) Complication of feeding tube (Acute) Peripheral neuropathy (Acute 02/21/15) PAOD (peripheral arterial occlusive disease) (Acute) Laryngeal cancer (Acute) COPD (chronic obstructive pulmonary disease) (Chronic) G tube feedings (Acute) 20F 3.0cm 11/30/22. Routine change every 4 months. 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 Hypertension Tobacco use COPD (chronic obstructive pulmonary disease) Post herpetic neuralgia Hypothyroidism Hyperlipemia Depression Anxiety Anemia Conjunctivitis, chronic Surgical History S/P AAA (abdominal aortic aneurysm) repair Status post laryngectomy History of esophagogastroduodenoscopy (EGD) (~08/10/19) Daron Casper APRN [place] [facility] [place] hiatal her[place], GERD, Reyes's esophagitis, neuromuscular dysfunction History of laryngectomy Status post cardiac catheterization Status post cataract extraction and insertion of intraocular lens of right eye (07/12/18) History of tarsorrhaphy Status post cataract extraction and insertion of intraocular lens of left eye (04/30/12) 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) Sin-mullins button placed by Dr Elia Mcdonald, [facility] PROCEDURES RT/LEFT HEART CARD CATH COMPLETE LARYNGECTOMY Esophagoplasty EGD - MAC (07/06/17) Colonoscopy - MAC (12/22/16) History of radical laryngectomy Family History Nephew Throat cancer Maternal Cousin Cancer Social History Smoking/Tobacco Use Status: Former Tobacco Use Quit Date: 04/23/13 Tobacco: How many years used: 20 Smoking risk assessment performed?: Yes Alcohol Intake: never Drug use: Never Substance use type: does not use Housing: apartment Current gender identity: male Do you feel safe at home: Yes Do you feel safe in your relationship?: Yes
--- NOTE | 2024-02-05 15:33 | NUR.NOTE ---
Nursing Note:PT needs follow up with [facility] [place] for feeding tube. Danni, KISHOR
[2024-02-05 15:37] VITALS: BP 119/65; PULSE 81; TEMP 36.3; O2SAT 97
== END 2024-02-05 15:32 | disposition home or self-care (01) ==
PROVIDERS: Emergency Provider Emergency Medicine; PCP Physician Assistant Medical
DX: K94.23 Gastrostomy malfunction (principal); I25.10 Atherosclerotic heart disease of native coronary artery without angina pectoris; I10 Essential (primary) hypertension; E78.5 Hyperlipidemia, unspecified; J44.9 Chronic obstructive pulmonary disease, unspecified; I25.2 Old myocardial infarction; Z87.891 Personal history of nicotine dependence
CPT/HCPCS: 99283

== ENCOUNTER 2024-02-17 08:48 | Emergency (ER) | payer MEDICARE, MEDICAID, SELFPAY ==
[2024-02-17 09:08] VITALS: BP 123/65; PULSE 66; RESP 16; TEMP 36.4; O2SAT 91
--- NOTE | 2024-02-17 15:39 | W.ED.GENAD ---
Discharge Plan Disposition Patient Disposition: Home Condition: Stable Discharge Details Clinical Impression: Feeding tube dysfunction Primary Care Provider: Nazia Chan ED Provider: Antonina Dowling Home Meds and New Rx's Prescriptions: Continued ropinirole 1 mg tablet 1 mg PO BID acetaminophen [Tylenol Extra Strength] 500 mg tablet 1,000 mg PO BID PRN omeprazole 20 mg capsule,delayed release(DR/EC) 20 mg feeding tube BID Qty: 90 4RF acetylcysteine 100 mg/mL (10 %) solution 4 ml inhalation BID losartan 25 mg tablet 25 mg PO DAILY metoprolol succinate 25 mg tablet extended release 24 hr 25 mg PO DAILY levothyroxine 88 mcg capsule 88 mcg PO DAILY gabapentin 300 mg capsule 300 mg PO QID Qty: 360 3RF rosuvastatin 40 mg tablet 40 mg feeding tube HS Qty: 90 4RF ipratropium-albuterol 0.5 mg-3 mg(2.5 mg base)/3 mL solution for nebulization 3 ml IN QID PRN (Reason: shortness of breath or wheezing) Qty: 90 4RF Rx Instructions: increased dose/use treatment 4 times/day as needed NOT SENT polyethylene glycol 3350 [Miralax] 17 gram/dose powder 17 g PO DAILY PRN (Reason: constipation) Rx Instructions: 06/19/22 instructed by PCP to take 1/2 cap daily, may reduce to half cap three times per week if daily is too much Vancomycin 250 mg NEB BID 28 Days Qty: 280 12RF Rx Instructions: 250mg vancomycin in 5 cc of sterile water for nebulization To be given every other month for 28 consecutive days nystatin 100,000 unit/gram powder 1 applic topical BID Qty: 60 12RF finasteride 5 mg tablet 5 mg PO DAILY Qty: 90 3RF tamsulosin [Flomax] 0.4 mg capsule 0.4 mg PO DAILY Qty: 90 3RF acetylcysteine [NAC] 600 mg capsule 600 mg PO BID Qty: 60 12RF sertraline 50 mg tablet 50 mg PO DAILY Qty: 30 2RF Rx Instructions: decreased by PCP on 06/19/22 sulfamethoxazole-trimethoprim 200-40 mg/5 mL suspension 5 ml PO DAILY 28 Days Qty: 473 9RF Rx Instructions: Take daily for 4 weeks, then off for 4 weeks, etc melatonin 3 MG tablet 6 mg PO HS levetiracetam 500 mg tablet 500 mg PO DAILY Patient Comments: TAKE ONE TABLET BY MOUTH TWICE A DAY losartan 50 mg tablet 50 mg PO DAILY Patient Comments: TAKE ONE TABLET BY MOUTH EVERY DAY Align 4 mg Capsule 4 mg PO QPM ferrous sulfate [FeroSul] 325 mg (65 mg iron) tablet 325 mg PO DAILY Patient Comments: TAKE 1 TABLET VIA FEEDING TUBE ONCE DAILY Discharge Instructions Additional Instructions: continue with your typical usage of feeding tube return earlier with new or worsening complaints Referrals: Nazia Chna [Primary Care Provider] - Discharge Data Discharge Date/Time-TO BE ENTERED AT DEPARTURE: 02/17/24 09:59 HPI General Date/Time Provider Initiated Documentation: 02/17/24 09:01. HPI Narrative: This 79-year-old chronically unwell man presents with report of G-tube malfunction. Had become dislodged and is having difficulty replacing it. Patient denies any additional complaints at this time. Related Data Home Medications ?Medication ?Instructions ?Recorded ?Confirmed omeprazole 20 mg capsule,delayed 20 mg feeding tube BID #90 caps 10/05/19 02/17/24 release melatonin 3 mg tablet 6 mg PO HS 10/29/19 02/17/24 rosuvastatin 40 mg tablet 40 mg feeding tube HS #90 tabs 12/14/19 02/17/24 acetylcysteine 100 mg/mL (10 %) 4 ml inhalation BID 07/05/20 02/17/24 solution ipratropium 0.5 mg-albuterol 3 mg 3 ml IN QID PRN shortness of 07/30/20 02/17/24 (2.5 mg base)/3 mL nebulization breath or wheezing #90 mL soln Bifidobacterium infantis 4 mg 4 mg PO QPM 08/03/21 02/17/24 capsule (Align) ferrous sulfate 325 mg (65 mg 325 mg PO DAILY 08/05/21 02/17/24 iron) tablet (FeroSul) ropinirole 1 mg tablet 1 mg PO BID 01/07/22 02/17/24 acetaminophen 500 mg tablet 1,000 mg PO BID PRN 03/05/22 02/17/24 (Tylenol Extra Strength) polyethylene glycol 3350 17 17 g PO DAILY PRN constipation 06/19/22 02/17/24 gram/dose oral powder (Miralax) Vancomycin 250 mg NEB BID 28 days #280 mL 04/17/23 09/04/24 nystatin 100,000 unit/gram topical 1 applic topical BID #60 grams 02/19/23 02/17/24 powder finasteride 5 mg tablet 5 mg PO DAILY #90 tabs 04/16/23 02/17/24 tamsulosin 0.4 mg capsule (Flomax) 0.4 mg PO DAILY #90 caps 04/16/23 02/17/24 acetylcysteine 600 mg capsule (NAC) 600 mg PO BID #60 caps 07/28/23 02/17/24 levothyroxine 88 mcg capsule 88 mcg PO DAILY 09/02/23 02/17/24 losartan 25 mg tablet 25 mg PO DAILY 09/02/23 02/17/24 metoprolol succinate 25 mg 25 mg PO DAILY 09/02/23 02/17/24 tablet,extended release 24 hr gabapentin 300 mg capsule 300 mg PO QID #360 caps 10/29/23 02/17/24 sertraline 50 mg tablet 50 mg PO DAILY #30 tabs 12/09/23 02/17/24 sulfamethoxazole 200 5 ml PO DAILY 28 days #473 mL 01/13/24 02/17/24 mg-trimethoprim 40 mg/5 mL oral suspension levetiracetam 500 mg tablet 500 mg PO DAILY 02/17/24 02/17/24 losartan 50 mg tablet 50 mg PO DAILY 02/17/24 02/17/24 Previous Rx's ?Medication ?Instructions ?Recorded omeprazole 20 mg capsule,delayed 20 mg feeding tube BID #90 caps 10/05/19 release rosuvastatin 40 mg tablet 40 mg feeding tube HS #90 tabs 12/14/19 ipratropium 0.5 mg-albuterol 3 mg 3 ml IN QID PRN shortness of 07/30/20 (2.5 mg base)/3 mL nebulization breath or wheezing #90 mL soln Vancomycin 250 mg NEB BID 28 days #280 mL 09/29/22 nystatin 100,000 unit/gram topical 1 applic topical BID #60 grams 02/19/23 powder finasteride 5 mg tablet 5 mg PO DAILY #90 tabs 04/16/23 tamsulosin 0.4 mg capsule (Flomax) 0.4 mg PO DAILY #90 caps 04/16/23 acetylcysteine 600 mg capsule (NAC) 600 mg PO BID #60 caps 07/28/23 gabapentin 300 mg capsule 300 mg PO QID #360 caps 10/29/23 sertraline 50 mg tablet 50 mg PO DAILY #30 tabs 12/09/23 sulfamethoxazole 200 5 ml PO DAILY 28 days #473 mL 01/13/24 mg-trimethoprim 40 mg/5 mL oral suspension Allergies Allergy/AdvReac Type Severity Reaction Status Date / Time pollen extracts Allergy Mild Wheezing Verified 02/17/24 09:13 Tetracyclines Allergy Unknown SKIN RASH Verified 02/17/24 09:13 General Stated Complaint: GenMedical CHER: 5 Exam Narrative Exam Narrative: Chronically unwell appearing 79-year-old male in no acute distress with stopcock in place on G-tube no acute distress Course Vital Signs Vital signs: Vital Signs Temperature 36.4 C 02/17/24 09:08 Pulse 66 02/17/24 09:08 Respiratory Rate 16 02/17/24 09:08 Blood Pressure 123/65 02/17/24 09:08 Pulse Oximetry 91 L 02/17/24 09:08 Temperature 36.4 C 02/17/24 09:08 Temperature Source Temporal Artery Scan 02/17/24 09:08 Pulse 66 02/17/24 09:08 Respiratory Rate 16 02/17/24 09:08 Respiratory Effort Normal 02/17/24 09:12 Blood Pressure 123/65 02/17/24 09:08 Blood Pressure Position Sitting 02/17/24 09:08 Pulse Oximetry 91 L 02/17/24 09:08 Oxygen Delivery Method Room Air 02/17/24 09:08 Oxygen Flow Rate 0 02/17/24 09:08 Pain Level 0 02/17/24 09:08 Medical Decision Making 71-year-old male presenting with due to malfunction. Stopcock was successfully replaced and G-tube is now functional. Patient discharged home in stable condition with stable vitals Quality:SDOH Health Related Social Needs: No Data to Display PFSH All Active Problems (Updated 02/17/24 @ 09:52 by MARC Dennis) Feeding tube dysfunction (Acute) Head injury due to trauma (Acute) Eyebrow laceration (Acute) Acute on chronic intracranial subdural hematoma (Acute) Orthostatic hypotension (Acute) Right clavicle fracture (Acute 08/30/23) Syncope (Chronic) Ground glass opacity present on imaging of lung (Acute) Subdural hematoma (Acute) Pulmonary edema (Acute) Fracture of thumb, left, closed (Acute) Acute non-ST elevation myocardial infarction (NSTEMI) (Acute) Arm pain (Acute) Palliative care patient (Acute) Hemoptysis (Acute) Caregiver stress (Acute) Nausea & vomiting (Acute) Regurgitation of food (Acute) Pulmonary embolism (Chronic) Uses feeding tube (Acute) Gross hematuria (Acute) Ambulatory dysfunction (Acute) Leukocytosis (leucocytosis) (Acute) UTI (urinary tract infection) (Acute) Multiple subsegmental pulmonary emboli without acute cor pulmonale (Acute) C1 cervical fracture (Acute) Gastrostomy tube dysfunction (Acute) Advance care planning (Acute) Encounter for hospice care discussion (Acute) Unintentional weight loss of 10% body weight within 6 months (Acute) Dysuria (Acute) Malfunctioning jejunostomy tube (Acute) Need for follow-up by social worker aide (Acute) Dysphagia (Acute) Weakness (Acute) Impaired instrumental activities of daily living (Acute) Plantar fascial fibromatosis (Acute) Feeding tube dysfunction (Acute) Sensorineural hearing loss (SNHL) of both ears (Acute) Otalgia of right ear (Acute) Neck pain on right side (Acute) Neck pain on right side (Acute) Full code status (Acute) Need for home health care (Acute) MRSA pneumonia (Acute) pt likely colonized Occlusion of right vertebral artery (Acute) Hypoxemia (Acute) Complication of feeding tube (Acute) Peripheral neuropathy (Acute 02/21/15) PAOD (peripheral arterial occlusive disease) (Acute) Laryngeal cancer (Acute) COPD (chronic obstructive pulmonary disease) (Chronic) G tube feedings (Acute) 20F 3.0cm 11/30/22. Routine change every 4 months. 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 Hypertension Tobacco use COPD (chronic obstructive pulmonary disease) Post herpetic neuralgia Hypothyroidism Hyperlipemia Depression Anxiety Anemia Conjunctivitis, chronic Surgical History S/P AAA (abdominal aortic aneurysm) repair Status post laryngectomy History of esophagogastroduodenoscopy (EGD) (~08/10/19) Daron Casper APRN @ [facility] [place]: hiatal hernia, GERD, Reyes's esophagitis, neuromuscular dysfunction History of laryngectomy Status post cardiac catheterization Status post cataract extraction and insertion of intraocular lens of right eye (07/12/18) History of tarsorrhaphy Status post cataract extraction and insertion of intraocular lens of left eye (04/30/12) 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) Sin-mullins button placed by Dr Elai Mcdonald, [facility] PROCEDURES RT/LEFT HEART CARD CATH COMPLETE LARYNGECTOMY Esophagoplasty EGD - MAC (07/06/17) Colonoscopy - MAC (12/22/16) History of radical laryngectomy Family History Nephew Throat cancer Maternal Cousin Cancer Social History Smoking/Tobacco Use Status: Former Tobacco Use Quit Date: 04/23/13 Tobacco: How many years used: 20 Smoking risk assessment performed?: Yes Alcohol Intake: never Drug use: Never Substance use type: does not use Housing: apartment Current gender identity: male Do you feel safe at home: Yes Do you feel safe in your relationship?: Yes
== END 2024-02-17 09:59 | disposition home or self-care (01) ==
PROVIDERS: Emergency Provider Physician Assistant; PCP Physician Assistant Medical
DX: T85.598A Other mechanical complication of other gastrointestinal prosthetic devices, implants and grafts, initial encounter (principal)
CPT/HCPCS: 99281; 99282

== ENCOUNTER → 2024-03-02 14:30 | Outpatient (BNVA) | payer MEDICARE, MEDICAID, SELFPAY | PROVIDERS: PCP Physician Assistant Medical; Visit Provider Nurse Practitioner Gerontology | DX: R31.0 Gross hematuria (principal); N40.1 Benign prostatic hyperplasia with lower urinary tract symptoms; N13.8 Other obstructive and reflux uropathy | CPT/HCPCS: 51798; 99213 ==

== ENCOUNTER 2024-03-04 00:52 | Outpatient (CLI) | payer MEDICARE, MEDICAID, SELFPAY ==
--- NOTE | 2024-03-04 16:19 | DI.CT_ITS ---
Exam(s) CT HEAD WO EXAM: CT HEAD WO CLINICAL HISTORY: F/U TRAUMATIC SUBDURAL HEMATOMA,S06.5XOD,EVALUATE FOR CHANGE. TECHNIQUE: Imaging Protocol: Axial computed tomography images with coronal and sagittal reformatted images were created and reviewed COMPARISON: CT CT HEAD WO from 01/26/[address] HEAD WO from 01/27/[address] HEAD WO from 01/27/[address] HEAD WO CONTRAST (GENERIC) from 02/10/2024 FINDINGS: There are no skull fractures. 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 No fluid in the paranasal sinuses. Again noted are bilateral subdural hematomas over both convexities. When compared to the most recent CT scan of 02/10/2024 ([facility] [place] the size of the left convexity subdural hematoma is relatively stable although there is some hyperdense blood again noted within the more po sterior aspect this extra-axial collection implying that there most probably has been some rebleeding . Maximum thickness of the left subdural collection is approximately 13 mm. The size of the right convexity collection is minimally more prominent. There is a thin strip of per ipheral hyperdensity over the right parietal lobe region which indicates some more acute blood in the right-sided collection. There is no prominent sulcal effacement on either side. No shift of midline structures. Ventricular size is unchanged. 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 No new territorial infarct e vident. IMPRESSION: Bilateral subdural hematomas again noted. There is slight increase in size of the right subdural col lection and relative stable size of the left although there is some hyperdense blood in both collecti ons. No shift of midline structures. No change in size of the ventricles. No blood within the vent ricular system. No new infarcts. RADIATION DOSE DELIVERED: 956.95mGy.cm Total DLP DATA REPOSITORY: All CT scans at this facility are submitted to the National Radiology Data Registry (NRDR) Dose Index Registry (DIR) with the [employer] ([employer]). RADIATION OPTIMIZATION: All CT scans at this facility use at least one of these dose optimization te chniques: automated exposure control; mA and/or kV adjustment per patient size (includes targeted exa ms where dose is matched to clinical indication); or iterative reconstruction.
== END 2024-03-04 01:12 ==
LOC: DI 00:52
PROVIDERS: PCP Physician Assistant Medical; Visit Provider Occupational Therapist
DX: S06.5X0D Traumatic subdural hemorrhage without loss of consciousness, subsequent encounter (principal); X58.XXXD Exposure to other specified factors, subsequent encounter
CPT/HCPCS: 70450

== ENCOUNTER 2024-03-06 11:08 | Emergency (ER) | payer MEDICARE, MEDICAID, SELFPAY ==
[2024-03-06 11:24] VITALS: PULSE 64; RESP 18; TEMP 37; O2SAT 90
--- NOTE | 2024-03-06 11:52 | DI.RAD_ITS ---
Exam(s) XR FOOT RT COMPLETE EXAM: XR FOOT RT COMPLETE CLINICAL HISTORY: R foot/toe pain. TECHNIQUE: 2D digital imaging was performed. COMPARISON: CR XR TOE LT GREAT from 04/20/2019 FINDINGS: 3 views No evidence of acute fracture or diastasis of the Lisfranc joint. There are flexion deformities of a ll 5 toes evident. Metatarsophalangeal joints appear unremarkable. No pes planus. Mild degenerativ e changes. No osseous lesions. No radiopaque foreign bodies. No evidence of osteomyelitis. IMPRESSION: Findings as above but no acute osseous findings. DATA REPOSITORY: RADIATION DOSE DELIVERED:
--- NOTE | 2024-03-06 12:03 | ED.GENADUL_ITS ---
Discharge Plan Disposition Patient Disposition: Home Condition: Stable Discharge Details Clinical Impression: Pain in right foot Primary Care Provider: Nazia Chan ED Provider: Francisco Phillips Home Meds and New Rx's Prescriptions: Continued ropinirole 1 mg tablet 1 mg PO BID acetaminophen [Tylenol Extra Strength] 500 mg tablet 1,000 mg PO BID PRN tamsulosin [Flomax] 0.4 mg capsule 0.4 mg PO DAILY Qty: 90 3RF finasteride 5 mg tablet 5 mg PO DAILY Qty: 90 3RF omeprazole 20 mg capsule,delayed release(DR/EC) 20 mg feeding tube BID Qty: 90 4RF acetylcysteine 100 mg/mL (10 %) solution 4 ml inhalation BID losartan 25 mg tablet 25 mg PO DAILY metoprolol succinate 25 mg tablet extended release 24 hr 25 mg PO DAILY levothyroxine 88 mcg capsule 88 mcg PO DAILY gabapentin 300 mg capsule 300 mg PO QID Qty: 360 3RF sertraline 50 mg tablet 50 mg PO DAILY Qty: 30 4RF rosuvastatin 40 mg tablet 40 mg feeding tube HS Qty: 90 4RF ipratropium-albuterol 0.5 mg-3 mg(2.5 mg base)/3 mL solution for nebulization 3 ml IN QID PRN (Reason: shortness of breath or wheezing) Qty: 90 4RF Rx Instructions: increased dose/use treatment 4 times/day as needed NOT SENT polyethylene glycol 3350 [Miralax] 17 gram/dose powder 17 g PO DAILY PRN (Reason: constipation) Rx Instructions: 06/19/22 instructed by PCP to take 1/2 cap daily, may reduce to half cap three times per week if daily is too much Vancomycin 250 mg NEB BID 28 Days Qty: 280 12RF Rx Instructions: 250mg vancomycin in 5 cc of sterile water for nebulization To be given every other month for 28 consecutive days nystatin 100,000 unit/gram powder 1 applic topical BID Qty: 60 12RF acetylcysteine [NAC] 600 mg capsule 600 mg PO BID Qty: 60 12RF sulfamethoxazole-trimethoprim 200-40 mg/5 mL suspension 5 ml PO DAILY 28 Days Qty: 473 9RF Rx Instructions: Take daily for 4 weeks, then off for 4 weeks, etc melatonin 3 MG tablet 6 mg PO HS levetiracetam 500 mg tablet 500 mg PO DAILY Patient Comments: TAKE ONE TABLET BY MOUTH TWICE A DAY losartan 50 mg tablet 50 mg PO DAILY Patient Comments: TAKE ONE TABLET BY MOUTH EVERY DAY Align 4 mg Capsule 4 mg PO QPM ferrous sulfate [FeroSul] 325 mg (65 mg iron) tablet 325 mg PO DAILY Patient Comments: TAKE 1 TABLET VIA FEEDING TUBE ONCE DAILY Discharge Instructions Instructions: Muscle and Bone Pain (DC) Additional Instructions: You were seen in the emergency department for your fall you hit your right foot and toes, I do not see any fracture on x-ray but your pain is significant enough and we discussed how our radiology reads were quite delayed here I am sending you home in a cast shoe, please rest, ice, compress and elevate the foot often, take adequate dosing of Tylenol and ibuprofen if you tolerate those medicines, follow-up with orthopedics for failure to improve in 2 to 3 weeks or return for signs of infection at your minor abrasion sites like increasing redness swelling, red streaking up the leg, purulent drainage from the area. Referrals: [facility] [Provider Group] Nazia Chan [Primary Care Provider] - [facility] General Date/Time Provider Initiated Documentation: 03/06/24 11:30 . HPI Narrative: 79 year-old male presents to ED today by POV/ambulating with a chief complaint of fall 2 days ago stubbing his R toes. Patient is chronically wheelchair bound. Quality described as pain in the forefoot, no radiation to active bleeding, endorses mild abrasions and bruising to toes, denies ankle pain or leg pain. Severity is described as moderate. Palliating factors include nothing specific attempted. Provoking factors include nothing specific. Patient not anticoagulated. Related Data Home Medications ?Medication ?Instructions ?Recorded ?Confirmed omeprazole 20 mg capsule,delayed 20 mg feeding tube BID #90 caps 10/05/19 03/06/24 release melatonin 3 mg tablet 6 mg PO HS 10/29/19 03/06/24 rosuvastatin 40 mg tablet 40 mg feeding tube HS #90 tabs 12/14/19 03/06/24 acetylcysteine 100 mg/mL (10 %) 4 ml inhalation BID 07/05/20 03/06/24 solution ipratropium 0.5 mg-albuterol 3 mg 3 ml IN QID PRN shortness of 07/30/20 03/06/24 (2.5 mg base)/3 mL nebulization breath or wheezing #90 mL soln Bifidobacterium infantis 4 mg 4 mg PO QPM 08/03/21 03/06/24 capsule (Align) ferrous sulfate 325 mg (65 mg 325 mg PO DAILY 08/05/21 03/06/24 iron) tablet (FeroSul) ropinirole 1 mg tablet 1 mg PO BID 01/07/22 03/06/24 acetaminophen 500 mg tablet 1,000 mg PO BID PRN 03/05/22 03/06/24 (Tylenol Extra Strength) polyethylene glycol 3350 17 17 g PO DAILY PRN constipation 06/19/22 03/06/24 gram/dose oral powder (Miralax) Vancomycin 250 mg NEB BID 28 days #280 mL 09/29/22 03/06/24 nystatin 100,000 unit/gram topical 1 applic topical BID #60 grams 02/19/23 03/06/24 powder acetylcysteine 600 mg capsule (NAC) 600 mg PO BID #60 caps 07/28/23 03/06/24 levothyroxine 88 mcg capsule 88 mcg PO DAILY 09/02/23 03/06/24 losartan 25 mg tablet 25 mg PO DAILY 09/02/23 03/06/24 metoprolol succinate 25 mg 25 mg PO DAILY 09/02/23 03/06/24 tablet,extended release 24 hr gabapentin 300 mg capsule 300 mg PO QID #360 caps 10/29/23 03/06/24 sulfamethoxazole 200 5 ml PO DAILY 28 days #473 mL 01/13/24 03/06/24 mg-trimethoprim 40 mg/5 mL oral suspension levetiracetam 500 mg tablet 500 mg PO DAILY 02/17/24 03/06/24 losartan 50 mg tablet 50 mg PO DAILY 02/17/24 03/06/24 sertraline 50 mg tablet 50 mg PO DAILY #30 tabs 02/23/24 03/06/24 finasteride 5 mg tablet 5 mg PO DAILY #90 tabs 03/02/24 03/06/24 tamsulosin 0.4 mg capsule (Flomax) 0.4 mg PO DAILY #90 caps 03/02/24 03/06/24 Previous Rx's ?Medication ?Instructions ?Recorded omeprazole 20 mg capsule,delayed 20 mg feeding tube BID #90 caps 10/05/19 release rosuvastatin 40 mg tablet 40 mg feeding tube HS #90 tabs 12/14/19 ipratropium 0.5 mg-albuterol 3 mg 3 ml IN QID PRN shortness of 07/30/20 (2.5 mg base)/3 mL nebulization breath or wheezing #90 mL soln Vancomycin 250 mg NEB BID 28 days #280 mL 09/29/22 nystatin 100,000 unit/gram topical 1 applic topical BID #60 grams 02/19/23 powder acetylcysteine 600 mg capsule (NAC) 600 mg PO BID #60 caps 07/28/23 gabapentin 300 mg capsule 300 mg PO QID #360 caps 10/29/23 sulfamethoxazole 200 5 ml PO DAILY 28 days #473 mL 01/13/24 mg-trimethoprim 40 mg/5 mL oral suspension sertraline 50 mg tablet 50 mg PO DAILY #30 tabs 02/23/24 finasteride 5 mg tablet 5 mg PO DAILY #90 tabs 03/02/24 tamsulosin 0.4 mg capsule (Flomax) 0.4 mg PO DAILY #90 caps 03/02/24 Allergies Allergy/AdvReac Type Severity Reaction Status Date / Time pollen extracts Allergy Mild Wheezing Verified 03/06/24 11:28 Tetracyclines Allergy Unknown SKIN RASH Verified 03/06/24 11:28 General Stated Complaint: Orthopedic CHER: 4 Review of Systems All systems reviewed & are unremarkable except as noted in HPI and below Exam Narrative Exam Narrative: GENERAL APPEARANCE: Well-nourished, non-toxic, awake and alert, atraumatic, no acute distress. SKIN: Warm, pink, dry, intact, without rashes/lesions/ulcerations. HEAD: Normocephalic, atraumatic, normal hair distribution for gender/age. EYES: Normal conjunctiva, no exudates on lids/lashes. ENT: Nares patent, no circumoral cyanosis, no facial swelling NECK: Supple, trachea midline, painless cervical ROM. LUNGS/CHEST: Non-labored respirations, normal A/P diameter, symmetrical expansion, no chest wall deformity HEART (CV/PV): Regular rate, R dorsalis pedis pulse 2+, no peripheral edema, no JVD. ABDOMEN: Soft, non-distended, no guarding. MSK: Normal ROM, no swelling/deformity to bilateral UEs or LEs, moving all extremities without weakness, no cyanosis, spine midline without tenderness, normal curvature. R LE: minor abrasions to the dorsum of the right foot, chronic flexed deformities of toes diffusely, mild ecchymotic changes to the lateral toes, patient states focally more tender at the base of the great toe without any crepitus or severe swelling, right dorsalis pedis pulse 2+, able to plantar/do rsiflex foot NEURO: Mental Status AAOx4 - alert to person, place, time, events No facial droop, no forehead involvement. Motor: No focal weakness - strength 5/5 in bilateral UEs and LEs, proximal and distal, symmetric. Sensory: sensation intact to light touch globally. Gait NT, in wheelchair PSYCH: euthymic, cooperative, pleasant, appropriate speech Course Vital Signs Vital signs: Vital Signs Temperature 37.0 C 03/06/24 11:24 Pulse 64 03/06/24 11:24 Respiratory Rate 18 03/06/24 11:24 Pulse Oximetry 90 L 03/06/24 11:24 Temperature 37.0 C 03/06/24 11:24 Pulse 64 03/06/24 11:24 Respiratory Rate 18 03/06/24 11:24 Pulse Oximetry 90 L 03/06/24 11:24 Pain Level 8 03/06/24 11:24 Medical Decision Making This dictation utilizes [id number] dictation software and may contain unedited grammatical errors. 79 year-old male presents to ED today by POV/ambulating with a chief complaint of fall 2 days ago stubbing his R toes. Patient is chronically wheelchair bound. Quality described as pain in the forefoot, no radiation to active bleeding, endorses mild abrasions and bruising to toes, denies ankle pain or leg pain. Severity is described as moderate. Palliating factors include nothing specific attempted. Provoking factors include nothing specific. Patients' medical history: complex, but noncontributory to todays complaint. Family and social history: noncontributory. Pertinent exam findings / vital signs include minor abrasions to the dorsum of the right foot, chronic flexed deformities of toes diffusely, mild ecchymotic changes to the lateral toes, patient states focally more tender at the base of the great toe without any crepitus or severe swelling, right dorsalis pedis pulse 2+, able to plantar/dorsiflex foot. Differential / pathologies of concern include fracture, contusion, abrasions, sprain/strain - unlikely Lisfranc injury. Diagnostic studies of: -XR R Foot - no acute fractures seen. Interventions of: -cast shoe for patient comfort with immobilization. ED Course/Assessment/Plan: 79-year-old male had a minor fall around the home the other day stubbing his right foot has minor abrasions and bruising without any evidence of fracture on x-ray, he is neurovascularly intact and has no other complaints, I did peer counselor the patient that V rad was taking excessively long to read x-rays today but I did not see any fractures on my review of his x-ray. He opted to be placed in a cast shoe for comfort and proceed home for RICE therapy and therapeutic dosing of Tylenol and ibuprofen as tolerated, by the time he was being discharged his read was back and confirm no fracture. Counseled return criteria for any signs of infection is very minor abrasions or any severe increasing in swelling and pain or signs of neurovascular compromise. Findings not consistent with fracture, NV compromise. Disposition of Pain in Right Foot. Patient verbalized understanding of the plan and return to ED criteria and engaged in shared decision making. Medical Records Medical records reviewed: Yes I reviewed the patient's medical records. Imaging Data Radiologic Study: Attestation: I personally reviewed and interpreted this imaging study as follows: Imaging: X-Ray Radiologist's impression: Exam: XR Right Foot Exam date and time: 03/06/2024 11:48 AM Age: 79 years old Clinical indication: Pain; Foot and toes; Right TECHNIQUE: Imaging protocol: Radiologic exam of the right foot. Views: 3 or more views. COMPARISON: CT ABD AORTA CTA W RUNOFF 07/16/2020 7:50 PM FINDINGS: Bones/joints: Flexion of the IP joint. Degenerative changes in the 1st metatarsophalangeal joint and IP joint and tarsal bones. There is no evidence of acute fracture.There is no evidence of malalignment or dislocation. Soft tissues: Normal. IMPRESSION: There is no evidence of acute fracture.There is no evidence of malalignment or dislocation. Dictated and Authenticated by: Von Diggs MD. Quality:[facility] Health Related Social Needs: No Data to Display PFSH All Active Problems (Updated 03/06/24 @ 12:36 by MARC Tobar) Pain in right foot (Acute) Feeding tube dysfunction (Acute) Orthostatic hypotension (Acute) Right clavicle fracture (Acute 08/30/23) Syncope (Chronic) Ground glass opacity present on imaging of lung (Acute) Subdural hematoma (Acute) Pulmonary edema (Acute) Fracture of thumb, left, closed (Acute) Acute non-ST elevation myocardial infarction (NSTEMI) (Acute) Arm pain (Acute) Palliative care patient (Acute) Hemoptysis (Acute) Caregiver stress (Acute) Nausea & vomiting (Acute) Regurgitation of food (Acute) Pulmonary embolism (Chronic) Uses feeding tube (Acute) Gross hematuria (Acute) Ambulatory dysfunction (Acute) Leukocytosis (leucocytosis) (Acute) UTI (urinary tract infection) (Acute) Multiple subsegmental pulmonary emboli without acute cor pulmonale (Acute) C1 cervical fracture (Acute) Gastrostomy tube dysfunction (Acute) Advance care planning (Acute) Encounter for hospice care discussion (Acute) Unintentional weight loss of 10% body weight within 6 months (Acute) Dysuria (Acute) Malfunctioning jejunostomy tube (Acute) Need for follow-up by oncology social worker (Acute) Dysphagia (Acute) Weakness (Acute) Impaired instrumental activities of daily living (Acute) Plantar fascial fibromatosis (Acute) Feeding tube dysfunction (Acute) Sensorineural hearing loss (SNHL) of both ears (Acute) Otalgia of right ear (Acute) Neck pain on right side (Acute) Neck pain on right side (Acute) Full code status (Acute) Need for home health care (Acute) MRSA pneumonia (Acute) pt likely colonized Occlusion of right vertebral artery (Acute) Hypoxemia (Acute) Complication of feeding tube (Acute) Peripheral neuropathy (Acute 02/21/15) PAOD (peripheral arterial occlusive disease) (Acute) Laryngeal cancer (Acute) COPD (chronic obstructive pulmonary disease) (Chronic) G tube feedings (Acute) 20F 3.0cm 11/30/22. Routine change every 4 months. 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 Hypertension Tobacco use COPD (chronic obstructive pulmonary disease) Post herpetic neuralgia Hypothyroidism Hyperlipemia Depression Anxiety Anemia Conjunctivitis, chronic Surgical History S/P AAA (abdominal aortic aneurysm) repair Status post laryngectomy History of esophagogastroduodenoscopy (EGD) (~08/10/19) Daron Casper APRN [place] [facility] [place] hiatal hernia, GERD, Reyes's esophagitis, neuromuscular dysfunction History of laryngectomy Status post cardiac catheterization Status post cataract extraction and insertion of intraocular lens of right eye (07/12/18) History of tarsorrhaphy Status post cataract extraction and insertion of intraocular lens of left eye (04/30/12) 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 PROCEDURES RT/LEFT HEART CARD CATH COMPLETE LARYNGECTOMY Esophagoplasty EGD - MAC (07/06/17) Colonoscopy - MAC (12/22/16) History of radical laryngectomy Family History Nephew Throat cancer Maternal Cousin Cancer Social History Smoking/Tobacco Use Status: Former Tobacco Use Quit Date: 04/23/13 Tobacco: How many years used: 20 Smoking risk assessment performed?: Yes Alcohol Intake: never Drug use: Never Substance use type: does not use Housing: apartment Current gender identity: male Do you feel safe at home: Yes Do you feel safe in your relationship?: Yes
[2024-03-06 13:13] VITALS: PULSE 89; RESP 20; O2SAT 96
--- NOTE | 2024-03-06 13:13 | DI.VRAD_ITS ---
PROCEDURE INFORMATION: Exam: XR Right Foot Exam date and time: 03/06/2024 11:48 AM Age: 79 years old Clinical indication: Pain; Foot and toes; Right TECHNIQUE: Imaging protocol: Radiologic exam of the right foot. Views: 3 or more views. COMPARISON: CT ABD AORTA CTA W RUNOFF 07/16/2020 7:50 PM FINDINGS: Bones/joints: Flexion of the IP joint. Degenerative changes in the 1st metatarsophalangeal joint and IP joint and tarsal bones. There is no evidence of acute fracture.There is no evidence of malalignment or dislocation. Soft tissues: Normal. IMPRESSION: There is no evidence of acute fracture.There is no evidence of malalignment or dislocation. Dictated and Authenticated by: Von Diggs MD. Ordering:OMAR Singh MD
== END 2024-03-06 13:24 | disposition home or self-care (01) ==
PROVIDERS: Emergency Provider Physician Assistant; PCP Physician Assistant Medical
DX: M79.671 Pain in right foot (principal); I25.10 Atherosclerotic heart disease of native coronary artery without angina pectoris; I10 Essential (primary) hypertension; E78.5 Hyperlipidemia, unspecified; J44.9 Chronic obstructive pulmonary disease, unspecified; Z93.1 Gastrostomy status; Z99.3 Dependence on wheelchair
CPT/HCPCS: 99283; 73630

== ENCOUNTER 2024-03-08 08:14 | Emergency (ER) | payer MEDICARE, MEDICAID, SELFPAY ==
[2024-03-08 08:33] VITALS: BP 83/53; PULSE 67; RESP 18; TEMP 36.2; O2SAT 91
[2024-03-08 09:02] VITALS: BP 119/87
--- NOTE | 2024-03-08 09:13 | W.ED.GENAD ---
Discharge Plan Disposition Patient Disposition: Home Condition: Stable Discharge Details Clinical Impression: Complication of feeding tube Primary Care Provider: Nazia Chan ED Provider: Antonina Dowling Home Meds and New Rx's Prescriptions: Continued ropinirole 1 mg tablet 1 mg PO BID acetaminophen [Tylenol Extra Strength] 500 mg tablet 1,000 mg PO BID PRN tamsulosin [Flomax] 0.4 mg capsule 0.4 mg PO DAILY Qty: 90 3RF finasteride 5 mg tablet 5 mg PO DAILY Qty: 90 3RF omeprazole 20 mg capsule,delayed release(DR/EC) 20 mg feeding tube BID Qty: 90 4RF acetylcysteine 100 mg/mL (10 %) solution 4 ml inhalation BID losartan 25 mg tablet 25 mg PO DAILY metoprolol succinate 25 mg tablet extended release 24 hr 25 mg PO DAILY levothyroxine 88 mcg capsule 88 mcg PO DAILY gabapentin 300 mg capsule 300 mg PO QID Qty: 360 3RF sertraline 50 mg tablet 50 mg PO DAILY Qty: 30 4RF rosuvastatin 40 mg tablet 40 mg feeding tube HS Qty: 90 4RF ipratropium-albuterol 0.5 mg-3 mg(2.5 mg base)/3 mL solution for nebulization 3 ml IN QID PRN (Reason: shortness of breath or wheezing) Qty: 90 4RF Rx Instructions: increased dose/use treatment 4 times/day as needed NOT SENT polyethylene glycol 3350 [Miralax] 17 gram/dose powder 17 g PO DAILY PRN (Reason: constipation) Rx Instructions: 06/19/22 instructed by PCP to take 1/2 cap daily, may reduce to half cap three times per week if daily is too much Vancomycin 250 mg NEB BID 28 Days Qty: 280 12RF Rx Instructions: 250mg vancomycin in 5 cc of sterile water for nebulization To be given every other month for 28 consecutive days nystatin 100,000 unit/gram powder 1 applic topical BID Qty: 60 12RF acetylcysteine [NAC] 600 mg capsule 600 mg PO BID Qty: 60 12RF melatonin 3 MG tablet 6 mg PO HS levetiracetam 500 mg tablet 500 mg PO DAILY Patient Comments: TAKE ONE TABLET BY MOUTH TWICE A DAY losartan 50 mg tablet 50 mg PO DAILY Patient Comments: TAKE ONE TABLET BY MOUTH EVERY DAY Align 4 mg Capsule 4 mg PO QPM ferrous sulfate [FeroSul] 325 mg (65 mg iron) tablet 325 mg PO DAILY Patient Comments: TAKE 1 TABLET VIA FEEDING TUBE ONCE DAILY No Action sulfamethoxazole-trimethoprim 200-40 mg/5 mL suspension 5 ml PO BID 28 Days Qty: 280 6RF Rx Instructions: Take daily for 4 weeks, then off for 4 weeks, etc Discharge Instructions Additional Instructions: continue with tube feedings use gloves such as the ones with give you to give a firm secret code expert to remove bag return earlier with new or worsening complaints Referrals: Nazia Chan [Primary Care Provider] - 1 day Discharge Data Discharge Date/Time-TO BE ENTERED AT DEPARTURE: 03/08/24 11:17 HPI General Date/Time Provider Initiated Documentation: 03/08/24 08:52. HPI Narrative: This 79-year-old male with history of G-tube, laryngeal cancer with laryngectomy presents with report of feeding tube malfunction. Patient's is unable to unscrew the feeding tube from the bag. Presents to the emergency department for assessment patient denies any additional complaints at this time. Related Data Home Medications ?Medication ?Instructions ?Recorded ?Confirmed omeprazole 20 mg capsule,delayed 20 mg feeding tube BID #90 caps 10/05/19 03/08/24 release melatonin 3 mg tablet 6 mg PO HS 10/29/19 03/08/24 rosuvastatin 40 mg tablet 40 mg feeding tube HS #90 tabs 12/14/19 03/08/24 acetylcysteine 100 mg/mL (10 %) 4 ml inhalation BID 07/05/20 03/08/24 solution ipratropium 0.5 mg-albuterol 3 mg 3 ml IN QID PRN shortness of 07/30/20 03/08/24 (2.5 mg base)/3 mL nebulization breath or wheezing #90 mL soln Bifidobacterium infantis 4 mg 4 mg PO QPM 08/03/21 03/08/24 capsule (Align) ferrous sulfate 325 mg (65 mg 325 mg PO DAILY 08/05/21 03/08/24 iron) tablet (FeroSul) ropinirole 1 mg tablet 1 mg PO BID 01/07/22 03/08/24 acetaminophen 500 mg tablet 1,000 mg PO BID PRN 03/05/22 03/08/24 (Tylenol Extra Strength) polyethylene glycol 3350 17 17 g PO DAILY PRN constipation 06/19/22 03/08/24 gram/dose oral powder (Miralax) Vancomycin 250 mg NEB BID 28 days #280 mL 09/29/22 03/06/24 nystatin 100,000 unit/gram topical 1 applic topical BID #60 grams 02/19/23 03/08/24 powder acetylcysteine 600 mg capsule (NAC) 600 mg PO BID #60 caps 07/28/23 03/08/24 levothyroxine 88 mcg capsule 88 mcg PO DAILY 09/02/23 03/08/24 losartan 25 mg tablet 25 mg PO DAILY 09/02/23 03/06/24 metoprolol succinate 25 mg 25 mg PO DAILY 09/02/23 03/08/24 tablet,extended release 24 hr gabapentin 300 mg capsule 300 mg PO QID #360 caps 10/29/23 03/08/24 levetiracetam 500 mg tablet 500 mg PO DAILY 02/17/24 03/08/24 losartan 50 mg tablet 50 mg PO DAILY 02/17/24 03/08/24 sertraline 50 mg tablet 50 mg PO DAILY #30 tabs 02/23/24 03/08/24 finasteride 5 mg tablet 5 mg PO DAILY #90 tabs 03/02/24 03/08/24 tamsulosin 0.4 mg capsule (Flomax) 0.4 mg PO DAILY #90 caps 03/02/24 03/08/24 sulfamethoxazole 200 5 ml PO BID 28 days #280 mL 03/08/24 03/08/24 mg-trimethoprim 40 mg/5 mL oral suspension Previous Rx's ?Medication ?Instructions ?Recorded omeprazole 20 mg capsule,delayed 20 mg feeding tube BID #90 caps 10/05/19 release rosuvastatin 40 mg tablet 40 mg feeding tube HS #90 tabs 12/14/19 ipratropium 0.5 mg-albuterol 3 mg 3 ml IN QID PRN shortness of 07/30/20 (2.5 mg base)/3 mL nebulization breath or wheezing #90 mL soln Vancomycin 250 mg NEB BID 28 days #280 mL 09/29/22 nystatin 100,000 unit/gram topical 1 applic topical BID #60 grams 02/19/23 powder acetylcysteine 600 mg capsule (NAC) 600 mg PO BID #60 caps 07/28/23 gabapentin 300 mg capsule 300 mg PO QID #360 caps 05/16/24 sertraline 50 mg tablet 50 mg PO DAILY #30 tabs 02/23/24 finasteride 5 mg tablet 5 mg PO DAILY #90 tabs 03/02/24 tamsulosin 0.4 mg capsule (Flomax) 0.4 mg PO DAILY #90 caps 03/02/24 sulfamethoxazole 200 5 ml PO BID 28 days #280 mL 03/08/24 mg-trimethoprim 40 mg/5 mL oral suspension Allergies Allergy/AdvReac Type Severity Reaction Status Date / Time pollen extracts Allergy Mild Wheezing Verified 03/08/24 11:38 Tetracyclines Allergy Unknown SKIN RASH Verified 03/08/24 11:38 General Stated Complaint: GenMedical CHER: 3 Exam Narrative Exam Narrative: Alert oriented 79-year-old male in no acute distress, feeding tube with bag in place, alert and oriented Course Vital Signs Vital signs: Vital Signs Temperature 36.2 C L 03/08/24 08:33 Pulse 67 03/08/24 08:33 Respiratory Rate 18 03/08/24 08:33 Blood Pressure 83/53 L 03/08/24 08:33 Pulse Oximetry 91 L 03/08/24 08:33 Temperature 36.2 C L 03/08/24 08:33 Temperature Source Tympanic 03/08/24 08:33 Pulse 67 03/08/24 08:33 Respiratory Rate 18 03/08/24 08:33 Blood Pressure 119/87 03/08/24 09:02 Pulse Oximetry 91 L 03/08/24 08:33 Medical Decision Making 79-year-old male in no acute distress, presenting with G tube malfunction. The feeding tube bag was removed without issue and patient's and caregiver was given instructions on how to remove this in the future. pt feels comfortable with plan at this time. Return precautions reviewed patient and family expressed understanding Quality:SDOH Health Related Social Needs: No Data to Display PFSH All Active Problems (Updated 03/08/24 @ 09:02 by MARC Dennis) Pain in right foot (Acute) Feeding tube dysfunction (Acute) Orthostatic hypotension (Acute) Right clavicle fracture (Acute 08/30/23) Syncope (Chronic) Ground glass opacity present on imaging of lung (Acute) Subdural hematoma (Acute) Pulmonary edema (Acute) Fracture of thumb, left, closed (Acute) Acute non-ST elevation myocardial infarction (NSTEMI) (Acute) Arm pain (Acute) Palliative care patient (Acute) Hemoptysis (Acute) Caregiver stress (Acute) Nausea & vomiting (Acute) Regurgitation of food (Acute) Pulmonary embolism (Chronic) Uses feeding tube (Acute) Gross hematuria (Acute) Ambulatory dysfunction (Acute) Leukocytosis (leucocytosis) (Acute) UTI (urinary tract infection) (Acute) Multiple subsegmental pulmonary emboli without acute cor pulmonale (Acute) C1 cervical fracture (Acute) Gastrostomy tube dysfunction (Acute) Advance care planning (Acute) Encounter for hospice care discussion (Acute) Unintentional weight loss of 10% body weight within 6 months (Acute) Dysuria (Acute) Malfunctioning jejunostomy tube (Acute) Need for follow-up by licensed social worker (Acute) Dysphagia (Acute) Weakness (Acute) Impaired instrumental activities of daily living (Acute) Plantar fascial fibromatosis (Acute) Feeding tube dysfunction (Acute) Sensorineural hearing loss (SNHL) of both ears (Acute) Otalgia of right ear (Acute) Neck pain on right side (Acute) Neck pain on right side (Acute) Full code status (Acute) Need for home health care (Acute) MRSA pneumonia (Acute) pt likely colonized Occlusion of right vertebral artery (Acute) Hypoxemia (Acute) Complication of feeding tube (Acute) Peripheral neuropathy (Acute 02/21/15) PAOD (peripheral arterial occlusive disease) (Acute) Laryngeal cancer (Acute) COPD (chronic obstructive pulmonary disease) (Chronic) G tube feedings (Acute) 20F 3.0cm 11/30/22. Routine change every 4 months. 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 Hypertension Tobacco use COPD (chronic obstructive pulmonary disease) Post herpetic neuralgia Hypothyroidism Hyperlipemia Depression Anxiety Anemia Conjunctivitis, chronic Surgical History S/P AAA (abdominal aortic aneurysm) repair Status post laryngectomy History of esophagogastroduodenoscopy (EGD) (~08/10/19) Daron Casper APRN @ [facility] [place]: hiatal hernia, GERD, Reyes's esophagitis, neuromuscular dysfunction History of laryngectomy Status post cardiac catheterization Status post cataract extraction and insertion of intraocular lens of right eye (07/12/18) History of tarsorrhaphy Status post cataract extraction and insertion of intraocular lens of left eye (04/30/12) 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) Sin-mullins button placed by Dr Elia Mcdonald, [place] PROCEDURES RT/LEFT HEART CARD CATH COMPLETE LARYNGECTOMY Esophagoplasty EGD - MAC (07/06/17) Colonoscopy - MAC (12/22/16) History of radical laryngectomy Family History Nephew Throat cancer Maternal Cousin Cancer Social History Smoking/Tobacco Use Status: Former Tobacco Use Quit Date: 04/23/13 Tobacco: How many years used: 20 Smoking risk assessment performed?: Yes Alcohol Intake: never Drug use: Never Substance use type: does not use Housing: apartment Current gender identity: male Do you feel safe at home: Yes Do you feel safe in your relationship?: Yes
--- NOTE | 2024-03-08 11:23 | NUR.NOTE ---
Nursing Note: this rn was able to disconnect Gtube from feeding tube. Gave women he was with and pt instructions and tips on how to make task easier
== END 2024-03-08 11:17 | disposition home or self-care (01) ==
PROVIDERS: Emergency Provider Physician Assistant; PCP Physician Assistant Medical
DX: K94.23 Gastrostomy malfunction (principal); I25.10 Atherosclerotic heart disease of native coronary artery without angina pectoris; I25.2 Old myocardial infarction; I10 Essential (primary) hypertension; E78.5 Hyperlipidemia, unspecified; J44.9 Chronic obstructive pulmonary disease, unspecified; Z85.21 Personal history of malignant neoplasm of larynx; Z90.02 Acquired absence of larynx; Z87.891 Personal history of nicotine dependence
CPT/HCPCS: 99283

== ENCOUNTER 2024-03-11 14:26 | Emergency (ER) | payer MEDICARE, MEDICAID, SELFPAY ==
[2024-03-11 14:49] VITALS: BP 126/78; PULSE 69; RESP 12; TEMP 36.4; O2SAT 91
[2024-03-11 15:46] VITALS: BP 126/78; PULSE 69; RESP 12; TEMP 36.4; O2SAT 91
--- NOTE | 2024-03-11 17:43 | W.ED.GENAD ---
Discharge Plan Disposition Patient Disposition: Home Condition: Stable Discharge Details Clinical Impression: Uses feeding tube Primary Care Provider: Nazia Chan ED Provider: So Whalen Home Meds and New Rx's Prescriptions: No Action ropinirole 1 mg tablet 1 mg PO BID acetaminophen [Tylenol Extra Strength] 500 mg tablet 1,000 mg PO BID PRN tamsulosin [Flomax] 0.4 mg capsule 0.4 mg PO DAILY Qty: 90 3RF finasteride 5 mg tablet 5 mg PO DAILY Qty: 90 3RF omeprazole 20 mg capsule,delayed release(DR/EC) 20 mg feeding tube BID Qty: 90 4RF acetylcysteine 100 mg/mL (10 %) solution 4 ml inhalation BID losartan 25 mg tablet 25 mg PO DAILY metoprolol succinate 25 mg tablet extended release 24 hr 25 mg PO DAILY levothyroxine 88 mcg capsule 88 mcg PO DAILY gabapentin 300 mg capsule 300 mg PO QID Qty: 360 3RF sertraline 50 mg tablet 50 mg PO DAILY Qty: 30 4RF sulfamethoxazole-trimethoprim 200-40 mg/5 mL suspension 5 ml PO BID 28 Days Qty: 280 6RF Rx Instructions: Take daily for 4 weeks, then off for 4 weeks, etc rosuvastatin 40 mg tablet 40 mg feeding tube HS Qty: 90 4RF ipratropium-albuterol 0.5 mg-3 mg(2.5 mg base)/3 mL solution for nebulization 3 ml IN QID PRN (Reason: shortness of breath or wheezing) Qty: 90 4RF Rx Instructions: increased dose/use treatment 4 times/day as needed NOT SENT polyethylene glycol 3350 [Miralax] 17 gram/dose powder 17 g PO DAILY PRN (Reason: constipation) Rx Instructions: 06/19/22 instructed by PCP to take 1/2 cap daily, may reduce to half cap three times per week if daily is too much Vancomycin 250 mg NEB BID 28 Days Qty: 280 12RF Rx Instructions: 250mg vancomycin in 5 cc of sterile water for nebulization To be given every other month for 28 consecutive days nystatin 100,000 unit/gram powder 1 applic topical BID Qty: 60 12RF acetylcysteine [NAC] 600 mg capsule 600 mg PO BID Qty: 60 12RF melatonin 3 MG tablet 6 mg PO HS levetiracetam 500 mg tablet 500 mg PO DAILY Patient Comments: TAKE ONE TABLET BY MOUTH TWICE A DAY losartan 50 mg tablet 50 mg PO DAILY Patient Comments: TAKE ONE TABLET BY MOUTH EVERY DAY Align 4 mg Capsule 4 mg PO QPM ferrous sulfate [FeroSul] 325 mg (65 mg iron) tablet 325 mg PO DAILY Patient Comments: TAKE 1 TABLET VIA FEEDING TUBE ONCE DAILY Discharge Instructions Additional Instructions: CONTINUE FEEDING TUBE CARE PER ROUTINE HPI General Date/Time Provider Initiated Documentation: 03/11/24 15:07. Limitations to Documentation: physical limitation. Information obtained by: patient and family (). HPI Narrative: 79-year-old gentleman with history of head neck cancer, status post laryngectomy, feeding tube dependent presents for evaluation of difficulty with his feeding tube. The reports that she is unable to untwist the Luer-Rachel to disconnect the feeding tube back. Related Data Home Medications ?Medication ?Instructions ?Recorded ?Confirmed omeprazole 20 mg capsule,delayed 20 mg feeding tube BID #90 caps 10/05/19 03/11/24 release melatonin 3 mg tablet 6 mg PO HS 10/29/19 03/11/24 rosuvastatin 40 mg tablet 40 mg feeding tube HS #90 tabs 12/14/19 03/11/24 acetylcysteine 100 mg/mL (10 %) 4 ml inhalation BID 07/05/20 03/11/24 solution ipratropium 0.5 mg-albuterol 3 mg 3 ml IN QID PRN shortness of 07/30/20 03/11/24 (2.5 mg base)/3 mL nebulization breath or wheezing #90 mL soln Bifidobacterium infantis 4 mg 4 mg PO QPM 08/03/21 03/11/24 capsule (Align) ferrous sulfate 325 mg (65 mg 325 mg PO DAILY 08/05/21 03/11/24 iron) tablet (FeroSul) ropinirole 1 mg tablet 1 mg PO BID 01/07/22 03/11/24 acetaminophen 500 mg tablet 1,000 mg PO BID PRN 03/05/22 03/11/24 (Tylenol Extra Strength) polyethylene glycol 3350 17 17 g PO DAILY PRN constipation 06/19/22 03/11/24 gram/dose oral powder (Miralax) Vancomycin 250 mg NEB BID 28 days #280 mL 09/29/22 03/11/24 nystatin 100,000 unit/gram topical 1 applic topical BID #60 grams 02/19/23 03/11/24 powder acetylcysteine 600 mg capsule (NAC) 600 mg PO BID #60 caps 07/28/23 03/11/24 levothyroxine 88 mcg capsule 88 mcg PO DAILY 09/02/23 03/11/24 losartan 25 mg tablet 25 mg PO DAILY 09/02/23 03/11/24 metoprolol succinate 25 mg 25 mg PO DAILY 09/02/23 03/11/24 tablet,extended release 24 hr gabapentin 300 mg capsule 300 mg PO QID #360 caps 10/29/23 03/11/24 levetiracetam 500 mg tablet 500 mg PO DAILY 02/17/24 03/11/24 losartan 50 mg tablet 50 mg PO DAILY 02/17/24 03/11/24 sertraline 50 mg tablet 50 mg PO DAILY #30 tabs 02/23/24 03/11/24 finasteride 5 mg tablet 5 mg PO DAILY #90 tabs 03/02/24 03/11/24 tamsulosin 0.4 mg capsule (Flomax) 0.4 mg PO DAILY #90 caps 03/02/24 03/11/24 sulfamethoxazole 200 5 ml PO BID 28 days #280 mL 03/08/24 03/11/24 mg-trimethoprim 40 mg/5 mL oral suspension Previous Rx's ?Medication ?Instructions ?Recorded omeprazole 20 mg capsule,delayed 20 mg feeding tube BID #90 caps 10/05/19 release rosuvastatin 40 mg tablet 40 mg feeding tube HS #90 tabs 12/14/19 ipratropium 0.5 mg-albuterol 3 mg 3 ml IN QID PRN shortness of 07/30/20 (2.5 mg base)/3 mL nebulization breath or wheezing #90 mL soln Vancomycin 250 mg NEB BID 28 days #280 mL 09/29/22 nystatin 100,000 unit/gram topical 1 applic topical BID #60 grams 02/19/23 powder acetylcysteine 600 mg capsule (NAC) 600 mg PO BID #60 caps 07/28/23 gabapentin 300 mg capsule 300 mg PO QID #360 caps 10/29/23 sertraline 50 mg tablet 50 mg PO DAILY #30 tabs 02/23/24 finasteride 5 mg tablet 5 mg PO DAILY #90 tabs 03/02/24 tamsulosin 0.4 mg capsule (Flomax) 0.4 mg PO DAILY #90 caps 03/02/24 sulfamethoxazole 200 5 ml PO BID 28 days #280 mL 03/08/24 mg-trimethoprim 40 mg/5 mL oral suspension Allergies Allergy/AdvReac Type Severity Reaction Status Date / Time pollen extracts Allergy Mild Wheezing Verified 03/11/24 14:54 Tetracyclines Allergy Unknown SKIN RASH Verified 03/11/24 14:54 General Stated Complaint: GenMedical CHER: 4 Exam Narrative Exam Narrative: Review of Systems: All systems reviewed & are unremarkable except as noted in HPI and below Chronically ill-appearing Speaks with voicebox Unlabored respiratory effort Nondistended abdomen , nontender, G-tube in place Course Vital Signs Vital signs: Vital Signs Temperature 36.4 C L 03/11/24 14:49 Pulse 69 03/11/24 14:49 Respiratory Rate 12 03/11/24 14:49 Blood Pressure 126/78 03/11/24 14:49 Pulse Oximetry 91 L 03/11/24 14:49 Temperature 36.4 C L 03/11/24 15:46 Temperature Source Oral 03/11/24 15:46 Pulse 69 03/11/24 15:46 Respiratory Rate 12 03/11/24 15:46 Respiratory Effort Normal 03/11/24 15:49 Respiratory Depth Normal 03/11/24 15:49 Respiratory Pattern Normal 03/11/24 15:49 Blood Pressure 126/78 03/11/24 15:46 Blood Pressure Position Sitting 03/11/24 15:46 Pulse Oximetry 91 L 03/11/24 15:46 Oxygen Delivery Method Room Air 03/11/24 15:46 Oxygen Flow Rate 0 03/11/24 15:46 Pain Level 5 03/11/24 15:46 Comment usually on 3 lpm ( was disconnected upon arrival). 03/11/24 15:46 Medical Decision Making Evaluation for assistance with the feeding tube. The Luer-Rachel was fairly tight, but was able to untwist to disconnect and the was appreciative. No other issues to address today. Quality:SDOH Health Related Social Needs: No Data to Display PFSH All Active Problems (Updated 03/11/24 @ 15:16 by So Whalen MD) Pain in right foot (Acute) Feeding tube dysfunction (Acute) Orthostatic hypotension (Acute) Right clavicle fracture (Acute 08/30/23) Syncope (Chronic) Ground glass opacity present on imaging of lung (Acute) Subdural hematoma (Acute) Pulmonary edema (Acute) Fracture of thumb, left, closed (Acute) Acute non-ST elevation myocardial infarction (NSTEMI) (Acute) Arm pain (Acute) Palliative care patient (Acute) Hemoptysis (Acute) Caregiver stress (Acute) Nausea & vomiting (Acute) Regurgitation of food (Acute) Pulmonary embolism (Chronic) Uses feeding tube (Acute) Gross hematuria (Acute) Ambulatory dysfunction (Acute) Leukocytosis (leucocytosis) (Acute) UTI (urinary tract infection) (Acute) Multiple subsegmental pulmonary emboli without acute cor pulmonale (Acute) C1 cervical fracture (Acute) Gastrostomy tube dysfunction (Acute) Advance care planning (Acute) Encounter for hospice care discussion (Acute) Unintentional weight loss of 10% body weight within 6 months (Acute) Dysuria (Acute) Malfunctioning jejunostomy tube (Acute) Need for follow-up by socially responsible investment adviser (Acute) Dysphagia (Acute) Weakness (Acute) Impaired instrumental activities of daily living (Acute) Plantar fascial fibromatosis (Acute) Feeding tube dysfunction (Acute) Sensorineural hearing loss (SNHL) of both ears (Acute) Otalgia of right ear (Acute) Neck pain on right side (Acute) Neck pain on right side (Acute) Full code status (Acute) Need for home health care (Acute) MRSA pneumonia (Acute) pt likely colonized Occlusion of right vertebral artery (Acute) Hypoxemia (Acute) Complication of feeding tube (Acute) Peripheral neuropathy (Acute 02/21/15) PAOD (peripheral arterial occlusive disease) (Acute) Laryngeal cancer (Acute) COPD (chronic obstructive pulmonary disease) (Chronic) G tube feedings (Acute) 20F 3.0cm 11/30/22. Routine change every 4 months. 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 (Acute) Compression fracture of thoracolumbar vertebra (Acute) Dependence on supplemental oxygen (Chronic) Medical History History of laryngeal cancer Chronic respiratory failure with hypoxia Pneumonia Shortness of breath Complication of feeding tube Hematoma following procedure Blockage of feeding tube Dyspnea on exertion Neurotrophic cornea of left eye Left corneal scar with opacity Cortical cataract of right eye Nuclear sclerotic cataract of right eye Posterior subcapsular age-related cataract, right eye Feeding tube dysfunction CAD (coronary artery disease) Sessile colonic polyp 12/22/16-SESSILE SERRATED ADENOMA Restless leg syndrome (02/21/15) Pulmonary nodule, right (05/30/15) on chest CT -2015: stable Primary malignant neoplasm of oropharynx ; yearly fup in Feb (last ) [facility] [place] SX: 2007 ROR: 1999 + 2007 Impingement syndrome, shoulder, left (10/10/16) -2016: PT sugg. 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 Hypertension Tobacco use COPD (chronic obstructive pulmonary disease) Post herpetic neuralgia Hypothyroidism Hyperlipemia Depression Anxiety Anemia Conjunctivitis, chronic Surgical History S/P AAA (abdominal aortic aneurysm) repair Status post laryngectomy History of esophagogastroduodenoscopy (EGD) (~08/10/19) Daron Casper APRN @ [facility] [place]: hiatal hernia, GERD, Reyes's esophagitis, neuromuscular dysfunction History of laryngectomy Status post cardiac catheterization Status post cataract extraction and insertion of intraocular lens of right eye (07/12/18) History of tarsorrhaphy Status post cataract extraction and insertion of intraocular lens of left eye (04/30/12) 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) Sin-mullins button placed by Dr Elia Mcdonald, [facility] PROCEDURES RT/LEFT HEART CARD CATH COMPLETE LARYNGECTOMY Esophagoplasty EGD - MAC (07/06/17) Colonoscopy - MAC (12/22/16) History of radical laryngectomy Family History Nephew Throat cancer Maternal Cousin Cancer Social History Smoking/Tobacco Use Status: Former Tobacco Use Quit Date: 04/23/13 Tobacco: How many years used: 20 Smoking risk assessment performed?: Yes Alcohol Intake: never Drug use: Never Substance use type: does not use Housing: apartment Current gender identity: male Do you feel safe at home: Yes Do you feel safe in your relationship?: Yes
== END 2024-03-11 15:49 | disposition home or self-care (01) ==
PROVIDERS: Emergency Provider Emergency Medicine; PCP Physician Assistant Medical
DX: T85.598A Other mechanical complication of other gastrointestinal prosthetic devices, implants and grafts, initial encounter (principal)
CPT/HCPCS: 99282

== ENCOUNTER 2024-03-13 12:39 | Emergency (ER) | payer MEDICARE, MEDICAID, SELFPAY ==
[2024-03-13 12:40] VITALS: BP 102/65; PULSE 74; RESP 12; TEMP 36.7; O2SAT 91
--- NOTE | 2024-03-13 13:01 | W.ED.GENAD ---
Discharge Plan Disposition Patient Disposition: Home Condition: Stable Discharge Details Clinical Impression: Complication of feeding tube Primary Care Provider: Nazia Chan ED Provider: Kalyan Barreto [place] Meds and New Rx's Prescriptions: Continued ropinirole 1 mg tablet 1 mg PO BID acetaminophen [Tylenol Extra Strength] 500 mg tablet 1,000 mg PO BID PRN tamsulosin [Flomax] 0.4 mg capsule 0.4 mg PO DAILY Qty: 90 3RF finasteride 5 mg tablet 5 mg PO DAILY Qty: 90 3RF omeprazole 20 mg capsule,delayed release(DR/EC) 20 mg feeding tube BID Qty: 90 4RF acetylcysteine 100 mg/mL (10 %) solution 4 ml inhalation BID metoprolol succinate 25 mg tablet extended release 24 hr 25 mg PO DAILY levothyroxine 88 mcg capsule 88 mcg PO DAILY gabapentin 300 mg capsule 300 mg PO QID Qty: 360 3RF sertraline 50 mg tablet 50 mg PO DAILY Qty: 30 4RF sulfamethoxazole-trimethoprim 200-40 mg/5 mL suspension 5 ml PO BID 28 Days Qty: 280 6RF Rx Instructions: Take daily for 4 weeks, then off for 4 weeks, etc rosuvastatin 40 mg tablet 40 mg feeding tube HS Qty: 90 4RF ipratropium-albuterol 0.5 mg-3 mg(2.5 mg base)/3 mL solution for nebulization 3 ml IN QID PRN (Reason: shortness of breath or wheezing) Qty: 90 4RF Rx Instructions: increased dose/use treatment 4 times/day as needed NOT SENT polyethylene glycol 3350 [Miralax] 17 gram/dose powder 17 g PO DAILY PRN (Reason: constipation) Rx Instructions: 06/19/22 instructed by PCP to take 1/2 cap daily, may reduce to half cap three times per week if daily is too much nystatin 100,000 unit/gram powder 1 applic topical BID Qty: 60 12RF acetylcysteine [NAC] 600 mg capsule 600 mg PO BID Qty: 60 12RF melatonin 3 MG tablet 3 mg PO HS levetiracetam 500 mg tablet 500 mg PO DAILY Patient Comments: TAKE ONE TABLET BY MOUTH TWICE A DAY losartan 50 mg tablet 50 mg PO DAILY Patient Comments: TAKE ONE TABLET BY MOUTH EVERY DAY Align 4 mg Capsule 4 mg PO QPM ferrous sulfate [FeroSul] 325 mg (65 mg iron) tablet 325 mg PO DAILY Patient Comments: TAKE 1 TABLET VIA FEEDING TUBE ONCE DAILY No Action ferrous sulfate [Feosol] 325 mg (65 mg iron) tablet 325 mg PO DAILY Align Jr 10.5 mg (10 million cell) tablet,chewable 10.5 mg PO DAILY vit 14-iron fum-folic 29 mg iron- 1 mg tablet,chewable 1 tab PO DAILY HPI General Mode of arrival: ambulatory. Date/Time Provider Initiated Documentation: 03/13/24 12:42. Limitations to Documentation: no limitations. Information obtained by: patient. History of Present Illness 79 year old M presents to the emergency department with the chief complaint of can't get g tube feeding off g tube , described as moderate, Patient started experiencing this hour(s) (2) and it has been constant. No relieving factors improve symptom(s), No exacerbating factors reported . Patient notes no other symptoms.. Patient did receive the following treatments prior to arrival, none Related Data Home Medications ?Medication ?Instructions ?Recorded ?Confirmed omeprazole 20 mg capsule,delayed 20 mg feeding tube BID #90 caps 10/05/19 03/13/24 release melatonin 3 mg tablet 3 mg PO HS 10/29/19 03/13/24 rosuvastatin 40 mg tablet 40 mg feeding tube HS #90 tabs 12/14/19 03/13/24 acetylcysteine 100 mg/mL (10 %) 4 ml inhalation BID 07/05/20 03/11/24 solution ipratropium 0.5 mg-albuterol 3 mg 3 ml IN QID PRN shortness of 07/30/20 03/13/24 (2.5 mg base)/3 mL nebulization breath or wheezing #90 mL soln Bifidobacterium infantis 4 mg 4 mg PO QPM 08/03/21 03/11/24 capsule (Align) ferrous sulfate 325 mg (65 mg 325 mg PO DAILY 08/05/21 03/11/24 iron) tablet (FeroSul) ropinirole 1 mg tablet 1 mg PO BID 01/07/22 03/13/24 acetaminophen 500 mg tablet 1,000 mg PO BID PRN 03/05/22 03/13/24 (Tylenol Extra Strength) polyethylene glycol 3350 17 17 g PO DAILY PRN constipation 06/19/22 03/13/24 gram/dose oral powder (Miralax) nystatin 100,000 unit/gram topical 1 applic topical BID #60 grams 02/19/23 03/13/24 powder acetylcysteine 600 mg capsule (NAC) 600 mg PO BID #60 caps 07/28/23 03/13/24 levothyroxine 88 mcg capsule 88 mcg PO DAILY 09/02/23 03/13/24 metoprolol succinate 25 mg 25 mg PO DAILY 09/02/23 03/13/24 tablet,extended release 24 hr gabapentin 300 mg capsule 300 mg PO QID #360 caps 10/29/23 03/13/24 levetiracetam 500 mg tablet 500 mg PO DAILY 02/17/24 03/13/24 losartan 50 mg tablet 50 mg PO DAILY 02/17/24 03/13/24 sertraline 50 mg tablet 50 mg PO DAILY #30 tabs 02/23/24 03/13/24 finasteride 5 mg tablet 5 mg PO DAILY #90 tabs 03/02/24 03/13/24 tamsulosin 0.4 mg capsule (Flomax) 0.4 mg PO DAILY #90 caps 03/02/24 03/13/24 sulfamethoxazole 200 5 ml PO BID 28 days #280 mL 03/08/24 03/13/24 mg-trimethoprim 40 mg/5 mL oral suspension Bifidobacterium infantis 10.5 mg 10.5 mg PO DAILY 03/13/24 03/13/24 (10 million cell) chewable tablet (Align Jr) ferrous sulfate 325 mg (65 mg 325 mg PO DAILY 03/13/24 03/13/24 iron) tablet (Feosol) vit 14-ferrous fum 29 mg 1 tab PO DAILY 03/13/24 03/13/24 iron-folic acid 1 mg chewable tablet Previous Rx's ?Medication ?Instructions ?Recorded omeprazole 20 mg capsule,delayed 20 mg feeding tube BID #90 caps 10/05/19 release rosuvastatin 40 mg tablet 40 mg feeding tube HS #90 tabs 12/14/19 ipratropium 0.5 mg-albuterol 3 mg 3 ml IN QID PRN shortness of 07/30/20 (2.5 mg base)/3 mL nebulization breath or wheezing #90 mL soln nystatin 100,000 unit/gram topical 1 applic topical BID #60 grams 02/19/23 powder acetylcysteine 600 mg capsule (NAC) 600 mg PO BID #60 caps 07/28/23 gabapentin 300 mg capsule 300 mg PO QID #360 caps 10/29/23 sertraline 50 mg tablet 50 mg PO DAILY #30 tabs 02/23/24 finasteride 5 mg tablet 5 mg PO DAILY #90 tabs 03/02/24 tamsulosin 0.4 mg capsule (Flomax) 0.4 mg PO DAILY #90 caps 03/02/24 sulfamethoxazole 200 5 ml PO BID 28 days #280 mL 03/08/24 mg-trimethoprim 40 mg/5 mL oral suspension Allergies Allergy/AdvReac Type Severity Reaction Status Date / Time pollen extracts Allergy Mild Wheezing Verified 03/13/24 12:46 Tetracyclines Allergy Unknown SKIN RASH Verified 03/13/24 12:46 General Stated Complaint: GenMedical CHER: 5 Review of Systems All systems reviewed & are unremarkable except as noted in HPI and below Constitutional Constitutional: Denies chills, Denies fever(s) and Denies weakness Cardiovascular Cardiovascular: Denies chest pain and Denies dyspnea Respiratory Respiratory: Denies cough and Denies dyspnea Gastrointestinal Gastrointestinal: Denies abdominal pain, Denies nausea and Denies vomiting Musculoskeletal Musculoskeletal: Denies joint swelling Neurologic Neurologic: Denies weakness Psychiatric Psychiatric: Denies depression Exam Const General: no acute distress Orientation: alert [facility] Head: normal to inspection Ears: external ears normal General nose exam: external nose normal Mouth: moist mucous membranes Eyes General: appearance normal, both eyes and all related structures Neck Neck: normal visual inspection Resp Effort & Inspection: normal respiratory effort and able to speak in complete sentences Cardio Rate: regular rate GI Palpation: soft Skin General skin exam: no rashes or lesions noted Neuro General: patient alert and patient oriented x3 Extrem General: normal to inspection Psych Mental Status: mental status grossly normal Course Vital Signs Vital signs: Vital Signs Temperature 36.7 C 03/13/24 12:40 Pulse 74 03/13/24 12:40 Respiratory Rate 12 03/13/24 12:40 Blood Pressure 102/65 03/13/24 12:40 Pulse Oximetry 91 L 03/13/24 12:40 Temperature 36.7 C 03/13/24 12:40 Pulse 74 03/13/24 12:40 Respiratory Rate 12 03/13/24 12:40 Respiratory Effort Normal 03/13/24 12:47 Blood Pressure 102/65 03/13/24 12:40 Pulse Oximetry 91 L 03/13/24 12:40 Oxygen Delivery Method Trach Collar 03/13/24 12:40 Oxygen Flow Rate 3 03/13/24 12:40 Pain Level 0 03/13/24 12:40 Medical Decision Making Patient and his are here again for issues with his G-tube. They have been having trouble disconnecting the G-tube feedings from the G-tube. He otherwise has no complaints. He is in no distress, his abdomen is soft and nontender. The G-tube feeding cord is tightly screwed into the G-tube. I suspect that there squamous onto hard. I was able to unscrew the G-tube feeding cord by holding the G-tube and with Kaylin clamps, this was done successfully without complications. Educated on not over screwing the G-tube feeding cord into the G-tube. He is stable for discharge and will follow-up with his PCP and specialist as needed, return precautions given. Quality:SDOH Health Related Social Needs: No Data to Display PFSH All Active Problems (Updated 03/13/24 @ 13:02 by Kalyan Barreto MD) Pain in right foot (Acute) Feeding tube dysfunction (Acute) Orthostatic hypotension (Acute) Right clavicle fracture (Acute 08/30/23) Syncope (Chronic) Ground glass opacity present on imaging of lung (Acute) Subdural hematoma (Acute) Pulmonary edema (Acute) Fracture of thumb, left, closed (Acute) Acute non-ST elevation myocardial infarction (NSTEMI) (Acute) Arm pain (Acute) Palliative care patient (Acute) Hemoptysis (Acute) Caregiver stress (Acute) Nausea & vomiting (Acute) Regurgitation of food (Acute) Pulmonary embolism (Chronic) Uses feeding tube (Acute) Gross hematuria (Acute) Ambulatory dysfunction (Acute) Leukocytosis (leucocytosis) (Acute) UTI (urinary tract infection) (Acute) Multiple subsegmental pulmonary emboli without acute cor pulmonale (Acute) C1 cervical fracture (Acute) Gastrostomy tube dysfunction (Acute) Advance care planning (Acute) Encounter for hospice care discussion (Acute) Unintentional weight loss of 10% body weight within 6 months (Acute) Dysuria (Acute) Malfunctioning jejunostomy tube (Acute) Need for follow-up by community mental health social worker (Acute) Dysphagia (Acute) Weakness (Acute) Impaired instrumental activities of daily living (Acute) Plantar fascial fibromatosis (Acute) Feeding tube dysfunction (Acute) Sensorineural hearing loss (SNHL) of both ears (Acute) Otalgia of right ear (Acute) Neck pain on right side (Acute) Neck pain on right side (Acute) Full code status (Acute) Need for home health care (Acute) MRSA pneumonia (Acute) pt likely colonized Occlusion of right vertebral artery (Acute) Hypoxemia (Acute) Complication of feeding tube (Acute) Peripheral neuropathy (Acute 02/21/15) PAOD (peripheral arterial occlusive disease) (Acute) Laryngeal cancer (Acute) COPD (chronic obstructive pulmonary disease) (Chronic) G tube feedings (Acute) 20F 3.0cm 11/30/22. Routine change every 4 months. 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 Hypertension Tobacco use COPD (chronic obstructive pulmonary disease) Post herpetic neuralgia Hypothyroidism Hyperlipemia Depression Anxiety Anemia Conjunctivitis, chronic Surgical History S/P AAA (abdominal aortic aneurysm) repair Status post laryngectomy History of esophagogastroduodenoscopy (EGD) (~08/10/19) Daron Casper APRN @ [facility] [place]: hiatal hernia, GERD, Reyes's esophagitis, neuromuscular dysfunction History of laryngectomy Status post cardiac catheterization Status post cataract extraction and insertion of intraocular lens of right eye (07/12/18) History of tarsorrhaphy Status post cataract extraction and insertion of intraocular lens of left eye (04/30/12) 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) Sin-mullins button placed by Dr Elia Mcdonald, [facility] PROCEDURES RT/LEFT HEART CARD CATH COMPLETE LARYNGECTOMY Esophagoplasty EGD - MAC (07/06/17) Colonoscopy - MAC (12/22/16) History of radical laryngectomy Family History Nephew Throat cancer Maternal Cousin Cancer Social History Smoking/Tobacco Use Status: Former Tobacco Use Quit Date: 04/23/13 Tobacco: How many years used: 20 Smoking risk assessment performed?: Yes Alcohol Intake: never Drug use: Never Substance use type: does not use Housing: apartment Current gender identity: male Do you feel safe at home: Yes Do you feel safe in your relationship?: Yes
[2024-03-13 13:22] VITALS: BP 102/65; PULSE 74; RESP 12; TEMP 36.7; O2SAT 91
[2024-03-13 13:37] VITALS: RESP 15
== END 2024-03-13 13:42 | disposition home or self-care (01) ==
PROVIDERS: Emergency Provider Emergency Medicine; PCP Physician Assistant Medical
DX: T85.598A Other mechanical complication of other gastrointestinal prosthetic devices, implants and grafts, initial encounter (principal)
CPT/HCPCS: 99281; 99282

== ENCOUNTER 2024-04-15 21:07 | Emergency (ER) | payer MEDICARE, MEDICAID, SELFPAY ==
[2024-04-15] VITALS (11 sets, daily range): BP systolic 87–174; BP diastolic 49–65; PULSE 58–65; RESP 12; TEMP 36.4; O2SAT 6–96
--- NOTE | 2024-04-15 21:27 | ED.GENADUL_ITS ---
Discharge Plan Disposition Patient Disposition: Home Condition: Stable Discharge Details Clinical Impression: Acute urinary retention, Hypoxia, G tube feedings, Laryngeal cancer, 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, COPD (chronic obstructive pulmonary disease), Dependence on supplemental oxygen Primary Care Provider: Nazia Chan ED Provider: Brisa Titus Home Meds and New Rx's Prescriptions: No Action ropinirole 1 mg tablet 1 mg PO BID acetaminophen [Tylenol Extra Strength] 500 mg tablet 1,000 mg PO BID PRN tamsulosin [Flomax] 0.4 mg capsule 0.4 mg PO DAILY Qty: 90 3RF finasteride 5 mg tablet 5 mg PO DAILY Qty: 90 3RF omeprazole 20 mg capsule,delayed release(DR/EC) 20 mg feeding tube BID Qty: 90 4RF acetylcysteine 100 mg/mL (10 %) solution 4 ml inhalation BID metoprolol succinate 25 mg tablet extended release 24 hr 25 mg PO DAILY levothyroxine 88 mcg capsule 88 mcg PO DAILY gabapentin 300 mg capsule 300 mg PO QID Qty: 360 3RF sertraline 50 mg tablet 50 mg PO DAILY Qty: 30 4RF rosuvastatin 40 mg tablet 40 mg feeding tube HS Qty: 90 4RF ipratropium-albuterol 0.5 mg-3 mg(2.5 mg base)/3 mL solution for nebulization 3 ml IN QID PRN (Reason: shortness of breath or wheezing) Qty: 90 4RF Rx Instructions: increased dose/use treatment 4 times/day as needed NOT SENT polyethylene glycol 3350 [Miralax] 17 gram/dose powder 17 g PO DAILY PRN (Reason: constipation) Rx Instructions: 06/19/22 instructed by PCP to take 1/2 cap daily, may reduce to half cap three times per week if daily is too much nystatin 100,000 unit/gram powder 1 applic topical BID Qty: 60 12RF acetylcysteine [NAC] 600 mg capsule 600 mg PO BID Qty: 60 12RF sulfamethoxazole-trimethoprim 200-40 mg/5 mL suspension 5 ml PO BID 28 Days Qty: 280 6RF melatonin 3 MG tablet 3 mg PO HS levetiracetam 500 mg tablet 500 mg PO DAILY Patient Comments: TAKE ONE TABLET BY MOUTH TWICE A DAY losartan 50 mg tablet 50 mg PO DAILY Patient Comments: TAKE ONE TABLET BY MOUTH EVERY DAY Align 4 mg Capsule 4 mg PO QPM ferrous sulfate [FeroSul] 325 mg (65 mg iron) tablet 325 mg PO DAILY Patient Comments: TAKE 1 TABLET VIA FEEDING TUBE ONCE DAILY ferrous sulfate [Feosol] 325 mg (65 mg iron) tablet 325 mg PO DAILY Align Jr 10.5 mg (10 million cell) tablet,chewable 10.5 mg PO DAILY vit 14-iron fum-folic 29 mg iron- 1 mg tablet,chewable 1 tab PO DAILY Discharge Instructions Instructions: How to Care for Your Denny Catheter, Urinary Retention (DC) Additional Instructions: You were seen in the emergency department today for evaluation of urinary retention after surgery. In our department you had a full physical examination performed and had a Denny catheter placed. You did not have any signs of urinary tract infection. You have an increased oxygen need after your surgery, which is likely due to decreased expansion of your lungs. We improved your oxygenation with a controlled cough and you should continue to use these pulmonary hygiene techniques, such as deep breath, forceful coughing and clearing of secretions, and can continue to use your oxygen as needed. You need to follow-up with the urology clinic to discuss this visits and ongoing management of your Denny catheter. Please follow all postoperative instructions per [facility], and thank you for allowing us to be part of your care Referrals: Nicholas Perdomo MD [ [facility] STAFF PHYSICIAN] - 2 weeks HPI General Mode of arrival: ambulatory . Date/Time Provider Initiated Documentation: 04/15/24 21:08 . Limitations to Documentation: no limitations . Information obtained by: patient, family and old records reviewed . HPI Narrative: HPI: This is a 79-year-old male patient with a past medical history significant for laryngectomy after laryngeal cancer, COPD, G-tube dependence, and a recent admission to [facility] for intracerebral arterial embolization (potentially aborted per my read of the discharge paperwork provided by family), who is presenting for urinary retention. The patient reports that he was instructed after his discharge today to present to a hospital if he had not urinated by 8 PM. He states that he has not been able to pass urine today despite making attempts. He reports that he has not had any pain or discomfort, and has a history of lower urinary tract obstructive symptoms in the past that required Denny catheter. The patient reports that he had to leave the hospital with a slightly higher oxygen concentration that is typical for him, currently on 6 L by trach mask. He has a junky cough which is baseline for him, states that his work of breathing is not worse than typical. He has no other complaints at this time. Exam: Gen: Awake and alert, in no apparent distress HEENT: Non-icteric sclera Neck: Supple, stoma well-healed Lungs: No apparent respiratory distress, normal respiratory effort. Lung sounds reveal diffuse coarse crackles throughout CV: Appears well perfused, strong distal pulses Abdomen: Non-distended, soft, fullness in the suprapubic region without tenderness, rigidity, rebound, or guarding MSK: Moves 4 extremities without apparent limitation in ROM Skin: Visualized skin without rashes, cyanosis. Neuro: No obvious focal deficits or facial asymmetry. Speaks using a voice box device Psych: Appropriate for situation. MDM: This is a 79-year-old male patient presenting for evaluation of urinary retention after surgery. My differential includes but is not limited to lower urinary tract obstruction, dehydration and low urine volume, certainly considered urinary tract infection. Additionally I considered aspiration, atelectasis, pneumonitis as a cause of his hypoxia and increased oxygen requirement after surgery. Of note, his oxygen saturations increased significantly from 88% to 96% after 2 guided coughs. Bladder scan reading only approximately 150 mL, but given the notable suprapubic fullness, and the lack of ability to urinate I believe is reasonable to move forward with a Denny catheter placement. We will obtain a chest x-ray as well as a urinalysis. ED Course: Urinalysis shows hematuria consistent with placement of a Denny, but no evidence of infectious findings. He drained greater than 200 cc of yellow urine, and this will stay in place until he can follow-up with urology. The patient had a chest x-ray performed, that did not show any gross lobar consolidations or other concerning findings, and his oxygenation improved dramatically after deep breath and cough. I counseled him on continuing good pulmonary hygiene, and utilizing his oxygen to maintain a sat greater than 93%. At this time, the patient has had a full medical evaluation and is safe for discharge to home. They are hemodynamically stable, ambulatory, and tolerating PO. They are understanding of the follow-up plan and return precautions. They left our facility without incident. Brisa Titus MD Related Data Home Medications ?Medication ?Instructions ?Recorded ?Confirmed omeprazole 20 mg capsule,delayed 20 mg feeding tube BID #90 caps 10/05/19 03/13/24 release melatonin 3 mg tablet 3 mg PO HS 10/29/19 03/13/24 rosuvastatin 40 mg tablet 40 mg feeding tube HS #90 tabs 12/14/19 03/13/24 acetylcysteine 100 mg/mL (10 %) 4 ml inhalation BID 07/05/20 03/11/24 solution ipratropium 0.5 mg-albuterol 3 mg 3 ml IN QID PRN shortness of 07/30/20 03/13/24 (2.5 mg base)/3 mL nebulization breath or wheezing #90 mL soln Bifidobacterium infantis 4 mg 4 mg PO QPM 08/03/21 03/11/24 capsule (Align) ferrous sulfate 325 mg (65 mg 325 mg PO DAILY 08/05/21 03/11/24 iron) tablet (FeroSul) ropinirole 1 mg tablet 1 mg PO BID 01/07/22 03/13/24 acetaminophen 500 mg tablet 1,000 mg PO BID PRN 03/05/22 03/13/24 (Tylenol Extra Strength) polyethylene glycol 3350 17 17 g PO DAILY PRN constipation 06/19/22 03/13/24 gram/dose oral powder (Miralax) nystatin 100,000 unit/gram topical 1 applic topical BID #60 grams 02/19/23 03/13/24 powder acetylcysteine 600 mg capsule (NAC) 600 mg PO BID #60 caps 07/28/23 03/13/24 levothyroxine 88 mcg capsule 88 mcg PO DAILY 09/02/23 03/13/24 metoprolol succinate 25 mg 25 mg PO DAILY 09/02/23 03/13/24 tablet,extended release 24 hr gabapentin 300 mg capsule 300 mg PO QID #360 caps 10/29/23 03/13/24 levetiracetam 500 mg tablet 500 mg PO DAILY 02/17/24 03/13/24 losartan 50 mg tablet 50 mg PO DAILY 02/17/24 03/13/24 sertraline 50 mg tablet 50 mg PO DAILY #30 tabs 02/23/24 03/13/24 finasteride 5 mg tablet 5 mg PO DAILY #90 tabs 03/02/24 03/13/24 tamsulosin 0.4 mg capsule (Flomax) 0.4 mg PO DAILY #90 caps 03/02/24 03/13/24 Bifidobacterium infantis 10.5 mg 10.5 mg PO DAILY 03/13/24 03/13/24 (10 million cell) chewable tablet (Align Jr) ferrous sulfate 325 mg (65 mg 325 mg PO DAILY 03/13/24 03/13/24 iron) tablet (Feosol) vit 14-ferrous fum 29 mg 1 tab PO DAILY 03/13/24 03/13/24 iron-folic acid 1 mg chewable tablet sulfamethoxazole 200 5 ml PO BID 28 days #280 mL 03/29/24 mg-trimethoprim 40 mg/5 mL oral suspension Previous Rx's ?Medication ?Instructions ?Recorded omeprazole 20 mg capsule,delayed 20 mg feeding tube BID #90 caps 10/05/19 release rosuvastatin 40 mg tablet 40 mg feeding tube HS #90 tabs 12/14/19 ipratropium 0.5 mg-albuterol 3 mg 3 ml IN QID PRN shortness of 07/30/20 (2.5 mg base)/3 mL nebulization breath or wheezing #90 mL soln nystatin 100,000 unit/gram topical 1 applic topical BID #60 grams 02/19/23 powder acetylcysteine 600 mg capsule (NAC) 600 mg PO BID #60 caps 07/28/23 gabapentin 300 mg capsule 300 mg PO QID #360 caps 10/29/23 sertraline 50 mg tablet 50 mg PO DAILY #30 tabs 02/23/24 finasteride 5 mg tablet 5 mg PO DAILY #90 tabs 03/02/24 tamsulosin 0.4 mg capsule (Flomax) 0.4 mg PO DAILY #90 caps 03/02/24 sulfamethoxazole 200 5 ml PO BID 28 days #280 mL 03/29/24 mg-trimethoprim 40 mg/5 mL oral suspension Allergies Allergy/AdvReac Type Severity Reaction Status Date / Time pollen extracts Allergy Mild Wheezing Verified 04/15/24 21:16 Tetracyclines Allergy Unknown SKIN RASH Verified 04/15/24 21:16 General Stated Complaint: Urinary CHER: 3 Course Vital Signs Vital signs: Vital Signs Temperature 36.4 C L 04/15/24 21:08 Pulse 65 04/15/24 21:08 Respiratory Rate 12 04/15/24 21:08 Blood Pressure 87/50 L 04/15/24 21:08 Pulse Oximetry 88 L 04/15/24 21:08 Temperature 36.4 C L 04/15/24 21:08 Temperature Source Temporal Artery Scan 04/15/24 21:08 Pulse 65 04/15/24 21:08 Respiratory Rate 12 04/15/24 21:08 Blood Pressure 87/50 L 04/15/24 21:08 Blood Pressure Position Sitting 04/15/24 21:08 Pulse Oximetry 88 L 04/15/24 21:08 Pain Level 0 04/15/24 21:08 Medical Decision Making Quality:SDOH Health Related Social Needs: No Data to Display PFSH All Active Problems (Updated 04/15/24 @ 22:08 by Brisa Titus MD) Hypoxia (Acute) Acute urinary retention (Acute) Orthostatic hypotension (Acute) Right clavicle fracture (Acute 08/30/23) Syncope (Chronic) Ground glass opacity present on imaging of lung (Acute) Subdural hematoma (Acute) Pulmonary edema (Acute) Fracture of thumb, left, closed (Acute) Acute non-ST elevation myocardial infarction (NSTEMI) (Acute) Arm pain (Acute) Palliative care patient (Acute) Hemoptysis (Acute) Caregiver stress (Acute) Nausea & vomiting (Acute) Regurgitation of food (Acute) Pulmonary embolism (Chronic) Uses feeding tube (Acute) Gross hematuria (Acute) Ambulatory dysfunction (Acute) Leukocytosis (leucocytosis) (Acute) UTI (urinary tract infection) (Acute) Multiple subsegmental pulmonary emboli without acute cor pulmonale (Acute) C1 cervical fracture (Acute) Gastrostomy tube dysfunction (Acute) Advance care planning (Acute) Encounter for hospice care discussion (Acute) Unintentional weight loss of 10% body weight within 6 months (Acute) Dysuria (Acute) Malfunctioning jejunostomy tube (Acute) Need for follow-up by social work administrator (Acute) Dysphagia (Acute) Weakness (Acute) Impaired instrumental activities of daily living (Acute) Plantar fascial fibromatosis (Acute) Feeding tube dysfunction (Acute) Sensorineural hearing loss (SNHL) of both ears (Acute) Otalgia of right ear (Acute) Neck pain on right side (Acute) Neck pain on right side (Acute) Full code status (Acute) Need for home health care (Acute) MRSA pneumonia (Acute) pt likely colonized Occlusion of right vertebral artery (Acute) Hypoxemia (Acute) Complication of feeding tube (Acute) Peripheral neuropathy (Acute 02/21/15) PAOD (peripheral arterial occlusive disease) (Acute) Laryngeal cancer (Acute) COPD (chronic obstructive pulmonary disease) (Chronic) G tube feedings (Acute) 20F 3.0cm 11/30/22. Routine change every 4 months. 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 Hypertension Tobacco use COPD (chronic obstructive pulmonary disease) Post herpetic neuralgia Hypothyroidism Hyperlipemia Depression Anxiety Anemia Conjunctivitis, chronic Surgical History S/P AAA (abdominal aortic aneurysm) repair Status post laryngectomy History of esophagogastroduodenoscopy (EGD) (~08/10/19) Daron Casper APRN @ [facility] [place]: hiatal hernia, GERD, Reyes's esophagitis, neuromuscular dysfunction History of laryngectomy Status post cardiac catheterization Status post cataract extraction and insertion of intraocular lens of right eye (07/12/18) History of tarsorrhaphy Status post cataract extraction and insertion of intraocular lens of left eye (04/30/12) 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) Sin-mullins button placed by Dr Elia Mcdonald, [facility] PROCEDURES RT/LEFT HEART CARD CATH COMPLETE LARYNGECTOMY Esophagoplasty EGD - MAC (07/06/17) Colonoscopy - MAC (12/22/16) History of radical laryngectomy Family History Nephew Throat cancer Maternal Cousin Cancer Social History Smoking/Tobacco Use Status: Former Tobacco Use Quit Date: 04/23/13 Tobacco: How many years used: 20 Smoking risk assessment performed?: Yes Alcohol Intake: never Drug use: Never Substance use type: does not use Housing: apartment Current gender identity: male Do you feel safe at home: Yes Do you feel safe in your relationship?: Yes
[2024-04-15] MEDS: Lidocaine 2% Jelly 6 ML SYR (21:38)
--- NOTE | 2024-04-15 21:46 | DI.RAD_ITS ---
Exam(s) XR PORTABLE CHEST AP EXAM: XR PORTABLE CHEST AP CLINICAL HISTORY: hypoxia after surgery TECHNIQUE: 2D digital imaging was performed. COMPARISON: CT CT CHEST WO from 10/21/2023 FINDINGS: LUNGS: Chronic interstitial changes. No focal infiltrate. No pneumothorax or pleural effusion seen. Biapical pleural scarring. Surgical clips at left lung apex. HEART: Normal size. AORTA: Tortuous. Stent noted. BONES: Old right rib fractures. Spine mainly obscured. Soft tissues: Unremarkable. IMPRESSION: No acute findings. DATA REPOSITORY: RADIATION DOSE DELIVERED:
[2024-04-15 21:50] LABS: Bilirubin Small (Negative); Blood Moderate (Negative); Clarity Clear (Clear); Glucose Negative (Negative); Ketones Trace mg/dL (Negative); Leukocyte Esterase Negative (Negative); Nitrite Negative (Negative); Urobilinogen 0.2 mg/dL (Up to 0.2); pH 5.5 (5-8)
[2024-04-15 21:57] LABS: Bacteria Negative HPF (Negative); C & S Indicated? No; Crystals Negative HPF (Negative); Epithelial Cells Rare HPF (Negative); Mucus Trace (Negative); RBC 20-50 HPF (0-2)
--- NOTE | 2024-04-15 22:36 | DI.VRAD_ITS ---
PROCEDURE INFORMATION: Exam: XR Chest Exam date and time: 04/15/2024 9:46 PM Age: 79 years old Clinical indication: Other: Hypoxia after surgery TECHNIQUE: Imaging protocol: Radiologic exam of the chest. Views: 1 view. COMPARISON: CT CHEST WO 10/21/2023 1:06 PM FINDINGS: Lungs: Mild interstitial prominence or fibrosis both lung bases. No consolidation. Pleural spaces: Unremarkable. No pleural effusion. No pneumothorax. Heart/Mediastinum: Mild cardiomegaly. Vasculature: Wall stent distal descending and upper abdominal aorta. Bones/joints: Old right rib fractures. IMPRESSION: Mild interstitial prominence or fibrosis both lung bases. No consolidation. Dictated and Authenticated by: Jhonny Chambers MD. Ordering:JAROD Donohue MD
== END 2024-04-15 22:30 | disposition home or self-care (01) ==
PROVIDERS: Emergency Provider Emergency Medicine; PCP Physician Assistant Medical
DX: R33.8 Other retention of urine (principal); Z98.890 Other specified postprocedural states; Z85.21 Personal history of malignant neoplasm of larynx; J44.9 Chronic obstructive pulmonary disease, unspecified; Z93.1 Gastrostomy status; Z99.81 Dependence on supplemental oxygen
CPT/HCPCS: 51702; 51798; 99283; 71045; 81003; 81015

== ENCOUNTER 2024-04-16 07:29 | Emergency (ER) | payer MEDICARE, MEDICAID, SELFPAY ==
[2024-04-16] VITALS (30 sets, daily range): BP systolic 61–223; BP diastolic 41–113; PULSE 40–106; RESP 11–27; TEMP 37–37.2; O2SAT 87–99
--- NOTE | 2024-04-16 07:56 | ED.GENADUL_ITS ---
Discharge Plan Disposition Patient Disposition: Home Discharge Details Clinical Impression: Complication of Denny catheter Primary Care Provider: Nazia Chan ED Provider: So Whalen Home Meds and New Rx's Prescriptions: No Action ropinirole 1 mg tablet 1 mg PO BID acetaminophen [Tylenol Extra Strength] 500 mg tablet 1,000 mg PO BID PRN tamsulosin [Flomax] 0.4 mg capsule 0.4 mg PO DAILY Qty: 90 3RF finasteride 5 mg tablet 5 mg PO DAILY Qty: 90 3RF omeprazole 20 mg capsule,delayed release(DR/EC) 20 mg feeding tube BID Qty: 90 4RF acetylcysteine 100 mg/mL (10 %) solution 4 ml inhalation BID metoprolol succinate 25 mg tablet extended release 24 hr 25 mg PO DAILY levothyroxine 88 mcg capsule 88 mcg PO DAILY gabapentin 300 mg capsule 300 mg PO QID Qty: 360 3RF sertraline 50 mg tablet 50 mg PO DAILY Qty: 30 4RF rosuvastatin 40 mg tablet 40 mg feeding tube HS Qty: 90 4RF ipratropium-albuterol 0.5 mg-3 mg(2.5 mg base)/3 mL solution for nebulization 3 ml IN QID PRN (Reason: shortness of breath or wheezing) Qty: 90 4RF Rx Instructions: increased dose/use treatment 4 times/day as needed NOT SENT polyethylene glycol 3350 [Miralax] 17 gram/dose powder 17 g PO DAILY PRN (Reason: constipation) Rx Instructions: 06/19/22 instructed by PCP to take 1/2 cap daily, may reduce to half cap three times per week if daily is too much nystatin 100,000 unit/gram powder 1 applic topical BID Qty: 60 12RF acetylcysteine [NAC] 600 mg capsule 600 mg PO BID Qty: 60 12RF sulfamethoxazole-trimethoprim 200-40 mg/5 mL suspension 5 ml PO BID 28 Days Qty: 280 6RF melatonin 3 MG tablet 3 mg PO HS levetiracetam 500 mg tablet 500 mg PO DAILY Patient Comments: TAKE ONE TABLET BY MOUTH TWICE A DAY losartan 50 mg tablet 50 mg PO DAILY Patient Comments: TAKE ONE TABLET BY MOUTH EVERY DAY Align 4 mg Capsule 4 mg PO QPM ferrous sulfate [FeroSul] 325 mg (65 mg iron) tablet 325 mg PO DAILY Patient Comments: TAKE 1 TABLET VIA FEEDING TUBE ONCE DAILY ferrous sulfate [Feosol] 325 mg (65 mg iron) tablet 325 mg PO DAILY Align Jr 10.5 mg (10 million cell) tablet,chewable 10.5 mg PO DAILY vit 14-iron fum-folic 29 mg iron- 1 mg tablet,chewable 1 tab PO DAILY Discharge Instructions Instructions: How to Care for Your Denny Catheter Additional Instructions: Keep Denny catheter in place. Drain bag without removing the the bag from the catheter as instructed. A urine culture has been sent, if this grows bacteria you may need antibiotics. Continue your normal medications and tube feedings. Keep all your follow-up appointments. Discharge Data Discharge Date/Time-TO BE ENTERED AT DEPARTURE: 04/16/24 10:13 HPI General Date/Time Provider Initiated Documentation: 04/16/24 07:30 . Limitations to Documentation: physical limitation . Information obtained by: patient and family . HPI Narrative: 79-year-old gentleman with multiple medical comorbidities presents for evaluation of disconnected Denny catheter. The patient recently had general anesthesia and presented to the emergency department yesterday for acute urinary retention. A Denny catheter was placed. Sometime early this morning, Chan disconnected the catheter from the collection bag. His family member was unable to reconnect the bag so he re-presents today. He states that he feels fine and has no complaints. Related Data Home Medications ?Medication ?Instructions ?Recorded ?Confirmed omeprazole 20 mg capsule,delayed 20 mg feeding tube BID #90 caps 10/05/19 04/16/24 release melatonin 3 mg tablet 3 mg PO HS 10/29/19 04/16/24 rosuvastatin 40 mg tablet 40 mg feeding tube HS #90 tabs 12/14/19 04/16/24 acetylcysteine 100 mg/mL (10 %) 4 ml inhalation BID 07/05/20 04/16/24 solution ipratropium 0.5 mg-albuterol 3 mg 3 ml IN QID PRN shortness of 07/30/20 04/16/24 (2.5 mg base)/3 mL nebulization breath or wheezing #90 mL soln Bifidobacterium infantis 4 mg 4 mg PO QPM 08/03/21 04/16/24 capsule (Align) ferrous sulfate 325 mg (65 mg 325 mg PO DAILY 08/05/21 04/16/24 iron) tablet (FeroSul) ropinirole 1 mg tablet 1 mg PO BID 01/07/22 04/16/24 acetaminophen 500 mg tablet 1,000 mg PO BID PRN 03/05/22 04/16/24 (Tylenol Extra Strength) polyethylene glycol 3350 17 17 g PO DAILY PRN constipation 06/19/22 04/16/24 gram/dose oral powder (Miralax) nystatin 100,000 unit/gram topical 1 applic topical BID #60 grams 02/19/23 04/16/24 powder acetylcysteine 600 mg capsule (NAC) 600 mg PO BID #60 caps 07/28/23 04/16/24 levothyroxine 88 mcg capsule 88 mcg PO DAILY 09/02/23 04/16/24 metoprolol succinate 25 mg 25 mg PO DAILY 09/02/23 04/16/24 tablet,extended release 24 hr gabapentin 300 mg capsule 300 mg PO QID #360 caps 10/29/23 04/16/24 levetiracetam 500 mg tablet 500 mg PO DAILY 02/17/24 04/16/24 losartan 50 mg tablet 50 mg PO DAILY 02/17/24 04/16/24 sertraline 50 mg tablet 50 mg PO DAILY #30 tabs 02/23/24 04/16/24 finasteride 5 mg tablet 5 mg PO DAILY #90 tabs 03/02/24 04/16/24 tamsulosin 0.4 mg capsule (Flomax) 0.4 mg PO DAILY #90 caps 03/02/24 04/16/24 Bifidobacterium infantis 10.5 mg 10.5 mg PO DAILY 03/13/24 04/16/24 (10 million cell) chewable tablet (Align Jr) ferrous sulfate 325 mg (65 mg 325 mg PO DAILY 03/13/24 04/16/24 iron) tablet (Feosol) vit 14-ferrous fum 29 mg 1 tab PO DAILY 03/13/24 04/16/24 iron-folic acid 1 mg chewable tablet sulfamethoxazole 200 5 ml PO BID 28 days #280 mL 03/29/24 04/16/24 mg-trimethoprim 40 mg/5 mL oral suspension Previous Rx's ?Medication ?Instructions ?Recorded omeprazole 20 mg capsule,delayed 20 mg feeding tube BID #90 caps 10/05/19 release rosuvastatin 40 mg tablet 40 mg feeding tube HS #90 tabs 12/14/19 ipratropium 0.5 mg-albuterol 3 mg 3 ml IN QID PRN shortness of 07/30/20 (2.5 mg base)/3 mL nebulization breath or wheezing #90 mL soln nystatin 100,000 unit/gram topical 1 applic topical BID #60 grams 02/19/23 powder acetylcysteine 600 mg capsule (NAC) 600 mg PO BID #60 caps 07/28/23 gabapentin 300 mg capsule 300 mg PO QID #360 caps 10/29/23 sertraline 50 mg tablet 50 mg PO DAILY #30 tabs 02/23/24 finasteride 5 mg tablet 5 mg PO DAILY #90 tabs 03/02/24 tamsulosin 0.4 mg capsule (Flomax) 0.4 mg PO DAILY #90 caps 03/02/24 sulfamethoxazole 200 5 ml PO BID 28 days #280 mL 03/29/24 mg-trimethoprim 40 mg/5 mL oral suspension Allergies Allergy/AdvReac Type Severity Reaction Status Date / Time pollen extracts Allergy Mild Wheezing Verified 04/16/24 07:39 Tetracyclines Allergy Unknown SKIN RASH Verified 04/16/24 07:39 General Stated Complaint: AMS/LOC CHER: 2 Exam Narrative Exam Narrative: Review of Systems: All systems reviewed & are unremarkable except as noted in HPI and below Well-developed, no acute distress Laryngectomy, stoma appears normal RRR Unlabored respiratory effort , no hypoxia Nondistended abdomen , G-tube in place Denny catheter inserted and penis, catheter not connected to bag Course Vital Signs Vital signs: Vital Signs Pulse 68 04/16/24 07:39 Respiratory Rate 16 04/16/24 07:39 Blood Pressure 61/43 L 04/16/24 07:39 Pulse Oximetry 92 04/16/24 07:39 Pulse 68 04/16/24 07:39 Respiratory Rate 16 04/16/24 07:39 Respiratory Effort Normal, Non-Labored, Short of Breath 04/16/24 07:45 Blood Pressure 61/43 L 04/16/24 07:39 Blood Pressure Position Sitting 04/16/24 07:39 Pulse Oximetry 92 04/16/24 07:39 Oxygen Delivery Method Trach Collar 04/16/24 07:39 Oxygen Flow Rate 3 04/16/24 07:39 Pain Level 10 04/16/24 07:39 Comment pt 'always in pain' 04/16/24 07:39 Medical Decision Making Emergent evaluation of this eruption in the Denny catheter. Patient was evaluated in the emergency department and Denny catheter was placed last night. At some point the tubing became disconnected. Will exchange Denny catheter. Initial blood pressure on arrival was in the 60s. But repeat blood pressure was over 200 and then has maintained in the 1 teens. I suspect that this is more of a user error and not necessarily hypotension secondary to sepsis or other overwhelming infection. Denny exchanged. Urinalysis obtained. There are a few white blood cells, likely secondary to the presence of blood and not infectious. A culture has been sent. Recommend continued home care and close follow-up with PCP and urology. Quality:SDOH Health Related Social Needs: No Data to Display [facility] All Active Problems (Updated 04/16/24 @ 09:42 by So Whalen MD) Complication of Denny catheter (Acute) Hypoxia (Acute) Acute urinary retention (Acute) Orthostatic hypotension (Acute) Right clavicle fracture (Acute 08/30/23) Syncope (Chronic) Ground glass opacity present on imaging of lung (Acute) Subdural hematoma (Acute) Pulmonary edema (Acute) Fracture of thumb, left, closed (Acute) Acute non-ST elevation myocardial infarction (NSTEMI) (Acute) Arm pain (Acute) Palliative care patient (Acute) Hemoptysis (Acute) Caregiver stress (Acute) Nausea & vomiting (Acute) Regurgitation of food (Acute) Pulmonary embolism (Chronic) Uses feeding tube (Acute) Gross hematuria (Acute) Ambulatory dysfunction (Acute) Leukocytosis (leucocytosis) (Acute) UTI (urinary tract infection) (Acute) Multiple subsegmental pulmonary emboli without acute cor pulmonale (Acute) C1 cervical fracture (Acute) Gastrostomy tube dysfunction (Acute) Advance care planning (Acute) Encounter for hospice care discussion (Acute) Unintentional weight loss of 10% body weight within 6 months (Acute) Dysuria (Acute) Malfunctioning jejunostomy tube (Acute) Need for follow-up by social work supervisor (Acute) Dysphagia (Acute) Weakness (Acute) Impaired instrumental activities of daily living (Acute) Plantar fascial fibromatosis (Acute) Feeding tube dysfunction (Acute) Sensorineural hearing loss (SNHL) of both ears (Acute) Otalgia of right ear (Acute) Neck pain on right side (Acute) Neck pain on right side (Acute) Full code status (Acute) Need for home health care (Acute) MRSA pneumonia (Acute) pt likely colonized Occlusion of right vertebral artery (Acute) Hypoxemia (Acute) Complication of feeding tube (Acute) Peripheral neuropathy (Acute 02/21/15) PAOD (peripheral arterial occlusive disease) (Acute) Laryngeal cancer (Acute) COPD (chronic obstructive pulmonary disease) (Chronic) G tube feedings (Acute) 20F 3.0cm 11/30/22. Routine change every 4 months. 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 Hypertension Tobacco use COPD (chronic obstructive pulmonary disease) Post herpetic neuralgia Hypothyroidism Hyperlipemia Depression Anxiety Anemia Conjunctivitis, chronic Surgical History S/P AAA (abdominal aortic aneurysm) repair Status post laryngectomy History of esophagogastroduodenoscopy (EGD) (~08/10/19) Daron Casper APRN @ [facility] [place]: hiatal hernia, GERD, Reyes's esophagitis, neuromuscular dysfunction History of laryngectomy Status post cardiac catheterization Status post cataract extraction and insertion of intraocular lens of right eye (07/12/18) History of tarsorrhaphy Status post cataract extraction and insertion of intraocular lens of left eye (04/30/12) 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) Sin-mullins button placed by Dr Elia Mcdonald, [facility] PROCEDURES RT/LEFT HEART CARD CATH COMPLETE LARYNGECTOMY Esophagoplasty EGD - MAC (07/06/17) Colonoscopy - MAC (12/22/16) History of radical laryngectomy Family History Nephew Throat cancer Maternal Cousin Cancer Social History Smoking/Tobacco Use Status: Former Tobacco Use Quit Date: 04/23/13 Tobacco: How many years used: 20 Smoking risk assessment performed?: Yes Alcohol Intake: never Drug use: Never Substance use type: does not use Housing: apartment Current gender identity: male Do you feel safe at home: Yes Do you feel safe in your relationship?: Yes
[2024-04-16 09:24] LABS: Bilirubin Small (Negative); Blood Large (Negative); Glucose Negative (Negative); Ketones 15 mg/dL (Negative); Leukocyte Esterase Trace (Negative); Nitrite Negative (Negative); Specific Gravity 1.025 (1.005-1.025); Urobilinogen 0.2 mg/dL (Up to 0.2); pH 5.5 (5-8)
[2024-04-16 09:27] LABS: Clarity Cloudy (Clear)
[2024-04-16 09:35] LABS: Bacteria Few HPF (Negative); C & S Indicated? Yes; Casts Negative LPF (Negative); Crystals Negative HPF (Negative); Epithelial Cells Negative HPF (Negative); Mucus Negative (Negative); Other Cells Rare Renal (Negative); RBC >50 HPF (0-2)
--- NOTE | 2024-04-16 11:22 | RESPIRATORY ---
.24 ED called to assist with trach pt; when this RT arrived pt was in no distress; RN report that she tried to suction him for thick large amounts of sputum. This RT placed pt on Airvo High Flow System for humidity, pt oxygenating well on home O2 of 2-5L trach mask. Pt placed on 37degrees, 55L flow, 44% O2. Suctioned external part of pt's stoma while pt coughed; sxn a large amount of thick white sputum. Returned to ED to titrate HFNC and suction pt; pt again sxn for a large amount of white thick sputum; pt not titrated due to discharge; pt placed back on home O2 of 4L trach mask.
== END 2024-04-16 10:13 | disposition home or self-care (01) ==
PROVIDERS: Emergency Provider Emergency Medicine; PCP Physician Assistant Medical
DX: T83.028A Displacement of other urinary catheter, initial encounter (principal); I10 Essential (primary) hypertension; E78.5 Hyperlipidemia, unspecified; I25.10 Atherosclerotic heart disease of native coronary artery without angina pectoris; Z93.1 Gastrostomy status; Z87.891 Personal history of nicotine dependence
CPT/HCPCS: 99284; 81003; 81015; 87086; 99283

== ENCOUNTER 2024-04-22 20:59 | Emergency (ER) | payer MEDICARE, MEDICAID, SELFPAY ==
[2024-04-22 21:04] VITALS: BP 116/99; PULSE 55; RESP 16; TEMP 36.9; O2SAT 96
--- NOTE | 2024-04-22 22:12 | NUR.NOTE ---
Nursing Note: unable to pass wilson cath x2 and using a coude cath, pt has resistance near his prostate and bladder scan over 309. @nd attempt made by nursing loading rack supervisor and unsuccessful. Provider aware
[2024-04-22] MEDS: Lidocaine 2% Jelly 6 ML SYR (22:23)
--- NOTE | 2024-04-22 23:53 | W.ED.GENAD ---
Discharge Plan Disposition Patient Disposition: Transfer-Acute Inpatient Care Specific Acute Inpt Facility: [facility] Condition: Stable Discharge Details Chief Complaint: Urinary Clinical Impression: Acute urinary retention Primary Care Provider: Nazia Chan ED Provider: So Whalen Home Meds and New Rx's Prescriptions: No Action ropinirole 1 mg tablet 1 mg PO BID acetaminophen [Tylenol Extra Strength] 500 mg tablet 1,000 mg PO BID PRN tamsulosin [Flomax] 0.4 mg capsule 0.4 mg PO DAILY Qty: 90 3RF finasteride 5 mg tablet 5 mg PO DAILY Qty: 90 3RF omeprazole 20 mg capsule,delayed release(DR/EC) 20 mg feeding tube BID Qty: 90 4RF acetylcysteine 100 mg/mL (10 %) solution 4 ml inhalation BID metoprolol succinate 25 mg tablet extended release 24 hr 25 mg PO DAILY levothyroxine 88 mcg capsule 88 mcg PO DAILY gabapentin 300 mg capsule 300 mg PO QID Qty: 360 3RF sertraline 50 mg tablet 50 mg PO DAILY Qty: 30 4RF rosuvastatin 40 mg tablet 40 mg feeding tube HS Qty: 90 4RF ipratropium-albuterol 0.5 mg-3 mg(2.5 mg base)/3 mL solution for nebulization 3 ml IN QID PRN (Reason: shortness of breath or wheezing) Qty: 90 4RF Rx Instructions: increased dose/use treatment 4 times/day as needed NOT SENT polyethylene glycol 3350 [Miralax] 17 gram/dose powder 17 g PO DAILY PRN (Reason: constipation) Rx Instructions: 06/19/22 instructed by PCP to take 1/2 cap daily, may reduce to half cap three times per week if daily is too much nystatin 100,000 unit/gram powder 1 applic topical BID Qty: 60 12RF acetylcysteine [NAC] 600 mg capsule 600 mg PO BID Qty: 60 12RF sulfamethoxazole-trimethoprim 200-40 mg/5 mL suspension 5 ml PO BID 28 Days Qty: 280 6RF melatonin 3 MG tablet 3 mg PO HS levetiracetam 500 mg tablet 500 mg PO DAILY Patient Comments: TAKE ONE TABLET BY MOUTH TWICE A DAY losartan 50 mg tablet 50 mg PO DAILY Patient Comments: TAKE ONE TABLET BY MOUTH EVERY DAY Align 4 mg Capsule 4 mg PO QPM ferrous sulfate [FeroSul] 325 mg (65 mg iron) tablet 325 mg PO DAILY Patient Comments: TAKE 1 TABLET VIA FEEDING TUBE ONCE DAILY ferrous sulfate [Feosol] 325 mg (65 mg iron) tablet 325 mg PO DAILY Align Jr 10.5 mg (10 million cell) tablet,chewable 10.5 mg PO DAILY vit 14-iron fum-folic 29 mg iron- 1 mg tablet,chewable 1 tab PO DAILY HPI General Date/Time Provider Initiated Documentation: 04/22/24 21:25. Limitations to Documentation: physical limitation. Information obtained by: patient and family. HPI Narrative: 79-year-old gentleman with complex medical history including laryngectomy, G-tube dependence, urinary retention presents for evaluation of urinary retention. Patient has had a Denny catheter in place and this morning it was removed for voiding trial by home health. The patient has had the Denny catheter removed around 11 AM. He has not had any urine output since that time. Home health was unable to put the catheter back in so they were referred to the emergency department. Related Data Home Medications ?Medication ?Instructions ?Recorded ?Confirmed omeprazole 20 mg capsule,delayed 20 mg feeding tube BID #90 caps 10/05/19 04/22/24 release melatonin 3 mg tablet 3 mg PO HS 10/29/19 04/22/24 rosuvastatin 40 mg tablet 40 mg feeding tube HS #90 tabs 12/14/19 04/22/24 acetylcysteine 100 mg/mL (10 %) 4 ml inhalation BID 07/05/20 04/22/24 solution ipratropium 0.5 mg-albuterol 3 mg 3 ml IN QID PRN shortness of 07/30/20 04/22/24 (2.5 mg base)/3 mL nebulization breath or wheezing #90 mL soln Bifidobacterium infantis 4 mg 4 mg PO QPM 08/03/21 04/22/24 capsule (Align) ferrous sulfate 325 mg (65 mg 325 mg PO DAILY 08/05/21 04/22/24 iron) tablet (FeroSul) ropinirole 1 mg tablet 1 mg PO BID 01/07/22 04/22/24 acetaminophen 500 mg tablet 1,000 mg PO BID PRN 03/05/22 04/22/24 (Tylenol Extra Strength) polyethylene glycol 3350 17 17 g PO DAILY PRN constipation 06/19/22 04/22/24 gram/dose oral powder (Miralax) nystatin 100,000 unit/gram topical 1 applic topical BID #60 grams 02/19/23 04/22/24 powder acetylcysteine 600 mg capsule (NAC) 600 mg PO BID #60 caps 07/28/23 04/22/24 levothyroxine 88 mcg capsule 88 mcg PO DAILY 09/02/23 04/22/24 metoprolol succinate 25 mg 25 mg PO DAILY 09/02/23 04/22/24 tablet,extended release 24 hr gabapentin 300 mg capsule 300 mg PO QID #360 caps 10/29/23 04/22/24 levetiracetam 500 mg tablet 500 mg PO DAILY 02/17/24 04/22/24 losartan 50 mg tablet 50 mg PO DAILY 02/17/24 04/22/24 sertraline 50 mg tablet 50 mg PO DAILY #30 tabs 02/23/24 04/22/24 finasteride 5 mg tablet 5 mg PO DAILY #90 tabs 03/02/24 04/22/24 tamsulosin 0.4 mg capsule (Flomax) 0.4 mg PO DAILY #90 caps 03/02/24 04/22/24 Bifidobacterium infantis 10.5 mg 10.5 mg PO DAILY 03/13/24 04/22/24 (10 million cell) chewable tablet (Align Jr) ferrous sulfate 325 mg (65 mg 325 mg PO DAILY 03/13/24 04/22/24 iron) tablet (Feosol) vit 14-ferrous fum 29 mg 1 tab PO DAILY 03/13/24 04/22/24 iron-folic acid 1 mg chewable tablet sulfamethoxazole 200 5 ml PO BID 28 days #280 mL 03/29/24 04/22/24 mg-trimethoprim 40 mg/5 mL oral suspension Previous Rx's ?Medication ?Instructions ?Recorded omeprazole 20 mg capsule,delayed 20 mg feeding tube BID #90 caps 10/05/19 release rosuvastatin 40 mg tablet 40 mg feeding tube HS #90 tabs 12/14/19 ipratropium 0.5 mg-albuterol 3 mg 3 ml IN QID PRN shortness of 07/30/20 (2.5 mg base)/3 mL nebulization breath or wheezing #90 mL soln nystatin 100,000 unit/gram topical 1 applic topical BID #60 grams 02/19/23 powder acetylcysteine 600 mg capsule (NAC) 600 mg PO BID #60 caps 07/28/23 gabapentin 300 mg capsule 300 mg PO QID #360 caps 10/29/23 sertraline 50 mg tablet 50 mg PO DAILY #30 tabs 02/23/24 finasteride 5 mg tablet 5 mg PO DAILY #90 tabs 03/02/24 tamsulosin 0.4 mg capsule (Flomax) 0.4 mg PO DAILY #90 caps 03/02/24 sulfamethoxazole 200 5 ml PO BID 28 days #280 mL 03/29/24 mg-trimethoprim 40 mg/5 mL oral suspension Allergies Allergy/AdvReac Type Severity Reaction Status Date / Time pollen extracts Allergy Mild Wheezing Verified 04/16/24 07:39 Tetracyclines Allergy Unknown SKIN RASH Verified 04/16/24 07:39 General Stated Complaint: Urinary CHER: 4 Exam Narrative Exam Narrative: Review of Systems: All systems reviewed & are unremarkable except as noted in HPI and below Well-developed, no acute distress Stoma in place Utilizes speech assist device Unlabored respiratory effort G-tube in place unremarkable Course Vital Signs Vital signs: Vital Signs Temperature 36.9 C 04/22/24 21:04 Pulse 55 L 04/22/24 21:04 Respiratory Rate 16 04/22/24 21:04 Blood Pressure 116/99 H 04/22/24 21:04 Pulse Oximetry 96 04/22/24 21:04 Temperature 36.9 C 04/22/24 21:04 Pulse 55 L 04/22/24 21:04 Respiratory Rate 16 04/22/24 21:04 Respiratory Effort Normal 04/22/24 21:08 Blood Pressure 116/99 H 04/22/24 21:04 Pulse Oximetry 96 04/22/24 21:04 Pain Level 0 04/22/24 21:04 Medical Decision Making Evaluation of urinary retention. Patient has ongoing and known urinary retention, Denny catheter was removed by home health for voiding trial however the patient did fail this voiding trial. Multiple attempts by 2 emergency department nurses, the housekeeping department worker myself were made however there is significant resistance at the prostate despite using different sizes of catheters including fairly large coud? catheter, unable to get the catheter past the prostate. Unfortunately Dr. Perdomo is not available. Given that we are unable to get a Denny catheter in place and that the patient is unable to spontaneously void I have reached out to [facility] for an ED to ED transfer for urology evaluation and Denny catheter placement. I offered transport POV but the patient and his family member declined and request to be taken by ambulance as she does not drive at nighttime. She was advised that someone needs to come pick them up from the hospital at [facility] as he will unlikely be admitted there. Quality:SDOH Health Related Social Needs: No Data to Display PFSH All Active Problems (Updated 04/23/24 @ 00:00 by So Whalen MD) Complication of Denny catheter (Acute) Hypoxia (Acute) Acute urinary retention (Acute) Orthostatic hypotension (Acute) Right clavicle fracture (Acute 08/30/23) Syncope (Chronic) Ground glass opacity present on imaging of lung (Acute) Subdural hematoma (Acute) Pulmonary edema (Acute) Fracture of thumb, left, closed (Acute) Acute non-ST elevation myocardial infarction (NSTEMI) (Acute) Arm pain (Acute) Palliative care patient (Acute) Hemoptysis (Acute) Caregiver stress (Acute) Nausea & vomiting (Acute) Regurgitation of food (Acute) Pulmonary embolism (Chronic) Uses feeding tube (Acute) Gross hematuria (Acute) Ambulatory dysfunction (Acute) Leukocytosis (leucocytosis) (Acute) UTI (urinary tract infection) (Acute) Multiple subsegmental pulmonary emboli without acute cor pulmonale (Acute) C1 cervical fracture (Acute) Gastrostomy tube dysfunction (Acute) Advance care planning (Acute) Encounter for hospice care discussion (Acute) Unintentional weight loss of 10% body weight within 6 months (Acute) Dysuria (Acute) Malfunctioning jejunostomy tube (Acute) Need for follow-up by social sciences instructor (Acute) Dysphagia (Acute) Weakness (Acute) Impaired instrumental activities of daily living (Acute) Plantar fascial fibromatosis (Acute) Feeding tube dysfunction (Acute) Sensorineural hearing loss (SNHL) of both ears (Acute) Otalgia of right ear (Acute) Neck pain on right side (Acute) Neck pain on right side (Acute) Full code status (Acute) Need for home health care (Acute) MRSA pneumonia (Acute) pt likely colonized Occlusion of right vertebral artery (Acute) Hypoxemia (Acute) Complication of feeding tube (Acute) Peripheral neuropathy (Acute 02/21/15) PAOD (peripheral arterial occlusive disease) (Acute) Laryngeal cancer (Acute) COPD (chronic obstructive pulmonary disease) (Chronic) G tube feedings (Acute) 20F 3.0cm 11/30/22. Routine change every 4 months. 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 Hypertension Tobacco use COPD (chronic obstructive pulmonary disease) Post herpetic neuralgia Hypothyroidism Hyperlipemia Depression Anxiety Anemia Conjunctivitis, chronic Surgical History S/P AAA (abdominal aortic aneurysm) repair Status post laryngectomy History of esophagogastroduodenoscopy (EGD) (~08/10/19) Daron Casper APRN @ [facility] [place]: hiatal hernia, GERD, Reyes's esophagitis, neuromuscular dysfunction History of laryngectomy Status post cardiac catheterization Status post cataract extraction and insertion of intraocular lens of right eye (01/28/19) History of tarsorrhaphy Status post cataract extraction and insertion of intraocular lens of left eye (04/30/12) 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) Sin-mullins button placed by Dr Elia Mcdonald [facility] PROCEDURES RT/LEFT HEART CARD CATH COMPLETE LARYNGECTOMY Esophagoplasty EGD - MAC (07/06/17) Colonoscopy - MAC (12/22/16) History of radical laryngectomy Family History Nephew Throat cancer Maternal Cousin Cancer Social History Smoking/Tobacco Use Status: Former Tobacco Use Quit Date: 04/23/13 Tobacco: How many years used: 20 Smoking risk assessment performed?: Yes Alcohol Intake: never Drug use: Never Substance use type: does not use Housing: apartment Current gender identity: male Do you feel safe at home: Yes Do you feel safe in your relationship?: Yes
== END 2024-04-23 02:22 | disposition short-term general hospital (02) ==
PROVIDERS: Emergency Provider Emergency Medicine; PCP Physician Assistant Medical
DX: N40.1 Benign prostatic hyperplasia with lower urinary tract symptoms (principal); R33.8 Other retention of urine; I25.10 Atherosclerotic heart disease of native coronary artery without angina pectoris; I25.2 Old myocardial infarction; I10 Essential (primary) hypertension; E78.5 Hyperlipidemia, unspecified; J44.9 Chronic obstructive pulmonary disease, unspecified; Z93.1 Gastrostomy status; Z85.21 Personal history of malignant neoplasm of larynx; Z90.02 Acquired absence of larynx; Z87.891 Personal history of nicotine dependence
CPT/HCPCS: 99285

== ENCOUNTER → 2024-05-16 14:21 | Outpatient (BNVA) | payer MEDICARE, MEDICAID, SELFPAY | PROVIDERS: PCP Physician Assistant Medical; Referring Provider Physician Assistant Medical; Visit Provider Urology | DX: R33.8 Other retention of urine (principal) | CPT/HCPCS: 51702 ==

== ENCOUNTER 2024-05-24 10:03 | Emergency (ER) | payer MEDICARE, MEDICAID, SELFPAY ==
[2024-05-24 10:10] VITALS: BP 105/71; PULSE 75; RESP 20; TEMP 37; O2SAT 93
[2024-05-24 10:14] VITALS: BP 105/71; PULSE 75; RESP 20; TEMP 37; O2SAT 93
--- NOTE | 2024-05-24 10:33 | W.ED.GENAD ---
Discharge Plan Disposition Patient Disposition: Home Discharge Details Clinical Impression: Congestion of upper airway Primary Care Provider: Nazia Chan ED Provider: Carline Goodwin Home Meds and New Rx's Prescriptions: Continued ropinirole 1 mg tablet 1 mg PO BID acetaminophen [Tylenol Extra Strength] 500 mg tablet 1,000 mg PO BID PRN tamsulosin [Flomax] 0.4 mg capsule 0.4 mg PO DAILY Qty: 90 3RF finasteride 5 mg tablet 5 mg PO DAILY Qty: 90 3RF omeprazole 20 mg capsule,delayed release(DR/EC) 20 mg feeding tube BID Qty: 90 4RF acetylcysteine 100 mg/mL (10 %) solution 4 ml inhalation BID metoprolol succinate 25 mg tablet extended release 24 hr 25 mg PO DAILY levothyroxine 88 mcg capsule 88 mcg PO DAILY gabapentin 300 mg capsule 300 mg PO QID Qty: 360 3RF sertraline 50 mg tablet 50 mg PO DAILY Qty: 30 4RF rosuvastatin 40 mg tablet 40 mg feeding tube HS Qty: 90 4RF ipratropium-albuterol 0.5 mg-3 mg(2.5 mg base)/3 mL solution for nebulization 3 ml IN QID PRN (Reason: shortness of breath or wheezing) Qty: 90 4RF Rx Instructions: increased dose/use treatment 4 times/day as needed NOT SENT polyethylene glycol 3350 [Miralax] 17 gram/dose powder 17 g PO DAILY PRN (Reason: constipation) Rx Instructions: 06/19/22 instructed by PCP to take 1/2 cap daily, may reduce to half cap three times per week if daily is too much nystatin 100,000 unit/gram powder 1 applic topical BID Qty: 60 12RF acetylcysteine [NAC] 600 mg capsule 600 mg PO BID Qty: 60 12RF sulfamethoxazole-trimethoprim 200-40 mg/5 mL suspension 5 ml PO BID 28 Days Qty: 280 6RF melatonin 3 MG tablet 3 mg PO HS levetiracetam 500 mg tablet 500 mg PO DAILY Patient Comments: TAKE ONE TABLET BY MOUTH TWICE A DAY losartan 50 mg tablet 50 mg PO DAILY Patient Comments: TAKE ONE TABLET BY MOUTH EVERY DAY Align 4 mg Capsule 4 mg PO QPM ferrous sulfate [FeroSul] 325 mg (65 mg iron) tablet 325 mg PO DAILY Patient Comments: TAKE 1 TABLET VIA FEEDING TUBE ONCE DAILY ferrous sulfate [Feosol] 325 mg (65 mg iron) tablet 325 mg PO DAILY Align Jr 10.5 mg (10 million cell) tablet,chewable 10.5 mg PO DAILY vit 14-iron fum-folic 29 mg iron- 1 mg tablet,chewable 1 tab PO DAILY Discharge Instructions Additional Instructions: Please follow-up with your primary care provider tomorrow as scheduled. I recommend that you discuss having at home suction available for clearing your mucus. Return to emergency care if you develop new difficulty breathing, chest pains, feeling like you are going to pass out, generalized weakness or illness, or if you are very worried and need to be rechecked again immediately Referrals: Nazia Chan [Primary Care Provider] - [facility] General Date/Time Provider Initiated Documentation: 05/24/24 10:16. [facility] Narrative: Chan is a 79 year old male who presents to the emergency department today for evaluation of shortness of breath that he attributes to mucus in his upper airway/tracheostomy. He denies fever/chills, cough, generalized feeling of unwellness, difficulty with tube feedings, abdominal pain, change in bowel or bladder function. His reports that he was feeling okay yesterday, only reported feeling like he has increased mucus today. No known recent ill contacts. Past medical history is significant for subdural hematoma, NSTEMI,, C1 fracture, gastrostomy tube, laryngeal cancer, COPD. Physical exam reassuring. Chan alert and oriented, no acute distress. Easy work of breathing, lung sounds clear bilaterally. Audible upper airway congestion noted with heavy breathing only. VS reassuring, no tachycardia or hypoxia. D/dx includes but is not limited to: Viral illness, increase mucus production due to allergens or dry air. No red flags concerning for pneumonia or other systemic illness. I independently interpreted the following tests: COVID and flu negative. While in the emergency department, Chan received deep suctioning with [place], which he performed himself after irrigation with normal saline. He tolerated procedure well, removed a large amount of thick yellow mucus. Reports he is now feeling better and good to go home. Reviewed discharge instructions with patient, including symptomatic management and red flags indicating need for return to emergency care. He does have an appointment with PCP tomorrow at [facility]. Related Data Home Medications ?Medication ?Instructions ?Recorded ?Confirmed omeprazole 20 mg capsule,delayed 20 mg feeding tube BID #90 caps 10/05/19 05/24/24 release melatonin 3 mg tablet 3 mg PO HS 10/29/19 05/24/24 rosuvastatin 40 mg tablet 40 mg feeding tube HS #90 tabs 12/14/19 05/24/24 acetylcysteine 100 mg/mL (10 %) 4 ml inhalation BID 07/05/20 05/24/24 solution ipratropium 0.5 mg-albuterol 3 mg 3 ml IN QID PRN shortness of 07/30/20 05/24/24 (2.5 mg base)/3 mL nebulization breath or wheezing #90 mL soln Bifidobacterium infantis 4 mg 4 mg PO QPM 08/03/21 05/24/24 capsule (Align) ferrous sulfate 325 mg (65 mg 325 mg PO DAILY 08/05/21 05/24/24 iron) tablet (FeroSul) ropinirole 1 mg tablet 1 mg PO BID 01/07/22 05/24/24 acetaminophen 500 mg tablet 1,000 mg PO BID PRN 03/05/22 05/24/24 (Tylenol Extra Strength) polyethylene glycol 3350 17 17 g PO DAILY PRN constipation 06/19/22 05/24/24 gram/dose oral powder (Miralax) nystatin 100,000 unit/gram topical 1 applic topical BID #60 grams 02/19/23 05/24/24 powder acetylcysteine 600 mg capsule (NAC) 600 mg PO BID #60 caps 07/28/23 05/24/24 levothyroxine 88 mcg capsule 88 mcg PO DAILY 09/02/23 05/24/24 metoprolol succinate 25 mg 25 mg PO DAILY 09/02/23 05/24/24 tablet,extended release 24 hr gabapentin 300 mg capsule 300 mg PO QID #360 caps 10/29/23 05/24/24 levetiracetam 500 mg tablet 500 mg PO DAILY 02/17/24 05/24/24 losartan 50 mg tablet 50 mg PO DAILY 02/17/24 05/24/24 sertraline 50 mg tablet 50 mg PO DAILY #30 tabs 02/23/24 05/24/24 finasteride 5 mg tablet 5 mg PO DAILY #90 tabs 03/02/24 05/24/24 tamsulosin 0.4 mg capsule (Flomax) 0.4 mg PO DAILY #90 caps 03/02/24 05/24/24 Bifidobacterium infantis 10.5 mg 10.5 mg PO DAILY 03/13/24 05/24/24 (10 million cell) chewable tablet (Align Jr) ferrous sulfate 325 mg (65 mg 325 mg PO DAILY 03/13/24 05/24/24 iron) tablet (Feosol) vit 14-ferrous fum 29 mg 1 tab PO DAILY 03/13/24 05/24/24 iron-folic acid 1 mg chewable tablet sulfamethoxazole 200 5 ml PO BID 28 days #280 mL 03/29/24 05/24/24 mg-trimethoprim 40 mg/5 mL oral suspension Previous Rx's ?Medication ?Instructions ?Recorded omeprazole 20 mg capsule,delayed 20 mg feeding tube BID #90 caps 10/05/19 release rosuvastatin 40 mg tablet 40 mg feeding tube HS #90 tabs 12/14/19 ipratropium 0.5 mg-albuterol 3 mg 3 ml IN QID PRN shortness of 07/30/20 (2.5 mg base)/3 mL nebulization breath or wheezing #90 mL soln nystatin 100,000 unit/gram topical 1 applic topical BID #60 grams 02/19/23 powder acetylcysteine 600 mg capsule (NAC) 600 mg PO BID #60 caps 07/28/23 gabapentin 300 mg capsule 300 mg PO QID #360 caps 10/29/23 sertraline 50 mg tablet 50 mg PO DAILY #30 tabs 02/23/24 finasteride 5 mg tablet 5 mg PO DAILY #90 tabs 03/02/24 tamsulosin 0.4 mg capsule (Flomax) 0.4 mg PO DAILY #90 caps 03/02/24 sulfamethoxazole 200 5 ml PO BID 28 days #280 mL 03/29/24 mg-trimethoprim 40 mg/5 mL oral suspension Allergies Allergy/AdvReac Type Severity Reaction Status Date / Time pollen extracts Allergy Mild Wheezing Verified 05/24/24 10:20 Tetracyclines Allergy Unknown SKIN RASH Verified 05/24/24 10:20 General Stated Complaint: SOB CHER: 3 Review of Systems Narrative: See HPI Exam Const General: cooperative, healthy appearing, comfortable, no acute distress, well developed and well groomed Nutritional Appearance: average body habitus Orientation: alert and oriented x3 Neck Neck: normal visual inspection and other (Tracheostomy site intact, no surrounding erythema or irritation) Resp Effort & Inspection: normal respiratory effort, no audible wheezes and no cough Auscultation: clear to auscultation bilaterally Neuro General: patient alert, patient oriented x3 and tone normal Motor: muscle tone normal throughout Course Vital Signs Vital signs: Vital Signs Temperature 37.0 C 05/24/24 10:10 Pulse 75 05/24/24 10:10 Respiratory Rate 20 05/24/24 10:10 Blood Pressure 105/71 05/24/24 10:10 Pulse Oximetry 93 05/24/24 10:10 Temperature 37.0 C 05/24/24 10:14 Pulse 75 05/24/24 10:14 Respiratory Rate 20 05/24/24 10:14 Respiratory Effort Normal 05/24/24 10:14 Blood Pressure 105/71 05/24/24 10:14 Blood Pressure Position Sitting 05/24/24 10:14 Pulse Oximetry 93 05/24/24 10:14 Oxygen Delivery Method Room Air 05/24/24 10:14 Oxygen Flow Rate 0 05/24/24 10:10 Medical Decision Making Quality:SDOH Health Related Social Needs: No Data to Display PFSH All Active Problems (Updated 05/24/24 @ 10:59 by Carline Sanon) Congestion of upper airway (Acute) Orthostatic hypotension (Acute) Right clavicle fracture (Acute 08/30/23) Syncope (Chronic) Ground glass opacity present on imaging of lung (Acute) Subdural hematoma (Acute) Pulmonary edema (Acute) Fracture of thumb, left, closed (Acute) Acute non-ST elevation myocardial infarction (NSTEMI) (Acute) Arm pain (Acute) Palliative care patient (Acute) Hemoptysis (Acute) Caregiver stress (Acute) Nausea & vomiting (Acute) Regurgitation of food (Acute) Pulmonary embolism (Chronic) Uses feeding tube (Acute) Gross hematuria (Acute) Ambulatory dysfunction (Acute) Leukocytosis (leucocytosis) (Acute) UTI (urinary tract infection) (Acute) Multiple subsegmental pulmonary emboli without acute cor pulmonale (Acute) C1 cervical fracture (Acute) Gastrostomy tube dysfunction (Acute) Advance care planning (Acute) Encounter for hospice care discussion (Acute) Unintentional weight loss of 10% body weight within 6 months (Acute) Dysuria (Acute) Malfunctioning jejunostomy tube (Acute) Need for follow-up by licensed master social worker (Acute) Dysphagia (Acute) Weakness (Acute) Impaired instrumental activities of daily living (Acute) Plantar fascial fibromatosis (Acute) Feeding tube dysfunction (Acute) Sensorineural hearing loss (SNHL) of both ears (Acute) Otalgia of right ear (Acute) Neck pain on right side (Acute) Neck pain on right side (Acute) Full code status (Acute) Need for home health care (Acute) MRSA pneumonia (Acute) pt likely colonized Occlusion of right vertebral artery (Acute) Hypoxemia (Acute) Complication of feeding tube (Acute) Peripheral neuropathy (Acute 02/21/15) PAOD (peripheral arterial occlusive disease) (Acute) Laryngeal cancer (Acute) COPD (chronic obstructive pulmonary disease) (Chronic) G tube feedings (Acute) 20F 3.0cm 11/30/22. Routine change every 4 months. 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 Hypertension Tobacco use COPD (chronic obstructive pulmonary disease) Post herpetic neuralgia Hypothyroidism Hyperlipemia Depression Anxiety Anemia Conjunctivitis, chronic Surgical History S/P AAA (abdominal aortic aneurysm) repair Status post laryngectomy History of esophagogastroduodenoscopy (EGD) (~08/10/19) Daron Casper APRN @ [facility] [place]: hiatal hernia, GERD, Reyes's esophagitis, neuromuscular dysfunction History of laryngectomy Status post cardiac catheterization Status post cataract extraction and insertion of intraocular lens of right eye (07/12/18) History of tarsorrhaphy Status post cataract extraction and insertion of intraocular lens of left eye (04/30/12) 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) Sin-mullins button placed by Dr Elia Mcdonald, [facility] PROCEDURES RT/LEFT HEART CARD CATH COMPLETE LARYNGECTOMY Esophagoplasty EGD - MAC (07/06/17) Colonoscopy - MAC (12/22/16) History of radical laryngectomy Family History Nephew Throat cancer Maternal Cousin Cancer Social History Smoking/Tobacco Use Status: Former Tobacco Use Quit Date: 04/23/13 Tobacco: How many years used: 20 Smoking risk assessment performed?: Yes Alcohol Intake: never Drug use: Never Substance use type: does not use Housing: apartment Current gender identity: male Do you feel safe at home: Yes Do you feel safe in your relationship?: Yes
[2024-05-24 10:45] VITALS: RESP 18
== END 2024-05-24 11:39 | disposition home or self-care (01) ==
PROVIDERS: Emergency Provider Nurse Practitioner Family; PCP Physician Assistant Medical
DX: R06.02 Shortness of breath (principal); J98.8 Other specified respiratory disorders; I10 Essential (primary) hypertension; E78.5 Hyperlipidemia, unspecified; J44.9 Chronic obstructive pulmonary disease, unspecified; I25.10 Atherosclerotic heart disease of native coronary artery without angina pectoris; I25.2 Old myocardial infarction; Z85.21 Personal history of malignant neoplasm of larynx; Z93.1 Gastrostomy status; Z87.891 Personal history of nicotine dependence
CPT/HCPCS: 87426; 87637; 99284

== ENCOUNTER 2024-06-11 18:17 | Emergency (ER) | payer MEDICARE, MEDICAID, SELFPAY ==
[2024-06-11] VITALS (22 sets, daily range): BP systolic 151–188; BP diastolic 55–65; PULSE 80–94; RESP 12–26; TEMP 37.9; O2SAT 89–94
--- NOTE | 2024-06-11 18:15 | RT.EKG_ITS ---
APPROVED REPORT Exam: Resting ECG Reason for Exam: Dizziness, fall Patient Location: E HR:87 bpm ECG Measurements Heart Rate 87 AXIS NH 219 P 53 QRSd 150 QRS 81 QT 388 T -11 QTc 466 Conclusion Sinus rhythm, rate 87 NH interval prolongued to 219ms RBBB No STEMI ST depression V4, V5 No significant changes from priors
--- NOTE | 2024-06-11 18:15 | DI.CT_ITS ---
Exam(s) CT HEAD CERV SPINE FACIAL WO EXAM: CT HEAD CERV SPINE FACIAL WO CLINICAL HISTORY: Fall, struck face, hx recent SDH. TECHNIQUE: Imaging Protocol: Axial computed tomography images with coronal and sagittal reformatted images were created and reviewed COMPARISON: CT CT NECK W from 09/22/[address] HEAD CERVICAL SPINE WO from 08/16/[address] HEAD WO from 03/04/2024 CR,XR XR CHEST 2V PA LATERAL from 06/11/2024 FINDINGS: CT Head: Ventricles and Extra axial spaces: Chronic mild ventricular dilatation. Mild compression of the righ t lateral ventricle now seen. Hemorrhage: Chronic bilateral subdural hematomas again noted. Interval increase in size right subdur al hematoma now measuring up to 2 cm in thickness. The density is higher than on the previous exam. There is now mild mass effect upon the sulci and mild ventricular compression. There is midline sh ift right to left of approximately 5 millimeters. There has been interval decrease in size of previo usly noted left subdural hematoma. Cerebral parenchyma: No evidence of acute intraparenchymal hemorrhage or acute infarct. Old right th alamic lacunar infarct. Microvascular changes of small vessel disease. Midline shift: None. Brainstem/Cerebellum: Normal. Calvarium: No acute fracture. Victoria hole right frontal region. Soft Tissues: Soft tissue swelling of the right frontal scalp. CT Face: Facial Bones: Mildly depressed right nasal bone fracture. Fracture of the nasal septum. The nasal septum is chronically deviated toward the left. Mildly depressed fracture of the anterior right maxi llary sinus. Nondisplaced fracture lateral wall right maxillary sinus. Nondepressed fracture at the anterior border of the right inferior orbital wall. Sinuses and Mastoids: Air fluid level in the right maxillary sinus, containing some hemorrhage. Globes, extraocular muscles, optic nerves and retrobulbar fat: Normal. Upper aerodigestive tract: Secretions noted in posterior nasopharynx. Mandible and bilateral temporomandibular joints: Degenerative changes of the temporomandibular joints , greater on the right. Soft tissues: Soft tissue swelling of the right side of the nose and anterior to the right maxillary sinus CT Cervical Spine: Bones: No acute fracture or subluxation in the visualized portions of the spine. Nonunited fractur es of the C1 ring again noted. Nondisplaced fracture at the proximal left 1st rib. Severe degenerat nathan changes. Chronic dextroscoliosis. Soft Tissues: Postsurgical changes of laryngectomy. Thyroid also resected. Some debris noted in fabiola pharynx. Lung Apices: Small portion of the lung apices are included which show biapical scarring and calcific ations. IMPRESSION: 1. Interval increase of the right subdural hematoma up to 2 cm. Mild sulcal and ventricular compress ion. Mild midline shift. Decreased size of left subdural hematoma. 2. No acute fracture in the cervical spine. Severe degenerative changes. No change in alignment. Nondisplaced fracture at the left proximal 1st rib. 3. Acute nasal fractures. Acute fractures of the anterior and lateral cao of the right maxillary s inus. RADIATION DOSE DELIVERED: Total DLP DATA REPOSITORY: All CT scans at this facility are submitted to the National Radiology Data Registry (NRDR) Dose Index Registry (DIR) with the [employer] (A[employer]). RADIATION OPTIMIZATION: All CT scans at this facility use at least one of these dose optimization te chniques: automated exposure control; mA and/or kV adjustment per patient size (includes targeted exa ms where dose is matched to clinical indication); or iterative reconstruction.
--- NOTE | 2024-06-11 18:25 | W.ED.GENAD ---
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, Dependence on supplemental oxygen, Closed fracture nasal bone, Fall from standing, History of subdural hematoma Primary Care Provider: Nazia Chan ED Provider: Brisa Titus Home Meds and New Rx's Prescriptions: New amoxicillin-pot clavulanate 875-125 mg tablet 1 tab feeding tube BID 7 Days Qty: 14 0RF No Action ropinirole 1 mg tablet 1 mg PO BID acetaminophen [Tylenol Extra Strength] 500 mg tablet 1,000 mg PO BID PRN tamsulosin [Flomax] 0.4 mg capsule 0.4 mg PO DAILY Qty: 90 3RF finasteride 5 mg tablet 5 mg PO DAILY Qty: 90 3RF omeprazole 20 mg capsule,delayed release(DR/EC) 20 mg feeding tube BID Qty: 90 4RF acetylcysteine 100 mg/mL (10 %) solution 4 ml inhalation BID metoprolol succinate 25 mg tablet extended release 24 hr 25 mg PO DAILY levothyroxine 88 mcg capsule 88 mcg PO DAILY gabapentin 300 mg capsule 300 mg PO QID Qty: 360 3RF sertraline 50 mg tablet 50 mg PO DAILY Qty: 30 4RF rosuvastatin 40 mg tablet 40 mg feeding tube HS Qty: 90 4RF ipratropium-albuterol 0.5 mg-3 mg(2.5 mg base)/3 mL solution for nebulization 3 ml IN QID PRN (Reason: shortness of breath or wheezing) Qty: 90 4RF Rx Instructions: increased dose/use treatment 4 times/day as needed NOT SENT polyethylene glycol 3350 [Miralax] 17 gram/dose powder 17 g PO DAILY PRN (Reason: constipation) Rx Instructions: 06/19/22 instructed by PCP to take 1/2 cap daily, may reduce to half cap three times per week if daily is too much nystatin 100,000 unit/gram powder 1 applic topical BID Qty: 60 12RF acetylcysteine [NAC] 600 mg capsule 600 mg PO BID Qty: 60 12RF sulfamethoxazole-trimethoprim 200-40 mg/5 mL suspension 5 ml PO BID 28 Days Qty: 280 6RF melatonin 3 MG tablet 3 mg PO HS levetiracetam 500 mg tablet 500 mg PO DAILY Patient Comments: TAKE ONE TABLET BY MOUTH TWICE A DAY losartan 50 mg tablet 50 mg PO DAILY Patient Comments: TAKE ONE TABLET BY MOUTH EVERY DAY Align 4 mg Capsule 4 mg PO QPM ferrous sulfate [FeroSul] 325 mg (65 mg iron) tablet 325 mg PO DAILY Patient Comments: TAKE 1 TABLET VIA FEEDING TUBE ONCE DAILY ferrous sulfate [Feosol] 325 mg (65 mg iron) tablet 325 mg PO DAILY Align Jr 10.5 mg (10 million cell) tablet,chewable 10.5 mg PO DAILY vit 14-iron fum-folic 29 mg iron- 1 mg tablet,chewable 1 tab PO DAILY Discharge Instructions Instructions: Facial Fracture (DC) Additional Instructions: You were seen in the emergency department today for evaluation after a fall. In our department you had a full physical examination performed, had laboratory studies that were reassuring, and had a CT scan that showed fractures of your right face and nose. These fractures do not require surgery but they do require you to be on prophylactic antibiotics for 1 week. Additionally, you will receive a phone call to schedule follow-up with the ear nose and throat clinic at [facility]. Your follow-up for your subdural hemorrhage, which was not worse on the CT scan today, we will also be moved up. The antibiotic that I am starting you on is called Augmentin, which you should crush and administer through the GI tube twice per day. Please take all this medication until it is gone, even if you start to feel better. This medication should also cover any urinary tract infection, though certainly we will call you if your urine culture shows any bacteria that require a different antibiotic. Thank you for allowing us to be part of your care. HPI General Mode of arrival: EMS. Date/Time Provider Initiated Documentation: 06/11/24 18:23. Limitations to Documentation: physical limitation. Information obtained by: patient. 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 He is presenting for evaluation after a fall with facial strike. The patient reports that he felt slightly dizzy and this caused a fall at home, striking his face on the floor, states that his dizziness is something that has occurred in the past. He is not on anticoagulants. Was able to get up and bear weight, and pivot to the stretcher without difficulty. Did note that his facial strike broke his dentures, which she took out of his mouth. He had bleeding from his bilateral nares, and a small laceration to his left forehead. Has been wearing his home oxygen by trach mask. This history was limited by the patient's need for a vocal modulator, which is exceedingly difficult to understand and muffled. The patient is unaccompanied by family members who typically translate for him. Exam: Gen: Awake and alert, in no apparent distress HEENT: Half a centimeter laceration to the superior left forehead, hemostatic, without surrounding swelling or ecchymosis. Pupils equal and reactive, no facial bone instability, blood appreciated in the bilateral nostrils without active epistaxis. No obvious deformity, no septal hematoma some blood appreciated in the posterior pharynx, top dentures have been removed. Neck: Supple, no cervical spine tenderness or step-offs Lungs: No apparent respiratory distress, normal respiratory effort. Lung sounds clear and equal bilaterally CV: Appears well perfused, heart with regular rate and rhythm, strong distal pulses Abdomen: Non-distended, soft, G-tube in place without surrounding skin changes MSK: Moves 4 extremities without apparent limitation in ROM. No T or L-spine tenderness or step-offs, pelvis stable to AP compression. Skin: Visualized skin without rashes, cyanosis. Neuro: Normal Gait, no obvious focal deficits or facial asymmetry. Speaks in full, clear sentences. Psych: Appropriate for situation. MDM: This is a 79-year-old male patient presenting for evaluation after a fall with facial strike. My differential includes but is not limited to worsening of his intracranial hemorrhage, skull fracture, facial bone fracture, cervical spine fracture. Patient has no neurodeficits to increase my concern for spinal cord injury. Regarding the etiology of his fall I certainly considered cardiac arrhythmia, ACS, metabolic electrolyte derangements, anemia, kidney injury or dehydration. I do not appreciate any significant injuries to the thorax, abdomen, pelvis, or extremities. I certainly considered orthostasis, vasovagal syncope, and infectious abnormalities such as UTI. We will obtain a CT of the patient's head, facial bones, and cervical spine. Will obtain an EKG, and laboratory studies to include CBC, CMP, magnesium, troponin, INR, and urinalysis. ED Course: Laboratory studies reveal leukocytosis to 15.7, mild anemia to 13.0 no thrombocytopenia. INR 1.0, chemistry panel with a slightly low potassium to 3.2, no evidence of significant kidney or liver dysfunction. The patient's urine shows leukocyte Estrace, pyuria and blood which may represent urinary tract infection in the setting of his leukocytosis, though certainly with chronic catheterization colonization must be considered. COVID and influenza testing was negative. EKG reviewed by myself, showing a normal sinus rhythm with unifocal PVCs but no evidence of ischemia or interval abnormality. I reviewed the patient's CT scans and discussed the findings with the neuroradiologist as well as neurosurgery from [facility]. He has a stable appearance per neurosurgery of the subdural hematoma, though neuroradiology does note a worsening compared to prior scans obtained at this facility. He does have a new right maxillary sinus fracture and right nasal bone fracture, and discussed this case with the ENT from [facility], who does not recommend any operative intervention, but will follow as an outpatient and did recommend starting the patient on Augmentin prophylaxis. The Augmentin will also likely cover the urinary tract infection, and certainly urine culture was sent and any antibiotic changes can be made in the outpatient environment. Given that the patient is largely at his baseline, and has a nonoperative injury at pattern, it is safe for him to discharge home in the care of his family and follow-up with the above-noted outpatient providers. Patient remained hemodynamically appropriate while under my care, oxygenated appropriately on his home O2 requirement, and is understanding of the follow-up plan and return precautions. He and his family left her facility without incident. Related Data Home Medications ?Medication ?Instructions ?Recorded ?Confirmed omeprazole 20 mg capsule,delayed 20 mg feeding tube BID #90 caps 10/05/19 06/11/24 release melatonin 3 mg tablet 3 mg PO HS 10/29/19 06/11/24 rosuvastatin 40 mg tablet 40 mg feeding tube HS #90 tabs 12/14/19 06/11/24 acetylcysteine 100 mg/mL (10 %) 4 ml inhalation BID 07/05/20 06/11/24 solution ipratropium 0.5 mg-albuterol 3 mg 3 ml IN QID PRN shortness of 07/30/20 06/11/24 (2.5 mg base)/3 mL nebulization breath or wheezing #90 mL soln Bifidobacterium infantis 4 mg 4 mg PO QPM 08/03/21 06/11/24 capsule (Align) ferrous sulfate 325 mg (65 mg 325 mg PO DAILY 08/05/21 06/11/24 iron) tablet (FeroSul) ropinirole 1 mg tablet 1 mg PO BID 01/07/22 06/11/24 acetaminophen 500 mg tablet 1,000 mg PO BID PRN 03/05/22 06/11/24 (Tylenol Extra Strength) polyethylene glycol 3350 17 17 g PO DAILY PRN constipation 06/19/22 06/11/24 gram/dose oral powder (Miralax) nystatin 100,000 unit/gram topical 1 applic topical BID #60 grams 02/19/23 06/11/24 powder acetylcysteine 600 mg capsule (NAC) 600 mg PO BID #60 caps 07/28/23 06/11/24 levothyroxine 88 mcg capsule 88 mcg PO DAILY 09/02/23 06/11/24 metoprolol succinate 25 mg 25 mg PO DAILY 09/02/23 06/11/24 tablet,extended release 24 hr gabapentin 300 mg capsule 300 mg PO QID #360 caps 10/29/23 06/11/24 levetiracetam 500 mg tablet 500 mg PO DAILY 02/17/24 06/11/24 losartan 50 mg tablet 50 mg PO DAILY 02/17/24 06/11/24 sertraline 50 mg tablet 50 mg PO DAILY #30 tabs 02/23/24 06/11/24 finasteride 5 mg tablet 5 mg PO DAILY #90 tabs 03/02/24 06/11/24 tamsulosin 0.4 mg capsule (Flomax) 0.4 mg PO DAILY #90 caps 03/02/24 06/11/24 Bifidobacterium infantis 10.5 mg 10.5 mg PO DAILY 03/13/24 06/11/24 (10 million cell) chewable tablet (Align Jr) ferrous sulfate 325 mg (65 mg 325 mg PO DAILY 03/13/24 06/11/24 iron) tablet (Feosol) vit 14-ferrous fum 29 mg 1 tab PO DAILY 03/13/24 06/11/24 iron-folic acid 1 mg chewable tablet sulfamethoxazole 200 5 ml PO BID 28 days #280 mL 03/29/24 06/11/24 mg-trimethoprim 40 mg/5 mL oral suspension amoxicillin 875 mg-potassium 1 tab feeding tube BID 7 days #14 06/11/24 clavulanate 125 mg tablet tabs Previous Rx's ?Medication ?Instructions ?Recorded omeprazole 20 mg capsule,delayed 20 mg feeding tube BID #90 caps 10/05/19 release rosuvastatin 40 mg tablet 40 mg feeding tube HS #90 tabs 12/14/19 ipratropium 0.5 mg-albuterol 3 mg 3 ml IN QID PRN shortness of 07/30/20 (2.5 mg base)/3 mL nebulization breath or wheezing #90 mL soln nystatin 100,000 unit/gram topical 1 applic topical BID #60 grams 02/19/23 powder acetylcysteine 600 mg capsule (NAC) 600 mg PO BID #60 caps 07/28/23 gabapentin 300 mg capsule 300 mg PO QID #360 caps 10/29/23 sertraline 50 mg tablet 50 mg PO DAILY #30 tabs 02/23/24 finasteride 5 mg tablet 5 mg PO DAILY #90 tabs 03/02/24 tamsulosin 0.4 mg capsule (Flomax) 0.4 mg PO DAILY #90 caps 03/02/24 sulfamethoxazole 200 5 ml PO BID 28 days #280 mL 03/29/24 mg-trimethoprim 40 mg/5 mL oral suspension amoxicillin 875 mg-potassium 1 tab feeding tube BID 7 days #14 06/11/24 clavulanate 125 mg tablet tabs Allergies Allergy/AdvReac Type Severity Reaction Status Date / Time pollen extracts Allergy Mild Wheezing Verified 06/11/24 18:48 Tetracyclines Allergy Unknown SKIN RASH Verified 06/11/24 18:48 General CHER: 3 Medical Decision Making Quality:SDOH Health Related Social Needs: No Data to Display PFSH All Active Problems (Updated 06/11/24 @ 22:19 by Brisa Titus MD) History of subdural hematoma (Acute) Fall from standing (Acute) Closed fracture nasal bone (Acute) Closed fracture of right maxillary sinus (Acute) Congestion of upper airway (Acute) Orthostatic hypotension (Acute) Right clavicle fracture (Acute 08/30/23) Syncope (Chronic) Ground glass opacity present on imaging of lung (Acute) Subdural hematoma (Acute) Pulmonary edema (Acute) Fracture of thumb, left, closed (Acute) Acute non-ST elevation myocardial infarction (NSTEMI) (Acute) Arm pain (Acute) Palliative care patient (Acute) Hemoptysis (Acute) Caregiver stress (Acute) Nausea & vomiting (Acute) Regurgitation of food (Acute) Pulmonary embolism (Chronic) Uses feeding tube (Acute) Gross hematuria (Acute) Ambulatory dysfunction (Acute) Leukocytosis (leucocytosis) (Acute) UTI (urinary tract infection) (Acute) Multiple subsegmental pulmonary emboli without acute cor pulmonale (Acute) C1 cervical fracture (Acute) Gastrostomy tube dysfunction (Acute) Advance care planning (Acute) Encounter for hospice care discussion (Acute) Unintentional weight loss of 10% body weight within 6 months (Acute) Dysuria (Acute) Malfunctioning jejunostomy tube (Acute) Need for follow-up by rn social services (Acute) Dysphagia (Acute) Weakness (Acute) Impaired instrumental activities of daily living (Acute) Plantar fascial fibromatosis (Acute) Feeding tube dysfunction (Acute) Sensorineural hearing loss (SNHL) of both ears (Acute) Otalgia of right ear (Acute) Neck pain on right side (Acute) Neck pain on right side (Acute) Full code status (Acute) Need for home health care (Acute) MRSA pneumonia (Acute) pt likely colonized Occlusion of right vertebral artery (Acute) Hypoxemia (Acute) Complication of feeding tube (Acute) Peripheral neuropathy (Acute 02/21/15) PAOD (peripheral arterial occlusive disease) (Acute) Laryngeal cancer (Acute) COPD (chronic obstructive pulmonary disease) (Chronic) G tube feedings (Acute) 20F 3.0cm 11/30/22. Routine change every 4 months. 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 Hypertension Tobacco use COPD (chronic obstructive pulmonary disease) Post herpetic neuralgia Hypothyroidism Hyperlipemia Depression Anxiety Anemia Conjunctivitis, chronic Surgical History S/P AAA (abdominal aortic aneurysm) repair Status post laryngectomy History of esophagogastroduodenoscopy (EGD) (~08/10/19) Daron Casper APRN @ [facility]: hiatal hernia, GERD, Reyes's esophagitis, neuromuscular dysfunction History of laryngectomy Status post cardiac catheterization Status post cataract extraction and insertion of intraocular lens of right eye (07/12/18) History of tarsorrhaphy Status post cataract extraction and insertion of intraocular lens of left eye (04/30/12) 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 PROCEDURES RT/LEFT HEART CARD CATH COMPLETE LARYNGECTOMY Esophagoplasty EGD - MAC (07/06/17) Colonoscopy - MAC (12/22/16) History of radical laryngectomy Family History Nephew Throat cancer Maternal Cousin Cancer Social History Smoking/Tobacco Use Status: Former Tobacco Use Quit Date: 04/23/13 Tobacco: How many years used: 20 Smoking risk assessment performed?: Yes Alcohol Intake: never Drug use: Never Substance use type: does not use Housing: apartment Current gender identity: male Do you feel safe at home: Yes Do you feel safe in your relationship?: Yes
[2024-06-11 18:53] LABS: Abs Immature Grans 0.09 10^3/uL (0.0-0.06); Absolute Eosinophil Count 0.17 10^3/uL (0.0-0.7); Absolute Monocyte Count 0.93 10^3/uL (0.1-0.8); Absolute Neutrophil Count 13.89 10^3/uL (1.2-6.7); Basophils % 0.6 %; Eosinophils % 1.1 %; Immature Grans % 0.6 %; Lymphocytes % 3.8 %; MCH 32.5 pg (27.0-33.0); MCHC 32.5 % (32.0-36.0); MCV 100 fL (80-95); MPV 10.7 fL (8.0-11.0); Monocytes % 5.9 %; Platelet Count 182 10^3/uL (130-400); RDW 13.5 % (11.8-14.1); RDW-SD 49.7 fL; WBC 15.78 10^3/uL (4.4-10.8)
[2024-06-11 18:55] LABS: Absolute Basophil Count 0.09 10^3/uL (0.0-0.2)
[2024-06-11 19:05] LABS: Prothrombin Time 10.5 sec (9.1-11.1)
[2024-06-11 19:07] LABS: Bilirubin Negative (Negative); Blood Moderate (Negative); Clarity Cloudy (Clear); Glucose Negative (Negative); Ketones Negative (Negative); Leukocyte Esterase Moderate (Negative); Nitrite Negative (Negative); Urobilinogen 0.2 mg/dL (Up to 0.2); pH 5.5 (5-8)
[2024-06-11 19:12] LABS: ALT 22 U/L (16-63); AST 28 U/L (15-37); Albumin 2.8 g/dL (3.4-5.0); Alkaline Phosphatase 90 U/L (46-116); Anion Gap 9.6 mmol/L (3-11); BUN 34 mg/dL (7-18); Bilirubin, Total 0.52 mg/dL (0.2-1.0); CO2 23.4 mmol/L (21.0-32.0); CREATININE 0.9 mg/dL (0.70-1.30); Calcium 7.4 mg/dL (8.5-10.1); Chloride 110 mmol/L (98-107); Estimated GFR 87.42 (mL/min/1.73m2); Glucose 87 mg/dL (74-106); Magnesium 1.8 mg/dL (1.8-2.4); Potassium 3.2 mmol/L (3.5-5.1); Sodium 143 mmol/L (136-145); Total Protein 6.5 g/dL (6.4-8.2); Troponin I 17 ng/L (<or=76)
[2024-06-11 19:17] LABS: WBC >50 HPF (0-5)
[2024-06-11 19:18] LABS: C & S Indicated? Yes
--- NOTE | 2024-06-11 19:27 | DI.RAD_ITS ---
Exam(s) XR CHEST 2V PA LATERAL EXAM: XR CHEST 2V PA LATERAL CLINICAL HISTORY: Fever, eval PNA TECHNIQUE: 2D digital imaging was performed. Two views. COMPARISON: CR XR THORACIC SPINE COMPLETE from 01/06/2024 CR,XR XR PORTABLE CHEST AP from 04/15/2024 FINDINGS: HEART: Normal size. Aorta: Markedly tortuous. Stent in place and descending thoracic and abdominal aorta. PULMONARY VASCULATURE: Normal. MEDIASTINUM: Unremarkable. LUNGS: Underlying interstitial changes. Patchy infiltrate noted in mid right lung field, not well se en on the lateral view. PLEURAL SPACE: No pleural effusion or pneumothorax. BONE:Old right clavicle fracture. Severe T12 and L1 compression fractures. Stable mild mid thoracic compression fracture. SOFT TISSUES: Surgical clips in the lower neck. IMPRESSION: Findings suspicious for right mid lung zone pneumonia. DATA REPOSITORY: RADIATION DOSE DELIVERED:
--- NOTE | 2024-06-11 19:27 | W.PC.ACHO1 ---
Registration Status: Primary Language: Preferred Language: ED Information & Data Chief Complaint Trauma 06/11/24 18:58 Chief Complaint Trauma 06/11/24 18:49 Triage Note pt recent d/c from for 06/11/24 18:49 drainage of SDH, pt fell this evening after feeling dizzy, hit face and broke upper dentures, facial swelling and bleeding contained, remains on Plavix , unsure if LOC, GF at side, pt on monitors, EKG done, no focal weakness, pt with concerns about need to urinate, has clamped wilson, drained for 100ml urine, IV placed, pt moved and pulled, new IV placed with labs, pt temp 100.3F temporal and 99 .3F oral, old trach on 5L sats 88-91. 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) CAD (coronary artery disease) Chronic respiratory failure with hypoxia Complication of feeding tube Conjunctivitis, chronic COPD (chronic obstructive pulmonary disease) Cortical cataract of right eye Depression Depressive disorder (11/18/12) Dyspnea on exertion Feeding tube dysfunction Hematoma following procedure Herpes zoster History of alcoholism History of laryngeal cancer History of tobacco use Hyperlipemia Hyperlipidemia (11/18/12) Hypertension Hypertension (11/18/12) Hypothyroidism Hypothyroidism (11/18/12) Impingement syndrome, shoulder, left (10/10/16) 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 Nuclear sclerotic cataract of right eye Pneumonia Post herpetic neuralgia Posterior subcapsular age-related cataract, right eye Primary malignant neoplasm of oropharynx Pulmonary nodule, right (05/30/15) Restless leg syndrome (02/21/15) Sessile colonic polyp Shortness of breath Tobacco use (Last Reviewed 04/22/24 @ 23:56 by So Whalen MD) 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) History of esophagogastroduodenoscopy (EGD) (~08/10/19) History of laryngectomy History of radical laryngectomy History of tarsorrhaphy PROCEDURES S/P AAA (abdominal aortic aneurysm) repair Status post cardiac catheterization Status post cataract extraction and insertion of intraocular lens of left eye (04/30/12) Status post cataract extraction and insertion of intraocular lens of right eye (07/12/18) Status post laryngectomy Most Recent Vital Signs Temperature 37.9 C H 06/11/24 18:49 Temperature Source Temporal Artery Scan 06/11/24 18:49 Pulse 85 06/11/24 18:49 Respiratory Rate 17 06/11/24 18:49 Blood Pressure 175/62 H 06/11/24 18:49 Blood Pressure Position Sitting 06/11/24 18:49 Pulse Oximetry 91 L 06/11/24 18:49 Oxygen Delivery Method Trach Collar 06/11/24 18:49 Oxygen Flow Rate 5 06/11/24 18:49 Pain Level 8 06/11/24 18:49 Allergies pollen extracts Allergy (Mild, Verified 06/11/24 18:48) Wheezing Tetracyclines Allergy (Unknown, Verified 06/11/24 18:48) SKIN RASH Precautions Isolation Standard precaution 06/11/24 18:58 IV IV Catheter Type [Right Peripheral IV Antecubital] IV Catheter Gauge [Right 18 Antecubital] Diagnostics 06/11/24 06/11/24 06/11/24 Range/Units 21:24 19:24 18:57 WBC (4.4-10.8) 10^3/uL RBC (4.36-5.78) 10^6/uL Hgb (13.5-17.5) g/dL Hct (40.0-50.0) % MCV (80-95) fL MCH (27.0-33.0) pg MCHC (32.0-36.0) % RDW (11.8-14.1) % Plt Count (130-400) 10^3/uL MPV (8.0-11.0) fL Immature Gran % % Neutrophils % % Lymphocytes % % Monocytes % % Eosinophils % % Basophils % % Nucleated RBC % (0.0-0.3) % Absolute Neutrophils (1.2-6.7) 10^3/uL Absolute Lymphocytes (1.2-3.4) 10^3/uL Absolute Monocytes (0.1-0.8) 10^3/uL Absolute Eosinophils (0.0-0.7) 10^3/uL Absolute Basophils (0.0-0.2) 10^3/uL PT (9.1-11.1) sec INR (0.9-1.1) Sodium (136-145) mmol/L Potassium (3.5-5.1) mmol/L Chloride (98-107) mmol/L Carbon Dioxide (21.0-32.0) mmol/L Anion Gap (3-11) mmol/L BUN (7-18) mg/dL Creatinine (0.70-1.30) mg/dL Est GFR (CKD-EPI 2020) (mL/min/1.73m2) Glucose (74-106) mg/dL Calcium (8.5-10.1) mg/dL Magnesium (1.8-2.4) mg/dL Total Bilirubin (0.2-1.0) mg/dL AST (15-37) U/L ALT (16-63) U/L Alkaline Phosphatase (46-116) U/L Troponin I Pending Pending (<or=76) ng/L Total Protein (6.4-8.2) g/dL Albumin (3.4-5.0) g/dL Urine Color Yellow (Yellow) Urine Clarity Cloudy (Clear) Urine pH 5.5 (5-8) Ur Specific [place] 1.020 (1.005-1.025) Urine Protein 100 H (Neg-Trace) mg/dL Urine Ketones Negative (Negative) mg/dL Urine Blood Moderate H (Negative) Urine Nitrite Negative (Negative) Urine Bilirubin Negative (Negative) Urine Urobilinogen 0.2 (Up to 0.2) mg/dL Ur Leukocyte Esterase Moderate H (Negative) Urine RBC (0-2) HPF Urine WBC >50 H (0-5) HPF Ur Epithelial Cells Not Applicable Urine Crystals Not Applicable Urine Bacteria Not Applicable Urine Mucus Not Applicable Ur Culture Indicated? Yes Urine Glucose Negative (Negative) mg/dL COVID-19 Source Pending SARS-CoV-2 (PCR) Pending Influenza Type A (PCR) Pending Influenza Type B (PCR) Pending RSV (PCR) Pending 06/11/24 Range/Units 18:40 WBC 15.78 H (4.4-10.8) 10^3/uL RBC 4.00 L (4.36-5.78) 10^6/uL Hgb 13.0 L (13.5-17.5) g/dL Hct 40.0 (40.0-50.0) % MCV 100 H (80-95) fL MCH 32.5 (27.0-33.0) pg MCHC 32.5 (32.0-36.0) % RDW 13.5 (11.8-14.1) % Plt Count 182 (130-400) 10^3/uL MPV 10.7 (8.0-11.0) fL Immature Gran % 0.6 % Neutrophils % 88.0 % Lymphocytes % 3.8 % Monocytes % 5.9 % Eosinophils % 1.1 % Basophils % 0.6 % Nucleated RBC % 0.0 (0.0-0.3) % Absolute Neutrophils 13.89 H (1.2-6.7) 10^3/uL Absolute Lymphocytes 0.60 L (1.2-3.4) 10^3/uL Absolute Monocytes 0.93 H (0.1-0.8) 10^3/uL Absolute Eosinophils 0.17 (0.0-0.7) 10^3/uL Absolute Basophils 0.09 (0.0-0.2) 10^3/uL PT 10.5 (9.1-11.1) sec INR 1.0 (0.9-1.1) Sodium 143 (136-145) mmol/L Potassium 3.2 L (3.5-5.1) mmol/L Chloride 110 H (98-107) mmol/L Carbon Dioxide 23.4 (21.0-32.0) mmol/L Anion Gap 9.6 (3-11) mmol/L BUN 34 H (7-18) mg/dL Creatinine 0.9 (0.70-1.30) mg/dL Est GFR (CKD-EPI 2020) 87.42 (mL/min/1.73m2) Glucose 87 (74-106) mg/dL Calcium 7.4 L (8.5-10.1) mg/dL Magnesium 1.8 (1.8-2.4) mg/dL Total Bilirubin 0.52 (0.2-1.0) mg/dL AST 28 (15-37) U/L ALT 22 (16-63) U/L Alkaline Phosphatase 90 (46-116) U/L Troponin I 17 (<or=76) ng/L Total Protein 6.5 (6.4-8.2) g/dL Albumin 2.8 L (3.4-5.0) g/dL Urine Color (Yellow) Urine Clarity (Clear) Urine pH (5-8) Ur Specific [place] (1.005-1.025) Urine Protein (Neg-Trace) mg/dL Urine Ketones (Negative) mg/dL Urine Blood (Negative) Urine Nitrite (Negative) Urine Bilirubin (Negative) Urine Urobilinogen (Up to 0.2) mg/dL Ur Leukocyte Esterase (Negative) Urine RBC (0-2) HPF Urine WBC (0-5) HPF Ur Epithelial Cells Urine Crystals Urine Bacteria Urine Mucus Ur Culture Indicated? Urine Glucose (Negative) mg/dL COVID-19 Source SARS-CoV-2 (PCR) Influenza Type A (PCR) Influenza Type B (PCR) RSV (PCR) 06/11/24 18:57 Urine Culture - Pending Urine - Reflex from Ua Intake and Output - 24 Hour Total 06/11/24 18:06 thru 06/11/24 18:49 Weight 60.5 kg Falls Risk Assessment History of Falls Admit Due to Fall 06/11/24 18:59 Contributing Factors Unstable,Impairments, 06/11/24 18:59 Incontinence,Medications Ambulatory Aids Uses ambulatory device 06/11/24 18:59 Tubes/Lines W/no contributing factors 06/11/24 18:59 Gait Evaluation W/any additional score 06/11/24 18:59 Cognition No cognitive impairment 06/11/24 18:59 Fall Total Score 82 06/11/24 18:59 Level of Risk Maximum Risk 06/11/24 18:59 v v v v v v v v v Sending and/or Receiving Nurses: Please use comment section below to note any information pertinent to the patient hand-off not included above. Information / Comments: All questions answered with Bedside report Report received from: Deja Cook RN
[2024-06-11 19:43] LABS: COVID-19 PCR Negative (Negative); Influenza A PCR Negative (Negative); Influenza B PCR Negative (Negative); RSV PCR Negative (Negative)
[2024-06-11 19:56] LABS: Source Nasopharynx
--- NOTE | 2024-06-11 20:49 | DI.VRAD_ITS ---
Addendum created by Fede Ruff MD on 06/11/2024 8:49:18 PM EST: THIS REPORT CONTAINS FINDINGS THAT MAY BE CRITICAL TO PATIENT CARE. The findings were verbally communicated via telephone conference with Brisa Titus at 8:49 PM EST on 06/11/2024. The findings were acknowledged and understood. Initial report created on 06/11/2024 8:48:35 PM EST: PROCEDURE INFORMATION: Exam: CT Head Without Contrast Exam date and time: 06/11/2024 6:43 PM Age: 79 years old Clinical indication: Injury or trauma; Other: Fall, face struck TECHNIQUE: Imaging protocol: Computed tomography of the head without contrast. COMPARISON: CT HEAD WO 03/04/2024 4:11 PM FINDINGS: Brain: Chronic bilateral subdural hematomas are again identified with interval increase in the size of the right-sided subdural collection which now measures up to 2 cm over the right frontoparietal convexity with increased mass effect and sulcal effacement in this region. Prominence of cerebral sulci and poorly marginated hypodensities seen throughout the deep and periventricular white matter of the left hemisphere are consistent with underlying atrophy and microvascular ischemic changes. Brainstem and cerebellum are grossly stable in appearance. No other new sites of intracranial bleeding are detected. Cerebral ventricles: Continued asymmetric effacement of the right lateral ventricle with a few mm of leftward shift of midline structures. Paranasal sinuses: Hyperdense blood now layers in the right maxillary sinus. Mastoid air cells: Grossly clear bilaterally. Bones: Bony calvarium and skull base are intact. New comminuted right nasal and right maxillofacial fractures are identified. Soft tissues: Right paranasal and maxillofacial ecchymosis/edema seen in association with new fractures in these areas. IMPRESSION: 1. Chronic bilateral subdural hematomas are again identified with interval increase in the size of the right-sided subdural collection which now measures up to 2 cm over the right frontoparietal convexity with increased mass effect and sulcal effacement in this region. 2. Right paranasal and maxillofacial ecchymosis/edema seen in association with new fractures in these areas as detailed above PROCEDURE INFORMATION: Exam: CT Maxillofacial Without Contrast Exam date and time: 06/11/2024 6:43 PM Age: 79 years old Clinical indication: Injury or trauma; Other: Fall, face struck TECHNIQUE: Imaging protocol: Computed tomography of the face without contrast. COMPARISON: CT HEAD WO 03/04/2024 4:11 PM FINDINGS: Paranasal sinuses: Comminuted fractures now seen involving the anterior wall and posterolateral margin of the right maxillary sinus with layering blood within the right maxillary sinus. Mucosal disease also involves scattered bilateral ethmoidal lamellae. Orbital cavities: Bony margins of the orbits are intact bilaterally with no orbital fractures detected. Both globes are intact and the intraorbital contents are normal in appearance and appear bilaterally symmetric. Bones: Bilateral comminuted nasal fractures are identified. The zygomatic arches and right and left vertical and horizontal mandibular rami are all intact. No acute maxillofacial fractures are detected. Soft tissues: Right paranasal and maxillofacial ecchymosis/edema seen in association with new fractures in these areas. IMPRESSION: Right paranasal and maxillofacial ecchymosis/edema seen in association with new fractures in these areas as detailed above. PROCEDURE INFORMATION: Exam: CT Cervical Spine Without Contrast Exam date and time: 06/11/2024 6:43 PM Age: 79 years old Clinical indication: Injury or trauma; Other: Fall, face struck TECHNIQUE: Imaging protocol: Computed tomography of the cervical spine without contrast. COMPARISON: CT HEAD WO 03/04/2024 4:11 PM FINDINGS: Bones: There is arthrosis involving the anterior atlantodental interval with loss of joint space and marginal osteophyte formation and the odontoid process is grossly intact. Chronic fracture deformities again involve the anterior and posterior arches of C1. There are grade 1 anterolisthesis of C3 upon C4 and C7 upon T1 with grade 2 anterolisthesis of C4 upon C5. No acute vertebral body fractures or other significant subluxations are detected. Changes of facet arthropathy are most advanced on the left between C3 and C5 with no acute fractures detected involving the posterior elements of the cervical spine. Discs/Spinal canal/Neural foramina: Multilevel foraminal narrowings seen throughout cervical levels, left-side greater than right. No severe central canal stenosis detected. Soft tissues: Unremarkable. IMPRESSION: Chronic cervical spondylosis and posttraumatic deformity with no acute cervical fractures detected Dictated and Authenticated by: Fede Ruff MD. Ordering:JAROD Donohue MD
[2024-06-11 20:59] LABS: Troponin I 23 ng/L (<or=76)
[2024-06-11] MEDS: cefTRIAXone 1 GM/50 ML BAG IVPB (21:11)
--- NOTE | 2024-06-11 21:14 | DI.VRAD_ITS ---
PROCEDURE INFORMATION: Exam: XR Chest Exam date and time: 06/11/2024 7:22 PM Age: 79 years old Clinical indication: Fever and other: Eval pneumonia; Prior surgery; Surgery date: 6+ months; Surgery type: Unknown TECHNIQUE: Imaging protocol: Radiologic exam of the chest. Views: 2 views. COMPARISON: CR XR PORTABLE CHEST AP 04/15/2024 9:46 PM FINDINGS: Lungs: There is hazy opacification in the right mid lung laterally. Pleural spaces: Unremarkable. No pleural effusion. No pneumothorax. Heart/Mediastinum: Unremarkable. No cardiomegaly. Vasculature: Aortic ectasia again noted. Distal thoracic aortic stent noted. Bones/joints: Old right distal clavicular fracture again seen. IMPRESSION: Probable right lateral lung consolidation or ground-glass change. Dictated and Authenticated by: Gabriella Glover MD. Ordering:JAROD Donohue MD
[2024-06-11] MEDS: Amox. 875/Clav. 125, 2 TABS/BTL 1 TAB PO (22:41)
== END 2024-06-11 22:56 | disposition home or self-care (01) ==
PROVIDERS: Emergency Provider Emergency Medicine; PCP Physician Assistant Medical
DX: R50.9 Fever, unspecified; S02.40CA Maxillary fracture, right side, initial encounter for closed fracture; S02.2XXA Fracture of nasal bones, initial encounter for closed fracture; R42 Dizziness and giddiness; Z86.79 Personal history of other diseases of the circulatory system; W19.XXXA Unspecified fall, initial encounter; N39.0 Urinary tract infection, site not specified; Z99.81 Dependence on supplemental oxygen
CPT/HCPCS: 36415; 80053; 87637; 93005; 96365; 99284; 70450; 70486; 71046; 72125; 81003; 81015; 83735; 84484; 85025; 85610; 87086; 93010; J0696

== ENCOUNTER → 2024-06-21 15:05 | Outpatient (BNVA) | payer MEDICARE, MEDICAID, SELFPAY | PROVIDERS: PCP Physician Assistant Medical; Visit Provider Urology | DX: N40.1 Benign prostatic hyperplasia with lower urinary tract symptoms (principal); N13.8 Other obstructive and reflux uropathy | CPT/HCPCS: 51798; 99214 ==

== ENCOUNTER → 2024-06-27 13:02 | Outpatient (BNVA) | payer MEDICARE, MEDICAID, SELFPAY | PROVIDERS: PCP Physician Assistant Medical; Referring Provider Physician Assistant Medical; Visit Provider Physician Assistant Surgical | DX: J43.1 Panlobular emphysema (principal); C32.9 Malignant neoplasm of larynx, unspecified; R13.19 Other dysphagia; J15.212 Pneumonia due to Methicillin resistant Staphylococcus aureus | CPT/HCPCS: 99214 ==

== ENCOUNTER → 2024-06-29 15:00 | Outpatient (BNVA) | payer MEDICARE, MEDICAID, SELFPAY | PROVIDERS: PCP Physician Assistant Medical; Visit Provider Psychiatry & Neurology Neurology | DX: G25.81 Restless legs syndrome (principal); G62.9 Polyneuropathy, unspecified; I95.1 Orthostatic hypotension | CPT/HCPCS: 99214 ==

== ENCOUNTER → 2024-07-04 11:10 | Outpatient (BNVA) | payer MEDICARE, MEDICAID, SELFPAY | PROVIDERS: PCP Physician Assistant Medical; Visit Provider Registered Nurse | DX: R55 Syncope and collapse (principal); I25.2 Old myocardial infarction | CPT/HCPCS: 99214 ==

== ENCOUNTER → 2024-07-14 13:25 | Outpatient (BNVA) | payer MEDICARE, MEDICAID, SELFPAY | PROVIDERS: PCP Physician Assistant Medical; Referring Provider Physician Assistant Medical; Visit Provider Urology | DX: N40.1 Benign prostatic hyperplasia with lower urinary tract symptoms (principal); N13.8 Other obstructive and reflux uropathy; R30.0 Dysuria; R31.0 Gross hematuria | CPT/HCPCS: 76775 ==

== ENCOUNTER 2024-08-03 16:43 | Emergency (ER) | payer MEDICARE, MEDICAID, SELFPAY ==
[2024-08-03] VITALS (23 sets, daily range): BP systolic 54–139; BP diastolic 41–73; PULSE 75–105; RESP 16–18; TEMP 36.1–36.2; O2SAT 4–97
--- NOTE | 2024-08-03 16:45 | DI.RAD_ITS ---
Exam(s) XR SOFT TISSUE NECK EXAM: XR SOFT TISSUE NECK CLINICAL HISTORY: FB sensation. TECHNIQUE: 2D digital imaging was performed. COMPARISON: No exams were available for comparison FINDINGS: Two views There surgical clips on both sides the neck. Probable tracheostomy. No obvious abnormal soft tissue swelling. Chronic degenerative changes in the cervical spine are noted. IMPRESSION: As above. If clinically indicated further study with CT scan can be performed. DATA REPOSITORY: RADIATION DOSE DELIVERED:
--- NOTE | 2024-08-03 17:01 | ED.GENADUL_ITS ---
Discharge Plan Disposition Patient Disposition: Home Condition: Stable Discharge Details Clinical Impression: Foreign body sensation, throat Primary Care Provider: Nazia Chan ED Provider: Elysia Griffin Home Meds and New Rx's Prescriptions: Continued ropinirole 1 mg tablet 1 mg PO BID acetaminophen [Tylenol Extra Strength] 500 mg tablet 1,000 mg PO BID PRN tamsulosin [Flomax] 0.4 mg capsule 0.4 mg PO DAILY Qty: 90 3RF finasteride 5 mg tablet 5 mg PO DAILY Qty: 90 3RF gabapentin 300 mg capsule 300 mg PO QID Qty: 360 3RF omeprazole 20 mg capsule,delayed release(DR/EC) 20 mg feeding tube BID Qty: 90 4RF acetylcysteine 100 mg/mL (10 %) solution 4 ml inhalation BID metoprolol succinate 25 mg tablet extended release 24 hr 25 mg PO DAILY levothyroxine 88 mcg capsule 88 mcg PO DAILY sertraline 50 mg tablet 50 mg PO DAILY Qty: 30 4RF rosuvastatin 40 mg tablet 40 mg feeding tube HS Qty: 90 4RF polyethylene glycol 3350 [Miralax] 17 gram/dose powder 17 g PO DAILY PRN (Reason: constipation) Rx Instructions: 06/19/22 instructed by PCP to take 1/2 cap daily, may reduce to half cap three times per week if daily is too much nystatin 100,000 unit/gram powder 1 applic topical BID Qty: 60 12RF acetylcysteine [NAC] 600 mg capsule 600 mg PO BID Qty: 60 12RF sulfamethoxazole-trimethoprim 200-40 mg/5 mL suspension 5 ml PO BID 28 Days Qty: 280 6RF melatonin 3 MG tablet 3 mg PO HS levetiracetam 500 mg tablet 500 mg PO BID Patient Comments: TAKE ONE TABLET BY MOUTH TWICE A DAY losartan 50 mg tablet 50 mg PO DAILY Patient Comments: TAKE ONE TABLET BY MOUTH EVERY DAY ipratropium-albuterol 0.5 mg-3 mg(2.5 mg base)/3 mL solution for nebulization 3 ml IN BID Rx Instructions: increased dose/use treatment 4 times/day as needed NOT SENT ferrous sulfate [Feosol] 325 mg (65 mg iron) tablet 325 mg PO DAILY Align Jr 10.5 mg (10 million cell) tablet,chewable 10.5 mg PO DAILY Discharge Instructions Instructions: Choking Additional Instructions: No evidence for foreign body in your throat, please do not stick any tweezers or anything in your throat. No evidence of pneumonia or any change on your x- rays. Your oxygenation has been 95 to 100% during your entire stay here. Follow up with primary care provider in 3-5 days. Return to ED sooner if any worsening or concerns. Thank you for allowing us to care for you today. Referrals: Nazia Chan [Primary Care Provider] - 5 days HPI General Mode of arrival: EMS . Date/Time Provider Initiated Documentation: 08/03/24 16:53 . Limitations to Documentation: language barrier . Information obtained by: patient, EMS, RN notes reviewed and old records reviewed . HPI Narrative: 79-year-old male with past medical history of laryngeal cancer, chronic respiratory failure with hypoxia, pneumonia shortness of breath complications of feeding tube and blockage of feeding tube presents to the emergency department via EMS with a chief complaint of possible foreign body stuck in his throat. He reports that he is unable to remember what he was eating but feels it stuck in his throat. He states that he tried to take it out with tweezers but he was unable to. He does have a history of a tracheostomy, he is on blow-by supplemental oxygen. Satting 95% at this time. He does have a history of aspiration and has some dried food stuff around his mouth and chest. Other past medical history includes CAD, hypothyroidism hypertension hyperlipidemia history of alcohol was, anxiety BPH, COPD, AAA repair, subdural hematoma which is chronic. Related Data Home Medications ?Medication ?Instructions ?Recorded ?Confirmed omeprazole 20 mg capsule,delayed 20 mg feeding tube BID #90 caps 10/05/19 08/03/24 release melatonin 3 mg tablet 3 mg PO HS 10/29/19 08/03/24 rosuvastatin 40 mg tablet 40 mg feeding tube HS #90 tabs 12/14/19 08/03/24 acetylcysteine 100 mg/mL (10 %) 4 ml inhalation BID 07/05/20 08/03/24 solution ropinirole 1 mg tablet 1 mg PO BID 01/07/22 08/03/24 acetaminophen 500 mg tablet 1,000 mg PO BID PRN 03/05/22 08/03/24 (Tylenol Extra Strength) polyethylene glycol 3350 17 17 g PO DAILY PRN constipation 06/19/22 08/03/24 gram/dose oral powder (Miralax) nystatin 100,000 unit/gram topical 1 applic topical BID #60 grams 02/19/23 08/03/24 powder acetylcysteine 600 mg capsule (NAC) 600 mg PO BID #60 caps 07/28/23 08/03/24 levothyroxine 88 mcg capsule 88 mcg PO DAILY 09/02/23 08/03/24 metoprolol succinate 25 mg 25 mg PO DAILY 09/02/23 08/03/24 tablet,extended release 24 hr levetiracetam 500 mg tablet 500 mg PO BID 02/17/24 08/03/24 losartan 50 mg tablet 50 mg PO DAILY 02/17/24 08/03/24 sertraline 50 mg tablet 50 mg PO DAILY #30 tabs 02/23/24 08/03/24 finasteride 5 mg tablet 5 mg PO DAILY #90 tabs 03/02/24 08/03/24 tamsulosin 0.4 mg capsule (Flomax) 0.4 mg PO DAILY #90 caps 03/02/24 08/03/24 Bifidobacterium infantis 10.5 mg 10.5 mg PO DAILY 03/13/24 08/03/24 (10 million cell) chewable tablet (Align Jr) ferrous sulfate 325 mg (65 mg 325 mg PO DAILY 03/13/24 08/03/24 iron) tablet (Feosol) sulfamethoxazole 200 5 ml PO BID 28 days #280 mL 03/29/24 08/03/24 mg-trimethoprim 40 mg/5 mL oral suspension gabapentin 300 mg capsule 300 mg PO QID #360 caps 06/29/24 08/03/24 ipratropium 0.5 mg-albuterol 3 mg 3 ml IN BID shortness of breath or 08/03/24 08/03/24 (2.5 mg base)/3 mL nebulization wheezing soln Previous Rx's ?Medication ?Instructions ?Recorded omeprazole 20 mg capsule,delayed 20 mg feeding tube BID #90 caps 10/05/19 release rosuvastatin 40 mg tablet 40 mg feeding tube HS #90 tabs 12/14/19 nystatin 100,000 unit/gram topical 1 applic topical BID #60 grams 02/19/23 powder acetylcysteine 600 mg capsule (NAC) 600 mg PO BID #60 caps 07/28/23 sertraline 50 mg tablet 50 mg PO DAILY #30 tabs 02/23/24 finasteride 5 mg tablet 5 mg PO DAILY #90 tabs 03/02/24 tamsulosin 0.4 mg capsule (Flomax) 0.4 mg PO DAILY #90 caps 03/02/24 sulfamethoxazole 200 5 ml PO BID 28 days #280 mL 03/29/24 mg-trimethoprim 40 mg/5 mL oral suspension gabapentin 300 mg capsule 300 mg PO QID #360 caps 06/29/24 Allergies Allergy/AdvReac Type Severity Reaction Status Date / Time pollen extracts Allergy Mild Wheezing Verified 08/03/24 16:55 Tetracyclines Allergy Unknown SKIN RASH Verified 08/03/24 16:55 General Stated Complaint: RespSymp CHER: 3 Review of Systems All systems reviewed & are unremarkable except as noted in HPI and below ENT Ears, Nose, Mouth, and Throat: Reports as per HPI and Reports throat swelling Allergic/Immunologic Allergic/Immunologic: Reports throat swelling Exam Narrative Exam Narrative: Constitutional: Alert and oriented x3. Appears stated age. Cachectic body habitus, appears chronically ill. Head: Normocephalic, no trauma. Eyes: Pupils PERRL, Red reflex noted, EOM's intact. Eyelids symmetrical without lesions, discharge, or swelling. ENT: Bilateral TM's WNL, External ear normal to inspection, no mastoid TTP, swe lling, or erythema, Nasal turbinates WNL, no nasal discharge. Normal dentition, history of tracheostomy. On blow-by. Chest: RRR, Normal S1, S2, distal pulses intact. Resp: Lungs clear to auscultation bilaterally, no wheezes, rales, or rhonchi. Abdomen: Soft, non-distended, does have a G-tube noted right lower quadrant. Musculoskeletal: Normal gait, Moves all 4 extremities without difficulty. Skin: No suspicious rashes or lesions. Capillary refill less than 2 sec. Neurologic: Cranial nerves II-XII intact. Alert and oriented x 3. Motor: No deficits noted. Sensory: Intact bilaterally all 4 extremities. Hematologic/Lymphatic: No ecchymosis, no lymphadenopathy. Course Vital Signs Vital signs: Vital Signs Temperature 36.2 C L 08/03/24 16:47 Pulse 88 08/03/24 16:47 Respiratory Rate 18 08/03/24 16:47 Blood Pressure 102/63 08/03/24 16:47 Pulse Oximetry 95 08/03/24 16:47 Temperature 36.2 C L 08/03/24 16:47 Temperature Source Tympanic 08/03/24 16:47 Pulse 88 08/03/24 16:47 Respiratory Rate 18 08/03/24 16:47 Blood Pressure 102/63 08/03/24 16:47 Blood Pressure Position Supine 08/03/24 16:47 Pulse Oximetry 95 08/03/24 16:47 Oxygen Delivery Method Blow by 08/03/24 16:47 Oxygen Flow Rate 4 08/03/24 16:47 Pain Level 5 08/03/24 16:47 Medical Decision Making 79-year-old male with past medical history of laryngeal cancer, chronic respiratory failure with hypoxia, pneumonia shortness of breath complications of feeding tube and blockage of feeding tube presents to the emergency department via EMS with a chief complaint of possible foreign body stuck in his throat. He reports that he is unable to remember what he was eating but feels it stuck in his throat. He states that he tried to take it out with tweezers but he was unable to. He does have a history of a tracheostomy, he is on blow-by supplemental oxygen. Satting 95% at this time. He does have a history of aspiration and has some dried food stuff around his mouth and chest. Other past medical history includes CAD, hypothyroidism hypertension hyperlipidemia history of alcohol was, anxiety BPH, COPD, AAA repair, subdural hematoma which is chronic. Soft tissue neck x-ray and chest x-ray ordered, respiratory called to come and suction patient. RT here at bedside for evaluation for possible suctioning, no secretions noted. They did report that in the past they have had to do bronchoscopy to retrieve foreign body such as a broken Yaunker or tweezers, will await the x-rays. X-rays show no significant change from previous. Will give dexamethasone and reevaluate. This is most likely due to his chronic history of cyst in his laryngeal cancer. He has been satting 95 to 100% throughout his stay here. Patient's is at the bedside I did discuss the x-ray results with them patient is awake and alert mentating well, he is requesting to go home. He reports that he needs to go to the bathroom. His blood pressure has been on the soft side during his stay here. However he denies being dizzy or lightheaded. Patient is up and ambulatory with minimal assistance to the bathroom. Rpt BP 139/62 patient discharged in hemodynamically stable condition. Oriented, patient discharged into the care of his . This text was generated using Gu[employer]usation system, please disregard any oddities of phrase or misspellings. Medical Records Medical records reviewed: Yes I reviewed the patient's medical records. Imaging Data Radiologic Study: Imaging: X-Ray Radiologist's impression: EXAM: XR CHEST 2V PA LATERAL CLINICAL HISTORY: FB sensation throat. TECHNIQUE: 2D digital imaging was performed. COMPARISON: CR,XR XR CHEST 2V PA LATERAL from 06/11/2024 FINDINGS: 2 views: Mild cardiomegaly. The descending thoracic aorta is tortuous and there is an aortic stent graft which starts in the mid descending thoracic aorta and extends distally into the abdominal aorta. The appearance of the upper thoracic aorta is unchanged from image of 06/11/2024. Lungs are clear. No infiltrates nor pleural effusions. No evidence of pulmonary edema. No obvious pleural effusions. No acute fractures nor pneumothorax. Fracture deformity lateral aspect of the right clavicle is unchanged. IMPRESSION: As above but without significant radiographic change when compared to 06/11/2024. Quality:SDOH Health Related Social Needs: No Data to Display PFSH All Active Problems (Updated 08/03/24 @ 18:59 by Elysia Griffin NP) Foreign body sensation, throat (Acute) Fall (Acute) Orthostatic hypotension (Acute) Right clavicle fracture (Acute 08/30/23) Syncope (Chronic) Ground glass opacity present on imaging of lung (Acute) Subdural hematoma (Acute) Pulmonary edema (Acute) Fracture of thumb, left, closed (Acute) Acute non-ST elevation myocardial infarction (NSTEMI) (Acute) Arm pain (Acute) Palliative care patient (Acute) Hemoptysis (Acute) Caregiver stress (Acute) Nausea & vomiting (Acute) Regurgitation of food (Acute) Pulmonary embolism (Chronic) Uses feeding tube (Acute) Gross hematuria (Acute) Ambulatory dysfunction (Acute) Leukocytosis (leucocytosis) (Acute) UTI (urinary tract infection) (Acute) Multiple subsegmental pulmonary emboli without acute cor pulmonale (Acute) C1 cervical fracture (Acute) Gastrostomy tube dysfunction (Acute) Advance care planning (Acute) Encounter for hospice care discussion (Acute) Unintentional weight loss of 10% body weight within 6 months (Acute) Dysuria (Acute) Malfunctioning jejunostomy tube (Acute) Need for follow-up by mental health social worker (Acute) Dysphagia (Acute) Weakness (Acute) Impaired instrumental activities of daily living (Acute) Plantar fascial fibromatosis (Acute) Feeding tube dysfunction (Acute) Sensorineural hearing loss (SNHL) of both ears (Acute) Otalgia of right ear (Acute) Neck pain on right side (Acute) Neck pain on right side (Acute) Full code status (Acute) Need for home health care (Acute) MRSA pneumonia (Acute) pt likely colonized Occlusion of right vertebral artery (Acute) Hypoxemia (Acute) Complication of feeding tube (Acute) Peripheral neuropathy (Acute 02/21/15) PAOD (peripheral arterial occlusive disease) (Acute) Laryngeal cancer (Acute) COPD (chronic obstructive pulmonary disease) (Chronic) G tube feedings (Acute) 20F 3.0cm 11/30/22. Routine change every 4 months. 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 Hypertension Tobacco use COPD (chronic obstructive pulmonary disease) Post herpetic neuralgia Hypothyroidism Hyperlipemia Depression Anxiety Anemia Conjunctivitis, chronic Surgical History S/P AAA (abdominal aortic aneurysm) repair Status post laryngectomy History of esophagogastroduodenoscopy (EGD) (~08/10/19) Daron Casper APRN @ [facility] [place]: hiatal hernia, GERD, Reyes's esophagitis, neuromuscular dysfunction History of laryngectomy Status post cardiac catheterization Status post cataract extraction and insertion of intraocular lens of right eye (07/12/18) History of tarsorrhaphy Status post cataract extraction and insertion of intraocular lens of left eye (04/30/12) 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) Sin-mullins button placed by Dr Elia Mcdonald, [facility] PROCEDURES RT/LEFT HEART CARD CATH COMPLETE LARYNGECTOMY Esophagoplasty EGD - MAC (07/06/17) Colonoscopy - MAC (12/22/16) History of radical laryngectomy Family History Nephew Throat cancer Maternal Cousin Cancer Social History Smoking/Tobacco Use Status: Former Tobacco Use Quit Date: 04/23/13 Tobacco: How many years used: 20 Smoking risk assessment performed?: Yes Alcohol Intake: never Drug use: Never Substance use type: does not use Housing: apartment Current gender identity: male Do you feel safe at home: Yes Do you feel safe in your relationship?: Yes
== END 2024-08-03 19:22 | disposition home or self-care (01) ==
PROVIDERS: Emergency Provider Registered Nurse Emergency; PCP Physician Assistant Medical
DX: R09.A2 Foreign body sensation, throat (principal); R06.02 Shortness of breath; J44.9 Chronic obstructive pulmonary disease, unspecified; I10 Essential (primary) hypertension; E78.5 Hyperlipidemia, unspecified; E03.9 Hypothyroidism, unspecified; I25.10 Atherosclerotic heart disease of native coronary artery without angina pectoris; Z93.1 Gastrostomy status; Z85.819 Personal history of malignant neoplasm of unspecified site of lip, oral cavity, and pharynx
CPT/HCPCS: 99283; 70360; 71046

== ENCOUNTER 2024-08-15 23:41 | Inpatient (IN) | payer MEDICARE, MEDICAID, SELFPAY ==
--- NOTE | 2024-08-15 23:45 | RT.EKG_ITS ---
APPROVED REPORT Exam: Resting ECG Reason for Exam: fall/head injury Patient Location: E HR:67 bpm ECG Measurements Heart Rate 67 AXIS NM 237 P 60 QRSd 154 QRS 74 QT 433 T 6 QTc 456 Conclusion Sinus rhythm...normal P axis, V-rate 60- 99 Prolonged NM interval...NM >220, V-rate 50- 90 Probable left atrial enlargement...P >50mS, <-0.10mV V1 Right bundle branch block...QRSd>120, terminal axis(90,270)
[2024-08-15 23:47] VITALS: BP 172/25; PULSE 66; RESP 18; TEMP 36.6; O2SAT 93
[2024-08-16] VITALS (111 sets, daily range): BP systolic 86–174; BP diastolic 33–100; PULSE 57–114; RESP 8–27; TEMP 36.7–37.6; O2SAT 88–100
--- NOTE | 2024-08-16 00:24 | DI.CT_ITS ---
Exam(s) CT HEAD CERVICAL SPINE WO EXAM: CT HEAD CERVICAL SPINE WO CLINICAL HISTORY: fall, head laceration, elderly. TECHNIQUE: Imaging Protocol: Axial computed tomography images with coronal and sagittal reformatted images were created and reviewed COMPARISON: CT CT HEAD CERV SPINE FACIAL WO from 06/11/2024 FINDINGS: BRAIN: There are no skull fractures nor fluid in the visualized paranasal sinuses. Again noted are previously described bilateral subdural hematomas without acute hyperdense blood eith er side. The large right subdural hematoma appears relatively similar in size when compared to 06/11/2024, per haps minimally smaller. There is a 2 layer appearance to this right-sided subdural hematoma which is bili related to more than 1 prior episode of extra-axial hemorrhage on the right side. With respect of the left side subdural hematoma, it is again noted to be smaller than the right side and no longer contains hyperdense acute blood. However, it appears slightly larger than previous. There is no significant shift of midline structures. No evidence of acute infarct. CERVICAL SPINE: Tracheostomy noted. Also biapical lung scarring. 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 The odontoid is not fractured and there are no fractures of C2. There are no acute vertebral fractures. Chronic anterolisthesis C4 upon C5 appears unchanged. There are multilevel degenerative disc disease changes and multilevel facet arthropathy. No obvious f acet malalignment. IMPRESSION: Bilateral subdural hematomas are again noted without evidence of acute her dense blood in either extr a-axial collection. There is minimal if any significant change in the size of the right subdural shanika darian. The smaller left subdural hematoma may have slightly increased in size when compared to the [facility] t recent study of 06/11/2024. There is no new prominent mass effect nor significant new shift of midl ine structures No evidence of acute cervical spine fracture. RADIATION DOSE DELIVERED: 1,261.76mGy.cm Total DLP DATA REPOSITORY: All CT scans at this facility are submitted to the National Radiology Data Registry (NRDR) Dose Index Registry (DIR) with the [employer] ([employer]). RADIATION OPTIMIZATION: All CT scans at this facility use at least one of these dose optimization te chniques: automated exposure control; mA and/or kV adjustment per patient size (includes targeted exa ms where dose is matched to clinical indication); or iterative reconstruction.
--- NOTE | 2024-08-16 00:25 | DI.RAD_ITS ---
Exam(s) XR CHEST 1V IN DI DEPT EXAM: XR CHEST 1V IN DI DEPT CLINICAL HISTORY: syncope. looking for infection sources. TECHNIQUE: 2D digital imaging was performed. COMPARISON: CR XR CHEST 2V PA LATERAL from 08/03/2024 FINDINGS: Single AP portable view. There appears to be tracheostomy. Heart size upper normal. Tortuous descending thoracic aorta noted with lung aortic stent graft in pl wagner extending caudally from the mid thoracic level down into the abdominal aorta.. Left lung is clear. There are mild increased markings in the mid right lung zone. No obvious pleura l effusions. IMPRESSION: Possible mild infiltrate in the right mid lung zone. No obvious pleural effusion. DATA REPOSITORY: RADIATION DOSE DELIVERED:
[2024-08-16 00:29] LABS: Abs Immature Grans 0.05 10^3/uL (0.0-0.06); Absolute Eosinophil Count 0.22 10^3/uL (0.0-0.7); Absolute Lymphocyte Count 0.67 10^3/uL (1.2-3.4); Absolute Monocyte Count 0.63 10^3/uL (0.1-0.8); Absolute Neutrophil Count 8.06 10^3/uL (1.2-6.7); Eosinophils % 2.3 %; HCT 35.9 % (40.0-50.0); HGB 11.6 g/dL (13.5-17.5); Immature Grans % 0.5 %; Lymphocytes % 6.9 %; MCHC 32.3 % (32.0-36.0); MCV 102 fL (80-95); MPV 9.9 fL (8.0-11.0); Monocytes % 6.5 %; Neutrophils % 82.8 %; Platelet Count 200 10^3/uL (130-400); RBC 3.52 10^6/uL (4.36-5.78); RDW 12.6 % (11.8-14.1); RDW-SD 47.2 fL; WBC 9.73 10^3/uL (4.4-10.8)
[2024-08-16 00:31] LABS: Lactate 1.4 mmol/L (<or=2.0)
[2024-08-16] MEDS: Lidocaine 1% Multi-Dose W/EPI 1/100,000 50 ML VIAL (00:35)
[2024-08-16 00:43] LABS: INR 1.1 (0.9-1.1); PTT Activated 24.6 sec (20.6-30.2); Prothrombin Time 10.7 sec (9.1-11.1)
[2024-08-16 00:52] LABS: ALT 43 U/L (16-63); AST 34 U/L (15-37); Albumin 3.2 g/dL (3.4-5.0); Alkaline Phosphatase 98 U/L (46-116); Anion Gap 9.4 mmol/L (3-11); BUN 36 mg/dL (7-18); CO2 30.6 mmol/L (21.0-32.0); Calcium 9.3 mg/dL (8.5-10.1); Chloride 101 mmol/L (98-107); Estimated GFR 77.04 (mL/min/1.73m2); Glucose 114 mg/dL (74-106); Potassium 4.2 mmol/L (3.5-5.1); Sodium 141 mmol/L (136-145); Total Protein 7.1 g/dL (6.4-8.2)
[2024-08-16 00:54] LABS: Troponin I 21 ng/L (<or=76)
--- NOTE | 2024-08-16 01:21 | W.ED.GENAD ---
Discharge Plan Disposition Patient Disposition: Admit to [facility] Condition: Stable Discharge Details Chief Complaint: Laceration Clinical Impression: Weakness, Fall, COPD (chronic obstructive pulmonary disease), Dependence on supplemental oxygen, Laceration of occipital region of scalp Primary Care Provider: Nazia Chan ED Provider: Alfonso Chisholm Home Meds and New Rx's Prescriptions: No Action ropinirole 1 mg tablet 1 mg PO BID acetaminophen [Tylenol Extra Strength] 500 mg tablet 1,000 mg PO BID PRN tamsulosin [Flomax] 0.4 mg capsule 0.4 mg PO DAILY Qty: 90 3RF finasteride 5 mg tablet 5 mg PO DAILY Qty: 90 3RF gabapentin 300 mg capsule 300 mg PO QID Qty: 360 3RF omeprazole 20 mg capsule,delayed release(DR/EC) 20 mg feeding tube BID Qty: 90 4RF acetylcysteine 100 mg/mL (10 %) solution 4 ml inhalation BID metoprolol succinate 25 mg tablet extended release 24 hr 25 mg PO DAILY levothyroxine 88 mcg capsule 88 mcg PO DAILY sertraline 50 mg tablet 50 mg PO DAILY Qty: 30 4RF rosuvastatin 40 mg tablet 40 mg feeding tube HS Qty: 90 4RF polyethylene glycol 3350 [Miralax] 17 gram/dose powder 17 g PO DAILY PRN (Reason: constipation) Rx Instructions: 06/19/22 instructed by PCP to take 1/2 cap daily, may reduce to half cap three times per week if daily is too much nystatin 100,000 unit/gram powder 1 applic topical BID Qty: 60 12RF sulfamethoxazole-trimethoprim 200-40 mg/5 mL suspension 5 ml PO BID 28 Days Qty: 280 6RF acetylcysteine 600 mg capsule See Rx Instructions .ROUTE .COMPLEX Qty: 60 12RF Dose Instruction: TAKE ONE CAPSULE BY MOUTH TWICE A DAY Rx Instructions: TAKE ONE CAPSULE BY MOUTH TWICE A DAY melatonin 3 MG tablet 3 mg PO HS levetiracetam 500 mg tablet 500 mg PO BID Patient Comments: TAKE ONE TABLET BY MOUTH TWICE A DAY losartan 50 mg tablet 50 mg PO DAILY Patient Comments: TAKE ONE TABLET BY MOUTH EVERY DAY ipratropium-albuterol 0.5 mg-3 mg(2.5 mg base)/3 mL solution for nebulization 3 ml IN BID Rx Instructions: increased dose/use treatment 4 times/day as needed NOT SENT ferrous sulfate [Feosol] 325 mg (65 mg iron) tablet 325 mg PO DAILY Align Jr 10.5 mg (10 million cell) tablet,chewable 10.5 mg PO DAILY HPI General Date/Time Provider Initiated Documentation: 08/16/24 00:14. HPI Narrative: The patient is a 79-year-old male, with a past medical history significant for laryngeal cancer status post laryngectomy, chronic respiratory failure utilizing a trach mask, feeding tube, dyspnea on exertion, coronary artery disease, hypothyroidism, hypertension, hyperlipidemia, prior history of alcohol misuse disorder, who presents to the emergency department this evening with complaints of blacking out and falling back into a dresser striking the right posterior scalp and suffering a laceration and hematoma in this area. The patient tells me that he has been feeling increasingly weak over the last few weeks. He also tells me that he has been intermittently having syncopal episodes for several months now. He tells me that he has had some increased cough and increased difficulty breathing over the last few days. He typically does tube feeding and has been tolerating this relatively well at home. The patient has difficulty communicating and utilizes a voice synthesizer. He denies any palpitations or increased shortness of breath prior to the syncopal event. He tells me I had no warning. Related Data Home Medications ?Medication ?Instructions ?Recorded ?Confirmed omeprazole 20 mg capsule,delayed 20 mg feeding tube BID #90 caps 10/05/19 08/15/24 release melatonin 3 mg tablet 3 mg PO HS 10/29/19 08/15/24 rosuvastatin 40 mg tablet 40 mg feeding tube HS #90 tabs 12/14/19 08/15/24 acetylcysteine 100 mg/mL (10 %) 4 ml inhalation BID 07/05/20 08/15/24 solution ropinirole 1 mg tablet 1 mg PO BID 01/07/22 08/15/24 acetaminophen 500 mg tablet 1,000 mg PO BID PRN 03/05/22 08/15/24 (Tylenol Extra Strength) polyethylene glycol 3350 17 17 g PO DAILY PRN constipation 06/19/22 08/15/24 gram/dose oral powder (Miralax) nystatin 100,000 unit/gram topical 1 applic topical BID #60 grams 02/19/23 08/15/24 powder levothyroxine 88 mcg capsule 88 mcg PO DAILY 09/02/23 08/15/24 metoprolol succinate 25 mg 25 mg PO DAILY 09/02/23 08/15/24 tablet,extended release 24 hr levetiracetam 500 mg tablet 500 mg PO BID 02/17/24 08/15/24 losartan 50 mg tablet 50 mg PO DAILY 02/17/24 08/15/24 sertraline 50 mg tablet 50 mg PO DAILY #30 tabs 02/23/24 08/15/24 finasteride 5 mg tablet 5 mg PO DAILY #90 tabs 03/02/24 08/15/24 tamsulosin 0.4 mg capsule (Flomax) 0.4 mg PO DAILY #90 caps 03/02/24 08/15/24 Bifidobacterium infantis 10.5 mg 10.5 mg PO DAILY 03/13/24 08/15/24 (10 million cell) chewable tablet (Align Jr) ferrous sulfate 325 mg (65 mg 325 mg PO DAILY 03/13/24 08/15/24 iron) tablet (Feosol) sulfamethoxazole 200 5 ml PO BID 28 days #280 mL 03/29/24 08/15/24 mg-trimethoprim 40 mg/5 mL oral suspension gabapentin 300 mg capsule 300 mg PO QID #360 caps 06/29/24 08/15/24 ipratropium 0.5 mg-albuterol 3 mg 3 ml IN BID shortness of breath or 08/03/24 08/15/24 (2.5 mg base)/3 mL nebulization wheezing soln acetylcysteine 600 mg capsule See Rx Instructions .Route 08/08/24 08/15/24 .COMPLEX #60 caps Previous Rx's ?Medication ?Instructions ?Recorded omeprazole 20 mg capsule,delayed 20 mg feeding tube BID #90 caps 10/05/19 release rosuvastatin 40 mg tablet 40 mg feeding tube HS #90 tabs 12/14/19 nystatin 100,000 unit/gram topical 1 applic topical BID #60 grams 02/19/23 powder sertraline 50 mg tablet 50 mg PO DAILY #30 tabs 02/23/24 finasteride 5 mg tablet 5 mg PO DAILY #90 tabs 03/02/24 tamsulosin 0.4 mg capsule (Flomax) 0.4 mg PO DAILY #90 caps 03/02/24 sulfamethoxazole 200 5 ml PO BID 28 days #280 mL 03/29/24 mg-trimethoprim 40 mg/5 mL oral suspension gabapentin 300 mg capsule 300 mg PO QID #360 caps 06/29/24 acetylcysteine 600 mg capsule See Rx Instructions .Route 08/08/24 .COMPLEX #60 caps Allergies Allergy/AdvReac Type Severity Reaction Status Date / Time pollen extracts Allergy Mild Wheezing Verified 08/15/24 23:58 Tetracyclines Allergy Unknown SKIN RASH Verified 08/15/24 23:58 General Stated Complaint: Laceration CHER: 3 Exam Const General: cooperative, no acute distress, well groomed and frail appearing Nutritional Appearance: average body habitus Orientation: alert, awake and oriented x3 Limitations: other limitations (Voice synthesizer) HENMT Head: laceration (6 cm curvilinear laceration to the right occiput without galea involvement) Ears: external ears normal and TM's normal bilaterally Face and sinus: normal facial exam Eyes Pupils: PERRL EOM: EOM intact bilaterally Neck Neck: other (There is a an anterior tracheostomy hole, utilizing supplemental oxygen) Resp Effort & Inspection: normal respiratory effort and cough Quality of cough: wet Auscultation: diminished lung sounds and wheezes inspiratory wheezes and right lower Cardio Jugular venous pressure: no JVD Rhythm: regular rhythm Heart Sounds: murmur systolic Pulses: radial pulses present and dorsalis pedis present GI Inspection: other (There is an intact feeding tube in the epigastric area) Palpation: soft Auscultation: normal bowel sounds Back/Spine/Pelvis Cervical Spine: cervical ROM normal and No cervical spinal tenderness Thoracic/Lumbar Spine: thoracic and lumbar spine normal to inspection, No thoracic spinal tenderness and No lumbar spinal tenderness Neuro General: patient alert, patient awake, patient oriented x3, moves all extremities and CN's II-XI intact bilaterally Course Vital Signs Vital signs: Vital Signs Temperature 36.6 C 08/15/24 23:47 Pulse 66 08/15/24 23:47 Respiratory Rate 18 08/15/24 23:47 Blood Pressure 172/25 H 08/15/24 23:47 Pulse Oximetry 93 08/15/24 23:47 Temperature 36.6 C 08/15/24 23:47 Temperature Source Temporal Artery Scan 08/15/24 23:47 Pulse 72 08/16/24 00:30 Pulse 72 08/16/24 00:30 Respiratory Rate 20 08/16/24 00:30 Blood Pressure 172/25 H 08/15/24 23:47 Blood Pressure Position Supine 08/15/24 23:47 Pulse Oximetry 100 08/16/24 00:30 Oxygen Delivery Method Trach Collar 08/15/24 23:47 Oxygen Flow Rate 5 08/15/24 23:47 Lab/Test Results Lab/Test Results: Laboratory Tests Range/Units 08/16/24 00:23 WBC (4.4-10.8) 10^3/uL 9.73 RBC (4.36-5.78) 10^6/uL 3.52 L Hgb (13.5-17.5) g/dL 11.6 L Hct (40.0-50.0) % 35.9 L MCV (80-95) fL 102 H MCH (27.0-33.0) pg 33.0 MCHC (32.0-36.0) % 32.3 RDW (11.8-14.1) % 12.6 Plt Count (130-400) 10^3/uL 200 MPV (8.0-11.0) fL 9.9 Immature Gran % % 0.5 Neutrophils % % 82.8 Lymphocytes % % 6.9 Monocytes % % 6.5 Eosinophils % % 2.3 Basophils % % 1.0 Nucleated RBC % (0.0-0.3) % 0.0 Absolute Neutrophils (1.2-6.7) 10^3/uL 8.06 H Absolute Lymphocytes (1.2-3.4) 10^3/uL 0.67 L Absolute Monocytes (0.1-0.8) 10^3/uL 0.63 Absolute Eosinophils (0.0-0.7) 10^3/uL 0.22 Absolute Basophils (0.0-0.2) 10^3/uL 0.10 PT (9.1-11.1) sec 10.7 INR (0.9-1.1) 1.1 APTT (20.6-30.2) sec 24.6 VBG Lactate (<or=2.0) mmol/L 1.4 Sodium (136-145) mmol/L 141 Potassium (3.5-5.1) mmol/L 4.2 Chloride (98-107) mmol/L 101 Carbon Dioxide (21.0-32.0) mmol/L 30.6 Anion Gap (3-11) mmol/L 9.4 BUN (7-18) mg/dL 36 H Creatinine (0.70-1.30) mg/dL 1.0 Est GFR (CKD-EPI 2020) (mL/min/1.73m2) 77.04 Glucose (74-106) mg/dL 114 H Calcium (8.5-10.1) mg/dL 9.3 Total Bilirubin (0.2-1.0) mg/dL 0.70 AST (15-37) U/L 34 ALT (16-63) U/L 43 Alkaline Phosphatase (46-116) U/L 98 Troponin I (<or=76) ng/L 21 Total Protein (6.4-8.2) g/dL 7.1 Albumin (3.4-5.0) g/dL 3.2 L Procedure Laceration Scalp Laceration: Date of Procedure: 08/16/24 Time of procedure: 01:00 Provider that performed the procedure: Alfonso Chisholm Standard Time Out Performed: Yes Patient Consented: Verbally Site: scalp Side (If applicable): right Description: linear Depth: involves muscle layer Local anesthetic: Lidocaine 1% Amount of anesthesia used (mL): 9 Pre-repair:: wound explored and irrigated extensively Skin layer closed with: nylon Suture size: 4-0 Number of sutures:: 8 Technique: running Subcutaneous layer closed with: vicryl Suture size: 4-0 Number of sutures:: 2 Technique:: simple, interrupted Complications: None Medical Decision Making The patient was seen and examined. He appears in no distress and has relatively normal vital signs here in the emergency room other than some hypertension, which is likely his baseline. The patient has a relatively low pulse compared to prior evaluations, but it continues to be in the mid 60s. The patient's EKG represents a right bundle branch block without any severe repolarization abnormalities that may indicative of pattern injury ischemia. The patient is afebrile and does have a modestly low oxygen saturation at 93% on supplemental oxygen by trach mask. The patient's initial blood work was negative for any obvious concerns. He will undergo a head and cervical spine CT to exclude traumatic injuries from his fall. His laceration was primarily repaired in a 2 layer repair. The patient will have a chest x-ray to evaluate him for the possibility of pneumonia. I will discuss disposition with the patient, but my understanding is that in the past he has been reluctant to be admitted or undergo placement. Given the fact that he had a unplanned and significantly injurious syncopal episode, he would most likely benefit from admission for observation for telemetry monitoring and further cardiac testing. 0400 - The patient's CT scanning was negative for any new findings, although there were some mild changes to his chronic cystic hygromas. There was no evidence of any active traumatic injury in this setting. Likewise, the patient did not reveal any fractures or new injuries to the cervical spine on testing. The patient has a chronic first rib fracture which was again noted on his neck CT. The patient's chest x-ray was significant for chronic COPD disease, with no acute local infiltrating process. The patient again was noted to have a pyuria without any obvious symptoms or significant findings on his urine dipstick. Over the arc of the last several years, the patient has really failed to grow any specific organisms be on mixed gram-positive vidhi. The patient has no longer been requiring his indwelling Denny catheter, at least since June of this year. We have not replaced it during this shift. The patient has improved his lung function here in the emergency room and is saturating 100% on 6 L by his trach mask. I discussed the case for admission with the hospitalist service, Dr. Familia Atkins, who agreed to the admission. Based on the patient's last palliative care note, the patient really would be better served with long-term placement. His would also likely benefit from this arrangement as they have relatively frequent conflicts regarding his care at home, and she clearly is not able to pick him up off the floor with any falls, or realistically care for him in the fashion that would be required to optimize his safety. Quality:SDOH Health Related Social Needs: No Data to Display PFSH All Active Problems (Updated 08/16/24 @ 04:09 by Alfonso Chisholm MD) Laceration of occipital region of scalp (Acute) Foreign body sensation, throat (Acute) Fall (Acute) Orthostatic hypotension (Acute) Right clavicle fracture (Acute 08/30/23) Syncope (Chronic) Ground glass opacity present on imaging of lung (Acute) Subdural hematoma (Acute) Pulmonary edema (Acute) Fracture of thumb, left, closed (Acute) Acute non-ST elevation myocardial infarction (NSTEMI) (Acute) Arm pain (Acute) Palliative care patient (Acute) Hemoptysis (Acute) Caregiver stress (Acute) Nausea & vomiting (Acute) Regurgitation of food (Acute) Pulmonary embolism (Chronic) Uses feeding tube (Acute) Gross hematuria (Acute) Ambulatory dysfunction (Acute) Leukocytosis (leucocytosis) (Acute) UTI (urinary tract infection) (Acute) Multiple subsegmental pulmonary emboli without acute cor pulmonale (Acute) C1 cervical fracture (Acute) Gastrostomy tube dysfunction (Acute) Advance care planning (Acute) Encounter for hospice care discussion (Acute) Unintentional weight loss of 10% body weight within 6 months (Acute) Dysuria (Acute) Malfunctioning jejunostomy tube (Acute) Need for follow-up by web content & social media manager (Acute) Dysphagia (Acute) Weakness (Acute) Impaired instrumental activities of daily living (Acute) Plantar fascial fibromatosis (Acute) Feeding tube dysfunction (Acute) Sensorineural hearing loss (SNHL) of both ears (Acute) Otalgia of right ear (Acute) Neck pain on right side (Acute) Neck pain on right side (Acute) Full code status (Acute) Need for home health care (Acute) MRSA pneumonia (Acute) pt likely colonized Occlusion of right vertebral artery (Acute) Hypoxemia (Acute) Complication of feeding tube (Acute) Peripheral neuropathy (Acute 02/21/15) PAOD (peripheral arterial occlusive disease) (Acute) Laryngeal cancer (Acute) COPD (chronic obstructive pulmonary disease) (Chronic) G tube feedings (Acute) 20F 3.0cm 11/30/22. Routine change every 4 months. 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 Hypertension Tobacco use COPD (chronic obstructive pulmonary disease) Post herpetic neuralgia Hypothyroidism Hyperlipemia Depression Anxiety Anemia Conjunctivitis, chronic Surgical History S/P AAA (abdominal aortic aneurysm) repair Status post laryngectomy History of esophagogastroduodenoscopy (EGD) (~08/10/19) Daron Casper [place] [facility] [place], GERD, Reyes's esophagitis, neuromuscular dysfunction History of laryngectomy Status post cardiac catheterization Status post cataract extraction and insertion of intraocular lens of right eye (07/12/18) History of tarsorrhaphy Status post cataract extraction and insertion of intraocular lens of left eye (04/30/12) 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) Sin-mullins button placed by Dr Elia Mcdonald, [place] PROCEDURES RT/LEFT HEART CARD CATH COMPLETE LARYNGECTOMY Esophagoplasty EGD - MAC (07/06/17) Colonoscopy - MAC (12/22/16) History of radical laryngectomy Family History Nephew Throat cancer Maternal Cousin Cancer Social History Smoking/Tobacco Use Status: Former Tobacco Use Quit Date: 04/23/13 Tobacco: How many years used: 20 Smoking risk assessment performed?: Yes Alcohol Intake: never Drug use: Never Substance use type: does not use Housing: apartment Current gender identity: male Do you feel safe at home: Yes Do you feel safe in your relationship?: Yes
[2024-08-16 01:59] LABS: Troponin I 19 ng/L (<or=76)
--- NOTE | 2024-08-16 02:23 | DI.VRAD_ITS ---
PROCEDURE INFORMATION: Exam: CT Head Without Contrast Exam date and time: 08/16/2024 1:21 AM Age: 79 years old Clinical indication: Injury or trauma; Blunt trauma (contusions or hematomas); Consciousness not specified; Injury date: 08/15/24; Injury details: Fall, head laceration, elderly; Prior surgery; Surgery date: 6+ months; Surgery type: Laryngectomy TECHNIQUE: Imaging protocol: Computed tomography of the head without contrast. Radiation optimization: All CT scans at this facility use at least one of these dose optimization techniques: automated exposure control; mA and/or kV adjustment per patient size (includes targeted exams where dose is matched to clinical indication); or iterative reconstruction. COMPARISON: CT HEAD CERV SPINE FACIAL WO 06/11/2024 6:43 PM FINDINGS: Brain: Allowing for differences in technique and patient had position there is no substantial difference in the extensive/large right-sided subacute-chronic subdural hematoma/fluid collection. Subjectively, the extensive left-sided subacute-chronic subdural hematoma is slightly increased in size compared to the prior study. No hyperdense components to indicate acute blood. Stable equivocal slight leftward midline shift which is difficult to determine with certainty given that the patient has head is somewhat obliquely positioned. Volume loss and chronic small vessel ischemic change. Cerebral ventricles: No ventriculomegaly. Paranasal sinuses: Visualized sinuses are unremarkable. No fluid levels. Mastoid air cells: Unremarkable. Orbital cavities: Stable posterior left intra-ocular hyperdensity may be sequelae of prior intra-ocular hemorrhage or retinal/choroidal detachment. Bones: Unremarkable. No acute fracture. Soft tissues: Unremarkable. IMPRESSION: 1. Allowing for differences in technique and patient had position there is no substantial difference in the extensive/large right-sided subacute-chronic subdural hematoma/fluid collection. Subjectively, the extensive left-sided subacute-chronic subdural hematoma is slightly increased in size compared to the prior study. No hyperdense components to indicate acute blood. 2. Stable equivocal slight leftward midline shift which is difficult to determine with certainty given that the patient has head is somewhat obliquely positioned. PROCEDURE INFORMATION: Exam: CT Cervical Spine Without Contrast Exam date and time: 08/16/2024 1:21 AM Age: 79 years old Clinical indication: Injury or trauma; Blunt trauma (contusions or hematomas); Consciousness not specified; Injury date: 08/15/24; Injury details: Fall, head laceration, elderly; Prior surgery; Surgery date: 6+ months; Surgery type: Laryngectomy TECHNIQUE: Imaging protocol: Computed tomography of the cervical spine without contrast. Radiation optimization: All CT scans at this facility use at least one of these dose optimization techniques: automated exposure control; mA and/or kV adjustment per patient size (includes targeted exams where dose is matched to clinical indication); or iterative reconstruction. 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 There is a stable fracture lucency the vertebral end of left 1st rib. Multilevel central canal stenosis and neural foraminal narrowing secondary to extensive degenerative change. No fracture. Trachea: Tracheostomy. Lungs: Biapical pleural/parenchymal scarring and calcification. Emphysema. Soft tissues: Unremarkable. IMPRESSION: No fracture. Dictated and Authenticated by: Fede Mart MD. Orderin Phan Hamilton MD
[2024-08-16 02:28] LABS: Bilirubin Negative (Negative); Blood Negative (Negative); Clarity Clear (Clear); Glucose Negative (Negative); Ketones Negative (Negative); Leukocyte Esterase Moderate (Negative); Nitrite Negative (Negative); Urobilinogen 0.2 mg/dL (Up to 0.2)
--- NOTE | 2024-08-16 02:39 | DI.VRAD_ITS ---
PROCEDURE INFORMATION: Exam: XR Chest Exam date and time: 08/16/2024 1:19 AM Age: 79 years old Clinical indication: Prior surgery; Surgery date: 6+ months; Surgery type: Laryngectomy; Syncope. Looking for infection sources TECHNIQUE: Imaging protocol: Radiologic exam of the chest. Views: 1 view. COMPARISON: CR XR CHEST 2V PA LATERAL 08/03/2024 5:49 PM FINDINGS: Lungs: See Heart/Mediastinum finding. Pleural spaces: Unremarkable. No pleural effusion. No pneumothorax. Heart/Mediastinum: Cardiomediastinal silhouette is unremarkable allowing for oblique patient positioning an apical lordotic projection. Bones/joints: Unremarkable. IMPRESSION: No acute findings. Dictated and Authenticated by: Fede Mart MD. Orderin Phan Hamilton MD
[2024-08-16 02:42] LABS: Bacteria Rare HPF (Negative); C & S Indicated? Yes; Casts Negative LPF (Negative); Crystals Negative HPF (Negative); Epithelial Cells Negative HPF (Negative); Mucus Negative (Negative); RBC 0-2 HPF (0-2); WBC 20-50 HPF (0-5)
[2024-08-16 04:25] LABS: COVID-19 PCR Negative (Negative); Influenza A PCR Negative (Negative); Influenza B PCR Negative (Negative); RSV PCR Negative (Negative)
[2024-08-16 04:27] LABS: Source Nasopharynx
[2024-08-16 04:41] LABS: Troponin I 20 ng/L (<or=76)
--- NOTE | 2024-08-16 11:48 | W.PC.ACHO ---
Registration Status: Primary Language: Preferred Language: ED Information & Data Chief Complaint Laceration 08/16/24 01:31 Triage Note Fell less than 1 hour ago, 08/15/24 23:47 stated everything was normal and he blacked out, hit dresser with back of head, small hematoma to the back of his head, no active bleeding Medical / Surgical History (Last Reviewed 07/19/24 @ 15:07 by Isha Mayo NP) History of laryngeal cancer Chronic respiratory failure with hypoxia Pneumonia Shortness of breath Complication of feeding tube Hematoma following procedure Blockage of feeding tube Dyspnea on exertion Neurotrophic cornea of left eye Left corneal scar with opacity Cortical cataract of right eye Nuclear sclerotic cataract of right eye Posterior subcapsular age-related cataract, right eye Feeding tube dysfunction CAD (coronary artery disease) Sessile colonic polyp Restless leg syndrome (02/21/15) Pulmonary nodule, right (05/30/15) Primary malignant neoplasm of oropharynx Impingement syndrome, shoulder, left (10/10/16) Hypothyroidism (11/18/12) Hypertension (11/18/12) Hyperlipidemia (11/18/12) History of tobacco use History of alcoholism Herpes zoster Depressive disorder (11/18/12) 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/17) Aphonia Anxiety 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) Hypertension Tobacco use COPD (chronic obstructive pulmonary disease) Post herpetic neuralgia Hypothyroidism Hyperlipemia Depression Anxiety Anemia Conjunctivitis, chronic (Last Reviewed 07/19/24 @ 15:07 by Isha Mayo NP) S/P AAA (abdominal aortic aneurysm) repair Status post laryngectomy History of esophagogastroduodenoscopy (EGD) (~08/10/19) History of laryngectomy Status post cardiac catheterization Status post cataract extraction and insertion of intraocular lens of right eye (07/12/18) History of tarsorrhaphy Status post cataract extraction and insertion of intraocular lens of left eye (04/30/12) 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) PROCEDURES EGD - MAC (07/06/17) Colonoscopy - MAC (12/22/16) History of radical laryngectomy Most Recent Vital Signs Temperature 37 C 08/16/24 09:03 Temperature Source Temporal Artery Scan 08/16/24 09:03 Pulse 73 08/16/24 10:13 Pulse 77 08/16/24 10:13 Respiratory Rate 13 08/16/24 10:13 Respiratory Effort Normal 08/16/24 09:03 Respiratory Depth Deep 08/16/24 09:03 Respiratory Pattern Normal 08/16/24 09:03 Blood Pressure 144/48 H 08/16/24 10:13 Blood Pressure Mean 76 08/16/24 10:13 Blood Pressure Position Supine 08/15/24 23:47 Pulse Oximetry 91 L 08/16/24 10:21 Oxygen Delivery Method Trach Collar 08/16/24 10:21 Oxygen Flow Rate 4 08/16/24 10:21 Fraction of Inspired Oxygen (FIO2) 28 08/16/24 10:21 Pain Level 6 08/16/24 09:03 Comment 6L 08/16/24 06:20 Allergies pollen extracts Allergy (Mild, Verified 08/15/24 23:58) Wheezing Tetracyclines Allergy (Unknown, Verified 08/15/24 23:58) SKIN RASH Precautions Isolation Standard precaution 08/16/24 00:35 IV IV Catheter Type [Left Hand] Saline Lock IV Catheter Gauge [Left Hand] 20 Diet Orders Category Date Time Status Nothing Per Oral [DIET] Nutrition 08/16/24 Breakfast Active Diagnostics 08/16/24 08/16/24 08/16/24 Range/Units 03:50 03:40 02:18 WBC (4.4-10.8) 10^3/uL RBC (4.36-5.78) 10^6/uL Hgb (13.5-17.5) g/dL Hct (40.0-50.0) % MCV (80-95) fL MCH (27.0-33.0) pg MCHC (32.0-36.0) % RDW (11.8-14.1) % Plt Count (130-400) 10^3/uL MPV (8.0-11.0) fL Immature Gran % % Neutrophils % % Lymphocytes % % Monocytes % % Eosinophils % % Basophils % % Nucleated RBC % (0.0-0.3) % Absolute Neutrophils (1.2-6.7) 10^3/uL Absolute Lymphocytes (1.2-3.4) 10^3/uL Absolute Monocytes (0.1-0.8) 10^3/uL Absolute Eosinophils (0.0-0.7) 10^3/uL Absolute Basophils (0.0-0.2) 10^3/uL PT (9.1-11.1) sec INR (0.9-1.1) APTT (20.6-30.2) sec VBG Lactate (<or=2.0) mmol/L Sodium (136-145) mmol/L Potassium (3.5-5.1) mmol/L Chloride (98-107) mmol/L Carbon Dioxide (21.0-32.0) mmol/L Anion Gap (3-11) mmol/L BUN (7-18) mg/dL Creatinine (0.70-1.30) mg/dL Est GFR (CKD-EPI 2020) (mL/min/1.73m2) Glucose (74-106) mg/dL Calcium (8.5-10.1) mg/dL Total Bilirubin (0.2-1.0) mg/dL AST (15-37) U/L ALT (16-63) U/L Alkaline Phosphatase (46-116) U/L Troponin I 20 (<or=76) ng/L Total Protein (6.4-8.2) g/dL Albumin (3.4-5.0) g/dL Urine Color Yellow (Yellow) Urine Clarity Clear (Clear) Urine pH 6.0 (5-8) Ur Specific [place] 1.010 (1.005-1.025) Urine Protein Trace (Neg-Trace) mg/dL Urine Ketones Negative (Negative) mg/dL Urine Blood Negative (Negative) Urine Nitrite Negative (Negative) Urine Bilirubin Negative (Negative) Urine Urobilinogen 0.2 (Up to 0.2) mg/dL Ur Leukocyte Esterase Moderate H (Negative) Urine RBC 0-2 (0-2) HPF Urine WBC 20-50 H (0-5) HPF Ur Epithelial Cells Negative (Negative) HPF Urine Crystals Negative (Negative) HPF Urine Bacteria Rare (Negative) HPF Urine Casts Negative (Negative) LPF Urine Mucus Negative (Negative) Ur Culture Indicated? Yes Urine Glucose Negative (Negative) mg/dL COVID-19 Source Nasopharynx SARS-CoV-2 (PCR) Negative (Negative) Influenza Type A (PCR) Negative (Negative) Influenza Type B (PCR) Negative (Negative) RSV (PCR) Negative (Negative) 08/16/24 08/16/24 Range/Units 01:23 00:23 WBC 9.73 (4.4-10.8) 10^3/uL RBC 3.52 L (4.36-5.78) 10^6/uL Hgb 11.6 L (13.5-17.5) g/dL Hct 35.9 L (40.0-50.0) % MCV 102 H (80-95) fL MCH 33.0 (27.0-33.0) pg MCHC 32.3 (32.0-36.0) % RDW 12.6 (11.8-14.1) % Plt Count 200 (130-400) 10^3/uL MPV 9.9 (8.0-11.0) fL Immature Gran % 0.5 % Neutrophils % 82.8 % Lymphocytes % 6.9 % Monocytes % 6.5 % Eosinophils % 2.3 % Basophils % 1.0 % Nucleated RBC % 0.0 (0.0-0.3) % Absolute Neutrophils 8.06 H (1.2-6.7) 10^3/uL Absolute Lymphocytes 0.67 L (1.2-3.4) 10^3/uL Absolute Monocytes 0.63 (0.1-0.8) 10^3/uL Absolute Eosinophils 0.22 (0.0-0.7) 10^3/uL Absolute Basophils 0.10 (0.0-0.2) 10^3/uL PT 10.7 (9.1-11.1) sec INR 1.1 (0.9-1.1) APTT 24.6 (20.6-30.2) sec VBG Lactate 1.4 (<or=2.0) mmol/L Sodium 141 (136-145) mmol/L Potassium 4.2 (3.5-5.1) mmol/L Chloride 101 (98-107) mmol/L Carbon Dioxide 30.6 (21.0-32.0) mmol/L Anion Gap 9.4 (3-11) mmol/L BUN 36 H (7-18) mg/dL Creatinine 1.0 (0.70-1.30) mg/dL Est GFR (CKD-EPI 2020) 77.04 (mL/min/1.73m2) Glucose 114 H (74-106) mg/dL Calcium 9.3 (8.5-10.1) mg/dL Total Bilirubin 0.70 (0.2-1.0) mg/dL AST 34 (15-37) U/L ALT 43 (16-63) U/L Alkaline Phosphatase 98 (46-116) U/L Troponin I 19 21 (<or=76) ng/L Total Protein 7.1 (6.4-8.2) g/dL Albumin 3.2 L (3.4-5.0) g/dL Urine Color (Yellow) Urine Clarity (Clear) Urine pH (5-8) Ur Specific [place] (1.005-1.025) Urine Protein (Neg-Trace) mg/dL Urine Ketones (Negative) mg/dL Urine Blood (Negative) Urine Nitrite (Negative) Urine Bilirubin (Negative) Urine Urobilinogen (Up to 0.2) mg/dL Ur Leukocyte Esterase (Negative) Urine RBC (0-2) HPF Urine WBC (0-5) HPF Ur Epithelial Cells (Negative) HPF Urine Crystals (Negative) HPF Urine Bacteria (Negative) HPF Urine Casts (Negative) LPF Urine Mucus (Negative) Ur Culture Indicated? Urine Glucose (Negative) mg/dL COVID-19 Source SARS-CoV-2 (PCR) (Negative) Influenza Type A (PCR) (Negative) Influenza Type B (PCR) (Negative) RSV (PCR) (Negative) 08/16/24 02:18 Urine Culture - Pending Urine - Reflex from Ua Intake and Output - 24 Hour Total 08/15/24 23:29 thru 08/16/24 10:23 Output Total 125 Balance -125 Weight 58.3 kg Output: Urine 125 Other: Urine Color Yellow Urine Appearance Clear Falls Risk Assessment History of Falls Admit Due to Fall 08/16/24 09:03 Contributing Factors Unstable,Impairments 08/16/24 09:03 Ambulatory Aids Uses ambulatory device 08/16/24 09:03 Tubes/Lines W/no contributing factors 08/16/24 09:03 Gait Evaluation W/no contributing factors 08/16/24 09:03 Cognition No cognitive impairment 08/16/24 09:03 Fall Total Score 66 08/16/24 09:03 Level of Risk High Risk 08/16/24 09:03 Problems (Last Reviewed 07/19/24 @ 15:07 by Isha Mayo NP) Laceration of occipital region of scalp (Acute) Fall (Acute) Weakness (Acute) COPD (chronic obstructive pulmonary disease) (Chronic) Dependence on supplemental oxygen (Chronic) v v v v v v v v v Sending and/or Receiving Nurses: Please use comment section below to note any information pertinent to the patient hand-off not included above. Information / Comments: patient admitted from the ED After falling at home when his legs just collapsed on him. Patient had head laceration. Does have history of multiple falls. Has history of old trach s/p laryngectomy, and wearing blow by oxygen, per home baseline. Patient arrived on stretcher A/O x 3. Patient has G-tube history, and is covered with gauze dressing. Has left hand PIV with bloody drainage seen under tegaderm dressing. 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 Report received from:Soco Cook RN
[2024-08-16] MEDS: Gabapentin 300 MG CAP PO ×3 (12:40→20:32)
[2024-08-16] MEDS: Enoxaparin 40 MG/0.4 ML SYR SC (14:16)
[2024-08-16] MEDS: Normal Saline Flush 10 ML SYR IVP (14:44)
--- NOTE | 2024-08-16 14:54 | HPE_ITS ---
Date of service: 08/16/24 Time of Service: 01:30 Assessment and Plan Assessment and plan (1) Recurrent syncope: Status: Acute Assessment and plan: These episodes sound c/w vagal episodes a/w gagging/choking on secretions. However he is high risk for cardiac syncope EKG and troponins are reassuring. He also has seizure history but these are not c/w seizures He has orthostatic hypotension on his list, document orthostatic VS Will observe on telemetry, get echocardiography (2) Hypertension: Assessment and plan: Hold amlodipine for now. (3) G tube feedings: Status: Acute Assessment and plan: Continue home tube feeds. Uses nutrin 2.0 8oz QID, I'm not sure equivalent that is available here, will ask for nutrition. (4) COPD (chronic obstructive pulmonary disease): Status: Chronic Assessment and plan: He isn't wheezing, O2 at baseline. Continue outpatient therapy. (5) Palliative care patient: Status: Acute Assessment and plan: palliative care referral (6) Anemia: Assessment and plan: mild, follow History of Present Illness History of Present Illness Chief Complaint: fall, syncope, head trauma N arrative: 79-year-old male with a past medical history significant for laryngeal cancer status post laryngectomy, chronic respiratory failure utilizing a trach mask on 6 liters home oxygen, feeding tube, and coronary artery disease who presented to the emergency department after blacking out and falling back into a dresser striking the right posterior scalp and suffering a laceration and hematoma in this area. He has had recurrent episodes of loosing strength and blacking out and falling over the past weeks to months. Each time, they happen after mucous gets stuck in his trachea and he can't breath. He tries to hack it up and sometimes uses a little tweazers to get it out. Syncope has never happened when he is lying down or just randomly. Currently he feels better. He had a laceration repaired on his scalp and it is a little sore, but no headache. He has not had chest pain or palpitations associated with the events or currently. He does not have more than normal cough or shortness of breath. No runny nose or other URI symptoms. He is not dizzy or have any focal numbness or weakness. Review of Systems All systems reviewed & are unremarkable except as noted in HPI and below Genitourinary Genitourinary: Denies hematuria, Denies oliguria, Denies difficulty urinating and Denies dysuria PFSH All Active Problems (Updated 08/16/24 @ 16:39 by Dwayne Lozada) Recurrent syncope (Acute) Laceration of occipital region of scalp (Acute) Foreign body sensation, throat (Acute) Fall (Acute) Orthostatic hypotension (Acute) Right clavicle fracture (Acute 08/30/23) Syncope (Chronic) Ground glass opacity present on imaging of lung (Acute) Subdural hematoma (Acute) Pulmonary edema (Acute) Fracture of thumb, left, closed (Acute) Acute non-ST elevation myocardial infarction (NSTEMI) (Acute) Arm pain (Acute) Palliative care patient (Acute) Hemoptysis (Acute) Caregiver stress (Acute) Nausea & vomiting (Acute) Regurgitation of food (Acute) Pulmonary embolism (Chronic) Uses feeding tube (Acute) Gross hematuria (Acute) Ambulatory dysfunction (Acute) Leukocytosis (leucocytosis) (Acute) UTI (urinary tract infection) (Acute) Multiple subsegmental pulmonary emboli without acute cor pulmonale (Acute) C1 cervical fracture (Acute) Gastrostomy tube dysfunction (Acute) Advance care planning (Acute) Encounter for hospice care discussion (Acute) Unintentional weight loss of 10% body weight within 6 months (Acute) Dysuria (Acute) Malfunctioning jejunostomy tube (Acute) Need for follow-up by social work therapist (Acute) Dysphagia (Acute) Weakness (Acute) Impaired instrumental activities of daily living (Acute) Plantar fascial fibromatosis (Acute) Feeding tube dysfunction (Acute) Sensorineural hearing loss (SNHL) of both ears (Acute) Otalgia of right ear (Acute) Neck pain on right side (Acute) Neck pain on right side (Acute) Full code status (Acute) Need for home health care (Acute) MRSA pneumonia (Acute) pt likely colonized Occlusion of right vertebral artery (Acute) Hypoxemia (Acute) Complication of feeding tube (Acute) G tube feedings (Acute) 20F 3.0cm 11/30/22. Routine change every 4 months. Compression fracture of thoracolumbar vertebra (Acute) PAOD (peripheral arterial occlusive disease) (Acute) Dependence on supplemental oxygen (Chronic) COPD (chronic obstructive pulmonary disease) (Chronic) Peripheral neuropathy (Acute 02/21/15) Laryngeal cancer (Acute) 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 (Acute) Medical History History of laryngeal cancer Chronic respiratory failure with hypoxia Pneumonia Shortness of breath Complication of feeding tube Hematoma following procedure Blockage of feeding tube Dyspnea on exertion Neurotrophic cornea of left eye Left corneal scar with opacity Cortical cataract of right eye Nuclear sclerotic cataract of right eye Posterior subcapsular age-related cataract, right eye Feeding tube dysfunction CAD (coronary artery disease) Sessile colonic polyp 12/22/16-SESSILE SERRATED ADENOMA Restless leg syndrome (02/21/15) Pulmonary nodule, right (05/30/15) on chest CT -2015: stable Primary malignant neoplasm of oropharynx ; yearly fup in Feb (last ) [facility] [place] SX: 2007 ROR: 1999 + 2008 Impingement syndrome, shoulder, left (10/10/16) -2016: PT sugg. 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 Hypertension Tobacco use COPD (chronic obstructive pulmonary disease) Post herpetic neuralgia Hypothyroidism Hyperlipemia Depression Anxiety Anemia Conjunctivitis, chronic Surgical History S/P AAA (abdominal aortic aneurysm) repair Status post laryngectomy History of esophagogastroduodenoscopy (EGD) (~08/10/19) Daron Casper APRN @ [facility] [place]: hiatal hernia, GERD, Reyes's esophagitis, neuromuscular dysfunction History of laryngectomy Status post cardiac catheterization Status post cataract extraction and insertion of intraocular lens of right eye (07/12/18) History of tarsorrhaphy Status post cataract extraction and insertion of intraocular lens of left eye (04/30/12) 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) Sin-mullins button placed by Dr Elia Mcdonald, [facility] PROCEDURES RT/LEFT HEART CARD CATH COMPLETE LARYNGECTOMY Esophagoplasty EGD - MAC (07/06/17) Colonoscopy - MAC (12/22/16) History of radical laryngectomy Family History Nephew Throat cancer Maternal Cousin Cancer Social History Smoking/Tobacco Use Status: Former Tobacco Use Quit Date: 04/23/13 Tobacco: How many years used: 20 Smoking risk assessment performed?: Yes Alcohol Intake: never Drug use: Never Substance use type: does not use Housing: house Current gender identity: male Do you feel safe at home: Yes Do you feel safe in your relationship?: Yes Meds Allergies and Home Medications Allergies Allergy/AdvReac Type Severity Reaction Status Date / Time pollen extracts Allergy Mild Wheezing Verified 08/15/24 23:58 Tetracyclines Allergy Unknown SKIN RASH Verified 08/15/24 23:58 Home Medications ?Medication ?Instructions ?Recorded ?Confirmed ?Type omeprazole 20 mg capsule,delayed 20 mg feeding tube BID #90 caps 10/05/19 08/15/24 Rx release melatonin 3 mg tablet 3 mg PO HS 10/29/19 08/15/24 History rosuvastatin 40 mg tablet 40 mg feeding tube HS #90 tabs 12/14/19 08/15/24 Rx acetylcysteine 100 mg/mL (10 %) 4 ml inhalation BID 07/05/20 08/15/24 History solution ropinirole 1 mg tablet 1 mg PO BID 01/07/22 08/15/24 History acetaminophen 500 mg tablet 1,000 mg PO BID PRN 03/05/22 08/15/24 History (Tylenol Extra Strength) polyethylene glycol 3350 17 17 g PO DAILY PRN constipation 06/19/22 08/15/24 History gram/dose oral powder (Miralax) nystatin 100,000 unit/gram topical 1 applic topical BID #60 grams 02/19/23 08/15/24 Rx powder metoprolol succinate 25 mg 25 mg PO DAILY 09/02/23 08/15/24 History tablet,extended release 24 hr levetiracetam 500 mg tablet 500 mg PO BID 02/17/24 08/15/24 History losartan 50 mg tablet 50 mg PO DAILY 02/17/24 08/15/24 History finasteride 5 mg tablet 5 mg PO DAILY #90 tabs 03/02/24 08/15/24 Rx tamsulosin 0.4 mg capsule (Flomax) 0.4 mg PO DAILY #90 caps 03/02/24 08/15/24 Rx Bifidobacterium infantis 10.5 mg 10.5 mg PO DAILY 03/13/24 08/15/24 History (10 million cell) chewable tablet (Align Jr) ferrous sulfate 325 mg (65 mg 325 mg PO DAILY 03/13/24 08/15/24 History iron) tablet (Feosol) sulfamethoxazole 200 5 ml PO BID 28 days #280 mL 03/29/24 08/15/24 Rx mg-trimethoprim 40 mg/5 mL oral suspension gabapentin 300 mg capsule 300 mg PO QID #360 caps 06/29/24 08/15/24 Rx ipratropium 0.5 mg-albuterol 3 mg 3 ml IN BID shortness of breath or 08/03/24 08/15/24 History (2.5 mg base)/3 mL nebulization wheezing soln acetylcysteine 600 mg capsule See Rx Instructions .Route 08/08/24 08/15/24 Rx .COMPLEX #60 caps levothyroxine 88 mcg tablet 88 mcg PO DAILY 08/16/24 08/16/24 History sertraline 100 mg tablet 100 mg PO DAILY 08/16/24 08/16/24 History Exam Narrative Exam Narrative: GEN: Alert and oriented x 4, pleasant and cooperative, gives linear history. Hard to understand with voice synthesizer, but speaking in full sentences. No acute distress at rest. HEENT: Closed laceration on scalp. Conjunctiva clear, no icterus. PEERL, EOMI. no rhinorrhea. MMM, OP benign. Neck is supple with tracheostomy open with mask, trachea midline, no discharge in area. LUNGS: CTAB with normal effort CV: RRR with no murmurs, gallops, or rubs. ABD: active bowel sounds, soft, nontender and nondistended. No masses. EXT: no cyanosis, clubbing, or edema MSK: No joint redness or swelling NEURO: CN 2-12 grossly intact. Normal movement of 4 extremities. Normal speech and coordination. No tremor SKIN: No rashes or open wounds. PSYCH: normal mood and affect Results Imaging Chest x-ray: report reviewed (No acute findings. ) Imaging Studies: CT Head/cervical: Allowing for differences in technique and patient had position there is no substantial difference in the extensive/large right-sided subacute-chronic subdural hematoma/fluid collection. Subjectively, the extensive left-sided subacute-chronic subdural hematoma is slightly increased in size compared to the prior study. No hyperdense components to indicate acute blood. 2. Stable equivocal slight leftward midline shift which is difficult to determine with certainty given that the patient has head is somewhat obliquely positioned. Labs 08/16/24 00:23 08/16/24 00:23 Labs: Laboratory Results - last 24 hr 08/16/24 08/16/24 08/16/24 00:23 01:23 02:18 WBC 9.73 RBC 3.52 L Hgb 11.6 L Hct 35.9 L MCV 102 H MCH 33.0 MCHC 32.3 RDW 12.6 Plt Count 200 MPV 9.9 Immature Gran % 0.5 Neutrophils % 82.8 Lymphocytes % 6.9 Monocytes % 6.5 Eosinophils % 2.3 Basophils % 1.0 Nucleated RBC % 0.0 Absolute Neutrophils 8.06 H Absolute Lymphocytes 0.67 L Absolute Monocytes 0.63 Absolute Eosinophils 0.22 Absolute Basophils 0.10 PT 10.7 INR 1.1 APTT 24.6 VBG Lactate 1.4 Sodium 141 Potassium 4.2 Chloride 101 Carbon Dioxide 30.6 Anion Gap 9.4 BUN 36 H Creatinine 1.0 Est GFR (CKD-EPI 2020) 77.04 Glucose 114 H Calcium 9.3 Total Bilirubin 0.70 AST 34 ALT 43 Alkaline Phosphatase 98 Troponin I 21 19 Total Protein 7.1 Albumin 3.2 L Urine Color Yellow Urine Clarity Clear Urine pH 6.0 Ur Specific [place] 1.010 Urine Protein Trace Urine Ketones Negative Urine Blood Negative Urine Nitrite Negative Urine Bilirubin Negative Urine Urobilinogen 0.2 Ur Leukocyte Esterase Moderate H Urine RBC 0-2 Urine WBC 20-50 H Ur Epithelial Cells Negative Urine Crystals Negative Urine Bacteria Rare Urine Casts Negative Urine Mucus Negative Ur Culture Indicated? Yes Urine Glucose Negative COVID-19 Source SARS-CoV-2 (PCR) Influenza Type A (PCR) Influenza Type B (PCR) RSV (PCR) 08/16/24 08/16/24 03:40 03:50 WBC RBC Hgb Hct MCV MCH MCHC RDW Plt Count MPV Immature Gran % Neutrophils % Lymphocytes % Monocytes % Eosinophils % Basophils % Nucleated RBC % Absolute Neutrophils Absolute Lymphocytes Absolute Monocytes Absolute Eosinophils Absolute Basophils PT INR APTT VBG Lactate Sodium Potassium Chloride Carbon Dioxide Anion Gap BUN Creatinine Est GFR (CKD-EPI 2021) Glucose Calcium Total Bilirubin AST ALT Alkaline Phosphatase Troponin I 20 Total Protein Albumin Urine Color Urine Clarity Urine pH Ur Specific [place] Urine Protein Urine Ketones Urine Blood Urine Nitrite Urine Bilirubin Urine Urobilinogen Ur Leukocyte Esterase Urine RBC Urine WBC Ur Epithelial Cells Urine Crystals Urine Bacteria Urine Casts Urine Mucus Ur Culture Indicated? Urine Glucose COVID-19 Source Nasopharynx SARS-CoV-2 (PCR) Negative Influenza Type A (PCR) Negative Influenza Type B (PCR) Negative RSV (PCR) Negative Last Vital Signs Temp 36.7 C 08/16/24 12:01 Pulse 81 08/16/24 12:01 Resp 16 08/16/24 12:01 BP 102/52 L 08/16/24 12:01 Pulse Ox 90 L 08/16/24 11:10 Time Spent Time spent with Patient: >75 minutes Time was spent: preparing to see the patient(eg.review tests), obtaining and/or reviewing separately otained hiistory, ordering medications,tests, procedures, referring, communicating with other health critical care technician, indepentently interpreting results, counseling the patient and care coordination
--- NOTE | 2024-08-16 16:31 | PHA.REVIEW2 ---
Pharmacy Admission Review Admission Clinical Review Admission Pharmacy Review: Laceration of occipital region of scalp (Acute) Fall (Acute) Weakness (Acute) pollen extracts Allergy (Mild, Verified 08/15/24 23:58) Wheezing Tetracyclines Allergy (Unknown, Verified 08/15/24 23:58) SKIN RASH Resuscitation Status Full Code Height 5 ft 8 in Weight 58.3 kg Comments Comments/Follow Ups: urine culture pending, elevated temp 37.6 at 1530 today Pharmacy Admission Review Renal Dosing Renal Dosing: BUN 36 mg/dL (7-18) H 08/16/24 00:23 Creatinine 1.0 mg/dL (0.70-1.30) 08/16/24 00:23 Medications needing adjustments: Reviewed (CrCl 50 mL/min) List of meds needing interventions: Current medications are okay Anticoagulation Anticoagulation: Hgb 11.6 g/dL (13.5-17.5) L 08/16/24 00:23 Hct 35.9 % (40.0-50.0) L 08/16/24 00:23 Plt Count 200 10^3/uL (130-400) 08/16/24 00:23 INR 1.1 (0.9-1.1) 08/16/24 00:23 Creatinine 1.0 mg/dL (0.70-1.30) 08/16/24 00:23 DVT Prophylaxis: Intervened (reached out to provider as no order had been put in, provider ordered Lovenox) Medications: Enoxaparin (40mg daily) Relevant Labs Relevant Labs: Sodium 141 mmol/L (136-145) 08/16/24 00:23 Potassium 4.2 mmol/L (3.5-5.1) 08/16/24 00:23 Chloride 101 mmol/L (98-107) 08/16/24 00:23 Electrolytes, C-Reactive P, ESR: Reviewed Cardiac Review Cardiac Review: Troponin I 20 ng/L (<or=76) 08/16/24 03:50 Blood Pressure 125/46 1402 Blood Pressure 102/52 1201 Blood Pressure 144/48 1031 Blood Pressure 86/65 0911 Blood Pressure 124/45 0616 BP, HR, EF%: Reviewed (HR 93, Ox 88, Ox flow rate 4) List meds needing interventions: Has order for losartan 50mg daily and metoprolol XL 25mg daily QTc Review QTc: Reviewed (EKG pending) IV to PO Switch IV Medications: Reviewed Home Meds Home Med List reviewed: Reviewed Relevent Home Meds Not ordered & why?: NAC, levetiracetam and Bactrim TMP Sent message to provider to see if these medications are on hold - waiting to hear back Updated sertraline on home med list to 100mg daily based on fill history and changed current order 2 orders put in as patients own - called nurse to see if these can be brought in for patient, waiting to hear back Current Meds Current Medication Order Review: Reviewed Comments Comments/Follow Ups: urine culture pending, elevated temp 37.6 at 1530 today
--- NOTE | 2024-08-16 18:55 | NS.NUTBLAN_ITS ---
Date of service: 08/16/24 Time of Service: 18:55 Nutritional Consult ASSESSMENT: 79yo male patient being workedup/treated for recurrent syncope. Chan has a PMH which includes COPD, HTN, and multiple years of tube feeding related to hx of laryngeal cancer with lartyngectomy. I met with Chan and preschool teacher's assistant earlier today. She showed his current tube feeding protocol is 4 cartons of nutren 2.0 enteral formula and she explained she usually puts all 4 cartons in the bag and will run it over night while he sleep Total protein lab wnl today, albumin 3.2, electrolytes wnl. Weight history appears fairly stable over at least the lsast 3-6 months. Current estimated energy needs: 1660 kcals (REEx1.3AF), 70g protein (~1,2g/kg) and 1660mL fluid (1mL per required kcal) Current regimen per interview supplies 2000kcals, 84g protein and 692mL water. - preschool teacher's assistant did mention that they don't manage to get the entire amount into him on many occasions. NUTRITIONAL DIAGNOSIS: underweight per current BMI of 19.5. Inabilitiy to take oral foods related to laryngeal cancer hx INTERVENTION: Recommend mimicking patient's feeding routine at home - nutren 2.0 administered nocturnally. As this is his noraml feeding route, starting at lower rate and moving up is not necessary - suggest feedings for 12 hours- from 8pm to 8am 82mL/hour from 8pm to 8am. suggested 30-60mL flushes before and after feeding and again between any meds administered via feeding tube and ad lyle as needed for hydration. MONITORING AND EVALUATION: will monitor tube feed toleration, nutrition -related labs, weight, Time Spent in Nutritional Counseling and Treatment: 10 minutes
[2024-08-16] MEDS: Omeprazole 20 MG CAPCR NG (20:31)
[2024-08-16] MEDS: rOPINIRole 1 MG TAB PO (20:32)
[2024-08-16] MEDS: Melatonin 3 MG TAB PO (20:32)
[2024-08-16] MEDS: Rosuvastatin 20 MG TAB 40 MG PO (20:32)
[2024-08-16] MEDS: levETIRAcetam 500 MG TAB PO (20:32)
[2024-08-16] MEDS: Sulfameth/Trimeth 40-8 mg per ml 5 ML PO (22:11)
[2024-08-17] VITALS (7 sets, daily range): BP systolic 63–138; BP diastolic 45–66; PULSE 73–89; RESP 9–16; TEMP 36.9–37; O2SAT 92–94
--- NOTE | 2024-08-17 04:01 | NUR.NOTE ---
Nursing Note: Pt adamant he was to be disconnected from his tube feed. I asked pt if he does not do tube feed over the whole night at home. Pt did not answer staff. Pt asked to be disconnected from tele box as well as the teddy. I explained that the tele is ordered for his syncopal episodes to monitor his heart, and the bed alarm is policy. I offered to mute the teddy in room, but leave on so we can still check on him. Pt agreed to this. Pt then told staff he does not want to be bothered for the rest of the night until morning. I asked pt if he would be willing to be woken for 0600 medication, I explained that this included his duoneb and thyroid medication. Pt shook head no then closed his eyes. Pt asked for a warm blanket and the door shut. Call jung is within reach, teddy alarm set for patient safety, telemetry monitoring remains in place at this time. CLN notified of pt refusal of scheduled medication/tube feedings per orders.
[2024-08-17 07:38] LABS: Ferritin 260 ng/mL (26-388)
[2024-08-17] MEDS: Gabapentin 300 MG CAP PO ×3 (07:54→15:33)
[2024-08-17] MEDS: Omeprazole 20 MG CAPCR NG (07:54)
[2024-08-17] MEDS: rOPINIRole 1 MG TAB PO (07:54)
[2024-08-17] MEDS: Losartan 50 MG TAB PO (07:55)
[2024-08-17] MEDS: Ferrous Sulfate 325 MG TAB PO (07:55)
[2024-08-17] MEDS: levETIRAcetam 500 MG TAB PO (07:55)
[2024-08-17] MEDS: Metoprolol CR 25 MG TABCR PO (07:55)
[2024-08-17] MEDS: Sertraline 50 MG TAB 100 MG PO (07:55)
[2024-08-17] MEDS: Normal Saline Flush 10 ML SYR IVP (07:55)
[2024-08-17] MEDS: Tamsulosin 0.4 MG CAPCR PO (07:55)
[2024-08-17] MEDS: Finasteride 5 MG TAB PO (07:55)
[2024-08-17] MEDS: Levothyroxine 88 MCG TAB PO (07:59)
--- NOTE | 2024-08-17 09:19 | INITIAL_ITS ---
Date of service: 08/17/24 Time of Service: 09:19 Care Management Initial Assmt Initial Assessment Reason for Hospitalization: syncope s/p fall with head laceration Functional Status/Living Situation Patient Presentation: Pineda was admitted through the ED yesterday after falling and hitting his head. He did state that he gets dizzy often. He was lying in the bed when CM met with him today, his caregiver and partner, Kiara, was also present. Both were pleasant. Pineda was difficult to understand, as he speaks through a voice machine held to his trachea, but he is able to make his needs known. CM mentioned that PT is recommending HH PT. Pineda does not want this, but he is open to HH RN. Town of Residence: [place] Resides with: Other (life partner, Kiara) Significant Other/Family: Local (sister Dary, brother Jhonny, nephews Marino and Dimitry) Caregiver/Guardian: Kiara is Pineda's paid Claudio Caregiver through his Choices for Care program Natural Supports: Kiara Employment Status: Disabled Instrumental Activities of Daily Living (ADLs): Requires support Medications Medication Management: No Issues/Barriers identified Physical Functioning/Mobility Assistive Device: uses a walker Advance Directives Advance Directives: Do you have an Advance Directive: Y 12/11/22 13:39 AD On File at [facility]: Y 12/11/22 13:39 Date Asked 04/01/23 08/16/24 08:50 AD Date Reviewed 08/16/24 08/16/24 04:50 COLST On File at [facility] Yes 12/11/22 13:39 COLST Date Scanned 04/13/21 12/11/22 13:39 Code Status Resuscitation Status Full Code Portal Pt does not currently have a portal and education provided: Yes Insurance Coverage/Financial Issues Insurance: Medicare Part A & B AETNA Senior Supplemental Ins - Medicaid of [place] - Care Team Visit Care Team Role Provider Type Dwayne Lozada MD [facility] STAFF PHYSICIAN Nazia Chan Primary Care Provider PHYSICIANS INVESTIGATOR FRAUD Abigail Meehan RDN, [facility] Other Providers TURNTABLE ENGINEER Sammy Solorio RDN Other Providers TURNTABLE ENGINEER Alfonso Chisholm MD Emergency Provider [facility] STAFF PHYSICIAN Familia Atkins MD Admit Provider [facility] STAFF PHYSICIAN Attending Provider Discharge Potential Discharge Needs: PCP F/U Appt Anticipated Barriers to Discharge: None Identified Patient/Family Education Needs: Review discharge instructions, discuss Ask Me Three Transportation: Private vehicle (with Kiara) Plan: Anticipate that Pineda will be discharged home with new HH RN. He will f/u with his PCP, and continue to be followed by Palliative Care. Pineda will continue with Kiara as his paid Claudio caregiver, and continue per his plan of care. Pineda will transport home in a private vehicle with Kiara. CM will continue to follow and update the plan as needed. Social Determinants of Health Screening Will the Patient Participate in the Screening?: Unable to obtain PFSH All Active Problems (Updated 08/16/24 @ 16:39 by Dwayne Lozada) Recurrent syncope (Acute) Laceration of occipital region of scalp (Acute) Foreign body sensation, throat (Acute) Fall (Acute) Orthostatic hypotension (Acute) Right clavicle fracture (Acute 08/30/23) Syncope (Chronic) Ground glass opacity present on imaging of lung (Acute) Subdural hematoma (Acute) Pulmonary edema (Acute) Fracture of thumb, left, closed (Acute) Acute non-ST elevation myocardial infarction (NSTEMI) (Acute) Arm pain (Acute) Palliative care patient (Acute) Hemoptysis (Acute) Caregiver stress (Acute) Nausea & vomiting (Acute) Regurgitation of food (Acute) Pulmonary embolism (Chronic) Uses feeding tube (Acute) Gross hematuria (Acute) Ambulatory dysfunction (Acute) Leukocytosis (leucocytosis) (Acute) UTI (urinary tract infection) (Acute) Multiple subsegmental pulmonary emboli without acute cor pulmonale (Acute) C1 cervical fracture (Acute) Gastrostomy tube dysfunction (Acute) Advance care planning (Acute) Encounter for hospice care discussion (Acute) Unintentional weight loss of 10% body weight within 6 months (Acute) Dysuria (Acute) Malfunctioning jejunostomy tube (Acute) Need for follow-up by social secretary (Acute) Dysphagia (Acute) Weakness (Acute) Impaired instrumental activities of daily living (Acute) Plantar fascial fibromatosis (Acute) Feeding tube dysfunction (Acute) Sensorineural hearing loss (SNHL) of both ears (Acute) Otalgia of right ear (Acute) Neck pain on right side (Acute) Neck pain on right side (Acute) Full code status (Acute) Need for home health care (Acute) MRSA pneumonia (Acute) pt likely colonized Occlusion of right vertebral artery (Acute) Hypoxemia (Acute) Complication of feeding tube (Acute) Peripheral neuropathy (Acute 02/21/15) PAOD (peripheral arterial occlusive disease) (Acute) Laryngeal cancer (Acute) COPD (chronic obstructive pulmonary disease) (Chronic) G tube feedings (Acute) 20F 3.0cm 11/30/22. Routine change every 4 months. 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 Hypertension Tobacco use COPD (chronic obstructive pulmonary disease) Post herpetic neuralgia Hypothyroidism Hyperlipemia Depression Anxiety Anemia Conjunctivitis, chronic Surgical History S/P AAA (abdominal aortic aneurysm) repair Status post laryngectomy History of esophagogastroduodenoscopy (EGD) (~08/10/19) Daron [place] [facility] [place], GERD, Reyes's esophagitis, neuromuscular dysfunction History of laryngectomy Status post cardiac catheterization Status post cataract extraction and insertion of intraocular lens of right eye (07/12/18) History of tarsorrhaphy Status post cataract extraction and insertion of intraocular lens of left eye (04/30/12) 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) Sin-mullins button placed by Dr Elia Mcdonald, [facility] PROCEDURES RT/LEFT HEART CARD CATH COMPLETE LARYNGECTOMY Esophagoplasty EGD - MAC (07/06/17) Colonoscopy - MAC (12/22/16) History of radical laryngectomy Family History Nephew Throat cancer Maternal Cousin Cancer Social History Smoking/Tobacco Use Status: Former Tobacco Use Quit Date: 04/23/13 Tobacco: How many years used: 20 Smoking risk assessment performed?: Yes Alcohol Intake: never Drug use: Never Substance use type: does not use Housing: house Current gender identity: male Do you feel safe at home: Yes Do you feel safe in your relationship?: Yes Readmission Within the Past 30 Days Yes or No: No Anticipated HH Services Anticipated HH Services at Discharge [facility] Needed, RN Following Provider: Rocio.
--- NOTE | 2024-08-17 10:56 | IN_ITS ---
PT Notes Visit Reasons: Syncope Inpatient Physical Therapy Evaluation Date: 08/17/2024 Referring Doctor: Juliann Bacon PT Orders: PT CONSULT: safety Consult for d/c Precautions: NPO, PEG Tube, oxygen 4L/Min via trach collar Patient Profile/Admitting Diagnosis: Patient is 79-year-old male who presented to ED s/p fall w/syncopal episode and head strike, acute bleed/fracture r/o; admitted for ongoing management of orthostatic hypotension; remains w/orthostatic hypotensive episodes, losartan dose reduced, amlodipine on hold; tolerated IVF appropriately, MD reports likely dehydration contributing to hypotensive episodes. PMHX: Recurrent syncope (Acute) Laceration of occipital region of scalp (Acute) Foreign body sensation, throat (Acute) Fall (Acute) Orthostatic hypotension (Acute) Right clavicle fracture (Acute 08/30/23) Syncope (Chronic) Ground glass opacity present on imaging of lung (Acute) Subdural hematoma (Acute) Pulmonary edema (Acute) Fracture of thumb, left, closed (Acute) Acute non-ST elevation myocardial infarction (NSTEMI) (Acute) Arm pain (Acute) Palliative care patient (Acute) Hemoptysis (Acute) Caregiver stress (Acute) Nausea & vomiting (Acute) Regurgitation of food (Acute) Pulmonary embolism (Chronic) Uses feeding tube (Acute) Gross hematuria (Acute) Ambulatory dysfunction (Acute) Leukocytosis (leucocytosis) (Acute) UTI (urinary tract infection) (Acute) Multiple subsegmental pulmonary emboli without acute cor pulmonale (Acute) C1 cervical fracture (Acute) Gastrostomy tube dysfunction (Acute) Advance care planning (Acute) Encounter for hospice care discussion (Acute) Unintentional weight loss of 10% body weight within 6 months (Acute) Dysuria (Acute) Malfunctioning jejunostomy tube (Acute) Need for follow-up by social sciences chair (Acute) Dysphagia (Acute) Weakness (Acute) Impaired instrumental activities of daily living (Acute) Plantar fascial fibromatosis (Acute) Feeding tube dysfunction (Acute) Sensorineural hearing loss (SNHL) of both ears (Acute) Otalgia of right ear (Acute) Neck pain on right side (Acute) Neck pain on right side (Acute) Full code status (Acute) Need for home health care (Acute) MRSA pneumonia (Acute)pt likely colonized Occlusion of right vertebral artery (Acute) Hypoxemia (Acute) Complication of feeding tube (Acute) G tube feedings (Acute) 20F 3.0cm 11/30/22.Routine change every 4 months. Compression fracture of thoracolumbar vertebra (Acute) PAOD (peripheral arterial occlusive disease) (Acute) Dependence on supplemental oxygen (Chronic) COPD (chronic obstructive pulmonary disease) (Chronic) Peripheral neuropathy (Acute 02/21/15) Laryngeal cancer (Acute) 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 (Acute) Medical History History of laryngeal cancer Chronic respiratory failure with hypoxia Pneumonia Shortness of breath Complication of feeding tube Hematoma following procedure Blockage of feeding tube Dyspnea on exertion Neurotrophic cornea of left eye Left corneal scar with opacity Cortical cataract of right eye Nuclear sclerotic cataract of right eye Posterior subcapsular age-related cataract, right eye Feeding tube dysfunction CAD (coronary artery disease) Sessile colonic polyp 12/22/16-SESSILE SERRATED ADENOMA Restless leg syndrome (02/21/15) Pulmonary nodule, right (05/30/15) on chest CT -2015: stable Primary malignant neoplasm of oropharynx ; yearly fup in Feb (last ) [facility] [place] ROR: 2000 + 2008 Impingement syndrome, shoulder, left (10/10/16) -2017: PT sugg. 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 Hypertension Tobacco use COPD (chronic obstructive pulmonary disease) Post herpetic neuralgia Hypothyroidism Hyperlipemia Depression Anxiety Anemia Conjunctivitis, chronic Surgical History S/P AAA (abdominal aortic aneurysm) repair Status post laryngectomy History of esophagogastroduodenoscopy (EGD) (~08/10/19) Daron Casper APRN @ [facility] [place]: hiatal hernia, GERD, Reyes's esophagitis, neuromuscular dysfunctionHistory of laryngectomy Status post cardiac catheterization Status post cataract extraction and insertion of intraocular lens of right eye (07/12/18) History of tarsorrhaphy Status post cataract extraction and insertion of intraocular lens of left eye (04/30/12) 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 . Pt reports Kiara assists him at home.and drives to appointments. He states he does not use oxygen from the time he leaves the car to the time he gets up all the stairs . Equipment Owned/DME: FWW oxygen, tube feeding Subjective: Pt reports he is going home today and he does not want to do any stairs before he goes. He was educated on recommendation for HHPT and lift assist to access home however he declines both. He states he wants to spend his final hours in his home with his long time partner Kiara. He states she is able to help him and knows what to do. Objective: General Observation: frail thin elderly male upright in bed, Mental Status: A+OX4, pt able to communicate with use of electrolarynx d/t laryngeal CA. Pt agreeable to evaluation Pain: denies Vital Signs: supine 92/66 sit: 87/63, stand 63/45 (Nurse present and PRINT TRAFFIC MANAGER notified) pt denies s/s of orhtostatic Oxygen at 4L/Min FiO2 28 trach collar sats 92% ROM: Right Upper Extremity: WFL Left Upper Extremity: WFL Right Lower Extremity: WFL Left Lower Extremity: WFL Strength: BUE: >/= to 3/5 Right Lower Extremity: grossly 3/5 Left Lower Extremity:grossly 3/5 Sensation: intact Bed Mobility/Transfers: [] supine with HOB at 30* CGA sit to stand CGA stand to sit SBA Gait: amb with FWW CGA 30 feet reciprocal pattern Balance: [] Static Sitting: Normal Dynamic Sitting: Fair Static Standing: Good Dynamic Standing: Fair+ Special Tests: Mobility Limitations Standardized Measure [facility] AM-PAC 6 clicks Basic Mobility Inpatient Short Form: Raw Score: 17 CMS Score: 50.57% Informed Consent/Education: Patient instructed in purpose of PT consult and plan of care. Assessment: Patient is a 79 year old male referred to physical therapy services with the diagnosis of syncope. Patient presents with clinical signs and symptoms consistent with hypotension, as demonstrated by the following impairment level findings: 1. impaired strength BUE/BLE major muscle groups 2. impaired standing balance 3. impaired activity tolerance 4. oxygen dependent Impairments are contributing to the following functional limitations: 1. AMPAC score. 2. decline in transfer skills 3. Difficulty ambulating without assistive device and physical assistance 4. increased time to complete ADL/ mobility tasks 5. difficulty managing stairs alone safely Pt is declining to remain in the hospital. He is declining HHPT but is accepting HH Nurse. He will receive IV Fluids prior to discharge d/t low BPs per PRINT TRAFFIC MANAGER and Nurse. He is declining lift assist into the home. Patient is assessed as a Moderate 13993 complexity based on the following: History: pt is 79 yo female with past medical history as indicated above Examination: demonstrates impairments in strength, balance, and mobility level with underlying impairments and functional limitations as exhibited above Presentation: evolving Decision Making:moderate Goals: NA as pt is insisting on discharge to home today. Plan of Care/Treatment Plan: NA discharging to home DISCHARGE RECOMMENDATIONS: [] [] Home with no services [] [X] Home with services PT [] Home with outpatient PT [] [] SNF for continued rehabilitation [] [] [facility] [] [] SNF versus LTC based on ability to participate and progress [] TREATMENT CODE/TIME: 88899, 26105/ [id number]
[2024-08-17] MEDS: Lactated Ringers 1,000 ML 1000 ML IV (12:22)
[2024-08-17] MEDS: Albuterol/Ipratropium 3 ML UPD VIAL UPD ×2 (13:23→18:13)
[2024-08-17] MEDS: Enoxaparin 40 MG/0.4 ML SYR SC (13:54)
[2024-08-17] MEDS: Nystatin POWDER 15 GM JAR TP (13:54)
--- NOTE | 2024-08-17 15:07 | DSE_ITS ---
Date of service: 08/17/24 Time of Service: 15:08 DS: Diagnosis Discharge Diagnosis (1) Recurrent syncope: (2) Hypertension: (3) G tube feedings: Status: Acute (4) COPD (chronic obstructive pulmonary disease): Status: Chronic (5) Palliative care patient: Status: Acute (6) Anemia: Status: Inactive Discharge Plan Disposition Patient Disposition: Home W/Home Health Services Condition: Improving Discharge Details Reason For Visit: Syncope Admit Date/Time: 08/16/24 03:49 Admit Provider: Familia Atkins Attending Provider: Familia Atkins Primary Care Provider: Nazia Chan [facility] Course Hospital Course: This 74 years old healthy-appearing patient with a past medical history of laryngeal cancer status post laryngectomy, oxygen dependent on 6 L at home via trach mask for chronic respiratory failure, bilateral subdural hematomas, COPD, feeding tube, hypothyroidism, hypertension, hyperlipidemia remote history of EtOH use disorder presented to the ED on 08/16/2024 for evaluation of syncope with falling backward and hitting his head causing right posterior scalp laceration and hematoma. Patient reported feeling weak over the past 2 weeks and adding had intermittent syncopal episode over the past few months in addition to increased cough and difficulty breathing over the past few days. Workup in the ED was significant for a negative new findings on his head CT only showing again bilateral subdural hematoma without significant change on the right and slight increase in size on the left when compared to imaging on 06/11/2024 but without new prominent mass effect nor significant new shift of midline structures. No acute evidence of cervical spinal fracture on plain CT reported. The patient was admitted by the hospitalist team for further evaluation. During the stay, the patient remained presently AV block heart rate significant for without ectopy on telemetry. Blood pressure medicine were adjusted due to lower systolic pressure and positive orthostasis after morning meds. Status post discussion with pharmacy Requip was also adjusted due to high risk of causing orthostatic hypotension 1 dose of midodrine was administered with improvement. The patient would benefit from further adjustment to his finasteride and tamsulosin as well as lower dose of gabapentin as an outpatient as per PCP with recurrence of syncopal episodes . Echocardiogram showed LVEF of 55% with normal function and questionable disorder wall dyskinesia which might be due to imaging plain. Aortic valve area please at 1.6 mm? pink gradient at 9.7 mmHg; there is trace aortic regurgitation. IVC was not plethoric and collapsing over 50%. The patient was a follow-up outpatient with cardiology. The patient received 1 L of IV fluid with improvement of blood pressures. The patient will have to follow-up with his primary care practitioner within 7 days of discharge and will need a referral to cardiology to follow-up on echocardiogram findings and further cardiac medicine adjustment. Home health physical therapy was recommended the patient refused but would like to get home health nursing. The patient will continue to follow palliative care as an outpatient. No change in tube feeding regimen admission and patient to continue on home tube feeding regimen. Discussed with Dr. Lozada Home Meds and New Rx's Prescriptions: New losartan 50 mg Tablet 25 mg PO DAILY Qty: 15 0RF Continued acetaminophen [Tylenol Extra Strength] 500 mg tablet 1,000 mg PO BID PRN tamsulosin [Flomax] 0.4 mg capsule 0.4 mg PO DAILY Qty: 90 3RF finasteride 5 mg tablet 5 mg PO DAILY Qty: 90 3RF gabapentin 300 mg capsule 300 mg PO QID Qty: 360 3RF omeprazole 20 mg capsule,delayed release(DR/EC) 20 mg feeding tube BID Qty: 90 4RF acetylcysteine 100 mg/mL (10 %) solution 4 ml inhalation BID metoprolol succinate 25 mg tablet extended release 24 hr 25 mg PO DAILY rosuvastatin 40 mg tablet 40 mg feeding tube HS Qty: 90 4RF polyethylene glycol 3350 [Miralax] 17 gram/dose powder 17 g PO DAILY PRN (Reason: constipation) Rx Instructions: 06/19/22 instructed by PCP to take 1/2 cap daily, may reduce to half cap three times per week if daily is too much nystatin 100,000 unit/gram powder 1 applic topical BID Qty: 60 12RF sulfamethoxazole-trimethoprim 200-40 mg/5 mL suspension 5 ml PO BID 28 Days Qty: 280 6RF acetylcysteine 600 mg capsule See Rx Instructions .ROUTE .COMPLEX Qty: 60 12RF Dose Instruction: TAKE ONE CAPSULE BY MOUTH TWICE A DAY Rx Instructions: TAKE ONE CAPSULE BY MOUTH TWICE A DAY melatonin 3 MG tablet 3 mg PO HS levetiracetam 500 mg tablet 500 mg PO BID Patient Comments: TAKE ONE TABLET BY MOUTH TWICE A DAY losartan 50 mg tablet 50 mg PO DAILY Patient Comments: TAKE ONE TABLET BY MOUTH EVERY DAY ipratropium-albuterol 0.5 mg-3 mg(2.5 mg base)/3 mL solution for nebulization 3 ml IN BID Rx Instructions: increased dose/use treatment 4 times/day as needed NOT SENT levothyroxine 88 mcg tablet 88 mcg PO DAILY Patient Comments: TAKE ONE TABLET BY MOUTH EVERY DAY sertraline 100 mg tablet 100 mg PO DAILY Patient Comments: TAKE ONE TABLET BY MOUTH EVERY DAY ferrous sulfate [Feosol] 325 mg (65 mg iron) tablet 325 mg PO DAILY Align Jr 10.5 mg (10 million cell) tablet,chewable 10.5 mg PO DAILY Changed ropinirole 1 mg tablet 0.5 mg PO BID Qty: 0 0RF Discharge Instructions Stand Alone Forms: Nursing Discharge Form Referrals: Nazia Chan [Primary Care Provider] - (Follow-up with PCP within 7 days of discharge Please call your PCP to set up an appointment) Activity:: Activity as Tolerated Equipment/Supplies:: No Equipment Needed Diet:: heart healthy Discharge Orders Discharge Orders: Discharge Order (Routine); Ordered 08/17/24 Ordered By: Juliann Bacon Discharge Data Discharge Date/Time-TO BE ENTERED AT DEPARTURE: 08/17/24 20:05 DS: Summary Time Spent with Patient providing and/or coordinating discharge services: Greater than 30 minutes Status at Discharge Functional status at discharge: uses cane/walker Overall status at discharge: patient is progressing back to baseline Mental Status: mental status grossly normal Speech and Movement: speech and movement normal Mood: congruent mood Affect: normal affect Quality:SDOH Health Related Social Needs: No Data to Display Exam Narrative Exam Narrative: 71 years old male patient appearing older than stated age, alert oriented x 4 without acute distress, no neurodeficit, unlabored breathing clear lungs?tracheostomy stoma within normal limits, first-degree AV block on telemetry heart rate 62-74, S1-S2 regular, positive pulses to all extremities, a bdomen no acute, no CVA tenderness Psych Mental Status: mental status grossly normal Speech and Movement: speech and movement normal Mood: congruent mood Affect: normal affect DS: Data Vitals/I&O Vitals and I&O: Vital Signs Temperature 37.0 C 08/17/24 14:44 Temperature Source Temporal Artery Scan 08/17/24 14:44 Pulse 87 08/17/24 14:44 Pulse 87 08/16/24 16:01 Respiratory Rate 14 08/17/24 14:44 Respiratory Effort Normal 08/16/24 09:03 Respiratory Depth Deep 08/16/24 09:03 Respiratory Pattern Normal 08/16/24 09:03 Blood Pressure 87/48 L 08/17/24 14:44 Blood Pressure Mean 66 08/16/24 16:01 Blood Pressure Position Supine 08/15/24 23:47 Pulse Oximetry 92 08/17/24 13:23 Oxygen Delivery Method Trach Collar 08/17/24 14:44 Oxygen Flow Rate 4 08/17/24 13:23 Fraction of Inspired Oxygen (FIO2) 28 08/17/24 13:23 Pain Level 0 08/16/24 15:30 Comment RN aware of BP 08/17/24 14:44 Comment 6L 08/16/24 06:20 Intake & Output 08/16/24 08/17/24 08/17/24 23:59 11:59 23:59 Intake Total 20 / 20 Output Total 275 / 475 600 / 600 Balance -255 / -455 -600 / -600 Intake: IV Oral Output: Urine 275 / 475 600 / 600 Other: Urine Color Yellow Yellow Urine Appearance Clear Clear Urine Odor Strong None Stool Size Moderate Stool Characteristics Soft Black Data Completed and Pending Labs on day of discharge: Labs from last 24 hours 08/17/24 06:25 Ferritin 260 Preliminary micro results at discharge 08/16/24 02:18 Urine Culture - Preliminary Urine - Reflex from Ua Gram positive vidhi, mixed PFSH All Active Problems (Updated 08/18/24 @ 00:03 by AMI MENDEZ) Laceration of occipital region of scalp (Acute) Foreign body sensation, throat (Acute) Right clavicle fracture (Acute 08/30/23) Syncope (Chronic) Ground glass opacity present on imaging of lung (Acute) Subdural hematoma (Acute) Pulmonary edema (Acute) Fracture of thumb, left, closed (Acute) Acute non-ST elevation myocardial infarction (NSTEMI) (Acute) Arm pain (Acute) Palliative care patient (Acute) Hemoptysis (Acute) Nausea & vomiting (Acute) Regurgitation of food (Acute) Pulmonary embolism (Chronic) Uses feeding tube (Acute) Gross hematuria (Acute) Ambulatory dysfunction (Acute) Leukocytosis (leucocytosis) (Acute) UTI (urinary tract infection) (Acute) Multiple subsegmental pulmonary emboli without acute cor pulmonale (Acute) C1 cervical fracture (Acute) Gastrostomy tube dysfunction (Acute) Encounter for hospice care discussion (Acute) Unintentional weight loss of 10% body weight within 6 months (Acute) Dysuria (Acute) Malfunctioning jejunostomy tube (Acute) Need for follow-up by licensed clinical social worker (Acute) Dysphagia (Acute) Impaired instrumental activities of daily living (Acute) Plantar fascial fibromatosis (Acute) Feeding tube dysfunction (Acute) Sensorineural hearing loss (SNHL) of both ears (Acute) Otalgia of right ear (Acute) Neck pain on right side (Acute) Neck pain on right side (Acute) Full code status (Acute) Need for home health care (Acute) MRSA pneumonia (Acute) pt likely colonized Occlusion of right vertebral artery (Acute) Hypoxemia (Acute) Complication of feeding tube (Acute) Peripheral neuropathy (Acute 02/21/15) PAOD (peripheral arterial occlusive disease) (Acute) Laryngeal cancer (Acute) COPD (chronic obstructive pulmonary disease) (Chronic) G tube feedings (Acute) 20F 3.0cm 11/30/22. Routine change every 4 months. 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 Hypertension Tobacco use COPD (chronic obstructive pulmonary disease) Post herpetic neuralgia Hypothyroidism Hyperlipemia Depression Anxiety Anemia Conjunctivitis, chronic Surgical History S/P AAA (abdominal aortic aneurysm) repair Status post laryngectomy History of esophagogastroduodenoscopy (EGD) (~08/10/19) [place] [facility] [place], GERD, Reyes's esophagitis, neuromuscular dysfunction History of laryngectomy Status post cardiac catheterization Status post cataract extraction and insertion of intraocular lens of right eye (07/12/18) History of tarsorrhaphy Status post cataract extraction and insertion of intraocular lens of left eye (04/30/12) 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) Sin-mullins button placed by Dr Elia Mcdonald, [facility] PROCEDURES RT/LEFT HEART CARD CATH COMPLETE LARYNGECTOMY Esophagoplasty EGD - MAC (07/06/17) Colonoscopy - MAC (12/22/16) History of radical laryngectomy Family History Nephew Throat cancer Maternal Cousin Cancer Social History Smoking/Tobacco Use Status: Former Tobacco Use Quit Date: 04/23/13 Tobacco: How many years used: 20 Smoking risk assessment performed?: Yes Alcohol Intake: never Drug use: Never Substance use type: does not use Housing: house Current gender identity: male Do you feel safe at home: Yes Do you feel safe in your relationship?: Yes Time Spent with Patient Time Spent with Patient: 70-84 minutes4 Time was spent: preparing to see the patient(eg.review tests), obtaining and/or reviewing separately otained hiistory, ordering medications,tests, procedures, referring, communicating with other health director of health care marketing, indepentently interpreting results, counseling the patient and care coordination
[2024-08-17] MEDS: Midodrine 2.5 MG TAB PO (15:33)
--- NOTE | 2024-08-17 16:27 | PCNE_ITS ---
Date of service: 08/17/24 Time of Service: 15:15 History of Present Illness Narrative: Mr. Sung is a 79 y/o M est PC pt currently hospitalized at [facility] 2/2 syncopal episodes and fall; PMHx sig of laryngeal cancer s/p tacheostomy and PEG tube, as well as h/o COPD, chronic hypoxic respiratory failure on 6L of O2 via trach collar, mucuous plugging requiring bronchoscopy in the past, as well as h/o MRSA colonization, AAA s/p [facility] Hospital Course: presented to ED s/p fall w/syncopal episode and head strike, acute bleed/fracture r/o; admitted for ongoing management of orthostatic hypotension; remains w/orthostatic hypotensive episodes, losartan dose reduced, amlodipine on hold; tolerated IVF appropriately, feeling like dehydration contributing to hypotensive episodes; trial of midodrine s/p PC visit, if good effect will discharge today; Pineda would like to return home as soon as possible Pineda continues to have low oral intake of water in home, Kiara is encourage of him to increase his oral intake of water, has tried monitoring it and measuring it out for him, he still doesn't drink. it was previously reviewed with her to trial increasing his GT flushes w/incresaed bolus of water, from 30mL to higher like 60mL or more frequently to increase water intake, avoid dehydration, to date she does not have the capacity to do more. he is not bothered by his low water intake, he does not want to change what he is doing. it is hard for them to get out of the house, avoiding unnecessary trips to anywhere is preferred to date Pineda has continued to want all treatment to keep him alive, as long as possible, as long as he can be Pineda. They feel this is true today. even though dehydration may be contributing to his increased falls/syncopal episodes, he does not want to change his oral intake, he is open minded to receiving IVF in an outpatient setting, IF Kiara is Assessment and Plan Assessment and plan (1) Recurrent syncope: Status: Acute Assessment and plan: previously resolved w/adjustments to home BP meds; trial midodrine post PC visit today losartan dose reduced (2) Laceration of occipital region of scalp: Status: Acute Assessment and plan: s/p fall (3) Fall: Status: Acute Assessment and plan: high fall risk, falls frequently (4) Orthostatic hypotension: Status: Acute Assessment and plan: reviewed orthostatic hypotension, treatment w/reducing BP meds, trial of midodrine post visit reviewed low hydration contributing to low BPs (5) Palliative care patient: Status: Acute Assessment and plan: PC continue to follow in outpatient setting, f/u previously scheduled, will f/u w/TH sooner (6) Caregiver stress: Status: Acute Assessment and plan: To date Kiara has not wanted additional home supports; she does raise concerns w/ability to bring him in for outpatient IVF if recommended d/t hardship of transportation effort, etc homehealth recommended at discharge, RN/PT, they deferred PT at this time (7) Uses feeding tube: Status: Acute Assessment and plan: dependent on Kiara for administration (8) Impaired instrumental activities of daily living: Status: Acute Assessment and plan: Kiara providing full support (9) Full code status: Status: Acute Assessment and plan: remains full code (10) Need for home health care: Status: Acute Assessment and plan: HH referral recommended at discharge (11) 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: Status: Acute Assessment and plan: unable to tolerate enough oral intake for appropriate hydration (12) Advance care planning: Status: Acute Assessment and plan: reviewed consideration of scheduled outpatient IVF is sometimes recommended for folks having difficulty maintaining hydration; they will consider this option, would want to avoid increased frequency w/this d/t concerns w/difficulty leaving home; reviewed how maintaining hydration, as means of potentially avoiding syncopal episodes/dehydration, to avoid falls/injury which would contribute to further decline aligns w/goals for all life sustaining treatment and staying alive as long as possible - would defer to PCP for managing this, will forward note to them, encouraged they follow up w/PCP as well reviewed and confirmed code status and current LST preferences Review of Systems Narrative: as per HPI PFSH All Active Problems Recurrent syncope (Acute) Laceration of occipital region of scalp (Acute) Foreign body sensation, throat (Acute) Fall (Acute) Orthostatic hypotension (Acute) Right clavicle fracture (Acute 08/30/23) Syncope (Chronic) Ground glass opacity present on imaging of lung (Acute) Subdural hematoma (Acute) Pulmonary edema (Acute) Fracture of thumb, left, closed (Acute) Acute non-ST elevation myocardial infarction (NSTEMI) (Acute) Arm pain (Acute) Palliative care patient (Acute) Hemoptysis (Acute) Caregiver stress (Acute) Nausea & vomiting (Acute) Regurgitation of food (Acute) Pulmonary embolism (Chronic) Uses feeding tube (Acute) Gross hematuria (Acute) Ambulatory dysfunction (Acute) Leukocytosis (leucocytosis) (Acute) UTI (urinary tract infection) (Acute) Multiple subsegmental pulmonary emboli without acute cor pulmonale (Acute) C1 cervical fracture (Acute) Gastrostomy tube dysfunction (Acute) Advance care planning (Acute) Encounter for hospice care discussion (Acute) Unintentional weight loss of 10% body weight within 6 months (Acute) Dysuria (Acute) Malfunctioning jejunostomy tube (Acute) Need for follow-up by social work administrator (Acute) Dysphagia (Acute) Weakness (Acute) Impaired instrumental activities of daily living (Acute) Plantar fascial fibromatosis (Acute) Feeding tube dysfunction (Acute) Sensorineural hearing loss (SNHL) of both ears (Acute) Otalgia of right ear (Acute) Neck pain on right side (Acute) Neck pain on right side (Acute) Full code status (Acute) Need for home health care (Acute) MRSA pneumonia (Acute) pt likely colonized Occlusion of right vertebral artery (Acute) Hypoxemia (Acute) Complication of feeding tube (Acute) Peripheral neuropathy (Acute 02/21/15) PAOD (peripheral arterial occlusive disease) (Acute) Laryngeal cancer (Acute) COPD (chronic obstructive pulmonary disease) (Chronic) G tube feedings (Acute) 20F 3.0cm 11/30/22. Routine change every 4 months. 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 (Acute) Compression fracture of thoracolumbar vertebra (Acute) Dependence on supplemental oxygen (Chronic) Medical History History of laryngeal cancer Chronic respiratory failure with hypoxia Pneumonia Shortness of breath Complication of feeding tube Hematoma following procedure Blockage of feeding tube Dyspnea on exertion Neurotrophic cornea of left eye Left corneal scar with opacity Cortical cataract of right eye Nuclear sclerotic cataract of right eye Posterior subcapsular age-related cataract, right eye Feeding tube dysfunction CAD (coronary artery disease) Sessile colonic polyp 12/22/16-SESSILE SERRATED ADENOMA Restless leg syndrome (02/21/15) Pulmonary nodule, right (05/30/15) on chest CT -2015: stable Primary malignant neoplasm of oropharynx ; yearly fup in Feb (last ) [facility] [place]: 2007 ROR: 2000 + 2007 Impingement syndrome, shoulder, left (10/10/16) -2017: PT sugg. 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 Hypertension Tobacco use COPD (chronic obstructive pulmonary disease) Post herpetic neuralgia Hypothyroidism Hyperlipemia Depression Anxiety Anemia Conjunctivitis, chronic Surgical History S/P AAA (abdominal aortic aneurysm) repair Status post laryngectomy History of esophagogastroduodenoscopy (EGD) (~08/10/19) Daron Casper APRN @ [facility] [place]: hiatal hernia, GERD, Reyes's esophagitis, neuromuscular dysfunction History of laryngectomy Status post cardiac catheterization Status post cataract extraction and insertion of intraocular lens of right eye (07/12/18) History of tarsorrhaphy Status post cataract extraction and insertion of intraocular lens of left eye (04/30/12) 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) Sin-mullins button placed by Dr Elia Mcdonald, [facility] PROCEDURES RT/LEFT HEART CARD CATH COMPLETE LARYNGECTOMY Esophagoplasty EGD - MAC (07/06/17) Colonoscopy - MAC (12/22/16) History of radical laryngectomy Family History Nephew Throat cancer Maternal Cousin Cancer Social History Smoking/Tobacco Use Status: Former Tobacco Use Quit Date: 04/23/13 Tobacco: How many years used: 20 Smoking risk assessment performed?: Yes Alcohol Intake: never Drug use: Never Substance use type: does not use Housing: house Current gender identity: male Do you feel safe at home: Yes Do you feel safe in your relationship?: Yes Exam Narrative Exam Narrative: General: older adult male, lying in hospital bed; chronically ill appearing, thin HEENT: tracheostomy stoma WNL, hearing grossly WNL; uses laryngectomy voice machine w/full sentences Resp: speaks full sentences, no SOB; O2 mask over stoma Psych: insight/judgment limited; MS grossly WNL, thought process congruent; pleasant, cooperative Results Last Vital Signs Temp 98.6 F 08/17/24 14:44 Pulse 87 08/17/24 14:44 Resp 14 08/17/24 14:44 BP 87/48 L 08/17/24 14:44 Pulse Ox 92 08/17/24 13:23 Labs 08/16/24 00:23 08/16/24 00:23 Labs: Laboratory Results - last 24 hr 08/17/24 06:25 Ferritin 260 Time Spent Time Spent with Patient Time Spent(min): 45
--- NOTE | 2024-08-17 19:35 | PDOC.HHF2F_ITS ---
Home Health Referral Home Health Orders Clinical synopsis of why skilled professionals are needed: Jese Humphreys were done with the discharge on Mr. Nevarez This 74 years old healthy-appearing patient with a past medical history of laryngeal cancer status post laryngectomy, oxygen dependent on 6 L at home via trach mask for chronic respiratory failure, bilateral subdural hematomas, COPD, feeding tube, hypothyroidism, hypertension, hyperlipidemia remote history of EtOH use disorder presented to the ED on 08/16/2024 for evaluation of syncope with falling backward and hitting his head causing right posterior scalp laceration and hematoma. Patient reported feeling weak over the past 2 weeks and adding had intermittent syncopal episode over the past few months in addition to increased cough and difficulty breathing over the past few days. Workup in the ED was significant for a negative new findings on his head CT only showing again bilateral subdural hematoma w/ significant increase on the right and slight increased in size on the left when compared to imaging on 06/11/2024 but without new prominent mass effect nor significant new shift of midline structures. No acute evidence of cervical spinal fracture on plain CT reported. The patient was admitted by the hospitalist team for further evaluation. During the stay, the patient remained presently AV block heart rate significant for without ectopy on telemetry. Blood pressure medicine were adjusted due to lower systolic pressure and positive orthostasis after morning meds. Status post discussion with pharmacy Requip was also adjusted due to high risk of causing orthostatic hypotension 1 dose of midodrine was administered with improvement. The patient would benefit from further adjustment to his finasteride and tamsulosin as well as lower dose of gabapentin as an outpatient as per PCP with recurrence of syncopal episodes . Echocardiogram showed LVEF of 55% with normal function and questionable disorder wall dyskinesia which might be due to imaging plain. Aortic valve area please at 1.6 mm? pink gradient at 9.7 mmHg; there is trace aortic regurgitation. IVC was not plethoric and collapsing over 50%. The patient was a follow-up outpatient with cardiology. The patient received 1 L of IV fluid with improvement of blood pressures. The patient will have to follow-up with his primary care practitioner within 7 days of discharge and will need a referral to cardiology to follow-up on echocardiogram findings and further cardiac medicine adjustment. Home health physical therapy was recommended the patient refused but would like to get home health nursing. The patient will continue to follow palliative care as an outpatient.No change in tube feeding regimen admission and patient to continue on home tube feeding regimen. Discussed with Dr. Lozada Registered Nurse: Check all that apply Instruct on new or changed medication(s)/assess compliance: Ordered (Decreased doses of losartan and requip) Instruct on ostomy care: Ordered Assess for exacerbation of medical condition, instruct patient/caregivers on signs and symptoms to report for early detection: Ordered Home Bound Status Requires the aid of supportive device (check all that apply): Cane and Walker Describe why leaving home would require a considerable and taxing effort: Oxygen and Other (New medication regimen) Encounter Date and Reason: I certify that a FTF encounter for this patient was performed on August 17, 2024 and that such encounter was related to the primary reason the patient requires home health services. The encounter was conducted in the following manner: * By me as the certifying physician, EXPANDED DUTY DENTAL ASSISTANT, PA or * By an inpatient physician, EXPANDED DUTY DENTAL ASSISTANT or PA during an inpatient stay who communicated findings to me, Certification And Authentication I certify that I composed the above information based on my clinical judgment relating to this patient's medical condition and, if applicable, clinical findings communicated to me by the NPP or inpatient physician who performed the FTF encounter. Name of Provider that will be monitoring home health services: Nazia Chan
--- NOTE | 2024-08-18 14:36 | CMACTNOTE_ITS ---
Date of service: 08/18/24 Time of Service: 14:36 Care Management Activity Note Activity Note Text Activity Note Text: H&P, labs and D/C summary faxed to [facility] at [phone]
== END 2024-08-17 20:05 | disposition home health service (06) | DRG 312 ==
LOC: ER 08-16 04:50 → ICU 08-16 08:50 → MS 08-16 17:49
PROVIDERS: Family Medicine; Admitting Provider Emergency Medicine; Emergency Provider Emergency Medicine Emergency Medical Services; PCP Physician Assistant Medical; Responsible Provider Nurse Practitioner Acute Care; Visit Provider Emergency Medicine
DX: I95.1 Orthostatic hypotension (principal); I62.03 Nontraumatic chronic subdural hemorrhage; J96.10 Chronic respiratory failure, unspecified whether with hypoxia or hypercapnia; I10 Essential (primary) hypertension; J44.9 Chronic obstructive pulmonary disease, unspecified; S01.01XA Laceration without foreign body of scalp, initial encounter; W18.39XA Other fall on same level, initial encounter; I25.10 Atherosclerotic heart disease of native coronary artery without angina pectoris; E03.9 Hypothyroidism, unspecified; D64.9 Anemia, unspecified; E78.5 Hyperlipidemia, unspecified; H90.3 Sensorineural hearing loss, bilateral; Z93.1 Gastrostomy status; F10.21 Alcohol dependence, in remission; I25.2 Old myocardial infarction; Z86.711 Personal history of pulmonary embolism; Z90.02 Acquired absence of larynx; Z85.21 Personal history of malignant neoplasm of larynx; Z99.81 Dependence on supplemental oxygen; Z79.899 Other long term (current) drug therapy
CPT/HCPCS: 00123; 12032; 36415; 80053; 87637; 93005; 97162; 97530; 99285; J1650; 70450; 71045; 72125; 81003; 81015; 82728; 83605; 84484; 85025; 85610; 85730; 87086; 93010; 93306; 94640; 99223; 99239; J2004; J7620

== ENCOUNTER 2024-08-27 20:41 | Emergency (ER) | payer MEDICARE, MEDICAID, SELFPAY ==
[2024-08-27] VITALS (43 sets, daily range): BP systolic 50–168; BP diastolic 28–148; PULSE 53–113; RESP 2–37; TEMP 37.8–37.9; O2SAT 78–100
--- NOTE | 2024-08-27 20:45 | RT.EKG_ITS ---
APPROVED REPORT Exam: Resting ECG Reason for Exam: sob Patient Location: E HR:94 bpm ECG Measurements Heart Rate 94 AXIS DE 194 P 56 QRSd 93 QRS 108 QT 386 T 7 QTc 483 Conclusion Sinus rhythm... V-rate 60- 99 no further interp d/t artifact; repeat requested
--- NOTE | 2024-08-27 20:52 | ED.GENADUL_ITS ---
Discharge Plan Disposition Patient Disposition: Transfer-Acute Inpatient Care Specific Acute Inpt Facility: [facility] Condition: Critical Discharge Details Clinical Impression: Acute and chronic respiratory failure with hypoxia, Urinary tract infection, Occlusion of celiac artery, Tracheostomy in place Primary Care Provider: Nazia Chan ED Provider: Deja Clemons Home Meds and New Rx's Prescriptions: No Action acetaminophen [Tylenol Extra Strength] 500 mg tablet 1,000 mg PO BID PRN tamsulosin [Flomax] 0.4 mg capsule 0.4 mg PO DAILY Qty: 90 3RF finasteride 5 mg tablet 5 mg PO DAILY Qty: 90 3RF gabapentin 300 mg capsule 300 mg PO QID Qty: 360 3RF omeprazole 20 mg capsule,delayed release(DR/EC) 20 mg feeding tube BID Qty: 90 4RF acetylcysteine 100 mg/mL (10 %) solution 4 ml inhalation BID metoprolol succinate 25 mg tablet extended release 24 hr 25 mg PO DAILY rosuvastatin 40 mg tablet 40 mg feeding tube HS Qty: 90 4RF polyethylene glycol 3350 [Miralax] 17 gram/dose powder 17 g PO DAILY PRN (Reason: constipation) Rx Instructions: 06/19/22 instructed by PCP to take 1/2 cap daily, may reduce to half cap three times per week if daily is too much nystatin 100,000 unit/gram powder 1 applic topical BID Qty: 60 12RF sulfamethoxazole-trimethoprim 200-40 mg/5 mL suspension 5 ml PO BID 28 Days Qty: 280 6RF acetylcysteine 600 mg capsule See Rx Instructions .ROUTE .COMPLEX Qty: 60 12RF Dose Instruction: TAKE ONE CAPSULE BY MOUTH TWICE A DAY Rx Instructions: TAKE ONE CAPSULE BY MOUTH TWICE A DAY melatonin 3 MG tablet 3 mg PO HS levetiracetam 500 mg tablet 500 mg PO BID Patient Comments: TAKE ONE TABLET BY MOUTH TWICE A DAY ipratropium-albuterol 0.5 mg-3 mg(2.5 mg base)/3 mL solution for nebulization 3 ml IN BID Rx Instructions: increased dose/use treatment 4 times/day as needed NOT SENT levothyroxine 88 mcg tablet 88 mcg PO DAILY Patient Comments: TAKE ONE TABLET BY MOUTH EVERY DAY sertraline 100 mg tablet 100 mg PO DAILY Patient Comments: TAKE ONE TABLET BY MOUTH EVERY DAY ropinirole 1 mg tablet 0.5 mg PO BID Qty: 0 0RF ferrous sulfate [Feosol] 325 mg (65 mg iron) tablet 325 mg PO DAILY Align Jr 10.5 mg (10 million cell) tablet,chewable 10.5 mg PO DAILY HPI General Mode of arrival: EMS . Date/Time Provider Initiated Documentation: 08/27/24 20:52 . Limitations to Documentation: no limitations . Information obtained by: patient, family, EMS and old records reviewed . HPI N arrative: 79yo M with hx of laryngeal cancer s/p larynegectomy with tracheostomy, PEG in place, COPD baseline 6L O2, AAA s/p repair, called via EMS for atraumatic left leg and hip pain. EMS found patient with borderline fever (T 100.2F) and increased WOB with O2 sat low 90's on home 6L (typically 95+% in that range). Breathing has been slowly worsening for the past two weeks. No cough, has not had fevers at home. No chest pain or LE edema. Leg pain is moderate to severe and making it hard to walk (uses walker at baseline). No numbness, tingling, swelling, or color changes to LLE. No falls or injuries. Otherwise in his usual state of health. Related Data Home Medications ?Medication ?Instructions ?Recorded ?Confirmed omeprazole 20 mg capsule,delayed 20 mg feeding tube BID #90 caps 10/05/19 08/27/24 release melatonin 3 mg tablet 3 mg PO HS 10/29/19 08/27/24 rosuvastatin 40 mg tablet 40 mg feeding tube HS #90 tabs 12/14/19 08/27/24 acetylcysteine 100 mg/mL (10 %) 4 ml inhalation BID 07/05/20 08/27/24 solution acetaminophen 500 mg tablet 1,000 mg PO BID PRN 03/05/22 08/27/24 (Tylenol Extra Strength) polyethylene glycol 3350 17 17 g PO DAILY PRN constipation 06/19/22 08/27/24 gram/dose oral powder (Miralax) nystatin 100,000 unit/gram topical 1 applic topical BID #60 grams 02/19/23 08/27/24 powder metoprolol succinate 25 mg 25 mg PO DAILY 09/02/23 08/27/24 tablet,extended release 24 hr levetiracetam 500 mg tablet 500 mg PO BID 02/17/24 08/27/24 finasteride 5 mg tablet 5 mg PO DAILY #90 tabs 03/02/24 08/27/24 tamsulosin 0.4 mg capsule (Flomax) 0.4 mg PO DAILY #90 caps 03/02/24 08/27/24 Bifidobacterium infantis 10.5 mg 10.5 mg PO DAILY 03/13/24 08/27/24 (10 million cell) chewable tablet (Align Jr) ferrous sulfate 325 mg (65 mg 325 mg PO DAILY 03/13/24 08/27/24 iron) tablet (Feosol) sulfamethoxazole 200 5 ml PO BID 28 days #280 mL 03/29/24 08/27/24 mg-trimethoprim 40 mg/5 mL oral suspension gabapentin 300 mg capsule 300 mg PO QID #360 caps 06/29/24 08/27/24 ipratropium 0.5 mg-albuterol 3 mg 3 ml IN BID shortness of breath or 08/03/24 08/27/24 (2.5 mg base)/3 mL nebulization wheezing soln acetylcysteine 600 mg capsule See Rx Instructions .Route 08/08/24 08/27/24 .COMPLEX #60 caps levothyroxine 88 mcg tablet 88 mcg PO DAILY 08/16/24 08/27/24 sertraline 100 mg tablet 100 mg PO DAILY 08/16/24 08/27/24 ropinirole 1 mg tablet 0.5 mg (1/2 x 1 mg) PO BID #0 tabs 08/17/24 08/27/24 Previous Rx's ?Medication ?Instructions ?Recorded omeprazole 20 mg capsule,delayed 20 mg feeding tube BID #90 caps 10/05/19 release rosuvastatin 40 mg tablet 40 mg feeding tube HS #90 tabs 12/14/19 nystatin 100,000 unit/gram topical 1 applic topical BID #60 grams 02/19/23 powder finasteride 5 mg tablet 5 mg PO DAILY #90 tabs 03/02/24 tamsulosin 0.4 mg capsule (Flomax) 0.4 mg PO DAILY #90 caps 03/02/24 sulfamethoxazole 200 5 ml PO BID 28 days #280 mL 03/29/24 mg-trimethoprim 40 mg/5 mL oral suspension gabapentin 300 mg capsule 300 mg PO QID #360 caps 06/29/24 acetylcysteine 600 mg capsule See Rx Instructions .Route 08/08/24 .COMPLEX #60 caps ropinirole 1 mg tablet 0.5 mg (1/2 x 1 mg) PO BID #0 tabs 08/17/24 Allergies Allergy/AdvReac Type Severity Reaction Status Date / Time pollen extracts Allergy Mild Wheezing Verified 08/27/24 20:55 Tetracyclines Allergy Unknown SKIN RASH Verified 08/27/24 20:55 General CHER: 3 Review of Systems Narrative: see HPI Exam Narrative Exam Narrative: GENERAL: Alert, no acute distress. SKIN: Warm and well perfused. HEAD: Atraumatic, normocephalic without edema, discoloration or evidence of trauma. MOUTH: MMM NECK: Trachea midline. Tracheostomy. CV: Regular rate and rhythm, Normal s1 and s2. No murmurs, rubs, or gallops. PV: Radial pulses 2+ bilaterally and symmetric. Dorsalis pedis pulses 2+ bilaterally and symmetric. 2+ capillary refill. No extremity edema. CHEST: Chest symmetric with respirations. Lungs are clear to auscultation bilaterally. ABDOMEN: Soft, nondistended, nontender. PEG tube, site with surrounding erythema and some purulent drainage BACK: No abrasions, skin openings, or ecchymosis. Spine without bony tenderness, no step offs. PELVIC: Pelvis stable, nontender to lateral compression : Normal external genitalia without blood at meatus. MSK: No gross deformities or discolorations or lesions. Tolerates full range of motion of extremities without tenderness including LLE. No warmth or swelling to LLE NEURO: Alert and oriented to person, place, and time. GCS 15. Medical Decision Making 79yo M with hx of laryngeal cancer s/p larynegectomy with tracheostomy, PEG in place, COPD baseline 6L O2, AAA s/p repair, presenting via EMS for atraumatic left leg and hip pain. EMS found patient with borderline fever (T 100.2F) and increased WOB with O2 sat low 90's on home 6L (typically 95+% in that range)- pt and family reported his breathing has been worsening over the past two weeks. Patient denies chest pain, abdominal pain, back pain, does state breathing feels 'bad'. Tachypneic with slightly increased WOB on exam, sat high 80's, borderline febrile here as well. Will treat presumptively for possible sepsis with broad spectrum abx, zosyn/zyvox. Given respiratory distress would not fluid bolus at this time. Had duoneb from EMS; given 2 more here. 2134 Called by nursing for BP 60/30 that was taken in right arm (same side initial BP taken); clinically appears well perfused, alert. Good radial pulse on left, absent on right. BP LUE normal. Pt denies pain RUE. Taken emergently to CT for dissection scan; no clear occlusion/dissection on my view. On reassessment patient with positive radial pulse RUE and normal BP, symmetric with left. O2 sat decreasing, mid to low 80's while on 100% FiO2 mask over ostomy. Pt writes on paper I am dying. Respiratory therapy to beside and preparations made to place cuffed trache. Suctioned without improvement in sat. [place] of O2 while obtaining trache supplies in 70's; rapidly improved to 98+% after 7.0 cuffed trache placed and pt placed on CPAP 8 100% FiO2. Pt reports breathing much improved with this. Bedside ultrasound with no RV dilation or pericardial effusion (regrettably unable to save images) While in the ED continue to transiently have RUE hypotension and lack of radial pulse with no pain or numbness. Labs reviewed as below, CBC with no leukocytosis and anemia at baseline, CMP with no actionable abnormalities, Mg normal, VBG with respiratory alkalosis, normal lactate, BNP moderately elevated at 1430 but improved from priors, troponin normal x 2, UA suggestive of infection. CT read as below with new occlusion of stent in proximal celiac artery, no other acute findings. LLE remains well perfused, good DP pulse, normal color/sensation/capillary refill/temperature. Not concerned for acute limb ischemia. RUE continues with intermittent loss of pulse but no pain/numbness/tingling and continues to have normal capillary refill/sensation/color/temperature even when radial pulse not palpable. [place] [facility] accepted to ICU under Dr. Wall who did discuss patient with vascular surgery (vascular surgery will evaluate patient after his arrival, did not feel it necessary to speak with me prior to transfer) . Awaiting bed assignment and transport. Doing well on CPAP 8 FiO2 40%. Oncoming physician Dr. Lindsey aware of patient; a follow-on note will only be written if there is a change in patient status or condition. Imaging Data Radiologic Study: Imaging: CT Scan Radiologist's impression: IMPRESSION: 1. Compared to a prior CT abdomen/pelvis dated 06/25/2023, interval new occlusion of stent within the proximal celiac artery. 2. No aortic dissection. Prior placement of patent arterial stents within the lower descending thoracic aorta, the abdominal aorta, SMA, each main renal artery, and the common iliac arteries. 3. No evidence of acute pulmonary embolism. 4. M ultiple bladder diverticula. No bladder wall thickening. 5. Cholelithiasis, otherwise normal gallbladder. No biliary tract dilatation Lab Data Lab results reviewed: Yes I reviewed the patient's lab results. Labs: 08/27/24 21:10 Blood Blood Culture - Pending 08/27/24 21:00 Blood Blood Culture - Pending 08/27/24 21:30 Urine - Reflex from Ua Urine Culture - Pending Laboratory Tests Range/Units 08/27/24 08/27/24 08/27/24 20:55 21:00 21:05 WBC (4.4-10.8) 10^3/uL 10.73 RBC (4.36-5.78) 10^6/uL 3.75 L Hgb (13.5-17.5) g/dL 12.4 L Hct (40.0-50.0) % 37.9 L MCV (80-95) fL 101 H MCH (27.0-33.0) pg 33.1 H MCHC (32.0-36.0) % 32.7 RDW (11.8-14.1) % 12.9 Plt Count (130-400) 10^3/uL 238 MPV (8.0-11.0) fL 9.7 Immature Gran % % 0.8 Neutrophils % % 72.2 Lymphocytes % % 11.1 Monocytes % % 12.4 Eosinophils % % 2.5 Basophils % % 1.0 Nucleated RBC % (0.0-0.3) % 0.0 Absolute Neutrophils (1.2-6.7) 10^3/uL 7.74 H Absolute Lymphocytes (1.2-3.4) 10^3/uL 1.19 L Absolute Monocytes (0.1-0.8) 10^3/uL 1.33 H Absolute Eosinophils (0.0-0.7) 10^3/uL 0.27 Absolute Basophils (0.0-0.2) 10^3/uL 0.11 VBG pH (7.31-7.41) 7.45 H VBG pCO2 (41-51) mmHg 42 VBG pO2 mmHg 29 VBG HCO3 (23-28) mmol/L 29 H VBG Total CO2 (24-29) mmol/L 26 VBG O2 Saturation % 55 VBG Base Excess (-2-3) mmol/L 5 H VBG Lactate (<or=2.0) mmol/L 1.9 Sodium (136-145) mmol/L 140 Potassium (3.5-5.1) mmol/L 4.4 Chloride (98-107) mmol/L 102 Carbon Dioxide (21.0-32.0) mmol/L 29.5 Anion Gap (3-11) mmol/L 8.5 BUN (7-18) mg/dL 25 H Creatinine (0.70-1.30) mg/dL 1.1 Est GFR (CKD-EPI 2020) (mL/min/1.73m2) 68.71 Glucose (74-106) mg/dL 103 Calcium (8.5-10.1) mg/dL 9.7 Magnesium mg/dL 2.4 Total Bilirubin (0.2-1.0) mg/dL 0.5 AST (15-37) U/L 32 ALT (16-63) U/L 43 Alkaline Phosphatase (46-116) U/L 132 H Troponin I (<or=76) ng/L 14 NT-Pro-B Natriuret Pep (<300) pg/mL 1431 H Total Protein (6.4-8.2) g/dL 8.0 Albumin (3.4-5.0) g/dL 3.4 Urine Color (Yellow) Urine Clarity (Clear) Urine pH (5-8) Ur Specific Hancock (1.005-1.025) Urine Protein (Neg-Trace) mg/dL Urine Ketones (Negative) mg/dL Urine Blood (Negative) Urine Nitrite (Negative) Urine Bilirubin (Negative) Urine Urobilinogen (Up to 0.2) mg/dL Ur Leukocyte Esterase (Negative) Urine RBC (0-2) HPF Urine WBC (0-5) HPF Ur Epithelial Cells (Negative) HPF Urine Crystals (Negative) HPF Urine Bacteria (Negative) HPF Urine Casts (Negative) LPF Urine Mucus (Negative) Ur Culture Indicated? Urine Glucose (Negative) mg/dL COVID-19 Source Nasopharynx SARS-CoV-2 (PCR) (Negative) Negative Influenza Type A (PCR) (Negative) Negative Influenza Type B (PCR) (Negative) Negative RSV (PCR) (Negative) Negative MRSA (TEM-PCR) (Negative) Negative Range/Units 08/27/24 08/27/24 21:30 22:06 WBC (4.4-10.8) 10^3/uL RBC (4.36-5.78) 10^6/uL Hgb (13.5-17.5) g/dL Hct (40.0-50.0) % MCV (80-95) fL MCH (27.0-33.0) pg MCHC (32.0-36.0) % RDW (11.8-14.1) % Plt Count (130-400) 10^3/uL MPV (8.0-11.0) fL Immature Gran % % Neutrophils % % Lymphocytes % % Monocytes % % Eosinophils % % Basophils % % Nucleated RBC % (0.0-0.3) % Absolute Neutrophils (1.2-6.7) 10^3/uL Absolute Lymphocytes (1.2-3.4) 10^3/uL Absolute Monocytes (0.1-0.8) 10^3/uL Absolute Eosinophils (0.0-0.7) 10^3/uL Absolute Basophils (0.0-0.2) 10^3/uL VBG pH (7.31-7.41) VBG pCO2 (41-51) mmHg VBG pO2 mmHg VBG HCO3 (23-28) mmol/L VBG Total CO2 (24-29) mmol/L VBG O2 Saturation % VBG Base Excess (-2-3) mmol/L VBG Lactate (<or=2.0) mmol/L Sodium (136-145) mmol/L Potassium (3.5-5.1) mmol/L Chloride (98-107) mmol/L Carbon Dioxide (21.0-32.0) mmol/L Anion Gap (3-11) mmol/L BUN (7-18) mg/dL Creatinine (0.70-1.30) mg/dL Est GFR (CKD-EPI 2020) (mL/min/1.73m2) Glucose (74-106) mg/dL Calcium (8.5-10.1) mg/dL Magnesium mg/dL Total Bilirubin (0.2-1.0) mg/dL AST (15-37) U/L ALT (16-63) U/L Alkaline Phosphatase (46-116) U/L Troponin I (<or=76) ng/L 16 NT-Pro-B Natriuret Pep (<300) pg/mL Total Protein (6.4-8.2) g/dL Albumin (3.4-5.0) g/dL Urine Color (Yellow) Yellow Urine Clarity (Clear) Sl Cloudy Urine pH (5-8) 6.0 Ur Specific Hancock (1.005-1.025) 1.020 Urine Protein (Neg-Trace) mg/dL 30 H Urine Ketones (Negative) mg/dL Negative Urine Blood (Negative) Trace-intact H Urine Nitrite (Negative) Negative Urine Bilirubin (Negative) Negative Urine Urobilinogen (Up to 0.2) mg/dL 0.2 Ur Leukocyte Esterase (Negative) Small H Urine RBC (0-2) HPF 3-5 H Urine WBC (0-5) HPF >50 H Ur Epithelial Cells (Negative) HPF Rare Urine Crystals (Negative) HPF Negative Urine Bacteria (Negative) HPF Few Urine Casts (Negative) LPF Negative Urine Mucus (Negative) Negative Ur Culture Indicated? Yes Urine Glucose (Negative) mg/dL Negative COVID-19 Source SARS-CoV-2 (PCR) (Negative) Influenza Type A (PCR) (Negative) Influenza Type B (PCR) (Negative) RSV (PCR) (Negative) MRSA (TEM-PCR) (Negative) Quality:SDOH Health Related Social Needs: No Data to Display Critical Care Time Critical Care Time Critical Care Time: Yes Total Critical Care Time: 42 Attestation: Due to a high probability of clinically significant, life threatening deterioration, the patient required my highest level of preparedness to intervene emergently and I personally spent this critical care time directly and personally managing the patient. This critical care time included obtaining a history; examining the patient; pulse oximetry; ordering and review of studies; arranging urgent treatment with development of a management plan; evaluation of patient's response to treatment; frequent reassessment; and, discussions with other providers. This critical care time was performed to assess and manage the high probability of imminent, life-threatening deterioration that could result in multi-organ failure. It was exclusive of separately billable procedures and treating other patients? [facility] All Active Problems (Updated 08/27/24 @ 23:48 by Deja Clemons MD) Tracheostomy in place (Acute) Occlusion of celiac artery (Acute) Urinary tract infection (Acute) Acute and chronic respiratory failure with hypoxia (Acute) Laceration of occipital region of scalp (Acute) Foreign body sensation, throat (Acute) Right clavicle fracture (Acute 08/30/23) Syncope (Chronic) Ground glass opacity present on imaging of lung (Acute) Subdural hematoma (Acute) Pulmonary edema (Acute) Fracture of thumb, left, closed (Acute) Acute non-ST elevation myocardial infarction (NSTEMI) (Acute) Arm pain (Acute) Palliative care patient (Acute) Hemoptysis (Acute) Nausea & vomiting (Acute) Regurgitation of food (Acute) Pulmonary embolism (Chronic) Uses feeding tube (Acute) Gross hematuria (Acute) Ambulatory dysfunction (Acute) Leukocytosis (leucocytosis) (Acute) UTI (urinary tract infection) (Acute) Multiple subsegmental pulmonary emboli without acute cor pulmonale (Acute) C1 cervical fracture (Acute) Gastrostomy tube dysfunction (Acute) Encounter for hospice care discussion (Acute) Unintentional weight loss of 10% body weight within 6 months (Acute) Dysuria (Acute) Malfunctioning jejunostomy tube (Acute) Need for follow-up by psychiatric social worker supervisor (Acute) Dysphagia (Acute) Impaired instrumental activities of daily living (Acute) Plantar fascial fibromatosis (Acute) Feeding tube dysfunction (Acute) Sensorineural hearing loss (SNHL) of both ears (Acute) Otalgia of right ear (Acute) Neck pain on right side (Acute) Neck pain on right side (Acute) Full code status (Acute) Need for home health care (Acute) MRSA pneumonia (Acute) pt likely colonized Occlusion of right vertebral artery (Acute) Hypoxemia (Acute) Complication of feeding tube (Acute) Peripheral neuropathy (Acute 02/21/15) PAOD (peripheral arterial occlusive disease) (Acute) Laryngeal cancer (Acute) COPD (chronic obstructive pulmonary disease) (Chronic) G tube feedings (Acute) 20F 3.0cm 11/30/22. Routine change every 4 months. 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 Hypertension Tobacco use COPD (chronic obstructive pulmonary disease) Post herpetic neuralgia Hypothyroidism Hyperlipemia Depression Anxiety Anemia Conjunctivitis, chronic Surgical History S/P AAA (abdominal aortic aneurysm) repair Status post laryngectomy History of esophagogastroduodenoscopy (EGD) (~08/10/19) Daron Casper APRN @ [facility]: hiatal hernia, GERD, Reyes's esophagitis, neuromuscular dysfunction History of laryngectomy Status post cardiac catheterization Status post cataract extraction and insertion of intraocular lens of right eye (07/12/18) History of tarsorrhaphy Status post cataract extraction and insertion of intraocular lens of left eye (04/30/12) 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) Sin-mullins button placed by Dr Elia Mcdonald, [facility] PROCEDURES RT/LEFT HEART CARD CATH COMPLETE LARYNGECTOMY Esophagoplasty EGD - MAC (07/06/17) Colonoscopy - MAC (12/22/16) History of radical laryngectomy Family History Nephew Throat cancer Maternal Cousin Cancer Social History Smoking/Tobacco Use Status: Former Tobacco Use Quit Date: 04/23/13 Tobacco: How many years used: 20 Smoking risk assessment performed?: Yes Alcohol Intake: never Drug use: Never Substance use type: does not use Housing: house Current gender identity: male Do you feel safe at home: Yes Do you feel safe in your relationship?: Yes
--- NOTE | 2024-08-27 21:00 | RT.EKG_ITS ---
APPROVED REPORT Exam: Resting ECG Reason for Exam: sob Patient Location: E HR:94 bpm ECG Measurements Heart Rate 94 AXIS NV 215 P 48 QRSd 155 QRS 83 QT 387 T -17 QTc 485 Conclusion Sinus rhythm...normal P axis, V-rate 60- 99 Prolonged NV interval...NV >215, V-rate 91-120 Probable left atrial enlargement...P >50mS, <-0.10mV V1 Right bundle branch block...QRSd>120, terminal axis(90,270) no ST segment or T wave abnormalities to suggest occlusive CA similar to prior 08/15/24
[2024-08-27] MEDS: Albuterol/Ipratropium 3 ML UPD VIAL UPD ×2 (21:07→21:23)
[2024-08-27 21:15] LABS: BE (Venous) 5 mmol/L (-2-3); HCO3 (Venous) 29 mmol/L (23-28); Lactate 1.9 mmol/L (<or=2.0); O2 Sat (Venous) 55 %; TCO2 (Venous) 26 mmol/L (24-29); pCO2 (Venous) 42 mmHg (41-51); pH (Venous) 7.45 (7.31-7.41); pO2 (Venous) 29 mmHg
[2024-08-27 21:16] LABS: Abs Immature Grans 0.09 10^3/uL (0.0-0.06); Absolute Basophil Count 0.11 10^3/uL (0.0-0.2); Absolute Eosinophil Count 0.27 10^3/uL (0.0-0.7); Absolute Lymphocyte Count 1.19 10^3/uL (1.2-3.4); Absolute Monocyte Count 1.33 10^3/uL (0.1-0.8); Absolute Neutrophil Count 7.74 10^3/uL (1.2-6.7); Eosinophils % 2.5 %; HCT 37.9 % (40.0-50.0); HGB 12.4 g/dL (13.5-17.5); Immature Grans % 0.8 %; Lymphocytes % 11.1 %; MCH 33.1 pg (27.0-33.0); MCHC 32.7 % (32.0-36.0); MCV 101 fL (80-95); MPV 9.7 fL (8.0-11.0); Monocytes % 12.4 %; Neutrophils % 72.2 %; Platelet Count 238 10^3/uL (130-400); RBC 3.75 10^6/uL (4.36-5.78); RDW 12.9 % (11.8-14.1); RDW-SD 47.9 fL; WBC 10.73 10^3/uL (4.4-10.8)
[2024-08-27] MEDS: LINEZOLID 600 MG/300 ML BAG 300 MG IVPB (21:23)
[2024-08-27] MEDS: ACETAMINOPHEN 1,000 MG/100 ML BAG 400 MG IVPB (21:27)
[2024-08-27 21:38] LABS: ALT 43 U/L (16-63); AST 32 U/L (15-37); Albumin 3.4 g/dL (3.4-5.0); Alkaline Phosphatase 132 U/L (46-116); Anion Gap 8.5 mmol/L (3-11); BUN 25 mg/dL (7-18); Bilirubin, Total 0.5 mg/dL (0.2-1.0); CO2 29.5 mmol/L (21.0-32.0); CREATININE 1.1 mg/dL (0.70-1.30); Calcium 9.7 mg/dL (8.5-10.1); Chloride 102 mmol/L (98-107); Estimated GFR 68.71 (mL/min/1.73m2); Glucose 103 mg/dL (74-106); Magnesium 2.4 mg/dL; NT-proBNP 1431 pg/mL (<300); Potassium 4.4 mmol/L (3.5-5.1); Sodium 140 mmol/L (136-145)
[2024-08-27 21:45] LABS: Bilirubin Negative (Negative); Blood Trace-intact (Negative); Clarity Sl Cloudy (Clear); Glucose Negative (Negative); Ketones Negative (Negative); Leukocyte Esterase Small (Negative); Nitrite Negative (Negative); Urobilinogen 0.2 mg/dL (Up to 0.2)
[2024-08-27 21:47] LABS: WBC >50 HPF (0-5)
[2024-08-27 21:48] LABS: Bacteria Few HPF (Negative); C & S Indicated? Yes; Casts Negative LPF (Negative); Crystals Negative HPF (Negative); Epithelial Cells Rare HPF (Negative); Mucus Negative (Negative)
[2024-08-27 21:52] LABS: COVID-19 PCR Negative (Negative); Influenza A PCR Negative (Negative); Influenza B PCR Negative (Negative); RSV PCR Negative (Negative); Source Nasopharynx
--- NOTE | 2024-08-27 22:02 | DI.CT_ITS ---
Exam(s) CT THORAX ABD/PEL CTA EXAM: CT THORAX ABD/PEL CTA CLINICAL HISTORY: eval for aortic dissection. TECHNIQUE: Imaging Protocol: Axial CT angiography was performed with multi-slice acquisition and m ulti-planar and/or 3D reconstructions. Lung Computer Aided Detection (CAD) was utilized. CONTRAST MATERIAL: Intravenous: Omnipaque 350 contrast volume:100 mL Oral: No COMPARISON: CT CT ABDOMEN PELVIS W from 06/25/[address] CHEST WO from 10/21/2023 CR XR CHEST 2V PA LATERAL from 08/03/2024 CR,XR XR CHEST 1V IN DI DEPT from 08/16/[address] HEAD CERVICAL SPINE WO from 08/16/2024 FINDINGS: The examination is limited due to patient motion artifact. CHEST: Tracheobronchial tree: The patient has a tracheotomy defect. Patent where visualized. There is no ev idence of bronchiectasis. Pulmonary parenchyma: Mild increased opacities in the right lower lobe. No focal consolidating infil trate is seen. This may represent atelectasis or infection. No suspicious pulmonary nodules are see n. Pulmonary Arteries: Examination is limited by patient motion artifact. Within the examination limits , no pulmonary emboli are identified. Mediastinum and Sonali: No dominant adenopathy or fluid collection. The esophagus is unremarkable. Visualized thyroid: Thyroid tissue is not present. Pleura: No effusion or pneumothorax. Heart: Mild cardiomegaly. Three vessel coronary artery calcification is present. No pericardial eff usion. Aorta: Thoracic aorta non-dilated. There is atherosclerotic calcification present. There is marked s tenosis at the origin of the right subclavian artery. There is also moderate to severe narrowing of the proximal common carotid arteries. No evidence to suggest an acute dissection are seen. Soft Tissues: There is gynecomastia, left greater than right. Bones: Within normal limits for the patient's age.There is again seen resection of the medial aspect of the left clavicle. Old rib fracture deformities are present. There is now a depression seen in t he anterior sternum not present on any recent examinations which may represent recent trauma. Please correlate clinically. No change in appearance of the mild compression of the T7 vertebral body. ABDOMEN AND PELVIS: Abdomen: Celiac axis/mesenteric arteries: There is occlusion of the celiac axis with reconstitution of the ves sels distally. The superior mesenteric artery is patent. Renal Arteries: No evidence of occlusion or significant stenosis. Aorta: No evidence of occlusion or significant stenosis. There is a stent seen in the distal aorta and extending into the common iliac arteries. The descending thoracic aorta measures 3.[address] The patient's andreafski distal abdominal aortic aneurysm measures 4.5 x 5.3 cm. There is no evide nce to suggest an endovascular leak. Pelvis: Iliac Arteries: There is occlusion of the proximal left internal iliac artery with distal reconstitu tion. Common iliac arteries and the right internal iliac artery are unremarkable. Common Femoral Arteries: No evidence of occlusion or significant stenosis. ABDOMEN: Liver: Normal density. No measurable mass. Portal, superior mesenteric and splenic veins: Unremarkable. Gallbladder and Biliary Tract: Cholelithiasis. No significant biliary ductal dilatation. Pancreas: There is pancreatic atrophy. No peripancreatic fluid collections or pancreatic mass is see n. Spleen: Normal. Adrenals: No masses seen. Kidneys: Normal size, contour and axis. No radiodense stones or obstructive uropathy. There is a stab le simple cyst at the inferior pole of the right kidney. No follow-up is recommended. Bowel: Patient has a percutaneous gastrostomy tube in place. Stomach is incompletely distended limit ing evaluation. The bowel shows no evidence of obstruction or bowel wall thickening. No evidence of appendicitis. Peritoneal Cavity: No ascites, collection or mesenteric inflammatory response. No free air. Lymph Nodes: Within normal limits. Bones: There is a deformity seen in the left sacrum consistent with the left sacral insufficiency fra cture. This is of indeterminate age. There are old stable T12 and L1 compression fracture deformiti es. Soft Tissues: Unremarkable. PELVIS: Bladder: There are numerous bladder diverticula present. No significant bladder wall thickening is s een. Reproductive Organs: Unremarkable as visualized. Lymph Nodes: Within normal limits. Bones: Within normal limits for the patient's age. IMPRESSION: 1. Examination is limited by patient motion artifact. 2. No acute abdominal or pelvic process. 3. Left sacral insufficiency fracture of indeterminate age. 4. Within the limits of the examination, there is no evidence of a pulmonary embolism. 5. Right basilar infiltrate which may represent atelectasis or infection. Please correlate clinicall y. 6. Occlusion of the proximal celiac artery. 7. No evidence of acute aortic dissection. 8. Interval depression of the anterior sternum with some sclerosis. This may represent a recent inju ry. Please correlate for any history of recent trauma. RADIATION DOSE DELIVERED: 719.79mGy.cm Total DLP DATA REPOSITORY: All CT scans at this facility are submitted to the National Radiology Data Registry (NRDR) Dose Index Registry (DIR) with the [employer] (ACR). RADIATION OPTIMIZATION: All CT scans at this facility use at least one of these dose optimization te chniques: automated exposure control; mA and/or kV adjustment per patient size (includes targeted exa ms where dose is matched to clinical indication); or iterative reconstruction.
[2024-08-27 22:22] LABS: Troponin I 14 ng/L (<or=76)
[2024-08-27 22:28] LABS: MRSA PCR Negative (Negative)
[2024-08-27 22:29] LABS: Troponin I 16 ng/L (<or=76)
--- NOTE | 2024-08-27 22:44 | DI.VRAD_ITS ---
Addendum created by Richard Barraza MD on 08/27/2024 11:09:41 PM EDT: On axial images 25-30, series 15, severe focal stenosis of the proximal right subclavian artery (approximately 6 mm in length). Mixed plaque within the proximal right common carotid artery. Scattered calcific plaque within the proximal common carotid artery and left subclavian artery. Initial report created on 08/27/2024 10:43:56 PM EDT: PROCEDURE INFORMATION: Exam: CTA Chest With Contrast CTA Abdomen and Pelvis With Contrast Exam date and time: 08/27/2024 9:45 PM Age: 79 years old Clinical indication: Eval for aortic dissection; PT unable to follow breathing instructions. TECHNIQUE: Imaging protocol: Computed tomographic angiography of the chest with contrast. Exam focused on the arteries. Computed tomographic angiography of the abdomen and pelvis with contrast. Exam focused on the arteries. 3D rendering (Not supervised by radiologist): MIP and/or 3D reconstructed images were created by the technologist. Contrast material: OMNIPAQUE 350; Contrast volume: 100 ml; Contrast route: INTRAVENOUS (IV); COMPARISON: CT CHEST PE CTA 04/21/2023 8:44 PM FINDINGS: Tubes, catheters and devices: Tip of gastrostomy tube is located in the gastric lumen. VASCULATURE: Pulmonary arteries: No evidence of acute pulmonary embolism. Aorta: No aortic dissection. Prior placement of patent arterial stents within the lower descending thoracic aorta, the abdominal aorta, SMA, each main renal artery, and the common iliac arteries. Normal caliber thoracic aorta without dissection or aneurysm. Celiac trunk and mesenteric arteries: Compared to a prior CT abdomen/pelvis dated 06/25/2023, interval new occlusion of stent within the proximal celiac artery. Patent stent within the proximal SMA. Renal arteries: Patent stents within each proximal main renal artery. Right iliac arteries: Scattered calcific plaque. Patent right iliac limb of aortic stent graft. No occlusion or significant stenosis. Left iliac arteries: No occlusion. Patent left iliac limb of aortic stent graft. Possible stenosis at the origin of the left internal iliac artery. CHEST: Lungs: No acute alveolar or ground glass infiltrate. Posterior right lower lobe lung dependent parenchymal changes. Pleural spaces: No pleural fluid collection. No pneumothorax. Heart: No right ventricular strain. No pericardial effusion. Esophagus: Mild distension of the thoracic esophagus. ABDOMEN AND PELVIS: Liver: No mass. Gallbladder and biliary ducts: Cholelithiasis, otherwise normal gallbladder. No biliary tract dilatation. Pancreas: Pancreatic atrophy. No pancreatic ductal dilatation. Spleen: Unremarkable. No splenomegaly. Adrenal glands: Unremarkable. No mass. Kidneys and ureters: No hydronephrosis. No calcified renal or ureteral stones. 19 mm inferior right renal cortical cyst. Stomach and bowel: No generalized ileus or bowel obstruction. Sigmoid colon diverticulum without evidence of diverticulitis. Appendix: No evidence of appendicitis. Intraperitoneal space: No free air. No significant fluid collection. Urinary bladder: Multiple bladder diverticula. No bladder wall thickening. Reproductive: Unremarkable as visualized. Lymph nodes: No enlarged lymph nodes. Bones/joints: Old loss of height of the T12 and L1 vertebral bodies. Soft tissues: Gynecomastia. IMPRESSION: 1. Compared to a prior CT abdomen/pelvis dated 06/25/2023, interval new occlusion of stent within the proximal celiac artery. 2. No aortic dissection. Prior placement of patent arterial stents within the lower descending thoracic aorta, the abdominal aorta, SMA, each main renal artery, and the common iliac arteries. 3. No evidence of acute pulmonary embolism. 4. Multiple bladder diverticula. No bladder wall thickening. 5. Cholelithiasis, otherwise normal gallbladder. No biliary tract dilatation. Dictated and Authenticated by: Richard Barraza MD. Orderin Kaci Short MD
[2024-08-28] VITALS: PULSE 91; RESP 16
[2024-08-28 00:01] VITALS: BP 159/141; PULSE 88; PULSE 90; RESP 17
[2024-08-28 00:10] VITALS: PULSE 88; PULSE 89; RESP 16; O2SAT 99
[2024-08-28 00:16] VITALS: BP 167/57; PULSE 87; PULSE 88; RESP 13; O2SAT 98
[2024-08-28 00:20] VITALS: PULSE 88; PULSE 89; RESP 17; O2SAT 99
[2024-08-28 00:30] VITALS: PULSE 88; RESP 18; O2SAT 98
[2024-08-28] MEDS: Normal Saline - Diluent 50 ML VIAL IJ (02:06)
[2024-08-28] MEDS: Omnipaque 350 MG/ML 100 ML BTL IJ (02:07)
== END 2024-08-28 00:46 | disposition short-term general hospital (02) ==
PROVIDERS: Emergency Provider Student in an Organized Health Care Education/Training Program; PCP Physician Assistant Medical
DX: J96.21 Acute and chronic respiratory failure with hypoxia (principal); N39.0 Urinary tract infection, site not specified; I77.4 Celiac artery compression syndrome; I45.19 Other right bundle-branch block; I25.10 Atherosclerotic heart disease of native coronary artery without angina pectoris; I10 Essential (primary) hypertension; E03.9 Hypothyroidism, unspecified; E78.5 Hyperlipidemia, unspecified; J44.9 Chronic obstructive pulmonary disease, unspecified; Z93.1 Gastrostomy status; Z93.0 Tracheostomy status; Z79.899 Other long term (current) drug therapy; Z99.81 Dependence on supplemental oxygen; Z87.891 Personal history of nicotine dependence
CPT/HCPCS: 71275; 80053; 82805; 87040; 87637; 87641; 93005; 94640; 96365; 96366; 96368; 99285; 74174; 81003; 81015; 83605; 83735; 83880; 84484; 85025; 87086; 93010; J0131; J2020; J2543; J3490; J7620

== ENCOUNTER 2024-08-30 11:25 | Inpatient (IN) | payer MEDICARE, MEDICAID, SELFPAY ==
--- NOTE | 2024-08-30 11:32 | HPE_ITS ---
<Statement entered by Dwayne Lozada - 08/31/24 08:29> The patient presented with hypoxic respiratory failure and was in the ICU breifly at [facility]. This appeared to be one of his mucous plugging events. He is back to close to his baseline respiratory status at this point. He was able to bring up mucous well, and we removed some dried mucous from his tracheostomy site as well. Date of service: 08/30/24 Time of Service: 11:32 Assessment and Plan Assessment and plan (1) Right subclavian artery occlusion: Status: Acute Assessment and plan: As per CT imaging ; seen at [facility] vascular---no need for Sx intervention Will need opt f/u with vascular continue ASA and statin Continue BP monitoring to LUE with comparison to RUE (2) Occlusion of celiac artery: Status: Acute Assessment and plan: As above (3) Leg pain: Status: Acute Assessment and plan: PRN APAP Neurotin Requip (4) Uses feeding tube: Status: Acute Assessment and plan: Resume feeding as per home regimen ( based on nutrition consult during last stay) (5) CAD (coronary artery disease): Assessment and plan: On Metoprolol, statin and now ASA Hx of NSTEMI (6) Hypertension: Assessment and plan: At [facility] brief episode of hypotension noticed Resumed metoprolol Holding home losartan dose --> resume as per PCP f/u on discharge (7) On deep vein thrombosis (DVT) prophylaxis: Status: Acute Assessment and plan: On LMWH (8) Discharge planning issues: Status: Resolved Assessment and plan: Possible d/c in AM f/u with vascular at [facility] F/u with PCP discussed with Dr. Lozada History of Present Illness History of Present Illness Chief Complaint: Lower ext pain Narrative: This 74 years old healthy-appearing patient with a past medical history of laryngeal cancer status post laryngectomy, oxygen dependent on 6 L at home via trach mask for chronic respiratory failure, bilateral subdural hematomas, COPD, feeding tube, hypothyroidism, hypertension, hyperlipidemia remote history of EtOH use disorder is returning from [facility] s/p evaluation for right celiac and subclavian arteries after initial presentation with c/o right LE pain to the ED at [facility] on 08/27/2024 and subsequent transfer to [facility]. Vascular at [facility] recommended not surgical intervention, continue statin and ASA and using the LUE for continuous BP monitoring and comparison to the RUE. On arrival, the patient denied headache, chills, fever, chest pain, nausea, vomiting, diarrhea or dysuria. C/o bilateral LE's pain and RLS symtoms verbalized. The paient is a full code. Review of Systems All systems reviewed & are unremarkable except as noted in HPI and below PFSH All Active Problems (Updated 08/30/24 @ 15:36 by Juliann Bacon APRN) On deep vein thrombosis (DVT) prophylaxis (Acute) Right subclavian artery occlusion (Acute) Leg pain (Acute) Tracheostomy in place (Acute) Occlusion of celiac artery (Acute) Urinary tract infection (Acute) Acute and chronic respiratory failure with hypoxia (Acute) Foreign body sensation, throat (Acute) Right clavicle fracture (Acute 08/30/23) Syncope (Chronic) Ground glass opacity present on imaging of lung (Acute) Subdural hematoma (Acute) Pulmonary edema (Acute) Fracture of thumb, left, closed (Acute) Acute non-ST elevation myocardial infarction (NSTEMI) (Acute) Arm pain (Acute) Hemoptysis (Acute) Nausea & vomiting (Acute) Regurgitation of food (Acute) Pulmonary embolism (Chronic) Uses feeding tube (Acute) Gross hematuria (Acute) Ambulatory dysfunction (Acute) Leukocytosis (leucocytosis) (Acute) UTI (urinary tract infection) (Acute) Multiple subsegmental pulmonary emboli without acute cor pulmonale (Acute) C1 cervical fracture (Acute) Gastrostomy tube dysfunction (Acute) Encounter for hospice care discussion (Acute) Unintentional weight loss of 10% body weight within 6 months (Acute) Dysuria (Acute) Malfunctioning jejunostomy tube (Acute) Need for follow-up by executive secretary social welfare (Acute) Dysphagia (Acute) Impaired instrumental activities of daily living (Acute) Plantar fascial fibromatosis (Acute) Feeding tube dysfunction (Acute) Sensorineural hearing loss (SNHL) of both ears (Acute) Otalgia of right ear (Acute) Neck pain on right side (Acute) Neck pain on right side (Acute) Full code status (Acute) Need for home health care (Acute) MRSA pneumonia (Acute) pt likely colonized Occlusion of right vertebral artery (Acute) Hypoxemia (Acute) Complication of feeding tube (Acute) Peripheral neuropathy (Acute 02/21/15) PAOD (peripheral arterial occlusive disease) (Acute) Laryngeal cancer (Acute) COPD (chronic obstructive pulmonary disease) (Chronic) 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 Routine change every 4 months. History of laryngeal cancer Chronic respiratory failure with hypoxia Pneumonia Shortness of breath Complication of feeding tube Hematoma following procedure Blockage of feeding tube Dyspnea on exertion Neurotrophic cornea of left eye Left corneal scar with opacity Cortical cataract of right eye Nuclear sclerotic cataract of right eye Posterior subcapsular age-related cataract, right eye Feeding tube dysfunction CAD (coronary artery disease) Sessile colonic polyp 12/22/16-SESSILE SERRATED ADENOMA Restless leg syndrome (02/21/15) Pulmonary nodule, right (05/30/15) on chest CT -2015: stable Primary malignant neoplasm of oropharynx ; yearly fup in Feb (last ) [facility] SX: 2007 ROR: 2000 + 2007 Impingement syndrome, shoulder, left (10/10/16) -2017: PT sugg. 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 Hypertension Tobacco use COPD (chronic obstructive pulmonary disease) Post herpetic neuralgia Hypothyroidism Hyperlipemia Depression Anxiety Conjunctivitis, chronic Surgical History S/P AAA (abdominal aortic aneurysm) repair Status post laryngectomy History of esophagogastroduodenoscopy (EGD) (~08/10/19) Daron Casper APRN @ [facility]: hiatal hernia, GERD, Reyes's esophagitis, neuromuscular dysfunction History of laryngectomy Status post cardiac catheterization Status post cataract extraction and insertion of intraocular lens of right eye (07/12/18) History of tarsorrhaphy Status post cataract extraction and insertion of intraocular lens of left eye (04/30/12) 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) Sin-mullins button placed by Dr Elia Mcdonald, [facility] PROCEDURES RT/LEFT HEART CARD CATH COMPLETE LARYNGECTOMY Esophagoplasty EGD - MAC (07/06/17) Colonoscopy - MAC (12/22/16) History of radical laryngectomy Family History Nephew Throat cancer Maternal Cousin Cancer Social History Smoking/Tobacco Use Status: Former Tobacco Use Quit Date: 04/23/13 Tobacco: How many years used: 20 Smoking risk assessment performed?: Yes Alcohol Intake: never Drug use: Never Substance use type: does not use Housing: house Current gender identity: male Do you feel safe at home: Yes Do you feel safe in your relationship?: Yes Meds Allergies and Home Medications Allergies Allergy/AdvReac Type Severity Reaction Status Date / Time pollen extracts Allergy Mild Wheezing Verified 08/27/24 20:55 Tetracyclines Allergy Unknown SKIN RASH Verified 08/27/24 20:55 Home Medications ?Medication ?Instructions ?Recorded ?Confirmed ?Type omeprazole 20 mg capsule,delayed 20 mg feeding tube BID #90 caps 10/05/19 0 08/29/24 Rx release melatonin 3 mg tablet 3 mg PO HS 10/29/19 08/29/24 History rosuvastatin 40 mg tablet 40 mg feeding tube HS #90 tabs 12/14/19 08/29/24 Rx acetylcysteine 100 mg/mL (10 %) 4 ml inhalation BID 07/05/20 08/29/24 History solution acetaminophen 500 mg tablet 1,000 mg PO BID PRN 03/05/22 08/29/24 History (Tylenol Extra Strength) polyethylene glycol 3350 17 17 g PO DAILY PRN constipation 06/19/22 08/29/24 History gram/dose oral powder (Miralax) nystatin 100,000 unit/gram topical 1 applic topical BID #60 grams 02/19/23 08/29/24 Rx powder metoprolol succinate 25 mg 25 mg PO DAILY 09/02/23 08/29/24 History tablet,extended release 24 hr levetiracetam 500 mg tablet 500 mg PO BID 02/17/24 08/29/24 History finasteride 5 mg tablet 5 mg PO DAILY #90 tabs 03/02/24 08/29/24 Rx tamsulosin 0.4 mg capsule (Flomax) 0.4 mg PO DAILY #90 caps 03/02/24 08/29/24 Rx Bifidobacterium infantis 10.5 mg 10.5 mg PO DAILY 03/13/24 08/29/24 History (10 million cell) chewable tablet (Align Jr) ferrous sulfate 325 mg (65 mg 325 mg PO DAILY 03/13/24 08/29/24 History iron) tablet (Feosol) sulfamethoxazole 200 5 ml PO BID 28 days #280 mL 03/29/24 08/29/24 Rx mg-trimethoprim 40 mg/5 mL oral suspension gabapentin 300 mg capsule 300 mg PO QID #360 caps 06/29/24 08/29/24 Rx ipratropium 0.5 mg-albuterol 3 mg 3 ml IN BID shortness of breath or 08/03/24 08/29/24 History (2.5 mg base)/3 mL nebulization wheezing soln acetylcysteine 600 mg capsule See Rx Instructions .Route 08/08/24 08/29/24 Rx .COMPLEX #60 caps levothyroxine 88 mcg tablet 88 mcg PO DAILY 08/16/24 08/29/24 History sertraline 100 mg tablet 100 mg PO DAILY 08/16/24 08/29/24 History ropinirole 1 mg tablet 0.5 mg (1/2 x 1 mg) PO BID #0 tabs 08/17/24 08/29/24 Rx Exam Narrative Exam Narrative: 79 years old male patient appearing older than stated age, alert oriented x 4 without acute distress, no focal neuro-deficits, unlabored breathing clear lungs?tracheostomy stoma within normal limits but thick crust of secretion forming at the edge, + cough with copious production of thick yellow sputum, heart is regular, S1- S2, no murmur positive pulses to all extremities, abdomen no acute, congruent mood and affect. Time Spent Time spent with Patient: >75 minutes Time was spent: preparing to see the patient(eg.review tests), obtaining and/or reviewing separately otained hiistory, ordering medications,tests, procedures, referring, communicating with other health care management associate, indepentently interpreting results, counseling the patient and care coordination
[2024-08-30 13:09] VITALS: O2SAT 98
--- NOTE | 2024-08-30 13:33 | W.PC.ACHO ---
Registration Status: Primary Language: Preferred Language: Medical / Surgical History (Last Reviewed 08/29/24 @ 09:11 by Isha Mayo NP) Recurrent syncope Laceration of occipital region of scalp Fall Orthostatic hypotension Palliative care patient Caregiver stress Advance care planning Weakness G tube feedings History of laryngeal cancer Chronic respiratory failure with hypoxia Pneumonia Shortness of breath Complication of feeding tube Hematoma following procedure Blockage of feeding tube Dyspnea on exertion Neurotrophic cornea of left eye Left corneal scar with opacity Cortical cataract of right eye Nuclear sclerotic cataract of right eye Posterior subcapsular age-related cataract, right eye Feeding tube dysfunction CAD (coronary artery disease) Sessile colonic polyp Restless leg syndrome (02/21/15) Pulmonary nodule, right (05/30/15) Primary malignant neoplasm of oropharynx Impingement syndrome, shoulder, left (10/10/16) Hypothyroidism (11/18/12) Hypertension (11/18/12) Hyperlipidemia (11/18/12) History of tobacco use History of alcoholism Herpes zoster Depressive disorder (11/18/12) 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/17) Aphonia Anxiety 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) Hypertension Tobacco use COPD (chronic obstructive pulmonary disease) Post herpetic neuralgia Hypothyroidism Hyperlipemia Depression Anxiety Conjunctivitis, chronic (Last Reviewed 08/29/24 @ 09:11 by Isha Mayo NP) S/P AAA (abdominal aortic aneurysm) repair Status post laryngectomy History of esophagogastroduodenoscopy (EGD) (~08/10/19) History of laryngectomy Status post cardiac catheterization Status post cataract extraction and insertion of intraocular lens of right eye (07/12/18) History of tarsorrhaphy Status post cataract extraction and insertion of intraocular lens of left eye (04/30/12) 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 Information / Comments: Pt received to floor at 1245 via [facility]. Pt is a/o to self and place. Confused to time intermittently. Pt had Irregular L dialated pupil at baseline. Bowel sounds active and LBM was 3/17. Pt has PED for feeding which he gets bolus tube fees through, 4 x a day. Pt gets 180 ml of free water 4 x a day as well. Pt has a trach stoma which is clean and dry. Pt has a misted trach collar on at 35% and sating at 99%. Pt is on 6L o2 at home beaseline. Pt's lung sounds are clear. Pt has a #18 to L AC which is patent and flushes well with good blood return. Pt was transfered from [facility] to [facility] for acute respiratory failure. Now back at baseline is here for stabilization and dc home. Pt was c/o leg pain at onset of symptoms and is still c/o leg pain when returning to [facility]. Provider made aware of continued leg pain via webex. Awaiting response. Report received from:
[2024-08-30 13:35] VITALS: BP 105/77; PULSE 82; RESP 16; TEMP 36.8; O2SAT 97; O2SAT 99
[2024-08-30] MEDS: Acetaminophen 500 MG TAB 1000 MG PO (15:09)
[2024-08-30] MEDS: rOPINIRole 0.5 MG TAB PO (15:09)
[2024-08-30] MEDS: Gabapentin 300 MG CAP PO ×2 (15:09→21:17)
[2024-08-30 15:32] VITALS: BP 95/83; PULSE 78; RESP 14; TEMP 36.5; O2SAT 95
[2024-08-30] MEDS: Acetylcysteine 600 MG CAP PO (21:16)
[2024-08-30] MEDS: Rosuvastatin 20 MG TAB 40 MG PO (21:16)
[2024-08-30] MEDS: levETIRAcetam Oral Solution 100 MG/ML 500 MG PO (21:17)
[2024-08-30] MEDS: Melatonin 3 MG TAB PO (21:17)
[2024-08-30] MEDS: Sulfameth/Trimeth 40-8 mg per ml 5 ML PO (21:18)
[2024-08-30 21:50] VITALS: BP 167/65; PULSE 84; RESP 20; TEMP 37; O2SAT 95
[2024-08-31 02:10] VITALS: BP 112/79; PULSE 79; RESP 19; TEMP 37.2; O2SAT 96
[2024-08-31] MEDS: Acetaminophen 500 MG TAB 1000 MG PO (04:39)
[2024-08-31] MEDS: Levothyroxine 88 MCG TAB PO (05:25)
[2024-08-31 06:35] LABS: Abs Immature Grans 0.07 10^3/uL (0.0-0.06); Absolute Basophil Count 0.11 10^3/uL (0.0-0.2); Absolute Eosinophil Count 0.44 10^3/uL (0.0-0.7); Absolute Lymphocyte Count 0.94 10^3/uL (1.2-3.4); Absolute Monocyte Count 0.94 10^3/uL (0.1-0.8); Basophils % 0.9 %; Eosinophils % 3.5 %; HCT 39.2 % (40.0-50.0); HGB 12.6 g/dL (13.5-17.5); Immature Grans % 0.6 %; Lymphocytes % 7.4 %; MCH 32.8 pg (27.0-33.0); MCHC 32.1 % (32.0-36.0); MCV 102 fL (80-95); MPV 9.6 fL (8.0-11.0); Monocytes % 7.4 %; Neutrophils % 80.2 %; Platelet Count 239 10^3/uL (130-400); RBC 3.84 10^6/uL (4.36-5.78); RDW 12.9 % (11.8-14.1); RDW-SD 48.4 fL; WBC 12.67 10^3/uL (4.4-10.8)
[2024-08-31 06:36] LABS: Absolute Neutrophil Count 10.16 10^3/uL (1.2-6.7)
[2024-08-31 06:52] LABS: Anion Gap 10.8 mmol/L (3-11); BUN 28 mg/dL (7-18); CO2 29.2 mmol/L (21.0-32.0); CREATININE 0.8 mg/dL (0.70-1.30); Calcium 9.2 mg/dL (8.5-10.1); Chloride 107 mmol/L (98-107); Estimated GFR 90.58 (mL/min/1.73m2); Glucose 128 mg/dL (74-106); Magnesium 2.6 mg/dL; Sodium 147 mmol/L (136-145)
[2024-08-31 07:15] VITALS: BP 114/79; PULSE 81; RESP 20; TEMP 36.8; O2SAT 95
[2024-08-31 08:23] VITALS: O2SAT 93
[2024-08-31] MEDS: Enoxaparin 40 MG/0.4 ML SYR SC (09:18)
[2024-08-31] MEDS: Finasteride 5 MG TAB PO (09:19)
[2024-08-31] MEDS: Acetylcysteine 600 MG CAP PO (09:19)
[2024-08-31] MEDS: Ferrous Sulfate 325 MG TAB PO (09:19)
[2024-08-31] MEDS: rOPINIRole 0.5 MG TAB PO (09:20)
[2024-08-31] MEDS: Aspirin 81 MG CHEW CH (09:21)
[2024-08-31] MEDS: Omeprazole 20 MG CAPCR PO (09:21)
[2024-08-31] MEDS: Gabapentin 300 MG CAP PO (09:21)
[2024-08-31] MEDS: Tamsulosin 0.4 MG CAPCR PO (09:22)
[2024-08-31] MEDS: Metoprolol CR 25 MG TABCR PO (09:24)
[2024-08-31] MEDS: levETIRAcetam Oral Solution 100 MG/ML 500 MG PO (09:26)
[2024-08-31] MEDS: Sulfameth/Trimeth 40-8 mg per ml 5 ML PO (09:28)
--- NOTE | 2024-08-31 09:35 | PDOC.CMIN ---
Date of service: 08/31/24 Time of Service: 09:36 Care Management Initial Assmt Advance Directives Advance Directives: Do you have an Advance Directive: Y 12/11/22 13:39 AD On File at [facility]: Y 12/11/22 13:39 Date Asked 08/29/24 08/29/24 12:10 AD Date Reviewed 08/30/24 08/30/24 12:56 COLST On File at [facility] Yes 12/11/22 13:39 COLST Date Scanned 04/13/21 12/11/22 13:39 Code Status Resuscitation Status Full Code Care Team Visit Care Team Role Provider Type Nazia Chan Primary Care Provider PHYSICIANS COMPUTER TECHNOLOGY TRAINER Dwayne Lozada Admit Provider [facility] STAFF PHYSICIAN Attending Provider Social Determinants of Health Screening Social Determinants of Health last assessed: 08/31/24 Will the Patient Participate in the Screening?: Yes Do you worry about having a steady place to live?: no Problems where you live: no known problems In the past 12 months, have you had to go without electric, gas, oil or water in your home?: no Have you or anyone in your house had to go without enough food to eat?: no Has lack of transportation kept you from medical appointments or from doing things needed for daily living?: no Has anyone in your life made you feel unsafe or unsupported?: no How hard is it for you to pay for the very basics like food, housing, medical care, and heating? Would you say it is:: Not hard at all Do you want help finding or keeping work or a job?: I do not need or want help If for any reason you need help with day-to-day activities such as bathing, preparing meals, shopping, managing finances, etc., do you get the help you need?: I don?t need any help How often do you feel lonely or isolated from those around you?: Never Do you speak a language other than Lebanese at home?: No Does the patient want assistance with any of the above?: No PFSH All Active Problems (Updated 08/30/24 @ 15:36 by Juliann Bacon APRN) On deep vein thrombosis (DVT) prophylaxis (Acute) Right subclavian artery occlusion (Acute) Leg pain (Acute) Tracheostomy in place (Acute) Occlusion of celiac artery (Acute) Urinary tract infection (Acute) Acute and chronic respiratory failure with hypoxia (Acute) Foreign body sensation, throat (Acute) Right clavicle fracture (Acute 08/30/23) Syncope (Chronic) Ground glass opacity present on imaging of lung (Acute) Subdural hematoma (Acute) Pulmonary edema (Acute) Fracture of thumb, left, closed (Acute) Acute non-ST elevation myocardial infarction (NSTEMI) (Acute) Arm pain (Acute) Hemoptysis (Acute) Nausea & vomiting (Acute) Regurgitation of food (Acute) Pulmonary embolism (Chronic) Uses feeding tube (Acute) Gross hematuria (Acute) Ambulatory dysfunction (Acute) Leukocytosis (leucocytosis) (Acute) UTI (urinary tract infection) (Acute) Multiple subsegmental pulmonary emboli without acute cor pulmonale (Acute) C1 cervical fracture (Acute) Gastrostomy tube dysfunction (Acute) Encounter for hospice care discussion (Acute) Unintentional weight loss of 10% body weight within 6 months (Acute) Dysuria (Acute) Malfunctioning jejunostomy tube (Acute) Need for follow-up by social sciences chair (Acute) Dysphagia (Acute) Impaired instrumental activities of daily living (Acute) Plantar fascial fibromatosis (Acute) Feeding tube dysfunction (Acute) Sensorineural hearing loss (SNHL) of both ears (Acute) Otalgia of right ear (Acute) Neck pain on right side (Acute) Neck pain on right side (Acute) Full code status (Acute) Need for home health care (Acute) MRSA pneumonia (Acute) pt likely colonized Occlusion of right vertebral artery (Acute) Hypoxemia (Acute) Complication of feeding tube (Acute) Peripheral neuropathy (Acute 02/21/15) PAOD (peripheral arterial occlusive disease) (Acute) Laryngeal cancer (Acute) COPD (chronic obstructive pulmonary disease) (Chronic) 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 Routine change every 4 months. 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 Hypertension Tobacco use COPD (chronic obstructive pulmonary disease) Post herpetic neuralgia Hypothyroidism Hyperlipemia Depression Anxiety Conjunctivitis, chronic Surgical History S/P AAA (abdominal aortic aneurysm) repair Status post laryngectomy History of esophagogastroduodenoscopy (EGD) (~08/10/19) Daron Casper APRN @ [facility] [place]: hiatal hernia, GERD, Reyes's esophagitis, neuromuscular dysfunction History of laryngectomy Status post cardiac catheterization Status post cataract extraction and insertion of intraocular lens of right eye (07/12/18) History of tarsorrhaphy Status post cataract extraction and insertion of intraocular lens of left eye (04/30/12) 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) Sin-mullins button placed by Dr Elia Mcdonald, [facility] PROCEDURES RT/LEFT HEART CARD CATH COMPLETE LARYNGECTOMY Esophagoplasty EGD - MAC (07/06/17) Colonoscopy - MAC (12/22/16) History of radical laryngectomy Family History Nephew Throat cancer Maternal Cousin Cancer Social History Smoking/Tobacco Use Status: Former Tobacco Use Quit Date: 04/23/13 Tobacco: How many years used: 20 Smoking risk assessment performed?: Yes Alcohol Intake: never Drug use: Never Substance use type: does not use Housing: house Current gender identity: male Do you feel safe at home: Yes Do you feel safe in your relationship?: Yes
--- NOTE | 2024-08-31 09:44 | INITIAL_ITS ---
Care Management Initial Assmt Initial Assessment Reason for Hospitalization: transfer back from [facility] Functional Status/Living Situation Patient Presentation: Pineda was sitting up in bed when CM met with him. He had orders to be discharged and CM asked him about the need for transportation. Pineda's speech was difficult to understand but he seemed to indicate that he would return to his home with Kiara. CM contacted Kiara who agreed to transport him home. Pineda was transferred to [facility] oin 08/27/24 for vascular evaluation and respiratory distress. He was found to have a mucous plug which cleared. Pineda was evaulated by Vascular Surgery who determined that no immediate intervention was indicated. he was transferred back to [facility] yesterday and discharged home today. 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) Instrumental Activities of Daily Living (ADLs): Requires support Medications Medication Management: No Issues/Barriers identified Physical Functioning/Mobility Assistive Device: walker feeding tube/pump Advance Directives Advance Directives: Do you have an Advance Directive: Y 12/11/22 13:39 AD On File at [facility]: Y 12/11/22 13:39 Date Asked 08/29/24 08/29/24 12:10 AD Date Reviewed 08/30/24 08/30/24 12:56 COLST On File at [facility] Yes 12/11/22 13:39 COLST Date Scanned 04/13/21 12/11/22 13:39 Code Status Resuscitation Status Full Code Insurance Coverage/Financial Issues Insurance: Medicare [employer] Supplement Care Team Visit Care Team Role Provider Type Nazia Chan Primary Care Provider PHYSICIANS SILK WASHING MACHINE OPERATOR Dwayne Lozada Admit Provider [facility] STAFF PHYSICIAN Attending Provider Discharge Potential Discharge Needs: PCP F/U Appt Anticipated Barriers to Discharge: None Identified Patient/Family Education Needs: Review discharge instructions, discuss Ask Me Three Transportation: Private vehicle Plan: Anticipate Chan will be discharged home with no new services. He will follow up with his community providers and plan of care and transport with Kiara. Social Determinants of Health Screening Social Determinants of Health last assessed: 08/31/24 Will the Patient Participate in the Screening?: Yes Do you worry about having a steady place to live?: no Problems where you live: no known problems In the past 12 months, have you had to go without electric, gas, oil or water in your home?: no Have you or anyone in your house had to go without enough food to eat?: no Has lack of transportation kept you from medical appointments or from doing things needed for daily living?: no Has anyone in your life made you feel unsafe or unsupported?: no How hard is it for you to pay for the very basics like food, housing, medical care, and heating? Would you say it is:: Not hard at all Do you want help finding or keeping work or a job?: I do not need or want help If for any reason you need help with day-to-day activities such as bathing, preparing meals, shopping, managing finances, etc., do you get the help you need?: I don?t need any help How often do you feel lonely or isolated from those around you?: Never Do you speak a language other than Tunisian at home?: No Does the patient want assistance with any of the above?: No PFSH All Active Problems (Updated 08/30/24 @ 15:36 by Juliann Bacon APRN) On deep vein thrombosis (DVT) prophylaxis (Acute) Right subclavian artery occlusion (Acute) Leg pain (Acute) Tracheostomy in place (Acute) Occlusion of celiac artery (Acute) Urinary tract infection (Acute) Acute and chronic respiratory failure with hypoxia (Acute) Foreign body sensation, throat (Acute) Right clavicle fracture (Acute 08/30/23) Syncope (Chronic) Ground glass opacity present on imaging of lung (Acute) Subdural hematoma (Acute) Pulmonary edema (Acute) Fracture of thumb, left, closed (Acute) Acute non-ST elevation myocardial infarction (NSTEMI) (Acute) Arm pain (Acute) Hemoptysis (Acute) Nausea & vomiting (Acute) Regurgitation of food (Acute) Pulmonary embolism (Chronic) Uses feeding tube (Acute) Gross hematuria (Acute) Ambulatory dysfunction (Acute) Leukocytosis (leucocytosis) (Acute) UTI (urinary tract infection) (Acute) Multiple subsegmental pulmonary emboli without acute cor pulmonale (Acute) C1 cervical fracture (Acute) Gastrostomy tube dysfunction (Acute) Encounter for hospice care discussion (Acute) Unintentional weight loss of 10% body weight within 6 months (Acute) Dysuria (Acute) Malfunctioning jejunostomy tube (Acute) Need for follow-up by social organization professor (Acute) Dysphagia (Acute) Impaired instrumental activities of daily living (Acute) Plantar fascial fibromatosis (Acute) Feeding tube dysfunction (Acute) Sensorineural hearing loss (SNHL) of both ears (Acute) Otalgia of right ear (Acute) Neck pain on right side (Acute) Neck pain on right side (Acute) Full code status (Acute) Need for home health care (Acute) MRSA pneumonia (Acute) pt likely colonized Occlusion of right vertebral artery (Acute) Hypoxemia (Acute) Complication of feeding tube (Acute) Peripheral neuropathy (Acute 02/21/15) PAOD (peripheral arterial occlusive disease) (Acute) Laryngeal cancer (Acute) COPD (chronic obstructive pulmonary disease) (Chronic) 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 Routine change every 4 months. History of laryngeal cancer Chronic respiratory failure with hypoxia Pneumonia Shortness of breath Complication of feeding tube Hematoma following procedure Blockage of feeding tube Dyspnea on exertion Neurotrophic cornea of left eye Left corneal scar with opacity Cortical cataract of right eye Nuclear sclerotic cataract of right eye Posterior subcapsular age-related cataract, right eye Feeding tube dysfunction CAD (coronary artery disease) Sessile colonic polyp 12/22/16-SESSILE SERRATED ADENOMA Restless leg syndrome (02/21/15) Pulmonary nodule, right (05/30/15) on chest CT -2015: stable Primary malignant neoplasm of oropharynx ; yearly fup in Feb (last ) [facility] [place] SX: 2008 ROR: 2000 + 2008 Impingement syndrome, shoulder, left (10/10/16) -2017: PT sugg. 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 Hypertension Tobacco use COPD (chronic obstructive pulmonary disease) Post herpetic neuralgia Hypothyroidism Hyperlipemia Depression Anxiety Conjunctivitis, chronic Surgical History S/P AAA (abdominal aortic aneurysm) repair Status post laryngectomy History of esophagogastroduodenoscopy (EGD) (~08/10/19) Daron Casper APRN @ [facility] [place]: hiatal hernia, GERD, Reyes's esophagitis, neuromuscular dysfunction History of laryngectomy Status post cardiac catheterization Status post cataract extraction and insertion of intraocular lens of right eye (07/12/18) History of tarsorrhaphy Status post cataract extraction and insertion of intraocular lens of left eye (04/30/12) 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) Sin-mullins button placed by Dr Elia Mcdonald, [facility] PROCEDURES RT/LEFT HEART CARD CATH COMPLETE LARYNGECTOMY Esophagoplasty EGD - MAC (07/06/17) Colonoscopy - MAC (12/22/16) History of radical laryngectomy Family History Nephew Throat cancer Maternal Cousin Cancer Social History Smoking/Tobacco Use Status: Former Tobacco Use Quit Date: 04/23/13 Tobacco: How many years used: 20 Smoking risk assessment performed?: Yes Alcohol Intake: never Drug use: Never Substance use type: does not use Housing: house Current gender identity: male Do you feel safe at home: Yes Do you feel safe in your relationship?: Yes
--- NOTE | 2024-08-31 10:14 | DSE_ITS ---
Date of service: 08/31/24 Time of Service: 10:14 DS: Diagnosis Discharge Diagnosis (1) Right subclavian artery occlusion: Status: Acute (2) Occlusion of celiac artery: Status: Acute (3) Leg pain: Status: Acute (4) Uses feeding tube: Status: Acute (5) CAD (coronary artery disease): (6) Hypertension: (7) On deep vein thrombosis (DVT) prophylaxis: Status: Acute (8) Discharge planning issues: Status: Resolved Discharge Plan Disposition Patient Disposition: Home W/Home Health Services Condition: Improving Discharge Details Reason For Visit: Hypoxia,Arterial Occlusion Admit Date/Time: 08/30/24 11:25 Admit Provider: Dwayne Lozada Attending Provider: Dwayne Lozada Primary Care Provider: Nazia Chan Hospital Course Hospital Course: This 74 years old male patient with a PMHx of laryngeal cancer status post laryngectomy, oxygen dependent on 6 L at home via trach mask for chronic respiratory failure, bilateral subdural hematomas, COPD, feeding tube, hypothyroidism, hypertension, NSTEMI, hyperlipidemia , multiple vascular surgeries including AAA repair, remote history of EtOH use disorder returned to [facility] on 08/30/24 from from [facility] [place]p evaluation for right celiac artery stent occlusion and stenosis of the proximal right subclavian artery after initial presentation with c/o right LE pain and hypoxic respiratory failure to the ED at [facility] on 08/27/2024. At [facility], the hypoxic respiratory failure resolved and found to have been caused by possible mucous plugging without further needs for antibiotics or NIV as respiratory status was back to baseline. Transient hypotension also resolved. Vascular at [facility] recommended no surgical intervention, ongoing statin and ASA, and using the LUE for continuous BP monitoring and comparison to the RUE.They want to see the patient at their outpatient clinic for follow-up and a referral was submitted as per notes. On arrival the patient produced a copious amount of sputum and hard dry secretions were retrieved from his proximal site of his tracheostomy. Patient advised not to insert tweezers in his tracheostomy site and to use ongoing humidifier. On the day of discharge the patient was hypodermically sable, and afebrile.The patient will be discharged home with resumption of services and will need a f/u with his PCP within 7 days of discharge . Discussed with Dr. Lozada Home Meds and New Rx's Prescriptions: New aspirin [Children's Aspirin] 81 mg Tablet,Chewable 81 mg CH DAILY Qty: 30 0RF Continued acetaminophen [Tylenol Extra Strength] 500 mg tablet 1,000 mg PO BID PRN tamsulosin [Flomax] 0.4 mg capsule 0.4 mg PO DAILY Qty: 90 3RF finasteride 5 mg tablet 5 mg PO DAILY Qty: 90 3RF omeprazole 20 mg capsule,delayed release(DR/EC) 20 mg feeding tube BID Qty: 90 4RF acetylcysteine 100 mg/mL (10 %) solution 4 ml inhalation BID metoprolol succinate 25 mg tablet extended release 24 hr 25 mg PO DAILY rosuvastatin 40 mg tablet 40 mg feeding tube HS Qty: 90 4RF polyethylene glycol 3350 [Miralax] 17 gram/dose powder 17 g PO DAILY PRN (Reason: constipation) Rx Instructions: 06/19/22 instructed by PCP to take 1/2 cap daily, may reduce to half cap three times per week if daily is too much nystatin 100,000 unit/gram powder 1 applic topical BID Qty: 60 12RF sulfamethoxazole-trimethoprim 200-40 mg/5 mL suspension 5 ml PO BID 28 Days Qty: 280 6RF acetylcysteine 600 mg capsule See Rx Instructions .ROUTE .COMPLEX Qty: 60 12RF Dose Instruction: TAKE ONE CAPSULE BY MOUTH TWICE A DAY Rx Instructions: TAKE ONE CAPSULE BY MOUTH TWICE A DAY melatonin 3 MG tablet 3 mg PO HS levetiracetam 500 mg tablet 500 mg PO BID Patient Comments: TAKE ONE TABLET BY MOUTH TWICE A DAY ipratropium-albuterol 0.5 mg-3 mg(2.5 mg base)/3 mL solution for nebulization 3 ml IN BID Rx Instructions: increased dose/use treatment 4 times/day as needed NOT SENT levothyroxine 88 mcg tablet 88 mcg PO DAILY Patient Comments: TAKE ONE TABLET BY MOUTH EVERY DAY sertraline 100 mg tablet 100 mg PO DAILY Patient Comments: TAKE ONE TABLET BY MOUTH EVERY DAY ropinirole 1 mg tablet 0.5 mg PO BID Qty: 0 0RF ferrous sulfate [Feosol] 325 mg (65 mg iron) tablet 325 mg PO DAILY Align Jr 10.5 mg (10 million cell) tablet,chewable 10.5 mg PO DAILY Changed gabapentin 300 mg capsule 300 mg PO TID Qty: 360 3RF Discharge Instructions Stand Alone Forms: Nursing Discharge Form Referrals: Nazia Chan [Primary Care Provider] - 09/06/24 12:45 pm (Follow-up within 7 days of discharge- Will need f/u with [facility] vascular clinic) Activity:: Activity as Tolerated Equipment/Supplies:: Walker Diet:: Tube feeding regimen as per prior to admission and water ad lyle orally as p Discharge Orders Discharge Orders: Discharge Order (Routine); Ordered 08/31/24 Ordered By: Juliann Bacon DS: Summary Time Spent with Patient providing and/or coordinating discharge services: Greater than 30 minutes Status at Discharge Functional status at discharge: uses cane/walker Overall status at discharge: patient is progressing back to baseline Mental Status: mental status grossly normal Speech and Movement: speech and movement normal Mood: congruent mood Affect: normal affect Quality:SDOH Health Related Social Needs: No Data to Display Exam Psych Mental Status: mental status grossly normal Speech and Movement: speech and movement normal Mood: congruent mood Affect: normal affect DS: Data Vitals/I&O Vitals and I&O: Vital Signs Temperature 36.8 C 08/31/24 07:15 Temperature Source Temporal Artery Scan 08/31/24 07:15 Pulse 81 08/31/24 07:15 Pulse Rhythm Regular 08/30/24 13:35 Respiratory Rate 20 08/31/24 07:15 Respiratory Effort Normal 08/30/24 13:35 Respiratory Depth Normal 08/30/24 13:35 Respiratory Pattern Normal 08/30/24 13:35 Blood Pressure 114/79 08/31/24 07:15 Pulse Oximetry 93 08/31/24 08:23 Oxygen Delivery Method Venti Mask 08/31/24 08:23 Oxygen Flow Rate 4 08/31/24 08:23 Fraction of Inspired Oxygen (FIO2) 28 08/31/24 08:23 Pain Level 10 08/31/24 04:39 Comment RT decreased O2 from 35% to 28% on arrival to floor. Sat rechecked and pt 98% 08/30/24 13:35 Intake & Output 08/30/24 08/30/24 08/31/24 11:59 23:59 11:59 Intake Total 250 / 250 Output Total 375 / 375 750 / 750 Balance -125 / -125 -750 / -750 Weight 58.287 kg Intake: Intake, Tube Feeding Amount 250 / 250 Output: Urine 375 / 375 750 / 750 Output, Residual 0 / 0 Other: Urine Color Yellow Yellow Urine Appearance Clear Clear Urine Odor None Normal Stool Size Smear Stool Characteristics Soft Data Completed and Pending Labs on day of discharge: Labs from last 24 hours 08/31/24 06:08 WBC 12.67 H RBC 3.84 L Hgb 12.6 L Hct 39.2 L MCV 102 H MCH 32.8 MCHC 32.1 RDW 12.9 Plt Count 239 MPV 9.6 Immature Gran % 0.6 Neutrophils % 80.2 Lymphocytes % 7.4 Monocytes % 7.4 Eosinophils % 3.5 Basophils % 0.9 Nucleated RBC % 0.0 Absolute Neutrophils 10.16 H Absolute Lymphocytes 0.94 L Absolute Monocytes 0.94 H Absolute Eosinophils 0.44 Absolute Basophils 0.11 Sodium 147 H Potassium 4.0 Chloride 107 Carbon Dioxide 29.2 Anion Gap 10.8 BUN 28 H Creatinine 0.8 Est GFR (CKD-EPI 2020) 90.58 Glucose 128 H Calcium 9.2 Magnesium 2.6 PFSH All Active Problems (Updated 08/30/24 @ 15:36 by Juliann Bacon APRN) On deep vein thrombosis (DVT) prophylaxis (Acute) Right subclavian artery occlusion (Acute) Leg pain (Acute) Tracheostomy in place (Acute) Occlusion of celiac artery (Acute) Urinary tract infection (Acute) Acute and chronic respiratory failure with hypoxia (Acute) Foreign body sensation, throat (Acute) Right clavicle fracture (Acute 08/30/23) Syncope (Chronic) Ground glass opacity present on imaging of lung (Acute) Subdural hematoma (Acute) Pulmonary edema (Acute) Fracture of thumb, left, closed (Acute) Acute non-ST elevation myocardial infarction (NSTEMI) (Acute) Arm pain (Acute) Hemoptysis (Acute) Nausea & vomiting (Acute) Regurgitation of food (Acute) Pulmonary embolism (Chronic) Uses feeding tube (Acute) Gross hematuria (Acute) Ambulatory dysfunction (Acute) Leukocytosis (leucocytosis) (Acute) UTI (urinary tract infection) (Acute) Multiple subsegmental pulmonary emboli without acute cor pulmonale (Acute) C1 cervical fracture (Acute) Gastrostomy tube dysfunction (Acute) Encounter for hospice care discussion (Acute) Unintentional weight loss of 10% body weight within 6 months (Acute) Dysuria (Acute) Malfunctioning jejunostomy tube (Acute) Need for follow-up by nursing home social worker (Acute) Dysphagia (Acute) Impaired instrumental activities of daily living (Acute) Plantar fascial fibromatosis (Acute) Feeding tube dysfunction (Acute) Sensorineural hearing loss (SNHL) of both ears (Acute) Otalgia of right ear (Acute) Neck pain on right side (Acute) Neck pain on right side (Acute) Full code status (Acute) Need for home health care (Acute) MRSA pneumonia (Acute) pt likely colonized Occlusion of right vertebral artery (Acute) Hypoxemia (Acute) Complication of feeding tube (Acute) Peripheral neuropathy (Acute 02/21/15) PAOD (peripheral arterial occlusive disease) (Acute) Laryngeal cancer (Acute) COPD (chronic obstructive pulmonary disease) (Chronic) 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 Routine change every 4 months. 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 Hypertension Tobacco use COPD (chronic obstructive pulmonary disease) Post herpetic neuralgia Hypothyroidism Hyperlipemia Depression Anxiety Conjunctivitis, chronic Surgical History S/P AAA (abdominal aortic aneurysm) repair Status post laryngectomy History of esophagogastroduodenoscopy (EGD) (~08/10/19) Daron Casper APRN @ [facility]: hiatal hernia, GERD, Reyes's esophagitis, neuromuscular dysfunction History of laryngectomy Status post cardiac catheterization Status post cataract extraction and insertion of intraocular lens of right eye (07/12/18) History of tarsorrhaphy Status post cataract extraction and insertion of intraocular lens of left eye (1 06/30/11) 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) Sin-mullins button placed by Dr Elia Mcdonald, [facility] PROCEDURES RT/LEFT HEART CARD CATH COMPLETE LARYNGECTOMY Esophagoplasty EGD - MAC (07/06/17) Colonoscopy - MAC (12/22/16) History of radical laryngectomy Family History Nephew Throat cancer Maternal Cousin Cancer Social History Smoking/Tobacco Use Status: Former Tobacco Use Quit Date: 04/23/13 Tobacco: How many years used: 20 Smoking risk assessment performed?: Yes Alcohol Intake: never Drug use: Never Substance use type: does not use Housing: house Current gender identity: male Do you feel safe at home: Yes Do you feel safe in your relationship?: Yes Time Spent with Patient Time Spent with Patient: 70-84 minutes4 Time was spent: preparing to see the patient(eg.review tests), obtaining and/or reviewing separately otained hiistory, ordering medications,tests, procedures, referring, communicating with other health care transport nurse, indepentently interpreting results, counseling the patient and care coordination
[2024-08-31 10:52] VITALS: BP 108/80; PULSE 78; RESP 20; TEMP 37.2; O2SAT 96
--- NOTE | 2024-08-31 17:45 | CMDISCH_ITS ---
Date of service: 08/31/24 Time of Service: 17:45 LACE Index Scoring Tool Questions: Length of Stay (in days): 1 Was the patient admitted via the E.D.?: No Comorbidities: Previous M.I., Chronic Pulmonary Disease and Any Tumor E.D. Visits: 11 Answers: Total Score: 10 Risk of Readmission: High Risk Care Management Discharge Plan Reason for Hospitalization: transferred back from [facility] Discharge Plan: Pineda will be discharged home with a resumption of home health services for RN. He will follow up with his community providers and plan of care and transport with family. Services Needed at Discharge: Home Health Care Services SDOH Health Related Social Needs: No Data to Display
== END 2024-08-31 14:07 | disposition home health service (06) | DRG 300 ==
PROVIDERS: Nurse Practitioner Acute Care; Admitting Provider Family Medicine; PCP Physician Assistant Medical; Visit Provider Family Medicine
DX: I70.8 Atherosclerosis of other arteries (principal); J96.10 Chronic respiratory failure, unspecified whether with hypoxia or hypercapnia; Z99.81 Dependence on supplemental oxygen; J44.9 Chronic obstructive pulmonary disease, unspecified; E03.9 Hypothyroidism, unspecified; E78.5 Hyperlipidemia, unspecified; I10 Essential (primary) hypertension; I25.2 Old myocardial infarction; Z93.1 Gastrostomy status; Z93.0 Tracheostomy status; G62.9 Polyneuropathy, unspecified; Z90.02 Acquired absence of larynx; C32.9 Malignant neoplasm of larynx, unspecified; M79.605 Pain in left leg; M79.604 Pain in right leg
CPT/HCPCS: 00123; 36415; 80048; J1650; 83735; 85025; 94760; 99223; 99239

== ENCOUNTER 2024-08-31 15:52 | Inpatient (IN) | payer MEDICARE, MEDICAID, SELFPAY ==
[2024-08-31] VITALS (56 sets, daily range): BP systolic 61–204; BP diastolic 34–125; PULSE 79–136; RESP 12–30; TEMP 31–32; O2SAT 49–97
--- NOTE | 2024-08-31 15:45 | RT.EKG_ITS ---
APPROVED REPORT Exam: Resting ECG Reason for Exam: weakness Patient Location: E HR:82 bpm ECG Measurements Heart Rate 82 AXIS AK 183 P 58 QRSd 143 QRS 85 QT 413 T -22 QTc 483 Conclusion Sinus rhythm 82 RBBB no stemi
--- NOTE | 2024-08-31 16:00 | DI.CT_ITS ---
Exam(s) CT HEAD CERVICAL SPINE WO EXAM: CT HEAD CERVICAL SPINE WO CLINICAL HISTORY: trauma. TECHNIQUE: Imaging Protocol: Axial computed tomography images with coronal and sagittal reformatted images were created and reviewed COMPARISON: CT CT HEAD CERVICAL SPINE WO from 08/16/[address] HEAD CERV SPINE FACIAL WO from 06/11/[address] HEAD CERVICAL SPINE WO from 08/16/[address] THORAX ABD/PEL CTA from 08/27/2024 FINDINGS: The examination is limited due to patient motion artifact. CT Head: Ventricles and Extra axial spaces: There again seen bilateral extra-axial fluid collections consisten t with old subdural hematomas. There are stable in size. The right subdural measures 2.3 cm maximal ly. The left subdural measures 1.4 cm maximally. There is a tiny area of mild hyperdensity in the d ependent portion of the right subdural which may represent a more acute Hemorrhage: Please see the above discussion under ventricles and extra-axial spaces. Cerebral parenchyma: There are areas of decreased attenuation in the white matter consistent with chr onic microvascular ischemic disease. No acute territorial infarct is appreciated. Midline shift: None. Brainstem/Cerebellum: Normal. Calvarium: Normal. Visualized Paranasal sinuses/Mastoids: There is opacification of a few ethmoid air cells. No fluid l evels are seen in the visualized paranasal sinuses. The mastoid air cells are clear. Soft Tissues: There is soft tissue swelling overlying the left frontal bone. No radiopaque foreign b ricardo is seen. CT Cervical Spine: There is patient motion artifact. Bones: No acute fracture or subluxation. 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 There are degenerative changes seen in the cervical spine. There is reversal of the normal cervical lordos is. There is again seen 5 mm anterolisthesis of C4 on C5. Moderate to severe degenerative changes a re present throughout the cervical spine. There is a right convex curvature of the cervical spine. There is no change in appearance of the fracture in the proximal aspect of the left 1st rib. This is been mentioned on prior examinations. Soft Tissues: Unremarkable. Lung Apices: Clear. IMPRESSION: 1. Stable size of the bilateral subdural fluid collections consistent with old hematomas. 2. There is a focus of hyperdensity in the dependent portion of the right hematoma which may represen t a more acute hemorrhage. No acute midline shift or mass effect. 3. No evidence of an acute territorial infarct. 4. Findings of chronic microvascular ischemic disease. 5. No acute fractures or subluxations are seen in the cervical spine. RADIATION DOSE DELIVERED: 1,375.85mGy.cm Total DLP DATA REPOSITORY: All CT scans at this facility are submitted to the National Radiology Data Registry (NRDR) Dose Index Registry (DIR) with the [employer] (ACR). RADIATION OPTIMIZATION: All CT scans at this facility use at least one of these dose optimization te chniques: automated exposure control; mA and/or kV adjustment per patient size (includes targeted exa ms where dose is matched to clinical indication); or iterative reconstruction.
--- NOTE | 2024-08-31 16:00 | DI.RAD_ITS ---
Exam(s) XR HIP PELVIS ADULT BL EXAM: XR HIP PELVIS ADULT BL CLINICAL HISTORY: fall hip pain. TECHNIQUE: 2D digital imaging was performed of the pelvis and bilateral hips. Three images were obt ained. AP pelvis and lateral views of both hips were obtained. COMPARISON: CT CT CHEST/ABD/PEL W from 08/31/2024 FINDINGS: BONES: No acute fracture is present. No bony destructive lesion is seen. JOINTS: No dislocation present. SOFT TISSUE: Atherosclerotic calcification is seen. The distal aspects of the patient's aorta iliac stent are present. IMPRESSION: No acute fracture or dislocation. DATA REPOSITORY: RADIATION DOSE DELIVERED:
[2024-08-31 16:25] LABS: Abs Immature Grans 0.11 10^3/uL (0.0-0.06); Absolute Basophil Count 0.12 10^3/uL (0.0-0.2); Absolute Eosinophil Count 0.19 10^3/uL (0.0-0.7); Absolute Lymphocyte Count 0.57 10^3/uL (1.2-3.4); Absolute Monocyte Count 0.81 10^3/uL (0.1-0.8); Basophils % 0.9 %; Eosinophils % 1.4 %; HGB 12.9 g/dL (13.5-17.5); Immature Grans % 0.8 %; Lymphocytes % 4.3 %; MCH 32.8 pg (27.0-33.0); MCHC 31.5 % (32.0-36.0); MCV 104 fL (80-95); MPV 9.5 fL (8.0-11.0); Monocytes % 6.1 %; Neutrophils % 86.5 %; Platelet Count 246 10^3/uL (130-400); RBC 3.93 10^6/uL (4.36-5.78); RDW 12.9 % (11.8-14.1); RDW-SD 49.6 fL; WBC 13.29 10^3/uL (4.4-10.8)
[2024-08-31] MEDS: Normal Saline 1,000 ML 1000 ML IV (16:29)
[2024-08-31] MEDS: ACETAMINOPHEN 1,000 MG/100 ML BAG 400 MG IVPB (16:30)
--- NOTE | 2024-08-31 17:00 | DI.RAD_ITS ---
Exam(s) XR CHEST 1V IN DI DEPT EXAM: XR CHEST 1V IN DI DEPT CLINICAL HISTORY: weakness, fall TECHNIQUE: 2D digital imaging was performed of the chest. One image was obtained. An AP view was ob tained. COMPARISON: CR,XR XR CHEST 1V IN DI DEPT from 08/16/2024 FINDINGS: MEDIASTINUM: Normal. HEART: Normal. PULMONARY VASCULATURE: Normal. LUNGS: There is diffuse interstitial disease. No focal consolidating infiltrates are seen. PLEURAL SPACE: No pleural effusion or pneumothorax. BONE:Within normal limits for the patient's age. Old healed rib fractures are present. OTHER FINDINGS:There is again seen a stent in the distal thoracic aorta extending into the visualized proximal abdominal aorta. IMPRESSION: No acute pulmonary findings. DATA REPOSITORY: RADIATION DOSE DELIVERED:
[2024-08-31 17:02] LABS: ALT 28 U/L (16-63); AST 28 U/L (15-37); Alkaline Phosphatase 140 U/L (46-116); Anion Gap 6.6 mmol/L (3-11); BUN 26 mg/dL (7-18); Bilirubin, Total 0.4 mg/dL (0.2-1.0); CO2 33.4 mmol/L (21.0-32.0); Calcium 9.2 mg/dL (8.5-10.1); Chloride 109 mmol/L (98-107); Estimated GFR 77.04 (mL/min/1.73m2); Glucose 107 mg/dL (74-106); Potassium 3.6 mmol/L (3.5-5.1); Sodium 149 mmol/L (136-145); Total Protein 7.7 g/dL (6.4-8.2)
--- NOTE | 2024-08-31 17:15 | DI.CT_ITS ---
Exam(s) CT CHEST/ABD/PEL W EXAM: CT CHEST/ABD/PEL W CLINICAL HISTORY: TRAUMA TECHNIQUE: Imaging Protocol: Axial computed tomography images with coronal and sagittal reformatted images were created and reviewed. Lung Computer Aided Detection (CAD) was utilized. CONTRAST MATERIAL: Intravenous: Omnipaque 350 contrast volume:100 mL Oral: No COMPARISON: CT CT THORAX ABD/PEL CTA from 08/27/2024 FINDINGS: The examination is limited due to patient motion artifact. CHEST: Tracheobronchial tree: Patient has a tracheostomy. No evidence of bronchiectasis. Pulmonary parenchyma: Emphysematous changes are present in the lungs. There are increased interstiti al markings in the lung bases right greater than left. No focal consolidating infiltrates are seen. Visualized thyroid gland: The thyroid gland is not visualized. Mediastinum and Sonali: No dominant adenopathy or fluid collection. There is fluid seen in the esophagu s. There is a small hiatal hernia. Pleura: No effusion or pneumothorax. Heart: The heart is not dilated. Coronary artery calcification is present. No pericardial effusion. Pulmonary arteries: Due to the timing of the bolus, there is suboptimal opacification of the pulmonar y arteries. No large central pulmonary embolism is present. Aorta: The distal thoracic aortic stent is stable. The sclerotic calcification is present. Lymph nodes: Within normal limits. Tubes, Catheters, and Lines: The patient has a tracheostomy. Soft tissues: Unremarkable. Bones:Within normal limits for the patient's age. Again seen resection of the medial left clavicle. There is a stable old nonunited left 1st rib fracture. Postsurgical changes are seen in the distal right clavicle. There are old healed bilateral rib fractures. ABDOMEN: Liver: Normal density. No measurable mass. Portal, Superior Mesenteric, and Splenic Veins: Unremarkable. Gallbladder and Biliary Tract: Cholelithiasis. No biliary ductal dilatation. Pancreas: There is atrophy of the pancreas. No pancreatic mass or peripancreatic fluid collection is seen. Spleen: Normal. Adrenals: No masses seen. Kidneys: Normal size, contour and axis. No radiodense stones or obstructive uropathy. Stable right re nal cyst. No follow-up is recommended. Abdominal Aorta: Stable appearance of the abdominal aortic stent. No evidence of an endovascular megan k. There is a [place] infrarenal abdominal aortic aneurysm. There is again seen occlusion of the cheryl iac artery at its origin. There is also again seen occlusion of the left internal iliac artery. Bowel: The patient has a PEG tube. The bowel shows no evidence of obstruction or inflammation. Peritoneal Cavity: No ascites, collection or mesenteric inflammatory response. No free air. Lymph Nodes: Within normal limits. Bones: Within normal limits for the patient's age. There is again seen a fracture of the left sacrum likely reflecting a sacral insufficiency fracture. There are stable compression fractures of T12 an d L1. There is a stable deformity of T7 which is old. Old fracture involving the sternum. No acute fracture is identified. Soft Tissues: There is a small amount of subcutaneous air in the left anterior abdominal wall. This is of uncertain if any clinical significance. No radiopaque foreign body is identified. PELVIS: Bladder: Multiple bladder diverticula are seen. Reproductive Organs: Unremarkable as visualized. Lymph Nodes: Within normal limits. Bones: Within normal limits. IMPRESSION: 1. Persistent right basilar infiltrate. 2. No acute chest, abdominal or pelvic process since 08/27/2024. RADIATION DOSE DELIVERED: 505.91mGy.cm Total DLP DATA REPOSITORY: All CT scans at this facility are submitted to the National Radiology Data Registry (NRDR) Dose Index Registry (DIR) with the [employer] (ACR). RADIATION OPTIMIZATION: All CT scans at this facility use at least one of these dose optimization te chniques: automated exposure control; mA and/or kV adjustment per patient size (includes targeted exa ms where dose is matched to clinical indication); or iterative reconstruction.
[2024-08-31] MEDS: Normal Saline - Diluent 50 ML VIAL IJ (18:02)
[2024-08-31] MEDS: Omnipaque 350 MG/ML 100 ML BTL IJ (18:02)
--- NOTE | 2024-08-31 18:50 | RESPIRATORY ---
1645-Stoma Assessment: Patent, crusty/visible secretions at stoma, suctioned with a 10 russian catheter with moderate amount of thick white secretions resulting. Pt placed on humidification with O2 in place. Emergency Laryngectomy sign and kit at bedside.
[2024-08-31 19:30] LABS: INR 1.1 (0.9-1.1); PTT Activated 26.5 sec (20.6-30.2); Prothrombin Time 11.1 sec (9.1-11.1)
--- NOTE | 2024-08-31 19:35 | ED.GENADUL_ITS ---
Discharge Plan Disposition Patient Disposition: Admit to [facility] Condition: Serious Discharge Details Chief Complaint: Trauma Clinical Impression: Fall, Subdural hematoma, post-traumatic, Acute hypotension, Laceration of scalp, Acute hypoxemic respiratory failure Primary Care Provider: Nazia Chan ED Provider: So Whalen Home Meds and New Rx's Prescriptions: No Action acetaminophen [Tylenol Extra Strength] 500 mg tablet 1,000 mg PO BID PRN tamsulosin [Flomax] 0.4 mg capsule 0.4 mg PO DAILY Qty: 90 3RF finasteride 5 mg tablet 5 mg PO DAILY Qty: 90 3RF omeprazole 20 mg capsule,delayed release(DR/EC) 20 mg feeding tube BID Qty: 90 4RF acetylcysteine 100 mg/mL (10 %) solution 4 ml inhalation BID metoprolol succinate 25 mg tablet extended release 24 hr 25 mg PO DAILY rosuvastatin 40 mg tablet 40 mg feeding tube HS Qty: 90 4RF polyethylene glycol 3350 [Miralax] 17 gram/dose powder 17 g PO DAILY PRN (Reason: constipation) Rx Instructions: 06/19/22 instructed by PCP to take 1/2 cap daily, may reduce to half cap three times per week if daily is too much nystatin 100,000 unit/gram powder 1 applic topical BID Qty: 60 12RF sulfamethoxazole-trimethoprim 200-40 mg/5 mL suspension 5 ml PO BID 28 Days Qty: 280 6RF acetylcysteine 600 mg capsule See Rx Instructions .ROUTE .COMPLEX Qty: 60 12RF Dose Instruction: TAKE ONE CAPSULE BY MOUTH TWICE A DAY Rx Instructions: TAKE ONE CAPSULE BY MOUTH TWICE A DAY melatonin 3 MG tablet 3 mg PO HS levetiracetam 500 mg tablet 500 mg PO BID Patient Comments: TAKE ONE TABLET BY MOUTH TWICE A DAY ipratropium-albuterol 0.5 mg-3 mg(2.5 mg base)/3 mL solution for nebulization 3 ml IN BID Rx Instructions: increased dose/use treatment 4 times/day as needed NOT SENT levothyroxine 88 mcg tablet 88 mcg PO DAILY Patient Comments: TAKE ONE TABLET BY MOUTH EVERY DAY sertraline 100 mg tablet 100 mg PO DAILY Patient Comments: TAKE ONE TABLET BY MOUTH EVERY DAY ropinirole 1 mg tablet 0.5 mg PO BID Qty: 0 0RF ferrous sulfate [Feosol] 325 mg (65 mg iron) tablet 325 mg PO DAILY Align Jr 10.5 mg (10 million cell) tablet,chewable 10.5 mg PO DAILY aspirin [Children's Aspirin] 81 mg Tablet,Chewable 81 mg CH DAILY Qty: 30 0RF gabapentin 300 mg capsule 300 mg PO TID Qty: 360 3RF HPI General Date/Time Provider Initiated Documentation: 08/31/24 16:11 . Limitations to Documentation: physical limitation . Information obtained by: family, EMS and old records reviewed . HPI Narrative: 79-year-old gentleman with multiple medical comorbidities including laryngectomy, G-tube dependence, presents for follow [facility] after a fall. Patient was discharged home from the hospital a few hours ago. reports that she was taking him home and helping him in from the car. She states that they have a few steps to get up into the house and he fell. He hit his head against the door and there was an immediate fall, no loss of consciousness. There was significant bleeding from his head. She was unable to get him up on her own he reports severe right leg pain. Related Data Home Medications ?Medication ?Instructions ?Recorded ?Confirmed omeprazole 20 mg capsule,delayed 20 mg feeding tube BID #90 caps 10/05/19 08/30/24 release melatonin 3 mg tablet 3 mg PO HS 10/29/19 08/30/24 rosuvastatin 40 mg tablet 40 mg feeding tube HS #90 tabs 12/14/19 08/30/24 acetylcysteine 100 mg/mL (10 %) 4 ml inhalation BID 07/05/20 08/30/24 solution acetaminophen 500 mg tablet 1,000 mg PO BID PRN 03/05/22 08/30/24 (Tylenol Extra Strength) polyethylene glycol 3350 17 17 g PO DAILY PRN constipation 06/19/22 08/30/24 gram/dose oral powder (Miralax) nystatin 100,000 unit/gram topical 1 applic topical BID #60 grams 02/19/23 08/30/24 powder metoprolol succinate 25 mg 25 mg PO DAILY 09/02/23 08/30/24 tablet,extended release 24 hr levetiracetam 500 mg tablet 500 mg PO BID 02/17/24 08/30/24 finasteride 5 mg tablet 5 mg PO DAILY #90 tabs 03/02/24 08/30/24 tamsulosin 0.4 mg capsule (Flomax) 0.4 mg PO DAILY #90 caps 03/02/24 08/30/24 Bifidobacterium infantis 10.5 mg 10.5 mg PO DAILY 03/13/24 08/30/24 (10 million cell) chewable tablet (Align Jr) ferrous sulfate 325 mg (65 mg 325 mg PO DAILY 03/13/24 08/30/24 iron) tablet (Feosol) sulfamethoxazole 200 5 ml PO BID 28 days #280 mL 03/29/24 08/30/24 mg-trimethoprim 40 mg/5 mL oral suspension ipratropium 0.5 mg-albuterol 3 mg 3 ml IN BID shortness of breath or 08/03/24 08/30/24 (2.5 mg base)/3 mL nebulization wheezing soln acetylcysteine 600 mg capsule See Rx Instructions .Route 08/08/24 08/30/24 .COMPLEX #60 caps levothyroxine 88 mcg tablet 88 mcg PO DAILY 08/16/24 08/30/24 sertraline 100 mg tablet 100 mg PO DAILY 08/16/24 08/30/24 ropinirole 1 mg tablet 0.5 mg (1/2 x 1 mg) PO BID #0 tabs 08/17/24 08/30/24 aspirin 81 mg chewable tablet 81 mg CH DAILY #30 tabs 08/30/24 (Children's Aspirin) gabapentin 300 mg capsule 300 mg PO TID #360 caps 08/30/24 08/30/24 Previous Rx's ?Medication ?Instructions ?Recorded omeprazole 20 mg capsule,delayed 20 mg feeding tube BID #90 caps 10/05/19 release rosuvastatin 40 mg tablet 40 mg feeding tube HS #90 tabs 12/14/19 nystatin 100,000 unit/gram topical 1 applic topical BID #60 grams 02/19/23 powder finasteride 5 mg tablet 5 mg PO DAILY #90 tabs 03/02/24 tamsulosin 0.4 mg capsule (Flomax) 0.4 mg PO DAILY #90 caps 03/02/24 sulfamethoxazole 200 5 ml PO BID 28 days #280 mL 03/29/24 mg-trimethoprim 40 mg/5 mL oral suspension acetylcysteine 600 mg capsule See Rx Instructions .Route 08/08/24 .COMPLEX #60 caps ropinirole 1 mg tablet 0.5 mg (1/2 x 1 mg) PO BID #0 tabs 08/17/24 aspirin 81 mg chewable tablet 81 mg CH DAILY #30 tabs 08/30/24 (Children's Aspirin) gabapentin 300 mg capsule 300 mg PO TID #360 caps 08/30/24 Allergies Allergy/AdvReac Type Severity Reaction Status Date / Time pollen extracts Allergy Mild Wheezing Verified 08/27/24 20:55 Tetracyclines Allergy Unknown SKIN RASH Verified 08/27/24 20:55 General Stated Complaint: Trauma CHER: 2 Exam Narrative Exam Narrative: Review of Systems: All systems reviewed & are unremarkable except as noted in HPI and below Ill-appearing Stellate laceration over the left adventism measuring 5 cm with Nonbleeding stoma and anterior neck Hypotensive no hypoxia, no increased work of breathing Nondistended abdomen G-tube in place Tenderness to palpation of bilateral hips, pelvis stable, Course Vital Signs Vital signs: Vital Signs Pulse 95 H 08/31/24 15:54 Respiratory Rate 30 H 08/31/24 15:54 Blood Pressure 61/34 L 08/31/24 15:54 Pulse 110 H 08/31/24 18:19 Pulse 110 H 08/31/24 18:20 Respiratory Rate 21 08/31/24 18:20 Blood Pressure 130/80 08/31/24 18:52 Blood Pressure Mean 136 08/31/24 18:19 Pulse Oximetry 94 08/31/24 18:18 Oxygen Delivery Method Venti Mask 08/31/24 16:55 Oxygen Flow Rate 60 08/31/24 18:18 Fraction of Inspired Oxygen (FIO2) 40 08/31/24 18:18 Pain Level 5 08/31/24 18:22 Comment RT coming to suction 08/31/24 16:40 Lab/Test Results Lab/Test Results: Laboratory Tests Range/Units 08/31/24 16:18 WBC (4.4-10.8) 10^3/uL 13.29 H RBC (4.36-5.78) 10^6/uL 3.93 L Hgb (13.5-17.5) g/dL 12.9 L Hct (40.0-50.0) % 41.0 MCV (80-95) fL 104 H MCH (27.0-33.0) pg 32.8 MCHC (32.0-36.0) % 31.5 L RDW (11.8-14.1) % 12.9 Plt Count (130-400) 10^3/uL 246 MPV (8.0-11.0) fL 9.5 Immature Gran % % 0.8 Neutrophils % % 86.5 Lymphocytes % % 4.3 Monocytes % % 6.1 Eosinophils % % 1.4 Basophils % % 0.9 Nucleated RBC % (0.0-0.3) % 0.0 Absolute Neutrophils (1.2-6.7) 10^3/uL 11.50 H Absolute Lymphocytes (1.2-3.4) 10^3/uL 0.57 L Absolute Monocytes (0.1-0.8) 10^3/uL 0.81 H Absolute Eosinophils (0.0-0.7) 10^3/uL 0.19 Absolute Basophils (0.0-0.2) 10^3/uL 0.12 PT (9.1-11.1) sec 11.1 INR (0.9-1.1) 1.1 APTT (20.6-30.2) sec 26.5 Sodium (136-145) mmol/L 149 H Potassium (3.5-5.1) mmol/L 3.6 Chloride (98-107) mmol/L 109 H Carbon Dioxide (21.0-32.0) mmol/L 33.4 H Anion Gap (3-11) mmol/L 6.6 BUN (7-18) mg/dL 26 H Creatinine (0.70-1.30) mg/dL 1.0 Est GFR (CKD-EPI 2020) (mL/min/1.73m2) 77.04 Glucose (74-106) mg/dL 107 H Calcium (8.5-10.1) mg/dL 9.2 Total Bilirubin (0.2-1.0) mg/dL 0.4 AST (15-37) U/L 28 ALT (16-63) U/L 28 Alkaline Phosphatase (46-116) U/L 140 H Total Protein (6.4-8.2) g/dL 7.7 Albumin (3.4-5.0) g/dL 3.0 L Procedure Laceration Laceration 1: Site: scalp Side (If applicable): left Description: stellate Depth: simple, single layer Local anesthetic: Lidocaine 1% and with Epi Amount of anesthesia used (mL): 10 Pre-repair:: wound explored and irrigated extensively Skin layer closed with: graeme Number of sutures:: 8 Medical Decision Making Emergent evaluation after a fall. Patient was discharged from the hospital near 2 hours ago when he was attempting to get into his house when he fell fairly significantly struck his head. He has obvious signs of head trauma. He did not lose consciousness and she is in at this time and has a normal mental status. He has daily aspirin use. And patient did receive Lovenox injection prior to discharge this morning. Shortly after arrival in the emergency department, the patient's hypotension persisted, he became fairly agitated and severely hypoxic. He pulled out his own mucous plug, but this did not alleviate symptoms. Oxygen saturations were significantly low and did not improve with trach collar. He is well-known to respiratory therapy at this departmenT. Patient was placed on high flow with 60 L flow and increased FiO2 to maintain oxygen saturations. This time he had a significant increased work of breathing, accessory muscle use. He seemed to be slightly disoriented. It was unclear to me whether or not this was secondary to his acute head injury or significant hypoxia. Once IV access was reestablished because during this episode, the patient did rip out his IV, and he was stabilized from a respiratory standpoint he was taken over to CT for imaging. C-spine, chest abdomen pelvis imaging was obtained. Unclear etiology of the fall whether this was syncope or vasovagal or just generalized weakness. The hypotension is very concerning but has improved with IV fluids. Though have a low suspicion for an intra thoracic or intra-abdominal trauma, I was concerned with this acute respiratory collapse that there may be pulmonary contusion or rib fracture or pneumothorax that occurred during the fall, but this was not determined to be found on imaging. There is also no hip fracture despite his pain, and on chart review it does seem that this pain in the right lower extremity have been ongoing from his last admission. The patient head CT was concerning for an acute on chronic subdural bleeding. Given that the patient had received aspirin and Lovenox earlier in the day prior to discharge, I did consider reversal. His GCS was 15. I was able to speak with neurosurgery at [facility] who is very familiar with this patient and has been following him for quite some time for his chronic subdurals. They have reviewed the imaging and compared to priors and they do not feel that this bleeding is significantly changed from his prior imaging. They do not recommend reversal at this time. They do recommend repeat head CT in 6 hours. If stable, patient can resume daily aspirin and other treatment as indicated. The scalp laceration was repaired with graeme. Patient tolerated this repair well. Given his ongoing respiratory support needs at this time, the patient will be readmitted to the hospital for further management. The is requesting conversation with palliative care as she and daughter are very concerned that it may no be safe to take him home any longer. Quality:SD[facility] Health Related Social Needs: No Data to Display Critical Care Time Critical Care Time Critical Care Time: Yes Total Critical Care Time: 36 Attestation: CRITICAL CARE Upon my evaluation, this patient had a high probability of imminent or life- threatening deterioration due to trauma, hypotension, respiratory failure which required my direct attention, intervention, and personal management. I have personally provided 36 minutes of critical care time exclusive of time spent on separately billable procedures. Time includes review of laboratory data, radiology results, discussion with consultants, and monitoring for potential decompensation. Interventions were performed as documented above [facility] All Active Problems (Updated 08/31/24 @ 21:42 by So Whalen MD) Acute hypoxemic respiratory failure (Acute) Laceration of scalp (Acute) Acute hypotension (Acute) Fall (Acute) Subdural hematoma, post-traumatic (Acute) Hypernatremia (Acute) On deep vein thrombosis (DVT) prophylaxis (Acute) Right subclavian artery occlusion (Acute) Leg pain (Acute) Tracheostomy in place (Acute) Occlusion of celiac artery (Acute) Urinary tract infection (Acute) Acute and chronic respiratory failure with hypoxia (Acute) Foreign body sensation, throat (Acute) Right clavicle fracture (Acute 08/30/23) Syncope (Chronic) Ground glass opacity present on imaging of lung (Acute) Subdural hematoma (Acute) Pulmonary edema (Acute) Fracture of thumb, left, closed (Acute) Acute non-ST elevation myocardial infarction (NSTEMI) (Acute) Arm pain (Acute) Hemoptysis (Acute) Nausea & vomiting (Acute) Regurgitation of food (Acute) Pulmonary embolism (Chronic) Uses feeding tube (Acute) Gross hematuria (Acute) Ambulatory dysfunction (Acute) Leukocytosis (leucocytosis) (Acute) UTI (urinary tract infection) (Acute) Multiple subsegmental pulmonary emboli without acute cor pulmonale (Acute) C1 cervical fracture (Acute) Gastrostomy tube dysfunction (Acute) Encounter for hospice care discussion (Acute) Unintentional weight loss of 10% body weight within 6 months (Acute) Dysuria (Acute) Malfunctioning jejunostomy tube (Acute) Need for follow-up by social insurance analyst (Acute) Dysphagia (Acute) Impaired instrumental activities of daily living (Acute) Plantar fascial fibromatosis (Acute) Feeding tube dysfunction (Acute) Sensorineural hearing loss (SNHL) of both ears (Acute) Otalgia of right ear (Acute) Neck pain on right side (Acute) Neck pain on right side (Acute) Full code status (Acute) Need for home health care (Acute) MRSA pneumonia (Acute) pt likely colonized Occlusion of right vertebral artery (Acute) Hypoxemia (Acute) Complication of feeding tube (Acute) Peripheral neuropathy (Acute 02/21/15) PAOD (peripheral arterial occlusive disease) (Acute) Laryngeal cancer (Acute) COPD (chronic obstructive pulmonary disease) (Chronic) 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 Routine change every 4 months. 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 Hypertension Tobacco use COPD (chronic obstructive pulmonary disease) Post herpetic neuralgia Hypothyroidism Hyperlipemia Depression Anxiety Conjunctivitis, chronic Surgical History S/P AAA (abdominal aortic aneurysm) repair Status post laryngectomy History of esophagogastroduodenoscopy (EGD) (~08/10/19) Daron Casper APRN @ [facility] [place]: hiatal hernia, GERD, Reyes's esophagitis, neuromuscular dysfunction History of laryngectomy Status post cardiac catheterization Status post cataract extraction and insertion of intraocular lens of right eye (07/12/18) History of tarsorrhaphy Status post cataract extraction and insertion of intraocular lens of left eye (04/30/12) 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) Sin-mullins button placed by Dr Elia Mcdonald, [facility] PROCEDURES RT/LEFT HEART CARD CATH COMPLETE LARYNGECTOMY Esophagoplasty EGD - MAC (07/06/17) Colonoscopy - MAC (12/22/16) History of radical laryngectomy Family History Nephew Throat cancer Maternal Cousin Cancer Social History Smoking/Tobacco Use Status: Former Tobacco Use Quit Date: 04/23/13 Tobacco: How many years used: 20 Smoking risk assessment performed?: Yes Alcohol Intake: never Drug use: Never Substance use type: does not use Housing: house Current gender identity: male Do you feel safe at home: Yes Do you feel safe in your relationship?: Yes
[2024-08-31] MEDS: Hydrogen Peroxide 3% 480 ML BTL (19:45)
[2024-08-31] MEDS: Lidocaine 1% Pres-Free W/EPI 1/200,000 30 ML VIAL (19:52)
--- NOTE | 2024-08-31 19:56 | NUR.NOTE ---
1930 provider at bedside for suturing Nursing Note:
[2024-08-31 21:25] LABS: BE (Venous) 4 mmol/L (-2-3); HCO3 (Venous) 29 mmol/L (23-28); O2 Sat (Venous) 95 %; TCO2 (Venous) 26 mmol/L (24-29); pCO2 (Venous) 44 mmHg (41-51); pH (Venous) 7.42 (7.31-7.41); pO2 (Venous) 70 mmHg
--- NOTE | 2024-08-31 21:32 | W.PM.HP.N ---
Date of service: 08/31/24 Time of Service: 21:32 Assessment and Plan Assessment and plan (1) Subdural hematoma, post-traumatic: Status: Acute Assessment and plan: Significant fall with question of small area of acute bleeding into old hematoma on right. No clear neurologic deficits, but exam limited as not cooperating Imaging and case reviewed by [facility]. They are not convinced there is any acute bleed, but recommend repeating the CT in 6 hours. If any evolution they will reconsider neurosurgical intervention. If f/u imaging does not reveal any change, can resume aspirin/anticoagulation as indicated. His persistence on going back to the ED is odd. He doesn't seem confused or delusional otherwise. Seems behavioral rather than neurologic. Observe closely in ICU (2) Acute and chronic respiratory failure with hypoxia: Status: Acute Assessment and plan: Without a clear new focal infection. This is typically relate to mucous plugging. Working with RTs who know him well now. Will admit to ICU for close supportive care. I don't think antibiotics or steroids indicated. (3) PAOD (peripheral arterial occlusive disease): Status: Acute Assessment and plan: Newly noted on last admission right subclavian and celiac arteries without clear symtoms. Continue statin, resume ASA after second CT if reassuring as above. (4) Hypernatremia: Status: Acute Assessment and plan: Likely related to not being able to take free water. Resume tube feeds, can give some additional free water. Follow. (5) On deep vein thrombosis (DVT) prophylaxis: Status: Acute Assessment and plan: TEDs/SCDs pending f/u CT as above. 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 His partner/caregiver took him home and was helping him from the car to the door of their home. He fell taking the few steps up to the door and slammed his head against the door and fell to the ground. Significant bleeding from his head and right leg pain were noted immediately. No LOC. In the emergency room he had an episode of hypotension, agitation, and hypoxia. He pulled out a mucous plug but did not immediately improve. He recieved IV fluids and respiratory support and he eventually stabilized. His scalp was stapled and the bleeding stopped. CT was initially concerning for new bleeing in his old hematoma, but [facility] neurosurgery did not feel this was actually any new bleeding. Currently he denies any pain, focal weakness/numbness, SOB, chest pain, or fevers when asked directly. He doesn't give additional history when asked, but perseverating about wanting to return back downstairs to the emergency room. He likes it better down there than on the floor, though he is not able to articulate why. Review of Systems All systems reviewed & are unremarkable except as noted in HPI and below Constitutional Constitutional: Denies headache(s) Eyes Eyes: Denies loss of vision ENT Ears, Nose, Mouth, and Throat: Denies dizziness and Denies headache(s) Respiratory Respiratory: Denies hemoptysis Comments: normal chronic phlegm. Neurologic Neurologic: Denies dizziness, Denies headache(s), Denies localized weakness, Denies loss of vision, Denies memory loss, Denies seizure-like activity and Denies tremor(s) Psychiatric Psychiatric: Denies memory loss PFSH All Active Problems Acute hypoxemic respiratory failure (Acute) Laceration of scalp (Acute) Acute hypotension (Acute) Fall (Acute) Subdural hematoma, post-traumatic (Acute) Hypernatremia (Acute) On deep vein thrombosis (DVT) prophylaxis (Acute) Right subclavian artery occlusion (Acute) Leg pain (Acute) Tracheostomy in place (Acute) Occlusion of celiac artery (Acute) Urinary tract infection (Acute) Acute and chronic respiratory failure with hypoxia (Acute) Foreign body sensation, throat (Acute) Right clavicle fracture (Acute 08/30/23) Syncope (Chronic) Ground glass opacity present on imaging of lung (Acute) Subdural hematoma (Acute) Pulmonary edema (Acute) Fracture of thumb, left, closed (Acute) Acute non-ST elevation myocardial infarction (NSTEMI) (Acute) Arm pain (Acute) Hemoptysis (Acute) Nausea & vomiting (Acute) Regurgitation of food (Acute) Pulmonary embolism (Chronic) Uses feeding tube (Acute) Gross hematuria (Acute) Ambulatory dysfunction (Acute) Leukocytosis (leucocytosis) (Acute) UTI (urinary tract infection) (Acute) Multiple subsegmental pulmonary emboli without acute cor pulmonale (Acute) C1 cervical fracture (Acute) Gastrostomy tube dysfunction (Acute) Encounter for hospice care discussion (Acute) Unintentional weight loss of 10% body weight within 6 months (Acute) Dysuria (Acute) Malfunctioning jejunostomy tube (Acute) Need for follow-up by social media manager (Acute) Dysphagia (Acute) Impaired instrumental activities of daily living (Acute) Plantar fascial fibromatosis (Acute) Feeding tube dysfunction (Acute) Sensorineural hearing loss (SNHL) of both ears (Acute) Otalgia of right ear (Acute) Neck pain on right side (Acute) Neck pain on right side (Acute) Full code status (Acute) Need for home health care (Acute) MRSA pneumonia (Acute) pt likely colonized Occlusion of right vertebral artery (Acute) Hypoxemia (Acute) Complication of feeding tube (Acute) Compression fracture of thoracolumbar vertebra (Acute) PAOD (peripheral arterial occlusive disease) (Acute) Dependence on supplemental oxygen (Chronic) COPD (chronic obstructive pulmonary disease) (Chronic) Peripheral neuropathy (Acute 02/21/15) Laryngeal cancer (Acute) 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 (Acute) Medical History Recurrent syncope Laceration of occipital region of scalp Fall Orthostatic hypotension Palliative care patient Caregiver stress Advance care planning Weakness G tube feedings 20F 3.0cm 11/30/22. Routine change every 4 months. History of laryngeal cancer Chronic respiratory failure with hypoxia Pneumonia Shortness of breath Complication of feeding tube Hematoma following procedure Blockage of feeding tube Dyspnea on exertion Neurotrophic cornea of left eye Left corneal scar with opacity Cortical cataract of right eye Nuclear sclerotic cataract of right eye Posterior subcapsular age-related cataract, right eye Feeding tube dysfunction CAD (coronary artery disease) Sessile colonic polyp 12/22/16-SESSILE SERRATED ADENOMA Restless leg syndrome (02/21/15) Pulmonary nodule, right (05/30/15) on chest CT -2016: stable Primary malignant neoplasm of oropharynx ; yearly fup in Feb (last ) [facility] SX: 2007 ROR: 2000 + 2007 Impingement syndrome, shoulder, left (10/10/16) -2017: PT yomaira. 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 Hypertension Tobacco use COPD (chronic obstructive pulmonary disease) Post herpetic neuralgia Hypothyroidism Hyperlipemia Depression Anxiety Conjunctivitis, chronic Surgical History S/P AAA (abdominal aortic aneurysm) repair Status post laryngectomy History of esophagogastroduodenoscopy (EGD) (~08/10/19) Daron Casper APRN @ [facility]: hiatal hernia, GERD, Reyes's esophagitis, neuromuscular dysfunction History of laryngectomy Status post cardiac catheterization Status post cataract extraction and insertion of intraocular lens of right eye (07/12/18) History of tarsorrhaphy Status post cataract extraction and insertion of intraocular lens of left eye (04/30/12) 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) Sin-mullins button placed by Dr Elia Mcdonald, [facility] PROCEDURES RT/LEFT HEART CARD CATH COMPLETE LARYNGECTOMY Esophagoplasty EGD - MAC (07/06/17) Colonoscopy - MAC (12/22/16) History of radical laryngectomy Family History Nephew Throat cancer Maternal Cousin Cancer Social History (Updated 08/31/24 @ 23:12 by Dwayne Lozada) Smoking/Tobacco Use Status: Former Tobacco Use Quit Date: 04/23/13 Tobacco: How many years used: 20 Smoking risk assessment performed?: Yes Alcohol Intake: never Drug use: Never Substance use type: does not use Housing: house Current gender identity: male Do you feel safe at home: Yes Do you feel safe in your relationship?: Yes Additional Social history: Lives with partner/caregiver Kiara caraballo in [facility] Allergies and Home Medications Allergies Allergy/AdvReac Type Severity Reaction Status Date / Time pollen extracts Allergy Mild Wheezing Verified 08/27/24 20:55 Tetracyclines Allergy Unknown SKIN RASH Verified 08/27/24 20:55 Home Medications ?Medication ?Instructions ?Recorded ?Confirmed ?Type omeprazole 20 mg capsule,delayed 20 mg feeding tube BID #90 caps 10/05/19 08/30/24 Rx release melatonin 3 mg tablet 3 mg PO HS 10/29/19 08/30/24 History rosuvastatin 40 mg tablet 40 mg feeding tube HS #90 tabs 12/14/19 08/30/24 Rx acetylcysteine 100 mg/mL (10 %) 4 ml inhalation BID 07/05/20 08/30/24 History solution acetaminophen 500 mg tablet 1,000 mg PO BID PRN 03/05/22 08/30/24 History (Tylenol Extra Strength) polyethylene glycol 3350 17 17 g PO DAILY PRN constipation 06/19/22 08/30/24 History gram/dose oral powder (Miralax) nystatin 100,000 unit/gram topical 1 applic topical BID #60 grams 02/19/23 08/30/24 Rx powder metoprolol succinate 25 mg 25 mg PO DAILY 09/02/23 08/30/24 History tablet,extended release 24 hr levetiracetam 500 mg tablet 500 mg PO BID 02/17/24 08/30/24 History finasteride 5 mg tablet 5 mg PO DAILY #90 tabs 03/02/24 08/30/24 Rx tamsulosin 0.4 mg capsule (Flomax) 0.4 mg PO DAILY #90 caps 03/02/24 08/30/24 Rx Bifidobacterium infantis 10.5 mg 10.5 mg PO DAILY 03/13/24 08/30/24 History (10 million cell) chewable tablet (Align Jr) ferrous sulfate 325 mg (65 mg 325 mg PO DAILY 03/13/24 08/30/24 History iron) tablet (Feosol) sulfamethoxazole 200 5 ml PO BID 28 days #280 mL 03/29/24 08/30/24 Rx mg-trimethoprim 40 mg/5 mL oral suspension ipratropium 0.5 mg-albuterol 3 mg 3 ml IN BID shortness of breath or 08/03/24 08/30/24 History (2.5 mg base)/3 mL nebulization wheezing soln acetylcysteine 600 mg capsule See Rx Instructions .Route 08/08/24 08/30/24 Rx .COMPLEX #60 caps levothyroxine 88 mcg tablet 88 mcg PO DAILY 08/16/24 08/30/24 History sertraline 100 mg tablet 100 mg PO DAILY 08/16/24 08/30/24 History ropinirole 1 mg tablet 0.5 mg (1/2 x 1 mg) PO BID #0 tabs 08/17/24 08/30/24 Rx aspirin 81 mg chewable tablet 81 mg CH DAILY #30 tabs 08/30/24 Rx (Children's Aspirin) gabapentin 300 mg capsule 300 mg PO TID #360 caps 08/30/24 08/30/24 Rx Exam Narrative Exam Narrative: GENERAL: Alert and oriented, no acute distress. Speaks with synthesizer and writes on whiteboard tablet HEENT: Normocephalic, stapled hemostatic laceration left congregation/parietal scalp. PERRL/EOMI. no icterus. MOUTH: MMM, slight white film on tongue. NECK: Supple, no masses, Trachea midline. Tracheostomy. CV: Regular rate and rhythm, Normal s1 and s2. No murmurs, rubs, or gallops. CHEST: Chest symmetric with respirations. Lungs are clear to auscultation bilaterally. ABDOMEN: Soft, nondistended, nontender. PEG tube, site without surrounding erythema or drainage EXT: symmetric. 2+ capillary refill. No extremity edema. legs not tender. BACK: No abrasions, skin openings, or ecchymosis. Spine without bony tenderness, no step offs. MSK: No gross deformities, no redness or swelling NEURO: CN grossly intact other than ptosis left. Moving extremities normally. He does not cooperate with exam as he seems upset about being taken from the ED. SKIN: Warm and well perfused. No rash Results Imaging Chest x-ray: report reviewed (No acute pulmonary findings. ) and image reviewed Imaging Studies: CT C/A/P: 1. Persistent right basilar infiltrate. 2. No acute chest, abdominal or pelvic process since 08/27/2024. XR pelvis: No acute fracture or dislocation CT head/cervical spine: 1. Stable size of the bilateral subdural fluid collections consistent with old hematomas. 2. There is a focus of hyperdensity in the dependent portion of the right hematoma which may represent a more acute hemorrhage. No acute midline shift or mass effect. 3. No evidence of an acute territorial infarct. 4. Findings of chronic microvascular ischemic disease. 5. No acute fractures or subluxations are seen in the cervical spine. Labs 08/31/24 16:18 08/31/24 16:18 Labs: Laboratory Results - last 24 hr 08/31/24 08/31/24 16:18 21:21 WBC 13.29 H RBC 3.93 L Hgb 12.9 L Hct 41.0 MCV 104 H MCH 32.8 MCHC 31.5 L RDW 12.9 Plt Count 246 MPV 9.5 Immature Gran % 0.8 Neutrophils % 86.5 Lymphocytes % 4.3 Monocytes % 6.1 Eosinophils % 1.4 Basophils % 0.9 Nucleated RBC % 0.0 Absolute Neutrophils 11.50 H Absolute Lymphocytes 0.57 L Absolute Monocytes 0.81 H Absolute Eosinophils 0.19 Absolute Basophils 0.12 PT 11.1 INR 1.1 APTT 26.5 VBG pH 7.42 H VBG pCO2 44 VBG pO2 70 VBG HCO3 29 H VBG Total CO2 26 VBG O2 Saturation 95 VBG Base Excess 4 H Sodium 149 H Potassium 3.6 Chloride 109 H Carbon Dioxide 33.4 H Anion Gap 6.6 BUN 26 H Creatinine 1.0 Est GFR (CKD-EPI 2020) 77.04 Glucose 107 H Calcium 9.2 Total Bilirubin 0.4 AST 28 ALT 28 Alkaline Phosphatase 140 H Total Protein 7.7 Albumin 3.0 L Last Vital Signs Pulse 98 H 08/31/24 19:46 Resp 23 08/31/24 19:46 BP 158/84 H 08/31/24 19:46 Pulse Ox 94 08/31/24 19:46 Time Spent Time spent with Patient: >75 minutes Time was spent: preparing to see the patient(eg.review tests), obtaining and/or reviewing separately otained hiistory, ordering medications,tests, procedures, referring, communicating with other health childcare director, indepentently interpreting results, counseling the patient and care coordination
--- NOTE | 2024-08-31 21:33 | NUR.NOTE ---
PT requested and was given socks Nursing Note:
--- NOTE | 2024-08-31 23:40 | DI.CT_ITS ---
Exam(s) CT HEAD WO EXAM: CT HEAD WO CLINICAL HISTORY: traum a. TECHNIQUE: Imaging Protocol: Axial computed tomography images with coronal and sagittal reformatted images were created and reviewed COMPARISON: CT CT HEAD WO from 03/04/[address] HEAD CERVICAL SPINE WO from 08/31/2024 FINDINGS: Ventricles and Extra axial spaces: Ventricles are unchanged in size and appearance. bilateral subdur al hematomas again noted, right greater than left. There is increased density within both subdural h ematomas indicating acute hemorrhage superimposed on chronic hemorrhage. Cerebral parenchyma: No evidence of acute infarct or mass. Underlying atrophy and small vessel dise ase. Stable appearance of a basement of the sulci bilaterally, right greater than left. Midline shift: Mild midline shift right to left 4 millimeters chain be slightly increased when compar ed with the prior exam. Brainstem/Cerebellum: Normal. Calvarium: Right frontal isra hole. No visible acute fracture. Visualized Paranasal sinuses: mild ethmoid sinus disease. Mastoids: Clear. Soft Tissues: skin graeme over left frontal region. ORBITS: Chronic left orbital retinal detachment. PITUITARY: Not enlarged. IMPRESSION: Bilateral subdural hematomas are not visibly changed in size. There is increased attenuation indicat ing a small amount of superimposed acute hemorrhage. Mild [id number] midline shift. RADIATION DOSE DELIVERED: 1,601.72mGy.cm Total DLP DATA REPOSITORY: All CT scans at this facility are submitted to the National Radiology Data Registry (NRDR) Dose Index Registry (DIR) with the [employer] (A[employer]). RADIATION OPTIMIZATION: All CT scans at this facility use at least one of these dose optimization te chniques: automated exposure control; mA and/or kV adjustment per patient size (includes targeted exa ms where dose is matched to clinical indication); or iterative reconstruction.
[2024-09-01] VITALS (27 sets, daily range): BP systolic 65–147; BP diastolic 52–114; PULSE 66–105; RESP 9–46; TEMP 36.7–37.3; O2SAT 92–98
--- NOTE | 2024-09-01 00:08 | DI.VRAD_ITS ---
Addendum created by Lon Hurst MD on 09/01/2024 12:14:10 AM EDT: COMMENT: THIS REPORT CONTAINS FINDINGS THAT MAY BE CRITICAL TO PATIENT CARE. The exam findings were verbally communicated by me to Dr. Lozada via telephone conference at 12:13 AM EDT on 09/01/2024. The findings were acknowledged and understood. Initial report created on 09/01/2024 12:08:19 AM EDT: PROCEDURE INFORMATION: Exam: CT Head Without Contrast Exam date and time: 08/31/2024 11:26 PM Age: 79 years old Clinical indication: Injury or trauma; Blunt trauma (contusions or hematomas); Consciousness not specified; Injury date: 08/31/24; Fall, trauma TECHNIQUE: Imaging protocol: Computed tomography of the head without contrast. Radiation optimization: All CT scans at this facility use at least one of these dose optimization techniques: automated exposure control; mA and/or kV adjustment per patient size (includes targeted exams where dose is matched to clinical indication); or iterative reconstruction. COMPARISON: CT HEAD CERVICAL SPINE WO 08/31/2024 5:32 PM FINDINGS: Brain: Bilateral subdural hemorrhages are identified which are essentially unchanged in appearance when compared to the prior study. The density of the hemorrhages suggests acute superimposed on subacute. Right-sided subdural hemorrhage is larger in size than the left. There is mild midline shift to the left measuring 4 mm. Midline shift is slightly increased when compared to the prior study. Chronic periventricular small-vessel ischemic changes are identified. Cerebral ventricles: No ventriculomegaly. Paranasal sinuses: Incidental note is made of chronic bilateral ethmoid sinus disease. Mastoid air cells: Visualized mastoid air cells are well aerated. Bones: Unremarkable. No acute fracture. Soft tissues: Unremarkable. IMPRESSION: 1. Bilateral subdural hemorrhages essentially stable in size when compared to the prior study as detailed above. 2. Mild midline shift to the left measuring 4 mm minimally increased when compared to the prior study Dictated and Authenticated by: Lon Hurst MD. Orderin Marlee Dinero MD
[2024-09-01] MEDS: rOPINIRole 1 MG TAB (04:21)
[2024-09-01] MEDS: Levothyroxine 88 MCG TAB PO (05:39)
[2024-09-01 07:05] LABS: Abs Immature Grans 0.05 10^3/uL (0.0-0.06); Absolute Basophil Count 0.08 10^3/uL (0.0-0.2); Absolute Eosinophil Count 0.08 10^3/uL (0.0-0.7); Absolute Lymphocyte Count 0.96 10^3/uL (1.2-3.4); Absolute Monocyte Count 0.92 10^3/uL (0.1-0.8); Basophils % 0.7 %; Eosinophils % 0.7 %; HCT 38.2 % (40.0-50.0); HGB 12.1 g/dL (13.5-17.5); Immature Grans % 0.4 %; Lymphocytes % 8.6 %; MCH 32.3 pg (27.0-33.0); MCHC 31.7 % (32.0-36.0); MCV 102 fL (80-95); MPV 10.1 fL (8.0-11.0); Monocytes % 8.2 %; Neutrophils % 81.4 %; Platelet Count 228 10^3/uL (130-400); RBC 3.75 10^6/uL (4.36-5.78); RDW 12.9 % (11.8-14.1); RDW-SD 48.3 fL; WBC 11.16 10^3/uL (4.4-10.8)
[2024-09-01 07:10] LABS: Absolute Neutrophil Count 9.08 10^3/uL (1.2-6.7)
[2024-09-01 07:28] LABS: Anion Gap 10.5 mmol/L (3-11); BUN 18 mg/dL (7-18); CO2 28.5 mmol/L (21.0-32.0); CREATININE 0.7 mg/dL (0.70-1.30); Chloride 107 mmol/L (98-107); Estimated GFR 94.31 (mL/min/1.73m2); Glucose 113 mg/dL (74-106); Potassium 3.7 mmol/L (3.5-5.1); Sodium 146 mmol/L (136-145)
--- NOTE | 2024-09-01 08:26 | W.PC.ACHO ---
Registration Status: Primary Language: Preferred Language: ED Information & Data Chief Complaint Trauma 08/31/24 19:58 Triage Note fall with head strike, also 08/31/24 15:54 c/o of left leg pain reported he looked weak then fell Medical / Surgical History (Last Reviewed 08/31/24 @ 23:11 by Dwayne Lozada) On deep vein thrombosis (DVT) prophylaxis Recurrent syncope Laceration of occipital region of scalp Fall Orthostatic hypotension Palliative care patient Caregiver stress Advance care planning Weakness G tube feedings History of laryngeal cancer Chronic respiratory failure with hypoxia Pneumonia Shortness of breath Complication of feeding tube Hematoma following procedure Blockage of feeding tube Dyspnea on exertion Neurotrophic cornea of left eye Left corneal scar with opacity Cortical cataract of right eye Nuclear sclerotic cataract of right eye Posterior subcapsular age-related cataract, right eye Feeding tube dysfunction CAD (coronary artery disease) Sessile colonic polyp Restless leg syndrome (02/21/15) Pulmonary nodule, right (05/30/15) Primary malignant neoplasm of oropharynx Impingement syndrome, shoulder, left (10/10/16) Hypothyroidism (11/18/12) Hyperlipidemia (11/18/12) History of tobacco use History of alcoholism Herpes zoster Depressive disorder (11/18/12) 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/17) Aphonia Anxiety 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) Hypertension Tobacco use COPD (chronic obstructive pulmonary disease) Post herpetic neuralgia Hypothyroidism Hyperlipemia Depression Anxiety Conjunctivitis, chronic (Last Reviewed 08/31/24 @ 23:11 by Dwayne Lozada) S/P AAA (abdominal aortic aneurysm) repair Status post laryngectomy History of esophagogastroduodenoscopy (EGD) (~08/10/19) History of laryngectomy Status post cardiac catheterization Status post cataract extraction and insertion of intraocular lens of right eye (07/12/18) History of tarsorrhaphy Status post cataract extraction and insertion of intraocular lens of left eye (04/30/12) 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) PROCEDURES EGD - MAC (07/06/17) Colonoscopy - MAC (12/22/16) History of radical laryngectomy Most Recent Vital Signs Temperature 36.9 C 09/01/24 00:21 Temperature Source Tympanic 09/01/24 00:21 Pulse 84 09/01/24 06:01 Pulse 84 09/01/24 06:01 Respiratory Rate 14 03/20/25 06:01 Respiratory Effort Non-Labored 09/01/24 00:21 Respiratory Depth Normal 09/01/24 00:21 Respiratory Pattern Normal 09/01/24 00:21 Blood Pressure 122/85 09/01/24 06:01 Blood Pressure Mean 98 09/01/24 06:01 Blood Pressure Position Supine 09/01/24 00:21 Pulse Oximetry 95 09/01/24 06:01 Oxygen Delivery Method High Flow System 09/01/24 00:21 Oxygen Flow Rate 60 09/01/24 00:21 Fraction of Inspired Oxygen (FIO2) 31 09/01/24 00:21 Pain Level 5 08/31/24 18:22 Comment RT coming to suction 08/31/24 16:40 Allergies pollen extracts Allergy (Mild, Verified 08/27/24 20:55) Wheezing Tetracyclines Allergy (Unknown, Verified 08/27/24 20:55) SKIN RASH Precautions Isolation Fall precaution 08/31/24 18:22 Active Medications Generic Name Dose Route Start Last Admin Trade Name Rico PRN Reason Stop Dose Admin Albuterol/Ipratropium 3 ml 08/31/24 22:00 09/01/24 06:42 Albuterol/Ipratropium 3 Ml Upd Vial IH Not Given Q6H MYA Levothyroxine Sodium 88 mcg 09/01/24 05:35 09/01/24 05:39 Levothyroxine 88 Mcg Tab PO 88 mcg DAILY AM MYA Administration IV IV Catheter Type [Left Wrist] Saline Lock IV Catheter Type [Right Wrist] Saline Lock IV Catheter Type [Right Peripheral IV Forearm] IV Catheter Gauge [Left Wrist] 20 IV Catheter Gauge [Right Wrist 20 ] IV Catheter Gauge [Right 18 Forearm] Diet Orders Category Date Time Status Tube Feeding [DIET] Nutrition 09/01/24 Breakfast Active Diagnostics 09/01/24 08/31/24 08/31/24 Range/Units 05:40 21:21 16:18 WBC 11.16 H 13.29 H (4.4-10.8) 10^3/uL RBC 3.75 L 3.93 L (4.36-5.78) 10^6/uL Hgb 12.1 L 12.9 L (13.5-17.5) g/dL Hct 38.2 L 41.0 (40.0-50.0) % MCV 102 H 104 H (80-95) fL MCH 32.3 32.8 (27.0-33.0) pg MCHC 31.7 L 31.5 L (32.0-36.0) % RDW 12.9 12.9 (11.8-14.1) % Plt Count 228 246 (130-400) 10^3/uL MPV 10.1 9.5 (8.0-11.0) fL Immature Gran % 0.4 0.8 % Neutrophils % 81.4 86.5 % Lymphocytes % 8.6 4.3 % Monocytes % 8.2 6.1 % Eosinophils % 0.7 1.4 % Basophils % 0.7 0.9 % Nucleated RBC % 0.0 0.0 (0.0-0.3) % Absolute Neutrophils 9.08 H 11.50 H (1.2-6.7) 10^3/uL Absolute Lymphocytes 0.96 L 0.57 L (1.2-3.4) 10^3/uL Absolute Monocytes 0.92 H 0.81 H (0.1-0.8) 10^3/uL Absolute Eosinophils 0.08 0.19 (0.0-0.7) 10^3/uL Absolute Basophils 0.08 0.12 (0.0-0.2) 10^3/uL PT 11.1 (9.1-11.1) sec INR 1.1 (0.9-1.1) APTT 26.5 (20.6-30.2) sec VBG pH 7.42 H (7.31-7.41) VBG pCO2 44 (41-51) mmHg VBG pO2 70 mmHg VBG HCO3 29 H (23-28) mmol/L VBG Total CO2 26 (24-29) mmol/L VBG O2 Saturation 95 % VBG Base Excess 4 H (-2-3) mmol/L Sodium 146 H 149 H (136-145) mmol/L Potassium 3.7 3.6 (3.5-5.1) mmol/L Chloride 107 109 H (98-107) mmol/L Carbon Dioxide 28.5 33.4 H (21.0-32.0) mmol/L Anion Gap 10.5 6.6 (3-11) mmol/L BUN 18 26 H (7-18) mg/dL Creatinine 0.7 1.0 (0.70-1.30) mg/dL Est GFR (CKD-EPI 2020) 94.31 77.04 (mL/min/1.73m2) Glucose 113 H 107 H (74-106) mg/dL Calcium 9.0 9.2 (8.5-10.1) mg/dL Total Bilirubin 0.4 (0.2-1.0) mg/dL AST 28 (15-37) U/L ALT 28 (16-63) U/L Alkaline Phosphatase 140 H (46-116) U/L Total Protein 7.7 (6.4-8.2) g/dL Albumin 3.0 L (3.4-5.0) g/dL Intake and Output - 24 Hour Total 08/31/24 15:38 thru 09/01/24 07:05 Intake Total 1020 Output Total 875 Balance 145 Weight 58.3 kg Intake: IV 1020 Output: Urine 875 Other: Urine Color Yellow Urine Appearance Clear Urine Odor Normal Comment A single small clot was visible within urinal. Falls Risk Assessment History of Falls Admit Due to Fall 09/01/24 00:21 Contributing Factors Confusion 09/01/24 00:21 Ambulatory Aids Uses ambulatory device 09/01/24 00:21 Tubes/Lines With any additional score 09/01/24 00:21 Gait Evaluation W/no contributing factors 09/01/24 00:21 Cognition Cognitive impairment 09/01/24 00:21 Fall Total Score 88 09/01/24 00:21 Level of Risk Maximum Risk 09/01/24 00:21 Problems (Last Reviewed 08/31/24 @ 23:11 by Dwayne Lozada) Acute hypoxemic respiratory failure (Acute) Laceration of scalp (Acute) Acute hypotension (Acute) Fall (Acute) Subdural hematoma, post-traumatic (Acute) Hypernatremia (Acute) Acute and chronic respiratory failure with hypoxia (Acute) PAOD (peripheral arterial occlusive disease) (Acute) Notes 08/31/24 21:33 Nursing Notes by Vlad Lynch PT requested and was given socks Nursing Note: Initialized on 08/31/24 21:33 - END OF NOTE 08/31/24 19:56 Nursing Notes by Vlad Lynch 1930 provider at bedside for suturing Nursing Note: Initialized on 08/31/24 19:56 - END OF NOTE 08/31/24 18:50 Respiratory by Patti Carter [id number]-Stoma Assessment: Patent, crusty/visible secretions at stoma, suctioned with a 10 pashto catheter with moderate amount of thick white secretions resulting. Pt placed on humidification with O2 in place. Emergency Laryngectomy sign and kit at bedside. Initialized on 08/31/24 18:50 - END OF NOTE v v v v v v v v v Sending and/or Receiving Nurses: Please use comment section below to note any information pertinent to the patient hand-off not included above. Information / Comments: Report received from: Rachel Lynhc RN all questions answered: yes
--- NOTE | 2024-09-01 08:34 | INITIAL_ITS ---
Date of service: 09/01/24 Time of Service: 08:34 Care Management Initial Assmt Initial Assessment Reason for Hospitalization: subdural hematoma Functional Status/Living Situation Patient Presentation: Pineda was discharged home yesterday afternoon but fell on his way into his house. EMS was called and he was brought back to [facility]. In the ED there was a question of a new subdural hematoma or an increase in one he already had. [facility] [place] and reviewed the images. They did not feel there was a new injury but advised he be observed and have repeat imaging if changes were noted. CM spoke with Pineda's long time warp tester Kiara this morning. She expressed concerns about taking Pineda home again. His fall frightened her and she is concerned for his safety at home and her ability to care for him. She informed CM that she hoped he would be able to go to a SNF for short term rehab before returning home. A PT evaluation was ordered but Pineda complained of pain in his left foot and was unable to participate. An Xray of his foot was ordered to rule out a fracture from the fall. Pineda was lying in bed when CM met with him. He was awake and alert and agreeable to conversation. CM explained that she had spoken with Kiara this morning and that she was concerned about his safety. CM asked if Pineda would be willing to go to a SNF for short term rehab prior to returning home and he agreed. He did ask if he could just have home health PT but CM reported that at this point, a SNF would be better. Again, he agreed. Kiara shared that he had been in rehab before and had a bad experience. CM reported that there are many facilities in [place] and he did not have to return to the one he was in before. CM assured Kiara that referrals will be sent to any facilities they choose once the PT evaluation has been completed. Town of Residence: [place] Resides with: Spouse (Kiara - long time warp tester) Significant Other/Family: Local Employment Status: Retired Instrumental Activities of Daily Living (ADLs): Requires support Physical Functioning/Mobility Assistive Device: walker Advance Directives Advance Directives: Do you have an Advance Directive: Y 12/11/22 13:39 AD On File at [facility]: Y 12/11/22 13:39 Date Asked 08/29/24 08/29/24 12:10 AD Date Reviewed 08/31/24 08/31/24 16:01 COLST On File at [facility] Yes 12/11/22 13:39 COLST Date Scanned 04/13/21 12/11/22 13:39 Code Status Resuscitation Status Full Code Insurance Coverage/Financial Issues Insurance: Medicare A[employer] Supplement Care Team Visit Care Team Role Provider Type Nazia Chan Primary Care Provider [employer]IL[employer] BIOSTATION RESEARCH ECOLOGIST InPatient Kayode Ying Other Providers OTHER So Whalen MD Emergency Provider [facility] STAFF PHYSICIAN Dwayne Lozada Admit Provider [facility] STAFF PHYSICIAN Attending Provider Discharge Potential Discharge Needs: PCP F/U Appt Anticipated Barriers to Discharge: SDOH (per report, girlfriend stated that she cannot care for Pineda anymore) Patient/Family Education Needs: Review discharge instructions, discuss Ask Me Three Transportation: Other (to be determined by disposition) Plan: Anticipate Chan will be transferred to a SNF for short term rehab prior to returning home. He will follow up with the facility providers and plan of care. Transportation will be determined by disposition. CM will follow and continue to assess for discharge planning concerns. Social Determinants of Health Screening Will the Patient Participate in the Screening?: Unable to obtain PFSH All Active Problems (Updated 09/01/24 @ 00:03 by AMI MENDEZ) Acute hypoxemic respiratory failure (Acute) Laceration of scalp (Acute) Acute hypotension (Acute) Fall (Acute) Subdural hematoma, post-traumatic (Acute) Hypernatremia (Acute) Right subclavian artery occlusion (Acute) Leg pain (Acute) Tracheostomy in place (Acute) Occlusion of celiac artery (Acute) Urinary tract infection (Acute) Acute and chronic respiratory failure with hypoxia (Acute) Foreign body sensation, throat (Acute) Right clavicle fracture (Acute 08/30/23) Syncope (Chronic) Ground glass opacity present on imaging of lung (Acute) Subdural hematoma (Acute) Pulmonary edema (Acute) Fracture of thumb, left, closed (Acute) Acute non-ST elevation myocardial infarction (NSTEMI) (Acute) Arm pain (Acute) Hemoptysis (Acute) Nausea & vomiting (Acute) Regurgitation of food (Acute) Pulmonary embolism (Chronic) Uses feeding tube (Acute) Gross hematuria (Acute) Ambulatory dysfunction (Acute) Leukocytosis (leucocytosis) (Acute) UTI (urinary tract infection) (Acute) Multiple subsegmental pulmonary emboli without acute cor pulmonale (Acute) C1 cervical fracture (Acute) Gastrostomy tube dysfunction (Acute) Encounter for hospice care discussion (Acute) Unintentional weight loss of 10% body weight within 6 months (Acute) Dysuria (Acute) Malfunctioning jejunostomy tube (Acute) Need for follow-up by social media analyst (Acute) Dysphagia (Acute) Impaired instrumental activities of daily living (Acute) Plantar fascial fibromatosis (Acute) Feeding tube dysfunction (Acute) Sensorineural hearing loss (SNHL) of both ears (Acute) Otalgia of right ear (Acute) Neck pain on right side (Acute) Neck pain on right side (Acute) Full code status (Acute) Need for home health care (Acute) MRSA pneumonia (Acute) pt likely colonized Occlusion of right vertebral artery (Acute) Hypoxemia (Acute) Complication of feeding tube (Acute) Peripheral neuropathy (Acute 02/21/15) PAOD (peripheral arterial occlusive disease) (Acute) Laryngeal cancer (Acute) COPD (chronic obstructive pulmonary disease) (Chronic) 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 Routine change every 4 months. History of laryngeal cancer Chronic respiratory failure with hypoxia Pneumonia Shortness of breath Complication of feeding tube Hematoma following procedure Blockage of feeding tube Dyspnea on exertion Neurotrophic cornea of left eye Left corneal scar with opacity Cortical cataract of right eye Nuclear sclerotic cataract of right eye Posterior subcapsular age-related cataract, right eye Feeding tube dysfunction CAD (coronary artery disease) Sessile colonic polyp 12/22/16-SESSILE SERRATED ADENOMA Restless leg syndrome (02/21/15) Pulmonary nodule, right (05/30/15) on chest CT -2015: stable Primary malignant neoplasm of oropharynx ; yearly fup in Feb (last ) [facility] [place] ROR: 2000 + 2007 Impingement syndrome, shoulder, left (10/10/16) -2017: PT sugg. 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 Hypertension Tobacco use COPD (chronic obstructive pulmonary disease) Post herpetic neuralgia Hypothyroidism Hyperlipemia Depression Anxiety Conjunctivitis, chronic Surgical History S/P AAA (abdominal aortic aneurysm) repair Status post laryngectomy History of esophagogastroduodenoscopy (EGD) (~08/10/19) Daron Casper [place]N [place] [facility] hiatal hernia, GERD, Reyes's esophagitis, neuromuscular dysfunction History of laryngectomy Status post cardiac catheterization Status post cataract extraction and insertion of intraocular lens of right eye (07/12/18) History of tarsorrhaphy Status post cataract extraction and insertion of intraocular lens of left eye (04/30/12) 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) Sin-mullins button placed by Dr Elia Mcdonald, [facility] PROCEDURES RT/LEFT HEART CARD CATH COMPLETE LARYNGECTOMY Esophagoplasty EGD - MAC (07/06/17) Colonoscopy - MAC (12/22/16) History of radical laryngectomy Family History Nephew Throat cancer Maternal Cousin Cancer Social History (Updated 08/31/24 @ 23:12 by Dwayne Lozada) Smoking/Tobacco Use Status: Former Tobacco Use Quit Date: 04/23/13 Tobacco: How many years used: 20 Smoking risk assessment performed?: Yes Alcohol Intake: never Drug use: Never Substance use type: does not use Housing: house Current gender identity: male Do you feel safe at home: Yes Do you feel safe in your relationship?: Yes Additional Social history: Lives with partner/caregiver Kiara caraballo in [place]
--- NOTE | 2024-09-01 09:37 | PGE_ITS ---
Date of Service Date of service: 09/01/24 Time of Service: 09:37 Assessment and Plan Assessment and plan (1) Subdural hematoma, post-traumatic: Status: Acute Assessment and plan: Significant fall with question of small area of acute bleeding into old hematoma on right. No clear neurologic deficits, but exam limited as not cooperating Imaging and case reviewed by [facility] Neurosurgery. They are not convinced there is any acute bleed, but recommend repeating the CT in 6 hours. If any evolution they will reconsider neurosurgical intervention. If f/u imaging does not reveal any change, can resume aspirin/anticoagulation as indicated. His persistence on going back to the ED is odd. He doesn't seem confused or delusional otherwise. Seems behavioral rather than neurologic. Observe closely in ICU 09/01/24 Per my discussion with Dr Yepez this am, he discussed the case with NS at [facility] who aren't seeing any changes from baseline. At this point, there doesn't appear to be any reason for transfer for acute interventions. Will continue to monitor mental status in the ICU (2) Acute and chronic respiratory failure with hypoxia: Status: Acute Assessment and plan: Without a clear new focal infection. This is typically relate to mucous plugging. Working with RTs who know him well now. Will admit to ICU for close supportive care. I don't think antibiotics or steroids indicated. As mentioned above, trying to see where the info about mrsa positive screen is at. Not in microbiology at least on my screen (3) PAOD (peripheral arterial occlusive disease): Status: Acute Assessment and plan: Newly noted on last admission right subclavian and celiac arteries without clear symtoms. Continue statin, resume ASA after second CT if reassuring as above. Will restart asa (4) Hypernatremia: Status: Acute Assessment and plan: Likely related to not being able to take free water. Resume tube feeds, can give some additional free water. Follow. 09/01/24 Resolved (5) On deep vein thrombosis (DVT) prophylaxis: Assessment and plan: TEDs/SCDs pending f/u CT as above. Subjective Subjective Interval history since last seen: Pt seen and examined. POC d/w pt as well as with bedside nurse during ICU huddle. Infectious disease nurse also webex that the pt is MRSA positive. Trying to verify where she is seeing this particular infor Exam Narrative Exam Narrative: GENERAL: Alert and oriented, no acute distress. HEENT: Normocephalic, stapled hemostatic laceration left cheondoism/parietal scalp. PERRL/EOMI. no icterus. MOUTH: MMM, slight white film on tongue. NECK: Supple, no masses, Trachea midline. Tracheostomy. CV: Regular rate and rhythm, Normal s1 and s2. No murmurs, rubs, or gallops. CHEST: Chest symmetric with respirations. Lungs are clear to auscultation bilaterally. ABDOMEN: Soft, nondistended, nontender. PEG tube, site without surrounding erythema or drainage EXT: symmetric. 2+ capillary refill. No extremity edema. legs not tender. BACK: No abrasions, skin openings, or ecchymosis. Spine without bony tenderness, no step offs. MSK: No gross deformities, no redness or swelling NEURO: CN grossly intact other than ptosis left. Moving extremities normally. He does not cooperate with exam as he seems upset about being taken from the ED. SKIN: Warm and well perfused. No rash Objective Last Vital Signs Temp 36.9 C 09/01/24 00:21 Pulse 84 09/01/24 06:01 Resp 14 09/01/24 06:01 BP 122/85 09/01/24 06:01 Pulse Ox 96 09/01/24 08:47 Laboratory Results - last 24 hr 08/31/24 08/31/24 09/01/24 16:18 21:21 05:40 WBC 13.29 H 11.16 H RBC 3.93 L 3.75 L Hgb 12.9 L 12.1 L Hct 41.0 38.2 L MCV 104 H 102 H MCH 32.8 32.3 MCHC 31.5 L 31.7 L RDW 12.9 12.9 Plt Count 246 228 MPV 9.5 10.1 Immature Gran % 0.8 0.4 Neutrophils % 86.5 81.4 Lymphocytes % 4.3 8.6 Monocytes % 6.1 8.2 Eosinophils % 1.4 0.7 Basophils % 0.9 0.7 Nucleated RBC % 0.0 0.0 Absolute Neutrophils 11.50 H 9.08 H Absolute Lymphocytes 0.57 L 0.96 L Absolute Monocytes 0.81 H 0.92 H Absolute Eosinophils 0.19 0.08 Absolute Basophils 0.12 0.08 PT 11.1 INR 1.1 APTT 26.5 VBG pH 7.42 H VBG pCO2 44 VBG pO2 70 VBG HCO3 29 H VBG Total CO2 26 VBG O2 Saturation 95 VBG Base Excess 4 H Sodium 149 H 146 H Potassium 3.6 3.7 Chloride 109 H 107 Carbon Dioxide 33.4 H 28.5 Anion Gap 6.6 10.5 BUN 26 H 18 Creatinine 1.0 0.7 Est GFR (CKD-EPI 2020) 77.04 94.31 Glucose 107 H 113 H Calcium 9.2 9.0 Total Bilirubin 0.4 AST 28 ALT 28 Alkaline Phosphatase 140 H Total Protein 7.7 Albumin 3.0 L Time Spent with Patient Time Spent with Patient: 25-34 minutes Time was spent: preparing to see the patient(eg.review tests), obtaining and/or reviewing separately otained hiistory, ordering medications,tests, procedures, referring, communicating with other health child care development specialist, indepentently interpreting results, counseling the patient and care coordination
[2024-09-01] MEDS: Normal Saline Flush 10 ML SYR IVP ×2 (10:04→21:11)
[2024-09-01] MEDS: Nystatin POWDER 15 GM JAR TP (10:04)
[2024-09-01] MEDS: Finasteride 5 MG TAB NG (10:07)
[2024-09-01] MEDS: levETIRAcetam Oral Solution 100 MG/ML 500 MG NG ×2 (10:07→21:09)
[2024-09-01] MEDS: Gabapentin 300 MG CAP NG ×3 (10:07→21:07)
[2024-09-01] MEDS: Metoprolol 12.5 MG TAB NG ×2 (10:08→21:08)
[2024-09-01] MEDS: Albuterol/Ipratropium 3 ML UPD VIAL IH ×2 (10:20→15:36)
[2024-09-01] MEDS: Sertraline 100 MG TAB NG (11:03)
[2024-09-01] MEDS: Acetaminophen Solution 650 MG/20.3 ML CUP 1000 MG NG (11:04)
[2024-09-01] MEDS: Sulfameth/Trimeth 40-8 mg per ml 5 ML NG ×2 (11:28→21:09)
--- NOTE | 2024-09-01 12:14 | W.NUTCONSULT ---
Date of service: 09/01/24 Time of Service: 12:14 Nutritional Consult ASSESSMENT: Mr. Nevarez is presents again after just having been discharged with subdural hematoma. His serum sodium is mildly elevated at 147. He may not have been getting his tube feeding regimen in it's entirety just with being in and out of the hospital for the past couple days. His weight is 58.3 kg which is quite stable over the past 6 months. He is 65 so his BMI is 22 kg/m2 which is acceptable given his weight stability and his physical condition. Mr. Nevarez has been on a long standing tube regimen of Nutren 2.0 (960 ml over 12 hours overnight from 2000h to 0800h). This regimen provides 1920 kcals, 77 grams of protein, and 675 ml of free water. It just barely provides 100% of his micronutrient needs. Mr. Nevarez's estimated energy needs are between 1700 kcals and 2000 kcals/day based on 30-35 kcal/kg/day to maintain his current weight. He may have times when he is on the higher end of the range but whatever he has been doing has been maintaining his weight. Estimated protein needs are 70 -75 grams per day based on 1.2-1.3 g/kg/day. Estimated fluid needs are approximately 1800 ml/day based on 30 ml/kg/day or 1 ml per kcal provisions per day. He requires an additional 1100 ml of fluid per day in the form of flushes to maintain adequate hydration as well as electrolyte balance. NUTRITIONAL DIAGNOSIS: Inability to take oral foods and fluids requiring tube feeding to sustain his life. Inadequate free fluid intake as evidenced by hypernatremia. INTERVENTION: Would recommend that we continue Mr. Nevarez's feeding regimen as he does at home. There is no need to ramp up the feeds to goal as he is stable on his feeding for a long time. Nutren 2.0 @ 80 ml/hr x 12 hours from 2000h to 0800 h daily. Free water flushes ad lyle and with meds and before and after feedings for a total of 1100 ml/day (perhaps 6 to 8 - 150 ml flushes daily (in a 24 hour period). MONITORING AND EVALUATION: 1. Will monitor weight, electrolytes, and tolerance to feeding. 2. Will evaluate nutrition care plan ongoing and adjust as needed. Thank you for allowing me to consult in this patient's care. Time Spent in Nutritional Counseling and Treatment: 30 minutes
--- NOTE | 2024-09-01 12:21 | NUR.NOTE ---
Nursing Note: Nutrition consult placed by this RN in order to have them review current tube feed order and make changes as needed. The current order lacks a free water amount, the type of feed, and the goal rate. Tube feed not initiated for this reason. Awaiting new orders.
[2024-09-01] MEDS: MORPHine 2 MG/ML SYR IVP (13:50)
--- NOTE | 2024-09-01 15:04 | DI.RAD_ITS ---
Exam(s) XR FOOT LT COMPLETE EXAM: XR FOOT LT COMPLETE CLINICAL HISTORY: left foot pain. TECHNIQUE: 2D digital imaging was performed. Three views. Portable. COMPARISON: CR,XR XR FOOT RT COMPLETE from 03/06/2024 FINDINGS: Exam is mildly limited by overlying material. BONES: No acute fracture is present. No bony destructive lesion is seen. JOINTS: No dislocation present. Severe hammertoe deformities. SOFT TISSUE: Vascular calcifications. IMPRESSION: Hammertoe deformities. No acute abnormality. DATA REPOSITORY: RADIATION DOSE DELIVERED:
[2024-09-01] MEDS: Normal Saline 500 ML IV (16:30)
--- NOTE | 2024-09-01 16:35 | IN_ITS ---
PT Notes Visit Reasons: Respiratory failure, Trauma Physical Therapy Day Surgery Initial Evaluation Date: 09/01/2024 Referring Doctor: Dr Lozada PT Orders: PT CONSULT: Fall Safety consult for d/c Precautions: NPO, PEG Tube, oxygen 4L/Min via trach collar Patient Profile/Admitting Diagnosis: Pt is a 79 yo male presented to ED hours after d/c from Hospital. Pt was entering his home and fell forward striking his head, Head CT noted SDH with possible new bleed at old hematoma on the right[place] [facility] [place] and recommended repeat Head CT on 09/01/24. Pt received graeme to his head and transferred to ICU for medical monitoring . Repeat CT revealed B SDH small amount of superimposed acute at hematoma with mild midline shift right to left. PMHX: Recurrent syncope (Acute) Laceration of occipital region of scalp (Acute) Foreign body sensation, throat (Acute) Fall (Acute) Orthostatic hypotension (Acute) Right clavicle fracture (Acute 08/30/23) Syncope (Chronic) Ground glass opacity present on imaging of lung (Acute) Subdural hematoma (Acute) Pulmonary edema (Acute) Fracture of thumb, left, closed (Acute) Acute non-ST elevation myocardial infarction (NSTEMI) (Acute) Arm pain (Acute) Palliative care patient (Acute) Hemoptysis (Acute) Caregiver stress (Acute) Nausea & vomiting (Acute) Regurgitation of food (Acute) Pulmonary embolism (Chronic) Uses feeding tube (Acute) Gross hematuria (Acute) Ambulatory dysfunction (Acute) Leukocytosis (leucocytosis) (Acute) UTI (urinary tract infection) (Acute) Multiple subsegmental pulmonary emboli without acute cor pulmonale (Acute) C1 cervical fracture (Acute) Gastrostomy tube dysfunction (Acute) Advance care planning (Acute) Encounter for hospice care discussion (Acute) Unintentional weight loss of 10% body weight within 6 months (Acute) Dysuria (Acute) Malfunctioning jejunostomy tube (Acute) Need for follow-up by social services analyst (Acute) Dysphagia (Acute) Weakness (Acute) Impaired instrumental activities of daily living (Acute) Plantar fascial fibromatosis (Acute) Feeding tube dysfunction (Acute) Sensorineural hearing loss (SNHL) of both ears (Acute) Otalgia of right ear (Acute) Neck pain on right side (Acute) Neck pain on right side (Acute) Full code status (Acute) Need for home health care (Acute) MRSA pneumonia (Acute)pt likely colonized Occlusion of right vertebral artery (Acute) Hypoxemia (Acute) Complication of feeding tube (Acute) G tube feedings (Acute) 20F 3.0cm 11/30/22.Routine change every 4 months. Compression fracture of thoracolumbar vertebra (Acute) PAOD (peripheral arterial occlusive disease) (Acute) Dependence on supplemental oxygen (Chronic) COPD (chronic obstructive pulmonary disease) (Chronic) Peripheral neuropathy (Acute 02/21/15) Laryngeal cancer (Acute) 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 (Acute) Medical History History of laryngeal cancer Chronic respiratory failure with hypoxia Pneumonia Shortness of breath Complication of feeding tube Hematoma following procedure Blockage of feeding tube Dyspnea on exertion Neurotrophic cornea of left eye Left corneal scar with opacity Cortical cataract of right eye Nuclear sclerotic cataract of right eye Posterior subcapsular age-related cataract, right eye Feeding tube dysfunction CAD (coronary artery disease) 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 Hypertension Tobacco use COPD (chronic obstructive pulmonary disease) Post herpetic neuralgia Hypothyroidism Hyperlipemia Depression Anxiety Anemia Conjunctivitis, chronic Surgical History S/P AAA (abdominal aortic aneurysm) repair Status post laryngectomy History of esophagogastroduodenoscopy (EGD) (~08/10/19) Daron Casper [place] [facility], GERD, Reyes's esophagitis, neuromuscular dysfunctionHistory of laryngectomy Status post cardiac catheterization Status post cataract extraction and insertion of intraocular lens of right eye (07/12/18) History of tarsorrhaphy Status post cataract extraction and insertion of intraocular lens of left eye (04/30/12) 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 . Pt reports Kiara assists him at home.and drives to appointments. He states he does not use oxygen from the time he leaves the car to the time he gets up all the stairs . Equipment Owned/DME: FWW oxygen, tube feeding Subjective: Pt reports he is having pain in his left leg. He states it started after his fall. Objective: General Observation: frail thin elderly male upright in bed, Mental Status: A+OX4, pt able to communicate with use of electrolarynx and writing d/t laryngeal CA. Pt agreeable to evaluation but declined OOB assessment d/t pain Pain: denies Vital Signs: supine 92/66 sit: 87/63, stand 63/45 (Nurse present and HISTOTECHNOLOGIST notified) pt denies s/s of orhtostatic Oxygen at 4L/Min FiO2 28 trach collar sats 92% Pain:left foot 8/10 ROM: [] Right Upper Extremity: WFL Left Upper Extremity: WFL Right Lower Extremity:WFL except DF to neutral shortened hamstring length hammer toes noted Left Lower Extremity: WFL except DF to neutral shortened hamstring length; hammer toes noted Strength: [] Right Upper Extremity: 3/5 Left Upper Extremity: 3/5 Right Lower Extremity: grossly 3-/5 Left Lower Extremity: grossly 2+/5 Sensation: intact Bed Mobility/Transfers: [] Supine to sit mod A for trunk Sit to supine min assist Sit to stand unable pending medical assessment of LLE Stand to sit unable pending medical assessment of LLE Bed to chair unable pending medical assessment of LLE Gait:unable to assess awaiting MD assessment LLE Stairs Unable to assess Balance: [] Static Sitting: Fair-increase lean to the right Dynamic Sitting: Poor plus Static Standing: not assessed d/t pain in LLE Dynamic Standing: not assessed d/t pain left LE Special Tests: [] Mobility Limitations Standardized Measure [] [facility] AM-PAC 6 clicks Basic Mobility Inpatient Short Form: [] Raw Score: 10 CMS Score: 76.75% Informed Consent/Education: Patient instructed in purpose of PT consult. Packet containing [] exercise protocol has been given to patient. Education and training on initial set of exercises that can be done at home have been completed with patient. Assessment: Pt presents with increased pain in his Left lower leg /foot. Pt continuously rubbing and withdraws foot to palpation of toes. 4th and 5th tips of toes with reddened areas close to nail. Will await xray of left foot as pt unwilling to attempt stand or transfers d/t pain. Nurse notified. Patient requiring mod assist to sustain sitting at edge of bed due to increased lean to the right difficult to sustain midline position. Despite patient's inability to participate in out of bed/functional transfers patient would benefit from SNF placement due to recurrent history of falls ,weakness and current need for assistance with bed mobility. Out of bed assessment will be completed pending medical assessment of left lower extremity. Patient presents with clinical signs and symptoms consistent with current/admitting diagnoses that have resulted to mobility limitations, gait instability, generalized weakness, and impairment of motor control as demonstrated by the following impairment level findings: 1. Decreased strength to BUE/ BLE major muscle groups 2. Impaired standing balance 3. decline in functional activity tolerance 4. impaired breath control/ pacing 5. pain LLE 6. MRSA precautions Impairments are contributing to the following functional limitations: 1. Inability to safely ambulate without assistive device 2. Increase completion time for mobility ADL performance 3. Increased fall risk 4. decline in bed moility skills 5. decline in transfer skills 6. inability to perform stairs without assistance Patient is assessed as a moderate complexity based on the following: History: 79-year-old male with impairment level findings, functional limitations, and past medical history as indicated above Examination: Demonstrable impairment in strength, balance, and mobility level with underlying impairments and functional limitations as documented above Presentation: evolving Decision Making: moderate Goals: 1. supervision bed mobility 2. supervision transfers with FWW 3. Supervision ambulation with FWW 150 feet level surfaces 4. CGA 13 steps with rail to safely enter and exit home Plan of Care/Treatment Plan: Out of bed assessment to be completed next session. 1-2x/day, 7 days/week x 1 week. Plan of care has been reviewed with the EMERGENCY MEDICINE NURSE PRACTITIONER providing the service under Physical Therapy direction. Initiate Physical Therapy intervention for strengthening, bed mobility, transfers, gait, stairs, balance training, use of assistive device. DISCHARGE RECOMMENDATIONS: SNF TREATMENT CODE/TIME: 24746/ [id number] Thank you for the opportunity to participate in the care of this patient. Shawna Malik PT [facility]
[2024-09-01] MEDS: Melatonin 3 MG TAB PO (21:07)
[2024-09-01] MEDS: rOPINIRole 1 MG TAB 0.5 MG NG (21:08)
[2024-09-01] MEDS: Rosuvastatin 20 MG TAB 40 MG NG (21:08)
[2024-09-02] VITALS (29 sets, daily range): BP systolic 79–183; BP diastolic 36–104; PULSE 59–79; RESP 10–18; TEMP 36.4–36.8; O2SAT 91–98
[2024-09-02 06:16] LABS: Abs Immature Grans 0.03 10^3/uL (0.0-0.06); Absolute Lymphocyte Count 1.05 10^3/uL (1.2-3.4); Absolute Monocyte Count 0.79 10^3/uL (0.1-0.8); Absolute Neutrophil Count 6.05 10^3/uL (1.2-6.7); Basophils % 1.2 %; Eosinophils % 3.6 %; HCT 36.9 % (40.0-50.0); HGB 11.8 g/dL (13.5-17.5); Immature Grans % 0.4 %; Lymphocytes % 12.6 %; MCH 32.7 pg (27.0-33.0); MCV 102 fL (80-95); Monocytes % 9.5 %; Neutrophils % 72.7 %; Platelet Count 193 10^3/uL (130-400); RBC 3.61 10^6/uL (4.36-5.78); RDW 12.8 % (11.8-14.1); RDW-SD 48.1 fL; WBC 8.32 10^3/uL (4.4-10.8)
[2024-09-02] MEDS: Levothyroxine 88 MCG TAB NG (06:22)
[2024-09-02 06:37] LABS: ALT 19 U/L (16-63); AST 33 U/L (15-37); Albumin 2.5 g/dL (3.4-5.0); Alkaline Phosphatase 134 U/L (46-116); Anion Gap 7.6 mmol/L (3-11); BUN 35 mg/dL (7-18); Bilirubin, Total 0.3 mg/dL (0.2-1.0); CO2 30.4 mmol/L (21.0-32.0); CREATININE 1.1 mg/dL (0.70-1.30); Calcium 8.4 mg/dL (8.5-10.1); Chloride 107 mmol/L (98-107); Estimated GFR 68.71 (mL/min/1.73m2); Glucose 151 mg/dL (74-106); Potassium 3.4 mmol/L (3.5-5.1); Sodium 145 mmol/L (136-145); Total Protein 6.6 g/dL (6.4-8.2)
--- NOTE | 2024-09-02 09:22 | CMPROGNOTE_ITS ---
Date of service: 09/02/24 Time of Service: 09:22 Care Management Progress Note Progress Note Text Progress Note Text: Pineda was sitting up in bed visiting with Kiara when CM met with him. He had requested that CM help to explain to Kiara what his final wishes included. When he was admitted, he told the provider that he wished to be a full code. Today he met with Kaylin Mancuso from Palliative Care and completed a COLST form. Pineda chose DNR/DNI status. Pineda requested that CM review the document with Kiara and she was not in agreement with the DNI portion of the order. She stated that she felt it would be better to agree to a trial of intubation to give Pineda a chance to get better. Pineda agreed. Kaylin is no longer available today so CM discussed the situation with the hospitalist. Pineda's code status was changed to DNR only. When Palliative returns on Thursday, the issue will be revisited and a new COLST form will be completed if Pineda's decision does not change. Pineda received as bed offer today from [facility]. A referral was also sent to the [facility] and Pineda requested that we check on bed availability there as well before making a final decision on Thursday. Discharge Potential Discharge Needs: Other (SNF) Anticipated Barriers to Discharge: Bed availability Patient/Family Education Needs: Review discharge instructions, discuss Ask Me Three Transportation: RCT Plan: Anticipate Chan will be transferred to a SNF for short term rehab prior to returning home. He will follow up with the facility providers and plan of care. Transportation will be determined by disposition. CM will follow and continue to assess for discharge planning concerns. Social Determinants of Health Screening Will the Patient Participate in the Screening?: Unable to obtain
[2024-09-02] MEDS: rOPINIRole 1 MG TAB 0.5 MG NG ×2 (09:28→20:41)
[2024-09-02] MEDS: Aspirin 81 MG CHEW NG (09:28)
[2024-09-02] MEDS: Normal Saline Flush 10 ML SYR IVP ×2 (09:29→20:42)
[2024-09-02] MEDS: Gabapentin 300 MG CAP NG ×3 (09:29→20:41)
[2024-09-02] MEDS: Sertraline 100 MG TAB NG (09:29)
[2024-09-02] MEDS: Finasteride 5 MG TAB NG (09:29)
[2024-09-02] MEDS: levETIRAcetam Oral Solution 100 MG/ML 500 MG NG ×2 (09:29→20:39)
--- NOTE | 2024-09-02 09:29 | W.PM.PROGNOT ---
Date of Service Date of service: 09/02/24 Time of Service: 09:30 Assessment and Plan Assessment and plan (1) Subdural hematoma, post-traumatic: Status: Acute Assessment and plan: Significant fall with question of small area of acute bleeding into old hematoma on right. No clear neurologic deficits, but exam limited as not cooperating Imaging and case reviewed by [facility] Neurosurgery. They are not convinced there is any acute bleed, but recommend repeating the CT in 6 hours. If any evolution they will reconsider neurosurgical intervention. If f/u imaging does not reveal any change, can resume aspirin/anticoagulation as indicated. His persistence on going back to the ED is odd. He doesn't seem confused or delusional otherwise. Seems behavioral rather than neurologic. Observe closely in ICU 09/01/24 Per my discussion with Dr Yepez this am, he discussed the case with NS at [facility] who aren't seeing any changes from baseline. At this point, there doesn't appear to be any reason for transfer for acute interventions. Will continue to monitor mental status in the 09/02/24 Will start aspirin and monitor neuro exam. Possible d/c tomorrow (2) Acute and chronic respiratory failure with hypoxia: Status: Acute Assessment and plan: Without a clear new focal infection. This is typically relate to mucous plugging. Working with RTs who know him well now. Will admit to ICU for close supportive care. I don't think antibiotics or steroids indicated. As mentioned above, trying to see where the info about mrsa positive screen is at. Not in microbiology at least on my screen 09/01/24 CW wean as appropriate. Will dw RT dev MDR (3) PAOD (peripheral arterial occlusive disease): Status: Acute Assessment and plan: Newly noted on last admission right subclavian and celiac arteries without clear symtoms. Continue statin, resume ASA after second CT if reassuring as above. Will restart asa (4) Hypernatremia: Status: Acute Assessment and plan: Likely related to not being able to take free water. Resume tube feeds, can give some additional free water. Follow. 09/01/24 Resolved (5) On deep vein thrombosis (DVT) prophylaxis: Assessment and plan: TEDs/SCDs pending f/u CT as above. Subjective Subjective Interval history since last seen: Per NS, pt did have episodes of hypotension. Responded to NS and no need for pressure support. Exam Narrative Exam Narrative: GENERAL: Alert and oriented, no acute distress. HEENT: Normocephalic, stapled hemostatic laceration left alevism/parietal scalp. PERRL/EOMI. no icterus. MOUTH: MMM, slight white film on tongue. NECK: Supple, no masses, Trachea midline. Tracheostomy. CV: Regular rate and rhythm, Normal s1 and s2. No murmurs, rubs, or gallops. CHEST: Chest symmetric with respirations. Lungs are clear to auscultation bilaterally. ABDOMEN: Soft, nondistended, nontender. PEG tube, site without surrounding erythema or drainage EXT: symmetric. 2+ capillary refill. No extremity edema. legs not tender. BACK: No abrasions, skin openings, or ecchymosis. Spine without bony tenderness, no step offs. MSK: No gross deformities, no redness or swelling NEURO: CN grossly intact other than ptosis left. Moving extremities normally. He does not cooperate with exam as he seems upset about being taken from the ED. SKIN: Warm and well perfused. No rash scd in place Objective Last Vital Signs Temp 37.3 C 09/01/24 18:05 Pulse 66 09/02/24 06:01 Resp 14 09/02/24 06:01 BP 137/69 09/02/24 06:01 Pulse Ox 94 09/02/24 07:56 Laboratory Results - last 24 hr 09/02/24 05:40 WBC 8.32 RBC 3.61 L Hgb 11.8 L Hct 36.9 L MCV 102 H MCH 32.7 MCHC 32.0 RDW 12.8 Plt Count 193 MPV 10.0 Immature Gran % 0.4 Neutrophils % 72.7 Lymphocytes % 12.6 Monocytes % 9.5 Eosinophils % 3.6 Basophils % 1.2 Nucleated RBC % 0.0 Absolute Neutrophils 6.05 Absolute Lymphocytes 1.05 L Absolute Monocytes 0.79 Absolute Eosinophils 0.30 Absolute Basophils 0.10 Sodium 145 Potassium 3.4 L Chloride 107 Carbon Dioxide 30.4 Anion Gap 7.6 BUN 35 H Creatinine 1.1 Est GFR (CKD-EPI 2020) 68.71 Glucose 151 H Calcium 8.4 L Total Bilirubin 0.3 AST 33 ALT 19 Alkaline Phosphatase 134 H Total Protein 6.6 Albumin 2.5 L Time Spent with Patient Time Spent with Patient: 25-34 minutes Time was spent: preparing to see the patient(eg.review tests), obtaining and/or reviewing separately otained hiistory, ordering medications,tests, procedures, referring, communicating with other health client care coordinator, indepentently interpreting results, counseling the patient and care coordination
[2024-09-02] MEDS: Nystatin POWDER 15 GM JAR TP (09:30)
[2024-09-02] MEDS: Sulfameth/Trimeth 40-8 mg per ml 5 ML NG ×2 (09:30→20:40)
[2024-09-02] MEDS: Acetaminophen Solution 650 MG/20.3 ML CUP 1000 MG NG (13:22)
--- NOTE | 2024-09-02 13:41 | PCNE_ITS ---
Date of service: 09/02/24 Time of Service: 13:42 History of Present Illness Narrative: Pineda was seen in his ICU room at [facility]. He was alone at the time of the visit. He was discharged from [facility] and admitted to [facility] later the same day after having a fall at home. His sig other, Kiara was clear that she does not feel she can continue to take care of him as things are now. CM notes that Pineda agreed to go to SNF for rehab. Reviewed this today. Pineda is clear he is not really interested in doing rehab. He is clear that he wishes to be kept comfortable. He reiterates that he is nearing 81yo and realizes he is declining. Reviewed what comfort care and hospice means, he is clear that this is what he wants. Reviewed that he is currently listed as a FULL CODE and that often when people choose [facility]/hospice, they review CODE status. He is clear that he wishes to be DNR/DNI. COSLT completed to reflect his wishes. He asked me to discuss this with Kiara. Unfortunately when I called Kiara, I got VM. She may have been on the way to the hospital but we were not able to connect. Discussed plan with CM. He would also like Dary and Quintin to be updated on his wishes. Plan discussed with Dr. Fam, hospitalist. CODE STATUS changed to DNR/DNI. Assessment and Plan Assessment and plan (1) Subdural hematoma, post-traumatic: Status: Acute Assessment and plan: PER hopsitalist: Significant fall with question of small area of acute bleeding into old hematoma on right. No clear neurologic deficits, but exam limited as not cooperating Imaging and case reviewed by [facility]. They are not convinced there is any acute bleed, but recommend repeating the CT in 6 hours. If any evolution they will reconsider neurosurgical intervention. If f/u imaging does not reveal any change, can resume aspirin/anticoagulation as indicated. He denies pain. (2) Acute and chronic respiratory failure with hypoxia: Status: Acute Assessment and plan: Without a clear new focal infection. (3) PAOD (peripheral arterial occlusive disease): Status: Acute Assessment and plan: Per hospitalist: Newly noted on last admission right subclavian and celiac arteries without clear symtoms. Continue statin, resume ASA after second CT if reassuring as above. Will restart asa (4) Hypernatremia: Status: Acute (5) Impaired instrumental activities of daily living: Status: Acute (6) Advance care planning: Assessment and plan: Pineda was seen in his hospital room. He was alone at the time of the visit. He is clear he wants [facility]/hospice. He states he does not wish to do rehab. He knows he is nearing the end of his life. He is clear he is a DNR/DNI. COLST completed. He has CFC so likely can go to SNF on [facility]/hospice. Will need to discuss home hospice with Kiara to see if this is an option as he will need caregiver. Unable to reach Kiara via phone. CM updated on plan to discuss with Kiara. Discussed plan with Hospitalist. Palliative will continue to follow. (7) Palliative care patient: Review of Systems Narrative: PER HPI PFSH All Active Problems (Updated 09/03/24 @ 13:58 by Emanuel Fam MD) Leg pain, left (Acute) Acute hypoxemic respiratory failure (Acute) Laceration of scalp (Acute) Acute hypotension (Acute) Fall (Acute) Subdural hematoma, post-traumatic (Acute) Hypernatremia (Acute) Right subclavian artery occlusion (Acute) Leg pain (Acute) Tracheostomy in place (Acute) Occlusion of celiac artery (Acute) Urinary tract infection (Acute) Acute and chronic respiratory failure with hypoxia (Acute) Foreign body sensation, throat (Acute) Right clavicle fracture (Acute 08/30/23) Syncope (Chronic) Ground glass opacity present on imaging of lung (Acute) Subdural hematoma (Acute) Pulmonary edema (Acute) Fracture of thumb, left, closed (Acute) Acute non-ST elevation myocardial infarction (NSTEMI) (Acute) Arm pain (Acute) Hemoptysis (Acute) Nausea & vomiting (Acute) Regurgitation of food (Acute) Pulmonary embolism (Chronic) Uses feeding tube (Acute) Gross hematuria (Acute) Ambulatory dysfunction (Acute) Leukocytosis (leucocytosis) (Acute) UTI (urinary tract infection) (Acute) Multiple subsegmental pulmonary emboli without acute cor pulmonale (Acute) C1 cervical fracture (Acute) Gastrostomy tube dysfunction (Acute) Encounter for hospice care discussion (Acute) Unintentional weight loss of 10% body weight within 6 months (Acute) Dysuria (Acute) Malfunctioning jejunostomy tube (Acute) Need for follow-up by social worker masters (Acute) Dysphagia (Acute) Impaired instrumental activities of daily living (Acute) Plantar fascial fibromatosis (Acute) Feeding tube dysfunction (Acute) Sensorineural hearing loss (SNHL) of both ears (Acute) Otalgia of right ear (Acute) Neck pain on right side (Acute) Neck pain on right side (Acute) Full code status (Acute) Need for home health care (Acute) MRSA pneumonia (Acute) pt likely colonized Occlusion of right vertebral artery (Acute) Hypoxemia (Acute) Complication of feeding tube (Acute) Peripheral neuropathy (Acute 02/21/15) PAOD (peripheral arterial occlusive disease) (Acute) Laryngeal cancer (Acute) COPD (chronic obstructive pulmonary disease) (Chronic) 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 Routine change every 4 months. History of laryngeal cancer Chronic respiratory failure with hypoxia Pneumonia Shortness of breath Complication of feeding tube Hematoma following procedure Blockage of feeding tube Dyspnea on exertion Neurotrophic cornea of left eye Left corneal scar with opacity Cortical cataract of right eye Nuclear sclerotic cataract of right eye Posterior subcapsular age-related cataract, right eye Feeding tube dysfunction CAD (coronary artery disease) Sessile colonic polyp 12/22/16-SESSILE SERRATED ADENOMA Restless leg syndrome (02/21/15) Pulmonary nodule, right (05/30/15) on chest CT -2015: stable Primary malignant neoplasm of oropharynx ; yearly fup in Feb (last ) [facility] SX: 2007 ROR: 2000 + 2008 Impingement syndrome, shoulder, left (10/10/16) -2017: PT sugg. 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 Hypertension Tobacco use COPD (chronic obstructive pulmonary disease) Post herpetic neuralgia Hypothyroidism Hyperlipemia Depression Anxiety Conjunctivitis, chronic Surgical History S/P AAA (abdominal aortic aneurysm) repair Status post laryngectomy History of esophagogastroduodenoscopy (EGD) (~08/10/19) Daron Casper APRN @ [facility]: hiatal hernia, GERD, Reyes's esophagitis, neuromuscular dysfunction History of laryngectomy Status post cardiac catheterization Status post cataract extraction and insertion of intraocular lens of right eye (07/12/18) History of tarsorrhaphy Status post cataract extraction and insertion of intraocular lens of left eye (04/30/12) 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) Sin-mullins button placed by Dr Elia Mcdonald, [facility] PROCEDURES RT/LEFT HEART CARD CATH COMPLETE LARYNGECTOMY Esophagoplasty EGD - MAC (07/06/17) Colonoscopy - MAC (12/22/16) History of radical laryngectomy Family History Nephew Throat cancer Maternal Cousin Cancer Social History (Updated 08/31/24 @ 23:12 by Dwayne Lozada) Smoking/Tobacco Use Status: Former Tobacco Use Quit Date: 04/23/13 Tobacco: How many years used: 20 Smoking risk assessment performed?: Yes Alcohol Intake: never Drug use: Never Substance use type: does not use Housing: house Current gender identity: male Do you feel safe at home: Yes Do you feel safe in your relationship?: Yes Additional Social history: Lives with partner/caregiver Kiara caraballo in [place] Exam Narrative Exam Narrative: General: older, chronically and acutely ill/frail appearing man, laying in hospital bed with HOB elevated. He is awake, alert, pleasant. He engaged in visit. Uses voice box to speak, speech is very difficulty to understand, communicates via writing at times, writing also difficult to read. HEENT: normocephalic, hearing grossly WN; edentulous; O2 mask covering trach stoma Resp: even and unlabored, no cough or audible wheeze Ext: moves extremities, no edema. scattered areas of ecchymosis noted on BUEs. Results Last Vital Signs Temp 36.6 C 09/02/24 09:10 Pulse 63 09/02/24 11:01 Resp 14 09/02/24 11:01 BP 106/48 L 09/02/24 11:01 Pulse Ox 96 09/02/24 12:05 Labs 09/06/24 07:00 09/06/24 07:00 Labs: Laboratory Results - last 24 hr 09/02/24 09/02/24 05:40 11:35 WBC 8.32 RBC 3.61 L Hgb 11.8 L Hct 36.9 L MCV 102 H MCH 32.7 MCHC 32.0 RDW 12.8 Plt Count 193 MPV 10.0 Immature Gran % 0.4 Neutrophils % 72.7 Lymphocytes % 12.6 Monocytes % 9.5 Eosinophils % 3.6 Basophils % 1.2 Nucleated RBC % 0.0 Absolute Neutrophils 6.05 Absolute Lymphocytes 1.05 L Absolute Monocytes 0.79 Absolute Eosinophils 0.30 Absolute Basophils 0.10 Sodium 145 Potassium 3.4 L Chloride 107 Carbon Dioxide 30.4 Anion Gap 7.6 BUN 35 H Creatinine 1.1 Est GFR (CKD-EPI 2020) 68.71 Glucose 151 H Calcium 8.4 L Total Bilirubin 0.3 AST 33 ALT 19 Alkaline Phosphatase 134 H Total Protein 6.6 Albumin 2.5 L MRSA (TEM-PCR) Cancelled Time Spent Time Spent with Patient Time Spent(min): 68
--- NOTE | 2024-09-02 15:12 | PT.INNT ---
PT Notes Visit Reasons: Respiratory failure, Trauma pt not available this pm. I did check in with him regarding getting out of bed. He reports his left leg still hurts. They haven't done anything with it yet. He did not remember that he had xrays yesterday. He declined PT at this time as he needed to work with case management to do some paperwork. His partner Kiara was visiting at the time. Will check in with him in am.
--- NOTE | 2024-09-02 16:51 | W.PC.ACHO ---
Registration Status: Primary Language: Preferred Language: ED Information & Data Chief Complaint Trauma 08/31/24 19:58 Triage Note fall with head strike, also 08/31/24 15:54 c/o of left leg pain reported he looked weak then fell Medical / Surgical History (Last Reviewed 08/31/24 @ 23:11 by Dwayne Lozada) On deep vein thrombosis (DVT) prophylaxis Recurrent syncope Laceration of occipital region of scalp Fall Orthostatic hypotension Palliative care patient Caregiver stress Advance care planning Weakness G tube feedings History of laryngeal cancer Chronic respiratory failure with hypoxia Pneumonia Shortness of breath Complication of feeding tube Hematoma following procedure Blockage of feeding tube Dyspnea on exertion Neurotrophic cornea of left eye Left corneal scar with opacity Cortical cataract of right eye Nuclear sclerotic cataract of right eye Posterior subcapsular age-related cataract, right eye Feeding tube dysfunction CAD (coronary artery disease) Sessile colonic polyp Restless leg syndrome (02/21/15) Pulmonary nodule, right (05/30/15) Primary malignant neoplasm of oropharynx Impingement syndrome, shoulder, left (10/10/16) Hypothyroidism (11/18/12) Hyperlipidemia (11/18/12) History of tobacco use History of alcoholism Herpes zoster Depressive disorder (11/18/12) 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/17) Aphonia Anxiety 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) Hypertension Tobacco use COPD (chronic obstructive pulmonary disease) Post herpetic neuralgia Hypothyroidism Hyperlipemia Depression Anxiety Conjunctivitis, chronic (Last Reviewed 08/31/24 @ 23:11 by Dwayne Lozada) S/P AAA (abdominal aortic aneurysm) repair Status post laryngectomy History of esophagogastroduodenoscopy (EGD) (~08/10/19) History of laryngectomy Status post cardiac catheterization Status post cataract extraction and insertion of intraocular lens of right eye (07/12/18) History of tarsorrhaphy Status post cataract extraction and insertion of intraocular lens of left eye (04/30/12) 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) PROCEDURES EGD - MAC (07/06/17) Colonoscopy - MAC (12/22/16) History of radical laryngectomy Most Recent Vital Signs Temperature 36.6 C 09/02/24 09:10 Temperature Source Temporal Artery Scan 09/02/24 09:10 Pulse 70 09/02/24 16:01 Pulse 70 09/02/24 16:01 Respiratory Rate 18 09/02/24 16:01 Respiratory Effort Non-Labored 09/01/24 00:21 Respiratory Depth Normal 09/01/24 00:21 Respiratory Pattern Normal 09/01/24 00:21 Blood Pressure 171/73 H 09/02/24 16:01 Blood Pressure Mean 101 09/02/24 16:01 Blood Pressure Position Supine 09/01/24 00:21 Pulse Oximetry 97 09/02/24 16:01 Oxygen Delivery Method Venti Mask 09/02/24 12:05 Oxygen Flow Rate 4 09/02/24 12:05 Fraction of Inspired Oxygen (FIO2) 28 09/02/24 12:05 Pain Level 5 08/31/24 18:22 Comment RT coming to suction 08/31/24 16:40 Allergies pollen extracts Allergy (Mild, Verified 08/27/24 20:55) Wheezing Tetracyclines Allergy (Unknown, Verified 08/27/24 20:55) SKIN RASH Precautions Isolation Fall precaution 08/31/24 18:22 Active Medications Generic Name Dose Route Start Last Admin Trade Name Jeovanyq PRN Reason Stop Dose Admin Acetaminophen 1,000 mg 09/01/24 09:00 09/02/24 13:22 Acetaminophen Solution 650 Mg/20.3 Ml Cup NG 1,000 mg BID PRN PRN Administration Aspirin 81 mg 09/02/24 09:00 09/02/24 09:28 Aspirin 81 Mg Chew NG 81 mg DAILY MYA Administration Esomeprazole Magnesium 40 mg 09/01/24 10:00 09/02/24 09:28 Esomeprazole Oral Suspension 40 Mg Pkt NG 40 mg DAILY@0730 MYA Administration Ferrous Sulfate 325 mg 09/01/24 09:30 09/02/24 09:29 Ferrous Sulfate 75 Mg/Ml 50 Ml Btl NG 325 mg DAILY MYA Administration Finasteride 5 mg 09/01/24 09:30 09/02/24 09:29 Finasteride 5 Mg Tab NG 5 mg DAILY MYA Administration Gabapentin 300 mg 09/01/24 09:30 09/02/24 13:22 Gabapentin 300 Mg Cap NG 300 mg TID MYA Administration Levetiracetam 500 mg 09/01/24 09:30 09/02/24 09:29 Levetiracetam Oral Solution 100 Mg/Ml NG 500 mg BID MYA Administration Levothyroxine Sodium 88 mcg 09/02/24 05:35 09/02/24 06:22 Levothyroxine 88 Mcg Tab NG 88 mcg DAILY AM MYA Administration Melatonin 3 mg 09/01/24 20:00 09/01/24 21:07 Melatonin 3 Mg Tab PO 3 mg HS MYA Administration Metoprolol Tartrate 12.5 mg 09/01/24 09:30 09/02/24 09:29 Metoprolol 12.5 Mg Tab NG Not Given BID MYA Morphine Sulfate 2 mg 09/01/24 13:41 09/01/24 13:50 Morphine 2 Mg/Ml Syr IVP 2 mg Q4H PRN PRN Administration Nystatin 0 gm 09/01/24 08:30 09/02/24 09:30 Nystatin Powder 15 Gm Jar TP 1 applic BID MYA Administration Patient's Own 4 each 09/01/24 08:30 09/02/24 07:59 Medication ( IH Not Given Acetylcysteine 100 BID MYA Mg/Ml (10%) Solution ) Patient's Own 1 each 09/01/24 08:30 09/02/24 09:30 Medication ( PO Not Given Bifidobacterium DAILY MYA Infantis [Align Jr] 10.5 Mg Tab) Ropinirole HCl 0.5 mg 09/01/24 09:30 09/02/24 09:28 Ropinirole 1 Mg Tab NG 0.5 mg BID MYA Administration Rosuvastatin Calcium 40 mg 09/01/24 20:00 09/01/24 21:08 Rosuvastatin 20 Mg Tab NG 40 mg HS MYA Administration Sertraline HCl 100 mg 09/01/24 10:00 09/02/24 09:29 Sertraline 100 Mg Tab NG 100 mg DAILY MYA Administration Sodium Chloride 0 ml 09/01/24 08:30 09/02/24 09:29 Normal Saline Flush 10 Ml Syr IVP 40 ml BID MYA Administration Tamsulosin HCl 0.4 mg 09/01/24 08:30 09/01/24 10:05 Tamsulosin 0.4 Mg Capcr PO Not Given DAILY MYA Trimethoprim/Sulfamethoxazole 5 ml 09/01/24 10:00 09/02/24 09:30 Sulfameth/Trimeth 40-8 Mg Per Ml NG 5 ml BID MYA Administration IV IV Catheter Type [Left Wrist] Saline Lock IV Catheter Type [Right Wrist] Saline Lock IV Catheter Type [Right Peripheral IV Forearm] IV Catheter Gauge [Left Wrist] 20 IV Catheter Gauge [Right Wrist 20 ] IV Catheter Gauge [Right 18 Forearm] Diagnostics 09/02/24 09/02/24 Range/Units 11:35 05:40 WBC 8.32 (4.4-10.8) 10^3/uL RBC 3.61 L (4.36-5.78) 10^6/uL Hgb 11.8 L (13.5-17.5) g/dL Hct 36.9 L (40.0-50.0) % MCV 102 H (80-95) fL MCH 32.7 (27.0-33.0) pg MCHC 32.0 (32.0-36.0) % RDW 12.8 (11.8-14.1) % Plt Count 193 (130-400) 10^3/uL MPV 10.0 (8.0-11.0) fL Immature Gran % 0.4 % Neutrophils % 72.7 % Lymphocytes % 12.6 % Monocytes % 9.5 % Eosinophils % 3.6 % Basophils % 1.2 % Nucleated RBC % 0.0 (0.0-0.3) % Absolute Neutrophils 6.05 (1.2-6.7) 10^3/uL Absolute Lymphocytes 1.05 L (1.2-3.4) 10^3/uL Absolute Monocytes 0.79 (0.1-0.8) 10^3/uL Absolute Eosinophils 0.30 (0.0-0.7) 10^3/uL Absolute Basophils 0.10 (0.0-0.2) 10^3/uL Sodium 145 (136-145) mmol/L Potassium 3.4 L (3.5-5.1) mmol/L Chloride 107 (98-107) mmol/L Carbon Dioxide 30.4 (21.0-32.0) mmol/L Anion Gap 7.6 (3-11) mmol/L BUN 35 H (7-18) mg/dL Creatinine 1.1 (0.70-1.30) mg/dL Est GFR (CKD-EPI 2020) 68.71 (mL/min/1.73m2) Glucose 151 H (74-106) mg/dL Calcium 8.4 L (8.5-10.1) mg/dL Total Bilirubin 0.3 (0.2-1.0) mg/dL AST 33 (15-37) U/L ALT 19 (16-63) U/L Alkaline Phosphatase 134 H (46-116) U/L Total Protein 6.6 (6.4-8.2) g/dL Albumin 2.5 L (3.4-5.0) g/dL MRSA (TEM-PCR) Cancelled Intake and Output - 24 Hour Total 08/31/24 15:38 thru 09/02/24 14:45 Intake Total 1590 Output Total 1875 Balance -285 Weight 58.3 kg Intake: IV 1590 Output: Urine 1875 Other: Urine Color Light Ankita Urine Appearance Clear Urine Odor Normal Comment Voided an unknown amount Falls Risk Assessment History of Falls Admit Due to Fall 09/01/24 00:21 Contributing Factors Confusion 09/01/24 00:21 Ambulatory Aids Uses ambulatory device 09/01/24 00:21 Tubes/Lines With any additional score 09/01/24 00:21 Gait Evaluation W/no contributing factors 09/01/24 00:21 Cognition Cognitive impairment 09/01/24 00:21 Fall Total Score 88 09/01/24 00:21 Level of Risk Maximum Risk 09/01/24 00:21 Problems (Last Reviewed 08/31/24 @ 23:11 by Dwayne Lozada) Acute hypoxemic respiratory failure (Acute) Laceration of scalp (Acute) Acute hypotension (Acute) Fall (Acute) Subdural hematoma, post-traumatic (Acute) Hypernatremia (Acute) Acute and chronic respiratory failure with hypoxia (Acute) PAOD (peripheral arterial occlusive disease) (Acute) Notes 09/01/24 12:21 Nursing Notes by Carline Mccarty Nursing Note: Nutrition consult placed by this RN in order to have them review current tube feed order and make changes as needed. The current order lacks a free water amount, the type of feed, and the goal rate. Tube feed not initiated for this reason. Awaiting new orders. Initialized on 09/01/24 12:21 - END OF NOTE 08/31/24 21:33 Nursing Notes by Vlad Lynch PT requested and was given socks Nursing Note: Initialized on 08/31/24 21:33 - END OF NOTE 08/31/24 19:56 Nursing Notes by Vlad Lynch 1930 provider at bedside for suturing Nursing Note: Initialized on 08/31/24 19:56 - END OF NOTE 08/31/24 18:50 Respiratory by Patti Carter 1645-Stoma Assessment: Patent, crusty/visible secretions at stoma, suctioned with a 10 [place] citizen catheter with moderate amount of thick white secretions resulting. Pt placed on humidification with O2 in place. Emergency Laryngectomy sign and kit at bedside. Initialized on 08/31/24 18:50 - END OF NOTE v v v v v v v v v Sending and/or Receiving Nurses: Please use comment section below to note any information pertinent to the patient hand-off not included above. Information / Comments: Transferred pt. from ICU 219 to MS 218 via stretcher. In stable condition. Report received from: Carline at ICU, 1642 pm
--- NOTE | 2024-09-02 17:02 | CHAPLAIN ---
Kiara, Pineda's partner, was in the room with him when I visited this afternoon and brought Pineda a prayer shawl. I had some trouble understanding Pineda when he was using his speech device. Kiara explained what he was saying. 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 According to Care Management notes, Pineda will likely go to a short term rehab before going home.
[2024-09-02] MEDS: Rosuvastatin 20 MG TAB 40 MG NG (20:41)
[2024-09-02] MEDS: Metoprolol 12.5 MG TAB NG (20:41)
[2024-09-02] MEDS: Melatonin 3 MG TAB PO (20:42)
[2024-09-02] MEDS: MORPHine 2 MG/ML SYR IVP (21:08)
[2024-09-03] VITALS (10 sets, daily range): BP systolic 94–158; BP diastolic 60–92; PULSE 67–101; RESP 2–20; TEMP 35.8–37; O2SAT 93–101
[2024-09-03] MEDS: MORPHine 2 MG/ML SYR IVP ×3 (03:48→18:12)
[2024-09-03 06:45] LABS: Abs Immature Grans 0.05 10^3/uL (0.0-0.06); Absolute Basophil Count 0.11 10^3/uL (0.0-0.2); Absolute Eosinophil Count 0.35 10^3/uL (0.0-0.7); Absolute Lymphocyte Count 1.04 10^3/uL (1.2-3.4); Absolute Monocyte Count 0.83 10^3/uL (0.1-0.8); Absolute Neutrophil Count 6.99 10^3/uL (1.2-6.7); Basophils % 1.2 %; Eosinophils % 3.7 %; HGB 11.8 g/dL (13.5-17.5); Immature Grans % 0.5 %; Lymphocytes % 11.1 %; MCH 32.4 pg (27.0-33.0); MCHC 31.9 % (32.0-36.0); MCV 102 fL (80-95); MPV 9.9 fL (8.0-11.0); Monocytes % 8.9 %; Neutrophils % 74.6 %; Platelet Count 209 10^3/uL (130-400); RBC 3.64 10^6/uL (4.36-5.78); RDW 12.5 % (11.8-14.1); WBC 9.37 10^3/uL (4.4-10.8)
[2024-09-03 07:12] LABS: ALT 26 U/L (16-63); AST 29 U/L (15-37); Albumin 2.6 g/dL (3.4-5.0); Alkaline Phosphatase 157 U/L (46-116); Anion Gap 8.6 mmol/L (3-11); BUN 34 mg/dL (7-18); Bilirubin, Total 0.3 mg/dL (0.2-1.0); CO2 29.4 mmol/L (21.0-32.0); CREATININE 0.9 mg/dL (0.70-1.30); Calcium 8.7 mg/dL (8.5-10.1); Chloride 106 mmol/L (98-107); Estimated GFR 87.42 (mL/min/1.73m2); Glucose 142 mg/dL (74-106); Potassium 3.7 mmol/L (3.5-5.1); Sodium 144 mmol/L (136-145); Total Protein 6.6 g/dL (6.4-8.2)
[2024-09-03] MEDS: Finasteride 5 MG TAB NG (08:57)
[2024-09-03] MEDS: Sertraline 100 MG TAB NG (08:57)
[2024-09-03] MEDS: Gabapentin 300 MG CAP NG ×3 (08:57→20:36)
[2024-09-03] MEDS: Levothyroxine 88 MCG TAB NG (08:57)
[2024-09-03] MEDS: Aspirin 81 MG CHEW NG (08:57)
[2024-09-03] MEDS: rOPINIRole 1 MG TAB 0.5 MG NG ×2 (08:58→20:35)
[2024-09-03] MEDS: Normal Saline Flush 10 ML SYR IVP ×4 (10:22→20:37)
[2024-09-03] MEDS: Albuterol 2.5 MG/3 ML INH SOLN VIAL UPD ×2 (11:03→20:09)
[2024-09-03] MEDS: levETIRAcetam Oral Solution 100 MG/ML 500 MG NG ×2 (11:36→20:37)
[2024-09-03] MEDS: Sulfameth/Trimeth 40-8 mg per ml 5 ML NG ×2 (11:36→21:01)
--- NOTE | 2024-09-03 12:58 | PT.INTREAT ---
PT Notes Visit Reasons: Respiratory failure, Trauma Inpatient Physical Therapy Treatment Note [facility] Date: 09/03/2024 PRECAUTIONS: Fall risk, n.p.o., PEG, oxygen via trach mask, IV access SUBJECTIVE: Patient reporting I do not trust anyone patient reassured that Kiara knows he is here and will be in to visit nurse Brisa to call Kiara as well. OBJECTIVE: Patient presented semireclined in bed with oxygen via trach mask in place. ? PAIN: Denied VITALS: ?Monitored via telemetry Therapeutic Activities ([id number]): Direct one-on-one instruction in dynamic activities to improve functional performance. ?Supine to sit min assist increased loss of balance to the right requiring assistance to maintain seated at edge of bed in prep for transfers Sit to stand min assist of 1 at FWW cues for hand placement to push up Stand to sit mod assist of 1 from FWW to lower into chair to reduce l lean to the right Bed to chair mod assist of 1, standby assist of 1 with FWW Patient able to sustain stand at FWW for use of urinal x 40 seconds without loss of balance ASSESSMENT: Patient required encouragement and reassurance to participate in session today agreeable to stand and perform transfers then patient dismissed therapist stating you can go home now. Patient reapproached in afternoon and declined to participate PLAN: Plan of Care/Treatment Plan: 1-2x/day, 7 days/week x 1 week. Plan of care has been reviewed with the SEARCH DIRECTOR providing the service under Physical Therapy direction. Initiate Physical Therapy intervention for strengthening, bed mobility, transfers, gait, stairs, balance training, use of assistive device. DISCHARGE RECOMMENDATIONS: SNF TREATMENT CODE/TIME: 31039/[id number]
--- NOTE | 2024-09-03 13:49 | W.PM.PROGNOT ---
Date of Service Date of service: 09/03/24 Time of Service: 13:49 Subjective Subjective Interval history since last seen: NS report pt with LLE pain. Upon my interview, pt does endorse LLE pain but nothing really localizing. Objective Last Vital Signs Temp 35.8 C L 09/03/24 12:18 Pulse 101 H 09/03/24 12:18 Resp 18 09/03/24 11:12 BP 117/60 09/03/24 12:18 Pulse Ox 101 H 09/03/24 12:18 Laboratory Results - last 24 hr 09/03/24 06:25 WBC 9.37 RBC 3.64 L Hgb 11.8 L Hct 37.0 L MCV 102 H MCH 32.4 MCHC 31.9 L RDW 12.5 Plt Count 209 MPV 9.9 Immature Gran % 0.5 Neutrophils % 74.6 Lymphocytes % 11.1 Monocytes % 8.9 Eosinophils % 3.7 Basophils % 1.2 Nucleated RBC % 0.0 Absolute Neutrophils 6.99 H Absolute Lymphocytes 1.04 L Absolute Monocytes 0.83 H Absolute Eosinophils 0.35 Absolute Basophils 0.11 Sodium 144 Potassium 3.7 Chloride 106 Carbon Dioxide 29.4 Anion Gap 8.6 BUN 34 H Creatinine 0.9 Est GFR (CKD-EPI 2020) 87.42 Glucose 142 H Calcium 8.7 Total Bilirubin 0.3 AST 29 ALT 26 Alkaline Phosphatase 157 H Total Protein 6.6 Albumin 2.6 L Time Spent with Patient Time Spent with Patient: <25 minutes Time was spent: preparing to see the patient(eg.review tests), obtaining and/or reviewing separately otained hiistory, ordering medications,tests, procedures, referring, communicating with other health clinical manager home care, indepentently interpreting results, counseling the patient and care coordination
--- NOTE | 2024-09-03 13:52 | W.PM.PROGNOT ---
Date of Service Date of service: 09/03/24 Time of Service: 13:52 Assessment and Plan Assessment and plan (1) Subdural hematoma, post-traumatic: Status: Acute Assessment and plan: Significant fall with question of small area of acute bleeding into old hematoma on right. No clear neurologic deficits, but exam limited as not cooperating Imaging and case reviewed by [facility] Neurosurgery. They are not convinced there is any acute bleed, but recommend repeating the CT in 6 hours. If any evolution they will reconsider neurosurgical intervention. If f/u imaging does not reveal any change, can resume aspirin/anticoagulation as indicated. His persistence on going back to the ED is odd. He doesn't seem confused or delusional otherwise. Seems behavioral rather than neurologic. Observe closely in ICU 09/01/24 Per my discussion with Dr Yepez this am, he discussed the case with NS at [facility] who aren't seeing any changes from baseline. At this point, there doesn't appear to be any reason for transfer for acute interventions. Will continue to monitor mental status in the 09/02/24 Will start aspirin and monitor neuro exam. Possible d/c tomorrow 09/03/24 Notes reviewed from PT recommend SNF. Pt will most likely need to stay until Thursday for case management and planning issues (2) Acute and chronic respiratory failure with hypoxia: Status: Acute Assessment and plan: Without a clear new focal infection. This is typically relate to mucous plugging. Working with RTs who know him well now. Will admit to ICU for close supportive care. I don't think antibiotics or steroids indicated. As mentioned above, trying to see where the info about mrsa positive screen is at. Not in microbiology at least on my screen 09/01/24 CW wean as appropriate. Will dw RT durin MDR (3) PAOD (peripheral arterial occlusive disease): Status: Acute Assessment and plan: Newly noted on last admission right subclavian and celiac arteries without clear symtoms. Continue statin, resume ASA after second CT if reassuring as above. Will restart asa (4) Hypernatremia: Status: Acute Assessment and plan: Likely related to not being able to take free water. Resume tube feeds, can give some additional free water. Follow. 09/01/24 Resolved (5) On deep vein thrombosis (DVT) prophylaxis: Assessment and plan: TEDs/SCDs pending f/u CT as above. (6) Leg pain, left: Status: Acute Assessment and plan: Exact etiology is unknown. Considering that the pt does have a mural thrombus clot will order an usn of LLE Subjective Subjective Interval history since last seen: As mentioned in subjective, pt with LLE pain, but nonlocalizing Exam Narrative Exam Narrative: GENERAL: Alert and oriented, no acute distress. HEENT: Normocephalic, stapled hemostatic laceration left restorationism/parietal scalp. PERRL/EOMI. no icterus. MOUTH: MMM, slight white film on tongue. NECK: Supple, no masses, Trachea midline. Tracheostomy. CV: Regular rate and rhythm, Normal s1 and s2. No murmurs, rubs, or gallops. CHEST: Chest symmetric with respirations. Lungs are clear to auscultation bilaterally. ABDOMEN: Soft, nondistended, nontender. PEG tube, site without surrounding erythema or drainager. BACK: No abrasions, skin openings, or ecchymosis. Spine without bony tenderness, no step offs. MSK: No gross deformities, no redness or swelling NEURO: CN grossly intact other than ptosis left. Moving extremities normally. He does not cooperate with exam as he seems upset about being taken from the ED. SKIN: Warm and well perfused. No rash scd in place LLE-DP/PT intact, no Vannessa's sign, no TTP Objective Last Vital Signs Temp 35.8 C L 09/03/24 12:18 Pulse 101 H 09/03/24 12:18 Resp 18 09/03/24 11:12 BP 117/60 09/03/24 12:18 Pulse Ox 101 H 09/03/24 12:18 Laboratory Results - last 24 hr 09/03/24 06:25 WBC 9.37 RBC 3.64 L Hgb 11.8 L Hct 37.0 L MCV 102 H MCH 32.4 MCHC 31.9 L RDW 12.5 Plt Count 209 MPV 9.9 Immature Gran % 0.5 Neutrophils % 74.6 Lymphocytes % 11.1 Monocytes % 8.9 Eosinophils % 3.7 Basophils % 1.2 Nucleated RBC % 0.0 Absolute Neutrophils 6.99 H Absolute Lymphocytes 1.04 L Absolute Monocytes 0.83 H Absolute Eosinophils 0.35 Absolute Basophils 0.11 Sodium 144 Potassium 3.7 Chloride 106 Carbon Dioxide 29.4 Anion Gap 8.6 BUN 34 H Creatinine 0.9 Est GFR (CKD-EPI 2020) 87.42 Glucose 142 H Calcium 8.7 Total Bilirubin 0.3 AST 29 ALT 26 Alkaline Phosphatase 157 H Total Protein 6.6 Albumin 2.6 L Time Spent with Patient Time Spent with Patient: 35-49 minutes Time was spent: preparing to see the patient(eg.review tests), obtaining and/or reviewing separately otained hiistory, ordering medications,tests, procedures, referring, communicating with other health dialysis patient care technician, indepentently interpreting results, counseling the patient and care coordination
--- NOTE | 2024-09-03 14:35 | NUR.NOTE ---
Spoke with food and nutrition services supervisor and advised rm [address] Zelda Nevarez needed more TPN Nutren 2.0 sent up to room as he is out now
[2024-09-03 15:05] LABS: D-Dimer > 7500 ng/mlFEU (<500)
--- NOTE | 2024-09-03 18:24 | RESPIRATORY ---
Addendum entered by Ragini Denson 09/03/24 18:28: SPO2 94% post coughing Original Note: 09/03/2024 Cleaned around stoma with gauze and normal saline; pt coughed thick very dark brown secretion and yellow secretions out of stoma.
[2024-09-03] MEDS: Acetylcysteine 20% *ORAL/INHALED* 6000 MG/30 ML VIAL 400 MG UPD (20:07)
[2024-09-03] MEDS: Sodium Chloride 0.9% for Inhalation 3 ML VIAL UPD (20:08)
[2024-09-03] MEDS: Acetaminophen Solution 650 MG/20.3 ML CUP 1000 MG NG (20:28)
[2024-09-03] MEDS: Rosuvastatin 20 MG TAB 40 MG NG (20:35)
[2024-09-03] MEDS: Metoprolol 12.5 MG TAB NG (20:35)
[2024-09-03] MEDS: Melatonin 3 MG TAB PO (20:36)
[2024-09-04] VITALS (9 sets, daily range): BP systolic 121–168; BP diastolic 60–82; PULSE 63–83; RESP 9–20; TEMP 36.4–36.9; O2SAT 95–99
[2024-09-04 06:45] LABS: Abs Immature Grans 0.04 10^3/uL (0.0-0.06); Absolute Eosinophil Count 0.35 10^3/uL (0.0-0.7); Absolute Lymphocyte Count 0.89 10^3/uL (1.2-3.4); Absolute Monocyte Count 0.94 10^3/uL (0.1-0.8); Absolute Neutrophil Count 5.85 10^3/uL (1.2-6.7); Basophils % 1.2 %; Eosinophils % 4.3 %; HCT 35.2 % (40.0-50.0); HGB 11.2 g/dL (13.5-17.5); Immature Grans % 0.5 %; Lymphocytes % 10.9 %; MCH 32.7 pg (27.0-33.0); MCHC 31.8 % (32.0-36.0); MCV 103 fL (80-95); MPV 10.3 fL (8.0-11.0); Monocytes % 11.5 %; Neutrophils % 71.6 %; Platelet Count 181 10^3/uL (130-400); RBC 3.42 10^6/uL (4.36-5.78); RDW 12.7 % (11.8-14.1); RDW-SD 47.8 fL; WBC 8.17 10^3/uL (4.4-10.8)
[2024-09-04] MEDS: rOPINIRole 1 MG TAB 0.5 MG NG ×2 (08:53→20:33)
[2024-09-04] MEDS: levETIRAcetam Oral Solution 100 MG/ML 500 MG NG ×2 (08:54→20:32)
[2024-09-04] MEDS: Sulfameth/Trimeth 40-8 mg per ml 5 ML NG ×2 (08:54→20:32)
[2024-09-04] MEDS: Aspirin 81 MG CHEW NG (08:54)
[2024-09-04] MEDS: Gabapentin 300 MG CAP NG ×3 (08:54→20:34)
[2024-09-04] MEDS: Finasteride 5 MG TAB NG (08:54)
[2024-09-04] MEDS: Sertraline 100 MG TAB NG (08:54)
[2024-09-04] MEDS: Normal Saline Flush 10 ML SYR IVP ×2 (09:07→17:56)
[2024-09-04] MEDS: MORPHine 2 MG/ML SYR IVP ×3 (09:07→22:00)
[2024-09-04 10:04] LABS: ALT 26 U/L (16-63); AST 36 U/L (15-37); Albumin 2.8 g/dL (3.4-5.0); Alkaline Phosphatase 184 U/L (46-116); Anion Gap 7.8 mmol/L (3-11); BUN 40 mg/dL (7-18); Bilirubin, Total 0.2 mg/dL (0.2-1.0); CO2 32.2 mmol/L (21.0-32.0); CREATININE 0.8 mg/dL (0.70-1.30); Calcium 8.9 mg/dL (8.5-10.1); Chloride 107 mmol/L (98-107); Estimated GFR 90.58 (mL/min/1.73m2); Glucose 104 mg/dL (74-106); Potassium 4.2 mmol/L (3.5-5.1); Sodium 147 mmol/L (136-145)
[2024-09-04] MEDS: Metoprolol 12.5 MG TAB NG ×2 (10:45→20:34)
[2024-09-04] MEDS: Levothyroxine 88 MCG TAB NG (10:45)
[2024-09-04] MEDS: Tamsulosin 0.4 MG CAPCR PO (10:45)
[2024-09-04] MEDS: Sodium Chloride 0.9% for Inhalation 3 ML VIAL UPD ×2 (11:35→20:22)
[2024-09-04] MEDS: Acetylcysteine 20% *ORAL/INHALED* 6000 MG/30 ML VIAL 400 MG UPD ×2 (11:35→20:22)
[2024-09-04] MEDS: Albuterol 2.5 MG/3 ML INH SOLN VIAL UPD (11:58)
--- NOTE | 2024-09-04 12:26 | PT.INTREAT ---
PT Notes Visit Reasons: Respiratory failure, Trauma Inpatient Physical Therapy Treatment Note [facility] Date: 09/04/2024 PRECAUTIONS: Fall risk, n.p.o., PEG, oxygen via trach mask, IV access patient utilizes dry erase board or electrolarynx device to communicate SUBJECTIVE: Patient reporting he is in severe pain and needs to see an MD. [Nurse notified and pain meds given] OBJECTIVE: Patient presented sliding down in chair with increased lean to the left. ? Patient assisted to bed for safety with nurse [place] is present. Patient positioned semireclined with left lower extremity elevated on pillow trach mask in place? PAIN: Severe left lower extremity VITALS: ?Monitored via telemetry Therapeutic Activities (70505c[]): Direct one-on-one instruction in dynamic activities to improve functional performance. ?? Verbal cues for technique hand placement and safety throughout Sit to stand max assist of 2 inability to weight-bear on left lower extremity Stand to sit max assist of 2 Chair to bed toward right max assist of 2 due to inability to tolerate weightbearing left lower extremity Sit to semireclined in bed max assist of 1 Sit at edge of bed prior to lying down max assist of 1 due to increased lean to the left with inability to support self. ASSESSMENT: Patient reporting severe pain and leg patient noted an unsafe position with potential wrist to slide out of chair therefore placed back to bed pain meds given. Patient requiring max assist of 2 for transfers due to this pain this is a significant change from his ability on day prior when he did not have pain. PLAN: Plan of Care/Treatment Plan: 1-2x/day, 7 days/week x 1 week. Plan of care has been reviewed with the GLUE DRIER OPERATOR providing the service under Physical Therapy direction. Initiate Physical Therapy intervention for strengthening, bed mobility, transfers, gait, stairs, balance training, use of assistive device. DISCHARGE RECOMMENDATIONS: SNF TREATMENT CODE/TIME: 30045/0825?6745
--- NOTE | 2024-09-04 12:44 | W.PM.PROGNOT ---
Date of Service Date of service: 09/04/24 Time of Service: 12:44 Assessment and Plan Assessment and plan (1) Subdural hematoma, post-traumatic: Status: Acute Assessment and plan: Significant fall with question of small area of acute bleeding into old hematoma on right. No clear neurologic deficits, but exam limited as not cooperating Imaging and case reviewed by [facility]. They are not convinced there is any acute bleed, but recommend repeating the CT in 6 hours. If any evolution they will reconsider neurosurgical intervention. If f/u imaging does not reveal any change, can resume aspirin/anticoagulation as indicated. His persistence on going back to the ED is odd. He doesn't seem confused or delusional otherwise. Seems behavioral rather than neurologic. Observe closely in ICU 09/01/24 Per my discussion with Dr Yepez this am, he discussed the case with NS at [facility] who aren't seeing any changes from baseline. At this point, there doesn't appear to be any reason for transfer for acute interventions. Will continue to monitor mental status in the 09/02/24 Will start aspirin and monitor neuro exam. Possible d/c tomorrow 09/03/24 Notes reviewed from PT recommend SNF. Pt will most likely need to stay until Thursday for case management and planning issues 09/04/24 Awaiting placement (2) Acute and chronic respiratory failure with hypoxia: Status: Acute Assessment and plan: Without a clear new focal infection. This is typically relate to mucous plugging. Working with RTs who know him well now. Will admit to ICU for close supportive care. I don't think antibiotics or steroids indicated. As mentioned above, trying to see where the info about mrsa positive screen is at. Not in microbiology at least on my screen 09/01/24 CW wean as appropriate. Will dw RT durin MDR (3) PAOD (peripheral arterial occlusive disease): Status: Acute Assessment and plan: Newly noted on last admission right subclavian and celiac arteries without clear symtoms. Continue statin, resume ASA after second CT if reassuring as above. Will restart asa (4) Hypernatremia: Status: Acute Assessment and plan: Likely related to not being able to take free water. Resume tube feeds, can give some additional free water. Follow. 09/01/24 Resolved (5) On deep vein thrombosis (DVT) prophylaxis: Assessment and plan: TEDs/SCDs pending f/u CT as above. (6) Leg pain, left: Status: Acute Assessment and plan: Exact etiology is unknown. Considering that the pt does have a mural thrombus clot will order an usn of LLE as well as RLE with his new pain Subjective Subjective Interval history since last seen: Pt with RLE pain today. Exam Narrative Exam Narrative: GENERAL: Alert and oriented, no acute distress. HEENT: Normocephalic, stapled hemostatic laceration left synagogue/parietal scalp. PERRL/EOMI. no icterus. MOUTH: MMM, slight white film on tongue. NECK: Supple, no masses, Trachea midline. Tracheostomy. CV: Regular rate and rhythm, Normal s1 and s2. No murmurs, rubs, or gallops. CHEST: Chest symmetric with respirations. Lungs are clear to auscultation bilaterally. ABDOMEN: Soft, nondistended, nontender. PEG tube, site without surrounding erythema or drainager. BACK: No abrasions, skin openings, or ecchymosis. Spine without bony tenderness, no step offs. MSK: No gross deformities, no redness or swelling NEURO: CN grossly intact other than ptosis left. Moving extremities normally. He does not cooperate with exam as he seems upset about being taken from the ED. SKIN: Warm and well perfused. No rash scd in place LLE-DP/PT intact, no Vannessa's sign, no TTP RLE as above Objective Last Vital Signs Temp 36.8 C 09/04/24 08:01 Pulse 63 09/04/24 12:12 Resp 20 09/04/24 08:01 BP 121/82 09/04/24 08:01 Pulse Ox 96 09/04/24 08:01 Laboratory Results - last 24 hr 09/03/24 09/04/24 09/04/24 14:25 06:23 09:38 WBC 8.17 RBC 3.42 L Hgb 11.2 L Hct 35.2 L MCV 103 H MCH 32.7 MCHC 31.8 L RDW 12.7 Plt Count 181 MPV 10.3 Immature Gran % 0.5 Neutrophils % 71.6 Lymphocytes % 10.9 Monocytes % 11.5 Eosinophils % 4.3 Basophils % 1.2 Nucleated RBC % 0.0 Absolute Neutrophils 5.85 Absolute Lymphocytes 0.89 L Absolute Monocytes 0.94 H Absolute Eosinophils 0.35 Absolute Basophils 0.10 D-Dimer > 7500 H Sodium 147 H Potassium 4.2 Chloride 107 Carbon Dioxide 32.2 H Anion Gap 7.8 BUN 40 H Creatinine 0.8 Est GFR (CKD-EPI 2020) 90.58 Glucose 104 Calcium 8.9 Total Bilirubin 0.2 AST 36 ALT 26 Alkaline Phosphatase 184 H Total Protein 7.0 Albumin 2.8 L Time Spent with Patient Time Spent with Patient: 25-34 minutes Time was spent: preparing to see the patient(eg.review tests), obtaining and/or reviewing separately otained hiistory, ordering medications,tests, procedures, referring, communicating with other health before and after school daycare worker, indepentently interpreting results, counseling the patient and care coordination
--- NOTE | 2024-09-04 17:32 | RESPIRATORY ---
09/04/2024 Suctioned external part of stoma for a mod to large amount of thick yellow secretions including a large mostly dried mucous plug.
[2024-09-04] MEDS: Acetaminophen Solution 650 MG/20.3 ML CUP 1000 MG NG (20:31)
[2024-09-04] MEDS: Melatonin 3 MG TAB PO (20:34)
[2024-09-04] MEDS: Rosuvastatin 20 MG TAB 40 MG NG (20:34)
[2024-09-05] VITALS (8 sets, daily range): BP systolic 105–166; BP diastolic 49–71; PULSE 55–78; RESP 2–19; TEMP 36.2–36.9; O2SAT 94–99
--- NOTE | 2024-09-05 | DI.US_ITS ---
Exam(s) US EXTREMITY VENOUS BI EXAM: US EXTREMITY VENOUS BI CLINICAL HISTORY: LLE AND RLE PAIN TECHNIQUE: Grayscale, color, and doppler imaging of the deep venous system of both lower extremities was performed. COMPARISON: US US ECHOCARDIOGRAM from 08/17/2024 FINDINGS: There is no evidence of intraluminal thrombus and there is normal compression and augmentation demons trated within the common femoral veins, femoral veins, and popliteal veins of both lower extremities. In the calves the interrogated veins also exhibit normal compression/ augmentation properties. The greater saphenous veins also appear patent as do the saphenofemoral junctions bilaterally.. IMPRESSION: 1. No ultrasound evidence of DVT in either lower extremity. DATA REPOSITORY:
[2024-09-05] MEDS: MORPHine 2 MG/ML SYR IVP ×5 (05:49→20:24)
[2024-09-05 06:45] LABS: Abs Immature Grans 0.04 10^3/uL (0.0-0.06); Absolute Basophil Count 0.13 10^3/uL (0.0-0.2); Absolute Eosinophil Count 0.46 10^3/uL (0.0-0.7); Absolute Lymphocyte Count 0.87 10^3/uL (1.2-3.4); Absolute Monocyte Count 0.76 10^3/uL (0.1-0.8); Absolute Neutrophil Count 4.57 10^3/uL (1.2-6.7); Basophils % 1.9 %; Eosinophils % 6.7 %; HCT 34.9 % (40.0-50.0); HGB 11.2 g/dL (13.5-17.5); Immature Grans % 0.6 %; Lymphocytes % 12.7 %; MCH 32.8 pg (27.0-33.0); MCHC 32.1 % (32.0-36.0); MCV 102 fL (80-95); MPV 10.4 fL (8.0-11.0); Monocytes % 11.1 %; Platelet Count 224 10^3/uL (130-400); RBC 3.41 10^6/uL (4.36-5.78); RDW 12.7 % (11.8-14.1); RDW-SD 47.7 fL; WBC 6.83 10^3/uL (4.4-10.8)
[2024-09-05 07:07] LABS: ALT 23 U/L (16-63); AST 31 U/L (15-37); Albumin 2.5 g/dL (3.4-5.0); Alkaline Phosphatase 162 U/L (46-116); Anion Gap 4.4 mmol/L (3-11); BUN 37 mg/dL (7-18); Bilirubin, Total 0.2 mg/dL (0.2-1.0); CO2 34.6 mmol/L (21.0-32.0); CREATININE 0.8 mg/dL (0.70-1.30); Calcium 8.7 mg/dL (8.5-10.1); Chloride 109 mmol/L (98-107); Estimated GFR 90.58 (mL/min/1.73m2); Glucose 109 mg/dL (74-106); Potassium 4.1 mmol/L (3.5-5.1); Sodium 148 mmol/L (136-145); Total Protein 6.3 g/dL (6.4-8.2)
--- NOTE | 2024-09-05 08:43 | PDOC.CMPRO ---
Date of service: 09/05/24 Time of Service: 08:43 Care Management Progress Note Progress Note Text Progress Note Text: Pineda was sitting up in bed when CM met with him. He has received a bed offer from [facility] and accepted the offer. He was supposed to transfer today but began experiencing sever leg pain. An ultrasound was ordered and ruled out a DVT however Pineda was still in pain. The decision was made to postpone his discharge until tomorrow to allow for an additional period of observation. Sarkis's partner Kiara came to visit this afternoon and agreed to bring in an oxygen tank from home for the transport. [facility] notofied CM that they may not have a tube feeding pump when he arrives and asked if they might borrow one. That is not an approved practice at [facility], however 2 days worth of tube feeding solution will be provided. The TF can be delivered by gravity (bolus) until the pump arrives from their DME provider. Discharge Potential Discharge Needs: PCP F/U Appt Anticipated Barriers to Discharge: None Identified Patient/Family Education Needs: Review discharge instructions, discuss Ask Me Three Transportation: RCT Plan: Anticipate Chan will be transferred to a SNF for short term rehab prior to returning home. He will follow up with the facility providers and plan of care. Transportation will be determined by disposition. CM will follow and continue to assess for discharge planning concerns. Social Determinants of Health Screening Will the Patient Participate in the Screening?: Unable to obtain
[2024-09-05] MEDS: Acetylcysteine 20% *ORAL/INHALED* 6000 MG/30 ML VIAL 400 MG UPD ×2 (08:53→19:45)
[2024-09-05] MEDS: Sodium Chloride 0.9% for Inhalation 3 ML VIAL UPD ×2 (08:53→19:45)
[2024-09-05] MEDS: Metoprolol 12.5 MG TAB NG ×2 (09:22→20:26)
[2024-09-05] MEDS: rOPINIRole 1 MG TAB 0.5 MG NG ×2 (09:24→20:26)
[2024-09-05] MEDS: Aspirin 81 MG CHEW NG (09:25)
[2024-09-05] MEDS: Sertraline 100 MG TAB NG (09:25)
[2024-09-05] MEDS: Finasteride 5 MG TAB NG (09:25)
[2024-09-05] MEDS: Gabapentin 300 MG CAP NG ×3 (09:25→20:26)
[2024-09-05] MEDS: Levothyroxine 88 MCG TAB NG (09:27)
[2024-09-05] MEDS: Tamsulosin 0.4 MG CAPCR PO (09:29)
[2024-09-05] MEDS: levETIRAcetam Oral Solution 100 MG/ML 500 MG NG ×2 (09:30→20:25)
[2024-09-05] MEDS: Normal Saline Flush 10 ML SYR IVP ×2 (10:13→20:25)
[2024-09-05] MEDS: Sulfameth/Trimeth 40-8 mg per ml 5 ML NG ×2 (10:13→20:29)
--- NOTE | 2024-09-05 11:42 | NUR.NOTE ---
patient AxOx4 this shift, still c/o severe BLE pain with L>R. Pending u/s this afternoon. If all is well patient may go to SNF. Assessment WNL, pt on chronic trach mask at 4L nc with humidification, no cough, able to take clear liquids by mouth otherwise all meds/feeds through G tube, will replace G tube dsg today, stood and took a few steps with PT to chair using walker, fair tolerance but noticeably weak. L scalp incision with graeme ROSA. Patient reports pain improved with IV morphine dosing. Sitting in chair with chair alarm on, call jung in reach, denies further needs. Nursing Note:
--- NOTE | 2024-09-05 11:46 | PT.INTREAT ---
Date of service: 09/05/24 Time of Service: 11:15 PT Notes Visit Reasons: Respiratory failure, Trauma Inpatient Physical Therapy Treatment Note [facility] Date: 09/05/2024 PRECAUTIONS: Fall risk, n.p.o., PEG, oxygen via trach mask, IV access patient utilizes dry erase board or electrolarynx device to communicate SUBJECTIVE: Patient continuing to report LE pain that he rates at a 5 out of 10 on 0-10 pain scale. Good with going bed to chair but not interested in doing any chair exercises. OBJECTIVE: ? PAIN: Continued complaints of LE pain rated at 5 out of 10, both before and after transfer to chair. Vitals noted to be doing good per Nurse Mo. ? Therapeutic Activities (85240c6): Direct one-on-one instruction in dynamic activities to improve functional performance. ?? Verbal cues for technique hand placement and safety throughout, did lift right UE off walker to reach for chair once within reach chair. Sit to stand with mod assist of one, as well as nursing stabilizing walker. Stand to sit mod assist of 2 Bed to recliner toward right with min- mod assist of 2, but displayed unsafe practice of letting go of walker and reaching for chair before getting himself backup to chair. Patient was able to help shift his weight to center of chair and was propped up with pillows and wedge to avoid excessive leaning to the right. Call jung given to patient. ASSESSMENT: Doing a little better today with mobility and movement was reported to not have increased his pain level. PLAN: To be seen for continued mobility training for improved ADL skills. Possibly being transferred to SNF this afternoon for further rehab, if nothing noted with further testing at noon. DISCHARGE RECOMMENDATIONS: SNF TREATMENT CODE/TIME: 07632/11:15 to 11:35 am
--- NOTE | 2024-09-05 15:08 | NUR.NOTE ---
palliative consulted and speaking with pt at this time. Nursing Note:
--- NOTE | 2024-09-05 15:32 | W.PALPGNOTE ---
Date of service: 09/05/24 Time of Service: 15:00 Assessment and Plan Assessment and plan (1) Fall: Status: Acute Assessment and plan: high risk for recurrent falls - caregiver unable to pick pulling machine operator in home, unable to get in/out home safely at this time PT w/recommendations for SNF (2) Leg pain: Status: Acute Assessment and plan: etiology remains pending - considering vascular occlusion morphine w/good effect; currently ordered morphine IV 2mg q3h PRN, no changes recommended today - consider changes pending dispo after 2 weeks, consider more frequent or LA medication in future (3) Weakness: Assessment and plan: plans for d/c to H/R for acute SNF - reviewed suspicion for little/no recovery from current condition (4) Uses feeding tube: Status: Acute (5) Caregiver stress: Assessment and plan: Kiara is unable to care for Pineda at home at this time, he has not been able to safely get into home - would consider taking him home on hospice pending rehab recovery - to consider in future, previously added to hospice watch list (6) Palliative care patient: Assessment and plan: PC previously scheduled HV f/u on 09/15, will plan to conduct visit at H/R and consider next steps: remain at SNF for rehab vs local intermodal truck driver w/EOL supports vs home on hospice - consider revisiting intubation considerations pending f/u plans recommend continue morphine for pain support, palliative happy to fill outpatient if needed (7) Advance care planning: Assessment and plan: reviewed current COLST and CODE status preferences; after meeting alone with PC on Thursday, he reviewed COLST w/CM and Kiara, Kiara and Pineda decided together they would want a trial intubation for 1-2 weeks to see if he could get better; completed new COLST w/updated preferences - reviewed with Pineda importance of sharing what he wants for him, not defering to Kiara, since he can still make his own decisions, agrees he wants care as long as Pineda can be Pineda, reviewed how today he feels he is still him. He is deferring Kiara for making future changes, as he feels she knows; Kiara would like to include other family, but is aware she is his HCA and ultimately responsible for his HC decisions IF he cannot make them for himself - reviewed current plan to d/c to SNF with idea of rehab helping improve strength, re-evaluate in 2 weeks, if no better/no improvement/worse consider going home w/hospice supports - reviewed he cannot go home w/o hospice supports, unless a caregiving plan were to change, to date, no plans to do this; Kiara feels comfortable taking him home w/hospice supports, d/t 24h nature of service; reviewed they do not provide 24/7 caregiving, but could answer the phone and help problem solve if he were to acutely require assistance spent 20m w/ACP Subjective Subjective Interval history since last seen: Pineda remains hospitalized at [facility] 2/2 leg pain - plan for discharge tomorrow to H/R for SNF per staff: continues to complain of 8/10 pain BLEs, lowest score 5/10, even w/morphine. continues gabapentin as well; morphine w/some effect on pain; is a 1 person mod-max assist w/ADLs, did get up to chair w/PT today; needs encouragement w/participation - BLE US of legs, negative for DVT; considering vascular occlusion/ishcemia as etiology per known vascular disease Pineda and Kiara reviewed his COLST form after completion on Thursday last week, and together determined he would want to try intubation for a short time to see if he could get better. A trial of 1-2 weeks. Pineda is turning more and more to Kiara for making decisions for him, and he would want to defer to her in future for decisions, as possible. He does want a trial of things currently, to see if he would get better, if not, then would want to consider hospice style care - he is only agreeing to SNF for acute time, to see if he can regain some strength to relocate home. He would want to be home with hospice supports for Kiara if he cannot improve to being safe at home. I am going home would like better pain management today. Exam Narrative Exam Narrative: General: older adult, chronically and acutely ill/frail appearing; only able to understand 10% of speech, despite use of voice box (previously able to understand >50%) HEENT: normocephalic, hearing grossly WN; edentulous; mask covering trach stoma Resp: even and unlabored, speech limited; no cough or audible wheeze Ext: actively scratching, w/excoriation, worse on LUE antecubital space w/active bleeding Psych: turns and defers to Kiara to answer questions; thought process WNL, blunted, fatigued, cooperative Objective Last Vital Signs Temp 97.7 F 09/05/24 11:05 Pulse 55 L 09/05/24 11:05 Resp 10 L 09/05/24 11:05 BP 109/59 L 09/05/24 11:05 Pulse Ox 99 09/05/24 11:05 Laboratory Results - last 24 hr 09/05/24 06:19 WBC 6.83 RBC 3.41 L Hgb 11.2 L Hct 34.9 L MCV 102 H MCH 32.8 MCHC 32.1 RDW 12.7 Plt Count 224 MPV 10.4 Immature Gran % 0.6 Neutrophils % 67.0 Lymphocytes % 12.7 Monocytes % 11.1 Eosinophils % 6.7 Basophils % 1.9 Nucleated RBC % 0.0 Absolute Neutrophils 4.57 Absolute Lymphocytes 0.87 L Absolute Monocytes 0.76 Absolute Eosinophils 0.46 Absolute Basophils 0.13 Sodium 148 H Potassium 4.1 Chloride 109 H Carbon Dioxide 34.6 H Anion Gap 4.4 BUN 37 H Creatinine 0.8 Est GFR (CKD-EPI 2020) 90.58 Glucose 109 H Calcium 8.7 Total Bilirubin 0.2 AST 31 ALT 23 Alkaline Phosphatase 162 H Total Protein 6.3 L Albumin 2.5 L
[2024-09-05] MEDS: Acetaminophen Solution 650 MG/20.3 ML CUP 1000 MG NG (16:41)
--- NOTE | 2024-09-05 19:00 | PGE_ITS ---
Date of Service Date of service: 09/05/24 Time of Service: 19:00 Assessment and Plan Assessment and plan (1) Subdural hematoma, post-traumatic: Status: Acute Assessment and plan: Significant fall with question of small area of acute bleeding into old hematoma on right. No clear neurologic deficits, but exam limited as not cooperating Imaging and case reviewed by [facility] Neurosurgery. They are not convinced there is any acute bleed, but recommend repeating the CT in 6 hours. If any evolution they will reconsider neurosurgical intervention. If f/u imaging does not reveal any change, can resume aspirin/anticoagulation as indicated. His persistence on going back to the ED is odd. He doesn't seem confused or delusional otherwise. Seems behavioral rather than neurologic. Observe closely in ICU 09/01/24 Per my discussion with Dr Yepez this am, he discussed the case with NS at [facility] who aren't seeing any changes from baseline. At this point, there doesn't appear to be any reason for transfer for acute interventions. Will continue to monitor mental status in the 09/02/24 Will start aspirin and monitor neuro exam. Possible d/c tomorrow 09/03/24 Notes reviewed from PT recommend SNF. Pt will most likely need to stay until Thursday for case management and planning issues 09/04/24 Awaiting placement 09/05/24 Accepted for xfer but still with severe leg pain. Will add neurontin (2) Acute and chronic respiratory failure with hypoxia: Status: Acute Assessment and plan: Without a clear new focal infection. This is typically relate to mucous plugging. Working with RTs who know him well now. Will admit to ICU for close supportive care. I don't think antibiotics or steroids indicated. As mentioned above, trying to see where the info about mrsa positive screen is at. Not in microbiology at least on my screen 09/01/24 CW wean as appropriate. Will dw RT durin MDR 09/05/24 Satting 94% on 4L venti mask. RR 12 (3) PAOD (peripheral arterial occlusive disease): Status: Acute Assessment and plan: Newly noted on last admission right subclavian and celiac arteries without clear symtoms. Continue statin, resume ASA after second CT if reassuring as above. Will restart asa (4) Hypernatremia: Status: Acute Assessment and plan: Likely related to not being able to take free water. Resume tube feeds, can give some additional free water. Follow. 09/01/24 Resolved (5) On deep vein thrombosis (DVT) prophylaxis: Assessment and plan: TEDs/SCDs pending f/u CT as above. (6) Leg pain, left: Status: Acute Assessment and plan: Exact etiology is unknown. Considering that the pt does have a mural thrombus clot will order an usn of LLE as well as RLE with his new pain 09/05/24 PT actually complained of bilateral leg pain. Bilat THIAGO USN negative. Consider neurogenic vs vascular. Will start on neurontin Consider vascular work up as an outpatient as this appears to be a long standing issue Subjective Subjective Interval history since last seen: pt does complain of bilat leg pain Exam Narrative Exam Narrative: General: older adult, chronically and acutely ill/frail appearing; only able to understand 10% of speech, despite use of voice box (previously able to understand >50%) HEENT: normocephalic, hearing grossly WN; edentulous; mask covering trach stoma Resp: even and unlabored, speech limited; no cough or audible wheeze ext: dp/pt intact bilat no manisha's sign bilat. decreased muscle mass throughout abd: ostomy appliance in place Objective Last Vital Signs Temp 36.4 C L 09/05/24 16:11 Pulse 64 09/05/24 16:11 Resp 12 09/05/24 16:11 BP 132/54 L 09/05/24 16:11 Pulse Ox 94 09/05/24 16:11 Laboratory Results - last 24 hr 09/05/24 06:19 WBC 6.83 RBC 3.41 L Hgb 11.2 L Hct 34.9 L MCV 102 H MCH 32.8 MCHC 32.1 RDW 12.7 Plt Count 224 MPV 10.4 Immature Gran % 0.6 Neutrophils % 67.0 Lymphocytes % 12.7 Monocytes % 11.1 Eosinophils % 6.7 Basophils % 1.9 Nucleated RBC % 0.0 Absolute Neutrophils 4.57 Absolute Lymphocytes 0.87 L Absolute Monocytes 0.76 Absolute Eosinophils 0.46 Absolute Basophils 0.13 Sodium 148 H Potassium 4.1 Chloride 109 H Carbon Dioxide 34.6 H Anion Gap 4.4 BUN 37 H Creatinine 0.8 Est GFR (CKD-EPI 2020) 90.58 Glucose 109 H Calcium 8.7 Total Bilirubin 0.2 AST 31 ALT 23 Alkaline Phosphatase 162 H Total Protein 6.3 L Albumin 2.5 L Time Spent with Patient Time Spent with Patient: 35-49 minutes Time was spent: preparing to see the patient(eg.review tests), obtaining and/or reviewing separately otained hiistory, ordering medications,tests, procedures, referring, communicating with other health patient care assistant, indepentently interpreting results, counseling the patient and care coordination
[2024-09-05] MEDS: Rosuvastatin 20 MG TAB 40 MG NG (20:25)
[2024-09-05] MEDS: Melatonin 3 MG TAB PO (20:26)
[2024-09-06] MEDS: MORPHine 2 MG/ML SYR IVP (07:17)
[2024-09-06] MEDS: Normal Saline Flush 10 ML SYR IVP (07:17)
[2024-09-06 07:20] LABS: Abs Immature Grans 0.07 10^3/uL (0.0-0.06); Absolute Basophil Count 0.15 10^3/uL (0.0-0.2); Absolute Eosinophil Count 0.51 10^3/uL (0.0-0.7); Absolute Monocyte Count 0.85 10^3/uL (0.1-0.8); Absolute Neutrophil Count 7.64 10^3/uL (1.2-6.7); Basophils % 1.5 %; HCT 37.7 % (40.0-50.0); HGB 11.7 g/dL (13.5-17.5); Immature Grans % 0.7 %; Lymphocytes % 8.9 %; MCH 32.6 pg (27.0-33.0); MCV 105 fL (80-95); MPV 10.2 fL (8.0-11.0); Monocytes % 8.4 %; Neutrophils % 75.5 %; Platelet Count 235 10^3/uL (130-400); RBC 3.59 10^6/uL (4.36-5.78); RDW 12.6 % (11.8-14.1); RDW-SD 48.6 fL; WBC 10.12 10^3/uL (4.4-10.8)
[2024-09-06 07:37] LABS: ALT 27 U/L (16-63); AST 32 U/L (15-37); Albumin 2.6 g/dL (3.4-5.0); Alkaline Phosphatase 187 U/L (46-116); Anion Gap 4.7 mmol/L (3-11); BUN 35 mg/dL (7-18); Bilirubin, Total 0.2 mg/dL (0.2-1.0); CO2 32.3 mmol/L (21.0-32.0); CREATININE 0.8 mg/dL (0.70-1.30); Chloride 106 mmol/L (98-107); Estimated GFR 90.58 (mL/min/1.73m2); Glucose 131 mg/dL (74-106); Potassium 4.2 mmol/L (3.5-5.1); Sodium 143 mmol/L (136-145); Total Protein 6.7 g/dL (6.4-8.2)
[2024-09-06 07:55] VITALS: BP 133/64; PULSE 76; RESP 18; TEMP 36.8; O2SAT 93
[2024-09-06] MEDS: Acetylcysteine 20% *ORAL/INHALED* 6000 MG/30 ML VIAL 400 MG UPD (08:20)
[2024-09-06 08:21] VITALS: RESP 2; RESP 9
[2024-09-06] MEDS: Sodium Chloride 0.9% for Inhalation 3 ML VIAL UPD (08:21)
[2024-09-06] MEDS: rOPINIRole 1 MG TAB 0.5 MG NG (09:14)
[2024-09-06] MEDS: Levothyroxine 88 MCG TAB NG (09:14)
[2024-09-06] MEDS: Finasteride 5 MG TAB NG (09:14)
[2024-09-06] MEDS: Aspirin 81 MG CHEW NG (09:14)
[2024-09-06] MEDS: Metoprolol 12.5 MG TAB NG (09:14)
[2024-09-06] MEDS: Tamsulosin 0.4 MG CAPCR PO (09:14)
[2024-09-06] MEDS: Sertraline 100 MG TAB NG (09:14)
[2024-09-06] MEDS: levETIRAcetam Oral Solution 100 MG/ML 500 MG NG (09:24)
[2024-09-06] MEDS: Sulfameth/Trimeth 40-8 mg per ml 5 ML NG (09:25)
[2024-09-06] MEDS: Gabapentin 300 MG CAP 600 MG NG (09:35)
--- NOTE | 2024-09-06 09:53 | CMDISCH_ITS ---
Date of service: 09/06/24 Time of Service: 09:53 LACE Index Scoring Tool Questions: Length of Stay (in days): 4 - 6 Was the patient admitted via the E.D.?: Yes Comorbidities: Previous M.I., Chronic Pulmonary Disease and Any Tumor E.D. Visits: 13 Answers: Total Score: 16 Risk of Readmission: High Risk Care Management Discharge Plan Reason for Hospitalization: subdural hematoma Discharge Plan: Pineda will be transferred to [facility] for short term rehab. He will follow up with the facility providers and plan of care and transport via RCT coordinated by CM. Patient/Family Education Needs: Expectations, limitations, follow up plan, discuss Ask Me Three. Services Needed at Discharge: [facility] Facility SDOH Health Related Social Needs: No Data to Display
[2024-09-06 10:30] LABS: Creatine Kinase 56 U/L (39-308)
[2024-09-06 11:23] VITALS: PULSE 62; RESP 14; TEMP 36.8; O2SAT 89
--- NOTE | 2024-09-06 11:51 | PTTR_ITS ---
PT Notes Visit Reasons: Respiratory failure, Trauma Inpatient Physical Therapy Treatment Note [facility] Date: 09/06/24 SUBJECTIVE:Pineda states that he is going to rehab in about an hour or so. Initially not interested in participating in PT. Kiara reminded him that in o rder to get home he needs to get stronger. Pineda then agreed to participate. Declined walking due to pain in B LE. States that he is only willing because he loves Kiara and is doing it for her. OBJECTIVE: []? PAIN: BLE. No pain rating given. VITALS: ?monitored by nursing. BED MOBILITY/TRANSFERS? seated in recliner.? Sit-stand: min A of 1 ? Stand-sit: CGA? Provided skilled cues and instruction on performance and technique throughout. ? Therapeutic Exercises ([id number]): Direct one-on-one instruction in therapeutic exercises to develop strength, endurance, range of motion and flexibility. ? Exercises ?seated: LAQ, hip flexion/ marching, manually resisted hip abd, and heel/toe raises x10-15 of each. sit to stand transfers x3. ? Provided skilled instruction in proper exercise performance ASSESSMENT:? lots of encouragement required. Once he started he went through his routine without any complaints until wt bearing. This increased his pain. PLAN: D/c to SNF this pm. TREATMENT CODE/TIME: 15 min ([id number])
--- NOTE | 2024-09-06 12:19 | DSE_ITS ---
Date of service: 09/06/24 Time of Service: 12:20 DS: Diagnosis Discharge Diagnosis (1) Subdural hematoma, post-traumatic: Status: Acute (2) Acute and chronic respiratory failure with hypoxia: Status: Acute (3) PAOD (peripheral arterial occlusive disease): Status: Acute (4) Hypernatremia: Status: Acute (5) Impaired instrumental activities of daily living: Status: Acute (6) Advance care planning: (7) Palliative care patient: Discharge Plan Disposition Patient Disposition: Alf Facility(SNF) Condition: Stable Discharge Details Reason For Visit: Respiratory failure, Trauma Admit Date/Time: 08/31/24 21:20 Admit Provider: Dwayne Lozada Attending Provider: Dwayne Lozada Primary Care Provider: Nazia Chan Hospital Course Hospital Course: 79 year old male with a past medical history of laryngeal cancer status post laryngectomy, oxygen dependent on 6 L at home via trach mask for chronic respiratory failure, bilateral subdural hematomas, COPD, feeding tube, hypothyroidism, hypertension, recently 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 He had a large laceration on his scalp stapled in the ED. Head CT was concerning for possible fresh bleeding into an area of subdural old hematoma. CT of Chest/Abd/Pelvis was benign. In consultation with [facility] neurosurgery the CT was repeated and per [facility] there was no changes in his chronic hematoma or other new process in the brain. Aspirin for his vascular disease was resumed. He had worsening of his chronic hypoxic respiratory failure on presentation. This stabilized with supportive care and he was stable on his 6 liters per trachostomy. Saline nebs were added to help clear secretions. Hypernatremia resolved with hydration. He was seen by palliative care and goal of care reviewed. COLST updated to DNR, short trial of intubation. He agreed to SNF placement with support from his partner. He had worsening of his chronic constant burning leg pain in bilateral lower legs. He had LE vascular ultrasounds that were negative for DVT. X-ray of the left foot (pain initially worse on left and he had fallen on this side) was normal. He did not have pain in joints with ROM or muscle tenderness. Pedal pulses were intact with warm extremities. CPK was normal at 56. His gabapentin was increased from 300mg to 600mg. He was seen by PT and did not have additional pain with going from bed to chair. Ongoing PT at [facility] was recommended. Home Meds and New Rx's Prescriptions: New sodium chloride 0.9 % Solution For Nebulization 3 ml UPD BID Qty: 0 0RF Continued acetaminophen [Tylenol Extra Strength] 500 mg tablet 1,000 mg PO BID PRN tamsulosin [Flomax] 0.4 mg capsule 0.4 mg PO DAILY Qty: 90 3RF finasteride 5 mg tablet 5 mg PO DAILY Qty: 90 3RF omeprazole 20 mg capsule,delayed release(DR/EC) 20 mg feeding tube BID Qty: 90 4RF acetylcysteine 100 mg/mL (10 %) solution 4 ml inhalation BID metoprolol succinate 25 mg tablet extended release 24 hr 25 mg PO DAILY rosuvastatin 40 mg tablet 40 mg feeding tube HS Qty: 90 4RF polyethylene glycol 3350 [Miralax] 17 gram/dose powder 17 g PO DAILY PRN (Reason: constipation) Rx Instructions: 06/19/22 instructed by PCP to take 1/2 cap daily, may reduce to half cap three times per week if daily is too much nystatin 100,000 unit/gram powder 1 applic topical BID Qty: 60 12RF sulfamethoxazole-trimethoprim 200-40 mg/5 mL suspension 5 ml PO BID 28 Days Qty: 280 6RF acetylcysteine 600 mg capsule See Rx Instructions .ROUTE .COMPLEX Qty: 60 12RF Dose Instruction: TAKE ONE CAPSULE BY MOUTH TWICE A DAY Rx Instructions: TAKE ONE CAPSULE BY MOUTH TWICE A DAY melatonin 3 MG tablet 3 mg PO HS levetiracetam 500 mg tablet 500 mg PO BID Patient Comments: TAKE ONE TABLET BY MOUTH TWICE A DAY ipratropium-albuterol 0.5 mg-3 mg(2.5 mg base)/3 mL solution for nebulization 3 ml IN BID Rx Instructions: increased dose/use treatment 4 times/day as needed NOT SENT levothyroxine 88 mcg tablet 88 mcg PO DAILY Patient Comments: TAKE ONE TABLET BY MOUTH EVERY DAY sertraline 100 mg tablet 100 mg PO DAILY Patient Comments: TAKE ONE TABLET BY MOUTH EVERY DAY ropinirole 1 mg tablet 0.5 mg PO BID Qty: 0 0RF ferrous sulfate [Feosol] 325 mg (65 mg iron) tablet 325 mg PO DAILY Align Jr 10.5 mg (10 million cell) tablet,chewable 10.5 mg PO DAILY aspirin [Children's Aspirin] 81 mg Tablet,Chewable 81 mg CH DAILY Qty: 30 0RF Changed gabapentin 300 mg capsule 600 mg PO TID Qty: 360 3RF Discharge Instructions Additional Instructions: Continue routine supportive respiratory care to avoid mucous plugging. Activity:: bed to chair Equipment/Supplies:: Oxygen (L/min Below) Diet:: As Tolerated Discharge Orders Discharge Orders: Discharge Order (Routine); Ordered 09/06/24 Ordered By: Dwayne Lozada DS: Summary Time Spent with Patient providing and/or coordinating discharge services: Greater than 30 minutes Status at Discharge Functional status at discharge: bed bound Overall status at discharge: patient is progressing back to baseline Mental Status: mental status grossly normal Speech and Movement: speech and movement normal Mood: congruent mood Affect: normal affect Quality:SDOH Health Related Social Needs: No Data to Display Exam Narrative Exam Narrative: General: older adult, chronically and acutely ill/frail appearing; only able to understand about 50% of speech, despite use of voice box HEENT: normocephalic, hearing grossly WN; edentulous; mask covering trach stoma Resp: even and unlabored, speech limited; no cough or audible wheeze ext: dp/pt intact bilat no manisha's sign bilat. decreased muscle mass throughout. No muscle tenderness. no cords. no pain with ROM hips/knees/ankles, no joint redness/swelling abd: ostomy appliance in place Psych Mental Status: mental status grossly normal Speech and Movement: speech and movement normal Mood: congruent mood Affect: normal affect DS: Data Vitals/I&O Vitals and I&O: Vital Signs Temperature 36.8 C 09/06/24 11:23 Temperature Source Temporal Artery Scan 09/06/24 11:23 Pulse 62 09/06/24 11:23 Pulse 70 09/02/24 16:01 Respiratory Rate 14 09/06/24 11:23 Respiratory Effort Non-Labored 09/01/24 00:21 Respiratory Depth Normal 09/01/24 00:21 Respiratory Pattern Normal 09/01/24 00:21 Blood Pressure 133/64 09/06/24 07:55 Blood Pressure Mean 101 09/02/24 16:01 Blood Pressure Position Supine 09/01/24 00:21 Pulse Oximetry 89 L 09/06/24 11:23 Oxygen Delivery Method Trach Collar 09/06/24 11:23 Oxygen Flow Rate 4 09/06/24 11:23 Fraction of Inspired Oxygen (FIO2) 28 09/06/24 08:21 Pain Level 10 09/06/24 07:17 Comment RN notified 09/05/24 08:16 Intake & Output 09/05/24 09/06/24 09/06/24 23:59 11:59 23:59 Intake Total 270 / 1602 Output Total 350 / 675 300 / 300 Balance -80 / 927 -300 / -300 Weight 59 kg Intake: Oral 270 / 270 Output: Urine 350 / 675 300 / 300 Other: Urine Color Straw Yellow Urine Appearance Cloudy Clear Urine Odor None Comment unmeasured incontinent amount Data Completed and Pending Labs on day of discharge: Labs from last 24 hours 09/06/24 07:00 WBC 10.12 RBC 3.59 L Hgb 11.7 L Hct 37.7 L MCV 105 H MCH 32.6 MCHC 31.0 L RDW 12.6 Plt Count 235 MPV 10.2 Immature Gran % 0.7 Neutrophils % 75.5 Lymphocytes % 8.9 Monocytes % 8.4 Eosinophils % 5.0 Basophils % 1.5 Nucleated RBC % 0.0 Absolute Neutrophils 7.64 H Absolute Lymphocytes 0.90 L Absolute Monocytes 0.85 H Absolute Eosinophils 0.51 Absolute Basophils 0.15 VBG Lactate 2.0 Sodium 143 Potassium 4.2 Chloride 106 Carbon Dioxide 32.3 H Anion Gap 4.7 BUN 35 H Creatinine 0.8 Est GFR (CKD-EPI 2020) 90.58 Glucose 131 H Calcium 9.0 Total Bilirubin 0.2 AST 32 ALT 27 Alkaline Phosphatase 187 H Creatine Kinase 56 Total Protein 6.7 Albumin 2.6 L PFSH All Active Problems (Updated 09/03/24 @ 13:58 by Emanuel Fam MD) Leg pain, left (Acute) Acute hypoxemic respiratory failure (Acute) Laceration of scalp (Acute) Acute hypotension (Acute) Fall (Acute) Subdural hematoma, post-traumatic (Acute) Hypernatremia (Acute) Right subclavian artery occlusion (Acute) Leg pain (Acute) Tracheostomy in place (Acute) Occlusion of celiac artery (Acute) Urinary tract infection (Acute) Acute and chronic respiratory failure with hypoxia (Acute) Foreign body sensation, throat (Acute) Right clavicle fracture (Acute 08/30/23) Syncope (Chronic) Ground glass opacity present on imaging of lung (Acute) Subdural hematoma (Acute) Pulmonary edema (Acute) Fracture of thumb, left, closed (Acute) Acute non-ST elevation myocardial infarction (NSTEMI) (Acute) Arm pain (Acute) Hemoptysis (Acute) Nausea & vomiting (Acute) Regurgitation of food (Acute) Pulmonary embolism (Chronic) Uses feeding tube (Acute) Gross hematuria (Acute) Ambulatory dysfunction (Acute) Leukocytosis (leucocytosis) (Acute) UTI (urinary tract infection) (Acute) Multiple subsegmental pulmonary emboli without acute cor pulmonale (Acute) C1 cervical fracture (Acute) Gastrostomy tube dysfunction (Acute) Encounter for hospice care discussion (Acute) Unintentional weight loss of 10% body weight within 6 months (Acute) Dysuria (Acute) Malfunctioning jejunostomy tube (Acute) Need for follow-up by secondary social studies teacher (Acute) Dysphagia (Acute) Impaired instrumental activities of daily living (Acute) Plantar fascial fibromatosis (Acute) Feeding tube dysfunction (Acute) Sensorineural hearing loss (SNHL) of both ears (Acute) Otalgia of right ear (Acute) Neck pain on right side (Acute) Neck pain on right side (Acute) Full code status (Acute) Need for home health care (Acute) MRSA pneumonia (Acute) pt likely colonized Occlusion of right vertebral artery (Acute) Hypoxemia (Acute) Complication of feeding tube (Acute) Compression fracture of thoracolumbar vertebra (Acute) PAOD (peripheral arterial occlusive disease) (Acute) Dependence on supplemental oxygen (Chronic) COPD (chronic obstructive pulmonary disease) (Chronic) Peripheral neuropathy (Acute 02/21/15) Laryngeal cancer (Acute) 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 (Acute) Medical History Recurrent syncope Laceration of occipital region of scalp Fall Orthostatic hypotension Palliative care patient Caregiver stress Advance care planning Weakness G tube feedings 20F 3.0cm 11/30/22. Routine change every 4 months. 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 Hypertension Tobacco use COPD (chronic obstructive pulmonary disease) Post herpetic neuralgia Hypothyroidism Hyperlipemia Depression Anxiety Conjunctivitis, chronic Surgical History S/P AAA (abdominal aortic aneurysm) repair Status post laryngectomy History of esophagogastroduodenoscopy (EGD) (~08/10/19) Daron Casper APRN @ [facility] [place]: hiatal hernia, GERD, Reyes's esophagitis, neuromuscular dysfunction History of laryngectomy Status post cardiac catheterization Status post cataract extraction and insertion of intraocular lens of right eye (07/12/18) History of tarsorrhaphy Status post cataract extraction and insertion of intraocular lens of left eye (04/30/12) 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) Sin-mullins button placed by Dr Elia Mcdonald, [facility] PROCEDURES RT/LEFT HEART CARD CATH COMPLETE LARYNGECTOMY Esophagoplasty EGD - MAC (07/06/17) Colonoscopy - MAC (12/22/16) History of radical laryngectomy Family History Nephew Throat cancer Maternal Cousin Cancer Social History (Updated 08/31/24 @ 23:12 by Dwayne Lozada) Smoking/Tobacco Use Status: Former Tobacco Use Quit Date: 04/23/13 Tobacco: How many years used: 20 Smoking risk assessment performed?: Yes Alcohol Intake: never Drug use: Never Substance use type: does not use Housing: house Current gender identity: male Do you feel safe at home: Yes Do you feel safe in your relationship?: Yes Additional Social history: Lives with partner/caregiver Kiara caraballo in [place] Time Spent with Patient Time Spent with Patient: 45-69 minutes Time was spent: preparing to see the patient(eg.review tests), obtaining and/or reviewing separately otained hiistory, ordering medications,tests, procedures, referring, communicating with other health child care leader, indepentently interpreting results, counseling the patient and care coordination
--- NOTE | 2024-09-06 13:49 | NUR.NOTE ---
assessment by Nazia SOSA reviewed and this Rn is in agreement. Patient Axox3-4 throughout shift, c/o BLE pain but gabapentin increased to 600mg TID and pt reported much more relief prior to d/c to [facility] and rehab. PEG tube site cleaned today and nystatin applied to redness, all meds given via peg, pt tolerated clear liquids orally which is baseline, sats stable on 4L venti mask, moist lung sounds but no productive cough this shift, ambulated to chair with 1 mod assist. Dressed and prepped for rehab, all belongings packed up and sent with pt and SO Kiara pt using own O2 tank for transport. Patient had PIVs removed, reports he is comfortable at time of discharge. Nursing Note:
== END 2024-09-06 13:14 | disposition skilled nursing facility (03) | DRG 82 ==
LOC: ER 21:42 → ICU 22:50 → MS 09-02 17:11
PROVIDERS: Hospitalist; Admitting Provider Family Medicine; Emergency Provider Emergency Medicine; PCP Physician Assistant Medical; Responsible Provider Family Medicine; Visit Provider Family Medicine
DX: S06.5XAA Traumatic subdural hemorrhage with loss of consciousness status unknown, initial encounter (principal); J96.21 Acute and chronic respiratory failure with hypoxia; E87.0 Hyperosmolality and hypernatremia; T17.890A Other foreign object in other parts of respiratory tract causing asphyxiation, initial encounter; Z79.899 Other long term (current) drug therapy; M79.605 Pain in left leg; W19.XXXA Unspecified fall, initial encounter; R53.1 Weakness; Z63.6 Dependent relative needing care at home; I77.1 Stricture of artery; I25.10 Atherosclerotic heart disease of native coronary artery without angina pectoris; Z93.1 Gastrostomy status; I51.3 Intracardiac thrombosis, not elsewhere classified; I10 Essential (primary) hypertension; Z85.21 Personal history of malignant neoplasm of larynx; Z90.02 Acquired absence of larynx; Z99.81 Dependence on supplemental oxygen; J44.9 Chronic obstructive pulmonary disease, unspecified; E03.9 Hypothyroidism, unspecified; I25.2 Old myocardial infarction; E78.5 Hyperlipidemia, unspecified; Z93.0 Tracheostomy status; Z86.711 Personal history of pulmonary embolism; H90.3 Sensorineural hearing loss, bilateral; G62.9 Polyneuropathy, unspecified; F41.9 Anxiety disorder, unspecified; F32.A Depression, unspecified
CPT/HCPCS: 00123; 12002; 36415; 73521; 74177; 80048; 80053; 82550; 82805; 87641; 93005; 96361; 96374; 97110; 97162; 97530; 99291; 70450; 71045; 71260; 72125; 73630; 83605; 85025; 85379; 85610; 85730; 93010; 93970; 94640; 94760; 99223; 99232; 99239; J0131; J2004; J2270; J3490; J7608; J7613; J7620

== ENCOUNTER 2024-09-10 12:06 | Outpatient (REF) | payer MEDICARE, MEDICAID, SELFPAY ==
[2024-09-10 12:38] LABS: ALT 33 U/L (16-63); AST 34 U/L (15-37); Albumin 2.4 g/dL (3.4-5.0); Alkaline Phosphatase 212 U/L (46-116); Anion Gap 6.3 mmol/L (3-11); BUN 35 mg/dL (7-18); Bilirubin, Total 0.3 mg/dL (0.2-1.0); CO2 32.7 mmol/L (21.0-32.0); CREATININE 0.9 mg/dL (0.70-1.30); Calcium 8.4 mg/dL (8.5-10.1); Chloride 104 mmol/L (98-107); Estimated GFR 87.42 (mL/min/1.73m2); Glucose 135 mg/dL (74-106); Potassium 3.7 mmol/L (3.5-5.1); Sodium 143 mmol/L (136-145); Total Protein 6.4 g/dL (6.4-8.2)
== END 2024-09-10 12:07 | disposition home or self-care (01) ==
LOC: LBN 12:06
PROVIDERS: PCP Physician Assistant Medical; Visit Provider Family Medicine Geriatric Medicine
DX: G25.81 Restless legs syndrome (principal)
CPT/HCPCS: 80053

== ENCOUNTER 2024-09-12 16:50 | Inpatient (IN) | payer MEDICARE, MEDICAID, SELFPAY ==
[2024-09-12] VITALS (31 sets, daily range): BP systolic 78–184; BP diastolic 34–144; PULSE 60–78; RESP 5–22; TEMP 37.2–38.5; O2SAT 75–98
--- NOTE | 2024-09-12 17:00 | DI.RAD_ITS ---
Exam(s) XR CHEST 2V PA LATERAL EXAM: XR CHEST 2V PA LATERAL CLINICAL HISTORY: shortness of breath, fever. TECHNIQUE: 2D digital imaging was performed. COMPARISON: CT CT CHEST/ABD/PEL W from 08/31/2024 CR XR CHEST 1V IN DI DEPT from 08/31/2024 FINDINGS: 2 views: Heart size remains upper normal. The mediastinum is unchanged.. Again noted is a long aortic stent graph extending from the mid descending thoracic aorta down into t he abdominal aorta. In addition to chronic increased markings in lung lujan there are now infiltrates in both lower lobe s which were not evident on 08/31/2024. Also small bilateral pleural effusions. IMPRESSION: New infiltrates in both lower lobes and new bilateral pleural effusions.These lung base findings were not evident on chest x-ray of 08/31/2024 Aortic stent graft again noted extending from the mid thoracic aorta down into the abdominal aorta. DATA REPOSITORY: RADIATION DOSE DELIVERED:
--- NOTE | 2024-09-12 17:00 | RT.EKG_ITS ---
APPROVED REPORT Exam: Resting ECG Reason for Exam: dyspnea Patient Location: E HR:70 bpm ECG Measurements Heart Rate 70 AXIS DC 192 P 24 QRSd 152 QRS 43 QT 420 T -21 QTc 454 Conclusion Sinus rhythm...normal P axis, V-rate 60- 99 Right bundle branch block...QRSd>120, terminal axis(90,270)
--- NOTE | 2024-09-12 17:10 | W.ED.GENAD ---
Discharge Plan Disposition Patient Disposition: Admit to [facility] Condition: Stable Discharge Details Clinical Impression: HCAP (healthcare-associated pneumonia) Primary Care Provider: Nazia Chan ED Provider: Kalyan Barreto [place] Meds and New Rx's Prescriptions: No Action acetaminophen [Tylenol Extra Strength] 500 mg tablet 1,000 mg PO BID PRN tamsulosin [Flomax] 0.4 mg capsule 0.4 mg PO DAILY Qty: 90 3RF finasteride 5 mg tablet 5 mg PO DAILY Qty: 90 3RF omeprazole 20 mg capsule,delayed release(DR/EC) 20 mg feeding tube BID Qty: 90 4RF acetylcysteine 100 mg/mL (10 %) solution 4 ml inhalation BID metoprolol succinate 25 mg tablet extended release 24 hr 25 mg PO DAILY rosuvastatin 40 mg tablet 40 mg feeding tube HS Qty: 90 4RF polyethylene glycol 3350 [Miralax] 17 gram/dose powder 17 g PO DAILY PRN (Reason: constipation) Rx Instructions: 06/19/22 instructed by PCP to take 1/2 cap daily, may reduce to half cap three times per week if daily is too much nystatin 100,000 unit/gram powder 1 applic topical BID Qty: 60 12RF sulfamethoxazole-trimethoprim 200-40 mg/5 mL suspension 5 ml PO BID 28 Days Qty: 280 6RF acetylcysteine 600 mg capsule See Rx Instructions .ROUTE .COMPLEX Qty: 60 12RF Dose Instruction: TAKE ONE CAPSULE BY MOUTH TWICE A DAY Rx Instructions: TAKE ONE CAPSULE BY MOUTH TWICE A DAY melatonin 3 MG tablet 3 mg PO HS levetiracetam 500 mg tablet 500 mg PO BID Patient Comments: TAKE ONE TABLET BY MOUTH TWICE A DAY ipratropium-albuterol 0.5 mg-3 mg(2.5 mg base)/3 mL solution for nebulization 3 ml IN BID Rx Instructions: increased dose/use treatment 4 times/day as needed NOT SENT levothyroxine 88 mcg tablet 88 mcg PO DAILY Patient Comments: TAKE ONE TABLET BY MOUTH EVERY DAY sertraline 100 mg tablet 100 mg PO DAILY Patient Comments: TAKE ONE TABLET BY MOUTH EVERY DAY ropinirole 1 mg tablet 0.5 mg PO BID Qty: 0 0RF ferrous sulfate [Feosol] 325 mg (65 mg iron) tablet 325 mg PO DAILY Align Jr 10.5 mg (10 million cell) tablet,chewable 10.5 mg PO DAILY aspirin [Children's Aspirin] 81 mg Tablet,Chewable 81 mg CH DAILY Qty: 30 0RF sodium chloride 0.9 % Solution For Nebulization 3 ml UPD BID Qty: 0 0RF gabapentin 300 mg capsule 600 mg PO TID Qty: 360 3RF HPI General Mode of arrival: EMS. Date/Time Provider Initiated Documentation: 09/12/24 16:50. Limitations to Documentation: no limitations. Information obtained by: patient. History of Present Illness 79 year old M presents to the emergency department with the chief complaint of dyspnea, fever, described as moderate, Patient started experiencing this day(s) (2) and it has been constant. No relieving factors improve symptom(s), No exacerbating factors reported . Patient notes no other symptoms.; denies chest pain and nausea/vomiting. Patient did receive the following treatments prior to arrival, none Related Data Home Medications ?Medication ?Instructions ?Recorded ?Confirmed omeprazole 20 mg capsule,delayed 20 mg feeding tube BID #90 caps 10/05/19 09/12/24 release melatonin 3 mg tablet 3 mg PO HS 10/29/19 09/12/24 rosuvastatin 40 mg tablet 40 mg feeding tube HS #90 tabs 12/14/19 09/12/24 acetylcysteine 100 mg/mL (10 %) 4 ml inhalation BID 07/05/20 09/12/24 solution acetaminophen 500 mg tablet 1,000 mg PO BID PRN 03/05/22 09/12/24 (Tylenol Extra Strength) polyethylene glycol 3350 17 17 g PO DAILY PRN constipation 06/19/22 09/12/24 gram/dose oral powder (Miralax) nystatin 100,000 unit/gram topical 1 applic topical BID #60 grams 02/19/23 09/12/24 powder metoprolol succinate 25 mg 25 mg PO DAILY 09/02/23 09/12/24 tablet,extended release 24 hr levetiracetam 500 mg tablet 500 mg PO BID 02/17/24 09/12/24 finasteride 5 mg tablet 5 mg PO DAILY #90 tabs 03/02/24 09/12/24 tamsulosin 0.4 mg capsule (Flomax) 0.4 mg PO DAILY #90 caps 03/02/24 09/12/24 Bifidobacterium infantis 10.5 mg 10.5 mg PO DAILY 03/13/24 09/12/24 (10 million cell) chewable tablet (Align Jr) ferrous sulfate 325 mg (65 mg 325 mg PO DAILY 03/13/24 09/12/24 iron) tablet (Feosol) sulfamethoxazole 200 5 ml PO BID 28 days #280 mL 03/29/24 09/12/24 mg-trimethoprim 40 mg/5 mL oral suspension ipratropium 0.5 mg-albuterol 3 mg 3 ml IN BID shortness of breath or 08/03/24 09/12/24 (2.5 mg base)/3 mL nebulization wheezing soln acetylcysteine 600 mg capsule See Rx Instructions .Route 08/08/24 09/12/24 .COMPLEX #60 caps levothyroxine 88 mcg tablet 88 mcg PO DAILY 08/16/24 09/12/24 sertraline 100 mg tablet 100 mg PO DAILY 08/16/24 09/12/24 ropinirole 1 mg tablet 0.5 mg (1/2 x 1 mg) PO BID #0 tabs 08/17/24 09/12/24 aspirin 81 mg chewable tablet 81 mg CH DAILY #30 tabs 08/30/24 09/12/24 (Children's Aspirin) gabapentin 300 mg capsule 600 mg (2 x 300 mg) PO TID #360 09/06/24 09/12/24 caps sodium chloride 0.9 % for 3 ml UPD BID #0 mL 09/06/24 09/12/24 nebulization Previous Rx's ?Medication ?Instructions ?Recorded omeprazole 20 mg capsule,delayed 20 mg feeding tube BID #90 caps 10/05/19 release rosuvastatin 40 mg tablet 40 mg feeding tube HS #90 tabs 12/14/19 nystatin 100,000 unit/gram topical 1 applic topical BID #60 grams 02/19/23 powder finasteride 5 mg tablet 5 mg PO DAILY #90 tabs 03/02/24 tamsulosin 0.4 mg capsule (Flomax) 0.4 mg PO DAILY #90 caps 03/02/24 sulfamethoxazole 200 5 ml PO BID 28 days #280 mL 03/29/24 mg-trimethoprim 40 mg/5 mL oral suspension acetylcysteine 600 mg capsule See Rx Instructions .Route 08/08/24 .COMPLEX #60 caps ropinirole 1 mg tablet 0.5 mg (1/2 x 1 mg) PO BID #0 tabs 08/17/24 aspirin 81 mg chewable tablet 81 mg CH DAILY #30 tabs 08/30/24 (Children's Aspirin) gabapentin 300 mg capsule 600 mg (2 x 300 mg) PO TID #360 09/06/24 caps sodium chloride 0.9 % for 3 ml UPD BID #0 mL 09/06/24 nebulization Allergies Allergy/AdvReac Type Severity Reaction Status Date / Time pollen extracts Allergy Mild Wheezing Verified 09/12/24 18:00 Tetracyclines Allergy Unknown SKIN RASH Verified 09/12/24 18:00 General Stated Complaint: RespSymp CHER: 2 Review of Systems All systems reviewed & are unremarkable except as noted in HPI and below Constitutional Constitutional: Reports chills, Reports fever(s) and Denies weakness ENT Ears, Nose, Mouth, and Throat: Denies change in voice Cardiovascular Cardiovascular: Denies chest pain and Reports dyspnea Respiratory Respiratory: Reports cough and Reports dyspnea Gastrointestinal Gastrointestinal: Denies abdominal pain, Denies nausea and Denies vomiting Neurologic Neurologic: Denies weakness Psychiatric Psychiatric: Denies depression Exam Const General: no acute distress Orientation: alert HENMT Head: normal to inspection Ears: external ears normal General nose exam: external nose normal Mouth: moist mucous membranes Eyes General: appearance normal, both eyes and all related structures Neck Neck: normal visual inspection Cardio Jugular venous pressure: no JVD Rate: regular rate Skin General skin exam: no rashes or lesions noted Neuro General: patient alert and patient oriented x3 Extrem General: normal to inspection Psych Mental Status: mental status grossly normal Course Vital Signs Vital signs: Vital Signs Temperature 38.5 C H 09/12/24 16:53 Pulse 78 09/12/24 16:53 Respiratory Rate 22 09/12/24 16:53 Blood Pressure 184/144 H 09/12/24 16:53 Pulse Oximetry 75 L 09/12/24 16:53 Temperature 38.5 C H 09/12/24 16:53 Temperature Source Tympanic 09/12/24 16:53 Pulse 78 09/12/24 16:53 Respiratory Rate 22 09/12/24 16:53 Blood Pressure 184/144 H 09/12/24 16:53 Pulse Oximetry 75 L 09/12/24 16:53 Oxygen Delivery Method Trach Collar 09/12/24 16:53 Oxygen Flow Rate 6 09/12/24 16:53 Lab/Test Results Lab/Test Results: 09/12/24 17:08 Blood Blood Culture - Pending 09/12/24 17:08 Blood Blood Culture - Pending Medical Decision Making 79-year-old male with a history of laryngeal cancer status post laryngectomy, oxygen dependent on 6 L at home via trach mask for chronic respiratory failure, bilateral subdural hematomas, COPD, feeding tube, hypothyroidism, hypertension, recent admission for hypoxic respiratory failure and is residing at [facility] and rehab comes in with several days of worsening shortness of breath along with fevers and chills. He also notes productive cough. He denies any chest pain or vomiting. He has noted to be hypoxic on arrival in the low 80s despite being on 6 L there is trach mask. He has no JVD or leg swelling. Diminished lung sounds at the bases bilaterally. He apparently gets frequent mucous plugging will have RT evaluate. Will also check a CBC, CMP, procalcitonin and troponins and proBNP and obtain a chest x-ray. He is febrile so I suspect respiratory infection either pneumonia or COVID or flu. He does have some wheezing on exam, will trial a DuoNeb Patient with bilateral infiltrates and also fluid effusions. Given he was recently in the hospital I will cover with Vanco and Zosyn, will also give a dose of Lasix. Will discuss with hospitalist about admission Differential Diagnosis Differential Diagnosis: COVID, pneumonia Medical Records Medical records reviewed: Yes I reviewed the patient's medical records. Lab Data Lab results reviewed: Yes I reviewed the patient's lab results. ECG Data Attestation: I personally reviewed and interpreted this ECG (s) as follows: Prior ECG tracings: available for review Interpretation: sinus rate of 70 pr 192 no stemi Quality:SDOH Health Related Social Needs: No Data to Display [facility] All Active Problems (Updated 09/12/24 @ 18:30 by Kalyan Barreto MD) HCAP (healthcare-associated pneumonia) (Acute) Laceration of scalp (Acute) Subdural hematoma, post-traumatic (Acute) Right subclavian artery occlusion (Acute) Leg pain (Acute) Tracheostomy in place (Acute) Occlusion of celiac artery (Acute) Urinary tract infection (Acute) Foreign body sensation, throat (Acute) Right clavicle fracture (Acute 08/30/23) Syncope (Chronic) Ground glass opacity present on imaging of lung (Acute) Subdural hematoma (Acute) Pulmonary edema (Acute) Fracture of thumb, left, closed (Acute) Acute non-ST elevation myocardial infarction (NSTEMI) (Acute) Arm pain (Acute) Hemoptysis (Acute) Nausea & vomiting (Acute) Regurgitation of food (Acute) Pulmonary embolism (Chronic) Uses feeding tube (Acute) Gross hematuria (Acute) Ambulatory dysfunction (Acute) Leukocytosis (leucocytosis) (Acute) UTI (urinary tract infection) (Acute) Multiple subsegmental pulmonary emboli without acute cor pulmonale (Acute) C1 cervical fracture (Acute) Gastrostomy tube dysfunction (Acute) Encounter for hospice care discussion (Acute) Unintentional weight loss of 10% body weight within 6 months (Acute) Dysuria (Acute) Malfunctioning jejunostomy tube (Acute) Need for follow-up by social work administrator (Acute) Dysphagia (Acute) Impaired instrumental activities of daily living (Acute) Plantar fascial fibromatosis (Acute) Feeding tube dysfunction (Acute) Sensorineural hearing loss (SNHL) of both ears (Acute) Otalgia of right ear (Acute) Neck pain on right side (Acute) Neck pain on right side (Acute) Full code status (Acute) Need for home health care (Acute) MRSA pneumonia (Acute) pt likely colonized Occlusion of right vertebral artery (Acute) Hypoxemia (Acute) Complication of feeding tube (Acute) Peripheral neuropathy (Acute 02/21/15) PAOD (peripheral arterial occlusive disease) (Acute) Laryngeal cancer (Acute) COPD (chronic obstructive pulmonary disease) (Chronic) 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 Routine change every 4 months. 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 Hypertension Tobacco use COPD (chronic obstructive pulmonary disease) Post herpetic neuralgia Hypothyroidism Hyperlipemia Depression Anxiety Conjunctivitis, chronic Surgical History S/P AAA (abdominal aortic aneurysm) repair Status post laryngectomy History of esophagogastroduodenoscopy (EGD) (~08/10/19) Daron Casper APRN @ [facility] [place]: hiatal hernia, GERD, Reyes's esophagitis, neuromuscular dysfunction History of laryngectomy Status post cardiac catheterization Status post cataract extraction and insertion of intraocular lens of right eye (07/12/18) History of tarsorrhaphy Status post cataract extraction and insertion of intraocular lens of left eye (04/30/12) 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) Sin-mullins button placed by Dr Elia Mcdonald, [facility] PROCEDURES RT/LEFT HEART CARD CATH COMPLETE LARYNGECTOMY Esophagoplasty EGD - MAC (07/06/17) Colonoscopy - MAC (12/22/16) History of radical laryngectomy Family History Nephew Throat cancer Maternal Cousin Cancer Social History (Updated 08/31/24 @ 23:12 by Dwayne Lozada) Smoking/Tobacco Use Status: Former Tobacco Use Quit Date: 04/23/13 Tobacco: How many years used: 20 Smoking risk assessment performed?: Yes Alcohol Intake: never Drug use: Never Substance use type: does not use Housing: house Current gender identity: male Do you feel safe at home: Yes Do you feel safe in your relationship?: Yes Additional Social history: Lives with partner/caregiver Kiara caraballo in [place]
[2024-09-12] MEDS: Albuterol/Ipratropium 3 ML UPD VIAL UPD ×2 (17:23→22:53)
[2024-09-12] MEDS: ACETAMINOPHEN 500 MG/50 ML BAG 200 MG IVPB (17:30)
[2024-09-12] MEDS: MORPHine 4 MG/ML SYR 2 MG IVP (17:30)
[2024-09-12 17:40] LABS: Abs Immature Grans 0.05 10^3/uL (0.0-0.06); Absolute Eosinophil Count 0.37 10^3/uL (0.0-0.7); Absolute Lymphocyte Count 0.82 10^3/uL (1.2-3.4); Absolute Monocyte Count 0.92 10^3/uL (0.1-0.8); Basophils % 0.9 %; Eosinophils % 3.4 %; HCT 39.4 % (40.0-50.0); HGB 12.1 g/dL (13.5-17.5); Immature Grans % 0.5 %; Lymphocytes % 7.6 %; MCH 32.7 pg (27.0-33.0); MCHC 30.7 % (32.0-36.0); MCV 107 fL (80-95); MPV 10.1 fL (8.0-11.0); Monocytes % 8.5 %; Neutrophils % 79.1 %; Platelet Count 345 10^3/uL (130-400); RDW-SD 51.1 fL; WBC 10.85 10^3/uL (4.4-10.8)
[2024-09-12 18:05] LABS: Absolute Neutrophil Count 8.58 10^3/uL (1.2-6.7)
[2024-09-12 18:06] LABS: Diff Comment RBC Morph Reviewed; Macrocytosis 2+
[2024-09-12 18:07] LABS: INR 1.1 (0.9-1.1); PTT Activated 27.6 sec (20.6-30.2); Prothrombin Time 10.7 sec (9.1-11.1)
--- NOTE | 2024-09-12 18:13 | RESPIRATORY ---
Spoke with nursing staff at [facility] across the street, where Pineda has been living recently. The staff over there confirmed that he is getting humidification with his O2 through his [facility].
[2024-09-12 18:15] LABS: Procalcitonin 0.16 ng/mL
[2024-09-12 18:25] LABS: ALT 49 U/L (16-63); AST 53 U/L (15-37); Albumin 2.6 g/dL (3.4-5.0); Alkaline Phosphatase 215 U/L (46-116); Anion Gap 5.4 mmol/L (3-11); BUN 31 mg/dL (7-18); Bilirubin, Total 0.3 mg/dL (0.2-1.0); CO2 37.6 mmol/L (21.0-32.0); CREATININE 0.8 mg/dL (0.70-1.30); Calcium 9.3 mg/dL (8.5-10.1); Chloride 103 mmol/L (98-107); Estimated GFR 90.58 (mL/min/1.73m2); Glucose 88 mg/dL (74-106); Magnesium 2.4 mg/dL; NT-proBNP 2668 pg/mL (<300); Potassium 4.4 mmol/L (3.5-5.1); Sodium 146 mmol/L (136-145); TSH (W/Ref FT4) 16.34 uIU/mL (0.36-3.74); Total Protein 7.5 g/dL (6.4-8.2); Troponin I 37 ng/L (<or=76)
[2024-09-12 18:43] LABS: FREE T4 0.86 ng/dL (0.76-1.46)
--- NOTE | 2024-09-12 19:03 | W.PM.HP.N ---
Date of service: 09/12/24 Time of Service: 19:40 Assessment and Plan Assessment and plan (1) Acute hypoxic respiratory failure: Status: Acute Assessment and plan: This is a 79-year-old gentleman with recurrent respiratory infections. Now he has significant bilateral lower lobe infiltrates with associated effusions. He was given Lasix with this without be continued. Blood pressure being soft at this time. He does have a mild elevation in his WBC and increase in his sodium indicating some dehydration but is biting his normal and he has no tachycardia or tachypnea. He did have a low-grade fever 38.5 degrees.. He will be observed closely for sepsis and septic shock with patient have a poor prognosis. Hold on aggressive IV fluid resuscitation because of pleural effusions. He also does not quite meet sepsis criteria at this time. He is a DNR. He should consider DNI status. (2) HCAP (healthcare-associated pneumonia): Status: Acute Assessment and plan: IV cefepime and vancomycin. Blood cultures were performed and adjust antibiotic therapy to oral therapy once patient stabilizes. (3) COPD (chronic obstructive pulmonary disease): Status: Chronic Assessment and plan: Nebulizer treatments as needed. (4) Laryngeal cancer: Status: Chronic Assessment and plan: Symptomatic care. Patient is on PEG tube feeding. (5) CAD (coronary artery disease): Assessment and plan: Observe for deterioration. Continue outpatient medical therapy. (6) Hypothyroidism: Assessment and plan: TSH is mildly elevated with normal free T4. Continue outpatient supplement. May be some problems absorption. (7) Hyperlipidemia: Assessment and plan: Continue outpatient statin dose. (8) Restless leg syndrome: Assessment and plan: Continue outpatient medical therapy. (9) BPH w urinary obs/LUTS: Assessment and plan: Patient does not require catheterization at this time. Observe for complications. (10) GERD (gastroesophageal reflux disease): Status: Chronic Assessment and plan: Continue outpatient PPI. (11) Iron deficiency anemia: Status: Chronic Assessment and plan: Continue iron supplementation. (12) Depressive disorder: Assessment and plan: Continue antidepressant. (13) Subdural hematoma, post-traumatic: Status: Resolved Assessment and plan: Patient is on Keppra which will be continued with some spells that may have been seizure-like mention but no overt history of seizure disorder status post trauma. History of Present Illness History of Present Illness Chief Complaint: Shortness of breath with fever and increased oxygen needs at long-term. Narrative: This is a 79-year-old male patient who resides at the local long-term status post positioning for recurrent infection. He presents with increased shortness of breath, fever and increased need for oxygen supplementation at the long-term and was sent to the ED for evaluation. He was found to have bilateral pneumonia which is new with bilateral pleural effusions. He is at end-stage disease process with laryngeal cancer, not eating well with cachexia and having chronic anemia with chronic medical problems requiring frequent hospitalizations recently. He was last in the hospital August 31, 2024 with similar presentation. Chest x-ray does show new infiltrates compared to the last hospitalization. He also has CAD and this is not exacerbated with his presentation. Patient has no other acute complaints though he is severely debilitated with his multiple diseases and was [employer] at 1 point during his last hospital stay. He will be hospitalized for aggressive treatment of hospital-acquired pneumonia. He did receive 1 dose of Lasix but had a fall on his systolic blood pressure and received. 50 cc of normal saline bolus with recovery of blood pressure. Further diuresis for his pleural effusion were not restarted at this time though he does have an elevated BNP. He is a DNR at this time. [facility] All Active Problems (Updated 09/12/24 @ 20:12 by Jhonny Grant) Iron deficiency anemia (Chronic) GERD (gastroesophageal reflux disease) (Chronic) Acute hypoxic respiratory failure (Acute) HCAP (healthcare-associated pneumonia) (Acute) Laceration of scalp (Acute) Right subclavian artery occlusion (Acute) Leg pain (Acute) Tracheostomy in place (Acute) Occlusion of celiac artery (Acute) Urinary tract infection (Acute) Foreign body sensation, throat (Acute) Right clavicle fracture (Acute 08/30/23) Syncope (Chronic) Ground glass opacity present on imaging of lung (Acute) Subdural hematoma (Acute) Pulmonary edema (Acute) Fracture of thumb, left, closed (Acute) Acute non-ST elevation myocardial infarction (NSTEMI) (Acute) Arm pain (Acute) Hemoptysis (Acute) Nausea & vomiting (Acute) Regurgitation of food (Acute) Pulmonary embolism (Chronic) Uses feeding tube (Acute) Gross hematuria (Acute) Ambulatory dysfunction (Acute) Leukocytosis (leucocytosis) (Acute) UTI (urinary tract infection) (Acute) Multiple subsegmental pulmonary emboli without acute cor pulmonale (Acute) C1 cervical fracture (Acute) Gastrostomy tube dysfunction (Acute) Encounter for hospice care discussion (Acute) Unintentional weight loss of 10% body weight within 6 months (Acute) Dysuria (Acute) Malfunctioning jejunostomy tube (Acute) Need for follow-up by sr. social media & mobile manager (Acute) Dysphagia (Acute) Impaired instrumental activities of daily living (Acute) Plantar fascial fibromatosis (Acute) Feeding tube dysfunction (Acute) Sensorineural hearing loss (SNHL) of both ears (Acute) Otalgia of right ear (Acute) Neck pain on right side (Acute) Neck pain on right side (Acute) Full code status (Acute) Need for home health care (Acute) MRSA pneumonia (Acute) pt likely colonized Occlusion of right vertebral artery (Acute) Hypoxemia (Acute) Complication of feeding tube (Acute) Peripheral neuropathy (Acute 02/21/15) PAOD (peripheral arterial occlusive disease) (Acute) Laryngeal cancer (Chronic) COPD (chronic obstructive pulmonary disease) (Chronic) 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 (Acute) Compression fracture of thoracolumbar vertebra (Acute) Dependence on supplemental oxygen (Chronic) Medical History On deep vein thrombosis (DVT) prophylaxis Recurrent syncope Laceration of occipital region of scalp Fall Orthostatic hypotension Palliative care patient Caregiver stress Advance care planning Weakness G tube feedings 20F 3.0cm 11/30/22. Routine change every 4 months. History of laryngeal cancer Chronic respiratory failure with hypoxia Pneumonia Shortness of breath Complication of feeding tube Hematoma following procedure Blockage of feeding tube Dyspnea on exertion Neurotrophic cornea of left eye Left corneal scar with opacity Cortical cataract of right eye Nuclear sclerotic cataract of right eye Posterior subcapsular age-related cataract, right eye Feeding tube dysfunction CAD (coronary artery disease) Sessile colonic polyp 12/22/16-SESSILE SERRATED ADENOMA Restless leg syndrome (02/21/15) Pulmonary nodule, right (05/30/15) on chest CT -2015: stable Primary malignant neoplasm of oropharynx ; yearly fup in Feb (last ) [facility] SX: 2007 ROR: 2000 + 2007 Impingement syndrome, shoulder, left (10/10/16) -2017: PT sugmarisela. 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 Hypertension Tobacco use COPD (chronic obstructive pulmonary disease) Post herpetic neuralgia Hypothyroidism Hyperlipemia Depression Anxiety Conjunctivitis, chronic Surgical History S/P AAA (abdominal aortic aneurysm) repair Status post laryngectomy History of esophagogastroduodenoscopy (EGD) (~08/10/19) Daron Casper APRN @ [facility]: hiatal hernia, GERD, Reyes's esophagitis, neuromuscular dysfunction History of laryngectomy Status post cardiac catheterization Status post cataract extraction and insertion of intraocular lens of right eye (07/12/18) History of tarsorrhaphy Status post cataract extraction and insertion of intraocular lens of left eye (04/30/12) 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) Sin-mullins button placed by Dr Elia Mcdonald, [facility] PROCEDURES RT/LEFT HEART CARD CATH COMPLETE LARYNGECTOMY Esophagoplasty EGD - MAC (07/06/17) Colonoscopy - MAC (12/22/16) History of radical laryngectomy Family History Nephew Throat cancer Maternal Cousin Cancer Social History Smoking/Tobacco Use Status: Former Tobacco Use Quit Date: 04/23/13 Tobacco: How many years used: 20 Smoking risk assessment performed?: Yes Alcohol Intake: never Drug use: Never Substance use type: does not use Housing: long-term Current gender identity: male Do you feel safe at home: Yes Do you feel safe in your relationship?: Yes Additional Social history: Lives with partner/caregiver Kiara caraballo in [facility] Allergies and Home Medications Allergies Allergy/AdvReac Type Severity Reaction Status Date / Time pollen extracts Allergy Mild Wheezing Verified 09/12/24 18:00 Tetracyclines Allergy Unknown SKIN RASH Verified 09/12/24 18:00 Home Medications ?Medication ?Instructions ?Recorded ?Confirmed ?Type omeprazole 20 mg capsule,delayed 20 mg feeding tube BID #90 caps 10/05/19 09/12/24 Rx release melatonin 3 mg tablet 3 mg PO HS 10/29/19 09/12/24 History rosuvastatin 40 mg tablet 40 mg feeding tube HS #90 tabs 12/14/19 09/12/24 Rx acetylcysteine 100 mg/mL (10 %) 4 ml inhalation BID 07/05/20 09/12/24 History solution acetaminophen 500 mg tablet 1,000 mg PO BID PRN 03/05/22 09/12/24 History (Tylenol Extra Strength) polyethylene glycol 3350 17 17 g PO DAILY PRN constipation 06/19/22 09/12/24 History gram/dose oral powder (Miralax) nystatin 100,000 unit/gram topical 1 applic topical BID #60 grams 02/19/23 09/12/24 Rx powder metoprolol succinate 25 mg 25 mg PO DAILY 09/02/23 09/12/24 History tablet,extended release 24 hr levetiracetam 500 mg tablet 500 mg PO BID 02/17/24 09/12/24 History finasteride 5 mg tablet 5 mg PO DAILY #90 tabs 03/02/24 09/12/24 Rx tamsulosin 0.4 mg capsule (Flomax) 0.4 mg PO DAILY #90 caps 03/02/24 09/12/24 Rx Bifidobacterium infantis 10.5 mg 10.5 mg PO DAILY 03/13/24 09/12/24 History (10 million cell) chewable tablet (Align Jr) ferrous sulfate 325 mg (65 mg 325 mg PO DAILY 03/13/24 09/12/24 History iron) tablet (Feosol) sulfamethoxazole 200 5 ml PO BID 28 days #280 mL 03/29/24 09/12/24 Rx mg-trimethoprim 40 mg/5 mL oral suspension ipratropium 0.5 mg-albuterol 3 mg 3 ml IN BID shortness of breath or 08/03/24 09/12/24 History (2.5 mg base)/3 mL nebulization wheezing soln acetylcysteine 600 mg capsule See Rx Instructions .Route 08/08/24 09/12/24 Rx .COMPLEX #60 caps levothyroxine 88 mcg tablet 88 mcg PO DAILY 08/16/24 09/12/24 History sertraline 100 mg tablet 100 mg PO DAILY 08/16/24 09/12/24 History ropinirole 1 mg tablet 0.5 mg (1/2 x 1 mg) PO BID #0 tabs 08/17/24 09/12/24 Rx aspirin 81 mg chewable tablet 81 mg CH DAILY #30 tabs 08/30/24 09/12/24 Rx (Children's Aspirin) gabapentin 300 mg capsule 600 mg (2 x 300 mg) PO TID #360 09/06/24 09/12/24 Rx caps sodium chloride 0.9 % for 3 ml UPD BID #0 mL 09/06/24 09/12/24 Rx nebulization Exam Narrative Exam Narrative: General: Patient is cachectic, not able to speak but writes to communicate and uses a voice box which is unsuccessful. He is in no acute distress. He appears less dyspneic than his presenting presentation complaint. He is alert and oriented at least to person place. HEENT: Normocephalic, eyes with pupils equal and react to light symmetrically, extraocular movement intact and sclera anicteric. Course and facial features. Oropharynx dry with poor dentition. Neck: Supple without JVD. Tracheostomy over the front of the back with is dressed with dry 4 x 4 gauze. Back: Kyphotic without CVA tenderness. Lungs: Decreased aeration both bases with occasional coarse crackle with no focalizing rales or rhonchi. No expiratory wheeze. Bronchovesicular diffusely. Heart: Distant heart sounds with regular rate and rhythm, no appreciable murmur or gallop. Abdomen: Scaphoid contour, soft and nontender to palpation with no palpable hepatosplenomegaly. Gastrostomy PEG tube is in place. Bowel sounds positive all quadrants. Genitalia/rectal exam deferred. Extremities: Without clubbing, cyanosis or pitting edema. Muscle wasting diffusely. Fair cap refill. Skin: Darkly tanned, otherwise normal color, warm and dry. Rough texture. Neuro: Cranial nerve II to XII grossly intact, no focal motor deficits. No tremor. Psych: Flattened affect and depressed mood. Patient essentially nonverbal. No abnormal thought processes manifested. Remote and recent memory not easily testable. Results Imaging Imaging Studies: Date of Exam: 09/12/24 EXAM: XR CHEST 2V PA LATERAL CLINICAL HISTORY: shortness of breath, fever. TECHNIQUE: 2D digital imaging was performed. COMPARISON: CT CT CHEST/ABD/PEL W from 08/31/2024 CR XR CHEST 1V IN DI DEPT from 08/31/2024 FINDINGS: 2 views: Heart size remains upper normal. The mediastinum is unchanged.. Again noted is a long aortic stent graph extending from the mid descending thoracic aorta down into the abdominal aorta. In addition to chronic increased markings in lung lujan there are now infiltrates in both lower lobes which were not evident on 08/31/2024. Also small bilateral pleural effusions. IMPRESSION: New infiltrates in both lower lobes and new bilateral pleural effusions.These lung base findings were not evident on chest x-ray of 08/31/2024 Aortic stent graft again noted extending from the mid thoracic aorta down into the abdominal aorta. Labs 09/12/24 17:31 09/12/24 17:31 Labs: Laboratory Results - last 24 hr 09/12/24 17:31 WBC 10.85 H RBC 3.70 L Hgb 12.1 L Hct 39.4 L MCV 107 H MCH 32.7 MCHC 30.7 L RDW 13.0 Plt Count 345 MPV 10.1 Immature Gran % 0.5 Neutrophils % 79.1 Lymphocytes % 7.6 Monocytes % 8.5 Eosinophils % 3.4 Basophils % 0.9 Nucleated RBC % 0.0 Absolute Neutrophils 8.58 H Absolute Lymphocytes 0.82 L Absolute Monocytes 0.92 H Absolute Eosinophils 0.37 Absolute Basophils 0.10 RBC Morphology See Below Macrocytosis 2+ PT 10.7 INR 1.1 APTT 27.6 Sodium 146 H Potassium 4.4 Chloride 103 Carbon Dioxide 37.6 H Anion Gap 5.4 BUN 31 H Creatinine 0.8 Est GFR (CKD-EPI 2020) 90.58 Glucose 88 Calcium 9.3 Magnesium 2.4 Total Bilirubin 0.3 AST 53 H ALT 49 Alkaline Phosphatase 215 H Troponin I 37 NT-Pro-B Natriuret Pep 2668 H Total Protein 7.5 Albumin 2.6 L Procalcitonin 0.16 TSH 16.34 H Free T4 0.86 Last Vital Signs Temp 38.5 C H 09/12/24 16:53 Pulse 72 09/12/24 17:23 Resp 18 09/12/24 17:23 BP 184/144 H 09/12/24 16:53 Pulse Ox 91 L 09/12/24 18:33 Time Spent Time spent with Patient: >75 minutes Time was spent: preparing to see the patient(eg.review tests), obtaining and/or reviewing separately otained hiistory, ordering medications,tests, procedures, indepentently interpreting results and care coordination
[2024-09-12 19:20] LABS: Troponin I 37 ng/L (<or=76)
[2024-09-12] MEDS: PIPERACILLIN/TAZO 4.5 GM in Normal Saline 100 ML IVPB (19:27)
[2024-09-12] MEDS: Furosemide 20 MG/2 ML VIAL IVP (19:27)
[2024-09-12 20:02] LABS: COVID-19 PCR Negative (Negative); Influenza A PCR Negative (Negative); Influenza B PCR Negative (Negative); RSV PCR Negative (Negative)
[2024-09-12 20:04] LABS: Source Nasopharynx
[2024-09-12] MEDS: VANCOMYCIN 1,000 MG in Normal Saline 250 ML 166.6666 MG IVPB (20:29)
[2024-09-12 21:16] LABS: Troponin I 39 ng/L (<or=76)
--- NOTE | 2024-09-12 21:39 | W.PC.ACHO ---
Registration Status: Primary Language: Preferred Language: ED Information & Data Chief Complaint RespSymp 09/12/24 17:58 Chief Complaint RespSymp 09/12/24 17:13 Medical / Surgical History (Last Reviewed 09/12/24 @ 19:40 by Jhonny Grant) On deep vein thrombosis (DVT) prophylaxis Recurrent syncope Laceration of occipital region of scalp Fall Orthostatic hypotension Palliative care patient Caregiver stress Advance care planning Weakness G tube feedings History of laryngeal cancer Chronic respiratory failure with hypoxia Pneumonia Shortness of breath Complication of feeding tube Hematoma following procedure Blockage of feeding tube Dyspnea on exertion Neurotrophic cornea of left eye Left corneal scar with opacity Cortical cataract of right eye Nuclear sclerotic cataract of right eye Posterior subcapsular age-related cataract, right eye Feeding tube dysfunction CAD (coronary artery disease) Sessile colonic polyp Restless leg syndrome (02/21/15) Pulmonary nodule, right (05/30/15) Primary malignant neoplasm of oropharynx Impingement syndrome, shoulder, left (10/10/16) Hypothyroidism (11/18/12) Hyperlipidemia (11/18/12) History of tobacco use History of alcoholism Herpes zoster Depressive disorder (11/18/12) 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/17) Aphonia Anxiety 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) Hypertension Tobacco use COPD (chronic obstructive pulmonary disease) Post herpetic neuralgia Hypothyroidism Hyperlipemia Depression Anxiety Conjunctivitis, chronic (Last Reviewed 09/12/24 @ 19:40 by Jhonny Grant) S/P AAA (abdominal aortic aneurysm) repair Status post laryngectomy History of esophagogastroduodenoscopy (EGD) (~08/10/19) History of laryngectomy Status post cardiac catheterization Status post cataract extraction and insertion of intraocular lens of right eye (07/12/18) History of tarsorrhaphy Status post cataract extraction and insertion of intraocular lens of left eye (04/30/12) 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) PROCEDURES EGD - MAC (07/06/17) Colonoscopy - MAC (12/22/16) History of radical laryngectomy Most Recent Vital Signs Temperature 38.5 C H 09/12/24 16:53 Temperature Source Tympanic 09/12/24 16:53 Pulse 72 09/12/24 17:23 Respiratory Rate 18 09/12/24 17:23 Respiratory Effort Short of Breath 09/12/24 17:58 Blood Pressure 184/144 H 09/12/24 16:53 Pulse Oximetry 91 L 09/12/24 18:33 Oxygen Delivery Method OxyMask 09/12/24 18:33 Oxygen Flow Rate 6 09/12/24 18:33 Pain Level 10 09/12/24 17:30 Allergies pollen extracts Allergy (Mild, Verified 09/12/24 18:00) Wheezing Tetracyclines Allergy (Unknown, Verified 09/12/24 18:00) SKIN RASH Precautions Isolation Standard precaution 09/12/24 17:58 IV IV Catheter Type [Right Saline Lock Antecubital] IV Catheter Gauge [Right 18 Antecubital] Diagnostics 09/12/24 09/12/24 09/12/24 Range/Units 20:45 19:16 18:53 WBC (4.4-10.8) 10^3/uL RBC (4.36-5.78) 10^6/uL Hgb (13.5-17.5) g/dL Hct (40.0-50.0) % MCV (80-95) fL MCH (27.0-33.0) pg MCHC (32.0-36.0) % RDW (11.8-14.1) % Plt Count (130-400) 10^3/uL MPV (8.0-11.0) fL Immature Gran % % Neutrophils % % Lymphocytes % % Monocytes % % Eosinophils % % Basophils % % Nucleated RBC % (0.0-0.3) % Absolute Neutrophils (1.2-6.7) 10^3/uL Absolute Lymphocytes (1.2-3.4) 10^3/uL Absolute Monocytes (0.1-0.8) 10^3/uL Absolute Eosinophils (0.0-0.7) 10^3/uL Absolute Basophils (0.0-0.2) 10^3/uL RBC Morphology Macrocytosis PT (9.1-11.1) sec INR (0.9-1.1) APTT (20.6-30.2) sec Sodium (136-145) mmol/L Potassium (3.5-5.1) mmol/L Chloride (98-107) mmol/L Carbon Dioxide (21.0-32.0) mmol/L Anion Gap (3-11) mmol/L BUN (7-18) mg/dL Creatinine (0.70-1.30) mg/dL Est GFR (CKD-EPI 2020) (mL/min/1.73m2) Glucose (74-106) mg/dL Calcium (8.5-10.1) mg/dL Magnesium mg/dL Total Bilirubin (0.2-1.0) mg/dL AST (15-37) U/L ALT (16-63) U/L Alkaline Phosphatase (46-116) U/L Troponin I Pending 37 (<or=76) ng/L NT-Pro-B Natriuret Pep (<300) pg/mL Total Protein (6.4-8.2) g/dL Albumin (3.4-5.0) g/dL Procalcitonin ng/mL TSH (0.36-3.74) uIU/mL Free T4 (0.76-1.46) ng/dL COVID-19 Source Nasopharynx SARS-CoV-2 (PCR) Negative (Negative) Influenza Type A (PCR) Negative (Negative) Influenza Type B (PCR) Negative (Negative) RSV (PCR) Negative (Negative) 09/12/24 Range/Units 17:31 WBC 10.85 H (4.4-10.8) 10^3/uL RBC 3.70 L (4.36-5.78) 10^6/uL Hgb 12.1 L (13.5-17.5) g/dL Hct 39.4 L (40.0-50.0) % MCV 107 H (80-95) fL MCH 32.7 (27.0-33.0) pg MCHC 30.7 L (32.0-36.0) % RDW 13.0 (11.8-14.1) % Plt Count 345 (130-400) 10^3/uL MPV 10.1 (8.0-11.0) fL Immature Gran % 0.5 % Neutrophils % 79.1 % Lymphocytes % 7.6 % Monocytes % 8.5 % Eosinophils % 3.4 % Basophils % 0.9 % Nucleated RBC % 0.0 (0.0-0.3) % Absolute Neutrophils 8.58 H (1.2-6.7) 10^3/uL Absolute Lymphocytes 0.82 L (1.2-3.4) 10^3/uL Absolute Monocytes 0.92 H (0.1-0.8) 10^3/uL Absolute Eosinophils 0.37 (0.0-0.7) 10^3/uL Absolute Basophils 0.10 (0.0-0.2) 10^3/uL RBC Morphology See Below Macrocytosis 2+ PT 10.7 (9.1-11.1) sec INR 1.1 (0.9-1.1) APTT 27.6 (20.6-30.2) sec Sodium 146 H (136-145) mmol/L Potassium 4.4 (3.5-5.1) mmol/L Chloride 103 (98-107) mmol/L Carbon Dioxide 37.6 H (21.0-32.0) mmol/L Anion Gap 5.4 (3-11) mmol/L BUN 31 H (7-18) mg/dL Creatinine 0.8 (0.70-1.30) mg/dL Est GFR (CKD-EPI 2020) 90.58 (mL/min/1.73m2) Glucose 88 (74-106) mg/dL Calcium 9.3 (8.5-10.1) mg/dL Magnesium 2.4 mg/dL Total Bilirubin 0.3 (0.2-1.0) mg/dL AST 53 H (15-37) U/L ALT 49 (16-63) U/L Alkaline Phosphatase 215 H (46-116) U/L Troponin I 37 (<or=76) ng/L NT-Pro-B Natriuret Pep 2668 H (<300) pg/mL Total Protein 7.5 (6.4-8.2) g/dL Albumin 2.6 L (3.4-5.0) g/dL Procalcitonin 0.16 ng/mL TSH 16.34 H (0.36-3.74) uIU/mL Free T4 0.86 (0.76-1.46) ng/dL COVID-19 Source SARS-CoV-2 (PCR) (Negative) Influenza Type A (PCR) (Negative) Influenza Type B (PCR) (Negative) RSV (PCR) (Negative) 09/12/24 18:37 Blood Culture - Pending Blood 09/12/24 18:20 Blood Culture - Pending Blood Intake and Output - 24 Hour Total 09/12/24 16:46 thru 09/12/24 19:55 Intake Total 150 Balance 150 Weight 43.091 kg Intake: IV 150 Falls Risk Assessment History of Falls Previous History 09/12/24 17:58 Contributing Factors Impairments,Medications 09/12/24 17:58 Fall Total Score 21 09/12/24 17:58 Level of Risk Maximum Risk 09/12/24 17:58 Problems (Last Reviewed 09/12/24 @ 19:40 by Jhonny Grant) Iron deficiency anemia (Chronic) GERD (gastroesophageal reflux disease) (Chronic) Acute hypoxic respiratory failure (Acute) HCAP (healthcare-associated pneumonia) (Acute) Laryngeal cancer (Chronic) COPD (chronic obstructive pulmonary disease) (Chronic) Notes 09/12/24 18:13 Respiratory by Patricio Diggs Spoke with nursing staff at [facility] across the [place], where Pineda has been living recently. The staff over there confirmed that he is getting humidification with his O2 through his [facility]. Initialized on 09/12/24 18:13 - END OF NOTE v v v v v v v v v Sending and/or Receiving Nurses: Please use comment section below to note any information pertinent to the patient hand-off not included above. Information / Comments: Patient arrived with dyspnea and fever x 2 days, updraft, suction, iv acetaminophen, vanco and zosyn given. 80s on patient's normal 6l trach now 94-95% xray-infiltrates, BC sent Report received from: Rachelle Rees @ 2049
[2024-09-12 22:42] LABS: Bilirubin Negative (Negative); Blood Moderate (Negative); Clarity Cloudy (Clear); Glucose Negative (Negative); Ketones Negative (Negative); Leukocyte Esterase Large (Negative); Nitrite Negative (Negative); Specific Gravity 1.015 (1.005-1.025); Urobilinogen 0.2 mg/dL (Up to 0.2); pH 5.5 (5-8)
[2024-09-12 22:56] LABS: Bacteria Many HPF (Negative); C & S Indicated? Yes; Casts Negative LPF (Negative); Crystals Negative HPF (Negative); Epithelial Cells Few HPF (Negative); Mucus Moderate (Negative); RBC 0-2 HPF (0-2); WBC >50 HPF (0-5)
[2024-09-12] MEDS: Normal Saline 250 ML IV (23:05)
[2024-09-13] VITALS (14 sets, daily range): BP systolic 115–158; BP diastolic 44–64; PULSE 62–82; RESP 2–20; TEMP 36.9–37.6; O2SAT 84–98
[2024-09-13] MEDS: CEFEPIME 2 GM in Normal Saline 100 ML IVPB ×2 (01:04→15:14)
[2024-09-13] MEDS: Acetaminophen 325 MG TAB PO (04:49)
[2024-09-13] MEDS: Levothyroxine 88 MCG TAB PO (04:50)
[2024-09-13] MEDS: Albuterol/Ipratropium 3 ML UPD VIAL UPD ×4 (06:03→23:55)
[2024-09-13 06:45] LABS: HCT 35.8 % (40.0-50.0); HGB 11.3 g/dL (13.5-17.5); MCH 32.7 pg (27.0-33.0); MCHC 31.6 % (32.0-36.0); MCV 104 fL (80-95); MPV 10.2 fL (8.0-11.0); Platelet Count 302 10^3/uL (130-400); RBC 3.46 10^6/uL (4.36-5.78); RDW 12.8 % (11.8-14.1); RDW-SD 48.4 fL; WBC 11.56 10^3/uL (4.4-10.8)
[2024-09-13 07:02] LABS: ALT 38 U/L (16-63); AST 40 U/L (15-37); Albumin 2.5 g/dL (3.4-5.0); Alkaline Phosphatase 186 U/L (46-116); Anion Gap 8.5 mmol/L (3-11); BUN 30 mg/dL (7-18); Bilirubin, Total 0.5 mg/dL (0.2-1.0); CO2 31.5 mmol/L (21.0-32.0); Calcium 8.8 mg/dL (8.5-10.1); Chloride 106 mmol/L (98-107); Estimated GFR 77.04 (mL/min/1.73m2); Glucose 103 mg/dL (74-106); Magnesium 2.3 mg/dL; Potassium 3.9 mmol/L (3.5-5.1); Sodium 146 mmol/L (136-145)
[2024-09-13] MEDS: VANCOMYCIN/WATER (PEG) 1.25 GM/250 ML BAG IVPB (08:14)
[2024-09-13] MEDS: Gabapentin 300 MG CAP 600 MG NG ×3 (08:15→20:15)
[2024-09-13] MEDS: rOPINIRole 0.5 MG TAB NG ×2 (08:15→20:16)
[2024-09-13] MEDS: Omeprazole 20 MG CAPCR NG ×2 (08:15→20:15)
[2024-09-13] MEDS: Enoxaparin 40 MG/0.4 ML SYR SC (08:15)
[2024-09-13] MEDS: Aspirin 81 MG CHEW NG (08:15)
[2024-09-13] MEDS: Finasteride 5 MG TAB NG (08:15)
[2024-09-13] MEDS: Sertraline 100 MG TAB NG (08:15)
[2024-09-13] MEDS: Tamsulosin 0.4 MG CAPCR PO (08:15)
[2024-09-13] MEDS: Metoprolol CR 25 MG TABCR NG (08:15)
[2024-09-13] MEDS: levETIRAcetam Oral Solution 100 MG/ML 500 MG NG ×2 (08:16→20:16)
--- NOTE | 2024-09-13 09:01 | PDOC.CMIN ---
Date of service: 09/13/24 Time of Service: 09:01 Care Management Initial Assmt Initial Assessment Reason for Hospitalization: CAP Functional Status/Living Situation Patient Presentation: Pineda was lying in bed asleep when CM met with him. CM did not disturb him. His girlfriend Kiara was visiting and indicated that he has been sleeping a lot today. Pineda was just discharged from [facility] 6 days ago after a fall with a possible subdural hematoma. He also has chronic respiratory failure and requires continuous oxygen at 6L/min. Pineda was admitted with pneumonia and pleural effusions. He was initially hypotensive, hypoxic and febrile (38.5) however he seems better today. He is hemodynamically stable, afebrile and his O2 saturation levels have been in the 90s. CM will follow. Town of Residence: [place] but currently at [facility] for rehab. 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) Instrumental Activities of Daily Living (ADLs): Requires support Medications Medication Management: No Issues/Barriers identified Physical Functioning/Mobility Assistive Device: Walker Advance Directives Advance Directives: Do you have an Advance Directive: Y 12/11/22 13:39 AD On File at [facility]: Y 12/11/22 13:39 Date Asked 08/29/24 08/29/24 12:10 AD Date Reviewed 08/31/24 08/31/24 16:01 COLST On File at [facility] Yes 12/11/22 13:39 COLST Date Scanned 04/13/21 12/11/22 13:39 Code Status Resuscitation Status DNR Insurance Coverage/Financial Issues Insurance: Medicare A[employer] Supplement Care Team Visit Care Team Role Provider Type Nelson Moura MD MD [facility] STAFF PHYSICIAN Nazia Chan Primary Care Provider [employer] 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 He will follow up with facility providers and plan of care and transport via RCT. CM will continue to support discharge planning. Social Determinants of Health Screening Will the Patient Participate in the Screening?: Unable to obtain PFSH All Active Problems (Updated 09/12/24 @ 20:12 by Jhonny Grant) Iron deficiency anemia (Chronic) GERD (gastroesophageal reflux disease) (Chronic) Acute hypoxic respiratory failure (Acute) HCAP (healthcare-associated pneumonia) (Acute) Laceration of scalp (Acute) Right subclavian artery occlusion (Acute) Leg pain (Acute) Tracheostomy in place (Acute) Occlusion of celiac artery (Acute) Urinary tract infection (Acute) Foreign body sensation, throat (Acute) Right clavicle fracture (Acute 08/30/23) Syncope (Chronic) Ground glass opacity present on imaging of lung (Acute) Subdural hematoma (Acute) Pulmonary edema (Acute) Fracture of thumb, left, closed (Acute) Acute non-ST elevation myocardial infarction (NSTEMI) (Acute) Arm pain (Acute) Hemoptysis (Acute) Nausea & vomiting (Acute) Regurgitation of food (Acute) Pulmonary embolism (Chronic) Uses feeding tube (Acute) Gross hematuria (Acute) Ambulatory dysfunction (Acute) Leukocytosis (leucocytosis) (Acute) UTI (urinary tract infection) (Acute) Multiple subsegmental pulmonary emboli without acute cor pulmonale (Acute) C1 cervical fracture (Acute) Gastrostomy tube dysfunction (Acute) Encounter for hospice care discussion (Acute) Unintentional weight loss of 10% body weight within 6 months (Acute) Dysuria (Acute) Malfunctioning jejunostomy tube (Acute) Need for follow-up by child protective services social worker (Acute) Dysphagia (Acute) Impaired instrumental activities of daily living (Acute) Plantar fascial fibromatosis (Acute) Feeding tube dysfunction (Acute) Sensorineural hearing loss (SNHL) of both ears (Acute) Otalgia of right ear (Acute) Neck pain on right side (Acute) Neck pain on right side (Acute) Full code status (Acute) Need for home health care (Acute) MRSA pneumonia (Acute) pt likely colonized Occlusion of right vertebral artery (Acute) Hypoxemia (Acute) Complication of feeding tube (Acute) Peripheral neuropathy (Acute 02/21/15) PAOD (peripheral arterial occlusive disease) (Acute) Laryngeal cancer (Chronic) COPD (chronic obstructive pulmonary disease) (Chronic) 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 (Acute) Compression fracture of thoracolumbar vertebra (Acute) Dependence on supplemental oxygen (Chronic) Medical History On deep vein thrombosis (DVT) prophylaxis Recurrent syncope Laceration of occipital region of scalp Fall Orthostatic hypotension Palliative care patient Caregiver stress Advance care planning Weakness G tube feedings 20F 3.0cm 11/30/22. Routine change every 4 months. 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 Hypertension Tobacco use COPD (chronic obstructive pulmonary disease) Post herpetic neuralgia Hypothyroidism Hyperlipemia Depression Anxiety Conjunctivitis, chronic Surgical History S/P AAA (abdominal aortic aneurysm) repair Status post laryngectomy History of esophagogastroduodenoscopy (EGD) (~08/10/19) Daron Casper [place]N [place] [facility] [place] hiatal her[place], GERD, Reyes's esophagitis, neuromuscular dysfunction History of laryngectomy Status post cardiac catheterization Status post cataract extraction and insertion of intraocular lens of right eye (07/12/18) History of tarsorrhaphy Status post cataract extraction and insertion of intraocular lens of left eye (04/30/12) 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) Sin-mullins button placed by Dr Elia Mcdonald, [facility] PROCEDURES RT/LEFT HEART CARD CATH COMPLETE LARYNGECTOMY Esophagoplasty EGD - MAC (07/06/17) Colonoscopy - MAC (12/22/16) History of radical laryngectomy Family History Nephew Throat cancer Maternal Cousin Cancer Social History Smoking/Tobacco Use Status: Former Tobacco Use Quit Date: 04/23/13 Tobacco: How many years used: 20 Smoking risk assessment performed?: Yes Alcohol Intake: never Drug use: Never Substance use type: does not use Housing: shelter Current gender identity: male Do you feel safe at home: Yes Do you feel safe in your relationship?: Yes Additional Social history: Lives with partner/caregiver Kiara caraballo in [place] Readmission Within the Past 30 Days Yes or No: Yes Date of First Admission Date of 1st Admission: 08/31/24 Date of this Admission Date of Admission: 09/12/24 This admission was: Through ED ED visits How many ED visits in the past 12 months: 10 Assessment for Readmission Summary of readmission circumstances, based upon interviews: Patient with chronic respiratory infections with respiratory failure presented today from SNF where he developed pneumonia with pleural effusions. He had just been discharged to the SNF 6 days ago and according to his partner Kiara, had been doing well and working with PT.
--- NOTE | 2024-09-13 10:46 | PHA.REVIEW2 ---
Pharmacy Admission Review Admission Clinical Review Admission Pharmacy Review: Acute hypoxic respiratory failure (Acute) HCAP (healthcare-associated pneumonia) (Acute) pollen extracts Allergy (Mild, Verified 09/12/24 18:00) Wheezing Tetracyclines Allergy (Unknown, Verified 09/12/24 18:00) SKIN RASH Resuscitation Status DNR Height 5 ft 10 in Weight 58.6 kg Pharmacy Admission Review Renal Dosing Renal Dosing: BUN 30 mg/dL (7-18) H 09/13/24 06:30 Creatinine 1.0 mg/dL (0.70-1.30) 09/13/24 06:30 Medications needing adjustments: Reviewed (CrCl 50 mL/min, BUN decreased from 31) List of meds needing interventions: Current medications are okay Anticoagulation Anticoagulation: Hgb 11.3 g/dL (13.5-17.5) L 09/13/24 06:30 Hct 35.8 % (40.0-50.0) L 09/13/24 06:30 Plt Count 302 10^3/uL (130-400) 09/13/24 06:30 INR 1.1 (0.9-1.1) 09/12/24 17:31 Creatinine 1.0 mg/dL (0.70-1.30) 09/13/24 06:30 DVT Prophylaxis: Reviewed (Hgb decreased from 12.1) Medications: Enoxaparin (40mg daily) Relevant Labs Relevant Labs: Sodium 146 mmol/L (136-145) H 09/13/24 06:30 Potassium 3.9 mmol/L (3.5-5.1) 09/13/24 06:30 Chloride 106 mmol/L (98-107) 09/13/24 06:30 Magnesium 2.3 mg/dL 09/13/24 06:30 Electrolytes, C-Reactive P, ESR: Reviewed (AST/ALT decreased from 53/49 to 40/38) Cardiac Review Cardiac Review: Troponin I 39 ng/L (<or=76) 09/12/24 20:45 NT-Pro-B Natriuret Pep 2668 pg/mL (<300) H 09/12/24 17:31 Blood Pressure 158/64 0747 Blood Pressure 130/44 0443 Blood Pressure 139/52 0132 BP, HR, EF%: Reviewed (HR WNL) List meds needing interventions: Has order for metoprolol XL 25mg daily QTc Review QTc: Reviewed (454 from 09/12/24) IV to PO Switch IV Medications: Reviewed (cefepime and vancomycin) Home Meds Home Med List reviewed: Reviewed Relevent Home Meds Not ordered & why?: sodium chloride 0.9% for nebulization Asked provider about missing home med, waiting to hear back Current Meds Current Medication Order Review: Intervened Comments: Changed medication orders to liquid formulations if available and changed route from PO to NG for most other orders - provider aware of changes Changed Align probiotic (from home med list) to daily lactobacillus (formulary) - provider aware Pharmacy Antibiotic Review Relevant Labs: Relevant Labs 09/12/24 17:31 Procalcitonin 0.16 WBC 11.56 10^3/uL (4.4-10.8) H 09/13/24 06:30 Procalcitonin 0.16 ng/mL 09/12/24 17:31 Temperature 36.9 C 1046 Temperature 37.0 C 0747 Temperature 37.6 C 0443 Temperature 37.5 C 0132 Pharmacy Antibiotic Activity: C/S review and Reviewed, no change Comments: Patient is on cefepime and vancomycin, day 1, for bilateral pneumonia. Current vancomycin dose is 1250mg q24h with predicted AUC of 531 and trough of 15.5. Ordered level for tomorrow with morning labs, will adjust dose as needed. WBC increased from 10.85 and urine/blood cultures pending.
--- NOTE | 2024-09-13 11:49 | W.PM.PROGNOT ---
Date of Service Date of service: 09/13/24 Time of Service: 11:49 Assessment and Plan Assessment and plan (1) HCAP (healthcare-associated pneumonia): Status: Acute Assessment and plan: -Patient with multiple recent hospitalizations and recurrent pneumonia in the setting of trach tube and end-stage laryngeal cancer requiring PEG tube -High likelihood of aspiration -Started on cefepime and vancomycin, will continue -Patient did not meet sepsis criteria as he was not tachycardic, tachypneic, febrile, and did not have leukocytosis -Follow-up blood culture results -Palliative care consult ordered as patient is a DNR but would want trial intubation at this time, and this requires repeated follow-up and discussion as patient's frequent hospitalizations and overall decline would not lead to favorable outcome if patient were to be placed on ventilator (2) Acute hypoxic respiratory failure: Status: Acute Assessment and plan: - Secondary to pneumonia as noted above -Patient is normally on baseline 6 L through his trach, requiring up to 10 L -Wean as tolerated (3) COPD (chronic obstructive pulmonary disease): Status: Chronic Assessment and plan: -Without acute exacerbation -Nebulizer treatments as needed. (4) Laryngeal cancer: Status: Chronic Assessment and plan: -Symptomatic care. -Patient is on PEG tube feeding. (5) CAD (coronary artery disease): Assessment and plan: -Continue outpatient medical therapy. (6) Hypothyroidism: Assessment and plan: -Continue outpatient supplement (7) Hyperlipidemia: Assessment and plan: -Continue outpatient statin dose. (8) Restless leg syndrome: Assessment and plan: -Continue outpatient medical therapy. (9) BPH w urinary obs/LUTS: Assessment and plan: -Patient does not require catheterization at this time. Observe for complications. (10) GERD (gastroesophageal reflux disease): Status: Chronic Assessment and plan: -Continue outpatient PPI. (11) Iron deficiency anemia: Status: Chronic Assessment and plan: -Continue iron supplementation. (12) Depressive disorder: Assessment and plan: -Continue antidepressant. (13) Subdural hematoma, post-traumatic: Status: Resolved Assessment and plan: -Patient is on Keppra which will be continued with some spells that may have been seizure-like mention but no overt history of seizure disorder status post trauma. Subjective Subjective Interval history since last seen: Patient states that he is doing okay today but that he is tired. Otherwise he has no other complaints or concerns at this time. Exam Narrative Exam Narrative: Chronically ill cachectic-appearing older gentleman laying in bed, fatigued, ANO x 4, trach in place, heart regular rate rhythm, lungs diffuse coarse breath sounds throughout, abdomen soft, nontender, nondistended Objective Last Vital Signs Temp 98.4 F 09/13/24 10:46 Pulse 62 09/13/24 10:46 Resp 20 09/13/24 10:46 BP 118/48 L 09/13/24 10:46 Pulse Ox 97 09/13/24 10:46 Laboratory Results - last 24 hr 09/12/24 09/12/24 09/12/24 17:31 18:53 19:16 WBC 10.85 H RBC 3.70 L Hgb 12.1 L Hct 39.4 L MCV 107 H MCH 32.7 MCHC 30.7 L RDW 13.0 Plt Count 345 MPV 10.1 Immature Gran % 0.5 Neutrophils % 79.1 Lymphocytes % 7.6 Monocytes % 8.5 Eosinophils % 3.4 Basophils % 0.9 Nucleated RBC % 0.0 Absolute Neutrophils 8.58 H Absolute Lymphocytes 0.82 L Absolute Monocytes 0.92 H Absolute Eosinophils 0.37 Absolute Basophils 0.10 RBC Morphology See Below Macrocytosis 2+ PT 10.7 INR 1.1 APTT 27.6 Sodium 146 H Potassium 4.4 Chloride 103 Carbon Dioxide 37.6 H Anion Gap 5.4 BUN 31 H Creatinine 0.8 Est GFR (CKD-EPI 2020) 90.58 Glucose 88 Calcium 9.3 Magnesium 2.4 Total Bilirubin 0.3 AST 53 H ALT 49 Alkaline Phosphatase 215 H Troponin I 37 37 NT-Pro-B Natriuret Pep 2668 H Total Protein 7.5 Albumin 2.6 L Procalcitonin 0.16 TSH 16.34 H Free T4 0.86 Urine Color Urine Clarity Urine pH Ur Specific [place] Urine Protein Urine Ketones Urine Blood Urine Nitrite Urine Bilirubin Urine Urobilinogen Ur Leukocyte Esterase Urine RBC Urine WBC Ur Epithelial Cells Urine Crystals Urine Bacteria Urine Casts Urine Mucus Ur Culture Indicated? Urine Glucose COVID-19 Source Nasopharynx SARS-CoV-2 (PCR) Negative Influenza Type A (PCR) Negative Influenza Type B (PCR) Negative RSV (PCR) Negative 09/12/24 09/12/24 09/13/24 20:45 22:30 06:30 WBC 11.56 H RBC 3.46 L Hgb 11.3 L Hct 35.8 L MCV 104 H MCH 32.7 MCHC 31.6 L RDW 12.8 Plt Count 302 MPV 10.2 Immature Gran % Neutrophils % Lymphocytes % Monocytes % Eosinophils % Basophils % Nucleated RBC % Absolute Neutrophils Absolute Lymphocytes Absolute Monocytes Absolute Eosinophils Absolute Basophils RBC Morphology Macrocytosis PT INR APTT Sodium 146 H Potassium 3.9 Chloride 106 Carbon Dioxide 31.5 Anion Gap 8.5 BUN 30 H Creatinine 1.0 Est GFR (CKD-EPI 2020) 77.04 Glucose 103 Calcium 8.8 Magnesium 2.3 Total Bilirubin 0.5 AST 40 H ALT 38 Alkaline Phosphatase 186 H Troponin I 39 NT-Pro-B Natriuret Pep Total Protein 7.0 Albumin 2.5 L Procalcitonin TSH Free T4 Urine Color Yellow Urine Clarity Cloudy Urine pH 5.5 Ur Specific [place] 1.015 Urine Protein 30 H Urine Ketones Negative Urine Blood Moderate H Urine Nitrite Negative Urine Bilirubin Negative Urine Urobilinogen 0.2 Ur Leukocyte Esterase Large H Urine RBC 0-2 Urine WBC >50 H Ur Epithelial Cells Few Urine Crystals Negative Urine Bacteria Many Urine Casts Negative Urine Mucus Moderate Ur Culture Indicated? Yes Urine Glucose Negative COVID-19 Source SARS-CoV-2 (PCR) Influenza Type A (PCR) Influenza Type B (PCR) RSV (PCR) Time Spent with Patient Time Spent with Patient: >50 minutes Time was spent: preparing to see the patient(eg.review tests), obtaining and/or reviewing separately otained hiistory, ordering medications,tests, procedures, referring, communicating with other health child care attendant school, indepentently interpreting results, counseling the patient and care coordination
--- NOTE | 2024-09-13 12:58 | TELEFU_ITS ---
Date of service: 09/13/24 Time of Service: 12:58 Nutrition Note NOTE: see nutrition consult note dated 09/01/24 Pt readmitted for respiratory failure. initiated his usual enteral feeding protocol at home which is 4 cartons nutren 2.0 over 12 hour period (pt usually does nocturnal feeds at home). Will reassess regularly to ensure toleration Pt takes oral sips of thin fluids to help meet his fluid needs in addtion to water provided by enteral formula. Due to the nature of living in retirement with no natural light, and no current supplementation would recommend vitamin D lab and supplement if low. Time Spent in Nutritional Counseling and Treatment: 5 minutes
[2024-09-13] MEDS: Normal Saline Flush 10 ML SYR IVP ×2 (15:14→20:14)
[2024-09-13] MEDS: Rosuvastatin 20 MG TAB 40 MG NG (20:15)
[2024-09-13] MEDS: Acetylcysteine 600 MG CAP PO (20:16)
[2024-09-13] MEDS: Melatonin 3 MG TAB PO (20:16)
[2024-09-13] MEDS: Albuterol 2.5 MG/3 ML INH SOLN VIAL UPD (21:25)
[2024-09-14] VITALS (11 sets, daily range): BP systolic 106–160; BP diastolic 47–107; PULSE 61–86; RESP 2–21; TEMP 36.9–37.4; O2SAT 87–96
[2024-09-14] MEDS: Normal Saline Flush 10 ML SYR IVP ×2 (02:43→08:19)
[2024-09-14] MEDS: CEFEPIME 2 GM in Normal Saline 100 ML IVPB ×2 (02:44→13:41)
[2024-09-14] MEDS: Albuterol/Ipratropium 3 ML UPD VIAL UPD ×2 (06:08→10:55)
[2024-09-14 06:24] LABS: HCT 34.4 % (40.0-50.0); HGB 10.8 g/dL (13.5-17.5); MCH 32.5 pg (27.0-33.0); MCHC 31.4 % (32.0-36.0); MCV 104 fL (80-95); MPV 10.2 fL (8.0-11.0); Platelet Count 331 10^3/uL (130-400); RBC 3.32 10^6/uL (4.36-5.78); RDW 12.9 % (11.8-14.1); RDW-SD 48.9 fL; WBC 9.59 10^3/uL (4.4-10.8)
[2024-09-14] MEDS: Levothyroxine 88 MCG TAB NG (06:30)
[2024-09-14 06:41] LABS: Vancomycin, Random 11.9 ug/mL
[2024-09-14 06:42] LABS: ALT 48 U/L (16-63); AST 57 U/L (15-37); Albumin 2.1 g/dL (3.4-5.0); Alkaline Phosphatase 183 U/L (46-116); Anion Gap 7.9 mmol/L (3-11); BUN 32 mg/dL (7-18); Bilirubin, Total 0.3 mg/dL (0.2-1.0); CO2 32.1 mmol/L (21.0-32.0); CREATININE 0.7 mg/dL (0.70-1.30); Calcium 8.4 mg/dL (8.5-10.1); Chloride 107 mmol/L (98-107); Estimated GFR 94.31 (mL/min/1.73m2); Glucose 115 mg/dL (74-106); Magnesium 2.5 mg/dL; Sodium 147 mmol/L (136-145); Total Protein 6.4 g/dL (6.4-8.2)
[2024-09-14] MEDS: Nystatin POWDER 15 GM JAR TP (08:15)
[2024-09-14] MEDS: levETIRAcetam Oral Solution 100 MG/ML 500 MG NG (08:15)
[2024-09-14] MEDS: Tamsulosin 0.4 MG CAPCR PO (08:16)
[2024-09-14] MEDS: Metoprolol CR 25 MG TABCR NG (08:17)
[2024-09-14] MEDS: Gabapentin 300 MG CAP 600 MG NG ×2 (08:17→13:45)
[2024-09-14] MEDS: Omeprazole 20 MG CAPCR NG (08:17)
[2024-09-14] MEDS: Acetylcysteine 600 MG CAP PO (08:17)
[2024-09-14] MEDS: Lactobacillus Acidophilus CAP 1 CAP NG (08:18)
[2024-09-14] MEDS: rOPINIRole 0.5 MG TAB NG (08:18)
[2024-09-14] MEDS: Finasteride 5 MG TAB NG (08:18)
[2024-09-14] MEDS: Aspirin 81 MG CHEW NG (08:18)
[2024-09-14] MEDS: VANCOMYCIN 1,250 MG in Normal Saline 250 ML 166.667 MG IVPB (08:18)
[2024-09-14] MEDS: Sertraline 100 MG TAB NG (08:19)
[2024-09-14] MEDS: Enoxaparin 40 MG/0.4 ML SYR SC (08:20)
--- NOTE | 2024-09-14 08:59 | PDOC.CMPRO ---
Date of service: 09/14/24 Time of Service: 09:00 Care Management Progress Note Discharge Potential Discharge Needs: Other (return to SNF) Anticipated Barriers to Discharge: None Identified Patient/Family Education Needs: Review discharge instructions, discuss Ask Me Three Transportation: Private vehicle Plan: Anticipate Chan will return to [facility] when medically cleared. He will follow up with facility providers and plan of care and transport via RCT. CM will continue to support discharge planning. Social Determinants of Health Screening Will the Patient Participate in the Screening?: Unable to obtain
[2024-09-14] MEDS: Acetaminophen Solution 650 MG/20.3 ML CUP NG (09:43)
--- NOTE | 2024-09-14 09:54 | PCNE_ITS ---
Date of service: 09/14/24 Time of Service: 09:00 History of Present Illness Narrative: Mr. Sung is a 79 y/o M est PC pt currently hospitalized at [facility] 2/2 HCAP; PMHx sig for h/o laryngeal cancer s/p tacheostomy and PEG tube, COPD, chronic hypoxic respiratory failure on 6L of O2 via trach collar, mucuous plugging requiring bronchoscopy in the past, as well as h/o MRSA colonization, AAA s/p repair; present caregiver/[facility] Hospital Course: Pineda presented to ED on 09/12 after 2d worsening dyspnea and new onset fever from H/R, hypoxic on 6L on arrival, CXR w/bilateral lower infiltrates and pleural effusions, consistent w/HCAP d/t recent hospitalizations, started on vanco/cefepime; currently back to baseline respiratory status Recent relevant history: Pineda has had several hospitalizations in recent months, related to falls (subdural hematoma), hypoxia and respiratory failure, failure to thrive. Most recently discharged from [facility] on 09/06 to [facility] H/R w/plan to attempt to rehab for 2 weeks, then consider returning home - either on hospice or w/HH supports per staff: Pineda has made statements that he wants to go home or be sent to unit for intubation. per H/R staff: initially settled in at H/R in beginning, when became dyspnic this amped him up, more anxious when not feeling well. no issues/concerns w/feeding tube noted; Sky visiting daily; they are anticipating his return 1st visit: Pineda is requesting morphine for dyspnea and pain. communicating via white board, on arrival white board said can't breath. 2nd visit; Sky now present; Pineda is feeling much more comfortable, he feels this is in part bc Sky is present. Morphine also helped. - Pineda confirms that his previous statements regarding going home vs intubation were made in fear d/t dyspnea go home was to support his EOL in home, intubation to do something for dyspnea. happy w/no intubation and treat w/meds - Pineda continues to defer decision making to Sky, though he is aware he is in charge of his own medical decisions until he does not have capacity to do so. - his preferred location would be home, however he is aware he cannot go home without a change in supports in his current condition. He follows Sky's lead on returning to SNF w/goals of getting stronger before evaluating returning home - previous plan to attend rehab at H/R w/goal of gaining some strength, if no improvements, go home with hospice supports - he does not want to dump things on Sky, meaning decision making and caregiving duties Sky feels his family would be in support of all decisions today, she would like them involved in decision making, but is aware ultimately she is his HCA to act on his stated wishes Assessment and Plan Assessment and plan (1) Dyspnea: Status: Acute Assessment and plan: recommend morphine 1mg IVP now; good effect w/dyspnea, not pain order written for q4h PRN - consider 0.5mg q1h PRN for dyspnea in future, need for discuss/review w/Pineda and HCA this afternoon; suspect dyspnea will be ongoing lifelong concern moving forward - ordered 0.5mg q1h PRN for dyspnea, outpatient to [facility] at H/R (2) Acute hypoxic respiratory failure: Status: Acute Assessment and plan: now back to baseline (3) HCAP (healthcare-associated pneumonia): Status: Acute Assessment and plan: continue vancomycine and cefepime (4) Leg pain: Status: Acute Assessment and plan: morphine 1mg IVP w/no effect, previously required 2mg for pain order q4h PRN - outpatient order for 20mg q4h PRN for pain ordered to [facility] (5) Weakness: Assessment and plan: ongoing, worsening - able to clear secretions w/cough this morning - high fall risk (6) Uses feeding tube: Status: Acute (7) Ambulatory dysfunction: Status: Acute Assessment and plan: high fall risk (8) COPD (chronic obstructive pulmonary disease): Status: Chronic Assessment and plan: w/multiple recent episodes of acute resp failure w/hypoxic episodes (9) Palliative care patient: Assessment and plan: PC will continue to follow during this hospitalization and outpatient as appropriate Plan for outpatient f/u 09/27, to review recovery status, consider pivot to home on hospice at any time - consider transition to hospice if prefers prior to f/u (10) Caregiver stress: Assessment and plan: Sky previously not able to care for Pineda in home w/o more supports aware she needs hospice in home to support him remaining home; some concerns w/still not enough caregiving support (11) Advance care planning: Assessment and plan: previous plan to trial H/R for acute recovery, if no recovery plan to return home with hospice supports - frequent hospitalizations, ongoing decline; low to no chance of recovery to previous baseline reviewed the above, w/highlighted concerns over intubations impact on QoL and not prolonging life or allowing Pineda to be Pineda, likelihood of never successfully being extubated, sky would then need to make decision to withdraw care, which can be quite difficult reviewed changes in morphine request, indicating a decline awareness as well, requiring more symptom management, plan for outpatient follow up and management with palliative care Plan continues to be to discharge to H/R w/goals of engaging in rehab to regain some strength, if no improvement/engagement after 2 weeks, consider home on hospice, if some improvement, remain in H/R Review of Systems Narrative: as per HPI PFSH All Active Problems Dyspnea (Acute) Iron deficiency anemia (Chronic) GERD (gastroesophageal reflux disease) (Chronic) Acute hypoxic respiratory failure (Acute) HCAP (healthcare-associated pneumonia) (Acute) Laceration of scalp (Acute) Right subclavian artery occlusion (Acute) Leg pain (Acute) Tracheostomy in place (Acute) Occlusion of celiac artery (Acute) Urinary tract infection (Acute) Foreign body sensation, throat (Acute) Right clavicle fracture (Acute 08/30/23) Syncope (Chronic) Ground glass opacity present on imaging of lung (Acute) Subdural hematoma (Acute) Pulmonary edema (Acute) Fracture of thumb, left, closed (Acute) Acute non-ST elevation myocardial infarction (NSTEMI) (Acute) Arm pain (Acute) Hemoptysis (Acute) Nausea & vomiting (Acute) Regurgitation of food (Acute) Pulmonary embolism (Chronic) Uses feeding tube (Acute) Gross hematuria (Acute) Ambulatory dysfunction (Acute) Leukocytosis (leucocytosis) (Acute) UTI (urinary tract infection) (Acute) Multiple subsegmental pulmonary emboli without acute cor pulmonale (Acute) C1 cervical fracture (Acute) Gastrostomy tube dysfunction (Acute) Encounter for hospice care discussion (Acute) Unintentional weight loss of 10% body weight within 6 months (Acute) Dysuria (Acute) Malfunctioning jejunostomy tube (Acute) Need for follow-up by social media marketer (Acute) Dysphagia (Acute) Impaired instrumental activities of daily living (Acute) Plantar fascial fibromatosis (Acute) Feeding tube dysfunction (Acute) Sensorineural hearing loss (SNHL) of both ears (Acute) Otalgia of right ear (Acute) Neck pain on right side (Acute) Neck pain on right side (Acute) Full code status (Acute) Need for home health care (Acute) MRSA pneumonia (Acute) pt likely colonized Occlusion of right vertebral artery (Acute) Hypoxemia (Acute) Complication of feeding tube (Acute) Peripheral neuropathy (Acute 02/21/15) PAOD (peripheral arterial occlusive disease) (Acute) Laryngeal cancer (Chronic) COPD (chronic obstructive pulmonary disease) (Chronic) 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 (Acute) Compression fracture of thoracolumbar vertebra (Acute) Dependence on supplemental oxygen (Chronic) Medical History On deep vein thrombosis (DVT) prophylaxis Recurrent syncope Laceration of occipital region of scalp Fall Orthostatic hypotension Palliative care patient Caregiver stress Advance care planning Weakness G tube feedings 20F 3.0cm 11/30/22. Routine change every 4 months. 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 Hypertension Tobacco use COPD (chronic obstructive pulmonary disease) Post herpetic neuralgia Hypothyroidism Hyperlipemia Depression Anxiety Conjunctivitis, chronic Surgical History S/P AAA (abdominal aortic aneurysm) repair Status post laryngectomy History of esophagogastroduodenoscopy (EGD) (~08/10/19) Daron Casper APRN @ [facility]: hiatal hernia, GERD, Reyes's esophagitis, neuromuscular dysfunction History of laryngectomy Status post cardiac catheterization Status post cataract extraction and insertion of intraocular lens of right eye (07/12/18) History of tarsorrhaphy Status post cataract extraction and insertion of intraocular lens of left eye (04/30/12) 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) Sin-mullins button placed by Dr Elia Mcdonald, [facility] PROCEDURES RT/LEFT HEART CARD CATH COMPLETE LARYNGECTOMY Esophagoplasty EGD - MAC (07/06/17) Colonoscopy - MAC (12/22/16) History of radical laryngectomy Family History Nephew Throat cancer Maternal Cousin Cancer Social History Smoking/Tobacco Use Status: Former Tobacco Use Quit Date: 04/23/13 Tobacco: How many years used: 20 Smoking risk assessment performed?: Yes Alcohol Intake: never Drug use: Never Substance use type: does not use Housing: senior living Current gender identity: male Do you feel safe at home: Yes Do you feel safe in your relationship?: Yes Additional Social history: Lives with partner/caregiver Sky caraballo in [place] Exam Narrative Exam Narrative: General: older adult, chronically and acutely ill/frail appearing; 1st attempt: communicate w/white board, nod yes/no to closed ended questions; 2nd attempt: using voice box, able to speak full sentence one word at a time, improved communication HEENT: normocephalic, hearing grossly WNL; edentulous; mask covering trach stoma Resp: dyspnic, tachypnic, cough w/sputum cleared via trach stoma w/difficulty; Psych: cooperative, 1st attempt: unable to focus/refuses to answer; 2nd attempt: engages in conversation, refuses to answer, defers to Sky; more insightful compared to previous visits, worried about caregiving burden, supports in home, making decisions Results Last Vital Signs Temp 98.6 F 09/14/24 07:38 Pulse 75 09/14/24 07:38 Resp 20 09/14/24 07:38 BP 140/107 H 09/14/24 07:38 Pulse Ox 89 L 09/14/24 08:29 Labs 09/14/24 06:05 09/14/24 06:05 Labs: Laboratory Results - last 24 hr 09/14/24 06:05 WBC 9.59 RBC 3.32 L Hgb 10.8 L Hct 34.4 L MCV 104 H MCH 32.5 MCHC 31.4 L RDW 12.9 Plt Count 331 MPV 10.2 Sodium 147 H Potassium 4.0 Chloride 107 Carbon Dioxide 32.1 H Anion Gap 7.9 BUN 32 H Creatinine 0.7 Est GFR (CKD-EPI 2020) 94.31 Glucose 115 H Calcium 8.4 L Magnesium 2.5 Total Bilirubin 0.3 AST 57 H ALT 48 Alkaline Phosphatase 183 H Total Protein 6.4 Albumin 2.1 L Random Vancomycin 11.9 Time Spent Time Spent with Patient Time Spent(min): 65
[2024-09-14] MEDS: MORPHine 2 MG/ML SYR 1 MG IVP ×2 (09:56→11:17)
--- NOTE | 2024-09-14 13:24 | DSE_ITS ---
Date of service: 09/14/24 Time of Service: 13:24 DS: Diagnosis Discharge Diagnosis (1) Dyspnea: Status: Acute (2) Acute hypoxic respiratory failure: Status: Acute (3) HCAP (healthcare-associated pneumonia): Status: Acute (4) Leg pain: Status: Acute (5) Weakness: (6) Uses feeding tube: Status: Acute (7) Ambulatory dysfunction: Status: Acute (8) COPD (chronic obstructive pulmonary disease): Status: Chronic (9) Palliative care patient: (10) Caregiver stress: (11) Advance care planning: Discharge Plan Disposition Patient Disposition: Shelter Facility(SNF) Condition: Good Discharge Details Reason For Visit: Acute hypoxic respiratory failure, Bilateral pneum Admit Date/Time: 09/12/24 20:10 Admit Provider: Jhonny Grant Attending Provider: Jhonny Grant Primary Care Provider: Nazia Chan Hospital Course Hospital Course: Patient initially presented with signs and symptoms consistent with hospital acquired pneumonia and acute on chronic hypoxic respiratory failure. He was treated with cefepime and zosyn and experienced improvement in his symptoms, including a return to his baseline oxygen requirements. He met with palliative care (see their note for details) and given that the patient primary focus is to continue to rehab and attempt to gain strength, in combination with improvement in his medical condition, it was determined that he was stable to discharge back to [facility] with an additional 7 days of PO levoquin. Home Meds and New Rx's Prescriptions: New levofloxacin 750 mg tablet 750 mg PO DAILY Qty: 7 0RF Continued acetaminophen [Tylenol Extra Strength] 500 mg tablet 1,000 mg PO BID PRN tamsulosin [Flomax] 0.4 mg capsule 0.4 mg PO DAILY Qty: 90 3RF finasteride 5 mg tablet 5 mg PO DAILY Qty: 90 3RF omeprazole 20 mg capsule,delayed release(DR/EC) 20 mg feeding tube BID Qty: 90 4RF acetylcysteine 100 mg/mL (10 %) solution 4 ml inhalation BID metoprolol succinate 25 mg tablet extended release 24 hr 25 mg PO DAILY rosuvastatin 40 mg tablet 40 mg feeding tube HS Qty: 90 4RF polyethylene glycol 3350 [Miralax] 17 gram/dose powder 17 g PO DAILY PRN (Reason: constipation) Rx Instructions: 1/5/23 instructed by PCP to take 1/2 cap daily, may reduce to half cap three times per week if daily is too much nystatin 100,000 unit/gram powder 1 applic topical BID Qty: 60 12RF sulfamethoxazole-trimethoprim 200-40 mg/5 mL suspension 5 ml PO BID 28 Days Qty: 280 6RF acetylcysteine 600 mg capsule See Rx Instructions .ROUTE .COMPLEX Qty: 60 12RF Dose Instruction: TAKE ONE CAPSULE BY MOUTH TWICE A DAY Rx Instructions: TAKE ONE CAPSULE BY MOUTH TWICE A DAY melatonin 3 MG tablet 3 mg PO HS levetiracetam 500 mg tablet 500 mg PO BID Patient Comments: TAKE ONE TABLET BY MOUTH TWICE A DAY ipratropium-albuterol 0.5 mg-3 mg(2.5 mg base)/3 mL solution for nebulization 3 ml IN BID Rx Instructions: increased dose/use treatment 4 times/day as needed NOT SENT levothyroxine 88 mcg tablet 88 mcg PO DAILY Patient Comments: TAKE ONE TABLET BY MOUTH EVERY DAY sertraline 100 mg tablet 100 mg PO DAILY Patient Comments: TAKE ONE TABLET BY MOUTH EVERY DAY ropinirole 1 mg tablet 0.5 mg PO BID Qty: 0 0RF ferrous sulfate [Feosol] 325 mg (65 mg iron) tablet 325 mg PO DAILY Align Jr 10.5 mg (10 million cell) tablet,chewable 10.5 mg PO DAILY aspirin [Children's Aspirin] 81 mg Tablet,Chewable 81 mg CH DAILY Qty: 30 0RF sodium chloride 0.9 % Solution For Nebulization 3 ml UPD BID Qty: 0 0RF gabapentin 300 mg capsule 600 mg PO TID Qty: 360 3RF Discharge Instructions Activity:: Activity as Tolerated Equipment/Supplies:: No Equipment Needed Diet:: As Tolerated Discharge Orders Discharge Orders: Discharge Order (Routine); Ordered 09/14/24 Ordered By: Nelson Moura DS: Summary Time Spent with Patient providing and/or coordinating discharge services: Greater than 30 minutes Status at Discharge Functional status at discharge: independent ambulation Overall status at discharge: patient is back to baseline Mental Status: mental status grossly normal Speech and Movement: speech and movement normal Mood: congruent mood Affect: normal affect Quality:SDOH Health Related Social Needs: No Data to Display Exam Narrative Exam Narrative: Chronically ill cachectic-appearing older gentleman laying in bed, fatigued, ANO x 4, trach in place, heart regular rate rhythm, lungs diffuse coarse breath sounds throughout, abdomen soft, nontender, nondistended Psych Mental Status: mental status grossly normal Speech and Movement: speech and movement normal Mood: congruent mood Affect: normal affect DS: Data Vitals/I&O Vitals and I&O: Vital Signs Temperature 98.4 F 09/14/24 10:00 Temperature Source Temporal Artery Scan 09/14/24 10:00 Pulse 61 09/14/24 11:04 Pulse Rhythm Regular 09/12/24 22:28 Pulse 73 09/12/24 21:40 Respiratory Rate 20 09/14/24 10:55 Respiratory Effort Normal, Non-Labored 09/12/24 22:28 Respiratory Depth Normal 09/12/24 22:28 Respiratory Pattern Normal 09/12/24 22:28 Blood Pressure 110/47 L 09/14/24 10:00 Blood Pressure Mean 59 09/12/24 21:31 Pulse Oximetry 91 L 09/14/24 10:55 Oxygen Delivery Method Venti Mask 09/14/24 10:55 Oxygen Flow Rate 4 09/14/24 10:55 Fraction of Inspired Oxygen (FIO2) 28 09/14/24 10:55 Pain Level 2 09/14/24 12:17 Comment venturi trach mask 09/14/24 10:00 Intake & Output 09/13/24 09/14/24 09/14/24 17:59 05:59 17:59 Intake Total 250 / 250 1177 / 1427 260 / 260 Output Total 275 / 275 225 / 500 430 / 430 Balance -25 / -25 952 / 927 -170 / -170 Weight 136 lb 10.986 oz Intake: IV 250 / 250 210 / 460 260 / 260 Oral 0 / 0 Intake, Tube Feeding Amount 967 / 967 Output: Urine 275 / 275 200 / 475 430 / 430 Output, Residual Other: Urine Color Straw Yellow Yellow Urine Appearance Cloudy Clear Clear Urine Odor Normal Normal Normal Comment point void in brief and urinal Patient used urinal ind. in bed. Data Completed and Pending Labs on day of discharge: Labs from last 24 hours 09/14/24 06:05 WBC 9.59 RBC 3.32 L Hgb 10.8 L Hct 34.4 L MCV 104 H MCH 32.5 MCHC 31.4 L RDW 12.9 Plt Count 331 MPV 10.2 Sodium 147 H Potassium 4.0 Chloride 107 Carbon Dioxide 32.1 H Anion Gap 7.9 BUN 32 H Creatinine 0.7 Est GFR (CKD-EPI 2020) 94.31 Glucose 115 H Calcium 8.4 L Magnesium 2.5 Total Bilirubin 0.3 AST 57 H ALT 48 Alkaline Phosphatase 183 H Total Protein 6.4 Albumin 2.1 L Random Vancomycin 11.9 Preliminary micro results at discharge 09/12/24 22:30 Urine Culture - Preliminary Urine - Reflex from Ua Gram positive vidhi, mixed 09/12/24 18:37 Blood Culture - Preliminary Blood NO GROWTH 24 HOURS 09/12/24 18:20 Blood Culture - Preliminary Blood NO GROWTH 24 HOURS PFSH All Active Problems (Updated 09/14/24 @ 10:06 by Isha Mayo NP) Dyspnea (Acute) Iron deficiency anemia (Chronic) GERD (gastroesophageal reflux disease) (Chronic) Acute hypoxic respiratory failure (Acute) HCAP (healthcare-associated pneumonia) (Acute) Laceration of scalp (Acute) Right subclavian artery occlusion (Acute) Leg pain (Acute) Tracheostomy in place (Acute) Occlusion of celiac artery (Acute) Urinary tract infection (Acute) Foreign body sensation, throat (Acute) Right clavicle fracture (Acute 08/30/23) Syncope (Chronic) Ground glass opacity present on imaging of lung (Acute) Subdural hematoma (Acute) Pulmonary edema (Acute) Fracture of thumb, left, closed (Acute) Acute non-ST elevation myocardial infarction (NSTEMI) (Acute) Arm pain (Acute) Hemoptysis (Acute) Nausea & vomiting (Acute) Regurgitation of food (Acute) Pulmonary embolism (Chronic) Uses feeding tube (Acute) Gross hematuria (Acute) Ambulatory dysfunction (Acute) Leukocytosis (leucocytosis) (Acute) UTI (urinary tract infection) (Acute) Multiple subsegmental pulmonary emboli without acute cor pulmonale (Acute) C1 cervical fracture (Acute) Gastrostomy tube dysfunction (Acute) Encounter for hospice care discussion (Acute) Unintentional weight loss of 10% body weight within 6 months (Acute) Dysuria (Acute) Malfunctioning jejunostomy tube (Acute) Need for follow-up by executive secretary social welfare (Acute) Dysphagia (Acute) Impaired instrumental activities of daily living (Acute) Plantar fascial fibromatosis (Acute) Feeding tube dysfunction (Acute) Sensorineural hearing loss (SNHL) of both ears (Acute) Otalgia of right ear (Acute) Neck pain on right side (Acute) Neck pain on right side (Acute) Full code status (Acute) Need for home health care (Acute) MRSA pneumonia (Acute) pt likely colonized Occlusion of right vertebral artery (Acute) Hypoxemia (Acute) Complication of feeding tube (Acute) Peripheral neuropathy (Acute 02/21/15) PAOD (peripheral arterial occlusive disease) (Acute) Laryngeal cancer (Chronic) COPD (chronic obstructive pulmonary disease) (Chronic) 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 (Acute) Compression fracture of thoracolumbar vertebra (Acute) Dependence on supplemental oxygen (Chronic) Medical History On deep vein thrombosis (DVT) prophylaxis Recurrent syncope Laceration of occipital region of scalp Fall Orthostatic hypotension Palliative care patient Caregiver stress Advance care planning Weakness G tube feedings 20F 3.0cm 11/30/22. Routine change every 4 months. History of laryngeal cancer Chronic respiratory failure with hypoxia Pneumonia Shortness of breath Complication of feeding tube Hematoma following procedure Blockage of feeding tube Dyspnea on exertion Neurotrophic cornea of left eye Left corneal scar with opacity Cortical cataract of right eye Nuclear sclerotic cataract of right eye Posterior subcapsular age-related cataract, right eye Feeding tube dysfunction CAD (coronary artery disease) Sessile colonic polyp 12/22/16-SESSILE SERRATED ADENOMA Restless leg syndrome (02/21/15) Pulmonary nodule, right (05/30/15) on chest CT -2015: stable Primary malignant neoplasm of oropharynx ; yearly fup in Feb (last ) [facility] [place] SX: 2007 ROR: 2000 + 2007 Impingement syndrome, shoulder, left (10/10/16) -2017: PT sugg. 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 Hypertension Tobacco use COPD (chronic obstructive pulmonary disease) Post herpetic neuralgia Hypothyroidism Hyperlipemia Depression Anxiety Conjunctivitis, chronic Surgical History S/P AAA (abdominal aortic aneurysm) repair Status post laryngectomy History of esophagogastroduodenoscopy (EGD) (~08/10/19) Daron Casper APRN @ [facility] [place]: hiatal hernia, GERD, Reyes's esophagitis, neuromuscular dysfunction History of laryngectomy Status post cardiac catheterization Status post cataract extraction and insertion of intraocular lens of right eye (07/12/18) History of tarsorrhaphy Status post cataract extraction and insertion of intraocular lens of left eye (04/30/12) 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) Sin-mullins button placed by Dr Elia Mcdonald, [facility] PROCEDURES RT/LEFT HEART CARD CATH COMPLETE LARYNGECTOMY Esophagoplasty EGD - MAC (07/06/17) Colonoscopy - MAC (12/22/16) History of radical laryngectomy Family History Nephew Throat cancer Maternal Cousin Cancer Social History Smoking/Tobacco Use Status: Former Tobacco Use Quit Date: 04/23/13 Tobacco: How many years used: 20 Smoking risk assessment performed?: Yes Alcohol Intake: never Drug use: Never Substance use type: does not use Housing: fpc Current gender identity: male Do you feel safe at home: Yes Do you feel safe in your relationship?: Yes Additional Social history: Lives with partner/caregiver Kiara caraballo [facility] Time Spent with Patient Time Spent with Patient: <45 minutes Time was spent: preparing to see the patient(eg.review tests), obtaining and/or reviewing separately otained hiistory, ordering medications,tests, procedures, referring, communicating with other health personal care worker, indepentently interpreting results, counseling the patient and care coordination
--- NOTE | 2024-09-14 14:25 | PDOC.CMDIS ---
Date of service: 09/14/24 Time of Service: 14:25 LACE Index Scoring Tool Questions: Length of Stay (in days): 2 Was the patient admitted via the E.D.?: Yes Comorbidities: Previous M.I., Chronic Pulmonary Disease and Any Tumor E.D. Visits: 10 Answers: Total Score: 14 Risk of Readmission: High Risk Care Management Discharge Plan Reason for Hospitalization: Pneumonia Discharge Plan: Pineda will be transferred back to [facility] to resume his short term rehab prior to returning home. He will follow up with the facility provider and plan of care and transport via EMS. Patient/Family Education Needs: Expectations and limitations Services Needed at Discharge: [facility] Facility SDOH Health Related Social Needs: No Data to Display
== END 2024-09-14 15:05 | disposition skilled nursing facility (03) | DRG 193 ==
LOC: ER 18:30 → MS 21:51
PROVIDERS: Admitting Provider Family Medicine; Emergency Provider Emergency Medicine; PCP Physician Assistant Medical; Responsible Provider Family Medicine; Visit Provider Family Medicine
DX: J18.9 Pneumonia, unspecified organism (principal); J96.01 Acute respiratory failure with hypoxia; N13.8 Other obstructive and reflux uropathy; E87.0 Hyperosmolality and hypernatremia; R64 Cachexia; Z68.1 Body mass index [BMI] 19.9 or less, adult; J44.0 Chronic obstructive pulmonary disease with (acute) lower respiratory infection; I25.10 Atherosclerotic heart disease of native coronary artery without angina pectoris; E03.9 Hypothyroidism, unspecified; E78.5 Hyperlipidemia, unspecified; G25.81 Restless legs syndrome; N40.1 Benign prostatic hyperplasia with lower urinary tract symptoms; K21.9 Gastro-esophageal reflux disease without esophagitis; D50.8 Other iron deficiency anemias; F32.A Depression, unspecified; R53.1 Weakness; R29.6 Repeated falls; E86.0 Dehydration; Z66 Do not resuscitate; Z93.1 Gastrostomy status; Z79.899 Other long term (current) drug therapy; D50.9 Iron deficiency anemia, unspecified; Z93.0 Tracheostomy status; I70.8 Atherosclerosis of other arteries; I25.2 Old myocardial infarction; Z86.711 Personal history of pulmonary embolism; H90.3 Sensorineural hearing loss, bilateral; Z22.322 Carrier or suspected carrier of Methicillin resistant Staphylococcus aureus; R13.10 Dysphagia, unspecified; Z90.02 Acquired absence of larynx; Z99.81 Dependence on supplemental oxygen; Z85.21 Personal history of malignant neoplasm of larynx; G62.1 Alcoholic polyneuropathy; F41.9 Anxiety disorder, unspecified; Z87.891 Personal history of nicotine dependence; R49.1 Aphonia; Z95.828 Presence of other vascular implants and grafts; Y95 Nosocomial condition; R56.9 Unspecified convulsions; S06.5XAS Traumatic subdural hemorrhage with loss of consciousness status unknown, sequela
CPT/HCPCS: 00123; 36415; 80053; 84145; 85027; 87040; 87637; 93005; 94640; 96365; 96367; 96375; 99285; J1650; 71046; 80202; 81003; 81015; 83735; 83880; 84439; 84443; 84484; 85025; 85610; 85730; 87086; 93010; 94760; 99223; 99233; 99239; J0131; J0692; J1941; J2270; J2543; J3370; J3372; J7613; J7620

== ENCOUNTER 2024-09-18 00:38 | Inpatient (IN) | payer MEDICARE, MEDICAID, SELFPAY ==
[2024-09-18] VITALS (82 sets, daily range): BP systolic 76–172; BP diastolic 37–73; PULSE 63–120; RESP 3–26; TEMP 36.6–36.7; O2SAT 67–100
--- NOTE | 2024-09-18 01:00 | RT.EKG_ITS ---
APPROVED REPORT Exam: Resting ECG Reason for Exam: desaturation Patient Location: E HR:71 bpm ECG Measurements Heart Rate 71 AXIS NH 194 P 61 QRSd 161 QRS 78 QT 455 T -43 QTc 492 Conclusion Sinus rhythm...normal P axis, V-rate 60- 99 Ventricular premature complex...V complex w/ short R-R interval Probable left atrial enlargement...P >50mS, <-0.10mV V1 Right bundle branch block...QRSd>120, terminal axis(90,270) Some new ST changes in V2, V3, V4 which may be related to lead placement, otherwise no change from
--- NOTE | 2024-09-18 01:00 | DI.RAD_ITS ---
Exam(s) XR PORTABLE CHEST AP EXAM: XR PORTABLE CHEST AP CLINICAL HISTORY: desaturation TECHNIQUE: 2D digital imaging was performed of the chest. One image was obtained. An AP view was ob tained. COMPARISON: CT CT CHEST/ABD/PEL W from 08/31/2024 CR XR CHEST 2V PA LATERAL from 09/12/2024 FINDINGS: Examination is limited by patient positioning and poor inspiration. MEDIASTINUM: Normal. HEART: Mild cardiomegaly. Configuration of the heart is similar to the CT scan of the chest from 08/13. No pericardial effusion is present on the prior CT examination. PULMONARY VASCULATURE: There is again seen tortuosity of the thoracic aorta. LUNGS: Diffuse bilateral pulmonary opacities are present. PLEURAL SPACE: No pleural effusion or pneumothorax. BONE:Within normal limits for the patient's age. There is a chronic deformity of the distal right cla vicle. OTHER FINDINGS:There again seen findings of a stent in the descending thoracic aorta and proximal abd ominal aorta. There is a tracheostomy tube in place. There are surgical clips seen in the soft tiss ues of the neck. IMPRESSION: Diffuse bilateral pulmonary opacities. Differential considerations include pneumonia versus pulmonar y edema. Please correlate clinically. DATA REPOSITORY: RADIATION DOSE DELIVERED:
--- NOTE | 2024-09-18 01:29 | W.ED.GENAD ---
Discharge Plan Disposition Patient Disposition: Admit to [facility] Condition: Serious Discharge Details Clinical Impression: Non-ST elevation IA (NSTEMI), Pulmonary edema cardiac cause, Acute hypoxic respiratory failure Primary Care Provider: Nazia Chan ED Provider: Emanuel Ramirez [facility] and New Rx's Prescriptions: No Action acetaminophen [Tylenol Extra Strength] 500 mg tablet 1,000 mg PO BID PRN tamsulosin [Flomax] 0.4 mg capsule 0.4 mg PO DAILY Qty: 90 3RF finasteride 5 mg tablet 5 mg PO DAILY Qty: 90 3RF morphine concentrate 100 mg/5 mL (20 mg/mL) solution 5 mg PO Q1H PRN MDD 480 mg PRN (Reason: dyspnea) Qty: 15 0RF morphine concentrate 100 mg/5 mL (20 mg/mL) solution 20 mg PO Q1-4H MDD 480 PRN (Reason: pain) Qty: 30 0RF Rx Instructions: 20mg for pain omeprazole 20 mg capsule,delayed release(DR/EC) 20 mg feeding tube BID Qty: 90 4RF acetylcysteine 100 mg/mL (10 %) solution 4 ml inhalation BID metoprolol succinate 25 mg tablet extended release 24 hr 25 mg PO DAILY rosuvastatin 40 mg tablet 40 mg feeding tube HS Qty: 90 4RF polyethylene glycol 3350 [Miralax] 17 gram/dose powder 17 g PO DAILY PRN (Reason: constipation) Rx Instructions: 06/19/22 instructed by PCP to take 1/2 cap daily, may reduce to half cap three times per week if daily is too much nystatin 100,000 unit/gram powder 1 applic topical BID Qty: 60 12RF sulfamethoxazole-trimethoprim 200-40 mg/5 mL suspension 5 ml PO BID 28 Days Qty: 280 6RF acetylcysteine 600 mg capsule See Rx Instructions .ROUTE .COMPLEX Qty: 60 12RF Dose Instruction: TAKE ONE CAPSULE BY MOUTH TWICE A DAY Rx Instructions: TAKE ONE CAPSULE BY MOUTH TWICE A DAY melatonin 3 MG tablet 3 mg PO HS levetiracetam 500 mg tablet 500 mg PO BID Patient Comments: TAKE ONE TABLET BY MOUTH TWICE A DAY ipratropium-albuterol 0.5 mg-3 mg(2.5 mg base)/3 mL solution for nebulization 3 ml IN BID Rx Instructions: increased dose/use treatment 4 times/day as needed NOT SENT levothyroxine 88 mcg tablet 88 mcg PO DAILY Patient Comments: TAKE ONE TABLET BY MOUTH EVERY DAY sertraline 100 mg tablet 100 mg PO DAILY Patient Comments: TAKE ONE TABLET BY MOUTH EVERY DAY ropinirole 1 mg tablet 0.5 mg PO BID Qty: 0 0RF levofloxacin 750 mg tablet 750 mg PO DAILY Qty: 7 0RF lorazepam [Ativan] 0.5 mg tablet 0.5 mg PO Q6H PRN atropine sulfate (PF) 1 % drops 1 drp ophthalmic (eye) Q4H PRN PRN Rx Instructions: Give 1 drop sublingually every 4 hours needed for increased secretions ferrous sulfate [Feosol] 325 mg (65 mg iron) tablet 325 mg PO DAILY Align Jr 10.5 mg (10 million cell) tablet,chewable 10.5 mg PO DAILY aspirin [Children's Aspirin] 81 mg Tablet,Chewable 81 mg CH DAILY Qty: 30 0RF sodium chloride 0.9 % Solution For Nebulization 3 ml UPD BID Qty: 0 0RF gabapentin 300 mg capsule 600 mg PO TID Qty: 360 3RF HPI General Mode of arrival: EMS. Date/Time Provider Initiated Documentation: 09/18/24 01:08. Limitations to Documentation: no limitations. Information obtained by: EMS and old records reviewed. HPI Narrative: Patient is sent in from the [facility] the road for altered mental status and low oxygen saturations. Patient just discharged from this hospital on the second back to [facility] on Levaquin for presumed pneumonia. EMS activated after staff found the patient to be altered, lethargic, saturations into the 60s. EMS did attempt suctioning. Patient is minimally responsive, does localize pain. I received a call from EMS prior to transport. I reviewed the patient's last hospitalization as well as his advanced directives and COLST form. I reached out to his healthcare proxy, Kiara Lim to confirm what is documented in his chart here and what her understanding of everything is. Related Data Home Medications ?Medication ?Instructions ?Recorded ?Confirmed omeprazole 20 mg capsule,delayed 20 mg feeding tube BID #90 caps 10/05/19 09/18/24 release melatonin 3 mg tablet 3 mg PO HS 10/29/19 09/18/24 rosuvastatin 40 mg tablet 40 mg feeding tube HS #90 tabs 12/14/19 09/18/24 acetylcysteine 100 mg/mL (10 %) 4 ml inhalation BID 07/05/20 09/18/24 solution acetaminophen 500 mg tablet 1,000 mg PO BID PRN 03/05/22 09/18/24 (Tylenol Extra Strength) polyethylene glycol 3350 17 17 g PO DAILY PRN constipation 06/19/22 09/18/24 gram/dose oral powder (Miralax) nystatin 100,000 unit/gram topical 1 applic topical BID #60 grams 02/19/23 09/18/24 powder metoprolol succinate 25 mg 25 mg PO DAILY 09/02/23 09/18/24 tablet,extended release 24 hr levetiracetam 500 mg tablet 500 mg PO BID 02/17/24 09/18/24 finasteride 5 mg tablet 5 mg PO DAILY #90 tabs 03/02/24 09/18/24 tamsulosin 0.4 mg capsule (Flomax) 0.4 mg PO DAILY #90 caps 03/02/24 09/18/24 Bifidobacterium infantis 10.5 mg 10.5 mg PO DAILY 03/13/24 09/18/24 (10 million cell) chewable tablet (Align Jr) ferrous sulfate 325 mg (65 mg 325 mg PO DAILY 03/13/24 09/18/24 iron) tablet (Feosol) sulfamethoxazole 200 5 ml PO BID 28 days #280 mL 03/29/24 09/18/24 mg-trimethoprim 40 mg/5 mL oral suspension ipratropium 0.5 mg-albuterol 3 mg 3 ml IN BID shortness of breath or 08/03/24 09/18/24 (2.5 mg base)/3 mL nebulization wheezing soln acetylcysteine 600 mg capsule See Rx Instructions .Route 08/08/24 09/18/24 .COMPLEX #60 caps levothyroxine 88 mcg tablet 88 mcg PO DAILY 08/16/24 09/18/24 sertraline 100 mg tablet 100 mg PO DAILY 08/16/24 09/18/24 ropinirole 1 mg tablet 0.5 mg (1/2 x 1 mg) PO BID #0 tabs 08/17/24 09/18/24 aspirin 81 mg chewable tablet 81 mg CH DAILY #30 tabs 08/30/24 09/18/24 (Children's Aspirin) gabapentin 300 mg capsule 600 mg (2 x 300 mg) PO TID #360 09/06/24 09/18/24 caps sodium chloride 0.9 % for 3 ml UPD BID #0 mL 09/06/24 09/18/24 nebulization levofloxacin 750 mg tablet 750 mg PO DAILY #7 tabs 09/14/24 09/18/24 morphine concentrate 100 mg/5 mL 5 mg (0.25 mL) PO Q1H PRN PRN 09/14/24 09/18/24 (20 mg/mL) oral solution dyspnea #15 mL morphine concentrate 100 mg/5 mL 20 mg PO Q1-4H PRN pain #30 mL 09/14/24 09/18/24 (20 mg/mL) oral solution atropine sulfate (PF) 1 % eye drops 1 drp ophthalmic (eye) Q4H PRN PRN 09/18/24 09/18/24 lorazepam 0.5 mg tablet (Ativan) 0.5 mg PO Q6H PRN 09/18/24 09/18/24 Previous Rx's ?Medication ?Instructions ?Recorded omeprazole 20 mg capsule,delayed 20 mg feeding tube BID #90 caps 10/05/19 release rosuvastatin 40 mg tablet 40 mg feeding tube HS #90 tabs 12/14/19 nystatin 100,000 unit/gram topical 1 applic topical BID #60 grams 02/19/23 powder finasteride 5 mg tablet 5 mg PO DAILY #90 tabs 03/02/24 tamsulosin 0.4 mg capsule (Flomax) 0.4 mg PO DAILY #90 caps 03/02/24 sulfamethoxazole 200 5 ml PO BID 28 days #280 mL 03/29/24 mg-trimethoprim 40 mg/5 mL oral suspension acetylcysteine 600 mg capsule See Rx Instructions .Route 08/08/24 .COMPLEX #60 caps ropinirole 1 mg tablet 0.5 mg (1/2 x 1 mg) PO BID #0 tabs 08/17/24 aspirin 81 mg chewable tablet 81 mg CH DAILY #30 tabs 08/30/24 (Children's Aspirin) gabapentin 300 mg capsule 600 mg (2 x 300 mg) PO TID #360 09/06/24 caps sodium chloride 0.9 % for 3 ml UPD BID #0 mL 09/06/24 nebulization levofloxacin 750 mg tablet 750 mg PO DAILY #7 tabs 09/14/24 morphine concentrate 100 mg/5 mL 5 mg (0.25 mL) PO Q1H PRN PRN 09/14/24 (20 mg/mL) oral solution dyspnea #15 mL morphine concentrate 100 mg/5 mL 20 mg PO Q1-4H PRN pain #30 mL 09/14/24 (20 mg/mL) oral solution Allergies Allergy/AdvReac Type Severity Reaction Status Date / Time pollen extracts Allergy Mild Wheezing Verified 09/18/24 01:11 Tetracyclines Allergy Unknown SKIN RASH Verified 09/18/24 01:11 General Stated Complaint: RespSymp CHER: 2 Exam Narrative Exam Narrative: Const: Thin elderly male responsive to noxious stimuli. VS per triage. HEENT: NC/AT. Normal facial exam. Neck: Tracheostomy patent Lungs: Normal respiratory effort. Lungs are diminished and rhonchorous throughout. Cor: RRR without murmur. Good radial pulses. GI: Soft/ND/NT. Neuro: HERRERA x4 Ext: No C/C/E. Course Vital Signs Vital signs: Vital Signs Temperature 98.0 F 09/18/24 00:39 Pulse 88 09/18/24 00:39 Respiratory Rate 9 L 09/18/24 00:39 Blood Pressure 76/50 L 09/18/24 00:39 Pulse Oximetry 67 L 09/18/24 00:39 Temperature 98.0 F 09/18/24 00:39 Temperature Source Skin 09/18/24 00:39 Pulse 88 09/18/24 00:39 Respiratory Rate 9 L 09/18/24 00:39 Respiratory Effort Short of Breath, Incrsd Work of Breathing 09/18/24 00:43 Respiratory Depth Shallow 09/18/24 00:43 Blood Pressure 76/50 L 09/18/24 00:39 Pulse Oximetry 67 L 09/18/24 00:39 Oxygen Delivery Method Trach Collar 09/18/24 00:39 Oxygen Flow Rate 10 09/18/24 00:39 Medical Decision Making Patient returning to ED from [facility] now with altered mental status/unresponsiveness and hypoxemia. I called and spoke to his healthcare proxy prior to patient arriving. She states that patient is confirmed DNR but was okay with a trial of ventilation if needed short-term as well as fluids and antibiotics. Otherwise, defer any invasive procedures if possible. This does correspond with the last palliative care note available to review. Therefore, on arrival given patient's unresponsiveness with low oxygenation and #6 ET tube was placed through his tracheostomy hole and balloon inflated. He was then bagged up to oxygen saturations in the 90s. Subsequently, after the arrival of respiratory the ET tube was removed and a #8 trach tube was placed by me without difficulty and the balloon blown up. Patient also given 500 mL of fluid bolus. Patient placed on ventilator initially on CMV but subsequently SIMV which he seemed to be tolerating. An EKG, portable chest x-ray and labs were obtained. Patient's EKG is sinus rhythm with right bundle branch block. There appears to be some ST changes in V2, V3, V4 without reciprocal change elsewhere in may be related to lead positioning. If portable chest x-ray essentially shows bilateral whiteout/fluffy infiltrates consistent with pneumonitis or possibly fluid and edema. It is much worse than his chest x-ray from September 12. He is on Levaquin. He was changed to IV Zosyn and IV vancomycin for the time being. Laboratory studies show an elevated white count of 15.8. Hemoglobin relatively stable at 10. VBG with a pH 7.35 and a pCO2 of 58. Kidney function has gone up with a BUN of 72 and a creatinine 1.3. His baseline is 32/0.7. Sodium and chloride elevated suggesting dehydration. His initial troponin came back elevated at 886. I have added on a BNP. Will obtain a repeat troponin. Unclear whether this is demand from being unresponsive and hypoxemic for period of time versus a true NSTEMI. Of note he is more awake after being placed on vent with trach tube in place as well as with 500 of fluid. 04:15 - Patient's BNP is markedly elevated greater than 20,000. Second troponin has continued to rise now over thousand. I have spoke to Kiara a few more times now. There will be no escalation of care at this point. He has chronic subdural hematomas and cannot be anticoagulated. He made it clear that he did not wish to be transferred to any higher level of care. We will leave him on the ventilator and I will place him in the ICU so that Kiara may get in contact with his nephew and her daughter. They will come in early this morning and at that point we will probably move to make him [employer]/hospice. She feels that he has been suffering significantly since being discharged back to the [facility]. Given evidence of the NSTEMI and pulmonary edema I think this is the appropriate course of action given his physical and medical state as well as his previously made known wishes. Medical Records Medical records reviewed: Yes I reviewed the patient's medical records. Imaging Data Radiologic Study: Attestation: I personally reviewed and interpreted this imaging study as follows: Imaging: X-Ray My impression: see [facility] Lab Data Lab results reviewed: Yes I reviewed the patient's lab results. Lab results narrative: see [facility] ECG Data Attestation: I personally reviewed and interpreted this ECG (s) as follows: Prior ECG tracings: available for review Interpretation: see EKG/[facility] Critical Care Time Critical Care Time Critical Care Time: Yes Total Critical Care Time: 45 Attestation: Upon my evaluation, this patient had a high probability of imminent or life-threatening deterioration, which required my direct attention, intervention, and personal management. I have personally provided 45 minutes of critical care time exclusive of time spent on separately billable procedures. Time includes monitoring for potential decompensation, ordering of tests and medications, review of laboratory and radiology results, discussion with consultants and documentation . Interventions were performed as documented above in procedures. [facility] All Active Problems (Updated 09/18/24 @ 04:19 by Emanuel Ramirez MD) Acute hypoxic respiratory failure (Acute) Pulmonary edema cardiac cause (Acute) Non-ST elevation IA (NSTEMI) (Acute) Iron deficiency anemia (Chronic) GERD (gastroesophageal reflux disease) (Chronic) Laceration of scalp (Acute) Right subclavian artery occlusion (Acute) Leg pain (Acute) Tracheostomy in place (Acute) Occlusion of celiac artery (Acute) Urinary tract infection (Acute) Foreign body sensation, throat (Acute) Right clavicle fracture (Acute 08/30/23) Syncope (Chronic) Ground glass opacity present on imaging of lung (Acute) Subdural hematoma (Acute) Pulmonary edema (Acute) Fracture of thumb, left, closed (Acute) Acute non-ST elevation myocardial infarction (NSTEMI) (Acute) Arm pain (Acute) Hemoptysis (Acute) Nausea & vomiting (Acute) Regurgitation of food (Acute) Pulmonary embolism (Chronic) Uses feeding tube (Acute) Gross hematuria (Acute) Ambulatory dysfunction (Acute) Leukocytosis (leucocytosis) (Acute) UTI (urinary tract infection) (Acute) Multiple subsegmental pulmonary emboli without acute cor pulmonale (Acute) C1 cervical fracture (Acute) Gastrostomy tube dysfunction (Acute) Encounter for hospice care discussion (Acute) Unintentional weight loss of 10% body weight within 6 months (Acute) Dysuria (Acute) Malfunctioning jejunostomy tube (Acute) Need for follow-up by social media content specialist (Acute) Dysphagia (Acute) Impaired instrumental activities of daily living (Acute) Plantar fascial fibromatosis (Acute) Feeding tube dysfunction (Acute) Sensorineural hearing loss (SNHL) of both ears (Acute) Otalgia of right ear (Acute) Neck pain on right side (Acute) Neck pain on right side (Acute) Full code status (Acute) Need for home health care (Acute) MRSA pneumonia (Acute) pt likely colonized Occlusion of right vertebral artery (Acute) Hypoxemia (Acute) Complication of feeding tube (Acute) Peripheral neuropathy (Acute 02/21/15) PAOD (peripheral arterial occlusive disease) (Acute) Laryngeal cancer (Chronic) COPD (chronic obstructive pulmonary disease) (Chronic) 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 (Acute) Compression fracture of thoracolumbar vertebra (Acute) Dependence on supplemental oxygen (Chronic) Medical History On deep vein thrombosis (DVT) prophylaxis Recurrent syncope Laceration of occipital region of scalp Fall Orthostatic hypotension Palliative care patient Caregiver stress Advance care planning Weakness G tube feedings 20F 3.0cm 11/30/22. Routine change every 4 months. 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 Hypertension Tobacco use COPD (chronic obstructive pulmonary disease) Post herpetic neuralgia Hypothyroidism Hyperlipemia Depression Anxiety Conjunctivitis, chronic Surgical History S/P AAA (abdominal aortic aneurysm) repair Status post laryngectomy History of esophagogastroduodenoscopy (EGD) (~08/10/19) Daron Casper APRN [place] [facility]: hiatal hernia, GERD, Reyes's esophagitis, neuromuscular dysfunction History of laryngectomy Status post cardiac catheterization Status post cataract extraction and insertion of intraocular lens of right eye (07/12/18) History of tarsorrhaphy Status post cataract extraction and insertion of intraocular lens of left eye (04/30/12) 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 PROCEDURES RT/LEFT HEART CARD CATH COMPLETE LARYNGECTOMY Esophagoplasty EGD - MAC (07/06/17) Colonoscopy - MAC (12/22/16) History of radical laryngectomy Family History Nephew Throat cancer Maternal Cousin Cancer Social History Smoking/Tobacco Use Status: Former Tobacco Use Quit Date: 04/23/13 Tobacco: How many years used: 20 Smoking risk assessment performed?: Yes Alcohol Intake: never Drug use: Never Substance use type: does not use Housing: snf Current gender identity: male Do you feel safe at home: Yes Do you feel safe in your relationship?: Yes Additional Social history: Lives with partner/caregiver Kiara lim in [place]
--- NOTE | 2024-09-18 01:34 | DI.VRAD_ITS ---
PROCEDURE INFORMATION: Exam: XR Chest Exam date and time: 09/18/2024 1:11 AM Age: 79 years old Clinical indication: Other: Desaturation TECHNIQUE: Imaging protocol: Radiologic exam of the chest. Views: 1 view. COMPARISON: CR XR CHEST 2V PA LATERAL 09/12/2024 5:58 PM FINDINGS: Tubes, catheters and devices: Tracheostomy cannula is noted. Distal thoracic aorta endograft is noted. Lungs: Bilateral diffuse patchy airspace disease which may represent a developing bilateral pneumonitis. Differential diagnosis would include pulmonary edema. Pleural spaces: No gross pleural effusion evident on the supine x-ray. Heart/Mediastinum: Moderate cardiac enlargement. Cardiac configuration with somewhat of a water bag appearance. This could represent a pericardial effusion. Bones/joints: Unremarkable. IMPRESSION: 1. Bilateral airspace opacification which may represent a diffuse pneumonitis or edema. 2. Mild cardiac enlargement. Somewhat of a water bag configuration. Can not exclude pericardial effusion. 3. Distal thoracic aorta endograft device. 4. Tracheostomy cannula in position.. Dictated and Authenticated by: Lester Brooks MD. Orderin James Castellanos MD
[2024-09-18 01:51] LABS: Abs Immature Grans 0.35 10^3/uL (0.0-0.06); Absolute Basophil Count 0.06 10^3/uL (0.0-0.2); Absolute Eosinophil Count 0.03 10^3/uL (0.0-0.7); Absolute Monocyte Count 1.09 10^3/uL (0.1-0.8); Basophils % 0.4 %; Eosinophils % 0.2 %; HCT 33.2 % (40.0-50.0); Immature Grans % 2.2 %; Lymphocytes % 5.3 %; MCH 32.7 pg (27.0-33.0); MCHC 30.1 % (32.0-36.0); MCV 109 fL (80-95); MPV 10.3 fL (8.0-11.0); Monocytes % 6.9 %; Nucleated RBC 0.5 % (0.0-0.3); Platelet Count 219 10^3/uL (130-400); RBC 3.06 10^6/uL (4.36-5.78); RDW 13.5 % (11.8-14.1); RDW-SD 53.1 fL; WBC 15.79 10^3/uL (4.4-10.8)
[2024-09-18 01:54] LABS: BE (Venous) 6 mmol/L (-2-3); HCO3 (Venous) 32 mmol/L (23-28); O2 Sat (Venous) 62 %; TCO2 (Venous) 30 mmol/L (24-29); pCO2 (Venous) 58 mmHg (41-51); pH (Venous) 7.35 (7.31-7.41); pO2 (Venous) 37 mmHg
[2024-09-18 02:00] LABS: Absolute Lymphocyte Count 0.84 10^3/uL (1.2-3.4); Absolute Neutrophil Count 13.42 10^3/uL (1.2-6.7)
[2024-09-18 02:01] LABS: Macrocytosis 2+
[2024-09-18 02:10] LABS: Anion Gap 3.1 mmol/L (3-11); BUN 72 mg/dL (7-18); CO2 33.9 mmol/L (21.0-32.0); CREATININE 1.3 mg/dL (0.70-1.30); Calcium 8.5 mg/dL (8.5-10.1); Chloride 109 mmol/L (98-107); Estimated GFR 56.23 (mL/min/1.73m2); Glucose 96 mg/dL (74-106); Potassium 4.6 mmol/L (3.5-5.1); Sodium 146 mmol/L (136-145)
[2024-09-18 02:23] LABS: Troponin I 886 ng/L (<or=76)
[2024-09-18 02:34] LABS: COVID-19 PCR Negative (Negative); Influenza A PCR Negative (Negative); Influenza B PCR Negative (Negative); RSV PCR Negative (Negative)
[2024-09-18] MEDS: VANCOMYCIN 1,300 MG in Normal Saline 500 ML 333.3333 MG IVPB (02:34)
[2024-09-18 02:38] LABS: Lab Add On Test DONE
[2024-09-18 02:38] LABS: Source Nasopharynx
[2024-09-18 03:58] LABS: Troponin I 1034 ng/L (<or=76)
--- NOTE | 2024-09-18 05:11 | HPE_ITS ---
Date of service: 09/18/24 Time of Service: 05:11 Assessment and Plan Assessment and plan (1) Acute hypoxic respiratory failure: Status: Acute Assessment and plan: The patient has a history of chronic respiratory failure and is brought in today due to AMS w/ hypoxia. He is currently on a trach and a Ventilator. His CXR shows diffuse opacities throughout the lung lujan. He was recently d/c d/t HCAP. Influenza/COVID/RSV negative. His troponin x2 is significantly elevated and is most likely d/t type 2 NSTEMI. His outlook seems poor but we will continue tx w/ IV ABX and Vent management and cont to monitor. -Cont w/ IV Vancomycin/Zosyn -Obtain BCx x2 -Very poor prognosis and outlook. Consider Comfort Care and await family in AM. (2) Non-ST elevation NM (NSTEMI): Status: Acute Assessment and plan: Suspect type 2 NSTEMI w/o any significant EKG abnormalities but he does have RBBB. He has a history of SDH from 01/2024 w/ repeat CT showing stability. Considering that he now has an acute NSTEMI the benefit of A/C w/ heparin is more beneficial than the concern for worsening SHD/bleed. -Start IV Heparin -Cont w/ ASA 81mg daily, Metoprolol Succinate 25mg daily and Crestor 40mg daily -Obtain Echo (3) Elevated brain natriuretic peptide (BNP) level: Status: Acute Assessment and plan: -Obtain Echo -Start diuresis w/ Lasix 40mg daily -Monitor I/O (4) RAIZA (acute kidney injury): Status: Acute Assessment and plan: RAIZA most likely due to pre-renal, acute respiraotry failure and type 2 NSTEMI -Hold off on IVF for RAIZA due to concerns for pulmonary edema -Re-evaluate Cr s/p diuresis History of Present Illness History of Present Illness Chief Complaint: Respiratory Distress Narrative: The patient is a 79 y/o C M w/ PMH subdural hematoma, hx of laryngeal cancer and chronic respiratory failure who was brought in due to hypoxia (60%) and altered mental status. He was recently discharged on 09/14 due to acute respiratory failure and healthcare associated pneumonia. On arrival to ER he was minimally responsive. On my evaluation, the patient is on a vent w/o any pressors and is minimally responsive. He is unable to give any history and there is no family at the bedside. Review of Systems Narrative: Unable to obtain a ROS as patient is unable to give any history PFSH All Active Problems (Updated 09/18/24 @ 06:03 by Abelardo Zamorano MD) RAIZA (acute kidney injury) (Acute) Elevated brain natriuretic peptide (BNP) level (Acute) Acute hypoxic respiratory failure (Acute) Pulmonary edema cardiac cause (Acute) Non-ST elevation NM (NSTEMI) (Acute) Iron deficiency anemia (Chronic) GERD (gastroesophageal reflux disease) (Chronic) Laceration of scalp (Acute) Right subclavian artery occlusion (Acute) Leg pain (Acute) Tracheostomy in place (Acute) Occlusion of celiac artery (Acute) Urinary tract infection (Acute) Foreign body sensation, throat (Acute) Right clavicle fracture (Acute 08/30/23) Syncope (Chronic) Ground glass opacity present on imaging of lung (Acute) Subdural hematoma (Acute) Pulmonary edema (Acute) Fracture of thumb, left, closed (Acute) Acute non-ST elevation myocardial infarction (NSTEMI) (Acute) Arm pain (Acute) Hemoptysis (Acute) Nausea & vomiting (Acute) Regurgitation of food (Acute) Pulmonary embolism (Chronic) Uses feeding tube (Acute) Gross hematuria (Acute) Ambulatory dysfunction (Acute) Leukocytosis (leucocytosis) (Acute) UTI (urinary tract infection) (Acute) Multiple subsegmental pulmonary emboli without acute cor pulmonale (Acute) C1 cervical fracture (Acute) Gastrostomy tube dysfunction (Acute) Encounter for hospice care discussion (Acute) Unintentional weight loss of 10% body weight within 6 months (Acute) Dysuria (Acute) Malfunctioning jejunostomy tube (Acute) Need for follow-up by older adult social work specialist (Acute) Dysphagia (Acute) Impaired instrumental activities of daily living (Acute) Plantar fascial fibromatosis (Acute) Feeding tube dysfunction (Acute) Sensorineural hearing loss (SNHL) of both ears (Acute) Otalgia of right ear (Acute) Neck pain on right side (Acute) Neck pain on right side (Acute) Full code status (Acute) Need for home health care (Acute) MRSA pneumonia (Acute) pt likely colonized Occlusion of right vertebral artery (Acute) Hypoxemia (Acute) Complication of feeding tube (Acute) Peripheral neuropathy (Acute 02/21/15) PAOD (peripheral arterial occlusive disease) (Acute) Laryngeal cancer (Chronic) COPD (chronic obstructive pulmonary disease) (Chronic) 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 (Acute) Compression fracture of thoracolumbar vertebra (Acute) Dependence on supplemental oxygen (Chronic) Medical History On deep vein thrombosis (DVT) prophylaxis Recurrent syncope Laceration of occipital region of scalp Fall Orthostatic hypotension Palliative care patient Caregiver stress Advance care planning Weakness G tube feedings 20F 3.0cm 11/30/22. Routine change every 4 months. 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 Hypertension Tobacco use COPD (chronic obstructive pulmonary disease) Post herpetic neuralgia Hypothyroidism Hyperlipemia Depression Anxiety Conjunctivitis, chronic Surgical History S/P AAA (abdominal aortic aneurysm) repair Status post laryngectomy History of esophagogastroduodenoscopy (EGD) (~08/10/19) Daron Casper APRN [place] [facility] hiatal her[place], GERD, Reyes's esophagitis, neuromuscular dysfunction History of laryngectomy Status post cardiac catheterization Status post cataract extraction and insertion of intraocular lens of right eye (07/12/18) History of tarsorrhaphy Status post cataract extraction and insertion of intraocular lens of left eye (04/30/12) 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) Sin-mullins button placed by Dr Elia Mcdonald, [facility] PROCEDURES RT/LEFT HEART CARD CATH COMPLETE LARYNGECTOMY Esophagoplasty EGD - MAC (07/06/17) Colonoscopy - MAC (12/22/16) History of radical laryngectomy Family History Nephew Throat cancer Maternal Cousin Cancer Social History Smoking/Tobacco Use Status: Former Tobacco Use Quit Date: 04/23/13 Tobacco: How many years used: 20 Smoking risk assessment performed?: Yes Alcohol Intake: never Drug use: Never Substance use type: does not use Housing: group home Current gender identity: male Do you feel safe at home: Yes Do you feel safe in your relationship?: Yes Additional Social history: Lives with partner/caregiver Kiara caraballo in [facility] Allergies and Home Medications Allergies Allergy/AdvReac Type Severity Reaction Status Date / Time pollen extracts Allergy Mild Wheezing Verified 09/18/24 01:11 Tetracyclines Allergy Unknown SKIN RASH Verified 09/18/24 01:11 Home Medications ?Medication ?Instructions ?Recorded ?Confirmed ?Type omeprazole 20 mg capsule,delayed 20 mg feeding tube BID #90 caps 10/05/19 09/18/24 Rx release melatonin 3 mg tablet 3 mg PO HS 10/29/19 09/18/24 History rosuvastatin 40 mg tablet 40 mg feeding tube HS #90 tabs 12/14/19 09/18/24 Rx acetylcysteine 100 mg/mL (10 %) 4 ml inhalation BID 07/05/20 09/18/24 History solution acetaminophen 500 mg tablet 1,000 mg PO BID PRN 03/05/22 09/18/24 History (Tylenol Extra Strength) polyethylene glycol 3350 17 17 g PO DAILY PRN constipation 06/19/22 09/18/24 History gram/dose oral powder (Miralax) nystatin 100,000 unit/gram topical 1 applic topical BID #60 grams 02/19/23 09/18/24 Rx powder metoprolol succinate 25 mg 25 mg PO DAILY 09/02/23 09/18/24 History tablet,extended release 24 hr levetiracetam 500 mg tablet 500 mg PO BID 02/17/24 09/18/24 History finasteride 5 mg tablet 5 mg PO DAILY #90 tabs 03/02/24 09/18/24 Rx tamsulosin 0.4 mg capsule (Flomax) 0.4 mg PO DAILY #90 caps 03/02/24 09/18/24 Rx Bifidobacterium infantis 10.5 mg 10.5 mg PO DAILY 03/13/24 09/18/24 History (10 million cell) chewable tablet (Align Jr) ferrous sulfate 325 mg (65 mg 325 mg PO DAILY 03/13/24 09/18/24 History iron) tablet (Feosol) sulfamethoxazole 200 5 ml PO BID 28 days #280 mL 03/29/24 09/18/24 Rx mg-trimethoprim 40 mg/5 mL oral suspension ipratropium 0.5 mg-albuterol 3 mg 3 ml IN BID shortness of breath or 08/03/24 09/18/24 History (2.5 mg base)/3 mL nebulization wheezing soln acetylcysteine 600 mg capsule See Rx Instructions .Route 08/08/24 09/18/24 Rx .COMPLEX #60 caps levothyroxine 88 mcg tablet 88 mcg PO DAILY 08/16/24 09/18/24 History sertraline 100 mg tablet 100 mg PO DAILY 08/16/24 09/18/24 History ropinirole 1 mg tablet 0.5 mg (1/2 x 1 mg) PO BID #0 tabs 08/17/24 09/18/24 Rx aspirin 81 mg chewable tablet 81 mg CH DAILY #30 tabs 08/30/24 09/18/24 Rx (Children's Aspirin) gabapentin 300 mg capsule 600 mg (2 x 300 mg) PO TID #360 09/06/24 09/18/24 Rx caps sodium chloride 0.9 % for 3 ml UPD BID #0 mL 09/06/24 09/18/24 Rx nebulization levofloxacin 750 mg tablet 750 mg PO DAILY #7 tabs 09/14/24 09/18/24 Rx morphine concentrate 100 mg/5 mL 5 mg (0.25 mL) PO Q1H PRN PRN 09/14/24 09/18/24 Rx (20 mg/mL) oral solution dyspnea #15 mL morphine concentrate 100 mg/5 mL 20 mg PO Q1-4H PRN pain #30 mL 09/14/24 09/18/24 Rx (20 mg/mL) oral solution atropine sulfate (PF) 1 % eye drops 1 drp ophthalmic (eye) Q4H PRN PRN 09/18/24 09/18/24 History lorazepam 0.5 mg tablet (Ativan) 0.5 mg PO Q6H PRN 09/18/24 09/18/24 History Exam Const General: patient mechanically ventilated [facility] Head: normal to inspection Ears: hearing grossly normal bilaterally General nose exam: external nose normal Neck Other: Trach in place Resp Effort & Inspection: normal respiratory effort and not able to speak in complete sentences Auscultation: diminished lung sounds and rhonchi Cardio Rate: regular rate Rhythm: regular rhythm GI Inspection: normal to inspection Palpation: soft Other: PEG in place Skin General skin exam: no rashes or lesions noted Results Labs 09/18/24 01:46 09/18/24 01:46 Labs: Laboratory Results - last 24 hr 09/18/24 09/18/24 09/18/24 01:35 01:46 03:20 WBC 15.79 H RBC 3.06 L Hgb 10.0 L Hct 33.2 L MCV 109 H D MCH 32.7 MCHC 30.1 L RDW 13.5 Plt Count 219 MPV 10.3 Immature Gran % 2.2 Neutrophils % 85.0 Lymphocytes % 5.3 Monocytes % 6.9 Eosinophils % 0.2 Basophils % 0.4 Nucleated RBC % 0.5 H Absolute Neutrophils 13.42 H Absolute Lymphocytes 0.84 L Absolute Monocytes 1.09 H Absolute Eosinophils 0.03 Absolute Basophils 0.06 Macrocytosis 2+ VBG pH 7.35 VBG pCO2 58 H VBG pO2 37 VBG HCO3 32 H VBG Total CO2 30 H VBG O2 Saturation 62 VBG Base Excess 6 H Sodium 146 H Potassium 4.6 Chloride 109 H Carbon Dioxide 33.9 H Anion Gap 3.1 BUN 72 H Creatinine 1.3 Est GFR (CKD-EPI 2020) 56.23 Glucose 96 Calcium 8.5 Troponin I 886 H* 1034 H* NT-Pro-B Natriuret Pep 18285 H COVID-19 Source Nasopharynx SARS-CoV-2 (PCR) Negative Influenza Type A (PCR) Negative Influenza Type B (PCR) Negative RSV (PCR) Negative Add-On Test Request DONE Last Vital Signs Temp 36.7 C 09/18/24 00:39 Pulse 67 09/18/24 04:50 Resp 12 09/18/24 04:50 BP 129/45 L 09/18/24 04:46 Pulse Ox 97 09/18/24 04:50 Time Spent Time spent with Patient: 55-74 minutes Time was spent: preparing to see the patient(eg.review tests), ordering medications,tests, procedures, indepentently interpreting results and care coordination
[2024-09-18] MEDS: Sodium Chloride 0.9% for Inhalation 3 ML VIAL (07:33)
[2024-09-18] MEDS: Albuterol 2.5 MG/3 ML INH SOLN VIAL (07:33)
--- NOTE | 2024-09-18 08:08 | W.PC.ACHO ---
Registration Status: Primary Language: Preferred Language: ED Information & Data Chief Complaint RespSymp 09/18/24 01:34 Triage Note [facility]18[facility] 00:39 for resp distress. [facility] stated that his o2 was int he 40s. EMS states o2 in the 70s on 10L trach collar . DNR Medical / Surgical History (Last Reviewed 09/18/24 @ 02:53 by Emanuel Ramirez MD) On deep vein thrombosis (DVT) prophylaxis Recurrent syncope Laceration of occipital region of scalp Fall Orthostatic hypotension Palliative care patient Caregiver stress Advance care planning Weakness G tube feedings History of laryngeal cancer Chronic respiratory failure with hypoxia Pneumonia Shortness of breath Complication of feeding tube Hematoma following procedure Blockage of feeding tube Dyspnea on exertion Neurotrophic cornea of left eye Left corneal scar with opacity Cortical cataract of right eye Nuclear sclerotic cataract of right eye Posterior subcapsular age-related cataract, right eye Feeding tube dysfunction CAD (coronary artery disease) Sessile colonic polyp Pulmonary nodule, right (05/30/15) Primary malignant neoplasm of oropharynx Impingement syndrome, shoulder, left (10/10/16) History of tobacco use History of alcoholism Herpes zoster Aphonia Anxiety 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) Hypertension Tobacco use COPD (chronic obstructive pulmonary disease) Post herpetic neuralgia Hypothyroidism Hyperlipemia Depression Anxiety Conjunctivitis, chronic (Last Reviewed 09/18/24 @ 02:53 by Emanuel Ramirez MD) S/P AAA (abdominal aortic aneurysm) repair Status post laryngectomy History of esophagogastroduodenoscopy (EGD) (~08/10/19) History of laryngectomy Status post cardiac catheterization Status post cataract extraction and insertion of intraocular lens of right eye (07/12/18) History of tarsorrhaphy Status post cataract extraction and insertion of intraocular lens of left eye (04/30/12) 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) PROCEDURES EGD - MAC (07/06/17) Colonoscopy - MAC (12/22/16) History of radical laryngectomy Most Recent Vital Signs Temperature 36.7 C 09/18/24 07:20 Temperature Source Temporal Artery Scan 09/18/24 06:52 Pulse 81 09/18/24 07:50 Pulse 81 09/18/24 07:50 Respiratory Rate 16 09/18/24 07:50 Respiratory Effort Labored, Mechanically Ventilated, Incrsd Work of Breathing 09/18/24 06:52 Respiratory Depth Shallow 09/18/24 00:43 Respiratory Pattern Irregular 09/18/24 06:52 Blood Pressure 144/42 H 09/18/24 05:47 Blood Pressure Mean 50 09/18/24 05:47 Pulse Oximetry 100 09/18/24 07:50 Respiratory End-tidal CO2 53 09/18/24 05:30 Oxygen Delivery Method Mechanical Ventilator 09/18/24 06:52 Oxygen Flow Rate 0 09/18/24 06:52 Fraction of Inspired Oxygen (FIO2) 40 09/18/24 05:30 Comment trach vent 09/18/24 07:20 Allergies pollen extracts Allergy (Mild, Verified 09/18/24 01:11) Wheezing Tetracyclines Allergy (Unknown, Verified 09/18/24 01:11) SKIN RASH Precautions Isolation Standard precaution 09/18/24 00:42 IV IV Catheter Type [] Peripheral IV IV Catheter Type [Left Hand] Saline Lock IV Catheter Gauge [] 18 IV Catheter Gauge [Left Hand] 18 Diagnostics 09/18/24 09/18/24 09/18/24 Range/Units 05:52 03:20 01:46 WBC 15.79 H (4.4-10.8) 10^3/uL RBC 3.06 L (4.36-5.78) 10^6/uL Hgb 10.0 L (13.5-17.5) g/dL Hct 33.2 L (40.0-50.0) % MCV 109 H D (80-95) fL MCH 32.7 (27.0-33.0) pg MCHC 30.1 L (32.0-36.0) % RDW 13.5 (11.8-14.1) % Plt Count 219 (130-400) 10^3/uL MPV 10.3 (8.0-11.0) fL Immature Gran % 2.2 % Neutrophils % 85.0 % Lymphocytes % 5.3 % Monocytes % 6.9 % Eosinophils % 0.2 % Basophils % 0.4 % Nucleated RBC % 0.5 H (0.0-0.3) % Absolute Neutrophils 13.42 H (1.2-6.7) 10^3/uL Absolute Lymphocytes 0.84 L (1.2-3.4) 10^3/uL Absolute Monocytes 1.09 H (0.1-0.8) 10^3/uL Absolute Eosinophils 0.03 (0.0-0.7) 10^3/uL Absolute Basophils 0.06 (0.0-0.2) 10^3/uL Macrocytosis 2+ APTT Pending VBG pH 7.35 (7.31-7.41) VBG pCO2 58 H (41-51) mmHg VBG pO2 37 mmHg VBG HCO3 32 H (23-28) mmol/L VBG Total CO2 30 H (24-29) mmol/L VBG O2 Saturation 62 % VBG Base Excess 6 H (-2-3) mmol/L Sodium 146 H (136-145) mmol/L Potassium 4.6 (3.5-5.1) mmol/L Chloride 109 H (98-107) mmol/L Carbon Dioxide 33.9 H (21.0-32.0) mmol/L Anion Gap 3.1 (3-11) mmol/L BUN 72 H (7-18) mg/dL Creatinine 1.3 (0.70-1.30) mg/dL Est GFR (CKD-EPI 2020) 56.23 (mL/min/1.73m2) Glucose 96 (74-106) mg/dL Calcium 8.5 (8.5-10.1) mg/dL Troponin I 1034 H* 886 H* (<or=76) ng/L NT-Pro-B Natriuret Pep 73523 H (<300) pg/mL COVID-19 Source SARS-CoV-2 (PCR) (Negative) Influenza Type A (PCR) (Negative) Influenza Type B (PCR) (Negative) RSV (PCR) (Negative) Add-On Test Request DONE 09/18/24 Range/Units 01:35 WBC (4.4-10.8) 10^3/uL RBC (4.36-5.78) 10^6/uL Hgb (13.5-17.5) g/dL Hct (40.0-50.0) % MCV (80-95) fL MCH (27.0-33.0) pg MCHC (32.0-36.0) % RDW (11.8-14.1) % Plt Count (130-400) 10^3/uL MPV (8.0-11.0) fL Immature Gran % % Neutrophils % % Lymphocytes % % Monocytes % % Eosinophils % % Basophils % % Nucleated RBC % (0.0-0.3) % Absolute Neutrophils (1.2-6.7) 10^3/uL Absolute Lymphocytes (1.2-3.4) 10^3/uL Absolute Monocytes (0.1-0.8) 10^3/uL Absolute Eosinophils (0.0-0.7) 10^3/uL Absolute Basophils (0.0-0.2) 10^3/uL Macrocytosis APTT VBG pH (7.31-7.41) VBG pCO2 (41-51) mmHg VBG pO2 mmHg VBG HCO3 (23-28) mmol/L VBG Total CO2 (24-29) mmol/L VBG O2 Saturation % VBG Base Excess (-2-3) mmol/L Sodium (136-145) mmol/L Potassium (3.5-5.1) mmol/L Chloride (98-107) mmol/L Carbon Dioxide (21.0-32.0) mmol/L Anion Gap (3-11) mmol/L BUN (7-18) mg/dL Creatinine (0.70-1.30) mg/dL Est GFR (CKD-EPI 2020) (mL/min/1.73m2) Glucose (74-106) mg/dL Calcium (8.5-10.1) mg/dL Troponin I (<or=76) ng/L NT-Pro-B Natriuret Pep (<300) pg/mL COVID-19 Source Nasopharynx SARS-CoV-2 (PCR) Negative (Negative) Influenza Type A (PCR) Negative (Negative) Influenza Type B (PCR) Negative (Negative) RSV (PCR) Negative (Negative) Add-On Test Request 09/18/24 05:55 Blood Culture - Pending Blood 09/18/24 05:55 Blood Culture - Pending Blood Intake and Output - 24 Hour Total 09/18/24 00:06 thru 09/18/24 07:25 Intake Total 550 Output Total 200 Balance 350 Weight 64.229 kg Intake: IV 550 Output: Urine 200 Other: # Voids 3 Falls Risk Assessment History of Falls Previous History 09/18/24 00:44 Contributing Factors Confusion,Unstable, 09/18/24 00:44 Impairments Ambulatory Aids Uses ambulatory device 09/18/24 00:44 Tubes/Lines W/no contributing factors 09/18/24 00:44 Gait Evaluation W/any additional score 09/18/24 00:44 Cognition Cognitive impairment 09/18/24 00:44 Fall Total Score 84 09/18/24 00:44 Level of Risk Maximum Risk 09/18/24 00:44 Restraint Information Behavior Requiring Restraints/ Harm to Patient Seclusion Date of Initiation 09/18/24 Time Restraints were Initiated 07:20 Note pt trach intubated, cont to pull on trach and desat to 50. Problems (Last Reviewed 09/18/24 @ 02:53 by Emanuel Ramirez MD) RAIZA (acute kidney injury) (Acute) Elevated brain natriuretic peptide (BNP) level (Acute) Acute hypoxic respiratory failure (Acute) Non-ST elevation MN (NSTEMI) (Acute) v v v v v v v v v Sending and/or Receiving Nurses: Please use comment section below to note any information pertinent to the patient hand-off not included above. Information / Comments: Pt intubated through Trach, still intermittently desatting, lg amt suctioning required for thick secretions/plugs, becomes cyanotic. Pt is agitated, attempting to extubate self and pull feeding tube out, now in soft restraints but not sedated regardless of agitation and risk to self. Pending family arrival with plans to transition goals of care to comfort measures after family arrival. Pt is incontinent, 2-3 bed changes in ED, brief in place. Dependent edema and ecchymosis to left arm. G tube black & crusty. Note: COLST form from 09/05/2024 does state NO intubation and prefer not to be in ICU whereas older Advance Directives permit trialing intubation. Report received from: YOSELIN Short
[2024-09-18] MEDS: Furosemide 40 MG/4 ML VIAL IVP (09:30)
[2024-09-18] MEDS: HYDROmorphone 50 MG in Normal Saline 245 ML IV_INF (11:35)
[2024-09-18] MEDS: Scopolamine 1 MG/3 DAYS PATCH TD (11:42)
[2024-09-18] MEDS: Normal Saline Flush 10 ML SYR IVP (12:18)
[2024-09-18] MEDS: LORazepam 2 MG/ML VIAL 1 MG IVP ×2 (12:18→16:52)
--- NOTE | 2024-09-18 14:31 | W.PM.PROGNOT ---
Date of Service Date of service: 09/18/24 Time of Service: 10:00 Assessment and Plan Assessment and plan (1) Comfort measures only status: Status: Acute Assessment and plan: We had a family meeting with the Pineda's termite renewal inspector partner/caregiver/DPOA along with friends and family that know him well. He was not happy at SNF, suffering, QOL very poor. All agree he would not have wanted to live this way. Transitioning to POWERED BRIDGE SPECIALIST status, starting hydromorphone for air hunger (2) Acute hypoxic respiratory failure: Status: Acute Assessment and plan: The patient did not want to be on a ventilator per his most recent advanced directive. After discussion with family, POWERED BRIDGE SPECIALIST status, change to O2 for comfort. (3) Non-ST elevation CO (NSTEMI): Status: Acute Assessment and plan: Suspect type 2 NSTEMI related to respiratory failure. Possible new CHF with elevated BNP. He has not had this with respiratory failure recently. Given transition to POWERED BRIDGE SPECIALIST, stopping directed treatment including heparin. (4) RAIZA (acute kidney injury): Status: Acute Assessment and plan: RAIZA most likely due to pre-renal, acute respiraotry failure and type 2 NSTEMI. This is another sign of severity of illness Will discontinue monitoring. Subjective Subjective Patient reports: denies diarrhea, vomiting or fever Interval history since last seen: Patient unable to communicate verbal or writing board, opens eyes intermittently. On ventilator via tracheotomy. Exam Narrative Exam Narrative: Somnolent, opens eyes intermittently. Not responsive to questions. Moving air in bj lung lujan, rhonchi medially. CV: RRR, no murmur ABD: soft, g-tube in place Ext: cool, no cyanosis/clubbing/edema. Objective Last Vital Signs Temp 36.6 C 09/18/24 08:15 Pulse 79 09/18/24 12:01 Resp 14 09/18/24 12:01 BP 122/73 09/18/24 12:01 Pulse Ox 94 09/18/24 12:01 Laboratory Results - last 24 hr 09/18/24 09/18/24 09/18/24 01:35 01:46 03:20 WBC 15.79 H RBC 3.06 L Hgb 10.0 L Hct 33.2 L MCV 109 H D MCH 32.7 MCHC 30.1 L RDW 13.5 Plt Count 219 MPV 10.3 Immature Gran % 2.2 Neutrophils % 85.0 Lymphocytes % 5.3 Monocytes % 6.9 Eosinophils % 0.2 Basophils % 0.4 Nucleated RBC % 0.5 H Absolute Neutrophils 13.42 H Absolute Lymphocytes 0.84 L Absolute Monocytes 1.09 H Absolute Eosinophils 0.03 Absolute Basophils 0.06 Macrocytosis 2+ APTT VBG pH 7.35 VBG pCO2 58 H VBG pO2 37 VBG HCO3 32 H VBG Total CO2 30 H VBG O2 Saturation 62 VBG Base Excess 6 H Sodium 146 H Potassium 4.6 Chloride 109 H Carbon Dioxide 33.9 H Anion Gap 3.1 BUN 72 H Creatinine 1.3 Est GFR (CKD-EPI 2020) 56.23 Glucose 96 Calcium 8.5 Troponin I 886 H* 1034 H* NT-Pro-B Natriuret Pep 75871 H COVID-19 Source Nasopharynx SARS-CoV-2 (PCR) Negative Influenza Type A (PCR) Negative Influenza Type B (PCR) Negative RSV (PCR) Negative Add-On Test Request DONE 09/18/24 05:52 WBC RBC Hgb Hct MCV MCH MCHC RDW Plt Count MPV Immature Gran % Neutrophils % Lymphocytes % Monocytes % Eosinophils % Basophils % Nucleated RBC % Absolute Neutrophils Absolute Lymphocytes Absolute Monocytes Absolute Eosinophils Absolute Basophils Macrocytosis APTT Cancelled VBG pH VBG pCO2 VBG pO2 VBG HCO3 VBG Total CO2 VBG O2 Saturation VBG Base Excess Sodium Potassium Chloride Carbon Dioxide Anion Gap BUN Creatinine Est GFR (CKD-EPI 2020) Glucose Calcium Troponin I NT-Pro-B Natriuret Pep COVID-19 Source SARS-CoV-2 (PCR) Influenza Type A (PCR) Influenza Type B (PCR) RSV (PCR) Add-On Test Request Time Spent with Patient Time Spent with Patient: >50 minutes Time was spent: preparing to see the patient(eg.review tests), obtaining and/or reviewing separately otained hiistory, referring, communicating with other health complex care nurse, indepentently interpreting results, care coordination and other (family meeting)
[2024-09-19] MEDS: levETIRAcetam 500 MG TAB PO (08:11)
[2024-09-19] MEDS: Metoprolol CR 25 MG TABCR PO (08:11)
[2024-09-19] MEDS: Sertraline 100 MG TAB PO (08:11)
[2024-09-19] MEDS: LORazepam 2 MG/ML VIAL 1 MG IVP ×5 (08:12→17:26)
[2024-09-19] MEDS: Normal Saline Flush 10 ML SYR IVP ×2 (08:12→10:16)
--- NOTE | 2024-09-19 09:29 | PDOC.CMPRO ---
Date of service: 09/19/24 Time of Service: 09:29 Care Management Progress Note Progress Note Text Progress Note Text: Pineda was laying in bed and had with Kiara and his [id number] as company when CM met with him. He appeared to be sleeping, and looked comfortable. Kiara and giulia declined the need for anything. He is currently on MERCHANDISING DIRECTOR and appeared to be comfortable at this time. Discharge Plan: Anticipate Pineda will remain at [facility] for the remainder of his life. CM will continue to support and follow. Social Determinants of Health Screening Will the Patient Participate in the Screening?: Unable to obtain
--- NOTE | 2024-09-19 12:08 | PGE_ITS ---
Date of Service Date of service: 09/19/24 Time of Service: 12:25 Assessment and Plan Assessment and plan (1) Comfort measures only status: Status: Acute Assessment and plan: Family meeting 09/18 with the Pineda's bed bug exterminator partner/caregiver/DPOA along with friends and family that know him well. All agreed with transitioning to CREWMAN MAIN BATTLE TANK status. He has CREWMAN MAIN BATTLE TANK orders and appears comfortable Continue hydromorphone for air hunger continue minimal NG meds keppra, SSRI, metoprolol for symptom management Family has been present and supportive anticipate prognosis of hours to days Subjective Subjective Patient reports: denies diarrhea, vomiting or fever Interval history since last seen: events: CREWMAN MAIN BATTLE TANK status, transferred to floor after family meeting 09/19 Hydromorphone increased to 1mg/hr based on discomfort this morning Not responive. no concerns per family. Exam Narrative Exam Narrative: Somnolent, eyes closed, not responsive to questions or touch. breathing comfortably, breaths more spaced CV: RRR ABD: g-tube in place Ext: cool, slightly grety/cyanotic, no edema. no open wounds Objective Last Vital Signs Temp 36.6 C 09/18/24 08:15 Pulse 79 09/18/24 12:01 Resp 14 09/18/24 12:01 BP 122/73 09/18/24 12:01 Pulse Ox 90 L 09/18/24 15:16 Time Spent with Patient Time Spent with Patient: 25-34 minutes Time was spent: preparing to see the patient(eg.review tests), referring, communicating with other health career technical supervisor and care coordination
--- NOTE | 2024-09-19 12:42 | PHACLINREV_ITS ---
Pharmacy Admission Review Admission Clinical Review Admission Pharmacy Review: Comfort measures only status (Acute) RAIZA (acute kidney injury) (Acute) Elevated brain natriuretic peptide (BNP) level (Acute) Acute hypoxic respiratory failure (Acute) Non-ST elevation CT (NSTEMI) (Acute) pollen extracts Allergy (Mild, Verified 09/18/24 01:11) Wheezing Tetracyclines Allergy (Unknown, Verified 09/18/24 01:11) SKIN RASH Resuscitation Status DNR Height 5 ft 10 in Weight 64.229 kg Pharmacy Admission Review Renal Dosing Renal Dosing: BUN 72 mg/dL (7-18) H 09/18/24 01:46 Creatinine 1.3 mg/dL (0.70-1.30) 09/18/24 01:46 Medications needing adjustments: Reviewed (CrCl 42.54 mL/min) Anticoagulation Anticoagulation: Hgb 10.0 g/dL (13.5-17.5) L 09/18/24 01:46 Hct 33.2 % (40.0-50.0) L 09/18/24 01:46 Plt Count 219 10^3/uL (130-400) 09/18/24 01:46 Creatinine 1.3 mg/dL (0.70-1.30) 09/18/24 01:46 DVT Prophylaxis: N/A (OB/GYN PHYSICIAN) Opiate Usage Evaluate Pain Scale/Pains Meds: Reviewed (hydromorphone infusion @ 1mg/hr - last increased this morning at 0757) Relevant Labs Relevant Labs: Sodium 146 mmol/L (136-145) H 09/18/24 01:46 Potassium 4.6 mmol/L (3.5-5.1) 09/18/24 01:46 Chloride 109 mmol/L (98-107) H 09/18/24 01:46 Electrolytes, C-Reactive P, ESR: N/A (OB/GYN PHYSICIAN) Cardiac Review Cardiac Review: Troponin I 1034 ng/L (<or=76) H* 09/18/24 03:20 NT-Pro-B Natriuret Pep 65444 pg/mL (<300) H 09/18/24 01:46 BP, HR, EF%: Reviewed QTc Review QTc: Reviewed (492 from 09/18/24) IV to PO Switch IV Medications: Reviewed Home Meds Home Med List reviewed: Reviewed Current Meds Current Medication Order Review: Reviewed Comments: Per note from weekend pharmacist: provider okay with tablets being crushed if needed so orders left as tabs/caps Patient has received 4 doses of PRN 1mg lorazepam in the past 24 hours
[2024-09-19] MEDS: Ondansetron O.D.T. 4 MG TABEF NG (14:18)
[2024-09-19] MEDS: Acetaminophen 500 MG TAB NG (14:18)
[2024-09-19] MEDS: Refresh PLUS Eye Drops 0.4ml 2 EACH OU (14:18)
--- NOTE | 2024-09-19 14:19 | PCNE_ITS ---
Date of service: 09/19/24 Time of Service: 13:30 History of Present Illness Narrative: Mr. Sung is a 79 y/o M hospitalized at [facility] for end of life care 2/2 acute on chronic respiratory failure; PMHx sig for h/o laryngeal cancer s/p tacheostomy and PEG tube, COPD, chronic hypoxic respiratory failure on 6L of O2 via trach collar, mucuous plugging requiring bronchoscopy in the past, as well as h/o MRSA colonization, AAA s/p repair - present at bedside HCA/caregiver Kiara, her daughter Michelle, Pineda'ruth Sung presented to ED on 09/18 w/hypoxia, oxygen sats in the 60%s, minimally responsive. CXR w/diffuse opacities w/elevated triponins, thought to be type 2 NSTEMI, started on vanc/Zosyn; concerns w/poor prognosis; after conversation w/hospitalist yesterday w/transition to OFFICE SERVICES ASSOCIATE syle care, will remain in hospital through EOL Pain: on hydromorphone pump, now on 1mg/hr, increased this morning w/good effect, has only needed 1 bolus since increase, bolus rate 0.5mg q15m PRN Agitation/Anxiety: he was more restless, has required 3 doses of Ativan today; w/good effect; resting comfortably now, previously w/thrashing and pulling Urine: continues to make urine, wilson catheter placed yesterday, initial response w/1300CC output PO intake/nutrition: no oral intake, no longer being fed through G tube; receiving frequent oral care Resp: periods of apnea, up to 20s+ w/some Richie Mendez patterns earlier. does not appear to have dyspnea, no labored breathing. continues O2 mask over trach on 6L - hydromorphone pump started for dypsnea and pain Activity: increased periods of time w/eyes closed, has had a few times of opening eyes w/light engagement, not attempting to communicate regularly. Has continued Keppra, sertraline and metroprolol through this morning Family denies need for Color Maker Formulator today. Assessment and Plan Assessment and plan (1) Comfort measures only status: Status: Acute Assessment and plan: orders in place; will remain at [facility] through EOL - continue OFFICE SERVICES ASSOCIATE style care updated code status to DNR/I consider Color Maker Formulator visit tomorrow, family denies need today comfort cart in room (2) Tracheostomy in place: Status: Acute Assessment and plan: on 6L (3) Uses feeding tube: Status: Acute Assessment and plan: consider liquid meds as able, all meds through G tube PRN (4) COPD (chronic obstructive pulmonary disease): Status: Chronic (5) End of life care: Status: Acute Assessment and plan: continue hydromorphone 1mg/hr, w/bolus 0.5mg q15m PRN - increased from 0.5mg/hr this morning w/good effect; recommend monitoring bolus doses, increase basal rate if requiring more frequent bolus continue Ativan 1mg q1h PRN - w/good effect for restlessness/agitation; currently receiving around q2h - recommend Keppra d/c'd, monitor for seizure activity, if seizure activity, administer Ativan 1mg, notifiy hospitalist, continue Ativan 1mg q5m until seizure stopped - recommend d/c sertraline and metoprolol if family decision to taper to stop oxygen mask recommend: hydromorphone bolus prior to reduce 02L by 2L, monitor for 15m, repeat until oxygen d/c'd (6) Advance care planning: Assessment and plan: reviewed suspected life expectancy is hours to days reviewed consideration of taper to off oxygen, potential to hasten , would not increase suffering, would provide medications to keep comfortable. Family to think about this, no pressure to change anything, recommendation to consider reducing to stopping as a way of promoting natural , something Kiara feels Pineda would want. They are to contact nursing if they would like to trial taper, taper plan reviewed with nursing, as above provided support and reassurance to the excellent care that Kiara as provided Pineda for the years that palliative has been involved, honoring his life, preferences and fierce determination for survival. It has been an honor providing Pineda care. spent 20m w/ACP Review of Systems Narrative: as per HPI PFSH All Active Problems (Updated 09/19/24 @ 14:32 by Isha Mayo NP) End of life care (Acute) Comfort measures only status (Acute) RAIZA (acute kidney injury) (Acute) Elevated brain natriuretic peptide (BNP) level (Acute) Acute hypoxic respiratory failure (Acute) Pulmonary edema cardiac cause (Acute) Non-ST elevation [place] (NSTEMI) (Acute) Iron deficiency anemia (Chronic) GERD (gastroesophageal reflux disease) (Chronic) Laceration of scalp (Acute) Right subclavian artery occlusion (Acute) Leg pain (Acute) Tracheostomy in place (Acute) Occlusion of celiac artery (Acute) Urinary tract infection (Acute) Foreign body sensation, throat (Acute) Right clavicle fracture (Acute 08/30/23) Syncope (Chronic) Ground glass opacity present on imaging of lung (Acute) Subdural hematoma (Acute) Pulmonary edema (Acute) Fracture of thumb, left, closed (Acute) Acute non-ST elevation myocardial infarction (NSTEMI) (Acute) Arm pain (Acute) Hemoptysis (Acute) Nausea & vomiting (Acute) Regurgitation of food (Acute) Pulmonary embolism (Chronic) Uses feeding tube (Acute) Gross hematuria (Acute) Ambulatory dysfunction (Acute) Leukocytosis (leucocytosis) (Acute) UTI (urinary tract infection) (Acute) Multiple subsegmental pulmonary emboli without acute cor pulmonale (Acute) C1 cervical fracture (Acute) Gastrostomy tube dysfunction (Acute) Encounter for hospice care discussion (Acute) Unintentional weight loss of 10% body weight within 6 months (Acute) Dysuria (Acute) Malfunctioning jejunostomy tube (Acute) Need for follow-up by protective services social worker (Acute) Dysphagia (Acute) Impaired instrumental activities of daily living (Acute) Plantar fascial fibromatosis (Acute) Feeding tube dysfunction (Acute) Sensorineural hearing loss (SNHL) of both ears (Acute) Otalgia of right ear (Acute) Neck pain on right side (Acute) Neck pain on right side (Acute) Full code status (Acute) Need for home health care (Acute) MRSA pneumonia (Acute) pt likely colonized Occlusion of right vertebral artery (Acute) Hypoxemia (Acute) Complication of feeding tube (Acute) Peripheral neuropathy (Acute 02/21/15) PAOD (peripheral arterial occlusive disease) (Acute) Laryngeal cancer (Chronic) COPD (chronic obstructive pulmonary disease) (Chronic) 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 (Acute) Compression fracture of thoracolumbar vertebra (Acute) Dependence on supplemental oxygen (Chronic) Medical History On deep vein thrombosis (DVT) prophylaxis Recurrent syncope Laceration of occipital region of scalp Fall Orthostatic hypotension Palliative care patient Caregiver stress Advance care planning Weakness G tube feedings 20F 3.0cm 11/30/22. Routine change every 4 months. 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 Hypertension Tobacco use COPD (chronic obstructive pulmonary disease) Post herpetic neuralgia Hypothyroidism Hyperlipemia Depression Anxiety Conjunctivitis, chronic Surgical History S/P AAA (abdominal aortic aneurysm) repair Status post laryngectomy History of esophagogastroduodenoscopy (EGD) (~08/10/19) Daron Casper APRN @ [facility]: hiatal hernia, GERD, Reyes's esophagitis, neuromuscular dysfunction History of laryngectomy Status post cardiac catheterization Status post cataract extraction and insertion of intraocular lens of right eye (07/12/18) History of tarsorrhaphy Status post cataract extraction and insertion of intraocular lens of left eye (04/30/12) 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) Sin-mullins button placed by Dr Elia Mcdonald, [facility] PROCEDURES RT/LEFT HEART CARD CATH COMPLETE LARYNGECTOMY Esophagoplasty EGD - MAC (07/06/17) Colonoscopy - MAC (12/22/16) History of radical laryngectomy Family History Nephew Throat cancer Maternal Cousin Cancer Social History Smoking/Tobacco Use Status: Former Tobacco Use Quit Date: 04/23/13 Tobacco: How many years used: 20 Smoking risk assessment performed?: Yes Alcohol Intake: never Drug use: Never Substance use type: does not use Housing: detention Current gender identity: male Do you feel safe at home: Yes Do you feel safe in your relationship?: Yes Additional Social history: Lives with partner/caregiver Kiara caraballo in [place] Exam Narrative Exam Narrative: General: older adult, chronically and acutely ill/frail appearing; does not wake to light touch or voice volume; no twitching/restlessness; no grimace or groan HEENT: normocephalic, hearing grossly WNL; edentulous; mask covering trach stoma; pale; face w/dampness Resp: apnea, periods 20+ noted, no periods of rapid resp; unlabored; mask over trach at 6L; Ext: BUE/BLE warm, 1+ pulses, color WNL Results Last Vital Signs Temp 97.9 F 09/18/24 08:15 Pulse 79 09/18/24 12:01 Resp 14 09/18/24 12:01 BP 122/73 09/18/24 12:01 Pulse Ox 90 L 09/18/24 15:16 Labs 09/18/24 01:46 09/18/24 01:46 Time Spent Time Spent with Patient Time Spent(min): 60
--- NOTE | 2024-09-20 06:47 | W.PM.DDS ---
Date of service: 09/20/24 Time of Service: 06:47 Discharge Plan Disposition Patient Disposition: Discharge Details Reason For Visit: Acute Hypoxic Respiratory Failure Admit Date/Time: 09/18/24 05:43 Admit Provider: Abelardo Zamorano Attending Provider: Abelardo Zamorano Primary Care Provider: Nazia Chan Hospital Course Hospital Course: This is a 79-year-old male patient who had recurrent hospitalization for pneumonia and infection and a decline with end-stage lung disease (see multiple recent admission H&P and discharge summaries as well as imaging and lab reports). He had a history of laryngeal cancer and did have tracheostomy which was functioning. This disease was not active at the time of his status post treatment. Did have bilateral pneumonia which was not clearing and did require intubation with mechanical ventilation which he was desiring initially when discussing CODE STATUS. Family meeting at this hospitalization with the patient not responding well to antibiotic therapy and on mechanical ventilation with altered mental status resulted and patient removed from mechanical ventilation and placed on TELEVISION REPAIRER care. He quietly with his family at bedside at 04:10 and with pronounced at 04:13. He did appear comfortable according to nursing staff. He was pronounced by the nurse. Discharge Data Cause of : Pneumonia Discharge Date/Time-TO BE ENTERED AT DEPARTURE: 09/20/24 05:50 Discharge Sum: Prov Provider Primary care physician: Nazia Chan Admitting clinician: Abelardo Zamorano Attending physician on admission: Abelardo Zamorano Consults: 09/18/24 10:29 Machine Accountant Consult [CONS] Routine Consultation Status:: Follow-up needed Clarification:: Manage/follow per spec. Reason for consult:: patient known to automatic mold sander, now transitioning to TELEVISION REPAIRER 09/19/24 15:16 Palliative Care Consult [CONS] Routine Consultation Status:: Contact made by MD Clarification:: Manage/follow per spec. Reason for consult:: palliative patient now TELEVISION REPAIRER Pronouncing clinician: Jhonny Grant Discharge Sum: Diag Contributing Factors (1) Comfort measures only status: (2) Tracheostomy in place: (3) Uses feeding tube: (4) COPD (chronic obstructive pulmonary disease): (5) End of life care: (6) Advance care planning: Discharge Sum: Summary Date and Time Admission Date: 09/18/24 Date of : 09/20/24 Time of : 04:13 Summary Details: See hospital summary. Additional Data Confirmation of as documented by pronouncing clinician: no pulse, no respirations, no heart sounds and pupils fixed and dilated Family: at bedside Attending/PCP notified?: No Attending Physician: Nazia Chan Was code activated?: No Autopsy requested?: No workers' compensation claims examiner notified?: No Organ bank notified?: Yes Advance directives: Yes Hospice patient?: No
== END 2024-09-20 05:50 | disposition expired | DRG 208 ==
LOC: ER 05:54 → ICU 08:35 → MS 15:52
PROVIDERS: Admitting Provider Student in an Organized Health Care Education/Training Program; Emergency Provider Emergency Medicine; PCP Physician Assistant Medical; Referring Provider Family Medicine; Responsible Provider Family Medicine; Visit Provider Student in an Organized Health Care Education/Training Program
DX: J18.9 Pneumonia, unspecified organism; I21.A1 Myocardial infarction type 2; I62.03 Nontraumatic chronic subdural hemorrhage; J96.21 Acute and chronic respiratory failure with hypoxia; N17.9 Acute kidney failure, unspecified; Z51.5 Encounter for palliative care; Z93.0 Tracheostomy status; J43.1 Panlobular emphysema; Z66 Do not resuscitate; I45.10 Unspecified right bundle-branch block; E86.0 Dehydration; D50.9 Iron deficiency anemia, unspecified; K21.9 Gastro-esophageal reflux disease without esophagitis; I70.8 Atherosclerosis of other arteries; Z86.711 Personal history of pulmonary embolism; Z93.1 Gastrostomy status; Z85.21 Personal history of malignant neoplasm of larynx; G62.9 Polyneuropathy, unspecified; H90.3 Sensorineural hearing loss, bilateral; Z99.81 Dependence on supplemental oxygen; I25.10 Atherosclerotic heart disease of native coronary artery without angina pectoris; R49.1 Aphonia; Z90.02 Acquired absence of larynx
CPT/HCPCS: 00123; 31500; 36415; 80048; 82805; 87040; 87637; 93005; 94640; 96365; 96366; 96367; 99291; 71045; 83880; 84484; 85025; 85730; 93010; 94002; 99223; 99232; J1171; J1941; J2060; J2543; J3370; J7613